=== PATIENT | male | born 1950 | race Caucasian/White ===

== ENCOUNTER → 2018-06-09 09:37 | Outpatient (CLI) | payer MEDICARE, OTHER, SELFPAY ==
[2018-06-08 09:40] VITALS: BMI 28.7
[2018-06-09 12:15] LABS: PSA,Total - Annual Screen 1.77 ng/mL (0.00-4.00)
--- OUTSIDE RECORDS SUMMARY | 2018-07-26 03:29 | XMS RPT_ITS ---
:1950 Author Organization OHIP Support Name Relationship Address Phone MEG, MELIUSSA Unavailable Unavailable + [place] [address] ABDIAZIZ, TERRY Unavailable Unavailable + [place] [address] [address] Un[address] + [place] [address] MEG, MELIUSSA Unavailable Unavailable + [place] [address] ABDIAZIZ, TERRY Unavailable Unavailable + [place] [address] [employer] Un[address] + [place] [address] MEG, MELIUSSA Unavailable Unavailable + [place] [address] ABDIAZIZ, TERRY Unavailable Unavailable + [place] [address] [employer] Un[address] + [place] [address] MEG, MELIUSSA Unavailable Unavailable + [place] [address] ABDIAZIZ, TERRY Unavailable Unavailable + [place] [address] [employer] Unavailable [address] + [place] [address] MEG, MELIUSSA Unavailable . + ., [place] . ABDIAZIZ, TERRY Unavailable . + ., [place] . [employer] Unavailable [address] + [place] [address] LUCIA PADGETT Unavailable [address] + [place] [address] [employer] Unavailable [address] + [place] [address] ABDIAZIZLUCIA PIZARRO Unavailable [address] + [place] [address] [employer] Unavailable [address] + [place] [address] Care Team Providers Name Role Phone COLBY GARCIA Attending Unavailable ROLO SCOTT Attending Unavailable Nohemy Foley Attending Unavailable Moustapha, Trenton Attending Unavailable Manjeet Jarrell Referring Unavailable Therese Maravilla Attending Unavailable Therese Maravilla Referring Unavailable Talampas, Colby Primary Care Unavailable Moustapha, Trenton Attending Unavailable Moustapha, Beattie Referring Unavailable Talampas, Colby Primary Care Unavailable Moustapha, Trenton Attending Unavailable Moustapha, Trenton Referring Unavailable Talampas, Colby Primary Care Unavailable WendiStoney vidal Attending Unavailable WendiStoney vidal Referring Unavailable Talampas, Colby Primary Care Unavailable Nolt, Sierra Attending Unavailable PROBLEMS PROBLEMS DATE TYPE CONDITION / CODE ATTENDING STATUS SOURCE 06/08/2018 Unknown R06.02 - Shortness Moustapha, Trenton Active [facility] of breath / Community R06.02(ICD-10) Hospital Repository 06/08/2018 Unknown 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, 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 7835-4077 Season Patient is identified by name and date of : Yes [] CONTRAINDICATIONS color enhanced section Age less than 6 months? No Allergy to eggs, chicken, chicken feathers, or chicken dander? No Allergy to thimerosal (a preservative) or formaldehyde, gelatin? No History of severe reaction to any vaccine component or a previous dose of influenza vaccination? No History of Guillain-Macon Syndrome within 6 weeks after a previous influenza vaccine? No Patient is not moderately or severely ill? No Current temperature greater or equal to 100.4F? No History of Bone Marrow Transplant prior 6 months or solid organ transplant in the past 3 months ? No History of fainting after a prior injection or medical procedure? No- ? If patient has fainted in the past, the CDC recommends sitting or lying down for 15 minutes after the vaccination. [] VERIFICATION color enhanced section Was the answer Yes for any of the above contraindications? No contraindications present. Acceptable to proceed with vaccine. Patient/guardian agrees the above answers are true to the best of their knowledge? Yes Flu vaccine information sheet given? Yes See immunization activity in [facility] for details of immunizations adminstered today. Patient age: [age] year old For The 4070-0498 Flu Season 6-35 months old: Fluzone 0.25 ml - IM (Preservative Free) 3 years of age: Fluzone 0.5 ml - IM (Preservative Free) 3 years and older: Fluzone 0.5 ml- IM-(with Preservatives) 65+ years old: 2-49 years old Fluzone High-Dose 0.5 ml - IM (Preservative Free) FLUMIST- intranasal REMEMBER: If patient is less than 9 years of age and this is the first vaccine of Influenza to be received in any flu season, they should receive a second dose in one months time. PROGRESS Observed: 06/24/2018 Status: COMPLETED Source: [facility] 2:45 PM [facility] [place] REPOSITORY HNO ID: [id number] Author: Colby Garcia Service: (none) Author Type: Physician Type: Progress Notes Filed: 07/17/2018 9:16 PM Note Text: HISTORY Alexandria Padgett is a 68 year old gentleman here to be formally established with me. PCP was Dr. Scott/FP. Dr. Davis--urology--planning on doing Urolift Nocturia at least 2 to 3 times a night. Stress test 07/[address] Gerard. Has noted lightheadedness after gets up to urinate after reclining. Also some MCCONNELL but transient. Getting over cold symptoms now. Cough--still some rattling in upper back. Has deviated septum--hard to breathe at night. Flonase OTC helps. Checks sugars every 2 to 3 days. Running 120 to 125 in AM. Burning pain in feet if sugars high but still less than 200. PAST MEDICAL HISTORY Diagnosis Date - Allergic rhinitis due to other allergen - Basal cell carcinoma Shoulder - Other and unspecified hyperlipidemia - Type II or unspecified type diabetes mellitus without mention of complication, not stated as uncontrolled Current Outpatient Prescriptions: blood sugar diagnostic (FREESTYLE LITE STRIPS) test strip NEW Butterfly Strips. Test blood sugar(s) 1 times daily. E11.9-type 2 diabetes mellitus, no insulin Lancets (ACCU-CHEK MULTICLIX LANCET) lancets check blood sugar as directed every other day 250.00 Non Insulin dependent lisinopril (PRINIVIL) 5 mg tablet Take 1 tablet by mouth once daily. metFORMIN (GLUCOPHAGE) 1,000 mg tablet Take 1 tab by mouth in am and 1/2 tablet in evening. sildenafil (REVATIO) 20 mg tablet For erectile dysfunction. take 1-2 tablets by mouth 1 hour prior to anticipated intercourse. fluticasone (FLONASE) 50 mcg/actuation nasal spray Use 2 Sprays in each nostril once daily. Rinse mouth after use. LORATADINE (CLARITIN ORAL) Take by mouth. multivitamins(DAILY MULTIPLE TAB) Take one(1) tablet daily. No current facility-administered medications for this visit. ALLERGIES Allergen Reactions - Penicillins Rash PAST SURGICAL HISTORY Procedure Laterality Date - COLONOSCOP W/ OR W/O [facility] SPEC 01/19/2014 Colonoscopy - EGD W/O OR W/BRUSH/WASH 04/19/14 EGD - PAST SURGICAL HISTORY OF ~1989 Sinus tumor (benign) R max. Visual impairment. 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 PHYSICAL EXAMINATION: Blood pressure 110/70, pulse 80, temperature 37.1 ?C (98.8 ?F), temperature source Tympanic, resp. rate 20, weight 93.4 kg (206 lb). Body mass index is 28.73 kg/m?. Last 5 Encounter BP Readings: Date: BP: 06/24/2018 110/70 10/08/2017 105/64 12/18/2016 121/76 09/17/2016 116/74 08/21/2016 144/88 Last 5 Encounter Wt Readings: Date: Wt: 06/24/2018 93.4 kg (206 lb) 10/08/2017 93 kg (205 lb) 12/18/2016 92.1 kg (203 lb) 09/17/2016 92.7 kg (204 lb 6.4 oz) 08/21/2016 90.7 kg (200 lb) General appearance: well appearing, in no acute distress, well-hydrated, well nourished Skin: Skin color, texture, turgor normal. No significant rashes or lesions. Head: Normal Eyes: Anicteric sclera. Pupils are equally round and reactive to light. Extraocular movements are intact. Ears: External ears normal. Canals clear. TM's unremarkable. Nose/Sinuses: negative Oropharynx: Lips, mucosa, and tongue normal. Teeth and gums normal. Oropharynx normal. Neck: Neck supple, no adenopathy; thyroid symmetric, normal size, no bruits. Lungs: Lungs clear to auscultation Heart: negative. RRR without murmur, gallop, or rubs. No ectopy. Abdomen: Abdomen soft, non-tender. Bowel sounds normal. No masses, organomegaly Extremities: Extremities normal. No deformities, edema, or skin discoloration. Good capillary refill. Musculoskeletal: grossly normal Peripheral pulses: Normal Neuro: Gait normal. Reflexes normal and symmetric. Sensation grossly intact. No gross focal neurological deficits. Feet:Shoes and socks removed, No deformities, ulcers, calluses, normal distal pulses and sensitive to 10 gm monofilament (though notes a little decreased at balls of feet) Component Latest Ref Rng AND Units 11/18/2015 12/24/2015 05/22/2016 12/15/2016 Glucose 74 - 99 mg/dL 123 (H) 126 (H) 119 (H) 131 (H) BUN 9 - 24 mg/dL 24 18 22 20 Creatinine 0.73 - 1.22 mg/dL 1.30 1.16 1.20 1.20 Sodium 136 - 144 mmol/L 130 (L) 135 139 136 Potassium 3.7 - 5.1 mmol/L 5.1 (H) 5.0 4.9 4.8 Chloride 97 - 105 mmol/L 95 (L) 100 100 100 CO2 22 - 30 mmol/L 24 24 25 23 Anion Gap 9 - 18 mmol/L 11 11 14 13 Calcium 8.5 - 10.2 mg/dL 9.2 9.4 9.3 9.5 eGFR- >60 >60 >60 >60 eGFR-All Other Races . 56 >60 >60 >60 Triglyceride 30 - 149 mg/dL 70 97 Cholesterol, Total 100 - 199 mg/dL 179 161 HDL Cholesterol >45 mg/dL 56 47 VLDL Cholesterol 6 - 40 mg/dL 14 19 LDL Cholesterol 60 - 129 mg/dL 109 95 Fasting Time hrs FASTING 11 TC:HDL Ratio 1.00 - 5.00 3.20 3.43 LDL:HDL Ratio 0.50 - 3.55 1.95 2.02 Non HDL Cholesterol 90 - 159 mg/dL 123 114 Creatinine, Ur Random (UCRR) 20 - 300 mg/dL 55.6 119.7 Albumin, Urine Random 0.0 - 23.0 mg/L 3.9 <12.0 Albumin/Creat Ratio 0 - 30 mg/g 7 Not calculated Hemoglobin A1C 4.3 - 5.6 % 5.8 (H) 6.3 (H) 5.7 (H) Estimated Average Glucose mg/dL 120 134 117 ASSESSMENT AND PLAN See diagnoses and orders Encounter Diagnosis ICD-10-CM 1. Controlled type 2 diabetes mellitus without complication, without long-term current use of insulin (HCC) E11.9 HGB A1C COMP METABOLIC PANEL ALBUMIN/CREAT RATIO RND UR HGB A1C BASIC METABOLIC PNL 2. Pure hypercholesterolemia E78.00 LIPID PANEL BASIC LIPID PANEL BASIC 3. Essential hypertension I10 COMP METABOLIC PANEL CBC BASIC METABOLIC PNL 4. 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 Need for vaccination Z23 INFLUENZA SEASONAL HIGH DOSE AGE 65+ 68 year old gentleman here to be formally established with me. History and medications reviewed. Epic updated as needed. Discussed procedure to be done by Dr. Davis. Will see cheese processor prior. Appears stable from medical issues for surgery. Noted 2017 labs done at [facility] showed good sugar control. Above issues addressed with patient. Patient involved in shared decision making for management of medical issues. Refills taken care of and meds adjusted as indicated after reviewed history, exam and labs. Health Maintenance reviewed. Updated record and/or ordered tests as recorded. Further evaluation and treatment as indicated. Encouraged on efforts at healthy diet and regular exercise and adequate sleep. Needs to keep working on diet and exercise with lifestyle changes for effective weight loss as well as control of DM, and control of BP and lipids. The majority of the visit was spent counseling and/or coordinating care for the patient. Tely-ei-uibz time was at least 45 minutes. Colby Garcia MD CNOV Observed: 06/24/2018 Status: COMPLETED Source: [place] 2:20 PM [facility] REPOSITORY Office Visit (INTMWS) ABDIAZIZALEXANDRIA Kraus ([id number]) 1950 M Date Time Provider Department 06/24/18 2:20 PM COLBY GARCIA INTMWS During your visit today, we recorded the following information about you: Temperature Pulse Respiration Blood pressure 98.8 degrees 80/minute 20/minute 110/70 Weight 93.4 kg Colby Garcia MD 07/17/2018 9:16 PM Signed HISTORY Alexandria Padgett is a 68 year old gentleman here to be formally established with me. PCP was Dr. Scott/BOBPrasanth Davis--urology--planning on doing Urolift Nocturia at least 2 to 3 times a night. Stress test 07/[address] Gerard. Has noted lightheadedness after gets up to urinate after reclining. Also some MCCONNELL but transient. Getting over cold symptoms now. Cough--still some rattling in upper back. Has deviated septum--hard to breathe at night. Flonase OTC helps. Checks sugars every 2 to 3 days. Running 120 to 125 in AM. Burning pain in feet if sugars high but still less than 200. PAST MEDICAL HISTORY Diagnosis Date - Allergic rhinitis due to other allergen - Basal cell carcinoma Shoulder - Other and unspecified hyperlipidemia - Type II or unspecified type diabetes mellitus without mention of complication, not stated as uncontrolled Current Outpatient Prescriptions: blood sugar diagnostic (FREESTYLE LITE STRIPS) test strip NEW Butterfly Strips. Test blood sugar(s) 1 times daily. E11.9-type 2 diabetes mellitus, no insulin Lancets (ACCU-CHEK MULTICLIX LANCET) lancets check blood sugar as directed every other day 250.00 Non Insulin dependent lisinopril (PRINIVIL) 5 mg tablet Take 1 tablet by mouth once daily. metFORMIN (GLUCOPHAGE) 1,000 mg tablet Take 1 tab by mouth in am and 1/2 tablet in evening. sildenafil (REVATIO) 20 mg tablet For erectile dysfunction. take 1-2 tablets by mouth 1 hour prior to anticipated intercourse. fluticasone (FLONASE) 50 mcg/actuation nasal spray Use 2 Sprays in each nostril once daily. Rinse mouth after use. LORATADINE (CLARITIN ORAL) Take by mouth. multivitamins(DAILY MULTIPLE TAB) Take one(1) tablet daily. No current facility-administered medications for this visit. ALLERGIES Allergen Reactions - Penicillins Rash PAST SURGICAL HISTORY Procedure Laterality Date - COLONOSCOP W/ OR W/O [facility] SPEC 01/19/2014 Colonoscopy - EGD W/O OR W/BRUSH/WASH 04/19/14 EGD - PAST SURGICAL HISTORY OF ~1989 Sinus tumor (benign) R max. Visual impairment. 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 PHYSICAL EXAMINATION: Blood pressure 110/70, pulse 80, temperature 37.1 ?C (98.8 ?F), temperature source Tympanic, resp. rate 20, weight 93.4 kg (206 lb). Body mass index is 28.73 kg/m?. Last 5 Encounter BP Readings: Date: BP: 06/24/2018 110/70 10/08/2017 105/64 12/18/2016 121/76 09/17/2016 116/74 08/21/2016 144/88 Last 5 Encounter Wt Readings: Date: Wt: 06/24/2018 93.4 kg (206 lb) 10/08/2017 93 kg (205 lb) 12/18/2016 92.1 kg (203 lb) 09/17/2016 92.7 kg (204 lb 6.4 oz) 08/21/2016 90.7 kg (200 lb) General appearance: well appearing, in no acute distress, well-hydrated, well nourished Skin: Skin color, texture, turgor normal. No significant rashes or lesions. Head: Normal Eyes: Anicteric sclera. Pupils are equally round and reactive to light. Extraocular movements are intact. Ears: External ears normal. Canals clear. TM's unremarkable. Nose/Sinuses: negative Oropharynx: Lips, mucosa, and tongue normal. Teeth and gums normal. Oropharynx normal. Neck: Neck supple, no adenopathy; thyroid symmetric, normal size, no bruits. Lungs: Lungs clear to auscultation Heart: negative. RRR without murmur, gallop, or rubs. No ectopy. Abdomen: Abdomen soft, non-tender. Bowel sounds normal. No masses, organomegaly Extremities: Extremities normal. No deformities, edema, or skin discoloration. Good capillary refill. Musculoskeletal: grossly normal Peripheral pulses: Normal Neuro: Gait normal. Reflexes normal and symmetric. Sensation grossly intact. No gross focal neurological deficits. Feet:Shoes and socks removed, No deformities, ulcers, calluses, normal distal pulses and sensitive to 10 gm monofilament (though notes a little decreased at balls of feet) Component Latest Ref Rng AND Units 11/18/2015 12/24/2015 05/22/2016 12/15/2016 Glucose 74 - 99 mg/dL 123 (H) 126 (H) 119 (H) 131 (H) BUN 9 - 24 mg/dL 24 18 22 20 Creatinine 0.73 - 1.22 mg/dL 1.30 1.16 1.20 1.20 Sodium 136 - 144 mmol/L 130 (L) 135 139 136 Potassium 3.7 - 5.1 mmol/L 5.1 (H) 5.0 4.9 4.8 Chloride 97 - 105 mmol/L 95 (L) 100 100 100 CO2 22 - 30 mmol/L 24 24 25 23 Anion Gap 9 - 18 mmol/L 11 11 14 13 Calcium 8.5 - 10.2 mg/dL 9.2 9.4 9.3 9.5 eGFR- >60 >60 >60 >60 eGFR-All Other Races . 56 >60 >60 >60 Triglyceride 30 - 149 mg/dL 70 97 Cholesterol, Total 100 - 199 mg/dL 179 161 HDL Cholesterol >45 mg/dL 56 47 VLDL Cholesterol 6 - 40 mg/dL 14 19 LDL Cholesterol 60 - 129 mg/dL 109 95 Fasting Time hrs FASTING 11 TC:HDL Ratio 1.00 - 5.00 3.20 3.43 LDL:HDL Ratio 0.50 - 3.55 1.95 2.02 Non HDL Cholesterol 90 - 159 mg/dL 123 114 Creatinine, Ur Random (UCRR) 20 - 300 mg/dL 55.6 119.7 Albumin, Urine Random 0.0 - 23.0 mg/L 3.9 <12.0 Albumin/Creat Ratio 0 - 30 mg/g 7 Not calculated Hemoglobin A1C 4.3 - 5.6 % 5.8 (H) 6.3 (H) 5.7 (H) Estimated Average Glucose mg/dL 120 134 117 ASSESSMENT AND PLAN See diagnoses and orders Encounter Diagnosis ICD-10-CM 1. Controlled type 2 diabetes mellitus without complication, without long-term current use of insulin (HCC) E11.9 HGB A1C COMP METABOLIC PANEL ALBUMIN/CREAT RATIO RND UR HGB A1C BASIC METABOLIC PNL 2. Pure hypercholesterolemia E78.00 LIPID PANEL BASIC LIPID PANEL BASIC 3. Essential hypertension I10 COMP METABOLIC PANEL CBC BASIC METABOLIC PNL 4. 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 Need for vaccination Z23 INFLUENZA SEASONAL HIGH DOSE AGE 65+ 68 year old gentleman here to be formally established with me. History and medications reviewed. Epic updated as needed. Discussed procedure to be done by Dr. Davis. Will see cheese processor prior. Appears stable from medical issues for surgery. Noted 2017 labs done at [facility] showed good sugar control. Above issues addressed with patient. Patient involved in shared decision making for management of medical issues. Refills taken care of and meds adjusted as indicated after reviewed history, exam and labs. Health Maintenance reviewed. Updated record and/or ordered tests as recorded. Further evaluation and treatment as indicated. Encouraged on efforts at healthy diet and regular exercise and adequate sleep. Needs to keep working on diet and exercise with lifestyle changes for effective weight loss as well as control of DM, and control of BP and lipids. The majority of the visit was spent counseling and/or coordinating care for the patient. Uzyu-so-csyv time was at least 45 minutes. MD Shelli Cortes LPN 07/17/2018 9:16 PM Signed 68 year old male here for INACTIVATED INFLUENZA VACCINE. 6891-3338 Season Patient is identified by name and date of : Yes [] CONTRAINDICATIONS color enhanced section Age less than 6 months? No Allergy to eggs, chicken, chicken feathers, or chicken dander? No Allergy to thimerosal (a preservative) or formaldehyde, gelatin? No History of severe reaction to any vaccine component or a previous dose of influenza vaccination? No History of Guillain-Macon Syndrome within 6 weeks after a previous influenza vaccine? No Patient is not moderately or severely ill? No Current temperature greater or equal to 100.4F? No History of Bone Marrow Transplant prior 6 months or solid organ transplant in the past 3 months ? No History of fainting after a prior injection or medical procedure? No- ? If patient has fainted in the past, the CDC recommends sitting or lying down for 15 minutes after the vaccination. [] VERIFICATION color enhanced section Was the answer Yes for any of the above contraindications? No contraindications present. Acceptable to proceed with vaccine. Patient/guardian agrees the above answers are true to the best of their knowledge? Yes Flu vaccine information sheet given? Yes See immunization activity in [facility] for details of immunizations adminstered today. Patient age: [age] year old For The 8420-0755 Flu Season 6-35 months old: Fluzone 0.25 ml - IM (Preservative Free) 3 years of age: Fluzone 0.5 ml - IM (Preservative Free) 3 years and older: Fluzone 0.5 ml- IM-(with Preservatives) 65+ years old: 2-49 years old Fluzone High-Dose 0.5 ml - IM (Preservative Free) FLUMIST- intranasal REMEMBER: If patient is less than 9 years of age and this is the first vaccine of Influenza to be received in any flu season, they should receive a second dose in one months time. Referring Provider: SELF [200] Allergies As of Date: 06/24/2018 Noted Allergy Reaction PENICILLINS 11/18/2005 2 - Rash Date Reviewed: 06/24/2018 Reviewed by: Shelli Fountain LPN - Fully Assessed Reason for Visit: Imm/Inj [58] Cmt: Flu Vaccine Primary Visit Diagnosis:Controlled type 2 diabetes mellitus without complication, without long-term current use of insulin (HCC) [E11.9] Other Visit Diagnoses:Pure hypercholesterolemia [E78.00] Essential hypertension [I10] BPH with obstruction/lower urinary tract symptoms [N40.1, N13.8] Need for vaccination [Z23] Order(s):HGB A1C [XEFHZ0K] Order #: [id number] FUTURE COMP METABOLIC PANEL [SQCMP] Order #: [id number] FUTURE CBC [SQCBC] Order #: [id number] FUTURE LIPID PANEL BASIC [SQLIPB] Order #: [id number] FUTURE ALBUMIN/CREAT RATIO RND UR [SQUACR] Order #: [id number] FUTURE fluticasone (FLONASE) 50 mcg/actuation nasal sprayUse 2 Sprays in each nostril once daily. Rinse mouth after use.Disp: 3 BottleRfl: 3 sildenafil (REVATIO) 20 mg tabletFor erectile dysfunction. take 1-2 tablets by mouth 1 hour prior to anticipated intercourse.Disp: 60 tabletRfl: 5 HGB A1C [JIHLD0S] Order #: [id number] FUTURE BASIC METABOLIC PNL [SQBMP] Order #: [id number] FUTURE LIPID PANEL BASIC [SQLIPB] Order #: [id number] FUTURE INFLUENZA SEASONAL HIGH DOSE AGE 65+ [[id number]] Order #: [id number] Prescriptions as of 06/24/2018 Sig: SILDENAFIL (ANTIHYPERTENSIVE)* For erectile dysfunction. chan* LISINOPRIL 5 MG TABLET Take 1 tablet by mouth once d* METFORMIN 1,000 MG TABLET Take 1 tab by mouth in am and* BLOOD SUGAR DIAGNOSTIC STRIPS NEW Butterfly Strips. Jeni* LANCETS check blood sugar as directed* FLUTICASONE 50 MCG/ACTUATION * Use 2 Sprays in each nostril * CLARITIN ORAL Take by mouth. DAILY MULTIPLE TABLET Take one(1) tablet daily. Medication notes this encounter DIAZEPAM 5 MG TABLET >> Colby Garcia MD 06/24/2018 3:08 PM done for procedure Problem List As Of Date 06/24/2018 Noted Resolved Controlled type 2 diabetes mellitus without com* More... Pure hypercholesterolemia [E78.00] ALLERGIC RHINITIS NEC [J30.89] Hypertension [I10] INVALID FOR* Erectile dysfunction [N52.9] INVALID FOR* Spondylolisthesis [M43.10] INVALID FOR* Low back pain [M54.5] INVALID FOR* Prescriptions ordered this encounter Disp Refills Start End FLUTICASONE 50 MCG/ACTUATION NASAL S* 3 Leonard* 3 06/24/2018 Route: EACH NOSTRIL Sig: Use 2 Sprays in each nostril once daily. Rinse mouth after use. SILDENAFIL (ANTIHYPERTENSIVE) 20 MG * 60 t* 5 06/24/2018 Sig: For erectile dysfunction. take 1-2 tablets by mouth 1 hour prior to anticipated intercourse. Medications Discontinued During This Encounter sildenafil, antihypertensive, (REVAT* 60 t* 2 01/07/2018 06/24/2018 Sig: For erectile dysfunction. take 1-2 tablets by mouth 1 hour prior to anticipated intercourse. Disc: Reason for discontinue is not on file. diazePAM (VALIUM) 5 mg tablet 2 ta* 0 08/18/2016 06/24/2018 Class: Call Rx Route: ORAL Sig: Take 1-2 tablets by mouth once daily. Disc: Reason for discontinue is not on file. Encounter Status:Closed by COLBY GARCIA MD on 07/17/18 CARDIOLOGY VISIT Observed: 06/16/2018 Status: F Source: [place] RE[place] 7:35 AM [facility] REPOSITORY [facility] [address] [place] [address] OFFICE VISIT Date of Service: MR#: [id number] Acct: [id number] Name: ALEXANDRIA PADGETT Rep #: [id number] : 1950 Provider: Nohemy Foley Age/Sex: 68/M Location: [facility] Status: Signed HPI HPI Details: ALEXANDRIA PADGETT, is a 68 M who presents to the office today for Intake Intake Visit Reasons: Amb Documentation Allergies Penicillins Allergy (Intermediate, Verified 06/08/18 08:13) Rash Medications blood sugar diagnostic strips See Dose Instructions .ROUTE .MEDSUPPLY #10 ea 06/02/18 [History Confirmed 06/08/18] diazepam 5 mg tablet 5 mg PO .COMPLEX tab 06/02/18 [History Confirmed 06/08/18] lancets See Dose Instructions .ROUTE .MEDSUPPLY #50 ea 06/02/18 [History Confirmed 06/08/18] lisinopril 5 mg tablet 5 mg PO DAILY 06/02/18 [History Confirmed 06/08/18] metformin 1,000 mg tablet 1,000 mg PO .COMPLEX 06/02/18 [History Confirmed 06/08/18] multivitamin tablet 1 tab PO DAILY 06/02/18 [History Confirmed 06/08/18] tadalafil 5 mg tablet 5 mg PO DAILY 06/02/18 [History Confirmed 06/08/18] PENDING SALE TO [facility] Medical History Right bundle branch block (Chronic) Essential hypertension (Chronic) Pure hypercholesterolemia (Chronic) Allergic rhinitis due to other allergen (Chronic) Erectile dysfunction (Chronic) Spondylolisthesis (Chronic) Type 2 diabetes mellitus (Chronic) History of basal cell carcinoma (Resolved) Surgical History History of colonoscopy (Resolved 01/19/14) History of esophagogastroduodenoscopy (EGD) (Resolved 04/19/14) History of sinus surgery (Resolved 1989) Family History Mother Cancer breast Father Cancer leukemia Social History Smoking Status: Never smoker alcohol intake: current alcohol intake frequency: other details: occasionally ROS Const Const: Negative for fatigue, weakness, difficulty sleeping, frequent falls, excessive sweating or headache(s) Eyes Eyes: Negative for loss of peripheral vision, transient loss of vision, blurry vision, tunnel vision or double vision ENT ENT: Negative for headache(s), dizziness, Nosebleed/epistaxis or balance problems Cardio Chest Pain: No Palpitations: No Edema: None Muscle aches with walking: None Resp Respiratory: Negative for SOB with activity, SOB at rest, SOB orthopnea\SOB lying down, paroxysmal nocturnal dyspnea or Cough GI GI: Negative nausea, heartburn, black,tarry stools or vomiting : Negative for hematuria Musc Musc: Negative for balance problems, muscle aches/ myalgia, muscle weakness or joint pain Skin Skin: Negative non-healing lesions, unusual bruising or rash Neuro Neuro: Negative for weakness, frequent falls, headache(s), blurry vision, double vision, dizziness, lightheadedness, orthostatic symptoms, near syncope, syncope or lack of coordination Dwight Hematologic/Lymphatic: Negative for easy bruising or easy bleeding Endo Endo: Negative for fatigue, excessive sweating or increased thirst/drinking Psych Psych: Negative for anxiety or depression Allergy Allergy/Immunology: Negative for hives, Negative for rash Coding Level of Care Code No Charge Coding Level of Care Code No Charge 06/16/18 8335 <Electronically signed by Trenton Gerard MD> Date Trenton Gerard MD Cosigner Signature: Date (if applicable) CC: Akosua Scott MD PSA,TOTAL - ANNUAL Collected: 06/09/2018 Status: F Source: [place] SCREEN 9:46 AM [facility] REPOSITORY TYPE CODE TESTS RESULT OUT OF RANGE REFERENCE UNITS LAB L501.9910 0.00-4.00 ng/mL Normal PSA,TOT 1.77 SCREEN Result Comment: This test was performed using the TPSA assay method for the Ufree chemistry system. Values obtained with different assay methods cannot be used interchangably. When changing PSA assays in the course of monitoring a patient, additional sequential testing should be carried out to confirm baseline values. Performed By: #### L501.9910 #### [facility] [address] [place], [address] CARDIOLOGY VISIT Observed: 06/08/2018 Status: F Source: [place] RE[place] 10:05 AM [facility] REPOSITORY [facility] [address] [place] [address] OFFICE VISIT Date of Service: 06/08/18 MR#: [id number] Acct: [id number] Name: ALEXANDRIA PADGETT Rep #: [id number] : 1950 Provider: Trenton Gerard MD Age/Sex: 68/M Location: [facility] [place] [place] Status: Signed HPI HPI Chief Complaint: Initial visit Details: ALEXANDRIA PADGETT, is a 68 M who presents to the office today for an initial evaluation and to evaluate his right bundle branch block. He has a history of hypertension, diabetes mellitus, hyperlipidemia, and a chronic right bundle branch block. He has no cardiac symptoms other than occasional shortness of breath when he gets up and goes up a flight of stairs. At this is not most of the time but it happens occasionally. He has had no dizziness or diaphoresis no near syncope or syncope. He has been compliant with his medications. An electrocardiogram which was done in September of this year demonstrates normal sinus rhythm with a leftward axis and a right bundle branch block. His physical exam here today demonstrates clear lung shields regular rate and rhythm and no pedal edema. His most recent lipid profile demonstrated a total cholesterol 161, HDL 47 and LDL of 95. Intake Vital Signs06/08/18 Height 5 ft 11 in 06/08/18 Weight: 206 lb 06/08/18 Body Mass Index (BMI) 28.7 06/08/18 Blood Pressure 120/78 06/08/18 Respiratory Rate 16 06/08/18 Pulse Rate 68 Intake Visit Reasons: self ref-d for right BBB Allergies Penicillins Allergy (Intermediate, Verified 06/08/18 08:13) Rash Medications blood sugar diagnostic strips See Dose Instructions .ROUTE .MEDSUPPLY #10 ea 06/02/18 [History Confirmed 06/08/18] diazepam 5 mg tablet 5 mg PO .COMPLEX tab 06/02/18 [History Confirmed 06/08/18] lancets See Dose Instructions .ROUTE .MEDSUPPLY #50 ea 06/02/18 [History Confirmed 06/08/18] lisinopril 5 mg tablet 5 mg PO DAILY 06/02/18 [History Confirmed 06/08/18] metformin 1,000 mg tablet 1,000 mg PO .COMPLEX 06/02/18 [History Confirmed 06/08/18] multivitamin tablet 1 tab PO DAILY 06/02/18 [History Confirmed 06/08/18] tadalafil 5 mg tablet 5 mg PO DAILY 06/02/18 [History Confirmed 06/08/18] PENDING SALE TO [facility] Medical History Right bundle branch block (Chronic) Essential hypertension (Chronic) Pure hypercholesterolemia (Chronic) Type 2 diabetes mellitus (Chronic) Allergic rhinitis due to other allergen (Chronic) Erectile dysfunction (Chronic) Spondylolisthesis (Chronic) History of basal cell carcinoma (Resolved) Surgical History History of colonoscopy (Resolved 01/19/14) History of esophagogastroduodenoscopy (EGD) (Resolved 04/19/14) History of sinus surgery (Resolved 1989) Family History Mother Cancer breast Father Cancer leukemia Social History Smoking Status: Never smoker alcohol intake: current alcohol intake frequency: other details: occasionally ROS Const Const: Negative for fatigue, weakness, difficulty sleeping, frequent falls, excessive sweating or headache(s) Eyes Eyes: Negative for loss of peripheral vision, transient loss of vision, blurry vision, tunnel vision or double vision ENT ENT: Negative for headache(s), dizziness, Nosebleed/epistaxis or balance problems Cardio Chest Pain: No Palpitations: No Edema: None Muscle aches with walking: None Resp Respiratory: Positive for SOB with activity (When climbing stairs); negative for SOB at rest, SOB orthopnea\SOB lying down, paroxysmal nocturnal dyspnea or Cough GI GI: Negative nausea, heartburn, black,tarry stools or vomiting : Negative for hematuria Musc Musc: Negative for balance problems, muscle aches/ myalgia, muscle weakness or joint pain Skin Skin: Negative non-healing lesions, unusual bruising or rash Neuro Neuro: Positive for orthostatic symptoms; negative for weakness, frequent falls, headache(s), blurry vision, double vision, dizziness, lightheadedness, near syncope, syncope or lack of coordination Dwight Hematologic/Lymphatic: Negative for easy bruising or easy bleeding Endo Endo: Negative for fatigue, excessive sweating or increased thirst/drinking Psych Psych: Negative for anxiety or depression Allergy Allergy/Immunology: Negative for hives, Negative for rash Cardiology Exam Const Appearance: cooperative, healthy appearing, well developed, well groomed and no acute distress Nutritional Appearance: well nourished and average body habitus Orientation: alert, awake and oriented x3 Head Head: normal to inspection, normocephalic and atraumatic Ears: hearing grossly normal bilaterally and external ears normal Nose: external nose normal, nasal mucous membranes and turbinates normal, nares normal, septum normal, no nasal discharge Face and Sinus: face symmetric Mouth: oral mucosae normal, tongue normal, oropharynx normal and moist mucous membranes Teeth and gingiva: dentition normal Throat: posterior oropharynx normal, tonsils normal and uvula midline Eyes General: appearance normal, both eyes and all related structures Eyelids: eyelids normal Conjunctivae: conjunctivae normal Pupils: PERRL, normal by confrontation and accommodation normal EOM: EOM intact bilaterally Neck Neck: normal visual inspection, trachea midline and no JVD JVD: +5 Carotids: normal carotid upstroke and bounding pulses Chest Chest inspection: normal inspection of the chest, symmetric chest movement and normal respiratory effort Auscultation: Bilateral: Clear to Auscultation Cardio Palpation: normal PMI Rate: regular rate Rhythm: regular rhythm Heart sounds: S1 normal, S2 normal and normal, physiologic split S2; negative rub, gallop or murmur GI GI: normal to inspection, soft, no hepatosplenomegaly and bowel sounds present Neuro General: alert, awake, oriented x3, no focal sensory deficit, gait normal and moves all extremities Skin Skin: no rashes or lesions noted Extremities Pulses: Normal: Right Femoral Pulse, Left Femoral Pulse, Right Dorsalis Pedis Pulse, Left Dorsalis Pedis Pulse, Right Posterior Tibial Pulse, Left Posterior Tibial Pulse, Right Radial Pulse, Left Radial Pulse Lower Extremity Edema: None: Bilateral Musculoskel Musculoskeletal: No joint tenderness Psych Psychological: normal affect Assessment AND Plan 1. Right bundle branch block I45.10 Plan He does have a right bundle branch block which is chronic. At this time my recommendation would be for us to continue to follow it with serial yearly cardiograms. An echocardiogram should also be performed. 2. Essential hypertension I10 Plan He does have a history of hypertension which is well controlled on the lisinopril at this time I would not recommend that we make any other changes. 3. Shortness of breath R06.02 Plan He does have a history of exertional dyspnea. The etiology is not clear. I would like us to obtain an echocardiogram to assess his left ventricular function as well as a an exercise myocardial perfusion stress test in case this may be related to ischemia. This is especially as he is a diabetic. Depending on the results further recommendations will be made. Overall he appears to be in a state of health otherwise. Thank you for allowing me to participate in the care of your patient. 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) Coding Level of Care Code Off vis,new,level 4 Diagnoses Right bundle branch block I45.10 Essential hypertension I10 Shortness of breath R06.02 Coding Level of Care Code Off vis,new,level 4 Diagnoses Right bundle branch block I45.10 Essential hypertension I10 Shortness of breath R06.02 06/08/18 1005 <Electronically signed by Trenton Gerard MD> Date Trenton Gerard MD Cosigner Signature: Date (if applicable) CC: Colby Garcia MD PROGRESS Observed: 02/25/2018 Status: COMPLETED Source: [place] 11:38 AM [facility] REPOSITORY HNO ID: [id number] Author: Selene Collins Service: (none) Author Type: Teacher Theater Arts Type: Progress Notes Filed: 02/25/2018 11:40 AM Note Text: Patient Outreach - Network Navigator PCP Status ? Payer and EPIC PCP validation EPIC - Correct Care Gaps DM - Eye Exam: Last retinal or dilated eye exam result: Appointment scheduled for 03/21/18 Time spent tonal regulator: 5 min GINA Yu (Network Navigator) CNPTOUTREACH Observed: 02/25/2018 Status: COMPLETED Source: [place] 12:00 AM [facility] REPOSITORY Patient Outreach (NETNAV) ALEXANDRIA PADGETT ([id number]) 1950 M Date Time Provider Department 02/25/18 ROLO SCOTT During your visit today, we recorded the following information about you: GINA Yu (Network Navigator) 02/25/2018 11:40 AM Signed Patient Outreach - Network Navigator PCP Status ? Payer and EPIC PCP validation EPIC - Correct Care Gaps DM - Eye Exam: Last retinal or dilated eye exam result: Appointment scheduled for 03/21/18 Time spent tonal regulator: 5 min GINA Yu (Network Navigator) Allergies As of Date: 02/25/2018 Noted Allergy Reaction PENICILLINS 11/18/2005 2 - Rash Date Reviewed: 12/18/2016 Reviewed by: Yeimi ([facility]) CONOR Saleh - Fully Assessed Reason for Visit: Patient Navigation [4084] Prescriptions as of 02/25/2018 Sig: SILDENAFIL (ANTIHYPERTENSIVE)* For erectile dysfunction. chan* LISINOPRIL 5 MG TABLET Take 1 tablet by mouth once d* METFORMIN 1,000 MG TABLET Take 1 tab by mouth in am and* BLOOD SUGAR DIAGNOSTIC STRIPS NEW Butterfly Strips. Jeni* DIAZEPAM 5 MG TABLET Take 1-2 tablets by mouth onc* CLARITIN ORAL Take by mouth. LANCETS check blood sugar as directed* DAILY MULTIPLE TABLET Take one(1) tablet daily. Problem List As Of Date 02/25/2018 Noted Resolved Controlled type 2 diabetes mellitus without com* More... Pure hypercholesterolemia [E78.00] ALLERGIC RHINITIS NEC [J30.89] Hypertension [I10] INVALID FOR* Erectile dysfunction [N52.9] INVALID FOR* Spondylolisthesis [M43.10] INVALID FOR* Low back pain [M54.5] INVALID FOR* Encounter Status:Closed by TAD FUENTES (NETWORK NAVIGATOR)SELENE on 02/25/18 PROGRESS Observed: 10/10/2017 Status: COMPLETED Source: [place] 9:26 AM [facility] REPOSITORY HNO ID: [id number] Author: Rolo Scott Service: (none) Author Type: Physician Type: Progress Notes Filed: 10/13/2017 7:30 AM Note Text: Chief Complaint Patient presents with: BP follow up HPI Alexandria Padgett is a 67 year old male who presents here today for follow-up of well-controlled diabetes, hyperlipidemia. Is getting along very well. Continues to be quite active.. ACTIVE PROBLEM LIST Controlled Type 2 Diabetes Mellitus Without Complication, Without Long-Term Current Use of Insulin (Hcc) Pure Hypercholesterolemia Allergic Rhinitis Due to Other Allergen Hypertension Erectile Dysfunction Spondylolisthesis Low Back Pain Recalls a history of right bundle branch block. He mentioned this to Dr. Gerard suggested an EKG and potentially cardiology consult would be appropriate. 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 Previous Medical History PAST MEDICAL HISTORY Diagnosis Date - Allergic rhinitis due to other allergen - Basal cell carcinoma Shoulder - Other and unspecified hyperlipidemia - Type II or unspecified type diabetes mellitus without mention of complication, not stated as uncontrolled Previous Surgical History PAST SURGICAL HISTORY Procedure Laterality Date - COLONOSCOP W/ OR W/O [facility] SPEC 01/19/2014 Colonoscopy - EGD W/O OR W/BRUSH/WASH 04/19/14 EGD - PAST SURGICAL HISTORY OF ~1989 Sinus tumor (benign) R max. Visual impairment. Family History FAMILY HISTORY Problem Relation Age of Onset - Breast Cancer Mother - leukemia [Other] [OTHER] Father Patient Allergies ALLERGIES Allergen Reactions - Penicillins Rash Current Medications Current Outpatient Prescriptions on File Prior to Visit: metFORMIN (GLUCOPHAGE) 1,000 mg tablet Take 1 tab by mouth in am and 1/2 tablet in evening. blood sugar diagnostic (FREESTYLE LITE STRIPS) test strip NEW Butterfly Strips. Test blood sugar(s) 1 times daily. E11.9-type 2 diabetes mellitus, no insulin Tadalafil (CIALIS) 5 mg tablet Take 5 mg by mouth once daily. diazePAM (VALIUM) 5 mg tablet Take 1-2 tablets by mouth once daily. LORATADINE (CLARITIN ORAL) Take by mouth. Lancets (ACCU-CHEK MULTICLIX LANCET) lancets check blood sugar as directed every other day 250.00 Non Insulin dependent multivitamins(DAILY MULTIPLE TAB) Take one(1) tablet daily. No current facility-administered medications on file prior to visit. 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 HEENT: No sinus congestion, earache, sore throat. Cardiac: No chest pain, palpitations, shortness of breath. There are no palpitations or other cardiac symptoms Resp: No cough, wheeze. GI: No reflux symptoms, food intolerance, bowel changes. : No urinary frequency, dysuria. MS: No pain or joint complaints. PHYSICAL EXAMINATION BP 105/64 Pulse 80 Temp 36.6 ?C (97.9 ?F) Resp 16 Ht 180.3 cm (5' 11) Wt 93 kg (205 lb) SpO2 98% BMI 28.59 kg/m2 General: Alert and oriented, no distress, pleasant and cooperative. Heart: Regular, normal S1 and S2, no murmurs, rubs, or gallops Lungs: Clear to auscultation bilaterally Abdomen: Benign Extremities: Feet/ankles without edema, posterior tibial pulses full and symmetrical Health Maintenance List HBA1C due on 06/16/2017 URINE ALBUMIN CREATININE RATIO due on 12/15/2017 LDL due on 12/15/2017 DIABETIC FOOT EXAM due on 12/27/2017 DILATED RETINAL EXAM due on 03/15/2018 COLORECTAL CANCER SCREENING,SEE MODIFIER due on 01/20/2024 TETANUS due on 12/18/2026 PROSTATE CANCER SCREENING DISCUSSION Completed ADULT PREVNAR-13 Completed INFLUENZA Completed HEPATITIS C SCREENING Completed PNEUMOVAX AGE 65 AND OVER WITH 5YR LOOKBACK Completed Data reviewed Lab Results Component Value Date/Time CHOL 161 12/15/2016 07:30 AM HDL 47 12/15/2016 07:30 AM LDL 95 12/15/2016 07:30 AM HBA1C 5.7 (H) 12/15/2016 07:30 AM PSA 1.33 10/10/2014 08:05 AM Assessment/Plan: (E11.9) Controlled type 2 diabetes mellitus without complication, without long-term current use of insulin (HCC) (primary encounter diagnosis) Comment: He is getting along well. Plan: COMP METABOLIC PANEL, LIPID PANEL BASIC, HGB A1C Lab is ordered, will get it drawn in [place]. (E78.00) Pure hypercholesterolemia Comment: Has been well controlled Plan: LIPID PANEL BASIC November (I10) Essential hypertension Comment: Adequate control, there were a few high blood pressures on the 2.5 mg dose. Plan: Continue regimen, EKG obtained today confirming the right bundle branch block Continue the 5 mg lisinopril. (I45.10) RBBB Comment: As above Plan: CONSULT TO CARDIOLOGY EKG does confirm right bundle Signed Prescriptions Disp Refills lisinopril (PRINIVIL) 5 mg tablet 90 tablet 3 Sig: Take 1 tablet by mouth once daily. RTO: Labs are ordered for November but I do not anticipate him needing an appointment with me right afterwards. 6 months otherwise as needed. Rolo Scott MD CNOV Observed: 10/08/2017 Status: COMPLETED Source: [place] 3:00 PM [facility] REPOSITORY Office Visit (WADS) ALEXANDRIA PADGETT ([id number]) 1950 M Date Time Provider Department 10/08/17 3:00 PM ROLO SCOTT During your visit today, we recorded the following information about you: Temperature Pulse Respiration Blood pressure 97.9 degrees 80/minute 16/minute 105/64 Weight Height 93 kg 1.803 m Rolo Scott MD 10/13/2017 7:30 AM Signed Chief Complaint Patient presents with: BP follow up HPI Alexandria Padgett is a 67 year old male who presents here today for follow-up of well-controlled diabetes, hyperlipidemia. Is getting along very well. Continues to be quite active.. ACTIVE PROBLEM LIST Controlled Type 2 Diabetes Mellitus Without Complication, Without Long-Term Current Use of Insulin (Hcc) Pure Hypercholesterolemia Allergic Rhinitis Due to Other Allergen Hypertension Erectile Dysfunction Spondylolisthesis Low Back Pain Recalls a history of right bundle branch block. He mentioned this to Dr. Gerard suggested an EKG and potentially cardiology consult would be appropriate. 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 Previous Medical History PAST MEDICAL HISTORY Diagnosis Date - Allergic rhinitis due to other allergen - Basal cell carcinoma Shoulder - Other and unspecified hyperlipidemia - Type II or unspecified type diabetes mellitus without mention of complication, not stated as uncontrolled Previous Surgical History PAST SURGICAL HISTORY Procedure Laterality Date - COLONOSCOP W/ OR W/O [facility] SPEC 01/19/2014 Colonoscopy - EGD W/O OR W/BRUSH/WASH 04/19/14 EGD - PAST SURGICAL HISTORY OF ~1989 Sinus tumor (benign) R max. Visual impairment. Family History FAMILY HISTORY Problem Relation Age of Onset - Breast Cancer Mother - leukemia [Other] [OTHER] Father Patient Allergies ALLERGIES Allergen Reactions - Penicillins Rash Current Medications Current Outpatient Prescriptions on File Prior to Visit: metFORMIN (GLUCOPHAGE) 1,000 mg tablet Take 1 tab by mouth in am and 1/2 tablet in evening. blood sugar diagnostic (FREESTYLE LITE STRIPS) test strip ANDquot;NEW ButterflyANDquot; Strips. Test blood sugar(s) 1 times daily. E11.9-type 2 diabetes mellitus, no insulin Tadalafil (CIALIS) 5 mg tablet Take 5 mg by mouth once daily. diazePAM (VALIUM) 5 mg tablet Take 1-2 tablets by mouth once daily. LORATADINE (CLARITIN ORAL) Take by mouth. Lancets (ACCU-CHEK MULTICLIX LANCET) lancets check blood sugar as directed every other day 250.00 Non Insulin dependent multivitamins(DAILY MULTIPLE TAB) Take one(1) tablet daily. No current facility-administered medications on file prior to visit. 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 HEENT: No sinus congestion, earache, sore throat. Cardiac: No chest pain, palpitations, shortness of breath. There are no palpitations or other cardiac symptoms Resp: No cough, wheeze. GI: No reflux symptoms, food intolerance, bowel changes. : No urinary frequency, dysuria. MS: No pain or joint complaints. PHYSICAL EXAMINATION BP 105/64 Pulse 80 Temp 36.6 ?C (97.9 ?F) Resp 16 Ht 180.3 cm (5' 11ANDquot;) Wt 93 kg (205 lb) SpO2 98% BMI 28.59 kg/m2 General: Alert and oriented, no distress, pleasant and cooperative. Heart: Regular, normal S1 and S2, no murmurs, rubs, or gallops Lungs: Clear to auscultation bilaterally Abdomen: Benign Extremities: Feet/ankles without edema, posterior tibial pulses full and symmetrical Health Maintenance List HBA1C due on 06/16/2017 URINE ALBUMIN CREATININE RATIO due on 12/15/2017 LDL due on 12/15/2017 DIABETIC FOOT EXAM due on 12/27/2017 DILATED RETINAL EXAM due on 03/15/2018 COLORECTAL CANCER SCREENING,SEE MODIFIER due on 01/20/2024 TETANUS due on 12/18/2026 PROSTATE CANCER SCREENING DISCUSSION Completed ADULT PREVNAR-13 Completed INFLUENZA Completed HEPATITIS C SCREENING Completed PNEUMOVAX AGE 65 AND OVER WITH 5YR LOOKBACK Completed Data reviewed Lab Results Component Value Date/Time CHOL 161 12/15/2016 07:30 AM HDL 47 12/15/2016 07:30 AM LDL 95 12/15/2016 07:30 AM HBA1C 5.7 (H) 12/15/2016 07:30 AM PSA 1.33 10/10/2014 08:05 AM Assessment/Plan: (E11.9) Controlled type 2 diabetes mellitus without complication, without long-term current use of insulin (HCC) (primary encounter diagnosis) Comment: He is getting along well. Plan: COMP METABOLIC PANEL, LIPID PANEL BASIC, HGB A1C Lab is ordered, will get it drawn in [place]. (E78.00) Pure hypercholesterolemia Comment: Has been well controlled Plan: LIPID PANEL BASIC November (I10) Essential hypertension Comment: Adequate control, there were a few high blood pressures on the 2.5 mg dose. Plan: Continue regimen, EKG obtained today confirming the right bundle branch block Continue the 5 mg lisinopril. (I45.10) RBBB Comment: As above Plan: CONSULT TO CARDIOLOGY EKG does confirm right bundle Signed Prescriptions Disp Refills lisinopril (PRINIVIL) 5 mg tablet 90 tablet 3 Sig: Take 1 tablet by mouth once daily. RTO: Labs are ordered for November but I do not anticipate him needing an appointment with me right afterwards. 6 months otherwise as needed. Rolo Scott MD Referring Provider: SELF [200] Allergies As of Date: 10/08/2017 Noted Allergy Reaction PENICILLINS 11/18/2005 2 - Rash Date Reviewed: 12/18/2016 Reviewed by: Yeimi ([facility]) CONOR Saleh - Fully Assessed Reason for Visit: BP follow up [Other] Primary Visit Diagnosis:Controlled type 2 diabetes mellitus without complication, without long-term current use of insulin (HCC) [E11.9] Other Visit Diagnoses:Pure hypercholesterolemia [E78.00] Essential hypertension [I10] RBBB [I45.10] Order(s):lisinopril (PRINIVIL) 5 mg tabletTake 1 tablet by mouth once daily.Disp: 90 tabletRfl: 3 COMP METABOLIC PANEL [SQCMP] Order #: [id number] FUTURE LIPID PANEL BASIC [SQLIPB] Order #: [id number] FUTURE HGB A1C [QFWGT4V] Order #: [id number] FUTURE CONSULT TO CARDIOLOGY [9004] Order #: [id number]: 1 ECG COMPLETE W INTERPRETATION [ECG01] Order #: [id number] FUTURE Prescriptions as of 10/08/2017 Sig: METFORMIN 1,000 MG TABLET Take 1 tab by mouth in am and* BLOOD SUGAR DIAGNOSTIC STRIPS NEW Butterfly Strips. Jeni* TADALAFIL 5 MG TABLET Take 5 mg by mouth once daily. DIAZEPAM 5 MG TABLET Take 1-2 tablets by mouth onc* CLARITIN ORAL Take by mouth. LANCETS check blood sugar as directed* DAILY MULTIPLE TABLET Take one(1) tablet daily. LISINOPRIL 5 MG TABLET Take 1 tablet by mouth once d* Medication notes this encounter LISINOPRIL 2.5 MG TABLET >> Tammy Bar Ma 10/08/2017 2:51 PM >> TAMMY BAR MA WedOct 08, 2017 2:51 PM Patient is taking 5mg Problem List As Of Date 10/08/2017 Noted Resolved Controlled type 2 diabetes mellitus without com* More... Pure hypercholesterolemia [E78.00] ALLERGIC RHINITIS NEC [J30.89] Hypertension [I10] INVALID FOR* Erectile dysfunction [N52.9] INVALID FOR* Spondylolisthesis [M43.10] INVALID FOR* Low back pain [M54.5] INVALID FOR* Prescriptions ordered this encounter Disp Refills Start End LISINOPRIL 5 MG TABLET 90 t* 3 10/08/2017 Route: ORAL Sig: Take 1 tablet by mouth once daily. Medications Discontinued During This Encounter lisinopril 2.5 mg tablet 90 t* 1 07/27/2017 10/08/2017 Sig: TAKE ONE TABLET BY MOUTH ONCE DAILY Disc: Reason for discontinue is not on file. Encounter Status:Closed by AKOSUA SCOTT MD on 10/13/17 OBSOLETE Observed: 07/27/2017 Status: COMPLETED Source: [facility] 12:00 AM [facility] [place] PADGETT ([id number]) 1950 M Date Time Provider Department 07/27/17 ROLO SCOTT During your visit today, we recorded the following information about you: Miracle Decker Ma 07/27/2017 8:07 AM Signed Patient has been identified by name and date of : Yes RX INSTRUCTIONS: Patient aware RX will be sent to pharmacy. No need to notify patient. Patient phones requesting refills as follows: Please verify quantity and correct dosage instructions before approval. Pending Prescriptions Disp Refills LISINOPRIL 2.5 MG TABLET 90 tablet 1 Sig: TAKE ONE TABLET BY MOUTH ONCE DAILY MIRI: Yes Please review and advise. Miracle Scott MD 07/27/2017 10:29 AM Signed The following approved medication requests have been transmitted electronically. Signed Prescriptions Disp Refills lisinopril 2.5 mg tablet 90 tablet 1 Sig: TAKE ONE TABLET BY MOUTH ONCE DAILY MIRI: No Authorizing Provider: ROLO SCOTT MD Allergies As of Date: 07/27/2017 Noted Allergy Reaction PENICILLINS 11/18/2005 2 - Rash Date Reviewed: 12/18/2016 Reviewed by: Yeimi ([facility]) CONOR Saleh - Fully Assessed Reason for Visit: Refill Request [94] Order(s):lisinopril 2.5 mg tabletTAKE ONE TABLET BY MOUTH ONCE DAILYDisp: 90 tabletRfl: 1 Prescriptions as of 07/27/2017 Sig: LISINOPRIL 2.5 MG TABLET TAKE ONE TABLET BY MOUTH ONCE* BLOOD SUGAR DIAGNOSTIC STRIPS NEW Butterfly Strips. Jeni* TADALAFIL 5 MG TABLET Take 5 mg by mouth once daily. DIAZEPAM 5 MG TABLET Take 1-2 tablets by mouth onc* METFORMIN 1,000 MG TABLET Take 1 tab by mouth in am and* CLARITIN ORAL Take by mouth. LANCETS check blood sugar as directed* DAILY MULTIPLE TABLET Take one(1) tablet daily. Problem List As Of Date 07/27/2017 Noted Resolved Controlled type 2 diabetes mellitus without com* More... Pure hypercholesterolemia [E78.00] ALLERGIC RHINITIS NEC [J30.89] Hypertension [I10] INVALID FOR* Erectile dysfunction [N52.9] INVALID FOR* Spondylolisthesis [M43.10] INVALID FOR* Low back pain [M54.5] INVALID FOR* Prescriptions ordered this encounter Disp Refills Start End LISINOPRIL 2.5 MG TABLET 90 t* 1 07/27/2017 Sig: TAKE ONE TABLET BY MOUTH ONCE DAILY Medications Discontinued During This Encounter lisinopril 2.5 mg tablet 90 t* 1 12/03/2016 07/27/2017 Sig: TAKE ONE TABLET BY MOUTH ONCE DAILY Disc: Reason for discontinue is not on file. Encounter Status:Closed by DAPHNE SOLIS on 07/27/17 ALLERGIES ALLERGIES DATE TYPE / CODE NAME / CODE REACTION SEVERITY SOURCE 06/08/2018 Drug Penicillins/[id number] Rash [place] Allergy/416 0476(RXNORM) Community 054768([facility] ED CT) Repository 11/18/2005 Drug PENICILLINS RASH [facility] Class/47075 [address] [place] [facility] ENCOUNTERS ENCOUNTERS ADMIT/DISCHARGE ACCOUNT ADMITTING ENCOUNTER LOCATION SOURCE NUMBER CLASS 07/19/2018 [id number] [facility] Rep[facility] 07/11/2018 [id number] [facility] Rep[facility] 07/04/2018 [id number] [facility] Repository 06/24/2018/07/19/19 [id number] Ambulatory [address] Repository 06/09/2018 [id number] [facility] ing:[facility] Repository 06/08/2018/06/08/20 [id number] Ambulatory BMSBuilding:Jamel Muller [address] [facility] Repository 06/08/2018 [id number] Ambulatory BMSBuilding:B [place] [facility] Repository 06/02/2018 [id number] Ambulatory BMSBuilding:B [place] Repository 10/08/2017/10/14/19 [id number] Ambulatory [address] Repository PAYERS PAYERS ENCOUNTER GUARANTOR PAYER SUBSCRIBER SOURCE 07/19/2018 [place] Kraus Primary [place] [id number] Insurance:MEDICARE [place]DOB: [facility] [id number] Number: Repository [id number]: [phone] [id number] [phone] () Date:2018-07-19 07/19/2018 Secondary [place] Muller Insurance:MEDICAL CHARL[place]DOB: [facility] [id number] Hospital Number: Repository [id number] Date:[id number] [address]ZS: 07/19/2018 Tertiary NOT GIVENUNK [place] Insurance:SELF PAY [facility] Hospital Number: Effective Repository Date:2018-07-19 07/11/2018 [place] A Primary [place] A [place] [id number] Insurance:MEDICARE [place]DOB: [facility] [id number] Number: Repository [id number]: 330 [id number] [phone] () Date:2018-07-05 07/11/2018 Secondary [place] A [place] Insurance:MEDICAL CHARLTONDOB: [facility] [id number] Hospital Number: Repository [id number] Date:[id number] [address]GA: 07/11/2018 Tertiary NOT GIVENUNK [place] Insurance:SELF PAY [facility] Hospital Number: Effective Repository Date:2018-07-05 07/04/2018 [place] A Primary [place] Nayana Muller [id number] Insurance:MEDICARE CHARLTONDOB: [facility] [id number] Number: Repository [id number]: 330 [id number] [phone] () Date:2018-06-08 07/04/2018 Secondary [place] A [place] Insurance:MEDICAL CHARL[place]DOB: [facility] [id number] Hospital Number: Repository [id number] Date:[id number] [address] [address]IS: 07/04/2018 Tertiary NOT GIVENUNK [place] Insurance:SELF PAY [facility] Hospital Number: Effective Repository Date:2018-06-08 06/09/2018 [place] A Primary [place] A [place] [id number] Insurance:MEDICARE CHARLTONDOB: [facility] HENAO PART A [facility] [id number] Number: Repository [id number]: 330 [id number] (HP) Date:2018-06-09 06/09/2018 Secondary [place] A [place] Insurance:MEDICAL CHARLTONDOB: [facility] [id number] Hospital Number: Repository [id number] Date:[id number] [address]RE: 06/09/2018 Tertiary NOT GIVENUNK [place] Insurance:SELF PAY [facility] Hospital Number: Effective Repository Date:2018-06-09 06/08/2018 [place] A Primary [place] Nayana Muller [id number] Insurance:MEDICARE CHARLTONDOB: [facility] PART A [facility] [id number] Number: Repository [id number]: 330 [id number] (HP) Date:2018-05-26 06/08/2018 Secondary [place] A [place]oh[place] Insurance:MEDICAL CHARLTONDOB: [facility] [id number] Hospital Number: Repository [id number] Date:[id number] [address]WR: 06/08/2018 Tertiary NOT GIVENUNK [place] Insurance:SELF PAY [facility] Hospital Number: Effective Repository Date:2018-06-03 06/08/2018 [place] A Primary [place] Muller [id number] Insurance:MEDICARE CHARLTONDOB: [facility] PART A [facility] [id number] Number: Repository [id number]: 330 [id number] (HP) Date:2018-06-08 06/08/2018 Secondary [place] A [place] Insurance:MEDICAL CHARLTONDOB: [facility] [id number] Hospital Number: Repository [id number] Date:[id number] [address] [address]UV: 06/08/2018 Tertiary NOT GIVENUNK [place] Insurance:SELF PAY [facility] Number: Effective Repository Date:2018-06-08 06/02/2018 [place] A Primary [place] Muller [id number] Insurance:MEDICARE [place]DOB: [facility] [place] PART A [facility] [id number] Number: Repository [id number]: [phone] [id number] () Date:2018-06-02 06/02/2018 Secondary [place] Muller Insurance:MEDICAL CHARLTONDOB: [facility] [id number] Hospital Number: Repository [id number] Date:[id number] [address] [place] [address]AF: 06/02/2018 Tertiary NOT GIVENUNK [place] Insurance:SELF PAY [facility] Hospital Number: Effective Repository Date:2018-06-02
== END ==
PROVIDERS: Family Provider Internal Medicine; PCP Internal Medicine; Referring Provider Nurse Practitioner Adult Health; Visit Provider Nurse Practitioner Adult Health
DX: Z12.5 Encounter for screening for malignant neoplasm of prostate (principal)
CPT/HCPCS: 36415; 84153; G0103

== ENCOUNTER → 2018-07-19 15:54 | Outpatient (CLI) | payer MEDICARE, OTHER, SELFPAY ==
[2018-06-08 09:40] VITALS: BMI 28.7
--- OUTSIDE RECORDS SUMMARY | 2018-09-20 22:07 | XMS RPT_ITS ---
:1950 Author Organization OHIP Support Name Relationship Address Phone MEG, MELIUSSA Unavailable Unavailable + [place] [address] DAYRON, TERRY Unavailable Unavailable + [place] [address] [address] Un[address] + [place] [address] MEG, MELIUSSA Unavailable Unavailable + [place] [address] DAYRON, TERRY Unavailable Unavailable + [place] [address] [address] Un[address] + [place] [address] MEG, MELIUSSA Unavailable Unavailable + [place] [address] DAYRON, TERRY Unavailable Unavailable + [place] [address] [address] Un[address] + [place] [address] MEG, MELIUSSA Unavailable Unavailable + [place] [address] DAYRON, TERRY Unavailable Unavailable + [place] [address] [employer] Unavailable [address] + [place] [address] MEG, MELIUSSA Unavailable . + ., [place] . DAYRON, TERRY Unavailable . + ., [place] . [employer] Unavailable [address] + [place] [address] LUCIA PADGETT Unavailable [address] + [place] [address] [employer] Unavailable [address] + [place] [address] LUCIA PADGETT Unavailable [address] + [place] [address] [employer] Unavailable [address] + [place] [address] Care Team Providers Name Role Phone ROLO SCOTT Attending Unavailable TALAMPAS, COLBY D Attending Unavailable Nohemy Foley Attending Unavailable Moustapha, Trenton Attending Unavailable Manjeet Jarrell Referring Unavailable Therese Maravilla Attending Unavailable Therese Maravilla Referring Unavailable Talampas, Colby Primary Care Unavailable Moustapha, Trenton Attending Unavailable Moustapha, [place] Referring Unavailable Talampas, Colby Primary Care Unavailable Moustapha, Trenton Attending Unavailable Moustapha, Trenton Referring Unavailable Talampas, Colby Primary Care Unavailable Stoney Adame Attending Unavailable Stoney Adame Referring Unavailable Talampas, Colby Primary Care Unavailable Nolt, Sierra Attending Unavailable PROBLEMS PROBLEMS DATE TYPE CONDITION / CODE ATTENDING STATUS SOURCE 06/08/2018 Unknown R06.02 - Shortness Moustapha, Trenton Active [place] of breath / Community R06.02(ICD-10) Hospital Repository 06/08/2018 Unknown 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, Trenton Active [place] Unspecified right [facility] block / Repository I45.10(ICD-10) 06/08/2018 Unknown I10 - Essential Moustapha, Trenton Active [place] (primary) Community hypertension / Hospital I10(ICD-10) Repository PROCEDURES PROCEDURES No Procedure Records FoundRESULTS RESULTS Observed: 07/19/2018 Status: F Source: [place] CULTURE, NOSE 9:40 AM [facility] REPOSITORY Gram Stain Gram Stain Rare Gram positive cocci in chains Nasoph. Cult ORGANISM 1: Staphylococcus aureus Amount Growth 2+ ORGANISM 2: Streptococcus pneumoniae Amount Growth 1+ Staphylococcus aureus: REACTION Cefoxitin *NF NEG Doxycline <=0.5 S Daptomycin $$ 0.5 S Clindamycin $$ 0.25 S Inducable Clindamycin Resistan NEG Erythromycin $ <=0.25 S Gentamicin $ <=0.5 S Levofloxacin $ <=0.12 S Linezolid $$$$ 2 S Moxifloxicin *NF <=0.25 S Oxacillin NF 0.5 S Tigecycline $$$$ <=0.12 S Rifampin $$ <=0.5 S Tetracycline NF <=1 S Trimethoprim/Sulfametho $ <=10 S Vancomycin $ <=0.5 S (NF) indicates non-formulary drug at [facility]. Approval by Infectious Disease Specialist required before non-formulary drugs may be ordered and/or dispensed. * CLSI guidelines does not recommend testing of cephalosporins. This interpretation is deduced from Beta-lactam/penicillin results. Streptococcus pneumoniae: REACTION Cefotaxime (other) $ <=0.12 S Cefotaxime (meningitis) $ <=0.12 S Ceftriaxone (Men)$ <=0.12 S Ceftriaxone (other dx) $ <=0.12 S Clindamycin $$ <=0.25 S Erythromycin $ <=0.12 S Levofloxacin $ 0.5 S Moxifloxicin *NF 0.12 S Tetracycline NF <=0.25 S Trimethoprim/Sulfametho $ <=10 S Vancomycin $ 0.5 S Penicilin (Menin) <=0.06 S Penicillin (pneumoniae) <=0.06 S Penicillin(oral) <=0.06 S (NF) indicates non-formulary drug at [facility]. Approval by Infectious Disease Specialist required before non-formulary drugs may be ordered and/or dispensed. * CLSI guidelines does not recommend testing of cephalosporins. This interpretation is deduced from Beta-lactam/penicillin results. Performed By: #### M100.0900 #### [facility] [place], [address] PROGRESS Observed: 06/24/2018 Status: COMPLETED Source: [place] 3:37 PM [facility] [place] REPOSITORY [facility] ID: [id number] Author: Shelli Fountain LPN Service: (none) Author Type: (none) Type: Progress Notes Filed: 07/17/2018 9:16 PM Note Text: 68 year old male here for INACTIVATED INFLUENZA VACCINE. 3927-3313 Season Patient is identified by name and date of : Yes [] CONTRAINDICATIONS color enhanced section Age less than 6 months? No Allergy to eggs, chicken, chicken feathers, or chicken dander? No Allergy to thimerosal (a preservative) or formaldehyde, gelatin? No History of severe reaction to any vaccine component or a previous dose of influenza vaccination? 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 Yes See immunization activity in [facility] for details of immunizations adminstered today. Patient age: [age] year old For The 1471-3562 Flu Season 6-35 months old: Fluzone 0.25 [...] time. PROGRESS Observed: 06/24/2018 Status: COMPLETED Source: [place] 2:45 PM [facility] REPOSITORY O ID: [id number] Author: Colby Garcia Service: (none) Author Type: [...] Laterality Date - COLONOSCOP W/ OR W/O [facility] SPEC 01/19/2014 Colonoscopy - EGD W/O OR [...] , 2 adult children Realtor Lives in [facility] REVIEW OF SYSTEMS Aside from above, Constitutional, [...] be done by Dr. Davis. Will see general office worker prior. Appears stable from medical issues for surgery. Noted 2017 labs done at [facility] showed good sugar control. Above issues addressed [...] counseling and/or coordinating care for the patient. Imdx-pu-corv time was at least 45 minutes. Colby Garcia MD CNOV Observed: 06/24/2018 Status: COMPLETED Source: [place] 2:20 PM [facility] REPOSITORY Office Visit (INTMWS) ALEXANDRIA PADGETT ([id number]) 1950 M Date Time Provider Department 06/24/18 2:20 PM COLBY GARCIA INTMWS During your visit today, we recorded the following information about you: Temperature Pulse Respiration Blood pressure 98.8 degrees 80/minute 20/minute 110/70 Weight 93.4 kg Colby Garcia MD 07/17/2018 9:16 PM Signed HISTORY Alexandria Keanelton is a 68 year old gentleman here to be formally established with me. PCP was Dr. Scott/BOB. Dr. Davis--urology--planning on doing Urolift Nocturia at [...] Laterality Date - COLONOSCOP W/ OR W/O [facility] SPEC 01/19/2014 Colonoscopy - EGD W/O OR [...] , 2 adult children Realtor Lives in [facility] REVIEW OF SYSTEMS Aside from above, Constitutional, [...] be done by Dr. Davis. Will see general office worker prior. Appears stable from medical issues for surgery. Noted 2016 labs done at [facility] showed good sugar control. Above issues addressed [...] counseling and/or coordinating care for the patient. Soef-dm-ijci time was at least 45 minutes. MD Shelli Cortes LPN 07/17/2018 9:16 PM Signed 68 year old male here for INACTIVATED INFLUENZA VACCINE. 2987-5934 Season Patient is identified by name and date of : Yes [] CONTRAINDICATIONS color enhanced section Age less than 6 months? No Allergy to eggs, chicken, chicken feathers, or chicken dander? No Allergy to thimerosal (a preservative) or formaldehyde, gelatin? No History of severe reaction to any vaccine component or a previous dose of influenza vaccination? 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 Yes See immunization activity in [facility] for details of immunizations adminstered today. Patient age: [age] year old For The 8909-1955 Flu Season 6-35 months old: Fluzone 0.25 [...] N13.8] Need for vaccination [Z23] Order(s):HGB A1C [ZANYK4O] Order #: [id number] FUTURE COMP METABOLIC PANEL [SQCMP] Order #: [id number] FUTURE CBC [SQCBC] Order #: [id number] FUTURE LIPID PANEL BASIC [SQLIPB] Order #: [id number] FUTURE ALBUMIN/CREAT RATIO RND UR [SQUACR] Order #: [id number] FUTURE fluticasone (FLONASE) 50 mcg/actuation nasal sprayUse 2 Sprays in each nostril once daily. Rinse mouth after use.Disp: 3 BottleRfl: 3 sildenafil (REVATIO) 20 mg tabletFor erectile dysfunction. take 1-2 tablets by mouth 1 hour prior to anticipated intercourse.Disp: 60 tabletRfl: 5 HGB A1C [JPTOT5X] Order #: [id number] FUTURE BASIC METABOLIC PNL [SQBMP] Order #: [id number] FUTURE LIPID PANEL BASIC [SQLIPB] Order #: [id number] FUTURE INFLUENZA SEASONAL HIGH DOSE AGE 65+ [70610CQO] Order #: [id number] Prescriptions as of 06/24/2018 Sig: SILDENAFIL (ANTIHYPERTENSIVE)* [...] CARDIOLOGY VISIT Observed: 06/16/2018 Status: F Source: [place] REPORT 7:35 AM [facility] REPOSITORY [facility] [address] [place] [address] OFFICE VISIT Date of Service: MR#: [id number] Acct: [id number] Name: ALEXANDRIA PADGETT Rep #: [id number] : 1950 Provider: Nohemy Foley Age/Sex: 68/M Location: [facility] Status: Signed HPI HPI Details: ALEXANDRIA PADGETT, [...] mg PO DAILY 06/02/18 [History Confirmed 06/08/18] PFSH Medical History Right bundle branch block (Chronic) [...] Level of Care Code No Charge 06/16/18 0735 <Electronically signed by Trenton Gerard MD> Date Trenton Gerard MD Cosigner Signature: Date (if applicable) CC: Akosua Scott MD PSA,TOTAL - ANNUAL Collected: 06/09/2018 Status: F Source: [place] SCREEN 9:46 AM [facility] REPOSITORY TYPE CODE TESTS RESULT OUT OF RANGE REFERENCE UNITS LAB L501.9910 0.00-4.00 ng/mL Normal PSA,TOT 1.77 SCREEN Result Comment: This test was performed using the TPSA assay method for the Intiza chemistry system. Values obtained with different assay methods cannot be used interchangably. When changing PSA assays in the course of monitoring a patient, additional sequential testing should be carried out to confirm baseline values. Performed By: #### L501.9910 #### [facility] [address] [place], [address] CARDIOLOGY VISIT Observed: 06/08/2018 Status: F Source: [place] REPORT 10:05 AM [facility] REPOSITORY [facility] 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) Coding Level of Care Code Off vis,new,level 4 Diagnoses Right bundle branch block I45.10 Essential hypertension I10 Shortness of breath R06.02 Coding Level of Care Code Off vis,new,level 4 Diagnoses Right bundle branch block I45.10 Essential hypertension I10 Shortness of breath R06.02 06/08/18 1005 <Electronically signed by Trenton Gerard MD> Date Trenton Cedenoignfranklin Signature: Date (if applicable) CC: Colby Garcia MD PROGRESS Observed: 02/25/2018 Status: COMPLETED Source: [place] 11:38 AM [facility] REPOSITORY HNO ID: [id number] Author: Selene Collins Service: (none) Author Type: Bindery Helper Type: Progress Notes Filed: 02/25/2018 11:40 AM Note Text: Patient Outreach - Network Navigator PCP Status ? Payer and EPIC PCP validation EPIC - Correct Care Gaps DM - Eye Exam: Last retinal or dilated eye exam result: Appointment scheduled for 03/21/18 Time spent corrections counselor: 5 min GINA Yu (Network Navigator) CNPTOUTREACH Observed: 02/25/2018 Status: COMPLETED Source: [place] 12:00 AM [facility] REPOSITORY Patient Outreach (NETNAV) ALEXANDRIA PADGETT ([id number]) 1950 M Date Time Provider Department 02/25/18 ROLO SCOTT During your visit today, we recorded the following information about you: GINA Yu (Network Navigator) 02/25/2018 11:40 AM Signed Patient Outreach - Network Navigator PCP Status ? Payer and EPIC PCP validation EPIC - Correct Care Gaps DM - Eye Exam: Last retinal or dilated eye exam result: Appointment scheduled for 03/21/18 Time spent corrections counselor: 5 min GINA Yu (Network Navigator) Allergies As of Date: 02/25/2018 Noted Allergy Reaction PENICILLINS 11/18/2005 2 - Rash Date Reviewed: 12/18/2016 Reviewed by: Yeimi ([facility]) CONOR Saleh - Fully Assessed Reason for [...] 02/25/18 PROGRESS Observed: 10/10/2017 Status: COMPLETED Source: [place] 9:26 AM [facility] [place] REPOSITORY HNO ID: [id number] Author: Rolo Scott Service: (none) Author Type: [...] Complication, Without Long-Term Current Use of Insulin ([facility]) Pure Hypercholesterolemia Allergic Rhinitis Due to Other Allergen Hypertension Erectile Dysfunction Spondylolisthesis Low Back Pain Recalls a history of right bundle branch block. He mentioned this to Dr. Gerard suggested an EKG and potentially cardiology consult would be appropriate. Alexandria is interested in seeing the general office worker Past medical history, appointments, medications, allergies reviewed. [...] , 2 adult children Realtor Lives in [facility] ROS: General: Feels well, no weight changes, [...] MD CNOV Observed: 10/08/2017 Status: COMPLETED Source: [place] 3:00 PM [facility] REPOSITORY Office Visit (WADS) ALEXANDRIA PADGETT ([id number]) 1950 M Date Time Provider Department 10/08/17 [...] appropriate. Alexandria is interested in seeing the general office worker Past medical history, appointments, medications, allergies reviewed. [...] , 2 adult children Realtor Lives in [facility] ROS: General: Feels well, no weight changes, [...] is ordered, will get it drawn in [place]. (E78.00) Pure hypercholesterolemia Comment: Has been well [...] Rash Date Reviewed: 12/18/2016 Reviewed by: Yeimi ([facility]) CONOR Saleh - Fully Assessed Reason for Visit: BP follow up [Other] Primary Visit Diagnosis:Controlled type 2 diabetes mellitus without complication, without long-term current use of insulin (HCC) [E11.9] Other Visit Diagnoses:Pure hypercholesterolemia [E78.00] Essential hypertension [I10] RBBB [I45.10] Order(s):lisinopril (PRINIVIL) 5 mg tabletTake 1 tablet by mouth once daily.Disp: 90 tabletRfl: 3 COMP METABOLIC PANEL [SQCMP] Order #: [id number] FUTURE LIPID PANEL BASIC [SQLIPB] Order #: [id number] FUTURE HGB A1C [IUCUW8Z] Order #: [id number] FUTURE CONSULT TO CARDIOLOGY [9004] Order #: [id number]: 1 ECG COMPLETE W INTERPRETATION [ECG01] Order #: [id number] FUTURE Prescriptions as of 10/08/2017 Sig: METFORMIN [...] 07/27/2017 Status: COMPLETED Source: [place] 12:00 AM [facility] RE[facility] ALEXANDRIA PADGETT ([id number]) 1950 M Date Time Provider Department 07/27/17 [...] Rash Date Reviewed: 12/18/2016 Reviewed by: Yeimi ([facility]) CONOR Saleh - Fully Assessed Reason for [...] / CODE REACTION SEVERITY SOURCE 06/08/2018 Drug Penicillins/W23441 Rash [place] Allergy/416 0476(RXNORM) [facility] 725539([facility] ED CT) Repository 11/18/2005 Drug PENICILLINS RASH [facility] Class/[address] [address] [place] 1003(SNOMED Repository CT) ENCOUNTERS ENCOUNTERS ADMIT/DISCHARGE ACCOUNT ADMITTING ENCOUNTER LOCATION SOURCE NUMBER CLASS 07/19/2018 [id number] [facility] ing:[facility]SPEC Repository 07/11/2018 [id number] [facility] ing:[facility] Repository 07/04/2018 [id number] [facility] ing:[facility] Repository 06/24/2018/07/19/19 [id number] Ambulatory [address] Repository 06/09/2018 [id number] [facility] ing:LAB Repository 06/08/2018/06/08/20 [id number] Ambulatory BMSBuilding:B [place] [address] [place] Repository 06/08/2018 [id number] Ambulatory BMSBuilding[place] Repository 06/02/2018 [id number] Ambulatory BMSBuilding:B [place] Repository 10/08/2017/10/14/19 [id number] Ambulatory [address] Repository PAYERS PAYERS ENCOUNTER GUARANTOR PAYER SUBSCRIBER SOURCE 07/19/2018 [place] Kraus Primary A[place]RIA [id number] Insurance:MEDICARE CHARLTONDOB: [facility] [id number] [address]Mbi: [phone] [id number] [phone] () Date:2018-07-19 07/19/2018 Secondary [place] A [place] Insurance:MEDICAL CHARLTONDOB: [facility] [id number] Hospital Number: Repository [id number] Date:[id number] [address]XR: 07/19/2018 Tertiary NOT GIVENUNK [place] Insurance:SELF PAY [facility] Number: Effective Repository Date:2018-07-19 07/11/2018 [place] A Primary A[place]A Muller [id number] Insurance:MEDICARE CHAR[place]TOND[facility] [id number] Number: Repository [id number]: 330 [id number] () Date:2018-07-05 07/11/2018 Secondary [place] A [place] Insurance:MEDICAL CHARLTONDOB: [facility] [id number] Hospital Number: Repository [id number] Date:3225-13-88VE[address] [address]UH: 07/11/2018 Tertiary NOT GIVENUNK [place] Insurance:SELF PAY [facility] Number: Effective Repository Date:2018-07-05 07/04/2018 A[place]RIA A Primary ALEXANDRIA Muller [id number] Insurance:MEDICARE CHARLTONDOB: [facility] [id number]: Repository [address]Wel: 330 [id number] [phone] () Date:2018-06-08 07/04/2018 Secondary [place] A [place] Insurance:MEDICAL CHARLTONDOB: [facility] [id number] Hospital Number: Repository [id number] Date:6503-24-96MF[address] [address]MV: 07/04/2018 Tertiary NOT GIVENUNK [place] Insurance:SELF PAY [facility] Number: Effective Repository Date:2018-06-08 06/09/2018 A[place]RIA A Primary A[place]A Nayana Muller [id number] Insurance:MEDICARE CHARLTONDOB: [facility] [id number] Number: Repository [address]Rlg: 330 [id number] (HP) Date:2018-06-09 06/09/2018 Secondary [place] A [place] Insurance:MEDICAL CHARLTONDOB: [facility] [id number] Hospital Number: Repository [id number] Date:1717-45-89HQ [address] [place] [address]DB: 06/09/2018 Tertiary NOT GIVENUNK [place] Insurance:SELF PAY [facility] Number: Effective Repository Date:2018-06-09 06/08/2018 A[place]RIA A Primary [place] A [place] [id number] Insurance:MEDICARE CHARLTONDOB: [facility] PART A [facility] [id number] Number: Repository [id number]: 330 [id number] () Date:2018-05-26 06/08/2018 Secondary [place] A [place] Insurance:MEDICAL CHARLTONDOB: [facility] [id number] Hospital Number: Repository [id number] Date:[id number] [address]OM: 06/08/2018 Tertiary NOT GIVENUNK [place] Insurance:SELF PAY [facility] Number: Effective Repository Date:2018-06-03 06/08/2018 [place] A Primary [place] A [place] [id number] Insurance:MEDICARE CHARLTONDOB: [facility] PART A [facility] [id number] Number[place] Repository [address]Gup: 330 [id number] () Date:2018-06-08 06/08/2018 Secondary [place] A [place] Insurance:MEDICAL CHARLTONDOB: [facility] [id number] Hospital Number: Repository [id number] Date:4370-27-16SJ [address] [place] [address]HN: 06/08/2018 Tertiary NOT GIVENUNK [place] Insurance:SELF PAY [facility] Number: Effective Repository Date:2018-06-08 06/02/2018 [place]A A Primary [place] A [place] [id number] Insurance:MEDICARE CHARLTONDOB: [facility] [id number] Number[place] Repository [address]Uvr: [phone] [id number] [phone] () Date:2018-06-02 06/02/2018 Secondary [place] A [place] Insurance:MEDICAL CHARLTONDOB: [facility] [id number] Hospital Number: Repository [id number] Date:3953-19-10WD [address] [place] [address]ZI: 06/02/2018 Tertiary NOT GIVENUNK [place] Insurance:SELF PAY [facility] Number: Effective Repository Date:2018-06-02
== END ==
PROVIDERS: Family Provider Internal Medicine; PCP Internal Medicine; Referring Provider Otolaryngology Otolaryngology/Facial Plastic Surgery; Visit Provider Otolaryngology Otolaryngology/Facial Plastic Surgery
DX: J32.9 Chronic sinusitis, unspecified (principal)
CPT/HCPCS: 87070; 87077; 87186; 87205

== ENCOUNTER → 2018-10-04 12:51 | Outpatient (CLI) | payer MEDICARE, OTHER, SELFPAY ==
[2018-06-08 09:40] VITALS: BMI 28.7
--- NOTE | 2018-10-04 12:54 | CT_ITS ---
STUDY: CT MAXILLOFACIAL SINUSES REASON FOR EXAM: Male, 68 years old. Sinusitis. RADIATION DOSAGE (If Supplied By Facility): CTDIvol = ( 33.06 ) mGy, DLP = ( 837.98 ) mGycm TECHNIQUE: The patient was scanned in a multi detector CT scanner. High resolution axial imaging was performed without the administration of intravenous contrast material. Sagittal and coronal images were reconstructed. Individualized dose optimization techniques were used for this CT. COMPARISON: None. FINDINGS: FRONTAL SINUSES: Mild mucosal thickening. No air-fluid levels. ETHMOIDAL SINUSES: Mild/moderate diffuse mucosal thickening. MAXILLARY SINUSES: Moderate bilateral mucosal thickening and probable mucous retention cysts. No air-fluid levels. SPHENOIDAL SINUSES: Mild mucosal thickening of the right ethmoid sinus. There is mucosal thickening of the ostiomeatal complexes bilaterally, but there is patency of the bilateral maxillary infundibuli with normal uncinate processes, ethmoid bullae, and hiatus semilunaris. Normal bilateral middle turbinates. Normal bilateral inferior turbinates. Normal midline nasal septum. There is patency of the bilateral nasal airways. There is a chronic defect of the right medial orbital wall which may be from previous fracture or surgery. There is a persistent defect. The visualized osseous structures are otherwise normal. The visualized bilateral orbital contents are normal. CT/Sinus/Facial Bone IMPRESSION: No evidence of acute sinus disease. Mild to moderate diffuse chronic sinus disease. Electronically Signed: Walker Cobb MD at 16:04 EDT , Service support ,
== END ==
PROVIDERS: Family Provider Internal Medicine; PCP Internal Medicine; Referring Provider Otolaryngology; Visit Provider Otolaryngology
DX: J32.9 Chronic sinusitis, unspecified (principal)
CPT/HCPCS: 70486

== ENCOUNTER → 2019-03-22 07:21 | Outpatient (CLI) | payer MEDICARE, OTHER, SELFPAY ==
[2018-06-08 09:40] VITALS: BMI 28.7
--- NOTE | 2019-03-22 07:33 | ECHOD_ITS ---
Reason For Study: Dyspnea Procedure This was a 2D Doppler, Color Flow transthoracic echocardiogram. Exam performed in department. Left Ventricle Normal LV size. Mild concentric left ventricular hypertrophy. Left ventricular systolic function is normal. The estimated ejection fraction is 60 %. Stage 1 diastolic dysfunction. No regional wall motion abnormalities noted. Right Ventricle Normal RV size. Normal systolic function. Atria Normal left atrium. Normal right atrium. Mitral Valve There is mild mitral annular calcification. Trivial eccentric mitral valve insufficiency. Tricuspid Valve Normal tricuspid valve. Mild tricuspid valve insufficiency. Aortic Valve Trisinus/trileaflet aortic valve. Mild focal aortic valve calcification. Pulmonic Valve The pulmonic valve is not well visualized. Great Vessels Normal aortic root. The pulmonary artery is normal size. Normal inferior vena cava. Pericardium/Pleural No pericardial effusion. MMode/2D Measurements & Calculations LVIDd: 4.5 cm IVSd: 1.4 cm Ao root diam: 3.5 cm LVIDs: 2.6 cm LVPWd: 1.3 cm RVDd: 3.9 cm FS: 42.8 % LAV(MOD-bp): 37.3 ml LVAd ap4: 24.1 cm2 SV(MOD-sp4): 43.7 ml LAV(MOD-bp) Indexed: 17.5 ml/m2 EDV(MOD-sp4): 68.4 ml LAV(MOD-sp2): 42.2 ml EDV(sp4-el): 69.5 ml LAV(MOD-sp4): 31.5 ml LVAs ap4: 13.3 cm2 ESV(MOD-sp4): 24.6 ml ESV(sp4-el): 25.3 ml EF(MOD-sp4): 64.0 % EF(sp4-el): 63.6 % SV(sp4-el): 44.2 ml LA A4 area: 13.3 cm2 LA dimension(2D): 3.3 cm RA A4 area: 14.2 cm2 Doppler Measurements & Calculations MV E max janes: 54.3 cm/sec Lat Peak E' Janes: 6.3 cm/sec Med Peak E' Janes: 5.4 cm/sec MV A max janes: 72.3 cm/sec E/E' lat: 8.7 E/E' med: 10.1 MV E/A: 0.75 Ao V2 max: 156.2 cm/sec AI max janes: 397.2 cm/sec LV V1 max: 94.5 cm/sec Ao max P.8 mmHg AI max P.1 mmHg LV V1 max P.6 mmHg Ao V2 mean: 112.2 cm/sec Ao mean P.5 mmHg AI dec slope: 222.8 cm/sec2 Ao V2 VTI: 30.4 cm AI P1/2t: 522.1 msec PA V2 max: 114.6 cm/sec TR max janes: 230.1 cm/sec TR max P.2 mmHg Interpretation Summary Normal LV size. Mild concentric left ventricular hypertrophy. Left ventricular systolic function is normal. The estimated ejection fraction is 60 %. Stage 1 diastolic dysfunction. Ordering Physician: Trenton Gerard Referring Physician: Carmen Garcia Performed By: Dee Burgos, RDSHANAE, RVT
--- NOTE | 2019-03-22 18:25 | STRESSREP ---
Stress Test Report Exercise myocardial perfusion stress test. 69-year-old man with a history of dyspnea. Medications: Lisinopril Metformin Flomax. Resting EKG demonstrates normal sinus rhythm with a rate of 77 bpm the right bundle branch block is noted. Resting blood pressures 118/78 mmHg. The patient exercised according to regular Eagle protocol for total duration of 8 minutes completing 2 minutes into stage III of the Eagle protocol the maximum heart rate attained was 153 bpm which was 100% maximum predicted heart rate the maximum workload was 10.1 metabolic equivalents. The patient maintained sinus rhythm with a right bundle branch block. There were no ST or T wave changes noted suggest ischemia. The resting blood pressure was 118/78 with a peak blood pressure 172/74. Rate pressure product was 25,000. No clinical angina was noted the test was terminated due to dyspnea. Myocardial perfusion protocol. 14.3 mCi of technetium 99m sestamibi was injected at rest. The patient exercised for 8 minutes at peak exercise 43.9 mCi of technetium 99m sestamibi was injected stress images were obtained stress and rest images were reconstructed and compared in the short axis vertical long horizontal long axis. Gated images were also obtained. Perfusion SPECT analysis: Review of the stress images demonstrate normal uptake of tracer noted in all areas of myocardium the rest images similar demonstrate normal uptake of tracer noted in all rest of the myocardium. No areas of reversibility are noted suggest ischemia no previous infarct is noted. Gated SPECT analysis: The gated ejection fraction is noted to be 78%. Conclusion: Normal exercise myocardial perfusion stress test at a high workload. No clinical angina noted. Right bundle branch block pattern noted. Excellent functional capacity.
== END ==
PROVIDERS: Family Provider Internal Medicine; PCP Internal Medicine; Referring Provider Internal Medicine Cardiovascular Disease; Visit Provider Internal Medicine Cardiovascular Disease
DX: R06.00 Dyspnea, unspecified (principal)
CPT/HCPCS: 78452; 93017; 93306; A9500

== ENCOUNTER 2019-06-06 07:55 | Day surgery (SDC) | payer MEDICARE, OTHER, SELFPAY ==
[2018-06-08 09:40] VITALS: BMI 28.7
--- NOTE | 2019-06-01 09:43 | EKG12_ITS ---
Test Reason : PRE OP Blood Pressure : / mmHG Vent. Rate : 060 BPM Atrial Rate : 060 BPM P-R Int : 202 ms QRS Dur : 130 ms QT Int : 438 ms P-R-T Axes : 049 -36 041 degrees QTc Int : 438 ms Normal sinus rhythm Left axis deviation Right bundle branch block Abnormal ECG Confirmed by ABHIJIT PEÑA, ELLIE ([id number]), video editor CARLY DEL RIO ([id number]) on 06/04/2019 9:56:43 AM Referred By: Abel Marroquin Confirmed By:BAYLEE LACEY MD
[2019-06-01 10:44] LABS: Anion Gap 7 (5-15); BUN 24 mg/dL (7-18); Calcium,Total 9.1 mg/dL (8.5-10.1); Chloride 102 mmol/L (98-107); EST Glomerular Filtration Rate 64 mL/min (>60); Est Glom Filt Rate - Afr Amer 77 mL/min (>60); Glucose 140 mg/dL (74-106); Potassium 4.4 mmol/L (3.5-5.1); Sodium Level 136 mmol/L (136-145)
--- NOTE | 2019-06-06 08:01 | EKG12_ITS ---
Test Reason : PRE OP Blood Pressure : / mmHG Vent. Rate : 068 BPM Atrial Rate : 068 BPM P-R Int : 190 ms QRS Dur : 130 ms QT Int : 426 ms P-R-T Axes : 053 -46 055 degrees QTc Int : 452 ms Normal sinus rhythm Left axis deviation Right bundle branch block Abnormal ECG Confirmed by QAMAR PEÑA, CHRIS ([id number]), makeup editor CARLY DEL RIO ([id number]) on 06/07/2019 12:01:47 PM Referred By: Georges Marroquin Confirmed By:CHRIS FOOTE MD
[2019-06-06 08:27] LABS: Hematocrit 38.3 % (40-54); Hemoglobin 12.3 g/dL (13.0-16.5); Mean Corp Hgb Conc 32.1 g/dL (32-36); Mean Corpuscular Hgb 30.3 pg (27.0-32.0); Mean Corpuscular Volume 94.3 fL (80-94); Mean Platelet Vol. 8.2 fl (6.2-12.0); Platelet Count 318 K/mm3 (150-450); RBC Distribution Width CV 12.4 % (11.6-14.6); RBC Distribution Width SD 42.8 fl (35.1-43.9); Red Blood Count 4.06 M/mm3 (4.6-6.2); White Blood Count 7.4 K/mm3 (4.4-11.0)
[2019-06-06 08:39] LABS: Anion Gap 2 (5-15); BUN 24 mg/dL (7-18); BUN/Creat Ratio 19.4 RATIO (10-20); Calcium,Total 8.7 mg/dL (8.5-10.1); Chloride 106 mmol/L (98-107); Creatinine, Serum 1.24 mg/dL (0.70-1.30); EST Glomerular Filtration Rate 62 mL/min (>60); Est Glom Filt Rate - Afr Amer 75 mL/min (>60); Glucose 127 mg/dL (74-106); Potassium 4.4 mmol/L (3.5-5.1); Sodium Level 136 mmol/L (136-145)
[2019-06-06 08:41] LABS: Bedside Glucose 128 mg/dL (70-110)
[2019-06-06 08:44] VITALS: BP 126/75; PULSE 66; RESP 15; TEMP 36.9; O2SAT 100; BMI 29.0
[2019-06-06 08:46] LABS: Hemoglobin A1c 6.2 % (4.2-6.3)
[2019-06-06] MEDS: Lactated Ringers 1,000 ML 100 ML IV ×2 (08:53→11:31)
[2019-06-06] MEDS: Oxymetazoline 0.05% 1 SPRAY SPRAY.BTL 15 SPRAY (10:10)
[2019-06-06] MEDS: Mupirocin Ointment 22gm Tube 1 APPLIC (10:39)
--- NOTE | 2019-06-06 12:18 | PCM.DC ---
You will use the following diet at home:: No restrictions Discharge Activity: May not drive while taking narcotic pain medications. Call your doctor if your incision/area has: Increased Pain/ Swelling Additional Dressing/Incision Instructions:: sleep with head of bed elevated. keep the inside of your nose clean with saline spray 5 times daily. use the given ointment on your incision and in your nostrils twice daily. keep the bridge of your nose dry; however the morning of your follow up appointment get your nose very wet so the dressing will come off in the office. Allergies/Adverse Reactions: Allergies Penicillins Allergy (Intermediate, Verified 06/06/19 08:43) Rash Medications to take at Discharge diazepam 5 mg tablet 5 mg PO PRN PRN tab 06/02/18 lisinopril 5 mg tablet 2.5 mg PO DAILY 06/02/18 metformin 1,000 mg tablet 1,000 mg PO DAILY 06/02/18 tadalafil 5 mg tablet 5 mg PO DAILY PRN 06/02/18 Metformin HCl [Glucophage] 500 mg PO QHS 05/30/19 Oxycodone HCl/Acetaminophen [Percocet 5/325] 1 tab PO Q6H PRN PRN 5 Days #20 tab 06/06/19 Sulfamethoxazole/Trimethoprim [Bactrim 400-80 mg Tablet] 1 ea PO BID #14 tab 06/06/19 The following prescriptions were given: Sulfamethoxazole/Trimethoprim [Bactrim 400-80 mg Tablet] 1 ea PO BID #14 tab [facility]: [id number] Oxycodone HCl/Acetaminophen [Percocet 5/325] 1 tab PO Q6H PRN PRN 5 Days #20 tab PRN Reason: Pain Or Fever Transmission Status: Pending to [id number] Primary Care Physician: Carmen Garcia MD [Primary Care Provider] - Test Results: Test results from this visit will be discussed in further detail at your follow-up appointment, if applicable. Please Follow Up With: Georges Marroquin MD When: 1 week
[2019-06-06 12:28] VITALS: BP 126/75; BP 145/76; PULSE 65; RESP 14; TEMP 36.9; O2SAT 97
[2019-06-06 12:30] VITALS: BP 126/75; BP 144/81; PULSE 59; RESP 16; O2SAT 99
[2019-06-06 12:47] VITALS: BP 126/75; BP 149/85; PULSE 62; RESP 16; TEMP 36.6; O2SAT 100
--- NOTE | 2019-06-06 13:13 | PCM.OPRPT ---
Problem List (1) Nasal congestion Status: Chronic (2) Nasal septal deviation Status: Chronic (3) Acquired nasal deformity Status: Chronic (4) Closed fracture nasal bone Status: Chronic (5) Nasal turbinate hypertrophy Status: Acute Report of Operation Date of Procedure: 06/06/19 Pre-Operative Diagnosis: 1. nasal congestion. 2. nasal septal deviation. 3. inferior turbinate hypertrophy. 4. closed fracture nasal bones. 5. internal nasal valve collapse Post-Operative Diagnosis: 1. nasal congestion. 2. nasal septal deviation. 3. inferior turbinate hypertrophy. 4. closed fracture nasal bones. 5. internal nasal valve collapse Surgery/Procedure Performed:: 1. open septorhinoplasty. 2. subucous resection, inferior turbinate, right and left. 3. open reduction nasal fracture. 4. correction internal nasal valve collapse, right and left Type of Anesthesia:: General Description of Procedure: on the day of the procedure, after appropriate informed consent was obtained, the patient was brought to the operating room and placed in supine position on the operating table. he was placed under general endotracheal anesthesia by the anesthesiologist. the endotracheal tube was secured, tegaderm was placed on the eyes. the nose was decongested with oxymetazoline-soaked pledgets. the nose was injected with lidocaine/epinephrine. an inverted V columellar incision was made with a alatna blade. using three point retraction, marginal incisions were made on the right and left with an iris scissor. the lower lateral cartilages and scroll regions were skeletonized and the upper lateral cartilages were dissected. a subperiosteal plane was developed over the nasal bones with a christopher elevator. the medial crura were lateralized and the anterior septal angle was located. this was dissected upon with the bovie. submucoperiochondrial planes were developed on the right and left - posterior to the bony/cartilaginous junction and inferiorly to the maxillary crest. given the patient's severe deflection, it was deemed necessary to perform an anterior septal reconstruction. a 1cm strut was preserved off of the keystone area and the remainder of the cartilaginous septum was removed with a D knife and a christopher elevator. this was trimmed accordingly and saved for future use. the right and left upper lateral cartilages were disarticulated from the nasal septum using a 15 blade. deviated portions of the perpendicular plate of the ethmoid and vomer were removed using a charissa brown. the head of the right inferior turbinate was injected with lidocaine/epinephrine. an incision was made in the head of the inferior turbinate with a 15 blade. this was dissected submucosally with a christopher elevator, reduced using suction cautery and outfractured using a boies elevator. the head of the left inferior turbinate was injected with lidocaine/epinephrine. an incision was made in the head of the inferior turbinate with a 15 blade. this was dissected submucosally with a christopher elevator, reduced using suction cautery and outfractured using a boies elevator. a 2mm incision was made at the junction of the right lateral nasal sidewall and nasal dorsum. medial and lateral osteotomies were made with a 2mm osteotome and the bony pyramid was brought back to the midline. the anterior septal reconstruction cartilage was placed as a right internal wound care center consultant graft. this was sutured into place using 4-0 PDS, as well as at multiple points on the maxillary crest. a 1cm x 2mm left wound care center consultant graft was placed as well. a 5mm x 2mm strut graft was sutured between the medial crura with 4-0 PDS. the submucoperichondrial flaps were reapproximated using 4-0 chromic, several incorporating the anterior septal reconstruction. the right external sidewall incision was closed with 5-0 fast gut. the columellar incision was closed with 7-0 vicryl; the marginal incisions with 4-0 chromic. the latera trocar was set up and the implant was loaded. the left ala was everted with a double pronged skin hook. the trocar was placed into the vestibular skin and advanced deep to the skin and soft tissue envelope, lateral to the nasal bones and cartilage. the implant was deployed. given the patient's previous right lateral rhinotomy, the trocar was unable to be advanced on the right, so an implant was not placed on this side. rogers splints were placed as was a dorsal nasal splint.
[2019-06-06] MEDS: HYDROcodone Bitartrate/Apap 5/325 Tablet PO (13:40)
[2019-06-06 14:04] VITALS: BP 126/75; BP 144/82; PULSE 62; RESP 16; TEMP 36.7; O2SAT 96
== END 2019-06-06 14:35 | disposition home or self-care (01) ==
LOC: SDC 07:56 → AC 07:56
PROVIDERS: Anesthesiology; Family Provider Internal Medicine; PCP Internal Medicine; Referring Provider Otolaryngology; Visit Provider Otolaryngology
PROC: (CPT 30140; principal; 2019-06-06 09:15)
DX: J34.2 Deviated nasal septum (principal); J34.3 Hypertrophy of nasal turbinates; R09.81 Nasal congestion; S02.2XXA Fracture of nasal bones, initial encounter for closed fracture; I10 Essential (primary) hypertension; E11.9 Type 2 diabetes mellitus without complications; Z85.828 Personal history of other malignant neoplasm of skin
CPT/HCPCS: 30140; 30465; 30520; 36415; 80048; 82962; 83036; 85027; 93005; J7120; J2405

== ENCOUNTER → 2019-08-31 18:52 | Outpatient (CLI) | payer MEDICARE, OTHER, SELFPAY | PROVIDERS: PCP Internal Medicine; Referring Provider Otolaryngology; Visit Provider Otolaryngology | DX: J32.9 Chronic sinusitis, unspecified (principal) | CPT/HCPCS: 87070; 87077; 87186; 87205 ==

== ENCOUNTER → 2020-08-16 15:27 | Outpatient (CLI) | payer MEDICARE, OTHER, SELFPAY | PROVIDERS: PCP Family Medicine; Referring Provider Otolaryngology; Visit Provider Otolaryngology | DX: J32.8 Other chronic sinusitis (principal) | CPT/HCPCS: 87070; 87077; 87186; 87205 ==

== ENCOUNTER → 2020-09-02 15:20 | Outpatient (CLI) | payer MEDICARE, OTHER, SELFPAY | PROVIDERS: PCP Family Medicine; Visit Provider Otolaryngology | DX: J32.9 Chronic sinusitis, unspecified (principal) | CPT/HCPCS: 87070; 87205 ==

== ENCOUNTER 2021-02-08 05:06 | Observation (INO) | payer MEDICARE, OTHER, SELFPAY ==
[2020-11-26 10:24] VITALS: BMI 28.5
[2021-02-08] VITALS (14 sets, daily range): BP systolic 108–141; BP diastolic 69–82; PULSE 61–91; RESP 14–18; TEMP 36–36.4; O2SAT 95–100; BMI 27.8; BMI 26.1
--- NOTE | 2021-02-08 05:35 | EKG12_ITS ---
Test Reason : VOMITING Blood Pressure : / mmHG Vent. Rate : 081 BPM Atrial Rate : 081 BPM P-R Int : 234 ms QRS Dur : 140 ms QT Int : 406 ms P-R-T Axes : 048 -42 051 degrees QTc Int : 471 ms Sinus rhythm with 1st degree A-V block Left axis deviation Right bundle branch block Abnormal ECG Confirmed by QAMAR PEÑA, CHRIS ([id number]), state editor BELLA ALONSO ([id number]) on 02/11/2021 9:39:15 AM Referred By: SABINA Confirmed By:CHRIS FOOTE MD
--- NOTE | 2021-02-08 05:35 | RAD_ITS ---
HISTORY: Neuro deficit, acute, stroke suspected EXAMINATION/TECHNIQUE: XR Chest 1 View portable AP view COMPARISON: None FINDINGS: LINES/DEVICES: Cardiac monitoring leads. LUNGS: No pulmonary edema. No focal airspace consolidation. No sizable pleural effusion. No pneumothorax detected. Mildly elevated right hemidiaphragm. MEDIASTINUM AND CARDIOVASCULAR STRUCTURES: Heart size within normal limits for imaging technique. Central airways and mediastinal contour are unremarkable. BONES AND SOFT TISSUES: Endplate osteophytes along spine. RAD/Chest 1 View IMPRESSION: No radiographic evidence of acute cardiopulmonary disease. at 0624 Reported and signed by: Kimani Soni MD Electronically Signed: Kimani Soni MD at 6:23 EDT Tel , Service support ,
--- NOTE | 2021-02-08 05:35 | CT_ITS ---
We are attempting to reach an attending provider to discuss findings. An addendum with communication details will be sent when the communication is complete. HISTORY: Neuro deficit, acute, stroke suspected EXAMINATION: CT Head Stroke Protocol W/O Contrast Injection TECHNIQUE: Multiple axial images were obtained of the head without intravenous contrast. A radiation dose optimization technique was used for this scan. IV Contrast dosage and agent: None. COMPARISON: None FINDINGS: BRAIN PARENCHYMA: No intra- or extra-axial hemorrhage. No evidence of acute infarct. No intracranial mass or mass effect. There is preservation of the johnson/white matter interface. Posterior fossa structures are unremarkable. CSF SPACES: Appropriate for age. No hydrocephalus. Basal cisterns are patent. Intracranial atherosclerotic calcifications. CALVARIUM, SKULL BASE, PARANASAL SINUSES AND MASTOID AIR CELLS: Intact calvarium. No acute disease within imaged paranasal sinuses. Mastoid air cellls are well pneumatized. ORBITS: Chronic right medial orbital fracture. ASPECTS Score for Acute Strokes: 10 CT/STROKE Brain/Head without Cont IMPRESSION: No evidence of acute intracranial abnormality. Individualized dose optimization techniques were used for this CT. at 0645 Reported and signed by: Kimani Soni MD Electronically Signed: Kimani oSni MD at 6:44 EDT Tel , Service support ,
--- NOTE | 2021-02-08 05:37 | CT_ITS ---
HISTORY: Neuro deficit, acute, stroke suspected; vertigo TECHNIQUE: Routine carotid CT angiogram protocol was performed with IV contrast. In addition, images were obtained of the [place]. Nascet criteria using the distal ICAs for comparison were used for evaluation of stenoses. 2-D and 3-D reconstructions were reviewed. A radiation dose optimization technique was used for this scan. IV Contrast dosage and agent: 100mL [id number]-[id number] COMPARISON: Concurrent unenhanced head CT FINDINGS: --NECK: AORTIC ARCH AND BRANCHES: Mild calcified plaque with no aneurysm, dissection, occlusion or significant stenosis. RIGHT CCA: No occlusion, significant stenosis or dissection. RIGHT ICA: No occlusion, significant stenosis or dissection. LEFT CCA: No occlusion, significant stenosis or dissection. LEFT ICA: No occlusion, significant stenosis or dissection. RIGHT VERTEBRAL ARTERY: No occlusion, significant stenosis or dissection. LEFT VERTEBRAL ARTERY: No occlusion, significant stenosis or dissection. NECK SOFT TISSUES: No acute findings. Punctate calcification within right lobe of thyroid gland. LUNG APICES: Clear. BONES: Multilevel degenerative disc space narrowing, endplate osteophytes and facet arthropathy along cervical spine. Secondary mild spinal canal stenosis with bilateral neural foraminal stenosis of varying severity. --HEAD: --Anterior circulation: ICAs: Calcified plaque bilaterally but no occlusion or high-grade stenosis. ACAs: No significant stenosis at the visualized segments. ACOM: Present. MCAs: No significant stenosis at the visualized segments. --Posterior circulation: PCOMs: Patent bilaterally. process planner: No significant stenosis at the visualized segments. BASILAR ARTERY: No significant stenosis. VERTEBRAL ARTERIES: No significant stenosis at the intradural/visualized segments. No evidence of intracranial aneurysm or vascular malformation. CT/STROKE CTA Head AND Neck W/Con IMPRESSION: 1. CTA head and neck with no acute arterial occlusive disease or other acute abnormality. 2. Multilevel cervical spondylosis. Individualized dose optimization techniques were used for this CT. at 0708 Reported and signed by: Kimani Soni MD N.B. : The above Results were Read Back by Kimani Soni MD to Carlo Bob MD, and understanding confirmed on 02/08/2021 07:07:28 (ET). Electronically Signed: Kimani Soni MD at 7:06 EDT Tel , Service support ,
--- NOTE | 2021-02-08 05:38 | EDS_ITS ---
HPI History of Present Illness Chief Complaint: Nausea/Vomiting Informant: patient, spouse/S.O. and EMS Onset/Context/Timing Onset: Today (About 5 hours prior to arrival/evaluation) Context: Sudden Onset (Either before getting out of bed or just after, unclear) Timing: Continuous Quality and Location: Positive for Slurred Speech and - (Cannot control my muscles. Vertigo symptoms and nausea/vomiting.) Associated Symptoms Associated Symptoms: Positive for Nausea and Vomiting; Negative for Headache and Chest Pain Narrative Narrative: Got out of bed and appeared to be off balance to , patient states that things were flying all around, he admits to feeling disoriented. states he is slurring his speech and speaking funny, which is abnormal for him. Has been having right ear pain for around 2 months, saw otolaryngology for it was placed on steroids transiently, scheduled to go back for a follow-up at some point soon. [facility] Medical History Allergic rhinitis due to other allergen Erectile dysfunction Essential hypertension History of basal cell carcinoma Pure hypercholesterolemia Right bundle branch block Spondylolisthesis Type 2 diabetes mellitus Home Medications metformin 1,000 mg tablet 1,000 mg PO DAILY 06/02/18 [History Last Taken Unknown] metformin 500 mg PO QHS 05/30/19 [History Last Taken Unknown] diazepam 5 mg tablet 5 mg PO PRN PRN tab 11/26/20 [History Last Taken Unknown] fluticasone propionate 50 mcg/actuation nasal spray,suspension 1 spray INTRANASAL DAILY g 11/26/20 [History Last Taken Unknown] lisinopril 2.5 mg tablet 2.5 mg PO DAILY tab 11/26/20 [History Last Taken Unknown] loratadine 10 mg tablet 10 mg PO DAILY 11/26/20 [History Last Taken Unknown] sildenafil 100 mg tablet 100 mg PO DAILY PRN 11/26/20 [History Last Taken Unknown] simvastatin 20 mg tablet 10 mg PO QHS tab 11/26/20 [History Last Taken Unknown] Allergy/AdvReac Type Severity Reaction Status Date / Time Penicillins Allergy Intermediate Rash Verified 02/08/21 05:11 Family History Mother Cancer breast Father Cancer leukemia Surgical History History of colonoscopy (01/19/14) History of esophagogastroduodenoscopy (EGD) (04/19/14) History of sinus surgery (~1989) History of varicose veins Social History Smoking Status: Never smoker alcohol intake: never substance use type: does not use caffeine: Yes Type: coffee Number of servings: 3 ROS ROS ED Constitutional Constitutional ED: Denies chills or fever(s) Eyes Eyes: Denies change in vision or diplopia ENT ENT ED: Reports ear pain right (More decreased hearing as well as some discomfort; no discharge); Denies rhinorrhea or sore throat Cardiovascular Cardiovascular: Denies chest pain or palpitations Respiratory/Chest Respiratory/Chest: Denies cough or dyspnea Gastrointestinal Gastrointestinal: Reports nausea and vomiting; Denies abdominal pain or diarrhea Genitourinary Genitourinary ED: Denies dysuria or hematuria Musculoskeletal Musculoskeletal: Denies back pain or neck pain Integumentary Denies abscess or rash Neurologic Neurologic: Reports as per HPI, abnormal speech, confusion and vertigo; Denies headache(s), paresthesias or weakness Psychiatric Psychiatric: Denies anxiety or suicidal thoughts EXAM Physical Exam Const Vital Signs: 02/08/21 05:09 02/08/21 05:43 02/08/21 06:22 Temperature 97.0 F L Temperature Source Temporal Pulse Rate 91 85 Respiratory Rate 17 16 Blood Pressure 140/79 H 124/76 H Blood Pressure Mean 99 92 Pulse Ox 95 95 97 Oxygen Delivery Method Room Air Room Air Room Air Positive well nourished and well developed Constitutional Narrative: Somnolent General Appearance ED: well developed and NAD HEENT Reports head/scalp atraumatic, EAC's normal, TM's normal bilaterally and moist mucous membranes normocephalic and atraumatic Eyes PERRL and EOMs intact bilaterally EOM: Negative for nystagmus Neck full ROM, supple and no carotid bruits Resp normal respiratory effort and clear to auscultation bilaterally Cardio regular rate, regular rhythm and no murmurs Rate: Negative for tachycardic GI non-tender and non-distended Auscultation: normoactive bowel sounds Palpation: soft Back/Spine no CVA tenderness General Back: other FROM Extremity normal to inspection General Extremety ED: Negative for edema, pulses abnormal or tenderness General Extremity: Negative for edema or pulses abnormal Neuro oriented x3, CN's II-XII intact bilaterally and no sensory deficits noted Neuro Narrative: Patient has smooth [id number] bilaterally, but abnormal plkb-[id number] bilaterally and symmetrically. Mild slurred speech, no aphasia. Positive Joseluis-Hallpike to the right with horizontal nystagmus elicited. Patient has obvious disequilibrium when trying to stand although he does not fall. Sensorium / Orientation: awake and alert Motor Exam: strength 5/5 throughout Skin no rashes or lesions noted and no wounds STROKE Vital Signs/Narrative: Vital Signs Temp Pulse Resp BP Pulse Ox 02/08/21 06:22 85 16 124/76 H 97 02/08/21 05:43 95 02/08/21 05:09 97.0 F L 91 17 140/79 H 95 NIHSS Initial: 1a Level of Consciousness: 1 1b LOC Questions (Score 2 if aphasic/stupor): 0 1c LOC Commands (Only score 1st attempt): 0 2 Best Gaze (If aphasic, use reflexive mvmts.): 0 3 Visual: 0 4 Facial Palsy: 0 5 Motor Arm Right (UN = amputation/fusion): 0 5 Motor Arm Left: 0 6 Motor Leg Right: 0 6 Motor Leg Left: 0 7 Limb ataxia (Only + if out of proportion): 2 8 Sensory (Aphasia/stupor=0 or 1, coma=2): 0 9 Best Language: 0 10 Dysarthria (mute, coma=2, intubated=UN): 1 11 Extinction and Inattention (only scored if +): 0 Total Score: 4 MDM MDM MDM Narrative Medical decision making narrative: Stat CT and CTA of the head and neck are obtained, both are negative. Labs show mild renal insufficiency, glucose 264, otherwise unremarkable. EKG is unremarkable showing sinus rhythm. With the recent right ear pain and the sudden onset symptoms getting out of bed and exam findings all consistent with peripheral vertigo; the disorientation is commonly seen with older patients that get vertigo from any cause because it is still uncomfortable and disorienting. Slurred speech may or may not be related to the hour that he is here versus some other process. Since the patient is having a lot of trouble and is not steady on his feet from his acute symptoms, plan will be for admission for further testing to rule out central etiology. Lab Data Attestation: I reviewed the patient's lab results. Labs: Laboratory Results - last 24 hr 02/08/21 02/08/21 02/08/21 05:12 05:12 05:44 WBC 8.0 RBC 3.86 L Hgb 12.2 L Hct 37.3 L MCV 96.6 H MCH 31.6 MCHC 32.7 RDW Std Deviation 43.5 RDW Coeff of Laya 12.2 Plt Count 314 MPV 9.1 Immature Gran % (Auto) 0.500 Neut % (Auto) 76.5 H Lymph % (Auto) 17.6 L [place] % (Auto) 4.4 Eos % (Auto) 0.4 Baso % (Auto) 0.6 Absolute Neuts (auto) 6.1 Absolute Lymphs (auto) 1.40 Nucleated RBC % 0 Sodium 136 Potassium 4.7 Chloride 100 Carbon Dioxide 28.0 Anion Gap 8 BUN 31 H Creatinine 1.54 H Estim Creat Clear Calc 48.99 Est GFR (MDRD) Af Amer 58 L Est GFR (MDRD) Non-Af 48 L BUN/Creatinine Ratio 20.1 H Glucose 264 H Calcium 8.9 Troponin I High Sens 6.5 POC Glucose 251 H Radiography Diagnostic Testing: Radiology Impression Brain CT 02/08/21 05:35 IMPRESSION: No evidence of acute intracranial abnormality. Individualized dose optimization techniques were used for this CT. at 0645 Reported and signed by: Kimani Soni MD Electronically Signed: Kimani Soni MD at 6:44 EDT Tel , Service support , ADDENDUM: 02/08/21 0652 IMPRESSION: No evidence of acute intracranial abnormality. Individualized dose optimization techniques were used for this CT. at 0645 Reported and signed by: Kimani Soni MD N.B. : The above Results were Read Back by Kimani Soni MD to Carlo Bob MD, and understanding confirmed on 02/08/2021 06:45:36 (ET). Electronically Signed: Kimani Soni MD at 6:44 EDT Tel , Service support , Chest X-Ray 02/08/21 05:35 IMPRESSION: No radiographic evidence of acute cardiopulmonary disease. at 0624 Reported and signed by: Kimani Soni MD Electronically Signed: Kimani Soni MD at 6:23 EDT Tel , Service support , Head/Neck CTA 02/08/21 05:37 IMPRESSION: 1. CTA head and neck with no acute arterial occlusive disease or other acute abnormality. 2. Multilevel cervical spondylosis. Individualized dose optimization techniques were used for this CT. at 0708 Reported and signed by: Kimani Soni MD N.B. : The above Results were Read Back by Kimani Soni MD to Carlo Bob MD, and understanding confirmed on 02/08/2021 07:07:28 (ET). Electronically Signed: Kimani Soni MD at 7:06 EDT Tel , Service support , EKG Initial EKG: Attestation: I personally reviewed and interpreted this EKG as follows: Interpretation: Sinus Rhythm, No Acute Injury Pattern, RBBB and AV Block (1st deg) Prior EKG tracings: available for review Prior: Unchanged Stroke Documentation Questions Stroke Team Activated: No (Out of TPA window) Was Patient considered for Endovascular Intervention?: No (neg CTA) IV Alteplase (t-PA) Administered: No (Outside of window) Discharge Plan Dx/Rx/DC Orders Clinical Impression: Acute severe vertigo, Dysarthria, Acute alteration in mental status Disposition Disposition: Acute Care Hospital [facility]
[2021-02-08 05:45] LABS: Absolute Neutrophil Count 6.1 X10^3/uL (2.0-7.7); Basophil# 0.05 X10^3/uL; Basophil% 0.6 % (0-1); Eosinophil# 0.03 X10^3/uL; Eosinophils% 0.4 % (0-5); Hematocrit 37.3 % (40-54); Hemoglobin 12.2 g/dL (13.0-16.5); Lymphocyte % 17.6 % (19-41); Mean Corp Hgb Conc 32.7 g/dL (32-36); Mean Corpuscular Hgb 31.6 pg (27.0-32.0); Mean Corpuscular Volume 96.6 fL (80-94); Mean Platelet Vol. 9.1 fl (6.2-12.0); Monocyte# 0.35 X10^3/uL; Monocyte% 4.4 % (0-10); NRBC Flagged by Analyzer 0 % (0-5); Neutrophil # 6.09 X10^3/uL (2.7-7.7); Neutrophil % 76.5 % (47-70); Platelet Count 314 K/mm3 (150-450); RBC Distribution Width CV 12.2 % (11.6-14.6); RBC Distribution Width SD 43.5 fl (35.1-43.9); Red Blood Count 3.86 M/mm3 (4.6-6.2)
[2021-02-08 05:56] LABS: Bedside Glucose 251 mg/dL (70-110)
[2021-02-08 06:02] LABS: Anion Gap 8 (5-15); BUN 31 mg/dL (7-18); BUN/Creat Ratio 20.1 RATIO (10-20); Calcium,Total 8.9 mg/dL (8.5-10.1); Chloride 100 mmol/L (98-107); Creatinine, Serum 1.54 mg/dL (0.70-1.30); EST Glomerular Filtration Rate 48 mL/min (>60); Est Glom Filt Rate - Afr Amer 58 mL/min (>60); Estimated Creatinine Clearance 48.99 ml/min; Glucose 264 mg/dL (74-106); Potassium 4.7 mmol/L (3.5-5.1); Sodium Level 136 mmol/L (136-145); Troponin-I HS 6.5 pg/mL (3.0-78.5)
[2021-02-08] MEDS: Midazolam 2 MG/2 ML Syringe 3 MG IV (06:21)
--- NOTE | 2021-02-08 07:28 | MRI_ITS ---
STUDY: MRI BRAIN WITHOUT CONTRAST REASON FOR EXAM: Male, 71 years old. cva TECHNIQUE: Standardized multiplanar fat and water weighted pulse sequences were obtained. COMPARISON: CT 02/08/2021 FINDINGS: There is mild cerebral atrophy with widening of the extra-axial spaces and ventricular dilatation. There are a limited number of small white matter hyperintensities, distributed throughout the deep white matter tracts of the cerebral hemispheres, consistent with mild chronic white matter ischemic changes. There is no evidence for recent intracranial ischemia or other cause of cytotoxic edema on diffusion weighted imaging (DWI). Normal T2* images of the brain without demonstrated susceptibility artifact. There is no demonstrated hemosiderin stain. Normal bilateral basal ganglia. Normal thalami. There is no extra-axial fluid accumulation. Normal flow voids within the major intracranial circulation suggesting patency by spin echo criteria. Normal sella turcica, pituitary gland, infundibular stalk, optic chiasm and hypothalamus. Normal tectal plate and pineal gland. Normal midbrain, micaela and medulla. Normal cerebellum. Normal basal cisterns. Normal bilateral temporal bones. Normal bilateral internal auditory canals. No demonstrated orbital abnormality, within the constraints of a routine brain study. Normal visualized paranasal sinuses. Normal calvarium and skull base. Normal visualized soft tissue structures. Normal visualized upper cervical spine. MRI/Brain without Contrast IMPRESSION: Involutional changes of the brain, as described above. No acute infarct. Electronically Signed: Kennedy Ivey MD at 13:46 EDT Tel , Service support ,
--- NOTE | 2021-02-08 07:29 | PCM.HP.STD ---
HPI - General General Date of Admission: 02/08/21 Date of Service: 02/08/21 Chief Complaint: Dizziness HPI Narrative ALEXANDRIA FREED, is a 71 M with past medical history segment for essential hypertension, diabetes mellitus type 2 anxiety disorder who presents with dizziness. Per patient his symptoms started after taking a new brand of his CBD oil which is being prescribed for anxiety. He did complain of seeing flashes of light being nauseous and dizzy. Patient also did complain of inability to ambulate. Symptoms started about 10 PM the night prior to his admission. In view of the worsening symptoms he presented to the emergency department. CT of the head obtained on admission was negative admitted for subsequent inpatient evaluation [facility] Medical History (Updated 02/08/21 @ 08:[address] Sheldon Cisneros MD) Allergic rhinitis due to other allergen Erectile dysfunction Essential hypertension History of basal cell carcinoma Pure hypercholesterolemia Right bundle branch block Spondylolisthesis Type 2 diabetes mellitus Home Medications metformin 1,000 mg tablet 1,000 mg PO DAILY 06/02/18 [History Last Taken Unknown] metformin 500 mg PO QHS 05/30/19 [History Last Taken Unknown] diazepam 5 mg tablet 5 mg PO PRN PRN tab 11/26/20 [History Last Taken Unknown] fluticasone propionate 50 mcg/actuation nasal spray,suspension 1 spray INTRANASAL DAILY g 11/26/20 [History Last Taken Unknown] lisinopril 2.5 mg tablet 2.5 mg PO DAILY tab 11/26/20 [History Last Taken Unknown] loratadine 10 mg tablet 10 mg PO DAILY 11/26/20 [History Last Taken Unknown] sildenafil 100 mg tablet 100 mg PO DAILY PRN 11/26/20 [History Last Taken Unknown] simvastatin 20 mg tablet 10 mg PO QHS tab 11/26/20 [History Last Taken Unknown] Allergy/AdvReac Type Severity Reaction Status Date / Time Penicillins Allergy Intermediate Rash Verified 02/08/21 05:11 Family History Mother Cancer breast Father Cancer leukemia Surgical History History of colonoscopy (01/19/14) History of esophagogastroduodenoscopy (EGD) (04/19/14) History of sinus surgery (~1989) History of varicose veins Social History Smoking Status: Never smoker alcohol intake: never substance use type: does not use caffeine: Yes Type: coffee Number of servings: 3 ROS ROS Narrative GENERAL: denies fever, chills, night sweats, HEENT: denies headache, sinus congestion, RESPIRATORY: denies cough, sputum production, CARDIAC: denies chest pain, palpitations, orthopnea, GASTROINTESTINAL: denies abdominal pain, nausea, GENITOURINARY: denies dysuria, urgency, frequency, EXTREMITY: denies swelling MUSCULOSKELETAL: denies current joint pain or tenderness NEUROLOGIC: denies focal numbness, weakness, tingling HEMATOLOGIC: denies easy bruising and/or hemorrhage INTEGUMENT: denies rashes PSYCHIATRIC: denies suicidal or homicidal ideation Vital Signs Vital Signs Vital Signs: 02/08/21 05:09 02/08/21 05:43 02/08/21 06:22 Temperature 97.0 F L Temperature Source Temporal Pulse Rate 91 85 Respiratory Rate 17 16 Blood Pressure 140/79 H 124/76 H Blood Pressure Mean 99 92 Pulse Ox 95 95 97 Oxygen Delivery Method Room Air Room Air Room Air Weight Weight: 93.3 kg Body Mass Index (BMI) 27.8 Physical Exam Narrative GENERAL: Appears ill looking HEENT: Atraumatic; EYES; Anicteric, Normal Conjunctiva NECK; supple, normal thyroid, RESPIRATORY: Diminished to auscultation CARDIOVASCULAR: Regular S1 S2, GI: soft, normoactive bowel sounds, : No Renal angle tenderness; EXTREMITIES: No edema, no clubbing, MUSCULOSKELETAL: no muscle waisting NEURO: Awake; no lateralizing signs. SKIN: No Rash PSYCH; Flat affect Results Lab / Micro Data Result Diagrams: 02/08/21 05:12 02/08/21 05:12 Labs: Laboratory Results - last 24 hr 02/08/21 05:12: WBC 8.0, RBC 3.86 L, Hgb 12.2 L, Hct 37.3 L, MCV 96.6 H, MCH 31.6, MCHC 32.7, RDW Std Deviation 43.5, RDW Coeff of Laya 12.2, Plt Count 314, MPV 9.1, Immature Gran % (Auto) 0.500, Neut % (Auto) 76.5 H, Lymph % (Auto) 17.6 L, [place] % (Auto) 4.4, Eos % (Auto) 0.4, Baso % (Auto) 0.6, Absolute Neuts (auto) 6.1, Absolute Lymphs (auto) 1.40, Nucleated RBC % 0 02/08/21 05:12: Sodium 136, Potassium 4.7, Chloride 100, Carbon Dioxide 28.0, Anion Gap 8, BUN 31 H, Creatinine 1.54 H, Estim Creat Clear Calc 48.99, Est GFR (MDRD) Af Amer 58 L, Est GFR (MDRD) Non-Af 48 L, BUN/Creatinine Ratio 20.1 H, Glucose 264 H, Calcium 8.9, Troponin I High Sens 6.5 02/08/21 05:44: POC Glucose 251 H Radiology Impression Brain CT 02/08/21 05:35 IMPRESSION: No evidence of acute intracranial abnormality. Individualized dose optimization techniques were used for this CT. at 0645 Reported and signed by: Kimani Soni MD Electronically Signed: Kimani Soni MD at 6:44 EDT Tel , Service support , ADDENDUM: 02/08/21 0652 IMPRESSION: No evidence of acute intracranial abnormality. Individualized dose optimization techniques were used for this CT. at 0645 Reported and signed by: Kimani Soni MD N.B. : The above Results were Read Back by Kimani Soni MD to Carlo Bob MD, and understanding confirmed on 02/08/2021 06:45:36 (ET). Electronically Signed: Kimani Soni MD at 6:44 EDT Tel , Service support , Chest X-Ray 02/08/21 05:35 IMPRESSION: No radiographic evidence of acute cardiopulmonary disease. at 0624 Reported and signed by: Kimani Soni MD Electronically Signed: Kimani Soni MD at 6:23 EDT Tel , Service support , Head/Neck CTA 02/08/21 05:37 IMPRESSION: 1. CTA head and neck with no acute arterial occlusive disease or other acute abnormality. 2. Multilevel cervical spondylosis. Individualized dose optimization techniques were used for this CT. at 0708 Reported and signed by: Kimani Soni MD N.B. : The above Results were Read Back by Kimani Soni MD to Carlo Bob MD, and understanding confirmed on 02/08/2021 07:07:28 (ET). Electronically Signed: Kimani Soni MD at 7:06 EDT Tel , Service support , ADDENDUM: 02/08/21 0715 IMPRESSION: 1. CTA head and neck with no acute arterial occlusive disease or other acute abnormality. 2. Multilevel cervical spondylosis. Individualized dose optimization techniques were used for this CT. at 0708 Reported and signed by: Kimani Soni MD N.B. : The above Results were Read Back by Kimani Soni MD to Carlo Bob MD, and understanding confirmed on 02/08/2021 07:07:28 (ET). Electronically Signed: Kimani Soni MD at 7:06 EDT Tel , Service support , Assessment & Plan Assessment/Plan (1) Acute severe vertigo: (2) Essential hypertension: (3) Type 2 diabetes mellitus: PLAN: Patient is a 71-year-old gentleman presented with nausea vomiting and vertigo 1. Acute vertigo ?Differential diagnosis includes peripheral vestibular dysfunction versus posterior circulation CVA versus side effect of her new medication. Patient has been admitted to a monitored bed ordered neuro checks every [address] and CTA of the head and neck obtained in the ED which was unremarkable. Subsequently ordered MRI to rule out posterior circulation CVA. In the meantime patient treated symptomatically with antiemetics and IV fluid 2. Acute renal insufficiency ?Secondary to dehydration started on IV fluid with subsequent monitoring of electrolytes ordered 3. Essential hypertension ?Patient blood is on the low side. Lisinopril currently being held with every 4 vitals ordered 4. Diabetes mellitus type II -patient's oral hypoglycemics held. Placed on Accu-Cheks a.c. and at bedtime and covered with sliding scale insulin 5. Dyslipidemia ?Patient was previously on statin therapy. Patient currently not on any statins 6. Anxiety disorder ?Patient apparently on CBD oil 7. DVT prophylaxis - On enoxaparin Advance planning; did discuss with the patient and family regarding advanced directives as well as CODE STATUS. Did explain the various scenarios involved ( FULL CODE, DNR CCA, DNR CCA with no intubation, and DNR CC and what each meant) patient elected to full code with CPR and intubation if warranted. Order was placed. Time spent on discussion 18 minutes. Charges/Coding Visit Charges OBSV E&M: 80981 Initial observation care L3 Procedures Hospitalists Procedures: 08655 Advncd Care Plan 30 Min
--- NOTE | 2021-02-08 08:14 | ECHOD_ITS ---
Reason For Study: TIA/CVA Procedure This was a 2D Doppler, Color Flow transthoracic echocardiogram. The study was technically difficult. Exam performed portable in patient room. Left Ventricle Normal LV size. Left ventricular systolic function is normal. The estimated ejection fraction is 65 %. Diastolic function is indeterminate. No regional wall motion abnormalities noted. Right Ventricle Normal RV size. Normal systolic function. Atria The left atrium is mildly enlarged. Normal right atrium. No doppler evidence for ASD. Bubble contrast study negative for right to left interatrial shunt. Mitral Valve There is moderate mitral annular calcification. Extension the mitral annular calcification on the base of the posterior mitral valve leaflet. Mild (1+) mitral valve insufficiency. Tricuspid Valve Normal tricuspid valve. Trivial tricuspid valve insufficiency. Unable to estimate RV systolic pressure/pulmonary artery pressure due to technically difficult study. Aortic Valve Trisinus/trileaflet aortic valve. Mild focal aortic valve calcification. Trivial aortic valve insufficiency. Pulmonic Valve The pulmonic valve is not well visualized. Trivial pulmonic valve insufficiency. Great Vessels Borderline enlarged aortic root. Pericardium/Pleural No pericardial effusion. Medication Performed a rapid injection of agitated mix of 9 cc saline and 1cc air to assess for atrial septal defect. MMode/2D Measurements & Calculations LVIDd: 5.3 cm IVSd: 1.2 cm Ao root diam: 3.9 cm LVIDs: 2.7 cm LVPWd: 1.00 cm RVDd: 4.2 cm FS: 48.5 % LAV(MOD-bp): 68.8 ml LA A4 area: 22.8 cm2 LA dimension(2D): 3.6 cm LAV(MOD-bp) Indexed: 32.0 ml/m2 LAV(MOD-sp2): 62.2 ml LAV(MOD-sp4): 64.0 ml RA A4 area: 14.1 cm2 Time Measurements MV dec time: 0.22 sec Doppler Measurements & Calculations MV E max janes: 54.0 cm/sec Lat Peak E' Janes: 7.4 cm/sec Med Peak E' Janes: 6.3 cm/sec MV A max janes: 62.6 cm/sec E/E' lat: 7.3 E/E' med: 8.6 MV E/A: 0.86 Ao V2 max: 145.4 cm/sec LV V1 max: 91.8 cm/sec PA V2 max: 117.3 cm/sec Ao max P.5 mmHg LV V1 max P.4 mmHg ECHO/Echo Complete Interpretation Summary The study was technically difficult. Left ventricular systolic function is normal. The estimated ejection fraction is 65 %. The left atrium is mildly enlarged. There is moderate mitral annular calcification. Extension the mitral annular calcification on the base of the posterior mitral valve leaflet. Mild (1+) mitral valve insufficiency. Trivial tricuspid valve insufficiency. Mild focal aortic valve calcification. Trivial aortic valve insufficiency. Trivial pulmonic valve insufficiency. Borderline enlarged aortic root. Unable to estimate RV systolic pressure/pulmonary artery pressure due to techni marcus difficult study. Diastolic function is indeterminate. Bubble contrast study negative for right to left interatrial shunt. Ordering Physician: Sheldon Cisneros Referring Physician: Segundo Shafer Performed By: Allyssa Plascencia, VALENTIN, RVT
[2021-02-08 11:28] LABS: Thyroid Stim Hormone (TSH) 0.17 uIU/mL (0.358-3.74); Troponin-I HS 8.3 pg/mL (3.0-78.5)
[2021-02-08] MEDS: Enoxaparin 40 MG/0.4 ML Syringe SC (11:28)
[2021-02-08] MEDS: Aspirin 81 MG TAB.CHEW PO (11:29)
[2021-02-08] MEDS: Loratadine 10 MG Tablet PO (11:29)
[2021-02-08] MEDS: KCL 20MEQ in 0.9% NS 20 MEQ/1,000 ML IV.SOLN. 100 MEQ IV (11:29)
[2021-02-08] MEDS: LORazepam 2 MG/ML Syringe 1 MG IV (11:35)
[2021-02-08 12:46] LABS: Bedside Glucose 192 mg/dL (70-110)
[2021-02-08 16:25] LABS: Free T3 2.5 pg/mL (2.18-3.98); T4 Free Direct 0.85 ng/dL (0.76-1.46); T4 Total, Thyroxin 7.8 ug/dL (4.5-12.1)
[2021-02-08 18:06] LABS: Bedside Glucose 151 mg/dL (70-110)
[2021-02-08 20:11] LABS: Amphetamine Urine VISTA NEGATIVE (<1000 ng/mL); Barbiturate Urine VISTA NEGATIVE (< 200 ng/mL); Benzodiazepine Urine VISTA POSITIVE (< 200 ng/mL); Cocaine Urine VISTA NEGATIVE (< 300 ng/mL); Ecstacy Urine VISTA NEGATIVE (< 500 ng/mL); Methadone Urine VISTA NEGATIVE (< 300 ng/mL); PCP Urine VISTA NEGATIVE (< 25 ng/mL); THC Urine VISTA POSITIVE (< 50 ng/mL); Vista UDS pH Range 7
[2021-02-08] MEDS: Atorvastatin Calcium 80 MG Tablet PO (20:34)
[2021-02-08 21:20] LABS: Bedside Glucose 175 mg/dL (70-110)
[2021-02-09] MEDS: KCL 20MEQ in 0.9% NS 20 MEQ/1,000 ML IV.SOLN. 100 MEQ IV (01:27)
[2021-02-09 03:00] VITALS: BP 103/64; PULSE 58; PULSE 61; RESP 14; TEMP 36.4; O2SAT 96
[2021-02-09 06:36] LABS: Bedside Glucose 136 mg/dL (70-110)
[2021-02-09 06:39] LABS: Absolute Lymphocyte Count 1.49 X10^3/uL (0.83-4.51); Absolute Neutrophil Count 3.7 X10^3/uL (2.0-7.7); Basophil# 0.03 X10^3/uL; Basophil% 0.5 % (0-1); Eosinophil# 0.22 X10^3/uL; Eosinophils% 3.6 % (0-5); Hematocrit 34.2 % (40-54); Hemoglobin 11.1 g/dL (13.0-16.5); Lymphocyte # 1.49 X10^3/ul (0.83-4.51); Lymphocyte % 24.7 % (19-41); Mean Corp Hgb Conc 32.5 g/dL (32-36); Mean Corpuscular Hgb 31.3 pg (27.0-32.0); Mean Corpuscular Volume 96.3 fL (80-94); Mean Platelet Vol. 8.9 fl (6.2-12.0); Monocyte# 0.58 X10^3/uL; Monocyte% 9.6 % (0-10); NRBC Flagged by Analyzer 0 % (0-5); Neutrophil % 61.3 % (47-70); Platelet Count 233 K/mm3 (150-450); RBC Distribution Width CV 12.2 % (11.6-14.6); RBC Distribution Width SD 43.5 fl (35.1-43.9); Red Blood Count 3.55 M/mm3 (4.6-6.2)
[2021-02-09 07:02] VITALS: PULSE 58
[2021-02-09 07:22] LABS: Anion Gap 7 (5-15); BUN 20 mg/dL (7-18); BUN/Creat Ratio 18.5 RATIO (10-20); Calcium,Total 8.4 mg/dL (8.5-10.1); Chloride 105 mmol/L (98-107); Cholesterol 172 mg/dL (200); Creatinine, Serum 1.08 mg/dL (0.70-1.30); EST Glomerular Filtration Rate 72 mL/min (>60); Est Glom Filt Rate - Afr Amer 87 mL/min (>60); Estimated Creatinine Clearance 69.86 ml/min; Glucose 149 mg/dL (74-106); High Density Lipoprotein 46 mg/dL; Magnesium 1.6 mg/dL (1.6-2.6); Potassium 4.9 mmol/L (3.5-5.1); Sodium Level 138 mmol/L (136-145); Triglycerides 133 mg/dL; Very Low Density Lipoprotein 27 mg/dL (5-40)
--- NOTE | 2021-02-09 07:46 | DS.PCM_ITS ---
Providers Date of Admission: 02/08/21 Primary Care Physician: Dr. Georges Shafer MD Reason For Visit: VERTOGO Diagnosis Discharge Diagnosis (1) Acute severe vertigo: Status: Acute Code(s): R42 - Dizziness and giddiness (2) Essential hypertension: Status: Chronic Code(s): I10 - Essential (primary) hypertension (3) Type 2 diabetes mellitus: Status: Chronic Code(s): E11.9 - Type 2 diabetes mellitus without complications Medications at Discharge Home Medications metformin 1,000 mg tablet 1,000 mg PO DAILY 06/02/18 metformin 500 mg PO QHS 05/30/19 diazepam 5 mg tablet 5 mg PO PRN PRN tab 11/26/20 fluticasone propionate 50 mcg/actuation nasal spray,suspension 1 spray INTRANASAL DAILY g 11/26/20 lisinopril 2.5 mg tablet 2.5 mg PO DAILY tab 11/26/20 loratadine 10 mg tablet 10 mg PO DAILY 11/26/20 sildenafil 100 mg tablet 100 mg PO DAILY PRN 11/26/20 multivitamin 1 tab PO DAILY 02/08/21 Hospital Course Summary of Care Provided Minutes Spent on Discharge: 35 Hospital Course: 1. Acute vertigo ?Differential diagnosis includes peripheral vestibular dysfunction versus posterior circulation CVA versus side effect of her new medication. Patient has been admitted to a monitored bed ordered neuro checks every [address] and CTA of the head and neck obtained in the ED which was unremarkable. Subsequently ordered MRI to rule out posterior circulation CVA. In the meantime patient treated symptomatically with antiemetics and IV fluid -MRI obtained was negative for acute CVA. Patient symptoms did significantly improve. Was therefore felt her presentation was secondary to reaction to his new CBD oil 2. Acute renal insufficiency ?Secondary to dehydration started on IV fluid with subsequent monitoring of electrolytes ordered ?Kidney function back to baseline at time of discharge 3. Essential hypertension ?Patient blood is on the low side. Lisinopril currently being held with every 4 vitals ordered 4. Diabetes mellitus type II -patient's oral hypoglycemics held. Placed on Accu-Cheks a.c. and at bedtime and covered with sliding scale insulin 5. Dyslipidemia ?Patient was previously on statin therapy. Patient currently not on any statins 6. Anxiety disorder ?Patient apparently on CBD oil 7. DVT prophylaxis - On enoxaparin Physical Exam Narrative GENERAL:cooperative HEENT: Atraumatic; EYES; Anicteric, Normal Conjunctiva NECK; supple, normal thyroid, RESPIRATORY: Diminished to auscultation CARDIOVASCULAR: Regular S1 S2, GI: soft, normoactive bowel sounds, : No Renal angle tenderness; EXTREMITIES: No edema, no clubbing, MUSCULOSKELETAL: no muscle waisting NEURO: Awake; no lateralizing signs. SKIN: No Rash PSYCH; Flat affect Weight / BMI Weight Weight: 87.5 kg Body Mass Index (BMI) 26.1 ABG / Lab / Microbiology Data Result Diagrams: 02/09/21 05:40 02/09/21 05:40 Laboratory: Laboratory Results - last 24 hr 02/08/21 10:43: Troponin I High Sens 8.3, TSH 0.17 L 02/08/21 10:43: Ethyl Alcohol 5.0 02/08/21 10:43: Free T4 0.85, Thyroxine (T4) 7.8, Free T3 pg/dL 2.5 02/08/21 11:39: POC Glucose 192 H 02/08/21 17:05: POC Glucose 151 H 02/08/21 19:47: Urine Opiates Screen NEGATIVE, Urine Methadone Screen NEGATIVE, Ur Barbiturates Screen NEGATIVE, Ur Phencyclidine Scrn NEGATIVE, Ur Amphetamines Screen NEGATIVE, U Methamphetamin-MDMA NEGATIVE, U Benzodiazepines Scrn POSITIVE H, Urine Cocaine Screen NEGATIVE, U Cannabinoids Screen POSITIVE H, Ur Drug Screen Comment 02/08/21 20:35: POC Glucose 175 H 02/09/21 05:40: WBC 6.0, RBC 3.55 L, Hgb 11.1 L, Hct 34.2 L, MCV 96.3 H, MCH 31.3, MCHC 32.5, RDW Std Deviation 43.5, RDW Coeff of Laya 12.2, Plt Count 233, MPV 8.9, Immature Gran % (Auto) 0.300, Neut % (Auto) 61.3, Lymph % (Auto) 24.7, [place] % (Auto) 9.6, Eos % (Auto) 3.6, Baso % (Auto) 0.5, Absolute Neuts (auto) 3.7, Absolute Lymphs (auto) 1.49, Nucleated RBC % 0 02/09/21 05:40: Sodium 138, Potassium 4.9, Chloride 105, Carbon Dioxide 26.0, Anion Gap 7, BUN 20 H, Creatinine 1.08, Estim Creat Clear Calc 69.86, Est GFR (MDRD) Af Amer 87, Est GFR (MDRD) Non-Af 72, BUN/Creatinine Ratio 18.5, Glucose 149 H, Calcium 8.4 L, Magnesium 1.6, Triglycerides 133, Cholesterol 172, LDL Cholesterol 99, VLDL Cholesterol 27, HDL Cholesterol 46 02/09/21 06:28: POC Glucose 136 H Radiography Diagnostic Testing: Radiology Impression Brain MRI 02/08/21 07:28 IMPRESSION: Involutional changes of the brain, as described above. No acute infarct. Electronically Signed: Kennedy Ivey MD at 13:46 EDT Tel , Service support , Echocardiogram 02/08/21 08:14 Interpretation Summary The study was technically difficult. Left ventricular systolic function is normal. The estimated ejection fraction is 65 %. The left atrium is mildly enlarged. There is moderate mitral annular calcification. Extension the mitral annular calcification on the base of the posterior mitral valve leaflet. Mild (1+) mitral valve insufficiency. Trivial tricuspid valve insufficiency. Mild focal aortic valve calcification. Trivial aortic valve insufficiency. Trivial pulmonic valve insufficiency. Borderline enlarged aortic root. Unable to estimate RV systolic pressure/pulmonary artery pressure due to technically difficult study. Diastolic function is indeterminate. Bubble contrast study negative for right to left interatrial shunt. _ Ordering Physician: Sheldon Cisneros Referring Physician: Segundo Shafer Performed By: Allyssa Plascencia, MARLOCS, RVT D/C Instructions Discharge Diet: 1800 Calorie Control Diet Discharge Activity: Return to Normal Activity Call your doctor if you observe: Fever of 101 or Higher, Shortness of breath, Fainting spells and Chest pain Meaningful Use Info Meaningful Use Diagnoses (Choose all that apply): None applicable Discharge Plan Admission Admit Date/Time: 02/08/21 07:28 Primary Reason for Your Visit: Acute vertigo Attending Provider: Sheldon Cisneros Primary Care Provider: Georges Shafer Instructions Additional Instructions / Restrictions: Patient Problems: Altered Health Status related to Hospitalization Patient Goals: *Optimal Level of Health *Keep Appointments *Medication Compliance *Remain Safe Discharge Orders/Prescriptions Prescriptions: Continued metformin 1,000 mg tablet 1,000 mg PO DAILY RF: 0 diazepam 5 mg tablet 5 mg PO PRN PRN (Reason: claustrophobia) RF: 0 loratadine [Claritin] 10 mg tablet 10 mg PO DAILY RF: 0 lisinopril 2.5 mg tablet 2.5 mg PO DAILY RF: 0 sildenafil 100 mg tablet 100 mg PO DAILY PRN (Reason: Sexual Activity) RF: 0 fluticasone propionate 50 mcg/actuation spray,suspension 1 spray intranasal DAILY RF: 0 metformin 500 MG tablet 500 mg PO QHS RF: 0 multivitamin Tablet 1 tab PO DAILY RF: 0 Referrals / Follow Up: Georges Shafer MD [Primary Care Provider] - In 1 Week Disposition Disposition (needs filled in before D/C Order can be placed): Home, Self Care Charges/Coding Visit Charges OBSV E&M: 56481 Observation care discharge
[2021-02-09 07:55] VITALS: O2SAT 98
[2021-02-09 09:00] VITALS: BP 130/81; PULSE 65; RESP 16; TEMP 37; O2SAT 98
[2021-02-09] MEDS: Lisinopril 2.5 MG Tablet PO (09:10)
[2021-02-09] MEDS: Loratadine 10 MG Tablet PO (09:10)
[2021-02-09] MEDS: Aspirin 81 MG TAB.CHEW PO (09:10)
--- NOTE | 2021-02-09 09:34 | PCM.DC ---
Discharge Instructions Diet Discharge Diet: 1800 Calorie Control Diet Dressing / Incision Call your doctor if you observe: Fever of 101 or Higher, Shortness of breath, Fainting spells and Chest pain Follow Up Care Test Results: Test results from this visit will be discussed in further detail at your follow-up appointment, if applicable. Discharge Plan Admission Admit Date/Time: 02/08/21 07:28 Attending Provider: Sheldon Cisneros Primary Care Provider: Georges Shafer Instructions Additional Instructions / Restrictions: Patient Problems: Altered Health Status related to Hospitalization Patient Goals: *Optimal Level of Health *Keep Appointments *Medication Compliance *Remain Safe Discharge Orders/Prescriptions Prescriptions: Continued metformin 1,000 mg tablet 1,000 mg PO DAILY RF: 0 diazepam 5 mg tablet 5 mg PO PRN PRN (Reason: claustrophobia) RF: 0 loratadine [Claritin] 10 mg tablet 10 mg PO DAILY RF: 0 lisinopril 2.5 mg tablet 2.5 mg PO DAILY RF: 0 sildenafil 100 mg tablet 100 mg PO DAILY PRN (Reason: Sexual Activity) RF: 0 fluticasone propionate 50 mcg/actuation spray,suspension 1 spray intranasal DAILY RF: 0 metformin 500 MG tablet 500 mg PO QHS RF: 0 multivitamin Tablet 1 tab PO DAILY RF: 0 Referrals / Follow Up: Georges Shafer MD [Primary Care Provider] - In 1 Week Disposition Disposition (needs filled in before D/C Order can be placed): Home, Self Care
== END 2021-02-09 09:43 | disposition home or self-care (01) ==
LOC: ED 06:56 → PCU 07:46
PROVIDERS: Admitting Provider Internal Medicine; Emergency Provider Emergency Medicine; PCP Family Medicine; Visit Provider Internal Medicine
DX: R42 Dizziness and giddiness (principal); I10 Essential (primary) hypertension; F41.9 Anxiety disorder, unspecified; E86.0 Dehydration; E11.9 Type 2 diabetes mellitus without complications; N28.9 Disorder of kidney and ureter, unspecified; E78.5 Hyperlipidemia, unspecified; R47.81 Slurred speech; R29.704 NIHSS score 4; Z79.899 Other long term (current) drug therapy; Z79.84 Long term (current) use of oral hypoglycemic drugs; R11.2 Nausea with vomiting, unspecified
CPT/HCPCS: 36415; 70450; 70496; 70498; 70551; 71045; 80048; 80061; 80307; 82077; 82962; 83735; 84436; 84439; 84443; 84481; 84484; 85025; 93005; 93306; 94762; 96361; 96372; 96374; 96375; 97802; 99218; 99285; Q9967; A4216; G0378

== ENCOUNTER 2022-01-25 15:55 | Emergency (ER) | payer MEDICARE, OTHER, SELFPAY ==
[2022-01-25 15:56] VITALS: BP 152/77; PULSE 87; RESP 20; TEMP 36.8; O2SAT 99; BMI 28.9
--- NOTE | 2022-01-25 16:25 | EX.ED.DYSGE1 ---
HPI History of Present Illness Chief Complaint: General Illness Informant: patient Onset/Context/Timing Onset: Days Context: Gradual Onset Timing: Continuous Quality: Lightheaded, confused Location: Generalized Worsened by: Standing up from a bending position Relieved by: Nothing Narrative Narrative: Patient presents with dizziness, fatigue, near syncopal episodes, and low temperatures that have been waxing and waning over the past few days. Patient admits to some sweats but denies any fevers or chills. Patient states he checked his temperature at home and it was low. Patient also states that he has had an increase in his heart rate. Patient states he is heart rate is normally in the 60s and 70s but it has been in the upper 80s over the last couple days. Patient states he feels lightheaded. Patient states this is worse whenever he bends over and then stands up quickly. Patient states he gets confused at times. Patient admits to nausea but denies any vomiting. Patient denies any headaches. Patient denies any visual changes. Patient denies any chest pain or palpitations. [facility] Medical History Allergic rhinitis due to other allergen Erectile dysfunction Essential hypertension History of basal cell carcinoma Pure hypercholesterolemia Right bundle branch block Spondylolisthesis Type 2 diabetes mellitus Home Medications metformin 1,000 mg tablet 1,000 mg PO DAILY 06/02/18 [History Last Taken Unknown] metformin 500 mg tablet 500 mg PO QHS 05/30/19 [History Last Taken Unknown] diazepam 5 mg tablet 5 mg PO PRN PRN claustrophobia 11/26/20 [History Last Taken Unknown] fluticasone propionate 50 mcg/actuation nasal spray,suspension 1 spray intranasal QHS 11/26/20 [History Last Taken Unknown] lisinopril 2.5 mg tablet 2.5 mg PO DAILY 11/26/20 [History Last Taken Unknown] loratadine 10 mg tablet (Claritin) 10 mg PO DAILY 11/26/20 [History Last Taken Unknown] multivitamin 1 tab PO DAILY 02/08/21 [History Last Taken Unknown] fluoxetine 40 mg capsule 1 cap PO DAILY 01/25/22 [History Last Taken Unknown] magnesium 500 mg tablet 500 mg PO DAILY supplement 01/25/22 [History Last Taken Unknown] tadalafil 5 mg tablet 1 tab PO DAILY PRN PRN Erectile Dysfunction 01/25/22 [History Last Taken Unknown] Allergy/AdvReac Type Severity Reaction Status Date / Time Penicillins Allergy Intermediate Rash Verified 01/25/22 15:56 Family History Mother Cancer breast Father Cancer leukemia Surgical History History of colonoscopy (01/19/14) History of esophagogastroduodenoscopy (EGD) (04/19/14) History of sinus surgery (~1989) History of varicose veins Social History Smoking Status: Never smoker alcohol intake: never substance use type: does not use caffeine: Yes Type: coffee Number of servings: 3 ROS ROS ED Constitutional Constitutional ED: Reports sweats; Denies chills or fever(s) Eyes Eyes: Denies blurry vision or change in vision ENT ENT ED: Denies rhinorrhea or sore throat Cardiovascular Cardiovascular: Denies chest pain or palpitations Respiratory/Chest Respiratory/Chest: Denies cough or dyspnea Gastrointestinal Gastrointestinal: Reports nausea; Denies vomiting Genitourinary Genitourinary ED: Denies dysuria or hematuria Musculoskeletal Musculoskeletal: Denies back pain or neck pain Integumentary Denies abscess or rash Neurologic Neurologic: Reports weakness; Denies headache(s) Allergic/Immunologic Allergic/Immunologic ED: Denies mouth swelling or urticaria EXAM Physical Exam Const Vital Signs: 01/25/22 15:56 01/25/22 16:42 01/25/22 16:49 Temperature 98.3 F Temperature Source Oral Pulse Rate 87 Pulse Rate [Lying] 79 Pulse Rate [Sitting (for 1 minute prior to obtaining)] 74 Pulse Rate [Standing (for 1 minute prior to obtaining)] 83 Respiratory Rate 20 H Respiratory Effort Normal Non-Labored Respiratory Pattern Normal Blood Pressure 152/77 H Blood Pressure [Lying] 131/71 H Blood Pressure [Sitting (for 1 minute prior to obtaining)] 136/79 H Blood Pressure [Standing (for 1 minute prior to obtaining)] 123/75 H Blood Pressure Mean 102 Blood Pressure Mean [Lying] 91 Blood Pressure Mean [Sitting (for 1 minute prior to obtaining)] 98 Blood Pressure Mean [Standing (for 1 minute prior to obtaining)] 91 Pulse Ox 99 Oxygen Delivery Method Room Air 01/25/22 17:55 01/25/22 19:21 Temperature Temperature Source Pulse Rate 84 64 Pulse Rate [Lying] Pulse Rate [Sitting (for 1 minute prior to obtaining)] Pulse Rate [Standing (for 1 minute prior to obtaining)] Respiratory Rate 15 18 Respiratory Effort Respiratory Pattern Blood Pressure 147/82 H 138/91 H Blood Pressure [Lying] Blood Pressure [Sitting (for 1 minute prior to obtaining)] Blood Pressure [Standing (for 1 minute prior to obtaining)] Blood Pressure Mean 103 106 Blood Pressure Mean [Lying] Blood Pressure Mean [Sitting (for 1 minute prior to obtaining)] Blood Pressure Mean [Standing (for 1 minute prior to obtaining)] Pulse Ox 99 100 Oxygen Delivery Method Room Air Room Air Positive well nourished and well developed General Appearance ED: well developed and NAD HEENT Reports moist mucous membranes Neck supple and no JVD Resp normal respiratory effort and clear to auscultation bilaterally Cardio regular rate, regular rhythm and no murmurs GI normal to inspection, nondistended, normoactive bowel sounds and non-tender Palpation: soft Extremity normal to inspection General Extremety ED: Negative for edema or tenderness General Extremity: Negative for edema Neuro oriented x3, CN's II-XII intact bilaterally and no sensory deficits noted Sensorium / Orientation: alert Motor Exam: strength 5/5 throughout Psych mental status grossly normal Skin no rashes or lesions noted MDM MDM MDM Narrative Medical decision making narrative: Patient was given IV fluids here. EKG was obtained. On my interpretation, it shows a normal sinus rhythm with a rate of 74. There is a first-degree AV block with a ND interval of 214. There is right bundle branch block pattern noted. QRS interval was 134 ms. QTc was normal at 448 ms. There is left axis deviation at -54. CBC shows a mild anemia with a hemoglobin of 12.2 and hematocrit 35.8. PT was INR and PTT were within normal limits. D-dimer was normal. Comprehensive metabolic profile showed a slightly elevated BUN of 32 and creatinine of 1.72. Lactate was normal at 1.9. Portable 1 view chest x-ray was obtained. On my interpretation, lung shields are clear. There is normal cardiac silhouette. Bony thorax is normal. There is no acute process noted. Radiologist also interpreted the x-ray and agrees. Old records were reviewed. Patient had a similar episode approximately 1 year ago where his creatinine was elevated. Patient was given IV fluids and his creatinine improved to normal range after this. Patient had similar symptoms at that time. Because of this, patient was given a second liter of normal saline. I do not feel the patient needs to be admitted to the hospital. Patient was instructed to follow-up with his primary care physician in 3 to 5 days. Patient was instructed return if worse in any way. Patient understood and was agreeable with the plan. All questions were answered. Lab Data Attestation: I reviewed the patient's lab results. Labs: Laboratory Results - last 24 hr 01/25/22 01/25/22 01/25/22 16:00 16:00 16:00 WBC 8.2 RBC 3.79 L Hgb 12.2 L Hct 35.8 L MCV 94.5 H MCH 32.2 H MCHC 34.1 RDW Std Deviation 43.8 RDW Coeff of Laya 12.5 Plt Count 291 MPV 8.8 Immature Gran % (Auto) 0.600 Neut % (Auto) 77.5 H Lymph % (Auto) 13.5 L Wells % (Auto) 5.5 Eos % (Auto) 2.3 Baso % (Auto) 0.6 Absolute Neuts (auto) 6.3 Absolute Lymphs (auto) 1.10 Nucleated RBC % 0 PT 14.3 INR 1.1 APTT 28.8 D-Dimer Quant (PE/DVT) 0.36 Sodium 132 L Potassium 4.3 Chloride 99 Carbon Dioxide 26.0 Anion Gap 7 BUN 32 H Creatinine 1.72 H Estim Creat Clear Calc 41.95 Est GFR (MDRD) Af Amer 51 L Est GFR (MDRD) Non-Af 42 L BUN/Creatinine Ratio 18.6 Glucose 165 H Lactic Acid Calcium 9.1 Total Bilirubin 0.30 AST 15 ALT 20 Alkaline Phosphatase 47 Troponin I High Sens 6 Total Protein 7.4 Albumin 4.0 Globulin 3.4 Albumin/Globulin Ratio 1.2 01/25/22 16:28 WBC RBC Hgb Hct MCV MCH MCHC RDW Std Deviation RDW Coeff of Laya Plt Count MPV Immature Gran % (Auto) Neut % (Auto) Lymph % (Auto) Wells % (Auto) Eos % (Auto) Baso % (Auto) Absolute Neuts (auto) Absolute Lymphs (auto) Nucleated RBC % PT INR APTT D-Dimer Quant (PE/DVT) Sodium Potassium Chloride Carbon Dioxide Anion Gap BUN Creatinine Estim Creat Clear Calc Est GFR (MDRD) Af Amer Est GFR (MDRD) Non-Af BUN/Creatinine Ratio Glucose Lactic Acid 1.9 Calcium Total Bilirubin AST ALT Alkaline Phosphatase Troponin I High Sens Total Protein Albumin Globulin Albumin/Globulin Ratio Radiography Chest X-Ray - ED: 1 View, Read by ED Physician, Read by Radiologist, Normal and No Acute Disease Diagnostic Testing: Clinical Impression(s) from Imaging Studies Chest X-Ray 01/25/22 16:50 IMPRESSION: Normal x-ray examination of the chest. Electronically Signed: Rufus Gardner MD at 17:55 EDT Reading Location ID and State: [address] [place] [address] , Service support , EKG Initial EKG: Attestation: I personally reviewed and interpreted this EKG as follows: Interpretation: Sinus Rhythm (With first-degree AV block with a rate of 74), No Acute Injury Pattern and RBBB Prior EKG tracings: available for review Prior: Unchanged (02/08/2021) Discharge Plan Triage Chief Complaint: General Illness ED Provider: Lenin Koo Dx/Rx/DC Orders Clinical Impression: Dehydration, Right bundle branch block, Type 2 diabetes mellitus Prescriptions: No Action metformin 1,000 mg tablet 1,000 mg PO DAILY Label Comments: 1,000 mg PO Take 1 tab in the AM and 1/2 tab in the PM; Rx Instructions: 1,000 mg PO Take 1 tab in the AM and 1/2 tab in the PM; diazepam 5 mg tablet 5 mg PO PRN PRN (Reason: claustrophobia) Rx Instructions: 5 mg PO 1-2 tabs by mouth daily; loratadine [Claritin] 10 mg tablet 10 mg PO DAILY lisinopril 2.5 mg tablet 2.5 mg PO DAILY fluticasone propionate 50 mcg/actuation spray,suspension 1 spray intranasal QHS metformin 500 MG tablet 500 mg PO QHS multivitamin Tablet 1 tab PO DAILY tadalafil 5 mg tablet 1 tab PO DAILY PRN PRN (Reason: Erectile Dysfunction) Label Comments: TAKE 1 TABLET BY MOUTH ONCE DAILY fluoxetine 40 mg capsule 1 cap PO DAILY Label Comments: TAKE 1 CAPSULE BY MOUTH ONCE DAILY magnesium 500 mg Tablet 500 mg PO DAILY Primary Care Provider: Georges Shafer Referrals: Georges Shafer MD [Primary Care Provider] - 3-5 Days Disposition Disposition: Home, Self Care
--- NOTE | 2022-01-25 16:29 | EKG12_ITS ---
Test Reason : DIZZINESS Blood Pressure : / mmHG Vent. Rate : 074 BPM Atrial Rate : 074 BPM P-R Int : 214 ms QRS Dur : 134 ms QT Int : 404 ms P-R-T Axes : 060 -54 053 degrees QTc Int : 448 ms Sinus rhythm with sinus arrhythmia with 1st degree A-V block Left axis deviation Right bundle branch block Abnormal ECG Confirmed by QAMAR PEÑA, CHRIS ([id number]), technical editor BELLA ALONSO ([id number]) on 01/27/2022 1:08:23 PM Referred By: EMRLIN Confirmed By:CHRIS FOOTE MD
[2022-01-25 16:49] VITALS: BP 123/75; BP 131/71; BP 136/79; PULSE 74; PULSE 79; PULSE 83
--- NOTE | 2022-01-25 16:50 | RAD_ITS ---
STUDY: X-RAY CHEST REASON FOR EXAM: Male, 72 years old. Hypertension TECHNIQUE: Single frontal view of the chest. COMPARISON: 02/08/2021 FINDINGS: The lungs are clear and expanded. There is no demonstrated pleural abnormality. Normal size heart. Normal mediastinum and jose ramon. Normal visualized pulmonary arteries. Normal visualized aortic arch and descending thoracic aorta. Normal visualized thoracic spine. Normal visualized ribs, clavicles, and shoulders. There is no demonstrated abnormality of the visualized soft tissue structures of the upper abdomen. RAD/Chest 1 View (Portable) IMPRESSION: Normal x-ray examination of the chest. Electronically Signed: Rufus Gardner MD at 17:55 EDT ,
[2022-01-25 17:14] LABS: ALB/GLOB Ratio 1.2 RATIO (0.9-2.4); AST(SGOT) 15 U/L (15-37); Alanine Aminotransfer ALT/SGPT 20 U/L (16-61); Alkaline Phosphatase 47 U/L (45-117); Anion Gap 7 (5-15); BUN 32 mg/dL (7-18); BUN/Creat Ratio 18.6 RATIO (10-20); Calcium,Total 9.1 mg/dL (8.5-10.1); Chloride 99 mmol/L (98-107); Creatinine, Serum 1.72 mg/dL (0.70-1.30); EST Glomerular Filtration Rate 42 mL/min (>60); Est Glom Filt Rate - Afr Amer 51 mL/min (>60); Estimated Creatinine Clearance 41.95 ml/min; Globulin 3.4 g/dL (2.2-4.2); Glucose 165 mg/dL (74-106); Potassium 4.3 mmol/L (3.5-5.1); Protein, Total 7.4 g/dL (6.4-8.2); Sodium Level 132 mmol/L (136-145); Troponin-I HS 6 pg/mL (3.0-78.0)
[2022-01-25 17:16] LABS: Absolute Neutrophil Count 6.3 X10^3/uL (2.0-7.7); Basophil# 0.05 X10^3/uL; Basophil% 0.6 % (0-1); Eosinophil# 0.19 X10^3/uL; Eosinophils% 2.3 % (0-5); Hematocrit 35.8 % (40-54); Hemoglobin 12.2 g/dL (13.0-16.5); Lymphocyte % 13.5 % (19-41); Mean Corp Hgb Conc 34.1 g/dL (32-36); Mean Corpuscular Hgb 32.2 pg (27.0-32.0); Mean Corpuscular Volume 94.5 fL (80-94); Mean Platelet Vol. 8.8 fl (6.2-12.0); Monocyte# 0.45 X10^3/uL; Monocyte% 5.5 % (0-10); NRBC Flagged by Analyzer 0 % (0-5); Neutrophil # 6.32 X10^3/uL (2.7-7.7); Neutrophil % 77.5 % (47-70); Platelet Count 291 K/mm3 (150-450); RBC Distribution Width CV 12.5 % (11.6-14.6); RBC Distribution Width SD 43.8 fl (35.1-43.9); Red Blood Count 3.79 M/mm3 (4.6-6.2); White Blood Count 8.2 K/mm3 (4.4-11.0)
[2022-01-25 17:31] LABS: Lactic Acid 1.9 mmol/L (0.4-1.9)
[2022-01-25 17:37] LABS: Prothrombin Time (Protime)PT. 14.3 SECONDS (11.7-14.9)
[2022-01-25 17:38] LABS: International Normalized Ratio 1.1; Partial Thromboplast Time 28.8 Seconds (24.1-36.2)
[2022-01-25 17:52] LABS: D-Dimer Quantitative (DVT/PE) 0.36 FEU/ug/m (0.27-0.49)
[2022-01-25 17:55] VITALS: BP 147/82; PULSE 84; RESP 15; O2SAT 99
[2022-01-25] MEDS: 0.9% Normal Saline 1,000 ML 1000 ML IV ×2 (18:00→18:55)
[2022-01-25 19:21] VITALS: BP 138/91; PULSE 64; RESP 18; O2SAT 100
[2022-01-25 19:57] VITALS: BP 140/77; PULSE 83; RESP 15; O2SAT 99
== END 2022-01-25 19:57 | disposition home or self-care (01) ==
PROVIDERS: Emergency Provider Emergency Medicine; PCP Family Medicine; Visit Provider Emergency Medicine
DX: E86.0 Dehydration (principal); E11.9 Type 2 diabetes mellitus without complications; I45.10 Unspecified right bundle-branch block; I44.0 Atrioventricular block, first degree; I10 Essential (primary) hypertension; R55 Syncope and collapse; Z79.899 Other long term (current) drug therapy; Z79.84 Long term (current) use of oral hypoglycemic drugs
CPT/HCPCS: 71045; 80053; 83605; 84484; 85025; 85379; 85610; 85730; 87428; 93005; 96360; 96361; 99285; J7030; A4216; J2405

== ENCOUNTER → 2022-02-10 | Outpatient (CLI) | payer MEDICARE, OTHER, SELFPAY ==
[2022-02-10 12:37] LABS: Absolute Lymphocyte Count 1.03 X10^3/uL (0.83-4.51); Absolute Neutrophil Count 5.8 X10^3/uL (2.0-7.7); Basophil# 0.05 X10^3/uL; Basophil% 0.7 % (0-1); Eosinophil# 0.12 X10^3/uL; Eosinophils% 1.6 % (0-5); Hematocrit 38.4 % (40-54); Hemoglobin 12.9 g/dL (13.0-16.5); Lymphocyte # 1.03 X10^3/ul (0.83-4.51); Lymphocyte % 13.7 % (19-41); Mean Corp Hgb Conc 33.6 g/dL (32-36); Mean Corpuscular Hgb 31.2 pg (27.0-32.0); Mean Corpuscular Volume 92.8 fL (80-94); Mean Platelet Vol. 8.6 fl (6.2-12.0); Monocyte# 0.54 X10^3/uL; Monocyte% 7.2 % (0-10); NRBC Flagged by Analyzer 0 % (0-5); Neutrophil # 5.77 X10^3/uL (2.7-7.7); Neutrophil % 76.4 % (47-70); Platelet Count 312 K/mm3 (150-450); RBC Distribution Width CV 12.2 % (11.6-14.6); RBC Distribution Width SD 41.8 fl (35.1-43.9); Red Blood Count 4.14 M/mm3 (4.6-6.2); White Blood Count 7.5 K/mm3 (4.4-11.0)
[2022-02-10 13:00] LABS: BNP,B-Type NATRIURETIC PEPTIDE 20.3 pg/mL (0-100)
[2022-02-10 13:01] LABS: Anion Gap 7 (5-15); BUN 24 mg/dL (7-18); BUN/Creat Ratio 18.2 RATIO (10-20); Calcium,Total 9.5 mg/dL (8.5-10.1); Chloride 96 mmol/L (98-107); Creatinine, Serum 1.32 mg/dL (0.70-1.30); EST Glomerular Filtration Rate 57 mL/min (>60); Est Glom Filt Rate - Afr Amer 69 mL/min (>60); Glucose 199 mg/dL (74-106); Potassium 4.7 mmol/L (3.5-5.1); Sodium Level 131 mmol/L (136-145)
== END | disposition home or self-care (01) ==
LOC: LAB 11:56
PROVIDERS: PCP Family Medicine; Referring Provider Nurse Practitioner Gerontology; Visit Provider Nurse Practitioner Gerontology
DX: R06.00 Dyspnea, unspecified (principal); R53.83 Other fatigue
CPT/HCPCS: 36415; 80048; 83880; 85025

== ENCOUNTER → 2022-03-06 | Outpatient (CLI) | payer MEDICARE, OTHER, SELFPAY ==
--- NOTE | 2022-03-06 06:52 | ECHOD_ITS ---
Reason For Study: DYSPNEA/SOB Procedure This was a 2D Doppler, Color Flow transthoracic echocardiogram. Exam performed in department. Left Ventricle Normal LV size. Left ventricular systolic function is normal. The estimated ejection fraction is 60 %. No regional wall motion abnormalities noted. Right Ventricle Normal RV size. Normal systolic function. Atria Normal left atrium. Normal right atrium. Mitral Valve There is mild to moderate mitral annular calcification. Mild (1+) eccentric mitral valve insufficiency. Tricuspid Valve Normal tricuspid valve. Trivial tricuspid valve insufficiency. Aortic Valve Trisinus/trileaflet aortic valve. Mild focal aortic valve calcification. Mild (1+) eccentric aortic valve insufficiency. Pulmonic Valve Normal pulmonic valve. Great Vessels Normal aortic root. The pulmonary artery is normal size. Normal inferior vena cava. Pericardium/Pleural No pericardial effusion. MMode/2D Measurements & Calculations LVIDd: 4.8 cm IVSd: 0.81 cm Ao root diam: 3.5 cm LVIDs: 3.1 cm LVPWd: 0.94 cm RVDd: 3.9 cm FS: 35.4 % LAV(MOD-bp): 58.3 ml LVAd ap4: 32.7 cm2 SV(MOD-sp4): 68.8 ml LAV(MOD-bp) Indexed: 27.9 ml/m2 LVLd ap4: 8.5 cm LAV(MOD-sp2): 56.9 ml EDV(MOD-sp4): 102.4 ml LAV(MOD-sp4): 57.9 ml EDV(sp4-el): 106.6 ml LVAs ap4: 17.0 cm2 LVLs ap4: 7.1 cm ESV(MOD-sp4): 33.6 ml ESV(sp4-el): 34.6 ml EF(MOD-sp4): 67.2 % EF(sp4-el): 67.5 % SV(sp4-el): 71.9 ml LA A4 area: 20.5 cm2 LA dimension(2D): 3.5 cm RA A4 area: 16.4 cm2 Time Measurements MV dec time: 0.24 sec Doppler Measurements & Calculations MV E max janes: 63.6 cm/sec Lat Peak E' Janes: 13.5 cm/sec Med Peak E' Janes: 8.3 cm/sec MV A max janes: 87.2 cm/sec E/E' lat: 4.7 E/E' med: 7.6 MV E/A: 0.73 Ao V2 max: 157.3 cm/sec AI max janes: 495.6 cm/sec LV V1 max: 109.0 cm/sec Ao max P.9 mmHg AI max P.2 mmHg LV V1 max P.8 mmHg AI dec slope: 262.4 cm/sec2 AI P1/2t: 553.1 msec PA V2 max: 136.3 cm/sec TR max janes: 242.2 cm/sec TR max P.5 mmHg ECHO/Echo Complete Interpretation Summary Normal LV size. Left ventricular systolic function is normal. Mild (1+) eccentric mitral valve insufficiency. Mild (1+) eccentric aortic valve insufficiency. The estimated ejection fraction is 60 %. Compared to prior study, there is no significant change. Ordering Physician: Asia Qureshi Referring Physician: VINNY ANGEL Performed By: Sarah Youssef RDCS
--- NOTE | 2022-03-06 18:05 | STRESSREP ---
Stress Test Report Exercise myocardial perfusion stress test. 72-year-old man with a history of dyspnea on exertion. Resting EKG demonstrates normal sinus rhythm with a right bundle branch block and a rate of 61 bpm. Resting blood pressure is 130/78 mmHg. The patient exercised according to the regular Eagle protocol for a total duration of 7 minutes and 30 seconds completing 1 minute and 30 seconds into stage III of the Eagle protocol the maximum heart rate attained was 134 bpm which was 89% of max impacted heart rate the maximum workload was 10.1 metabolic equivalents. At rest there were no ST or T wave changes noted to suggest ischemia and at peak exercise upsloping ST changes were noted with did not meet the criteria for ischemia. The peak blood pressure was 162/78 mmHg. No clinical angina was noted the test was terminated due to dyspnea. Myocardial perfusion protocol. 11.8 mCi of technetium 99m sestamibi was injected at rest. The patient exercised according to regular Eagle protocol for total duration of 7 minutes and 30 seconds and at peak exercise 33.9 mCi of technetium 99m sestamibi was injected stress images were obtained stress and rest images were reconstructed and compared in the short axis vertical long and horizontal long axis. Gated images were also obtained. Perfusion SPECT analysis: Review of the stress images demonstrate normal uptake of tracer noted in the anterior wall septum and lateral wall. The mid to distal inferior wall demonstrates a perfusion defect which on the resting images demonstrate a similar pattern. The above is suggestive of an inferior myocardial infarct with no evidence of ischemia present. Gated SPECT analysis: The gated ejection fraction is 69%. Conclusion: Exercise myocardial perfusion stress test with inferior infarct at a moderate to high workload. Preserved ejection fraction. Compared to the previous stress test from 2019 this represents an interval change.
== END | disposition home or self-care (01) ==
LOC: CVS 06:51
PROVIDERS: PCP Family Medicine; Referring Provider Nurse Practitioner Gerontology; Visit Provider Nurse Practitioner Gerontology
DX: R06.00 Dyspnea, unspecified (principal); R53.83 Other fatigue; I45.10 Unspecified right bundle-branch block
CPT/HCPCS: 78452; 93017; 93306; A9500; A4216

== ENCOUNTER → 2022-03-11 | Outpatient (CLI) | payer MEDICARE, OTHER, SELFPAY ==
[2022-03-11 15:06] LABS: Absolute Lymphocyte Count 1.32 X10^3/uL (0.83-4.51); Absolute Neutrophil Count 5.5 X10^3/uL (2.0-7.7); Basophil# 0.04 X10^3/uL; Basophil% 0.5 % (0-1); Eosinophil# 0.27 X10^3/uL; Eosinophils% 3.4 % (0-5); Hematocrit 35.4 % (40-54); Hemoglobin 11.9 g/dL (13.0-16.5); Lymphocyte # 1.32 X10^3/ul (0.83-4.51); Lymphocyte % 16.8 % (19-41); Mean Corp Hgb Conc 33.6 g/dL (32-36); Mean Corpuscular Hgb 31.7 pg (27.0-32.0); Mean Corpuscular Volume 94.4 fL (80-94); Mean Platelet Vol. 8.6 fl (6.2-12.0); Monocyte# 0.67 X10^3/uL; Monocyte% 8.5 % (0-10); NRBC Flagged by Analyzer 0 % (0-5); Neutrophil # 5.54 X10^3/uL (2.7-7.7); Neutrophil % 70.4 % (47-70); Platelet Count 321 K/mm3 (150-450); RBC Distribution Width SD 41.7 fl (35.1-43.9); Red Blood Count 3.75 M/mm3 (4.6-6.2); White Blood Count 7.9 K/mm3 (4.4-11.0)
[2022-03-11 15:24] LABS: Anion Gap 7 (5-15); BUN 28 mg/dL (7-18); BUN/Creat Ratio 23.1 RATIO (10-20); Calcium,Total 8.9 mg/dL (8.5-10.1); Chloride 93 mmol/L (98-107); Creatinine, Serum 1.21 mg/dL (0.70-1.30); EST Glomerular Filtration Rate 63 mL/min (>60); Est Glom Filt Rate - Afr Amer 76 mL/min (>60); Glucose 125 mg/dL (74-106); Potassium 4.8 mmol/L (3.5-5.1); Sodium Level 130 mmol/L (136-145)
== END | disposition home or self-care (01) ==
LOC: LAB 13:47
PROVIDERS: PCP Family Medicine; Visit Provider Nurse Practitioner Gerontology
DX: R94.39 Abnormal result of other cardiovascular function study (principal); R53.83 Other fatigue; R06.09 Other forms of dyspnea
CPT/HCPCS: 36415; 80048; 85025

== ENCOUNTER 2022-03-16 09:52 | Day surgery (SDC) | payer MEDICARE, OTHER, SELFPAY ==
[2022-03-13 07:59] VITALS: BMI 27.3
--- NOTE | 2022-03-13 13:03 | HP.PCM_ITS ---
History and Physical Date of Admission: 03/16/22 This is a 72-year-old gentleman who presents here today left heart catheterization. He has a history of right bundle branch block, hypertension, hyperlipidemia and diabetes. He was seen in our office in 2018 for evaluation of his right bundle branch block. He underwent a nuclear stress test which was negative for ischemia at a high workload. His echocardiogram from 02/08/2021 demonstrated an ejection fraction of 65%. He is accompanied by his . He states that he has been SOB with exertion-this is newer. He states he has to sit down every 5-10 minutes to rest and catch his breath. He also states that he has noticed he is completely exhausted after using his chainsaw for about 45 minutes, again this is newer. He denies any palpitations, chest pain, pressure, heaviness. He denies Orthopnea, and PND. He does not have bleeding issues; no blood in urine, stool or nosebleeds. He denies myalgias, or claudication. He does not have edema, or sudden weight gain. He has had an occasional dizziness/lightheadedness with exertion. He states he has had near syncope due to dehydration. He denies any syncopal episodes or headaches. He states his blood pressures at home average 120-124/80's, with heart rates averaging 70's. He completed echocardiogram on 03/06/2022 that showed ejection fraction of 60%. He underwent stress test on 03/06/2022 that showed inferior infarct at a moderate to high workload with interval change compared to previous in 2019 and no evidence of ischemia. On account of such change, it is recommended to proceed with heart catheterization. 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 Is patient in pain?: No Allergies Penicillins Allergy (Intermediate, Verified 02/10/22 11:26) Rash Medications See EMR [facility] Medical History Allergic rhinitis due to other allergen Erectile dysfunction Essential hypertension History of basal cell carcinoma Pure hypercholesterolemia Right bundle branch block Spondylolisthesis Type 2 diabetes mellitus Surgical History History of colonoscopy (01/19/14) History of esophagogastroduodenoscopy (EGD) (04/19/14) History of sinus surgery (~1989) History of varicose veins Family History Mother Cancer breast Father Cancer leukemia Social History Smoking Status: Never smoker alcohol intake: never substance use type: does not use caffeine: Yes Type: coffee Number of servings: 3 ROS Const Const: Positive for fatigue (newer); Negative for weakness, fever(s), headache(s), chills, frequent falls, weight gain or weight loss Eyes Eyes: Negative for blind spots, loss of peripheral vision, transient loss of vision, blurry vision, change in vision, double vision, floaters or tunnel vision ENT ENT: Positive for dizziness (occasional with exertion); Negative for headache(s), Nosebleed/epistaxis, balance problems or neck pain Cardio Chest Pain: No Palpitations: No Edema: None Muscle aches with walking: None Resp Respiratory: Positive for SOB with activity (this is newer); Negative for SOB at rest or SOB orthopnea\SOB lying down GI GI: Negative nausea, vomiting, heartburn, bloating, vomiting blood/hematemesis, bright, red blood in stools or black,tarry stools Musc Musc: Negative for muscle aches/ myalgia, muscle weakness, joint pain or balance problems Neuro Neuro: Positive for dizziness (occasional with exertion), lightheadedness, near syncope and other (near syncope due to dehydration); Negative for syncope, orthostatic symptoms, frequent falls, headache(s), weakness, blurry vision or double vision Dwight Hematologic/Lymphatic: Negative for easy bleeding or easy bruising Endo Endo: Positive for fatigue (newer) Cardiology Exam Const Appearance: healthy appearing and anxious Orientation: alert, awake and oriented x3 Head Head: normal to inspection Ears: hearing grossly normal bilaterally Nose: external nose normal Face and Sinus: face symmetric Mouth: oral mucosae normal, lip normal and moist mucous membranes Eyes General: appearance normal, both eyes and all related structures Eyelids: eyelids normal Conjunctivae: conjunctivae normal Pupils: PERRL EOM: EOM intact bilaterally Neck Neck: normal visual inspection and trachea midline; Negative no JVD Carotids: Negative bruit Chest Chest inspection: normal inspection of the chest Auscultation: Bilateral: Clear to Auscultation Cardio Palpation: normal PMI Rate: regular rate Rhythm: regular rhythm Heart sounds: S1 normal, S2 normal and murmur; Negative rub or gallop Murmur: Grade 1/6, soft, mid systolic and LLSB GI GI: soft, no hepatosplenomegaly and bowel sounds present Neuro General: patient alert, patient awake, patient oriented x3 and CN's II-XI intact bilaterally Extremities Pulses: Normal: Right Posterior Tibial Pulse, Left Posterior Tibial Pulse, Right Radial Pulse and Left Radial Pulse Lower Extremity Edema: None: Bilateral Psych Psychological: normal affect Supplemental Info Supplemental Information Echocardiogram from 03/06/2022: Interpretation Summary Normal LV size. Left ventricular systolic function is normal. Mild (1+) eccentric mitral valve insufficiency. Mild (1+) eccentric aortic valve insufficiency. The estimated ejection fraction is 60 %. Compared to prior study, there is no significant change. Echocardiogram 02/08/2021: Interpretation Summary The study was technically difficult. Left ventricular systolic function is normal. The estimated ejection fraction is 65 %. The left atrium is mildly enlarged. There is moderate mitral annular calcification. Extension the mitral annular calcification on the base of the posterior mitral valve leaflet. Mild (1+) mitral valve insufficiency. Trivial tricuspid valve insufficiency. Mild focal aortic valve calcification. Trivial aortic valve insufficiency. Trivial pulmonic valve insufficiency. Borderline enlarged aortic root. Unable to estimate RV systolic pressure/pulmonary artery pressure due to technically difficult study. Diastolic function is indeterminate. Bubble contrast study negative for right to left interatrial shunt. Stress test from 03/06/2022: Conclusion: Exercise myocardial perfusion stress test with inferior infarct at a moderate to high workload. Preserved ejection fraction. Compared to the previous stress test from 2019 this represents an interval change. Stress Test 2019: Conclusion: Normal exercise myocardial perfusion stress test at a high workload. No clinical angina noted. Right bundle branch block pattern noted. Excellent functional capacity. Labs: LDL Cholesterol 99 mg/dL (0-130) HDL Cholesterol 46 mg/dL (40-) Triglycerides 133 mg/dL (-199) VLDL Cholesterol 27 mg/dL (5-40) Diagnostics: Electrocardiogram Echocardiogram Stress Test NM Stress Test Chest X-Ray Pulmonary: No Data to Display Assessment and Plan Assessment and Plan (1) MCCONNELL (dyspnea on exertion): Status: Acute Plan: Patient has complaints of dyspnea with minimal exertion. He states this is progressively getting worse. His most recent chest xray from 01/25/2022 was normal. Given results of heart catheterization, he will proceed with heart catheterization to assess symptoms further. Is on results, further r ecommendation be made. (2) Fatigue: Status: Acute Plan: Patient has complaints of fatigue. This is newer for patient. His laboratory testing after outpatient office visit showed hemoglobin 12.9, sodium level 131, creatinine 1.32, and BNP 20.3. He proceeded with heart catheterization to assess CAD component. (3) Abnormal electrocardiogram: Status: Acute Plan: Patient's EKG from outpatient office visit demonstrated sinus rhythm, right bundle branch block, old inferior infarct, heart rate 70 bpm. We will continue to monitor. (4) Right bundle branch block: Status: Chronic Plan: Patient has a history of right bundle branch block. His EKG from outpatient office visit demonstrated sinus rhythm, right bundle branch block, old inferior infarct, heart rate 70. We will continue to monitor this. (5) Essential hypertension: Status: Chronic Plan: Patient has a history of hypertension. His blood pressure was elevated at office visit. He states his blood pressures at home average 120-124/80s. At this time he will continue lisinopril 2.5 mg daily, along with monitoring his blood pressures at home. He will notify our office of any persistently high or low blood pressure readings. (6) Pure hypercholesterolemia: Status: Chronic Plan: Patient has a history of hypercholesterolemia. His PCP monitors this. He will continue with aggressive risk factor and lifestyle modifications.
--- NOTE | 2022-03-16 13:58 | CL.D_ITS ---
Patient Name: ALEXANDRIA FREED Study Date: 03/16/2022 Performing: Trenton Gerard MD Ht: 71 inches 180.34 cm : 1950 Wt: 195.99 lbs 88.9 kg Age: 72 Gender: male BSA: 2.09 PROCEDURE(S) PERFORMED [id number])LHC/COR/LV CLINICAL PROFILE AND INDICATIONS Indications: Other Heart Failure: None Stress/Imaging Stress Test w/SPECT MPI: Yes Result: NegativeStress Test with SPECT MPI: Negative CAD Presentations: Symptom unlikely to be ischemic. CONCLUSIONS Non obstructive coronary arteries Calcification noted Normal LV size, wall motion,and systolic function RECOMMENDATIONS Medical therapy DESCRIPTION OF PROCEDURE The patient arrived to the procedure lab. The risks and benefits of the procedure as well as a full description of our services here and current unavailability of surgical backup were fully explained to the patient and/or their significant other prior to the catheterization. The Timeout was completed, verifying the correct patient and procedure. The patient's procedural site was prepped and draped in the usual fashion. Local anesthetic was given subcutaneously to right radial region with Lidocaine 2%. Using a modified Seldinger technique, arterial access was obtained via the right radial artery, a 6Fr sheath was inserted. Left Coronary Artery selective angiography was performed in multiple views using a 5 Fr. 4.0 [place] catheter. Right Coronary Artery selective angiography was then performed in multiple views using a 5 Fr. JR 5 catheter. Left Ventriculography was performed in ASHBY projection using a 5 Fr. Pigtail catheter.The arterial sheath was pulled and a TR Band was applied for hemostasis CORONARY ANGIOGRAPHY DOMINANCE: Right Dominant LEFT HEART ASSESSMENT Left Ventricular Ejection Fraction: by LV Gram 60 % Normal LV wall motion Normal Left Ventricular systolic function LEFT MAIN: Mild calcification, No significant disease noted LEFT ANTERIOR DESCENDING ARTERY: MID LAD: Moderate calcification, Moderate luminal irregularities up to 50% CIRCUMFLEX ARTERY: Mild luminal irregularities RAMUS: Mild luminal irregularities RIGHT CORONARY ARTERY: Mild luminal irregularities less than 30% COMPLICATIONS No Complications PROCEDURE MEDICATIONS Versed 1 mg IV Fentanyl 50 mcg IV Versed 1 mg IV Oxygen: 2 L/min via nasal cannula Heparin given IA 03/16/2022 13:36:58 Verapamil 2.5mg, Ntg 100mcgs, 2000 units of Heparin given IA 03/16/2022 13:36:58 SUMMARY OF HEMODYNAMIC DATA Time AIR REST AO 114/77 (96) SA 13:39:15 LV 107/7, 14 13:48:04 LV 91/7, 9 13:48:12 LV 107/9, 16 13:48:57 ECG 13:57:23 Signed By Trenton Gerard MD On 03/16/2022 13:57:31 Trenton Gerard MD
== END 2022-03-16 15:35 | disposition home or self-care (01) ==
LOC: CLSP 09:55
PROVIDERS: PCP Family Medicine; Referring Provider Internal Medicine Cardiovascular Disease; Visit Provider Internal Medicine Cardiovascular Disease
DX: R94.39 Abnormal result of other cardiovascular function study (principal); E11.9 Type 2 diabetes mellitus without complications; I70.90 Unspecified atherosclerosis; E78.00 Pure hypercholesterolemia, unspecified; I10 Essential (primary) hypertension; I45.10 Unspecified right bundle-branch block; R53.83 Other fatigue; R06.09 Other forms of dyspnea
CPT/HCPCS: 93458; 99152; 99153; J7040; Q9967; C1769; C1894

== ENCOUNTER 2022-03-31 08:37 | Emergency (ER) | payer MEDICARE, OTHER, SELFPAY ==
[2022-03-31 08:38] VITALS: BP 116/93; PULSE 77; RESP 16; TEMP 36.4; O2SAT 99; BMI 26.8
--- NOTE | 2022-03-31 09:29 | CT_ITS ---
STUDY: CT BRAIN WITHOUT CONTRAST REASON FOR EXAM: Male, 72 years old. Altered mental status. RADIATION DOSAGE (If Supplied By Facility): CTDIvol = ( 44.99 ) mGy, DLP = ( 863.60 ) mGycm TECHNIQUE: Transaxial CT imaging of the brain was performed without administration of intravenous contrast material. Individualized dose optimization techniques were used for this CT. COMPARISON: Comparison is made with prior study dated 02/08/2021. FINDINGS: Normal soft tissue structures. Normal calvarium. Normal size ventricles and extra-axial spaces for the patient''s age. Normal white matter tracts of the cerebral hemispheres. Normal basal ganglia and thalami. Normal brainstem. Normal cerebellum. There is no intracranial hemorrhage. There are no findings of an acute ischemic infarction. Atherosclerotic calcification of the cavernous portions of the internal carotid arteries bilaterally. Normal visualized paranasal sinuses. CT/Brain/Head without Contrast IMPRESSION: Normal unenhanced CT scan of the brain. Electronically Signed: Ramon Christensen MD at 10:53 EDT ,
--- NOTE | 2022-03-31 09:31 | EDS_ITS ---
HPI History of Present Illness Chief Complaint: General Illness Informant: patient and spouse/S.O. Narrative Narrative: 72-year-old male presented to the emergency department with multiple complaints. He states he has lost 10 pounds unintentionally over the past year. Most recently he was diagnosed with COVID about 9 days ago and has worsened his nausea. He states he has not really ate or drank much in the last couple days. He was was prescribed Zofran which did help. He notes over the past couple days he has been confused. He denies any pain. He notes a cough. He states his doctors have not been able to find anything to explain his nausea. No recent medication changes. No headache. No vision speech arm or leg symptoms. [facility] Medical History (Updated 03/31/22 @ 13:[address] Andrew Dawn, ) Abnormal stress test Acquired nasal deformity Allergic rhinitis due to other allergen Chronic kidney disease (CKD) Closed fracture nasal bone Erectile dysfunction Essential hypertension History of basal cell carcinoma Nasal congestion Nasal septal deviation Nasal turbinate hypertrophy Pure hypercholesterolemia Right bundle branch block Spondylolisthesis Type 2 diabetes mellitus Home Medications metformin 1,000 mg tablet 1,000 mg PO DAILY 06/02/18 [History Last Taken Unknown] metformin 500 mg tablet 500 mg PO QHS 05/30/19 [History Last Taken Unknown] diazepam 5 mg tablet 5 mg PO PRN PRN claustrophobia 11/26/20 [History Last Taken Unknown] fluticasone propionate 50 mcg/actuation nasal spray,suspension 1 spray intranasal QHS 11/26/20 [History Last Taken Unknown] lisinopril 2.5 mg tablet 2.5 mg PO DAILY 11/26/20 [History Last Taken 03/16/22] loratadine 10 mg tablet (Claritin) 10 mg PO DAILY 11/26/20 [History Last Taken Unknown] multivitamin 1 tab PO DAILY 02/08/21 [History Last Taken Unknown] magnesium 500 mg tablet 500 mg PO DAILY supplement 01/25/22 [History Last Taken Unknown] tadalafil 5 mg tablet 1 tab PO DAILY PRN PRN Erectile Dysfunction 01/25/22 [History Last Taken Unknown] fluoxetine 40 mg capsule 80 mg PO DAILY 02/10/22 [History Last Taken Unknown] aspirin 81 mg capsule 81 mg PO DAILY 03/16/22 [History Last Taken 03/16/22] rosuvastatin 5 mg tablet 5 mg PO DAILY #30 tabs 03/17/22 [Rx Last Taken Unknown] promethazine 25 mg tablet 25 mg PO TID PRN nausea and vomiting #30 tabs 03/31/22 [Rx Last Taken Unknown] Allergy/AdvReac Type Severity Reaction Status Date / Time Penicillins Allergy Intermediate Rash Verified 03/31/22 08:37 atorvastatin AdvReac Intermediate messed Verified 03/31/22 08:37 with my head simvastatin AdvReac Intermediate messed Verified 03/31/22 08:37 with my head Family History Mother Cancer breast Father Cancer leukemia Surgical History History of colonoscopy (01/19/14) History of esophagogastroduodenoscopy (EGD) (04/19/14) History of left heart catheterization (03/16/22) History of sinus surgery (1989) History of varicose veins Social History Smoking Status: Never smoker alcohol intake: never substance use type: does not use caffeine: Yes Type: coffee Number of servings: 3 ROS ROS ED Constitutional Constitutional ED: Reports fever(s), subjective and weight loss; Denies chills Eyes Eyes: Denies blurry vision, change in vision or diplopia ENT ENT ED: Denies ear pain, rhinorrhea or sore throat Cardiovascular Cardiovascular: Denies chest pain, orthopnea, palpitations or racing heartbeat Respiratory/Chest Respiratory/Chest: Reports cough; Denies dyspnea or orthopnea Gastrointestinal Gastrointestinal: Reports nausea; Denies abdominal pain, diarrhea or vomiting Genitourinary Genitourinary ED: Denies dysuria, hematuria or urinary frequency Musculoskeletal Musculoskeletal: Denies arthralgias or myalgias Integumentary Denies abscess or rash Neurologic Neurologic: Denies headache(s), paresthesias or weakness Psychiatric Psychiatric: Denies anxiety, depression, suicidal ideation or suicidal thoughts Endocrine Endocrinology: Denies polydipsia, polyphagia or polyuria Allergic/Immunologic Allergic/Immunologic ED: Denies mouth swelling, tongue swelling or urticaria EXAM Physical Exam Const Vital Signs: 03/31/22 08:38 03/31/22 10:33 03/31/22 10:37 Temperature 97.6 F L Temperature Source Temporal Pulse Rate 77 70 Respiratory Rate 16 15 Respiratory Effort Normal Non-Labored Respiratory Pattern Normal Blood Pressure 116/93 H 136/77 H Blood Pressure Mean 100 96 Pulse Ox 99 100 Oxygen Delivery Method Room Air Room Air 03/31/22 12:15 Temperature Temperature Source Pulse Rate 74 Respiratory Rate 12 Respiratory Effort Respiratory Pattern Blood Pressure 119/81 H Blood Pressure Mean 93 Pulse Ox 97 Oxygen Delivery Method Room Air Positive well nourished and well developed General Appearance ED: well developed HEENT Reports normocephalic, head/scalp atraumatic and moist mucous membranes Eyes PERRL and EOMs intact bilaterally Neck no lymphadenopathy, supple and no JVD Resp normal respiratory effort and clear to auscultation bilaterally Cardio regular rate, regular rhythm and no murmurs GI normal to inspection, nondistended, normoactive bowel sounds and non-tender Palpation: soft Back/Spine no CVA tenderness and normal ROM Extremity normal to inspection General Extremety ED: Negative for edema General Extremity: Negative for edema Neuro oriented x3 and CN's II-XII intact bilaterally Sensorium / Orientation: alert Motor Exam: strength 5/5 throughout Psych mental status grossly normal Mood & Affect: Negative for depressed or tearful Skin no rashes or lesions noted and no wounds MDM MDM MDM Narrative Medical decision making narrative: CT of the brain was negative. CBC shows a hemoglobin of 14.1 white count of 10.2 and platelet count of 263. CMP showed a glucose of 443 creatinine 1.36 with a BUN of 21. Urinalysis was negative with a specific gravity of 1.01. Patient received Zofran and did not have any improvement of his nausea. My interpretation of the chest x-ray is no acute process. At this point patient has chronic nausea. I do not see any acute or emergent cause for the patient's pain. We will have him follow-up with primary care or with GI. Return if worsening or concerns Lab Data Labs: Laboratory Results - last 24 hr 03/31/22 03/31/22 03/31/22 10:00 10:00 10:50 WBC 10.2 RBC 4.32 L Hgb 14.1 Hct 40.7 MCV 94.2 H MCH 32.6 H MCHC 34.6 RDW Std Deviation 41.7 RDW Coeff of Laya 11.9 Plt Count 263 MPV 8.2 Immature Gran % (Auto) 0.200 Neut % (Auto) 87.5 H Lymph % (Auto) 6.6 L Kidder % (Auto) 5.4 Eos % (Auto) 0.2 Baso % (Auto) 0.1 Absolute Neuts (auto) 8.9 H Absolute Lymphs (auto) 0.67 L Nucleated RBC % 0 Sodium 129 L Potassium 5.1 Chloride 96 L Carbon Dioxide 24.0 Anion Gap 9 BUN 21 H Creatinine 1.36 H Estim Creat Clear Calc 53.06 Est GFR (MDRD) Af Amer 66 Est GFR (MDRD) Non-Af 55 L BUN/Creatinine Ratio 15.4 Glucose 143 H Calcium 9.4 Total Bilirubin 0.60 AST 15 ALT 20 Alkaline Phosphatase 62 Total Protein 8.2 Albumin 3.9 Globulin 4.3 H Albumin/Globulin Ratio 0.9 TSH 0.30 L Urine Color Yellow Urine Clarity Clear Urine pH 6.5 Ur Specific [place] 1.010 Urine Protein 15 H Urine Glucose (UA) Normal Urine Ketones 50 H Urine Occult Blood Negative Urine Nitrite Negative Urine Bilirubin Negative Urine Urobilinogen Normal Ur Leukocyte Esterase Negative Urine RBC 0 SEEN Urine WBC 0 SEEN Ur Squamous Epith Cells 0 SEEN Urine Bacteria 0 SEEN Urine Mucus 0 SEEN Radiography Diagnostic Testing: Clinical Impression(s) from Imaging Studies Brain CT 03/31/22 09:29 IMPRESSION: Normal unenhanced CT scan of the brain. Electronically Signed: Ramon Christensen MD at 10:53 EDT Reading Location ID and State: [facility] / [place] , Service support , Chest X-Ray 03/31/22 10:30 IMPRESSION: Borderline cardiomegaly. The lungs are clear. Electronically Signed: Ramon Christensen MD at 10:54 EDT , Discharge Plan Triage Chief Complaint: General Illness ED Provider: Andrew Dawn Dx/Rx/DC Orders Clinical Impression: Nausea, Type 2 diabetes mellitus, Pure hypercholesterolemia, Essential hypertension Prescriptions: New promethazine 25 mg tablet 25 mg PO TID PRN (Reason: nausea and vomiting) Qty: 30 0RF No Action metformin 1,000 mg tablet 1,000 mg PO DAILY Label Comments: 1,000 mg PO Take 1 tab in the AM and 1/2 tab in the PM; Rx Instructions: 1,000 mg PO Take 1 tab in the AM and 1/2 tab in the PM; diazepam 5 mg tablet 5 mg PO PRN PRN (Reason: claustrophobia) Rx Instructions: 5 mg PO 1-2 tabs by mouth daily; loratadine [Claritin] 10 mg tablet 10 mg PO DAILY lisinopril 2.5 mg tablet 2.5 mg PO DAILY fluticasone propionate 50 mcg/actuation spray,suspension 1 spray intranasal QHS metformin 500 MG tablet 500 mg PO QHS multivitamin Tablet 1 tab PO DAILY tadalafil 5 mg tablet 1 tab PO DAILY PRN PRN (Reason: Erectile Dysfunction) Label Comments: TAKE 1 TABLET BY MOUTH ONCE DAILY magnesium 500 mg Tablet 500 mg PO DAILY fluoxetine 40 mg capsule 80 mg PO DAILY aspirin 81 mg Capsule 81 mg PO DAILY rosuvastatin 5 mg tablet 5 mg PO DAILY Qty: 30 11RF Primary Care Provider: Georges Shafer Referrals: Georges Shafer MD [Primary Care Provider] - As soon as possible Friend,DO Myles [Med Staff - Active Staff] - As soon as possible (for gastroenterology evaluation)
[2022-03-31 10:11] LABS: Absolute Lymphocyte Count 0.67 X10^3/uL (0.83-4.51); Absolute Neutrophil Count 8.9 X10^3/uL (2.0-7.7); Basophil# 0.01 X10^3/uL; Basophil% 0.1 % (0-1); Eosinophil# 0.02 X10^3/uL; Eosinophils% 0.2 % (0-5); Hematocrit 40.7 % (40-54); Hemoglobin 14.1 g/dL (13.0-16.5); Lymphocyte # 0.67 X10^3/ul (0.83-4.51); Lymphocyte % 6.6 % (19-41); Mean Corp Hgb Conc 34.6 g/dL (32-36); Mean Corpuscular Hgb 32.6 pg (27.0-32.0); Mean Corpuscular Volume 94.2 fL (80-94); Mean Platelet Vol. 8.2 fl (6.2-12.0); Monocyte# 0.55 X10^3/uL; Monocyte% 5.4 % (0-10); NRBC Flagged by Analyzer 0 % (0-5); Neutrophil # 8.91 X10^3/uL (2.7-7.7); Neutrophil % 87.5 % (47-70); Platelet Count 263 K/mm3 (150-450); RBC Distribution Width CV 11.9 % (11.6-14.6); RBC Distribution Width SD 41.7 fl (35.1-43.9); Red Blood Count 4.32 M/mm3 (4.6-6.2); White Blood Count 10.2 K/mm3 (4.4-11.0)
--- NOTE | 2022-03-31 10:30 | RAD_ITS ---
STUDY: X-RAY CHEST REASON FOR EXAM: Male, 72 years old. Cough TECHNIQUE: Single AP portable view of the chest. COMPARISON: Comparison is made with prior study dated 01/25/2022. FINDINGS: The lungs are clear and expanded. There is no demonstrated pleural abnormality. There is borderline cardiomegaly. Normal mediastinum and jose ramon. Normal visualized pulmonary arteries. There is atherosclerotic calcification of the aortic arch with tortuosity. There are diffuse degenerative changes of the visualized thoracic spine. Normal visualized ribs, clavicles, and shoulders. There is no demonstrated abnormality of the visualized soft tissue structures of the upper abdomen. RAD/Chest 1 View (Portable) IMPRESSION: Borderline cardiomegaly. The lungs are clear. Electronically Signed: Ramon Christensen MD at 10:54 EDT ,
[2022-03-31 10:34] LABS: ALB/GLOB Ratio 0.9 RATIO (0.9-2.4); AST(SGOT) 15 U/L (15-37); Alanine Aminotransfer ALT/SGPT 20 U/L (16-61); Albumin, Serum 3.9 g/dL (3.2-5.0); Alkaline Phosphatase 62 U/L (45-117); Anion Gap 9 (5-15); BUN 21 mg/dL (7-18); BUN/Creat Ratio 15.4 RATIO (10-20); Calcium,Total 9.4 mg/dL (8.5-10.1); Chloride 96 mmol/L (98-107); Creatinine, Serum 1.36 mg/dL (0.70-1.30); EST Glomerular Filtration Rate 55 mL/min (>60); Est Glom Filt Rate - Afr Amer 66 mL/min (>60); Estimated Creatinine Clearance 53.06 ml/min; Globulin 4.3 g/dL (2.2-4.2); Glucose 143 mg/dL (74-106); Potassium 5.1 mmol/L (3.5-5.1); Protein, Total 8.2 g/dL (6.4-8.2); Sodium Level 129 mmol/L (136-145)
[2022-03-31 10:37] VITALS: BP 136/77; PULSE 70; RESP 15; O2SAT 100
[2022-03-31] MEDS: Ondansetron 4 MG/2 ML Vial IV (10:57)
[2022-03-31 10:58] LABS: Bacteria 0 SEEN /hpf (None Seen); Mucous, Urine 0 SEEN /hpf (<or=2+); Red Blood Cells-Urine 0 SEEN /hpf (0-5); Squamous Epithelial Cells - UA 0 SEEN /hpf (0-5); White Blood Cells 0 SEEN /hpf (0-5)
[2022-03-31 10:59] LABS: Color, Urine Yellow (Yellow); Glucose, Dipstick Normal (Normal); Ketone-Dipstick 50 mg/dl (Negative); Leukocyte Esterase-Dipstick Negative /ul (Negative); Nitrite-Dipstick Negative (Negative); Occult Blood-Urine Negative /ul (Negative); Protein-Dipstick 15 mg/dl (Negative); Urine Bilirubin Dipstick Negative (Negative); Urine Clarity Clear (Clear); Urine Urobilinogen Normal (Normal); Urine pH 6.5 (5.0 - 8.0)
[2022-03-31 12:15] VITALS: BP 119/81; PULSE 74; RESP 12; O2SAT 97
--- NOTE | 2022-03-31 12:53 | NURSING ---
pt getting upset over wait time and not seeing any drPrasanth yet. aware that chart is with for reeval.
== END 2022-03-31 13:33 | disposition home or self-care (01) ==
LOC: ED 09:57
PROVIDERS: Emergency Provider Emergency Medicine; PCP Family Medicine; Visit Provider Emergency Medicine
DX: R11.0 Nausea (principal); E11.22 Type 2 diabetes mellitus with diabetic chronic kidney disease; R41.0 Disorientation, unspecified; E78.00 Pure hypercholesterolemia, unspecified; N18.9 Chronic kidney disease, unspecified; I12.9 Hypertensive chronic kidney disease with stage 1 through stage 4 chronic kidney disease, or unspecified chronic kidney disease
CPT/HCPCS: 70450; 71045; 80053; 81001; 84443; 85025; 99285; A4216; J2405

== ENCOUNTER → 2023-02-19 | Outpatient (CLI) | payer MEDICARE, OTHER, SELFPAY ==
[2023-02-19 11:56] LABS: Absolute Lymphocyte Count 0.94 X10^3/uL (0.83-4.51); Absolute Neutrophil Count 4.6 X10^3/uL (2.0-7.7); Basophil# 0.05 X10^3/uL; Basophil% 0.8 % (0-1); Eosinophil# 0.21 X10^3/uL; Eosinophils% 3.3 % (0-5); Hematocrit 34.6 % (40-54); Hemoglobin 11.7 g/dL (13.0-16.5); Lymphocyte # 0.94 X10^3/ul (0.83-4.51); Lymphocyte % 14.7 % (19-41); Mean Corp Hgb Conc 33.8 g/dL (32-36); Mean Corpuscular Volume 94.5 fL (80-94); Mean Platelet Vol. 8.4 fl (6.2-12.0); Monocyte# 0.58 X10^3/uL; NRBC Flagged by Analyzer 0 % (0-5); Neutrophil # 4.58 X10^3/uL (2.7-7.7); Neutrophil % 71.4 % (47-70); Platelet Count 291 K/mm3 (150-450); RBC Distribution Width CV 12.1 % (11.6-14.6); RBC Distribution Width SD 42.4 fl (35.1-43.9); Red Blood Count 3.66 M/mm3 (4.6-6.2); White Blood Count 6.4 K/mm3 (4.4-11.0)
[2023-02-19 12:02] LABS: Urine Sodium 69 mmol/L (Not Establ.)
[2023-02-19 12:36] LABS: Osmolality, Serum 292 mOsm/KG (280-301); Osmolality, Urine 374 mOsm/KG
[2023-02-19 12:42] LABS: ALB/GLOB Ratio 1.1 RATIO (0.9-2.4); AST(SGOT) 12 U/L (15-37); Alanine Aminotransfer ALT/SGPT 23 U/L (16-61); Albumin, Serum 3.9 g/dL (3.2-5.0); Alkaline Phosphatase 52 U/L (45-117); Anion Gap 6 (5-15); BUN 28 mg/dL (7-18); Calcium,Total 9.3 mg/dL (8.5-10.1); Chloride 100 mmol/L (98-107); Creatinine, Serum 1.27 mg/dL (0.70-1.30); EST Glomerular Filtration Rate 59 mL/min (>60); Est Glom Filt Rate - Afr Amer 72 mL/min (>60); Globulin 3.7 g/dL (2.2-4.2); Glucose 127 mg/dL (74-106); Potassium 4.9 mmol/L (3.5-5.1); Protein, Total 7.6 g/dL (6.4-8.2); Sodium Level 132 mmol/L (136-145)
[2023-02-22 13:05] LABS: Free T3 2.6 pg/mL (2.18-3.98); T4 Free Direct 0.79 ng/dL (0.76-1.46); Thyroid Stim Hormone (TSH) 0.21 uIU/mL (0.358-3.74)
== END | disposition home or self-care (01) ==
LOC: MFPLAB 11:06
PROVIDERS: PCP Family Medicine; Visit Provider Family Medicine
DX: E11.22 Type 2 diabetes mellitus with diabetic chronic kidney disease (principal); E22.2 Syndrome of inappropriate secretion of antidiuretic hormone; E03.9 Hypothyroidism, unspecified
CPT/HCPCS: 36415; 80053; 83930; 83935; 84300; 84439; 84443; 84481; 85025

== ENCOUNTER → 2023-03-23 | Outpatient (CLI) | payer MEDICARE, OTHER, SELFPAY ==
[2023-03-23 16:53] LABS: Anion Gap 6 (5-15); BUN 24 mg/dL (7-18); BUN/Creat Ratio 18.8 RATIO (10-20); Calcium,Total 9.2 mg/dL (8.5-10.1); Chloride 99 mmol/L (98-107); Creatinine, Serum 1.28 mg/dL (0.70-1.30); EST Glomerular Filtration Rate 59 mL/min (>60); Est Glom Filt Rate - Afr Amer 71 mL/min (>60); Free T3 2.4 pg/mL (2.18-3.98); Glucose 161 mg/dL (74-106); Potassium 4.5 mmol/L (3.5-5.1); Sodium Level 132 mmol/L (136-145); Thyroid Stim Hormone (TSH) 0.18 uIU/mL (0.358-3.74)
[2023-03-25 16:10] LABS: Anti-Thyroglobulin AB < 1.0 IU/mL (0.0-0.9); Thyroglobulin, Serum Qt. 9.8 ng/mL (1.4-29.2); Thyroid Peroxidase AB 15 IU/mL (0-34)
== END | disposition home or self-care (01) ==
LOC: MTLAB 11:28
PROVIDERS: PCP Family Medicine; Referring Provider Family Medicine; Visit Provider Family Medicine
DX: E05.90 Thyrotoxicosis, unspecified without thyrotoxic crisis or storm (principal)
CPT/HCPCS: 36415; 80048; 84432; 84439; 84443; 84481; 86376; 86800

== ENCOUNTER → 2023-07-06 | Outpatient (CLI) | payer MEDICARE, OTHER, SELFPAY ==
[2023-07-06 18:13] LABS: Absolute Lymphocyte Count 0.77 X10^3/uL (0.83-4.51); Absolute Neutrophil Count 5.1 X10^3/uL (2.0-7.7); Basophil# 0.03 X10^3/uL; Basophil% 0.5 % (0-1); Eosinophils% 1.5 % (0-5); Hematocrit 36.8 % (40-54); Lymphocyte # 0.77 X10^3/ul (0.83-4.51); Lymphocyte % 11.8 % (19-41); Mean Corp Hgb Conc 32.6 g/dL (32-36); Mean Corpuscular Hgb 30.8 pg (27.0-32.0); Mean Corpuscular Volume 94.4 fL (80-94); Mean Platelet Vol. 8.6 fl (6.2-12.0); Monocyte# 0.51 X10^3/uL; Monocyte% 7.8 % (0-10); NRBC Flagged by Analyzer 0 % (0-5); Neutrophil # 5.11 X10^3/uL (2.7-7.7); Neutrophil % 77.9 % (47-70); Platelet Count 316 K/mm3 (150-450); RBC Distribution Width CV 12.2 % (11.6-14.6); RBC Distribution Width SD 42.5 fl (35.1-43.9); White Blood Count 6.6 K/mm3 (4.4-11.0)
[2023-07-06 18:23] LABS: AST(SGOT) 12 U/L (15-37); Alanine Aminotransfer ALT/SGPT 22 U/L (16-61); Albumin, Serum 3.9 g/dL (3.2-5.0); Alkaline Phosphatase 54 U/L (45-117); Anion Gap 7 (5-15); BUN 24 mg/dL (7-18); BUN/Creat Ratio 19.2 RATIO (10-20); Calcium,Total 9.7 mg/dL (8.5-10.1); Chloride 96 mmol/L (98-107); Creatinine, Serum 1.25 mg/dL (0.70-1.30); EST Glomerular Filtration Rate 60 mL/min (>60); Est Glom Filt Rate - Afr Amer 73 mL/min (>60); Globulin 3.9 g/dL (2.2-4.2); Glucose 113 mg/dL (74-106); Magnesium 1.9 mg/dL (1.6-2.6); Protein, Total 7.8 g/dL (6.4-8.2); Sodium Level 128 mmol/L (136-145)
[2023-07-06 18:35] LABS: Osmolality, Serum 285 mOsm/KG (280-301); Osmolality, Urine 455 mOsm/KG
[2023-07-06 18:49] LABS: Microalbumin,Random Urine 10.7 mg/L (NO RANGE EST.); Microalbumin:Creatinine Ratio 17.5 mg/g CRE (<30 mg/g CRE)
== END | disposition home or self-care (01) ==
LOC: MFPLAB 14:17
PROVIDERS: PCP Family Medicine; Visit Provider Family Medicine
DX: E22.2 Syndrome of inappropriate secretion of antidiuretic hormone (principal); E11.22 Type 2 diabetes mellitus with diabetic chronic kidney disease; I47.10 Supraventricular tachycardia, unspecified
CPT/HCPCS: 36415; 80053; 82043; 82570; 83735; 83930; 83935; 85025

== ENCOUNTER → 2023-07-22 | Outpatient (CLI) | payer MEDICARE, OTHER, SELFPAY ==
--- OUTSIDE RECORDS SUMMARY | 2023-07-22 14:55 | XMS RPT_ITS | CCD ---
Author Name Unknown Address [address] [place] [address] Organization [facility] Care Team Providers Care Electrical Tryout Person Name Role Phone Evelina Shafer MD Primary Care Provider Hilario YANES, Kiersten Unavailable [phone] Prasanna YANES, Angelina Unavailable Evelina Shafer MD Primary Care Provider Prasanna YANES, Angelina Unavailable Evelina Shafer MD Primary Care Provider Prasanna YANES, Angelina Unavailable [phone] Panfilo YANES, Petty Unavailable Unavailable Evelina Shafer MD Primary Care Provider Panfilo YANES, Petty Unavailable Unavailable Petty Whittaker RN Unavailable Unavailable EVELINA MONROE Admitting UnavailEVELINA Beltre Attending UnavailEVELINA Beltre Primary Care Unavailabl EVELINA Clement Consulting Unavailab le PROVIDER, UNKNOWN Consulting Unavailable Petty Whittaker RN Unavailable Unavailable MICHAEL RAO Attending Unavailable EVELINA SHAFER Primary Care Unavailab NICOLASA Metzger Attending Unavailable EVELINA SHAFER Primary Care Unavailab EVELINA Up Primary Care Unavailab ANGIE Gil Attending Unavailable EVELINA SHAFER Primary Care Unavailab EVELINA Up Referring Unavailab EVELINA Up Attending Unavailab EVELINA Up Primary Care Unavailab EVELINA Up Primary Care Unavailab le Allergies Allergy Classification Reported Allergen(s) Allergy Type Date of Onset Reaction(s) Facility (20 sources) atorvastatin; Translations: [ATORVASTATIN] Drug Allergy 0 Mental Status Change [facility] Work Phone: (20 sources) diphenhydrAMINE ; Translations: [DIPHENHYDRAMIN E] Drug Allergy 1 Other: See Comments [facility] Work Phone: [phone] (9 sources) Penicillins; Translations: [PENICILLINS] Propensity to adverse reactions 6 [facility] Work Phone: [phone] (20 sources) tamsulosin; Translations: [TAMSULOSIN] Drug Allergy 9 Other: See Comments [facility] Work Phone: (9 sources) Thiazides; Translations: [THIAZIDES] Propensity to adverse reactions to drug [facility] (20 sources) traZODone; Translations: [TRAZODONE] Drug Allergy 1 Mental Status Change [facility] Work Phone: (20 sources) Penicillins Propensity to adverse reactions 6 [facility] Work Phone: (20 sources) Thiazides Propensity to adverse reactions to drug [facility]: (20 sources) HMG-CoA reductase inhibitor; Translations: [UOTNOLF-SHF-OF A REDUCTASE INHIBITORS] Drug Intolerance 2 Mental Status Change [facility] (9 sources) ezetimibe; Translations: [EZETIMIBE] Drug Allergy 3 Mental Status Change [facility] Work Phone: Medications Current Medications Medication Drug Class(es) Dates Sig (Normalized) Sig (Original) escitalopram 10 mg oral tablet (1 source) Serotonin Reuptake Inhibitor Start: 01-05-2022 End: 04-05-2022 take 1 tablet by mouth once daily escitalopram oxalate (LEXAPRO) 10 mg tablet Take 1 tablet by mouth once daily. 30 tablet 2 01/05/2022 04/05/2022 Active Completed/Discontinued Medications Medication Drug Class(es) Dates Sig (Normalized) Sig (Original) ezetimibe 10 mg oral tablet (14 sources) Dietary Cholesterol Absorption Inhibitor End: 08-19-2022 take 1 tablet by mouth once daily ezetimibe (ZETIA) 10 mg tablet Take 10 mg by mouth once daily. 0 08/19/2022 Discontinued (Course of therapy completed) Problems Active Problems Problem Classification Problem Date Documented Da te Episodic/Chronic Acquired foot deformities (1 source) Acquired deformity of joint of big toe; Translations: [Other deformities of toe(s) (acquired), unspecified foot] Episodic Acute and unspecified renal failure (1 source) Acute injury of kidney; Translations: [Acute kidney failure, unspecified] Episodic Anxiety disorders (20 sources) Claustrophobia; Translations: [Claustrophobia] Onset: 12-06-2020 12-06-2020 Chronic Chronic kidney disease (20 sources) Chronic kidney disease; Translations: [Chronic kidney disease, unspecified] Onset: 12-06-2020 12-06-2020 Chronic Conduction disorders (20 sources) Right bundle branch block; Translations: [Other right bundle-branch block] Onset: 12-06-2020 12-06-2020 Chronic Diabetes mellitus with complications (20 sources) 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; Translations: [Type 2 diabetes mellitus with diabetic chronic kidney disease] Onset: 01-05-2022 01-05-2022 Chronic Diabetes mellitus without complication (20 sources) Type 2 diabetes mellitus without complication; Translations: [Type 2 diabetes mellitus without complications] 05-19-2016 Chronic Diabetes mellitus without complication (1 source) Diabetes mellitus without complication; Translations: [Type 2 diabetes mellitus with stage 3a chronic kidney disease, without long-term current use of insulin (HCC)] Onset: 08-27-2022 Disorders of lipid metabolism (20 sources) Pure hypercholesterolemi a; Translations: [Pure hypercholesterolemi a, unspecified] Onset: 11-14-2015 11-14-2015 Chronic Essential hypertension (20 sources) Hypertensive disorder; Translations: [Essential (primary) hypertension] Onset: 07-18-2012 07-18-2012 Chronic Fluid and electrolyte disorders (6 sources) Hyponatremia; Translations: [Hypo-osmolality and hyponatremia] Episodic Hyperplasia of prostate (20 sources) Benign prostatic hypertrophy with outflow obstruction; Translations: [Benign prostatic hyperplasia with lower urinary tract symptoms] Onset: 07-17-2018 07-17-2018 Chronic Hypertension with complications and secondary hypertension (9 sources) Hypertensive renal disease; Translations: [Hypertensive chronic kidney disease with stage 1 through stage 4 chronic kidney disease, or unspecified chronic kidney disease] Onset: 08-27-2022 Chronic Immunizations and screening for infectious disease (3 sources) Suspected disease caused by 2019-nCoV; Translations: [Suspected COVID-19 virus infection] Episodic Mood disorders (3 sources) Recurrent major depressive episodes, moderate ; Translations: [Major depressive disorder, recurrent, moderate] Onset: 09-10-2022 Chronic Nausea and vomiting (1 source) Nausea; Translations: [Nausea] Episodic Other connective tissue disease (1 source) Plantar fasciitis; Translations: [Plantar fascial fibromatosis] Episodic Other hereditary and degenerative nervous system conditions (3 sources) Restless legs; Translations: [Restless legs syndrome] Chronic Other infections; including parasitic (1 source) Personal history of other infectious and parasitic diseases; Translations: [History of COVID-19] Episodic Other injuries and conditions due to external causes (2 sources) At high risk for fall; Translations: [History of falling] Episodic Other male genital disorders (20 sources) Male erectile dysfunction, unspecified; Translations: [Impotence of organic origin] Onset: 07-18-2012 07-18-2012 Chronic Other nervous system disorders (1 source) Impaired cognition; Translations: [Other symptoms and signs involving cognitive functions and awareness] Episodic Other nutritional; endocrine; and metabolic disorders (1 source) Hypomagnesemia; Translations: [Hypomagnesemia] Chronic Other nutritional; endocrine; and metabolic disorders (1 source) Hypomagnesemia; Translations: [Hypomagnesemia] Onset: 09-10-2022 Chronic Other screening for suspected conditions (not mental disorders or infectious disease) (1 source) Patient encounter status; Translations: [Encounter for screening for lipoid disorders] Episodic Other upper respiratory disease (20 sources) Allergic rhinitis; Translations: [Other allergic rhinitis] 12-22-2005 Chronic Residual codes; unclassified (1 source) 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; Translations: [Insomnia due to medical condition] Chronic Residual codes; unclassified (1 source) Pain; Translations: [Pain, unspecified] Episodic Past or Other Problems Problem Classification Problem Date Documented Da te Episodic/Chronic Genitourinary symptoms and ill-defined conditions (20 sources) Jose Angel hematuria; Translations: [Gross hematuria] Onset: 05-18-2022 Episodic Influenza (2 sources) Influenza due to Influenza A virus; Translations: [Influenza due to other identified influenza virus with other respiratory manifestations] Onset: 09-10-2022 Episodic Other acquired deformities (20 sources) Spondylolisthesis; Translations: [Spondylolisthesis, site unspecified] Onset: 01-26-2014 01-26-2014 Episodic Other connective tissue disease (20 sources) Bilateral plantar fasciitis; Translations: [Plantar fascial fibromatosis] Onset: 02-26-2020 02-26-2020 Episodic Other connective tissue disease (14 sources) Pelvic floor dysfunction; Translations: [Other specified disorders of muscle] Onset: 07-07-2022 07-07-2022 Episodic Other injuries and conditions due to external causes (1 source) History of falling; Translations: [At high risk for falls] Onset: 09-10-2022 Episodic Residual codes; unclassified (20 sources) Other specified health status; Translations: [Other drug allergy] Onset: 07-07-2021 07-07-2021 Episodic Spondylosis; intervertebral disc disorders; other back problems (20 sources) Low back pain; Translations: [Low back pain] Onset: 01-26-2014 01-26-2014 Episodic Results Test Name Value Interpretation Reference Range Facil ity Vital Signs Date Time Vital Sign Value Performing Clinician Faci lity 09-10-2022 09:50-0400 Body weight 91.99 kg Evelina Shafer MD Work Phone: [facility] 09-10-2022 09:50-0400 Diastolic blood pressure 68 mm[Hg] Evelina Shafer MD Work Phone: [facility] 09-10-2022 09:50-0400 Heart rate 78 /min Evelina Shafer MD Work Phone: [facility] 09-10-2022 09:50-0400 Respiratory rate 16 /min Evelina Shafer MD Work Phone: [facility] 09-10-2022 09:50-0400 SaO2% (BldA) [Mass fraction] 100 % Evelina Shafer MD Work Phone: [facility] 09-10-2022 09:50-0400 Systolic blood pressure 110 mm[Hg] Evelina Shafer MD Work Phone: [facility] 06-01-2022 11:22-0500 Body weight 90.27 kg Evelina Shafer MD Work Phone: [facility] 06-01-2022 11:22-0500 Diastolic blood pressure 72 mm[Hg] Evelina Shafer MD Work Phone: [facility] 06-01-2022 11:22-0500 Heart rate 67 /min Evelina Shafer MD Work Phone: [facility] 06-01-2022 11:22-0500 Respiratory rate 16 /min Evelina Shafer MD Work Phone: [facility] 06-01-2022 11:22-0500 SaO2% (BldA) [Mass fraction] 100 % Evelina Shafer MD Work Phone: [facility] 06-01-2022 11:22-0500 Systolic blood pressure 116 mm[Hg] Evelina Shafer MD Work Phone: [facility] 05-19-2022 11:09-0500 Diastolic blood pressure 74 mm[Hg] Hedy Nevarez ACCOUNTING PROFESSOR.REGULATORY SUBMISSIONS SPECIALIST Work Phone: [facility] 05-19-2022 11:09-0500 Heart rate 67 /min Hedy Nevarez ACCOUNTING PROFESSOR.REGULATORY SUBMISSIONS SPECIALIST Work Phone: [facility] 05-19-2022 11:09-0500 SaO2% (BldA) [Mass fraction] 99 % Hedy Nevarez ACCOUNTING PROFESSOR.REGULATORY SUBMISSIONS SPECIALIST Work Phone: [facility] 05-19-2022 11:09-0500 Systolic blood pressure 115 mm[Hg] Hedy Nevarez ACCOUNTING PROFESSOR.REGULATORY SUBMISSIONS SPECIALIST Work Phone: [facility] 05-18-2022 11:06-0500 Diastolic blood pressure 72 mm[Hg] Barbara De MD Work Phone: [facility] 05-18-2022 11:06-0500 Heart rate 71 /min Barbara Orantes MD Work Phone: [facility] 05-18-2022 11:06-0500 Systolic blood pressure 135 mm[Hg] Barbara Orantes MD Work Phone: [facility] 05-01-2022 09:22-0400 Body weight 89.45 kg Evelina Shafer MD Work Phone: [facility] 05-01-2022 09:22-0400 Diastolic blood pressure 68 mm[Hg] Evelina Shafer MD Work Phone: [facility] 05-01-2022 09:22-0400 Heart rate 73 /min Evelina Shafer MD Work Phone: [facility] 05-01-2022 09:22-0400 Respiratory rate 16 /min Evelina Shafer MD Work Phone: [facility] 05-01-2022 09:22-0400 SaO2% (BldA) [Mass fraction] 99 % Evelina Shafer MD Work Phone: [facility] 05-01-2022 09:22-0400 Systolic blood pressure 110 mm[Hg] Evelina Shafer MD Work Phone: [facility] 04-17-2022 10:20-0400 Diastolic blood pressure 94 mm[Hg] Evelina Shafer MD Work Phone: [facility] 04-17-2022 10:20-0400 Systolic blood pressure 159 mm[Hg] Evelina Shafer MD Work Phone: [facility] 04-17-2022 10:15-0400 Heart rate 66 /min Evelina Shafer MD Work Phone: [facility] 04-17-2022 10:15-0400 Respiratory rate 18 /min Evelina Shafer MD Work Phone: [facility] 04-17-2022 10:15-0400 SaO2% (BldA) [Mass fraction] 98 % Evelina Shafer MD Work Phone: [facility] 04-17-2022 03:49-0400 Body height 180.3 cm [facility] Work Phone: [facility] 04-17-2022 03:49-0400 Body weight 88.5 kg [facility] Work Phone: [facility] 03-24-2022 12:03-0400 Body temperature 98.6 [degF] Minna Praisler-Wood ACCOUNTING PROFESSOR.REGULATORY SUBMISSIONS SPECIALIST Work Phone: [facility] 03-24-2022 12:03-0400 Body weight 88.45 kg Minna Praisler-Wood ACCOUNTING PROFESSOR.REGULATORY SUBMISSIONS SPECIALIST Work Phone: [facility] 03-24-2022 12:03-0400 Diastolic blood pressure 84 mm[Hg] Minna Praisler-Wood ACCOUNTING PROFESSOR.REGULATORY SUBMISSIONS SPECIALIST Work Phone: [facility] 03-24-2022 12:03-0400 Heart rate 84 /min Minna Praisler-Wood ACCOUNTING PROFESSOR.REGULATORY SUBMISSIONS SPECIALIST Work Phone: [facility] 03-24-2022 12:03-0400 Respiratory rate 16 /min Minna Praisler-Wood ACCOUNTING PROFESSOR.REGULATORY SUBMISSIONS SPECIALIST Work Phone: [facility] 03-24-2022 12:03-0400 SaO2% (BldA) [Mass fraction] 98 % Minna Praisler-Wood ACCOUNTING PROFESSOR.REGULATORY SUBMISSIONS SPECIALIST Work Phone: [facility] 03-24-2022 12:03-0400 Systolic blood pressure 122 mm[Hg] Minna Praisler-Wood ACCOUNTING PROFESSOR.REGULATORY SUBMISSIONS SPECIALIST Work Phone: [facility] 01-29-2022 14:25-0400 Body weight 90.9 kg Evelina Shafer MD Work Phone: [facility] 01-29-2022 14:25-0400 Respiratory rate 16 /min Evelina Shafer MD Work Phone: [facility] 01-29-2022 14:25-0400 SaO2% (BldA) [Mass fraction] 98 % Evelina Shafer MD Work Phone: [facility] 12-02-2021 09:26-0400 Body weight 91.08 kg Hedy Nevarez ACCOUNTING PROFESSOR.REGULATORY SUBMISSIONS SPECIALIST Work Phone: [facility] 12-02-2021 09:26-0400 Diastolic blood pressure 77 mm[Hg] Hedy Nevarez ACCOUNTING PROFESSOR.REGULATORY SUBMISSIONS SPECIALIST Work Phone: [facility] 12-02-2021 09:26-0400 Systolic blood pressure 128 mm[Hg] Hedy Roque ACCOUNTING PROFESSOR.REGULATORY SUBMISSIONS SPECIALIST Work Phone: [facility] 11-11-2021 09:58-0400 Diastolic blood pressure 76 mm[Hg] Barbara Orantes MD Work Phone: [facility] 11-11-2021 09:58-0400 Heart rate 66 /min Barbara Orantes MD Work Phone: [facility] 11-11-2021 09:58-0400 Systolic blood pressure 127 mm[Hg] Barbara Orantes MD Work Phone: [facility] 10-01-2021 11:12-0400 Body weight 89.9 kg Angie Podlogar ACCOUNTING PROFESSOR.REGULATORY SUBMISSIONS SPECIALIST Work Phone: [facility] 10-01-2021 11:12-0400 Diastolic blood pressure 82 mm[Hg] Angie Podlogar ACCOUNTING PROFESSOR.REGULATORY SUBMISSIONS SPECIALIST Work Phone: [facility] 10-01-2021 11:12-0400 Heart rate 70 /min Angie Podlogar ACCOUNTING PROFESSOR.REGULATORY SUBMISSIONS SPECIALIST Work Phone: [facility] 10-01-2021 11:12-0400 Respiratory rate 18 /min Angie Podlogar ACCOUNTING PROFESSOR.REGULATORY SUBMISSIONS SPECIALIST Work Phone: [facility] 10-01-2021 11:12-0400 SaO2% (BldA) [Mass fraction] 100 % Angie Podlogar ACCOUNTING PROFESSOR.REGULATORY SUBMISSIONS SPECIALIST Work Phone: [facility] 10-01-2021 11:12-0400 Systolic blood pressure 118 mm[Hg] Angie Podlogar ACCOUNTING PROFESSOR.REGULATORY SUBMISSIONS SPECIALIST Work Phone: [facility] Encounters Encounter Date Encounter Type Care Provider Facility Start: 05-03-2023 ambulatory Petty Whittaker RN [facility] Care Management Procedures Date Procedure Procedure Detail Performing Clinician Start: 05-27-2022 Ct abdomen & pelvis w/o contrst 1/> body re Luigi Suresh MD Work Phone: Start: 05-01-2022 PFIZER-BIONTECH COVI D-19 BIVALENT BOOSTER VACCINE, AGE 12+ YR Evelina Shafer MD Work Phone: Start: 12-30-2021 Radex foot complete minimum 3 views Daniel Bettie Work Phone: Start: 11-11-2021 Urnls dip stick/tabl et rgnt auto w/o microscopy Barbara Orantes MD Work Phone: Start: 08-14-2021 Adult depression screening assessment Evelina Shafer MD Work Phone: Start: 01-19-2014 Colonoscopy Georges Shafer MD Work Phone: Plan of Treatment Date Care Activity Detail Author Start: 12-18-2026 Urine microalbumin profile [facility] Start: 01-20-2024 Colonoscopy COLONOSCOPY [facility] Start: 01-20-2024 COLORECTAL CANCER SCREENING COLORECTAL CANCER SCREENING [facility] Start: 09-11-2023 3 comp foot exam completed DIABETIC FOOT EXAM [facility] Start: 09-11-2023 ANNUAL PCP TEAM CHRONIC DISEASE VISIT ANNUAL PCP TEAM CHRONIC DISEASE VISIT [facility] Start: 09-11-2023 BP CONTROLLED (<130/80) BP CONTROLLED (<130/80) [facility] Start: 09-11-2023 SERUM CREATININE SERUM CREATININE [facility] Start: 08-06-2023 BP CONTROLLED (<130/80) BP CONTROLLED (<130/80) [facility] Start: 07-29-2023 Hepatitis C antibody, confirmatory test DILATED RETINAL EXAM [facility] Start: 06-01-2023 ANNUAL PCP TEAM CHRONIC DISEASE VISIT ANNUAL PCP TEAM CHRONIC DISEASE VISIT [facility] Start: 06-01-2023 BP CONTROLLED (<130/80) BP CONTROLLED (<130/80) [facility] Start: 05-28-2023 SERUM CREATININE SERUM CREATININE [facility] Start: 05-19-2023 BP CONTROLLED (<130/80) BP CONTROLLED (<130/80) [facility] Start: 05-01-2023 ANNUAL PCP TEAM CHRONIC DISEASE VISIT ANNUAL PCP TEAM CHRONIC DISEASE VISIT [facility] Start: 05-01-2023 BP CONTROLLED (<130/80) BP CONTROLLED (<130/80) [facility] Start: 04-17-2023 ANNUAL PCP TEAM CHRONIC DISEASE VISIT ANNUAL PCP TEAM CHRONIC DISEASE VISIT [facility] Start: 03-31-2023 ANNUAL PCP TEAM CHRONIC DISEASE VISIT ANNUAL PCP TEAM CHRONIC DISEASE VISIT [facility] Start: 03-13-2023 Hemoglobin A1c/Hemoglobin.total in Blood HBA1C [facility] Start: 02-26-2023 Covid-19 Vaccine () Covid-19 Vaccine () [facility] Start: 02-26-2023 Influenza vaccination [facility] Start: 01-29-2023 ANNUAL PCP TEAM CHRONIC DISEASE VISIT ANNUAL PCP TEAM CHRONIC DISEASE VISIT [facility] Start: 01-29-2023 SERUM CREATININE SERUM CREATININE [facility] Start: 01-27-2023 Hepatitis B surface antibody level LDL CHOLESTEROL [facility] Start: 01-05-2023 ANNUAL PCP TEAM CHRONIC DISEASE VISIT ANNUAL PCP TEAM CHRONIC DISEASE VISIT [facility] Start: 01-05-2023 BP CONTROLLED (<130/80) BP CONTROLLED (<130/80) [facility] Start: 01-05-2023 Hepatitis B screening URINE ALBUMIN:CREATININE RATIO [facility] Start: 01-05-2023 SERUM CREATININE SERUM CREATININE [facility] Start: 12-02-2022 BP CONTROLLED (<130/80) BP CONTROLLED (<130/80) [facility] Start: 11-22-2022 Hemoglobin A1c/Hemoglobin.total in Blood HBA1C [facility] Start: 11-13-2022 HEMOGLOBIN/HEMATOCRIT HEMOGLOBIN/HEMATOCRIT [facility] Start: 11-13-2022 SERUM CREATININE SERUM CREATININE [facility] Start: 11-11-2022 BP CONTROLLED (<130/80) BP CONTROLLED (<130/80) [facility] Start: 10-15-2022 ANNUAL PCP TEAM CHRONIC DISEASE VISIT ANNUAL PCP TEAM CHRONIC DISEASE VISIT [facility] Start: 10-15-2022 BP CONTROLLED (<130/80) BP CONTROLLED (<130/80) [facility] Start: 10-01-2022 ANNUAL PCP TEAM CHRONIC DISEASE VISIT ANNUAL PCP TEAM CHRONIC DISEASE VISIT [facility] Start: 10-01-2022 BP CONTROLLED (<130/80) BP CONTROLLED (<130/80) [facility] Start: 09-11-2022 End: 11-11-2022 POTASSIUM BLD POTASSIUM BLD Lab Routine Hyperkalemia Expected: 09/11/2022, Expires: 11/11/2022 [facility] Work Phone: Immunizations Immunization Date Immunization Notes Care Provider Fa cili 05-01-2022 COVID-19 booster vaccine, age 12+ yr, bivalent (PFIZER-BIONTECH) Evelina Shafer MD Work Phone: [facility] 04-15-2022 influenza virus vaccine, unspecified formulation Ct (I-Stat) Work Phone: [facility] 09-02-2021 COVID-19 vaccine, ag e 12+ yr (PFIZER-BIONTECH - PURPLE TOP) Angie Podlogar ACCOUNTING PROFESSOR.REGULATORY SUBMISSIONS SPECIALIST Work Phone: [facility] Work Phone: 04-23-2021 COVID-19 vaccine, fu ll dose (MODERNA) Evelina Shafer MD Work Phone: [facility] 04-23-2021 influenza (aIIV4) vaccine, age 65+ yr, quadrivalent, PF (FLUAD QUADRIVALENT) Angie Podlogar ACCOUNTING PROFESSOR.REGULATORY SUBMISSIONS SPECIALIST Work Phone: [facility] Work Phone: 02-25-2021 influenza, high dose seasonal, preservative-free Evelina Shafer MD Work Phone: [facility] 09-10-2020 COVID-19 vaccine, fu ll dose (MODERNA) Evelina Shafer MD Work Phone: [facility] 08-14-2020 COVID-19 vaccine, fu ll dose (MODERNA) Evelina Shafer MD Work Phone: [facility] 03-12-2020 influenza, high-dose , quadrivalent vaccine (FLUZONE HIGH DOSE QUADRIVALENT) Evelina Shafer MD Work Phone: [facility] Work Phone: 03-11-2020 influenza, high-dose , quadrivalent vaccine (FLUZONE HIGH DOSE QUADRIVALENT) Evelina Shafer MD Work Phone: [facility] [facility] Work Phone: 12-13-2019 zoster vaccine recombinant Evelina Shafer MD Work Phone: [facility] 08-02-2019 zoster vaccine recombinant Evelina Shafer MD Work Phone: [facility] 03-20-2019 influenza virus vaccine, unspecified formulation Evelina Shafer MD Work Phone: [facility] Work Phone: 10-18-2018 measles, mumps and rubella virus vaccine Evelina Shafer MD Work Phone: [facility] 06-24-2018 influenza, high dose seasonal, preservative-free Evelina Shafer MD Work Phone: [facility] 07-26-2017 influenza, seasonal, injectable Evelina Shafer MD Work Phone: [facility] 07-26-2017 pneumococcal polysaccharide vaccine, 23 valent Evelina Shafer MD Work Phone: [facility] 12-18-2016 tetanus and diphther ia toxoids, adsorbed, preservative free, for adult use (5 Lf of tetanus toxoid and 2 Lf of diphtheria toxoid) Evelina Shafer MD Work Phone: [facility] 05-26-2016 pneumococcal conjuga te vaccine, 13 valent Evelina Shafer MD Work Phone: [facility] 04-09-2015 influenza, injectabl e, quadrivalent, contains preservative Evelina Shafer MD Work Phone: [facility] 10-11-2014 zoster vaccine, live Huey Shafer MD Work Phone: [facility] 07-18-2012 influenza virus vaccine, unspecified formulation Evelina Shafer MD Work Phone: [facility] 08-02-2009 pneumococcal polysaccharide vaccine, 23 valent Evelina Shafer MD Work Phone: [facility] 08-02-2009 tetanus toxoid, redu tanna diphtheria toxoid, and acellular pertussis vaccine, adsorbed Evelina Shafer MD Work Phone: [facility] 04-24-2009 influenza virus vaccine, unspecified formulation Evelina Shafer MD Work Phone: [facility] 05-31-2008 influenza virus vaccine, unspecified formulation Evelina Shafer MD Work Phone: [facility] Work Phone: Payers Date Payer Category Payer Unknown MMO MMO MEDICARE SUPPLEMENT [id number] 2018-Present [phone] [address] [place] [address] Indemnity [id number] 2018 Unknown MMO MMO MEDICARE SUPPLEMENT [id number] 2018-Present [phone] [address] [place] [address] Indemnity [id number] 2018 Unknown 2042 2015 Medicare MEDICARE MEDICAR E A AND B [id number] 2015-Present [phone] [address] [address] [place] [address] Medicare [id number] 2015 Medicare MEDICARE MEDICAR E A AND B [id number] 2015-Present [phone] [address] [address] [place] [address] Medicare [id number] 2015 Medicare [id number] 1950 Unknown [id number] Social History Date Type Detail Facility Start: 06-08-2016 End: 03-24-2022 Tobacco smoking status NHIS Never smoked tobacco [facility] Start: 08-14-2021 End: 05-19-2022 Alcohol intake Ex-drinker (finding) [facility] Start: 08-12-2021 End: 05-26-2022 History SDOH Alcohol Frequency 1 [facility] Start: 08-12-2021 End: 05-26-2022 History SDOH Social Connections Phone 5 [facility] Start: 08-12-2021 End: 05-26-2022 History SDOH Social Connections Get Together 2 [facility] Start: 08-12-2021 End: 05-26-2022 History SDOH Social Connections Living 3 [facility] Start: 06-25-2019 Education 12 [facility] Start: 1950 Sex Assigned At Male [facility] Start: 08-02-2021 End: 05-28-2022 Exposure to SARS-CoV-2 (event) Not sure [facility] Start: 01-16-2022 End: 01-26-2022 Exposure to SARS-CoV-2 (event) Unable to assess [facility] Work Phone: Start: 06-08-2016 End: 03-24-2022 Tobacco use and exposure Smokeless tobacco non-user [facility] Start: 05-26-2022 History SDOH Alcohol Std Drinks 0 [facility] Start: 05-26-2022 History SDOH Physical Activity DPW 6 [facility] Start: 06-01-2020 End: 05-26-2022 History of Social function [facility] Start: 06-01-2020 End: 05-26-2022 Social connection and isolation panel [facility] Do you belong to any clubs or organizations such as roman catholic groups, unions, fraternal or athletic groups, or school groups? No [facility] Are you now , , , , never or living with a partner? [facility] How often to you hav e a drink containing alcohol? Never [facility] How many standard dr inks containing alcohol do you have on a typical day? Patient does not drink [facility] How hard is it for y ou to pay for the very basics like food, housing, medical care, and heating Somewhat hard [facility] Do you feel stress - tense, restless, nervous, or anxious, or unable to sleep at night because your mind is troubled all the time - these days [OSQ] Only a little [facility] (I/We) worried racheal er (my/our) food would run out before (I/we) got money to buy more. Never true [facility] Start: 01-05-2019 Gender identity Identifies as male gender (finding) [facility] Start: 04-11-2019 Sexual orientation Heterosexual (finding) [facility] Medical Equipment Procedure Code Equipment Code Equipment Origin al Text Equipment Identifier Dates Start: 11-02-2013 End: 10-14-2022 Goals Date Patient Goal Desired Activity /State Personal health goal Clinical Notes 10-01-2020 to 07-15-2023 Petty Whittaker RN - 05/03/2023 3:30 PM ESTAddendum Note - Michael Rao MD - 01/06/2023 2:29 PM EDTTelephone Encounter - Rosetta Rahman LPN - 09/11/2022 12:56 PM EDT Note Date & Type Note Facility 07-15-2023 Note Patient Outreach ([facility]) OSMAN PADGETT ([id number]) 1950 M Date Time Provider Department 07/15/23 PETTY WHITTAKER During your visit today, we recorded the following information about you: Petty Whittaker RN 07/15/2023 10:58 AM Signed CDM Telephonic Outreach Provider Action/FYI Contacted for: Routine Telephonic Outreach Contact made with patient: Yes Patient identified by name and date of . Discussed care with patient Are you experiencing any new or worsening symptoms you need to talk about today? Patient reports he is changing to a non [facility] PCP. Allergies As of Date: 07/15/2023 Noted Allergy Reaction BENADRYL (DIPHENHYDRAMINE) 07/01/2020 14 - Other: See Comments Comments: Paradoxical effect FLOMAX (TAMSULOSIN) 06/26/2019 14 - Other: See Comments Comments: Problem with ejaculation LIPITOR (ATORVASTATIN) 12/28/2019 1 - Mental Status Change Comments: Confusion PENICILLINS 11/18/2005 2 - Rash [id number] REDUCTASE INHIBIT*05/18/2022 1 - Mental Status Change THIAZIDES 03/02/2021 15 - Contraindication-Medical [place]* Comments: hypoNa TRAZODONE 07/01/2020 1 - Mental Status Change Comments: Increased anxiety ZETIA (EZETIMIBE) 09/10/2022 1 - Mental Status Change Date Reviewed: 09/10/2022 Reviewed by: Abril Vallecillo LPN - Fully Assessed Reason for Visit: cdm outreach [Other] Cmt: Telephonic cdm Prescriptions as of 07/15/2023 - gabapentin (NEURONTIN) 400 mg capsule TAKE 1 CAPSULE BY MOUTH 1 HOUR BEFORE BEDTIME IN ADDITION TO 100MG - FLUoxetine 10 mg tablet Take 1 tablet by mouth once daily. - FLUoxetine (PROZAC) 40 mg capsule Take 1 capsule by mouth once daily. - gabapentin (NEURONTIN) 100 mg capsule TAKE 3 CAPSULES BY MOUTH 1 HOUR BEFORE BEDTIME. - blood sugar diagnostic (FREESTYLE LITE STRIPS) test strip Test blood sugar(s) 1 times daily. E11.9-type 2 diabetes mellitus, no insulin - lisinopril (ZESTRIL) 10 mg tablet Take 1 tablet by mouth once daily. - sildenafil (VIAGRA) 100 mg tablet Take 100 mg by mouth as needed. - fluticasone (FLONASE) 50 mcg/actuation nasal spray Use 2 Sprays in each nostril once daily. Rinse mouth after use. - metFORMIN (GLUCOPHAGE) 1,000 mg tablet Take 1 tab by mouth in am and 1/2 tablet in evening. - Magnesium 250 mg tab Take 500 mg by mouth once daily. - LORATADINE (CLARITIN ORAL) Take by mouth. - Lancets (ACCU-CHEK MULTICLIX LANCET) lancets check blood sugar as directed every other day 250.00 Non Insulin dependent Problem List As Of Date 07/15/2023 Noted Resolved Type 2 diabetes mellitus with stage 3a chronic * Pure hypercholesterolemia [E78.00] ALLERGIC RHINITIS NEC [J30.89] Hypertension [I10] 07/18/2012 Erectile dysfunction [N52.9] 07/18/2012 Spondylolisthesis [M43.10] 01/26/2014 Low back pain [M54.50] 01/26/2014 BPH with obstruction/lower urinary tract sympto*07/17/2018 Plantar fasciitis, bilateral [M72.2] 02/26/2020 Acute pain of both knees [M25.561, M25.562] 10/01/2020 10/15/2020 RBBB [I45.10] 12/06/2020 Stage 3a chronic kidney disease (HCC) [N18.31] 12/06/2020 Claustrophobia [F40.240] 12/06/2020 Hyperlipidemia [E78.5] 02/10/2021 Statin intolerance [Z78.9] 07/07/2021 CKD stage 2 due to type 2 diabetes mellitus (HC*01/05/2022 08/27/2022 Gross hematuria [R31.0] 05/18/2022 Pelvic floor dysfunction [M62.89] 07/07/2022 Hypertensive kidney disease with stage 3a chron*08/27/2022 Encounter Status:Closed by PETTY WHITTAKER on 07/15/23 [facility] 07-15-2023 Note HNO ID: [id number] Author: PETTY WHITTAKER, RN Service: ? Author Type: Registered Nurse Type: Progress Notes Filed: 07/15/2023 10:58 Note Text: CDM Telephonic Outreach Provider Action/FYI Contacted for: Routine Telephonic Outreach Contact made with patient: Yes Patient identified by name and date of . Discussed care with patient Are you experiencing any new or worsening symptoms you need to talk about today? Patient reports he is changing to a non [facility] PCP. [facility] 05-17-2023 Note Patient Outreach ([facility]) OSMAN PADGETT ([id number]) 1950 M Date Time Provider Department 05/17/23 PETTY WHITTAKER During your visit today, we recorded the following information about you: Petty Whittaker RN 05/17/2023 8:36 AM Signed CDM Telephonic Outreach Provider Ryder/KATIE Contacted for: Routine Telephonic Outreach Contact made with patient: Yes Patient identified by name and date of . Discussed care with patient Are you experiencing any new or worsening symptoms you need to talk about today? Patient reports he no longer has a [facility] provider. Allergies As of Date: 05/17/2023 Noted Allergy Reaction BENADRYL (DIPHENHYDRAMINE) 07/01/2020 14 - Other: See Comments Comments: Paradoxical effect FLOMAX (TAMSULOSIN) 06/26/2019 14 - Other: See Comments Comments: Problem with ejaculation LIPITOR (ATORVASTATIN) 12/28/2019 1 - Mental Status Change Comments: Confusion PENICILLINS 11/18/2005 2 - Rash [id number] REDUCTASE INHIBIT*05/18/2022 1 - Mental Status Change THIAZIDES 03/02/2021 15 - Contraindication-Medical [place]* Comments: hypoNa TRAZODONE 07/01/2020 1 - Mental Status Change Comments: Increased anxiety ZETIA (EZETIMIBE) 09/10/2022 1 - Mental Status Change Date Reviewed: 09/10/2022 Reviewed by: Abril Vallecillo LPN - Fully Assessed Reason for Visit: cdm outreach [Other] Cmt: Telephonic cdm Prescriptions as of 05/17/2023 - gabapentin (NEURONTIN) 400 mg capsule TAKE 1 CAPSULE BY MOUTH 1 HOUR BEFORE BEDTIME IN ADDITION TO 100MG - FLUoxetine 10 mg tablet Take 1 tablet by mouth once daily. - FLUoxetine (PROZAC) 40 mg capsule Take 1 capsule by mouth once daily. - gabapentin (NEURONTIN) 100 mg capsule TAKE 3 CAPSULES BY MOUTH 1 HOUR BEFORE BEDTIME. - blood sugar diagnostic (FREESTYLE LITE STRIPS) test strip Test blood sugar(s) 1 times daily. E11.9-type 2 diabetes mellitus, no insulin - lisinopril (ZESTRIL) 10 mg tablet Take 1 tablet by mouth once daily. - sildenafil (VIAGRA) 100 mg tablet Take 100 mg by mouth as needed. - fluticasone (FLONASE) 50 mcg/actuation nasal spray Use 2 Sprays in each nostril once daily. Rinse mouth after use. - metFORMIN (GLUCOPHAGE) 1,000 mg tablet Take 1 tab by mouth in am and 1/2 tablet in evening. - Magnesium 250 mg tab Take 500 mg by mouth once daily. - LORATADINE (CLARITIN ORAL) Take by mouth. - Lancets (ACCU-CHEK MULTICLIX LANCET) lancets check blood sugar as directed every other day 250.00 Non Insulin dependent Problem List As Of Date 05/17/2023 Noted Resolved Type 2 diabetes mellitus with stage 3a chronic * Pure hypercholesterolemia [E78.00] ALLERGIC RHINITIS NEC [J30.89] Hypertension [I10] 07/18/2012 Erectile dysfunction [N52.9] 07/18/2012 Spondylolisthesis [M43.10] 01/26/2014 Low back pain [M54.50] 01/26/2014 BPH with obstruction/lower urinary tract sympto*07/17/2018 Plantar fasciitis, bilateral [M72.2] 02/26/2020 Acute pain of both knees [M25.561, M25.562] 10/01/2020 10/15/2020 RBBB [I45.10] 12/06/2020 Stage 3a chronic kidney disease (HCC) [N18.31] 12/06/2020 Claustrophobia [F40.240] 12/06/2020 Hyperlipidemia [E78.5] 02/10/2021 Statin intolerance [Z78.9] 07/07/2021 CKD stage 2 due to type 2 diabetes mellitus (HC*01/05/2022 08/27/2022 Gross hematuria [R31.0] 05/18/2022 Pelvic floor dysfunction [M62.89] 07/07/2022 Hypertensive kidney disease with stage 3a chron*08/27/2022 Encounter Status:Closed by PETTY WHITTAKER on 05/17/23 [facility] 05-17-2023 Note HNO ID: [id number] Author: Petty Whittaker RN Service: ? Author Type: Registered Nurse Type: Progress Notes Filed: 05/17/2023 8:36 AM Note Text: CDM Telephonic Outreach Provider Action/FYI Contacted for: Routine Telephonic Outreach Contact made with patient: Yes Patient identified by name and date of . Discussed care with patient Are you experiencing any new or worsening symptoms you need to talk about today? Patient reports he no longer has a [facility] provider. [facility] 05-03-2023 Note HNO ID: [id number] Author: Petty Whittaker RN Service: ? Author Type: Registered Nurse Type: Progress Notes Filed: 05/03/2023 3:32 PM Note Text: CDM Telephonic Outreach Provider Action/FYI Converted to telephonic Contacted for: Routine Telephonic Outreach Contact made with patient: No, left message. Petty Whittaker RN May 03, 2023 3:30 PM [facility] 05-03-2023 History of Present illness Narrative CDM Telephonic Outreach Provider Action/FYI Converted to telephonic Contacted for: Routine Telephonic Outreach Contact made with patient: No, left message. Petty Whittaker RN May 03, 2023 3:30 PM documented in this encounter [facility] 05-03-2023 Note Patient Outreach ([facility]) OSMAN PADGETT ([id number]) 1950 M Date Time Provider Department 05/03/23 [facility] During your visit today, we recorded the following information about you: Petty Whittaker RN 05/03/2023 3:32 PM Signed CDM Telephonic Outreach Provider Action/FYI Converted to telephonic Contacted for: Routine Telephonic Outreach Contact made with patient: No, left message. Petty Whittaker RN May 03, 2023 3:30 PM Allergies As of Date: 05/03/2023 Noted Allergy Reaction BENADRYL (DIPHENHYDRAMINE) 07/01/2020 14 - Other: See Comments Comments: Paradoxical effect FLOMAX (TAMSULOSIN) 06/26/2019 14 - Other: See Comments Comments: Problem with ejaculation LIPITOR (ATORVASTATIN) 12/28/2019 1 - Mental Status Change Comments: Confusion PENICILLINS 11/18/2005 2 - Rash [id number] REDUCTASE INHIBIT*05/18/2022 1 - Mental Status Change THIAZIDES 03/02/2021 15 - Contraindication-Medical [place]* Comments: hypoNa TRAZODONE 07/01/2020 1 - Mental Status Change Comments: Increased anxiety ZETIA (EZETIMIBE) 09/10/2022 1 - Mental Status Change Date Reviewed: 09/10/2022 Reviewed by: Abril Vallecillo LPN - Fully Assessed Reason for Visit: cdm outreach [Other] Cmt: Telephonic cdm Prescriptions as of 05/03/2023 - gabapentin (NEURONTIN) 400 mg capsule TAKE 1 CAPSULE BY MOUTH 1 HOUR BEFORE BEDTIME IN ADDITION TO 100MG - FLUoxetine 10 mg tablet Take 1 tablet by mouth once daily. - FLUoxetine (PROZAC) 40 mg capsule Take 1 capsule by mouth once daily. - gabapentin (NEURONTIN) 100 mg capsule TAKE 3 CAPSULES BY MOUTH 1 HOUR BEFORE BEDTIME. - blood sugar diagnostic (FREESTYLE LITE STRIPS) test strip Test blood sugar(s) 1 times daily. E11.9-type 2 diabetes mellitus, no insulin - lisinopril (ZESTRIL) 10 mg tablet Take 1 tablet by mouth once daily. - sildenafil (VIAGRA) 100 mg tablet Take 100 mg by mouth as needed. - fluticasone (FLONASE) 50 mcg/actuation nasal spray Use 2 Sprays in each nostril once daily. Rinse mouth after use. - metFORMIN (GLUCOPHAGE) 1,000 mg tablet Take 1 tab by mouth in am and 1/2 tablet in evening. - Magnesium 250 mg tab Take 500 mg by mouth once daily. - LORATADINE (CLARITIN ORAL) Take by mouth. - Lancets (ACCU-CHEK MULTICLIX LANCET) lancets check blood sugar as directed every other day 250.00 Non Insulin dependent Problem List As Of Date 05/03/2023 Noted Resolved Type 2 diabetes mellitus with stage 3a chronic * Pure hypercholesterolemia [E78.00] ALLERGIC RHINITIS NEC [J30.89] Hypertension [I10] 07/18/2012 Erectile dysfunction [N52.9] 07/18/2012 Spondylolisthesis [M43.10] 01/26/2014 Low back pain [M54.50] 01/26/2014 BPH with obstruction/lower urinary tract sympto*07/17/2018 Plantar fasciitis, bilateral [M72.2] 02/26/2020 Acute pain of both knees [M25.561, M25.562] 10/01/2020 10/15/2020 RBBB [I45.10] 12/06/2020 Stage 3a chronic kidney disease (HCC) [N18.31] 12/06/2020 Claustrophobia [F40.240] 12/06/2020 Hyperlipidemia [E78.5] 02/10/2021 Statin intolerance [Z78.9] 07/07/2021 CKD stage 2 due to type 2 diabetes mellitus (HC*01/05/2022 08/27/2022 Gross hematuria [R31.0] 05/18/2022 Pelvic floor dysfunction [M62.89] 07/07/2022 Hypertensive kidney disease with stage 3a chron*08/27/2022 Encounter Status:Closed by PETTY WHITTAKER on 05/03/23 [facility] 01-06-2023 Miscellaneous Notes Addended by: MICHAEL RAO on: 01/06/2023 02:29 PM Modules accepted: Orders documented in this encounter [facility] 09-11-2022 Miscellaneous Notes Patient notified of providers message below. Voices understanding. Rosetta Rahman LPN Diabetes well controlled. Magnesium level normal. Sodium level low which is similar to his previous labs. Potassium level elevated. 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 Will recheck potassium level early next week to rule out lab error. No change to regimen. documented in this encounter [facility] 09-10-2022 Note HNO ID: [id number] Author: Evelina Shafer MD Service: ? Author Type: Physician Type: Progress Notes Filed: 09/10/2022 11:33 AM Note Text: Chief Complaint Patient presents with: Follow Up: 3 month HPI Osman Padgett is a 72 year old male who presents here today for Above Complaints.. Previous HPI: DIABETES MELLITUS: Mr. Padgett was last seen 3 months ago. Since our last visit he denies excessive thirst or increased frequency of urination, numbness, tingling or pain in extremities, new or unusual visual symptoms, and low sugar/hypoglycemic reactions. Follows a diabetic diet most of the time. He is compliant with medication(s) and is tolerating med(s) without any side effects. He reports checking his glucose on a weekly schedule with sugars in the <150 range on random checks. Patient's last HgA1C was Hemoglobin A1C (%) Date Value 01/05/2022 6.2 07/08/2021 6.5 12/31/2020 6.2 ) Last Ophthalmology exam was within the past 12 months Last Podiatry exam was within the past 12 months Noted that his sodium level was low 129 at [facility] on 03/[address] Gerard's office they recommended Liquid IV Hydration multiplier in his water once per day. Contains 500 mg of sodium. Has been taking for the last 2 days. Discussed our levels here have been normal. BP well controlled on current regimen. PHQ-2 / Depression screen He in the past two weeks denies having felt down, depressed, hopeless or with little interest or pleasure in doing things. Has had 3 falls while working in the yard. Once hit his head on the concrete about 2-3 weeks ago without LOC. Other times fell on to right shoulder/arm with swelling over his wrist which has resolved. Denies headache, vision changes, slurred speech, vision changes, joint pain, weakness. Has cane at home, but has not felt unsteady walking. Interim: Patient notes that he was positive for influenza A on 09/03 and is feeling better aside from dry cough and fatigue. Was not treated with tamiflu. Just taking tylenol OTC right now. Denies fever/chills, SOB, wheezing, chest congestion, sore throat, ear pain/fullness, nasal congestion, nausea, vomiting, diarrhea. Patient denies falls since his last OV. Not using cane at home as directed and did not follow up with PT as recommended. DIABETES MELLITUS: Mr. Padgett was last seen 3 months ago. Since our last visit he denies excessive thirst or increased frequency of urination, numbness, tingling or pain in extremities, new or unusual visual symptoms, and low sugar/hypoglycemic reactions. Follows a diabetic diet most of the time. He is compliant with medication(s) and is tolerating med(s) without any side effects. He reports checking his glucose on a every other day schedule with sugars in the fasting <130 range. Patient's last HgA1C was Hemoglobin A1C (%) Date Value 05/25/2022 6.1 01/05/2022 6.2 07/08/2021 6.5 12/31/2020 6.2 ) Last Ophthalmology exam was within the past 3 months-[facility] about 1 month ago. No reported retinopathy Last Podiatry exam was more than 12 months ago [facility] Cardiology started him on zetia at last OV since he is statin intolerant, but this also caused mental status changes, so he stopped taking it. Denies angina, SOB, palpitations on current regimen. Anxiety/depression: controlled on Prozac without SI/HI, panic symptoms. Past medical history, appointments, medications, allergies reviewed. Previous Medical History PAST MEDICAL HISTORY Diagnosis Date Allergic rhinitis due to other allergen Basal cell carcinoma Shoulder BPH (benign prostatic hyperplasia) CKD stage 2 due to type 2 diabetes mellitus (HCC) Dr. Balbuena Erectile dysfunction Genital herpes Moderate episode of recurrent major depressive disorder (HCC) Other and unspecified hyperlipidemia Plantar fasciitis RBBB Dr. Gerard Statin intolerance Type II or unspecified type diabetes mellitus without mention of complication, not stated as uncontrolled Varicose veins of both lower extremities s/p laser removal Previous Surgical History PAST SURGICAL HISTORY Procedure Laterality Date COLONOSCOPY FLX DX W/COLLJ SPEC WHEN PFRMD 01/19/2014 Colonoscopy ESOPHAGOGASTRODUODENOSCOPY TRANSORAL DIAGNOSTIC 04/19/2014 EGD PAST SURGICAL HISTORY OF ~1989 Sinus tumor (benign) R max. Visual impairment. PAST SURGICAL HISTORY OF Bilateral 2015 laser surgery for varicose veins. PAST SURGICAL HISTORY OF 2019 dental implants PAST SURGICAL HISTORY OF 2019 deviated septum repair PAST SURGICAL HISTORY OF 2016 urolift PAST SURGICAL HISTORY OF BCC excision from back TONSILLECTOMY HX childhood Family History FAMILY HISTORY Problem Relation Age of Onset Breast Cancer Mother developed cancer in lymph nodes other (leukemia) Father Patient Allergies ALLERGIES Allergen Reactions Benadryl [Diphenhyd* Other: See Comments Paradoxical effect Flomax [Tamsulosin (more content not included)... [facility] 09-10-2022 History of Present illness Narrative Chief Complaint Patient presents with: Follow Up: 3 month HPI Osman Padgett is a 72 year old male who presents here today for Above Complaints.. Previous HPI: DIABETES MELLITUS: Mr. Padgett was last seen 3 months ago. Since our last visit he denies excessive thirst or increased frequency of urination, numbness, tingling or pain in extremities, new or unusual visual symptoms, and low sugar/hypoglycemic reactions. Follows a diabetic diet most of the time. He is compliant with medication(s) and is tolerating med(s) without any side effects. He reports checking his glucose on a weekly schedule with sugars in the <150 range on random checks. Patient's last HgA1C was Hemoglobin A1C (%) Date Value 01/05/2022 6.2 07/08/2021 6.5 12/31/2020 6.2 ) Last Ophthalmology exam was within the past 12 months Last Podiatry exam was within the past 12 months Noted that his sodium level was low 129 at [facility] on 03/[address] Gerard's office they recommended Liquid IV Hydration multiplier in his water once per day. Contains 500 mg of sodium. Has been taking for the last 2 days. Discussed our levels here have been normal. BP well controlled on current regimen. PHQ-2 / Depression screen He in the past two weeks denies having felt down, depressed, hopeless or with little interest or pleasure in doing things. Has had 3 falls while working in the yard. Once hit his head on the concrete about 2-3 weeks ago without LOC. Other times fell on to right shoulder/arm with swelling over his wrist which has resolved. Denies headache, vision changes, slurred speech, vision changes, joint pain, weakness. Has cane at home, but has not felt unsteady walking. Interim: Patient notes that he was positive for influenza A on 09/03 and is feeling better aside from dry cough and fatigue. Was not treated with tamiflu. Just taking tylenol OTC right now. Denies fever/chills, SOB, wheezing, chest congestion, sore throat, ear pain/fullness, nasal congestion, nausea, vomiting, diarrhea. Patient denies falls since his last OV. Not using cane at home as directed and did not follow up with PT as recommended. DIABETES MELLITUS: Mr. Padgett was last seen 3 months ago. Since our last visit he denies excessive thirst or increased frequency of urination, numbness, tingling or pain in extremities, new or unusual visual symptoms, and low sugar/hypoglycemic reactions. Follows a diabetic diet most of the time. He is compliant with medication(s) and is tolerating med(s) without any side effects. He reports checking his glucose on a every other day schedule with sugars in the fasting <130 range. Patient's last HgA1C was Hemoglobin A1C (%) Date Value 05/25/2022 6.1 01/05/2022 6.2 07/08/2021 6.5 12/31/2020 6.2 ) Last Ophthalmology exam was within the past 3 months-[facility] about 1 month ago. No reported retinopathy Last Podiatry exam was more than 12 months ago [facility] Cardiology started him on zetia at last OV since he is statin intolerant, but this also caused mental status changes, so he stopped taking it. Denies angina, SOB, palpitations on current regimen. Anxiety/depression: controlled on Prozac without SI/HI, panic symptoms. Past medical history, appointments, medications, allergies reviewed. Previous Medical History PAST MEDICAL HISTORY Diagnosis Date Allergic rhinitis due to other allergen Basal cell carcinoma Shoulder BPH (benign prostatic hyperplasia) CKD stage 2 due to type 2 diabetes mellitus (HCC) Dr. Balbuena Erectile dysfunction Genital herpes Moderate episode of recurrent major depressive disorder (HCC) Other and unspecified hyperlipidemia Plantar fasciitis RBBB Dr. Gerard Statin intolerance Type II or unspecified type diabetes mellitus without mention of complication, not stated as uncontrolled Varicose veins of both lower extremities s/p laser removal Previous Surgical History PAST SURGICAL HISTORY Procedure Laterality Date COLONOSCOPY FLX DX W/COLLJ SPEC WHEN PFRMD 01/19/2014 Colonoscopy ESOPHAGOGASTRODUODENOSCOPY TRANSORAL DIAGNOSTIC 04/19/2014 EGD PAST SURGICAL HISTORY OF ~1989 Sinus tumor (benign) R max. Visual impairment. PAST SURGICAL HISTORY OF Bilateral 2015 laser surgery for varicose veins. PAST SURGICAL HISTORY OF 2019 dental implants PAST SURGICAL HISTORY OF 2019 deviated septum repair PAST SURGICAL HISTORY OF 2016 urolift PAST SURGICAL HISTORY OF BCC excision from back TONSILLECTOMY HX childhood Family History FAMILY HISTORY Problem Relation Age of Onset Breast Cancer Mother developed cancer in lymph nodes other (leukemia) Father Patient Allergies ALLERGIES Allergen Reactions Benadryl [Diphenhyd* Other: See Comments Paradoxical effect Flomax [Tamsulosin] Other: See Comments Problem with ejaculation Lipitor [Atorvastat* Mental Status Change Confusion Penicillins Rash Aksiueg-Qkw-Qcf Red* Mental Status Change Thiazides Contraindication-Medical Surgical hypoNa Trazodone Mental Status Change Increased anxiety Current Medications Current Outpatient Medications on File Prior to Visit Medication Sig gabapentin (NEURONTIN) 400 mg capsule TAKE 1 CAPSULE BY MOUTH 1 HOUR BEFORE BEDTIME IN ADDITION TO 100 MG CAPSULE sildenafil (VIAGRA) 100 mg tablet Take 100 mg by mouth as needed. gabapentin (NEURONTIN) 100 mg capsule Take (3) capsules by mouth one hour before bedtime. Start as directed FLUoxetine (PROZAC) 40 mg capsule Take 1 capsule by mouth once daily. fluticasone (FLONASE) 50 mcg/actuation nasal spray Use 2 Sprays in each nostril once daily. Rinse mouth after use. lisinopril (ZESTRIL, PRINIVIL) 10 mg tablet Take 1 tablet by mouth once daily. metFORMIN (GLUCOPHAGE) 1,000 mg tablet Take 1 tab by mouth in am and 1/2 tablet in evening. Magnesium 250 mg tab Take 500 mg by mouth once daily. blood sugar diagnostic (FREESTYLE LITE STRIPS) test strip Test blood sugar(s) 1 times daily. E11.9-type 2 diabetes mellitus, no insulin LORATADINE (CLARITIN ORAL) Take by mouth. Lancets (ACCU-CHEK MULTICLIX LANCET) lancets check blood sugar as directed every other day 250.00 Non Insulin dependent No current facility-administered medications on file prior to visit. Social History Social History Tobacco Use Smoking status: Never Smokeless tobacco: Never Vaping Use Vaping Use: Never used Substance Use Topics Alcohol use: Not Currently Comment: occasionally Drug use: Yes Types: Marijuana Review of Symptoms REVIEW OF SYSTEMS GENERAL: No weight loss, malaise or fevers HEENT: Negative for frequent or significant headaches, No changes in hearing or vision, no nose bleeds or other nasal problems NECK: Negative for lumps, goiter, pain and significant neck swelling RESPIRATORY: Negative for cough, hemoptysis, wheezing, COPD, dyspnea or shortness of breath CARDIOVASCULAR: Negative for chest pain, leg swelling, hypertension, CHF or palpitations GI: No nausea, vomiting, or diarrhea SKIN: Negative for lesions, rash, and itching EXAM: BP 110/68 Pulse 78 Resp 16 Wt 92 kg (202 lb 12.8 oz) SpO2 100% BMI 27.50 kg/m General Appearance: Well appearing, alert, in no acute distress, well-hydrated, well nourished.. Skin: Skin color, texture, turgor normal, no suspicious rashes or lesions. Lungs: Lungs clear to auscultation. No wheezing, rhonchi, rales.. Heart: RRR without murmur, gallop, or rubs. No ectopy. Abdomen: Normal abdominal exam, Abdomen soft, non-tender. Bowel sounds normal. No masses, organomegaly. Extremities: No deformities, edema, skin discoloration, clubbing or cyanosis. Good capillary refill. . Feet: Shoes and socks removed, No deformities, ulcers, calluses, trace DP distal pulses, and not sensitive to monofilament bilaterally Health Maintenance List ADVANCE DIRECTIVE DISCUSSION Never done DEPRESSION ASSESSMENT due on 06/28/2022 DILATED RETINAL EXAM due on 07/02/2022 DIABETIC FOOT EXAM due on 07/07/2022 HEMOGLOBIN/HEMATOCRIT due on 11/13/2022 HBA1C due on 11/22/2022 URINE ALBUMIN:CREATININE RATIO due on 01/05/2023 LDL CHOLESTEROL due on 01/27/2023 SERUM CREATININE due on 05/28/2023 ANNUAL PCP TEAM CHRONIC DISEASE VISIT due on 06/01/2023 BP CONTROLLED (<130/80) due on 09/04/2023 COLORECTAL CANCER SCREENING due on 01/20/2024 DTAP,TDAP,TD(3 - Td or Tdap) due on 12/18/2026 INFLUENZA Completed HEPATITIS C SCREENING Completed SHINGRIX VACCINE Completed COVID-19 VACCINE Completed PNEUMOCOCCAL: 65+ Completed Data reviewed Component Latest Ref Rng & Units 05/25/2022 05/28/2022 Protein, Total 6.3 - 8.0 g/dL 7.2 Albumin 3.9 - 4.9 g/dL 4.4 Calcium 8.5 - 10.2 mg/dL 9.8 9.5 Bilirubin, Total 0.2 - 1.3 mg/dL 0.4 Alkaline Phosphatase 38 - 113 U/L 49 AST 14 - 40 U/L 17 ALT 10 - 54 U/L 12 Glucose 74 - 99 mg/dL 112 (H) 111 (H) BUN 9 - 24 mg/dL 30 (H) 24 Creatinine 0.73 - 1.22 mg/dL 1.26 (H) 1.36 (H) Sodium 136 - 144 mmol/L 133 (L) 131 (L) Potassium 3.7 - 5.1 mmol/L 5.5 (H) 4.8 Chloride 97 - 105 mmol/L 98 95 (L) CO2 22 - 30 mmol/L 25 27 Anion Gap 9 - 18 mmol/L 10 9 eGFR >=60 mL/min/1.73m 61 56 (L) Hemoglobin A1C 4.3 - 5.6 % 6.1 (H) Estimated Average Glucose mg/dL 128 Component Latest Ref Rng & Units 01/27/2022 Cholesterol, Total <200 mg/dL 180 Triglyceride <150 mg/dL 122 HDL Cholesterol >39 mg/dL 47 Non HDL Cholesterol <130 mg/dL 133 (H) Fasting Time hrs 12 VLDL Cholesterol <30 mg/dL 24 TC:HDL Ratio <5.10 3.83 LDL Cholesterol <100 mg/dL 109 (H) LDL:HDL Ratio <2.54 2.32 ASSESSMENT/PLAN: 1. Type 2 diabetes mellitus with stage 3a chronic kidney disease, without long-term current use of insulin (HCC) - ICD9: 250.40, 585.3, ICD10: E11.22, N18.31 (primary diagnosis) - Controlled - Continue current medications - Blood glucose monitoring on a once daily schedule - Discussed need for and benefit of weight loss. BMI 27.50 kg/(m^2) - Discussed diabetic education issues of diabetes complications and monitoring required, hypoglycemic/hyperglycemic symptoms, medication-specific side effects and monitoring, and diabetic sick day rules - Follow up in 6 months, sooner should any other issues arise. - eGFR: Stable - Counseled on avoiding regular use of NSAIDs, adequate hydration, potential risk of IV dye - Recommend maintaining A1c < 7% - Recommend maintaining blood pressure under 130/80 - Counseled on renal diet (low sodium/low potassium/low phosphorus) - COMP METABOLIC PANEL - HGB A1C 2. Influenza A - ICD9: 487.1, ICD10: J10.1 Symptoms improving. Normal exam today. Continue supportive care. Red flags for re-assessment reviewed with patient in detail. 3. Primary hypertension - ICD9: 401.9, ICD10: I10 - good control - Continue current medication(s) - Encouraged dietary sodium restriction/DASH diet - Recommended regular aerobic exercise. - Reviewed risks of HTN and principles of treatment - Goal of BP <140/90 4. Anxiety with depression - ICD9: 300.4, ICD10: F41.8 Controlled on SSRI. 5. Pure hypercholesterolemia - ICD9: 272.0, ICD10: E78.00 Patient intolerant to statins and Zetia. Last cholesterol was improved. Recheck around January. 6. Statin intolerance - ICD9: 995.27, ICD10: Z78.9 7. At high risk for falls - ICD9: V15.88, ICD10: Z91.81 Discussed use of cane for ambulation to prevent falls. Encouraged to f/u with PT. 8. Hypomagnesemia - ICD9: 275.2, ICD10: E83.42 Requesting recheck on his level. Taking supplement daily. - MAGNESIUM BLD 9. RBBB - ICD9: 426.4, ICD10: I45.10 Asymptomatic. Keep f/u with cardiology. Evelina Shafer MD documented in this encounter [facility] documented in this encounter [facility]03-09-2023 NoteHNO ID: [id number] Author: Lalo Ty APRN.REGULATORY SUBMISSIONS SPECIALIST Service: ? Author Type: Nurse Practitioner Type: Progress Notes Filed: 09/03/2022 7:42 PM Note Text: Subjective HPI Nontoxic-appearing male presents urgent care accompanied by his significant other. Chief complaint flulike symptoms. Duration of symptoms 2 days. Associated symptoms fever body aches chills fatigue sore throat headache cough. Patient states symptoms started abruptly. Reason for today's visit is new onset of loss of taste. No known sick contacts. Most bothersome symptom today is fatigue. Denies any productive cough chest pain shortness of breath pleuritic pain hemoptysis nausea vomiting abdominal pain change in bowel or bladder habits. Up-to-date on COVID-19 vaccines. Past medical history prescription medication use and allergies reviewed. .Patient presents with: Cough: Cough, congestion, fever, loss of appetite and fatigue x 2 days PAST MEDICAL HISTORY Diagnosis Date Allergic rhinitis due to other allergen Basal cell carcinoma Shoulder BPH (benign prostatic hyperplasia) CKD stage 2 due to type 2 diabetes mellitus (HCC) Dr. Balbuena Erectile dysfunction Genital herpes Moderate episode of recurrent major depressive disorder (HCC) Other and unspecified hyperlipidemia Plantar fasciitis RBBB Dr. Gerard Statin intolerance Type II or unspecified type diabetes mellitus without mention of complication, not stated as uncontrolled Varicose veins of both lower extremities s/p laser removal PAST SURGICAL HISTORY Procedure Laterality Date COLONOSCOPY FLX DX W/COLLJ SPEC WHEN PFRMD 01/19/2014 Colonoscopy ESOPHAGOGASTRODUODENOSCOPY TRANSORAL DIAGNOSTIC 04/19/2014 EGD PAST SURGICAL HISTORY OF ~1989 Sinus tumor (benign) R max. Visual impairment. PAST SURGICAL HISTORY OF Bilateral 2015 laser surgery for varicose veins. PAST SURGICAL HISTORY OF 2019 dental implants PAST SURGICAL HISTORY OF 2019 deviated septum repair PAST SURGICAL HISTORY OF 2016 urolift PAST SURGICAL HISTORY OF BCC excision from back TONSILLECTOMY HX childhood ALLERGIES Benadryl [Diphenhydramine], Flomax [Tamsulosin], Lipitor [Atorvastatin], Penicillins, Iorgcqe-Vrn-Ffl Reductase Inhibitors, Thiazides, and Trazodone MEDICATIONS gabapentin (NEURONTIN) 400 mg capsule TAKE 1 CAPSULE BY MOUTH 1 HOUR BEFORE BEDTIME IN ADDITION TO 100 MG CAPSULE sildenafil (VIAGRA) 100 mg tablet Take 100 mg by mouth as needed. gabapentin (NEURONTIN) 100 mg capsule Take (3) capsules by mouth one hour before bedtime. Start as directed FLUoxetine (PROZAC) 40 mg capsule Take 1 capsule by mouth once daily. fluticasone (FLONASE) 50 mcg/actuation nasal spray Use 2 Sprays in each nostril once daily. Rinse mouth after use. lisinopril (ZESTRIL, PRINIVIL) 10 mg tablet Take 1 tablet by mouth once daily. metFORMIN (GLUCOPHAGE) 1,000 mg tablet Take 1 tab by mouth in am and 1/2 tablet in evening. Magnesium 250 mg tab Take 500 mg by mouth once daily. blood sugar diagnostic (FREESTYLE LITE STRIPS) test strip Test blood sugar(s) 1 times daily. E11.9-type 2 diabetes mellitus, no insulin LORATADINE (CLARITIN ORAL) Take by mouth. Lancets (ACCU-CHEK MULTICLIX LANCET) lancets check blood sugar as directed every other day 250.00 Non Insulin dependent FAMILY HISTORY Problem Relation Age of Onset Breast Cancer Mother developed cancer in lymph nodes other (leukemia) Father Social History Tobacco Use Smoking status: Never Smokeless tobacco: Never Vaping Use Vaping Use: Never used Substance Use Topics Alcohol use: Not Currently Comment: occasionally Drug use: Yes Types: Marijuana BP 128/78 Pulse 62 Temp 37.2 ?C (98.9 ?F) (Tympanic) Resp 18 Wt 93.2 kg (205 lb 6.4 oz) SpO2 97% BMI 27.86 kg/m? Review of Systems Constitutional: Positive for chills, fever and malaise/fatigue. HENT: Positive for congestion and sore throat. Negative for ear discharge, ear pain and sinus pain. Eyes: Negative for blurred vision, pain, discharge and redness. Respiratory: Positive for cough. Negative for hemoptysis, sputum production, shortness of breath, wheezing and stridor. Cardiovascular: Negative for chest pain. Gastrointestinal: Negative for abdominal pain, diarrhea, nausea and vomiting. Musculoskeletal: Positive for myalgias. Skin: Negative for itching and rash. Neurological: Positive for headaches. Negative for dizziness. Objective Physical Exam Constitutional: General: He is not in acute distress. Appearance: He is not diaphoretic. HENT: Head: Normocephalic. Nose: Congestion present. Mouth/Throat: Mouth: Mucous membranes are moist. Pharynx: Oropharynx is clear. No oropharyngeal exudate or posterior oropharyngeal erythema. Eyes: Conjunctiva/sclera: Conjunctivae normal. Pupils: Pupils are equal, round, and reactive to light. Cardiovascular: Rate and Rhythm: Normal rate and regular rhythm. Heart sound (more content not included)...[facility]02-24-2023 NoteHNO ID: [id number] Author: Michael Rao MD Service: ? Author Type: Physician Type: Progress Notes Filed: 08/21/2022 11:47 AM Note Text: [facility] Disorders Center Follow up/ Established patient visit Visit performed virtually, with the patient's permission. Date of last visit : Visit date not found Interval history : Here for follow up for RLS Awakenings for restroom, but legs are 90% better on 600 mg of gabapentin, which he takes close to bed time. He continues to have mild daytime fatigue. The noted awakenings are occurring at similar intervals through the night, and Mrs. Padgett say there is mild snoring. SLEEP HYGIENE QUESTIONS: Bedtime : 830 Asleep: 900 Wake up Time : 500 am Time it takes to fall sleep : 30 Activities in bed before falling asleep : None Number of times patient wakes up per night : 2 Reason (s) why patient wakes up during the night : restroom Estimated total sleep time ( in a 24 hour period of time) : 8 Naps : No PATIENT-ENTERED QUESTIONNAIRE SLEEP SCORES Sleep Questions 08/14/2022 Reason for visit: Restless Legs Syndrome Average hours slept in 24 hours: - Accidents or near accidents due to drowsy drivin Amelia Sleepiness Scale 06/04/2022 08/14/2022 Score 2 (No daytime sleepiness) 0 (No daytime sleepiness) PROMIS CAT Sleep Disturbance 07/22/2021 06/04/2022 08/14/2022 PROMIS Sleep Disturbance T-Score 58 (mild) 69 (moderate) 64 (moderate) Insomnia Severity Index 06/04/2022 08/14/2022 Score 22 8 Restless Leg Syndrome 06/04/2022 Score 25 PHQ-9 08/14/2021 06/04/2022 08/14/2022 Score 14 11 5 PROMIS Global Health - (T-Scores - the mean of general population = 50. Five points is a clinically meaningful difference.) 03/31/2022 05/15/2022 08/14/2022 Physical T-Score 39.8 42.3 50.8 Mental T-Score 31.3 38.8 53.3 PMH, PSH, SH: No change SLEEP RELATED ROS Review of Systems ALLERGIES Allergen Reactions Benadryl [Diphenhyd* Other: See Comments Paradoxical effect Flomax [Tamsulosin] Other: See Comments Problem with ejaculation Lipitor [Atorvastat* Mental Status Change Confusion Penicillins Rash Hqujlfx-Fqp-Dkt Red* Mental Status Change Thiazides Contraindication-Medical Surgical hypoNa Trazodone Mental Status Change Increased anxiety CURRENT MEDICATIONS: gabapentin (NEURONTIN) 400 mg capsule TAKE 1 CAPSULE BY MOUTH 1 HOUR BEFORE BEDTIME IN ADDITION TO 100 MG CAPSULE sildenafil (VIAGRA) 100 mg tablet Take 100 mg by mouth as needed. gabapentin (NEURONTIN) 100 mg capsule Take (3) capsules by mouth one hour before bedtime. Start as directed FLUoxetine (PROZAC) 40 mg capsule Take 1 capsule by mouth once daily. fluticasone (FLONASE) 50 mcg/actuation nasal spray Use 2 Sprays in each nostril once daily. Rinse mouth after use. lisinopril (ZESTRIL, PRINIVIL) 10 mg tablet Take 1 tablet by mouth once daily. metFORMIN (GLUCOPHAGE) 1,000 mg tablet Take 1 tab by mouth in am and 1/2 tablet in evening. Magnesium 250 mg tab Take 500 mg by mouth once daily. blood sugar diagnostic (FREESTYLE LITE STRIPS) test strip Test blood sugar(s) 1 times daily. E11.9-type 2 diabetes mellitus, no insulin LORATADINE (CLARITIN ORAL) Take by mouth. Lancets (ACCU-CHEK MULTICLIX LANCET) lancets check blood sugar as directed every other day 250.00 Non Insulin dependent Prior Hypersomnia/Narcolepsy Medications (20 years) Some values may be hidden. Unless noted otherwise, only the newest values recorded on each date are displayed. Hypersomnia/Narcolepsy Medications No data to display. Prior RLS Medications (last 20 years) Some values may be hidden. Unless noted otherwise, only the newest values recorded on each date are displayed. RLS Medications belladonna-opium 16.2-60 mg 1 Suppository suppository (B and O 16-A) Dose: 1 Suppository ONCE FOR RECTAL USE. DO NOT exceed 4 doses per day. This medication is to be given intraoperatively. The circulating nurse (in the O.R.) will call pharmacy to obtain this medication directly from them. Starting date: 12/20/2020 Ending date: 12/20/2020 HYDROmorphone (PF) 0.5 mg injection (DILAUDID) Dose: 0.5 mg EVERY 10 MINUTES NEEDED May repeat every 10 minutes (MAX: 2 mg) If pain score remains greater than 4 after maximal dose achieved, contact PACU residential builder/LIP/staff for reassessment. Starting date: 12/20/2020 Ending date: 12/20/2020 (Discontinued) Prior Insomnia Medications (last 20 years) Some values may be hidden. Unless noted otherwise, only the newest values recorded on each date are displayed. Insomnia Medications amitriptyline (ELAVIL) 10 mg tablet Dose: 10 mg AT BEDTIME NEEDED Starting date: 07/01/2020 Ending date: 07/02/2020 (Discontinued) diazePAM (VALIUM) 5 mg tablet Dose: 5-10 mg DAILY Starting date: 08/18/2016 Ending date: 08/18/2016 (Discontinued) escitalopram oxalate (LEXAPRO) 10 mg tablet Dose: 10 mg DAILY Starting date: 01/05/2022 Ending date: 01/05/2022 (Discontinued) (more content not included)...[facility]02-24-2023 Instructions* Patient Instructions* Michael Rao MD - 08/21/2022 11:46 AM EST IMPRESSION: No diagnosis found. Restless Legs Syndrome Clinical Global Impression of Change ( CGI-C) Compared to the patient's condition at baseline, how much has the patient changed? Much improved PLAN: Because of mild daytime fatigue, snoring, and awakenings at similar times for the restroom, please consider discussing with your dentist an oral appliance for snoring/JUAN. This can help the above. You can also try to decrease the GBPN from 600 to 500 mg. Maybe this is leaving you sedated in the morning. Call me with any problems. Follow up with me in 6 months. Michael Rao MD [facility] History of Present illness Narrative* Michael Rao MD - 08/21/2022 11:25 AM EST Images from the original note were not included. [facility] Disorders Center Follow up/ Established patient visit Visit performed virtually, with the patient's permission. Date of last visit : Visit date not found Interval history : Here for follow up for RLS Awakenings for restroom, but legs are 90% better on 600 mg of gabapentin, which he takes close to bed time. He continues to have mild daytime fatigue. The noted awakenings are occurring at similar intervals through the night, and Mrs. Padgett say there is mild snoring. SLEEP HYGIENE QUESTIONS: Bedtime : 830 Asleep: 900 Wake up Time : 500 am Time it takes to fall sleep : 30 Activities in bed before falling asleep : None Number of times patient wakes up per night : 2 Reason (s) why patient wakes up during the night : restroom Estimated total sleep time ( in a 24 hour period of time) : 8 Naps : No PATIENT-ENTERED QUESTIONNAIRE SLEEP SCORES Sleep Questions 08/14/2022 Reason for visit: Restless Legs Syndrome Average hours slept in 24 hours: - Accidents or near accidents due to drowsy drivin Amelia Sleepiness Scale 06/04/2022 08/14/2022 Score 2 (No daytime sleepiness) 0 (No daytime sleepiness) PROMIS CAT Sleep Disturbance 07/22/2021 06/04/2022 08/14/2022 PROMIS Sleep Disturbance T-Score 58 (mild) 69 (moderate) 64 (moderate) Insomnia Severity Index 06/04/2022 08/14/2022 Score 22 8 Restless Leg Syndrome 06/04/2022 Score 25 PHQ-9 08/14/2021 06/04/2022 08/14/2022 Score 14 11 5 PROMIS Global Health - (T-Scores - the mean of general population = 50. Five points is a clinicallymeaningful difference.) 03/31/2022 05/15/2022 08/14/2022 Physical T-Score 39.8 42.3 50.8 Mental T-Score 31.3 38.8 53.3 PMH, PSH, SH: No change SLEEP RELATED ROS Review of Systems ALLERGIES Allergen Reactions Benadryl [Diphenhyd* Other: See Comments Paradoxical effect Flomax [Tamsulosin] Other: See Comments Problem with ejaculation Lipitor [Atorvastat* Mental Status Change Confusion Penicillins Rash Orqckjm-Vrb-Cib Red* Mental Status Change Thiazides Contraindication-Medical Surgical hypoNa Trazodone Mental Status Change Increased anxiety CURRENT MEDICATIONS: gabapentin (NEURONTIN) 400 mg capsule TAKE 1 CAPSULE BY MOUTH 1 HOUR BEFORE BEDTIME IN ADDITION TO 100 MG CAPSULE sildenafil (VIAGRA) 100 mg tablet Take 100 mg by mouth as needed. gabapentin (NEURONTIN) 100 mg capsule Take (3) capsules by mouth one hour before bedtime. Start as directed FLUoxetine (PROZAC) 40 mg capsule Take 1 capsule by mouth once daily. fluticasone (FLONASE) 50 mcg/actuation nasal spray Use 2 Sprays in each nostril once daily. Rinse mouth after use. lisinopril (ZESTRIL, PRINIVIL) 10 mg tablet Take 1 tablet by mouth once daily. metFORMIN (GLUCOPHAGE) 1,000 mg tablet Take 1 tab by mouth in am and 1/2 tablet in evening. Magnesium 250 mg tab Take 500 mg by mouth once daily. blood sugar diagnostic (FREESTYLE LITE STRIPS) test strip Test blood sugar(s) 1 times daily. E11.9-type 2 diabetes mellitus, no insulin LORATADINE (CLARITIN ORAL) Take by mouth. Lancets (ACCU-CHEK MULTICLIX LANCET) lancets check blood sugar as directed every other day 250.00 Non Insulin dependent Prior Hypersomnia/Narcolepsy Medications (20 years) Some values may be hidden. Unless noted otherwise, only the newest values recorded on each date aredisplayed. Hypersomnia/Narcolepsy Medications No data to display. Prior RLS Medications (last 20 years) Some values may be hidden. Unless noted otherwise, only the newest values recorded on each date aredisplayed. RLS Medications belladonna-opium 16.2-60 mg 1 Suppository suppository (B and O 16-A) Dose: 1 Suppository ONCE FOR RECTAL USE. DO NOT exceed 4 doses per day. This medication is to be given intraoperatively. The circulating nurse (in the O.R.) will call pharmacy to obtain this medication directly from them. Startingdate: 12/20/2020 Ending date: 12/20/2020 HYDROmorphone (PF) 0.5 mg injection (DILAUDID) Dose: 0.5 mg EVERY 10 MINUTES NEEDED May repeat every 10 minutes (MAX: 2 mg) If pain score remains greater than 4 after maximal dose achieved, contact PACU residential builder/LIP/staff for reassessment. Starting date: 12/20/2020 Ending date: 12/20/2020 (Discontinued) Prior Insomnia Medications (last 20 years) Some values may be hidden. Unless noted otherwise, only the newest values recorded on each date aredisplayed. Insomnia Medications amitriptyline (ELAVIL) 10 mg tablet Dose: 10 mg AT BEDTIME NEEDED Starting date: 07/01/2020 Endingdate: 07/02/2020 (Discontinued) diazePAM (VALIUM) 5 mg tablet Dose: 5-10 mg DAILY Starting date: 08/18/2016 Ending date: 08/18/2016 (Discontinued) escitalopram oxalate (LEXAPRO) 10 mg tablet Dose: 10 mg DAILY Starting date: 01/05/2022 Ending date:01/05/2022 (Discontinued) escitalopram oxalate (LEXAPRO) 10 mg tablet Dose: 10 mg DAILY Starting date: 01/05/2022 Ending date:01/12/2022 (Discontinued) FLUoxetine (PROZAC) 20 mg capsule Dose: 20 mg DAILY Starting date: 12/08/2021 Ending date: 01/05/2022(Discontinued) FLUoxetine (PROZAC) 20 mg capsule Dose: 20 mg DAILY Starting date: 03/03/2022 Ending date: 04/20/2022(Discontinued) FLUoxetine (PROZAC) 20 mg capsule Dose: Take one tablet daily in addtion to 40 mg tablet to equal 60 mg daily Starting date: 04/20/2022 Ending date: 06/01/2022 (Discontinued) FLUoxetine (PROZAC) 40 mg capsule Dose: 40 mg DAILY Starting date: 01/12/2022 Ending date: 01/29/2022 (Discontinued) FLUoxetine (PROZAC) 40 mg capsule Dose: 80 mg DAILY Starting date: 01/29/2022 Ending date: 03/03/2022 (Discontinued) FLUoxetine (PROZAC) 40 mg capsule Dose: 40 mg DAILY Starting date: 03/03/2022 Ending date: 06/01/2022 (Discontinued) FLUoxetine (PROZAC) 40 mg capsule Dose: 40 mg DAILY Starting date: 06/01/2022 Ending date: 08/30/2022 sertraline (ZOLOFT) 100 mg tablet Dose: 150 mg DAILY Taking 75mg daily. Starting date: 10/15/2021 Ending date: 12/08/2021 (Discontinued) sertraline (ZOLOFT) 50 mg tablet Dose: 50 mg DAILY (Patient taking differently: 50 mg DAILY as of 10/01/2021 11:11 AM) Starting date: 08/14/2021 Ending date: 10/01/2021 (Discontinued) sertraline (ZOLOFT) 50 mg tablet Dose: 75 mg DAILY Taking 75mg daily. Starting date: 10/01/2021 Ending date: 10/15/2021 (Discontinued) traZODone (DESYREL) 50 mg tablet Dose: 50 mg AT BEDTIME (Patient not taking as of 07/01/2020 1:18 PM)Starting date: 05/30/2020 Ending date: 07/01/2020 (Discontinued) Medication marked as long-term PHYSICAL EXAMINATION: Vital Signs: Deferred due to virtual visit via Zoom. General appearance: NAD Mental status: awake and alert Constitutional: Well groomed Skin: Dry and intact Neuro: Speech fluent IMPRESSION: Restless Legs Syndrome Clinical Global Impression of Change ( CGI-C) Compared to the patient's condition at baseline, how much has the patient changed? Much improved PLAN: Because of mild daytime fatigue, snoring, and awakenings at similar times for the restroom, please consider discussing with your dentist an oral appliance for snoring/JUAN. This can help the above. You can also try to decrease the GBPN from 600 to 500 mg. Maybe this is leaving you sedated in the morning. Call me with any problems. Follow up with me in 6 months. Michael Rao MD I spent 25 minutes in the visit, with more than 50% of the total [id number] time of the visit in counseling / coordination of care. documented in this encounterC[facility] NoteHNO ID: [id number] Author: Nicolasa Oden MD Service: ? Author Type: Physician Type: Progress Notes Filed: 08/07/2022 7:39 AM Note Text: HISTORY AND PHYSICAL Osman Padgett 1950 REFERRING PHYSICIAN: Self CHIEF COMPLAINT: Consult (Gall stone) HPI: The patient is a 72 year old male with a complaint of benign prostatic hypertrophy. The patient underwent CT urogram which found incidental findings of cholelithiasis-1 larger gallstone. The patient denies any biliary colic type symptoms. He notes no difficulties eating fatty foods. PAST MEDICAL HISTORY Diagnosis Date Allergic rhinitis due to other allergen Basal cell carcinoma Shoulder BPH (benign prostatic hyperplasia) CKD stage 2 due to type 2 diabetes mellitus (HCC) Dr. Balbuena Erectile dysfunction Genital herpes Moderate episode of recurrent major depressive disorder (HCC) Other and unspecified hyperlipidemia Plantar fasciitis RBBB Dr. Gerard Statin intolerance Type II or unspecified type diabetes mellitus without mention of complication, not stated as uncontrolled Varicose veins of both lower extremities s/p laser removal PAST SURGICAL HISTORY Procedure Laterality Date COLONOSCOPY FLX DX W/COLLJ SPEC WHEN PFRMD 01/19/2014 Colonoscopy ESOPHAGOGASTRODUODENOSCOPY TRANSORAL DIAGNOSTIC 04/19/2014 EGD PAST SURGICAL HISTORY OF ~1989 Sinus tumor (benign) R max. Visual impairment. PAST SURGICAL HISTORY OF Bilateral 2015 laser surgery for varicose veins. PAST SURGICAL HISTORY OF 2019 dental implants PAST SURGICAL HISTORY OF 2019 deviated septum repair PAST SURGICAL HISTORY OF 2016 urolift PAST SURGICAL HISTORY OF BCC excision from back TONSILLECTOMY HX childhood Current Outpatient Medications Medication Sig gabapentin (NEURONTIN) 400 mg capsule Take 1 capsule by mouth one hour before bedtime in addition to gabapentin 100 mg capsule sildenafil (VIAGRA) 100 mg tablet Take 100 mg by mouth as needed. FLUoxetine (PROZAC) 40 mg capsule Take 1 capsule by mouth once daily. fluticasone (FLONASE) 50 mcg/actuation nasal spray Use 2 Sprays in each nostril once daily. Rinse mouth after use. lisinopril (ZESTRIL, PRINIVIL) 10 mg tablet Take 1 tablet by mouth once daily. metFORMIN (GLUCOPHAGE) 1,000 mg tablet Take 1 tab by mouth in am and 1/2 tablet in evening. Magnesium 250 mg tab Take 500 mg by mouth once daily. blood sugar diagnostic (FREESTYLE LITE STRIPS) test strip Test blood sugar(s) 1 times daily. E11.9-type 2 diabetes mellitus, no insulin LORATADINE (CLARITIN ORAL) Take by mouth. Lancets (ACCU-CHEK MULTICLIX LANCET) lancets check blood sugar as directed every other day 250.00 Non Insulin dependent gabapentin (NEURONTIN) 100 mg capsule Take (3) capsules by mouth one hour before bedtime. Start as directed ezetimibe (ZETIA) 10 mg tablet Take 10 mg by mouth once daily. No current facility-administered medications for this visit. ALLERGIES: Benadryl [Diphenhydramine], Flomax [Tamsulosin], Lipitor [Atorvastatin], Penicillins, Yuxfmnc-Qda-Jon Reductase Inhibitors, Thiazides, and Trazodone PERSONAL HISTORY: Social History Tobacco Use Smoking status: Never Smokeless tobacco: Never Vaping Use Vaping Use: Never used Substance Use Topics Alcohol use: Not Currently Comment: occasionally Drug use: Yes Types: Marijuana FAMILY HISTORY: FAMILY HISTORY Problem Relation Age of Onset Breast Cancer Mother developed cancer in lymph nodes other (leukemia) Father REVIEW OF SYMPTOMS: The review of systems data was entered by the nurse and reviewed by tx Nursing Notes: Evelina So RN 08/06/2022 10:03 AM Signed REVIEW OF SYSTEMS: General: The patient NOTES fatigue, denies weight loss, denies weight gain, NOTES feeling hot, and denies feelings of cold. Eyes: The patient denies glaucoma, denies eye injury/surgery, wears glasses or contacts. Ear/Nose/Throat: The patient NOTES allergies, denies hayfever, denies ear infections, and denies bloody noses. Cardiovascular: The patient denies chest pain, denies heart disease, NOTES high blood pressure,denies cardiac stent, denies prior heart attack, denies irregular heart beat, NOTES high cholesterol, denies poor circulation, denies heart failure, other cardiac issues, denies claudication, denies cold feet, denies peripheral arterial stent. Respiratory: The patient denies tuberculosis, denies pneumonia, denies frequent cough, denies pulmonary embolism, denies shortness of breath, and denies coughing up blood. Gastrointestinal: The patient denies difficulty swallowing, denies acid reflux, denies ulcers, denies vomiting, denies jaundice/hepatitis, NOTES gallbladder problems, denies black or tarry stools, denies hemorrhoids, denies bleeding from rectum, denies diverticulitis, NOTES constipation, denies diarrhea, denies loss of stool control, and denies hernias. Kidney/Bladder: The patient denies kidney stones (more content not included)... [facility]01-25-2023 Miscellaneous Notes* Telephone Encounter - Clotilde Colón Pss - 07/22/2022 11:19 AM EST Patient contacted. Attempted to schedule follow up with Dr. Orantes. Patient declined at this time. States he will call if/when he needs any further care. Patient is also not interested in physical therapy right now. documented in this encounterC[facility]01-24-2023 Miscellaneous Notes* Telephone Encounter - Abril Vallecillo LPN - 07/21/2022 8:08 AM EST Phoned patient to advise that a 90 day supply with 1 refill was sent to [facility] on 06/01/22. He stated he would follow up with [facility]. documented in this encounterCinc[facility]01-19-2023 Miscellaneous Notes* Telephone Encounter - Dianna So RN - 07/16/2022 8:57 AM EST MyChart message sent documented in this encounterCinc[facility]12-27-2022 Miscellaneous Notes* Telephone Encounter - Dianna So RN - 06/23/2022 11:09 AM EST MyChart message sent documented in this encounterCincinnati [facility]12-09-2022 History of Present illness Narrative* Michael Rao MD - 06/05/2022 5:00 PM EST Images from the original note were not included. [facility] Follow up/ Established patient visit Visit performed virtually, with the patient's permission. Date of last visit : 03/20/2022 Obstructive Sleep Apnea - Home Sleep Apnea Test (HST) to evaluate for obstructive sleep apnea. Interval history : Here for follow up for Sleep Study. He continues to have trouble getting to sleep due to leg discomfort. He continues to have daytime fatigue. These are essentially unchanged from his initial visit. SLEEP HYGIENE QUESTIONS: Bedtime : 830 Wake up Time : 530 Time it takes to fall sleep : < 30 Activities in bed before falling asleep : None Number of times patient wakes up per night : 2-3 Reason (s) why patient wakes up during the night : restroom Estimated total sleep time ( in a 24 hour period of time) : 6-7 Naps : No PATIENT-ENTERED QUESTIONNAIRE SLEEP SCORES Sleep Questions 06/04/2022 Reason for visit: Difficulty falling or staying asleep or poor sleep quality Average hours slept in 24 hours: 7 Accidents or near accidents due to drowsy drivin Amelia Sleepiness Scale 06/04/2022 Score 2 (No daytime sleepiness) PROMIS CAT Sleep Disturbance 07/22/2021 06/04/2022 PROMIS Sleep Disturbance T-Score 58 (mild) 69 (moderate) Insomnia Severity Index 06/04/2022 Score 22 Restless Leg Syndrome 06/04/2022 Score 25 PHQ-9 07/22/2021 08/14/2021 06/04/2022 Score 12 14 11 PROMIS Global Health - (T-Scores - the mean of general population = 50. Five points is a clinicallymeaningful difference.) 11/10/2021 03/31/2022 05/15/2022 Physical T-Score 47.7 39.8 42.3 Mental T-Score 43.5 31.3 38.8 PMH, PSH, SH: No change SLEEP RELATED ROS Review of Systems ALLERGIES Allergen Reactions Benadryl [Diphenhyd* Other: See Comments Paradoxical effect Flomax [Tamsulosin] Other: See Comments Problem with ejaculation Lipitor [Atorvastat* Mental Status Change Confusion Penicillins Rash Mjpvvvi-Njd-Tcm Red* Mental Status Change Thiazides Contraindication-Medical Surgical hypoNa Trazodone Mental Status Change Increased anxiety CURRENT MEDICATIONS: FLUoxetine (PROZAC) 40 mg capsule^Take 1 capsule by mouth once daily.^Disp: 90 capsule^Rfl: 1 fluticasone (FLONASE) 50 mcg/actuation nasal spray^Use 2 Sprays in each nostril once daily. Rinse mouth after use.^Disp: 3 Each^Rfl: 3 ezetimibe (ZETIA) 10 mg tablet^Take 10 mg by mouth once daily.^Disp: ^Rfl: lisinopril (ZESTRIL, PRINIVIL) 10 mg tablet^Take 1 tablet by mouth once daily.^Disp: 90 tablet^Rfl:1 Tadalafil (CIALIS) 5 mg tablet^Take 1 tablet by mouth as needed.^Disp: ^Rfl: metFORMIN (GLUCOPHAGE) 1,000 mg tablet^Take 1 tab by mouth in am and 1/2 tablet in evening.^Disp: 135 tablet^Rfl: 3 Magnesium 250 mg tab^Take 500 mg by mouth once daily.^Disp: ^Rfl: blood sugar diagnostic (FREESTYLE LITE STRIPS) test strip^Test blood sugar(s) 1 times daily. E11.9-type 2 diabetes mellitus, no insulin^Disp: 100 Strip^Rfl: 3 LORATADINE (CLARITIN ORAL)^Take by mouth.^Disp: ^Rfl: Lancets (ACCU-CHEK MULTICLIX LANCET) lancets^check blood sugar as directed every other day 250.00 Non Insulin dependent^Disp: 90 Each^Rfl: 3 Prior Hypersomnia/Narcolepsy Medications (20 years) Some values may be hidden. Unless noted otherwise, only the newest values recorded on each date aredisplayed. Hypersomnia/Narcolepsy Medications No data to display. Prior RLS Medications (last 20 years) Some values may be hidden. Unless noted otherwise, only the newest values recorded on each date aredisplayed. RLS Medications belladonna-opium 16.2-60 mg 1 Suppository suppository (B and O 16-A) Dose: 1 Suppository ONCE FOR RECTAL USE. DO NOT exceed 4 doses per day. This medication is to be given intraoperatively. The circulating nurse (in the O.R.) will call pharmacy to obtain this medication directly from them. Startingdate: 12/20/2020 Ending date: 12/20/2020 HYDROmorphone (PF) 0.5 mg injection (DILAUDID) Dose: 0.5 mg EVERY 10 MINUTES NEEDED May repeat every 10 minutes (MAX: 2 mg) If pain score remains greater than 4 after maximal dose achieved, contact PACU residential builder/LIP/staff for reassessment. Starting date: 12/20/2020 Ending date: 12/20/2020 (Discontinued) Prior Insomnia Medications (last 20 years) Some values may be hidden. Unless noted otherwise, only the newest values recorded on each date aredisplayed. Insomnia Medications amitriptyline (ELAVIL) 10 mg tablet Dose: 10 mg AT BEDTIME NEEDED Starting date: 07/01/2020 Endingdate: 07/02/2020 (Discontinued) diazePAM (VALIUM) 5 mg tablet Dose: 5-10 mg DAILY Starting date: 08/18/2016 Ending date: 08/18/2016 (Discontinued) escitalopram oxalate (LEXAPRO) 10 mg tablet Dose: 10 mg DAILY Starting date: 01/05/2022 Ending date:01/05/2022 (Discontinued) escitalopram oxalate (LEXAPRO) 10 mg tablet Dose: 10 mg DAILY Starting date: 01/05/2022 Ending date:01/12/2022 (Discontinued) FLUoxetine (PROZAC) 20 mg capsule Dose: 20 mg DAILY Starting date: 12/08/2021 Ending date: 01/05/2022(Discontinued) FLUoxetine (PROZAC) 20 mg capsule Dose: 20 mg DAILY Starting date: 03/03/2022 Ending date: 04/20/2022(Discontinued) FLUoxetine (PROZAC) 20 mg capsule Dose: Take one tablet daily in addtion to 40 mg tablet to equal 60 mg daily Starting date: 04/20/2022 Ending date: 06/01/2022 (Discontinued) FLUoxetine (PROZAC) 40 mg capsule Dose: 40 mg DAILY Starting date: 01/12/2022 Ending date: 01/29/2022 (Discontinued) FLUoxetine (PROZAC) 40 mg capsule Dose: 80 mg DAILY Starting date: 01/29/2022 Ending date: 03/03/2022 (Discontinued) FLUoxetine (PROZAC) 40 mg capsule Dose: 40 mg DAILY Starting date: 03/03/2022 Ending date: 06/01/2022 (Discontinued) FLUoxetine (PROZAC) 40 mg capsule Dose: 40 mg DAILY Starting date: 06/01/2022 Ending date: 08/30/2022 sertraline (ZOLOFT) 100 mg tablet Dose: 150 mg DAILY Taking 75mg daily. Starting date: 10/15/2021 Ending date: 12/08/2021 (Discontinued) sertraline (ZOLOFT) 50 mg tablet Dose: 50 mg DAILY (Patient taking differently: 50 mg DAILY as of 10/01/2021 11:11 AM) Starting date: 08/14/2021 Ending date: 10/01/2021 (Discontinued) sertraline (ZOLOFT) 50 mg tablet Dose: 75 mg DAILY Taking 75mg daily. Starting date: 10/01/2021 Ending date: 10/15/2021 (Discontinued) traZODone (DESYREL) 50 mg tablet Dose: 50 mg AT BEDTIME (Patient not taking as of 07/01/2020 1:18 PM)Starting date: 05/30/2020 Ending date: 07/01/2020 (Discontinued) Medication marked as long-term PHYSICAL EXAMINATION: Virtual IMPRESSION: Restless Legs Syndrome Periodic Limb Movement Disorder No evidence of JUAN , hypoxemia, or hypoventilation Clinical Global Impression of Change ( CGI-C) Compared to the patient's condition at baseline, how much has the patient changed? No change PLAN: Start Gabapentin (3) 100 mg about one hour before bed. Start as directed. Michael Rao MD documented in this encounterCinc[facility]12-05-2022 History of Present illness Narrative* Evelina Shafer MD - 06/01/2022 11:24 AM EST Chief Complaint Patient presents with: Discussion: Medication HPI Osman Padgett is a 72 year old male who presents here today for Above Complaints. Patient complaining of persistent nausea which he thinks is related to Prozac. We lowered his dose from 60 mg to 40 mg on 05/15. Since then, his nausea has improved and depression symptoms are still well controlled. Denies SI/HI, vomiting, weight loss. Patient brought in labs today to review and had questions about his CT Urogram. Discussed gallstones not concerning unless he has inflammation/stranding around gallbladder. Will follow up with ordering physician. Past medical history, appointments, medications, allergies reviewed. Previous Medical History PAST MEDICAL HISTORY Diagnosis Date Allergic rhinitis due to other allergen Basal cell carcinoma Shoulder BPH (benign prostatic hyperplasia) CKD stage 2 due to type 2 diabetes mellitus (HCC) Dr. Balbuena Erectile dysfunction Genital herpes Moderate episode of recurrent major depressive disorder (HCC) Other and unspecified hyperlipidemia Plantar fasciitis RBBB Dr. Gerard Statin intolerance Type II or unspecified type diabetes mellitus without mention of complication, not stated as uncontrolled Varicose veins of both lower extremities s/p laser removal Previous Surgical History PAST SURGICAL HISTORY Procedure Laterality Date COLONOSCOPY FLX DX W/COLLJ SPEC WHEN PFRMD 01/19/2014 Colonoscopy ESOPHAGOGASTRODUODENOSCOPY TRANSORAL DIAGNOSTIC 04/19/2014 EGD PAST SURGICAL HISTORY OF ~1989 Sinus tumor (benign) R max. Visual impairment. PAST SURGICAL HISTORY OF Bilateral 2015 laser surgery for varicose veins. PAST SURGICAL HISTORY OF 2019 dental implants PAST SURGICAL HISTORY OF 2019 deviated septum repair PAST SURGICAL HISTORY OF 2016 urolift PAST SURGICAL HISTORY OF BCC excision from back TONSILLECTOMY HX childhood Family History FAMILY HISTORY Problem Relation Age of Onset Breast Cancer Mother developed cancer in lymph nodes other (leukemia) Father Patient Allergies ALLERGIES Allergen Reactions Benadryl [Diphenhyd* Other: See Comments Paradoxical effect Flomax [Tamsulosin] Other: See Comments Problem with ejaculation Lipitor [Atorvastat* Mental Status Change Confusion Penicillins Rash Lfxxkdb-Zmc-Usr Red* Mental Status Change Thiazides Contraindication-Medical Surgical hypoNa Trazodone Mental Status Change Increased anxiety Current Medications Current Outpatient Medications on File Prior to Visit Medication Sig fluticasone (FLONASE) 50 mcg/actuation nasal spray Use 2 Sprays in each nostril once daily. Rinse mouth after use. ezetimibe (ZETIA) 10 mg tablet Take 10 mg by mouth once daily. FLUoxetine (PROZAC) 20 mg capsule Take one tablet daily in addtion to 40 mg tablet to equal 60 mg daily lisinopril (ZESTRIL, PRINIVIL) 10 mg tablet Take 1 tablet by mouth once daily. Tadalafil (CIALIS) 5 mg tablet Take 1 tablet by mouth as needed. FLUoxetine (PROZAC) 40 mg capsule Take 1 capsule by mouth once daily. metFORMIN (GLUCOPHAGE) 1,000 mg tablet Take 1 tab by mouth in am and 1/2 tablet in evening. Magnesium 250 mg tab Take 500 mg by mouth once daily. blood sugar diagnostic (FREESTYLE LITE STRIPS) test strip Test blood sugar(s) 1 times daily. E11.9-type 2 diabetes mellitus, no insulin LORATADINE (CLARITIN ORAL) Take by mouth. Lancets (ACCU-CHEK MULTICLIX LANCET) lancets check blood sugar as directed every other day 250.00 Non Insulin dependent Current Facility-Administered Medications on File Prior to Visit Medication lidocaine urojet 2 % 11 mL topical gel (XYLOCAINE, GLYDO) Social History Social History Tobacco Use Smoking status: Never Smokeless tobacco: Never Vaping Use Vaping Use: Never used Substance Use Topics Alcohol use: Not Currently Comment: occasionally Drug use: Yes Types: Marijuana Review of Symptoms REVIEW OF SYSTEMS GENERAL: No weight loss, malaise or fevers RESPIRATORY: Negative for cough, hemoptysis, wheezing, COPD, dyspnea or shortness of breath CARDIOVASCULAR: Negative for chest pain, leg swelling, hypertension, CHF or palpitations GI: See HPI SKIN: Negative for lesions, rash, and itching EXAM: BP 116/72 Pulse 67 Resp 16 Wt 90.3 kg (199 lb) SpO2 100% BMI 27.77 kg/m General Appearance: Well appearing, alert, in no acute distress, well-hydrated, well nourished.. Skin: Skin color, texture, turgor normal, no suspicious rashes or lesions. Lungs: Lungs clear to auscultation. No wheezing, rhonchi, rales.. Heart: RRR without murmur, gallop, or rubs. No ectopy. Abdomen: Normal abdominal exam, Abdomen soft, non-tender. Bowel sounds normal. No masses, organomegaly. Extremities: No deformities, edema, skin discoloration, clubbing or cyanosis. Good capillary refill. . Health Maintenance List ADVANCE DIRECTIVE DISCUSSION Never done DILATED RETINAL EXAM due on 07/02/2022 DIABETIC FOOT EXAM due on 07/07/2022 HEMOGLOBIN/HEMATOCRIT due on 11/13/2022 HBA1C due on 11/22/2022 URINE ALBUMIN:CREATININE RATIO due on 01/05/2023 LDL CHOLESTEROL due on 01/27/2023 ANNUAL PCP TEAM CHRONIC DISEASE VISIT due on 05/01/2023 BP CONTROLLED (<130/80) due on 05/19/2023 SERUM CREATININE due on 05/28/2023 COLORECTAL CANCER SCREENING due on 01/20/2024 DTAP,TDAP,TD(3 - Td or Tdap) due on 12/18/2026 INFLUENZA Completed DEPRESSION ASSESSMENT Completed HEPATITIS C SCREENING Completed SHINGRIX VACCINE Completed COVID-19 VACCINE Completed PNEUMOCOCCAL: 65+ Completed Data reviewed Component Latest Ref Rng & Units 05/25/2022 05/28/2022 Protein, Total 6.3 - 8.0 g/dL 7.2 Albumin 3.9 - 4.9 g/dL 4.4 Calcium 8.5 - 10.2 mg/dL 9.8 9.5 Bilirubin, Total 0.2 - 1.3 mg/dL 0.4 Alkaline Phosphatase 38 - 113 U/L 49 AST 14 - 40 U/L 17 ALT 10 - 54 U/L 12 Glucose 74 - 99 mg/dL 112 (H) 111 (H) BUN 9 - 24 mg/dL 30 (H) 24 Creatinine 0.73 - 1.22 mg/dL 1.26 (H) 1.36 (H) Sodium 136 - 144 mmol/L 133 (L) 131 (L) Potassium 3.7 - 5.1 mmol/L 5.5 (H) 4.8 Chloride 97 - 105 mmol/L 98 95 (L) CO2 22 - 30 mmol/L 25 27 Anion Gap 9 - 18 mmol/L 10 9 eGFR >=60 mL/min/1.73m 61 56 (L) Hemoglobin A1C 4.3 - 5.6 % 6.1 (H) Estimated Average Glucose mg/dL 128 ASSESSMENT/PLAN: 1. Anxiety with depression - ICD9: 300.4, ICD10: F41.8 (primary diagnosis) Controlled on lower dose of Prozac. Nausea has improved. Continue current regimen. F/u in 3 months for routine check up. - FLUOXETINE 40 MG CAPSULE 2. Nausea - ICD9: 787.02, ICD10: R11.0 See above. Evelina Shafer MD documented in this encounterCincinnati [facility]12-[facility]22 Miscellaneous Notes* Telephone Encounter - Abril Vallecillo LPN - 05/28/2022 11:26 AM EST Phoned patient and reviewed provider's message with him. Patient voiced understanding and stated hewould get the labs drawn. * Telephone Encounter - Evelina Shafer MD - 05/28/2022 10:43 AM EST His sodium has been normal on his last 2 checks and his potassium has been normal for about a year.We need to follow up on this. If his potassium continues to elevate he could develop arrhythmia or cardiac arrest. I would not be ordering additional tests if they were not necessary. Needs to come in for repeat draw as recommended, or he could from this. * Telephone Encounter - Abril Vallecillo LPN - 05/28/2022 9:58 AM EST Phoned patient and advised him of results and PCP's recommendations. Patient stated I hate to waste medicare's money and everyone's time for something on my labs where I've been consistently high onmy potassium and low on my sodium. I know we've reviewed this before and he's told me it could be dehydration. Please tell him I appreciate his time and patience with me but I would rather not repeatthis if it's not really necessary. Advised patient I would update PCP with his response and would call him back if PCP advises otherwise. Patient voiced understanding. * Telephone Encounter - Evelina Shafer MD - 05/28/2022 9:42 AM EST Diabetes well controlled. Kidney function stable. Potassium level is high and sodium level is low which is possibly a lab error. Recommend recheckingblood work in the next 1-2 days to confirm. Continue current regimen and keep scheduled follow up. documented in this encounterCincinnati [facility]11-30-2022 History of Present illness Narrative* Yeimi Salazar RT(R) - 05/27/2022 8:40 AM EST Radiology Service Progress Note DATE OF SERVICE: May 27, 2022 TIME: 9:41 AM PATIENT IDENTITY VERIFICATION COMPLETED USING TWO (2) STANDARD IDENTIFIERS: Name and Date of confirmed by patient verbally. FALL SCREENING: Has the patient had 2 falls in the last year or 1 fall with injury or currently using an Ambulatory Assistive Device (Walker, Cane, Wheelchair, Crutches, etc.)? No PATIENT GENDER DATA: Male PATIENT RELEVANT IMPLANT DATA REVIEWED: Yes ALLERGIES: Reviewed and unchanged CONTRAST ALLERGY: NO. EXAM: CT -CONTRAST INDUCED NEPHROPATHY RISK FACTORS: Patient age > 60 years CREATININE: Creatinine Date Value Ref Range Status 05/25/2022 1.26 (H) 0.73 - 1.22 mg/dL Final 01/29/2022 1.29 (H) 0.73 - 1.22 mg/dL Final 01/05/2022 1.25 (H) 0.73 - 1.22 mg/dL Final Estimated Glomerular Filtration Rate Date Value Ref Range Status 05/25/2022 61 >=60 mL/min/1.73m Final Comment: Estimated Glomerular Filtration Rate (eGFR) is calculated using the 2020 CKD-EPI creatinine equation. This equation utilizes serum creatinine, sex, and age as parameters. The creatinine assay has traceable calibration to isotope dilution- mass spectrometry. Refer to KDIGO guidelines for clinical interpretation. In patients with unstable renal function, e.g. those with acute kidney injury, the eGFRmay not accurately reflect actual GFR. eGFR- Date Value Ref Range Status 07/08/2021 >60 Final P.O.C.T. RESULTS: POC done: Yes, See Lab Tab May 27, 2022 TREATMENT: N/A PERIPHERAL IV DATA: Ambulatory: A peripheral IV was started in the Left antecubital site with a Angio cath: 22 gauge. RADIOLOGY DEPARTMENT: CT; Exam(s) Completed: urogram w/o and with SIGNATURE: RT Juan(R) PATIENT NAME: Osman Padgett DATE: May 27, 2022 TIME: 9:41 AM documented in this encounterCincinnati [facility]11-25-2022 Miscellaneous Notes* Telephone Encounter - Kobi Gomez LPN - 05/22/2022 2:28 PM EST Pt calling in to schedule appointment for next week to discuss medication. No openings at a time that pt could come to. Appointment scheduled 06/01/22 per pt's request. Kobi Gomez LPN documented in this encounterCincinnati [facility]11-22-2022 Instructions* Patient Instructions* Hedy Nevarez APRN.SAGE - 05/19/2022 11:24 AM EST Update labs as ordered by primary care, please send me My Chart message so that I may review Low potassium diet Continue fluid restriction Avoid all non-steroidal anti-inflammatory (NSAID) pain medications. - ibuprofen (motrin, advil), naproxen (alleve), indomethacin (indocin), meloxicam (mobic), celecoxib (celebrex), and diclofenac (volatren) are common ones. Acetaminophen (tylenol) is safe for kidneys if taken as directed. Ask your pharmacist if you have questions. Follow-up in 6 months documented in this encounterCincinnati [facility]11-22-2022 History of Present illness Narrative* Hedy Nevarez APRN.REGULATORY SUBMISSIONS SPECIALIST - 05/19/2022 11:10 AM EST [facility] SERVICE DATE: 05/19/2022 SERVICE TIME: 11:10 AM HPI: Mr. Padgett is a 72 year old male pt of Dr. Balbuena who presents for CKD follow-up. His PMHx as listed below includes HTN, DM, Myalgias/cramps, dizziness, insomnia, memory impairment (preceded THC use) and possible neuropathy without vertigo, normal B12/CK/LFTs/Electrolytes/TSH, ?TIA in setting of CBD overdose s/p negative MRI brain (2020) and CTA head/neck (2020) and saw ENT/Neuro. GERD s/p negative EGD (2013). OA (neck/knees/back). DM/HLD (on diet; intolerant to statins). HSV.ED, BPH/LUTS s/p urolift and subsequent cysto with holmium laser enucleation of prostate and removal of malpositioned urolift stent (2020). RBBB with normal EF and mild valvular disease without PFO on echo (2020). Allergic rhinitis. BCC (skin CA). Plantar fasciitis. He has CKD Stage II/III, non-proteinuric likely in setting of HTN +/- DM (although without retinopathy/neuropathy) IMANI 12/02/21 BP controlled Had cystoscopy yesterday, planning for CT Urogram He is feeling well with no acute complaints. His home blood pressure has been 115-120/70-74. Denies dizziness, but has balance problems with assoc falls and working with PT. PAST MEDICAL HISTORY: PAST MEDICAL HISTORY Diagnosis Date Allergic rhinitis due to other allergen Basal cell carcinoma Shoulder BPH (benign prostatic hyperplasia) CKD stage 2 due to type 2 diabetes mellitus (HCC) Dr. Balbuena Erectile dysfunction Genital herpes Moderate episode of recurrent major depressive disorder (HCC) Other and unspecified hyperlipidemia Plantar fasciitis RBBB Dr. Gerard Statin intolerance Type II or unspecified type diabetes mellitus without mention of complication, not stated as uncontrolled Varicose veins of both lower extremities s/p laser removal PAST SURGICAL HISTORY: PAST SURGICAL HISTORY Procedure Laterality Date COLONOSCOPY FLX DX W/COLLJ SPEC WHEN PFRMD 01/19/2014 Colonoscopy ESOPHAGOGASTRODUODENOSCOPY TRANSORAL DIAGNOSTIC 04/19/2014 EGD PAST SURGICAL HISTORY OF ~1989 Sinus tumor (benign) R max. Visual impairment. PAST SURGICAL HISTORY OF Bilateral 2015 laser surgery for varicose veins. PAST SURGICAL HISTORY OF 2019 dental implants PAST SURGICAL HISTORY OF 2019 deviated septum repair PAST SURGICAL HISTORY OF 2016 urolift PAST SURGICAL HISTORY OF BCC excision from back TONSILLECTOMY HX childhood FAMILY HISTORY: FAMILY HISTORY Problem Relation Age of Onset Breast Cancer Mother developed cancer in lymph nodes other (leukemia) Father SOCIAL HISTORY: Social History Tobacco Use Smoking status: Never Smokeless tobacco: Never Vaping Use Vaping Use: Never used Substance Use Topics Alcohol use: Not Currently Comment: occasionally Drug use: Yes Types: Marijuana MEDICATIONS: fluticasone (FLONASE) 50 mcg/actuation nasal spray^Use 2 Sprays in each nostril once daily. Rinse mouth after use.^Disp: 3 Each^Rfl: 3 iv contrast (will be provided with radiology test)^CT Urogram WO/W Inject, intravenously, once for 1 dose.No IV access, insert saline lock prior to the beginning of sedation, infusion, injection of imaging exam. Discontinue saline lock post exam. If Pt. has a central line or IVAD, may access for administration according to line specific nursing protocol. Once exam is complete flush line and de-access according to line specific nursing protocol in the CT contrast administration guidelines link.^Disp: 1 Each^Rfl: 0 ezetimibe (ZETIA) 10 mg tablet^Take 10 mg by mouth once daily.^Disp: ^Rfl: FLUoxetine (PROZAC) 20 mg capsule^Take one tablet daily in addtion to 40 mg tablet to equal 60 mg daily^Disp: 90 capsule^Rfl: 1 lisinopril (ZESTRIL, PRINIVIL) 10 mg tablet^Take 1 tablet by mouth once daily.^Disp: 90 tablet^Rfl:1 Tadalafil (CIALIS) 5 mg tablet^Take 1 tablet by mouth as needed.^Disp: ^Rfl: metFORMIN (GLUCOPHAGE) 1,000 mg tablet^Take 1 tab by mouth in am and 1/2 tablet in evening.^Disp: 135 tablet^Rfl: 3 Magnesium 250 mg tab^Take 500 mg by mouth once daily.^Disp: ^Rfl: blood sugar diagnostic (FREESTYLE LITE STRIPS) test strip^Test blood sugar(s) 1 times daily. E11.9-type 2 diabetes mellitus, no insulin^Disp: 100 Strip^Rfl: 3 LORATADINE (CLARITIN ORAL)^Take by mouth.^Disp: ^Rfl: Lancets (ACCU-CHEK MULTICLIX LANCET) lancets^check blood sugar as directed every other day 250.00 Non Insulin dependent^Disp: 90 Each^Rfl: 3 FLUoxetine (PROZAC) 40 mg capsule^Take 1 capsule by mouth once daily.^Disp: 90 capsule^Rfl: 0 ALLERGIES: ALLERGIES Allergen Reactions Benadryl [Diphenhyd* Other: See Comments Paradoxical effect Flomax [Tamsulosin] Other: See Comments Problem with ejaculation Lipitor [Atorvastat* Mental Status Change Confusion Penicillins Rash Vcfnfjb-[id number] Red* Mental Status Change Thiazides Contraindication-Medical Surgical hypoNa Trazodone Mental Status Change Increased anxiety REVIEW OF SYSTEMS: Constitutional: No fever and No chills Cardiovascular: No chest pain or pressure, No dyspnea on exertion, No dizziness, No lightheadedness, and occ edema, resolves overnight Respiratory: No cough Gastrointestinal: No loss of appetite, No emesis, and (+) nausea - since starting Prozac Genitourinary: No frequency, No pink or red urine, No dysuria, and follows with and has cystoscopy yesterday Musculoskeletal: pain in multiple joints, denies NSAIDs Neurological: No headache Psychiatric: No complaints Endocrine: home BS 120-130, a1c 6.2 last check; occ hypoglycemia PHYSICAL EXAM: BP 115/74 (BP Site: Left Arm, BP Position: Sitting, BP Cuff Size: Large Adult) Pulse 67 SpO2 99% 05/19/22 1109 BP: 115/74 BP Site: Left Arm BP Position: Sitting BP Cuff Size: Large Adult Pulse: 67 SpO2: 99% Constitutional: No acute distress, Responsive, Normal habitus, and Well-nourished Eyes: Noscleral icterus Neck:No jugular venous distension Cardiovascular:No peripheral edema Regular rate and ryhthm, normal S1 and S2, no murmurs, rubs, or gallops Respiratory: Normal respiratory effort. Lungs clear bilaterally. Abdomen: soft, NT, ND, bowel sounds Musculoskeletal: ambulates without assistance Psychiatric: Alert and oriented x self, place, time, and setting Normal mood/affect DATA: Diagnostic tests reviewed for today's visit: CKD LAB FLOWSHEET Latest Ref Rng & Units 11/13/2021 12/02/2021 01/05/2022 01/27/2022 01/29/2022 EGFR, All Other >=60 mL/min/1.73m 63 62 59 (L) Creatinine 0.73 - 1.22 mg/dL 1.24 (H) 1.25 (H) 1.29 (H) BUN 9 - 24 mg/dL 23 25 (H) 26 (H) Sodium 136 - 144 mmol/L 132 (L) 136 138 Potassium 3.7 - 5.1 mmol/L 5.1 5.0 4.8 Chloride 97 - 105 mmol/L 98 100 100 CO2 22 - 30 mmol/L 24 25 22 Glucose 74 - 99 mg/dL 115 (H) 108 (H) 164 (H) Calcium 8.5 - 10.2 mg/dL 9.8 9.8 9.9 Albumin 3.9 - 4.9 g/dL ALT 10 - 54 U/L WBC 3.70 - 11.00 k/uL 7.71 HGB 13.0 - 17.0 g/dL 12.3 (L) PLT 150 - 400 k/uL 307 Vitamin D25 Hydroxy 31.0 - 80.0 ng/mL Protein Urine Random 0 - 20 mg/dL 8 Creatinine Urine Random 20.0 - 300.0 mg/dL 79.0 148.5 Protein/Creatinine Ratio <0.2 0.1 Cholesterol, Total <200 mg/dL 180 Triglycerides <150 mg/dL 122 HDL Cholesterol >39 mg/dL 47 LDL Cholesterol <100 mg/dL 109 (H) ASSESSMENT: CKD Stage IIIa, non-proteinuric likely in setting of HTN +/- DM (although without retinopathy/neuropathy); last Scr. 1.24 and previous cystatin C 1.36, eGFR 55 - on external scanned labs -on low dose ACEi -lytes: Na, 129; K 5.1 -volume status: euvolemic on exam -kidney sizes: acceptable on 02/2021 BP: controlled Anemia: Hgb 14.1 Metabolic acidosis: none Metabolic bone: Vitamin D/PTH at goal CV/Lipids: LDL 76, not requiring statin DM: last a1c 6.5 PLAN: Update labs as ordered by PCP to follow-up on hyponatremia Continue fluid restriction Low potassium diet Avoid NSAIDs Discussed importance of blood pressure and glycemic control Annual spot urine ACR, consideration for SGLT2i which was discussed today RTC 6 months , okay for virtual visit SIGNATURE: Hedy Nevarez APRN.CNP, Nephrology Staff PATIENT NAME: Osman Padgett DATE: May 19, 2022 TIME: 11:10 AM OFFICE NUMBER: [phone] CC: REFERRING PROVIDER: Hedy Nevarez APRN.CNP PRIMARY CARE PHYSICIAN: Evelina Shafer MD documented in this encounterCincinnati [facility]11-22-2022 Evaluation note* Diagnosis Hypertensive kidney disease with stage 3a chronic kidney disease (HCC)- Primary Hyponatremia Hyposmolality and/or hyponatremia documented in this encounter [facility]11[facility]21-[facility]22 Procedure note* Barbara Orantes MD - 05/18/2022 12:16 PM EST CYSTOSCOPY PROCEDURE Epic notes reviewed: See clinic notes Interval history: Cysto added on today for new blood in urine Informed consent obtained Operation: Cystoscopy Anatomic Site: Bladder, Laterality: N/A Urethra, Laterality: Not applicable Prostate, Laterality: N/A Approach: endoscopic Device: None Qualifier: None TECHNIQUE: The procedure was fully explained to the patient, risks were reviewed. The patient was placed in the supine position. The genitalia were prepped with betadine, and the urethra was anesthetized with viscous 2% lidocaine. The flexible cystoscope was introduced into the urethra and advanced under direct vision with findings as outlined below. At the conclusion of the procedure, the cystoscope was withdrawn. Antibiotics: bactrim Anesthetics given: 10 cc 2% Lidocaine-Urethral and Administered by nurse - see Pre-Procedure Nurse's Notes. Operative Findings Urethra: Normal - no obvious stricture seen Prostate: s/p holep, well healed fossa with minimal regrowth, no urolift seen, no BNC, no intravesical protrusion Bladder: no stones, no tumors, no lesions, trabeculated, both ureteral orifice seen Radiologic Studies Urogram: N/A Complications: None Recommendations: Discussed findings with patient Comments: See clinic notes Preprocedure diagnosis: BPH/LUTS, hematuria Postprocedure diagnosis: same as above Post Procedure Evaluation Condition Post Procedure: satisfactory documented in this encounterCincinnati [facility]11-21-2022 Nurse Note* Ana María Pelayo LPN - 05/18/2022 11:40 AM EST PRE CYSTO PROCEDURE ID Verified by: Ana María Pelayo LPN Procedure Indication:Cystoscopy Latex Allergy: No Betadine Allergy: No Lidocaine allergy: No Allergies reviewed and updated. Pre-Procedure Vital Signs: Blood pressure 135/72, pulse 71. Heart valve replacement:No Joint replacement: No Pre-Procedure Antibiotics: Bactrim 80mg-400mg po, given now @ 11:43am , by Ana María Pelayo LPN Patient Prep: Betadine Scrub to perineum and placement of Sterile Drape. Anesthetic Given: 10 cc 2% Lidocaine adalid Pelayo LPN * Flora Sheth - 05/18/2022 11:07 AM EST Pvr 0 documented in this encounterCincinnati [facility]11-21-2022 History of Present illness Narrative* Barbara Orantes MD - 05/18/2022 11:00 AM EST [facility] Urology Clinic Follow Up Attending: Barbara Orantes MD Diagnosis: BPH/LUTS, ED, stricture, GH Procedures: Holep From [facility]ector Chief complaint/Identification: Osman Padgett is a 72 year old male patient with CKD, DM, HLD,ED, herpes, RBBB here for management of BPH. He is s/p urolift 2019 but did not have any relief of symptoms. Cystoscopy demonstrated a trilobar prostate, though with minimal median lobe but a high bladder neck. There was an exposed UroLift implant inside the bladder just below the left bladder neck. RYAN was benign. The prostate measured between 50 to 60 g on TRUS. Pt underwent Holep on 12/20/20 Intraop findings Small bilobar prostate with high bladder neck and significant anterior tissue Multinodular BPH 3 urolift implants seen - 1 in the right lateral lobe and 1 in the left lateral lobe, both fairly distal and posterior. One implant under the left bladder neck protruding into the bladder. This was not engaging and prostate tissue and was 1-2 cm inferior to the bladder neck. This malpositioned one was removed entirely. The mucosal end of the other two implants were removed. Thin capsule bilaterally with small amount of fat visible, likely at sites of urolift implants Soft wide caliber bulbar stricture passed with gentle scope dilation Very capacious bladder Pathology: Prostate, transurethral resection - Benign prostatic hyperplasia, glandular and stromal type. Seen 02/10/21 - Good flow, no leak, no GH, path neg. On viagra for ED - not working well Plan - PSA, kegels, BMP Seen 11/11/2021 Plan- PSA, testosterone, cont tadalafil for now, referral to ED team, fu 1 year with uroflow Interval Hx: Within the last 1-2 months, has noticed urinary hesitancy with dysuria, which resolves when urine starts flowing. 3 weeks ago, noted some blood in urine in underwear, lasted 2-3 days. Nocturia 2-3x/night, increased from post-op No spraying, good stream No hx of smoking Notes that he has been limiting fluids per instructions from nephrology Though he has been to the ER a couple of times for dehydration Uroflow Qmax: 19.4 ml/s VV 171 mL PVR 0 mL Lino shaped curve Has cialis and viagra if needed Disease specificity: Diagnosis: hematuria Acuity: acute Severity: mild Anatomic Site: unknown Underlying Condition/Causal Agent: unknown Associated Conditions/Manifestations: N/A Diagnosis: BPH/LUTS Acuity: Chronic Severity: Severe Anatomic Site: Prostate, Laterality: N/A Underlying Condition/Causal Agent: Primary Associated Conditions/Manifestations: N/A Diagnosis: ED Acuity: Chronic Severity:moderate Anatomic Site:penis, Laterality: N/A Underlying Condition/Causal Agent: Primary Associated Conditions/Manifestations: N/A The patient denies any new medical problems, surgeries, medications or changes to his social and family history since his last visit other than that noted above. Review of Systems: Review of Systems: PAIN ASSESSMENT: Negative for pain, history of chronic pain, or current treatment for a chronic pain condition. GENERAL: No recent illnesses, normal energy levels, no unexplained weight change : See HPI Exam: There were no vitals taken for this visit. General Appearance: Pleasant, well appearing, no acute distress : No CVAT RECTAL EXAM:Deferred Neuro: Alert and oriented, normal gait Psych: Normal affect and mentation Skin: Warm, dry, intact Musculoskeletal: Moving all extremities Labs: Glucose (mg/dL) Date Value 01/29/2022 164 07/08/2021 102 Potassium (mmol/L) Date Value 01/29/2022 4.8 07/08/2021 4.9 Sodium (mmol/L) Date Value 01/29/2022 138 07/08/2021 133 Chloride (mmol/L) Date Value 01/29/2022 100 07/08/2021 99 CO2 (mmol/L) Date Value 01/29/2022 22 07/08/2021 25 Creatinine (mg/dL) Date Value 01/29/2022 1.29 07/08/2021 1.19 BUN (mg/dL) Date Value 01/29/2022 26 07/08/2021 23 Anion Gap (mmol/L) Date Value 01/29/2022 16 07/08/2021 9 Calcium (mg/dL) Date Value 07/08/2021 10.1 Calcium, Total (mg/dL) Date Value 01/29/2022 9.9 Lab Results Component Value Date PSA 0.92 11/13/2021 PSA 1.07 02/12/2021 PSA 0.86 07/01/2020 PSA 2.12 06/26/2019 PSA 1.33 10/10/2014 Assessment/Recommendation: (N40.1, N13.8) BPH with obstruction/lower urinary tract symptoms (primary encounter diagnosis) (R31.0) Gross hematuria (N52.9) Erectile dysfunction, unspecified erectile dysfunction type 72 year old male with BPH/LUTS s/p failed urolift. Now s/p holep and removal of urolift implants. Good flow, emptying well, no leak. Now with some new dysuria/hesitancy as well as blood in urine. Recent UCX neg, UA neg. Path neg. Postop PSA is fine. RYAN benign. -cysto today given new symptoms and blood, has known bulbar stricture -CTU Regarding ED, has cialis and Viagra, viagra works ok. Of note, is on zoloft. No interest in furthertreatment at this time. -cont cialis PRN -VV in 3-4 weeks to review above -Uroflow in 1 year Luigi Suresh MD Medical Decision Making: Problems: Moderate: New problem with uncertain prognosis and 2+ stable chronic illnesses Data: Unique test result(s) reviewed: 2 Unique test(s) ordered: 2 Risk: Moderate: Drug management Medical Decision Making Level: 4 - Moderate The impression as well as the plan, as outlined, were extensively discussed with the patient who voiced understanding. All questions were answered to their stated satisfaction. My final recommendations will be communicated back to the requesting physician by way of shared Medical record or letter to requesting physician via [place] mail. By signing my name below, I, Zena Cantor, attest that this documentation has been prepared under thedirection and in the presence of Dr. Orantes Electronically signed, Nicole Perea I agree with the Chief Complaint, ROS, and Past Histories independently gathered by the clinical learning support resource room teacher and the remaining scribed note accurately describes my personal service to the patient. Barbara Orantes documented in this encounterCincinnati [facility]11-21-2022 Miscellaneous Notes* Telephone Encounter - Velvet Plaza APRN.SAGE - 05/18/2022 8:20 AM EST Filled for 90 days at a time. * Telephone Encounter - Rosetta Rahman LPN - 05/18/2022 8:13 AM EST Patient phones requesting refills as follows: Requested Prescriptions Pending Prescriptions Disp Refills fluticasone (FLONASE) 50 mcg/actuation nasal spray 1 Each 11 Sig: Use 2 Sprays in each nostril once daily. Rinse mouth after use. IMANI 05/01/22 NOV 07/08/22 Please review and advise. Rosetta Rahman LPN documented in this encounterCincinnati [facility]11-04-2022 History of Present illness Narrative* Evelina Shafer MD - 05/01/2022 9:40 AM EDT Chief Complaint Patient presents with: Follow Up: 3 month HPI Osman Padgett is a 72 year old male who presents here today for 3 month follow. DIABETES MELLITUS: Mr. Padgett was last seen 3 months ago. Since our last visit he denies excessive thirst or increased frequency of urination, numbness, tingling or pain in extremities, new or unusual visual symptoms, and low sugar/hypoglycemic reactions. Follows a diabetic diet most of the time.He is compliant with medication(s) and is tolerating med(s) without any side effects. He reports checking his glucose on a weekly schedule with sugars in the <150 range on random checks. Patient'slast HgA1C was Hemoglobin A1C (%) Date Value 01/05/2022 6.2 07/08/2021 6.5 12/31/2020 6.2 ) Last Ophthalmology exam was within the past 12 months Last Podiatry exam was within the past 12 months Noted that his sodium level was low 129 at [facility] on 03/[address] Gerard's office they recommended Liquid IV Hydration multiplier in his water once per day. Contains 500 mg of sodium. Has been taking for the last 2 days. Discussed our levels here have been normal. BP well controlled on current regimen. PHQ-2 / Depression screen He in the past two weeks denies having felt down, depressed, hopeless or with little interest or pleasure in doing things. Has had 3 falls while working in the yard. Once hit his head on the concrete about 2-3 weeks ago without LOC. Other times fell on to right shoulder/arm with swelling over his wrist which has resolved. Denies headache, vision changes, slurred speech, vision changes, joint pain, weakness. Has cane athome, but has not felt unsteady walking. Past medical history, appointments, medications, allergies reviewed. Previous Medical History PAST MEDICAL HISTORY Diagnosis Date Allergic rhinitis due to other allergen Basal cell carcinoma Shoulder BPH (benign prostatic hyperplasia) CKD stage 2 due to type 2 diabetes mellitus (HCC) Dr. Balbuena Erectile dysfunction Genital herpes Moderate episode of recurrent major depressive disorder (HCC) Other and unspecified hyperlipidemia Plantar fasciitis RBBB Dr. Gerard Statin intolerance Type II or unspecified type diabetes mellitus without mention of complication, not stated as uncontrolled Varicose veins of both lower extremities s/p laser removal Previous Surgical History PAST SURGICAL HISTORY Procedure Laterality Date COLONOSCOPY FLX DX W/COLLJ SPEC WHEN PFRMD 01/19/2014 Colonoscopy ESOPHAGOGASTRODUODENOSCOPY TRANSORAL DIAGNOSTIC 04/19/2014 EGD PAST SURGICAL HISTORY OF ~1989 Sinus tumor (benign) R max. Visual impairment. PAST SURGICAL HISTORY OF Bilateral 2015 laser surgery for varicose veins. PAST SURGICAL HISTORY OF 2019 dental implants PAST SURGICAL HISTORY OF 2019 deviated septum repair PAST SURGICAL HISTORY OF 2016 urolift PAST SURGICAL HISTORY OF BCC excision from back TONSILLECTOMY HX childhood Family History FAMILY HISTORY Problem Relation Age of Onset Breast Cancer Mother developed cancer in lymph nodes other (leukemia) Father Patient Allergies ALLERGIES Allergen Reactions Benadryl [Diphenhyd* Other: See Comments Paradoxical effect Flomax [Tamsulosin] Other: See Comments Problem with ejaculation Lipitor [Atorvastat* Mental Status Change Confusion Penicillins Rash Thiazides Contraindication-Medical Surgical hypoNa Trazodone Mental Status Change Increased anxiety Current Medications Current Outpatient Medications on File Prior to Visit Medication Sig ezetimibe (ZETIA) 10 mg tablet Take 10 mg by mouth once daily. FLUoxetine (PROZAC) 20 mg capsule Take one tablet daily in addtion to 40 mg tablet to equal 60 mg daily lisinopril (ZESTRIL, PRINIVIL) 10 mg tablet Take 1 tablet by mouth once daily. Tadalafil (CIALIS) 5 mg tablet Take 1 tablet by mouth as needed. FLUoxetine (PROZAC) 40 mg capsule Take 1 capsule by mouth once daily. metFORMIN (GLUCOPHAGE) 1,000 mg tablet Take 1 tab by mouth in am and 1/2 tablet in evening. Magnesium 250 mg tab Take 500 mg by mouth once daily. fluticasone (FLONASE) 50 mcg/actuation nasal spray Use 2 Sprays in each nostril once daily. Rinse mouth after use. blood sugar diagnostic (FREESTYLE LITE STRIPS) test strip Test blood sugar(s) 1 times daily. E11.9-type 2 diabetes mellitus, no insulin LORATADINE (CLARITIN ORAL) Take by mouth. Lancets (ACCU-CHEK MULTICLIX LANCET) lancets check blood sugar as directed every other day 250.00 Non Insulin dependent No current facility-administered medications on file prior to visit. Social History Social History Tobacco Use Smoking status: Never Smokeless tobacco: Never Vaping Use Vaping Use: Never used Substance Use Topics Alcohol use: Not Currently Comment: occasionally Drug use: Yes Types: Marijuana Review of Symptoms REVIEW OF SYSTEMS GENERAL: No weight loss, malaise or fevers RESPIRATORY: Negative for cough, hemoptysis, wheezing, COPD, dyspnea or shortness of breath CARDIOVASCULAR: Negative for chest pain, leg swelling, hypertension, CHF or palpitations GI: No nausea, vomiting, or diarrhea SKIN: Negative for lesions, rash, and itching EXAM: BP 110/68 Pulse 73 Resp 16 Wt 89.4 kg (197 lb 3.2 oz) SpO2 99% BMI 27.52 kg/m General Appearance: Well appearing, alert, in no acute distress, well-hydrated, well nourished.. Skin: Skin color, texture, turgor normal, no suspicious rashes or lesions. Head: Normocephalic, no masses, lesions, tenderness or abnormalities. Lungs: Lungs clear to auscultation. No wheezing, rhonchi, rales.. Heart: RRR without murmur, gallop, or rubs. No ectopy. Abdomen: Normal abdominal exam, Abdomen soft, non-tender. Bowel sounds normal. No masses, organomegaly. Extremities: No deformities, edema, skin discoloration, clubbing or cyanosis. Good capillary refill. . Musculoskeletal: No joint swelling, deformity, or tenderness. Neurologic: Negative findings: speech normal, mental status intact, cranial nerves 2-12 intact. Health Maintenance List ADVANCE DIRECTIVE DISCUSSION Never done DEPRESSION ASSESSMENT Never done COVID-19 VACCINE(5 - Booster for Moderna series) due on 11/20/2021 DILATED RETINAL EXAM due on 07/02/2022 DIABETIC FOOT EXAM due on 07/07/2022 HBA1C due on 07/08/2022 BP CONTROLLED (<130/80) due on 10/01/2022 HEMOGLOBIN/HEMATOCRIT due on 11/13/2022 URINE ALBUMIN:CREATININE RATIO due on 01/05/2023 LDL CHOLESTEROL due on 01/27/2023 SERUM CREATININE due on 01/29/2023 ANNUAL PCP TEAM CHRONIC DISEASE VISIT due on 04/17/2023 COLORECTAL CANCER SCREENING due on 01/20/2024 DTAP,TDAP,TD(3 - Td or Tdap) due on 12/18/2026 INFLUENZA Completed HEPATITIS C SCREENING Completed SHINGRIX VACCINE Completed PNEUMOCOCCAL: 65+ Completed Data reviewed Component Latest Ref Rng & Units 01/05/2022 01/27/2022 04/02/2022 Glucose 74 - 99 mg/dL 108 (H) BUN 9 - 24 mg/dL 25 (H) Creatinine 0.73 - 1.22 mg/dL 1.25 (H) Sodium 136 - 144 mmol/L 136 Potassium 3.7 - 5.1 mmol/L 5.0 Chloride 97 - 105 mmol/L 100 CO2 22 - 30 mmol/L 25 Anion Gap 9 - 18 mmol/L 11 Calcium 8.5 - 10.2 mg/dL 9.8 eGFR >=60 mL/min/1.73m 62 Cholesterol, Total <200 mg/dL 180 Triglyceride <150 mg/dL 122 HDL Cholesterol >39 mg/dL 47 Non HDL Cholesterol <130 mg/dL 133 (H) Fasting Time hrs 12 VLDL Cholesterol <30 mg/dL 24 TC:HDL Ratio <5.10 3.83 LDL Cholesterol <100 mg/dL 109 (H) LDL:HDL Ratio <2.54 2.32 Creatinine, Ur Random (UCRR) 20.0 - 300.0 mg/dL 148.5 Albumin, Urine Random mg/L <12.0 Albumin/Creat Ratio <30 mg/g <8 Hemoglobin A1C 4.3 - 5.6 % 6.2 (H) Estimated Average Glucose mg/dL 131 TSH 0.270 - 4.200 mIU/L 0.214 (L) Free T4 0.9 - 1.7 ng/dL 1.2 T3 79 - 165 ng/dL 103 Microsomal Antibody <5.6 IU/mL <1.0 ASSESSMENT/PLAN: 1. Type 2 diabetes mellitus without complication, without long-term current use of insulin (HCC) - ICD9: 250.00, ICD10: E11.9 (primary diagnosis) Controlled. - Continue current medications - Blood glucose monitoring on a weekly schedule - Encouraged regular aerobic exercise and weight loss - Follow up in 6 months, sooner should any other issues arise. - Discussed diabetic education issues of custodial diabetic complications, hypoglycemic symptoms, hyperglycemic symptoms, diet, medications- side effects and need for compliance, and importance of exercise with patient. - COMP METABOLIC PANEL - HGB A1C 2. CKD stage 2 due to type 2 diabetes mellitus (HCC) - ICD9: 250.40, 585.2, ICD10: E11.22, N18.2 Recheck CMP. Discussed low sodium diet, avoidance of NSAIDs. 3. Hyponatremia - ICD9: 276.1, ICD10: E87.1 Recent low level. Normal on our labs in the last 3-4 months. Will recheck to rule out lab error. Hold sodium supplement. - COMP METABOLIC PANEL 4. Hyperlipidemia, unspecified hyperlipidemia type - ICD9: 272.4, ICD10: E78.5 - good control - Continue current medication. - Encouraged following a low fat, low cholesterol diet. - Discussed the benefits of regular aerobic exercise and weight loss. 5. Statin intolerance - ICD9: 995.27, ICD10: Z78.9 Continue Zetia. 6. Primary hypertension - ICD9: 401.9, ICD10: I10 - good control - Continue current medication(s) - Encouraged dietary sodium restriction/DASH diet - Recommended regular aerobic exercise. - Reviewed risks of HTN and principles of treatment - Goal of BP <140/90 7. At high risk for falls - ICD9: V15.88, ICD10: Z91.81 No evidence of musculoskeletal injury. 2-3 weeks out doubt brain hemorrhage. Discussed he needs to let others do his yardwork and will have him follow up with PT for balance and strength training. - CONSULT TO PHYSICAL THERAPY 8. Need for COVID-19 vaccine - ICD9: V04.89, ICD10: Z23 - [employer] COVID-19 BIVALENT BOOSTER VACCINE, AGE 12+ YR Evelina Shafer MD documented in this encounterC[facility] Miscellaneous Notes* Telephone Encounter - Sandra Montes MA - 04/20/2022 9:34 AM EDT RX INSTRUCTIONS: Patient aware RX will be sent to pharmacy. No need to notify patient. Pt. takes 20 MG in combo with 40 MG=60 MG. Verified with pharmacy: pt. has active script for 40 MG-90 tablets on hold at pharmacy. Last OV: 04/17/22 with PCP Last refill: 03/03/22 With 90 and 0 refills Follow up: 05/01/22-3 month f/u with PCP Sandra Montes MA documented in this encounterCincinnati [facility]10-21-2022 History of Present illness Narrative* Evelina Shafer MD - 04/17/2022 10:21 AM EDT Chief Complaint Patient presents with: Blood Pressure: Reports 144/87 this am and has BP cuff from home with him. HPI Osman Padgett is a 72 year old male who presents here today for Above Complaints. Patient has been taking BP medication as prescribed without hypertensive symptoms. On his home cuff, has been getting readings in the 140-160/80's. Has not been sitting with arm at level of his heartfor 5 minutes when checking it. Plans on getting new cuff. Still complaining of some confusion since his infection with COVID. Discussed this may be related to brain fog and can last for weeks to months. thinks this is gradually improving. Other symptoms have resolved. Nausea improved with miralax and resolution of his constipation. Past medical history, appointments, medications, allergies reviewed. Previous Medical History PAST MEDICAL HISTORY Diagnosis Date Allergic rhinitis due to other allergen Basal cell carcinoma Shoulder BPH (benign prostatic hyperplasia) CKD stage 2 due to type 2 diabetes mellitus (HCC) Dr. Balbuena Erectile dysfunction Genital herpes Moderate episode of recurrent major depressive disorder (HCC) Other and unspecified hyperlipidemia Plantar fasciitis RBBB Dr. Gerard Statin intolerance Type II or unspecified type diabetes mellitus without mention of complication, not stated as uncontrolled Varicose veins of both lower extremities s/p laser removal Previous Surgical History PAST SURGICAL HISTORY Procedure Laterality Date COLONOSCOPY FLX DX W/COLLJ SPEC WHEN PFRMD 01/19/2014 Colonoscopy ESOPHAGOGASTRODUODENOSCOPY TRANSORAL DIAGNOSTIC 04/19/2014 EGD PAST SURGICAL HISTORY OF ~1989 Sinus tumor (benign) R max. Visual impairment. PAST SURGICAL HISTORY OF Bilateral 2015 laser surgery for varicose veins. PAST SURGICAL HISTORY OF 2019 dental implants PAST SURGICAL HISTORY OF 2019 deviated septum repair PAST SURGICAL HISTORY OF 2016 urolift PAST SURGICAL HISTORY OF BCC excision from back TONSILLECTOMY HX childhood Family History FAMILY HISTORY Problem Relation Age of Onset Breast Cancer Mother developed cancer in lymph nodes other (leukemia) Father Patient Allergies ALLERGIES Allergen Reactions Benadryl [Diphenhyd* Other: See Comments Paradoxical effect Flomax [Tamsulosin] Other: See Comments Problem with ejaculation Lipitor [Atorvastat* Mental Status Change Confusion Penicillins Rash Thiazides Contraindication-Medical Surgical hypoNa Trazodone Mental Status Change Increased anxiety Current Medications Current Outpatient Medications on File Prior to Visit Medication Sig lisinopril (ZESTRIL, PRINIVIL) 10 mg tablet Take 1 tablet by mouth once daily. Tadalafil (CIALIS) 5 mg tablet Take 1 tablet by mouth as needed. FLUoxetine (PROZAC) 40 mg capsule Take 1 capsule by mouth once daily. FLUoxetine (PROZAC) 20 mg capsule Take 1 capsule by mouth once daily. metFORMIN (GLUCOPHAGE) 1,000 mg tablet Take 1 tab by mouth in am and 1/2 tablet in evening. Magnesium 250 mg tab Take 500 mg by mouth once daily. fluticasone (FLONASE) 50 mcg/actuation nasal spray Use 2 Sprays in each nostril once daily. Rinse mouth after use. blood sugar diagnostic (FREESTYLE LITE STRIPS) test strip Test blood sugar(s) 1 times daily. E11.9-type 2 diabetes mellitus, no insulin LORATADINE (CLARITIN ORAL) Take by mouth. Lancets (ACCU-CHEK MULTICLIX LANCET) lancets check blood sugar as directed every other day 250.00 Non Insulin dependent omeprazole (PRILOSEC) 40 mg capsule Take 1 capsule by mouth once daily. (Patient not taking: Reported on 04/17/2022) No current facility-administered medications on file prior to visit. Social History Social History Tobacco Use Smoking status: Never Smokeless tobacco: Never Vaping Use Vaping Use: Never used Substance Use Topics Alcohol use: Not Currently Comment: occasionally Drug use: Yes Types: Marijuana Review of Symptoms REVIEW OF SYSTEMS GENERAL: No weight loss, malaise or fevers RESPIRATORY: Negative for cough, hemoptysis, wheezing, COPD, dyspnea or shortness of breath CARDIOVASCULAR: Negative for chest pain, leg swelling, hypertension, CHF or palpitations GI: No nausea, vomiting, or diarrhea EXAM: BP 159/94 Pulse 66 Resp 18 SpO2 98% Patient's Home Cuff 159/94 Manual (our cuff) 138/82 General Appearance: Well appearing, alert, in no acute distress, well-hydrated, well nourished.. Skin: Skin color, texture, turgor normal, no suspicious rashes or lesions. Lungs: Lungs clear to auscultation. No wheezing, rhonchi, rales.. Heart: RRR without murmur, gallop, or rubs. No ectopy. Abdomen: Normal abdominal exam, Abdomen soft, non-tender. Bowel sounds normal. No masses, organomegaly. Extremities: No deformities, edema, skin discoloration, clubbing or cyanosis. Good capillary refill. . Health Maintenance List ADVANCE DIRECTIVE DISCUSSION Never done DEPRESSION ASSESSMENT Never done COVID-19 VACCINE(5 - Booster for Moderna series) due on 11/20/2021 DILATED RETINAL EXAM due on 07/02/2022 DIABETIC FOOT EXAM due on 07/07/2022 HBA1C due on 07/08/2022 BP CONTROLLED (<130/80) due on 10/01/2022 HEMOGLOBIN/HEMATOCRIT due on 11/13/2022 URINE ALBUMIN:CREATININE RATIO due on 01/05/2023 LDL CHOLESTEROL due on 01/27/2023 SERUM CREATININE due on 01/29/2023 ANNUAL PCP TEAM CHRONIC DISEASE VISIT due on 03/31/2023 COLORECTAL CANCER SCREENING due on 01/20/2024 DTAP,TDAP,TD(3 - Td or Tdap) due on 12/18/2026 INFLUENZA Completed HEPATITIS C SCREENING Completed SHINGRIX VACCINE Completed PNEUMOCOCCAL: 65+ Completed Data reviewed Component Latest Ref Rng & Units 04/02/2022 TSH 0.270 - 4.200 mIU/L 0.214 (L) Free T4 0.9 - 1.7 ng/dL 1.2 T3 79 - 165 ng/dL 103 Microsomal Antibody <5.6 IU/mL <1.0 ASSESSMENT/PLAN: 1. Primary hypertension - ICD9: 401.9, ICD10: I10 (primary diagnosis) - good control on our cuff. Will be purchasing new home cuff. - Continue current medication(s) - Encouraged dietary sodium restriction/DASH diet - Recommended regular aerobic exercise. - Recommend home blood pressure monitoring, to bring results in on next visit - Reviewed risks of HTN and principles of treatment - Goal of BP <140/90 2. Brain fog - ICD9: 799.59, ICD10: R41.89 Likely 2/2 COVID infection. Will continue to monitor at home and keep f/u appointment in 2 weeks todiscuss further if symptoms persist. 3. History of COVID-19 - ICD9: V12.09, ICD10: Z86.16 Symptoms improved aside from brain fog. Discussed vaccination with Bivalent booster in the next 3 months. Evelina Shafer MD documented in this encounterC[facility]10-21-2022 History of Present illness Narrative* Dianna Elijah - 04/17/2022 3:50 AM EDT Sleep Study Check-In Documentation Date: April 17, 2022 Name: Osman Padgett Patient was accompanied by Self. Location: [place] Latex allergy: No Tape allergy: No Current medications were reviewed with the patient:Yes Sleep aid taken by patient for the sleep study: [place] of sleep aid: Not Applicable Procedure was explained to the patient and all questions were answered. PAP treatment discussed and shown to patient: Yes Knowledge Program (KP): KP was not completed in [facility] by patient and accepted Study type: Polysomnogram Adverse Event: No (If yes create a new abstract) SERS Event: No Comments: Patient was advised to follow up with their ordering provider regarding test results Patient did not meet the split night protocol. Dianna Nava documented in this encounterCincinnati [facility]10-20-2022 Miscellaneous Notes* Telephone Encounter - Rivka Bowie RN - 04/16/2022 11:16 AM EDT Pt reports he will be out of medication by tomorrow with increase in dose. Patient has been identified by name and date of : Yes Patient phones for refill(s): Requested Prescriptions Pending Prescriptions Disp Refills lisinopril (ZESTRIL, PRINIVIL) 10 mg tablet 90 tablet 1 Sig: Take 1 tablet by mouth once daily. Date of last office visit in primary care: 03/31/22 Future visit: 04/17/22 Last 2 Encounter Wt Readings: Date: Wt: 03/24/2022 88.5 kg (195 lb) 03/20/2022 89.8 kg (198 lb) Previous labs/tests for medication: Blood Pressure: BUN (mg/dL) Date Value 01/29/2022 26 07/08/2021 23 Sodium (mmol/L) Date Value 01/29/2022 138 07/08/2021 133 Last 1 Encounter BP Readings: Date: BP: 03/24/2022 122/84 Please advise. Thank you. Rivka Bowie, RN documented in this encounterCinc[facility]10-18-2022 Miscellaneous Notes* Telephone Encounter - Rosetta Rahman LPN - 04/14/2022 2:23 PM EDT message sent to patient. Rosetta Rahman LPN * Telephone Encounter - Evelina Shafer MD - 04/14/2022 10:40 AM EDT Recommend he come in for OV to recheck BP. Bring home cuff with him. documented in this encounterCinc[facility]10-11-2022 Miscellaneous Notes* Telephone Encounter - Abril Vallecillo LPN - 04/07/2022 6:47 PM EDT Phoned patient and updated him with provider's message. Patient voiced understanding. * Telephone Encounter - Evelina Shafer MD - 04/07/2022 5:12 PM EDT He may have immunity for up to 3 months after COVID unless there is a new strain. I would wait until his symptoms resolve to get the shot and try to get it before 3 months is up. * Telephone Encounter - Rosetta Rahman LPN - 04/07/2022 4:17 PM EDT Patient telephoned and made aware of results and recommendations below. Voices understanding, besides not understanding why he is having a low body temp and being extremely sweaty at the same time. Patient voicing he will await his upcoming appointments and go to them. Patient asking how long he needs to wait to get his covid booster after having Covid. Please advise. Rosetta Rahman LPN * Telephone Encounter - Kayce Landon Ma - 04/06/2022 1:47 PM EDT ----- Message from Evelina Shafer MD sent at 04/03/2022 5:26 PM EDT ----- Patient's TSH is low which could indicate overactive thyroid, however, his other thyroid hormones are completely normal which shows he does not have this condition. He may have some subclinical hyperthyroidism or this low TSH may be lab error. Either way, I would not recommend treatment at this time. I would recommend patient follow up with GI for nausea as discussed and continue zofran or phenergan for nausea, whichever is working better for him. documented in this encounterCinc[facility]09-27-2022 History of Present illness Narrative* Minna Soriano APRN.REGULATORY SUBMISSIONS SPECIALIST - 03/24/2022 12:24 PM EDT Subjective HPI Osman Padgett is a 72 year old male who presents with nausea, fatigue, runny nose, cough, sore throat, body aches for the past 24 hours. His tested positive for COVID 3 days ago. He denies fever or shortness of breath. PMH significant for DM, HTN, CKD, hyperlipidemia. Review of Systems Constitutional: Negative for chills and fever. HENT: Positive for congestion and sore throat. Respiratory: Positive for cough. Cardiovascular: Negative. Gastrointestinal: Positive for nausea. Negative for abdominal pain, diarrhea and vomiting. Musculoskeletal: Positive for myalgias. Neurological: Negative for dizziness and headaches. BP 122/84 Pulse 84 Temp 37 C (98.6 F) Resp 16 Wt 88.5 kg (195 lb) SpO2 98% BMI 27.20 kg/m PAST MEDICAL HISTORY Diagnosis Date Allergic rhinitis due to other allergen Basal cell carcinoma Shoulder BPH (benign prostatic hyperplasia) CKD stage 2 due to type 2 diabetes mellitus (HCC) Dr. Balbuena Erectile dysfunction Genital herpes Moderate episode of recurrent major depressive disorder (HCC) Other and unspecified hyperlipidemia Plantar fasciitis RBBB Dr. Gerard Statin intolerance Type II or unspecified type diabetes mellitus without mention of complication, not stated as uncontrolled Varicose veins of both lower extremities s/p laser removal PAST SURGICAL HISTORY Procedure Laterality Date COLONOSCOPY FLX DX W/COLLJ SPEC WHEN PFRMD 01/19/2014 Colonoscopy ESOPHAGOGASTRODUODENOSCOPY TRANSORAL DIAGNOSTIC 04/19/2014 EGD PAST SURGICAL HISTORY OF ~1989 Sinus tumor (benign) R max. Visual impairment. PAST SURGICAL HISTORY OF Bilateral 2015 laser surgery for varicose veins. PAST SURGICAL HISTORY OF 2019 dental implants PAST SURGICAL HISTORY OF 2019 deviated septum repair PAST SURGICAL HISTORY OF 2016 urolift PAST SURGICAL HISTORY OF BCC excision from back TONSILLECTOMY HX childhood ALLERGIES Benadryl [Diphenhydramine], Flomax [Tamsulosin], Lipitor [Atorvastatin], Penicillins, Thiazides, and Trazodone MEDICATIONS FLUoxetine (PROZAC) 40 mg capsule Take 1 capsule by mouth once daily. FLUoxetine (PROZAC) 20 mg capsule Take 1 capsule by mouth once daily. metFORMIN (GLUCOPHAGE) 1,000 mg tablet Take 1 tab by mouth in am and 1/2 tablet in evening. Tadalafil (CIALIS) 5 mg tablet Take 1 tablet by mouth once daily. Magnesium 250 mg tab Take 500 mg by mouth once daily. fluticasone (FLONASE) 50 mcg/actuation nasal spray Use 2 Sprays in each nostril once daily. Rinse mouth after use. blood sugar diagnostic (FREESTYLE LITE STRIPS) test strip Test blood sugar(s) 1 times daily. E11.9-type 2 diabetes mellitus, no insulin LORATADINE (CLARITIN ORAL) Take by mouth. Lancets (ACCU-CHEK MULTICLIX LANCET) lancets check blood sugar as directed every other day 250.00 Non Insulin dependent FAMILY HISTORY Problem Relation Age of Onset Breast Cancer Mother developed cancer in lymph nodes other (leukemia) Father Social History Tobacco Use Smoking status: Never Smokeless tobacco: Never Vaping Use Vaping Use: Never used Substance Use Topics Alcohol use: Not Currently Comment: occasionally Drug use: Yes Types: Marijuana Objective Physical Exam Vitals and nursing note reviewed. Constitutional: Appearance: Normal appearance. HENT: Mouth/Throat: Mouth: Mucous membranes are moist. Pharynx: Oropharynx is clear. No oropharyngeal exudate or posterior oropharyngeal erythema. Cardiovascular: Rate and Rhythm: Normal rate and regular rhythm. Heart sounds: Normal heart sounds. Pulmonary: Effort: Pulmonary effort is normal. No respiratory distress. Breath sounds: Normal breath sounds. No wheezing or rales. Skin: General: Skin is warm and dry. Findings: No erythema or rash. Neurological: Mental Status: He is alert. ASSESSMENT/PLAN: 1. Suspected COVID-19 virus infection - ICD9: V01.79, ICD10: Z20.822 (primary diagnosis) - COVID WITH FLUA+B, ROUTINE - you may qualify for anti-viral treatment if positive for COVID. Please schedule an Express Care online appointment for more information. 2. Exposure to confirmed case of COVID-19 - ICD9: V01.79, ICD10: Z20.822 - COVID WITH FLUA+B, ROUTINE - Follow-up with your PCP in 3-5 days if symptoms have not improved or sooner if symptoms worsen - Discussed red flags and need for immediate medical evaluation if any occur. - Discussed supportive care treatment with fluids, rest and analgesia. - Discussed expected course of illness Minna Soriano APRN.CNP documented in this encounterCincinnati [facility]09-27-2022 Instructions* Patient Instructions* Minna Soriano APRN.CNP - 03/24/2022 12:24 PM EDT ASSESSMENT/PLAN: 1. Suspected COVID-19 virus infection - ICD9: V01.79, ICD10: Z20.822 (primary diagnosis) - COVID WITH FLUA+B, ROUTINE - you may qualify for anti-viral treatment if positive for COVID. Please schedule an Express Care online appointment for more information. 2. Exposure to confirmed case of COVID-19 - ICD9: V01.79, ICD10: Z20.822 - COVID WITH FLUA+B, ROUTINE - Follow-up with your PCP in 3-5 days if symptoms have not improved or sooner if symptoms worsen - Discussed red flags and need for immediate medical evaluation if any occur. - Discussed supportive care treatment with fluids, rest and analgesia. - Discussed expected course of illness Minna Soriano APRN.REGULATORY SUBMISSIONS SPECIALIST Beginning Home Isolation Isolation is used to separate people infected with SARS-CoV-2, the virus that causes COVID-19, frompeople who are not infected. People who are in isolation should stay home until it s safe for them to be around others. In the home, anyone sick or infected should separate themselves from others by staying in a specific sick room or area and using a separate bathroom (if available). Isolation or Quarantine: What's the difference? Quarantine keeps someone who might have been exposed to the virus away from others. Isolation keeps someone who is infected with the virus away from others, even in their home. Who needs to isolate People who have COVID-19 People who have symptoms of COVID-19 and are able to recover at home People who have no symptoms (are asymptomatic) but have tested positive for infection with SARS-CoV-2 Steps to take Stay home except to get medical care Monitor your symptoms. Stay in a separate room from other household members, if possible Use a separate bathroom, if possible Avoid contact with other members of the household and pets Don t share personal household items, like cups, towels, and utensils Wear a mask when around other people, if you are able to When to seek emergency medical attention Look for emergency warning signs* for COVID-19. If someone is showing any of these signs, seek emergency medical care immediately: Trouble breathing Persistent pain or pressure in the chest New confusion Inability to wake or stay awake Bluish lips or face *This list is not all possible symptoms. Please call your medical provider for any other symptoms that are severe or concerning to you. Call 911 or call ahead to your local emergency facility: Notify the concrete mixer operator helper that you are seeking care for someone who has or may have COVID-19. Ending Home Isolation - When you can be around others after you had or likely had COVID-19 When you can be around others after you had or likely had COVID-19 If You Test Positive for COVID-19 (Isolation) Everyone, regardless of vaccination status: Stay home for 5 days. Note: Day 0 is your first day of symptoms or the date of collection of a positive viral test if no symptoms. Day 1 is the first full day after symptoms developed or test specimen was collected. If you have no symptoms or your symptoms are resolving after 5 days, you can leave your house. Continue to wear a mask around others for 5 additional days. If you have a fever, continue to stay home until your fever resolves, even if it is longer than 5 days. If You Were Exposed to Someone with COVID-19 (Quarantine) If you: 1. Have been boosted OR 2. Completed the primary series of Pfizer or Moderna vaccine within the last 6 months OR 3. Completed the primary series of J&J vaccine within the last 2 months THEN: 1. Wear a mask around others for 10 days. 2. Test on day 5, if possible. If you develop symptoms get a test and stay home. If You Were Exposed to Someone with COVID-19 (Quarantine) If you: 1. Completed the primary series of Pfizer or Moderna vaccine over 6 months ago and are not boosted OR 2. Completed the primary series of J&J over 2 months ago and are not boosted OR 3. Are unvaccinated THEN: 1. Stay home for 5 days. After that continue to wear a mask around others for 5 additional days. 2. If you can't quarantine you must wear a mask for 10 days. 3. Test on day 5 if possible. If you develop symptoms get a test and stay home. I had COVID-19 or I tested positive for COVID-19 and I have a weakened immune system If you have a weakened immune system (immunocompromised) due to a health condition or medication, you might need to stay home and isolate longer than 10 days. Talk to your healthcare provider for more information. Your doctor may work with an infectious disease expert at your local health department to determinewhen you can be around others. How to Manage Common Symptoms Associated with COVID for Adults Fever- Fever is a temperature over 100.4 F and can occur when the body is fighting an infection. Tohelp treat a fever: Drink plenty of fluids and stay well hydrated. Eat small amounts of easy to digest food. Rest. Your body needs rest to recover, but getting up and moving around the house frequently is a good idea. You should try to continue doing your normal daily activities (bathing, toileting, grooming, cooking), though you will probably feel tired, and need to rest often. Avoid any heavy activity or exercise, as this will increase your body temperature. Dress in light clothing and stay covered in a light sheet. Keep the room temperature cool. Take a slightly warm (not cold or cool) bath, or apply damp washcloths to the forehead and wrists. Cough- Cough is a common symptom associated with COVID and can be bothersome. To help treat a cough: Stay well hydrated. Try warm water or tea with lemon and/or honey to help soothe the cough. Use a humidifier to add moisture to the air. Try a product with menthol, like a cough drop or a rub for your chest such as Vicks, which can helpreduce cough. Try cough drops. Avoid smoking and other strong odors or perfumes. Try breathing exercises to keep your lungs open and clear. Take a big deep breath through your noseand hold for 5 seconds before slowly releasing. Repeat frequently, while you are awake. Congestion- Runny nose or nasal congestion can occur with COVID. Treatment can help relieve symptoms: Try OTC nasal saline spray, or nasal saline rinse to relieve mucus congestion. Nasal strips can help keep nasal passages open, to increase airflow. Elevating your head with an extra pillow in bed can help reduce congestion. Using a humidifier can increase moisture in the air, and make breathing easier. Sore Throat- Another common symptom with COVID, can be managed at home by: Stay well hydrated. Gargle with salt water - mix teaspoon salt with 1 cup of warm water and gargle. This helps to loosen mucus in the back of the throat and may reduce discomfort. Try ice chips, popsicles or lozenges to soothe the throat. Nausea/Vomiting/Diarrhea- These are common symptoms, and staying hydrated is most important. If you are nauseous or vomiting, start with small sips of water every 10-15 minutes and increase astolerated. You can try sucking an ice cube too. If tolerating, you can try pedialyte or Gatorade, or flat sprite or amanda-gelacio. Start slowly and increase as you are able to. Instead of meals, try smaller, more frequent snacks. Try eating bland foods like crackers, toast, rice, and applesauce. Avoid spicy, greasy or fried foods and dairy containing foods. Even if you aren't feeling hungry due to lack of smell or taste, it is important to try to take in some food when you are able. After drinking and eating, rest in an upright position for up to two hours as needed to help decrease nauseous feelings. Try closing your eyes, avoid moving and watching TV. Avoid strong odors that can make you feel more nauseated. When to seek emergency medical attention Look for emergency warning signs for COVID-19. If having any of these symptoms, seek emergency medical care immediately: Trouble breathing Persistent pain or pressure in the chest New confusion Inability to wake or stay awake Bluish lips or face *This list is not all possible symptoms. Please call your medical provider for any other symptoms that are severe or concerning to you. documented in this encounterC[facility] Miscellaneous Notes* Telephone Encounter - Rosetta Rahman LPN - 03/04/2022 7:07 PM EDT Vladislav telephoned. radiology ct technologist stated that insurance is stating it is too soon to fill. They said they never even received the rx on the 40mg 2 capsules once a day. Insurance won't pay for the 40mg until Mar 28 because they think he already has enough. Patient can pay out of pocket, the cost for 90 days is $69.78 or 30 days for $25.40. Again, this will still come out of his current refill so he will only have 60 remaining the next time if he gets the 30 capsules rather then 90 capsules remaining. Rosetta Rahman LPN * Telephone Encounter - Angie Li APRN.CNP - 03/04/2022 5:23 PM EDT Can we call Vladisl[facility] and see why they won't fill this. Patient had increased his dose to 80 mg so heran out. He is going back to 60 mg and he needs 40 mg and 20 mg tablets. I sent new prescriptions so this should not be an issue. Angie Li APRN.CNP documented in this encounterCinc[facility]09-06-2022 Miscellaneous Notes* Telephone Encounter - vEi Solorzano Ma - 03/03/2022 1:34 PM EDT See pt message. I've pended Rx's as requested. Evi Solorzano Ma documented in this encounterCinc[facility]08-05-2022 Miscellaneous Notes* Telephone Encounter - Evelina Shafer MD - 01/30/2022 8:01 AM EDT No changes were made to his medication regimen in the ER. Discussed support hose daily with patientand cessation of caffeinated beverages. Thank you for your quick response. * Telephone Encounter - Andrew Balbuena DO - 01/29/2022 8:20 PM EDT Got message from PCP that patient was at local ER with dizziness/hypotension and volume depletion and noted to be in TRUPTI. Unable to see much under care everywhere. I previously told him he could drink 56 fluid oz total per day and more if it is a hot day and he is outside. I see PCP ordered repeat BMP which is pending. His BP today in the office when he saw PCP was okay and he was not orthostatic. Not clear what changes if any were made in the ER to his medication regimen. I will ask INFUSION RN Heider to arrange follow up/counseling pending results of BMP today. Support hose may also be helpful here and/or addition of NaCl tabs for hypoNa and hypotension and/or stopping low dose lisinopril. Labs from careverywhere: Lactate/PTT/INR/LFTs normal, K-4.3, Na-132, WBC-8.2, Hgb-12.2, PLT-291, CO2-26, albumin-4, Ca-9.1, Cr-1.7, BUN-32 Vitals 10/15/2021 11/11/2021 12/02/2021 12/02/202101/0501/05/2022 01/29/2022 SITTING SYSTOLIC 120 127 128 118 SITTING DIASTOLIC 72 76 77 56 PULSE 74 66 74 TEMPERATURE RESPIRATIONS 20 16 16 WEIGHT in POUNDS 200 lb 200 lb 12.8 oz 200 lb 9.6 oz 200 lb 6.4 oz Vitals 01/29/2022 01/29/2022 01/29/2022 Orthostatic BP 126/72 128/80 122/70 Orthostatic Pulse 72 76 85 BP Position Supine Sitting Standing BP Site Left Arm Left Arm Left Arm RENAL KIDNEY STONE FLOWSHEET Latest Ref Rng & Units 09/04/2021 11/13/2021 01/05/2022 Creatinine 0.73 - 1.22 mg/dL 1.32 (H) 1.24 (H) 1.25 (H) BUN 9 - 24 mg/dL 26 (H) 23 25 (H) Sodium 136 - 144 mmol/L 132 (L) 132 (L) 136 Potassium 3.7 - 5.1 mmol/L 4.8 5.1 5.0 Chloride 97 - 105 mmol/L 93 (L) 98 100 CO2 22 - 30 mmol/L 26 24 25 Glucose 74 - 99 mg/dL 84 115 (H) 108 (H) Calcium 8.5 - 10.2 mg/dL 10.0 9.8 9.8 documented in this encounterCincinnati [facility]08-04-2022 History of Present illness Narrative* Evelina Shafer MD - 01/29/2022 2:31 PM EDT Chief Complaint Patient presents with: ER F/U HPI Osman Padgett is a 72 year old male who presents here today for ER Follow Up.. Patient evaluated at [facility] ED on 01/25 for complaint of dizziness, fatigue, and near syncopal episodesfor a few days prior to evaluation. Symptoms worse with bending and then standing up. Admitted to nausea without vomiting or diarrhea. Workup in the ED positive for mild anemia with hemoglobin of 12.2 and TRUPTI with creatinine of 1.72 and BUN 32. EKG showed RBBB which is chronic with first degree AV block. CXR, D dimer, PT/INR and PTT were normal. Given 2 liters of IV fluids and symptoms improved. Discharged home with recommendation to follow up with our office. Since discharge, patient has not had any recurrent dizziness, fatigue or near syncopal episodes. Vitals have been back to normal. Tolerating PO diet without nausea, vomiting, diarrhea. Patient does not have appointment with nephrology until April. They are restricting his fluids to 32 oz per day along with his 3 cups of coffee due to hyponatremia. Was advised to wear compressionstockings which he has not been doing. Patient would like to increase his dose of Prozac today. States that it has helped some with his depression symptoms, but still has some issues with anger and difficulty concentrating. Denies SI/HI, side effects. Past medical history, appointments, medications, allergies reviewed. Previous Medical History PAST MEDICAL HISTORY Diagnosis Date Allergic rhinitis due to other allergen Basal cell carcinoma Shoulder BPH (benign prostatic hyperplasia) CKD stage 2 due to type 2 diabetes mellitus (HCC) Dr. Balbuena Erectile dysfunction Genital herpes Other and unspecified hyperlipidemia Plantar fasciitis RBBB Dr. Gerard Statin intolerance Type II or unspecified type diabetes mellitus without mention of complication, not stated as uncontrolled Varicose veins of both lower extremities s/p laser removal Previous Surgical History PAST SURGICAL HISTORY Procedure Laterality Date COLONOSCOPY FLX DX W/COLLJ SPEC WHEN PFRMD 01/19/2014 Colonoscopy ESOPHAGOGASTRODUODENOSCOPY TRANSORAL DIAGNOSTIC 04/19/2014 EGD PAST SURGICAL HISTORY OF ~1989 Sinus tumor (benign) R max. Visual impairment. PAST SURGICAL HISTORY OF Bilateral 2015 laser surgery for varicose veins. PAST SURGICAL HISTORY OF 2019 dental implants PAST SURGICAL HISTORY OF 2019 deviated septum repair PAST SURGICAL HISTORY OF 2016 urolift PAST SURGICAL HISTORY OF BCC excision from back TONSILLECTOMY HX childhood Family History FAMILY HISTORY Problem Relation Age of Onset Breast Cancer Mother developed cancer in lymph nodes other (leukemia) Father Patient Allergies ALLERGIES Allergen Reactions Benadryl [Diphenhyd* Other: See Comments Paradoxical effect Flomax [Tamsulosin] Other: See Comments Problem with ejaculation Lipitor [Atorvastat* Mental Status Change Confusion Penicillins Rash Thiazides Contraindication-Medical Surgical hypoNa Trazodone Mental Status Change Increased anxiety Current Medications Current Outpatient Medications on File Prior to Visit Medication Sig FLUoxetine (PROZAC) 40 mg capsule Take 1 capsule by mouth once daily. lisinopril 2.5 mg tablet Take 1 tablet by mouth once daily. Magnesium 250 mg tab Take 500 mg by mouth once daily. metFORMIN (GLUCOPHAGE) 1,000 mg tablet Take 1 tab by mouth in am and 1/2 tablet in evening. fluticasone (FLONASE) 50 mcg/actuation nasal spray Use 2 Sprays in each nostril once daily. Rinse mouth after use. LORATADINE (CLARITIN ORAL) Take by mouth. Lancets (ACCU-CHEK MULTICLIX LANCET) lancets check blood sugar as directed every other day 250.00 Non Insulin dependent Tadalafil (CIALIS) 5 mg tablet Take 1 tablet by mouth once daily. blood sugar diagnostic (FREESTYLE LITE STRIPS) test strip Test blood sugar(s) 1 times daily. E11.9-type 2 diabetes mellitus, no insulin No current facility-administered medications on file prior to visit. Social History Social History Tobacco Use Smoking status: Never Smoker Smokeless tobacco: Never Used Substance Use Topics Alcohol use: Not Currently Comment: occasionally Drug use: Yes Types: Marijuana Review of Symptoms REVIEW OF SYSTEMS GENERAL: No weight loss, malaise or fevers RESPIRATORY: Negative for cough, hemoptysis, wheezing, COPD, dyspnea or shortness of breath CARDIOVASCULAR: Negative for chest pain, leg swelling, hypertension, CHF or palpitations GI: No nausea, vomiting, or diarrhea SKIN: Negative for lesions, rash, and itching EXAM: Resp 16 Wt 90.9 kg (200 lb 6.4 oz) SpO2 98% BMI 27.37 kg/m BP w/Orthostatic Vitals Date and Time Orthostatic BP Orthostatic Pulse BP Pulse BP Position BP Site BP Cuff Size 01/29/22 1427 122/70 85 -- -- Standing Left Arm -- 01/29/22 1426 128/80 76 -- -- Sitting Left Arm -- 01/29/22 1425 126/72 72 -- -- Supine Left Arm -- Peak Flow Date and Time PF Resp 01/29/22 1425 -- 16 General Appearance: Well appearing, alert, in no acute distress, well-hydrated, well nourished.. Skin: Skin color, texture, turgor normal, no suspicious rashes or lesions. Lungs: Lungs clear to auscultation. No wheezing, rhonchi, rales.. Heart: RRR without murmur, gallop, or rubs. No ectopy. Abdomen: Normal abdominal exam, Abdomen soft, non-tender. Bowel sounds normal. No masses, organomegaly. Extremities: No deformities, edema, skin discoloration, clubbing or cyanosis. Good capillary refill. Health Maintenance List ADVANCE DIRECTIVE DISCUSSION Never done INFLUENZA(1) due on 02/26/2022 DILATED RETINAL EXAM due on 07/02/2022 DIABETIC FOOT EXAM due on 07/07/2022 HBA1C due on 07/08/2022 DEPRESSION SCREENING due on 08/14/2022 URINE ALBUMIN:CREATININE RATIO due on 01/05/2023 ANNUAL PCP TEAM CHRONIC DISEASE VISIT due on 01/05/2023 SERUM CREATININE due on 01/05/2023 BP CONTROLLED (<130/80) due on 01/05/2023 LDL CHOLESTEROL due on 01/27/2023 COLORECTAL CANCER SCREENING due on 01/20/2024 DTAP,TDAP,TD(3 - Td or Tdap) due on 12/18/2026 HEPATITIS C SCREENING Completed SHINGRIX VACCINE Completed COVID-19 VACCINE Completed PNEUMOCOCCAL: 65+ Completed ASSESSMENT/PLAN: 1. Dehydration - ICD9: 276.51, ICD10: E86.0 (primary diagnosis) Discussed with patient cutting out caffeine to help prevent dehydration and should wear compressionstockings as directed by nephrology. Will send message to their office to see if they want to increase his fluid intake at all with this recent ER visit. Red flags for re-assessment reviewed with patient in detail. 2. TRUPTI (acute kidney injury) (HCC) - ICD9: 584.9, ICD10: N17.9 Recheck BMP today. - BASIC METABOLIC PNL 3. Moderate episode of recurrent major depressive disorder (HCC) - ICD9: 296.32, ICD10: F33.1 Uncontrolled. Increase Prozac to 80 mg daily and f/u in 3 months or PRN. Evelina Shafer MD documented in this encounterC[facility]08-03-2022 Miscellaneous Notes* Telephone Encounter - vEelina Shafer MD - 01/28/2022 2:08 PM EDT Reviewed. Lipid panel was not drawn in ER. Patient had this drawn yesterday as ordered. Will reviewresults at his upcoming OV. * Telephone Encounter - Kayce Landon Ma - 01/26/2022 4:03 PM EDT ER records and labs printed. Kayce Landon Ma documented in this encounterCinc[facility]08-03-2022 Miscellaneous Notes* Telephone Encounter - Lucina Acevedo LPN - 01/28/2022 8:14 AM EDT Spoke with pt and information listed below given. Pt verbalizes understanding. Lucina Acevedo LPN * Telephone Encounter - Rosetta Rahman LPN - 01/28/2022 8:11 AM EDT Message left for patient to call office back and speak with a triage nurse. Rosetta Rahman LPN * Telephone Encounter - Angie Li APRN.CNP - 01/28/2022 7:52 AM EDT Please call patient and let him know his total cholesterol and LDL ( bad cholesterol) have showed improvement. Continue to work on eating low fat diet and aim for at least 150 minutes of exercise perweek. Thanks, Angie Li APRN.SAGE documented in this encounterCinc[facility]07-12-2022 Miscellaneous Notes* Telephone Encounter - Rosetta Rahman LPN - 01/06/2022 9:27 AM EDT Patient notified. Rosetta Rahman LPN * Telephone Encounter - Angie Li APRN.CNP - 01/06/2022 9:16 AM EDT Order for lipid panel placed. He needs to fast 10 hours prior- may have black coffee/tea or water. No creamer, sweetners or sugar. Thanks, Angie Li APRN.CNP * Telephone Encounter - Abril Vallecillo LPN - 01/06/2022 9:01 AM EDT Phoned patient and updated him with results. Patient voiced understanding but inquiring if providercould order a lipid panel? He stated he hasn't had one in a while and has been doing low cholesterol diet with his and wants to be sure the effort is worth while. * Telephone Encounter - Angie Li APRN.SAGE - 01/06/2022 8:52 AM EDT Please call patient and let him know his A1c is 6.2% which has improved from six months ago. Kindeyfunctin remains decreased but stable. Continue to eat low salt diet, stay well hydrated and avoid NSAID products. The rest of his blood work is normal. Thanks Angie Li APRN.CNP documented in this encounterCinc[facility]07-11-2022 History of Past illness Narrative* Problem Noted Date Resolved Date CKD stage 2 due to type 2 diabetes mellitus 12/2608/27/2022 Acute pain of both knees 10/01/2020 021 documented as of this encounter (statuses as of 09/10/2022) [facility] History of Past illness Narrative* Problem Noted Date Resolved Date CKD stage 2 due to type 2 diabetes mellitus 12/2608/27/2022 Acute pain of both knees 10/01/2020 021 documented as of this encounter (statuses as of 09/11/2022) [address]11-2022 History of Past illness Narrative* Problem Noted Date Resolved Date CKD stage 2 due to type 2 diabetes mellitus 12/2608/27/2022 Acute pain of both knees 10/01/2020 021 documented as of this encounter (statuses as of 09/16/2022) [facility] History of Past illness Narrative* Problem Noted Date Resolved Date CKD stage 2 due to type 2 diabetes mellitus 12/2608/27/2022 Acute pain of both knees 10/01/2020 021 documented as of this encounter (statuses as of 12/04/2022) [address]11-2022 History of Past illness Narrative* Problem Noted Date Diagnosed Date Resolved Date CKD stage 2 due to type 2 diabetes mellitus 01/05/2022 08/27/2022 Acute pain of both knees 10/01/2020 documented as of this encounter (statuses as of 01/07/2023) [address]11-2022 History of Past illness Narrative* Problem Noted Date Diagnosed Date Resolved Date CKD stage 2 due to type 2 diabetes mellitus 01/05/2022 08/27/2022 Acute pain of both knees 10/01/2020 documented as of this encounter (statuses as of 01/13/2023) [facility] of Past illness Narrative* Problem Noted Date Diagnosed Date Resolved Date CKD stage 2 due to type 2 diabetes mellitus 01/05/2022 08/27/2022 Acute pain of both knees 10/01/2020 documented as of this encounter (statuses as of 05/02/2023) [address]22 History of Past illness Narrative* Problem Noted Date Diagnosed Date Resolved Date CKD stage 2 due to type 2 di abetes mellitus (HCC) 01/05/2022 08/27/2022 Acute pain of both knees 10/01/2020 documented as of this encounter (statuses as of 05/04/2023) [facility] of Past illness Narrative* Problem Noted Date Diagnosed Date Resolved Date CKD stage 2 due to type 2 diabetes mellitus 01/05/2022 08/27/2022 Acute pain of both knees 10/01/2020 documented as of this encounter (statuses as of 05/19/2023) [facility] History of Present illness Narrative* Daniel Alexandre - 12/30/2021 9:33 AM EDT Chief Complaint: This 71 year old male who presents with chief complaint:b/l great to epain HPI Patient presents to clinic for evaluation of b/l foot. Patient complains of burning in both feet. The burning is located to the tips of the toe. The burning is not present all the time but if he is doing a lot of walking, he has pain. He also has pain in the joint of both hallux. The pain comes andgoes. Patient states the pain in his hallux is brought on by walking Patient did have plantar fasciitis and that is now resolved. PAIN EVALUATION 12/30/2021 0915 Pain Level: 9 Pain Location: Toe Description: Aching Duration Amount of Time: 6 Duration Units: Months Frequency: Intermittent Intervention/Comfort measure: Relaxation;Reposition Hemoglobin A1C (%) Date Value 07/08/2021 6.5 12/31/2020 6.2 07/01/2020 6.8 12/28/2019 6.6 06/26/2019 6.2 PCP: Evelina Shafer MD PAST MEDICAL HISTORY Diagnosis Date Allergic rhinitis due to other allergen Basal cell carcinoma Shoulder BPH (benign prostatic hyperplasia) Erectile dysfunction Genital herpes Other and unspecified hyperlipidemia Plantar fasciitis RBBB Dr. Gerard Statin intolerance Type II or unspecified type diabetes mellitus without mention of complication, not stated as uncontrolled Varicose veins of both lower extremities s/p laser removal Current Outpatient Medications Medication Sig FLUoxetine (PROZAC) 20 mg capsule Take 1 capsule by mouth once daily. lisinopril 2.5 mg tablet Take 1 tablet by mouth once daily. Magnesium 250 mg tab Take 500 mg by mouth once daily. fluticasone (FLONASE) 50 mcg/actuation nasal spray Use 2 Sprays in each nostril once daily. Rinse mouth after use. blood sugar diagnostic (FREESTYLE LITE STRIPS) test strip Test blood sugar(s) 1 times daily. E11.9-type 2 diabetes mellitus, no insulin LORATADINE (CLARITIN ORAL) Take by mouth. Lancets (ACCU-CHEK MULTICLIX LANCET) lancets check blood sugar as directed every other day 250.00 Non Insulin dependent Tadalafil (CIALIS) 5 mg tablet Take 1 tablet by mouth once daily. metFORMIN (GLUCOPHAGE) 1,000 mg tablet Take 1 tab by mouth in am and 1/2 tablet in evening. No current facility-administered medications for this visit. ALLERGIES Allergen Reactions Benadryl [Diphenhyd* Other: See Comments Paradoxical effect Flomax [Tamsulosin] Other: See Comments Problem with ejaculation Lipitor [Atorvastat* Mental Status Change Confusion Penicillins Rash Thiazides Contraindication-Medical Surgical hypoNa Trazodone Mental Status Change Increased anxiety PAST SURGICAL HISTORY Procedure Laterality Date COLONOSCOPY FLX DX W/COLLJ SPEC WHEN PFRMD 01/19/2014 Colonoscopy ESOPHAGOGASTRODUODENOSCOPY TRANSORAL DIAGNOSTIC 04/19/2014 EGD PAST SURGICAL HISTORY OF ~1989 Sinus tumor (benign) R max. Visual impairment. PAST SURGICAL HISTORY OF Bilateral 2015 laser surgery for varicose veins. PAST SURGICAL HISTORY OF 2019 dental implants PAST SURGICAL HISTORY OF 2019 deviated septum repair PAST SURGICAL HISTORY OF 2016 urolift PAST SURGICAL HISTORY OF BCC excision from back TONSILLECTOMY HX childhood FAMILY HISTORY Problem Relation Age of Onset Breast Cancer Mother developed cancer in lymph nodes other (leukemia) Father Social History Tobacco Use Smoking status: Never Smoker Smokeless tobacco: Never Used Substance Use Topics Alcohol use: Not Currently Comment: occasionally Drug use: Yes Types: Marijuana REVIEW OF SYSTEMS GENERAL: Negative for Malaise, significant weight loss, fever RESPIRATORY: Negative for cough, wheezing and shortness of breath CARDIOVASCULAR: Negative for chest pain, leg swelling and palpitations GI: Negative for abdominal discomfort, blood in stools or black stools and change in bowel habits : Negative for dysuria, frequency and incontinence MUSCULOSKELETAL: Negative for joint pain or swelling, back pain, and muscle pain. SKIN: Negative for lesions, rash, and itching. HEMATOLOGY/LYMPHOLOGY Negative for prolonged bleeding, bruising easily, and swollen nodes. ENDOCRINE: Negative for cold or heat intolerance, polyuria, polydipsia and goiter. NEURO: negative Physical Exam: Constitutional: Pt is a well developed 71 year old male who is alert, oriented and cooperative Eyes: Following during examination. No redness or drainage. Respiratory: RR normal and nonlabored. Even breathing. No evidence of distress or shortness of breath. Psychology: Patient is engaged during conversation. Normal affect and mood. Does not appear depressed or anxious during encounter. Vascular: Dorsalis pedis and posterior tibial pulses palpable as b/l Capillary Fill time < 5 seconds to digits 1-5 b/l Skin temperature warm to warm proximal to distal b/l Hair growth present to digits Neurological: decreased light touch/epicritic sensation Vibratory sensation decreased b/l decreased protective sensation + significant neurological deficits Dermatological: Nails 1-5 b/l appear normal. Webspaces clean and dry 1-4 b/l. Skin appears well hydrated and supple. good color, texture, turgor. No open lesions present. No callosities present. Musculoskeletal/Orthopaedic: Patient has pain to palpation of b/l hallux ipj Foot type is neutral structurally AJ ROM is full with knee extended and flexed 1st MPJ is decreased when loaded and no pain or crepitus are noted with ROM. MTJ, STJ are full and free of pain and crepitus. +5/5 muscle strength dorsiflexion, plantarflexion, inversion, eversion b/l Radiographs: 3 views b/l foot ordered December 30, 2021: I have personally reviewed and interpreted these XR myself: Mild arthritis present to b/l 1st mtpj. ASSESSMENT: (E11.9, Z79.4) Type 2 diabetes mellitus without complication, with long-term current use of insulin([facility]) (primary encounter diagnosis) (M72.2) Plantar fasciitis (M20.5X9) Hallux limitus, acquired, unspecified laterality PLAN: 1. History and physical examination performed. 2. Diabetic foot exam performed. 3. Discussed numbness in b/l feet. Suspect component of neuropathy. Will prescribe him topical cream. Offered neurontin but he elected to hold on this 4. Discussed mild arthritis of b/l feet. Recommend inserts with madrid extension b/l. 5. F/u in 6 months to one year for diabetic foot exam 6. Plantar fasciitis resolved. Daniel Alexandre DPM Podiatry [address] [facility] [address] Dept: [phone] Dept * Michela Doherty RN - 12/30/2021 9:14 AM EDT AMB ROOMING INTAKE FLOWSHEET DATA Risk Screening Do you have concerns about personal safety or safety in the home?: No Pain Pain Level: 9 Pain Location: Toe Description: Aching Duration Amount of Time: 6 Duration Units: Months Frequency: Intermittent Intervention/Comfort measure: Relaxation, Reposition Patient presents with: Left Great Toe - Established Patient, Pain Right Great Toe - Established Patient, Pain Patient c/o intermittent swelling and pain to first joint of both great toes. No injury. Going on for 6 months to a year documented in this encounterCincinnati [facility]07-[facility] History of Present illness Narrative* RT Ary(R) - 12/30/2021 9:00 AM EDT Radiology Service Progress Note PATIENT NAME: Osman Padgett DATE OF SERVICE: December 30, 2021 TIME: 9:08 AM PATIENT IDENTITY VERIFICATION COMPLETED USING TWO (2) IDENTIFIERS: Name and Date of confirmedby patient verbally. FALL SCREENING: Has the patient had 2 falls in the last year or 1 fall with injury or currently using an Ambulatory Assistive Device (Walker, Cane, Wheelchair, Crutches, etc.)? No PATIENT GENDER DATA: Male PATIENT RELEVANT IMPLANT DATA REVIEWED: Not Applicable RADIOLOGY DEPARTMENT: General X-ray: Exam(s) Completed: Lower Extremity X- Ray(s): Feet, Bilateral and Wt. Bearing PERIPHERAL IV DATA: Not applicable SIGNED BY: RT Ary(R) December 30, 2021 9:08 AM documented in this encounterCincinnati [facility]06-13-2022 Miscellaneous Notes* Telephone Encounter - Evi Solorzano Ma - 12/08/2021 10:49 AM EDT See update from pt. Evi Solorzano Ma * Telephone Encounter - Kayce Landon Ma - 12/08/2021 8:20 AM EDT See Gravitantt message documented in this encounterCincinnati [facility]06-07-2022 Instructions* Patient Instructions* Hedy Nevarez APRN.CNP - 12/02/2021 9:51 AM EDT Update labs in January Urine sample today Low potassium diet Avoid all non-steroidal anti-inflammatory (NSAID) pain medications. - ibuprofen (motrin, advil), naproxen (alleve), indomethacin (indocin), meloxicam (mobic), celecoxib (celebrex), and diclofenac (volatren) are common ones. Acetaminophen (tylenol) is safe for kidneys if taken as directed. Ask your pharmacist if you have questions. Follow-up in 5-6 months documented in this encounterCincinnati [facility]06-07-2022 History of Present illness Narrative* Hedy Nevarez APRN.CNP - 12/02/2021 9:25 AM EDT [facility] SERVICE DATE: 12/02/2021 SERVICE TIME: 9:25 AM HPI: Mr. Padgett is a 71 year old male pt of Dr. Balbuena who presents for CKD follow-up. His PMHx as listed below includes HTN, DM, Myalgias/cramps, dizziness, insomnia, memory impairment (preceded THC use) and possible neuropathy without vertigo, normal B12/CK/LFTs/Electrolytes/TSH, ?TIA in setting of CBD overdose s/p negative MRI brain (2020) and CTA head/neck (2020) and saw ENT/Neuro. GERD s/p negative EGD (2013). OA (neck/knees/back). DM/HLD (on diet; intolerant to statins). HSV.ED, BPH/LUTS s/p urolift and subsequent cysto with holmium laser enucleation of prostate and removal of malpositioned urolift stent (2020). RBBB with normal EF and mild valvular disease without PFO on echo (2020). Allergic rhinitis. BCC (skin CA). Plantar fasciitis. He has CKD Stage II/III, non-proteinuric likely in setting of HTN +/- DM (although without retinopathy/neuropathy) IMANI 07/07/[address] Balbuena: BP okay/?overcontrolled He is feeling well with no acute complaints. His home blood pressure 120-130/80s. He reports improvement in dizziness, which is now rare. He reports good control on home blood sugar monitoring. His weight today is 200 lbs. PAST MEDICAL HISTORY: PAST MEDICAL HISTORY Diagnosis Date Allergic rhinitis due to other allergen Basal cell carcinoma Shoulder BPH (benign prostatic hyperplasia) Erectile dysfunction Genital herpes Other and unspecified hyperlipidemia Plantar fasciitis RBBB Dr. Gerard Statin intolerance Type II or unspecified type diabetes mellitus without mention of complication, not stated as uncontrolled Varicose veins of both lower extremities s/p laser removal PAST SURGICAL HISTORY: PAST SURGICAL HISTORY Procedure Laterality Date COLONOSCOPY FLX DX W/COLLJ SPEC WHEN PFRMD 01/19/2014 Colonoscopy ESOPHAGOGASTRODUODENOSCOPY TRANSORAL DIAGNOSTIC 04/19/2014 EGD PAST SURGICAL HISTORY OF ~1989 Sinus tumor (benign) R max. Visual impairment. PAST SURGICAL HISTORY OF Bilateral 2015 laser surgery for varicose veins. PAST SURGICAL HISTORY OF 2019 dental implants PAST SURGICAL HISTORY OF 2019 deviated septum repair PAST SURGICAL HISTORY OF 2016 urolift PAST SURGICAL HISTORY OF BCC excision from back TONSILLECTOMY HX childhood FAMILY HISTORY: FAMILY HISTORY Problem Relation Age of Onset Breast Cancer Mother developed cancer in lymph nodes other (leukemia) Father SOCIAL HISTORY: Social History Tobacco Use Smoking status: Never Smoker Smokeless tobacco: Never Used Substance Use Topics Alcohol use: Not Currently Comment: occasionally Drug use: Yes Types: Marijuana MEDICATIONS: Tadalafil (CIALIS) 5 mg tablet Take 1 tablet by mouth once daily. sertraline (ZOLOFT) 100 mg tablet Take 1.5 tablets by mouth once daily. Taking 75mg daily. lisinopril 2.5 mg tablet Take 1 tablet by mouth once daily. Magnesium 250 mg tab Take 500 mg by mouth once daily. metFORMIN (GLUCOPHAGE) 1,000 mg tablet Take 1 tab by mouth in am and 1/2 tablet in evening. fluticasone (FLONASE) 50 mcg/actuation nasal spray Use 2 Sprays in each nostril once daily. Rinse mouth after use. blood sugar diagnostic (FREESTYLE LITE STRIPS) test strip Test blood sugar(s) 1 times daily. E11.9-type 2 diabetes mellitus, no insulin LORATADINE (CLARITIN ORAL) Take by mouth. Lancets (ACCU-CHEK MULTICLIX LANCET) lancets check blood sugar as directed every other day 250.00 Non Insulin dependent ALLERGIES: ALLERGIES Allergen Reactions Benadryl [Diphenhyd* Other: See Comments Paradoxical effect Flomax [Tamsulosin] Other: See Comments Problem with ejaculation Lipitor [Atorvastat* Mental Status Change Confusion Penicillins Rash Thiazides Contraindication-Medical Surgical hypoNa Trazodone Mental Status Change Increased anxiety REVIEW OF SYSTEMS: Constitutional: No fever and No chills Cardiovascular: No chest pain or pressure and (+) MCCONNELL, no edema Respiratory: No cough Gastrointestinal: occ nausea related to zoloft, without emesis; appetite good Genitourinary: occ dysuria, some hesitancy, no hematuria, some frequency, 2x/nocturia Musculoskeletal: low back discomfort and plantar fasciitis; takes Tylenol, did take one dose of NSAID which is rare for him Neurological: No headache Psychiatric: notes improvement since starting Zoloft PHYSICAL EXAM: BP 128/77 (BP Site: Left Arm, BP Position: Sitting, BP Cuff Size: Regular Adult) Wt 91.1 kg (200 lb 12.8 oz) BMI 27.42 kg/m 12/02/21 0926 BP: 128/77 BP Site: Left Arm BP Position: Sitting BP Cuff Size: Regular Adult Weight: 91.1 kg (200 lb 12.8 oz) Constitutional: No acute distress, Responsive, Normal habitus and Well-nourished Eyes: Noscleral icterus Neck:No jugular venous distension Cardiovascular:No peripheral edema Regular rate and ryhthm, normal S1 and S2, no murmurs, rubs, or gallops Respiratory: Normal respiratory effort. Lungs clear bilaterally. Abdomen:soft, NT, ND, bowel sounds present Musculoskeletal: ambulates without assistance Psychiatric: Alert and oriented x self, place, time, and setting Normal mood/affect DATA: Diagnostic tests reviewed for today's visit: CKD LAB FLOWSHEET Latest Ref Rng & Units 07/08/2021 08/14/2021 09/04/2021 11/13/2021 EGFR, >60 EGFR, All Other >=60 mL/min/1.73m >60 58 (L) 63 Creatinine 0.73 - 1.22 mg/dL 1.19 1.32 (H) 1.24 (H) BUN 9 - 24 mg/dL 23 26 (H) 23 Sodium 136 - 144 mmol/L 133 (L) 132 (L) 132 (L) Potassium 3.7 - 5.1 mmol/L 4.9 4.8 5.1 Chloride 97 - 105 mmol/L 99 93 (L) 98 CO2 22 - 30 mmol/L 25 26 24 Glucose 74 - 99 mg/dL 102 (H) 84 115 (H) Calcium 8.5 - 10.2 mg/dL 10.1 10.0 9.8 Phosphorus 2.7 - 4.8 mg/dL Albumin 3.9 - 4.9 g/dL 4.8 ALT 10 - 54 U/L 14 WBC 3.70 - 11.00 k/uL 7.71 HGB 13.0 - 17.0 g/dL 12.3 (L) PLT 150 - 400 k/uL 307 Vitamin D25 Hydroxy 31.0 - 80.0 ng/mL 36.2 PTH, Intact 15 - 65 pg/mL Protein Urine Random 0 - 20 mg/dL 14 Creatinine Urine Random 20 - 300 mg/dL 52.3 Protein/Creatinine Ratio <0.2 0.3 (H) ASSESSMENT: CKD Stage II, non-proteinuric likely in setting of HTN +/- DM (although without retinopathy/neuropathy); last Scr. 1.24 and previous cystatin C 1.17, eGFR ~66; stable -on low dose ACEi -lytes: K 5.1 -volume status: euvolemic on exam -kidney sizes: acceptable on US 02/2021 BP: controlled Anemia: Hgb 12.3, monitor Metabolic acidosis: none Metabolic bone: Vitamin D/PTH at goal CV/Lipids: LDL 76, not requiring statin DM: last a1c 6.5 PLAN: Update labs in January Will check spot urine PCR today Low potassium diet Try to limit fluids pending your activity levels, continue current management Avoid NSAIds RTC 5-6 months SIGNATURE: Hedy Nevarez APRN.REGULATORY SUBMISSIONS SPECIALIST, Nephrology Staff PATIENT NAME: Osman Padgett DATE: December 02, 2021 TIME: 9:25 AM OFFICE NUMBER: [phone] CC: REFERRING PROVIDER: Self PRIMARY CARE PHYSICIAN: Evelina Shafer MD documented in this [facility]06-03-2022 History of Present illness Narrative* Angelina Mims RN - 11/28/2021 2:41 PM EDT PRIMARY CARE COORDINATION QUICK NOTE Provider Action/FYI Shirin spiritual care coordinatorreal estate marketing coordinator for this pt. [facility]. Patient identified by name and date . Angelina Mims RN November 28, 2021 2:44 PM documented in this encounterCincinnati [facility]05-17-2022 Instructions* Patient Instructions* Barbara Orantes MD - 11/11/2021 10:[address] Dutton is part of the [facility]'s health/ED team in [facility] to make an appointment: [phone] documented in this [facility]05-17-2022 Nurse Note* Lillie Grimaldo MA - 11/11/2021 10:01 AM EDT PVR 11 ml documented in this [facility]05-17-2022 History of Present illness Narrative* Barbara Orantes MD - 11/11/2021 10:00 AM EDT [facility] Urology Clinic Follow Up Attending: Barbara Orantes MD Diagnosis: BPH/LUTS, ED, stricture Procedures: Holep From [place] Chief complaint/Identification: Osman Padgett is a 71 year old male patient with CKD, DM, HLD,ED, herpes, RBBB, plantar here for management of BPH. He is s/p urolift 2019 but did not have any relief of symptoms. Cystoscopy demonstrated a trilobar prostate, though with minimal median lobe but a high bladder neck. There was an exposed UroLift implant inside the bladder just below the left bladder neck. RYAN was benign. The prostate measured between 50 to 60 g on TRUS. Pt underwent Holep on 12/20/20 Intraop findings Small bilobar prostate with high bladder neck and significant anterior tissue Multinodular BPH 3 urolift implants seen - 1 in the right lateral lobe and 1 in the left lateral lobe, both fairly distal and posterior. One implant under the left bladder neck protruding into the bladder. This was not engaging and prostate tissue and was 1-2 cm inferior to the bladder neck. This malpositioned one was removed entirely. The mucosal end of the other two implants were removed. Thin capsule bilaterally with small amount of fat visible, likely at sites of urolift implants Soft wide caliber bulbar stricture passed with gentle scope dilation Very capacious bladder Pathology: Prostate, transurethral resection - Benign prostatic hyperplasia, glandular and stromal type. Seen 02/10/21 - Good flow, no leak, no GH, path neg. On viagra for ED - not working well Plan - PSA, kegels, BMP Interval Hx: Started zoloft for depression - feels much better Taking tadalafil now - not working well Has not ejaculated in 3 months Notes going through menopause No GH, no UTI, no pads, no leaks Not doing kegels Uroflow Qmax 24.7 ml/sec VV 255 ml PVR 11 ml Lino curve AUASS 6/[address] SAL [address] Balbuena for CKD Disease specificity: Diagnosis: BPH/LUTS Acuity: Chronic Severity: Severe Anatomic Site: Prostate, Laterality: N/A Underlying Condition/Causal Agent: Primary Associated Conditions/Manifestations: N/A Diagnosis: ED Acuity: Chronic Severity:moderate Anatomic Site:penis, Laterality: N/A Underlying Condition/Causal Agent: Primary Associated Conditions/Manifestations: N/A The patient denies any new medical problems, surgeries, medications or changes to his social and family history since his last visit other than that noted above. Review of Systems: Review of Systems: PAIN ASSESSMENT: Negative for pain, history of chronic pain, or current treatment for a chronic pain condition. GENERAL: No recent illnesses, normal energy levels, no unexplained weight change : See HPI Exam: BP 127/76 Pulse 66 General Appearance: Pleasant, well appearing, no acute distress RECTAL EXAM:Normal rectal tone, prostate 30 gm, smooth, with no nodules Neuro: Alert and oriented, normal gait Psych: Normal affect and mentation Skin: Warm, dry, intact Musculoskeletal: Moving all extremities Labs: Glucose (mg/dL) Date Value 09/04/2021 84 07/08/2021 102 Potassium (mmol/L) Date Value 09/04/2021 4.8 07/08/2021 4.9 Sodium (mmol/L) Date Value 09/04/2021 132 07/08/2021 133 Chloride (mmol/L) Date Value 09/04/2021 93 07/08/2021 99 CO2 (mmol/L) Date Value 09/04/2021 26 07/08/2021 25 Creatinine (mg/dL) Date Value 09/04/2021 1.32 07/08/2021 1.19 BUN (mg/dL) Date Value 09/04/2021 26 07/08/2021 23 Anion Gap (mmol/L) Date Value 09/04/2021 13 07/08/2021 9 Calcium (mg/dL) Date Value 07/08/2021 10.1 Calcium, Total (mg/dL) Date Value 09/04/2021 10.0 Hemoglobin (g/dL) Date Value 12/06/2020 13.6 Hematocrit (%) Date Value 12/06/2020 39.2 WBC (k/uL) Date Value 12/06/2020 6.70 Platelet Count (k/uL) Date Value 12/06/2020 295 Lab Results Component Value Date PSA 1.07 02/12/2021 PSA 0.86 07/01/2020 PSA 2.12 06/26/2019 PSA 1.33 10/10/2014 URINE POC GLUCOSE UA (POCT) 100 11/11/2021 BILIRUBIN UA (POCT) Negative 11/11/2021 KETONE UA (POCT) Negative 11/11/2021 SPECIFIC GRAVITY UA (POCT) 1.015 11/11/2021 HEMOGLOBIN/BLOOD UA (POCT) Negative 11/11/2021 PH UA (POCT) 6.5 11/11/2021 PROTEIN UA (POCT) Negative 11/11/2021 UROBILINOGEN UA (POCT) 0.2 11/11/2021 NITRITE UA (POCT) Negative 11/11/2021 LEUKOCYTES UA (POCT) Negative 11/11/2021 COLOR UA (POCT) Yellow 11/11/2021 CLARITY UA (POCT) Clear 11/11/2021 Assessment/Recommendation: (N40.1, N13.8) BPH with obstruction/lower urinary tract symptoms (primary encounter diagnosis) (N52.9) Erectile dysfunction, unspecified erectile dysfunction type 71 year old male with BPH/LUTS s/p failed urolift. Now s/p holep and removal of urolift implants. Good flow, emptying well, no GH, no leak. Path neg. Postop PSA was fine. RYAN benign, needs repeat PSA. UA neg. Regarding ED, prev on viagra, now on tadalafil, not working well. Of note, is on zoloft. Will checkT and refer to men's health. -PSA -testosterone -cont tadalafil for now -referral to ED team -fu 1 year with uroflow Medical Decision Making: Problems: Moderate: 2+ stable chronic illnesses Data: Unique test result(s) reviewed: 2 Unique test(s) ordered: 2 Medical Decision Making Level: 4 - Moderate The impression as well as the plan, as outlined, were extensively discussed with the patient who voiced understanding. All questions were answered to their stated satisfaction. Scribe Attestation: By signing my name below, I attest that this documentation has been prepared under the direction and in the presence of Barbara Orantes MD. Electronically signed by Lele Lund acting as scribe for Barbara Orantes MD. November 11, 2021 I agree with the Chief Complaint, ROS, and Past Histories independently gathered by the clinical learning support resource room teacher and the remaining scribed note accurately describes my personal service to the patient. Barbara Orantes documented in this encounterCincinnati [facility]04-20-2022 Miscellaneous Notes* Telephone Encounter - Abril Fan LPN - 10/15/2021 5:13 PM EDT Pt was seen in office today. Abril Fan LPN * Telephone Encounter - Evi Solorzano Ma - 10/15/2021 9:21 AM EDT Pt sent mychart message notifying him that PCP requests OV to discuss. Offered to help assist in making an appt. Wait on pt response. Evi Solorzano Ma * Telephone Encounter - Abril Vallecillo LPN - 10/14/2021 3:36 PM EDT Phoned patient and left detailed message for patient on secure voicemail to return call and schedule an office visit to discuss concerns and medication adjustments. * Telephone Encounter - Evelina Shafer MD - 10/14/2021 3:07 PM EDT Based on the amount of information in these 2 messages, I would have him schedule an office visit with me to discuss his concerns and medication adjustments. * Telephone Encounter - Evi Solorzano Ma - 10/14/2021 10:59 AM EDT Message 2/2. Evi Solorzano Ma documented in this encounterCincinnati [facility]04-06-2022 History of Present illness Narrative* Angie Li, ACCOUNTING PROFESSOR.REGULATORY SUBMISSIONS SPECIALIST - 10/01/2021 11:13 AM EDT 10/01/2021 Patient presents with: Medication Follow-up: Increased zoloft 3 weeks ago SUBJECTIVE: This is a 71 year old that is here today for Above Complaints. Since last office appointment he increased his dose of Zoloft to 75 mg. He reports feeling much improved on this dose. Eating and sleeping well. Attending counseling ever two months. Denies SI, HI orinsomnia. Little or no interest or pleasure in doing things 0 Not at all Feeling down, depressed, or hopeless 0 Not at all Trouble falling or staying asleep, or sleeping too much 1 Several days Feeling tired or having little energy 0 Not at all Poor appetite or overeating 0 Not at all Feeling bad about yourself- or that you are a failure or having let yourself or your family down 0 Not at all Trouble concentrating on things, such as reading the newpaper or watching television 0 Not at all Moving or speaking so slowly that other people could have noticed? Or the opposite- being so fidgety or restless that you have been moving around a lot more than usual 0 Not at all Thoughts that you would be better off or of hurting yourself in some way 0 Not at all PHQ9P Score 1 If you checked off any problems, how difficult have these problems made it for you to do your work,take care of things at home, or get along with other people? Not difficult at all PAST MEDICAL HISTORY Diagnosis Date Allergic rhinitis due to other allergen Basal cell carcinoma Shoulder BPH (benign prostatic hyperplasia) Erectile dysfunction Genital herpes Other and unspecified hyperlipidemia Plantar fasciitis BB Dr. Gerard Statin intolerance Type II or unspecified type diabetes mellitus without mention of complication, not stated as uncontrolled Varicose veins of both lower extremities s/p laser removal ALLERGIES Benadryl [Diphenhydramine], Flomax [Tamsulosin], Lipitor [Atorvastatin], Penicillins, Thiazides, and Trazodone MEDICATIONS Current Outpatient Medications Medication Sig Tadalafil (CIALIS) 2.5 mg tab Take 1 tablet by mouth once daily. sertraline (ZOLOFT) 50 mg tablet Take 1 tablet by mouth once daily. (Patient taking differently: Take 50 mg by mouth once daily. Taking 75mg daily. ) lisinopril 2.5 mg tablet Take 1 tablet by mouth once daily. Magnesium 250 mg tab Take 500 mg by mouth once daily. metFORMIN (GLUCOPHAGE) 1,000 mg tablet Take 1 tab by mouth in am and 1/2 tablet in evening. fluticasone (FLONASE) 50 mcg/actuation nasal spray Use 2 Sprays in each nostril once daily. Rinse mouth after use. blood sugar diagnostic (FREESTYLE LITE STRIPS) test strip Test blood sugar(s) 1 times daily. E11.9-type 2 diabetes mellitus, no insulin LORATADINE (CLARITIN ORAL) Take by mouth. Lancets (ACCU-CHEK MULTICLIX LANCET) lancets check blood sugar as directed every other day 250.00 Non Insulin dependent No current facility-administered medications for this visit. Medications and allergies reviewed by this provider. SOCIAL HISTORY Social History Tobacco Use Smoking status: Never Smoker Smokeless tobacco: Never Used Substance Use Topics Alcohol use: Not Currently Comment: occasionally Drug use: Yes Types: Marijuana REVIEW OF SYSTEMS All other reviewed and negative other than HPI. OBJECTIVE: BP 118/82 Pulse 70 Resp 18 Wt 89.9 kg (198 lb 3.2 oz) SpO2 100% BMI 27.07 kg/m . Vital signs reviewed by this provider. APPEARANCE Well appearing, alert, in no acute distress, well-hydrated, well nourished. PSYCH: Posture and motor behavior: normal posture and motor behavior Dress, grooming, personal hygiene: normal dress and grooming Facial expression: good eye contact Speech: normal speech Mood: cheerful Coherency and relevance of thought: normal thought processes Memory: normal memory ADVANCE DIRECTIVE DISCUSSION Never done HEMOGLOBIN/HEMATOCRIT due on 12/06/2021 URINE ALBUMIN:CREATININE RATIO due on 12/31/2021 HBA1C due on 01/05/2022 LDL CHOLESTEROL due on 02/12/2022 DILATED RETINAL EXAM due on 07/02/2022 DIABETIC FOOT EXAM due on 07/07/2022 ANNUAL PCP TEAM CHRONIC DISEASE VISIT due on 08/14/2022 DEPRESSION SCREENING due on 08/14/2022 SERUM CREATININE due on 09/04/2022 BP CONTROLLED (<130/80) due on 10/01/2022 COLORECTAL CANCER SCREENING due on 01/20/2024 DTAP,TDAP,TD(3 - Td or Tdap) due on 12/18/2026 INFLUENZA Completed HEPATITIS C SCREENING Completed PNEUMOVAX AGE 65 AND OVER WITH 5YR LOOKBACK Completed SHINGRIX VACCINE Completed COVID-19 VACCINE Completed MENINGOCOCCAL CONJUGATE Aged Out ASSESSMENT/PLAN: 1. Anxiety with depression - ICD9: 300.4, ICD10: F41.8 - improved - SERTRALINE 50 MG TABLET - follow-up as scheduled, sooner if needed Angie NuñezlogEVARISTO pavon.REGULATORY SUBMISSIONS SPECIALIST Prescription instructions reviewed with patient as applicable. Patient advised if symptoms do not improve or if symptoms worsen sooner, to contact their primary care physician. Potential red flag symptoms discussed with the patient. Reviewed appropriate action plan to take if red flag symptoms occur. Patient agreeable to treatment plan. [facility] History of Present illness Narrative* Kiersten Rich RN - 09/24/2021 1:45 PM EDT PRIMARY CARE COORDINATION QUICK NOTE Provider Action/FYI Insight Intro message sent. Patient identified by name and date . documented in this encounterC[facility] Evaluation note* Diagnosis Stage 3a chronic kidney disease (HCC)- Primary documented in this encounter [facility] Miscellaneous Notes* Telephone Encounter - Evelina Shafer MD - 08/15/2021 4:37 PM EST We are typically more concerned if the vitamin B12 is low instead of high. If he is taking a multivitamin with B12, he may continue on it at this time. His TSH is in the normal range on his most recent labs. I would not do anything further for this atthis time. * Telephone Encounter - Kayden Oates LPN - 08/15/2021 12:34 PM EST TC to pt, notified of results/provider response. Pt would like PCP to know that he noticed his multivitamin contains a high amount of Vitamin B 12, pt asking if he should continue taking multivitaminthat contains B-12. Also, see pt [facility] message from earlier today. He is questioning his TSH. TC to lab client services, they are adding on Vit D. Kayden Oates LPN * Telephone Encounter - Evelina Shafer MD - 08/15/2021 8:15 AM EST Normal vitamin B12 level and TSH. It looks like his vitamin D level was not drawn at the same time as his other labs. Please call lab to see if this can be added on. documented in this encounterC[facility] NoteHNO ID: [id number] Author: Nick Bruce MD Service: ? Author Type: Physician Type: Progress Notes Filed: 07/24/2021 2:31 PM Note Text: Outpatient Consult Osman Allison [address] [facility] [address] [facility] [id number] Today's Date: 07/24/2021 CC: LBP and NECK PAIN HPI: Osman Padgett is a 71 year old male who presents with h/o CKD III, peripheral neuropathy form Diabetes pain in the cervical spine and pain in the lumbar spine with radiation into the left lower limb into the posterior thigh. No tingling Pain TODAY:2/10; WORST: 2/10; on a scale of 0-10. Patient is currently on date of last PT 2019. The patient has previously been on the following pain medications None. Treating Physicians: Dr Lozano PhD for Cognitive, Dr Osman Allison in Neurology 2021 Prior Spinal Surgery: None. 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 All prescriptions have been APPROPRIATELY filled. No suspicious activity was identified. 07/24/2021 by Nick Bruce MD Personally Reviewed Plain films cervical on 06/30/2021 with mild C5-6 and C6-7 spondylosis. No spondylolisthesis Personally Reviewed Plain films lumbosacral on 06/30/2021 compared 01/08/2014 with grade 2 spondylolisthesis The above imaging studies were personally reviewed with the patient. DIAGNOSIS: M47.812 Cervical spondylosis without myelopathy (primary encounter diagnosis) M54.50, G89.29 Chronic bilateral low back pain without sciatica M43.10 Spondylolisthesis, unspecified spinal region M72.2 Plantar fasciitis, bilateral ASSESSMENT: Osman Padgett is a 71 year old male with likely diabetic neuropathy with stable L5-S1 spondylolisthesis and mild chronic mechanical and axial pain Symmetric hyperreflexia PLAN: 1) Imaging Studies: none 2) Therapy/Rehabilitation: Offered PT in [place]. Patient prefers to do home exercise program 3) Pharmacological Management: none 4) Spine/Surgical Interventions: none 5) Follow -up: prn 6) Future treatment considerations: CT vs MRI lumbar spine for interventional planning. EMG LE Teaching Statement I have interviewed and examined the patient and confirm the pertinent findings. I have discussed the case with Medical Spine Fellow, Jaun Das DO, and agree with the findings and plan as documented. Nick Bruce MD Staff Physician [facility] The patient was seen at the request of Dr. Osman Allison Jr. for consultation regarding problem and diagnosis delineated above. Additionally, the findings AND recommendations will be communicated back to the referring physician via [place] Postal Service and/or shared electronic medical record when possible. CC: Osman Allison Jr. Imaging Ordered: None Medical Decision Making: Problems: Moderate: 2+ stable chronic illnesses Data: Unique source(s) for external note(s) reviewed: 3+ Unique test result(s) reviewed: 3+ Independent interpretation of test from other physician/QHCP Discussed management or test w/ external physician/QHCP/source Risk: Low: Low risk from testing/treatment Moderate: Drug management Medical Decision Making Level: 4 - ModerateCleveland Clinic Hillcrest [id number] NoteHNO ID: [id number] Author: Jaun Das DO Service: ? Author Type: Fellow Type: Progress Notes Filed: 07/24/2021 2:31 PM Note Text: Sp[facility] Low Back Pain - Chronic (> 12 weeks) Initial Exam SUBJECTIVE HISTORY OF PRESENT ILLNESS: Osman Padgett is a 71 year old male who presents with a chief complaint of low back pain and is seen in consultation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 protected by the Federal Confidentiality of Alcohol and Drug Abuse Patient Records regulations: The Federal rules restrict any use of the information to criminally investigate or prosecute any alcohol or drug abuse patient.[facility] CenterIn the event this information is protected by the Federal Confidentiality of Alcohol and Drug Abuse Patient Records regulations: The Federal rules restrict any use of the information to criminally investigate or prosecute any alcohol or drug abuse patient.[facility] CenterIn the event this information is protected by the Federal Confidentiality of Alcohol and Drug Abuse Patient Records regulations: The Federal rules restrict any use of the information to criminally investigate or prosecute any alcohol or drug abuse patient.[facility] CenterIn the event this information is protected by the Federal Confidentiality of Alcohol and Drug Abuse Patient Records regulations: The Federal rules restrict any use of the information to criminally investigate or prosecute any alcohol or drug abuse patient.[facility] CenterIn the event this information is protected by the Federal Confidentiality of Alcohol and Drug Abuse Patient Records regulations: The Federal rules restrict any use of the information to criminally investigate or prosecute any alcohol or drug abuse patient.[facility] CenterIn the event this information is protected by the Federal Confidentiality of Alcohol and Drug Abuse Patient Records regulations: The Federal rules restrict any use of the information to criminally investigate or prosecute any alcohol or drug abuse patient.[facility] CenterIn the event this information is protected by the Federal Confidentiality of Alcohol and Drug Abuse Patient Records regulations: The Federal rules restrict any use of the information to criminally investigate or prosecute any alcohol or drug abuse patient.[facility] CenterIn the event this information is protected by the Federal Confidentiality of Alcohol and Drug Abuse Patient Records regulations: The Federal rules restrict any use of the information to criminally investigate or prosecute any alcohol or drug abuse patient.[facility] CenterIn the event this information is protected by the Federal Confidentiality of Alcohol and Drug Abuse Patient Records regulations: The Federal rules restrict any use of the information to criminally investigate or prosecute any alcohol or drug abuse patient.[facility] CenterIn the event this information is protected by the Federal Confidentiality of Alcohol and Drug Abuse Patient Records regulations: The Federal rules restrict any use of the information to criminally investigate or prosecute any alcohol or drug abuse patient.[facility] CenterIn the event this information is protected by the Federal Confidentiality of Alcohol and Drug Abuse Patient Records regulations: The Federal rules restrict any use of the information to criminally investigate or prosecute any alcohol or drug abuse patient.[facility] CenterIn the event this information is protected by the Federal Confidentiality of Alcohol and Drug Abuse Patient Records regulations: The Federal rules restrict any use of the information to criminally investigate or prosecute any alcohol or drug abuse patient.[facility] CenterIn the event this information is protected by the Federal Confidentiality of Alcohol and Drug Abuse Patient Records regulations: The Federal rules restrict any use of the information to criminally investigate or prosecute any alcohol or drug abuse patient.[facility] CenterIn the event this information is protected by the Federal Confidentiality of Alcohol and Drug Abuse Patient Records regulations: The Federal rules restrict any use of the information to criminally investigate or prosecute any alcohol or drug abuse patient.[facility] CenterIn the event this information is protected by the Federal Confidentiality of Alcohol and Drug Abuse Patient Records regulations: The Federal rules restrict any use of the information to criminally investigate or prosecute any alcohol or drug abuse patient.[facility] CenterIn the event this information is protected by the Federal Confidentiality of Alcohol and Drug Abuse Patient Records regulations: The Federal rules restrict any use of the information to criminally investigate or prosecute any alcohol or drug abuse patient.[facility] CenterIn the event this information is protected by the Federal Confidentiality of Alcohol and Drug Abuse Patient Records regulations: The Federal rules restrict any use of the information to criminally investigate or prosecute any alcohol or drug abuse patient.[facility] CenterIn the event this information is protected by the Federal Confidentiality of Alcohol and Drug Abuse Patient Records regulations: The Federal rules restrict any use of the information to criminally investigate or prosecute any alcohol or drug abuse patient.[facility] CenterIn the event this information is protected by the Federal Confidentiality of Alcohol and Drug Abuse Patient Records regulations: The Federal rules restrict any use of the information to criminally investigate or prosecute any alcohol or drug abuse patient.[facility] CenterIn the event this information is protected by the Federal Confidentiality of Alcohol and Drug Abuse Patient Records regulations: The Federal rules restrict any use of the information to criminally investigate or prosecute any alcohol or drug abuse patient.[facility] CenterIn the event this information is protected by the Federal Confidentiality of Alcohol and Drug Abuse Patient Records regulations: The Federal rules restrict any use of the information to criminally investigate or prosecute any alcohol or drug abuse patient.[facility] CenterIn the event this information is protected by the Federal Confidentiality of Alcohol and Drug Abuse Patient Records regulations: The Federal rules restrict any use of the information to criminally investigate or prosecute any alcohol or drug abuse patient.[facility] CenterIn the event this information is protected by the Federal Confidentiality of Alcohol and Drug Abuse Patient Records regulations: The Federal rules restrict any use of the information to criminally investigate or prosecute any alcohol or drug abuse patient.[facility] CenterIn the event this information is protected by the Federal Confidentiality of Alcohol and Drug Abuse Patient Records regulations: The Federal rules restrict any use of the information to criminally investigate or prosecute any alcohol or drug abuse patient.[facility] CenterIn the event this information is protected by the Federal Confidentiality of Alcohol and Drug Abuse Patient Records regulations: The Federal rules restrict any use of the information to criminally investigate or prosecute any alcohol or drug abuse patient.[facility] CenterIn the event this information is protected by the Federal Confidentiality of Alcohol and Drug Abuse Patient Records regulations: The Federal rules restrict any use of the information to criminally investigate or prosecute any alcohol or drug abuse patient.[facility] CenterIn the event this information is protected by the Federal Confidentiality of Alcohol and Drug Abuse Patient Records regulations: The Federal rules restrict any use of the information to criminally investigate or prosecute any alcohol or drug abuse patient.[facility] CenterIn the event this information is protected by the Federal Confidentiality of Alcohol and Drug Abuse Patient Records regulations: The Federal rules restrict any use of the information to criminally investigate or prosecute any alcohol or drug abuse patient.[facility] CenterIn the event this information is protected by the Federal Confidentiality of Alcohol and Drug Abuse Patient Records regulations: The Federal rules restrict any use of the information to criminally investigate or prosecute any alcohol or drug abuse patient.[facility] CenterIn the event this information is protected by the Federal Confidentiality of Alcohol and Drug Abuse Patient Records regulations: The Federal rules restrict any use of the information to criminally investigate or prosecute any alcohol or drug abuse patient.[facility] CenterIn the event this information is protected by the Federal Confidentiality of Alcohol and Drug Abuse Patient Records regulations: The Federal rules restrict any use of the information to criminally investigate or prosecute any alcohol or drug abuse patient.[facility] CenterIn the event this information is protected by the Federal Confidentiality of Alcohol and Drug Abuse Patient Records regulations: The Federal rules restrict any use of the information to criminally investigate or prosecute any alcohol or drug abuse patient.[facility] Care Teams (unrecognized sec tion and content) Electrical Tryout Person Relationship Specialty Start Date End Date Evelina Shafer MD [address] [place] [address] PCP - General Family Practice 06/26/19 Electrical Tryout Person Relationship Specialty Start Date End Date Evelina Shafer MD [address] [place] [address] PCP - General Family Practice 06/26/19 [place] [address] [place] [address] Chairman & Chief Executive Officer 09/25/21 Electrical Tryout Person Relationship Specialty Start Date End Date Evelina Shafer MD [address] [place] [address] PCP - General Family Practice 06/26/19 [place] [address] [place] [address] Chairman & Chief Executive Officer 09/25/21 Electrical Tryout Person Relationship Specialty Start Date End Date Evelina Shfaer MD [address] [facility] [place] [address] PCP - General Family Practice 06/26/19 Kiersten Rich, FARZANA [address] [place] [address] Chairman & Chief Executive Officer 09/25/21 Electrical Tryout Person Relationship Specialty Start Date End Date Evelina Shafer MD [address] [place] [address] PCP - General Family Practice 06/26/19 Angelina Mims RN [address] [place] [address] Chairman & Chief Executive Officer 11/28/21 Electrical Tryout Person Relationship Specialty Start Date End Date Evelina Shafer MD [address] [place] [address] PCP - General Family Practice 06/26/19 Angelina Mims RN [address] [place] [address] Chairman & Chief Executive Officer 11/28/21 Electrical Tryout Person Relationship Specialty Start Date End Date Evelina Shafer MD [address] [place] [address] PCP - General Family Practice 06/26/19 Angelina Mims RN [address] [place] [address] Chairman & Chief Executive Officer 11/28/21 Electrical Tryout Person Relationship Specialty Start Date End Date Evelina Shafer MD [address] [facility] [address] PCP - General Family Practice 06/26/19 Angelina Mims RN [address] [place] [address] Chairman & Chief Executive Officer 11/28/21 Electrical Tryout Person Relationship Specialty Start Date End Date Evelina Shafer MD [address] [place] [address] PCP - General Family Practice 06/26/19 Angelina Mims, RN [address] [place] [address] Chairman & Chief Executive Officer 11/28/21 Electrical Tryout Person Relationship Specialty Start Date End Date Evelina Shafer MD [address] [facility] [place] [address] PCP - General Family Practice 06/26/19 Kiersten Rich, FARZANA [address] [place] [address] Chairman & Chief Executive Officer 09/25/21 Angelina Mims RN [address] [place] [address] Chairman & Chief Executive Officer 11/28/21 Electrical Tryout Person Relationship Specialty Start Date End Date Evelina Shafer MD [address] [facility] [address] PCP - General Family Practice 06/26/19 Angelina Mims RN [address] [place] [address] Chairman & Chief Executive Officer 11/28/21 Electrical Tryout Person Relationship Specialty Start Date End Date Evelina Shafer MD [address] [facility] [address] PCP - General Family Practice 06/26/19 Angelina Mims RN [address] [place] [address] Chairman & Chief Executive Officer 11/28/21 Electrical Tryout Person Relationship Specialty Start Date End Date Evelina Shafer MD [address] [facility] [address] PCP - General Family Practice 06/26/19 Angelina Mims RN [address] [place] [address] Chairman & Chief Executive Officer 11/28/21 Electrical Tryout Person Relationship Specialty Start Date End Date Evelina Shafer MD [address] [facility] [place] [address] PCP - General Family Medicine 06/26/19 Angelina Mims, RN [address] [place] [address] Chairman & Chief Executive Officer 11/28/21 Electrical Tryout Person Relationship Specialty Start Date End Date Evelina Shafer MD [address] [facility] [place] [address] PCP - General Family Medicine 06/26/19 Angelina Mims, RN [address] [place] [address] Chairman & Chief Executive Officer 11/28/21 Electrical Tryout Person Relationship Specialty Start Date End Date Evelina Shafer MD [address] [facility] [place] [address] PCP - General Family Medicine 06/26/19 Angelina Mims, FARZANA [address] [facility] [place] [address] Chairman & Chief Executive Officer 11/28/21 Electrical Tryout Person Relationship Specialty Start Date End Date Evelina Shafer MD [address] [facility] [place] [address] PCP - General Family Medicine 06/26/19 Angelina Mims, RN [address] [facility] [place] [address] Chairman & Chief Executive Officer 11/28/21 Electrical Tryout Person Relationship Specialty Start Date End Date Evelina Shafer MD [address] [facility] [place] [address] PCP - General Family Medicine 06/26/19 Angelina Mims RN [address] [facility] [place] [address] Chairman & Chief Executive Officer 11/28/21 Electrical Tryout Person Relationship Specialty Start Date End Date Evelina Shafer MD [address] [facility] [place] [address] PCP - General Family Medicine 06/26/19 Angelina Mims, FARZANA [address] [place] [address] Chairman & Chief Executive Officer 11/28/21 Electrical Tryout Person Relationship Specialty Start Date End Date Evelina Shafer MD [address] [place] [address] PCP - General Family Medicine 06/26/19 Angelina Mims RN [address] [place] [address] Chairman & Chief Executive Officer 11/28/21 Electrical Tryout Person Relationship Specialty Start Date End Date Evelina Shafer MD [address] [place] [address] PCP - General Family Medicine 06/26/19 Petty Whittaker, FARZANA [facility] [address] [place] [address] Chairman & Chief Executive Officer 11/28/21 Electrical Tryout Person Relationship Specialty Start Date End Date Evelina Shafer MD [address] [place] [address] PCP - General Family Medicine 06/26/19 Petty Whittaker, FARZANA [facility] [address] [place] [address] Chairman & Chief Executive Officer 11/28/21 Electrical Tryout Person Relationship Specialty Start Date End Date Evelina Shafer MD [address] [place] [address] PCP - General Family Medicine 06/26/19 Petty Whittaker, FARZANA [facility] [address] [place] [id number] Chairman & Chief Executive Officer 11/28/21 Electrical Tryout Person Relationship Specialty Start Date End Date Evelina Shafer MD [address] [place] [address] PCP - General Family Medicine 06/26/19 Petty Whittaker, FARZANA [facility] [address] [place] [phone] Chairman & Chief Executive Officer 11/28/21 Electrical Tryout Person Relationship Specialty Start Date End Date Evelina Shafer MD [address] [place] [address] PCP - General Family Medicine 06/26/19 Petty Whittaker, FARZANA [facility] [address] [place] [address] Chairman & Chief Executive Officer 11/28/21 Electrical Tryout Person Relationship Specialty Start Date End Date Evelina Shafer MD [address] [place] [address] PCP - General Family Medicine 06/26/19 Petty Whittaker, FARZANA [facility] [address] [place] [address] Chairman & Chief Executive Officer 11/28/21 Electrical Tryout Person Relationship Specialty Start Date End Date Evelina Shafer MD [address] [place] [address] PCP - General Family Medicine 06/26/19 Petty Whittaker, FARZANA [facility] [address] [place] [address] Chairman & Chief Executive Officer 04/28/22 Electrical Tryout Person Relationship Specialty Start Date End Date Evelina Shafer MD [address] [place] [address] PCP - General Family Medicine 06/26/19 Petty Whittaker, FARZANA [facility] [address] [place] [address] Chairman & Chief Executive Officer 04/28/22 Electrical Tryout Person Relationship Specialty Start Date End Date Evelina Shafer MD [address] [place] [address] PCP - General Family Medicine 06/26/19 Petty Whittaker, FARZANA [facility] [address] [place] [address] Chairman & Chief Executive Officer 04/28/22 Electrical Tryout Person Relationship Specialty Start Date End Date Evelina Shafer MD [address] [place] [address] PCP - General Family Medicine 06/26/19 Petty Whittaker RN [facility] [address] [place] [address] Chairman & Chief Executive Officer 04/28/22 Electrical Tryout Person Relationship Specialty Start Date End Date Evelina Shafer MD [address] [place] [address] PCP - General Family Medicine 06/26/19 Petty Whittaker RN [facility] [address] [place] [address] Chairman & Chief Executive Officer 04/28/22 Electrical Tryout Person Relationship Specialty Start Date End Date Evelina Shafer MD [address] [place] [address] PCP - General Family Medicine 06/26/19 Petty Whittaker RN [facility] [address] [place] [address] Chairman & Chief Executive Officer 04/28/22 Electrical Tryout Person Relationship Specialty Start Date End Date Evelina Shafer MD [address] [place] [address] PCP - General Family Medicine 06/26/19 Petty Whittaker RN [facility] [address] [place] [phone] Chairman & Chief Executive Officer 04/28/22 Electrical Tryout Person Relationship Specialty Start Date End Date Evelina Shafer MD [address] [place] [address] PCP - General Family Medicine 06/26/19 Petty Whittaker RN [facility] [address] [place] [phone] Chairman & Chief Executive Officer 04/28/22 Electrical Tryout Person Relationship Specialty Start Date End Date Evelina Shafer MD [address] [place] [address] PCP - General Family Medicine 06/26/19 Petty Whittaker RN [facility] [address] [place] [phone] Chairman & Chief Executive Officer 04/28/22 Electrical Tryout Person Relationship Specialty Start Date End Date Evelina Shafer MD [address] [place] [address] PCP - General Family Medicine 06/26/19 Petty Whittaker, FARZANA [facility] [address] [place] [address] Chairman & Chief Executive Officer 04/28/22 Electrical Tryout Person Relationship Specialty Start Date End Date Evelina Shafer MD [address] [place] [address] PCP - General Family Medicine 06/26/19 Petty Whittaker, FARZANA [facility] [address] [place] [address] Chairman & Chief Executive Officer 04/28/22 Electrical Tryout Person Relationship Specialty Start Date End Date Evelina Shafer MD [address] [place] [address] PCP - General Family Medicine 06/26/19 Petty Whittaker, FARZANA [facility] [address] [place] [address] Chairman & Chief Executive Officer 04/28/22 Reason for Visit (unrecogniz ed section and content) Reason Comments Medication Follow-up Increased zoloft 3 weeks ago Reason Comments Follow Up Reason Onset Date Comments InSight Home Monitoring 11/28/2021 Update Reason Comments Established Patient Pain Reason Comments Results Reason Comments ER F/U Reason Comments TRUPTI (Acute Kidney Injury) Reason Comments Nausea fatigue x 1 day, + e xposure Reason Onset Date Comments Refill Request 04/16/2022 Reason Comments Psg Check In (Adult) Reason Comments Blood Pressure Reports 144/87 this am and has BP cuff from home with him. Reason Onset Date Comments Refill Request 04/20/2022 Reason Comments Follow Up 3 month Reason Comments Established Patient Reason Comments Discussion Medication Reason Comments Established Patient Trouble falling and/or staying asleep Reason Comments Refill Request Reason Comments Established Patient Medication Follow-up Reason Comments Follow Up 3 month Reason Comments Appointment Reason Comments Radiology CT Specialty Diagnoses / Procedures Referred By Contac t Referred To Contact CT IMAGING Diagnoses Gross hematuria Procedures CT UROGRAM WO/W IVCON CT ABD & PELVIS W/O CONTRST 1+ BODY REGNS Urol [facility] [address] [place] [address] [place] [address] Referral ID Status Reason Start Date Expiration Date V isits Requested Visits Authorized [id number] Closed Auto-Generate d Referral 05/18/2022 06/17/2023 1 1 Reason Onset Date Comments cdm outreach 05/03/2023 Telephonic cdm FOR RECORDS PERTAINING TO PATIENTS WHO ARE OR HAVE BEEN ENROLLED IN A CHEMICAL DEPENDENCY/SUBSTANCEABUSE PROGRAM, SOME INFORMATION MAY BE OMITTED. This clinical summary was aggregated from multiple sources. Caution should be exercised in using it in the provision of clinical care. This summary normalizes information from multiple sources, and as a consequence, information in this document may materially change the coding, format and clinical context of patient data. In addition, data may be omitted in some cases. CLINICAL DECISIONS SHOULD BE BASED ON THE PRIMARY CLINICAL RECORDS. [employer] provides no warranty or guarantee of the accuracy or completeness of information in this document.
[2023-07-22 15:30] LABS: Absolute Lymphocyte Count 1.31 X10^3/uL (0.83-4.51); Absolute Neutrophil Count 4.1 X10^3/uL (2.0-7.7); Basophil# 0.05 X10^3/uL; Basophil% 0.8 % (0-1); Eosinophil# 0.31 X10^3/uL; Eosinophils% 4.8 % (0-5); Hematocrit 36.7 % (40-54); Lymphocyte # 1.31 X10^3/ul (0.83-4.51); Lymphocyte % 20.3 % (19-41); Mean Corp Hgb Conc 32.7 g/dL (32-36); Mean Corpuscular Hgb 30.5 pg (27.0-32.0); Mean Corpuscular Volume 93.4 fL (80-94); Mean Platelet Vol. 8.7 fl (6.2-12.0); Monocyte# 0.62 X10^3/uL; Monocyte% 9.6 % (0-10); NRBC Flagged by Analyzer 0 % (0-5); Neutrophil # 4.14 X10^3/uL (2.7-7.7); Platelet Count 295 K/mm3 (150-450); RBC Distribution Width CV 12.4 % (11.6-14.6); RBC Distribution Width SD 43.1 fl (35.1-43.9); Red Blood Count 3.93 M/mm3 (4.6-6.2); White Blood Count 6.5 K/mm3 (4.4-11.0)
[2023-07-22 16:12] LABS: Urine Sodium 68 mmol/L (Not Establ.)
[2023-07-22 16:23] LABS: Vitamin B12 1500 pg/mL (211-911)
[2023-07-22 16:35] LABS: Osmolality, Serum 297 mOsm/KG (280-301); Osmolality, Urine 613 mOsm/KG
[2023-07-22 16:54] LABS: AST(SGOT) 15 U/L (15-37); Alanine Aminotransfer ALT/SGPT 26 U/L (16-61); Albumin, Serum 3.9 g/dL (3.2-5.0); Alkaline Phosphatase 52 U/L (45-117); Anion Gap 7 (5-15); BUN 29 mg/dL (7-18); BUN/Creat Ratio 21.2 RATIO (10-20); Calcium,Total 9.5 mg/dL (8.5-10.1); Chloride 104 mmol/L (98-107); Creatinine, Serum 1.37 mg/dL (0.70-1.30); EST Glomerular Filtration Rate 54 mL/min (>60); Est Glom Filt Rate - Afr Amer 66 mL/min (>60); Ferritin 87 ng/mL (26-388); Globulin 3.9 g/dL (2.2-4.2); Glucose 94 mg/dL (74-106); Potassium 4.9 mmol/L (3.5-5.1); Protein, Total 7.8 g/dL (6.4-8.2); Sodium Level 136 mmol/L (136-145); Thyroid Stim Hormone (TSH) 0.31 uIU/mL (0.358-3.74)
[2023-07-24 11:09] LABS: Lyme Scn Total Ab w/Rflx Negative (Negative)
== END | disposition home or self-care (01) ==
LOC: MFPLAB 14:18
PROVIDERS: PCP Family Medicine; Visit Provider Family Medicine
DX: E22.2 Syndrome of inappropriate secretion of antidiuretic hormone (principal); E11.40 Type 2 diabetes mellitus with diabetic neuropathy, unspecified; G25.81 Restless legs syndrome
CPT/HCPCS: 36415; 80053; 82607; 82728; 82746; 83930; 83935; 84300; 84443; 85025; 86618

== ENCOUNTER → 2023-09-07 | Outpatient (CLI) | payer MEDICARE, OTHER, SELFPAY ==
[2023-09-07 15:40] LABS: Urine Sodium 70 mmol/L (Not Establ.)
[2023-09-07 20:20] LABS: AST(SGOT) 17 U/L (15-37); Alanine Aminotransfer ALT/SGPT 26 U/L (16-61); Albumin, Serum 3.8 g/dL (3.2-5.0); Alkaline Phosphatase 51 U/L (45-117); Anion Gap 9 (5-15); BUN 28 mg/dL (7-18); BUN/Creat Ratio 19.2 RATIO (10-20); Chloride 99 mmol/L (98-107); Creatinine, Serum 1.46 mg/dL (0.70-1.30); EST Glomerular Filtration Rate 50 mL/min (>60); Est Glom Filt Rate - Afr Amer 61 mL/min (>60); Free T3 2.6 pg/mL (2.18-3.98); Globulin 3.8 g/dL (2.2-4.2); Glucose 129 mg/dL (74-106); Potassium 4.8 mmol/L (3.5-5.1); Protein, Total 7.6 g/dL (6.4-8.2); Sodium Level 133 mmol/L (136-145); T4 Free Direct 0.74 ng/dL (0.76-1.46); Thyroid Stim Hormone (TSH) 0.33 uIU/mL (0.358-3.74)
[2023-09-07 22:49] LABS: Osmolality, Urine 375 mOsm/KG
[2023-09-07 22:50] LABS: Osmolality, Serum 301 mOsm/KG (280-301)
[2023-09-09 16:10] LABS: Thyroglobulin Antibody < 1.0 IU/mL (0.0-0.9); Thyroid Peroxidase AB 26 IU/mL (0-34)
== END | disposition home or self-care (01) ==
LOC: MFPLAB 11:37
PROVIDERS: PCP Family Medicine; Visit Provider Family Medicine
DX: R79.89 Other specified abnormal findings of blood chemistry (principal); E87.1 Hypo-osmolality and hyponatremia
CPT/HCPCS: 36415; 80053; 83930; 83935; 84300; 84439; 84443; 84481; 86376; 86800

== ENCOUNTER → 2023-09-22 | Outpatient (CLI) | payer MEDICARE, OTHER, SELFPAY ==
--- NOTE | 2023-09-22 12:43 | MRI_ITS ---
EXAM: MR HEAD WITHOUT AND WITH INTRAVENOUS CONTRAST CLINICAL INDICATION: hyponatremia and thyroid level abnormality - microadenoma? TECHNIQUE: Multiplanar and multisequence MR images of the brain were obtained without and with intravenous contrast. CONTRAST: 19cc clariscan COMPARISON: No relevant prior studies available. FINDINGS: BRAIN AND EXTRA-AXIAL SPACES: There is no restricted diffusion in the brain parenchyma to indicate recent infarct or other pathology. Diffusely scattered periventricular and subcortical T2 and T2 FLAIR hyperintense foci are nonspecific although most commonly due to chronic microvascular ischemic changes in a patient of this age. 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 No intracranial mass or mass effect and no shift of midline structures. No hydrocephalus. Patent basal cisterns. No intra- or extra-axial hemorrhage. Posterior fossa structures are unremarkable. No pathologic intracranial enhancement. SELLA: Partially empty sella turcica is nonspecific although not atypical for patient of this age. No focal pituitary abnormality is identified. No infundibular deviation. AUDITORY SYSTEM: No significant abnormality. The internal auditory canals are patent. BONES/JOINTS: No significant abnormality. No discrete lytic or blastic abnormalities. SINUSES: Mucosal retention cyst in the paranasal sinuses. MASTOID AIR CELLS: Normal as visualized. Clear. ORBITS: Normal as visualized. Both globes, extraocular muscles, optic nerves and retrobulbar fat appear unremarkable. VASCULATURE: The cavernous sinus appears normal bilaterally. MRI/Brain W/WO Contrast IMPRESSION: 1. Partially empty sella turcica is nonspecific although not atypical for patient of this age. No focal pituitary lesion. 2. Chronic microvascular ischemic changes. No evidence of acute intracranial pathology. Electronically Signed: Unruly Mireles DO at 21:31 EDT ,
== END | disposition home or self-care (01) ==
LOC: MRI 12:39
PROVIDERS: PCP Family Medicine; Referring Provider Family Medicine; Visit Provider Family Medicine
DX: E87.1 Hypo-osmolality and hyponatremia (principal)
CPT/HCPCS: 70553; A9575

== ENCOUNTER → 2023-10-08 | Outpatient (CLI) | payer MEDICARE, OTHER, SELFPAY ==
--- NOTE | 2023-10-08 15:24 | US_ITS ---
STUDY: THYROID ULTRASOUND REASON FOR EXAM: Male, 73 years old. ABNORMAL BLOOD TEST THYROID TECHNIQUE: Ultrasound evaluation of the thyroid was performed with real-time and static johnson-scale imaging. COMPARISON: None. FINDINGS: RIGHT LOBE: The right lobe of the thyroid gland measures 5.6 x 1.9 x 1.9 cm. There is a homogeneous echotexture. There are multiple primarily cystic nodules no larger than 6 mm. There is also a complex 1.6 cm heterogeneous nodule of the lower pole which needs further evaluation. Biopsy should be considered along with annual follow-up. LEFT LOBE: The left lobe of the thyroid gland measures 4.4 x 1.7 x 1.2 cm. There is a homogeneous echotexture. There is a 5 mm colloid cyst. ISTHMUS: The isthmus measures 2.4 mm . The regional lymph nodes are normal. US/Thyroid IMPRESSION: Heterogeneous moderately suspicious 1.6 cm nodule of the right lower pole. Consider biopsy and annual follow-up. Electronically Signed: Walker Cobb MD at 22:56 EDT ,
== END | disposition home or self-care (01) ==
LOC: US 15:20
PROVIDERS: PCP Family Medicine; Referring Provider Family Medicine; Visit Provider Family Medicine
DX: R79.89 Other specified abnormal findings of blood chemistry (principal)
CPT/HCPCS: 76536

== ENCOUNTER → 2023-10-18 | Outpatient (CLI) | payer MEDICARE, OTHER, SELFPAY ==
[2023-10-18 11:22] LABS: Absolute Lymphocyte Count 1.37 X10^3/uL (0.83-4.51); Absolute Neutrophil Count 5.7 X10^3/uL (2.0-7.7); Basophil# 0.05 X10^3/uL; Basophil% 0.6 % (0-1); Eosinophils% 3.7 % (0-5); Hematocrit 37.1 % (40-54); Hemoglobin 12.7 g/dL (13.0-16.5); Lymphocyte # 1.37 X10^3/ul (0.83-4.51); Lymphocyte % 16.9 % (19-41); Mean Corp Hgb Conc 34.2 g/dL (32-36); Mean Corpuscular Volume 93.5 fL (80-94); Mean Platelet Vol. 8.7 fl (6.2-12.0); Monocyte# 0.69 X10^3/uL; Monocyte% 8.5 % (0-10); NRBC Flagged by Analyzer 0 % (0-5); Neutrophil # 5.65 X10^3/uL (2.7-7.7); Neutrophil % 69.9 % (47-70); Platelet Count 297 K/mm3 (150-450); RBC Distribution Width CV 12.1 % (11.6-14.6); RBC Distribution Width SD 41.8 fl (35.1-43.9); Red Blood Count 3.97 M/mm3 (4.6-6.2); White Blood Count 8.1 K/mm3 (4.4-11.0)
[2023-10-18 11:49] LABS: Microalbumin,Random Urine 7.8 mg/L (NO RANGE EST.); Microalbumin:Creatinine Ratio 11.4 mg/g CRE (<30 mg/g CRE)
[2023-10-18 11:51] LABS: PTHIN 57.3 pg/mL (18.4-80.1)
[2023-10-18 12:05] LABS: AST(SGOT) 13 U/L (15-37); Alanine Aminotransfer ALT/SGPT 21 U/L (16-61); Albumin, Serum 3.8 g/dL (3.2-5.0); Alkaline Phosphatase 58 U/L (45-117); Anion Gap 7 (5-15); BUN 30 mg/dL (7-18); BUN/Creat Ratio 20.8 RATIO (10-20); Calcium,Total 8.7 mg/dL (8.5-10.1); Chloride 98 mmol/L (98-107); Creatinine, Serum 1.44 mg/dL (0.70-1.30); EST Glomerular Filtration Rate 51 mL/min (>60); Est Glom Filt Rate - Afr Amer 62 mL/min (>60); Glucose 162 mg/dL (74-106); Potassium 4.9 mmol/L (3.5-5.1); Protein, Total 7.8 g/dL (6.4-8.2); Sodium Level 130 mmol/L (136-145); T4 Free Direct 0.72 ng/dL (0.76-1.46); Thyroid Stim Hormone (TSH) 0.42 uIU/mL (0.358-3.74)
[2023-10-18 13:23] LABS: Hemoglobin A1c 6.8 % (3.8-5.6)
== END | disposition home or self-care (01) ==
PROVIDERS: PCP Family Medicine; Referring Provider Family Medicine; Visit Provider Family Medicine
DX: E11.22 Type 2 diabetes mellitus with diabetic chronic kidney disease (principal); E04.1 Nontoxic single thyroid nodule; E05.90 Thyrotoxicosis, unspecified without thyrotoxic crisis or storm; R42 Dizziness and giddiness; I10 Essential (primary) hypertension
CPT/HCPCS: 36415; 80053; 82043; 82570; 83036; 83970; 84439; 84443; 85025

== ENCOUNTER → 2023-11-01 | Outpatient (CLI) | payer MEDICARE, OTHER, SELFPAY ==
[2023-11-01 17:31] LABS: Absolute Lymphocyte Count 1.24 X10^3/uL (0.83-4.51); Absolute Neutrophil Count 3.8 X10^3/uL (2.0-7.7); Basophil# 0.04 X10^3/uL; Basophil% 0.7 % (0-1); Eosinophil# 0.21 X10^3/uL; Eosinophils% 3.6 % (0-5); Hematocrit 34.5 % (40-54); Hemoglobin 11.8 g/dL (13.0-16.5); Lymphocyte # 1.24 X10^3/ul (0.83-4.51); Lymphocyte % 21.1 % (19-41); Mean Corp Hgb Conc 34.2 g/dL (32-36); Mean Corpuscular Hgb 31.4 pg (27.0-32.0); Mean Corpuscular Volume 91.8 fL (80-94); Mean Platelet Vol. 8.7 fl (6.2-12.0); Monocyte# 0.53 X10^3/uL; NRBC Flagged by Analyzer 0 % (0-5); Neutrophil # 3.76 X10^3/uL (2.7-7.7); Neutrophil % 64.1 % (47-70); Platelet Count 311 K/mm3 (150-450); RBC Distribution Width CV 11.8 % (11.6-14.6); RBC Distribution Width SD 39.8 fl (35.1-43.9); Red Blood Count 3.76 M/mm3 (4.6-6.2); White Blood Count 5.9 K/mm3 (4.4-11.0)
[2023-11-01 18:00] LABS: ALB/GLOB Ratio 1.1 RATIO (0.9-2.4); AST(SGOT) 14 U/L (15-37); Alanine Aminotransfer ALT/SGPT 20 U/L (16-61); Albumin, Serum 3.8 g/dL (3.2-5.0); Alkaline Phosphatase 55 U/L (45-117); Anion Gap 8 (5-15); BUN 30 mg/dL (7-18); BUN/Creat Ratio 23.8 RATIO (10-20); Calcium,Total 9.4 mg/dL (8.5-10.1); Chloride 94 mmol/L (98-107); Cholesterol 161 mg/dL (200); Creatinine, Serum 1.26 mg/dL (0.70-1.30); EST Glomerular Filtration Rate 60 mL/min (>60); Est Glom Filt Rate - Afr Amer 72 mL/min (>60); Globulin 3.6 g/dL (2.2-4.2); Glucose 181 mg/dL (74-106); High Density Lipoprotein 38 mg/dL; Magnesium 1.9 mg/dL (1.6-2.6); Protein, Total 7.4 g/dL (6.4-8.2); Sodium Level 126 mmol/L (136-145); Triglycerides 254 mg/dL; Very Low Density Lipoprotein 51 mg/dL (5-40)
== END | disposition home or self-care (01) ==
LOC: MFPLAB 16:02
PROVIDERS: PCP Family Medicine; Visit Provider Family Medicine
DX: R06.02 Shortness of breath (principal)
CPT/HCPCS: 36415; 80053; 80061; 83735; 85025

== ENCOUNTER → 2023-11-05 | Outpatient (CLI) | payer MEDICARE, OTHER, SELFPAY ==
--- NOTE | 2023-11-05 | ASPSI_PTH ---
PATIENT: ALEXANDRIA FREED LOC: [facility] U#:[id number] AGE/SX: 73/M ROOM: RE11/05/[address]: Dr. Miguel Kirby MD : 1950 BED: DIS: 11/05/2023 SPEC #: [id number] RECD: 11/05/23 10:43 STATUS: AKOSUA JAIME #: [id number] FRANCK: 11/05/23 00:[address]: Miguel Kirby DEPT: CYTOLOGY RECD BY: Carlo Price ENTERED: 11/05/23 11:35 SP TYPE: ASP BRE DICKSON DR: Dr. Lenin Hidalgo MD Tissues: A - Thyroid gland, NOS B - Thyroid gland, NOS Procedures: Surgery Specimen Level IV Cytospin Fluid Cytology Other HEADER OPERATION: Fine needle aspiration of right thyroid nodule PRE-OP DIAGNOSIS: Right thyroid nodule TISSUE SUBMITTED: A- Right lower thyroid nodule fluid, B- Right lower thyroid nodule (smears) DIAGNOSIS CYTOLOGY A. Fine needle aspiration, right lower thyroid nodule fluid (cytospin and cellblock): Consistent with benign follicular nodule ([place] Category II). See comment. B. Fine needle aspiration, right thyroid nodule (smears): Consistent with benign follicular nodule ([place] Category II). See comment. IVETT/ 11/08/23 COMMENT A&B. The [place] System for thyroid diagnostic categorization was used in the evaluation of this case. CYTOLOGY STUDY Slides are reviewed. CYTOLOGY GROSS A. Received is 30 ml of reddish cloudy fluid labeled with the patient's name and and designated per the requisition as Right lower thyroid nodule. Submitted for cytology preparation including cell block. B. Received are 4 smears labeled with the patient's name and designated per the requisition as Right lower thyroid nodule. Submitted for staining. 11/05/2023 TC:5 CPT: 49323s6,51048
[2023-11-05 11:07] LABS: Free T3 3.1 pg/mL (2.18-3.98); T4 Free Direct 0.94 ng/dL (0.76-1.46); Thyroid Stim Hormone (TSH) 0.34 uIU/mL (0.358-3.74)
[2023-11-10 08:13] LABS: Thyroid Stim Immunoglob <0.10 IU/L (0.00-0.55)
== END | disposition home or self-care (01) ==
PROVIDERS: PCP Family Medicine; Referring Provider Surgery; Visit Provider Surgery
DX: E04.1 Nontoxic single thyroid nodule (principal)
CPT/HCPCS: 36415; 84439; 84443; 84445; 84481; 88108; 88161; 88305

== ENCOUNTER 2023-11-06 08:13 | Emergency (ER) | payer MEDICARE, OTHER, SELFPAY ==
[2023-11-06 08:14] VITALS: BP 135/76; PULSE 93; RESP 18; TEMP 36.6; O2SAT 99; BMI 27.6
--- NOTE | 2023-11-06 08:25 | RAD_ITS ---
STUDY: X-RAY CHEST REASON FOR EXAM: Male, 73 years old. Fever and cough TECHNIQUE: PA and lateral views of the chest. COMPARISON: None. FINDINGS: EKG leads overlie the chest The lungs are clear and expanded. There is no demonstrated pleural abnormality. Normal size heart. Normal mediastinum and jose ramon. Normal visualized pulmonary arteries. There is atherosclerotic calcification of the aortic arch with tortuosity. There are diffuse degenerative changes of the visualized thoracic spine. Normal visualized ribs, clavicles, and shoulders. There is no demonstrated abnormality of the visualized soft tissue structures of the upper abdomen. RAD/Chest 1 View (Portable) IMPRESSION: No acute pulmonary process Electronically Signed: Abisai Jennings MD at 9:26 EDT ,
--- NOTE | 2023-11-06 08:26 | EX.ED.DYSGE1 ---
HPI History of Present Illness Chief Complaint: Anxiety Narrative Narrative: 73-year-old male presents with his because of anxiety and insomnia. They relate history that they are trying to adjust his medications and he recently came off Vraylar. Over the last few days, he has been unable to sleep and only gotten 2 to 3 hours of sleep. He was put on Klonopin 0.5 mg twice a day for 4 days and then once a day for another 4 days. This does not seem to be helping with his anxiety. He states he cannot sleep because he has racing thoughts. This is associated with palpitations and nausea and shortness of breath. He was nauseated yesterday, and today he vomited once without any blood in his emesis. He and his states that they were told to have him come to the emergency department and be checked out regarding his anxiety. also notes that his blood sugars were elevated at 250 the other day. [facility] Medical History Abnormal stress test Acquired nasal deformity Allergic rhinitis due to other allergen Chronic kidney disease (CKD) Closed fracture nasal bone Erectile dysfunction Essential hypertension History of basal cell carcinoma Nasal congestion Nasal septal deviation Nasal turbinate hypertrophy Pure hypercholesterolemia Right bundle branch block Spondylolisthesis Type 2 diabetes mellitus Home Medications fluticasone propionate 50 mcg/actuation nasal spray,suspension 1 spray intranasal QHS 11/26/20 [History Last Taken Unknown] loratadine 10 mg tablet (Claritin) 10 mg PO DAILY 11/26/20 [History Last Taken Unknown] multivitamin 1 tab PO DAILY 02/08/21 [History Last Taken Unknown] magnesium 500 mg tablet 500 mg PO DAILY supplement 01/25/22 [History Last Taken Unknown] aspirin 81 mg capsule 81 mg PO DAILY 03/16/22 [History Last Taken 03/16/22] lisinopril 5 mg tablet 5 mg PO DAILY 07/08/23 [History Last Taken Unknown] metformin 500 mg tablet 500 mg PO QHS 07/08/23 [History Last Taken Unknown] cariprazine 1.5 mg capsule (Vraylar) 1.5 mg PO DAILY 11/05/23 [History Last Taken Unknown] cholecalciferol (vitamin D3) 50 mcg (2,000 unit) capsule 50 mcg PO DAILY 11/05/23 [History Last Taken Unknown] clonazepam 0.5 mg tablet (Klonopin) 0.5 mg PO DAILY 11/05/23 [History Last Taken Unknown] ropinirole 0.5 mg tablet 1.5 mg PO QHS 11/05/23 [History Last Taken Unknown] lorazepam 1 mg tablet (Ativan) 1 mg PO BID PRN anxiety #12 tabs 11/06/23 [Rx Last Taken Unknown] Allergy/AdvReac Type Severity Reaction Status Date / Time Thiazides Allergy Severe Other Verified 11/06/23 08:13 diphenhydramine Allergy Intermediate Other Verified 11/06/23 08:13 [From Benadryl] Penicillins Allergy Intermediate Rash Verified 11/06/23 08:13 Haet[place]m-WLY-BoJ Reductase Allergy Intermediate Other Verified 11/06/23 08:13 Inhibitor trazodone Allergy Intermediate Other Verified 11/06/23 08:13 atorvastatin AdvReac Intermediate messed Verified 11/06/23 08:13 with my head simvastatin AdvReac Intermediate messed Verified 11/06/23 08:13 with my head Family History Mother Cancer breast Diabetes Thyroid disorder Father Cancer leukemia Hypertension Surgical History History of colonoscopy (01/19/14) History of esophagogastroduodenoscopy (EGD) (04/19/14) History of left heart catheterization (03/16/22) History of sinus surgery (1989) History of varicose veins Social History Smoking Status: Never smoker alcohol intake: never substance use type: does not use caffeine: Yes Type: coffee Number of servings: 3 ROS ROS ED ROS Narrative Constitutional: No fever, no chills. HEENT: No sore throat. No neck pain. No loss of vision. No rhinorrhea. Cardiovascular: Intermittent chest pain. Occasional palpitations. No pedal edema. Respiratory: No cough, no shortness of breath. Abdominal: Pressure in epigastrium/abdominal pain. Positive nausea with 1 episode of vomiting today. Genitourinary: No dysuria. No hematuria. Musculoskeletal: No myalgias. No arthralgias. Neurologic: No headaches. No dizziness. No lightheadedness. Skin: No rash. No change in color. Psychiatric: No depression. Positive anxiety. Positive insomnia. EXAM Physical Exam Narrative Exam Narrative: Afebrile. Vital signs noted. HEENT: Normocephalic. Atraumatic. PERRL, EOMI. Neck soft and supple. No point tenderness or step off. Cardiovascular: Regular rate and rhythm. No murmurs, rubs, or gallops appreciated. Respiratory: No tachypnea. Lungs clear to auscultation bilaterally. Gastrointestinal: Abdomen soft, nontender, with normoactive bowel sounds. No rebound or guarding. Neurological: Awake. Alert. Nonfocal, nonlateralizing. Skin: No rash. Normal color. No pallor. Musculoskeletal: No pedal edema. Full range of motion extremities. Psychiatric: Mild anxiety. No hallucinations. No internal stimulation. Const Vital Signs: 11/06/23 08:14 Temperature 97.8 F Temperature Source Temporal Pulse Rate 93 Respiratory Rate 18 Blood Pressure 135/76 H Blood Pressure Mean 95 Pulse Ox 99 Oxygen Delivery Method Room Air MDM MDM MDM Narrative Medical decision making narrative: Medical screening labs were obtained. He is only taking 0.5 mg daily of benzodiazepine. He was given Ativan 1 mg here in basic laboratory work will be obtained. Given his reported elevated blood sugar, I will obtain an electrolyte panel to make sure that he is not hyperglycemic or in HON K. He does take metformin for type 2 diabetes. EKG and single troponin will also be obtained along with CBC. As he states he was short of breath, although his pulse ox is 99% on room air, chest x-ray will be obtained to help rule out a pneumothorax or pneumonia. EKG was obtained and interpreted by myself independently as normal sinus rhythm at 91 bpm with right bundle branch block, no significant change from previous in his electronic medical record. I reviewed his laboratory work and he has a normal white count of 9.8, hemoglobin stable at 11.1, hematocrit 32.3, platelet count normal at 297. Glucose is elevated at 248, his sodium is slightly low at 128 but corrected to 130. He will be bolused normal saline. His anion gap is normal at 7. Chloride slightly low at 97 as well so you may be mildly dehydrated. His BUN is 31 and creatinine 1.42, but this appears around his baseline as it has fluctuated in the past. High-sensitivity troponin is 9. As he has been having anxiety for few days, I do not think that he has acute coronary syndrome and that he needs serial troponins. Lipase is normal at 39, helping to rule out pancreatitis. I do feel that a lot of his symptoms are related to anxiety. Regarding his elevated blood sugars, he takes 1000 mg of metformin in the morning and 500 at night. He may need to increase this to 1000 mg twice a day but I do feel that is best left to his primary care provider. After Ativan 1 mg intravenously, family states that he was starting to feel anxious again, but on my repeat examination at around 920 in the morning, he states that he is chill. In discussion with his , he has had Ativan before for MRI which may be more effective for him. I will discuss the patient with Dr. Garcia on for Dr. Lenin Hidalgo to see if I should write for Ativan 1 mg twice a day for few days and have him follow-up for further prescription and titration. I do not feel that patient meets any criteria for psychiatric hold. Dr. Garcia is okay with me writing the patient a prescription for Ativan 1 mg twice a day as needed for anxiety. I wrote him a prescription for 12 tablets to get him through until Wednesday. I feel he can be discharged to follow-up. Patient currently is less anxious, sitting on the cot with his legs crossed and feels well. Disposition is discharged home in stable condition. History & Record Review Discussion w/independent historian: Patient and Family Additional record(s) reviewed:: Prior outpatient record (EKG with right bundle branch block, unchanged) Lab Data Attestation: I reviewed the patient's lab results. Labs: Laboratory Results - last 24 hr 11/06/23 08:35 WBC 9.8 RBC 3.48 L Hgb 11.1 L Hct 32.3 L MCV 92.8 MCH 31.9 MCHC 34.4 RDW Std Deviation 40.7 RDW Coeff of Laya 11.9 Plt Count 297 MPV 8.4 Sodium 128 L Potassium 5.1 Chloride 97 L Carbon Dioxide 24.0 Anion Gap 7 BUN 31 H Creatinine 1.42 H Estim Creat Clear Calc 51.61 Est GFR (MDRD) Af Amer 63 Est GFR (MDRD) Non-Af 52 L BUN/Creatinine Ratio 21.8 H Glucose 248 H Calcium 8.9 Total Bilirubin 0.30 AST 11 L ALT 18 Alkaline Phosphatase 46 Troponin I High Sens 9 Total Protein 7.2 Albumin 3.7 Globulin 3.5 Albumin/Globulin Ratio 1.1 Lipase 39 Radiography Diagnostic Testing: Clinical Impression(s) from Imaging Studies Chest X-Ray 11/06/23 08:25 IMPRESSION: No acute pulmonary process Electronically Signed: Abisai Jennings MD at 9:26 EDT Reading Location ID and State: [address] [place] [address] , Service support , Discharge Plan Triage Chief Complaint: Anxiety ED Provider: Noble Figueroa Dx/Rx/DC Orders Clinical Impression: Insomnia, Anxiety Instructions: ED Anxiety Reaction, ED Insomnia Prescriptions: New lorazepam [Ativan] 1 mg tablet 1 mg PO BID PRN (Reason: anxiety) Qty: 12 0RF No Action loratadine [Claritin] 10 mg tablet 10 mg PO DAILY fluticasone propionate 50 mcg/actuation spray,suspension 1 spray intranasal QHS clonazepam [Klonopin] 0.5 mg tablet 0.5 mg PO DAILY Rx Instructions: x 4 days then 1mg cholecalciferol (vitamin D3) 50 mcg (2,000 unit) capsule 50 mcg PO DAILY ropinirole 0.5 mg tablet 1.5 mg PO QHS Rx Instructions: administer 1-3 hours before bedtime Vraylar 1.5 mg capsule 1.5 mg PO DAILY metformin 500 mg tablet 500 mg PO QHS multivitamin Tablet 1 tab PO DAILY magnesium 500 mg Tablet 500 mg PO DAILY aspirin 81 mg Capsule 81 mg PO DAILY lisinopril 5 mg tablet 5 mg PO DAILY Primary Care Provider: Lenin Hidalgo Referrals: Lenin Hidalgo MD [Primary Care Provider] - 2 Days Activity Restrictions/Additional Instructions: Stop taking the clonazepam and replace with the Ativan 1 mg by mouth twice a day as needed for anxiety. You may need to have your metformin increased to 1000 mg by mouth twice a day, but ask your primary care physician about this when you follow-up with him on Wednesday. Disposition Disposition: Home, Self Care
[2023-11-06] MEDS: LORazepam 2 MG/ML Syringe 1 MG IV (08:35)
[2023-11-06 08:45] LABS: Hematocrit 32.3 % (40-54); Hemoglobin 11.1 g/dL (13.0-16.5); Mean Corp Hgb Conc 34.4 g/dL (32-36); Mean Corpuscular Hgb 31.9 pg (27.0-32.0); Mean Corpuscular Volume 92.8 fL (80-94); Mean Platelet Vol. 8.4 fl (6.2-12.0); Platelet Count 297 K/mm3 (150-450); RBC Distribution Width CV 11.9 % (11.6-14.6); RBC Distribution Width SD 40.7 fl (35.1-43.9); Red Blood Count 3.48 M/mm3 (4.6-6.2); White Blood Count 9.8 K/mm3 (4.4-11.0)
[2023-11-06 09:04] LABS: ALB/GLOB Ratio 1.1 RATIO (0.9-2.4); AST(SGOT) 11 U/L (15-37); Alanine Aminotransfer ALT/SGPT 18 U/L (16-61); Albumin, Serum 3.7 g/dL (3.2-5.0); Alkaline Phosphatase 46 U/L (45-117); Anion Gap 7 (5-15); BUN 31 mg/dL (7-18); BUN/Creat Ratio 21.8 RATIO (10-20); Calcium,Total 8.9 mg/dL (8.5-10.1); Chloride 97 mmol/L (98-107); Creatinine, Serum 1.42 mg/dL (0.70-1.30); EST Glomerular Filtration Rate 52 mL/min (>60); Est Glom Filt Rate - Afr Amer 63 mL/min (>60); Estimated Creatinine Clearance 51.61 ml/min; Globulin 3.5 g/dL (2.2-4.2); Glucose 248 mg/dL (74-106); Lipase 39 U/L (13-75); Potassium 5.1 mmol/L (3.5-5.1); Protein, Total 7.2 g/dL (6.4-8.2); Sodium Level 128 mmol/L (136-145); Troponin-I HS 9 pg/mL (3.0-78.0)
[2023-11-06] MEDS: 0.9% Normal Saline (1000mL) 1,000 ML 999 ML IV (09:20)
[2023-11-06 10:00] VITALS: BP 148/74; PULSE 72; RESP 16; TEMP 36.6; O2SAT 99
== END 2023-11-06 10:31 | disposition home or self-care (01) ==
PROVIDERS: Emergency Provider Emergency Medicine; PCP Family Medicine; Visit Provider Emergency Medicine
DX: F41.9 Anxiety disorder, unspecified (principal); E11.22 Type 2 diabetes mellitus with diabetic chronic kidney disease; Z79.84 Long term (current) use of oral hypoglycemic drugs; G47.00 Insomnia, unspecified; I12.9 Hypertensive chronic kidney disease with stage 1 through stage 4 chronic kidney disease, or unspecified chronic kidney disease; N18.9 Chronic kidney disease, unspecified; E78.00 Pure hypercholesterolemia, unspecified; Z79.82 Long term (current) use of aspirin; Z79.899 Other long term (current) drug therapy
CPT/HCPCS: 71045; 80053; 83690; 84484; 85027; 93005; 96361; 96374; 99284; J7030; A4216

== ENCOUNTER 2023-11-07 09:50 | Emergency (ER) | payer MEDICARE, OTHER, SELFPAY ==
[2023-11-07 09:51] VITALS: BP 130/92; PULSE 86; RESP 18; TEMP 36.6; O2SAT 98; BMI 32.1
--- NOTE | 2023-11-07 10:41 | EX.ED.DYSGE1 ---
HPI History of Present Illness Chief Complaint: Anxiety [facility] Medical History Abnormal stress test Acquired nasal deformity Allergic rhinitis due to other allergen Chronic kidney disease (CKD) Closed fracture nasal bone Erectile dysfunction Essential hypertension History of basal cell carcinoma Nasal congestion Nasal septal deviation Nasal turbinate hypertrophy Pure hypercholesterolemia Right bundle branch block Spondylolisthesis Type 2 diabetes mellitus Home Medications fluticasone propionate 50 mcg/actuation nasal spray,suspension 1 spray intranasal QHS 11/26/20 [History Last Taken Unknown] loratadine 10 mg tablet (Claritin) 10 mg PO DAILY 11/26/20 [History Last Taken Unknown] multivitamin 1 tab PO DAILY 02/08/21 [History Last Taken Unknown] magnesium 500 mg tablet 500 mg PO DAILY supplement 01/25/22 [History Last Taken Unknown] aspirin 81 mg capsule 81 mg PO DAILY 03/16/22 [History Last Taken 03/16/22] lisinopril 5 mg tablet 5 mg PO DAILY 07/08/23 [History Last Taken Unknown] metformin 500 mg tablet 500 mg PO QHS 07/08/23 [History Last Taken Unknown] cariprazine 1.5 mg capsule (Vraylar) 1.5 mg PO DAILY 11/05/23 [History Last Taken Unknown] cholecalciferol (vitamin D3) 50 mcg (2,000 unit) capsule 50 mcg PO DAILY 11/05/23 [History Last Taken Unknown] clonazepam 0.5 mg tablet (Klonopin) 0.5 mg PO DAILY 11/05/23 [History Last Taken Unknown] ropinirole 0.5 mg tablet 1.5 mg PO QHS 11/05/23 [History Last Taken Unknown] lorazepam 1 mg tablet (Ativan) 1 mg PO BID PRN anxiety #12 tabs 11/06/23 [Rx Last Taken Unknown] Allergy/AdvReac Type Severity Reaction Status Date / Time Thiazides Allergy Severe Other Verified 11/06/23 08:13 diphenhydramine Allergy Intermediate Other Verified 11/06/23 08:13 [From Benadryl] Penicillins Allergy Intermediate Rash Verified 11/06/23 08:13 [id number] Reductase Allergy Intermediate Other Verified 11/06/23 08:13 Inhibitor trazodone Allergy Intermediate Other Verified 11/06/23 08:13 atorvastatin AdvReac Intermediate messed Verified 11/06/23 08:13 with my head simvastatin AdvReac Intermediate messed Verified 11/06/23 08:13 with my head Family History Mother Cancer breast Diabetes Thyroid disorder Father Cancer leukemia Hypertension Surgical History History of colonoscopy (01/19/14) History of esophagogastroduodenoscopy (EGD) (04/19/14) History of left heart catheterization (03/16/22) History of sinus surgery (1989) History of varicose veins Social History Smoking Status: Never smoker alcohol intake: never substance use type: does not use caffeine: Yes Type: coffee Number of servings: 3 EXAM Physical Exam Const Vital Signs: 11/07/23 09:51 11/07/23 13:30 11/07/23 14:15 Temperature 97.8 F Temperature Source Temporal Pulse Rate 86 99 101 H Respiratory Rate 18 25 H 21 H Blood Pressure 130/92 H 133/85 H 147/76 H Blood Pressure Mean 104 101 99 Pulse Ox 98 97 97 Oxygen Delivery Method Room Air Room Air Room Air 11/07/23 15:00 11/07/23 16:00 11/07/23 16:23 Temperature Temperature Source Pulse Rate 87 108 H 108 H Respiratory Rate 18 26 H 26 H Blood Pressure 133/71 H 141/86 H 141/86 H Blood Pressure Mean 91 104 104 Pulse Ox 99 99 99 Oxygen Delivery Method Room Air Room Air Room Air MDM MDM MDM Narrative Medical decision making narrative: HISTORY OF PRESENT ILLNESS: 73-year-old male presents with concern for abnormal behavior. Majority history provided by the patient's and daughter. They state recently he is had some medication changes. He changed venlafaxine to Vraylar. He also had a thyroid biopsy all within the last week. They note he has been struggling with inability to sleep, been more confused intermittently and having frequency of urination. They state he fell yesterday. They are unsure if he struck his head. Patient has no complaints. Denies headache, chest pain, shortness of breath, abdominal pain, difficulty or painful urination REVIEW OF SYSTEMS: Pertinent positives: Confusion, gait instability, frequency Pertinent negatives: Headache, chest pain PHYSICAL EXAM: Nursing triage notes reviewed, Vital signs reviewed Constitutional: please see mdm HENT: MMM Eyes: Pupils equal round and reactive to light, Extraocular muscles intact Neck: No stridor, no JVD, full neck ROM Lungs: Clear to auscultation, No wheezing or rales. No increased work of breathing, no conversational dyspnea, no accessory muscle use, no nasal flaring. No respiratory distress noted Heart: Regular rate and rhythm, No murmurs, No rubs and No gallops, 2+ distal pulses (radial, femoral, posterior tibial) in all extremities Abdomen: Soft, there is no tenderness, rigidity, rebound or guarding, no obvious peritoneal signs, no palpable pulsatile abdominal masses, no auscultated abdominal bruit : No CVAT Extremities: No edema Neuro: No focal neurological deficits, patient was alert, oriented to person place and time, did appear confused at times, had psychomotor agitation but was redirectable. Cranial nerves II through XII intact, 5/5 strength in all extremities. Intact sensation to light touch in all extremities, 2+ reflexes bilateral patella tendons. Unsteady, ataxic gait noted. Skin: No rash or lesions noted psych: Normal affect, goal-directed thought process MEDICAL DECISION MAKING: Chief Complaint: Confusion External records reviewed: Prior ED records reviewed: Seen yesterday for insomnia and anxiety prescribed. Labs reviewed from yesterday shows no evidence of leukocytosis, mild anemia, no thrombocytopenia. BMP with out electrolyte abnormality, mild renal insufficiency consistent with prior CKD. LFTs without significant hepatobiliary obstruction. Troponin negative. Lipase Factors affecting care: Anxiety, hypertension, hyperlipidemia, type 2 diabetes, CAD Social determinants of health: none History obtained from others: family Consults: Internal medicine (Dr. Hamilton), Behavioral health Crisis MDM Narrative: Patient was hemodynamically stable, afebrile and nontoxic-appearing. No lateralizing findings on initial neurologic exam of the patient is alert and oriented x 3 still had some nonquantifiable confusion. I suspect based on his history and physical exam that his symptoms are related to polypharmacy including recent psychiatric med changes and addition to above benzodiazepine and advanced age was caused more agitation and then added to his gait imbalance however I did obtain a broad lab and imaging workup to further elucidate the etiology patient complaints. I treat the patient with 500 cc bolus and gave 2 mg of IV haloperidol for agitation management. I considered the following differential diagnosis: ICH, metabolic infectious cephalopathy, endocrine abnormality (thyroid dysfunction), polypharmacy ALL IMAGES (IF OBTAINED) HAVE BEEN PERSONALLY REVIEWED AND INTERPRETED BY MYSELF. EKG with AV block, normal axis, right bundle branch block no STEMI CT head negative I have personally reviewed the patient's chest x-ray. Chest x-ray is unremarkable for pulmonary edema, pneumothorax, pneumonia or focal cardiopulmonary abnormality. CBC with no leukocytosis, noted mild anemia, no thrombocytopenia BMP with hyponatremia, no TRUPTI, no evidence of metabolic acidosis or endorgan hypoperfusion LFTs show no evidence of hepatobiliary pathology. High-sensitivity troponin is negative, no evidence of myocardial ischemia TSH low however T3 and T4 within normal limits suggestive of no thyroid dysfunction causing the patient's presentation Serum alcohol level The patient was medically cleared. He continued to have agitation. This required another dose of 2 mg of IV haloperidol. He continued to be agitated. He was placed in soft restraints temporarily and given 20 g IV Geodon with resolution of agitation. He was evaluated by behavioral health and they agreed the patient should be transferred to geriatric psychiatric facility. This was arranged and patient is awaiting transfer at time of signout. The patient and/or family, caregivers express understanding. The patient and/or family, caregivers agrees with the plan. Shared decision making: I will have a discussion with the patient and or visitors regarding risk/benefits of further testing or admission. They will be made aware of of the risk/benefits inherent in this decision they will be given the opportunity to voice understanding. Total critical care time today provided was at least 0 minutes. This excludes separately billable procedures. Critical care time (if documented) is secondary to the patient having high probability of clinically significant/life threatening deterioration in the patient's condition which required my urgent intervention. Impression: 1. Altered mental status 2. Ataxia 3. Psychomotor Agitation Dispo: Transfer to Psychiatric Facility This note was generated with [employer] dictation software. It may contain incorrect words, spelling, and punctuation that were not noted in review of the chart prior to signing. Lab Data Labs: Laboratory Results - last 24 hr 11/07/23 11/07/23 11:30 12:40 WBC 11.0 RBC 3.39 L Hgb 10.7 L Hct 30.9 L MCV 91.2 MCH 31.6 MCHC 34.6 RDW Std Deviation 38.9 RDW Coeff of Laya 11.6 Plt Count 289 MPV 8.3 Immature Gran % (Auto) 0.500 Neut % (Auto) 78.8 H Lymph % (Auto) 11.4 L Person % (Auto) 7.5 Eos % (Auto) 1.2 Baso % (Auto) 0.6 Absolute Neuts (auto) 8.7 H Absolute Lymphs (auto) 1.25 Nucleated RBC % 0 Sodium 126 L Potassium 4.8 Chloride 94 L Carbon Dioxide 23.0 Anion Gap 9 BUN 23 H Creatinine 1.05 Estim Creat Clear Calc 80.51 Est GFR (MDRD) Af Amer 89 Est GFR (MDRD) Non-Af 74 BUN/Creatinine Ratio 21.9 H Glucose 142 H Calcium 8.9 Total Bilirubin 0.50 AST 16 ALT 20 Alkaline Phosphatase 45 Troponin I High Sens 13 Total Protein 7.0 Albumin 3.8 Globulin 3.2 Albumin/Globulin Ratio 1.2 Lipase 30 TSH 0.26 L Free T4 1.01 Free T3 pg/dL 3.4 Urine Color Straw Urine Clarity Clear Urine pH 7.0 Ur Specific [place] 1.020 Urine Protein Negative Urine Glucose (UA) Normal Urine Ketones Negative Urine Occult Blood Negative Urine Nitrite Negative Urine Bilirubin Negative Urine Urobilinogen Normal Ur Leukocyte Esterase Negative Urine RBC 0 SEEN Urine WBC 0 SEEN Ur Squamous Epith Cells 0 SEEN Urine Bacteria 0 SEEN Urine Mucus 0 SEEN Urine Opiates Screen NEGATIVE Urine Methadone Screen NEGATIVE Ur Barbiturates Screen NEGATIVE Ur Phencyclidine Scrn NEGATIVE Ur Amphetamines Screen NEGATIVE MDMA (Ecstasy) Screen NEGATIVE U Benzodiazepines Scrn NEGATIVE Urine Cocaine Screen NEGATIVE U Cannabinoids Screen POSITIVE H Ur Drug Screen Comment Ethyl Alcohol < 3.0 Radiography Diagnostic Testing: Clinical Impression(s) from Imaging Studies Brain CT 11/07/23 11:23 IMPRESSION: Age consistent changes, no acute findings Electronically Signed: Abisai Jennings MD at 13:03 EDT , Chest X-Ray 11/07/23 11:23 IMPRESSION: No acute pulmonary process Electronically Signed: Abisai Jennings MD at 12:22 EDT , Discharge Plan Triage Chief Complaint: Anxiety ED Provider: Fredrick Dorsey Dx/Rx/DC Orders Prescriptions: No Action loratadine [Claritin] 10 mg tablet 10 mg PO DAILY fluticasone propionate 50 mcg/actuation spray,suspension 1 spray intranasal QHS clonazepam [Klonopin] 0.5 mg tablet 0.5 mg PO DAILY Rx Instructions: x 4 days then 1mg cholecalciferol (vitamin D3) 50 mcg (2,000 unit) capsule 50 mcg PO DAILY ropinirole 0.5 mg tablet 1.5 mg PO QHS Rx Instructions: administer 1-3 hours before bedtime Vraylar 1.5 mg capsule 1.5 mg PO DAILY metformin 500 mg tablet 500 mg PO QHS multivitamin Tablet 1 tab PO DAILY magnesium 500 mg Tablet 500 mg PO DAILY aspirin 81 mg Capsule 81 mg PO DAILY lorazepam [Ativan] 1 mg tablet 1 mg PO BID PRN (Reason: anxiety) Qty: 12 0RF lisinopril 5 mg tablet 5 mg PO DAILY Primary Care Provider: Lenin Hidalgo Referrals: Lenin Hidalgo MD [Primary Care Provider] -
--- NOTE | 2023-11-07 11:23 | CT_ITS ---
STUDY: CT BRAIN WITHOUT CONTRAST REASON FOR EXAM: Male, 73 years old. Altered mental status RADIATION DOSAGE (If Supplied By Facility): CTDIvol = ( 44.99 ) mGy, DLP = ( 880.47 ) mGycm TECHNIQUE: Transaxial CT imaging of the brain was performed without administration of intravenous contrast material. Individualized dose optimization techniques were used for this CT. COMPARISON: MR brain from 09/22/2023 FINDINGS: Normal soft tissue structures. Normal calvarium. Normal size ventricles and extra-axial spaces for the patient''s age. Normal white matter tracts of the cerebral hemispheres. Normal basal ganglia and thalami. Normal brainstem. Normal cerebellum. There is no intracranial hemorrhage. There are no findings of an acute ischemic infarction. Retention cysts/polyps the bases of both maxillary sinuses CT/Brain/Head without Contrast IMPRESSION: Age consistent changes, no acute findings Electronically Signed: Abisai Jennings MD at 13:03 EDT ,
--- NOTE | 2023-11-07 11:23 | RAD_ITS ---
STUDY: X-RAY CHEST REASON FOR EXAM: Male, 73 years old. Chest pain/pressure TECHNIQUE: Single AP portable view of the chest. COMPARISON: 11/06/2023 FINDINGS: EKG leads overlie the chest The lungs are clear and expanded. There is no demonstrated pleural abnormality. Normal size heart. Normal mediastinum and jose ramon. Normal visualized pulmonary arteries. Normal visualized aortic arch and descending thoracic aorta. There are diffuse degenerative changes of the visualized thoracic spine. Normal visualized ribs, clavicles, and shoulders. There is no demonstrated abnormality of the visualized soft tissue structures of the upper abdomen. RAD/Chest 1 View (Portable) IMPRESSION: No acute pulmonary process Electronically Signed: Abisai Jennings MD at 12:22 EDT ,
[2023-11-07] MEDS: Haloperidol Lactate 5 MG/ML Vial 2 MG IV ×2 (11:38→13:14)
[2023-11-07 11:44] LABS: Absolute Lymphocyte Count 1.25 X10^3/uL (0.83-4.51); Absolute Neutrophil Count 8.7 X10^3/uL (2.0-7.7); Basophil# 0.07 X10^3/uL; Basophil% 0.6 % (0-1); Eosinophil# 0.13 X10^3/uL; Eosinophils% 1.2 % (0-5); Hematocrit 30.9 % (40-54); Hemoglobin 10.7 g/dL (13.0-16.5); Lymphocyte # 1.25 X10^3/ul (0.83-4.51); Lymphocyte % 11.4 % (19-41); Mean Corp Hgb Conc 34.6 g/dL (32-36); Mean Corpuscular Hgb 31.6 pg (27.0-32.0); Mean Corpuscular Volume 91.2 fL (80-94); Mean Platelet Vol. 8.3 fl (6.2-12.0); Monocyte# 0.83 X10^3/uL; Monocyte% 7.5 % (0-10); NRBC Flagged by Analyzer 0 % (0-5); Neutrophil # 8.67 X10^3/uL (2.7-7.7); Neutrophil % 78.8 % (47-70); Platelet Count 289 K/mm3 (150-450); RBC Distribution Width CV 11.6 % (11.6-14.6); RBC Distribution Width SD 38.9 fl (35.1-43.9); Red Blood Count 3.39 M/mm3 (4.6-6.2)
[2023-11-07 11:55] LABS: Alcohol, Blood (Medical)-Serum < 3.0 mg/dL
[2023-11-07 12:09] LABS: ALB/GLOB Ratio 1.2 RATIO (0.9-2.4); AST(SGOT) 16 U/L (15-37); Alanine Aminotransfer ALT/SGPT 20 U/L (16-61); Albumin, Serum 3.8 g/dL (3.2-5.0); Alkaline Phosphatase 45 U/L (45-117); Anion Gap 9 (5-15); BUN 23 mg/dL (7-18); BUN/Creat Ratio 21.9 RATIO (10-20); Calcium,Total 8.9 mg/dL (8.5-10.1); Chloride 94 mmol/L (98-107); Creatinine, Serum 1.05 mg/dL (0.70-1.30); EST Glomerular Filtration Rate 74 mL/min (>60); Est Glom Filt Rate - Afr Amer 89 mL/min (>60); Estimated Creatinine Clearance 80.51 ml/min; Free T3 3.4 pg/mL (2.18-3.98); Globulin 3.2 g/dL (2.2-4.2); Glucose 142 mg/dL (74-106); Lipase 30 U/L (13-75); Potassium 4.8 mmol/L (3.5-5.1); Sodium Level 126 mmol/L (136-145); T4 Free Direct 1.01 ng/dL (0.76-1.46); Thyroid Stim Hormone (TSH) 0.26 uIU/mL (0.358-3.74); Troponin-I HS 13 pg/mL (3.0-78.0)
[2023-11-07 12:44] LABS: Bacteria 0 SEEN /hpf (None Seen); Mucous, Urine 0 SEEN /hpf (<or=2+); Red Blood Cells-Urine 0 SEEN /hpf (0-5); Squamous Epithelial Cells - UA 0 SEEN /hpf (0-5); White Blood Cells 0 SEEN /hpf (0-5)
[2023-11-07 12:56] LABS: Color, Urine Straw (Yellow); Glucose, Dipstick Normal (Normal); Ketone-Dipstick Negative (Negative); Leukocyte Esterase-Dipstick Negative /ul (Negative); Nitrite-Dipstick Negative (Negative); Occult Blood-Urine Negative /ul (Negative); Protein-Dipstick Negative (Negative); Urine Bilirubin Dipstick Negative (Negative); Urine Clarity Clear (Clear); Urine Urobilinogen Normal (Normal)
[2023-11-07] MEDS: 0.9% Normal Saline (500mL Bag) 500 ML 1000 ML IV (13:15)
[2023-11-07 13:25] LABS: Amphetamine Urine VISTA NEGATIVE (<1000 ng/mL); Barbiturate Urine VISTA NEGATIVE (< 200 ng/mL); Benzodiazepine Urine VISTA NEGATIVE (< 200 ng/mL); Cocaine Urine VISTA NEGATIVE (< 300 ng/mL); Ecstacy Urine VISTA NEGATIVE (< 500 ng/mL); Methadone Urine VISTA NEGATIVE (< 300 ng/mL); PCP Urine VISTA NEGATIVE (< 25 ng/mL); THC Urine VISTA POSITIVE (< 50 ng/mL); Vista UDS pH Range 6
[2023-11-07 13:30] VITALS: BP 133/85; PULSE 99; RESP 25; O2SAT 97
[2023-11-07] MEDS: Ziprasidone IM 20 MG/ML VIAL IM (13:46)
[2023-11-07 14:15] VITALS: BP 147/76; PULSE 101; RESP 21; O2SAT 97
--- NOTE | 2023-11-07 14:30 | NURSING ---
DR MARNIE PAZ
[2023-11-07 15:00] VITALS: BP 133/71; PULSE 87; RESP 18; O2SAT 99
--- NOTE | 2023-11-07 15:05 | NURSING ---
FAXED CHART TO CRIS[facility]
[2023-11-07 16:00] VITALS: BP 141/86; PULSE 108; RESP 26; O2SAT 99
[2023-11-07 16:23] VITALS: BP 141/86; PULSE 108; RESP 26; O2SAT 99
[2023-11-08 00:23] VITALS: BP 117/72; PULSE 63; RESP 13; O2SAT 97
[2023-11-08 08:00] VITALS: BP 155/99; PULSE 72; RESP 16; O2SAT 93
[2023-11-08 09:20] VITALS: BP 158/90; PULSE 62; RESP 16; TEMP 36.7; O2SAT 96
== END 2023-11-08 09:21 | disposition home or self-care (01) ==
PROVIDERS: Emergency Provider Emergency Medicine; PCP Family Medicine; Visit Provider Emergency Medicine
DX: R41.82 Altered mental status, unspecified (principal); E11.22 Type 2 diabetes mellitus with diabetic chronic kidney disease; I45.10 Unspecified right bundle-branch block; E87.1 Hypo-osmolality and hyponatremia; R27.0 Ataxia, unspecified; R35.0 Frequency of micturition; F41.9 Anxiety disorder, unspecified; I12.9 Hypertensive chronic kidney disease with stage 1 through stage 4 chronic kidney disease, or unspecified chronic kidney disease; I25.10 Atherosclerotic heart disease of native coronary artery without angina pectoris; I44.30 Unspecified atrioventricular block; E78.5 Hyperlipidemia, unspecified; N18.9 Chronic kidney disease, unspecified
CPT/HCPCS: 70450; 71045; 80053; 80307; 80320; 81001; 83690; 84439; 84443; 84481; 84484; 85025; 93005; 96361; 96372; 96374; 96375; 96376; 99284; J7030; A4216; G0480; J3486

== ENCOUNTER → 2023-11-10 | Outpatient (CLI) | payer MEDICARE, OTHER, SELFPAY ==
[2023-11-10 18:57] LABS: Microalbumin,Random Urine 44.8 mg/L (NO RANGE EST.); Microalbumin:Creatinine Ratio 21.3 mg/g CRE (<30 mg/g CRE); Urine Sodium 48 mmol/L (Not Establ.)
== END | disposition home or self-care (01) ==
PROVIDERS: PCP Family Medicine; Visit Provider Internal Medicine Nephrology
DX: E11.22 Type 2 diabetes mellitus with diabetic chronic kidney disease (principal); E87.1 Hypo-osmolality and hyponatremia
CPT/HCPCS: 82043; 82570; 84300

== ENCOUNTER → 2023-11-15 | Outpatient (CLI) | payer MEDICARE, OTHER, SELFPAY ==
--- NOTE | 2023-11-15 06:26 | CDU_ITS ---
Reason For Study: Dizziness Rt. Velocities/BP Lt. Velocities/BP Prox CCA 89/18 cm/sec. Prox CCA 136/19 cm/sec. Mid CCA 72/14 cm/sec. Mid CCA 84/18 cm/sec. Dist CCA 55/13 cm/sec. Dist CCA 58/15 cm/sec. Prox ICA 58/16 cm/sec. Prox ICA 46/15 cm/sec. Mid ICA 69/22 cm/sec. Mid ICA 72/27 cm/sec. Dist ICA 57/22 cm/sec. Dist ICA 74/23 cm/sec. Rt. ICA/CCA = 0.9. Lt. ICA/CCA = 0.9. Prox ECA 64/8 cm/sec. Prox ECA 75/8 cm/sec. Rt. Vert. 50/7 cm/sec. Lt. Vert. 52/13 cm/sec. Right Extracranial There is homogeneous, smooth atherosclerotic plaque noted in the right common carotid artery. There is heterogeneous, irregular atherosclerotic plaque noted in the right internal carotid artery. There is no significant atherosclerotic plaque noted in the right external carotid artery. Antegrade flow is noted in the right vertebral artery. Left Extracranial There is heterogeneous, irregular atherosclerotic plaque noted in the left common carotid artery. There is heterogeneous, irregular atherosclerotic plaque noted in the left internal carotid artery. There is no significant atherosclerotic plaque noted in the left external carotid artery. Antegrade flow is noted in the left vertebral artery. Procedure Carotid Duplex 17010. This is a Carotid Duplex examination using B-mode, color flow and specral Doppler. Exam performed in department. VL/Carotid Duplex Ultrasound Interpretation Summary Minimal plaque at the proximal right internal carotid artery with less than 50% stenosis Less than 50% stenosis right external carotid artery Minimal calcific irregular plaque at the proximal left internal carotid artery with less than 50% stenosis Less than 50% stenosis left external carotid artery Patent and antegrade vertebral arteries bilaterally Ordering Physician: Red Garcia Referring Physician: Lenin Hidalgo Performed By: Dee Burgos, VALENTIN, RVT
--- NOTE | 2023-11-23 10:20 | STRESSREP_ITS ---
Stress Test Report Date: 11/15/2023 Procedure: Exercise tolerance test/imaging study Indications: Dyspnea Consent: Per the patient Procedure: The patient exercised on a Eagle protocol for 6 minutes and 25 seconds achieving a peak heart rate of 155 bpm (104% predicted maximal heart rate) with a peak blood pressure 172/72 mmHg and a peak MET capacity of 8.1 METs. The baseline ECG demonstrated normal sinus rhythm, right bundle branch block. The peak exercise ECG demonstrated sinus tachycardia with no significant ischemic changes. EKG during recovery revealed no significant ischemic changes [There were no cardiac dysrhythmias pretest, during exercise, or recovery]. The functional capacity was considered normal for age. There was [no complaint of chest discomfort during exercise or recovery]. The examination was discontinued secondary to dyspnea. Impression: 1. Technically adequate (percent predicted maximal heart rate greater than 85%) exercise tolerance test 2. Stress test is negative for exercise-induced EKG changes of ischemia 3. The test test is negative for exercise-induced chest pain 4. Functional capacity is normal for age 5. Nuclear images pending Myocardial perfusion imaging study: Technique: The patient was injected with 13.2 mCi of technetium 99m Cardiolite and subsequently rest SPECT Cardiolite nuclear imaging was obtained in the horizontal long, vertical long, and short axis views. The patient exercised on a Eagle protocol. Please see above for details. The patient was injected with 40.4 mCi of technetium 99m Cardiolite and subsequently stress SPECT Cardiolite nuclear imaging was obtained in the horizontal long, vertical long, and short axis views. A gated Cardiolite study at peak stress was obtained. Interpretation: Rest and stress SPECT Cardiolite nuclear imaging status post realignment, normalization, and attenuation correction, demonstrates mildly decreased radioisotope uptake at rest that is mildly worse on stress images. The gated Cardiolite study demonstrates apical hypokinesis. The reported LVEF is 39%. Impression: 1. Mild inferior ischemia cannot be excluded. 2. The gated Cardiolite study reports an LVEF of 39%. This note was generated with [email or web address] software. It may contain incorrect words, spelling, and punctuation that were not noted in checking the note before signing.
== END | disposition home or self-care (01) ==
LOC: CVS 06:24
PROVIDERS: PCP Family Medicine; Visit Provider Family Medicine
DX: R42 Dizziness and giddiness (principal); R06.02 Shortness of breath
CPT/HCPCS: 78452; 93017; 93880; A9500; A4216

== ENCOUNTER → 2023-11-17 | Outpatient (CLI) | payer MEDICARE, OTHER, SELFPAY ==
--- NOTE | 2023-11-17 13:06 | US_ITS ---
STUDY: RENAL ULTRASOUND - COMPLETE REASON FOR EXAM: Male, 73 years old. Elevated BUN/creatinine TECHNIQUE: Ultrasound evaluation of the kidneys was performed with real-time and static barraza-scale imaging. COMPARISON: None. FINDINGS: RIGHT KIDNEY: Normal location of the right kidney, which is normal in size. The right kidney measures 11.2 x 4.9 x 5.3 cm. There is a normal cortex of the right kidney. The renal cortex measures 2.2 cm. There is no right renal mass or cyst. There are no right renal calculi. There is no right hydronephrosis. DISTAL RIGHT URETER: There is non-visualization of the distal right ureter. There is no demonstrated right ureterovesical junction calculus. There is a visualized right ureteral jet. LEFT KIDNEY: Normal location of the left kidney, which is normal in size. The left kidney measures 11.6 x 5.4 x 5.1 cm. There is a normal cortex of the left kidney. The renal cortex measures 1.8 cm. There is no left renal mass or cyst. There are no left renal calculi. There is no left hydronephrosis. DISTAL LEFT URETER: There is non-visualization of the distal left ureter. There is no demonstrated left ureterovesical junction calculus. There is a visualized left ureteral jet. AORTA: There is no elongation or tortuosity of the abdominal aorta. I.V.C.: The IVC is patent. BLADDER: The distended urinary bladder has a volume of 182.1 ml. The empty urinary bladder has a volume of less than 5 ml. There is a normal wall thickness of the distended urinary bladder. There is no demonstrated mass within the urinary bladder. There are no demonstrated bladder calculi. Prostate is enlarged measuring 5.6 x 4.9 x 3.2 cm US/Kidney and Bladder IMPRESSION: Sonographically normal kidneys and bladder Enlarged prostate, no discrete lesion noted, but the evaluation was limited Electronically Signed: Abisai Jennings MD at 15:19 EDT ,
== END | disposition home or self-care (01) ==
LOC: US 13:05
PROVIDERS: PCP Family Medicine; Referring Provider Internal Medicine Nephrology; Visit Provider Internal Medicine Nephrology
DX: N18.31 Chronic kidney disease, stage 3a (principal)
CPT/HCPCS: 76770

== ENCOUNTER → 2023-11-19 | Outpatient (CLI) | payer MEDICARE, OTHER, SELFPAY ==
[2023-11-19 10:33] LABS: Absolute Neutrophil Count 4.5 X10^3/uL (2.0-7.7); Basophil# 0.06 X10^3/uL; Eosinophil# 0.19 X10^3/uL; Eosinophils% 3.1 % (0-5); Hematocrit 37.7 % (40-54); Hemoglobin 12.3 g/dL (13.0-16.5); Lymphocyte % 14.6 % (19-41); Mean Corp Hgb Conc 32.6 g/dL (32-36); Mean Corpuscular Hgb 30.9 pg (27.0-32.0); Mean Corpuscular Volume 94.7 fL (80-94); Mean Platelet Vol. 8.6 fl (6.2-12.0); Monocyte# 0.45 X10^3/uL; Monocyte% 7.3 % (0-10); NRBC Flagged by Analyzer 0 % (0-5); Neutrophil # 4.51 X10^3/uL (2.7-7.7); Neutrophil % 73.2 % (47-70); Platelet Count 335 K/mm3 (150-450); RBC Distribution Width CV 11.9 % (11.6-14.6); RBC Distribution Width SD 41.7 fl (35.1-43.9); Red Blood Count 3.98 M/mm3 (4.6-6.2); White Blood Count 6.2 K/mm3 (4.4-11.0)
[2023-11-19 10:43] LABS: Urine Sodium 60 mmol/L (Not Establ.)
[2023-11-19 10:57] LABS: AST(SGOT) 16 U/L (15-37); Alanine Aminotransfer ALT/SGPT 24 U/L (16-61); Albumin, Serum 3.8 g/dL (3.2-5.0); Alkaline Phosphatase 52 U/L (45-117); Anion Gap 7 (5-15); BUN 26 mg/dL (7-18); BUN/Creat Ratio 19.8 RATIO (10-20); Calcium,Total 10.3 mg/dL (8.5-10.1); Chloride 101 mmol/L (98-107); Creatinine, Serum 1.31 mg/dL (0.70-1.30); EST Glomerular Filtration Rate 57 mL/min (>60); Est Glom Filt Rate - Afr Amer 69 mL/min (>60); Globulin 3.9 g/dL (2.2-4.2); Glucose 174 mg/dL (74-106); Potassium 5.3 mmol/L (3.5-5.1); Protein, Total 7.7 g/dL (6.4-8.2); Sodium Level 134 mmol/L (136-145)
[2023-11-19 11:09] LABS: Osmolality, Serum 305 mOsm/KG (280-301)
[2023-11-19 11:11] LABS: Osmolality, Urine 637 mOsm/KG
[2023-11-19 13:39] LABS: Vitamin D,25 Hydroxy 71.4 ng/mL
== END | disposition home or self-care (01) ==
LOC: MFPLAB 09:24
PROVIDERS: PCP Family Medicine; Visit Provider Family Medicine
DX: E05.90 Thyrotoxicosis, unspecified without thyrotoxic crisis or storm (principal); E22.2 Syndrome of inappropriate secretion of antidiuretic hormone; E04.1 Nontoxic single thyroid nodule
CPT/HCPCS: 36415; 80053; 82306; 83930; 83935; 83970; 84300; 85025

== ENCOUNTER → 2023-12-13 | Outpatient (CLI) | payer MEDICARE, OTHER, SELFPAY ==
[2023-12-13 15:25] LABS: Absolute Lymphocyte Count 1.06 X10^3/uL (0.83-4.51); Absolute Neutrophil Count 6.5 X10^3/uL (2.0-7.7); Basophil# 0.04 X10^3/uL; Basophil% 0.5 % (0-1); Eosinophil# 0.16 X10^3/uL; Eosinophils% 1.9 % (0-5); Hematocrit 35.3 % (40-54); Hemoglobin 11.6 g/dL (13.0-16.5); Lymphocyte # 1.06 X10^3/ul (0.83-4.51); Lymphocyte % 12.5 % (19-41); Mean Corp Hgb Conc 32.9 g/dL (32-36); Mean Corpuscular Hgb 31.4 pg (27.0-32.0); Mean Corpuscular Volume 95.7 fL (80-94); Mean Platelet Vol. 9.1 fl (6.2-12.0); Monocyte# 0.65 X10^3/uL; Monocyte% 7.7 % (0-10); NRBC Flagged by Analyzer 0 % (0-5); Neutrophil # 6.51 X10^3/uL (2.7-7.7); Neutrophil % 76.7 % (47-70); Platelet Count 306 K/mm3 (150-450); RBC Distribution Width CV 12.3 % (11.6-14.6); Red Blood Count 3.69 M/mm3 (4.6-6.2); White Blood Count 8.5 K/mm3 (4.4-11.0)
[2023-12-13 16:19] LABS: Osmolality, Urine 500 mOsm/KG
[2023-12-13 19:11] LABS: ALB/GLOB Ratio 1.1 RATIO (0.9-2.4); AST(SGOT) 12 U/L (15-37); Alanine Aminotransfer ALT/SGPT 24 U/L (16-61); Albumin, Serum 3.9 g/dL (3.2-5.0); Alkaline Phosphatase 49 U/L (45-117); Anion Gap 6 (5-15); BUN 33 mg/dL (7-18); BUN/Creat Ratio 25.6 RATIO (10-20); Calcium,Total 9.5 mg/dL (8.5-10.1); Chloride 99 mmol/L (98-107); Creatinine, Serum 1.29 mg/dL (0.70-1.30); EST Glomerular Filtration Rate 58 mL/min (>60); Est Glom Filt Rate - Afr Amer 70 mL/min (>60); Globulin 3.7 g/dL (2.2-4.2); Glucose 179 mg/dL (74-106); Potassium 4.8 mmol/L (3.5-5.1); Protein, Total 7.6 g/dL (6.4-8.2); Sodium Level 131 mmol/L (136-145)
[2023-12-13 22:21] LABS: Urine Sodium 51 mmol/L (Not Establ.)
== END | disposition home or self-care (01) ==
LOC: MFPLAB 11:14
PROVIDERS: PCP Family Medicine; Visit Provider Family Medicine
DX: N40.0 Benign prostatic hyperplasia without lower urinary tract symptoms (principal)
CPT/HCPCS: 36415; 80053; 83935; 84300; 85025

== ENCOUNTER → 2024-01-07 | Outpatient (CLI) | payer MEDICARE, OTHER, SELFPAY ==
[2024-01-07 15:10] LABS: Absolute Lymphocyte Count 1.13 X10^3/uL (0.83-4.51); Absolute Neutrophil Count 4.1 X10^3/uL (2.0-7.7); Basophil# 0.05 X10^3/uL; Basophil% 0.8 % (0-1); Eosinophil# 0.24 X10^3/uL; Hemoglobin 12.1 g/dL (13.0-16.5); Lymphocyte # 1.13 X10^3/ul (0.83-4.51); Mean Corp Hgb Conc 32.7 g/dL (32-36); Mean Corpuscular Hgb 31.4 pg (27.0-32.0); Mean Corpuscular Volume 96.1 fL (80-94); Mean Platelet Vol. 9.1 fl (6.2-12.0); Monocyte# 0.46 X10^3/uL; Monocyte% 7.7 % (0-10); NRBC Flagged by Analyzer 0 % (0-5); Neutrophil # 4.06 X10^3/uL (2.7-7.7); Neutrophil % 68.2 % (47-70); Platelet Count 308 K/mm3 (150-450); RBC Distribution Width CV 12.3 % (11.6-14.6); RBC Distribution Width SD 42.9 fl (35.1-43.9); Red Blood Count 3.85 M/mm3 (4.6-6.2)
[2024-01-07 15:32] LABS: Urine Sodium 67 mmol/L (Not Establ.)
[2024-01-07 15:38] LABS: Osmolality, Serum 299 mOsm/KG (280-301); Osmolality, Urine 489 mOsm/KG
[2024-01-07 15:45] LABS: ALB/GLOB Ratio 1.2 RATIO (0.9-2.4); AST(SGOT) 16 U/L (15-37); Alanine Aminotransfer ALT/SGPT 33 U/L (16-61); Alkaline Phosphatase 51 U/L (45-117); Anion Gap 9 (5-15); BUN 28 mg/dL (7-18); Calcium,Total 9.5 mg/dL (8.5-10.1); Chloride 104 mmol/L (98-107); Cholesterol 192 mg/dL (200); EST Glomerular Filtration Rate 53 mL/min (>60); Est Glom Filt Rate - Afr Amer 64 mL/min (>60); Globulin 3.4 g/dL (2.2-4.2); Glucose 142 mg/dL (74-106); High Density Lipoprotein 50 mg/dL; Potassium 5.1 mmol/L (3.5-5.1); Protein, Total 7.4 g/dL (6.4-8.2); Sodium Level 133 mmol/L (136-145); Triglycerides 156 mg/dL; Very Low Density Lipoprotein 31 mg/dL (5-40)
[2024-01-07 23:35] LABS: Hemoglobin A1c 6.4 % (3.8-5.6)
== END | disposition home or self-care (01) ==
LOC: MFPLAB 11:42
PROVIDERS: PCP Family Medicine; Visit Provider Family Medicine
DX: E22.2 Syndrome of inappropriate secretion of antidiuretic hormone (principal); E11.22 Type 2 diabetes mellitus with diabetic chronic kidney disease; F41.9 Anxiety disorder, unspecified; E78.5 Hyperlipidemia, unspecified
CPT/HCPCS: 36415; 80053; 80061; 83036; 83930; 83935; 84300; 84443; 85025

== ENCOUNTER → 2024-03-14 | Outpatient (CLI) | payer MEDICARE, OTHER, SELFPAY ==
[2024-03-14 12:34] LABS: AST(SGOT) 9 U/L (15-37); Alanine Aminotransfer ALT/SGPT 17 U/L (16-61); Albumin, Serum 3.7 g/dL (3.2-5.0); Alkaline Phosphatase 48 U/L (45-117); Anion Gap 7 (5-15); BUN 23 mg/dL (7-18); BUN/Creat Ratio 17.8 RATIO (10-20); Calcium,Total 9.2 mg/dL (8.5-10.1); Chloride 100 mmol/L (98-107); Creatinine, Serum 1.29 mg/dL (0.70-1.30); EST Glomerular Filtration Rate 58 mL/min (>60); Est Glom Filt Rate - Afr Amer 70 mL/min (>60); Globulin 3.6 g/dL (2.2-4.2); Glucose 196 mg/dL (74-106); Potassium 4.5 mmol/L (3.5-5.1); Protein, Total 7.3 g/dL (6.4-8.2); Sodium Level 132 mmol/L (136-145)
[2024-03-14 13:09] LABS: Urine Sodium 89 mmol/L (Not Establ.)
[2024-03-14 13:11] LABS: Osmolality, Serum 294 mOsm/KG (280-301); Osmolality, Urine 414 mOsm/KG
[2024-03-14 14:30] LABS: Hemoglobin A1c 6.9 % (3.8-5.6)
== END | disposition home or self-care (01) ==
LOC: MFPLAB 09:43
PROVIDERS: PCP Family Medicine; Visit Provider Family Medicine
DX: E11.59 Type 2 diabetes mellitus with other circulatory complications (principal); E87.1 Hypo-osmolality and hyponatremia
CPT/HCPCS: 36415; 80053; 83036; 83930; 83935; 84300

== ENCOUNTER → 2024-03-28 | Outpatient (CLI) | payer MEDICARE, OTHER, SELFPAY ==
[2024-03-28 15:34] LABS: Urine Sodium 65 mmol/L (Not Establ.)
[2024-03-28 15:36] LABS: Hemoglobin A1c 6.8 % (3.8-5.6)
[2024-03-28 15:51] LABS: ALB/GLOB Ratio 1.1 RATIO (0.9-2.4); AST(SGOT) 12 U/L (15-37); Alanine Aminotransfer ALT/SGPT 18 U/L (16-61); Albumin, Serum 3.7 g/dL (3.2-5.0); Alkaline Phosphatase 46 U/L (45-117); Anion Gap 7 (5-15); BUN 26 mg/dL (7-18); BUN/Creat Ratio 20.3 RATIO (10-20); Calcium,Total 9.6 mg/dL (8.5-10.1); Chloride 100 mmol/L (98-107); Creatinine, Serum 1.28 mg/dL (0.70-1.30); EST Glomerular Filtration Rate 59 mL/min (>60); Est Glom Filt Rate - Afr Amer 71 mL/min (>60); Globulin 3.5 g/dL (2.2-4.2); Glucose 168 mg/dL (74-106); Potassium 4.3 mmol/L (3.5-5.1); Protein, Total 7.2 g/dL (6.4-8.2); Sodium Level 133 mmol/L (136-145)
[2024-03-28 16:01] LABS: Osmolality, Serum 295 mOsm/KG (280-301)
[2024-03-28 16:37] LABS: Osmolality, Urine 416 mOsm/KG
== END | disposition home or self-care (01) ==
LOC: MTLAB 12:42
PROVIDERS: PCP Family Medicine; Referring Provider Family Medicine; Visit Provider Family Medicine
DX: E11.59 Type 2 diabetes mellitus with other circulatory complications (principal); E87.1 Hypo-osmolality and hyponatremia
CPT/HCPCS: 36415; 80053; 83036; 83930; 83935; 84300

== ENCOUNTER → 2024-04-21 | Outpatient (CLI) | payer MEDICARE, OTHER, SELFPAY ==
--- OUTSIDE RECORDS SUMMARY | 2024-04-21 09:11 | XMS RPT_ITS | CCD ---
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 There is moderate osteophyte formation. Others: There are vascular calcifications. IMPRESSION IMPRESSION: L5 on S1 anterolisthesis, with L5 pars defect. Lumbar spine degenerative changes with L5-S1 disc space narrowing. Over Hauler Helper: LAM Transcribe Date/Time: Jun 30 2021 5:02P Dictated by : EBEN MULLEN MD This examination was interpreted and the report reviewed and electronically signed by: EBEN MULLEN MD on Jun 30 2021 5:09PM EST [place] XR Knee - bilateral 4 Viewso n 09-24-2020 IMPRESSION: Osteoarthrosis of the knees. Possible right knee joint effusion. Right knee prepatellar soft tissue swelling.. Over Hauler Helper: [facility] Transcribe Date/Time: Sep 24 2020 4:57P Dictated by : FRAN MARKS MD This examination was interpreted and the report reviewed and electronically signed by: FRAN MARKS MD on Sep 24 2020 4:59PM EST DIVISION OF RADIOLOGY * * *Final Report* * * DATE OF EXAM: Sep 24 2020 3:55PM WOX [id number] - XR KNEE 4V AP/PA/LAT/MERCH ALVARO / PROCEDURE REASON: multiple diagnoses * * * * Physician Interpretation * * * * Knee radiographs HISTORY: 70 years old Clinical information: Acute pain of both knees Acute pain of both knees bilateral knee pian distal apex of patella and posterior distal knee pain. for 2 weeks TECHNIQUE: Images: XR KNEE 4V AP/PA/LAT/MERCH ALVARO Comparison: None. RESULT: Findings: LEFT KNEE: Narrowing of medial compartment joint space. Small marginal ossific setting of the medial tibial plateau. Osteophyte formation involving the posterior aspect of the patella. No fracture or dislocation. No joint effusion. No soft tissue abnormality. RIGHT KNEE: Narrowing of medial compartment joint space. Small marginal osteophyte extending off the medial tibial plateau. No fracture or dislocation. Possible joint effusion. Prepatellar soft tissue swelling. DIVISION OF RADIOLOGY Provider, [facility] - 09/24/2020 * * *Final Report* * * DATE OF EXAM: Sep 24 2020 3:55PM WOX [id number] - XR KNEE 4V AP/PA/LAT/MERCH ALVARO / PROCEDURE REASON: multiple diagnoses * * * * Physician Interpretation * * * * Knee radiographs HISTORY: 70 years old Clinical information: Acute pain of both knees Acute pain of both knees bilateral knee pian distal apex of patella and posterior distal knee pain. for 2 weeks TECHNIQUE: Images: XR KNEE 4V AP/PA/LAT/MERCH ALVARO Comparison: None. RESULT: Findings: LEFT KNEE: Narrowing of medial compartment joint space. Small marginal ossific setting of the medial tibial plateau. Osteophyte formation involving the posterior aspect of the patella. No fracture or dislocation. No joint effusion. No soft tissue abnormality. RIGHT KNEE: Narrowing of medial compartment joint space. Small marginal osteophyte extending off the medial tibial plateau. No fracture or dislocation. Possible joint effusion. Prepatellar soft tissue swelling. IMPRESSION IMPRESSION: Osteoarthrosis of the knees. Possible right knee joint effusion. Right knee prepatellar soft tissue swelling.. Over Hauler Helper: [facility] Transcribe Date/Time: Sep 24 2020 4:57P Dictated by : FRAN MARKS MD This examination was interpreted and the report reviewed and electronically signed by: FRAN MARKS MD on Sep 24 2020 4:59PM EST [facility] Radiology Study observation (narrative) [facility] XR Knee - bilateral 4 ViewsO rdered By: [facility] Provider on 09-24-2020 [facility] Vital Signs Date Time Vital Sign Value Performing Clinician [facility] 09-10-2022 09:50-0400 Body weight 91.99 kg Evelina Shafer MD Work Phone: [facility] 09-10-2022 09:50-0400 Diastolic blood pressure 68 mm[Hg] Evelina Shafer MD Work Phone: [facility] 09-10-2022 09:50-0400 Heart rate 78 /min Evelina Shafer MD Work Phone: [facility] 09-10-2022 09:50-0400 Respiratory rate 16 /min Evelina Shafer MD Work Phone: [facility] 09-10-2022 09:50-0400 SaO2% (BldA) [Mass fraction] 100 % Evelina Shafer MD Work Phone: [facility] 09-10-2022 09:50-0400 Systolic blood pressure 110 mm[Hg] Evelina Shafer MD Work Phone: [facility] 06-01-2022 11:22-0500 Body weight 90.27 kg Evelina Shafer MD Work Phone: [facility] 06-01-2022 11:22-0500 Diastolic blood pressure 72 mm[Hg] Evelina Shafer MD Work Phone: [facility] 06-01-2022 11:22-0500 Heart rate 67 /min Evelina Shafer MD Work Phone: [facility] 06-01-2022 11:22-0500 Respiratory rate 16 /min Evelina Shafer MD Work Phone: [facility] 06-01-2022 11:22-0500 SaO2% (BldA) [Mass fraction] 100 % Evelina Shafer MD Work Phone: [facility] 06-01-2022 11:22-0500 Systolic blood pressure 116 mm[Hg] Evelina Shafer MD Work Phone: [facility] 05-19-2022 11:09-0500 Diastolic blood pressure 74 mm[Hg] Hedy Hetami BELLY DANCER.SHERIFF'S SERGEANT Work Phone: [facility] 05-19-2022 11:09-0500 Heart rate 67 /min Hedy Roque BELLY DANCER.SHERIFF'S SERGEANT Work Phone: [facility] 05-19-2022 11:09-0500 SaO2% (BldA) [Mass fraction] 99 % Hedy Nevarez BELLY DANCER.SHERIFF'S SERGEANT Work Phone: [facility] 05-19-2022 11:09-0500 Systolic blood pressure 115 mm[Hg] Hedy Heider BELLY DANCER.SHERIFF'S SERGEANT Work Phone: [facility] 05-18-2022 11:06-0500 Diastolic blood pressure 72 mm[Hg] Barbara Orantes MD Work Phone: [facility] 05-18-2022 11:06-0500 Heart rate 71 /min Barbara Orantes MD Work Phone: [facility] 05-18-2022 11:06-0500 Systolic blood pressure 135 mm[Hg] Barbara Orantes MD Work Phone: [facility] 05-01-2022 09:22-0400 Body weight 89.45 kg Evelina Shafer MD Work Phone: [facility] 05-01-2022 09:22-0400 Diastolic blood pressure 68 mm[Hg] Evelina Shafer MD Work Phone: [facility] 05-01-2022 09:22-0400 Heart rate 73 /min Evelina Shafer MD Work Phone: [facility] 05-01-2022 09:22-0400 Respiratory rate 16 /min Evelina Shafer MD Work Phone: [facility] 05-01-2022 09:22-0400 SaO2% (BldA) [Mass fraction] 99 % Evelina Shafer MD Work Phone: [facility] 05-01-2022 09:22-0400 Systolic blood pressure 110 mm[Hg] Evelina Shafer MD Work Phone: [facility] 04-17-2022 10:20-0400 Diastolic blood pressure 94 mm[Hg] Evelina Shafer MD Work Phone: [facility] 04-17-2022 10:20-0400 Systolic blood pressure 159 mm[Hg] Evelina Shafer MD Work Phone: [facility] 04-17-2022 10:15-0400 Heart rate 66 /min Evelina Shafer MD Work Phone: [facility] 04-17-2022 10:15-0400 Respiratory rate 18 /min Evelina Shafer MD Work Phone: [facility] 04-17-2022 10:15-0400 SaO2% (BldA) [Mass fraction] 98 % Evelina Shafer MD Work Phone: [facility] 04-17-2022 03:49-0400 Body height 180.3 cm Sleep Main Work Phone: [facility] 04-17-2022 03:49-0400 Body weight 88.5 kg Sleep Main Work Phone: [facility] 03-24-2022 12:03-0400 Body temperature 98.6 [degF] Minna Praisler-Wood BELLY DANCER.SHERIFF'S SERGEANT Work Phone: [facility] 03-24-2022 12:03-0400 Body weight 88.45 kg Minna Praisler-Wood BELLY DANCER.SHERIFF'S SERGEANT Work Phone: [facility] 03-24-2022 12:03-0400 Diastolic blood pressure 84 mm[Hg] Minna Praisler-Wood BELLY DANCER.SHERIFF'S SERGEANT Work Phone: [facility] 03-24-2022 12:03-0400 Heart rate 84 /min Minna Praisler-Wood BELLY DANCER.SHERIFF'S SERGEANT Work Phone: [facility] 03-24-2022 12:03-0400 Respiratory rate 16 /min Minna Praisler-Wood BELLY DANCER.SHERIFF'S SERGEANT Work Phone: [facility] 03-24-2022 12:03-0400 SaO2% (BldA) [Mass fraction] 98 % Minna Praisler-Wood BELLY DANCER.SHERIFF'S SERGEANT Work Phone: [facility] 03-24-2022 12:03-0400 Systolic blood pressure 122 mm[Hg] Minna Praisler-Wood BELLY DANCER.SHERIFF'S SERGEANT Work Phone: [facility] 01-29-2022 14:25-0400 Body weight 90.9 kg Evelina Shafer MD Work Phone: [facility] 01-29-2022 14:25-0400 Respiratory rate 16 /min Evelina Shafer MD Work Phone: [facility] 01-29-2022 14:25-0400 SaO2% (BldA) [Mass fraction] 98 % Evelina Shafer MD Work Phone: [facility] 12-02-2021 09:26-0400 Body weight 91.08 kg Hedy Nevarez BELLY DANCER.SHERIFF'S SERGEANT Work Phone: [facility] 12-02-2021 09:26-0400 Diastolic blood pressure 77 mm[Hg] Hedy Nevarez BELLY DANCER.SHERIFF'S SERGEANT Work Phone: [facility] 12-02-2021 09:26-0400 Systolic blood pressure 128 mm[Hg] Hedy Nevarez BELLY DANCER.SHERIFF'S SERGEANT Work Phone: [facility] 11-11-2021 09:58-0400 Diastolic blood pressure 76 mm[Hg] Barbara Orantes MD Work Phone: [facility] 11-11-2021 09:58-0400 Heart rate 66 /min Barbara Orantes MD Work Phone: [facility] 11-11-2021 09:58-0400 Systolic blood pressure 127 mm[Hg] Barbara Orantes MD Work Phone: [facility] 10-01-2021 11:12-0400 Body weight 89.9 kg Angie Podlogar BELLY DANCER.SHERIFF'S SERGEANT Work Phone: [facility] 10-01-2021 11:12-0400 Diastolic blood pressure 82 mm[Hg] Angie Podlogar BELLY DANCER.SHERIFF'S SERGEANT Work Phone: [facility] 10-01-2021 11:12-0400 Heart rate 70 /min Angie Podlogar BELLY DANCER.SHERIFF'S SERGEANT Work Phone: [facility] 10-01-2021 11:12-0400 Respiratory rate 18 /min Angie Podlogar BELLY DANCER.SHERIFF'S SERGEANT Work Phone: [facility] 10-01-2021 11:12-0400 SaO2% (BldA) [Mass fraction] 100 % Angie Podlogar BELLY DANCER.SHERIFF'S SERGEANT Work Phone: [facility] 10-01-2021 11:12-0400 Systolic blood pressure 118 mm[Hg] Angie Podlogar BELLY DANCER.SHERIFF'S SERGEANT Work Phone: [facility] Encounters Encounter Date Encounter Type Care Provider Facility Start: 11-29-2023 ambulatory Minna Jackman MA [facility] Start: 11-29-2023 Patient encounter procedure Minna Jackman MA [facility] Start: 05-03-2023 ambulatory [facility] Comment on above: cdm outreach (Teleph on cdm) Start: 01-12-2023 ambulatory Evelina Shafer MD Work Phone: [facility] [place] Comment on above: fluoxetine Start: 01-05-2023 ambulatory Michael cook MD Work Phone: Neurology Comment on above: Gabapentin Start: 12-01-2022 ambulatory Michael cook MD Work Phone: Neurology Comment on above: Gabapentin doseage . .... 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, without long-term current use of insulin (HCC) (Primary Dx); Influenza A; Primary hypertension; Anxiety with depression; Pure hypercholesterolemia; Statin intolerance; At high risk for falls; Hypomagnesemia; RBBB; Major depressive disorder, recurrent, moderate (HCC) Start: 08-21-2022 End: 08-21-2022 ambulatory Michael Segal MD Work Phone: Neurology Comment on above: RLS (restless legs s yndrome) (Primary Dx) Start: 08-21-2022 End: 08-21-2022 Telemedicine consultation with patient Michael Segal MD Work Phone: [facility] Start: 08-18-2022 Refill Michael cook MD Work Phone: Neurology Comment on above: Refill Request Start: 07-22-2022 Telephone encounter Barbara Farmer Work Phone: Urology Comment on above: Appointment Start: 07-21-2022 ambulatory Evelina Shafer MD Work Phone: [facility] [place] Comment on above: Prozac Gabapentin .. Start: 07-16-2022 ambulatory Michael cook MD Work Phone: Neurology Comment on above: Gabapentin Vs. Sleep Start: 06-24-2022 End: 06-24-2022 ambulatory EVELINA [facility] Start: 06-22-2022 ambulatory Michael cook MD Work Phone: Neurology Comment on above: Virtual Meeting for June 26. Start: 06-05-2022 End: 06-05-2022 ambulatory Michael Segal MD Work Phone: Neurology Comment on above: RLS (restless legs s yndrome) (Primary Dx) Start: 06-05-2022 End: 06-05-2022 Telemedicine consultation with patient Michael Segal MD Work Phone: [facility] Start: 06-01-2022 End: 06-01-2022 Patient encounter procedure Evelina Shafer MD Work Phone: [facility] [place] Comment on above: Anxiety with depress ion (Primary Dx); Nausea Start: 05-28-2022 Telephone encounter Georges Shafer MD Work Phone: Family [facility] [place] Comment on above: Results Start: 05-27-2022 End: 05-27-2022 Subsequent hospital visit by physician [facility] (I-Stat) Work Phone: Cat Scan Comment on above: Gross hematuria [R31 .0] Start: 05-22-2022 Telephone encounter Georges Shafer MD Work Phone: [facility] [place] Comment on above: Appointment Start: 05-19-2022 End: 05-19-2022 Patient encounter procedure Hedy Nevarez APRN.CNP Work Phone: Kidney Medicine Comment on above: Hypertensive kidney disease with stage 3a chronic kidney disease (HCC) (Primary Dx); Hyponatremia Start: 05-18-2022 End: 05-18-2022 Patient encounter procedure Barbara Oarntes MD Work Phone: Urology Comment on above: BPH with obstruction /lower urinary tract symptoms (Primary Dx); Gross hematuria; Erectile dysfunction, unspecified erectile dysfunction type Start: 05-16-2022 ambulatory Evelina Shafer MD Work Phone: [facility] Comment on above: Flonase/Fluticasone ... Start: 05-04-2022 Orders Only Barbara Orantes MD Work Phone: Urology Comment on above: BPH with obstruction /lower urinary tract symptoms (Primary Dx) Start: 05-01-2022 End: 05-01-2022 Patient encounter procedure Evelina Shafer MD Work Phone: [facility] [place] Comment on above: Type 2 diabetes esperanza itus without complication, without long- term current use of insulin (HCC) (Primary Dx); CKD stage 2 due to type 2 diabetes mellitus (HCC); Hyponatremia; Hyperlipidemia, unspecified hyperlipidemia type; Statin intolerance; Primary hypertension; At high risk for falls; Need for COVID-19 vaccine Start: 04-20-2022 ambulatory Evelina Shafer MD Work Phone: [facility] Comment on above: Prozac prescription .... Refill Request Start: 04-17-2022 Chart abstracting [facility] Work Phone: Neurology Comment on above: Psg Check In (Adult) Start: 04-17-2022 End: 04-17-2022 Patient encounter procedure Evelina Shafer MD Work Phone: [facility] Comment on above: Primary hypertension (Primary Dx); Brain fog; History of COVID-19 Start: 04-16-2022 Refill [facility] Comment on above: Refill Request Start: 04-14-2022 ambulatory Evelina Shafer MD Work Phone: [facility] Comment on above: Elevated Blood Press ure ... Start: 04-06-2022 Telephone encounter Georges [facility]fer MD [facility] Comment on above: Results Start: 03-24-2022 End: 03-24-2022 Patient encounter procedure Minna Soriano APRN.CNP Work Phone: [facility] Comment on above: Suspected COVID-19 v irus infection (Primary Dx); Exposure to confirmed case of COVID-19 Start: 03-04-2022 ambulatory Evelina Shafer MD Work Phone: [facility] [place] Comment on above: proza Start: 03-03-2022 ambulatory Evelina Shafer MD Work Phone: [facility] [place] Comment on above: prozac Start: 01-29-2022 End: 01-29-2022 Patient encounter procedure Evelina Shafer MD Work Phone: [facility] Comment on above: Dehydration (Primary Dx); TRUPTI (acute kidney injury) (HCC); Moderate episode of recurrent major depressive disorder (HCC) Start: 01-29-2022 Telephone encounter Andrew tineo DO Work Phone: Kidney Medicine Comment on above: TRUPTI (Acute Kidney In jury) Start: 01-28-2022 Telephone encounter Angie jacques APRN.SHERIFF'S SERGEANT Work Phone: [facility] Comment on above: Results Start: 01-26-2022 ambulatory Evelina Shafer MD Work Phone: [facility] Comment on above: UPCOMING ARASELI'T. Start: 01-06-2022 Telephone encounter Angie jacques APRN.SHERIFF'S SERGEANT Work Phone: [facility] Comment on above: Results Start: 12-30-2021 End: 12-30-2021 Patient encounter procedure Daniel De Souzanguyễn Work Phone: Podiatry Comment on above: Type 2 diabetes esperanza itus without complication, with long-term current use of insulin (HCC) (Primary Dx); Plantar fasciitis; Hallux limitus, acquired, unspecified laterality Start: 12-30-2021 End: 12-30-2021 Subsequent hospital visit by physician Jose Luis [facility] [place] Work Phone: Radiology Comment on above: Pain [R52] Start: 12-08-2021 ambulatory Evelina Shafer MD Work Phone: [facility] [place] Comment on above: prozac Start: 12-02-2021 End: 12-02-2021 Patient encounter procedure Hedy Nevaerz BELLY DANCER.SHERIFF'S SERGEANT Work Phone: Kidney Medicine Comment on above: CKD (chronic kidney disease) stage 2, GFR 60-89 ml/min (Primary Dx); Hyponatremia Start: 11-28-2021 ambulatory Angelina hernandez RN Work Phone: [facility] Comment on above: [employer] Home Monitor ing (Update) Start: 11-11-2021 End: 11-11-2021 Patient encounter procedure Barbara Orantes MD Work Phone: Urology Comment on above: BPH with obstruction /lower urinary tract symptoms (Primary Dx); Erectile dysfunction, unspecified erectile dysfunction type Start: 10-14-2021 ambulatory Evelina Shafer MD Work Phone: [facility] Comment on above: Second part of my em ail Start: 10-01-2021 End: 10-01-2021 Patient encounter procedure Angie Li BELLY DANCER.SHERIFF'S SERGEANT Work Phone: Family [facility] [place] Comment on above: Anxiety with depress ion Start: 09-24-2021 ambulatory Kiersten fox RN Work Phone: [facility] Comment on above: community monitoring outreach (enrollment) Start: 09-23-2021 ambulatory Evelina Shafer MD [facility] Comment on above: Zoloft Start: 08-15-2021 Telephone encounter Georges Shafer MD Work Phone: [facility] [place] Comment on above: Results Start: 06-30-2021 End: 06-30-2021 Subsequent hospital visit by physician Jose Luis [facility] [place] Work Phone: Radiology Comment on above: Hyperreflexia [R29.2 ] Start: 09-24-2020 End: 09-24-2020 Subsequent hospital visit by physician Jose Luis [facility] [place] Work Phone: Radiology Comment on above: Acute pain of both k nees [M25.561, M25.562] Procedures Date Procedure Procedure Detail Performing Clinician Start: 05-27-2022 Ct abdomen & pelvis w/o contrst 1/> body re Luigi Suresh MD Work Phone: Start: 05-01-2022 PFIZER-BIONTECH COVI D-19 BIVALENT BOOSTER VACCINE, AGE 12+ YR Evelina Shafer MD Work Phone: Start: 12-30-2021 Radex foot complete minimum 3 views Daniel Alexandre Work Phone: Start: 11-11-2021 Urnls dip stick/tabl et rgnt auto w/o microscopy Barbara Orantes MD Work Phone: Start: 08-14-2021 Adult depression screening assessment Evelina Shafer MD Work Phone: Start: 06-30-2021 Radex spine cervical 2 or 3 views Osman Allison MD Work Phone: Start: 09-24-2020 Radiologic exam knee complete 4/more views Angie Podlogar BELLY DANCER.SHERIFF'S SERGEANT Work Phone: Start: 01-19-2014 Colonoscopy Georges Shafer MD Work Phone: Plan of Treatment Date Care Activity Detail Author Start: 12-18-2026 Urine microalbumin profile [facility] Start: 2026 RSV Vaccine (1 - 1-d ose 75+ series) RSV Vaccine (1 - 1-dose 75+ series) [facility] Start: 02-27-2024 Covid-19 Vaccine ( season) Covid-19 Vaccine ( season) [facility] Start: 02-27-2024 Influenza vaccination C [facility] Start: 01-20-2024 Colonoscopy COLONOSCOPY [facility] Start: 01-20-2024 COLORECTAL CANCER SCREENING COLORECTAL CANCER SCREENING [facility] Start: 01-20-2024 Screening for malign ant neoplasm of colon [facility] Start: 09-11-2023 3 comp foot exam completed DIABETIC FOOT EXAM [facility] Start: 09-11-2023 ANNUAL PCP TEAM [employer] SERVICES ANALYST MELINA DISEASE VISIT ANNUAL PCP TEAM CHRONIC DISEASE VISIT [facility] Start: 09-11-2023 BP CONTROLLED (<130/80) BP CONTROLLE D (<130/80) [facility] Start: 09-11-2023 Creatinine measurement Serum Creatin ine [facility] Start: 09-11-2023 Diabetic foot examination Diabetic Foot Exam [facility] Start: 09-11-2023 SERUM CREATININE SERUM CREATININE [facility] Start: 08-06-2023 BP CONTROLLED (<130/80) BP CONTROLLE D (<130/80) [facility] Start: 07-29-2023 Glaucoma screening Dilated Retinal E xam [facility] Start: 07-29-2023 Hepatitis C antibody , confirmatory test DILATED RETINAL EXAM [facility] Start: 06-28-2023 Advance Directive Discussion Advance Directive Discussion [facility] Start: 06-28-2023 Behavioral Health Screening Behavioral Health Screening [facility] Start: 06-01-2023 ANNUAL PCP TEAM PAYROLL SERVICES ANALYST MELINA DISEASE VISIT ANNUAL PCP TEAM CHRONIC DISEASE VISIT [facility] Start: 06-01-2023 BP CONTROLLED (<130/80) BP CONTROLLE D (<130/80) [facility] Start: 05-28-2023 SERUM CREATININE SERUM CREATININE [facility] Start: 05-19-2023 BP CONTROLLED (<130/80) BP CONTROLLE D (<130/80) [facility] Start: 05-01-2023 ANNUAL PCP TEAM PAYROLL SERVICES ANALYST MELINA DISEASE VISIT ANNUAL PCP TEAM CHRONIC DISEASE VISIT [facility] Start: 05-01-2023 BP CONTROLLED (<130/80) BP CONTROLLE D (<130/80) [facility] Start: 04-17-2023 ANNUAL PCP TEAM PAYROLL SERVICES ANALYST MELINA DISEASE VISIT ANNUAL PCP TEAM CHRONIC DISEASE VISIT [facility] Start: 03-31-2023 ANNUAL PCP TEAM PAYROLL SERVICES ANALYST MELINA DISEASE VISIT ANNUAL PCP TEAM CHRONIC DISEASE VISIT [facility] Start: 03-13-2023 Hemoglobin A1c measurement HbA1C [facility] Start: 03-13-2023 Hemoglobin A1c/Hemoglobin.total in Blood HBA1C [facility] Start: 02-26-2023 Covid-19 Vaccine () Covid-19 Vaccine () [facility] Start: 02-26-2023 Influenza vaccination C [facility] Start: 01-29-2023 ANNUAL PCP TEAM [employer] ANALYST MELINA DISEASE VISIT ANNUAL PCP TEAM CHRONIC DISEASE VISIT [facility] Start: 01-29-2023 SERUM CREATININE SERUM CREATININE [facility] Start: 01-27-2023 Hepatitis B surface antibody level LDL CHOLESTEROL [facility] Start: 01-05-2023 ANNUAL PCP TEAM [employer] SERVICES ANALYST MELINA DISEASE VISIT ANNUAL PCP TEAM CHRONIC DISEASE VISIT [facility] Start: 01-05-2023 BP CONTROLLED (<130/80) BP CONTROLLE D (<130/80) [facility] Start: 01-05-2023 Hepatitis B screening URINE AL BUMIN:CREATININE RATIO [facility] Start: 01-05-2023 SERUM CREATININE SERUM CREATININE [facility] Start: 12-02-2022 BP CONTROLLED (<130/80) BP CONTROLLE D (<130/80) [facility] Start: 11-22-2022 Hemoglobin A1c/Hemoglobin.total in Blood HBA1C [facility] Start: 11-13-2022 HEMOGLOBIN/HEMATOCRIT HEMOGLOBIN/HEM ATOCRIT [facility] Start: 11-13-2022 SERUM CREATININE SERUM CREATININE [facility] Start: 11-11-2022 BP CONTROLLED (<130/80) BP CONTROLLE D (<130/80) [facility] Start: 10-15-2022 ANNUAL PCP TEAM [employer] ANALYST MELINA DISEASE VISIT ANNUAL PCP TEAM CHRONIC DISEASE VISIT [facility] Start: 10-15-2022 BP CONTROLLED (<130/80) BP CONTROLLE D (<130/80) [facility] Start: 10-01-2022 ANNUAL PCP TEAM [employer] ANALYST MELINA DISEASE VISIT ANNUAL PCP TEAM CHRONIC DISEASE VISIT [facility] Start: 10-01-2022 BP CONTROLLED (<130/80) BP CONTROLLE D (<130/80) [facility] Start: 09-11-2022 End: 11-11-2022 POTASSIUM BLD POTASSIUM BLD Lab Routine Hyperkalemia Expected: 09/11/2022, Expires: 11/11/2022 [facility] Work Phone: Comment on above: Expected: 09/11/2022 , Expires: 11/11/2022 Start: 09-10-2022 End: 11-10-2022 Comprehensive metabolic 2000 panel - Serum or Plasma [facility] Work Phone: Comment on above: Expected: 09/10/2022 , Expires: 11/10/2022 Start: 09-10-2022 End: 11-10-2022 Hemoglobin A1c in Blood [facility] Work Phone: Comment on above: Expected: 09/10/2022 , Expires: 11/10/2022 Start: 09-10-2022 End: 11-10-2022 Magnesium [Mass/volume] in Serum or Plasma [facility] Work Phone: Comment on above: Expected: 09/10/2022 , Expires: 11/10/2022 Start: 09-04-2022 SERUM CREATININE SERUM CREATININE [facility] Start: 08-29-2022 COVID-19 VACCINE (7 - Moderna series) COVID-19 VACCINE (7 - Moderna series) [facility] Start: 08-14-2022 Adult depression screening assessment DEPRESSION SCREENING [facility] Start: 08-14-2022 ANNUAL PCP TEAM [employer] ANALYST MELINA DISEASE VISIT ANNUAL PCP TEAM CHRONIC DISEASE VISIT [facility] Start: 07-08-2022 Hemoglobin A1c/Hemoglobin.total in Blood HBA1C [facility] Start: 07-07-2022 3 comp foot exam completed DIABETIC FOOT EXAM [facility] Start: 07-02-2022 Hepatitis C antibody , confirmatory test DILATED RETINAL EXAM [facility] Start: 06-28-2022 ADVANCE DIRECTIVE DISCUSSION ADVANCE DIRECTIVE DISCUSSION [facility] Start: 06-28-2022 DEPRESSION ASSESSMENT DEPRESSION ASS ESSMENT [facility] Start: 05-18-2022 End: 07-18-2022 CREATININE BLD CREATININE BLD Lab Routine Gross hematuria Expected: 05/18/2022 (Approximate), Expires: 07/18/2022 [facility] Work Phone: Comment on above: Expected: 05/18/2022 (Approximate), Expires: 07/18/2022 Start: 05-04-2022 End: 07-04-2022 Bacteria identified in Urine by Culture URINE CULTURE Microbiology Routine BPH with obstruction/lower urinary tract symptoms Expected: 05/04/2022, Expires: 07/04/2022 [facility] Work Phone: Comment on above: Expected: 05/04/2022 , Expires: 07/04/2022 Start: 05-04-2022 End: 07-04-2022 Urinalysis complete panel - Urine URINALYSIS, WITH MICROSCOPIC Lab Routine BPH with obstruction/lower urinary tract symptoms Expected: 05/04/2022, Expires: 07/04/2022 [facility] Work Phone: Comment on above: Expected: 05/04/2022 , Expires: 07/04/2022 Start: 05-01-2022 End: 07-01-2022 Comprehensive metabolic 2000 panel - Serum or Plasma COMP METABOLIC PANEL Lab Routine Type 2 diabetes mellitus without complication, without long-term current use of insulin (HCC) Hyponatremia Expected: 05/01/2022, Expires: 07/01/2022 [facility] Work Phone: Comment on above: Expected: 05/01/2022 , Expires: 07/01/2022 Start: 05-01-2022 End: 07-01-2022 Hemoglobin A1c in Blood HGB A1C Lab Routine Type 2 diabetes mellitus without complication, without long-term current use of insulin (HCC) Expected: 05/01/2022, Expires: 07/01/2022 [facility] Work Phone: Comment on above: Expected: 05/01/2022 , Expires: 07/01/2022 Start: 03-24-2022 End: 04-07-2022 Influenza virus A and B RNA and SARS-CoV-2 (COVID-19) N gene panel - Respiratory specimen by ZAMZAM with probe detection COVID WITH FLUA+B, ROUTINE Microbiology Routine Suspected COVID-19 virus infection Exposure to confirmed case of COVID-19 Expected: 03/24/2022, Expires: 04/07/2022 [facility] Work Phone: Comment on above: Expected: 03/24/2022 , Expires: 04/07/2022 Start: 02-26-2022 Influenza vaccination INFLUENZA (#1) [facility] Start: 02-12-2022 Hepatitis B surface antibody level LDL CHOLESTEROL [facility] Start: 02-01-2022 End: 04-03-2022 Basic metabolic 2000 panel - Serum or Plasma BASIC METABOLIC PNL Lab Routine CKD (chronic kidney disease) stage 2, GFR 60-89 ml/min Hyponatremia Expected: 02/01/2022, Expires: 04/03/2022 [facility] Work Phone: Comment on above: Expected: 02/01/2022 , Expires: 04/03/2022 Start: 01-29-2022 End: 03-31-2022 Basic metabolic 2000 panel - Serum or Plasma [facility] Work Phone: Comment on above: Expected: 01/29/2022 , Expires: 03/31/2022 Start: 01-06-2022 End: 03-08-2022 Lipid 1996 panel - Serum or Plasma LIPID PANEL BASIC Lab Routine Screening for hyperlipidemia Expected: 01/06/2022, Expires: 03/08/2022 [facility] Work Phone: Comment on above: Expected: 01/06/2022 , Expires: 03/08/2022 Start: 01-05-2022 Hemoglobin A1c/Hemoglobin.total in Blood HBA1C [facility] Start: 12-31-2021 Hepatitis B screening URINE AL BUMIN:CREATININE RATIO [facility] Start: 12-06-2021 HEMOGLOBIN/HEMATOCRIT HEMOGLOBIN/HEM ATOCRIT [facility] Start: 11-20-2021 COVID-19 VACCINE (5 - Booster for Moderna series) COVID-19 VACCINE (5 - Booster for Moderna series) [facility] Start: 11-11-2021 End: 2022 Prostate Specific Ag Free [Mass/volume] in Serum or Plasma PSA FREE Lab Routine BPH with obstruction/lower urinary tract symptoms Expected: 11/11/2021, Expires: 2022 [facility] Work Phone: Comment on above: Expected: 11/11/2021 , Expires: 2022 Start: 11-11-2021 End: 2022 Testosterone [Mass/volume] in Serum or Plasma TESTOSTERONE TOTAL Lab Routine Erectile dysfunction, unspecified erectile dysfunction type Expected: 11/11/2021, Expires: 2022 [facility] Work Phone: Comment on above: Expected: 11/11/2021 , Expires: 2022 Start: 08-24-2021 COVID-19 VACCINE (4 - Booster for Moderna series) COVID-19 VACCINE (4 - Booster for Moderna series) [facility] Start: 06-28-2021 ADVANCE DIRECTIVE DISCUSSION ADVANCE DIRECTIVE DISCUSSION [facility] Start: 06-28-2021 DEPRESSION ASSESSMENT DEPRESSION ASS ESSMENT [facility] Start: 07-18-2013 FECAL OCCULT BLOOD FECAL OCCULT BLOO D [facility] Start: 07-18-2013 Screening for malign ant neoplasm of colon Fecal Occult Blood [facility] Start: 2011 Hepatitis B Vaccine (1 of 3 - Risk 3-dose series) Hepatitis B Vaccine (1 of 3 - Risk 3-dose series) [facility] Start: 2011 RSV Vaccine (1 - 1-d ose 60+ series) RSV Vaccine (1 - 1-dose 60+ series) [facility] Start: 01-12-1996 COLOGUARD (FIT-DNA) COLOGUARD (FIT-D NA) [facility] Start: 01-12-[address] COLONOGRAPHY [facility] Start: 01-12-1996 Screening for malign ant neoplasm of colon [facility] Start: 01-12-1996 SIGMOIDOSCOPY SIGMOIDOSCOPY [facility] Start: 1969 Anxiety Screening Anxiety Screening [facility] Start: 1969 BP CONTROLLED (<130/80) BP CONTROLLE D (<130/80) [facility] Start: 1969 Depression Screening Depression Scre ening [facility] End: 06-17-2023 Ct abdomen & pelvis w/o contrst 1/> body re CT UROGRAM WO/W IVCON Radiology Routine Gross hematuria 1 Occurrences starting 05/18/2022 until 06/17/2023 [facility] Work Phone: Comment on above: 1 Occurrences starti ng 05/18/2022 until 06/17/2023 CYTOLOGY NON-BRAID CUTTER CYTOLOGY NON-GY N Lab Routine Gross hematuria 05/18/2022 12:23 PM EST [facility] Work Phone: Protein/Creatinine [Mass Ratio] in Urine PROTEIN CREATININE RATIO Lab Routine CKD (chronic kidney disease) stage 2, GFR 60-89 ml/min Ordered: 12/02/2021 [facility] Work Phone: Comment on above: Ordered: 12/02/2021 [facility] Immunizations Immunization Date Immunization Notes Care Provider Fa cili 05-01-2022 COVID-19 booster vaccine, age 12+ yr, bivalent (PFIZER-BIONTECH) Evelina Shafer MD Work Phone: [facility] 04-15-2022 influenza virus vaccine, unspecified formulation Ct (I-Stat) Work Phone: [facility] 09-02-2021 COVID-19 vaccine, ag e 12+ yr (PFIZER-BIONTECH - PURPLE TOP) Angie Nuñezloglibrado [facility] Work Phone: [facility] Work Phone: 04-23-2021 COVID-19 vaccine, fu ll dose (MODERNA) Evelina Shafer MD Work Phone: [facility] 04-23-2021 influenza (aIIV4) vaccine, age 65+ yr, quadrivalent, PF (FLUAD QUADRIVALENT) Angie Nuñezloglibrado [facility] Work Phone: [facility] Work Phone: 02-25-2021 influenza, high dose seasonal, preservative-free Evelina Shafer MD Work Phone: [facility] 09-10-2020 COVID-19 vaccine, fu ll dose (MODERNA) Evelina Shafer MD Work Phone: [facility] 08-14-2020 COVID-19 vaccine, fu ll dose (MODERNA) Evelina Shafer MD Work Phone: [facility] 03-12-2020 influenza, high-dose , quadrivalent vaccine (FLUZONE HIGH DOSE QUADRIVALENT) Evelina Shafer MD Work Phone: [facility] Work Phone: 03-11-2020 influenza, high-dose , quadrivalent vaccine (FLUZONE HIGH DOSE QUADRIVALENT) Evelina Shafer MD Work Phone: [facility] Work Phone: 12-13-2019 zoster vaccine recombinant Evelina Shafer MD Work Phone: [facility] 08-02-2019 zoster vaccine recombinant Evelina Shafer MD Work Phone: [facility] 03-20-2019 influenza virus vaccine, unspecified formulation Evelina Shafer MD Work Phone: [facility] Work Phone: 10-18-2018 measles, mumps and rubella virus vaccine Evelina Shafer MD Work Phone: [facility] 06-24-2018 influenza, high dose seasonal, preservative-free Evelina Shafer MD Work Phone: [facility] 07-26-2017 influenza, seasonal, injectable Evelina Shafer MD Work Phone: [facility] 07-26-2017 pneumococcal polysaccharide vaccine, 23 valent Evelina Shafer MD Work Phone: [facility] 12-18-2016 tetanus and diphther ia toxoids, adsorbed, preservative free, for adult use (5 Lf of tetanus toxoid and 2 Lf of diphtheria toxoid) Evelina Shafer MD Work Phone: [facility] 05-26-2016 pneumococcal conjuga te vaccine, 13 valent Evelina Shafer MD Work Phone: [facility] 04-09-2015 influenza, injectabl e, quadrivalent, contains preservative Evelina Shafer MD Work Phone: [facility] 10-11-2014 zoster vaccine, live Huey wendy Shafer MD Work Phone: [facility] 07-18-2012 influenza virus vaccine, unspecified formulation Evelina Shafer MD Work Phone: [facility] 08-02-2009 pneumococcal polysaccharide vaccine, 23 valent Evelina Shafer MD Work Phone: [facility] 08-02-2009 tetanus toxoid, redu tanna diphtheria toxoid, and acellular pertussis vaccine, adsorbed Evelina Shafer MD Work Phone: [facility] 04-24-2009 influenza virus vaccine, unspecified formulation Evelina Shafer MD Work Phone: [facility] 05-31-2008 influenza virus vaccine, unspecified formulation Evelina Shafer MD Work Phone: [facility] Work Phone: Payers Date Payer Category Payer Unknown MMO MMO MEDICARE SUPPLEMENT [id number] 2018-Present [phone] [address] [place] [address] Indemnity [id number] 2018 Unknown MMO MMO MEDICARE SUPPLEMENT [id number] 2018-Present [phone] [address] [place] [address] Indemnity [id number] 2015 Medicare MEDICARE MEDICAR E A AND B [id number] 2015-Present [phone] [place] [address] Medicare [id number] 2015 Medicare MEDICARE MEDICAR E A AND B [id number] 2015-Present [phone] [place] [address] Medicare [id number] 1950 Unknown [id number] Medicare [id number] Unknown [id number] Social History Date Type Detail Facility Start: 06-08-2016 End: 03-24-2022 Tobacco smoking status NHIS Never smoked tobacco [facility] Start: 07-03-2020 End: 08-14-2021 Alcohol intake Ex-drinker (finding) [facility] Start: 08-12-2021 End: 05-26-2022 History SDOH Alcohol Frequency 1 [facility] Start: 08-12-2021 End: 05-26-2022 History SDOH Social Connections Phone 5 [facility] Start: 08-12-2021 End: 05-26-2022 History SDOH Social Connections Get Together 2 [facility] Start: 08-12-2021 End: 05-26-2022 History SDOH Social Connections Living 3 [facility] Start: 06-25-2019 Education 12 [facility] Start: 1950 Sex Assigned At Male [facility] Start: 08-25-2020 End: 05-28-2022 Exposure to SARS-CoV-2 (event) Not sure [facility] Start: 01-16-2022 End: 01-26-2022 Exposure to SARS-CoV-2 (event) Unable to assess [facility] Work Phone: Start: 06-08-2016 End: 03-24-2022 Tobacco use and exposure Smokeless tobacco non-user [facility] Start: 05-26-2022 History SDOH Alcohol Std Drinks 0 [facility] Start: 05-26-2022 History SDOH Physical Activity DPW 6 [facility] Start: 06-01-2020 End: 05-26-2022 History of Social function [facility] Start: 06-01-2020 End: 05-26-2022 Social connection and isolation panel [facility] Do you belong to any clubs or organizations such as scientologist groups, unions, fraternal or athletic groups, or school groups? No [facility] Are you now , , , , never or living with a partner? [facility] How often to you hav e a drink containing alcohol? Never [facility] How many standard dr inks containing alcohol do you have on a typical day? Patient does not drink [facility] How hard is it for y ou to pay for the very basics like food, housing, medical care, and heating Somewhat hard [facility] Do you feel stress - tense, restless, nervous, or anxious, or unable to sleep at night because your mind is troubled all the time - these days [OSQ] Only a little [facility] (I/We) worried wheth er (my/our) food would run out before (I/we) got money to buy more. Never true [facility] Start: 01-05-2019 Gender identity Identifies as male gender (finding) [facility] Start: 04-11-2019 Sexual orientation Heterosexual (finding) [facility] Do you feel stress - tense, restless, nervous, or anxious, or unable to sleep at night because your mind is troubled all the time - these days [OSQ] Very much [facility] Medical Equipment Procedure Code Equipment Code Equipment Origin al Text Equipment Identifier Dates [id number], [id number], [id number] Start: 11-02-2013 End: 10-14-2022 Comment on above: Test blood sugar(s) 1 times daily. E11.9-type 2 diabetes mellitus, no insulin check blood sugar as directed every other day 250.00 Non Insulin dependent Goals Date Patient Goal Desired Activity /State Personal health goal Comment on above: Formatting of this n ote might be different from the original. For zoloft to continue with helping his mood and to be on the 75mg daily. Personal health goal Comment on above: Formatting of this n ote might be different from the original. For zoloft to continue with helping his mood and to be on the 75mg daily. Clinical Notes 09-24-2020 to 11-29-2023 Minna Jackman MA - 11/29/2023 10:29 AM Petty Dueñas RN - 05/03/2023 3:30 PM ESTAddendum Note - Michael Segal MD - 01/06/2023 2:29 PM EDT Note Date & Type Note Facility 11-29-2023 Note HNO ID: [id number] Author: MINNA JACKMAN MA Service: ? Author Type: Senior Sql Developer Type: Progress Notes Filed: 11/29/2023 10:32 Note Text: POPULATION HEALTH NAVIGATION OUTREACH Action/FYI PCP is Dr. Hidalgo per chart PCP FIELD UPDATES Reason for Outreach Care Gap/HCC or Scheduling Wellness Visits Care Gaps due: Establish Care Appointment Patient Contacted: Unable or unnecessary to reach patient: PCP field updated Navigation Signature: Minna Jackman MA November 29, 2023 10:29 AM [facility] 11-29-2023 History of Present illness Narrative POPULATION HEALTH NAVIGATION OUTREACH Action/FYI PCP is Dr. Hidalgo per chart PCP FIELD UPDATES Reason for Outreach Care Gap/HCC or Scheduling Wellness Visits Care Gaps due: Establish Care Appointment Patient Contacted: Unable or unnecessary to reach patient: PCP field updated Navigation Signature: Minna Jackman MA November 29, 2023 10:29 AM documented in this encounter [facility] 11-29-2023 Note Patient Outreach (NE TNAV) OSMAN PADGETT ([id number]) 1950 M Date Time Provider Department 11/29/23 MINAN JACKMAN During your visit today, we recorded the following information about you: Minna Jackman MA 11/29/2023 10:32 AM Signed POPULATION [facility] NAVIGATION OUTREACH Action/I PCP is Dr. Hidalgo per chart PCP FIELD UPDATES Reason for Outreach Care Gap/HCC or Scheduling Wellness Visits Care Gaps due: Establish Care Appointment Patient Contacted: Unable or unnecessary to reach patient: PCP field updated Navigation Signature: Minna Jackman MA November 29, 2023 10:29 AM Allergies As of Date: 11/29/2023 Noted Allergy Reaction BENADRYL (DIPHENHYDRAMINE) 07/01/2020 14 - Other: See Comments Comments: Paradoxical effect FLOMAX (TAMSULOSIN) 06/26/2019 14 - Other: See Comments Comments: Problem with ejaculation LIPITOR (ATORVASTATIN) 12/28/2019 1 - Mental Status Change Comments: Confusion PENICILLINS 11/18/2005 2 - Rash [id number] REDUCTASE INHIBIT*05/18/2022 1 - Mental Status Change THIAZIDES 03/02/2021 15 - Contraindication-Medical [place]* Comments: hypoNa TRAZODONE 07/01/2020 1 - Mental Status Change Comments: Increased anxiety ZETIA (EZETIMIBE) 09/10/2022 1 - Mental Status Change Date Reviewed: 09/10/2022 Reviewed by: Abril Vallecillo LPN - Fully Assessed Prescriptions as of 11/29/2023 - gabapentin (NEURONTIN) 400 mg capsule TAKE [...] Insulin dependent Problem List As Of Date 11/29/2023 Noted Resolved Type 2 diabetes mellitus with [...] with stage 3a chron*08/27/2022 Encounter Status:Closed by MINNA JACKMAN on 11/29/23 [facility] 07-15-2023 Note HNO ID: [id number] Author: PETTY JOE RN Service: ? Author Type: Registered Nurse Type: Progress Notes Filed: 07/15/2023 10:58 Note Text: CD Telephonic Outreach Provider Action/FYI Contacted for: Routine Telephonic Outreach Contact made with patient: Yes Patient identified by name and date of . Discussed care with patient Are you experiencing any new or worsening symptoms you need to talk about today? Patient reports he is changing to a non [facility] PCP. [facility] 07-15-2023 Note Patient Outreach (AM [facility]) OSMAN PADGETT ([id number]) 1950 M Date Time Provider Department 07/15/23 PETTY JOE During your visit today, we recorded the following information about you: Petty Joe, FARZANA 07/15/2023 10:58 AM Signed [facility] Telephonic Outreach Provider Action/FYI Contacted for: Routine [...] Comments: Confusion PENICILLINS 11/18/2005 2 - Rash [id number] REDUCTASE INHIBIT*05/18/2022 1 - Mental Status Change [...] stage 3a chron*08/27/2022 Encounter Status:Closed by PETTY JOE on 07/15/23 [facility] 05-17-2023 Note HNO ID: [id number] Author: Petty Joe, RN Service: ? Author Type: Registered Nurse [...] he no longer has a [facility] provider. [facility] 05-17-2023 Note Patient Outreach [place] [facility] OSMAN PADGETT ([id number]) 1950 M Date Time Provider Department 05/17/23 PETTY JOE During your visit today, we recorded the following information about you: Petty Joe RN 05/17/2023 8:36 AM Signed CDM Telephonic [...] Comments: Confusion PENICILLINS 11/18/2005 2 - Rash [id number] REDUCTASE INHIBIT*05/18/2022 1 - Mental Status Change [...] stage 3a chron*08/27/2022 Encounter Status:Closed by PETTY JOE on 05/17/23 [facility] 05-03-2023 Note HNO ID: [id number] Author: Petty Joe RN Service: ? Author Type: Registered Nurse Type: Progress Notes Filed: 05/03/2023 3:32 PM Note Text: CDM Telephonic Outreach Provider Action/FYI Converted to telephonic Contacted for: Routine Telephonic Outreach Contact made with patient: No, left message. Petty Joe RN May 03, 2023 3:30 PM [facility] 05-03-2023 History of Present illness Narrative CDM Telephonic Outreach Provider Action/FYI Converted to telephonic Contacted for: Routine Telephonic Outreach Contact made with patient: No, left message. Petty Joe RN May 03, 2023 3:30 PM documented in this encounter [facility] 05-03-2023 Note Patient Outreach (AM [facility]) OSMAN PADGETT ([id number]) 1950 M Date Time Provider Department 05/03/23 PETTY JOE [facility] During your visit today, we recorded the following information about you: Petty Joe RN 05/03/2023 3:32 PM Signed CDM Telephonic Outreach Provider Action/FYI Converted to telephonic Contacted for: Routine Telephonic Outreach Contact made with patient: No, left message. ePtty Joe RN May 03, 2023 3:30 PM Allergies As of Date: 05/03/2023 Noted Allergy Reaction BENADRYL (DIPHENHYDRAMINE) 07/01/2020 14 - Other: See Comments Comments: Paradoxical effect FLOMAX (TAMSULOSIN) 06/26/2019 14 - Other: See Comments Comments: Problem with ejaculation LIPITOR (ATORVASTATIN) 12/28/2019 1 - Mental Status Change Comments: Confusion PENICILLINS 11/18/2005 2 - Rash DEYKNBS-ROJ-OAN REDUCTASE INHIBIT*05/18/2022 1 - Mental Status Change [...] stage 3a chron*08/27/2022 Encounter Status:Closed by PETTY JOE on 05/03/23 [facility] 01-06-2023 Miscellaneous Notes Addended by: MICHAEL SEGAL on: 01/06/2023 02:29 PM Modules accepted: Orders documented in this encounter [facility] 09-11-2022 Miscellaneous Notes Patient notified of providers message below. Voices understanding. Rosetta Rahman LPN Diabetes well controlled. Magnesium level normal. Sodium level low which is similar to his previous labs. Potassium level elevated. Patient needs to follow up with his hospice nurse regarding low sodium levels. Will recheck potassium level early next week to rule out lab error. No change to regimen. documented in this encounter [facility] 09-10-2022 History of Present illness Narrative Chief [...] his sodium level was low 129 at [facility] on 03/[address] Gerard's [...] Ophthalmology exam was within the past 3 months-[place] [facility] [place] about 1 month ago. No reported retinopathy Last Podiatry exam was more than 12 months ago [facility] Cardiology started him on zetia at [...] [Atorvastat* Mental Status Change Confusion Penicillins Rash Zzjupmd-Kyo-Gin Red* Mental Status Change Thiazides Contraindication-Medical Surgical [...] Evelina Shafer MD documented in this encounter [facility] 09-10-2022 Evaluation note Diagnosis Type 2 diabetes mellitus with stage 3a chronic kidney disease, without long-term current use of insulin (HCC)- Primary Influenza A Influenza with other respiratory manifestations Primary hypertension Unspecified essential hypertension Anxiety with depression Pure hypercholesterolemia Statin intolerance Other drug allergy At high risk for falls Personal history of fall Hypomagnesemia Disorders of magnesium metabolism RBBB Right bundle branch block Major depressive disorder, recurrent, moderate (HCC) Major depressive disorder, recurrent episode, moderate documented in this encounter [facility]02-24-2023 Instructions* Patient Instructions* Michael Segal MD - 08/21/2022 11:46 AM EST IMPRESSION: [...] up with me in 6 months. Michael Segal MD documented in this encounterCleveland Clinic [facility]02-[facility]23 History of Present illness Narrative* Michael Segal MD - 08/21/2022 11:25 AM EST Images from the original note were not included. [facility] Follow up/ Established patient [...] or near accidents due to drowsy drivin [place] Sleepiness Scale 06/04/2022 08/14/2022 Score 2 (No [...] [Atorvastat* Mental Status Change Confusion Penicillins Rash Ublslip-Qnc-Ykw Red* Mental Status Change Thiazides Contraindication-Medical Surgical [...] 4 after maximal dose achieved, contact PACU medical resident/LIP/staff for reassessment. Starting date: 12/20/2020 Ending date: [...] up with me in 6 months. Michael Segal MD I spent 25 minutes in the visit, with more than 50% of the total azhn-eq-tdox time of the visit in counseling / coordination of care. documented in this encounterC[facility]01-25-2023 Miscellaneous Notes* Telephone Encounter - Clotilde Colón Pss - 07/22/2022 11:19 AM EST Patient contacted. Attempted to schedule follow up with Dr. Orantes. Patient declined at this time. States he will call if/when he needs any further care. Patient is also not interested in physical therapy right now. documented in this encounterCleveland Clinic [facility]01-24-2023 Miscellaneous Notes* Telephone Encounter - Abril Vallecillo LPN - 07/21/2022 8:08 AM EST Phoned patient to advise that a 90 day supply with 1 refill was sent to [facility] on 06/01/22. He stated he would follow up with Vladislav. documented in this encounterCleveland Clinic [facility]01-19-2023 Miscellaneous Notes* Telephone Encounter - Dianna So RN - 07/16/2022 8:57 AM EST MyChart message sent documented in this [facility]12-27-2022 Miscellaneous Notes* Telephone Encounter - Dianna So RN - 06/23/2022 11:09 AM EST MyChart message sent documented in this encounterC[facility]12-09-2022 History of Present illness Narrative* Michael Segal MD - 06/05/2022 5:00 PM EST Images from the original note were not included. [facility] Follow up/ Established patient [...] or near accidents due to drowsy drivin [place] Sleepiness Scale 06/04/2022 Score 2 (No daytime [...] [Atorvastat* Mental Status Change Confusion Penicillins Rash Omrrsta-Jrl-Ltq Red* Mental Status Change Thiazides Contraindication-Medical Surgical [...] 4 after maximal dose achieved, contact PACU medical resident/LIP/staff for reassessment. Starting date: 12/20/2020 Ending date: [...] hour before bed. Start as directed. Michael Segal MD documented in this encounterCleveland Clinic [facility]12-05-2022 History of Present illness Narrative* Evelina Shafer [...] [Atorvastat* Mental Status Change Confusion Penicillins Rash Htbtedy-Jgi-Und Red* Mental Status Change Thiazides Contraindication-Medical Surgical [...] above. Evelina Shafer MD documented in this encounterC[facility]12-01-2022 Miscellaneous Notes* Telephone Encounter - Abril Vallecillo [...] keep scheduled follow up. documented in this encounterC[facility] Clinic [facility]11-30-2022 History of Present illness Narrative* Yeimi Salazar [...] 2022 TIME: 9:41 AM documented in this encounterCleveland Clinic [facility]11-25-2022 Miscellaneous Notes* Telephone Encounter - Kobi Gomez LPN - 05/22/2022 2:28 PM EST Pt calling in to schedule appointment for next week to discuss medication. No openings at a time that pt could come to. Appointment scheduled 06/01/22 per pt's request. Kobi Gomez LPN documented in this encounterCleveland Clinic [facility]11-22-2022 Instructions* Patient Instructions* Hedy Nevarez APRN.SAGE - [...] Follow-up in 6 months documented in this encounterCleveland Clinic [facility]11-22-2022 History of Present illness Narrative* Hedy Nevarez APRN.SAGE - 05/19/2022 11:10 AM EST [facility] SERVICE DATE: 05/19/2022 [...] [Atorvastat* Mental Status Change Confusion Penicillins Rash Oywerqe-Hku-Zfv Red* Mental Status Change Thiazides Contraindication-Medical Surgical [...] on US 02/2021 BP: controlled Anemia: Hgb 14.1 Metabolic [...] 19, 2022 TIME: 11:10 AM OFFICE NUMBER: [phone] CC: REFERRING PROVIDER: Hedy Nevarez APRN.CNP PRIMARY CARE PHYSICIAN: Evelina Shafer MD documented in this encounterCleveland Clinic [facility]11-22-2022 Evaluation note* Diagnosis Hypertensive kidney disease with stage 3a chronic kidney disease (HCC)- Primary Hyponatremia Hyposmolality and/or hyponatremia documented in this encounter [facility]11-21-2022 Procedure note* Barbara Orantes MD - 05/18/2022 [...] Condition Post Procedure: satisfactory documented in this encounterCleveland Clinic [facility]11-21-2022 Nurse Note* Ana María Pelayo LPN - [...] Drape. Anesthetic Given: 10 cc 2% Lidocaine kellylladvid Pelayo LPN * Flora Sheth - 05/18/2022 11:07 AM EST Pvr 0 documented in this encounterCleveland Clinic [facility]11-21-2022 History of Present illness Narrative* Barbara Orantes MD - 05/18/2022 11:00 AM EST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 unspecified hyperlipidemia type Statin intolerance Other drug allergy Primary hypertension Unspecified essential hypertension At high risk for falls Personal history of fall Need for COVID-19 vaccine [facility] Diagnosis BPH with obstruction/lower urinary tract symptoms- Primary Hypertrophy of prostate with urinary obstruction and other lower urinary tract symptoms (LUTS) [facility] Diagnosis Non-seasonal allergic rhinitis, unspecified trigger- Primary [facility]* Diagnosis BPH with obstruction/lower urinary tract symptoms- Primary Hypertrophy of prostate with urinary obstruction and other lower urinary tract symptoms (LUTS) Gross hematuria Erectile dysfunction, unspecified erectile dysfunction type [facility]* Diagnosis Anxiety with depression- Primary Nausea Nausea alone [facility]* Diagnosis RLS (restless legs syndrome)- Primary Restless legs syndrome (RLS) [facility]* Diagnosis Hyperkalemia- Primary Hyperpotassemia [facility]* Diagnosis RLS (restless legs syndrome)- Primary Restless legs syndrome (RLS) [facility]* Diagnosis Hyperkalemia- Primary Hyperpotassemia [facility]* Diagnosis 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 classified elsewhere RLS (restless legs syndrome) Restless legs syndrome (RLS) [facility]* Diagnosis Gross hematuria [facility]* Diagnosis Pre-operative examination- Primary Preoperative examination, unspecified BPH with obstruction/lower urinary tract symptoms Hypertrophy of prostate with urinary obstruction and other lower urinary tract symptoms (LUTS) Stage 3a chronic kidney disease (HCC) Claustrophobia Other isolated or specific phobias Controlled type 2 diabetes mellitus without complication, without long-term current use of insulin (HCC) Essential hypertension Unspecified essential hypertension Pure hypercholesterolemia Other right bundle-branch block Hyperreflexia Abnormal reflex Ataxia Lack of coordination Dizziness and giddiness Myalgias Muscle tightness Unspecified disorder of muscle, ligament, and fascia Lumbar spondylosis Lumbosacral spondylosis without myelopathy [facility]* Diagnosis Acute pain of both knees Pre-operative examination- Primary Preoperative examination, unspecified BPH with obstruction/lower urinary tract symptoms Hypertrophy of prostate with urinary obstruction and other lower urinary tract symptoms (LUTS) Stage 3a chronic kidney disease (HCC) Claustrophobia Other isolated or specific phobias Controlled type 2 diabetes mellitus without complication, without long-term current use of insulin (HCC) Essential hypertension Unspecified essential hypertension Pure hypercholesterolemia Other right bundle-branch block documented in this encounter [facility] for referral (narrative)* Diagnostic Procedure Only (Routine) - Closed Specialty Diagnoses / Procedures Referred By Contac t Referred To Contact XR IMAGING Diagnoses Pain Procedures XR FOOT GENERAL 3V AP/LAT/OBL BILATERAL RADEX FOOT COMPLETE MINIMUM 3 VIEWS Daniel Alexandre [address] [place] [address] Xr Imaging Referral ID Status Reason Start Date Expiration Date V isits Requested Visits Authorized [id number] Closed Auto-Generate d Referral 12/26/2021 01/25/2023 1 1 [facility] for referral (narrative)* Diagnostic Procedure Only (Routine) - Closed Specialty Diagnoses / Procedures Referred By Contac t Referred To Contact XR IMAGING Diagnoses Hyperreflexia Ataxia Dizziness and giddiness Myalgias Muscle tightness Lumbar spondylosis Procedures XR LUMBAR GENERAL 3V AP/LAT/L5-S1 X-RAY L-S SPINE AP/LATERAL Osman Allison Jr., MD [address] [facility] [address] [place] [address] [place] [id number] Referral ID Status Reason Start Date Expiration Date V isits Requested Visits Authorized [id number] Closed Auto-Generate d Referral 06/30/2021 07/30/2022 1 1 * Diagnostic Procedure Only (Routine) - Closed Specialty Diagnoses / Procedures Referred By Contac t Referred To Contact XR IMAGING Diagnoses Hyperreflexia Ataxia Dizziness and giddiness Myalgias Muscle tightness Procedures XR CERV GENERAL 2V AP/LAT CERVICAL AP/LAT + ODONTOID/A21 Osman Allison Jr., MD [address] [facility] [address] [place] [address] [place] [address] Referral ID Status Reason Start Date Expiration Date V isits Requested Visits Authorized [id number] Closed Auto-Generate d Referral 06/30/2021 07/30/2022 1 1 [facility] for visit Narrative* Diagnostic Procedure Only (Routine) - Closed Specialty Diagnoses / Procedures Referred By Contac t Referred To Contact XR IMAGING Diagnoses Pain Procedures XR FOOT GENERAL 3V AP/LAT/OBL BILATERAL RADEX FOOT COMPLETE MINIMUM 3 VIEWS Daniel Alexandre[address] [place] [address] Xr Imaging Referral ID Status Reason Start Date Expiration Date V isits Requested Visits Authorized [id number] Closed Auto-Generate d Referral 12/26/2021 01/25/2023 1 1 [facility] for visit Narrative* Diagnostic Procedure Only (Routine) - Closed Specialty Diagnoses / Procedures Referred By Contac t Referred To Contact XR IMAGING Diagnoses Hyperreflexia Ataxia Dizziness and giddiness Myalgias Muscle tightness Lumbar spondylosis Procedures XR LUMBAR GENERAL 3V AP/LAT/L5-S1 X-RAY L-S SPINE AP/LATERAL Osman Allison Jr., MD [address] [place] [id number] [place] [address] Referral ID Status Reason Start Date Expiration Date V isits Requested Visits Authorized [id number] Closed Auto-Generate d Referral 06/30/2021 07/30/2022 1 1 [facility] Summary Purpose Family History No Family History Records FoundNo Family History Records FoundNo Family History Records Found Advance Directives Documents on File Type Date Recorded 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 Advance Directive(s) 12/02/2020 9:50 AM Documents on File Type Date Recorded 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 Advance Directive(s) 12/02/2020 9:50 AM Health Concerns Infection Onset Date Last Indicated Resolved Time COVID-19 Rule-Out 03/24/2022 03/24/2022 Infection Onset Date Last Indicated Resolved Time COVID-19 Confirmed 03/24/2022 03/24/2022 10/17/202 2 8:51 PM EDT Infection Onset Date Last [...] Referral Specialty Diagnoses / [facility] Diagnoses At high risk for falls Procedures CONSULT TO PHYSICAL THERAPY PHYSICAL THERAPY EVALUATION HIGH COMPLEX 45 MINS Evelina Shafer MD [address] [place] [address] [facility] [place] [address] [place] [address] Referral ID Status Reason Start Date Expiration Date Visits Requested Visits Authorized [id number] Authorized PCP Requested Referral Auto-Generate d Referral 05/01/2022 05/01/2023 99 99 Specialty Diagnoses / Procedures [facility] IM[facility]ING Diagnoses Gross hematuria Procedures CT UROGRAM WO/W IVCON CT ABD & PELVIS W/O CONTRST 1+ BODY REGNS Urol [facility] [address] [place] [id number] Imaging Referral ID Status Reason Start Date Expiration Date Visits Requested Visits Authorized [id number] Authorized Auto-Generat ed Referral 06/17/2023 1 1 Specialty Diagnoses / Procedures Referred By [facility] Referred To Contact CT IMAGING Diagnoses Gross hematuria Procedures CT UROGRAM WO/W IVCON CT ABD & PELVIS W/O CONTRST 1+ BODY REGNS Urol [facility] [address] [place] [address] [place] [id number] Referral ID Status Reason Start Date Expiration Date V isits Requested Visits Authorized [id number] Closed Auto-Generate d Referral 05/18/2022 06/17/2023 1 [...] ized section and content) DATE CREATED AUTHOR 07/25/2021 [facility] DATE CREATED AUTHOR AUTHOR'S ORGANIZ ATION 06/29/2022 [facility] DATE CREATED AUTHOR AUTHOR'S ORGANIZ ATION 11/29/2023 [facility] Source Comments (unrecognize d section and content) In the event this informatio n is protected by the Federal Confidentiality of Alcohol and Drug Abuse Patient Records regulations: The Federal rules restrict any use of the information to criminally investigate or prosecute any alcohol or drug abuse patient.[facility] the event this information is protected by the Federal Confidentiality of Alcohol and Drug Abuse Patient Records regulations: The Federal rules restrict any use of the information to criminally investigate or prosecute any alcohol or drug abuse patient.[facility] the event this information is protected by the Federal Confidentiality of Alcohol and Drug Abuse Patient Records regulations: The Federal rules restrict any use of the information to criminally investigate or prosecute any alcohol or drug abuse patient.[facility] the event this information is protected by the Federal Confidentiality of Alcohol and Drug Abuse Patient Records regulations: The Federal rules restrict any use of the information to criminally investigate or prosecute any alcohol or drug abuse patient.[facility] the event this information is protected by the Federal Confidentiality of Alcohol and Drug Abuse Patient Records regulations: The Federal rules restrict any use of the information to criminally investigate or prosecute any alcohol or drug abuse patient.[facility] the event this information is protected by the Federal Confidentiality of Alcohol and Drug Abuse Patient Records regulations: The Federal rules restrict any use of the information to criminally investigate or prosecute any alcohol or drug abuse patient.[facility] the event this information is protected by the Federal Confidentiality of Alcohol and Drug Abuse Patient Records regulations: The Federal rules restrict any use of the information to criminally investigate or prosecute any alcohol or drug abuse patient.[facility] the event this information is protected by the Federal Confidentiality of Alcohol and Drug Abuse Patient Records regulations: The Federal rules restrict any use of the information to criminally investigate or prosecute any alcohol or drug abuse patient.[facility] the event this information is protected by the Federal Confidentiality of Alcohol and Drug Abuse Patient Records regulations: The Federal rules restrict any use of the information to criminally investigate or prosecute any alcohol or drug abuse patient.[facility] the event this information is protected by the Federal Confidentiality of Alcohol and Drug Abuse Patient Records regulations: The Federal rules restrict any use of the information to criminally investigate or prosecute any alcohol or drug abuse patient.[facility] the event this information is protected by the Federal Confidentiality of Alcohol and Drug Abuse Patient Records regulations: The Federal rules restrict any use of the information to criminally investigate or prosecute any alcohol or drug abuse patient.[facility] the event this information is protected by the Federal Confidentiality of Alcohol and Drug Abuse Patient Records regulations: The Federal rules restrict any use of the information to criminally investigate or prosecute any alcohol or drug abuse patient.[facility] the event this information is protected by the Federal Confidentiality of Alcohol and Drug Abuse Patient Records regulations: The Federal rules restrict any use of the information to criminally investigate or prosecute any alcohol or drug abuse patient.[facility] the event this information is protected by the Federal Confidentiality of Alcohol and Drug Abuse Patient Records regulations: The Federal rules restrict any use of the information to criminally investigate or prosecute any alcohol or drug abuse patient.[facility] the event this information is protected by the Federal Confidentiality of Alcohol and Drug Abuse Patient Records regulations: The Federal rules restrict any use of the information to criminally investigate or prosecute any alcohol or drug abuse patient.[facility] the event this information is protected by the Federal Confidentiality of Alcohol and Drug Abuse Patient Records regulations: The Federal rules restrict any use of the information to criminally investigate or prosecute any alcohol or drug abuse patient.[facility] the event this information is protected by the Federal Confidentiality of Alcohol and Drug Abuse Patient Records regulations: The Federal rules restrict any use of the information to criminally investigate or prosecute any alcohol or drug abuse patient.[facility] the event this information is protected by the Federal Confidentiality of Alcohol and Drug Abuse Patient Records regulations: The Federal rules restrict any use of the information to criminally investigate or prosecute any alcohol or drug abuse patient.[facility] the event this information is protected by the Federal Confidentiality of Alcohol and Drug Abuse Patient Records regulations: The Federal rules restrict any use of the information to criminally investigate or prosecute any alcohol or drug abuse patient.[facility] the event this information is protected by the Federal Confidentiality of Alcohol and Drug Abuse Patient Records regulations: The Federal rules restrict any use of the information to criminally investigate or prosecute any alcohol or drug abuse patient.[facility] the event this information is protected by the Federal Confidentiality of Alcohol and Drug Abuse Patient Records regulations: The Federal rules restrict any use of the information to criminally investigate or prosecute any alcohol or drug abuse patient.[facility] HospitalIn the event this information is protected by the Federal Confidentiality of Alcohol and Drug Abuse Patient Records regulations: The Federal rules restrict any use of the information to criminally investigate or prosecute any alcohol or drug abuse patient.[facility] ClinicIn the event this information is protected by the Federal Confidentiality of Alcohol and Drug Abuse Patient Records regulations: The Federal rules restrict any use of the information to criminally investigate or prosecute any alcohol or drug abuse patient.[facility] HospitalIn the event this information is protected by the Federal Confidentiality of Alcohol and Drug Abuse Patient Records regulations: The Federal rules restrict any use of the information to criminally investigate or prosecute any alcohol or drug abuse patient.[facility] HospitalIn the event this information is protected by the Federal Confidentiality of Alcohol and Drug Abuse Patient Records regulations: The Federal rules restrict any use of the information to criminally investigate or prosecute any alcohol or drug abuse patient.[facility] HospitalIn the event this information is protected by the Federal Confidentiality of Alcohol and Drug Abuse Patient Records regulations: The Federal rules restrict any use of the information to criminally investigate or prosecute any alcohol or drug abuse patient.[facility] HospitalIn the event this information is protected by the Federal Confidentiality of Alcohol and Drug Abuse Patient Records regulations: The Federal rules restrict any use of the information to criminally investigate or prosecute any alcohol or drug abuse patient.[facility] HospitalIn the event this information is protected by the Federal Confidentiality of Alcohol and Drug Abuse Patient Records regulations: The Federal rules restrict any use of the information to criminally investigate or prosecute any alcohol or drug abuse patient.[facility] HospitalIn the event this information is protected by the Federal Confidentiality of Alcohol and Drug Abuse Patient Records regulations: The Federal rules restrict any use of the information to criminally investigate or prosecute any alcohol or drug abuse patient.[facility] HospitalIn the event this information is protected by the Federal Confidentiality of Alcohol and Drug Abuse Patient Records regulations: The Federal rules restrict any use of the information to criminally investigate or prosecute any alcohol or drug abuse patient.[facility] HospitalIn the event this information is protected by the Federal Confidentiality of Alcohol and Drug Abuse Patient Records regulations: The Federal rules restrict any use of the information to criminally investigate or prosecute any alcohol or drug abuse patient.[facility] HospitalIn the event this information is protected by the Federal Confidentiality of Alcohol and Drug Abuse Patient Records regulations: The Federal rules restrict any use of the information to criminally investigate or prosecute any alcohol or drug abuse patient.[facility] HospitalIn the event this information is protected by the Federal Confidentiality of Alcohol and Drug Abuse Patient Records regulations: The Federal rules restrict any use of the information to criminally investigate or prosecute any alcohol or drug abuse patient.[facility] HospitalIn the event this information is protected by the Federal Confidentiality of Alcohol and Drug Abuse Patient Records regulations: The Federal rules restrict any use of the information to criminally investigate or prosecute any alcohol or drug abuse patient.[facility] HospitalIn the event this information is protected by the Federal Confidentiality of Alcohol and Drug Abuse Patient Records regulations: The Federal rules restrict any use of the information to criminally investigate or prosecute any alcohol or drug abuse patient.[facility] HospitalIn the event this information is protected by the Federal Confidentiality of Alcohol and Drug Abuse Patient Records regulations: The Federal rules restrict any use of the information to criminally investigate or prosecute any alcohol or drug abuse patient.[facility] HospitalIn the event this information is protected by the Federal Confidentiality of Alcohol and Drug Abuse Patient Records regulations: The Federal rules restrict any use of the information to criminally investigate or prosecute any alcohol or drug abuse patient.[facility] HospitalIn the event this information is protected by the Federal Confidentiality of Alcohol and Drug Abuse Patient Records regulations: The Federal rules restrict any use of the information to criminally investigate or prosecute any alcohol or drug abuse patient.[facility] HospitalIn the event this information is protected by the Federal Confidentiality of Alcohol and Drug Abuse Patient Records regulations: The Federal rules restrict any use of the information to criminally investigate or prosecute any alcohol or drug abuse patient.[facility] HospitalIn the event this information is protected by the Federal Confidentiality of Alcohol and Drug Abuse Patient Records regulations: The Federal rules restrict any use of the information to criminally investigate or prosecute any alcohol or drug abuse patient.[facility] HospitalIn the event this information is protected by the Federal Confidentiality of Alcohol and Drug Abuse Patient Records regulations: The Federal rules restrict any use of the information to criminally investigate or prosecute any alcohol or drug abuse patient.[facility] HospitalIn the event this information is protected by the Federal Confidentiality of Alcohol and Drug Abuse Patient Records regulations: The Federal rules restrict any use of the information to criminally investigate or prosecute any alcohol or drug abuse patient.[facility] HospitalIn the event this information is protected by the Federal Confidentiality of Alcohol and Drug Abuse Patient Records regulations: The Federal rules restrict any use of the information to criminally investigate or prosecute any alcohol or drug abuse patient.[facility] HospitalIn the event this information is protected by the Federal Confidentiality of Alcohol and Drug Abuse Patient Records regulations: The Federal rules restrict any use of the information to criminally investigate or prosecute any alcohol or drug abuse patient.[facility] HospitalIn the event this information is protected by the Federal Confidentiality of Alcohol and Drug Abuse Patient Records regulations: The Federal rules restrict any use of the information to criminally investigate or prosecute any alcohol or drug abuse patient.[facility] HospitalIn the event this information is protected by the Federal Confidentiality of Alcohol and Drug Abuse Patient Records regulations: The Federal rules restrict any use of the information to criminally investigate or prosecute any alcohol or drug abuse patient.[facility] HospitalIn the event this information is protected by the Federal Confidentiality of Alcohol and Drug Abuse Patient Records regulations: The Federal rules restrict any use of the information to criminally investigate or prosecute any alcohol or drug abuse patient.[facility] HospitalIn the event this information is protected by the Federal Confidentiality of Alcohol and Drug Abuse Patient Records regulations: The Federal rules restrict any use of the information to criminally investigate or prosecute any alcohol or drug abuse patient.[facility] HospitalIn the event this information is protected by the Federal Confidentiality of Alcohol and Drug Abuse Patient Records regulations: The Federal rules restrict any use of the information to criminally investigate or prosecute any alcohol or drug abuse patient.[facility] HospitalIn the event this information is protected by the Federal Confidentiality of Alcohol and Drug Abuse Patient Records regulations: The Federal rules restrict any use of the information to criminally investigate or prosecute any alcohol or drug abuse patient.[facility] HospitalIn the event this information is protected by the Federal Confidentiality of Alcohol and Drug Abuse Patient Records regulations: The Federal rules restrict any use of the information to criminally investigate or prosecute any alcohol or drug abuse patient.[facility] HospitalIn the event this information is protected by the Federal Confidentiality of Alcohol and Drug Abuse Patient Records regulations: The Federal rules restrict any use of the information to criminally investigate or prosecute any alcohol or drug abuse patient.[facility] Care Teams (unrecognized sec tion and content) Cloth Examiner Machine Relationship Specialty Start Date End Date Evelina Shafer MD [address] [place], [place] [id number] PCP - General Family Practice 06/26/19 Cloth Examiner Machine Relationship Specialty Start Date End Date Evelina Shafer MD [address] [place] [address] PCP - General Family Practice 06/26/19 Cloth Examiner Machine Relationship Specialty Start Date End Date Evelina Shafer MD [address] [place] [address] PCP - General Family Practice 06/26/19 Kiersten Rich, FARZANA [address] [place] [address] Supervisor Filtration 09/25/21 Cloth Examiner Machine Relationship Specialty Start Date End Date Evelina Shafer MD [address] [place] [address] PCP - General Family Practice 06/26/19 Kiersten Rich, FARZANA [address] [place] [address] Supervisor Filtration 09/25/21 Cloth Examiner Machine Relationship Specialty Start Date End Date Evelina Shafer MD [address] [place] [address] PCP - General Family Practice 06/26/19 Kiersten Rich, FARZANA [address] [place] [address] Supervisor Filtration 09/25/21 Cloth Examiner Machine Relationship Specialty Start Date End Date Evelina Shafer MD [address] [place] [address] PCP - General Family Practice 06/26/19 Angelina Mims RN [address] [place] [address] Supervisor Filtration 11/28/21 Cloth Examiner Machine Relationship Specialty Start Date End Date Evelina Shafer MD [address] [place] [address] PCP - General Family Practice 06/26/19 Angelina Mims, FARZANA [address] [place] [address] Supervisor Filtration 11/28/21 Cloth Examiner Machine Relationship Specialty Start Date End Date Evelina Shafer MD [address] [facility] [place] [address] PCP - General Family Practice 06/26/19 Angelina Mims RN [address] [facility] [place] [address] Supervisor Filtration 11/28/21 Cloth Examiner Machine Relationship Specialty Start Date End Date Evelina Shafer MD [address] [facility] [place] [address] PCP - General Family Practice 06/26/19 Angelina Mims RN [address] [facility] [place] [address] Supervisor Filtration 11/28/21 Cloth Examiner Machine Relationship Specialty Start Date End Date Evelina Shafer MD [address] [facility] [place] [address] PCP - General Family Practice 06/26/19 Angelina Mims RN [address] [place] [address] Supervisor Filtration 11/28/21 Cloth Examiner Machine Relationship Specialty Start Date End Date Evelina Shafer MD [address] [facility] [place] [address] PCP - General Family Practice 06/26/19 Kiersten Rich, FARZANA [address] [place] [address] Supervisor Filtration 09/25/21 Angelina Mims RN [address] [facility] [place] [address] Supervisor Filtration 11/28/21 Cloth Examiner Machine Relationship Specialty Start Date End Date Evelina Shafer MD [address] [facility] [place] [address] PCP - General Family Practice 06/26/19 Angelina Mims RN [address] [place] [address] Supervisor Filtration 11/28/21 Cloth Examiner Machine Relationship Specialty Start Date End Date Evelina Shafer MD [address] [facility] [place] [address] PCP - General Family Practice 06/26/19 Angelina Mims RN [address] [place] [address] Supervisor Filtration 11/28/21 Cloth Examiner Machine Relationship Specialty Start Date End Date Evelina Shafer MD [address] [facility] [place] [address] PCP - General Family Practice 06/26/19 Angelina Mims RN [address] [place] [address] Supervisor Filtration 11/28/21 Cloth Examiner Machine Relationship Specialty Start Date End Date Evelina Shafer MD [address] [facility] [place] [address] PCP - General Family Medicine 06/26/19 Angelina Mims RN [address] [place] [address] Supervisor Filtration 11/28/21 Cloth Examiner Machine Relationship Specialty Start Date End Date Evelina Shafer MD [address] [facility] [place] [address] PCP - General Family Medicine 06/26/19 Angelina Mims RN [address] [place] [address] Supervisor Filtration 11/28/21 Cloth Examiner Machine Relationship Specialty Start Date End Date Evelina Shafer MD [address] [facility] [place] [address] PCP - General Family Medicine 06/26/19 Angelina Mims RN [address] [place] [address] Supervisor Filtration 11/28/21 Cloth Examiner Machine Relationship Specialty Start Date End Date Evelina Shafer MD [address] [facility] [place] [address] PCP - General Family Medicine 06/26/19 Angelina Mims RN [address] [place] [address] Supervisor Filtration 11/28/21 Cloth Examiner Machine Relationship Specialty Start Date End Date Evelina Shafer MD [address] [facility] [place] [address] PCP - General Family Medicine 06/26/19 Angelina Mims RN [address] [place] [address] Supervisor Filtration 11/28/21 Cloth Examiner Machine Relationship Specialty Start Date End Date Evelina Shafer MD [address] [facility] [place] [address] PCP - General Family Medicine 06/26/19 Angelina Mims RN [address] [place] [address] Supervisor Filtration 11/28/21 Cloth Examiner Machine Relationship Specialty Start Date End Date Evelina Shafer MD [address] [facility] [place] [address] PCP - General Family Medicine 06/26/19 Angelina Mims RN [address] [place] [address] Supervisor Filtration 11/28/21 Cloth Examiner Machine Relationship Specialty Start Date End Date Evelina Shafer MD [address] [facility] [place] [address] PCP - General Family Medicine 06/26/19 Petty Joe, FARZANA [facility] [address] [facility] [place] [address] Supervisor Filtration 11/28/21 Cloth Examiner Machine Relationship Specialty Start Date End Date Evelina Shafer MD [address] [place] [address] PCP - General Family Medicine 06/26/19 Petty Joe, FARZANA [facility] [address] [place] [address] Supervisor Filtration 11/28/21 Cloth Examiner Machine Relationship Specialty Start Date End Date Evelina Shafer MD [address] [place] [address] PCP - General Family Medicine 06/26/19 Petty Joe RN [facility] [address] [place] [address] Supervisor Filtration 11/28/21 Cloth Examiner Machine Relationship Specialty Start Date End Date Evelina Shafer MD [address] [place] [address] PCP - General Family Medicine 06/26/19 Petty Joe, FARZANA [facility] [address] [place] [address] Supervisor Filtration 11/28/21 Cloth Examiner Machine Relationship Specialty Start Date End Date Evelina Shafer MD [address] [place] [address] PCP - General Family Medicine 06/26/19 Petty Joe RN [facility] [address] [place] [address] Supervisor Filtration 11/28/21 Cloth Examiner Machine Relationship Specialty Start Date End Date Evelina Shafer MD [address] [place] [address] PCP - General Family Medicine 06/26/19 Petty Joe RN [facility] [address] [place] [address] Supervisor Filtration 11/28/21 Cloth Examiner Machine Relationship Specialty Start Date End Date Evelina Shafer MD [address] [place] [address] PCP - General Family Medicine 06/26/19 Petty Joe RN [facility] [address] [place] [id number] Supervisor Filtration 04/28/22 Cloth Examiner Machine Relationship Specialty Start Date End Date Evelina Shafer MD [address] [place] [address] PCP - General Family Medicine 06/26/19 Petty Joe RN [facility] [address] [place] [address] Supervisor Filtration 04/28/22 Cloth Examiner Machine Relationship Specialty Start Date End Date Evelina Shafer MD [address] [place] [address] PCP - General Family Medicine 06/26/19 Petty Joe RN [facility] [address] [place] [address] Supervisor Filtration 04/28/22 Cloth Examiner Machine Relationship Specialty Start Date End Date Evelina Shafer MD [address] [place] [address] PCP - General Family Medicine 06/26/19 Petty Joe RN [facility] [address] [place] [address] Supervisor Filtration 04/28/22 Cloth Examiner Machine Relationship Specialty Start Date End Date Evelina Shafer MD [address] [place] [address] PCP - General Family Medicine 06/26/19 Petty Joe RN [facility] [address] [place] [id number] Supervisor Filtration 04/28/22 Cloth Examiner Machine Relationship Specialty Start Date End Date Evelina Shafer MD [address] [place] [address] PCP - General Family Medicine 06/26/19 Petty Joe RN [facility] [address] [place] [id number] Supervisor Filtration 04/28/22 Cloth Examiner Machine Relationship Specialty Start Date End Date Evelina Shafer MD [address] [place] [address] PCP - General Family Medicine 06/26/19 Petty Joe, FARZANA [facility] [address] [place] [address] Supervisor Filtration 04/28/22 Cloth Examiner Machine Relationship Specialty Start Date End Date Evelina Shafer MD [address] [place] [address] PCP - General Family Medicine 06/26/19 Petty Joe, FARZANA [facility] [address] [place] [address] Supervisor Filtration 04/28/22 Cloth Examiner Machine Relationship Specialty Start Date End Date Evelina Shafer MD [address] [place] [address] PCP - General Family Medicine 06/26/19 Petty Joe, FARZANA [facility] [address] [place] [address] Supervisor Filtration 04/28/22 Cloth Examiner Machine Relationship Specialty Start Date End Date Evelina Shafer MD [address] [place] [address] PCP - General Family Medicine 06/26/19 Petty Joe, FARZANA [facility] [address] [place] [address] Supervisor Filtration 04/28/22 Cloth Examiner Machine Relationship Specialty Start Date End Date Evelina Shafer MD [address] [place] [address] PCP - General Family Medicine 06/26/19 Petty Joe RN [facility] [address] [place] [address] Supervisor Filtration 04/28/22 Cloth Examiner Machine Relationship Specialty Start Date End Date Evelina Shafer MD [address] [place] [address] PCP - General Family Medicine 06/26/19 Petty Joe, RN [facility] [address] [place] [address] Supervisor Filtration 04/28/22 Cloth Examiner Machine Relationship Specialty Start Date End Date Lenin Hidalgo MD [address] [place], [place] [address] PCP - General Family Medicine 11/29/23 Cloth Examiner Machine Relationship Specialty Start Date End Date Evelina Shafer MD [address] [place], [place] [id number] PCP - General Family Medicine 06/26/19 11/02/23 Cloth Examiner Machine Relationship Specialty Start Date End Date Evelina Shafer MD [address] [place], [place] [id number] PCP - General Family Medicine 06/26/19 11/02/23 Reason for Visit (unrecogniz ed section and content) Reason Onset Date Comments community monitoring outreach 09/24/2021 en rollment Reason Comments Medication Follow-up Increased zoloft 3 [...] PELVIS W/O CONTRST 1+ BODY REGNS Urol [facility] [address] [place] [address] [place] [id number] Referral ID Status Reason Start Date Expiration Date V isits Requested Visits Authorized [id number] Closed Auto-Generate d Referral 05/18/2022 06/17/2023 1 1 Reason Onset Date Comments cdm outreach 05/03/2023 Telephonic cdm Reason Comments Radiology XR FOR RECORDS PERTAINING TO PATIENTS WHO ARE [...] BE BASED ON THE PRIMARY CLINICAL RECORDS. [id number]. provides no warranty or guarantee of the accuracy or completeness of information in this document.
[2024-04-21 10:55] LABS: Anion Gap 6 (5-15); BUN 22 mg/dL (7-18); BUN/Creat Ratio 17.5 RATIO (10-20); Calcium,Total 9.4 mg/dL (8.5-10.1); Chloride 102 mmol/L (98-107); Creatinine, Serum 1.26 mg/dL (0.70-1.30); EST Glomerular Filtration Rate 60 mL/min (>60); Est Glom Filt Rate - Afr Amer 72 mL/min (>60); Glucose 149 mg/dL (74-106); Potassium 4.8 mmol/L (3.5-5.1); Sodium Level 135 mmol/L (136-145)
== END | disposition home or self-care (01) ==
LOC: MFPLAB 08:47
PROVIDERS: PCP Family Medicine; Visit Provider Family Medicine
DX: R41.89 Other symptoms and signs involving cognitive functions and awareness (principal)
CPT/HCPCS: 36415; 80048

== ENCOUNTER → 2024-05-09 | Outpatient (CLI) | payer MEDICARE, OTHER, SELFPAY ==
[2024-05-09 17:43] LABS: Absolute Lymphocyte Count 1.23 X10^3/uL (0.83-4.51); Absolute Neutrophil Count 4.7 X10^3/uL (2.0-7.7); Basophil# 0.04 X10^3/uL; Basophil% 0.6 % (0-1); Eosinophils% 2.9 % (0-5); Hematocrit 35.4 % (40-54); Hemoglobin 11.8 g/dL (13.0-16.5); Lymphocyte # 1.23 X10^3/ul (0.83-4.51); Lymphocyte % 18.1 % (19-41); Mean Corp Hgb Conc 33.3 g/dL (32-36); Mean Corpuscular Hgb 31.6 pg (27.0-32.0); Mean Corpuscular Volume 94.9 fL (80-94); Mean Platelet Vol. 8.8 fl (6.2-12.0); Monocyte# 0.56 X10^3/uL; Monocyte% 8.3 % (0-10); NRBC Flagged by Analyzer 0 % (0-5); Neutrophil # 4.73 X10^3/uL (2.7-7.7); Neutrophil % 69.8 % (47-70); Platelet Count 311 K/mm3 (150-450); RBC Distribution Width CV 12.5 % (11.6-14.6); RBC Distribution Width SD 43.3 fl (35.1-43.9); Red Blood Count 3.73 M/mm3 (4.6-6.2); White Blood Count 6.8 K/mm3 (4.4-11.0)
[2024-05-09 18:11] LABS: ALB/GLOB Ratio 1.1 RATIO (0.9-2.4); AST(SGOT) 13 U/L (15-37); Alanine Aminotransfer ALT/SGPT 25 U/L (16-61); Albumin, Serum 3.9 g/dL (3.2-5.0); Alkaline Phosphatase 53 U/L (45-117); Anion Gap 7 (5-15); BUN 31 mg/dL (7-18); BUN/Creat Ratio 22.8 RATIO (10-20); Calcium,Total 9.5 mg/dL (8.5-10.1); Chloride 96 mmol/L (98-107); Creatinine, Serum 1.36 mg/dL (0.70-1.30); EST Glomerular Filtration Rate 55 mL/min (>60); Est Glom Filt Rate - Afr Amer 66 mL/min (>60); Globulin 3.7 g/dL (2.2-4.2); Glucose 126 mg/dL (74-106); Magnesium 1.7 mg/dL (1.6-2.6); Potassium 5.1 mmol/L (3.5-5.1); Protein, Total 7.6 g/dL (6.4-8.2); Sodium Level 129 mmol/L (136-145); Thyroid Stim Hormone (TSH) 0.453 uIU/mL (0.358-3.740)
[2024-05-09 20:15] LABS: Osmolality, Serum 292 mOsm/KG (280-301)
== END | disposition home or self-care (01) ==
LOC: MFPLAB 15:03
PROVIDERS: PCP Family Medicine; Visit Provider Family Medicine
DX: I95.9 Hypotension, unspecified (principal); I47.19 Other supraventricular tachycardia
CPT/HCPCS: 36415; 80053; 83735; 83930; 84443; 85025

== ENCOUNTER → 2024-05-16 | Outpatient (CLI) | payer MEDICARE, OTHER, SELFPAY ==
[2024-05-16 12:24] LABS: Anion Gap 4 (5-15); BUN 30 mg/dL (7-18); Calcium,Total 9.5 mg/dL (8.5-10.1); Chloride 97 mmol/L (98-107); EST Glomerular Filtration Rate 49 mL/min (>60); Est Glom Filt Rate - Afr Amer 59 mL/min (>60); Glucose 208 mg/dL (74-106); Potassium 4.9 mmol/L (3.5-5.1); Sodium Level 128 mmol/L (136-145)
== END | disposition home or self-care (01) ==
LOC: MFPLAB 09:27
PROVIDERS: PCP Family Medicine; Visit Provider Family Medicine
DX: E11.59 Type 2 diabetes mellitus with other circulatory complications (principal)
CPT/HCPCS: 36415; 80048

== ENCOUNTER → 2024-05-22 | Outpatient (CLI) | payer MEDICARE, OTHER, SELFPAY ==
[2024-05-22 12:59] LABS: Anion Gap 6 (5-15); BUN 32 mg/dL (7-18); BUN/Creat Ratio 21.8 RATIO (10-20); Calcium,Total 9.2 mg/dL (8.5-10.1); Chloride 101 mmol/L (98-107); Creatinine, Serum 1.47 mg/dL (0.70-1.30); EST Glomerular Filtration Rate 50 mL/min (>60); Est Glom Filt Rate - Afr Amer 60 mL/min (>60); Glucose 218 mg/dL (74-106); Sodium Level 133 mmol/L (136-145)
== END | disposition home or self-care (01) ==
LOC: MFPLAB 09:24
PROVIDERS: PCP Family Medicine; Visit Provider Family Medicine
DX: R41.89 Other symptoms and signs involving cognitive functions and awareness (principal)
CPT/HCPCS: 36415; 80048

== ENCOUNTER → 2024-05-24 | Outpatient (CLI) | payer MEDICARE, OTHER, SELFPAY ==
--- NOTE | 2024-05-24 10:51 | ECHOD_ITS ---
Reason For Study: AV DISORDER Procedure This was a 2D Doppler, Color Flow transthoracic echocardiogram. Exam performed in department. Left Ventricle Normal size and thickness. The left ventricular ejection fraction is 65 %. Normal diastology for age. Right Ventricle Normal right ventricle. Atria The left and right atria are normal. Mitral Valve Moderate to severe mitral valve annular calcification. Mild mitral valve regurgitation. Tricuspid Valve Mild tricuspid valve insufficiency. Normal pulmonary artery pressure. Aortic Valve Trisinus/trileaflet aortic valve. Mild calcification of aortic valve leaflets. Aortic valve sclerosis without stenosis. Mild (1+) aortic valve insufficiency. Pulmonic Valve The pulmonic valve is not well visualized. Trivial pulmonic valve insufficiency. Great Vessels Mildly dilated aortic root. Pericardium/Pleural No pericardial effusion. MMode/2D Measurements & Calculations LVIDd: 5.1 cm IVSd: 1.0 cm Ao root diam: 3.9 cm LVIDs: 2.8 cm LVPWd: 1.0 cm RVDd: 3.5 cm FS: 45.2 % LAV(MOD-bp): 66.3 ml LVAd ap4: 36.1 cm2 SV(MOD-sp4): 76.0 ml LAV(MOD-bp) Indexed: 31.8 ml/m2 LVLd ap4: 8.5 cm SI(MOD-sp4): 36.4 ml/m2 LAV(MOD-sp2): 66.1 ml EDV(MOD-sp4): 124.0 ml LAV(MOD-sp4): 66.0 ml EDV(sp4-el): 130.0 ml LVAs ap4: 19.6 cm2 LVLs ap4: 6.8 cm ESV(MOD-sp4): 48.0 ml ESV(sp4-el): 48.2 ml EF(MOD-sp4): 61.3 % EF(sp4-el): 62.9 % SV(sp4-el): 81.7 ml LA A4 area: 21.8 cm2 LA dimension(2D): 4.1 cm RA A4 area: 13.6 cm2 Time Measurements MV dec time: 0.21 sec Doppler Measurements & Calculations MV E max janes: 56.7 cm/sec Lat Peak E' Janes: 9.1 cm/sec Med Peak E' Janes: 6.9 cm/sec MV A max janes: 70.5 cm/sec E/E' lat: 6.2 E/E' med: 8.3 MV E/A: 0.80 MV V2 max: 100.7 cm/sec MV P1/2t max janes: 62.5 cm/sec Ao V2 max: 175.6 cm/sec MV max P.1 mmHg MV P1/2t: 73.4 msec Ao max P.3 mmHg MV V2 mean: 46.0 cm/sec Ao V2 mean: 123.0 cm/sec MV mean P.0 mmHg MV dec slope: 249.5 cm/sec2 Ao mean P.9 mmHg MV V2 VTI: 19.6 cm MVA(P1/2t): 3.0 cm2 Ao V2 VTI: 35.6 cm AV (velocity ratio): 0.56 AI max janes: 450.8 cm/sec LV V1 max: 101.3 cm/sec PA V2 max: 114.0 cm/sec AI max P.1 mmHg LV V1 max P.1 mmHg LV V1 mean P.5 mmHg AI dec slope: 229.0 cm/sec2 LV V1 mean: 75.5 cm/sec AI P1/2t: 576.7 msec LV V1 VTI: 19.8 cm TR max janes: 172.3 cm/sec TR max P.9 mmHg ECHO/Echo Complete Interpretation Summary The left ventricular ejection fraction is 65 %. Moderate to severe mitral valve annular calcification. Mild mitral valve regurg itation. Mild calcification of aortic valve leaflets. Aortic valve sclerosis without abel nosis. Mild aortic valve regurgitation. Mildly dilated aortic root. Ordering Physician: Lenin Hidalgo Referring Physician: Lenin Hidalgo Performed By: Allyssa Plascencia RDCS, RVT
== END | disposition home or self-care (01) ==
LOC: CVS 10:49
PROVIDERS: PCP Family Medicine; Referring Provider Family Medicine; Visit Provider Family Medicine
DX: I35.1 Nonrheumatic aortic (valve) insufficiency (principal)
CPT/HCPCS: 93306

== ENCOUNTER → 2024-06-05 | Outpatient (CLI) | payer MEDICARE, OTHER, SELFPAY ==
[2024-06-05 15:43] LABS: Anion Gap 4 (5-15); BUN 27 mg/dL (7-18); BUN/Creat Ratio 18.8 RATIO (10-20); Calcium,Total 9.8 mg/dL (8.5-10.1); Chloride 101 mmol/L (98-107); Cholesterol 213 mg/dL (200); Creatinine, Serum 1.44 mg/dL (0.70-1.30); EST Glomerular Filtration Rate 51 mL/min (>60); Est Glom Filt Rate - Afr Amer 62 mL/min (>60); Glucose 169 mg/dL (74-106); High Density Lipoprotein 59 mg/dL; Potassium 4.8 mmol/L (3.5-5.1); Sodium Level 133 mmol/L (136-145); Triglycerides 187 mg/dL; Very Low Density Lipoprotein 37 mg/dL (5-40)
== END | disposition home or self-care (01) ==
LOC: MFPLAB 12:29
PROVIDERS: PCP Family Medicine; Referring Provider Family Medicine; Visit Provider Family Medicine
DX: Z00.00 Encounter for general adult medical examination without abnormal findings (principal); Z13.6 Encounter for screening for cardiovascular disorders; E22.2 Syndrome of inappropriate secretion of antidiuretic hormone
CPT/HCPCS: 36415; 80048; 80061

== ENCOUNTER → 2024-06-12 | Outpatient (CLI) | payer MEDICARE, OTHER, SELFPAY ==
--- NOTE | 2024-06-12 10:00 | MRI_ITS ---
STUDY: MRI LEFT MIDFOOT WITH/WITHOUT CONTRAST REASON FOR EXAM: Male, 74 years old. LT FOOT,NEOPLASM IN BONE,SOFT TISSUE OR SKIN, AREA IS IN BETWEEN MARKERS TECHNIQUE: Standarized fat and water weighted pulse sequences were obtained in all 3 orthogonal plane pre and post administration of IV 18ml clariscan. COMPARISON: None. FINDINGS: Extruded peripherally enhancing 2.62 x 1.65 cm lobular and degenerated ganglion cyst is present over the dorsum of the navicular first cuneiform articulation. The navicular first cuneiform articulation is moderately narrowed and degenerated with subchondral cystic changes and reactive edema on both sides of the joint space. Internal synovitis is seen within the ganglion cyst. No demonstrated mass or evidence of a synovial sarcoma. No demonstrated cortical erosion. Mild to moderate narrowing of the second and third TMT articulation is also demonstrated with reactive edema and mild cystic changes and cortical spurring on both sides of the articulations. No demonstrated fracture. No evidence of osteomyelitis is present. A small joint effusion is seen in the first MTP. The visualized phalanges are unremarkable. Normal talonavicular articulation. Normal calcaneocuboid articulation. Normal intercuneiform articulations. Normal first tarsometatarsal articulation. Normal Lisfranc ligament. Normal cuboid fourth and cuboid fifth tarsometatarsal articulation. Normal remaining metatarsi. Normal tibialis anterior tendon. Normal extensor hallucis longus tendon. Normal extensor digitorum longus tendons. Normal peroneus longus tendon and distal insertion. Normal peroneus brevis tendon and distal insertion. Normal intrinsic muscles of the mid and forefoot region. Normal extensor digitorum brevis muscle. MRI/Lower Ext No Joint W/WO Cont IMPRESSION: 1. Extruded peripherally enhancing 2.62 x 1.65 cm lobular and degenerated ganglion cyst is present over the dorsum of the navicular first cuneiform articulation. The navicular first cuneiform articulation is moderately narrowed and degenerated with subchondral cystic changes and reactive edema on both sides of the joint space. Internal synovitis is seen within the ganglion cyst. No demonstrated mass or evidence of a synovial sarcoma. No demonstrated cortical erosion. 2. Mild to moderate narrowing of the second and third TMT articulation is also demonstrated with reactive edema and mild cystic changes and cortical spurring on both sides of the articulations. 3. No demonstrated fracture. 4. No evidence of osteomyelitis is present. A small joint effusion is seen in the first MTP. Electronically Signed: Bolivar Vogt MD at 13:13 EST ,
== END | disposition home or self-care (01) ==
LOC: MRI 09:54
PROVIDERS: PCP Family Medicine; Referring Provider Podiatrist; Visit Provider Podiatrist
DX: D49.2 Neoplasm of unspecified behavior of bone, soft tissue, and skin (principal)
CPT/HCPCS: 73720; A9575

== ENCOUNTER → 2024-06-16 | Outpatient (CLI) | payer MEDICARE, OTHER, SELFPAY ==
[2024-06-16 12:33] LABS: PSA,Total - Annual Screen 1.19 ng/mL (0.00-4.00)
[2024-06-19 16:08] LABS: PROEL- A/G Ratio 1.1 (0.7-1.7); PROEL- Albumin 3.7 g/dL (2.9-4.4); PROEL- Alpha-1 Globulin 0.2 g/dL (0.0-0.4); PROEL- Alpha-2 Globulin 0.9 g/dL (0.4-1.0); PROEL- Beta Globulin 1.2 g/dL (0.7-1.3); PROEL- Gamma Globulin 1.1 g/dL (0.4-1.8); PROEL- Globulin, Total 3.4 g/dL (2.2-3.9); PROEL- TOTAL PROTEIN 7.1 g/dL (6.0-8.5); PROEL-M-Spike Not Observed g/dL (Not Observed)
== END | disposition home or self-care (01) ==
LOC: MFPLAB 11:05
PROVIDERS: PCP Family Medicine; Referring Provider Family Medicine; Visit Provider Family Medicine
DX: Z12.5 Encounter for screening for malignant neoplasm of prostate (principal); N18.2 Chronic kidney disease, stage 2 (mild)
CPT/HCPCS: 36415; 84153; 84165; G0103

== ENCOUNTER → 2024-07-17 | Outpatient (CLI) | payer MEDICARE, OTHER, SELFPAY ==
[2024-07-17 15:18] LABS: Absolute Lymphocyte Count 1.22 X10^3/uL (0.83-4.51); Absolute Neutrophil Count 4.5 X10^3/uL (2.0-7.7); Basophil# 0.06 X10^3/uL; Basophil% 0.9 % (0-1); Eosinophil# 0.24 X10^3/uL; Eosinophils% 3.6 % (0-5); Hemoglobin 11.9 g/dL (13.0-16.5); Lymphocyte # 1.22 X10^3/ul (0.83-4.51); Lymphocyte % 18.4 % (19-41); Mean Corp Hgb Conc 33.1 g/dL (32-36); Mean Corpuscular Hgb 31.2 pg (27.0-32.0); Mean Corpuscular Volume 94.5 fL (80-94); Mean Platelet Vol. 8.5 fl (6.2-12.0); Monocyte# 0.54 X10^3/uL; Monocyte% 8.2 % (0-10); NRBC Flagged by Analyzer 0 % (0-5); Neutrophil # 4.53 X10^3/uL (2.7-7.7); Neutrophil % 68.4 % (47-70); Platelet Count 304 K/mm3 (150-450); RBC Distribution Width CV 12.2 % (11.6-14.6); RBC Distribution Width SD 42.3 fl (35.1-43.9); Red Blood Count 3.81 M/mm3 (4.6-6.2); White Blood Count 6.6 K/mm3 (4.4-11.0)
[2024-07-17 15:40] LABS: AST(SGOT) 12 U/L (15-37); Alanine Aminotransfer ALT/SGPT 21 U/L (16-61); Alkaline Phosphatase 53 U/L (45-117); Anion Gap 9 (5-15); BUN 25 mg/dL (7-18); BUN/Creat Ratio 16.7 RATIO (10-20); Calcium,Total 9.8 mg/dL (8.5-10.1); Chloride 98 mmol/L (98-107); EST Glomerular Filtration Rate 49 mL/min (>60); Est Glom Filt Rate - Afr Amer 59 mL/min (>60); Globulin 3.9 g/dL (2.2-4.2); Glucose 130 mg/dL (74-106); Potassium 4.6 mmol/L (3.5-5.1); Protein, Total 7.9 g/dL (6.4-8.2); Sodium Level 132 mmol/L (136-145)
== END | disposition home or self-care (01) ==
LOC: MTLAB 12:33
PROVIDERS: PCP Family Medicine; Referring Provider Family Medicine; Visit Provider Family Medicine
DX: E22.2 Syndrome of inappropriate secretion of antidiuretic hormone (principal)
CPT/HCPCS: 36415; 80053; 85025

== ENCOUNTER → 2024-07-28 | Outpatient (CLI) | payer MEDICARE, OTHER, SELFPAY ==
--- NOTE | 2024-07-28 07:22 | CT_ITS ---
PROCEDURE: CTA CHEST W/WO CONTRAST REASON FOR EXAM: Pain TECHNIQUE: CTA imaging of the chest with intravenous contrast. 3D reconstructions. CONTRAST: COMPARISON: None. FINDINGS: Hardware: None. Lymph nodes: No mediastinal hilar or axillary lymphadenopathy. Heart: Normal heart size. No pericardial effusion. Scattered coronary artery calcifications Thoracic Aorta: No thoracic aortic aneurysm or dissection. Pulmonary Vessels: No evidence of acute pulmonary emboli through the major subsegmental branches. Most Proximal Level of Embolus (if embolus present): N/A Lungs and Airways: The lungs are normally expanded and clear. Pleura: No pleural effusion. No pneumothorax. Bones: Bone windows are unremarkable. 3.3 cm gallstone partially visualized. CT/CTA Chest W/WO Contrast IMPRESSION: No acute thromboembolic disease. Cholelithiasis. One or more dose reduction techniques were used (e.g., Automated exposure contr ol, adjustment of the mA and/or kV according to patient size, use of iterative reconstruction technique). Reading Location: [id number]
== END | disposition home or self-care (01) ==
LOC: CT 07:20
PROVIDERS: PCP Family Medicine; Referring Provider Internal Medicine Cardiovascular Disease; Visit Provider Internal Medicine Cardiovascular Disease
DX: R06.02 Shortness of breath (principal)
CPT/HCPCS: 71275; Q9967

== ENCOUNTER → 2024-09-19 | Outpatient (CLI) | payer MEDICARE, OTHER, SELFPAY ==
[2024-09-19 16:08] LABS: Absolute Lymphocyte Count 1.13 X10^3/uL (0.83-4.51); Absolute Neutrophil Count 5.4 X10^3/uL (2.0-7.7); Basophil# 0.04 X10^3/uL; Basophil% 0.5 % (0-1); Eosinophil# 0.13 X10^3/uL; Eosinophils% 1.8 % (0-5); Hematocrit 40.8 % (40-54); Hemoglobin 13.7 g/dL (13.0-16.5); Lymphocyte # 1.13 X10^3/ul (0.83-4.51); Lymphocyte % 15.4 % (19-41); Mean Corp Hgb Conc 33.6 g/dL (32-36); Mean Corpuscular Hgb 32.3 pg (27.0-32.0); Mean Corpuscular Volume 96.2 fL (80-94); Mean Platelet Vol. 8.5 fl (6.2-12.0); Monocyte# 0.58 X10^3/uL; Monocyte% 7.9 % (0-10); NRBC Flagged by Analyzer 0 % (0-5); Neutrophil # 5.43 X10^3/uL (2.7-7.7); Platelet Count 343 K/mm3 (150-450); RBC Distribution Width CV 12.4 % (11.6-14.6); RBC Distribution Width SD 43.8 fl (35.1-43.9); Red Blood Count 4.24 M/mm3 (4.6-6.2); White Blood Count 7.3 K/mm3 (4.4-11.0)
[2024-09-19 17:23] LABS: ALB/GLOB Ratio 1.4 RATIO (0.9-2.4); AST(SGOT) 20 U/L (<=37); Alanine Aminotransfer ALT/SGPT 19 U/L (<=46); Albumin, Serum 4.4 g/dL (3.4-4.8); Alkaline Phosphatase 56 U/L (40-129); Anion Gap 11 (5-15); BUN 19 mg/dL (4-19); BUN/Creat Ratio 15.7 RATIO (10-20); Carbon Dioxide 24.3 mmol/L (21.0-32.0); Chloride 95 mmol/L (98-108); Creatinine, Serum 1.22 mg/dL (0.70-1.20); EST Glomerular Filtration Rate 63 (>60); Globulin 3.2 g/dL (2.2-4.2); Glucose 127 mg/dL (70-99); Potassium 4.7 mmol/L (3.3-5.1); Protein, Total 7.6 g/dL (5.9-8.4); Sodium Level 131 mmol/L (133-145); Total Bilirubin 0.46 mg/dL (0.00-1.30)
== END | disposition home or self-care (01) ==
LOC: MFPLAB 10:27
PROVIDERS: PCP Family Medicine; Visit Provider Family Medicine
DX: R19.7 Diarrhea, unspecified (principal)
CPT/HCPCS: 36415; 80053; 85025; 87493

== ENCOUNTER → 2024-09-25 | Outpatient (CLI) | payer MEDICARE, OTHER, SELFPAY ==
[2024-09-25 12:36] LABS: ALB/GLOB Ratio 1.4 RATIO (0.9-2.4); AST(SGOT) 18 U/L (<=37); Alanine Aminotransfer ALT/SGPT 17 U/L (<=46); Albumin, Serum 4.5 g/dL (3.4-4.8); Alkaline Phosphatase 57 U/L (40-129); Anion Gap 13 (5-15); BUN 21 mg/dL (4-19); BUN/Creat Ratio 14.2 RATIO (10-20); Chloride 93 mmol/L (98-108); Creatinine, Serum 1.49 mg/dL (0.70-1.20); EST Glomerular Filtration Rate 49 (>60); Globulin 3.3 g/dL (2.2-4.2); Glucose 110 mg/dL (70-99); Lipase 23 U/L (13-75); Potassium 5.1 mmol/L (3.3-5.1); Protein, Total 7.7 g/dL (5.9-8.4); Sodium Level 130 mmol/L (133-145); Total Bilirubin 0.39 mg/dL (0.00-1.30)
[2024-09-27 15:08] LABS: Pancreatic Elastase, Fecal 49 (>200)
== END | disposition home or self-care (01) ==
LOC: LAB 09:57 → MTLAB 09:59 → LABSPEC 12:01
PROVIDERS: PCP Family Medicine; Referring Provider Family Medicine; Visit Provider Family Medicine
DX: R19.7 Diarrhea, unspecified (principal)
CPT/HCPCS: 36415; 80053; 82653; 83690; 83735

== ENCOUNTER → 2024-10-02 | Outpatient (CLI) | payer MEDICARE, OTHER, SELFPAY ==
[2024-10-02 19:39] LABS: ALB/GLOB Ratio 1.4 RATIO (0.9-2.4); AST(SGOT) 18 U/L (<=37); Alanine Aminotransfer ALT/SGPT 17 U/L (<=46); Albumin, Serum 4.1 g/dL (3.4-4.8); Alkaline Phosphatase 46 U/L (40-129); Anion Gap 14 (5-15); BUN 22 mg/dL (4-19); BUN/Creat Ratio 15.9 RATIO (10-20); Calcium,Total 9.4 mg/dL (7.6-11.0); Carbon Dioxide 22.8 mmol/L (21.0-32.0); Chloride 98 mmol/L (98-108); Creatinine, Serum 1.38 mg/dL (0.70-1.20); EST Glomerular Filtration Rate 54 (>60); Globulin 2.9 g/dL (2.2-4.2); Glucose 185 mg/dL (70-99); Lipase 18 U/L (13-75); Magnesium 1.6 mg/dL (1.5-2.2); Sodium Level 134 mmol/L (133-145); Total Bilirubin 0.24 mg/dL (0.00-1.30)
[2024-10-03 22:35] LABS: Vitamin D,25 Hydroxy 54.1 ng/mL (30-100)
[2024-10-04 06:08] LABS: Rubeola IgG Ab > 300.0 AU/mL (Immune >16.4)
== END | disposition home or self-care (01) ==
LOC: MFPLAB 14:57
PROVIDERS: PCP Family Medicine; Referring Provider Internal Medicine Nephrology; Visit Provider Internal Medicine Nephrology
DX: E87.1 Hypo-osmolality and hyponatremia (principal); E55.9 Vitamin D deficiency, unspecified
CPT/HCPCS: 36415; 80053; 82306; 83690; 83735; 86765

== ENCOUNTER → 2024-10-05 | Outpatient (CLI) | payer MEDICARE, OTHER, SELFPAY ==
--- NOTE | 2024-10-05 07:41 | US_ITS ---
PROCEDURE: Abdominal ultrasound. 10/05/2024 REASON FOR EXAM: EXOCRINE PANCREATIC INSUFFICIENCY TECHNIQUE: Sonographic evaluation of the upper abdomen was performed. COMPARISON: None available FINDINGS: Included portions of the pancreas show no specific abnormality. No abdominal ascites. Segmentally visualized portions of the liver demonstrate coarse echotexture, without discrete parenchymal lesion. A solitary 2 cm echogenic gallstone is present. No significant gallbladder wall thickening or pericholecystic fluid. Negative sonographic Elliott's sign. The common duct is measured at 5 mm. The right kidney is 10.7 cm in length, unremarkable. US/Abdomen Limited IMPRESSION: Cholelithiasis without evidence of acute cholecystitis. Negative sonographic M urphy's sign reported. Coarse liver echotexture may be due to fatty metamorphosis. The remainder of the examination is unremarkable. Reading [facility]
--- NOTE | 2024-10-05 08:21 | US_ITS ---
PROCEDURE: THYROID 10/05/2024 REASON FOR EXAM: THYROID ULTRASOUND TECHNIQUE: Thyroid ultrasound COMPARISON: CTA chest 07/28/2024. FINDINGS: Right thyroid lobe measures 5.7 x 1.6 x 2.1 cm. Left thyroid lobe measures 4.3 x 1.7 x 1.4 cm. Isthmus thickness is0.3 cm. Thyroid Size: Normal Background Echotexture: Homogeneous Thyroid Nodules: No suspicious thyroid nodules visualized. US/Thyroid IMPRESSION: Normal thyroid ultrasound. No suspicious thyroid nodules meeting ACR TI-RADS c riteria for follow-up. Reading Location: [id number]
[2024-10-05 12:22] LABS: Microalbumin,Random Urine < 12.0 mg/L (NO RANGE EST.); Microalbumin:Creatinine Ratio UNABLE TO CALCULATE mg/g CRE
== END | disposition home or self-care (01) ==
PROVIDERS: PCP Family Medicine; Referring Provider Family Medicine; Visit Provider Family Medicine
DX: K86.81 Exocrine pancreatic insufficiency (principal); N18.31 Chronic kidney disease, stage 3a
CPT/HCPCS: 76536; 76705; 82043; 82570

== ENCOUNTER → 2025-01-24 | Outpatient (CLI) | payer MEDICARE, OTHER, SELFPAY ==
--- OUTSIDE RECORDS SUMMARY | 2025-01-24 06:33 | XMS RPT_ITS | CCD ---
Author Organization [facility] Care Team Providers Care Material Mixer Name Role Phone Evelina Shafer MD Primary Care Provider Hilario YANES, Kiersten Unavailable Prasanna RN, Angelina Unavailable Evelina Shafer MD Primary Care Provider Prasanna YANES, Angelina Unavailable Dr. Georges Shafer Primary Care Provider [phone] Dr. Georges Shafer Referring Provider Titus QUALITY CONTROLLER, QUALITY CONTROLLER-C Asia Attending Provider Dr. Trenton Gerard Attending Provider Citlali Toribio Attending Provider Unavailable Dr. Trenton Gerard Referring Provider Dr. Trenton Gerard Other Provider Loretta QUALITY CONTROLLER, QUALITY CONTROLLER-C Arnie Nunez Attending Provider Evelina Shafer MD Primary Care Provider Prasanna YANES, Angelina Unavailable Panfilo YANES, Petty Unavailable Unavailable Evelina Shafer MD Primary Care Provider Panfilo RN, Petty Unavailable Unavailable Panfilo YANES, Petty Unavailable Unavailable EVELINA MONROE Admitting UnavailEVELINA Beltre Attending UnavailEVELINA Beltre Primary Care UnavailEVELINA Austin Consulting Unavailab le PROVIDER, UNKNOWN Consulting Unavailable Panfilo YANES, Petty Unavailable Unavailable Dr. Lenin Hidalgo Primary Care Provider Dr. Lenin Hidalgo Referring Provider Titus RIVER, QUALITY CONTROLLER-C Asia Attending Provider Dr. Lenin Hidalgo Primary Care Provider Dr. Lenin Hidalgo Referring Provider Titus QUALITY CONTROLLER, QUALITY CONTROLLER-C Asia Attending Provider Dr. Miguel Kirby Attending Provider Dr. Lenin Hidalgo Primary Care Provider 1([facility])[phone] Dr. Lenin Hidalgo Referring Provider 1([facility])[phone] Lenin Hidalgo MD Primary Care Provider Soni PEÑA, Evelina Mccullough Primary Care Provider Rocky PEÑA, Dr. Phelps Primary Care Provider 1([facility])[phone] Rocky PEÑA, Dr. Phelps Attending Provider Dr. Lenin Hidalgo MD Referring Provider 1([facility])[phone] Halle DPM, Dr. Akers Attending Provider 1([facility])[phone] Halle DPM, Dr. Akers Referring Provider 1([facility])[phone] Moustapha PEÑA, Dr. Chowdhury Attending Provider Moustapha PEÑA, Dr. Chowdhury Referring Provider 1([facility])[phone] Radha PEÑA, Dr. Moon Attending Provider Rocky PEÑA, Dr. Phelps Primary Care Provider 1([facility])[phone] Dr. Lenin Hidalgo MD Attending Provider 1([facility])[phone] Lenin Hidalgo MD Referring Provider 1([facility])[phone] Allyn Gallegos DO Attending Provider [phone] Allyn Gallegos DO Referring Provider [phone] Allyn Gallegos DO Other Provider [phone] Rocky PEÑA, Dr. Phelps Primary Care Provider Dr. Lenin Hidalgo MD Attending Provider [phone] Lenin Hidalgo MD Referring Provider [phone] Miguel Kirby MD Attending Provider 1([facility])[phone] Shruthi GIRARD, Chris Attending Provider 1([facility])[phone] Titus QUALITY CONTROLLER-CAsia Attending Provider Hidalgo, Lenin Attending Unavailable Hidalgo, Lenin Primary Care Unavailable Hidalgo, Lenin Referring Unavailable Hidalgo, Lenin Primary Care Unavailable Moustapha, Fillmore Attending Unavailable Moustapha, Fillmore Referring Unavailable Hidalgo, Lenin Primary Care Unavailable Hidalgo, Lenin Attending Unavailable Hidalgo, Lenin Attending Unavailable Hidalgo, Lenin Primary Care Unavailable Hidalgo, Lenin Primary Care Unavailable Horn, Delphine Referring Unavailable Horn, Delphine Attending Unavailable Hidalgo, Lenin Primary Care Unavailable Hidalgo, Lenin Attending Unavailable Hidalgo, Lenin Referring Unavailable El, Allyn Referring Unavailable El, Allyn Attending Unavailable Hidalgo, Lenin Primary Care Unavailable Hidalgo, Lenin Primary Care Unavailable Red Garcia Attending Unavailable Miguel Kirby Referring Unavailable Miguel Kirby Attending Unavailable Hidalgo, Lenin Primary Care Unavailable El, Allyn Attending Unavailable Hidalgo, Lenin Primary Care Unavailable Asia Qureshi NP Referring Unavailable Titus QUALITY CONTROLLER, Asia Attending Unavailable Hidalgo, Lenin Primary Care Unavailable Hidalgo, Lenin Primary Care Unavailable Hidalgo, Lenin Attending Unavailable Hidalgo, Lenin Referring Unavailable Hidalgo, Lenin Attending Unavailable Hidalgo, Lenin Primary Care Unavailable Hidalgo, Lenin Attending Unavailable Hidalgo, Lenin Referring Unavailable Hidalgo, Lenin Primary Care Unavailable Hidalgo, Lenin Attending Unavailable Hidalgo, Lenin Primary Care Unavailable El, Allyn Consulting Unavailable Hidalgo, Lenin Referring Unavailable Hidalgo, Lenin Attending Unavailable Hidalgo, Lenin Primary Care Unavailable Eugenia Pastrana Attending Unavailable Hidalgo, Lenin Primary Care Unavailable Hidalgo, Lenin Primary Care Unavailable Moustapha, Trenton Attending Unavailable Hidalgo, Lenin Primary Care Unavailable Hidalgo, Lenin Attending Unavailable Hidalgo, Lenin Referring Unavailable Hidalgo, Lenin Primary Care Unavailable Hidalgo, Lenin Attending Unavailable Hidalgo, Lenin Referring Unavailable Miguel Kirby Attending Unavailable Hidalgo, Lenin Referring Unavailable Hidalgo, Lenin Primary Care Unavailable Hidalgo, Lenin Primary Care Unavailable Moustapha, Fillmore Attending Unavailable Hidalgo, Lenin Referring Unavailable Chris Hawkins Attending Unavailable Hidalgo, Lenin Referring Unavailable Hidalgo, Lenin Primary Care Unavailable Hidalgo, Lenin Referring Unavailable Titus RIVER, Asia Attending Unavailable Hidalgo, Lenin Primary Care Unavailable Hidalgo, Lenin Primary Care Unavailable Hidalgo, Lenin Attending Unavailable Allergies Allergy Classification Reported Allergen(s) Allergy Type Date of Onset Reaction(s) Facility (20 sources) atorvastatin Drug Allergy 12-28-19 20 Mental Status Change [facility] Work Phone: (20 sources) diphenhydrAMINE Drug Allergy 07-01-19 21 Other: See Comments [facility] Work Phone: Comment on above: paradoxical effect (9 sources) Penicillins Propensity to adverse reactions 11-19-19 06 Rash [facility] Work Phone: (20 sources) tamsulosin Drug Allergy 06-26-20 19 Other: See Comments [facility] Work Phone: (8 sources) Thiazides Propensity to adverse reactions to drug 03-02-20 21 Contraindicati on-Medical Surgical [facility] Work Phone: (20 sources) traZODone Drug Allergy 07-01-19 21 Mental Status Change [facility] Work Phone: Comment on above: increased anxiety (20 sources) Penicillins Propensity to adverse reactions 11-19-19 06 [facility] Work Phone: (20 sources) Thiazides Propensity to adverse reactions to drug 03-02-20 Contraindicati on-Medical Surgical [facility] Work Phone: (19 sources) Penicillins Allergy to substance 02-11-20 22 Rash [facility] (17 sources) Simvastatin Drug Allergy 03-31-20 22 messed with my head [facility] (20 sources) HMG-CoA reductase inhibitor Drug Intolerance 05-18-20 22 Mental Status Change [facility] (9 sources) ezetimibe Drug Allergy 09-11-19 23 Mental Status Change [facility] Work Phone: (8 sources) Thiazides Allergy to substance 11-05-19 24 Other [facility] Comment on above: hypoNA (8 sources) Sebyzbg-Opr-Eoy Reductase Inhibitor Allergy to substance 11-05-19 24 Other [facility] Comment on above: mental status change s (1 source) atorvastatin Drug Allergy 01-19-20 25 [facility] Rep[facility] (1 source) diphenhydrAMINE Drug Allergy 01-19-20 25 [facility] (1 source) Penicillins Drug allergy (disorder) 01-19-20 25 [facility] Rep[facility] (1 source) Simvastatin Drug Allergy 01-19-20 25 [facility] (1 source) Thiazides Drug allergy (disorder) 01-19-20 [facility] (1 source) traZODone Drug Allergy 01-19-20 [facility] Rep[facility] (1 source) Wgxdmur-Aqt-Lcx Reductase Inhibitor Drug allergy (disorder) 01-19-20 [facility] Rep[facility] Medications Current Medications Medication Drug Class(es) Dates Sig (Normalized) Sig (Original) amylase 985215 unt / lipase 37653 unt / protease [id number] unt delayed release oral capsule (2 sources) Start: 10-27-2024 End: 01-18-2025 Vgmaaq-Wycssako-Swc lase (Creon) 36,000-114,000- 180,000 unit capsule,delayed release(DR/EC) Active NMA PO THREE TIMES A DAY January 18, 2025 9:18am 4 caps every meal. 2 caps with each snack. aspirin 81 mg oral tablet (18 sources) Platelet Aggregation Inhibitor, Nonsteroidal Anti-inflammatory Drug Start: 03-16-2022 take 1 capsule by mouth once daily Aspirin 81 mg Capsule Active 81 mg PO DAILY March 16, 2022 12:00am azelastine hydrochloride 0.137 mg/actuat metered dose nasal spray (5 sources) Histamine-1 Receptor Antagonist Start: 07-07-2024 Azelastine 137 mcg (0.1 %) spray,non-aerosol Active INTRANASAL as needed for Allergies July 07, 2024 1:00am cholecalciferol 0.05 mg oral capsule (8 sources) Vitamin D Start: 11-05-2023 take 1 capsule by mouth once daily Cholecalciferol (Vitamin D3) 50 mcg (2,000 unit) capsule Active 50 ug PO DAILY November 05, 2023 12:00am DULoxetine 40 mg delayed release oral capsule (6 sources) Serotonin and Norepinephrine Reuptake Inhibitor Start: 01-18-2025 take 1 capsule by mouth once daily Duloxetine 40 mg capsule,delayed release(DR/EC) Active 40 mg PO daily January 18, 2025 12:00am Start: 07-07-2024 take 1 capsule by [facility] once daily Duloxetine 60 mg capsule,delayed release(DR/EC) Active 60 mg PO DAILY July 07, 2024 1:00am depression escitalopram 10 mg oral tablet (1 source) Serotonin Reuptake Inhibitor Start: 01-05-2022 End: 04-05-2022 take 1 tablet by mouth once daily escitalopram oxalate (LEXAPRO) 10 mg tablet Take 1 tablet by mouth once daily. 30 tablet 2 01/05/2022 04/05/2022 Active Comment on above: Take 1 tablet by anthony th once daily. eszopiclone 1 mg oral tablet (1 source) Start: 12-03-2022 End: 01-01-2023 take 1 tablet by mouth 2 hour(s) before bedtime eszopiclone (LUNESTA) 1 mg tab Indications: Insomnia due to medical condition , RLS (restless legs syndrome) Take (1) tablet by mouth two hours before bedtime FOR INSOMNIA 30 tablet 2 12/03/2022 01/01/2023 Active Comment on above: Take (1) tablet by m outh two hours before bedtime FOR INSOMNIA fexofenadine hydrochloride 180 mg oral tablet (1 source) Histamine-1 Receptor Antagonist Start: 01-18-2025 take 1 tablet by mouth once daily Fexofenadine (Yaima Allergy) 180 mg tablet Active 180 mg PO daily January 18, 2025 12:00am iv contrast (will be provided with radiology test) (2 sources) Start: 05-18-2022 End: 05-19-2022 iv contrast (will be provided with radiology [...] in the CT contrast administration guidelines link. l-methyl folate 5 mg (1 source) Start: 07-24-2025 take 5 mg by mouth once daily l-methyl folate 5 mg Active 1 {tbl} PO daily January 18, 2025 12:00am lisdexamfetamine dimesylate 60 mg oral capsule (5 sources) Central Nervous System Stimulant Start: 07-07-2024 take 1 capsule by mouth once daily Lisdexamfetamine (Vyvanse) 60 mg capsule Active 60 mg PO daily 0 July 07, 2024 1:00am Helps me focus lisinopril 2.5 mg oral tablet (20 sources) Angiotensin Converting Enzyme Inhibitor Start: 01-18-2025 take 1 tablet by mouth at bedtime Lisinopril 2.5 mg tablet Active 2.5 mg PO AT BEDTIME January 18, 2025 12:00am Start: 07-08-2023 End: 07-07-2024 take 1 tablet by mouth once daily Lisinopril 5 mg tablet Discontinued 5 mg PO DAILY July 08, 2023 2:38pm July 07, 2024 12:57pm Start: 04-16-2022 End: 10-14-2022 take 1 tablet by mouth once daily lisinopril (ZESTRIL) 10 mg tablet Take 1 tablet by mouth once daily. 90 tablet 1 10/14/2022 Active Start: 04-14-2022 End: 07-08-2023 take 2 tablets by mouth once daily Lisinopril 5 mg tablet Discontinued 10 mg PO DAILY April 14, 2022 2:10pm July 08, 2023 2:38pm Start: 04-14-2022 End: 07-08-2023 take 10 mg by mouth once daily Lisinopril Discontinued 10 MG PO DAILY April 14, 2022 2:10pm July 08, 2023 2:38pm Start: 04-14-2022 End: 04-14-2022 take 1 tablet by mouth once daily Lisinopril 5 mg tablet Discontinued 5 mg PO DAILY April 14, 2022 12:00am April 14, 2022 2:10pm Start: 12-04-2020 End: 07-07-2021 take 1 tablet by mouth once daily lisinopril (ZESTRIL, PRINIVIL) 5 mg tablet Take 1 tablet by mouth once daily. 30 tablet 5 12/04/2020 07/07/2021 Discontinued Start: 07-01-2020 End: 04-14-2022 take 1 tablet by mouth once daily Lisinopril 2.5 mg tablet Discontinued 2.5 mg PO DAILY November 26, 2020 12:00am April 14, 2022 1:54pm Start: 06-02-2018 End: 11-26-2020 take 2.5 mg by mouth once daily Lisinopril 5 mg tablet Discontinued 2.5 mg PO DAILY June 02, 2018 1:00am November 26, 2020 10:29am Start: 06-02-2018 End: 11-26-2020 take 2.5 mg by mouth once daily Lisinopril Discontinue d 2.5 MG PO DAILY June 02, 2018 1:00am November 26, 2020 10:29am Comment on above: Take 1 tablet by anthony th once daily. Magnesium (20 sources) Start: 07-07-2024 Magnesium 500 mg tablet Active 250 mg PO TWICE A DAY July 07, 2024 12:30pm supplement Start: 07-07-2024 Magnesium 500 mg tablet Active 250 mg PO TWICE A DAY July 07, 2024 12:30pm Start: 01-25-2022 End: 07-07-2024 take 1 tablet by mouth once daily Magnesium 500 mg Tablet Discontinued 500 mg PO DAILY January 25, 2022 12:00am July 07, 2024 12:33pm supplement Start: 01-25-2022 End: 07-07-2024 take 1 tablet by mouth once daily Magnesium 500 mg Tablet Discontinued 500 mg PO DAILY January 25, 2022 12:00am July 07, 2024 12:33pm Start: 01-25-2022 take 500 mg by mouth once diomedes y Magnesium Active 500 MG PO DAILY January 24, 2022 11:00pm Start: 01-25-2022 take 500 mg by mouth once diomedes y Magnesium Active 500 MG PO DAILY January 25, 2022 12:00am take 2 tablets by mo ut once daily Magnesium 250 mg tab Indications: Elevated serum creatinine Take 500 mg by mouth once daily. 0 Active Comment on above: Take 500 mg by mouth once daily. Multivitamin preparation (15 sources) Start: 02-08-2021 take 1 tablet by mouth once daily Multivitamin Active 1 TABLET PO DAILY February 07, 2021 11:00pm Start: 02-08-2021 take 1 tablet by anthony th once daily Multivitamin Active 1 TABLET PO DAILY February 08, 2021 12:00am Multivitamin Tablet (5 sources) Start: 02-08-2021 Multivitamin Tablet Active 1 {tbl} PO DAILY February 08, 2021 12:00am pioglitazone 30 mg oral tablet (5 sources) Peroxisome Proliferator Receptor alpha Agonist, Peroxisome Proliferator Receptor gamma Agonist, Thiazolidinedione Start: 07-07-2024 take 1 tablet by mouth once daily Pioglitazone 30 mg tablet Active 30 mg PO DAILY July 07, 2024 1:00am Diabetic rOPINIRole 2 mg oral tablet (14 sources) Nonergot Dopamine Agonist Start: 01-18-2025 take 2 tablets by mouth at bedtime Ropinirole 2 mg tablet Active 4 mg PO AT BEDTIME January 18, 2025 12:00am Start: 01-18-2024 End: 01-18-2025 take 2 tablets by mouth at bedtime Ropinirole 0.5 mg tablet Discontinued 1 mg PO AT BEDTIME January 18, 2024 1:12pm January 18, 2025 9:17am administer 1-3 hours before bedtime Start: 11-05-2023 End: 01-18-2024 take 3 tablets by mouth at bedtime Ropinirole 0.5 mg tablet Discontinued 1.5 mg PO AT BEDTIME November 05, 2023 12:00am January 18, 2024 1:13pm administer 1-3 hours before bedtime Start: 11-05-2023 take 1.5 mg by mouth at bedtim e Ropinirole Active 1.5 MG PO AT BEDTIME November 05, 2023 12:00am administer 1-3 hours before bedtime Semaglutide (1 source) Start: 01-18-2025 Semaglutide (Ozempic) 0.25 mg or 0.5 mg (2 mg/3 mL) pen injector Active 0.5 mg SC EVERY WEEK January 18, 2025 12:00am 1000 ml sodium chloride 9 mg/ml injection (1 source) Start: 05-18-2022 End: 05-18-2022 inject 1 dose intravenously once 0.9 % sodium chloride (NACL 0.9%) infusion Indications: Gross hematuria Inject 75 mL/hr intravenously one time only for 1 dose. Administer at rate defined per CT contrast administration specifications. To be provided with radiology test. 1 Each 0 05/18/2022 05/18/2022 Active Comment on above: Inject 75 mL/hr intravenously one time o nly for 1 dose. Administer at rate defined per CT contrast administration specifications. To be provided with radiology test. Completed/Discontinued Medications Medication Drug Class(es) Dates Sig (Normalized) Sig (Original) acetaminophen 325 mg / oxyCODONE hydrochloride 5 mg oral tablet (20 sources) Opioid Agonist Start: 06-06-2019 End: 06-14-2019 Oxycodone-Acetamino phen 1 TABLET tablet Discontinued 1 {tbl} PO EVERY 6 HOURS NEEDED as needed for Pain Or Fever 5 0 June 06, 2019 June 10, 2019 1:00am June 14, 2019 1:12am Nasal congestion Start: 06-06-2019 End: 06-14-2019 take 1 tablet by mouth every six hours as needed Oxycodone-Acetaminophen Discontinued 1 TABLET PO EVERY 6 HOURS NEEDED 5 June 06, 2019 June 14, 2019 1:12am atorvastatin 40 mg oral tablet (18 sources) HMG-CoA Reductase Inhibitor Start: 03-16-2022 End: 03-17-2022 take 1 tablet by mouth at bedtime Atorvastatin 40 mg tablet Discontinued 40 mg PO AT BEDTIME 90 3 March 16, 2022 12:00am March 17, 2022 3:26pm cariprazine 1.5 mg oral capsule (8 sources) Atypical Antipsychotic Start: 11-05-2023 End: 01-18-2024 take 1 capsule by mouth once daily Cariprazine (Vraylar) 1.5 mg capsule Discontinued 1.5 mg PO DAILY November 05, 2023 12:00am January 18, 2024 1:12pm clonazePAM 0.5 mg oral tablet (8 sources) Benzodiazepine Start: 11-05-2023 End: 01-18-2024 Clonazepam (Klonopin) 0.5 mg tablet Discontinued 0.5 mg PO DAILY November 05, 2023 12:00am January 18, 2024 1:12pm x 4 days then 1mg dapagliflozin 10 mg oral tablet (5 sources) Sodium-Glucose Cotransporter 2 Inhibitor Start: 07-07-2024 End: 01-18-2025 take 1 tablet by mouth once daily Dapagliflozin Propanediol (Farxiga) 10 mg tablet Discontinued 10 mg PO DAILY July 07, 2024 1:00am January 18, 2025 9:19am Diabetic, CKD, Heart problems diazePAM 5 mg oral tablet (20 sources) Benzodiazepine Start: 06-02-2018 End: 07-08-2023 take 1-2 tablets by mouth once daily as needed Diazepam 5 mg tablet Discontinued 5 mg PO NEEDED as needed for claustrophobia November 26, 2020 10:31am July 08, 2023 2:48pm 5 mg PO 1-2 tabs by mouth daily; ezetimibe 10 mg oral tablet (20 sources) Dietary Cholesterol Absorption Inhibitor Start: 04-30-2022 End: 07-08-2023 take 1 tablet by mouth once daily Ezetimibe (Zetia) 10 mg tablet Discontinued 10 mg PO DAILY 25 12April 30, 2022 12:00am July 08, 2023 2:48pm Comment on above: Take 10 mg by mouth once daily. finasteride 5 mg oral tablet (1 source) 5-alpha Reductase Inhibitor Start: 08-19-2020 End: 10-29-2020 take 1 tablet by mouth once daily finasteride (PROSCAR) 5 mg tablet Indications: Benign prostatic hyperplasia with nocturia Take 1 tablet by mouth once daily. 30 tablet 5 08/19/2020 10/29/2020 Discontinued FLUoxetine 40 mg oral capsule (20 sources) Serotonin Reuptake Inhibitor Start: 07-08-2023 End: 11-05-2023 Fluoxetine 40 mg capsule Discontinued 45 mg PO DAILY July 08, 2023 2:48pm November 05, 2023 9:18am Start: 07-08-2023 End: 11-05-2023 take 45 mg by mouth once daily Fluoxetine Discontinued 45 MG PO DAILY July 08, 2023 2:48pm November 05, 2023 9:18am Start: 01-18-2023 take 1 tablet by anthony th once daily FLUoxetine 10 mg tablet Take [...] 90 capsule 1 04/20/2022 06/01/2022 Discontinued Start: 01-25-2022 End: 02-10-2022 Fluoxetine 40 mg capsule Discontinued 1 NMA PO DAILY January 25, 2022 12:00am February 10, 2022 11:25am Start: 01-25-2022 End: 07-08-2023 take 2 capsules by mouth once daily Fluoxetine 40 mg capsule Discontinued 80 mg PO DAILY February 10, 2022 11:25am July 08, 2023 2:50pm Start: 01-25-2022 End: 02-10-2022 take 1 capsule by mouth once daily Fluoxetine Discontinued 1 CAP PO DAILY January 25, 2022 12:00am February 10, 2022 11:25am Start: 01-25-2022 End: 07-08-2023 take 80 mg by mouth once daily Fluoxetine Discontinued 80 MG PO DAILY February 10, 2022 11:25am July 08, 2023 2:50pm Start: 01-12-2022 End: 08-30-2022 take 1 capsule by mouth once daily FLUoxetine (PROZAC) 40 mg capsule Indications: Anxiety with depression Take 1 capsule by mouth once daily. 90 capsule 0 03/03/2022 06/01/2022 Discontinued Start: 12-08-2021 take 1 capsule by [facility] once daily FLUoxetine (PROZAC) 20 mg capsule Take 1 capsule by mouth once daily. 90 capsule 0 12/08/2021 Active Comment on above: Take 1 capsule by [facility] daily. Take 2 capsules by [facility] once daily. Take one tablet diomedes y in addtion to 40 mg tablet to equal 60 mg daily Take 1 tablet by anthony once daily. fluticasone propionate 0.05 mg/actuat metered dose nasal spray (20 sources) Corticosteroid Start: 11-26-2020 End: 07-07-2024 Fluticasone Propionate 50 mcg/actuation spray,suspension Discontinued 1 NMA INTRANASAL AT BEDTIME November 26, 2020 12:00am July 07, 2024 12:32pm Start: 11-26-2020 Fluticasone Pr opionate Active 1 SPRAY INTRANASAL AT BEDTIME November 26, 2020 12:00am Start: 03-05-2020 End: 05-18-2022 take 2 spray(s) by mouth once daily fluticasone (FLONASE) 50 mcg/actuation nasal spray Use 2 Sprays in each nostril once daily. Rinse mouth after use. 1 Bottle 11 12/04/2020 05/18/2022 Discontinued Comment on above: Use 2 Sprays in each nostril once daily. Rinse mouth after use. gabapentin 300 mg oral capsule (20 sources) Anti-epileptic Agent Start: 07-08-2023 End: 11-05-2023 take 1 capsule by mouth twice daily Gabapentin 300 mg capsule Discontinued 300 mg PO TWICE A DAY July 08, 2023 2:49pm November 05, 2023 9:18am Start: 07-08-2023 End: 07-08-2023 take 1 capsule by mouth three times daily Gabapentin 300 mg capsule Discontinued 300 mg PO THREE TIMES A DAY July 08, 2023 1:00am July 08, 2023 2:50pm Start: 04-06-2023 End: 07-07-2023 take 1 capsule [...] as directed Take 1 capsule by mo ut one hour before bedtime in addition to gabapentin 100 mg capsule TAKE 1 CAPSULE BY MO UTH 1 HOUR BEFORE BEDTIME IN ADDITION TO 100 MG CAPSULE TAKE 1-2 CAPSULES BY MOUTH 1 HOUR BEFORE BEDTIME. TAKE 3 CAPSULES BY M OUT 1 HOUR BEFORE BEDTIME. TAKE 1 CAPSULE BY MO UT 1 HOUR BEFORE BEDTIME IN ADDITION TO 100MG lidocaine hydrochloride 0.02 mg/mg topical gel (5 sources) Antiarrhythmic, Amide Local Anesthetic Start: 2 End: 2 lidocaine urojet 2 % 11 mL topical gel (XYLOCAINE, GLYDO) loratadine 10 mg oral tablet (20 sources) Start: 1 End: 5 take 1 tablet by mouth once daily Loratadine (Claritin) 10 mg tablet Discontinued 10 mg PO DAILY November 26, 2020 12:00am January 18, 2025 9:16am Start: 06-02-2018 End: 06-08-2018 take 1 tablet by mouth once daily Loratadine 10 mg tablet Discontinued 10 mg PO DAILY June 02, 2018 1:00am June 08, 2018 10:39am LORATADINE (CLAR ITIN ORAL) Take by mouth. Active LORATADINE (CLAR ITIN ORAL) Take by mouth. 0 Active Comment on above: Take by mouth. LORazepam 1 mg oral tablet (7 sources) Benzodiazepine Start: 11-06-2023 End: 07-07-2024 take 1 tablet by mouth twice daily as needed for anxiety Lorazepam (Ativan) 1 mg tablet Discontinued 1 mg PO TWICE A DAY as needed for anxiety November 06, 2023 12:00am July 07, 2024 12:32pm metFORMIN hydrochloride 500 mg oral tablet (20 sources) Biguanide Start: 07-07-2024 End: 01-18-2025 take 1 tablet by mouth twice daily Metformin 500 mg tablet Discontinued 500 mg PO TWICE A DAY July 07, 2024 12:32pm January 18, 2025 9:19am Start: 01-18-2024 End: 07-07-2024 take 2 tablets by mouth twice daily Metformin 500 mg tablet Discontinued 1000 mg PO TWICE A DAY January 18, 2024 1:12pm July 07, 2024 12:33pm Start: 12-06-2019 End: 02-09-2022 take 1 tablet by mouth in the morning, then take 0.5 tablet by mouth in the evening metFORMIN (GLUCOPHAGE) 1,000 mg tablet Indications: Type 2 diabetes mellitus without complication (HCC) Take 1 tab by mouth in am and 1/2 tablet in evening. 135 tablet 3 02/09/2022 Active Start: 05-30-2019 End: 01-18-2024 take 1 tablet by mouth at bedtime Metformin 500 mg tablet Discontinued 500 mg PO AT BEDTIME July 08, 2023 2:37pm January 18, 2024 1:13pm Start: 06-02-2018 End: 11-05-2023 take 0.5 tablet by mouth once daily in the evening Metformin 1,000 mg tablet Discontinued 1000 mg PO DAILY July 08, 2023 2:49pm November 05, 2023 9:19am 1,000 mg PO Take 1 tab in the AM and 1/2 tab in the PM; Comment on above: Take 1 tab by mouth in am and 1/2 tablet in evening. OLANZapine 10 mg oral tablet (5 sources) Atypical Antipsychotic Start: 01-18-20 End: 07-07-19 Olanzapine 10 mg tablet Discontinued 10 mg PO January 18, 2024 12:00am July 07, 2024 12:33pm omeprazole 40 mg delayed release oral capsule (5 sources) Proton Pump Inhibitor Start: 03-31-20 End: 06-29-19 23 take 1 capsule by mouth once daily omeprazole (PRILOSEC) 40 mg capsule Indications: Nausea , Weight loss Take 1 capsule by mouth once daily. 30 capsule 2 03/31/2022 04/17/2022 Discontinued Comment on above: Take 1 capsule by [facility] once daily. promethazine hydrochloride 25 mg oral tablet (17 sources) Phenothiazine Start: 03-31-20 End: 07-08-19 24 take 1 tablet by mouth three times daily as needed for nausea and vomiting Promethazine 25 mg tablet Discontinued 25 mg PO THREE TIMES A DAY as needed for nausea and vomiting March 31, 2022 12:00am July 08, 2023 2:50pm rosuvastatin calcium 5 mg oral tablet (17 sources) HMG-CoA Reductase Inhibitor Start: 03-17-20 End: 04-30-20 take 1 tablet by mouth once daily Rosuvastatin 5 mg tablet Discontinued 5 mg PO DAILY 27 05March 17, 2022 12:00am April 30, 2022 8:47am sertraline 100 mg oral tablet (8 sources) Serotonin Reuptake Inhibitor Start: 10-16-19 End: 01-14-20 take 1.5 tablets by mouth once daily [...] tablet by anthony th once daily. Take 1.5 tablets by mouth [...] mg / trimethoprim 160 mg oral tablet (20 sources) Dihydrofolate Reductase Inhibitor Antibacterial, Sulfonamide Antimicrobial Start: End: sulfamethoxazole-t rimethoprim 800-160 mg 1 tablet (BACTRIM DS,SEPTRA DS) Start: 06-06-2019 End: 11-26-2020 Sulfamethoxazole-Trimethopri m 1 EACH tablet Discontinued 1 NMA PO TWICE A DAY 14 June 06, 2019 1:00am November 26, 2020 10:30am Start: 06-06-2019 End: 11-26-2020 Sulfamethoxazole-Trimethopri m Discontinued 1 EACH PO TWICE A DAY June 06, 2019 1:00am November 26, 2020 10:30am tadalafil 5 mg oral tablet (20 sources) Phosphodiesterase 5 Inhibitor Start: 10-15-2021 End: 11-05-2023 take 1 tablet by mouth once daily as needed Tadalafil 5 mg tablet Discontinued 1 {tbl} PO DAILY NEEDED as needed for Erectile Dysfunction January 25, 2022 12:00am November 05, 2023 9:19am Start: 09-08-2021 End: 12-07-2021 take 1 tablet by mouth once daily Tadalafil (CIALIS) 2.5 mg tab Take 1 tablet by mouth once daily. 30 tablet 2 09/08/2021 11/11/2021 Discontinued Start: 06-02-2018 End: 11-26-2020 take 1 tablet by mouth once daily as needed Tadalafil 5 mg tablet Discontinued 5 mg PO DAILY as needed for ed June 02, 2018 1:00am November 26, 2020 10:30am Comment on above: Take 1 tablet by anthony th once daily. Take 1 tablet by anthony th as needed. Problems Active Problems Problem Classification Problem Date Documented Date Episodic/Chronic Acquired foot deformities (1 source) Acquired deformity of joint of big toe; Translations: [Other deformities of toe(s) (acquired), unspecified foot] Episodic Acute and unspecified renal failure (1 source) Acute injury of kidney; Translations: [Acute kidney failure, unspecified] Episodic Anxiety disorders (20 sources) Claustrophobia; Translations: [Claustrophobia] Onset: 12-06-2020 1 Chronic Chronic kidney disease (20 sources) Chronic kidney disease; Translations: [Chronic kidney disease, unspecified] Onset: 12-06-2020 12-06-2020 Chronic Chronic kidney disease (1 source) Chronic kidney disease; Translations: [Chronic kidney disease, stage 3a] Onset: 10-05-2024 Complications of surgical procedures or medical care (6 sources) Drug therapy finding; Translations: [Unspecified adverse effect of drug or medicament, initial encounter] 11-08-2023 Episodic Conduction disorders (20 sources) Right bundle branch block; Translations: [Other right bundle-branch block] Onset: 12-06-2020 12-06-2020 Chronic Coronary atherosclerosis and other heart disease (20 sources) Coronary atherosclerosis; Translations: [Atherosclerotic heart disease of seminole coronary artery without angina pectoris] Onset: 08-18-2024 04-30-2022 Chronic Diabetes mellitus with complications (20 sources) 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; Translations: [Type 2 diabetes mellitus with diabetic chronic kidney disease] Onset: 01-05-2022 Resolved: 08-27-2022 01-05-2022 Chronic Diabetes mellitus without complication (20 sources) Type 2 diabetes mellitus without complication; Translations: [Type 2 diabetes mellitus without complications] 05-19-2016 Chronic Disorders of lipid metabolism (20 sources) Pure hypercholesterolemia; Translations: [Pure hypercholesterolemia, unspecified] Onset: 02-10-2021 11-14-2015 Chronic Essential hypertension (20 sources) Hypertensive disorder; Translations: [Essential (primary) hypertension] Onset: 07-18-2012 07-18-2012 Chronic Heart valve disorders (1 source) Nonrheumatic aortic (valve) insufficiency; Translations: [Nonrheumatic aortic (valve) insufficiency] Onset: 06-22-2024 Chronic Hyperplasia of prostate (20 sources) Benign prostatic [...] influenza virus with other respiratory manifestations] Episodic Malaise and fatigue (20 sources) Fatigue; Translations: [Other fatigue] Onset: 01-18-2025 Episodic Mood disorders (2 sources) Recurrent major depressive episodes, moderate ; Translations: [Major depressive disorder, recurrent, moderate] Chronic Nausea and vomiting (18 sources) Nausea; Translations: [Nausea] Episodic Other acquired deformities (20 sources) Acquired deformity of nose; Translations: [Acquired deformity of nose] 03-16-2022 Episodic Other connective tissue disease (1 source) Plantar fasciitis; Translations: [Plantar fascial fibromatosis] Episodic Other connective tissue disease (1 source) Muscle pain; Translations: [Myalgia, unspecified site] 06-30-2021 Episodic Other connective tissue disease (1 source) Increased muscle tone; Translations: [Other specified disorders of muscle] 06-30-2021 Episodic Other endocrine disorders (1 source) Syndrome of inappropriate secretion of antidiuretic hormone; Translations: [Syndrome of inappropriate secretion of antidiuretic hormone] Onset: 08-04-2024 Chronic Other hereditary and degenerative nervous system conditions (3 sources) Restless legs; Translations: [Restless legs syndrome] Chronic Other infections; including parasitic (1 source) Personal history of other infectious and parasitic diseases; Translations: [History of COVID-19] Episodic Other injuries and conditions due to external causes (2 sources) At high risk for fall; Translations: [History of falling] Episodic Other lower respiratory disease (20 sources) Dyspnea on exertion; Translations: [Other forms of dyspnea] 02-10-2022 Episodic Other lower respiratory disease (5 sources) Other forms of dyspnea; Translations: [Other respiratory abnormalities] Onset: 01-18-2025 Episodic Other lower respiratory disease (9 sources) Dyspnea; Translations: [Shortness of breath] 07-07-2024 Episodic Other male genital disorders (20 sources) Male erectile dysfunction, unspecified; Translations: [Impotence of organic origin] Onset: 07-18-2012 07-18-2012 Chronic Other nervous system disorders (20 sources) Dysarthria; Translations: [Dysarthria and anarthria] 02-17-2021 Episodic Other nervous system disorders (1 source) Impaired [...] (1 source) Hypomagnesemia; Translations: [Hypomagnesemia] Chronic Other upper respiratory disease (20 sources) Allergic rhinitis; Translations: [Other allergic rhinitis] 12-22-2005 Chronic Other upper respiratory disease (20 sources) Hypertrophy of nasal turbinates; Translations: [Hypertrophy of nasal turbinates] 03-16-2022 Episodic Other upper respiratory disease (20 sources) Nasal congestion; Translations: [Nasal congestion] 03-16-2022 Episodic Other upper respiratory disease (20 sources) Deviated nasal septum; Translations: [Deviated nasal septum] 03-16-2022 Episodic Residual codes; unclassified (1 source) 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; Translations: [Insomnia due to medical condition] Chronic Residual codes; unclassified (1 source) Pain; Translations: [Pain, unspecified] Episodic Residual codes; unclassified (20 sources) Altered mental status; Translations: [Altered mental status, unspecified] 02-17-2021 Episodic Residual codes; unclassified (7 sources) Insomnia; Translations: [Insomnia, unspecified] 11-06-2023 Episodic Skull and face fractures (20 sources) Closed fracture of nasal bones; Translations: [Fracture of nasal bones, initial encounter for closed fracture] 03-16-2022 Episodic Spondylosis; intervertebral disc disorders; other back problems (1 source) Lumbar spondylosis; Translations: [Spondylosis without myelopathy or radiculopathy, lumbar region] 06-30-2021 Chronic Syncope (3 sources) Syncope; Translations: [Syncope and collapse] 10-30-2024 Episodic Thyroid disorders (13 sources) Thyroid nodule; Translations: [Nontoxic single thyroid nodule] Onset: 10-03-2024 11-05-2023 Chronic Comment on above: Patient is a 73-year -old male with mild hyperthyroidism, who presents for a newly described right thyroid nodule. This nodule was found incidentally during a workup for other symptoms of severe anxiety, exercise intolerance, and signs of hyponatremia It is difficult to ascertain whether his thyroid dysfunction is playing into his symptoms at all, but upon eliciting his history I do have a strong suspicion for underlying cardiac pathophysiology. Patient's ultrasound results were reviewed with he and his . I provided a schematic of his thyroid and used this as the backdrop to describe the triage process for thyroid nodules. Included in this discussion was a overview of the TI-RADS grading system. Although a TI-RADS rating was not given for patient's thyroid nodule by radiology, my independent review found this TI-RADS rating to be a 4 based on points for mixed composition, hypoechoic echogenicity, and irregular border. Given that the overall diameter is greater than 1.5 cm I did extend the recommendation to pursue FNA biopsy by ACR criteria. Patient was receptive of this recommendation and after some counseling was able to undergo the procedure during today's consultation visit in an uncomplicated fashion. Full details of this procedure given the procedures section of this note. Additionally, I have requested repeat thyroid labs to assess patient's T3 and T4 alongside of his TSH as I find it unusual to have a low T4 alongside of a low TSH. I also requested thyroid-stimulating immunoglobulins to assess for his risk for Graves' disease especially upon hearing his family history. Patient is a 73-year -old male with mild hyperthyroidism, who presents for a newly described right thyroid nodule. This nodule was found incidentally during a workup for other symptoms of severe anxiety, exercise intolerance, and signs of hyponatremia It is difficult to ascertain whether his thyroid dysfunction is playing into his symptoms at all, but upon eliciting his history I do have a strong suspicion for underlying cardiac pathophysiology. Patient's ultrasound results were reviewed with he and his . I provided a schematic of his thyroid and used this as the backdrop to describe the triage process for thyroid nodules. Included in this discussion was a overview of the TI-RADS grading system. Although a TI-RADS rating was not given for patient's thyroid nodule by radiology, my independent review found this TI-RADS rating to be a 4 based on points for mixed composition, hypoechoic echogenicity, and irregular border. Given that the overall diameter is greater than 1.5 cm I did extend the recommendation to pursue FNA biopsy by ACR criteria. Patient was receptive of this recommendation and after some counseling was able to undergo the procedure during today's consultation visit in an uncomplicated fashion. Full details of this procedure given the procedures section of this note. Additionally, I have requested repeat thyroid labs to assess patient's T3 and T4 alongside of his TSH as I find it unusual to have a low T4 alongside of a low TSH. I also requested thyroid-stimulating immunoglobulins to assess for his risk for Graves' disease especially upon hearing his family history.Update 10/16/2024: Patient is now a 74-year-old male who makes follow-up related to a history of a right thyroid nodule. He denies any concerns related to his prior issues with difficulty swallowing and cough. His last TSH checked April 2024 showed that it is now within normal limits. Repeat ultrasound performed earlier this month was reported by radiology as normal ultrasound and found no suspicious thyroid nodules meeting ACR TI-RADS criteria for follow-up. I differ slightly from this impression after reviewing patient's primary imaging. This imaging certainly depicts the persistence of a lesion in the right inferior pole which was measured by the technologist at 1.76 x 1.47 x 1.17 cm. The sonographic characteristics remained stable. When I compare these dimensions to patient's prior dimensions using a volumetric analysis there has been just a 7% increase in volume. It is likely that the majority if not all of this increase is due to change in the cystic composition of the nodule. Therefore, with this analysis and his history of a biopsy benign nodule, it is my recommendation to Mr. Padgett discontinue surveillance of the nodule unless some new compressive symptoms arises in the future. Additionally, Mr. Padgett asked whether he should be on thyroid hormone of some sort and I clarified that with his physiology this would not be appropriate as his TSH is generally low. He expressed understanding appreciation for this explanation. Past or Other Problems Problem Classification Problem Date Documented Da te Episodic/Chronic Conditions associated with dizziness or vertigo (20 sources) Severe vertigo, acute onset; Translations: [Dizziness and giddiness] Onset: 08-18-2024 02-17-2021 Episodic Fluid and electrolyte disorders (20 sources) Hyponatremia; Translations: [Hypo-osmolality and hyponatremia] Onset: 10-06-2024 Episodic Genitourinary symptoms and ill-defined conditions (20 sources) Jose Angel hematuria; Translations: [Gross hematuria] Onset: 05-18-2022 Episodic Neoplasms of unspecified nature or uncertain behavior (1 source) Neoplasm of unspecified behavior of bone, soft tissue, and skin; Translations: [Neoplasm of unspecified behavior of bone, soft tissue, and skin] Onset: 07-14-2024 Episodic Other acquired deformities (20 sources) Spondylolisthesis; Translations: [Spondylolisthesis , site unspecified] Onset: 01-26-2014 01-26-2014 Episodic Other circulatory disease (1 source) Hypotension, unspecified; Translations: [Hypotension, unspecified] Onset: 06-06-2024 Episodic Other connective tissue disease (20 sources) Bilateral plantar fasciitis; Translations: [Plantar fascial fibromatosis] Onset: 02-26-2020 02-26-2020 Episodic Other connective tissue disease (15 sources) Pelvic floor dysfunction; Translations: [Other specified disorders of muscle] Onset: 07-07-2022 07-07-2022 Episodic Other gastrointestinal disorders (1 source) Diarrhea, unspecified; Translations: [Diarrhea, unspecified] Onset: 09-28-2024 Episodic Other lower respiratory disease (1 source) Shortness of breath; Translations: [Shortness of breath] Onset: 08-18-2024 Episodic Other nervous system disorders (1 source) Other symptoms and signs involving cognitive functions and awareness; Translations: [Other symptoms and signs involving cognitive functions and awareness] Onset: 06-20-2024 Episodic Other screening for suspected conditions (not mental disorders or infectious disease) (20 sources) Patient encounter status; Translations: [Encounter for screening for lipoid disorders] Onset: 07-19-2024 Episodic Pancreatic disorders (not diabetes) (2 sources) Exocrine pancreatic insufficiency; Translations: [Exocrine pancreatic insufficiency] Onset: 10-10-2024 01-18-2025 Episodic Residual codes; unclassified (20 sources) Other specified health status; Translations: [Other drug allergy] Onset: 07-07-2021 07-07-2021 Episodic Spondylosis; intervertebral disc disorders; other back problems (20 sources) Low back pain; Translations: [Low back pain] Onset: 01-26-2014 01-26-2014 Episodic Results Test Name Value Interpretation Reference Range Facility Cardiology Visit Reporton Cardiology Visit Report [facility] [address] [place] [address] OFFICE VISIT Date of Service: 01/18/25 MR#: [id number] Acct: [id number] Name: OSMAN PADGETT Rep #: [id number] : 1950 Provider: LYNN telles Age/Sex: 75/M Location[place] [facility] [place] [facility] [place] Status: Signed HPI HPI History of Present Illness Details: Osman Padgett (Bill) is a 75-year-old male who presents here today for a cardiovascular follow-up visit. Patient underwent a 5 day event monitor after experiencing a syncopal episode in August 2024. Patient reports he was walking in his hallway when he stumbled, was lightheaded, continued to walk and then passed out hitting the floor. Around that time, he was also started on Ozempic for his diabetes. He was being worked up for diarrhea as well. His lab work (09/19/24) demonstrated hgb WNL, Scr improved from prior, hyponatremia which appears to be his baseline. Holter monitor 09/20-09/25/24 demonstrated predominant rhythm NSR with first degree block, no pauses > 2.5 seconds, average HR 76 bpm, lowest 53bpm, and highest 133 bpm, 0.9% PAC burden and 0.5% PVC burden, ectopic atrial runs, and p-waves suggestive of left atrial disease. Patient has a history of lightheadedness with standing up quickly along with SOB with activity. He has a history of right bundle branch block, hypertension, hyperlipidemia and diabetes. He was seen in our office in 2017 for evaluation of his right bundle branch block. His most recent stress test from October of 2023 demonstrated possible inferior ischemia. Medical therapy was recommended because you remember that he underwent a stress test in February 2022 which demonstrated inferior infarct at moderate to high workload-he underwent a cardiac catheterization which demonstrated nonobstructive coronary disease. From a cardiac standpoint, the patient is doing well. He does acknowledge occasional palpitations. He denies chest pain, pressure or heaviness. He does acknowledge SOB with exertion/any physical activity. He denies Orthopnea, and PND. He does not have bleeding issues; no blood in urine, stool, or nosebleeds. He does acknowledge fatigue. He denies myalgias, or claudication. He does not have edema, or sudden weight gain. He does have lightheadedness with positional changes. He states he has a near syncopal episode about once a month. He denies dizziness, syncopal or near syncopal episodes, and headaches. Intake Vital Signs 01/18/24 13:09 10/27/24 11:12 01/18/25 09:21 Height 6 ft 6 ft 6 ft Weight: 199 lb BMI 26.9 BP 129/75 H Blood Pressure Location Lt brachial Position Sitting Respiration 16 Pulse 79 Pulse Source Monitor Pulse Oximetry (%) 97 Oxygen Delivery Method room air Intake Visit Reasons: 1 Y FU Foster Winder Required: No Accompanied by: Is patient in pain?: No Allergies Thiazides Allergy (Severe, Verified 01/18/25 09:31) Other diphenhydramine (From Benadryl) Allergy (Intermediate, Verified 01/18/25 09:31) Other Penicillins Allergy (Intermediate, Verified 01/18/25 09:31) Rash [id number] Reductase Inhibitor Allergy (Intermediate, Verified 01/18/25 09:31) Other trazodone Allergy (Intermediate, Verified 01/18/25 09:31) Other atorvastatin Adverse Reaction (Intermediate, Verified 01/18/25 09:31) messed with my head simvastatin Adverse Reaction (Intermediate, Verified 01/18/25 09:31) messed with my head Medications ???Medication ???Instructions ???Recorded ???Confirmed ???Type multivitamin 1 tab PO DAILY 02/08/21 01/18/25 H istory aspirin 81 mg capsule 81 mg PO DAILY 03/16/22 01/18/25 H istory cholecalciferol (vitamin D3) 50 50 mcg PO DAILY 11/05/23 01/18/25 History mcg (2,000 unit) capsule azelastine 137 mcg (0.1 %) nasal intranasal PRN Allergies 07/07/24 01/18/25 History spray duloxetine 60 mg capsule,delayed 60 mg PO DAILY depression 07/07/24 01/18/25 History release lisdexamfetamine 60 mg capsule 60 mg PO QDAY Helps me focus 07/0701/18/25 History (Vyvanse) magnesium 500 mg tablet 250 mg PO BID supplement 07/07/24 01/18/25 History pioglitazone 30 mg tablet 30 mg PO DAILY Diabetic 07/07/24 0 01/18/25 History duloxetine 40 mg capsule,delayed 40 mg PO QDAY 01/18/25 01/18/25 Hi story release fexofenadine 180 mg tablet 180 mg PO QDAY 01/18/25 01/18/25 H istory (Yaima Allergy) l-methyl folate 1 tab PO QDAY 01/18/25 01/18/25 Hi story [id number] cap PO TID 01/18/25 01/18/25 Histo ry 36,000-114,000-180,000 unit capsule,delay rel (Creon) lisinopril 2.5 mg tablet 2.5 mg PO QHS 01/18/25 01/18/25 Hi story ropinirole 2 mg tablet 4 mg PO QHS 01/18/25 01/18/25 Hist ory semaglutide 0.25 mg or 0.5 mg (2 0.5 mg subcut QWEEK 01/18/2501/18 History mg/3 mL) alcantara (more content not included)... Normal [facility] Cardiology Visit Reporton Cardiology Visit Report [facility] [address] [place] [address]. [address] [place] [address] OFFICE VISIT Date of Service: 10/27/24 MR#: [id number] Acct: [id number] Name: OSMAN PADGETT Rep #: [id number] : 1950 Provider: ERA Andino Age/Sex: 74/M Location[place] [facility] [place] [place] Status: Signed HPI HPI History of Present Illness Details: Osman Padgett (Bill) is a 74-year-old male who presents here today for review of recent holter monitor ordered by PCP. Patient underwent a 5 day monitor after experiencing a syncopal episode in August 2024. Patient reports he was walking in his hallway when he stumbled, was lightheaded, continued to walk and then passed out hitting the floor. Around that time, he was also started on Ozempic for his diabetes. He was being worked up for diarrhea as well. His lab work (09/19/24) demonstrated hgb WNL, Scr improved from prior, hyponatremia which appears to be his baseline. Holter monitor 09/20-09/25/24 demonstrated predominant rhythm NSR with first degree block, no pauses > 2.5 seconds, average HR 76 bpm, lowest 53bpm, and highest 133 bpm, 0.9% PAC burden and 0.5% PVC burden, ectopic atrial runs, and p-waves suggestive of left atrial disease. Patient has a history of lightheadedness with standing up quickly along with SOB with activity. He has a history of right bundle branch block, hypertension, hyperlipidemia and diabetes. He was seen in our office in 2017 for evaluation of his right bundle branch block. His most recent stress test from October of 2023 demonstrated possible inferior ischemia. Medical therapy was recommended because you remember that he underwent a stress test in February 2022 which demonstrated inferior infarct at moderate to high workload he underwent a cardiac catheterization which demonstrated nonobstructive coronary disease. Patient reports ongoing lightheadedness with standing that he has been experiencing for several months now. He notes fatigue and weakness, most noticable with activity, SOB with activity x2-3 years. He experiences palpitations described as a fluttering feeling. Further ROS below. Intake Vital Signs 07/07/24 11:28 10/27/24 11:12 Height 6 ft 6 ft Weight: 265 lb BMI 35.9 BP 114/79 Blood Pressure Location Lt brachial Position Sitting Respiration 16 Pulse 74 Pulse Source NIBP Intake Visit Reasons: ABN HOLTER Foster Winder Required: Yes Accompanied by: Is patient in pain?: No Allergies Thiazides Allergy (Severe, Verified 10/27/24 11:16) Other diphenhydramine (From Benadryl) Allergy (Intermediate, Verified 10/27/24 11:16) Other Penicillins Allergy (Intermediate, Verified 10/27/24 11:16) Rash Ewlynog-QUZ-LpD Reductase Inhibitor Allergy (Intermediate, Verified 10/27/24 11:16) Other trazodone Allergy (Intermediate, Verified 10/27/24 11:16) Other atorvastatin Adverse Reaction (Intermediate, Verified 10/27/24 11:16) messed with my head simvastatin Adverse Reaction (Intermediate, Verified 10/27/24 11:16) messed with my head Medications ???Medication ???Instructions ???Recorded ???Confirmed ???Type loratadine 10 mg tablet (Claritin) 10 mg PO DAILY 11/26/20 10/27/24 History multivitamin 1 tab PO DAILY 02/08/21 10/27/24 H istory aspirin 81 mg capsule 81 mg PO DAILY 03/16/22 10/27/24 H istory cholecalciferol (vitamin D3) 50 50 mcg PO DAILY 11/05/23 10/27/24 History mcg (2,000 unit) capsule ropinirole 0.5 mg tablet 1 mg PO QHS 01/18/24 10/27/24 Hist ory azelastine 137 mcg (0.1 %) nasal intranasal PRN Allergies 07/07/24 10/27/24 History spray dapagliflozin propanediol 10 mg 10 mg PO DAILY Diabetic, CKD, 06/2810/27/24 History tablet (Farxiga) Heart problems duloxetine 60 mg capsule,delayed 60 mg PO DAILY depression 07/07/24 10/27/24 History release lisdexamfetamine 60 mg capsule 60 mg PO QDAY Helps me focus 07/0710/27/24 History (Vyvanse) magnesium 500 mg tablet 250 mg PO BID supplement 07/07/24 10/27/24 History metformin 500 mg tablet 500 mg PO BID 07/07/24 10/27/24 Hi story pioglitazone 30 mg tablet 30 mg PO DAILY Diabetic 07/07/24 0 10/27/24 History cepllw-vjqzofao-saxmyxk cap PO TID 10/27/24 10/27/24 Histo ry 36,000-114,000-180,000 unit capsule,delay rel (Creon) Ejection fraction %: 65 Have you fallen in the past year?: Yes [facility] Medical History Chronic kidney disease (CKD) Abnormal stress test Nasal turbinate hypertrophy Closed fracture nasal bone Acquired nasal deformity Nasal septal deviation Nasal congestion Type 2 diabetes mellitus Right bundle branch block History of basal cell carcinoma Allergic rhinitis due to other allergen Spondylolisthesis Erectile dysfunction Essential hypertension Pure hypercholes (more content not included)... Normal [facility] Surgery Visit Reporton 10-16 Surgery Visit Report [facility] [address] [place] [address] OFFICE VISIT Date of Service: 10/16/24 MR#: [id number] Acct: [id number] Name: OSMAN PADGETT Rep #: [id number] : 1950 Provider: Dr. Miguel ramirez MD Age/Sex: 74/M Location: [facility] Status: Signed Intake Vital Signs 07/07/24 11:28 Height 6 ft Intake Visit Reasons: RECALL THYROID Chief Complaint: recall thyroid Is patient in pain?: No Allergies Thiazides Allergy (Severe, Verified 10/16/24 13:09) Other diphenhydramine (From Benadryl) Allergy (Intermediate, Verified 10/16/24 13:09) Other Penicillins Allergy (Intermediate, Verified 10/16/24 13:09) Rash Wxigfov-MPG-QkR Reductase Inhibitor Allergy (Intermediate, Verified 10/16/24 13:09) Other trazodone Allergy (Intermediate, Verified 10/16/24 13:09) Other atorvastatin Adverse Reaction (Intermediate, Verified 10/16/24 13:09) messed with my head simvastatin Adverse Reaction (Intermediate, Verified 10/16/24 13:09) messed with my head Medications ???Medication ???Instructions ???Recorded ???Confirmed ???Type loratadine 10 mg tablet (Claritin) 10 mg PO DAILY 11/26/20 10/16/24 History multivitamin 1 tab PO DAILY 02/08/21 10/16/24 H istory aspirin 81 mg capsule 81 mg PO DAILY 03/16/22 10/16/24 H istory cholecalciferol (vitamin D3) 50 50 mcg PO DAILY 11/05/23 10/16/24 History mcg (2,000 unit) capsule ropinirole 0.5 mg tablet 1 mg PO QHS 01/18/24 10/16/24 Hist ory azelastine 137 mcg (0.1 %) nasal intranasal PRN Allergies 07/07/24 10/16/24 History spray dapagliflozin propanediol 10 mg 10 mg PO DAILY Diabetic, CKD, 06/2810/16/24 History tablet (Farxiga) Heart problems duloxetine 60 mg capsule,delayed 60 mg PO DAILY depression 07/07/24 10/16/24 History release lisdexamfetamine 60 mg capsule 60 mg PO QDAY Helps me focus 07/0710/16/24 History (Vyvanse) magnesium 500 mg tablet 250 mg PO BID supplement 07/07/24 10/16/24 History metformin 500 mg tablet 500 mg PO BID 07/07/24 10/16/24 Hi story pioglitazone 30 mg tablet 30 mg PO DAILY Diabetic 07/07/24 0 10/16/24 History Have you fallen in the past year?: No [facility] Medical History Chronic kidney disease (CKD) Abnormal stress test Nasal turbinate hypertrophy Closed fracture nasal bone Acquired nasal deformity Nasal septal deviation Nasal congestion Type 2 diabetes mellitus Right bundle branch block History of basal cell carcinoma Allergic rhinitis due to other allergen Spondylolisthesis Erectile dysfunction Essential hypertension Pure hypercholesterolemia Surgical History History of left heart catheterization (03/16/22) History of varicose veins History of sinus surgery (1989) History of esophagogastroduodenoscopy (EGD) (04/19/14) History of colonoscopy (01/19/14) Family History Mother Cancer breast Diabetes Thyroid disorder Father Cancer leukemia Hypertension Social History Smoking Status: Never smoker alcohol intake: never substance use type: does not use caffeine: Yes Type: coffee Number of servings: 3 HPI HPI HPI: Patient is 74-year-old male who presents for surveillance of right thyroid nodule. He established surgical consultation 11/05/2023. He reports today stating that he has little memory of our prior encounter as he had a lot of mental issues going on at that time that were primarily centered on high-level anxiety but negatively impacted his memory. 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 When asked about his complaints of cough and swallow from his prior visit he notes that both are better but states little more. Patient completed thyroid ultrasound in preparation for today's visit. This was completed 10/05/2024 and found right thyroid lobe measuring 5.7 x 1.6 x 2.1 cm. The left thyroid lobe then measured 4.3 x 1.7 x 1.4 cm. Isthmus was measured the thickness was 0.3 cm. Radiology's impression was that of a normal thyroid ultrasound. They stated that there were no suspicious thyroid nodules meeting ACR TI-RADS criteria for follow-up. Below is recapitulated from patient consultation visit for ease of review: Patient is a 73-year-old male who presents for evaluation of a thyroid nodule. They are referred for surgical consultation from Dr. Hidalgo. He presents to today's consultation visit with his . This (more content not included)... Normal [facility] Abdomen Limitedon 10-05-2024 Abdomen Limited [facility] [address] [place], [place] [address] Abdomen Limited MR#: [id number] Acct: [id number] Name: OSMAN PADGETT Rep #: [id number] : 1950 M 74 From: Rodrigue Chanel i, DO PCP: Dr. Lenin Hidalgo MD Status: REG CLI Study: Abdomen Limited Date of Exam: 10/05/24 Exam# [id number] Ordering Dr: Lenin Hidalgo MD PROCEDURE: Abdominal ultrasound. 10/05/2024 REASON FOR EXAM: EXOCRINE PANCREATIC INSUFFICIENCY TECHNIQUE: Sonographic evaluation of the upper abdomen was performed. COMPARISON: None available FINDINGS: Included portions of the pancreas show no specific abnormality. No abdominal ascites. Segmentally visualized portions of the liver demonstrate coarse echotexture, without discrete parenchymal lesion. A solitary 2 cm echogenic gallstone is present. No significant gallbladder wall thickening or pericholecystic fluid. Negative sonographic Elliott's sign. The common duct is measured at 5 mm. The right kidney is 10.7 cm in length, unremarkable. US/Abdomen Limited IMPRESSION: Cholelithiasis without evidence of acute cholecystitis. Negative sonographic Elliott's sign reported. Coarse liver echotexture may be due to fatty metamorphosis. The remainder of the examination is unremarkable. Reading Location: [facility] CC: Dr. Lenin Hidalgo MD Continuous Improvement Director: Signed Normal [facility] Albumin DL <= 20 mg/L (U) [M ass/Vol]Ordered By: Lenin Hidalgo on 10-05-2024 Urine Random Microalbumin < 12.0 mg/L NO RANGE EST. [facility] Creatinine Unsp time (U) [Ma ss/Vol]Ordered By: Lenin Hidalgo on 10-05-2024 Creatinine (U) [Mass/Vol] 72.60 mg/dL 39.00-259. 00 [facility] Microalb:Creat Ratio,Random URon 10-05-2024 Creatinine [Mass/Vol] 72.60 mg/dL Normal 39.00- 259. 00 [facility] Comment on above: Performed By: #### L 502.0250 #### [facility] Laboratory [address] [place], [place], [id number] MALB:CREAT UNABLE TO CALCULATE Normal [facility] Comment on above: Performed By: #### L 502.0250 #### [facility] [address] [place], [place], [id number] MICROALBUMIN,UR < 12.0 Normal NO RANGE EST. [facility] Comment on above: Performed By: #### L 502.0250 #### [facility] [address] [place], [place], [id number] Microalbumin/creat ratio urO rdered By: Lenin Hidalgo on 10-05-2024 Urine Microalbumin/Creatinine Ratio UNABLE TO CALCULATE mg/g CRE [facility] Urine microalbumin/creatinine ratio measurement UNABLE TO CALCULATE mg/g CRE [facility] Random urine creatinine kay urement (mass/volume)Ordered By: Lenin Hidalgo on 10-05-2024 Creatinine Unsp time (U) [Mass/Vol] 72.60 mg/dL 39.00-259. 00 [facility] Thyroidon 10-05-2024 Thyroid [facility] [address] [place], [place] [id number] Thyroid MR#: [id number] Acct: [id number] Name: OSMAN PADGETT Rep #: [id number] : 1950 M 74 From: Sumi Hagan nd, MD PCP: Dr. Lenin Hidalgo MD Status: REG CLI Study: Thyroid Date of Exam: 10/05/24 Exam# [id number] Ordering Dr: Miguel Kirby MD PROCEDURE: THYROID 10/05/2024 REASON FOR EXAM: THYROID ULTRASOUND TECHNIQUE: Thyroid ultrasound COMPARISON: CTA chest 07/28/2024. FINDINGS: Right thyroid lobe measures 5.7 x 1.6 x 2.1 cm. Left thyroid lobe measures 4.3 x 1.7 x 1.4 cm. Isthmus thickness is0.3 cm. Thyroid Size: Normal Background Echotexture: Homogeneous Thyroid Nodules: No suspicious thyroid nodules visualized. US/Thyroid IMPRESSION: Normal thyroid ultrasound. No suspicious thyroid nodules meeting ACR TI-RADS criteria for follow- up. Reading Location: [facility] CC: Dr. Lenin Hidalgo MD; Dr. Miguel Kirby MD Continuous Improvement Director: Signed Normal [facility] Urine albumin measurement [facility] detection limit of 20 mg/L or less (mass/volume)Ordered By: Lenin Hidalgo on 10-05-2024 Albumin DL <= 20 mg/L (U) [Mass/Vol] < 12.0 mg/L NO RANGE EST. [facility] Rubeola IgG Abon 10-04-2024 RUBEOLA Ab, IgG > 300.0 Normal Immune >16.4 [facility] Comment on above: Order Comment: Order Date: 10/02/24Order Info: [id number] - RUBEOG Result Comment: Nega tive <13.5 Equivocal 13.5 - 16.4 Positive >16.4 Presence of antibodies to Rubeola is presumptive evidence of immunity except when acute infection is suspected. Performed at: [address] [id number] [employer] Repairer: Bonifacio De Jesus PhD, Phone: [phone] Performed By: #### L 500.2880, L501.1770, L501.8980, L506.1001 #### [facility] [address] [place], [place], [id number] Vitamin D,25 Hydroxyon 10-03 Vitamin D 25-OH 54.1 ng/mL Normal 30-100 [facility] Comment on above: Order Comment: DR. Raymond BKAER ORDERED VITD *ADD ON PLEASE ADD ON VITD TO LABS DONE ON 10-02-24 Result Comment: Magdalene min D Status Deficiency: <20 ng/mL (50nmol/L) Insufficiency: 20-30 ng/mL (50-75 nmol/L) Sufficiency: 30-100 ng/mL (75-250 nmol/L) Toxicity: >100 ng/mL (>250 nmol/L) Performed By: #### L 500.4050, L501.2450, L501.5200, L506.1001 #### [facility] [address] [place], [place], [id number] Anion gap in Serum or Plasma Ordered By: Lenin Hidalgo on 10-02-2024 Anion gap [Moles/Vol] 14 mmol/L 5-15 [facility] BUN/creatinine ratioOrdered By: Lenin Hidalgo on 10-02-2024 Urea nitrogen/Creatinine [Mass ratio] 15.9 mg/mg 10-20 [facility] Bilirubin, totalOrdered By: Lenin Hidalgo on 10-02-2024 Bilirubin [Mass/Vol] 0.24 mg/dL 0.00-1.30 [facility] Carbon dioxide, total [Moles /volume] in Central venous bloodOrdered By: Lenin Hidalgo on 10-02-2024 CO2 [Moles/Vol] 22.8 mmol/L 21.0-32.0 [facility] Chloride assayOrdered By: Curtis Hidalgo on 10-02-2024 Chloride [Moles/Vol] 98 mmol/L 98-108 [facility] Comprehensive Metabolic Prof ilon 10-02-2024 Albumin [Mass/Vol] 4.1 g/dL Normal 3.4-4.8 [facility] Comment on above: Performed By: #### L 500.4050, L501.2450, L501.5200, L506.1001 #### [facility] [address] [place], [address] Albumin/Globulin [Mass ratio] 1.4 {ratio} Normal 0.9-2.4 [facility] Comment on above: Performed By: #### L 500.4050, L501.2450, L501.5200, L506.1001 #### [facility] [address] [place], [address] ALK PHOS 46 U/L Normal 40-129 [facility] Comment on above: Performed By: #### L 500.4050, L501.2450, L501.5200, L506.1001 #### [facility] [address] [place], [address] ALT [Catalytic activity/Vol] 17 U/L Normal <=46 [facility] Comment on above: Performed By: #### L 500.4050, L501.2450, L501.5200, L506.1001 #### [facility] [address] [place], [address] AST [Catalytic activity/Vol] 18 U/L Normal <=37 [facility] Comment on above: Performed By: #### L 500.4050, L501.2450, L501.5200, L506.1001 #### [facility] [address] [place], [address] Bilirubin [Mass/Vol] 0.24 mg/dL Normal 0.00-1.30 [facility] Comment on above: Performed By: #### L 500.4050, L501.2450, L501.5200, L506.1001 #### [facility] [address] [place], [address] BUN/CRE 15.9 RATIO Normal 10-20 [facility] Comment on above: Performed By: #### L 500.4050, L501.2450, L501.5200, L506.1001 #### [facility] [address] [place], [address] Calcium [Mass/Vol] 9.4 mg/dL Normal 7.6-11.0 [facility] Comment on above: Performed By: #### L 500.4050, L501.2450, L501.5200, L506.1001 #### [facility] [address] [place], [address] Chloride [Moles/Vol] 98 mmol/L Normal 98-108 [facility] Comment on above: Performed By: #### L 500.4050, L501.2450, L501.5200, L506.1001 #### [facility] [address] [place], [address] CO2 [Moles/Vol] 22.8 mmol/L Normal 21.0-32.0 [facility] Comment on above: Performed By: #### L 500.4050, L501.2450, L501.5200, L506.1001 #### [facility] [address] [place], [address] Creatinine [Mass/Vol] 1.38 mg/dL High 0.70-1.20 [facility] Comment on above: Performed By: #### L 500.4050, L501.2450, L501.5200, L506.1001 #### [facility] [address] [place], [address] GAP 14 Normal 5-15 [facility] Comment on above: Performed By: #### L 500.4050, L501.2450, L501.5200, L506.1001 #### [facility] [address] [place], [address] GFR/1.73 sq M.predicted among non-blacks MDRD (S/P/Bld) [Vol rate/Area] 54 mL/min/{1.73_m2} Low >60 [facility] Comment on above: Result Comment: mL/m in/1.73m2 CKD-EPI Creatinine Equation (2020) Performed By: #### L 500.4050, L501.2450, L501.5200, L506.1001 #### [facility] [address] [place], [address] Globulin (S) [Mass/Vol] 2.9 g/dL Normal 2.2-4.2 [facility] Comment on above: Performed By: #### L 500.4050, L501.2450, L501.5200, L506.1001 #### [facility] [address] [place], [address] Glucose [Mass/Vol] 185 mg/dL High 70-99 [facility] Comment on above: Performed By: #### L 500.4050, L501.2450, L501.5200, L506.1001 #### [facility] [address] [place], [address] Potassium [Moles/Vol] 4.0 mmol/L Normal 3.3-5.1 [facility] Comment on above: Performed By: #### L 500.4050, L501.2450, L501.5200, L506.1001 #### [facility] [address] [place], [address] Sodium [Moles/Vol] 134 mmol/L Normal 133-145 [facility] Comment on above: Performed By: #### L 500.4050, L501.2450, L501.5200, L506.1001 #### [facility] [address] [place], [address] T PROT 7.0 g/dL Normal 5.9-8.4 [facility] Comment on above: Performed By: #### L 500.4050, L501.2450, L501.5200, L506.1001 #### [facility] [address] [place], [address] Urea nitrogen [Mass/Vol] 22 mg/dL High 4-19 [facility] Comment on above: Performed By: #### L 500.4050, L501.2450, L501.5200, L506.1001 #### [facility] [address] [place], [address] GFR/1.73 sq M.predicted paul g non-blacks MDRD (S/P/Bld) [Vol rate/Area]Ordered By: Lenin Hidalgo on 10-02-2024 Estimated GFR (MDRD) Non-Af Amer 54 Low >60 [facility] Comment on above: mL/min/1.73m2 CKD-EP I Creatinine Equation (2020) Glomerular filtration rate ( GFR) estimation/1.73 sq m using serum, plasma, or whole bOrdered By: Lenin Hidalgo on 10-02-2024 GFR/1.73 sq M.predicted among non-blacks MDRD (S/P/Bld) [Vol rate/Area] 54 mL/min/{1.73_m2} Low >60 [facility] Comment on above: mL/min/1.73m2 CKD-EP I Creatinine Equation (2020) Laboratory - Chemistry and C hemistry - challengeOrdered By: Lenin Hidalgo on 10-02-2024 AST [Catalytic activity/Vol] 18 U/L <38 [facility] Lipaseon 10-02-2024 Lipase [Catalytic activity/Vol] 18 U/L Normal 13-75 [facility] Comment on above: Result Comment: To tesfaye note: LIPASE revised reference range effective 22. New Lipase methodology. Expected to produce lower values than the previous assay method. NEW Reference Range: 13 - 75 U/L Performed By: #### L 500.4050, L501.2450, L501.5200, L506.1001 #### [facility] [address] [place], [address] Lipase measurementOrdered By : Lenin Hidalgo on 10-02-2024 Lipase [Catalytic activity/Vol] 18 U/L 13-75 [facility] Comment on above: Please note:LIPASE r evised reference range effective 22. New Lipase methodology. Expected to produce lower values than the previous assay method. NEW Reference Range: 13 - 75 U/L Magnesiumon 10-02-2024 Magnesium [Mass/Vol] 1.6 mg/dL Normal 1.5-2.2 [facility] Comment on above: Performed By: #### L 500.4050, L501.2450, L501.5200, L506.1001 #### [facility] [address] [place], [address] Magnesium (Unsp spec) [Mass/ Vol]Ordered By: Lenin Hidalgo on 10-02-2024 Magnesium [Mass/Vol] 1.6 mg/dL 1.5-2.2 [facility] Magnesium measurement (mass/ volume)Ordered By: Lenin Hidalgo on 10-02-2024 Magnesium (Unsp spec) [Mass/Vol] 1.6 mg/dL 1.5-2.2 [facility] MeV IgG IA Qn (S)Ordered By: Lenin Hidalgo on 10-02-2024 Rubeola (Measles) IgG Antibody > 300.0 AU/mL Immune >16.4 [facility] Comment on above: Negative <13.5 Equiv ocal 13.5 - 16.4 Positive >16.4Presence of antibodies to Rubeola is presumptive evidenceof immunity except when acute infection is suspected.Performed at: [facility] [id number] Director: Bonifacio De Jesus PhD, Phone: [phone] Potassium (Unsp spec) [Mass/ Vol]Ordered By: Lenin Hidalgo on 10-02-2024 Potassium [Moles/Vol] 4.0 mmol/L 3.3-5.1 [facility] Potassium measurement (mass/ volume)Ordered By: Lenin Hidalgo on 10-02-2024 Potassium (Unsp spec) [Mass/Vol] 4.0 mmol/L 3.3-5.1 [facility] Serum creatinine measurement (mass/volume)Ordered By: Lenin Hidalgo on 10-02-2024 Creatinine [Mass/Vol] 1.38 mg/dL High 0.70-1.20 [facility] Serum globulin measurementOr dered By: Lenin Hidalgo on 10-02-2024 Globulin (S) [Mass/Vol] 2.9 g/dL 2.2-4.2 [facility] Serum glucose measurement (m ass/volume)Ordered By: Lenin Hidalgo on 10-02-2024 Glucose [Mass/Vol] 185 mg/dL High 70-99 [facility] Serum measles virus IgG anti body assay by immunoassay (units/volume)Ordered By: Lenin Hidalgo on 10-02-2024 MeV IgG IA Qn (S) > 300.0 AU/mL Immune >16.4 [facility] Comment on above: Negative <13.5 Equiv ocal 13.5 - 16.4 Positive >16.4Presence of antibodies to Rubeola is presumptive evidenceof immunity except when acute infection is suspected.Performed at: [employer] [id number] Director: Bonifacio De Jesus PhD, Phone: [phone] Serum or plasma alanine pringle otransferase (ALT) measurementOrdered By: Lenin Hidalgo on 10-02-2024 ALT [Catalytic activity/Vol] 17 U/L <47 [facility] Serum or plasma albumin kay urement (mass/volume)Ordered By: Lenin Hidalgo on 10-02-2024 Albumin [Mass/Vol] 4.1 g/dL 3.4-4.8 [facility] Serum or plasma albumin/glob ulin mass ratioOrdered By: Lenin Hidalgo on 10-02-2024 Albumin/Globulin [Mass ratio] 1.4 {ratio} 0.9-2.4 [facility] Serum or plasma alkaline ranjana sphatase measurementOrdered By: Lenin Hidalgo on 10-02-2024 ALP [Catalytic activity/Vol] 46 U/L 40-129 [facility] Serum or plasma calcium kay urement (mass/volume)Ordered By: Lenin Hidalgo on 10-02-2024 Calcium [Mass/Vol] 9.4 mg/dL 7.6-11.0 [facility] Serum or plasma urea nitroge n measurement (mass/volume)Ordered By: Lenin Hidalgo on 10-02-2024 Urea nitrogen [Mass/Vol] 22 mg/dL High 4-19 [facility] Sodium levelOrdered By: Lenin Hidalgo on 10-02-2024 Sodium [Moles/Vol] 134 mmol/L 133-145 [facility] Total proteinOrdered By: Selma Hidalgo on 10-02-2024 Protein [Mass/Vol] 7.0 g/dL 5.9-8.4 [facility] [place] Vitamin D, 25-hydroxyOrdered By: Lenin Hidalgo on 10-02-2024 Vitamin D 25-Hydroxy 54.1 ng/mL 30-100 [facility] Comment on above: Vitamin D StatusDefi ciency: <20 ng/mL (50nmol/L)Insufficiency: 20-30 ng/mL (50-75 nmol/L)Sufficiency: 30-100 ng/mL (75-250 nmol/L)Toxicity: >100 ng/mL (>250 nmol/L) L7000.0750on 09-27-2024 P ELASTASE,FECA 49 Low >200 [facility] Comment on above: Result Comment: Resu lt Units: ug Elast./g Severe Pancreatic Insufficiency: <100 Moderate Pancreatic Insufficiency: 100 - 200 Normal: >200 Performed at: [facility] [address] [id number] Wheel [employer] C[employer] Repairer: Eduard Linares MD, Phone: [phone] Performed By: #### L 500.4050, L501.2450, L501.5200, L506.1001 #### [facility] [address] [place], [place], [address] Anion gap in Serum or Plasma Ordered By: Lenin Hidalgo on 09-25-2024 Anion gap [Moles/Vol] 13 mmol/L 5-15 [facility] BUN/creatinine ratioOrdered By: Lenin Hidalgo on 09-25-2024 Urea nitrogen/Creatinine [Mass ratio] 14.2 mg/mg 10-20 [facility] Bilirubin, totalOrdered By: Lenin Hidalgo on 09-25-2024 Bilirubin [Mass/Vol] 0.39 mg/dL 0.00-1.30 [facility] Carbon dioxide, total [Moles /volume] in Central venous bloodOrdered By: Lenin Hidalgo on 09-25-2024 CO2 [Moles/Vol] 24.0 mmol/L 21.0-32.0 [facility] Chloride assayOrdered By: Curtis Hidalgo on 09-25-2024 Chloride [Moles/Vol] 93 mmol/L Low 98-108 [facility] Comprehensive Metabolic Prof ilon 09-25-2024 Albumin [Mass/Vol] 4.5 g/dL Normal 3.4-4.8 [facility] Comment on above: Order Comment: Order Date: 09/25/24 Order Info: [id number] - CMP Order Info: 3040-3 - LIPASE Order Info: [id number] - MG Performed By: #### L 501.2450, L500.4050, L501.5200 #### [facility] [address] [place], [place], [id number] Albumin/Globulin [Mass ratio] 1.4 {ratio} Normal 0.9-2.4 [facility] Comment on above: Order Comment: Order Date: 09/25/24 Order Info: [id number] - CMP Order Info: 3040-3 - LIPASE Order Info: [id number] - MG Performed By: #### L 501.2450, L500.4050, L501.5200 #### [facility] [address] [place], [address] ALK PHOS 57 U/L Normal 40-129 [facility] Comment on above: Order Comment: Order Date: 09/25/24 Order Info: [id number] - CMP Order Info: 3040-3 - LIPASE Order Info: [id number] - MG Performed By: #### L 501.2450, L500.4050, L501.5200 #### [facility] [address] [place], [address] ALT [Catalytic activity/Vol] 17 U/L Normal <=46 [facility] Comment on above: Order Comment: Order Date: 09/25/24 Order Info: [id number] - CMP Order Info: 3040-3 - LIPASE Order Info: [id number] - MG Performed By: #### L 501.2450, L500.4050, L501.5200 #### [facility] [address] [place], [place], [id number] AST [Catalytic activity/Vol] 18 U/L Normal <=37 [facility] Comment on above: Order Comment: Order Date: 09/25/24 Order Info: [id number] - CMP Order Info: 3040-3 - LIPASE Order Info: [id number] - MG Performed By: #### L 501.2450, L500.4050, L501.5200 #### [facility] [address] [place], [place], [address] Bilirubin [Mass/Vol] 0.39 mg/dL Normal 0.00-1.30 [facility] Comment on above: Order Comment: Order Date: 09/25/24 Order Info: [id number] - CMP Order Info: 3040-3 - LIPASE Order Info: [id number] - MG Performed By: #### L 501.2450, L500.4050, L501.5200 #### [facility] [address] [place], [place], [id number] BUN/CRE 14.2 RATIO Normal 10-20 [facility] Comment on above: Order Comment: Order Date: 09/25/24 Order Info: [id number] - CMP Order Info: 3040-3 - LIPASE Order Info: [id number] - MG Performed By: #### L 501.2450, L500.4050, L501.5200 #### [facility] [address] [place], [place], [id number] Calcium [Mass/Vol] 10.0 mg/dL Normal 7.6-11.0 [facility] Comment on above: Order Comment: Order Date: 09/25/24 Order Info: [id number] - CMP Order Info: 3040-3 - LIPASE Order Info: [id number] - MG Performed By: #### L 501.2450, L500.4050, L501.5200 #### [facility] [address] [place], [address] Chloride [Moles/Vol] 93 mmol/L Low 98-108 [facility] Comment on above: Order Comment: Order Date: 09/25/24 Order Info: [id number] - CMP Order Info: 3040-3 - LIPASE Order Info: [id number] - MG Performed By: #### L 501.2450, L500.4050, L501.5200 #### [facility] [address] [place], [address] CO2 [Moles/Vol] 24.0 mmol/L Normal 21.0-32.0 [facility] Comment on above: Order Comment: Order Date: 09/25/24 Order Info: [id number] - CMP Order Info: 3040-3 - LIPASE Order Info: [id number] - MG Performed By: #### L 501.2450, L500.4050, L501.5200 #### [facility] [address] [place], [address] Creatinine [Mass/Vol] 1.49 mg/dL High 0.70-1.20 [facility] Comment on above: Order Comment: Order Date: 09/25/24 Order Info: [id number] - CMP Order Info: 3040-3 - LIPASE Order Info: [id number] - MG Performed By: #### L 501.2450, L500.4050, L501.5200 #### [facility] [address] [place], [address] GAP 13 Normal 5-15 [facility] Comment on above: Order Comment: Order Date: 09/25/24 Order Info: [id number] - CMP Order Info: 3040-3 - LIPASE Order Info: [id number] - MG Performed By: #### L 501.2450, L500.4050, L501.5200 #### [facility] [address] [place], [address] GFR/1.73 sq M.predicted among non-blacks MDRD (S/P/Bld) [Vol rate/Area] 49 mL/min/{1.73_m2} Low >60 [facility] Comment on above: Order Comment: Order Date: 09/25/24 Order Info: [id number] - CMP Order Info: 3040-3 - LIPASE Order Info: [id number] - MG Result Comment: mL/m in/1.73m2 CKD-EPI Creatinine Equation (2020) Performed By: #### L 501.2450, L500.4050, L501.5200 #### [facility] [address] [place], [address] Globulin (S) [Mass/Vol] 3.3 g/dL Normal 2.2-4.2 [facility] Comment on above: Order Comment: Order Date: 09/25/24 Order Info: [id number] - CMP Order Info: 3040-3 - LIPASE Order Info: [id number] - MG Performed By: #### L 501.2450, L500.4050, L501.5200 #### [facility] [address] [place], [address] Glucose [Mass/Vol] 110 mg/dL High 70-99 [facility] Comment on above: Order Comment: Order Date: 09/25/24 Order Info: [id number] - CMP Order Info: 3040-3 - LIPASE Order Info: [id number] - MG Performed By: #### L 501.2450, L500.4050, L501.5200 #### [facility] [address] [place], [address] Potassium [Moles/Vol] 5.1 mmol/L Normal 3.3-5.1 [facility] Comment on above: Order Comment: Order Date: 09/25/24 Order Info: [id number] - CMP Order Info: 3040-3 - LIPASE Order Info: [id number] - MG Performed By: #### L 501.2450, L500.4050, L501.5200 #### [facility] [address] [place], [address] Sodium [Moles/Vol] 130 mmol/L Low 133-145 [facility] Comment on above: Order Comment: Order Date: 09/25/24 Order Info: [id number] - CMP Order Info: 3040-3 - LIPASE Order Info: [id number] - MG Performed By: #### L 501.2450, L500.4050, L501.5200 #### [facility] [address] [place], [address] T PROT 7.7 g/dL Normal 5.9-8.4 [facility] Comment on above: Order Comment: Order Date: 09/25/24 Order Info: [id number] - CMP Order Info: 3040-3 - LIPASE Order Info: [id number] - MG Performed By: #### L 501.2450, L500.4050, L501.5200 #### [facility] [address] [place], [address] Urea nitrogen [Mass/Vol] 21 mg/dL High 4-19 [facility] Comment on above: Order Comment: Order Date: 09/25/24 Order Info: [id number] - CMP Order Info: 3040-3 - LIPASE Order Info: [id number] - MG Performed By: #### L 501.2450, L500.4050, L501.5200 #### [facility] [address] [place], [address] Elastase.pancreatic (Stl) [M ass/Mass]Ordered By: Lenin Hidalgo on 09-25-2024 Stool Pancreatic Elastase 49 Low >200 [facility] Comment on above: Result Units: ug Angy st./g Severe Pancreatic Insufficiency: <100 Moderate Pancreatic Insufficiency: 100 - 200 Normal: >200Performed at: - [facility] [address] [id number] Director: Eduard Linares MD, Phone: [phone] GFR/1.73 sq M.predicted paul g non-blacks MDRD (S/P/Bld) [Vol rate/Area]Ordered By: Lenin Hidalgo on 09-25-2024 Estimated GFR (MDRD) Non-Af Amer 49 Low >60 [facility] Comment on above: mL/min/1.73m2 CKD-EP I Creatinine Equation (2020) Glomerular filtration rate ( GFR) estimation/1.73 sq m using serum, plasma, or whole bOrdered By: Lenin Hidalgo on 09-25-2024 GFR/1.73 sq M.predicted among non-blacks MDRD (S/P/Bld) [Vol rate/Area] 49 mL/min/{1.73_m2} Low >60 [facility] Comment on above: mL/min/1.73m2 CKD-EP I Creatinine Equation (2020) Laboratory - Chemistry and C hemistry - challengeOrdered By: Lenin Hidalgo on 09-25-2024 AST [Catalytic activity/Vol] 18 U/L <38 [facility] Lipaseon 09-25-2024 Lipase [Catalytic activity/Vol] 23 U/L Normal 13-75 [facility] Comment on above: Order Comment: Order Date: 09/25/24 Order Info: [id number] - CMP Order Info: 3040-3 - LIPASE Order Info: [id number] - MG Result Comment: To tesfaye note: LIPASE revised reference range effective 22. New Lipase methodology. Expected to produce lower values than the previous assay method. NEW Reference Range: 13 - 75 U/L Performed By: #### L 501.2450, L500.4050, L501.5200 #### [facility] [place], [place], [id number] Lipase measurementOrdered By : Lenin Hidalgo on 09-25-2024 Lipase [Catalytic activity/Vol] 23 U/L 13-75 [facility] Comment on above: Please note:LIPASE r evised reference range effective 22. New Lipase methodology. Expected to produce lower values than the previous assay method. NEW Reference Range: 13 - 75 U/L Magnesiumon 09-25-2024 Magnesium [Mass/Vol] 2.0 mg/dL Normal 1.5-2.2 [facility] Comment on above: Order Comment: Order Date: 09/25/24 Order Info: [id number] - CMP Order Info: 3040-3 - LIPASE Order Info: [id number] - MG Performed By: #### L 501.2450, L500.4050, L501.5200 #### [facility] [address] [place], [place], [id number] Magnesium (Unsp spec) [Mass/ Vol]Ordered By: Lenin Hidalgo on 09-25-2024 Magnesium [Mass/Vol] 2.0 mg/dL 1.5-2.2 [facility] Magnesium measurement (mass/ volume)Ordered By: Lenin Hidalgo on 09-25-2024 Magnesium (Unsp spec) [Mass/Vol] 2.0 mg/dL 1.5-2.2 [facility] Potassium (Unsp spec) [Mass/ Vol]Ordered By: Lenin Hidalgo on 09-25-2024 Potassium [Moles/Vol] 5.1 mmol/L 3.3-5.1 [facility] Potassium measurement (mass/ volume)Ordered By: Lenin Hidalgo on 09-25-2024 Potassium (Unsp spec) [Mass/Vol] 5.1 mmol/L 3.3-5.1 [facility] Serum creatinine measurement (mass/volume)Ordered By: Lenin Hidalgo on 09-25-2024 Creatinine [Mass/Vol] 1.49 mg/dL High 0.70-1.20 [facility] Serum globulin measurementOr dered By: Lenin Hidalgo on 09-25-2024 Globulin (S) [Mass/Vol] 3.3 g/dL 2.2-4.2 [facility] Serum glucose measurement (m ass/volume)Ordered By: Lenin Hidalgo on 09-25-2024 Glucose [Mass/Vol] 110 mg/dL High 70-99 [facility] Serum or plasma alanine pringle otransferase (ALT) measurementOrdered By: Lenin Hidalgo on 09-25-2024 ALT [Catalytic activity/Vol] 17 U/L <47 [facility] Serum or plasma albumin kay urement (mass/volume)Ordered By: Lenin Hidalgo on 09-25-2024 Albumin [Mass/Vol] 4.5 g/dL 3.4-4.8 [facility] Serum or plasma albumin/glob ulin mass ratioOrdered By: Lenin Hidalgo on 09-25-2024 Albumin/Globulin [Mass ratio] 1.4 {ratio} 0.9-2.4 [facility] Serum or plasma alkaline ranjana sphatase measurementOrdered By: Lenin Hidalgo on 09-25-2024 ALP [Catalytic activity/Vol] 57 U/L 40-129 [facility] Serum or plasma calcium kay urement (mass/volume)Ordered By: Lenin Hidalgo on 09-25-2024 Calcium [Mass/Vol] 10.0 mg/dL 7.6-11.0 [facility] Serum or plasma urea nitroge n measurement (mass/volume)Ordered By: Lenin Hidalgo on 09-25-2024 Urea nitrogen [Mass/Vol] 21 mg/dL High 4-19 [facility] Sodium levelOrdered By: Lenin Hidalgo on 09-25-2024 Sodium [Moles/Vol] 130 mmol/L Low 133-145 [facility] Stool pancreatic elastase me asurement (mass/mass)Ordered By: Lenin Hidalgo on 09-25-2024 Elastase.pancreatic (Stl) [Mass/Mass] 49 Low >200 [facility] Comment on above: Result Units: ug Angy st./g Severe Pancreatic Insufficiency: <100 Moderate Pancreatic Insufficiency: 100 - 200 Normal: >200Performed at: - [facility] [address] [id number] Director: Eduard Linares MD, Phone: [phone] Total proteinOrdered By: Selma Hidalgo on 09-25-2024 Protein [Mass/Vol] 7.7 g/dL 5.9-8.4 [facility] L3410.9998on 09-24-2024 [facility] Misc. COMMENT Normal . [facility] Comment on above: Order Comment: Inter face Comments: standing order Order Date: 03/28/24 Order Info: [id number] - BMP Annual exam Order Date: 04/11/24 Order Info: [id number] - LIPID Comments: annual annual Result Comment: Test Ordered: [id number] Stool Culture Salmonella/Shigella Screen Note: CB Final report Reference Range: . Result 1 Comment CB Reference Range: . No Salmonella or Shigella recovered. Campylobacter Culture Note: CB Final report Reference Range: . Result 1 Comment CB Reference Range: . No Campylobacter species isolated. E coli Shiga Toxin EIA Negative Reference Range: Negative Performed at: - [facility] [id number] [employer] Repairer: Bonifacio De Jesus PhD, Phone: [phone] Performed By: #### L 500.2500 #### [facility] [address] [facility] [place], [place], [id number] Absolute neutrophil countOrd ered By: Red Garcia on 09-19-2024 Neutrophils (Bld) [#/Vol] 5.4 10*3/uL 2.0-7.7 [facility] Anion gap in Serum or Plasma Ordered By: Red Garcia on 09-19-2024 Anion gap [Moles/Vol] 11 mmol/L 5- [facility] BUN/creatinine ratioOrdered By: Red Garcia on 09-19-2024 Urea nitrogen/Creatinine [Mass ratio] 15.7 mg/mg 10-20 [facility] Basophil percentageOrdered B y: Red Garcia on 09-19-2024 Basophils/100 WBC (Bld) 0.5 % 0-1 [facility] Bilirubin, totalOrdered By: Red Garcia on 09-19-2024 Bilirubin [Mass/Vol] 0.46 mg/dL 0.00-1.30 [facility] C. difficile DNA ZAMZAM+probe Q l (Unsp spec)Ordered By: Red Garcia on 09-19-2024 Clostridioides difficile (PCR) [facility] CBC W/Diff, Automatedon 08-27 Absolute Lymph 1.13 X10 3/uL Normal 0.83-4.51 [facility] Comment on above: Performed By: #### L 500.2500 #### [facility] [address] [place], [address] Absolute Neut 5.4 X10 3/uL Normal 2.0-7.7 [facility] Comment on above: Performed By: #### L 500.2500 #### [facility] [address] [place], [address] Basophils/100 WBC (Bld) 0.5 % Normal 0-1 [facility] Comment on above: Performed By: #### L 500.2500 #### [facility] [address] [place], [address] Eosinophils/100 WBC (Bld) 1.8 % Normal 0-5 [facility] Comment on above: Performed By: #### L 500.2500 #### [facility] [address] [place], [address] Erythrocyte distribution width (RBC) [Ratio] 12.4 % Normal 11.6-14.6 [facility] Comment on above: Performed By: #### L 500.2500 #### [facility] [address] [place], [address] Hematocrit (Bld) [Volume fraction] 40.8 % Normal 40-54 [facility] Comment on above: Performed By: #### L 500.2500 #### [facility] [address] [place], [address] Hemoglobin (Bld) [Mass/Vol] 13.7 g/dL Normal 13.0-16.5 [facility] Comment on above: Performed By: #### L 500.2500 #### [facility] [address] [place], [address] IG% 0.400 Normal 0.0-0.9 [facility] Comment on above: Result Comment: IG% - Immature Granulocytes (promyelocytes, myelocytes and metamyelocytes) > 1% indicates that a LEFT SHIFT is Present. Performed By: #### L 500.2500 #### [facility] [address] [place], [address] Lymphocytes/100 WBC (Bld) 15.4 % Low 19-41 [facility] Comment on above: Performed By: #### L 500.2500 #### [facility] [address] [place], [address] MCH (RBC) [Entitic mass] 32.3 pg High 27.0-32.0 [facility] Comment on above: Performed By: #### L 500.2500 #### [facility] [address] [place], [address] MCHC (RBC) [Mass/Vol] 33.6 g/dL Normal 32-36 [facility] Comment on above: Performed By: #### L 500.2500 #### [facility] [address] [place], [address] MCV (RBC) [Entitic vol] 96.2 fL High 80-94 [facility] Comment on above: Performed By: #### L 500.2500 #### [facility] [address] [place], [address] Monocytes/100 WBC (Bld) 7.9 % Normal 0-10 [facility] Comment on above: Performed By: #### L 500.2500 #### [facility] [place], [address] Neutrophils/100 WBC (Bld) 74.0 % High 47-70 [facility] Comment on above: Performed By: #### L 500.2500 #### [facility] [address] [place], [address] Nucleated RBC (Bld) [#/Vol] 0 10*3/uL Normal 0-5 [facility] Comment on above: Performed By: #### L 500.2500 #### [facility] [address] [place], [address] Platelet mean volume (Bld) [Entitic vol] 8.5 fL Normal 6.2-12.0 [facility] Comment on above: Performed By: #### L 500.2500 #### [facility] [address] [place], [address] Platelets (Bld) [#/Vol] 343 10*3/uL Normal 150-450 [facility] Comment on above: Performed By: #### L 500.2500 #### [facility] [address] [place], [address] RBC (Bld) [#/Vol] 4.24 10*6/uL Low 4.6-6.2 [facility] Comment on above: Performed By: #### L 500.2500 #### [facility] [address] [place], [address] RDW SD 43.8 fl Normal 35.1-43.9 [facility] Comment on above: Performed By: #### L 500.2500 #### [facility] [address] [place], [address] WBC (Bld) [#/Vol] 7.3 10*3/uL Normal 4.4-11.0 [facility] Comment on above: Performed By: #### L 500.2500 #### [facility] [address] [place], [address] CDIFF (PCR)on 09-19-2024 CDIFF Pending [phone] NAP1-B1 Presumptive Negative *for epidemiolologic???use C. Diff PCR Negative- No toxigenic C. Diff Detected Normal [facility] Comment on above: Performed By: #### L 500.2500 #### [facility] [address] [place], [address] Carbon dioxide, total [Moles /volume] in Central venous bloodOrdered By: Red Garcia on 09-19-2024 CO2 [Moles/Vol] 24.3 mmol/L 21.0-32.0 [facility] Chloride assayOrdered By: Era Garcia on 09-19-2024 Chloride [Moles/Vol] 95 mmol/L Low 98-108 [facility] Comprehensive Metabolic Prof ilon 09-19-2024 Albumin [Mass/Vol] 4.4 g/dL Normal 3.4-4.8 [facility] Comment on above: Performed By: #### L 500.2500 #### [facility] [address] [place], [address] Albumin/Globulin [Mass ratio] 1.4 {ratio} Normal 0.9-2.4 [facility] Comment on above: Performed By: #### L 500.2500 #### [facility] [address] [place], [address] ALK PHOS 56 U/L Normal 40-129 [facility] Comment on above: Performed By: #### L 500.2500 #### [facility] [address] [place], [address] ALT [Catalytic activity/Vol] 19 U/L Normal <=46 [facility] Comment on above: Performed By: #### L 500.2500 #### [facility] [address] [place], [address] AST [Catalytic activity/Vol] 20 U/L Normal <=37 [facility] Comment on above: Performed By: #### L 500.2500 #### [facility] [address] [place], [address] Bilirubin [Mass/Vol] 0.46 mg/dL Normal 0.00-1.30 [facility] [facility] Comment on above: Performed By: #### L 500.2500 #### [facility] [address] [place], [address] BUN/CRE 15.7 RATIO Normal 10-20 [facility] Comment on above: Performed By: #### L 500.2500 #### [facility] [address] [place], [address] Calcium [Mass/Vol] 10.0 mg/dL Normal 7.6-11.0 [facility] Comment on above: Performed By: #### L 500.2500 #### [facility] [address] [place], [address] Chloride [Moles/Vol] 95 mmol/L Low 98-108 [facility] Comment on above: Performed By: #### L 500.2500 #### [facility] [address] [place], [address] CO2 [Moles/Vol] 24.3 mmol/L Normal 21.0-32.0 [facility] Comment on above: Performed By: #### L 500.2500 #### [facility] [address] [place], [address] Creatinine [Mass/Vol] 1.22 mg/dL High 0.70-1.20 [facility] Comment on above: Performed By: #### L 500.2500 #### [facility] [address] [place], [address] GAP 11 Normal 5-15 [facility] Comment on above: Performed By: #### L 500.2500 #### [facility] [address] [place], [address] GFR/1.73 sq M.predicted among non-blacks MDRD (S/P/Bld) [Vol rate/Area] 63 mL/min/{1.73_m2} Normal >60 [facility] Comment on above: Result Comment: mL/m in/1.73m2 CKD-EPI Creatinine Equation (2020) Performed By: #### L 500.2500 #### [facility] [address] [place], [address] Globulin (S) [Mass/Vol] 3.2 g/dL Normal 2.2-4.2 [facility] Comment on above: Performed By: #### L [id number] #### [facility] [address] [place], [address] Glucose [Mass/Vol] 127 mg/dL High 70-99 [facility] Comment on above: Performed By: #### L 500.2500 #### [facility] [address] [place], [address] Potassium [Moles/Vol] 4.7 mmol/L Normal 3.3-5.1 [facility] Comment on above: Performed By: #### L 500.2500 #### [facility] [address] [place], [address] Sodium [Moles/Vol] 131 mmol/L Low 133-145 [facility] Comment on above: Performed By: #### L 500.2500 #### [facility] [address] [place], [address] T PROT 7.6 g/dL Normal 5.9-8.4 [facility] Comment on above: Performed By: #### L 500.2500 #### [facility] [address] [place], [address] Urea nitrogen [Mass/Vol] 19 mg/dL Normal 4-19 [facility] Comment on above: Performed By: #### L 500.2500 #### [facility] [address] [place], [address] Eosinophil percentageOrdered By: Red Garcia on 09-19-2024 Eosinophils/100 WBC (Bld) 1.8 % 0-5 [facility] Erythrocyte distribution wid th ratioOrdered By: Red Garcia on 09-19-2024 Erythrocyte distribution width (RBC) [Ratio] 12.4 % 11.6-14.6 [facility] Erythrocyte distribution wid th standard deviationOrdered By: Red Garcia on 09-19-2024 Erythrocyte distribution width (RBC) [Entitic vol] 43.8 fL 35.1-43.9 [facility] GFR/1.73 sq M.predicted paul g non-blacks MDRD (S/P/Bld) [Vol rate/Area]Ordered By: Red Garcia on 09-19-2024 Estimated GFR (MDRD) Non-Af Amer 63 >60 [facility] Comment on above: mL/min/1.73m2 CKD-EP I Creatinine Equation (2020) Hematocrit Auto (Bld) [Volum e fraction]Ordered By: Red Garcia on 09-19-2024 Hematocrit (Bld) [Volume fraction] 40.8 % 40-54 [facility] Hemoglobin measurementOrdere d By: Red Garcia on 09-19-2024 Hemoglobin (Bld) [Mass/Vol] 13.7 g/dL 13.0-16.5 [facility] Immature granulocytes/100 WB C Auto (Bld)Ordered By: Red Garcia on 09-19-2024 Immature granulocytes/100 WBC (Bld) 0.400 % 0.0-0.9 [facility] Comment on above: IG% - Immature Granu locytes (promyelocytes, myelocytes and metamyelocytes) > 1% indicates that a LEFT SHIFT is Present. Laboratory - Chemistry and C hemistry - challengeOrdered By: Red Garcia on 09-19-2024 AST [Catalytic activity/Vol] 20 U/L <38 [facility] Lymphocytes Auto (Unsp spec) [#/Vol]Ordered By: Red Garcia on 09-19-2024 Lymphocytes (Bld) [#/Vol] 1.13 10*3/uL 0.83-4.51 [facility] Lymphocytes/100 WBC Auto (Un sp spec)Ordered By: Red Garcia on 09-19-2024 Lymphocytes/100 WBC (Bld) 15.4 % Low 19-41 [facility] MCV (mean corpuscular volume ) determinationOrdered By: Red Garcia on 09-19-2024 MCV (RBC) [Entitic vol] 96.2 fL High 80-94 [facility] Mean corpuscular hemoglobin (MCH) determinationOrdered By: Red Garcia on 09-19-2024 MCH (RBC) [Entitic mass] 32.3 pg High 27.0-32.0 [facility] Mean corpuscular hemoglobin concentration (MCHC) determinationOrdered By: Red Garcia on 09-19-2024 MCHC (RBC) [Mass/Vol] 33.6 g/dL 32-36 [facility] Mean platelet volume determi nationOrdered By: Red Garcia on 09-19-2024 Platelet mean volume (Bld) [Entitic vol] 8.5 fL 6.2-12.0 [facility] Monocyte percentageOrdered B y: Red Garcia on 09-19-2024 Monocytes/100 WBC (Bld) 7.9 % 0-10 [facility] Neutrophil percentageOrdered By: Red Garcia on 09-19-2024 Neutrophils/100 WBC (Bld) 74.0 % High 47-70 [facility] Nucleated red blood cell per centageOrdered By: Red Garcia on 09-19-2024 Nucleated RBC/100 WBC (Bld) [Ratio] 0 % 0-5 [facility] Platelet countOrdered By: Era Garcia on 09-19-2024 Platelets (Bld) [#/Vol] 343 10*3/uL 150-450 [facility] Potassium (Unsp spec) [Mass/ Vol]Ordered By: Red Garcia on 09-19-2024 Potassium [Moles/Vol] 4.7 mmol/L 3.3-5.1 [facility] RBC Auto (Bld) [#/Vol]Ordere d By: Red Garcia on 09-19-2024 RBC (Bld) [#/Vol] 4.24 10*6/uL Low 4.6-6.2 [facility] Serum creatinine measurement (mass/volume)Ordered By: Red Garcia on 09-19-2024 Creatinine [Mass/Vol] 1.22 mg/dL High 0.70-1.20 [facility] Serum globulin measurementOr dered By: Red Garcia on 09-19-2024 Globulin (S) [Mass/Vol] 3.2 g/dL 2.2-4.2 [facility] Serum glucose measurement (m ass/volume)Ordered By: Red Garcia on 09-19-2024 Glucose [Mass/Vol] 127 mg/dL High 70-99 [facility] Serum or plasma alanine pringle otransferase (ALT) measurementOrdered By: Red Garcia on 09-19-2024 ALT [Catalytic activity/Vol] 19 U/L <47 [facility] Serum or plasma albumin kay urement (mass/volume)Ordered By: Red Garcia on 09-19-2024 Albumin [Mass/Vol] 4.4 g/dL 3.4-4.8 [facility] Serum or plasma albumin/glob ulin mass ratioOrdered By: Red Garcia on 09-19-2024 Albumin/Globulin [Mass ratio] 1.4 {ratio} 0.9-2.4 [facility] Serum or plasma alkaline ranjana sphatase measurementOrdered By: Red Garcia on 09-19-2024 ALP [Catalytic activity/Vol] 56 U/L 40-129 [facility] Serum or plasma calcium kay urement (mass/volume)Ordered By: Red Garcia on 09-19-2024 Calcium [Mass/Vol] 10.0 mg/dL 7.6-11.0 [facility] Serum or plasma urea nitroge n measurement (mass/volume)Ordered By: Red Garcia on 09-19-2024 Urea nitrogen [Mass/Vol] 19 mg/dL 4-19 [facility] Sodium levelOrdered By: Red Garcia on 09-19-2024 Sodium [Moles/Vol] 131 mmol/L Low 133-145 [facility] Total proteinOrdered By: Marilu Garcia on 09-19-2024 Protein [Mass/Vol] 7.6 g/dL 5.9-8.4 [facility] White blood cell (WBC) count Ordered By: Red Garcia on 09-19-2024 WBC (Bld) [#/Vol] 7.3 10*3/uL 4.4-11.0 [facility] CTA Chest W/WO Contraston CTA Chest W/WO Contrast [facility] Imaging Services [address] [place] [id number] CTA Chest W/WO Contrast MR#: [id number] Acct: [id number] Name: OSMAN PADGETT Rep #: [id number] : 1950 M 74 From: Fredrick Medina MD PCP: Dr. Lenin Hidalgo MD Status: REG CLI Study: CTA Chest W/WO Contrast Date of Exam: 07/28/24 Exam# [id number] Ordering Dr: Trenton Gerard MD PROCEDURE: CTA CHEST W/WO CONTRAST REASON FOR EXAM: Pain TECHNIQUE: CTA imaging of the chest with intravenous contrast. 3D reconstructions. CONTRAST: COMPARISON: None. FINDINGS: Hardware: None. Lymph nodes: No mediastinal hilar or axillary lymphadenopathy. Heart: Normal heart size. No pericardial effusion. Scattered coronary artery calcifications Thoracic Aorta: No thoracic aortic aneurysm or dissection. Pulmonary Vessels: No evidence of acute pulmonary emboli through the major subsegmental branches. Most Proximal Level of Embolus (if embolus present): N/A Lungs and Airways: The lungs are normally expanded and clear. Pleura: No pleural effusion. No pneumothorax. Bones: Bone windows are unremarkable. 3.3 cm gallstone partially visualized. CT/CTA Chest W/WO Contrast IMPRESSION: No acute thromboembolic disease. Cholelithiasis. One or more dose reduction techniques were used (e.g., Automated exposure control, adjustment of the mA and/or kV according to patient size, use of iterative reconstruction technique). [facility] CC: Dr. Trenton Gerard MD; Dr. Lenin Hidalgo MD Continuous Improvement Director: Signed Normal [facility] Absolute neutrophil countOrd ered By: Lenin Hidalgo on 07-17-2024 Neutrophils (Bld) [#/Vol] 4.5 10*3/uL 2.0-7.7 [facility] Albumin to globulin ratioOrd ered By: Lenin Hidalgo on 07-17-2024 Albumin/Globulin [Mass ratio] 1.0 {ratio} 0.9-2.4 [facility] Basophil percentageOrdered B y: Lenin Hidalgo on 07-17-2024 Basophils/100 WBC (Bld) 0.9 % 0-1 [facility] Bilirubin, totalOrdered By: Lenin Hidalgo on 07-17-2024 Bilirubin [Mass/Vol] 0.40 mg/dL 0.20-1.00 [facility] Comment on above: For patients on eltr ombopag therapy, use of Dimension [place] TBIL is not recommended. Blood urea nitrogen (BUN)/cr eatinine ratioOrdered By: Lenin Hidalgo on 07-17-2024 Urea nitrogen/Creatinine [Mass ratio] 16.7 mg/mg 10- [facility] CBC W/Diff, Automatedon 01-2 0-2024 Absolute Lymph 1.22 X10 3/uL Normal 0.83-4.51 [facility] Comment on above: Order Comment: Order Date: 04/14/24 Order Info: 666-06 - BMP Performed By: #### L 500.2500 #### [facility] [address] [place], [address] Absolute Neut 4.5 X10 3/uL Normal 2.0-7.7 [facility] Comment on above: Order Comment: Order Date: 04/14/24 Order Info: 666-06 - BMP Performed By: #### L 500.2500 #### [facility] [address] [place], [address] Basophils/100 WBC (Bld) 0.9 % Normal 0-1 [facility] Comment on above: Order Comment: Order Date: 04/14/24 Order Info: 666-06 - BMP Performed By: #### L 500.2500 #### [facility] [address] [place], [address] Eosinophils/100 WBC (Bld) 3.6 % Normal 0-5 [facility] Comment on above: Order Comment: Order Date: 04/14/24 Order Info: 666-06 - BMP Performed By: #### L 500.2500 #### [facility] [address] [place], [address] Erythrocyte distribution width (RBC) [Ratio] 12.2 % Normal 11.6-14.6 [facility] Comment on above: Order Comment: Order Date: 04/14/24 Order Info: 666-06 - BMP Performed By: #### L 500.2500 #### [facility] [address] [place], [address] Hematocrit (Bld) [Volume fraction] 36.0 % Low 40-54 [facility] Comment on above: Order Comment: Order Date: 04/14/24 Order Info: 666-06 - BMP Performed By: #### L 500.2500 #### [facility] [address] [place], [address] Hemoglobin (Bld) [Mass/Vol] 11.9 g/dL Low 13.0-16.5 [facility] Comment on above: Order Comment: Order Date: 04/14/24 Order Info: 666-06 - BMP Performed By: #### L 500.2500 #### [facility] [address] [place], [address] IG% 0.500 Normal 0.0-0.9 [facility] Comment on above: Order Comment: Order Date: 04/14/24 Order Info: 666-06 - BMP Result Comment: IG% - Immature Granulocytes (promyelocytes, myelocytes and metamyelocytes) > 1% indicates that a LEFT SHIFT is Present. Performed By: #### L 500.2500 #### [facility] [place], [address] Lymphocytes/100 WBC (Bld) 18.4 % Low 19-41 [facility] Comment on above: Order Comment: Order Date: 04/14/24 Order Info: 666-06 - BMP Performed By: #### L 500.2500 #### [facility] [address] [place], [address] MCH (RBC) [Entitic mass] 31.2 pg Normal 27.0-32.0 [facility] Comment on above: Order Comment: Order Date: 04/14/24 Order Info: 666-06 - BMP Performed By: #### L 500.2500 #### [facility] [address] [place], [address] MCHC (RBC) [Mass/Vol] 33.1 g/dL Normal 32-36 [facility] Comment on above: Order Comment: Order Date: 04/14/24 Order Info: 666-06 - BMP Performed By: #### L 500.2500 #### [facility] [address] [place], [address] MCV (RBC) [Entitic vol] 94.5 fL High 80-94 [facility] Comment on above: Order Comment: Order Date: 04/14/24 Order Info: 666-06 - BMP Performed By: #### L 500.2500 #### [facility] [address] [place], [address] Monocytes/100 WBC (Bld) 8.2 % Normal 0-10 [facility] Comment on above: Order Comment: Order Date: 04/14/24 Order Info: 666-06 - BMP Performed By: #### L 500.2500 #### [facility] [address] [place], [address] Neutrophils/100 WBC (Bld) 68.4 % Normal 47-70 [facility] Comment on above: Order Comment: Order Date: 04/14/24 Order Info: 666-06 - BMP Performed By: #### L 500.2500 #### [facility] [address] [place], [address] Nucleated RBC (Bld) [#/Vol] 0 10*3/uL Normal 0-5 [facility] Comment on above: Order Comment: Order Date: 04/14/24 Order Info: 666-06 - BMP Performed By: #### L 500.2500 #### [facility] [address] [place], [address] Platelet mean volume (Bld) [Entitic vol] 8.5 fL Normal 6.2-12.0 [facility] Comment on above: Order Comment: Order Date: 04/14/24 Order Info: 666-06 - BMP Performed By: #### L 500.2500 #### [facility] [address] [place], [address] Platelets (Bld) [#/Vol] 304 10*3/uL Normal 150-450 [facility] Comment on above: Order Comment: Order Date: 04/14/24 Order Info: 666-06 - BMP Performed By: #### L 500.2500 #### [facility] [address] [place], [place], [address] RBC (Bld) [#/Vol] 3.81 10*6/uL Low 4.6-6.2 [facility] Comment on above: Order Comment: Order Date: 04/14/24 Order Info: 666-06 - BMP Performed By: #### L 500.2500 #### [facility] [address] [place], [place], [address] RDW SD 42.3 fl Normal 35.1-43.9 [facility] Comment on above: Order Comment: Order Date: 04/14/24 Order Info: 666-06 - BMP Performed By: #### L 500.2500 #### [facility] [address] [place], [place], [address] WBC (Bld) [#/Vol] 6.6 10*3/uL Normal 4.4-11.0 [facility] Comment on above: Order Comment: Order Date: 04/14/24 Order Info: 666-06 - BMP Performed By: #### L 500.2500 #### [facility] [address] [place], [place], [address] Carbon dioxide measurementOr dered By: Lenin Hidalgo on 07-17-2024 CO2 [Moles/Vol] 25.0 mmol/L 21.0-32.0 [facility] Chloride measurementOrdered By: Lenin Hidalgo on 07-17-2024 Chloride [Moles/Vol] 98 mmol/L 98-107 [facility] Comprehensive Metabolic Prof ilon 07-17-2024 Albumin [Mass/Vol] 4.0 g/dL Normal 3.2-5.0 [facility] Comment on above: Order Comment: Order Date: 04/14/24 Order Info: 666-06 - BMP Performed By: #### L 500.2500 #### [facility] [address] [place], [address] Albumin/Globulin [Mass ratio] 1.0 {ratio} Normal 0.9-2.4 [facility] Comment on above: Order Comment: Order Date: 04/14/24 Order Info: 666-06 - BMP Performed By: #### L 500.2500 #### [facility] [address] [place], [address] ALK P 53 U/L Normal 45-117 [facility] Comment on above: Order Comment: Order Date: 04/14/24 Order Info: 666-06 - BMP Performed By: #### L 500.2500 #### [facility] [address] [place], [address] ALT [Catalytic activity/Vol] 21 U/L Normal 16-61 [facility] Comment on above: Order Comment: Order Date: 04/14/24 Order Info: 666-06 - BMP Performed By: #### L 500.2500 #### [facility] [address] [place], [address] AST [Catalytic activity/Vol] 12 U/L Low 15-37 [facility] Comment on above: Order Comment: Order Date: 04/14/24 Order Info: 666-06 - BMP Performed By: #### L 500.2500 #### [facility] [address] [place], [address] Bilirubin [Mass/Vol] 0.40 mg/dL Normal 0.20-1.00 [facility] Comment on above: Order Comment: Order Date: 04/14/24 Order Info: 06- - BMP Result Comment: For patients on eltrombopag therapy, use of Dimension [place] TBIL is not recommended. Performed By: #### L 500.2500 #### [facility] [address] [place], [address] BUN/CRE 16.7 RATIO Normal 10-20 [facility] Comment on above: Order Comment: Order Date: 04/14/24 Order Info: 06 - BMP Performed By: #### L 500.2500 #### [facility] [address] [place], [address] CA,Total 9.8 mg/dL Normal 8.5-10.1 [facility] Comment on above: Order Comment: Order Date: 04/14/24 Order Info: 666-06 - BMP Performed By: #### L 500.2500 #### [facility] [address] [place], [address] Chloride [Moles/Vol] 98 mmol/L Normal 98-107 [facility] Comment on above: Order Comment: Order Date: 04/14/24 Order Info: 666-06 - BMP Performed By: #### L 500.2500 #### [facility] [address] [place], [address] CO2 [Moles/Vol] 25.0 mmol/L Normal 21.0-32.0 [facility] Comment on above: Order Comment: Order Date: 04/14/24 Order Info: 666-06 - BMP Performed By: #### L 500.2500 #### [facility] [address] [place], [address] Creatinine [Mass/Vol] 1.50 mg/dL High 0.70-1.30 [facility] Comment on above: Order Comment: Order Date: 04/14/24 Order Info: 666-06 - BMP Result Comment: The validity of the calculated GFR GFRAA in patients over 70 years has not been determined. Clinical correlation is essential. Performed By: #### L 500.2500 #### [facility] [address] [place], [address] EST GFR - AA 59 mL/min Low >60 [facility] Comment on above: Order Comment: Order Date: 04/14/24 Order Info: 06 - BMP Result Comment: Afri can Somali GFR Calc Performed By: #### L 500.2500 #### [facility] [address] [place], [place], [address] GAP 9 Normal 5-15 [facility] Comment on above: Order Comment: Order Date: 04/14/24 Order Info: 0667 - BMP Performed By: #### L 500.2500 #### [facility] [address] [place], [address] GFR/1.73 sq M.predicted among non-blacks MDRD (S/P/Bld) [Vol rate/Area] 49 mL/min/{1.73_m2} Low >60 [facility] Comment on above: Order Comment: Order Date: 04/14/24 Order Info: 666-06 - BMP Result Comment: Non- GFR Calc Performed By: #### L 500.2500 #### [facility] [address] [place], [address] Globulin (S) [Mass/Vol] 3.9 g/dL Normal 2.2-4.2 [facility] Comment on above: Order Comment: Order Date: 04/14/24 Order Info: 666-06 - BMP Performed By: #### L 500.2500 #### [facility] [address] [place], [place], [address] Glucose [Mass/Vol] 130 mg/dL High 74-106 [facility] Comment on above: Order Comment: Order Date: 04/14/24 Order Info: 0667 - BMP Result Comment: Fast ing Glucose result greater than or equal to 126 mg/dL suggests DIABETES MELLITUS per A.D.A. criteria. Performed By: #### L 500.2500 #### [facility] [address] [place], [address] Potassium [Moles/Vol] 4.6 mmol/L Normal 3.5-5.1 [facility] Comment on above: Order Comment: Order Date: 04/14/24 Order Info: 0667- - BMP Performed By: #### L 500.2500 #### [facility] [address] [place], [place], [address] Sodium [Moles/Vol] 132 mmol/L Low 136-145 [facility] [facility] [place] Comment on above: Order Comment: Order Date: 04/14/24 Order Info: 0667-1 - BMP Performed By: #### L 500.2500 #### [facility] [address] [place], [place], [address] T PROT 7.9 g/dL Normal 6.4-8.2 [facility] Comment on above: Order Comment: Order Date: 04/14/24 Order Info: 0667- - BMP Performed By: #### L 500.2500 #### [facility] [address] [place], [place], [address] Urea nitrogen [Mass/Vol] 25 mg/dL High 7-18 [facility] Comment on above: Order Comment: Order Date: 04/14/24 Order Info: 0667 - BMP Performed By: #### L 500.2500 #### [facility] [address] [place], [place], [address] Eosinophil percentageOrdered By: Lenin Hidalgo on 07-17-2024 Eosinophils/100 WBC (Bld) 3.6 % 0-5 [facility] Erythrocyte distribution wid th ratioOrdered By: Lenin Hidalgo on 07-17-2024 Erythrocyte distribution width (RBC) [Ratio] 12.2 % 11.6-14.6 [facility] Erythrocyte distribution wid th standard deviationOrdered By: Lenin Hidalgo on 07-17-2024 Erythrocyte distribution width (RBC) [Entitic vol] 42.3 fL 35.1-43.9 [facility] Estimated glomerular filtrat ion rate (GFR) AmericanOrdered By: Lenin Hidalgo on 07-17-2024 Estimated GFR (MDRD) Amer 59 mL/min Low >60 [facility] Comment on above: GFR Calc Glomerular filtration rate ( GFR) estimationOrdered By: Lenin Hidalgo on 07-17-2024 Estimated GFR (MDRD) Non-Af Amer 49 mL/min Low >60 [facility] Comment on above: Non- GFR Calc Glucose measurementOrdered B y: Lenin Hidalgo on 07-17-2024 Glucose [Mass/Vol] 130 mg/dL High 74-106 [facility] [place] Comment on above: Fasting Glucose resu lt greater than or equal to 126 mg/dL suggests DIABETES MELLITUS per A.D.A. criteria. Hematocrit Auto (Bld) [Volum e fraction]Ordered By: Lenin Hidalgo on 07-17-2024 Hematocrit (Bld) [Volume fraction] 36.0 % Low 40-54 [facility] Hemoglobin measurementOrdere d By: Lenin Hidalgo on 07-17-2024 Hemoglobin (Bld) [Mass/Vol] 11.9 g/dL Low 13.0-16.5 [facility] Immature granulocytes/100 WB C Auto (Bld)Ordered By: Lenin Hidalgo on 07-17-2024 Immature granulocytes/100 WBC (Bld) 0.500 % 0.0-0.9 [facility] Comment on above: IG% - Immature Granu locytes (promyelocytes, myelocytes and metamyelocytes) > 1% indicates that a LEFT SHIFT is Present. Laboratory - Chemistry and C hemistry - challengeOrdered By: Lenin Hidalgo on 07-17-2024 AST [Catalytic activity/Vol] 12 U/L Low 15-37 [facility] Lymphocytes Auto (Unsp spec) [#/Vol]Ordered By: Lenin Hidalgo on 07-17-2024 Lymphocytes (Bld) [#/Vol] 1.22 10*3/uL 0.83-4.51 [facility] Lymphocytes/100 WBC Auto (Un sp spec)Ordered By: Lenin Hidalgo on 07-17-2024 Lymphocytes/100 WBC (Bld) 18.4 % Low 19-41 [facility] MCV (mean corpuscular volume ) determinationOrdered By: Lenin Hidalgo on 07-17-2024 MCV (RBC) [Entitic vol] 94.5 fL High 80-94 [facility] Mean corpuscular hemoglobin (MCH) determinationOrdered By: Lenin Hidalgo on 07-17-2024 MCH (RBC) [Entitic mass] 31.2 pg 27.0-32.0 [facility] Mean corpuscular hemoglobin concentration (MCHC) determinationOrdered By: Lenin Hidalgo on 07-17-2024 MCHC (RBC) [Mass/Vol] 33.1 g/dL 32-36 [facility] Mean platelet volume determi nationOrdered By: Lenin Hidalgo on 07-17-2024 Platelet mean volume (Bld) [Entitic vol] 8.5 fL 6.2-12.0 [facility] Monocyte percentageOrdered B y: Lenin Hidalgo on 07-17-2024 Monocytes/100 WBC (Bld) 8.2 % 0-10 [facility] Neutrophil percentageOrdered By: Lenin Hidalgo on 07-17-2024 Neutrophils/100 WBC (Bld) 68.4 % 47-70 [facility] Nucleated red blood cell per centageOrdered By: Lenin Hidalgo on 07-17-2024 Nucleated RBC/100 WBC (Bld) [Ratio] 0 % 0-5 [facility] Platelet countOrdered By: Curtis Hidalgo on 07-17-2024 Platelets (Bld) [#/Vol] 304 10*3/uL 150-450 [facility] Potassium measurementOrdered By: Lenin Hidalgo on 07-17-2024 Potassium [Moles/Vol] 4.6 mmol/L 3.5-5.1 [facility] RBC Auto (Bld) [#/Vol]Ordere d By: Lenin Hidalgo on 07-17-2024 RBC (Bld) [#/Vol] 3.81 10*6/uL Low 4.6-6.2 [facility] Serum anion gap measurementO rdered By: Lenin Hidalgo on 07-17-2024 Anion gap [Moles/Vol] 9 mmol/L 5-15 [facility] Serum globulin measurementOr dered By: Lenin Hidalgo on 07-17-2024 Globulin (S) [Mass/Vol] 3.9 g/dL 2.2-4.2 [facility] Serum or plasma alanine pringle otransferase (ALT) measurementOrdered By: Lenin Hidalgo on 07-17-2024 ALT [Catalytic activity/Vol] 21 U/L 16-61 [facility] Serum or plasma albumin kay urement (mass/volume)Ordered By: Lenin Hidalgo on 07-17-2024 Albumin [Mass/Vol] 4.0 g/dL 3.2-5.0 [facility] [place] Serum or plasma alkaline ranjana sphatase measurementOrdered By: Lenin Hidalgo on 07-17-2024 ALP [Catalytic activity/Vol] 53 U/L 45-117 [facility] Serum or plasma calcium kay urement (mass/volume)Ordered By: Lenin Hidalgo on 07-17-2024 Calcium [Mass/Vol] 9.8 mg/dL 8.5-10.1 [facility] [place] Serum or plasma creatinine m easurement (mass/volume)Ordered By: Lenin Hidalgo on 07-17-2024 Creatinine [Mass/Vol] 1.50 mg/dL High 0.70-1.30 [facility] Comment on above: The validity of the calculated GFR & GFRAA in patients over 70 years has not been determined. Clinical correlation is essential. Serum or plasma urea nitroge n measurement (mass/volume)Ordered By: Lenin Hidalgo on 07-17-2024 Urea nitrogen [Mass/Vol] 25 mg/dL High 7-18 [facility] Sodium levelOrdered By: Lenin Hidalgo on 07-17-2024 Sodium [Moles/Vol] 132 mmol/L Low 136-145 [facility] [place] Total proteinOrdered By: Selma Hidalgo on 07-17-2024 Protein [Mass/Vol] 7.9 g/dL 6.4-8.2 [facility] [place] White blood cell (WBC) count Ordered By: Lenin Hidalgo on 07-17-2024 WBC (Bld) [#/Vol] 6.6 10*3/uL 4.4-11.0 [facility] [place] Cardiology Visit Reporton Cardiology Visit Report [facility] [address] [place] [address] OFFICE VISIT Date of Service: 07/07/24 MR#: [id number] Acct: [id number] Name: OSMAN PADGETT Rep #: [id number] : 1950 Provider: Dr. Trenton Gerard MD Age/Sex: 74/M Location: [facility] Status: Signed HPI HPI History of Present Illness Details: This is a 74-year-old gentleman who presents here today for a cardiovascular follow-up visit. His major concern is that he gets occasional palpitations, he gets dizzy when he gets up quickly from the seated position or bends down to pet his dog and then also he gets short of breath with activity. As you know he has a history of right bundle branch block, hypertension, hyperlipidemia and diabetes. He was seen in our office in 2017 for evaluation of his right bundle branch block. His most recent stress test from October of 2023 demonstrated possible inferior ischemia. Medical therapy was recommended because you remember that he underwent a stress test in February 2022 which demonstrated inferior infarct at moderate to high workload he underwent a cardiac catheterization which demonstrated nonobstructive coronary disease. He was in the emergency room recently for a noncardiac issue. He is much better now. From a cardiac standpoint, the patient is doing well. He does acknowledge anxiety, and confusion. He denies any palpitations, chest pain, pressure or heaviness. He denies Orthopnea, and PND. He does not have bleeding issues; no blood in urine, stool or nosebleeds. He does acknowledge fatigue, and myalgias-leg muscles. He denies claudication. He does not have edema, or sudden weight gain. He does have occasional lightheadedness with bending over. Intake Vital Signs 01/18/24 13:09 07/07/24 11:28 Height 6 ft 6 ft Weight: 211 lb BMI 28.6 BP 117/76 Blood Pressure Location Lt brachial Position Sitting Respiration 16 Pulse 73 Pulse Source Monitor Intake Visit Reasons: ABN ECHO Foster Winder Required: No Accompanied by: Significant Other Is patient in pain?: No Allergies Thiazides Allergy (Severe, Verified 07/07/24 11:30) Other diphenhydramine (From Benadryl) Allergy (Intermediate, Verified 07/07/24 11:30) Other Penicillins Allergy (Intermediate, Verified 07/07/24 11:30) Rash Kxtdjwm-HKK-TkP Reductase Inhibitor Allergy (Intermediate, Verified 07/07/24 11:30) Other trazodone Allergy (Intermediate, Verified 07/07/24 11:30) Other atorvastatin Adverse Reaction (Intermediate, Verified 07/07/24 11:30) messed with my head simvastatin Adverse Reaction (Intermediate, Verified 07/07/24 11:30) messed with my head Medications ???Medication ???Instructions ???Recorded ???Confirmed ???Type loratadine 10 mg tablet (Claritin) 10 mg PO DAILY 11/26/20 07/07/24 History multivitamin 1 tab PO DAILY 02/08/21 07/07/24 History aspirin 81 mg capsule 81 mg PO DAILY 03/16/22 07/07/24 History cholecalciferol (vitamin D3) 50 50 mcg PO DAILY 11/05/23 07/07/24 History mcg (2,000 unit) capsule ropinirole 0.5 mg tablet 1 mg PO QHS 01/18/24 07/07/24 History azelastine 137 mcg (0.1 %) nasal intranasal PRN Allergies 07/07/24 07/07/24 History spray dapagliflozin propanediol 10 mg 10 mg PO DAILY Diabetic, CKD, 07/07/24 07/07/24 History tablet (Farxiga) Heart problems duloxetine 60 mg capsule,delayed 60 mg PO DAILY depression 07/07/24 07/07/24 History release lisdexamfetamine 60 mg capsule 60 mg PO QDAY Helps me focus 07/07/24 07/07/24 History (Vyvanse) magnesium 500 mg tablet 250 mg PO BID supplement 07/07/24 07/07/24 History metformin 500 mg tablet 500 mg PO BID 07/07/24 07/07/24 History pioglitazone 30 mg tablet 30 mg PO DAILY Diabetic 07/07/24 07/07/24 History Have you fallen in the past year?: Yes [facility] Medical History Chronic kidney disease (CKD) Abnormal stress test Nasal turbinate hypertrophy Closed fracture nasal bone Acquired nasal deformity Nasal septal deviation Nasal congestion Type 2 diabetes mellitus Right bundle branch block History of basal cell carcinoma Allergic rhinitis due to other allergen Spondylolisthesis Erectile dysfunction Essential hypertension Pure hypercholesterolemia Surgical History History of left heart catheterization (03/16/22) History of varicose veins History of sinus surgery (1989) History of esophagogastroduodenoscopy (EGD) (04/19/14) History of colonoscopy (01/19/14) Family History Mother Cancer breast Diabetes Thyroid disorder Father Cancer leukemia Hypertension Social History Smoking Status: Never smoker (more content not included)... Normal [facility] Protein Electroph, Son 06-19 Albumin [Mass/Vol] 3.7 g/dL Normal 2.9-4.4 [facility] [place] Comment on above: Order Comment: Order Date: 04/14/24 Order Info: 0667- - BMP Performed By: #### L 500.2500 #### [facility] [address] [place], [address] Albumin/Globulin [Mass ratio] 1.1 {ratio} Normal 0.7-1.7 [facility] Comment on above: Order Comment: Order Date: 04/14/24 Order Info: 06- - BMP Performed By: #### L 500.2500 #### [facility] [address] [place], [address] ALPHA-1 GLOBUL 0.2 g/dL Normal 0.0-0.4 [facility] Comment on above: Order Comment: Order Date: 04/14/24 Order Info: 06 - BMP Performed By: #### L 500.2500 #### [facility] [address] [place], [address] ALPHA-2 GLOBUL 0.9 g/dL Normal 0.4-1.0 [facility] Comment on above: Order Comment: Order Date: 04/14/24 Order Info: 0667- - BMP Performed By: #### L 500.2500 #### [facility] [address] [place], [address] BETA GLOBULIN 1.2 g/dL Normal 0.7-1.3 [facility] Comment on above: Order Comment: Order Date: 04/14/24 Order Info: 0667 - BMP Performed By: #### L 500.2500 #### [facility] [address] [place], [address] GAMMA GLOBULIN 1.1 g/dL Normal 0.4-1.8 [facility] Comment on above: Order Comment: Order Date: 04/14/24 Order Info: 666-06 - BMP Performed By: #### L 500.2500 #### [facility] [address] [place], [place], [address] Globulin (S) [Mass/Vol] 3.4 g/dL Normal 2.2-3.9 [facility] Comment on above: Order Comment: Order Date: 04/14/24 Order Info: 666-06 - BMP Performed By: #### L 500.2500 #### [facility] [address] [place], [place], [address] INTERPRETATION Comment Normal . [facility] Comment on above: Order Comment: Order Date: 04/14/24 Order Info: 666-06 - BMP Result Comment: Prot ein electrophoresis scan will follow via computer, mail, or office helper delivery. Performed By: #### L 500.2500 #### [facility] [address] [place], [place], [address] M-SPIKE Not Observed Normal Not Observed [facility] Comment on above: Order Comment: Order Date: 04/14/24 Order Info: 666-06 - BMP Performed By: #### L 500.2500 #### [facility] [address] [place], [place], [address] NOTE: Comment Normal . [facility] Comment on above: Order Comment: Order Date: 04/14/24 Order Info: 666-06 - BMP Result Comment: The SPE pattern appears unremarkable. Evidence of monoclonal protein is not apparent. Performed at: [facility] [id number] [employer] Repairer: Bonifacio De Jesus PhD, Phone: [phone] Performed By: #### L 500.2500 #### [facility] [address] [place], [place], [address] Protein [Mass/Vol] 7.1 g/dL Normal 6.0-8.5 [facility] [place] Comment on above: Order Comment: Order Date: 04/14/24 Order Info: 0667-1 - BMP Performed By: #### L 500.2500 #### [facility] [address] [place], [address] Addendum DocumentOrdered By: Lenin Hidalgo on 06-16-2024 Protein Electrophoresis Note Comment . [facility] Comment on above: The SPE pattern appe ars unremarkable. Evidence ofmonoclonal protein is not apparent.Performed at: [facility] [address] [id number] Director: Bonifacio De Jesus PhD, Phone: [phone] Albumin Elph [Mass/Vol]Order ed By: Lenin Hidalgo on 06-16-2024 Albumin [Mass/Vol] 3.7 g/dL 2.9-4.4 [facility] [place] Albumin/Globulin Elph [Mass ratio]Ordered By: Lenin Hidalgo on 06-16-2024 Albumin/Globulin (PEP) 1.1 0.7-1.7 [facility] Tyxwl-7-sajjtonv measurement by protein electrophoresisOrdered By: Lenin Hidalgo on 06-16-2024 Kojrq-3-Mmzqohyik 0.2 g/dL 0.0-0.4 [facility] Yfcnc-2-bpnzzpew measurement by protein electrophoresisOrdered By: Lenin Hidalgo on 06-16-2024 Pueup-1-Ptrhcyfpo 0.9 g/dL 0.4-1.0 [facility] Beta globulin Elph [Mass/Vol ]Ordered By: Lenin Hidalgo on 06-16-2024 Beta Globulins 1.2 g/dL 0.7-1.3 [facility] Gamma globulin measurement b y protein electrophoresisOrdered By: Lenin Hidalgo on 06-16-2024 Gamma Globulins 1.1 g/dL 0.4-1.8 [facility] Globulin (S) [Mass/Vol]Order ed By: Lenin Hidalgo on 06-16-2024 Globulin (PEP) 3.4 g/dL 2.2-3.9 [facility] PSA,Total - Annual Screenon 06-16-2024 PSA,TOT SCREEN 1.19 ng/mL Normal 0.00-4.00 [facility] Comment on above: Order Comment: Order Date: 04/14/24 Order Info: 0667-1 - BMP Result Comment: This test was performed using the TPSA assay method for the [employer] chemistry system. Values obtained with different assay methods cannot be used interchangably. When changing PSA assays in the course of monitoring a patient, additional sequential testing should be carried out to confirm baseline values. Performed By: #### L 500.2500 #### [facility] [address] [place], [address] Protein Fractions Elph [Inte rp]Ordered By: Lenin Hidalgo on 06-16-2024 Protein Electrophoresis Interpret Comment . [facility] Comment on above: Protein electrophore sis scan will follow via computer,mail, or office helper delivery. Protein.monoclonal Elph [Mas s/Vol]Ordered By: Lenin Hidalgo on 06-16-2024 Protein Electrophoresis M-Betito Not Observed g/dL Not Observed [facility] Screening prostate specific antigen (PSA) measurementOrdered By: Lenin Hidalgo on 06-16-2024 Prostate Specific Antigen Screen 1.19 ng/mL 0.00-4.00 [facility] Comment on above: This test was perfor med using the TPSA assay method for the[employer] chemistry system. Values obtained with differentassay methods cannot be used interchangably.When changing PSA assays in the course of monitoring apatient, additional sequential testing should be carriedout to confirm baseline values. Serum or plasma protein kay urement (mass/volume)Ordered By: Lenin Hidalgo on 06-16-2024 Protein [Mass/Vol] 7.1 g/dL 6.0-8.5 [facility] [place] Lower Ext No Joint W/WO Cont on 06-12-2024 Lower Ext No Joint W/WO Cont [facility] Services [address] [place], [place] [address] Lower Ext No Joint W/WO Cont MR#: [id number] Acct: [id number] Name: OSMAN PADGETT Rep #: [id number] : 1950 M 74 From: Boilvar holder MD PCP: Dr. Lenin Hidalgo MD Status: REG CLI Study: Lower Ext No Joint W/WO Cont Date of Exam: Exam# [id number] Ordering Dr: Delphine Neri Leslie [id number] STUDY: MRI LEFT MIDFOOT WITH/WITHOUT CONTRAST REASON FOR EXAM: Male, 74 years old. LT FOOT,NEOPLASM IN BONE,SOFT TISSUE OR SKIN, AREA IS IN BETWEEN MARKERS TECHNIQUE: Standarized fat and water weighted pulse sequences were obtained in all 3 orthogonal plane pre and post administration of IV 18ml clariscan. COMPARISON: None. FINDINGS: Extruded peripherally enhancing 2.62 x 1.65 cm lobular and degenerated ganglion cyst is present over the dorsum of the navicular first cuneiform articulation. The navicular first cuneiform articulation is moderately narrowed and degenerated with subchondral cystic changes and reactive edema on both sides of the joint space. Internal synovitis is seen within the ganglion cyst. No demonstrated mass or evidence of a synovial sarcoma. No demonstrated cortical erosion. Mild to moderate narrowing of the second and third TMT articulation is also demonstrated with reactive edema and mild cystic changes and cortical spurring on both sides of the articulations. No demonstrated fracture. No evidence of osteomyelitis is present. A small joint effusion is seen in the first MTP. The visualized phalanges are unremarkable. Normal talonavicular articulation. Normal calcaneocuboid articulation. Normal intercuneiform articulations. Normal first tarsometatarsal articulation. Normal Lisfranc ligament. Normal cuboid fourth and cuboid fifth tarsometatarsal articulation. Normal remaining metatarsi. Normal tibialis anterior tendon. Normal extensor hallucis longus tendon. Normal extensor digitorum longus tendons. Normal peroneus longus tendon and distal insertion. Normal peroneus brevis tendon and distal insertion. Normal intrinsic muscles of the mid and forefoot region. Normal extensor digitorum brevis muscle. MRI/Lower Ext No Joint W/WO Cont IMPRESSION: 1. Extruded peripherally enhancing 2.62 x 1.65 cm lobular and degenerated ganglion cyst is present over the dorsum of the navicular first cuneiform articulation. The navicular first cuneiform articulation is moderately narrowed and degenerated with subchondral cystic changes and reactive edema on both sides of the joint space. Internal synovitis is seen within the ganglion cyst. No demonstrated mass or evidence of a synovial sarcoma. No demonstrated cortical erosion. 2. Mild to moderate narrowing of the second and third TMT articulation is also demonstrated with reactive edema and mild cystic changes and cortical spurring on both sides of the articulations. 3. No demonstrated fracture. 4. No evidence of osteomyelitis is present. A small joint effusion is seen in the first MTP. Electronically Signed: Bolivar Vogt MD at 13:13 EST Reading Location ID and State: [facility] / ID , Service support , CC: DPLeslie Neri; Dr. Lenin Hidalgo MD Continuous Improvement Director: Signed Normal [facility] Basic Metabolic Profile (BMP )on 06-05-2024 BUN/CRE 18.8 RATIO Normal 10-20 [facility] Comment on above: Order Comment: Inter face Comments: standing order Order Date: 03/28/24 Order Info: 0667-1 - BMP Annual exam Order Date: 04/11/24 Order Info: [id number] - LIPID Comments: annual annual Performed By: #### L 500.2500 #### [facility] [address] [place], [place], [id number] CA,Total 9.8 mg/dL Normal 8.5-10.1 [facility] Comment on above: Order Comment: Inter face Comments: standing order Order Date: 03/28/24 Order Info: 0667-1 - BMP Annual exam Order Date: 04/11/24 Order Info: [id number] - LIPID Comments: annual annual Performed By: #### L 500.2500 #### [facility] [address] [place], [place], [address] Chloride [Moles/Vol] 101 mmol/L Normal 98-107 [facility] Comment on above: Order Comment: Inter face Comments: standing order Order Date: 03/28/24 Order Info: 0667-1 - BMP Annual exam Order Date: 04/11/24 Order Info: [id number] - LIPID Comments: annual annual Performed By: #### L 500.2500 #### [facility] [address] [place], [address] CO2 [Moles/Vol] 28.0 mmol/L Normal 21.0-32.0 [facility] Comment on above: Order Comment: Inter face Comments: standing order Order Date: 03/28/24 Order Info: 0667- - BMP Annual exam Order Date: 04/11/24 Order Info: [id number] - LIPID Comments: annual annual Performed By: #### L 500.2500 #### [facility] [address] [place], [address] Creatinine [Mass/Vol] 1.44 mg/dL High 0.70-1.30 [facility] Comment on above: Order Comment: Inter face Comments: standing order Order Date: 03/28/24 Order Info: 0667- - BMP Annual exam Order Date: 04/11/24 Order Info: [id number] - LIPID Comments: annual annual Result Comment: The validity of the calculated GFR GFRAA in patients over 70 years has not been determined. Clinical correlation is essential. Performed By: #### L 500.2500 #### [facility] [address] [place], [place], [address] EST GFR - AA 62 mL/min Normal >60 [facility] Comment on above: Order Comment: Inter face Comments: standing order Order Date: 03/28/24 Order Info: 0667- - BMP Annual exam Order Date: 04/11/24 Order Info: [id number] - LIPID Comments: annual annual Result Comment: Silvia keane Somali GFR Calc Performed By: #### L 500.2500 #### [facility] [address] [place], [address] GAP 4 Low 5-15 [facility] Comment on above: Order Comment: Inter face Comments: standing order Order Date: 03/28/24 Order Info: 666-06 - BMP Annual exam Order Date: 04/11/24 Order Info: [id number] - LIPID Comments: annual annual Performed By: #### L 500.2500 #### [facility] [address] [place], [place], [address] GFR/1.73 sq M.predicted among non-blacks MDRD (S/P/Bld) [Vol rate/Area] 51 mL/min/{1.73_m2} Low >60 [facility] Comment on above: Order Comment: Inter face Comments: standing order Order Date: 03/28/24 Order Info: 666-06 - BMP Annual exam Order Date: 04/11/24 Order Info: [id number] - LIPID Comments: annual annual Result Comment: Non- GFR Calc Performed By: #### L 500.2500 #### [facility] [address] [place], [place], [address] Glucose [Mass/Vol] 169 mg/dL High 74-106 [facility] Comment on above: Order Comment: Inter face Comments: standing order Order Date: 03/28/24 Order Info: 666-06 - BMP Annual exam Order Date: 04/11/24 Order Info: [id number] - LIPID Comments: annual annual Result Comment: Fast ing Glucose result greater than or equal to 126 mg/dL suggests DIABETES MELLITUS per A.D.A. criteria. Performed By: #### L 500.2500 #### [facility] [address] [place], [place], [address] [phone] Potassium [Moles/Vol] 4.8 mmol/L Normal 3.5-5.1 [facility] Comment on above: Order Comment: Inter face Comments: standing order Order Date: 03/28/24 Order Info: 06- - BMP Annual exam Order Date: 04/11/24 Order Info: [id number] - LIPID Comments: annual annual Performed By: #### L 500.2500 #### [facility] [address] [place], [place], [address] [phone] Sodium [Moles/Vol] 133 mmol/L Low 136-145 [facility] Comment on above: Order Comment: Inter face Comments: standing order Order Date: 03/28/24 Order Info: 0667-1 - BMP Annual exam Order Date: 04/11/24 Order Info: [id number] - LIPID Comments: annual annual Performed By: #### L 500.2500 #### [facility] [address] [place], [place], [address] Urea nitrogen [Mass/Vol] 27 mg/dL High 7-18 [facility] Comment on above: Order Comment: Inter face Comments: standing order Order Date: 03/28/24 Order Info: 0667-1 - BMP Annual exam Order Date: 04/11/24 Order Info: [id number] - LIPID Comments: annual annual Performed By: #### L 500.2500 #### [facility] [address] [place], [place], [address] Blood urea nitrogen (BUN)/cr eatinine ratioOrdered By: Lenin Hidalgo on 06-05-2024 Urea nitrogen/Creatinine [Mass ratio] 18.8 mg/mg 10-20 [facility] Carbon dioxide measurementOr dered By: Lenin Hidalgo on 06-05-2024 CO2 [Moles/Vol] 28.0 mmol/L 21.0-32.0 [facility] Chloride measurementOrdered By: Lenin Hidalgo on 06-05-2024 Chloride [Moles/Vol] 101 mmol/L 98-107 [facility] Estimated glomerular filtrat ion rate (GFR) AmericanOrdered By: Lenin Hidalgo on 06-05-2024 Estimated GFR (MDRD) Amer 62 mL/min >60 [facility] Comment on above: GFR Calc Glomerular filtration rate ( GFR) estimationOrdered By: Lenin Hidalgo on 06-05-2024 Estimated GFR (MDRD) Non-Af Amer 51 mL/min Low >60 [facility] Comment on above: Non- GFR Calc Glucose measurementOrdered B y: Lenin Hidalgo on 06-05-2024 Glucose [Mass/Vol] 169 mg/dL High 74-106 [facility] Comment on above: Fasting Glucose resu lt greater than or equal to 126 mg/dL suggests DIABETES MELLITUS per A.D.A. criteria. High density lipoprotein (HD L) measurementOrdered By: Lenin Hidalgo on 06-05-2024 Cholesterol in HDL [Mass/Vol] 59 mg/dL >40 [facility] Comment on above: The drugs N-Acetylcy steine and Metamizole may falsely depress this assay. Reference Range HDL <40 mg/dL Low HDL Cholesterol HDL >or= 60 mg/dL High HDL Cholesterol Lipid Profileon 06-05-2024 Cholesterol [Mass/Vol] 213 mg/dL High 200 [facility] Comment on above: Order Comment: Inter face Comments:standing orderOrder Date: 03/28/24Order Info: 0667- - BMPAnnual examOrder Date: 04/11/24Order Info: [id number] - LIPIDComments: annualannual Result Comment: <200 mg/dL Desirable 200-240 mg/dL Borderline >240 mg/dL High Risk Performed By: #### L 500.4050, L501.2450, L501.5200, L506.1001 #### [facility] [address] [place], [address] Cholesterol in HDL [Mass/Vol] 59 mg/dL Normal [facility] Comment on above: Order Comment: Inter face Comments:standing orderOrder Date: 03/28/24Order Info: 0667- - BMPAnnual examOrder Date: 04/11/24Order Info: [id number] - LIPIDComments: annualannual Result Comment: The drugs N-Acetylcysteine and Metamizole may falsely depress this assay. Reference Range HDL <40 mg/dL Low HDL Cholesterol HDL >or= 60 mg/dL High HDL Cholesterol Performed By: #### L 500.4050, L501.2450, L501.5200, L506.1001 #### [facility] [address] [place], [address] Cholesterol in LDL [Mass/Vol] 117 mg/dL Normal 0-130 [facility] Comment on above: Order Comment: Inter face Comments:standing orderOrder Date: 03/28/24Order Info: 0667- - BMPAnnual examOrder Date: 04/11/24Order Info: [id number] - LIPIDComments: annualannual Performed By: #### L 500.4050, L501.2450, L501.5200, L506.1001 #### [facility] [address] [place], [address] Cholesterol in VLDL [Mass/Vol] 37 mg/dL Normal 5-40 [facility] Comment on above: Order Comment: Inter face Comments:standing orderOrder Date: 03/28/24Order Info: 0667-1 - BMPAnnual examOrder Date: 04/11/24Order Info: [id number] - LIPIDComments: annualannual Performed By: #### L 500.4050, L501.2450, L501.5200, L506.1001 #### [facility] [address] [place], [address] Triglyceride [Mass/Vol] 187 mg/dL Normal [facility] Comment on above: Order Comment: Inter face Comments:standing orderOrder Date: 03/28/24Order Info: 0667-1 - BMPAnnual examOrder Date: 04/11/24Order Info: [id number] - LIPIDComments: annualannual Result Comment: The drugs N-Acetylcysteine and Metamizole may falsely depress this assay. Serum Triglycerides Reference Interval Normal <150 mg/dL Borderline high 150 - 199 mg/dL High 200 - 499 mg/dL Very High > or = 500 mg/dL Performed By: #### L 500.4050, L501.2450, L501.5200, L506.1001 #### [facility] [address] [place], [address] Low density lipoprotein (LDL ) cholesterol measurementOrdered By: Lenin Hidalgo on 06-05-2024 Cholesterol in LDL [Mass/Vol] 117 mg/dL 0-130 [facility] Potassium measurementOrdered By: Lenin Hidalgo on 06-05-2024 Potassium [Moles/Vol] 4.8 mmol/L 3.5-5.1 [facility] Serum anion gap measurementO rdered By: Lenin Hidalgo on 06-05-2024 Anion gap [Moles/Vol] 4 mmol/L Low 5-15 [facility] Serum or plasma calcium kay urement (mass/volume)Ordered By: Lenin Hidalgo on 06-05-2024 Calcium [Mass/Vol] 9.8 mg/dL 8.5-10.1 [facility] Serum or plasma cholesterol measurement (mass/volume)Ordered By: Lenin Hidalgo on 06-05-2024 Cholesterol [Mass/Vol] 213 mg/dL High <200 [facility] Comment on above: <200 mg/dL Desirable 200-240 mg/dL Borderline >240 mg/dL High Risk Serum or plasma creatinine m easurement (mass/volume)Ordered By: Lenin Hidalgo on 06-05-2024 Creatinine [Mass/Vol] 1.44 mg/dL High 0.70-1.30 [facility] Comment on above: The validity of the calculated GFR & GFRAA in patients over 70 years has not been determined. Clinical correlation is essential. Serum or plasma urea nitroge n measurement (mass/volume)Ordered By: Lenin Hidalgo on 06-05-2024 Urea nitrogen [Mass/Vol] 27 mg/dL High 7-18 [facility] Sodium levelOrdered By: Lenin Hidalgo on 06-05-2024 Sodium [Moles/Vol] 133 mmol/L Low 136-145 [facility] Triglycerides measurementOrd ered By: Lenin Hidalgo on 06-05-2024 Triglyceride [Mass/Vol] 187 mg/dL <199 [facility] Comment on above: The drugs N-Acetylcy steine and Metamizole may falsely depress this assay.Serum Triglycerides Reference Interval Normal <150 mg/dL Borderline high 150 - 199 mg/dL High 200 - 499 mg/dL Very High > or = 500 mg/dL Very low density lipoprotein (VLDL) cholesterol measurementOrdered By: Lenin Hidalgo on 06-05-2024 VLDL Cholesterol 37 mg/dL 5-40 [facility] Echo Completeon 05-24-2024 Echo Complete [facility] [address] [place] [address] Echo Complete 05/24/24 1056 MR#: [id number] Acct: [id number] Name: OSMAN PADGETT Rep #: [id number] : 1950 74 From: Eugenia Pastrana MD Attending Dr: Dr. Lenin Hidalgo MD Status: REG CL I Ordering Dr: Lenin Hidalgo MD Date: 05/24/24 Location: [facility] Sex: M C Admitted: Reason For Study: AV DISORDER Procedure This was a 2D Doppler, Color Flow transthoracic echocardiogram. Exam performed in department. Left Ventricle Normal size and thickness. The left ventricular ejection fraction is 65 %. Normal diastology for age. Right Ventricle Normal right ventricle. Atria The left and right atria are normal. Mitral Valve Moderate to severe mitral valve annular calcification. Mild mitral valve regurgitation. Tricuspid Valve Mild tricuspid valve insufficiency. Normal pulmonary artery pressure. Aortic Valve Trisinus/trileaflet aortic valve. Mild calcification of aortic valve leaflets. Aortic valve sclerosis without stenosis. Mild (1+) aortic valve insufficiency. Pulmonic Valve The pulmonic valve is not well visualized. Trivial pulmonic valve insufficiency. Great Vessels Mildly dilated aortic root. Pericardium/Pleural No pericardial effusion. MMode/2D Measurements Calculations LVIDd: 5.1 cm IVSd: 1.0 cm Ao root diam: 3.9 cm LVIDs: 2.8 cm LVPWd: 1.0 cm RVDd: 3.5 cm FS: 45.2 % LAV(MOD-bp): 66.3 ml LVAd ap4: 36.1 cm2 SV(MOD-sp4): 76.0 ml LAV(MOD-bp) Indexed: 31.8 ml/m2 LVLd ap4: 8.5 cm SI(MOD-sp4): 36.4 ml/m2 LAV(MOD-sp2): 66.1 ml EDV(MOD-sp4): 124.0 ml LAV(MOD-sp4): 66.0 ml EDV(sp4-el): 130.0 ml LVAs ap4: 19.6 cm2 LVLs ap4: 6.8 cm ESV(MOD-sp4): 48.0 ml ESV(sp4-el): 48.2 ml EF(MOD-sp4): 61.3 % EF(sp4-el): 62.9 % SV(sp4-el): 81.7 ml LA A4 area: 21.8 cm2 LA dimension(2D): 4.1 cm RA A4 area: 13.6 cm2 Time Measurements MV dec time: 0.21 sec Doppler Measurements Calculations MV E max gideon: 56.7 cm/sec Lat Peak E' Gideon: 9.1 cm/sec Med Peak E' Gideon: 6.9 cm/sec MV A max gideon: 70.5 cm/sec E/E' lat: 6.2 E/E' med: 8.3 MV E/A: 0.80 MV V2 max: 100.7 cm/sec MV P1/2t max gideon: 62.5 cm/sec Ao V2 max: 175.6 cm/sec MV max P.1 mmHg MV P1/2t: 73.4 msec Ao max P.3 mmHg MV V2 mean: 46.0 cm/sec Ao V2 mean: 123.0 cm/sec MV mean P.0 mmHg MV dec slope: 249.5 cm/sec2 Ao mean P.9 mmHg MV V2 VTI: 19.6 cm MVA(P1/2t): 3.0 cm2 Ao V2 VTI: 35.6 cm AV (velocity ratio): 0.56 AI max gideon: 450.8 cm/sec LV V1 max: 101.3 cm/sec PA V2 max: 114.0 cm/sec AI max P.1 mmHg LV V1 max P.1 mmHg LV V1 mean P.5 mmHg AI dec slope: 229.0 cm/sec2 LV V1 mean: 75.5 cm/sec AI P1/2t: 576.7 msec LV V1 VTI: 19.8 cm TR max gideon: 172.3 cm/sec TR max P.9 mmHg ECHO/Echo Complete Interpretation Summary The left ventricular ejection fraction is 65 %. Moderate to severe mitral valve annular calcification. Mild mitral valve regurgitation. Mild calcification of aortic valve leaflets. Aortic valve sclerosis without stenosis. Mild aortic valve regurgitation. Mildly dilated aortic root. Ordering Physician: Lenin Hidalgo Referring Physician: Lenin Hidalgo Performed By: Allyssa Plascencia RDCS, RVT 05/24/24 1310 Date Eugenia Pastrana MD CC: Dr. Lenin Hidalgo MD Date Dictated: 05/24/24 1056 Date Transcribed: 05/24/241309 Continuous Improvement Director: Signed Normal [facility] Basic Metabolic Profile (BMP )on 05-22-2024 BUN/CRE 21.8 RATIO High 10-20 [facility] Comment on above: Order Comment: Order Date: 04/14/24 Order Info: 0667-1 - BMP Performed By: #### L 500.2500 #### [facility] [address] [place], [address] CA,Total 9.2 mg/dL Normal 8.5-10.1 [facility] Comment on above: Order Comment: Order Date: 04/14/24 Order Info: 0667-1 - BMP Performed By: #### L 500.2500 #### [facility] [address] [place], [address] Chloride [Moles/Vol] 101 mmol/L Normal 98-107 [facility] Comment on above: Order Comment: Order Date: 04/14/24 Order Info: 0667-1 - BMP Performed By: #### L 500.2500 #### [facility] [address] [place], [address] CO2 [Moles/Vol] 26.0 mmol/L Normal 21.0-32.0 [facility] Comment on above: Order Comment: Order Date: 04/14/24 Order Info: 0667-1 - BMP Performed By: #### L 500.2500 #### [facility] [address] [place], [address] Creatinine [Mass/Vol] 1.47 mg/dL High 0.70-1.30 [facility] Comment on above: Order Comment: Order Date: 04/14/24 Order Info: 0667- - L'Idealist Result Comment: The validity of the calculated GFR GFRAA in patients over 70 years has not been determined. Clinical correlation is essential. Performed By: #### L 500.2500 #### [facility] [address] [place], [address] EST GFR - AA 60 mL/min Normal >60 [facility] Comment on above: Order Comment: Order Date: 04/14/24 Order Info: 666- - [facility] Result Comment: Afri can Somali GFR Calc Performed By: #### L 500.2500 #### [facility] [address] [place], [address] GAP 6 Normal 5-15 [facility] Comment on above: Order Comment: Order Date: 04/14/24 Order Info: 06 - [facility] Performed By: #### L 500.2500 #### [facility] [address] [place], [address] GFR/1.73 sq M.predicted among non-blacks MDRD (S/P/Bld) [Vol rate/Area] 50 mL/min/{1.73_m2} Low >60 [facility] Comment on above: Order Comment: Order Date: 04/14/24 Order Info: 0667- - BMP Result Comment: Non- GFR Calc Performed By: #### L 500.2500 #### [facility] [address] [place], [address] Glucose [Mass/Vol] 218 mg/dL High 74-106 [facility] Comment on above: Order Comment: Order Date: 04/14/24 Order Info: 0667- - BMP Result Comment: Gluc ose result greater than or equal to 200 mg/dL suggests DIABETES MELLITUS per A.D.A. criteria. Performed By: #### L 500.2500 #### [facility] [address] [place], [address] Potassium [Moles/Vol] 5.0 mmol/L Normal 3.5-5.1 [facility] Comment on above: Order Comment: Order Date: 04/14/24 Order Info: 666-06 - BMP Performed By: #### L 500.2500 #### [facility] [address] [place], [address] Sodium [Moles/Vol] 133 mmol/L Low 136-145 [facility] Comment on above: Order Comment: Order Date: 04/14/24 Order Info: 666-06 - BMP Performed By: #### L 500.2500 #### [facility] [address] [place], [address] Urea nitrogen [Mass/Vol] 32 mg/dL High -18 [facility] Comment on above: Order Comment: Order Date: 04/14/24 Order Info: 666-06 - BMP Performed By: #### L 500.2500 #### [facility] [address] [place], [address] Basic Metabolic Profile (BMP )on 05-16-2024 BUN/CRE 20.0 RATIO Normal - [facility] Comment on above: Order Comment: Order Date: 04/14/24 Order Info: 666-06 - BMP Performed By: #### L 500.2500 #### [facility] [address] [place], [address] CA,Total 9.5 mg/dL Normal 8.5-10.1 [facility] Comment on above: Order Comment: Order Date: 04/14/24 Order Info: 666-06 - BMP Performed By: #### L 500.2500 #### [facility] [address] [place], [address] Chloride [Moles/Vol] 97 mmol/L Low 98-107 [facility] Comment on above: Order Comment: Order Date: 04/14/24 Order Info: 666-06 - BMP Performed By: #### L 500.2500 #### [facility] [address] [place], [address] CO2 [Moles/Vol] 27.0 mmol/L Normal 21.0-32.0 [facility] Comment on above: Order Comment: Order Date: 04/14/24 Order Info: 666-06 - BMP Performed By: #### L 500.2500 #### [facility] [address] [place], [address] Creatinine [Mass/Vol] 1.50 mg/dL High 0.70-1.30 [facility] Comment on above: Order Comment: Order Date: 04/14/24 Order Info: 666-06 - [facility] Result Comment: The validity of the calculated GFR GFRAA in patients over 70 years has not been determined. Clinical correlation is essential. Performed By: #### L 500.2500 #### [facility] [address] [place], [address] EST GFR - AA 59 mL/min Low >60 [facility] Comment on above: Order Comment: Order Date: 04/14/24 Order Info: 666-06 - [facility] Result Comment: Afri can Somali GFR Calc Performed By: #### L 500.2500 #### [facility] [address] [facility] [place], [address] GAP 4 Low 5-15 [facility] Comment on above: Order Comment: Order Date: 04/14/24 Order Info: 666-06 - BMP Performed By: #### L 500.2500 #### [facility] [address] [place], [address] GFR/1.73 sq M.predicted among non-blacks MDRD (S/P/Bld) [Vol rate/Area] 49 mL/min/{1.73_m2} Low >60 [facility] Comment on above: Order Comment: Order Date: 04/14/24 Order Info: 06 - BMP Result Comment: Non- GFR Calc Performed By: #### L 500.2500 #### [facility] [address] [facility] [place], [address] Glucose [Mass/Vol] 208 mg/dL High 74-106 [facility] Comment on above: Order Comment: Order Date: 04/14/24 Order Info: 666-06 - BMP Result Comment: Gluc ose result greater than or equal to 200 mg/dL suggests DIABETES MELLITUS per A.D.A. criteria. Performed By: #### L 500.2500 #### [facility] [address] [place], [address] Potassium [Moles/Vol] 4.9 mmol/L Normal 3.5-5.1 [facility] Comment on above: Order Comment: Order Date: 04/14/24 Order Info: 666-06 - BMP Performed By: #### L 500.2500 #### [facility] [address] [place], [address] Sodium [Moles/Vol] 128 mmol/L Low 136-145 [facility] Comment on above: Order Comment: Order Date: 04/14/24 Order Info: 666-06 - BMP Performed By: #### L 500.2500 #### [facility] [address] [place], [address] Urea nitrogen [Mass/Vol] 30 mg/dL High 7-18 [facility] Comment on above: Order Comment: Order Date: 04/14/24 Order Info: 666-06 - BMP Performed By: #### L 500.2500 #### [facility] [address] [place], [address] CBC W/Diff, Automatedon 11- Absolute Lymph 1.23 X10 3/uL Normal 0.83-4.51 [facility] Comment on above: Order Comment: Order Date: 04/14/24 Order Info: 666-06 - BMP Performed By: #### L 500.2500 #### [facility] [address] [place], [address] Absolute Neut 4.7 X10 3/uL Normal 2.0-7.7 [facility] Comment on above: Order Comment: Order Date: 04/14/24 Order Info: 666-06 - BMP Performed By: #### L 500.2500 #### [facility] [address] [place], [address] Basophils/100 WBC (Bld) 0.6 % Normal 0-1 [facility] Comment on above: Order Comment: Order Date: 04/14/24 Order Info: 666-06 - BMP Performed By: #### L 500.2500 #### [facility] [address] [place], [address] Eosinophils/100 WBC (Bld) 2.9 % Normal 0-5 [facility] Comment on above: Order Comment: Order Date: 04/14/24 Order Info: 666-06 - BMP Performed By: #### L 500.2500 #### [facility] [address] [place], [address] Erythrocyte distribution width (RBC) [Ratio] 12.5 % Normal 11.6-14.6 [facility] Comment on above: Order Comment: Order Date: 04/14/24 Order Info: 666-06 - BMP Performed By: #### L 500.2500 #### [facility] [address] [place], [address] Hematocrit (Bld) [Volume fraction] 35.4 % Low 40-54 [facility] Comment on above: Order Comment: Order Date: 04/14/24 Order Info: 666-06 - BMP Performed By: #### L 500.2500 #### [facility] [address] [place], [address] Hemoglobin (Bld) [Mass/Vol] 11.8 g/dL Low 13.0-16.5 [facility] Comment on above: Order Comment: Order Date: 04/14/24 Order Info: 666-06 - BMP Performed By: #### L 500.2500 #### [facility] Laboratory [address] [place], [address] IG% 0.300 Normal 0.0-0.9 [facility] Comment on above: Order Comment: Order Date: 04/14/24 Order Info: 666-06 - BMP Result Comment: IG% - Immature Granulocytes (promyelocytes, myelocytes and metamyelocytes) > 1% indicates that a LEFT SHIFT is Present. Performed By: #### L 500.2500 #### [facility] Laboratory [address] [place], [address] Lymphocytes/100 WBC (Bld) 18.1 % Low 19-41 [facility] Comment on above: Order Comment: Order Date: 04/14/24 Order Info: 666-06 - BMP Performed By: #### L 500.2500 #### [facility] Laboratory [address] [place], [address] MCH (RBC) [Entitic mass] 31.6 pg Normal 27.0-32.0 [facility] Comment on above: Order Comment: Order Date: 04/14/24 Order Info: 666-06 - BMP Performed By: #### L 500.2500 #### [facility] Laboratory [address] [place], [address] MCHC (RBC) [Mass/Vol] 33.3 g/dL Normal 32-36 [facility] Comment on above: Order Comment: Order Date: 04/14/24 Order Info: 666-06 - BMP Performed By: #### L 500.2500 #### [facility] Laboratory [address] [place], [address] MCV (RBC) [Entitic vol] 94.9 fL High 80-94 [facility] Comment on above: Order Comment: Order Date: 04/14/24 Order Info: 666-06 - BMP Performed By: #### L 500.2500 #### [facility] Laboratory [address] [place], [address] Monocytes/100 WBC (Bld) 8.3 % Normal 0-10 [facility] Comment on above: Order Comment: Order Date: 04/14/24 Order Info: 666-06 - BMP Performed By: #### L 500.2500 #### [facility] Laboratory [address] [place], [address] Neutrophils/100 WBC (Bld) 69.8 % Normal 47-70 [facility] Comment on above: Order Comment: Order Date: 04/14/24 Order Info: 666-06 - BMP Performed By: #### L 500.2500 #### [facility] Laboratory [address] [place], [address] Nucleated RBC (Bld) [#/Vol] 0 10*3/uL Normal 0-5 [facility] Comment on above: Order Comment: Order Date: 04/14/24 Order Info: 666-06 - BMP Performed By: #### L 500.2500 #### [facility] Laboratory [address] [place], [address] Platelet mean volume (Bld) [Entitic vol] 8.8 fL Normal 6.2-12.0 [facility] Comment on above: Order Comment: Order Date: 04/14/24 Order Info: 666-06 - BMP Performed By: #### L 500.2500 #### [facility] Laboratory [address] [place], [address] Platelets (Bld) [#/Vol] 311 10*3/uL Normal 150-450 [facility] Comment on above: Order Comment: Order Date: 04/14/24 Order Info: 666-06 - BMP Performed By: #### L 500.2500 #### [facility] Laboratory [address] [place], [address] RBC (Bld) [#/Vol] 3.73 10*6/uL Low 4.6-6.2 [facility] Comment on above: Order Comment: Order Date: 04/14/24 Order Info: 666-06 - BMP Performed By: #### L 500.2500 #### [facility] Laboratory [address] [place], [address] RDW SD 43.3 fl Normal 35.1-43.9 [facility] Comment on above: Order Comment: Order Date: 04/14/24 Order Info: 666-06 - BMP Performed By: #### L 500.2500 #### [facility] Laboratory [address] [place], [address] WBC (Bld) [#/Vol] 6.8 10*3/uL Normal 4.4-11.0 [facility] Comment on above: Order Comment: Order Date: 04/14/24 Order Info: 666-06 - BMP Performed By: #### L 500.2500 #### [facility] Laboratory [address] [place], [address] Comprehensive Metabolic Prof [facility] 05-09-2024 Albumin [Mass/Vol] 3.9 g/dL Normal 3.2-5.0 [facility] Comment on above: Order Comment: Order Date: 04/14/24 Order Info: 666-06 - BMP Performed By: #### L 500.2500 #### [facility] Laboratory [address] [place], [address] Albumin/Globulin [Mass ratio] 1.1 {ratio} Normal 0.9-2.4 [facility] Comment on above: Order Comment: Order Date: 04/14/24 Order Info: 666-06 - BMP Performed By: #### L 500.2500 #### [facility] [address] [place], [address] ALK P 53 U/L Normal 45-117 [facility] Comment on above: Order Comment: Order Date: 04/14/24 Order Info: 666-06 - BMP Performed By: #### L 500.2500 #### [facility] Laboratory [address] [place], [address] ALT [Catalytic activity/Vol] 25 U/L Normal 16-61 [facility] Comment on above: Order Comment: Order Date: 04/14/24 Order Info: 666-06 - BMP Performed By: #### L 500.2500 #### [facility] [address] [place], [address] AST [Catalytic activity/Vol] 13 U/L Low 15-37 [facility] Comment on above: Order Comment: Order Date: 04/14/24 Order Info: 666-06 - BMP Performed By: #### L 500.2500 #### [facility] Laboratory [address] [place], [address] Bilirubin [Mass/Vol] 0.40 mg/dL Normal 0.20-1.00 [facility] Comment on above: Order Comment: Order Date: 04/14/24 Order Info: 666-06 - BMP Result Comment: For patients on eltrombopag therapy, use of Dimension [place] TBIL is not recommended. Performed By: #### L 500.2500 #### [facility] Laboratory [address] [place], [address] BUN/CRE 22.8 RATIO High 10-20 [facility] Comment on above: Order Comment: Order Date: 04/14/24 Order Info: 666-06 - BMP Performed By: #### L 500.2500 #### [facility] [address] [place], [address] CA,Total 9.5 mg/dL Normal 8.5-10.1 [facility] Comment on above: Order Comment: Order Date: 04/14/24 Order Info: 666-06 - BMP Performed By: #### L 500.2500 #### [facility] Laboratory [address] [place], [address] Chloride [Moles/Vol] 96 mmol/L Low 98-107 [facility] Comment on above: Order Comment: Order Date: 04/14/24 Order Info: 666-06 - BMP Performed By: #### L 500.2500 #### [facility] [address] [place], [address] CO2 [Moles/Vol] 26.0 mmol/L Normal 21.0-32.0 [facility] Comment on above: Order Comment: Order Date: 04/14/24 Order Info: 666-06 - BMP Performed By: #### L 500.2500 #### [facility] Laboratory [address] [place], [address] Creatinine [Mass/Vol] 1.36 mg/dL High 0.70-1.30 [facility] Comment on above: Order Comment: Order Date: 04/14/24 Order Info: 666-06 - BMP Result Comment: The validity of the calculated GFR GFRAA in patients over 70 years has not been determined. Clinical correlation is essential. Performed By: #### L 500.2500 #### [facility] [address] [place], [address] EST GFR - AA 66 mL/min Normal >60 [facility] Comment on above: Order Comment: Order Date: 04/14/24 Order Info: 666-06 - [facility] Result Comment: Afri can Somali GFR Calc Performed By: #### L 500.2500 #### [facility] Laboratory [address] [place], [address] GAP 7 Normal 5-15 [facility] Comment on above: Order Comment: Order Date: 04/14/24 Order Info: 666-06 - BMP Performed By: #### L 500.2500 #### [facility] Laboratory [address] [place], [address] GFR/1.73 sq M.predicted among non-blacks MDRD (S/P/Bld) [Vol rate/Area] 55 mL/min/{1.73_m2} Low >60 [facility] Comment on above: Order Comment: Order Date: 04/14/24 Order Info: 666-06 - BMP Result Comment: Non- GFR Calc Performed By: #### L 500.2500 #### [facility] [address] [place], [address] Globulin (S) [Mass/Vol] 3.7 g/dL Normal 2.2-4.2 [facility] Comment on above: Order Comment: Order Date: 04/14/24 Order Info: 06 - BMP Performed By: #### L 500.2500 #### [facility] [address] [place], [address] Glucose [Mass/Vol] 126 mg/dL High 74-106 [facility] Comment on above: Order Comment: Order Date: 04/14/24 Order Info: 666-06 - BMP Result Comment: Fast ing Glucose result greater than or equal to 126 mg/dL suggests DIABETES MELLITUS per A.D.A. criteria. Performed By: #### L 500.2500 #### [facility] [address] [place], [address] Potassium [Moles/Vol] 5.1 mmol/L Normal 3.5-5.1 [facility] Comment on above: Order Comment: Order Date: 04/14/24 Order Info: 06 - BMP Performed By: #### L 500.2500 #### [facility] [address] [place], [address] Sodium [Moles/Vol] 129 mmol/L Low 136-145 [facility] Comment on above: Order Comment: Order Date: 04/14/24 Order Info: 0667 - BMP Performed By: #### L 500.2500 #### [facility] [address] [place], [address] T PROT 7.6 g/dL Normal 6.4-8.2 [facility] Comment on above: Order Comment: Order Date: 04/14/24 Order Info: 0667 - BMP Performed By: #### L 500.2500 #### [facility] [address] [place], [address] Urea nitrogen [Mass/Vol] 31 mg/dL High 01-12 [facility] Comment on above: Order Comment: Order Date: 04/14/24 Order Info: 0667-1 - BMP Performed By: #### L 500.2500 #### [facility] [address] [place], [address] Magnesiumon 05-09-2024 Magnesium [Mass/Vol] 1.7 mg/dL Normal 1.6-2.6 [facility] Comment on above: Order Comment: Order Date: 04/14/24 Order Info: 0667- - BMP Performed By: #### L 500.2500 #### [facility] [address] [place], [address] Osmolality, Serumon 05-09-20 OSMOLALITY,SER 292 mOsm/KG Normal 280-301 [facility] Comment on above: Order Comment: Inter face Comments: standing order Order Date: 03/28/24 Order Info: 0667-1 - BMP Annual exam Order Date: 04/11/24 Order Info: 66732-3 - LIPID Comments: annual annual Performed By: #### L 500.2500 #### [facility] [address] [place], [address] Thyroid Stim Hormone (TSH)on 05-09-2024 TSH 0.453 uIU/mL Normal 0.358-3.74 0 [facility] Comment on above: Order Comment: Inter face Comments: standing order Order Date: 03/28/24 Order Info: 0667-1 - BMP Annual exam Order Date: 04/11/24 Order Info: 03669-1 - LIPID Comments: annual annual Performed By: #### L 500.2500 #### [facility] Laboratory [address] [place], [address] Basic Metabolic Profile (BMP )on 04-21-2024 BUN/CRE 17.5 RATIO Normal 04-16 [facility] Comment on above: Performed By: #### L 500.2500 #### [facility] Laboratory [address] [place], [address] CA,Total 9.4 mg/dL Normal 8.5-10.1 [facility] Comment on above: Performed By: #### L 500.2500 #### [facility] Laboratory [address] [place], [address] Chloride [Moles/Vol] 102 mmol/L Normal 98-107 [facility] Comment on above: Performed By: #### L 500.2500 #### [facility] [address] [place], [address] CO2 [Moles/Vol] 28.0 mmol/L Normal 21.0-32.0 [facility] Comment on above: Performed By: #### L 500.2500 #### [facility] [address] [place], [address] Creatinine [Mass/Vol] 1.26 mg/dL Normal 0.70-1.30 [facility] Comment on above: Result Comment: The validity of the calculated GFR GFRAA in patients over 70 years has not been determined. Clinical correlation is essential. Performed By: #### L 500.2500 #### [facility] [address] [place], [address] EST GFR - AA 72 mL/min Normal >60 [facility] Comment on above: Result Comment: Afri can Somali GFR Calc Performed By: #### L 500.2500 #### [facility] [address] [place], [address] GAP 6 Normal 5-15 [facility] Comment on above: Performed By: #### L 500.2500 #### [facility] Laboratory [address] [place], [address] GFR/1.73 sq M.predicted among non-blacks MDRD (S/P/Bld) [Vol rate/Area] 60 mL/min/{1.73_m2} Normal >60 [facility] Comment on above: Result Comment: Non- GFR Calc Performed By: #### L 500.2500 #### [facility] Laboratory [address] [place], [address] Glucose [Mass/Vol] 149 mg/dL High 74-106 [facility] Comment on above: Result Comment: Fast ing Glucose result greater than or equal to 126 mg/dL suggests DIABETES MELLITUS per A.D.A. criteria. Performed By: #### L 500.2500 #### [facility] [address] [place], [address] Potassium [Moles/Vol] 4.8 mmol/L Normal 3.5-5.1 [facility] Comment on above: Performed By: #### L 500.2500 #### [facility] Laboratory [address] [place], [address] Sodium [Moles/Vol] 135 mmol/L Low 136-145 [facility] Comment on above: Performed By: #### L 500.2500 #### [facility] [address] [place], [address] Urea nitrogen [Mass/Vol] 22 mg/dL High 7-18 [facility] Comment on above: Performed By: #### L 500.2500 #### [facility] [address] [place], [address] Foot min 3 Viewson 4 Foot min [address] [facility] [address] [place] [address] Foot min 3 Views MR#: [id number] Acct: [id number] Name: OSMAN PADGETT Rep #: [id number] : 1950 M 74 From: Nikko Desouza PCP: Dr. 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 No radiopaque foreign body. BONES/JOINTS: No acute fracture or subluxation.. Plantar calcaneal spur. Flattening of the plantar arch. Preservation of the joint space.. No sclerotic or destructive changes observed. RAD/Foot min 3 Views IMPRESSION: Plantar calcaneal spur. No demonstrated acute osseous changes. Electronically Signed: Nikko Harrison MD at 11:36 EDT , CC: DPLeslie Neri; Dr. Lenin Hidalgo MD Continuous Improvement Director: Signed Normal [facility] Comprehensive Metabolic Prof ilon 03-28-2024 Albumin [Mass/Vol] 3.7 g/dL Normal 3.2-5.0 [facility] Comment on above: Order Comment: Order Date: 03/14/24Order Info: 0667-1 - BMP Performed By: #### L 500.4050, L501.2450, L501.5200, L506.1001 #### [facility] Laboratory [address] [place], [address] Albumin/Globulin [Mass ratio] 1.1 {ratio} Normal 0.9-2.4 [facility] Comment on above: Order Comment: Order Date: 03/14/24Order Info: 0667-1 - BMP Performed By: #### L 500.4050, L501.2450, L501.5200, L506.1001 #### [facility] [address] [place], [address] ALK P 46 U/L Normal 45-117 [facility] Comment on above: Order Comment: Order Date: 03/14/24Order Info: 0667-1 - BMP Performed By: #### L 500.4050, L501.2450, L501.5200, L506.1001 #### [facility] [address] [place], [address] ALT [Catalytic activity/Vol] 18 U/L Normal 16-61 [facility] Comment on above: Order Comment: Order Date: 03/14/24Order Info: 06 - BMP Performed By: #### L 500.4050, L501.2450, L501.5200, L506.1001 #### [facility] Laboratory [address] [place], [address] AST [Catalytic activity/Vol] 12 U/L Low 15-37 [facility] Comment on above: Order Comment: Order Date: 03/14/24Order Info: 06 - BMP Performed By: #### L 500.4050, L501.2450, L501.5200, L506.1001 #### [facility] [address] [place], [address] Bilirubin [Mass/Vol] 0.30 mg/dL Normal 0.20-1.00 [facility] Comment on above: Order Comment: Order Date: 03/14/24Order Info: 0667- - BMP Result Comment: For patients on eltrombopag therapy, use of Dimension [place] TBIL is not recommended. Performed By: #### L 500.4050, L501.2450, L501.5200, L506.1001 #### [facility] [address] [place], [address] BUN/CRE 20.3 RATIO High 10-20 [facility] Comment on above: Order Comment: Order Date: 03/14/24Order Info: 0667- - BMP Performed By: #### L 500.4050, L501.2450, L501.5200, L506.1001 #### [facility] [address] [place], [address] CA,Total 9.6 mg/dL Normal 8.5-10.1 [facility] Comment on above: Order Comment: Order Date: 03/14/24Order Info: 0667-1 - BMP Performed By: #### L 500.4050, L501.2450, L501.5200, L506.1001 #### [facility] [address] [place], [address] Chloride [Moles/Vol] 100 mmol/L Normal 98-107 [facility] Comment on above: Order Comment: Order Date: 03/14/24Order Info: 0667 - BMP Performed By: #### L 500.4050, L501.2450, L501.5200, L506.1001 #### [facility] [address] [place], [address] CO2 [Moles/Vol] 26.0 mmol/L Normal 21.0-32.0 [facility] Comment on above: Order Comment: Order Date: 03/14/24Order Info: 0667 - BMP Performed By: #### L 500.4050, L501.2450, L501.5200, L506.1001 #### [facility] [address] [place], [address] Creatinine [Mass/Vol] 1.28 mg/dL Normal 0.70-1.30 [facility] Comment on above: Order Comment: Order Date: 03/14/24Order Info: 0667-1 - BMP Result Comment: The validity of the calculated GFR GFRAA in patients over 70 years has not been determined. Clinical correlation is essential. Performed By: #### L 500.4050, L501.2450, L501.5200, L506.1001 #### [facility] [address] [place], [address] EST GFR - AA 71 mL/min Normal >60 [facility] Comment on above: Order Comment: Order Date: 03/14/24Order Info: 0667-1 - BMP Result Comment: Afri can Somali GFR Calc Performed By: #### L 500.4050, L501.2450, L501.5200, L506.1001 #### [facility] [address] [place], [address] GAP 7 Normal 5-15 [facility] Comment on above: Order Comment: Order Date: 03/14/24Order Info: 0667- - BMP Performed By: #### L 500.4050, L501.2450, L501.5200, L506.1001 #### [facility] [address] [place], [address] GFR/1.73 sq M.predicted among non-blacks MDRD (S/P/Bld) [Vol rate/Area] 59 mL/min/{1.73_m2} Low >60 [facility] Comment on above: Order Comment: Order Date: 03/14/24Order Info: 0667- - BMP Result Comment: Non- GFR Calc Performed By: #### L 500.4050, L501.2450, L501.5200, L506.1001 #### [facility] [address] [place], [address] Globulin (S) [Mass/Vol] 3.5 g/dL Normal 2.2-4.2 [facility] Comment on above: Order Comment: Order Date: 03/14/24Order Info: 0667-1 - BMP Performed By: #### L 500.4050, L501.2450, L501.5200, L506.1001 #### [facility] [address] [place], [address] Glucose [Mass/Vol] 168 mg/dL High 74-106 [facility] Comment on above: Order Comment: Order Date: 03/14/24Order Info: 0667-1 - BMP Result Comment: Fast ing Glucose result greater than or equal to 126 mg/dL suggests DIABETES MELLITUS per A.D.A. criteria. Performed By: #### L 500.4050, L501.2450, L501.5200, L506.1001 #### [facility] [address] [place], [address] Potassium [Moles/Vol] 4.3 mmol/L Normal 3.5-5.1 [facility] Comment on above: Order Comment: Order Date: 03/14/24Order Info: 0667- - BMP Performed By: #### L 500.4050, L501.2450, L501.5200, L506.1001 #### [facility] [address] [place], [address] Sodium [Moles/Vol] 133 mmol/L Low 136-145 [facility] Comment on above: Order Comment: Order Date: 03/14/24Order Info: 0667- - BMP Performed By: #### L 500.4050, L501.2450, L501.5200, L506.1001 #### [facility] [address] [place], [address] T PROT 7.2 g/dL Normal 6.4-8.2 [facility] Comment on above: Order Comment: Order Date: 03/14/24Order Info: 0667- - BMP Performed By: #### L 500.4050, L501.2450, L501.5200, L506.1001 #### [facility] [address] [place], [address] Urea nitrogen [Mass/Vol] 26 mg/dL High 7-18 [facility] Comment on above: Order Comment: Order Date: 03/14/24Order Info: 0667- - BMP Performed By: #### L 500.4050, L501.2450, L501.5200, L506.1001 #### [facility] [address] [place], [address] Hemoglobin A1con 03-28-2024 HbA1c (Bld) [Mass fraction] 6.8 % High 3.8-5.6 [facility] Comment on above: Result Comment: Norm al < 5.7 % Prediabetic 5.7 - 6.4 % Diabetic >or= 6.5 % Please note range changes. Performed By: #### L 500.4050, L501.2450, L501.5200, [id number] #### [facility] [address] [place], [address] Osmolality, Serumon 03-28-20 24 OSMOLALITY,SER 295 mOsm/KG Normal 280-301 [facility] Comment on above: Performed By: #### L 500.4050, L501.2450, L501.5200, [id number] #### [facility] [address] [place], [address] Osmolality, Urineon 03-28-20 24 OSMOLALITY,UR 416 mOsm/KG Normal [facility] Comment on above: Result Comment: Normal Urine Reference Ranges Random: 50 - 1200 mOsm/kg H20 depending on fluid intake Random: >850 mOsm/kg after 12 hour fluid restriction 24 hour: 300 - 900 mOsm/kg H2O Performed By: #### L 500.4050, L501.2450, L501.5200, [id number] #### [facility] [address] [place], [address] Urine Sodiumon 03-28-2024 Sodium (U) [Moles/Vol] 65 mmol/L Normal Not Establ. [facility] Comment on above: Performed By: #### L 500.4050, L501.2450, L501.5200, [id number] #### [facility] [address] [place], [address] Basic Metabolic Profile (BMP )on 03-14-2024 BUN Normal 7-18 [facility] Comment on above: Order Comment: Order Date: 03/14/24Order Info: [id number] - BMP Result Comment: CMP ALREADY ORDERED-DUPLICATE TESTS Performed By: #### L 500.4050, L501.2450, L501.5200, [id number] #### [facility] [address] [place], [address] BUN/CRE Normal 10-20 [facility] Comment on above: Order Comment: Order Date: 03/14/24Order Info: 06- - BMP Result Comment: CMP ALREADY ORDERED-DUPLICATE TESTS Performed By: #### L 500.4050, L501.2450, L501.5200, [id number] #### [facility] [address] [place], [address] CA,Total Normal 8.5-10.1 [facility] Comment on above: Order Comment: Order Date: 03/14/24Order Info: 06- - BMP Result Comment: CMP ALREADY ORDERED-DUPLICATE TESTS Performed By: #### L 500.4050, L501.2450, L501.5200, [id number] #### [facility] [address] [place], [address] CL Normal 98-107 [facility] Comment on above: Order Comment: Order Date: 03/14/24Order Info: 06- - BMP Result Comment: CMP ALREADY ORDERED-DUPLICATE TESTS Performed By: #### L 500.4050, L501.2450, L501.5200, [id number] #### [facility] [address] [place], [address] CO2 Normal 21.0-32.0 [facility] Comment on above: Order Comment: Order Date: 03/14/24Order Info: 0667- - BMP Result Comment: CMP ALREADY ORDERED-DUPLICATE TESTS Performed By: #### L 500.4050, L501.2450, L501.5200, [id number] #### [facility] [address] [place], [address] CREAT,SERUM Normal 0.70-1.30 [facility] Comment on above: Order Comment: Order Date: 03/14/24Order Info: [id number] - BMP Result Comment: CMP ALREADY ORDERED-DUPLICATE TESTS Performed By: #### L 500.4050, L501.2450, L501.5200, [id number] #### [facility] [address] [place], [address] EST GFR Normal >60 [facility] Comment on above: Order Comment: Order Date: 03/14/24Order Info: 666- - BMP Result Comment: CMP ALREADY ORDERED-DUPLICATE TESTS Performed By: #### L 500.4050, L501.2450, L501.5200, [id number] #### [facility] [address] [place], [address] EST GFR - AA Normal >60 [facility] Comment on above: Order Comment: Order Date: 03/14/24Order Info: [id number] - BMP Result Comment: CMP ALREADY ORDERED-DUPLICATE TESTS Performed By: #### L 500.4050, L501.2450, L501.5200, [id number] #### [facility] [address] [place], [address] GAP Normal 5-15 [facility] Comment on above: Order Comment: Order Date: 03/14/24Order Info: [id number] - BMP Result Comment: CMP ALREADY ORDERED-DUPLICATE TESTS Performed By: #### L 500.4050, L501.2450, L501.5200, [id number] #### [facility] [address] [place], [address] GLU Normal 74-106 [facility] Comment on above: Order Comment: Order Date: 03/14/24Order Info: 666- - BMP Result Comment: CMP ALREADY ORDERED-DUPLICATE TESTS Performed By: #### L 500.4050, L501.2450, L501.5200, [id number] #### [facility] [address] [place], [address] Potassium Normal 3.5-5.1 [facility] Comment on above: Order Comment: Order Date: 03/14/24Order Info: [id number] - BMP Result Comment: CMP ALREADY ORDERED-DUPLICATE TESTS Performed By: #### L 500.4050, L501.2450, L501.5200, [id number] #### [facility] [address] [place], [address] Basic Metabolic Profile (BMP) Normal 136-145 [facility] Comment on above: Order Comment: Order Date: 03/14/24Order Info: [id number] - BMP Result Comment: CMP ALREADY ORDERED-DUPLICATE TESTS Performed By: #### L 500.4050, L501.2450, L501.5200, [id number] #### [facility] [address] [place], [address] Comprehensive Metabolic Prof ilon 03-14-2024 Albumin [Mass/Vol] 3.7 g/dL Normal 3.2-5.0 [facility] Comment on above: Order Comment: Order Date: 02/14/24Order Info: [id number] - CMP Performed By: #### L 500.4050, L501.2450, L501.5200, [id number] #### [facility] [address] [place], [address] Albumin/Globulin [Mass ratio] 1.0 {ratio} Normal 0.9-2.4 [facility] Comment on above: Order Comment: Order Date: 02/14/24Order Info: 0786-1 - CMP Performed By: #### L 500.4050, L501.2450, L501.5200, [id number] #### [facility] [address] [place], [address] ALK P 48 U/L Normal 45-117 [facility] Comment on above: Order Comment: Order Date: 02/14/24Order Info: 0786-1 - CMP Performed By: #### L 500.4050, L501.2450, L501.5200, [id number] #### [facility] [address] [place], [address] ALT [Catalytic activity/Vol] 17 U/L Normal 16-61 [facility] Comment on above: Order Comment: Order Date: 02/14/24Order Info: 0786-1 - CMP Performed By: #### L 500.4050, L501.2450, L501.5200, [id number] #### [facility] [address] [place], [address] AST [Catalytic activity/Vol] 9 U/L Low 15-37 [facility] Comment on above: Order Comment: Order Date: 02/14/24Order Info: 0786-1 - CMP Performed By: #### L 500.4050, L501.2450, L501.5200, [id number] #### [facility] [address] [place], [address] Bilirubin [Mass/Vol] 0.40 mg/dL Normal 0.20-1.00 [facility] Comment on above: Order Comment: Order Date: 02/14/24Order Info: [id number] - CMP Result Comment: For patients on eltrombopag therapy, use of Dimension [place] TBIL is not recommended. Performed By: #### L 500.4050, L501.2450, L501.5200, L506.1001 #### [facility] [address] [place], [address] BUN/CRE 17.8 RATIO Normal 10-20 [facility] Comment on above: Order Comment: Order Date: 02/14/24Order Info: 0786-1 - CMP Performed By: #### L 500.4050, L501.2450, L501.5200, [id number] #### [facility] [address] [place], [address] CA,Total 9.2 mg/dL Normal 8.5-10.1 [facility] Comment on above: Order Comment: Order Date: 02/14/24Order Info: 0786-1 - CMP Performed By: #### L 500.4050, L501.2450, L501.5200, [id number] #### [facility] [address] [place], [address] Chloride [Moles/Vol] 100 mmol/L Normal 98-107 [facility] Comment on above: Order Comment: Order Date: 02/14/24Order Info: 0786-1 - CMP Performed By: #### L 500.4050, L501.2450, L501.5200, [id number] #### [facility] [address] [place], [address] CO2 [Moles/Vol] 25.0 mmol/L Normal 21.0-32.0 [facility] Comment on above: Order Comment: Order Date: 02/14/24Order Info: 0786-1 - CMP Performed By: #### L 500.4050, L501.2450, L501.5200, [id number] #### [facility] [address] [place], [address] Creatinine [Mass/Vol] 1.29 mg/dL Normal 0.70-1.30 [facility] Comment on above: Order Comment: Order Date: 02/14/24Order Info: [id number] - CMP Result Comment: The validity of the calculated GFR GFRAA in patients over 70 years has not been determined. Clinical correlation is essential. Performed By: #### L 500.4050, L501.2450, L501.5200, L506.1001 #### [facility] [address] [place], [address] EST GFR - AA 70 mL/min Normal >60 [facility] Comment on above: Order Comment: Order Date: 02/14/24Order Info: [id number] - CMP Result Comment: Afri can Somali GFR Calc Performed By: #### L 500.4050, L501.2450, L501.5200, L506.1001 #### [facility] [address] [place], [address] GAP 7 Normal 5-15 [facility] Comment on above: Order Comment: Order Date: 02/14/24Order Info: 0786-1 - CMP Performed By: #### L 500.4050, L501.2450, L501.5200, [id number] #### [facility] [address] [place], [address] GFR/1.73 sq M.predicted among non-blacks MDRD (S/P/Bld) [Vol rate/Area] 58 mL/min/{1.73_m2} Low >60 [facility] Comment on above: Order Comment: Order Date: 02/14/24Order Info: 0786-1 - CMP Result Comment: Non- GFR Calc Performed By: #### L 500.4050, L501.2450, L501.5200, L506.1001 #### [facility] [address] [place], [address] Globulin (S) [Mass/Vol] 3.6 g/dL Normal 2.2-4.2 [facility] Comment on above: Order Comment: Order Date: 02/14/24Order Info: 0786-1 - CMP Performed By: #### L 500.4050, L501.2450, L501.5200, L506.1001 #### [facility] [address] [place], [address] Glucose [Mass/Vol] 196 mg/dL High 74-106 [facility] Comment on above: Order Comment: Order Date: 02/14/24Order Info: 0786-1 - CMP Result Comment: Fast ing Glucose result greater than or equal to 126 mg/dL suggests DIABETES MELLITUS per A.D.A. criteria. Performed By: #### L 500.4050, L501.2450, L501.5200, L506.1001 #### [facility] [address] [place], [address] Potassium [Moles/Vol] 4.5 mmol/L Normal 3.5-5.1 [facility] Comment on above: Order Comment: Order Date: 02/14/24Order Info: 0786-1 - CMP Performed By: #### L 500.4050, L501.2450, L501.5200, L506.1001 #### [facility] [address] [place], [address] Sodium [Moles/Vol] 132 mmol/L Low 136-145 [facility] Comment on above: Order Comment: Order Date: 02/14/24Order Info: 0786-1 - CMP Performed By: #### L 500.4050, L501.2450, L501.5200, L506.1001 #### [facility] [address] [place], [address] T PROT 7.3 g/dL Normal 6.4-8.2 [facility] Comment on above: Order Comment: Order Date: 02/14/24Order Info: 0786-1 - CMP Performed By: #### L 500.4050, L501.2450, L501.5200, L506.1001 #### [facility] [address] [place], [address] Urea nitrogen [Mass/Vol] 23 mg/dL High 7-18 [facility] Comment on above: Order Comment: Order Date: 02/14/24Order Info: 0786-1 - CMP Performed By: #### L 500.4050, L501.2450, L501.5200, L506.1001 #### [facility] [address] [place], [address] Hemoglobin A1con 03-14-2024 HbA1c (Bld) [Mass fraction] 6.9 % High 3.8-5.6 [facility] Comment on above: Order Comment: Order Date: 02/14/24Order Info: [id number] - A1C Result Comment: Norm al < 5.7 % Prediabetic 5.7 - 6.4 % Diabetic >or= 6.5 % Please note range changes. Performed By: #### L 500.4050, L501.2450, L501.5200, L506.1001 #### [facility] [address] [place], [address] Osmolality, Serumon 03-14-20 24 OSMOLALITY,SER 294 mOsm/KG Normal 280-301 [facility] Comment on above: Order Comment: Order Date: 02/14/24Order Info: [id number] - OS Performed By: #### L 500.4050, L501.2450, L501.5200, L506.1001 #### [facility] [address] [place], [address] Osmolality, Urineon 03-14-20 24 OSMOLALITY,UR 414 mOsm/KG Normal [facility] Comment on above: Order Comment: Order Date: 02/14/24Order Info: [id number] - NAUOrder Info: 2695-5 - [facility] Result Comment: Normal Urine Reference Ranges Random: 50 - 1200 mOsm/kg H20 depending on fluid intake Random: >850 mOsm/kg after 12 hour fluid restriction 24 hour: 300 - 900 mOsm/kg H2O Performed By: #### L 500.4050, L501.2450, L501.5200, L506.1001 #### [facility] [address] [place], [address] Urine Sodiumon 03-14-2024 Sodium (U) [Moles/Vol] 89 mmol/L Normal Not Establ. [facility] Comment on above: Order Comment: Order Date: 02/14/24Order Info: [id number] - NAUOrder Info: [id number] - [facility] Performed By: #### L 500.4050, L501.2450, L501.5200, L506.1001 #### [facility] [address] [place], [address] Absolute lymphocyte countOrd ered By: Fredrick Dorsey on 11-07-2023 Lymphocytes Auto (Unsp spec) [#/Vol] 1.25 10*3/uL 0.83-4.51 [facility] Automated lymphocyte count a s percentage of total leukocytesOrdered By: Fredrick Vincentrus on 11-07-2023 Lymphocytes/100 WBC Auto (Unsp spec) 11.4 % 19-41 [facility] Basophil percentageOrdered B y: Fredrick Dorsey on 11-07-2023 Basophil percentage 0 SEEN /hpf 0-5 [facility] Basophils/100 WBC (Bld) 0.6 % 0-1 [facility] Bilirubin [Mass/Vol] 0.50 mg/dL 0.20-1.00 [facility] Comment on above: For patients on eltr ombopag therapy, use of Dimension [place] TBIL is not recommended. Chloride [Moles/Vol] 94 mmol/L 98-107 [facility] Eosinophils/100 WBC (Bld) 1.2 % 0-5 [facility] Glucose [Mass/Vol] 142 mg/dL 74-106 [facility] Comment on above: Fasting Glucose resu lt greater than or equal to 126 mg/dL suggests DIABETES MELLITUS per A.D.A. criteria. Hemoglobin (Bld) [Mass/Vol] 10.7 g/dL 13.0-16.5 [facility] Monocytes/100 WBC (Bld) 7.5 % 0-10 [facility] Neutrophils (Bld) [#/Vol] 8.7 10*3/uL 2.0-7.7 [facility] Neutrophils/100 WBC (Bld) 78.8 % 47-70 [facility] Potassium [Moles/Vol] 4.8 mmol/L 3.5-5.1 [facility] Protein [Mass/Vol] 7.0 g/dL 6.4-8.2 [facility] Sodium [Moles/Vol] 126 mmol/L 136-145 [facility] WBC (Bld) [#/Vol] 11.0 10*3/uL 4.4-11.0 [facility] Bilirubin Test strip Ql (U)O rdered By: Fredrick Dorsey on 11-07-2023 Bilirubin Ql (U) Negative Negative [facility] Determination of erythrocyte mean corpuscular volume (MCV)Ordered By: Fredrick Dorsey on 11-07-2023 MCV (RBC) [Entitic vol] 91.2 fL 80-94 [facility] Erythrocyte distribution wid th ratioOrdered By: Fredrick Dorsey on 11-07-2023 Erythrocyte distribution width (RBC) [Ratio] 11.6 % 11.6-14.6 [facility] Erythrocyte distribution wid th standard deviationOrdered By: Fredrick Dorsey on 11-07-2023 Erythrocyte distribution width (RBC) [Entitic vol] 38.9 fL 35.1-43.9 [facility] Hematocrit Auto (Bld) [Volum e fraction]Ordered By: Fredrick Dorsey on 11-07-2023 Hematocrit (Bld) [Volume fraction] 30.9 % 40-54 [facility] Immature granulocytes/100 WB C Auto (Bld)Ordered By: Fredrick Dorsey on 11-07-2023 Immature granulocytes/100 WBC (Bld) 0.500 % 0.0-0.9 [facility] Comment on above: IG% - Immature Granu locytes (promyelocytes, myelocytes and metamyelocytes) > 1% indicates that a LEFT SHIFT is Present. Ketones Test strip Ql (U)Ord ered By: Fredrick Dorsey on 11-07-2023 Ketones Ql (U) Negative Negative [facility] - Chemistry and C hemistry - challengeOrdered By: Fredrick Dorsey on 11-07-2023 Albumin/Globulin [Mass ratio] 1.2 {ratio} 0.9-2.4 [facility] ALP [Catalytic activity/Vol] 45 U/L 45-117 [facility] ALT [Catalytic activity/Vol] 20 U/L 16-61 [facility] CO2 [Moles/Vol] 23.0 mmol/L 21.0-32.0 [facility] Globulin (S) [Mass/Vol] 3.2 g/dL 2.2-4.2 [facility] Lipase [Catalytic activity/Vol] 30 U/L 13-75 [facility] Comment on above: Please note:LIPASE r evised reference range effective 22. New Lipase methodology. Expected to produce lower values than the previous assay method. NEW Reference Range: 13 - 75 U/L Urea nitrogen/Creatinine [Mass ratio] 21.9 mg/mg 10-20 [facility] - Drug toxicology Ordered By: Fredrick Dorsey on 11-07-2023 Amphetamines Ql (U) Negative <1000 ng/mL [facility] Benzodiazepines Ql (U) Negative < 200 ng/mL [facility] Cannabinoids Screen Ql (U) Positive < 50 ng/mL [facility] Cocaine Ql (U) Negative < 300 ng/mL [facility] Opiates Ql (U) Negative < 300 ng/mL [facility] - Hematology and Cell countsOrdered By: Fredrick Dorsey on 11-07-2023 MCH (RBC) [Entitic mass] 31.6 pg 27.0-32.0 [facility] MCHC (RBC) [Mass/Vol] 34.6 g/dL 32-36 [facility] Nucleated RBC/100 WBC (Bld) [Ratio] 0 % 0-5 [facility] Platelet mean volume (Bld) [Entitic vol] 8.3 fL 6.2-12.0 [facility] Platelets (Bld) [#/Vol] 289 10*3/uL 150-450 [facility] Mucus LM Ql (Urine sed)Order ed By: Fredrick Dorsey on 11-07-2023 Mucus Ql (Urine sed) 0 SEEN /hpf [facility] Nitrite Test strip Ql (U)Ord ered By: Fredrick Dorsey on 11-07-2023 Nitrite Ql (U) Negative Negative [facility] No Panel InformationOrdered By: Fredrick Dorsey on 11-07-2023 MDMA (Ecstasy) Screen Negative < 500 ng/mL [facility] Urine Barbiturates Screen Negative < 200 ng/mL [facility] Urine Drug Screen Comment [facility] Comment on above: CONFIRMATORY TESTING FOR ALL POSITIVE URINE DRUG SCREENRESULTS WILL ONLY BE SENT OUT UPON PHYSICIAN ORDER. VISTA Urine Drug Screen methods provide only preliminaryanalytical test results. A more specific alternate chemicalmethod must be used in order to obtain a confirmedanalytical result. Gas chromatography/mass spectrometery(GC/MS) is the preferred confirmatory method. Clinicalconsideration and professional judgement should be appliedto any drug of abuse test result, particularly whenpreliminary positive results are used. URINE TCA TESTING MUST BE ORDERED SEPARATELY. USE TESTMNEMONIC: [facility] Urine Methadone Screen Negative < 300 ng/mL [facility] Urine RBC 0 SEEN /hpf 0-5 [facility] Estimated Creatinine Clearance Calc 80.51 ml/min [facility] Estimated GFR (MDRD) Amer 89 mL/min >60 [facility] Comment on above: GFR Calc Estimated GFR (MDRD) Non-Af Amer 74 mL/min >60 [facility] Comment on above: Non- GFR Calc Ethyl Alcohol Level < 3.0 mg/dL [facility] Comment on above: The serum:whole bloo d ethanol ratio is approximately 1.14and varies slightly with hematocrit. Medical Alcohol reference interval and critical value innon-tolerant individuals; 50 - 100 Impairment 100 Intoxication 100 - 250 Severe Poisoning 250 - 400 Deep/possible fatal coma Free Triiodothyronine (T3) pg/dL 3.4 pg/mL 2.18-3.98 [facility] Troponin I High Sensitivity 13 pg/mL 3.0-78.0 [facility] Comment on above: Please Note: New Jeni t Units and Gender Specific Reference Ranges. For more information see Policy Stat Procedure [place] High Sensitivity Troponin (TNIH) and attachments. Protein Test strip Ql (U)Ord ered By: Fredrick Dorsey on 11-07-2023 Protein Ql (U) Negative Negative [facility] RBC Auto (Bld) [#/Vol]Ordere d By: Fredrick Dorsey on 11-07-2023 RBC (Bld) [#/Vol] 3.39 10*6/uL 4.6-6.2 [facility] Serum or plasma calcium kay urement (mass/volume)Ordered By: Fredrick Dorsey on 11-07-2023 Calcium [Mass/Vol] 8.9 mg/dL 8.5-10.1 [facility] Serum or plasma creatinine m easurement (mass/volume)Ordered By: Fredrick Dorsey on 11-07-2023 Creatinine [Mass/Vol] 1.05 mg/dL 0.70-1.30 [facility] Comment on above: The validity of the calculated GFR & GFRAA in patients over 70 years has not been determined. Clinical correlation is essential. Serum or plasma thyroid stim ulating hormone (TSH) measurement (units/volume)Ordered By: Fredrick Dorsey on 11-07-2023 TSH Qn 0.26 uIU/mL 0.358-3.74 [facility] Serum or plasma urea nitroge n measurement (mass/volume)Ordered By: Fredrick Dorsey on 11-07-2023 Urea nitrogen [Mass/Vol] 23 mg/dL 7-18 [facility] Squamous epithelial cells de tection in urine sediment by light microscopyOrdered By: Fredrick Dorsey on 11-07-2023 Epithelial cells.squamous LM Ql (Urine sed) 0 SEEN /hpf 0-5 [facility] Thin prep Papanicolaou smear with manual screeningOrdered By: Fredrick Dorsey on 11-07-2023 Thin prep Papanicolaou smear with manual screening 3.8 g/dL 3.2-5.0 [facility] Thin prep Papanicolaou smear with manual screening 16 U/L 15-37 [facility] Thin prep Papanicolaou smear with manual screening 9 5-15 [facility] Thin prep Papanicolaou smear with manual screening 1.01 ng/dL 0.76-1.46 [facility] Urine blood detectionOrdered By: Fredrick Dorsey on 11-07-2023 RBC Ql (U) Negative Negative [facility] Urine clarityOrdered By: Cory Dorsey on 11-07-2023 Clarity (U) Clear Clear [facility] Urine color determinationOrd ered By: Fredrick Dorsey on 11-07-2023 Color (U) Straw Yellow [facility] Urine glucose detectionOrder ed By: Fredrick Dorsey on 11-07-2023 Glucose Ql (U) Normal mg/dl Normal [facility] Urine leukocyte esterase det ection by dipstickOrdered By: Fredrick Dorsey on 11-07-2023 Leukocyte esterase Test strip Ql (U) Negative Negative [facility] Urine pHOrdered By: Fredrick storey on 11-07-2023 pH (U) 7.0 [pH] 5.0 - 8.0 [facility] Urine phencyclidine (PCP) de tectionOrdered By: Fredrick Dorsey on 11-07-2023 Phencyclidine Ql (U) Negative < 25 ng/mL [facility] Urine sediment bacteria coun t by microscopy (number/high power field)Ordered By: Fredrick Dorsey on 11-07-2023 Bacteria LM.HPF (Urine sed) [#/Area] 0 /[HPF] None Seen [facility] Urine specific gravity measu rementOrdered By: Fredrick Dorsey on 11-07-2023 Specific gravity (U) [Rel density] 1.020 1.002-1.03 0 [facility] Urine urobilinogen measureme ntOrdered By: Fredrick Dorsey on 11-07-2023 Urobilinogen Ql (U) Normal mg/dl Normal [facility] Basophil percentageOrdered B y: Noble Figueroa on 11-06-2023 Bilirubin [Mass/Vol] 0.30 mg/dL 0.20-1.00 [facility] Comment on above: For patients on eltr ombopag therapy, use of Dimension [place] TBIL is not recommended. Chloride [Moles/Vol] 97 mmol/L 98-107 [facility] Glucose [Mass/Vol] 248 mg/dL 74-106 [facility] Comment on above: Glucose result great er than or equal to 200 mg/dLsuggests DIABETES MELLITUS per A.D.A. criteria. Hemoglobin (Bld) [Mass/Vol] 11.1 g/dL 13.0-16.5 [facility] Potassium [Moles/Vol] 5.1 mmol/L 3.5-5.1 [facility] Protein [Mass/Vol] 7.2 g/dL 6.4-8.2 [facility] Sodium [Moles/Vol] 128 mmol/L 136-145 [facility] WBC (Bld) [#/Vol] 9.8 10*3/uL 4.4-11.0 [facility] Determination of erythrocyte mean corpuscular volume (MCV)Ordered By: Noble Figueroa on 11-06-2023 MCV (RBC) [Entitic vol] 92.8 fL 80-94 [facility] Erythrocyte distribution wid th ratioOrdered By: Noble Figueroa on 11-06-2023 Erythrocyte distribution width (RBC) [Ratio] 11.9 % 11.6-14.6 [facility] Erythrocyte distribution wid th standard deviationOrdered By: Noble Figueroa on 11-06-2023 Erythrocyte distribution width (RBC) [Entitic vol] 40.7 fL 35.1-43.9 [facility] Hematocrit Auto (Bld) [Volum e fraction]Ordered By: Noble Figueroa on 11-06-2023 Hematocrit (Bld) [Volume fraction] 32.3 % 40-54 [facility] Laboratory - Chemistry and C hemistry - challengeOrdered By: Noble Figueroa on 11-06-2023 Albumin/Globulin [Mass ratio] 1.1 {ratio} 0.9-2.4 [facility] ALP [Catalytic activity/Vol] 46 U/L 45-117 [facility] ALT [Catalytic activity/Vol] 18 U/L 16-61 [facility] CO2 [Moles/Vol] 24.0 mmol/L 21.0-32.0 [facility] Globulin (S) [Mass/Vol] 3.5 g/dL 2.2-4.2 [facility] Lipase [Catalytic activity/Vol] 39 U/L 13-75 [facility] Comment on above: Please note:LIPASE r evised reference range effective 22. New Lipase methodology. Expected to produce lower values than the previous assay method. NEW Reference Range: 13 - 75 U/L Urea nitrogen/Creatinine [Mass ratio] 21.8 mg/mg 10-20 [facility] Laboratory - Hematology and Cell countsOrdered By: Noble Figueroa on 11-06-2023 MCH (RBC) [Entitic mass] 31.9 pg 27.0-32.0 [facility] MCHC (RBC) [Mass/Vol] 34.4 g/dL 32-36 [facility] Platelet mean volume (Bld) [Entitic vol] 8.4 fL 6.2-12.0 [facility] Platelets (Bld) [#/Vol] 297 10*3/uL 150-450 [facility] No Panel InformationOrdered By: Noble Figueroa on 11-06-2023 Estimated Creatinine Clearance Calc 51.61 ml/min [facility] Estimated GFR (MDRD) Amer 63 mL/min >60 [facility] Comment on above: GFR Calc Estimated GFR (MDRD) Non-Af Amer 52 mL/min >60 [facility] Comment on above: Non- GFR Calc Troponin I High Sensitivity 9 pg/mL 3.0-78.0 [facility] Comment on above: Please Note: New Jeni t Units and Gender Specific Reference Ranges. For more information see Policy Stat Procedure [place] High Sensitivity Troponin (TNIH) and attachments. RBC Auto (Bld) [#/Vol]Ordere d By: Noble Figueroa on 11-06-2023 RBC (Bld) [#/Vol] 3.48 10*6/uL 4.6-6.2 [facility] Serum or plasma calcium kay urement (mass/volume)Ordered By: Noble Figueroa on 11-06-2023 Calcium [Mass/Vol] 8.9 mg/dL 8.5-10.1 [facility] Serum or plasma creatinine m easurement (mass/volume)Ordered By: Nolbe Figueroa on 11-06-2023 Creatinine [Mass/Vol] 1.42 mg/dL 0.70-1.30 [facility] Comment on above: The validity of the calculated GFR & GFRAA in patients over 70 years has not been determined. Clinical correlation is essential. Serum or plasma urea nitroge n measurement (mass/volume)Ordered By: Noble Figueroa on 11-06-2023 Urea nitrogen [Mass/Vol] 31 mg/dL 7-18 [facility] Thin prep Papanicolaou smear with manual screeningOrdered By: Noble Figueroa on 11-06-2023 Thin prep Papanicolaou smear with manual screening 3.7 g/dL 3.2-5.0 [facility] Thin prep Papanicolaou smear with manual screening 11 U/L 15-37 [facility] Thin prep Papanicolaou smear with manual screening 7 5-15 [facility] No Panel InformationOrdered By: Miguel Kirby on 11-05-2023 Free Triiodothyronine (T3) pg/dL 3.1 pg/mL 2.18-3.98 [facility] Serum or plasma thyroid stim ulating hormone (TSH) measurement (units/volume)Ordered By: Miguel Kirby on 11-05-2023 TSH Qn 0.34 uIU/mL 0.358-3.74 [facility] Thin prep Papanicolaou smear with manual screeningOrdered By: Miguel Kirby on 11-05-2023 Thin prep Papanicolaou smear with manual screening 0.94 ng/dL 0.76-1.46 [facility] Absolute lymphocyte countOrd ered By: Lenin Hidalgo on 11-01-2023 Lymphocytes Auto (Unsp spec) [#/Vol] 1.24 10*3/uL 0.83-4.51 [facility] Automated lymphocyte count a s percentage of total leukocytesOrdered By: Lenin Hidalgo on 11-01-2023 Lymphocytes/100 WBC Auto (Unsp spec) 21.1 % 19-41 [facility] Basophil percentageOrdered B y: Lenin Hidalgo on 11-01-2023 Basophils/100 WBC (Bld) 0.7 % 0-1 [facility] Bilirubin [Mass/Vol] 0.30 mg/dL 0.20-1.00 [facility] Comment on above: For patients on eltr ombopag therapy, use of Dimension [place] TBIL is not recommended. Chloride [Moles/Vol] 94 mmol/L 98-107 [facility] Cholesterol [Mass/Vol] 161 mg/dL <200 [facility] Comment on above: <200 mg/dL Desirable 200-240 mg/dL Borderline >240 mg/dL High Risk Eosinophils/100 WBC (Bld) 3.6 % 0-5 [facility] Glucose [Mass/Vol] 181 mg/dL 74-106 [facility] Comment on above: Fasting Glucose resu lt greater than or equal to 126 mg/dL suggests DIABETES MELLITUS per A.D.A. criteria. Hemoglobin (Bld) [Mass/Vol] 11.8 g/dL 13.0-16.5 [facility] Monocytes/100 WBC (Bld) 9.0 % 0-10 [facility] Neutrophils (Bld) [#/Vol] 3.8 10*3/uL 2.0-7.7 [facility] Neutrophils/100 WBC (Bld) 64.1 % 47-70 [facility] Potassium [Moles/Vol] 5.0 mmol/L 3.5-5.1 [facility] Protein [Mass/Vol] 7.4 g/dL 6.4-8.2 [facility] Sodium [Moles/Vol] 126 mmol/L 136-145 [facility] Triglyceride [Mass/Vol] 254 mg/dL <199 [facility] Comment on above: The drugs N-Acetylcy steine and Metamizole may falsely depress this assay.Serum Triglycerides Reference Interval Normal <150 mg/dL Borderline high 150 - 199 mg/dL High 200 - 499 mg/dL Very High > or = 500 mg/dL WBC (Bld) [#/Vol] 5.9 10*3/uL 4.4-11.0 [facility] Determination of erythrocyte mean corpuscular volume (MCV)Ordered By: Lenin Hidalgo on 11-01-2023 MCV (RBC) [Entitic vol] 91.8 fL 80-94 [facility] Erythrocyte distribution wid th ratioOrdered By: Lenin Hidalgo on 11-01-2023 Erythrocyte distribution width (RBC) [Ratio] 11.8 % 11.6-14.6 [facility] Erythrocyte distribution wid th standard deviationOrdered By: Lenin Hidalgo on 11-01-2023 Erythrocyte distribution width (RBC) [Entitic vol] 39.8 fL 35.1-43.9 [facility] Hematocrit Auto (Bld) [Volum e fraction]Ordered By: Lenin Hidalgo on 11-01-2023 Hematocrit (Bld) [Volume fraction] 34.5 % 40-54 [facility] Immature granulocytes/100 WB C Auto (Bld)Ordered By: Lenin Hidalgo on 11-01-2023 Immature granulocytes/100 WBC (Bld) 1.500 % 0.0-0.9 [facility] Comment on above: IG% - Immature Granu locytes (promyelocytes, myelocytes and metamyelocytes) > 1% indicates that a LEFT SHIFT is Present. Laboratory - Chemistry and C hemistry - challengeOrdered By: Lenin Hidalgo on 11-01-2023 Albumin/Globulin [Mass ratio] 1.1 {ratio} 0.9-2.4 [facility] ALP [Catalytic activity/Vol] 55 U/L 45-117 [facility] ALT [Catalytic activity/Vol] 20 U/L 16-61 [facility] Cholesterol in HDL [Mass/Vol] 38 mg/dL >40 [facility] Comment on above: The drugs N-Acetylcy steine and Metamizole may falsely depress this assay. Reference Range HDL <40 mg/dL Low HDL Cholesterol HDL >or= 60 mg/dL High HDL Cholesterol Cholesterol in LDL [Mass/Vol] 72 mg/dL 0-130 [facility] CO2 [Moles/Vol] 24.0 mmol/L 21.0-32.0 [facility] Globulin (S) [Mass/Vol] 3.6 g/dL 2.2-4.2 [facility] Magnesium [Mass/Vol] 1.9 mg/dL 1.6-2.6 [facility] Urea nitrogen/Creatinine [Mass ratio] 23.8 mg/mg 10-20 [facility] Laboratory - Hematology and Cell countsOrdered By: Lenin Hidalgo on 11-01-2023 MCH (RBC) [Entitic mass] 31.4 pg 27.0-32.0 [facility] MCHC (RBC) [Mass/Vol] 34.2 g/dL 32-36 [facility] Nucleated RBC/100 WBC (Bld) [Ratio] 0 % 0-5 [facility] Platelet mean volume (Bld) [Entitic vol] 8.7 fL 6.2-12.0 [facility] Platelets (Bld) [#/Vol] 311 10*3/uL 150-450 [facility] No Panel InformationOrdered By: Lenin Hidalgo on 11-01-2023 Estimated GFR (MDRD) Amer 72 mL/min >60 [facility] Comment on above: GFR Calc Estimated GFR (MDRD) Non-Af Amer 60 mL/min >60 [facility] Comment on above: Non- GFR Calc VLDL Cholesterol 51 mg/dL 5-40 [facility] RBC Auto (Bld) [#/Vol]Ordere d By: Lenin Hidalgo on 11-01-2023 RBC (Bld) [#/Vol] 3.76 10*6/uL 4.6-6.2 [facility] Serum or plasma calcium kay urement (mass/volume)Ordered By: Lenin Hidalgo on 11-01-2023 Calcium [Mass/Vol] 9.4 mg/dL 8.5-10.1 [facility] Serum or plasma creatinine m easurement (mass/volume)Ordered By: Lenin Hidalgo on 11-01-2023 Creatinine [Mass/Vol] 1.26 mg/dL 0.70-1.30 [facility] Comment on above: The validity of the calculated GFR & GFRAA in patients over 70 years has not been determined. Clinical correlation is essential. Serum or plasma urea nitroge n measurement (mass/volume)Ordered By: Lenin Hidalgo on 11-01-2023 Urea nitrogen [Mass/Vol] 30 mg/dL 7-18 [facility] Thin prep Papanicolaou smear with manual screeningOrdered By: Lenin Hidalgo on 11-01-2023 Thin prep Papanicolaou smear with manual screening 3.8 g/dL 3.2-5.0 [facility] Thin prep Papanicolaou smear with manual screening 14 U/L 15-37 [facility] Thin prep Papanicolaou smear with manual screening 8 5-15 [facility] Absolute lymphocyte countOrd ered By: Lenin Hidalgo on 10-18-2023 Lymphocytes Auto (Unsp spec) [#/Vol] 1.37 10*3/uL 0.83-4.51 [facility] Automated lymphocyte count a s percentage of total leukocytesOrdered By: Lenin Hidalgo on 10-18-2023 Lymphocytes/100 WBC Auto (Unsp spec) 16.9 % 19-41 [facility] Basophil percentageOrdered B y: Lenin Hidalgo on 10-18-2023 Basophils/100 WBC (Bld) 0.6 % 0-1 [facility] Bilirubin [Mass/Vol] 0.30 mg/dL 0.20-1.00 [facility] Comment on above: For patients on eltr ombopag therapy, use of Dimension [place] TBIL is not recommended. Chloride [Moles/Vol] 98 mmol/L 98-107 [facility] Eosinophils/100 WBC (Bld) 3.7 % 0-5 [facility] Glucose [Mass/Vol] 162 mg/dL 74-106 [facility] Comment on above: Fasting Glucose resu lt greater than or equal to 126 mg/dL suggests DIABETES MELLITUS per A.D.A. criteria. Hemoglobin (Bld) [Mass/Vol] 12.7 g/dL 13.0-16.5 [facility] Monocytes/100 WBC (Bld) 8.5 % 0-10 [facility] Neutrophils (Bld) [#/Vol] 5.7 10*3/uL 2.0-7.7 [facility] Neutrophils/100 WBC (Bld) 69.9 % 47-70 [facility] Potassium [Moles/Vol] 4.9 mmol/L 3.5-5.1 [facility] Protein [Mass/Vol] 7.8 g/dL 6.4-8.2 [facility] Sodium [Moles/Vol] 130 mmol/L 136-145 [facility] WBC (Bld) [#/Vol] 8.1 10*3/uL 4.4-11.0 [facility] Determination of erythrocyte mean corpuscular volume (MCV)Ordered By: Lenin Hidalgo on 10-18-2023 MCV (RBC) [Entitic vol] 93.5 fL 80-94 [facility] Erythrocyte distribution wid th ratioOrdered By: Lenin Hidalgo on 10-18-2023 Erythrocyte distribution width (RBC) [Ratio] 12.1 % 11.6-14.6 [facility] Erythrocyte distribution wid th standard deviationOrdered By: Lenin Hidalgo on 10-18-2023 Erythrocyte distribution width (RBC) [Entitic vol] 41.8 fL 35.1-43.9 [facility] Hematocrit Auto (Bld) [Volum e fraction]Ordered By: Lenin Hidalgo on 10-18-2023 Hematocrit (Bld) [Volume fraction] 37.1 % 40-54 [facility] Immature granulocytes/100 WB C Auto (Bld)Ordered By: Lenin Hidalgo on 10-18-2023 Immature granulocytes/100 WBC (Bld) 0.400 % 0.0-0.9 [facility] Comment on above: IG% - Immature Granu locytes (promyelocytes, myelocytes and metamyelocytes) > 1% indicates that a LEFT SHIFT is Present. Laboratory - Chemistry and C hemistry - challengeOrdered By: Lenin Hidalgo on 10-18-2023 Albumin/Globulin [Mass ratio] 1.0 {ratio} 0.9-2.4 [facility] ALP [Catalytic activity/Vol] 58 U/L 45-117 [facility] ALT [Catalytic activity/Vol] 21 U/L 16-61 [facility] CO2 [Moles/Vol] 25.0 mmol/L 21.0-32.0 [facility] Globulin (S) [Mass/Vol] 4.0 g/dL 2.2-4.2 [facility] Urea nitrogen/Creatinine [Mass ratio] 20.8 mg/mg 10-20 [facility] Laboratory - Hematology and Cell countsOrdered By: Lenin Hidalgo on 10-18-2023 MCH (RBC) [Entitic mass] 32.0 pg 27.0-32.0 [facility] MCHC (RBC) [Mass/Vol] 34.2 g/dL 32-36 [facility] Nucleated RBC/100 WBC (Bld) [Ratio] 0 % 0-5 [facility] Platelet mean volume (Bld) [Entitic vol] 8.7 fL 6.2-12.0 [facility] Platelets (Bld) [#/Vol] 297 10*3/uL 150-450 [facility] No Panel InformationOrdered By: Lenin Hidalgo on 10-18-2023 Estimated GFR (MDRD) Amer 62 mL/min >60 [facility] Comment on above: GFR Calc Estimated GFR (MDRD) Non-Af Amer 51 mL/min >60 [facility] Comment on above: Non- GFR Calc Parathyroid Hormone (Intact) 57.3 pg/mL 18.4-80.1 [facility] Urine Microalbumin/Creatinine Ratio 11.4 mg/g CRE <30 [facility] RBC Auto (Bld) [#/Vol]Ordere d By: Lenin Hidalgo on 10-18-2023 RBC (Bld) [#/Vol] 3.97 10*6/uL 4.6-6.2 [facility] Serum or plasma calcium kay urement (mass/volume)Ordered By: Lenin Hidalgo on 10-18-2023 Calcium [Mass/Vol] 8.7 mg/dL 8.5-10.1 [facility] Serum or plasma creatinine m easurement (mass/volume)Ordered By: Lenin Hidalgo on 10-18-2023 Creatinine [Mass/Vol] 1.44 mg/dL 0.70-1.30 [facility] Comment on above: The validity of the calculated GFR & GFRAA in patients over 70 years has not been determined. Clinical correlation is essential. Serum or plasma thyroid stim ulating hormone (TSH) measurement (units/volume)Ordered By: Lenin Hidalgo on 10-18-2023 TSH Qn 0.42 uIU/mL 0.358-3.74 [facility] Serum or plasma urea nitroge n measurement (mass/volume)Ordered By: Lenin Hidaglo on 10-18-2023 Urea nitrogen [Mass/Vol] 30 mg/dL 7-18 [facility] Thin prep Papanicolaou smear with manual screeningOrdered By: Lenin Hidalgo on 10-18-2023 Thin prep Papanicolaou smear with manual screening 3.8 g/dL 3.2-5.0 [facility] Thin prep Papanicolaou smear with manual screening 13 U/L 15-37 [facility] Thin prep Papanicolaou smear with manual screening 7 5-15 [facility] Thin prep Papanicolaou smear with manual screening 7.8 mg/L NO RANGE EST. [facility] Thin prep Papanicolaou smear with manual screening 0.72 ng/dL 0.76-1.46 [facility] Urine creatinine measurement (mass/volume)Ordered By: Lenin Hidalgo on 10-18-2023 Creatinine (U) [Mass/Vol] 68.00 mg/dL NO RANGE EST. [facility] Whole blood hemoglobin A1c/t otal hemoglobin ratio (mass fraction)Ordered By: Lenin Hidalgo on 10-18-2023 HbA1c (Bld) [Mass fraction] 6.8 % 3.8-5.6 [facility] Comment on above: Normal < 5.7 % Predi abetic 5.7 - 6.4 % Diabetic >or= 6.5 % Please note range changes. Basophil percentageOrdered B y: Lenin Hidalgo on 09-07-2023 Bilirubin [Mass/Vol] 0.60 mg/dL 0.20-1.00 [facility] Comment on above: For patients on eltr ombopag therapy, use of Dimension [place] TBIL is not recommended. Chloride [Moles/Vol] 99 mmol/L 98-[address] [facility] Glucose [Mass/Vol] 129 mg/dL 74-106 [facility] Comment on above: Fasting Glucose resu lt greater than or equal to 126 mg/dL suggests DIABETES MELLITUS per A.D.A. criteria. Potassium [Moles/Vol] 4.8 mmol/L 3.5-5.1 [facility] Protein [Mass/Vol] 7.6 g/dL 6.4-8.2 [facility] Sodium [Moles/Vol] 133 mmol/L 136-145 [facility] Laboratory - Chemistry and C hemistry - challengeOrdered By: Lenin Hidalgo on 09-07-2023 Albumin/Globulin [Mass ratio] 1.0 {ratio} 0.9-2.4 [facility] ALP [Catalytic activity/Vol] 51 U/L 45-117 [facility] ALT [Catalytic activity/Vol] 26 U/L 16-61 [facility] CO2 [Moles/Vol] 25.0 mmol/L 21.0-32.0 [facility] Globulin (S) [Mass/Vol] 3.8 g/dL 2.2-4.2 [facility] Sodium (U) [Moles/Vol] 70 mmol/L Not Establ. [facility] Urea nitrogen/Creatinine [Mass ratio] 19.2 mg/mg 10-20 [facility] No Panel InformationOrdered By: Lenin Hidalgo on 09-07-2023 Thyroglobulin Antibody < 1.0 IU/mL 0.0-0.9 [facility] Comment on above: Thyroglobulin Antibo dy measured by Paul CoulterMethodologyIt should be noted that the presence of thyroglobulinantibodies may not be pathogenic nor diagnostic, especiallyat very low levels. The assay loom cleaner has found thatfour percent of individuals without evidence of thyroiddisease or autoimmunity will have positive TgAb levels upto 4 IU/mL.Performed at: [facility] [employer] [id number] Director: Bonifacio De Jesus PhD, Phone: [phone] Estimated GFR (MDRD) Amer 61 mL/min >60 [facility] Comment on above: GFR Calc Estimated GFR (MDRD) Non-Af Amer 50 mL/min >60 [facility] Comment on above: Non- GFR Calc Free Triiodothyronine (T3) pg/dL 2.6 pg/mL 2.18-3.98 [facility] [facility] Serum or plasma calcium kay urement (mass/volume)Ordered By: Lenin Hidalgo on 09-07-2023 Calcium [Mass/Vol] 9.0 mg/dL 8.5-10.1 [facility] [place] Serum or plasma creatinine m easurement (mass/volume)Ordered By: Lenin Hidalgo on 09-07-2023 Creatinine [Mass/Vol] 1.46 mg/dL 0.70-1.30 [facility] Comment on above: The validity of the calculated GFR & GFRAA in patients over 70 years has not been determined. Clinical correlation is essential. Serum or plasma thyroid stim ulating hormone (TSH) measurement (units/volume)Ordered By: Lenin Hidalgo on 09-07-2023 TSH Qn 0.33 uIU/mL 0.358-3.74 [facility] Serum or plasma thyroperoxid ase antibody assay (units/volume)Ordered By: Lenin Hidalgo on 09-07-2023 TPO Ab Qn 26 [IU]/mL 0-34 [facility] Serum or plasma urea nitroge n measurement (mass/volume)Ordered By: Lenin Hidalgo on 09-07-2023 Urea nitrogen [Mass/Vol] 28 mg/dL 7-18 [facility] Thin prep Papanicolaou smear with manual screeningOrdered By: Lenin Hidalgo on 09-07-2023 Thin prep Papanicolaou smear with manual screening 3.8 g/dL 3.2-5.0 [facility] Thin prep Papanicolaou smear with manual screening 17 U/L 15-37 [facility] Thin prep Papanicolaou smear with manual screening 9 5-15 [facility] Thin prep Papanicolaou smear with manual screening 301 mOsm/KG 280-301 [facility] Thin prep Papanicolaou smear with manual screening 0.74 ng/dL 0.76-1.46 [facility] Urine osmolality measurement Ordered By: Lenin Hidalgo on 09-07-2023 Osmolality (U) [Osmolality] 375 mOsm/KG >50 [facility] Comment on above: Normal Urine Referen ce Ranges Random: 50 - 1200 mOsm/kg H20 depending on fluid intake Random: >850 mOsm/kg after 12 hour fluid restriction 24 hour: ~300 - 900 mOsm/kg H2O Absolute lymphocyte countOrd ered By: Lenin Hidalgo on 07-22-2023 Lymphocytes Auto (Unsp spec) [#/Vol] 1.31 10*3/uL 0.83-4.51 [facility] Automated lymphocyte count a s percentage of total leukocytesOrdered By: Lenin Hidalgo on 07-22-2023 Lymphocytes/100 WBC Auto (Unsp spec) 20.3 % 19-41 [facility] Basophil percentageOrdered B y: Lenin Hidalgo on 07-22-2023 Basophils/100 WBC (Bld) 0.8 % 0-1 [facility] Bilirubin [Mass/Vol] 0.50 mg/dL 0.20-1.00 [facility] Comment on above: For patients on eltr ombopag therapy, use of Dimension [place] TBIL is not recommended. Chloride [Moles/Vol] 104 mmol/L 98-107 [facility] Eosinophils/100 WBC (Bld) 4.8 % 0-5 [facility] Glucose [Mass/Vol] 94 mg/dL 74-106 [facility] [place] Hemoglobin (Bld) [Mass/Vol] 12.0 g/dL 13.0-16.5 [facility] Monocytes/100 WBC (Bld) 9.6 % 0-10 [facility] Neutrophils (Bld) [#/Vol] 4.1 10*3/uL 2.0-7.7 [facility] Neutrophils/100 WBC (Bld) 64.0 % 47-70 [facility] Potassium [Moles/Vol] 4.9 mmol/L 3.5-5.1 [facility] Protein [Mass/Vol] 7.8 g/dL 6.4-8.2 [facility] Sodium [Moles/Vol] 136 mmol/L 136-145 [facility] WBC (Bld) [#/Vol] 6.5 10*3/uL 4.4-11.0 [facility] Determination of erythrocyte mean corpuscular volume (MCV)Ordered By: Lenin Hidalgo on 07-22-2023 MCV (RBC) [Entitic vol] 93.4 fL 80-94 [facility] Erythrocyte distribution wid th ratioOrdered By: Lenin Hidalgo on 07-22-2023 Erythrocyte distribution width (RBC) [Ratio] 12.4 % 11.6-14.6 [facility] Erythrocyte distribution wid th standard deviationOrdered By: Lenin Hidalgo on 07-22-2023 Erythrocyte distribution width (RBC) [Entitic vol] 43.1 fL 35.1-43.9 [facility] Hematocrit Auto (Bld) [Volum e fraction]Ordered By: Lenin Hidalgo on 07-22-2023 Hematocrit (Bld) [Volume fraction] 36.7 % 40-54 [facility] Immature granulocytes/100 WB C Auto (Bld)Ordered By: Lenin Hidalgo on 07-22-2023 Immature granulocytes/100 WBC (Bld) 0.500 % 0.0-0.9 [facility] Comment on above: IG% - Immature Granu locytes (promyelocytes, myelocytes and metamyelocytes) > 1% indicates that a LEFT SHIFT is Present. Laboratory - Chemistry and C hemistry - challengeOrdered By: Lenin Hidalgo on 07-22-2023 Albumin/Globulin [Mass ratio] 1.0 {ratio} 0.9-2.4 [facility] ALP [Catalytic activity/Vol] 52 U/L 45-117 [facility] ALT [Catalytic activity/Vol] 26 U/L 16-61 [facility] CO2 [Moles/Vol] 25.0 mmol/L 21.0-32.0 [facility] Cobalamin (Vitamin B12) [Mass/Vol] 1500 pg/mL 211-911 [facility] Ferritin [Mass/Vol] 87 ng/mL 26-388 [facility] Globulin (S) [Mass/Vol] 3.9 g/dL 2.2-4.2 [facility] Sodium (U) [Moles/Vol] 68 mmol/L Not Establ. [facility] Urea nitrogen/Creatinine [Mass ratio] 21.2 mg/mg 10-20 [facility] Laboratory - Hematology and Cell countsOrdered By: Lenin Hidalgo on 07-22-2023 MCH (RBC) [Entitic mass] 30.5 pg 27.0-32.0 [facility] MCHC (RBC) [Mass/Vol] 32.7 g/dL 32-36 [facility] Nucleated RBC/100 WBC (Bld) [Ratio] 0 % 0-5 [facility] Platelets (Bld) [#/Vol] 295 10*3/uL 150-450 [facility] No Panel InformationOrdered By: Lenin Hidalgo on 07-22-2023 Estimated GFR (MDRD) Amer 66 mL/min >60 [facility] Comment on above: GFR Calc Estimated GFR (MDRD) Non-Af Amer 54 mL/min >60 [facility] Comment on above: Non- GFR Calc Folate 55.80 ng/mL 3.1-55.4 [facility] Platelet mean volume [place]-Ec ker (Bld) [Entitic vol]Ordered By: Lenin Hidalgo on 07-22-2023 Platelet mean volume (Bld) [Entitic vol] 8.7 fL 6.2-12.0 [facility] RBC Auto (Bld) [#/Vol]Ordere d By: Lenin Hidalgo on 07-22-2023 RBC (Bld) [#/Vol] 3.93 10*6/uL 4.6-6.2 [facility] Serum or plasma calcium kay urement (mass/volume)Ordered By: Lenin Hidalgo on 07-22-2023 Calcium [Mass/Vol] 9.5 mg/dL 8.5-10.1 [facility] [place] Serum or plasma creatinine m easurement (mass/volume)Ordered By: Lenin Hidalgo on 07-22-2023 Creatinine [Mass/Vol] 1.37 mg/dL 0.70-1.30 [facility] Comment on above: The validity of the calculated GFR & GFRAA in patients over 70 years has not been determined. Clinical correlation is essential. Serum or plasma thyroid stim ulating hormone (TSH) measurement (units/volume)Ordered By: Lenin Hidalgo on 07-22-2023 TSH Qn 0.31 uIU/mL 0.358-3.74 [facility] Serum or plasma urea nitroge n measurement (mass/volume)Ordered By: Lenin Hidalgo on 07-22-2023 Urea nitrogen [Mass/Vol] 29 mg/dL 7-18 [facility] Thin prep Papanicolaou smear with manual screeningOrdered By: Lenin Hidalgo on 07-22-2023 Thin prep Papanicolaou smear with manual screening 3.9 g/dL 3.2-5.0 [facility] Thin prep Papanicolaou smear with manual screening 15 U/L 15-37 [facility] Thin prep Papanicolaou smear with manual screening 7 5-15 [facility] Thin prep Papanicolaou smear with manual screening 297 mOsm/KG 280-301 [facility] Thin prep Papanicolaou smear with manual screening Negative Negative [facility] Comment on above: Lyme antibodies not detected. Reflex testing is notindicated.No laboratory evidence of infection with B. burgdorferi(Lyme disease). Negative results may occur in patientsrecently infected (less than or equal to 14 days) with B.burgdorferi. If recent infection is suspected, repeattesting on a new sample collected in 7 to 14 days isrecommended.Performed at: [employer] [id number] Director: Bonifacio De Jesus PhD, Phone: [phone] Urine osmolality measurement Ordered By: Lenin Hidalgo on 07-22-2023 Osmolality (U) [Osmolality] 613 mOsm/KG >50 [facility] Comment on above: Normal Urine Referen ce Ranges Random: 50 - 1200 mOsm/kg H20 depending on fluid intake Random: >850 mOsm/kg after 12 hour fluid restriction 24 hour: ~300 - 900 mOsm/kg H2O Absolute lymphocyte countOrd ered By: Lenin Hidalgo on 07-06-2023 Lymphocytes Auto (Unsp spec) [#/Vol] 0.77 10*3/uL 0.83-4.51 [facility] Basophil percentageOrdered B y: Lenin Hidalgo on 07-06-2023 Basophils/100 WBC (Bld) 0.5 % 0-1 [facility] Bilirubin [Mass/Vol] 0.40 mg/dL 0.20-1.00 [facility] Comment on above: For patients on eltr ombopag therapy, use of Dimension [place] TBIL is not recommended. Chloride [Moles/Vol] 96 mmol/L 98-107 [facility] Eosinophils/100 WBC (Bld) 1.5 % 0-5 [facility] Glucose [Mass/Vol] 113 mg/dL 74-106 [facility] [place] Comment on above: Fasting Glucose resu lt from 100 to 125 mg/dL suggests IMPAIRED HOMEOSTASIS per A.D.A. criteria. Neutrophils (Bld) [#/Vol] 5.1 10*3/uL 2.0-7.7 [facility] Neutrophils/100 WBC (Bld) 77.9 % 47-70 [facility] Potassium [Moles/Vol] 5.0 mmol/L 3.5-5.1 [facility] Protein [Mass/Vol] 7.8 g/dL 6.4-8.2 [facility] [place] Sodium [Moles/Vol] 128 mmol/L 136-145 [facility] [place] WBC (Bld) [#/Vol] 6.6 10*3/uL 4.4-11.0 [facility] [place] Blood erythrocytes count (nu mber/volume)Ordered By: Lenin Hidalgo on 07-06-2023 RBC (Bld) [#/Vol] 3.90 10*6/uL 4.6-6.2 [facility] Blood hemoglobin measurement (mass/volume)Ordered By: Lenin Hidalgo on 07-06-2023 Hemoglobin (Bld) [Mass/Vol] 12.0 g/dL 13.0-16.5 [facility] Blood lymphocytes/100 leukoc ytesOrdered By: Lenin Hidalgo on 07-06-2023 Lymphocytes/100 WBC (Bld) 11.8 % 19-41 [facility] Blood monocytes/100 leukocyt esOrdered By: Lenin Hidalgo on 07-06-2023 Monocytes/100 WBC (Bld) 7.8 % 0-10 [facility] Blood platelet mean volumeOr dered By: Lenin Hidalgo on 07-06-2023 Platelet mean volume (Bld) [Entitic vol] 8.6 fL 6.2-12.0 [facility] Determination of erythrocyte mean corpuscular volume (MCV)Ordered By: Lenin Hidalgo on 07-06-2023 MCV (RBC) [Entitic vol] 94.4 fL 80-94 [facility] Hematocrit Auto (Bld) [Volum e fraction]Ordered By: Lenin Hidalgo on 07-06-2023 Hematocrit (Bld) [Volume fraction] 36.8 % 40-54 [facility] Laboratory - Chemistry and C hemistry - challengeOrdered By: Lenin Hidalgo on 07-06-2023 ALP [Catalytic activity/Vol] 54 U/L 45-117 [facility] ALT [Catalytic activity/Vol] 22 U/L 16-61 [facility] CO2 [Moles/Vol] 25.0 mmol/L 21.0-32.0 [facility] Globulin (S) [Mass/Vol] 3.9 g/dL 2.2-4.2 [facility] Magnesium [Mass/Vol] 1.9 mg/dL 1.6-2.6 [facility] Urea nitrogen/Creatinine [Mass ratio] 19.2 mg/mg 10-20 [facility] Laboratory - Hematology and Cell countsOrdered By: Lenin Hidalgo on 07-06-2023 Erythrocyte distribution width (RBC) [Entitic vol] 42.5 fL 35.1-43.9 [facility] Erythrocyte distribution width (RBC) [Ratio] 12.2 % 11.6-14.6 [facility] Immature granulocytes/100 WBC (Bld) 0.500 % 0.0-0.9 [facility] Comment on above: IG% - Immature Granu locytes (promyelocytes, myelocytes and metamyelocytes) > 1% indicates that a LEFT SHIFT is Present. MCH (RBC) [Entitic mass] 30.8 pg 27.0-32.0 [facility] Nucleated RBC/100 WBC (Bld) [Ratio] 0 % 0-5 [facility] MCHC Auto (RBC) [Mass/Vol]Or dered By: Lenin Hidalgo on 07-06-2023 MCHC (RBC) [Mass/Vol] 32.6 g/dL 32-36 [facility] No Panel InformationOrdered By: Lenin Hidalgo on 07-06-2023 Estimated GFR (MDRD) Amer 73 mL/min >60 [facility] Comment on above: GFR Calc Estimated GFR (MDRD) Non-Af Amer 60 mL/min >60 [facility] Comment on above: Non- GFR Calc Urine Microalbumin/Creatinine Ratio 17.5 mg/g CRE <30 [facility] Platelets bldOrdered By: Selma Hidalgo on 07-06-2023 Platelets (Bld) [#/Vol] 316 10*3/uL 150-450 [facility] Serum or plasma albumin kay urement (mass/volume)Ordered By: Lenin Hidalgo on 07-06-2023 Albumin [Mass/Vol] 3.9 g/dL 3.2-5.0 [facility] Serum or plasma albumin/glob ulin mass ratioOrdered By: Lenin Hidalgo on 07-06-2023 Albumin/Globulin [Mass ratio] 1.0 {ratio} 0.9-2.4 [facility] Serum or plasma calcium kay urement (mass/volume)Ordered By: Lenin Hidalgo on 07-06-2023 Calcium [Mass/Vol] 9.7 mg/dL 8.5-10.1 [facility] [place] Serum or plasma creatinine m easurement (mass/volume)Ordered By: Lenin Hidalgo on 07-06-2023 Creatinine [Mass/Vol] 1.25 mg/dL 0.70-1.30 [facility] Comment on above: The validity of the calculated GFR & GFRAA in patients over 70 years has not been determined. Clinical correlation is essential. Serum or plasma urea nitroge n measurement (mass/volume)Ordered By: Lenin Hidalgo on 07-06-2023 Urea nitrogen [Mass/Vol] 24 mg/dL 7-18 [facility] Thin prep Papanicolaou smear with manual screeningOrdered By: Lenin Hidalgo on 07-06-2023 Thin prep Papanicolaou smear with manual screening 12 U/L 15-37 [facility] Thin prep Papanicolaou smear with manual screening 7 5-15 [facility] Thin prep Papanicolaou smear with manual screening 285 mOsm/KG 280-301 [facility] Thin prep Papanicolaou smear with manual screening 10.7 mg/L NO RANGE EST. [facility] Urine creatinine measurement (mass/volume)Ordered By: Lenin Hidalgo on 07-06-2023 Creatinine (U) [Mass/Vol] 61.20 mg/dL NO RANGE EST. [facility] Urine osmolality measurement Ordered By: Lenin Hidalgo on 07-06-2023 Osmolality (U) [Osmolality] 455 mOsm/KG >50 [facility] Comment on above: Normal Urine Referen ce Ranges Random: 50 - 1200 mOsm/kg H20 depending on fluid intake Random: >850 mOsm/kg after 12 hour fluid restriction 24 hour: ~300 - 900 mOsm/kg H2O Basophil percentageOrdered B y: Lenin Hidalgo on 03-23-2023 Chloride [Moles/Vol] 99 mmol/L 98-107 [facility] Glucose [Mass/Vol] 161 mg/dL 74-106 [facility] [place] Comment on above: Fasting Glucose resu lt greater than or equal to 126 mg/dL suggests DIABETES MELLITUS per A.D.A. criteria. Potassium [Moles/Vol] 4.5 mmol/L 3.5-5.1 [facility] Sodium [Moles/Vol] 132 mmol/L 136-145 [facility] [place] Laboratory - Chemistry and C hemistry - challengeOrdered By: Lenin Hidalgo on 03-23-2023 CO2 [Moles/Vol] 27.0 mmol/L 21.0-32.0 [facility] Free T4 [Mass/Vol] 0.80 ng/dL 0.76-1.46 [facility] [place] Urea nitrogen/Creatinine [Mass ratio] 18.8 mg/mg 10-20 [facility] No Panel InformationOrdered By: Lenin Hidalgo on 03-23-2023 Estimated GFR (MDRD) Amer 71 mL/min >60 [facility] Comment on above: GFR Calc Estimated GFR (MDRD) Non-Af Amer 59 mL/min >60 [facility] Comment on above: Non- GFR Calc Free Triiodothyronine (T3) pg/dL 2.4 pg/mL 2.18-3.98 [facility] Thyroglobulin Antibody < 1.0 IU/mL 0.0-0.9 [facility] Comment on above: Thyroglobulin Antibo dy measured by [employer] Thyroglobulin Level 9.8 ng/mL 1.4-29.2 [facility] Comment on above: According to the [facility] [employer] Clinical [employer]ochemistry,the reference interval for Thyroglobulin (TG) should berelated to euthyroid patients and not for patients whounderwent thyroidectomy. TG reference intervals for thesepatients depend on the residual mass of the thyroid tissueleft after surgery. Establishing a post-operative baselineis recommended. The assay limit of quantitation is 0.1ng/mLThyroglobulin measured by Paul Curt [employer] Thyroid Stimulating Hormone (TSH) 0.18 uIU/mL 0.358-3.74 [facility] Serum or plasma calcium kay urement (mass/volume)Ordered By: Lenin Hidalgo on 03-23-2023 Calcium [Mass/Vol] 9.2 mg/dL 8.5-10.1 [facility] [place] Serum or plasma creatinine m easurement (mass/volume)Ordered By: Lenin Hidalgo on 03-23-2023 Creatinine [Mass/Vol] 1.28 mg/dL 0.70-1.30 [facility] Comment on above: The validity of the calculated GFR & GFRAA in patients over 70 years has not been determined. Clinical correlation is essential. Serum or plasma thyroperoxid ase antibody assay (units/volume)Ordered By: Lenin Hidalgo on 03-23-2023 TPO Ab Qn 15 [IU]/mL 0-34 [facility] Comment on above: Performed at: [address] [id number] Director: Bonifacio De Jesus PhD, Phone: [phone] Serum or plasma urea nitroge n measurement (mass/volume)Ordered By: Lenin Hidalgo on 03-23-2023 Urea nitrogen [Mass/Vol] 24 mg/dL 7-18 [facility] Thin prep Papanicolaou smear with manual screeningOrdered By: Lenin Hidalgo on 03-23-2023 Thin prep Papanicolaou smear with manual screening 6 11-09 [facility] Absolute lymphocyte countOrd ered By: Lenin Hidalgo on 02-19-2023 Lymphocytes Auto (Unsp spec) [#/Vol] 0.94 10*3/uL 0.83-4.51 [facility] Basophil percentageOrdered B y: Lenin Hidalgo on 02-19-2023 Basophils/100 WBC (Bld) 0.8 % 0-1 [facility] Bilirubin [Mass/Vol] 0.40 mg/dL 0.20-1.00 [facility] Comment on above: For patients on eltr ombopag therapy, use of Dimension [place] TBIL is not recommended. Chloride [Moles/Vol] 100 mmol/L 98-107 [facility] Eosinophils/100 WBC (Bld) 3.3 % 0-5 [facility] Glucose [Mass/Vol] 127 mg/dL 74-106 [facility] Comment on above: Fasting Glucose resu lt greater than or equal to 126 mg/dL suggests DIABETES MELLITUS per A.D.A. criteria. Neutrophils (Bld) [#/Vol] 4.6 10*3/uL 2.0-7.7 [facility] Neutrophils/100 WBC (Bld) 71.4 % 47-70 [facility] Potassium [Moles/Vol] 4.9 mmol/L 3.5-5.1 [facility] Protein [Mass/Vol] 7.6 g/dL 6.4-8.2 [facility] Sodium [Moles/Vol] 132 mmol/L 136-145 [facility] WBC (Bld) [#/Vol] 6.4 10*3/uL 4.4-11.0 [facility] Blood erythrocytes count (nu mber/volume)Ordered By: Lenin Hidalgo on 02-19-2023 RBC (Bld) [#/Vol] 3.66 10*6/uL 4.6-6.2 [facility] Blood hemoglobin measurement (mass/volume)Ordered By: Lenin Hidalgo on 02-19-2023 Hemoglobin (Bld) [Mass/Vol] 11.7 g/dL 13.0-16.5 [facility] Blood lymphocytes/100 leukoc ytesOrdered By: Lenin Hidalgo on 02-19-2023 Lymphocytes/100 WBC (Bld) 14.7 % 19-41 [facility] Blood monocytes/100 leukocyt esOrdered By: Lenin Hidalgo on 02-19-2023 Monocytes/100 WBC (Bld) 9.0 % 0-10 [facility] Blood platelet mean volumeOr dered By: Lenin Hidalgo on 02-19-2023 Platelet mean volume (Bld) [Entitic vol] 8.4 fL 6.2-12.0 [facility] Determination of erythrocyte mean corpuscular volume (MCV)Ordered By: Lenin Hidalgo on 02-19-2023 MCV (RBC) [Entitic vol] 94.5 fL 80-94 [facility] Hematocrit Auto (Bld) [Volum e fraction]Ordered By: Lenin Hidalgo on 02-19-2023 Hematocrit (Bld) [Volume fraction] 34.6 % 40-54 [facility] Laboratory - Chemistry and C hemistry - challengeOrdered By: Lenin Hidalgo on 02-19-2023 ALP [Catalytic activity/Vol] 52 U/L 45-117 [facility] ALT [Catalytic activity/Vol] 23 U/L 16-61 [facility] CO2 [Moles/Vol] 26.0 mmol/L 21.0-32.0 [facility] Free T4 [Mass/Vol] 0.79 ng/dL 0.76-1.46 [facility] Globulin (S) [Mass/Vol] 3.7 g/dL 2.2-4.2 [facility] Sodium (U) [Moles/Vol] 69 mmol/L Not Establ. [facility] Urea nitrogen/Creatinine [Mass ratio] 22.0 mg/mg 10-20 [facility] Laboratory - Hematology and Cell countsOrdered By: Lenin Hidalgo on 02-19-2023 Erythrocyte distribution width (RBC) [Entitic vol] 42.4 fL 35.1-43.9 [facility] Erythrocyte distribution width (RBC) [Ratio] 12.1 % 11.6-14.6 [facility] Immature granulocytes/100 WBC (Bld) 0.800 % 0.0-0.9 [facility] Comment on above: IG% - Immature Granu locytes (promyelocytes, myelocytes and metamyelocytes) > 1% indicates that a LEFT SHIFT is Present. MCH (RBC) [Entitic mass] 32.0 pg 27.0-32.0 [facility] Nucleated RBC/100 WBC (Bld) [Ratio] 0 % 0-5 [facility] MCHC Auto (RBC) [Mass/Vol]Or dered By: Lenin Hidalgo on 02-19-2023 MCHC (RBC) [Mass/Vol] 33.8 g/dL 32-36 [facility] No Panel InformationOrdered By: Lenin Hidalgo on 02-19-2023 Estimated GFR (MDRD) Amer 72 mL/min >60 [facility] Comment on above: GFR Calc Estimated GFR (MDRD) Non-Af Amer 59 mL/min >60 [facility] Comment on above: Non- GFR Calc Free Triiodothyronine (T3) pg/dL 2.6 pg/mL 2.18-3.98 [facility] Thyroid Stimulating Hormone (TSH) 0.21 uIU/mL 0.358-3.74 [facility] Platelets bldOrdered By: Selma Hidalgo on 02-19-2023 Platelets (Bld) [#/Vol] 291 10*3/uL 150-450 [facility] Serum or plasma albumin kay urement (mass/volume)Ordered By: Lenin Hidalgo on 02-19-2023 Albumin [Mass/Vol] 3.9 g/dL 3.2-5.0 [facility] Serum or plasma albumin/glob ulin mass ratioOrdered By: Lenin Hidalgo on 02-19-2023 Albumin/Globulin [Mass ratio] 1.1 {ratio} 0.9-2.4 [facility] Serum or plasma calcium kay urement (mass/volume)Ordered By: Lenin Hidalgo on 02-19-2023 Calcium [Mass/Vol] 9.3 mg/dL 8.5-10.1 [facility] Serum or plasma creatinine m easurement (mass/volume)Ordered By: Lenin Hidalgo on 02-19-2023 Creatinine [Mass/Vol] 1.27 mg/dL 0.70-1.30 [facility] Comment on above: The validity of the calculated GFR & GFRAA in patients over 70 years has not been determined. Clinical correlation is essential. Serum or plasma urea nitroge n measurement (mass/volume)Ordered By: Lenin Hidalgo on 02-19-2023 Urea nitrogen [Mass/Vol] 28 mg/dL 7-18 [facility] Thin prep Papanicolaou smear with manual screeningOrdered By: Lenin Hidalgo on 02-19-2023 Thin prep Papanicolaou smear with manual screening 12 U/L 15-37 [facility] Thin prep Papanicolaou smear with manual screening 6 5-15 [facility] Thin prep Papanicolaou smear with manual screening 292 mOsm/KG 280-301 [facility] Urine osmolality measurement Ordered By: Lenin Hidalgo on 02-19-2023 Osmolality (U) [Osmolality] 374 mOsm/KG >50 [facility] Comment on above: Normal Urine Referen ce Ranges Random: 50 - 1200 mOsm/kg H20 depending on fluid intake Random: >850 mOsm/kg after 12 hour fluid restriction 24 hour: ~300 - 900 mOsm/kg H2O CULTURE OTHER [BRIANNE]on CULTURE OTHER [BRIANNE] CULTURE OTHER [A ULTMAN] _CULTURE OTHER_ GO TO [facility] REPORTS AND ATTACHMENTS FOR SCANNED REPORT [id number] Normal [facility] Comment on above: Performed By: #### [id number] #### [facility],[address] [place] [address] Basic metabolic 2000 panelon 05-28-2022 Anion gap [Moles/Vol] 9 mmol/L 9 - 18 mmol/L [facility] Calcium [Mass/Vol] 9.5 mg/dL 8.5 - 10. 2 mg/dL [facility] Chloride [Moles/Vol] 95 mmol/L Low 97 - 10 5 mmol/L [facility] CO2 [Moles/Vol] 27 mmol/L 22 - 30 mmol/L [facility] Creatinine [Mass/Vol] 1.36 mg/dL High 0.73 - 1.22 mg/dL [facility] Estimated Glomerular Filtration Rate 56 mL/min/1.73m Low >=60 mL/min/1.7 3m [facility] Glucose [Mass/Vol] 111 mg/dL High 74 - 99 mg/dL [facility] Potassium [Moles/Vol] 4.8 mmol/L 3.7 - 5.1 mmol/L [facility] Sodium [Moles/Vol] 131 mmol/L Low 136 - 144 mmol/L [facility] Urea nitrogen [Mass/Vol] 24 mg/dL 9 - 24 mg/dL [facility] CT UROGRAM WO/W IVCONon 11-3 [facility] Absolute lymphocyte counton 03-31-2022 Lymphocytes Auto (Unsp spec) [#/Vol] 0.67 10*3/uL 0.83-4.51 [facility] Work Phone: Basophil percentageon 2021 Basophil percentage 0 SEEN /hpf 0-5 [facility] Work Phone: Basophils/100 WBC (Bld) 0.1 % 0-1 [facility] Work Phone: Bilirubin [Mass/Vol] 0.60 mg/dL 0.20-1.00 [facility] Work Phone: Comment on above: For patients on eltr ombopag therapy, use of Dimension [place] TBIL is not recommended. Chloride [Moles/Vol] 96 mmol/L 98-107 [facility] Work Phone: Eosinophils/100 WBC (Bld) 0.2 % 0-5 [facility] Work Phone: Glucose [Mass/Vol] 143 mg/dL 74-106 [facility] Work Phone: [phone] Comment on above: Fasting Glucose resu lt greater than or equal to 126 mg/dL suggests DIABETES MELLITUS per A.D.A. criteria. Neutrophils (Bld) [#/Vol] 8.9 10*3/uL 2.0-7.7 [facility] Work Phone: [phone] Neutrophils/100 WBC (Bld) 87.5 % 47-70 [facility] Work Phone: Potassium [Moles/Vol] 5.1 mmol/L 3.5-5.1 [facility] Work Phone: Protein [Mass/Vol] 8.2 g/dL 6.4-8.2 [facility] Work Phone: Sodium [Moles/Vol] 129 mmol/L 136-145 [facility] Work Phone: WBC (Bld) [#/Vol] 10.2 10*3/uL 4.4-11.0 [facility] Work Phone: [phone] Bilirubin Test strip Ql (U)o n 03-31-2022 Bilirubin Ql (U) Negative Negative [facility] Work Phone: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 11:28-0500 Diastolic blood pressure 76 mm[Hg] Dr. Lenin Hidalgo MD Work Phone: [facility] 07-07-2024 11:28-0500 Heart rate 73 /min Dr. Lenin Hidalgo MD Work Phone: [facility] 07-07-2024 11:28-0500 Respiratory rate 16 /min Dr. Lenin Hidalgo MD Work Phone: [facility] 07-07-2024 11:28-0500 Systolic blood pressure 117 mm[Hg] Dr. Lenin Hidalgo MD Work Phone: [facility] 11-08-2023 09:20-0400 Body temperature 98 [degF] Dr. Lenin Hidalgo Work Phone: [facility] 11-08-2023 09:20-0400 Diastolic blood pressure 90 mm[Hg] Dr. Lenin Hidalgo Work Phone: 9(054)389-989858 [address] 11-08-2023 09:20-0400 Heart rate 62 /min Dr. Lenin Hidalgo Work Phone: [facility] 11-08-2023 09:20-0400 Respiratory rate 16 /min Dr. Lenin Hidalgo Work Phone: [facility] 11-08-2023 09:20-0400 SaO2% (BldA) [Mass fraction] 96 % Dr. Lenin Hidalgo Work Phone: [facility] 11-08-2023 09:20-0400 Systolic blood pressure 158 mm[Hg] Dr. Lenin Hidalgo Work Phone: [facility] 11-07-2023 09:51-0400 Body height 182.[address] Lenin Hidalgo Work Phone: [facility] 11-07-2023 09:51-0400 Body mass index (BMI) [Ratio] 32.1 kg/m2 Dr. Lenin Hidalgo Work Phone: [facility] 11-07-2023 09:51-0400 Body weight 107.[address] Lenin Hidalgo Work Phone: [facility] 11-06-2023 10:00-0400 Body temperature 98 [degF] Dr. Lenin Hidalgo Work Phone: [facility] 11-06-2023 10:00-0400 Diastolic blood pressure 74 mm[Hg] Dr. Lenin Hidalgo Work Phone: [facility] 11-06-2023 10:00-0400 Heart rate 72 /min Dr. Lenin Hidalgo Work Phone: [facility] 11-06-2023 10:00-0400 Respiratory rate 16 /min Dr. Lenin Hidalgo Work Phone: [facility] 11-06-2023 10:00-0400 SaO2% (BldA) [Mass fraction] 99 % Dr. Lenin Hidalgo Work Phone: [facility] 11-06-2023 10:00-0400 Systolic blood pressure 148 mm[Hg] Dr. Lenin Hidalgo Work Phone: [facility] 11-06-2023 08:14-0400 Body height 182.[address] Lenin Hidalgo Work Phone: [facility] 11-06-2023 08:14-0400 Body mass index (BMI) [Ratio] 27.6 kg/m2 Dr. Lenin Hiadlgo Work Phone: [facility] 11-06-2023 08:14-0400 Body weight 92.[address] Lenin Hidalgo Work Phone: [facility] 11-05-2023 09:11-0400 Body height 180.[address] Lenin Hidalgo Work Phone: [facility] 11-05-2023 09:11-0400 Body mass index (BMI) [Ratio] 29.1 kg/m2 Dr. Lenin Hidalgo Work Phone: [facility] 11-05-2023 09:11-0400 Body temperature 97.4 [degF] Dr. Lenin Hidalgo Work Phone: [facility] 11-05-2023 09:11-0400 Body weight 94.[address] Lenin Hidalgo Work Phone: [facility] 11-05-2023 09:11-0400 Diastolic blood pressure 71 mm[Hg] Dr. Lenin Hidalgo Work Phone: [facility] 11-05-2023 09:11-0400 Heart rate 79 /min Dr. Lenin Hidalgo Work Phone: [facility] 11-05-2023 09:11-0400 Respiratory rate 17 /min Dr. Lenin Hdialgo Work Phone: [facility] 11-05-2023 09:11-0400 SaO2% (BldA) [Mass fraction] 98 % Dr. Lenin Hidalgo Work Phone: [facility] 11-05-2023 09:11-0400 Systolic blood pressure 110 mm[Hg] Dr. Lenin Hidalgo Work Phone: 9(713)984-684868 [place] [address] 07-08-2023 13:37-0500 Body height 180.[address] Lenin Hidalgo Work Phone: 8(473)465-355968 [place] [address] 07-08-2023 13:34-0500 Body mass index (BMI) [Ratio] 28.8 kg/m2 Dr. Lenin Hidalgo Work Phone: 9(670)161-901768 [place] [address] 07-08-2023 13:34-0500 Body weight 93.[address] Lenin Hidalgo Work Phone: 0(953)890-950168 [place] [address] 07-08-2023 13:34-0500 Diastolic blood pressure 84 mm[Hg] Dr. Lenin Hidalgo Work Phone: [facility] 07-08-2023 13:34-0500 Heart rate 61 /min Dr. Lenin Hidalgo Work Phone: [facility] 07-08-2023 13:34-0500 Respiratory rate 18 /min Dr. Lenin Hidalgo Work Phone: 5(318)143-533668 [place] [address] 07-08-2023 13:34-0500 SaO2% (BldA) [Mass fraction] 99 % Dr. Lenin Hidalgo Work Phone: [facility] 07-08-2023 13:34-0500 Systolic blood pressure 143 mm[Hg] Dr. Lenin Hidalgo Work Phone: [facility] 09-10-2022 09:50-0400 Body weight 91.99 kg Evelina Shafer MD Work Phone: [facility] 09-10-2022 09:50-0400 Diastolic blood pressure 68 mm[Hg] Evelina Shafer MD Work Phone: [facility] 09-10-2022 09:50-0400 Heart rate 78 /min Evelina Shafer MD Work Phone: [facility] 09-10-2022 09:50-0400 Respiratory rate 16 /min Evelina Shafer MD Work Phone: [facility] 09-10-2022 09:50-0400 SaO2% (BldA) [Mass fraction] 100 % Evelina Shafer MD Work Phone: [facility] 09-10-2022 09:50-0400 Systolic blood pressure 110 mm[Hg] Evelina Shafer MD Work Phone: [facility] 06-01-2022 11:22-0500 Body weight 90.27 kg Evelina Shafer MD Work Phone: [facility] 06-01-2022 11:22-0500 Diastolic blood pressure 72 mm[Hg] Evelina Shafer MD Work Phone: [facility] 06-01-2022 11:22-0500 Heart rate 67 /min Evelina Shafer MD Work Phone: [facility] 06-01-2022 11:22-0500 Respiratory rate 16 /min Evelina Shafer MD Work Phone: [facility] 06-01-2022 11:22-0500 SaO2% (BldA) [Mass fraction] 100 % Evelina Shafer MD Work Phone: [facility] 06-01-2022 11:22-0500 Systolic blood pressure 116 mm[Hg] Evelina Shafer MD Work Phone: [facility] 05-19-2022 11:09-0500 Diastolic blood pressure 74 mm[Hg] Hedyfoster Nevarez TREE SPECIALIST.PHYSICIAN GYNECOLOGIST Work Phone: [facility] 05-19-2022 11:09-0500 Heart rate 67 /min Hedy Nevarez TREE SPECIALIST.PHYSICIAN GYNECOLOGIST Work Phone: [facility] 05-19-2022 11:09-0500 SaO2% (BldA) [Mass fraction] 99 % Hedy Ramirestami TREE SPECIALIST.PHYSICIAN GYNECOLOGIST Work Phone: [facility] 05-19-2022 11:09-0500 Systolic blood pressure 115 mm[Hg] Hedy Nevarez TREE SPECIALIST.PHYSICIAN GYNECOLOGIST Work Phone: [facility] 05-18-2022 11:06-0500 Diastolic blood pressure 72 mm[Hg] Barbara Orantes MD Work Phone: [facility] 05-18-2022 11:06-0500 Heart rate 71 /min Barbara Orantes MD Work Phone: [facility] 05-18-2022 11:06-0500 Systolic blood pressure 135 mm[Hg] Barbara Orantes MD Work Phone: [facility] 05-01-2022 09:22-0400 Body weight 89.45 kg Evelina Shafer MD Work Phone: [facility] 05-01-2022 09:22-0400 Diastolic blood pressure 68 mm[Hg] Evelina Shafer MD Work Phone: [facility] 05-01-2022 09:22-0400 Heart rate 73 /min Evelina Shafer MD Work Phone: [facility] 05-01-2022 09:22-0400 Respiratory rate 16 /min Evelina Shafer MD Work Phone: [facility] 05-01-2022 09:22-0400 SaO2% (BldA) [Mass fraction] 99 % Evelina Shafer MD Work Phone: [facility] 05-01-2022 09:22-0400 Systolic blood pressure 110 mm[Hg] Evelina Shafer MD Work Phone: [facility] 04-17-2022 10:20-0400 Diastolic blood pressure 94 mm[Hg] Evelina Shafer MD Work Phone: [facility] 04-17-2022 10:20-0400 Systolic blood pressure 159 mm[Hg] Evelina Shafer MD Work Phone: [facility] 04-17-2022 10:15-0400 Heart rate 66 /min Evelina Shafer MD Work Phone: [facility] 04-17-2022 10:15-0400 Respiratory rate 18 /min Evelina Shafer MD Work Phone: [facility] 04-17-2022 10:15-0400 SaO2% (BldA) [Mass fraction] 98 % Evelina Shafer MD Work Phone: [facility] 04-17-2022 03:49-0400 Body height 180.3 cm [facility] Work Phone: [facility] 04-17-2022 03:49-0400 Body weight 88.5 kg [facility] Work Phone: [facility] 03-31-2022 12:15-0400 Diastolic blood pressure 81 mm[Hg] Dr. Georges Shafer Work Phone: [facility] Work Phone: 03-31-2022 12:15-0400 Heart rate 74 /min Dr. Georges Shafer Work Phone: [facility] Work Phone: 03-31-2022 12:15-0400 Respiratory rate 12 /min Dr. Georges Shafer Work Phone: [facility] Work Phone: 03-31-2022 12:15-0400 SaO2% (BldA) [Mass fraction] 97 % Dr. Georges Shafer Work Phone: [facility] Work Phone: 03-31-2022 12:15-0400 Systolic blood pressure 119 mm[Hg] Dr. Georges Shafer Work Phone: [facility] Work Phone: 03-31-2022 08:38-0400 Body height 180.[address] Georges Shafer Work Phone: [facility] Work Phone: 03-31-2022 08:38-0400 Body mass index (BMI) [Ratio] 26.8 kg/m2 Dr. Georges Shafer Work Phone: [facility] Work Phone: 03-31-2022 08:38-0400 Body temperature 97.6 [degF] Dr. Georges Shafer Work Phone: [facility] Work Phone: 03-31-2022 08:38-0400 Body weight 87.[address] Georges Shafer Work Phone: [facility] Work Phone: 03-24-2022 12:03-0400 Body temperature 98.6 [degF] Minna Praisler-Wood TREE SPECIALIST.PHYSICIAN GYNECOLOGIST Work Phone: [facility] 03-24-2022 12:03-0400 Body weight 88.45 kg Minna Praisler-Wood TREE SPECIALIST.PHYSICIAN GYNECOLOGIST Work Phone: [facility] 03-24-2022 12:03-0400 Diastolic blood pressure 84 mm[Hg] Minna Praisler-Wood TREE SPECIALIST.PHYSICIAN GYNECOLOGIST Work Phone: [facility] 03-24-2022 12:03-0400 Heart rate 84 /min Minna Praisler-Wood TREE SPECIALIST.PHYSICIAN GYNECOLOGIST Work Phone: [facility] 03-24-2022 12:03-0400 Respiratory rate 16 /min Minna Praisler-Wood TREE SPECIALIST.PHYSICIAN GYNECOLOGIST Work Phone: [facility] 03-24-2022 12:03-0400 SaO2% (BldA) [Mass fraction] 98 % Minna Soriano APRN.PHYSICIAN GYNECOLOGIST Work Phone: [facility] 03-24-2022 12:03-0400 Systolic blood pressure 122 mm[Hg] Minna Soriano APRN.PHYSICIAN GYNECOLOGIST Work Phone: [facility] 03-16-2022 10:25-0400 Body height 180.[address] Georges Shafer Work Phone: [facility] Work Phone: 03-16-2022 10:25-0400 Body weight 88.[address] Georges Shafer Work Phone: [facility] Work Phone: 03-13-2022 07:59-0400 Body mass index (BMI) [Ratio] 27.3 kg/m2 Dr. Georges Shafer Work Phone: [facility] Work Phone: 03-10-2022 08:31-0400 Body height 180.[address] Georges Shafer Work Phone: [facility] Work Phone: 02-10-2022 10:47-0400 Body mass index (BMI) [Ratio] 26.9 kg/m2 Dr. Georges Shafer Work Phone: [facility] Work Phone: 02-10-2022 10:47-0400 Body weight 88.[address] Georges Shafer Work Phone: [facility] Work Phone: 02-10-2022 10:47-0400 Diastolic blood pressure 84 mm[Hg] Dr. Georges Shafer Work Phone: [facility] Work Phone: 02-10-2022 10:47-0400 Heart rate 67 /min Dr. Georges Shafre Work Phone: [facility] Work Phone: 02-10-2022 10:47-0400 Respiratory rate 18 /min Dr. Georges Shafer Work Phone: [facility] Work Phone: 02-10-2022 10:47-0400 SaO2% (BldA) [Mass fraction] 99 % Dr. Georges Shafer Work Phone: [facility] Work Phone: 02-10-2022 10:47-0400 Systolic blood pressure 154 mm[Hg] Dr. Georges Shafer Work Phone: [facility] Work Phone: 01-29-2022 14:25-0400 Body weight 90.9 kg Evelina Shafer MD Work Phone: [facility] 01-29-2022 14:25-0400 Respiratory rate 16 /min Evelina Shafer MD Work Phone: [facility] 01-29-2022 14:25-0400 SaO2% (BldA) [Mass fraction] 98 % Evelina Shafer MD Work Phone: [facility] 01-25-2022 19:57-0400 Diastolic blood pressure 77 mm[Hg] [facility] Work Phone: 01-25-2022 19:57-0400 Heart rate 83 /min [facility] Work Phone: 01-25-2022 19:57-0400 Respiratory rate 15 /min [facility] Work Phone: 01-25-2022 19:57-0400 SaO2% (BldA) [Mass fraction] 99 % [facility] Work Phone: 01-25-2022 19:57-0400 Systolic blood pressure 140 mm[Hg] [facility] Work Phone: 01-25-2022 15:56-0400 Body height 181.61 cm [facility] Work Phone: 01-25-2022 15:56-0400 Body mass index (BMI) [Ratio] 28.9 kg/m2 [facility] Work Phone: 01-25-2022 15:56-0400 Body temperature 98.3 [degF] [facility] Work Phone: 01-25-2022 15:56-0400 Body weight 95.5 kg [facility] Work Phone: 12-02-2021 09:26-0400 Body weight 91.08 kg Hedy Nevarez TREE SPECIALIST.PHYSICIAN GYNECOLOGIST Work Phone: [facility] 12-02-2021 09:26-0400 Diastolic blood pressure 77 mm[Hg] Hedy Nevarez TREE SPECIALIST.PHYSICIAN GYNECOLOGIST Work Phone: [facility] 12-02-2021 09:26-0400 Systolic blood pressure 128 mm[Hg] Hedy Nevarez TREE SPECIALIST.PHYSICIAN GYNECOLOGIST Work Phone: [facility] 11-11-2021 09:58-0400 Diastolic blood pressure 76 mm[Hg] Barbraa Orantes MD Work Phone: [facility] 11-11-2021 09:58-0400 Heart rate 66 /min Barbara Orantes MD Work Phone: [facility] 11-11-2021 09:58-0400 Systolic blood pressure 127 mm[Hg] Barbara Orantes MD Work Phone: [facility] 10-01-2021 11:12-0400 Body weight 89.9 kg Angie Podlogar TREE SPECIALIST.PHYSICIAN GYNECOLOGIST Work Phone: [facility] 10-01-2021 11:12-0400 Diastolic blood pressure 82 mm[Hg] Angie Podlogar TREE SPECIALIST.PHYSICIAN GYNECOLOGIST Work Phone: [facility] 10-01-2021 11:12-0400 Heart rate 70 /min Angie Podlogar TREE SPECIALIST.PHYSICIAN GYNECOLOGIST Work Phone: [facility] 10-01-2021 11:12-0400 Respiratory rate 18 /min Angie Podlogar TREE SPECIALIST.PHYSICIAN GYNECOLOGIST Work Phone: [facility] 10-01-2021 11:12-0400 SaO2% (BldA) [Mass fraction] 100 % Angie Podlogar TREE SPECIALIST.PHYSICIAN GYNECOLOGIST Work Phone: [facility] 10-01-2021 11:12-0400 Systolic blood pressure 118 mm[Hg] Angie Podlogar TREE SPECIALIST.PHYSICIAN GYNECOLOGIST Work Phone: [facility] Encounters Encounter Date Encounter Type Care Provider Facility Start: 01-24-2025 ambulatory Asia Qureshi NP Facili ty:[facility] Start: 01-18-2025 End: 01-18-2025 Patient encounter procedure Asia Qureshi QUALITY CONTROLLER-C -[facility] Work Phone: Start: 01-18-2025 End: 01-18-[address] Lenin Hidalgo MD Work Phone: -[facility] Start: 10-27-2024 End: 10-27-2024 ambulatory Chris Hawkins Facility:[facility] [place] Start: 10-27-2024 End: 10-27-2024 Patient encounter procedure Chris Hawkins [place] -[facility] Work Phone: Start: 10-16-2024 End: 10-16-[address] Miguel Kirby MD -[facility] Work Phone: Start: 10-16-2024 End: 10-16-2024 ambulatory Miguel Kirby Facility:[facility] [place] Start: 10-09-2024 ambulatory Miguel Kirby Facility: [facility] Start: 10-05-2024 End: 10-05-[address] Lenin Hidalgo MD Work Phone: [facility] Work Phone: Start: 10-05-2024 End: 10-05-[address] Lenin Hidalgo MD -Ultrasound, [facility] Work Phone: Start: 10-05-2024 End: 10-05-2024 ambulatory Allyn Gallegos Facility:[facility] Start: 10-02-2024 End: 10-02-[address] Lenin Hidalgo MD Work Phone: [facility] Work Phone: Start: 10-02-2024 End: 10-02-[address] Allyn Gallegos DO -Laboratory, [facility] Start: 10-02-2024 End: 10-02-2024 ambulatory Allyn Gallegos Facility:[facility] Start: 09-25-2024 End: 09-25-[address] Lenin Hidalgo MD Work Phone: [facility] Work Phone: Start: 09-25-2024 End: 09-25-[address] Lenin Hidalgo MD -Laboratory, [facility] Work Phone: Start: 09-25-2024 End: 09-25-2024 ambulatory Lenin Hidalgo Facility:[facility] Start: 09-19-2024 End: 09-19-[address] Lenin Hidalgo MD Work Phone: [facility] Work Phone: Start: 09-19-2024 End: 09-19-[address] Red Garcia MD -Laboratory, [facility] Start: 09-19-2024 End: 09-19-2024 ambulatory Lenin Hidalgo Facility:[facility] Start: 07-28-2024 End: 07-28-[address] Trenton Gerard MD -Cat Scan, [facility] Work Phone: Start: 07-28-2024 End: 07-28-2024 ambulatory Lenin Hidalgo Facility:[facility] Start: 07-17-2024 End: 07-17-[address] Lenin Hidalgo MD -Laboratory, [place] Work Phone: Start: 07-17-2024 End: 07-17-2024 ambulatory Lenin Hidalgo Facility:[facility] Start: 07-07-2024 Encounter for genera l adult medical examination without abnormal findings Lenin Hidalgo [facility] Start: 07-07-2024 End: 07-07-[address] Trenton Gerard MD -[place] [facility] Work Phone: Start: 07-07-2024 End: 07-07-2024 ambulatory Lenin Hidalgo Facility:[facility] Start: 06-16-2024 End: 06-16-[address] Lenin Hidalgo MD -Laboratory, [facility] Start: 06-16-2024 End: 06-16-2024 ambulatory Lenin Hidalgo Facility:[facility] Start: 06-12-2024 End: 06-12-[address] Delphine Neri M -MRI - [facility] Work Phone: Start: 06-12-2024 End: 06-12-2024 ambulatory Lenin Hidalgo Facility:[facility] Start: 06-05-2024 End: 06-05-[address] Lenin Hidalgo MD -Laboratory, [facility] Start: 06-05-2024 End: 06-05-2024 ambulatory Lenin Hidalgo Facility:[facility] Start: 05-24-2024 ambulatory [facility] Facility:[facility] Start: 05-24-2024 End: 05-24-2024 ambulatory Lenin Hidalgo Facility:[facility] Start: 05-22-2024 End: 05-22-2024 ambulatory Lenin Hidalgo Facility:[facility] Start: 05-16-2024 End: 05-16-2024 ambulatory Lenin Hidalgo Facility:[facility] Start: 05-09-2024 End: 05-09-2024 ambulatory Lenin Hidalgo Facility:[facility] Start: 04-21-2024 End: 04-21-2024 ambulatory Lenin Hidalgo Facility:[facility] Start: 04-19-2024 End: 04-19-2024 ambulatory Lenin Hidalgo Facility:[facility] Start: 03-28-2024 End: 03-28-2024 ambulatory Lenin Hidalgo Facility:[facility] Start: 03-14-2024 End: 03-14-2024 ambulatory Leninjeremiah Hidalgo Facility:[facility] Start: 11-29-2023 ambulatory Minna Jackman MA [facility] Start: 11-29-2023 Patient encounter procedure Minna Jackman MA [facility] Start: 11-07-2023 End: 11-08-2023 Emergency department patient visit Dr. Lenin Hidalgo Work Phone: [facility]-Emergency Department Work Phone: Start: 11-06-2023 End: 11-06-2023 Emergency department patient visit Dr. Lenin Hidalgo Work Phone: [facility]Emergency [facility] Work Phone: Start: 11-05-[address] Lenin Hidalgo Work Phone: [facility]-Laboratory Work Phone: Start: 11-05-2023 End: 11-05-[address] Lenin Hidalgo Work Phone: [facility] Work Phone: Start: 11-01-2023 End: 11-01-[address] Lenin Hidalgo Work Phone: [facility] Work Phone: Start: 11-01-2023 End: 11-01-[address] Lenin Hidalgo Work Phone: [facility] Start: 10-18-2023 End: 10-18-[address] Lenin Hidalgo Work Phone: [facility] Work Phone: Start: 10-18-2023 End: 10-18-[address] [facility] Start: 10-08-2023 End: 10-08-[address] Lenin Hidalgo Work Phone: [facility] Work Phone: Start: 10-08-2023 End: 10-08-[address] Lenin Hidalgo Work Phone: [facility], [facility] Work Phone: Start: 09-22-2023 End: 09-22-[address] Lenin Hidalgo Work Phone: [facility] Work Phone: Start: 09-22-2023 End: 09-22-[address] Lenin Hidalgo Work Phone: [facility] Work Phone: Start: 09-07-2023 End: 09-07-[address] Lenin Hidalgo Work Phone: [facility] Work Phone: Start: 09-07-2023 End: 09-07-[address] Lenin Hidalgo Work Phone: [facility] Start: 07-22-2023 End: 07-22-[address] Lenin Hidalgo Work Phone: [facility] Work Phone: Start: 07-22-2023 End: 07-22-[address] Lenin Hidalgo Work Phone: [facility] Start: 07-08-2023 End: 07-08-[address] Lenin Hidalgo Work Phone: [facility] Work Phone: Start: 07-06-2023 End: 07-06-[address] Lenin Hidalgo Work Phone: [facility] Work Phone: Start: 07-06-2023 End: 07-06-[address] Lenin Hidalgo Work Phone: [facility] Start: 05-03-2023 ambulatory Petty Joe RN [facility] Comment on above: cdm outreach (Teleph on cd) Start: 03-23-2023 End: 03-23-2023 ambulatory [facility] Work Phone: Start: 03-23-2023 End: 03-23-2023 Patient encounter procedure [facility] Work Phone: Start: 02-19-2023 End: 02-19-2023 ambulatory [facility] Work Phone: Start: 02-19-2023 End: 02-19-2023 Patient encounter procedure [facility] Start: 01-12-2023 ambulatory Evelina Shafer MD Work Phone: [facility] Comment on above: fluoxetine Start: 01-05-2023 ambulatory Michael cook MD Work Phone: Neurology Comment on above: Gabapentin Start: 12-01-2022 ambulatory Michael cook MD Work Phone: Neurology Comment on above: Gabapentin doseage . .... Start: 09-11-2022 Telephone encounter Georges Shafer MD Work Phone: [facility] Comment on above: Results Start: 09-10-2022 End: 09-10-2022 Patient encounter procedure Evelina Shafer MD Work Phone: [facility] Comment on above: Type 2 diabetes esperanza [...] with patient Michael Segal MD Work Phone: [facility] Start: 08-18-2022 Refill Michael cook MD Work Phone: Neurology Comment on above: Refill Request Start: 07-22-2022 Telephone encounter Barbara Farmer Work Phone: Urology Comment on above: Appointment Start: 07-21-2022 ambulatory Evelina Shafer MD Work Phone: [facility] [place] Comment on above: Prozac Gabapentin .. Start: 07-16-2022 ambulatory Michael cook MD Work Phone: Neurology Comment on above: Gabapentin Vs. Sleep Start: 06-24-2022 End: 06-24-2022 ambulatory EVELINA [facility] Start: 06-22-2022 ambulatory Michael cook MD Work Phone: Neurology Comment on above: Virtual Meeting for June 26. Start: 06-05-2022 End: 06-05-2022 ambulatory Michael Segal MD Work Phone: Neurology Comment on above: RLS (restless legs s yndrome) (Primary Dx) Start: 06-05-2022 End: 06-05-2022 Telemedicine consultation with patient Michael Segal MD Work Phone: [facility] Start: 06-01-2022 End: 06-01-2022 Patient encounter procedure Evelina Shafer MD Work Phone: [facility] [place] Comment on above: Anxiety with depress ion (Primary Dx); Nausea Start: 05-28-2022 Telephone encounter Georges Shafer MD Work Phone: [facility] [place] Comment on above: Results Start: 05-27-2022 End: 05-27-2022 Subsequent hospital visit by physician [facility] (I-Stat) Work Phone: Cat Scan Comment on above: Gross hematuria [R31 .0] Start: 05-22-2022 Telephone encounter Georges Shafer MD Work Phone: [facility] [place] Comment on above: Appointment Start: 05-19-2022 End: 05-19-2022 Patient encounter procedure Hedy Nevarez PHYSICIAN GYNECOLOGIST Work Phone: Kidney Medicine Comment on above: Hypertensive kidney disease with stage 3a chronic kidney disease (HCC) (Primary Dx); Hyponatremia Start: 05-18-2022 End: 05-18-2022 Patient encounter procedure Barbara Orantes MD Work Phone: Urology Comment on above: BPH with obstruction /lower urinary tract symptoms (Primary Dx); Gross hematuria; Erectile dysfunction, unspecified erectile dysfunction type Start: 05-16-2022 ambulatory Evelina Shafer MD Work Phone: [facility] [place] Comment on above: Flonase/Fluticasone ... 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 Refill Request Start: 04-17-2022 [facility] Work Phone: Neurology Comment on above: Psg Check In (Adult) Start: 04-17-2022 End: 04-17-2022 Patient encounter procedure Evelina Shafer MD Work Phone: [facility] [place] Comment on above: Primary hypertension (Primary Dx); Brain fog; History of COVID-19 Start: 04-16-2022 Refill Evelina Shafer MD Work Phone: [facility] [place] Comment on above: Refill Request Start: 04-14-2022 ambulatory Evelina Shafer MD Work Phone: [facility] Comment on above: Elevated Blood Press ure ... Start: 04-06-2022 Telephone encounter Georges Shafer MD Work Phone: [facility] Comment on above: Results Start: 03-31-2022 End: 03-31-2022 Emergency department patient visit Dr. Georges Shafer Work Phone: [facility]-Emergency Department Start: 03-24-2022 End: 03-24-2022 Patient encounter procedure Minna Soriano APRN.CNP Work Phone: [facility] Comment on above: Suspected COVID-19 v irus infection (Primary Dx); Exposure to confirmed case of COVID-19 Start: 03-16-2022 End: 03-16-2022 Admission to same day surgery center Dr. Georges Shafer Work Phone: [facility]-Foundry Superintendant/Special Procedures Start: 03-13-2022 Non-patient / Non-visit Dr. Lavon Shafer Work Phone: [facility] Start: 03-11-2022 End: 03-11-[address] Georges Shafer Work Phone: [facility] Work Phone: Start: 03-11-2022 End: 03-11-[address] Georges Shafer Work Phone: [facility]-Laboratory Start: 03-10-2022 Non-patient / Non-visit Dr. Lavon Shafer Work Phone: [facility] Start: 03-06-2022 Non-patient / Non-visit Dr. Lavon Shafer Work Phone: [facility] Start: 03-06-2022 End: 03-06-[address] Georges Shafer Work Phone: [facility] Work Phone: Start: 03-06-2022 End: 03-06-[address] Georges Shafer Work Phone: [facility]-Cardiovascul ar Services Start: 03-04-2022 ambulatory Evelina Shafer MD Work Phone: [facility] Comment on above: prozac Start: 03-03-2022 ambulatory Evelina Shafer MD Work Phone: [facility] Comment on above: prozac Start: 02-10-2022 End: 02-10-[address] Georges Shafer Work Phone: [facility]-Laboratory Start: 02-10-2022 End: 02-10-[address] Georges Shafer Work Phone: [facility] [facility] Start: 01-29-2022 End: 01-29-2022 Patient encounter procedure Evelina Shafer MD Work Phone: [facility] Comment on above: Dehydration (Primary Dx); TRUPTI (acute kidney injury) (HCC); Moderate episode of recurrent major depressive disorder (HCC) Start: 01-29-2022 Telephone encounter Andrew tineo DO Work Phone: Kidney Medicine Comment on above: TRUPTI (Acute Kidney In jury) Start: 01-28-2022 Telephone encounter Angie jacques APRN.PHYSICIAN GYNECOLOGIST Work Phone: [facility] Comment on above: Results Start: 01-26-2022 ambulatory Evelina Shafer MD Work Phone: [facility] Comment on above: UPCOMING ARASELI'T. Start: 01-25-2022 End: 01-25-2022 Emergency department patient visit [facility]-Emergency Department Start: 01-06-2022 Telephone encounter Angie jacques APRN.PHYSICIAN GYNECOLOGIST Work Phone: [facility] Comment on above: Results Start: 12-30-2021 End: 12-30-2021 Patient encounter procedure Daniel Alexandre Work Phone: Podiatry Comment on above: Type 2 diabetes esperanza itus without complication, with long-term current use of insulin (HCC) (Primary Dx); Plantar fasciitis; Hallux limitus, acquired, unspecified laterality Start: 12-30-2021 End: 12-30-2021 Subsequent hospital visit by physician [facility] [place] [facility] Work Phone: Radiology Comment on above: Pain [R52] Start: 12-08-2021 ambulatory Evelina Shafer MD Work Phone: [facility] [place] Comment on above: prozac Start: 12-02-2021 End: 12-02-2021 Patient encounter procedure Hedy Nevarez TREE SPECIALIST.PHYSICIAN GYNECOLOGIST Work Phone: Kidney Medicine Comment on above: CKD (chronic kidney disease) stage 2, GFR 60-89 ml/min (Primary Dx); Hyponatremia Start: 11-28-2021 ambulatory Angelina hernandez RN Work Phone: [employer] [facility] Comment on above: [employer] Monitor ing (Update) Start: 11-11-2021 End: 11-11-2021 Patient encounter procedure Barbara Orantes MD Work Phone: Urology Comment on above: BPH with obstruction /lower urinary tract symptoms (Primary Dx); Erectile dysfunction, unspecified erectile dysfunction type Start: 10-14-2021 ambulatory Evelina Shafer MD Work Phone: [facility] [place] Comment on above: Second part of my em ail Start: 10-01-2021 End: 10-01-2021 Patient encounter procedure Angie Li TREE SPECIALIST.PHYSICIAN GYNECOLOGIST Work Phone: [facility] [place] Comment on above: Anxiety with depress ion Start: 09-24-2021 ambulatory Kiersten fox RN Work Phone: [employer] [facility] Comment on above: community monitoring outreach (enrollment) Start: 09-23-2021 ambulatory Evelina Shafer MD Work Phone: [facility] [place] Comment on above: Zoloft Start: 08-15-2021 Telephone encounter Georges Shafer MD Work Phone: [facility] [place] Comment on above: Results Start: 06-30-2021 End: 06-30-2021 Subsequent hospital visit by physician [facility] [place] Work Phone: Radiology Comment on above: Hyperreflexia [R29.2 ] Start: 11-26-2020 Patient encounter status [facility] Start: 09-24-2020 End: 09-24-2020 Subsequent hospital visit by physician [facility] [place] Work Phone: Radiology Comment on above: Acute pain of both k nees [M25.561, M25.562] Procedures Date Procedure Procedure Detail Performing Clinician Start: 10-05-2024 US scan of thyroid Dr. Lenin Hidalgo MD Work Phone: Start: 10-05-[address] Lenin Hidalgo MD Work Phone: Start: 10-02-2024 Vitamin D, 25-hydrox y measurement Dr. Lenin Hidalgo MD Work Phone: Comment on above: Vitamin D StatusDefi ciency: <20 ng/mL (50nmol/L)Insufficiency: 20-30 ng/mL (50-75 nmol/L)Sufficiency: 30-100 ng/mL (75-250 nmol/L)Toxicity: >100 ng/mL (>250 nmol/L) Start: 09-19-[address] e detection Dr. Lenin Hidalgo MD Work Phone: Start: 07-28-2024 CT angiography of ch est with contrast Dr. Lenin Hidalgo MD Work Phone: Start: 06-12-2024 MRI of lower limb wi th contrast Dr. Lenin Hiadlgo MD Work Phone: Start: 11-07-2023 CT of head without contrast Dr. Lenin Hidalgo Work Phone: Start: 11-07-2023 Plain chest X-ray Dr. Eron Hidalgo Work Phone: Start: 11-06-2023 Plain chest X-ray Dr. Eron Hidalgo Work Phone: Start: 10-08-2023 US scan of thyroid Dr. Lenin Hidalgo Work Phone: Start: 09-22-2023 MRI of brain with contrast Dr. Lenin Hidalgo Work Phone: Start: 05-27-2022 Ct abdomen & pelvis w/o contrst 1/> body re Luigi Suresh MD Work Phone: Start: 05-01-2022 PFIZER-BIONTCognia COVI D-19 BIVALENT BOOSTER VACCINE, AGE 12+ YR Evelina Shafer MD Work Phone: Start: 03-31-2022 Plain chest X-ray Dr. Wen Shafer Work Phone: Start: 03-31-2022 CT of head without contrast Dr. Georges Shafer Work Phone: Start: 03-06-2022 Radionuclide imaging of perfusion of myocardium under exercise stress Dr. Georges Shafer Work Phone: Start: 01-25-2022 Plain chest X-ray Start: 12-30-2021 Radex foot complete minimum 3 views Daniel Marybren Work Phone: Start: 11-11-2021 Urnls dip stick/tabl et rgnt auto w/o microscopy Barbara Orantes MD Work Phone: Start: 08-14-2021 Adult depression scr eening assessment Evelina Shafer MD Work Phone: Start: 06-30-2021 Radex spine cervical 2 or 3 views Osman Allison MD Work Phone: Start: 09-24-2020 Radiologic exam knee complete 4/more views Angie Li TREE SPECIALIST.PHYSICIAN GYNECOLOGIST Work Phone: Start: 01-19-2014 Colonoscopy Georges Shafer MD Work Phone: SARS-CoV-2 & FLU Ant igen (Rapid) Plan of Treatment Date Care Activity Detail Author Start: 12-18-2026 Urine microalbumin profile [facility] Start: 2026 RSV Vaccine (1 - 1-d ose 75+ series) RSV Vaccine (1 - 1-dose 75+ series) [facility] Start: 02-27-2024 Covid-19 Vaccine ( season) Covid-19 Vaccine ( season) [facility] Start: 02-27-2024 [facility] Start: 01-20-2024 Colonoscopy COLONOSCOPY [facility] Start: 01-20-2024 COLORECTAL CANCER SCREENING COLORECTAL CANCER SCREENING [facility] Start: 01-20-2024 Screening for malign ant neoplasm of colon [facility] Start: 11-08-2023 [facility] Start: 11-07-2023 [facility] Start: 11-06-2023 [facility] Start: 11-05-2023 Thyroid stimulating immunoglobulins actual/normal in Serum [facility] Start: 09-11-2023 3 comp foot exam completed DIABETIC FOOT EXAM [facility] Start: 09-11-2023 ANNUAL PCP TEAM LACE STRIPPER MELINA DISEASE VISIT ANNUAL PCP TEAM CHRONIC DISEASE VISIT [facility] Start: 09-11-2023 BP CONTROLLED (<130/80) BP CONTROLLE D (<130/80) [facility] Start: 09-11-2023 Creatinine measurement Serum Creatin ine [facility] Start: 09-11-2023 Diabetic foot examination Diabetic F oot Exam [facility] Start: 09-11-2023 SERUM CREATININE SERUM CREATININE [facility] Start: 08-06-2023 BP CONTROLLED (<130/80) BP CONTROLLE D (<130/80) [facility] Start: 07-29-2023 Glaucoma screening Dilated Retinal E xam [facility] Start: 07-29-2023 Hepatitis C antibody , confirmatory test DILATED RETINAL EXAM [facility] Start: 06-28-2023 Advance Directive Discussion Advance Directive Discussion [facility] Start: 06-28-2023 Behavioral Health Screening Behavioral Health Screening [facility] Start: 06-01-2023 ANNUAL PCP TEAM LACE STRIPPER MELINA DISEASE VISIT ANNUAL PCP TEAM CHRONIC DISEASE VISIT [facility] Start: 06-01-2023 BP CONTROLLED (<130/80) BP CONTROLLE D (<130/80) [facility] Start: 05-28-2023 SERUM CREATININE SERUM CREATININE [facility] Start: 05-19-2023 BP CONTROLLED (<130/80) BP CONTROLLE D (<130/80) [facility] Start: 05-01-2023 ANNUAL PCP TEAM LACE STRIPPER MELINA DISEASE VISIT ANNUAL PCP TEAM CHRONIC DISEASE VISIT [facility] Start: 05-01-2023 BP CONTROLLED (<130/80) BP CONTROLLE D (<130/80) [facility] Start: 04-17-2023 ANNUAL PCP TEAM LACE STRIPPER MELINA DISEASE VISIT ANNUAL PCP TEAM CHRONIC DISEASE VISIT [facility] Start: 03-31-2023 ANNUAL PCP TEAM LACE STRIPPER MELINA DISEASE VISIT ANNUAL PCP TEAM CHRONIC DISEASE VISIT [facility] Start: 03-13-2023 Hemoglobin A1c measurement HbA1C [facility] Start: 03-13-2023 Hemoglobin A1c/Hemoglobin.total in Blood HBA1C [facility] Start: 02-26-2023 Covid-19 Vaccine () Covid-19 Vaccine () [facility] Start: 02-26-2023 Influenza vaccination C [facility] Start: 01-29-2023 ANNUAL PCP TEAM LACE STRIPPER MELINA DISEASE VISIT ANNUAL PCP TEAM CHRONIC DISEASE VISIT [facility] Start: 01-29-2023 SERUM CREATININE SERUM CREATININE [facility] Start: 01-27-2023 Hepatitis B surface antibody level LDL CHOLESTEROL [facility] Start: 01-05-2023 ANNUAL PCP TEAM LACE STRIPPER MELINA DISEASE VISIT ANNUAL PCP TEAM CHRONIC DISEASE VISIT [facility] Start: 01-05-2023 BP CONTROLLED (<130/80) BP CONTROLLE D (<130/80) [facility] Start: 01-05-2023 Hepatitis B screening URINE AL BUMIN:CREATININE RATIO [facility] Start: 01-05-2023 SERUM CREATININE SERUM CREATININE [facility] Start: 12-02-2022 BP CONTROLLED (<130/80) BP CONTROLLE D (<130/80) [facility] Start: 11-22-2022 Hemoglobin A1c/Hemoglobin.total in Blood HBA1C [facility] Start: 11-13-2022 HEMOGLOBIN/HEMATOCRIT HEMOGLOBIN/HEM ATOCRIT [facility] Start: 11-13-2022 SERUM CREATININE SERUM CREATININE Cl [facility] Start: 11-11-2022 BP CONTROLLED (<130/80) BP CONTROLLE D (<130/80) [facility] Start: 10-15-2022 ANNUAL PCP TEAM LACE STRIPPER MELINA DISEASE VISIT ANNUAL PCP TEAM CHRONIC DISEASE VISIT [facility] Start: 10-15-2022 BP CONTROLLED (<130/80) BP CONTROLLE D (<130/80) [facility] Start: 10-01-2022 ANNUAL PCP TEAM LACE STRIPPER MELINA DISEASE VISIT ANNUAL PCP TEAM CHRONIC DISEASE VISIT [facility] Start: 10-01-2022 BP CONTROLLED (<130/80) BP CONTROLLE D (<130/80) [facility] Start: 09-11-2022 End: 11-11-2022 POTASSIUM BLD POTASSIUM BLD Lab Routine Hyperkalemia Expected: 09/11/2022, Expires: 11/11/2022 [facility] Work Phone: Comment on above: Expected: 09/11/2022 , Expires: 11/11/2022 Start: 09-10-2022 End: 11-10-2022 Comprehensive metabolic 2000 panel - Serum or Plasma [facility] Work Phone: Comment on above: Expected: 09/10/2022 , Expires: 11/10/2022 Start: 09-10-2022 End: 11-10-2022 Hemoglobin A1c in Blood [facility] Work Phone: Comment on above: Expected: 09/10/2022 , Expires: 11/10/2022 Start: 09-10-2022 End: 11-10-2022 Magnesium [Mass/volume] in Serum or Plasma [facility] Work Phone: Comment on above: Expected: 09/10/2022 , Expires: 11/10/2022 Start: 09-04-2022 SERUM CREATININE SERUM CREATININE [facility] Start: 08-29-2022 COVID-19 VACCINE (7 - Moderna series) COVID-19 VACCINE (7 - Moderna series) [facility] Start: 08-14-2022 Adult depression screening assessment DEPRESSION SCREENING [facility] Start: 08-14-2022 ANNUAL PCP TEAM LACE STRIPPER MELINA DISEASE VISIT ANNUAL PCP TEAM CHRONIC DISEASE VISIT [facility] Start: 07-08-2022 Hemoglobin A1c/Hemoglobin.total in Blood HBA1C [facility] Start: 07-07-2022 3 comp foot exam completed DIABETIC FOOT EXAM [facility] Start: 01-05-2023 Hepatitis C antibody , confirmatory test DILATED RETINAL EXAM [facility] Start: 06-28-2022 ADVANCE DIRECTIVE DISCUSSION ADVANCE DIRECTIVE DISCUSSION [facility] Start: 06-28-2022 DEPRESSION ASSESSMENT DEPRESSION ASS ESSMENT [facility] Start: 05-18-2022 End: 07-18-2022 CREATININE BLD CREATININE BLD Lab Routine Gross hematuria Expected: 05/18/2022 (Approximate), Expires: 07/18/2022 [facility] Work Phone: Comment on above: Expected: 05/18/2022 (Approximate), Expires: 07/18/2022 Start: 05-04-2022 End: 07-04-2022 Bacteria identified in Urine by Culture URINE CULTURE Microbiology Routine BPH with obstruction/lower urinary tract symptoms Expected: 05/04/2022, Expires: 07/04/2022 [facility] Work Phone: Comment on above: Expected: 05/04/2022 , Expires: 07/04/2022 Start: 05-04-2022 End: 07-04-2022 Urinalysis complete panel - Urine URINALYSIS, WITH MICROSCOPIC Lab Routine BPH with obstruction/lower urinary tract symptoms Expected: 05/04/2022, Expires: 07/04/2022 [facility] Work Phone: Comment on above: Expected: 05/04/2022 , Expires: 07/04/2022 Start: 05-01-2022 End: 07-01-2022 Comprehensive metabolic 2000 panel - Serum or Plasma COMP METABOLIC PANEL Lab Routine Type 2 diabetes mellitus without complication, without long-term current use of insulin (HCC) Hyponatremia Expected: 05/01/2022, Expires: 07/01/2022 [facility] Work Phone: Comment on above: Expected: 05/01/2022 , Expires: 07/01/2022 Start: 05-01-2022 End: 07-01-2022 Hemoglobin A1c in Blood HGB A1C Lab Routine Type 2 diabetes mellitus without complication, without long-term current use of insulin (HCC) Expected: 05/01/2022, Expires: 07/01/2022 [facility] Work Phone: Comment on above: Expected: 05/01/2022 , Expires: 07/01/2022 Start: 03-31-2022 [facility] Work Phone: Start: 03-24-2022 End: 04-07-2022 Influenza virus A and B RNA and SARS-CoV-2 (COVID-19) N gene panel - Respiratory specimen by ZAMZAM with probe detection COVID WITH FLUA+B, ROUTINE Microbiology Routine Suspected COVID-19 virus infection Exposure to confirmed case of COVID-19 Expected: 03/24/2022, Expires: 04/07/2022 [facility] Work Phone: Comment on above: Expected: 03/24/2022 , Expires: 04/07/2022 Start: 02-26-2022 Influenza vaccination INFLUENZA (#1) [facility] Start: 02-12-2022 Hepatitis B surface antibody level LDL CHOLESTEROL [facility] Start: 02-01-2022 End: 04-03-2022 Basic metabolic 2000 panel - Serum or Plasma BASIC METABOLIC PNL Lab Routine CKD (chronic kidney disease) stage 2, GFR 60-89 ml/min Hyponatremia Expected: 02/01/2022, Expires: 04/03/2022 [facility] Work Phone: Comment on above: Expected: 02/01/2022 , Expires: 04/03/2022 Start: 01-29-2022 End: 03-31-2022 Basic metabolic 2000 panel - Serum or Plasma [facility] Work Phone: Comment on above: Expected: 01/29/2022 , Expires: 03/31/2022 Start: 01-06-2022 End: 03-08-2022 Lipid 1996 panel - Serum or Plasma LIPID PANEL BASIC Lab Routine Screening for hyperlipidemia Expected: 01/06/2022, Expires: 03/08/2022 [facility] Work Phone: Comment on above: Expected: 01/06/2022 , Expires: 03/08/2022 Start: 01-05-2022 Hemoglobin A1c/Hemoglobin.total in Blood HBA1C [facility] Start: 12-31-2021 Hepatitis B screening URINE AL BUMIN:CREATININE RATIO [facility] Start: 12-06-2021 HEMOGLOBIN/HEMATOCRIT HEMOGLOBIN/HEM ATOCRIT [facility] Start: 11-20-2021 COVID-19 VACCINE (5 - Booster for Moderna series) COVID-19 VACCINE (5 - Booster for Moderna series) [facility] Start: 11-11-2021 End: 2022 Prostate Specific Ag Free [Mass/volume] in Serum or Plasma PSA FREE Lab Routine BPH with obstruction/lower urinary tract symptoms Expected: 11/11/2021, Expires: 2022 [facility] Work Phone: Comment on above: Expected: 11/11/2021 , Expires: 2022 Start: 11-11-2021 End: 2022 Testosterone [Mass/volume] in Serum or Plasma TESTOSTERONE TOTAL Lab Routine Erectile dysfunction, unspecified erectile dysfunction type Expected: 11/11/2021, Expires: 2022 [facility] Work Phone: Comment on above: Expected: 11/11/2021 , Expires: 2022 Start: 08-24-2021 COVID-19 VACCINE (4 - Booster for Moderna series) COVID-19 VACCINE (4 - Booster for Moderna series) [facility] Start: 06-28-2021 ADVANCE DIRECTIVE DISCUSSION ADVANCE DIRECTIVE DISCUSSION [facility] Start: 06-28-2021 DEPRESSION ASSESSMENT DEPRESSION ASS ESSMENT [facility] Start: 07-18-2013 FECAL OCCULT BLOOD FECAL OCCULT BLOO D [facility] Start: 07-18-2013 Screening for malign ant neoplasm of colon Fecal Occult Blood [facility] Start: 2011 Hepatitis B Vaccine (1 of 3 - Risk 3-dose series) Hepatitis B Vaccine (1 of 3 - Risk 3-dose series) [facility] Start: 2011 RSV Vaccine (1 - 1-d ose 60+ series) RSV Vaccine (1 - 1-dose 60+ series) [facility] Start: 01-12-1996 COLOGUARD (FIT-DNA) COLOGUARD (FIT-D NA) [facility] Start: 01-12-[address] COLONOGRAPHY [facility] Start: 01-12-1996 Screening for malign ant neoplasm of colon [facility] Start: 01-12-1996 SIGMOIDOSCOPY SIGMOIDOSCOPY Emeka desouza [facility] Start: 1969 Anxiety Screening Anxiety Screening [facility] Start: 1969 BP CONTROLLED (<130/80) BP CONTROLLE D (<130/80) [facility] Start: 1969 Depression Screening Depression Scre ening [facility] Basic metabolic 2008 panel with ionized calcium - Serum or Plasma [facility] End: 06-17-2023 Ct abdomen & pelvis w/o contrst 1/> body re CT UROGRAM WO/W IVCON Radiology Routine Gross hematuria 1 Occurrences starting 05/18/2022 until 06/17/2023 [facility] Work Phone: Comment on above: 1 Occurrences starti ng 05/18/2022 until 06/17/2023 CYTOLOGY NON-DIRECTORY ASSISTANCE OPERATOR CYTOLOGY NON-GY N Lab Routine Gross hematuria 05/18/2022 12:23 PM EST [facility] Work Phone: Elastase.pancreatic [Presence] in Stool [facility] Lipid 1995 panel - S barbie or Plasma [facility] Patient Education [facility] Work Phone: Patient referral [facility] Work Phone: Protein/Creatinine [ Mass Ratio] in Urine PROTEIN CREATININE RATIO Lab Routine CKD (chronic kidney disease) stage 2, GFR 60-89 ml/min Ordered: 12/02/2021 [facility] Work Phone: Comment on above: Ordered: 12/02/2021 Radionuclide imaging of perfusion of myocardium under exercise stress [facility] Immunizations Immunization Date Immunization Notes Care Provider Matt jones 05-01-2022 COVID-19 booster vaccine, age 12+ yr, bivalent (PFIZER-BIONTCognia) Evelina Shafer MD Work Phone: [facility] 04-15-2022 influenza virus vaccine, unspecified formulation Ct (I-Stat) Work Phone: [facility] 09-02-2021 COVID-19 vaccine, ag e 12+ yr (PFIZER-[employer] TechnologiesNTCognia - PURPLE TOP) Angie Li TREE SPECIALIST.PHYSICIAN GYNECOLOGIST Work Phone: [facility] Work Phone: 04-23-2021 COVID-19 vaccine, fu ll dose (MODERNA) Evelina Shafer MD Work Phone: [facility] 04-23-2021 influenza (aIIV4) vaccine, age 65+ yr, quadrivalent, PF (FLUAD QUADRIVALENT) Angie Nuñezloglibrado TREE SPECIALIST.PHYSICIAN GYNECOLOGIST Work Phone: [facility] Work Phone: 02-25-2021 influenza, high dose seasonal, preservative-free Evelina Shafer MD Work Phone: [facility] 09-10-2020 COVID-19 vaccine, fu ll dose (MODERNA) Evelina Shafer MD Work Phone: [facility] 08-14-2020 COVID-19 vaccine, fu ll dose (MODERNA) Evelina Shafer MD Work Phone: [facility] 03-12-2020 influenza, high-dose , quadrivalent vaccine (FLUZONE HIGH DOSE QUADRIVALENT) Evelina Shafer MD Work Phone: [facility] Work Phone: 03-11-2020 influenza, high-dose , quadrivalent vaccine (FLUZONE HIGH DOSE QUADRIVALENT) Evelina Shafer MD Work Phone: [facility] Work Phone: 12-13-2019 zoster vaccine recombinant Evelina Shafer MD Work Phone: [facility] 08-02-2019 zoster vaccine recombinant Evelina Shafer MD Work Phone: [facility] 03-20-2019 influenza virus vaccine, unspecified formulation Evelina Shafer MD Work Phone: [facility] Work Phone: 10-18-2018 measles, mumps and rubella virus vaccine Evelina Shafer MD Work Phone: [facility] 06-24-2018 influenza, high dose seasonal, preservative-free Evelina Shafer MD Work Phone: [facility] 07-26-2017 influenza, seasonal, injectable Evelina Shafer MD Work Phone: [facility] 07-26-2017 pneumococcal polysaccharide vaccine, 23 valent Evelina Shafer MD Work Phone: [facility] 12-18-2016 tetanus and diphther ia toxoids, adsorbed, preservative free, for adult use (5 Lf of tetanus toxoid and 2 Lf of diphtheria toxoid) Evelina Shafer MD Work Phone: [facility] 05-26-2016 pneumococcal conjuga te vaccine, 13 valent Evelina Shafer MD Work Phone: [facility] 04-09-2015 influenza, injectabl e, quadrivalent, contains preservative Evelina Shafer MD Work Phone: [facility] 10-11-2014 zoster vaccine, live Huey wendy Shafer MD Work Phone: [facility] 07-18-2012 influenza virus vaccine, unspecified formulation Evelina Shafer MD Work Phone: [facility] 08-02-2009 pneumococcal polysaccharide vaccine, 23 valent Evelina Shafer MD Work Phone: [facility] 08-02-2009 tetanus toxoid, redu tanna diphtheria toxoid, and acellular pertussis vaccine, adsorbed Evelina Shafer MD Work Phone: [facility] 04-24-2009 influenza virus vaccine, unspecified formulation Evelina Shafer MD Work Phone: [facility] 05-31-2008 influenza virus vaccine, unspecified formulation Evelina Shafer MD Work Phone: [facility] Work Phone: Payers Date Payer Category Payer Self-pay [id number] 2023 Medicare [id number] 2023 Unknown [id number] 2018 Unknown MMO MMO MEDICARE SUPPLEMENT [id number] 2018-Present [phone] [address] [place] [address] Indemnity [id number] 2018 Unknown MMO MMO MEDICARE SUPPLEMENT [id number] 2018-Present [phone] [address] [place] [address] Indemnity [id number] 2015 Medicare MEDICARE MEDICAR E A AND B [id number] 2015-Present [phone] [place] [id number] Medicare [id number] 2015 Medicare MEDICARE MEDICAR E A AND B [id number] 2015-Present [phone] [place] [address] Medicare [id number] 1950 Unknown [id number] Unknown [id number] Unknown [id number] Unknown [id number] Unknown [id number] [id number] Unknown [id number] [id number] Unknown [id number] [id number] Unknown [id number] [id number] Unknown [id number] [id number] Unknown [id number] [id number] Unknown [id number] [id number] Unknown [id number] [id number] Unknown [id number] [id number] Unknown [id number] 2.840.1.297941.3.579.2.462 Unknown [id number] [id number] Unknown [id number] [id number] Unknown [id number] [id number] Unknown [id number] [id number] Unknown [id number] [id number] Unknown [id number] [id number] Unknown [id number] [id number] Unknown [id number] [id number] Unknown [id number] [id number] Unknown [id number] [id number] Unknown [id number] [id number] Unknown [id number] Unknown [id number] Social History Date Type Detail Facility Start: 06-08-2016 End: 01-18-2025 Tobacco smoking status NHIS Never smoked tobacco [facility] Start: 07-03-2020 End: 08-14-2021 Alcohol intake Ex-drinker (finding) [facility] Start: 08-12-2021 End: 05-26-2022 History SDOH Alcohol Frequency 1 [facility] Start: 08-12-2021 End: 05-26-2022 History SDOH Social Connections Phone 5 [facility] Start: 08-12-2021 End: 05-26-2022 History SDOH Social Connections Get Together 2 [facility] Start: 08-12-2021 End: 05-26-2022 History SDOH Social Connections Living 3 [facility] Start: 06-25-2019 Education 12 [facility] Start: 1950 Sex Assigned At Male [facility] Start: 08-25-2020 End: 05-28-2022 Exposure to SARS-CoV-2 (event) Not sure [facility] Start: 01-25-2022 End: 11-07-2023 Tobacco smoking status NHIS Unknown if ever smoked [facility] Start: 05-30-2019 Non-smoker [facility] Start: 01-16-2022 End: 01-26-2022 Exposure to SARS-CoV-2 (event) Unable to assess [facility] Work Phone: Start: 06-08-2016 End: 03-24-2022 Tobacco use and exposure Smokeless tobacco non-user [facility] Start: 11-29-2022 History SDOH Alcohol Std Drinks 0 [facility] Start: 05-26-2022 History SDOH Physical Activity DPW 6 [facility] Start: 06-01-2020 End: 05-26-2022 History of Social function [facility] Start: 06-01-2020 End: 05-26-2022 Social connection and isolation panel [facility] Do you belong to any clubs or organizations such as gnosticist groups, unions, fraternal or athletic groups, or school groups? No [facility] Are you now , , , , never or living with a partner? [facility] How often to you hav e a drink containing alcohol? Never [facility] How many standard dr inks containing alcohol do you have on a typical day? Patient does not drink [facility] How hard is it for y ou to pay for the very basics like food, housing, medical care, and heating Somewhat hard [facility] Do you feel stress - tense, restless, nervous, or anxious, or unable to sleep at night because your mind is troubled all the time - these days [OSQ] Only a little [facility] (I/We) worried racheal er (my/our) food would run out before (I/we) got money to buy more. Never true [facility] Start: 01-05-2019 Gender identity Identifies as male gender (finding) [facility] Start: 04-11-2019 Sexual orientation Heterosexual (finding) [facility] Do you feel stress - tense, restless, nervous, or anxious, or unable to sleep at night because your mind is troubled all the time - these days [OSQ] Very much [facility] Start: 09-25-2024 End: 10-10-2024 Sex Male (finding) [facility] Medical Equipment Procedure Code Equipment Code Equipment Origin al Text Equipment Identifier Dates Rhinoplasty LATERA NASAL IMPLANT SET FDA Start: 06-06-2019 Rhinoplasty LATERA NASAL IMPLANT SET FDA Start: 06-06-2019 Rhinoplasty LATERA NASAL IMPLANT SET FDA Start: 06-06-2019 Rhinoplasty LATERA NASAL IMPLANT SET FDA Start: 06-06-2019 Rhinoplasty LATERA NASAL IMPLANT SET FDA Start: 06-06-2019 Rhinoplasty LATERA NASAL IMPLANT SET FDA Start: 06-06-2019 Rhinoplasty LATERA NASAL IMPLANT SET FDA Start: 06-06-2019 Rhinoplasty LATERA NASAL IMPLANT SET FDA Start: 06-06-2019 Rhinoplasty LATERA NASAL IMPLANT SET FDA Start: 06-06-2019 Rhinoplasty LATERA NASAL IMPLANT SET FDA Start: 06-06-2019 Rhinoplasty LATERA NASAL IMPLANT SET FDA Start: 06-06-2019 Rhinoplasty LATERA NASAL IMPLANT SET FDA Start: 06-06-2019 Rhinoplasty LATERA NASAL IMPLANT SET FDA Start: 06-06-2019 Rhinoplasty LATERA NASAL IMPLANT SET FDA Start: 06-06-2019 Rhinoplasty LATERA NASAL IMPLANT SET FDA Start: 06-06-2019 Rhinoplasty LATERA NASAL IMPLANT SET FDA Start: 06-06-2019 Rhinoplasty LATERA NASAL IMPLANT SET FDA Start: 06-06-2019 Rhinoplasty LATERA NASAL IMPLANT SET FDA Start: 06-06-2019 Rhinoplasty LATERA NASAL IMPLANT SET FDA Start: 06-06-2019 Rhinoplasty LATERA NASAL IMPLANT SET FDA Start: 06-06-2019 [id number], [id number], [id number] Start: 11-02-2013 End: 10-14-2022 Comment on above: [...] and to be on the 75mg daily. Mental Status Date Assessment Result Facility 01-25-2022 Cognitive function Level Of Cons ciousness Awake;Alert;Appropriate;Follow s Commands [facility] Work Phone: Clinical Notes 09-24-2020 to 10-16-2024 Note Date & Type Note Facility 10-16-2024 Evaluation note Diagnosis Onset Date Resolution Thyroid nodule acute September 1:00pm Atherosclerotic heart disease of seminole coronary artery without angina pectoris acute October 27, 2024 11:00am Dizziness acute October 27, 2024 11:00am MCCONNELL (dyspnea on exertion) acute October 27, 2024 11:00am Syncope acute October 27, 2024 11:00am Essential hypertension chronic Ma y 2025 11:00am Pure hypercholesterolemia chronic October 27, 2024 11:00am Right bundle branch block chronic October 27, 2024 11:00am Atherosclerotic heart disease of seminole coronary artery without angina pectoris acute January 18, 2025 9:06am Dizziness acute January 18 9:06am MCCONNELL (dyspnea on exertion) acute January 18, 2025 9:06am Syncope acute January 18 9:06am Essential hypertension chronic Ju 2024 9:06am Pure hypercholesterolemia chronic January 18, 2025 9:06am Right bundle branch block chronic January 18, 2025 9:06am [facility] Work Phone: 1(808) 604-262204-10-2025 Radiology Diagnostic study note [facility] Imaging Services [address] [place] [address] Thyroid MR#: [id number] Acct: [id number] Name: OSMAN PADGETT Rep #: [id number] : 1950 M 74 From: Vera Esparza MD PCP: Dr. Lenin Hidalgo MD Status: REG CLI Study:Thyroid Date of Exam: 10/05/24 Exam# [id number] Ordering Dr: Melinda Kirby MD PROCEDURE: THYROID 10/05/2024 REASON FOR EXAM: THYROID ULTRASOUND TECHNIQUE: Thyroid ultrasound COMPARISON: CTA chest 07/28/2024. FINDINGS: Right thyroid lobe measures 5.7 x 1.6 x 2.1 cm. Left thyroid lobe measures 4.3 x 1.7 x 1.4 cm. Isthmus thickness is0.3 cm. Thyroid Size: Normal Background Echotexture: Homogeneous Thyroid Nodules: No suspicious thyroid nodules visualized. US/Thyroid IMPRESSION: Normal thyroid ultrasound. No suspicious thyroid nodules meeting ACR TI-RADS criteria for follow-up. Reading Location: [facility] CC: Dr. Lenin Hidalgo MD; Dr. Miguel Kirby MD ~ Continuous Improvement Director: Signed [facility]04-10-2025 Radiology Diagnostic study note [facility] Imaging Services [address] [place] [address] Abdomen Limited MR#: [id number] Acct: [id number] Name: OSMAN PADGETT Rep #: [id number] : 1950 M 74 From: And neeraj Carl DO PCP: Dr. Lenin Hidalgo MD Status: REG CLI Study:Abdomen Limited Date of Exam: 09/26 Exam# [id number] Ordering Dr: Curtis Hidalgo MD PROCEDURE: Abdominal ultrasound. 10/05/2024 REASON FOR EXAM: EXOCRINE PANCREATIC INSUFFICIENCY TECHNIQUE: Sonographic evaluation of the upper abdomen was performed. COMPARISON: None available FINDINGS: Included portions of the pancreas show no specific abnormality. No abdominal ascites. Segmentally visualized portions of the liver demonstrate coarse echotexture, without discrete parenchymal lesion. A solitary 2 cm echogenic gallstone is present. No significant gallbladder wall thickening or pericholecystic fluid. Negative sonographic Elliott's sign. The common duct is measured at 5 mm. The right kidney is 10.7 cm in length, unremarkable. US/Abdomen Limited IMPRESSION: Cholelithiasis without evidence of acute cholecystitis. Negative sonographic Elliott's sign reported. Coarse liver echotexture may be due to fatty metamorphosis. The remainder of the examination is unremarkable. Reading Location: [facility] CC: Dr. Lenin Hidalgo MD ~ Continuous Improvement Director: Signed [facility]01-10-2025 Evaluation note* Diagnosis Onset Date Resolution Status Admit Date 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 July 07 11:20am Dizziness acute July 07, 2024 11:20am MCCONNELL (dyspnea on exertion) acute July 07, 2024 11:20am SOB (shortness of breath) acute July 07, 2024 11:20am Essential hypertension chronic [facility]2024 11:20am Pure hypercholesterolemia chronic July 07, 2024 11:20am Right bundle branch block chronic July 07, 2024 11:20am [facility] Work Phone: 1(564) 237-354206-03-2024 NoteHNO ID: [id number] Author: MINNA JACKMAN MA Service: ? Author Type: Generation Manager Type: Progress Notes Filed: 11/29/2023 10:32 Note Text: POPULATION HEALTH NAVIGATION OUTREACH Action/FYI PCP is Dr. Hidalgo per chart PCP FIELD UPDATES Reason for Outreach Care Gap/HCC or Scheduling Wellness Visits Care Gaps due: Establish Care Appointment Patient Contacted: Unable or unnecessary to reach patient: PCP field updated Navigation Signature: Minna Jackman MA November 29, 2023 10:29 [facility]06-03-2024 History of Present illness Narrative* Minna Jackman MA - 11/29/2023 10:29 AM EDT POPULATION HEALTH NAVIGATION OUTREACH Action/FYI PCP is Dr. Hidalgo per chart PCP FIELD UPDATES Reason for Outreach Care Gap/HCC or Scheduling Wellness Visits Care Gaps due: Establish Care Appointment Patient Contacted: Unable or unnecessary to reach patient: PCP field updated Navigation Signature: Minna Jackman MA November 29, 2023 10:29 AM documented in this encounterSum[facility]06-03-2024 NotePatient Outreach (NETNAV) OSMAN PADGETT ([id number]) 1950 M Date Time Provider Department 11/29/23 MINNA JACKMAN NETNAV During your visit today, we recorded the following information about you: Minna Jackman MA 11/29/2023 10:32 AM Signed POPULATION HEALTH NAVIGATION OUTREACH Action/FYI PCP is [...] Comments: Confusion PENICILLINS 11/18/2005 2 - Rash ETYOCER-JVZ-IVK REDUCTASE INHIBIT*05/18/2022 1 - Mental Status Change [...] chron*08/27/2022 Encounter Status:Closed by MINNA JACKMAN on 11/29/23[facility]05-13-2024 Discharge summary Author Lenin Koo [facility] November 08, 2023 7:02am Note Date/Time November 07, 2023 10:43 am [facility] Medical Records Department [address] [place] [id number] Emergency Department Summary 11/07/23 MR#: [id number] Acct: [id number] Name: OSMAN PADGETT Rep #:[id number] : 1950 73 From: Fredrick Singh PCP: Dr. Lenin Hidalgo MD Status:REG ER Location: ED ADDENDUM by Dr. Lenin Koo DO on 11/08/23 at 0702 Care of the patient was turned over to ak pending bed assignment at the geropsychiatric facility. Patient remained calm and cooperative here in the emergency department. Patient did not require any medications or interventions. Care of the patient was turned over to the oncoming physician pending bed assignment and transfer to geropsychiatric facility. 11/08/23 0702<Electronically signed by Lnein Koo DO> Cosigner Signature (if applicable): cc: Dr. Lenin Hidalgo MD ~* Signed HPI History of Present Illness Chief Complaint: Anxiety [facility] Medical History Abnormal stress test Acquired nasal deformity Allergic rhinitis due to other allergen Chronic kidney disease (CKD) Closed fracture nasal bone Erectile dysfunction Essential hypertension History of basal cell carcinoma Nasal congestion Nasal septal deviation Nasal turbinate hypertrophy Pure hypercholesterolemia Right bundle branch block Spondylolisthesis Type 2 diabetes mellitus Home Medications fluticasone propionate 50 mcg/actuation nasal spray,suspension 1 spray intranasal QHS 11/26/20 [History Last Taken Unknown] loratadine 10 mg tablet (Claritin) 10 mg PO DAILY 11/26/20 [History Last Taken Unknown] multivitamin 1 tab PO DAILY 02/08/21 [History Last Taken Unknown] magnesium 500 mg tablet 500 mg PO DAILY supplement 01/25/22 [History Last Taken Unknown] aspirin 81 mg capsule 81 mg PO DAILY 03/16/22 [History Last Taken 03/16/22] lisinopril 5 mg tablet 5 mg PO DAILY 07/08/23 [History Last Taken Unknown] metformin 500 mg tablet 500 mg PO QHS 07/08/23 [History Last Taken Unknown] cariprazine 1.5 mg capsule (Vraylar) 1.5 mg PO DAILY 11/05/23 [History Last Taken Unknown] cholecalciferol (vitamin D3) 50 mcg (2,000 unit) capsule 50 mcg PO DAILY 11/05/23 [History Last Taken Unknown] clonazepam 0.5 mg tablet (Klonopin) 0.5 mg PO DAILY 11/05/23 [History Last Taken Unknown] ropinirole 0.5 mg tablet 1.5 mg PO QHS 11/05/23 [History Last Taken Unknown] lorazepam 1 mg tablet (Ativan) 1 mg PO BID PRN anxiety #12 tabs 11/06/23 [Rx Last Taken Unknown] Allergy/AdvReac Type Severity Reaction Status Date / Time Thiazides Allergy Severe Other Verified 11/06/23 08:13 diphenhydramine Allergy Intermediate Other Verified 11/06/23 08:13 [From Benadryl] Penicillins Allergy Intermediate Rash Verified 11/06/23 08:13 Dptxwul-FVJ-NjM Reductase Allergy Intermediate Other Verified 11/06/23 08:13 Inhibitor trazodone Allergy Intermediate Other Verified 11/06/23 08:13 atorvastatin AdvReac Intermediate messed Verified 11/06/23 08:13 with my head simvastatin AdvReac Intermediate messed Verified 11/06/23 08:13 with my head Family History Mother Cancer breast Diabetes Thyroid disorder Father Cancer leukemia Hypertension Surgical History History of colonoscopy (01/19/14) History of esophagogastroduodenoscopy (EGD) (04/19/14) History of left heart catheterization (03/16/22) History of sinus surgery (1989) History of varicose veins Social History Smoking Status: Never smoker alcohol intake: never substance use type: does not use caffeine: Yes Type: coffee Number of servings: 3 EXAM Physical Exam Const Vital Signs: 11/07/23 09:51 11/07/23 13:30 11/07/23 14:15 Temperature 97.8 F Temperature Source Temporal Pulse Rate 86 99 101 H Respiratory Rate 18 25 H 21 H Blood Pressure 130/92 H 133/85 H 147/76 H Blood Pressure Mean 104 101 99 Pulse Ox 98 97 97 Oxygen Delivery Method Room Air Room Air Room Air 11/07/23 15:00 11/07/23 16:00 11/07/23 16:23 Temperature Temperature Source Pulse Rate 87 108 H 108 H Respiratory Rate 18 26 H 26 H Blood Pressure 133/71 H 141/86 H 141/86 H Blood Pressure Mean 91 104 104 Pulse Ox 99 99 99 Oxygen Delivery Method Room Air Room Air Room Air MDM MDM MDM Narrative Medical decision making narrative: HISTORY OF PRESENT ILLNESS: 73-year-old male presents with concern for abnormal behavior. Majority history provided by the patient's and daughter. They state recently he is had somemedication changes. He changed venlafaxine to Vraylar. He also had a thyroid biopsy all within the last week. They note he has been struggling with inability to sleep, been more confused intermittently and having frequency of urination. They state he fell yesterday. They are unsure if he struck his head. Patient has no complaints. Denies headache, chest pain, shortness of breath, abdominal pain, difficulty or painful urination REVIEW OF SYSTEMS: Pertinent positives: Confusion, gait instability, frequency Pertinent negatives: Headache, chest pain PHYSICAL EXAM: Nursing triage notes reviewed, Vital signs reviewed Constitutional: please see mdm HENT: MMM Eyes: Pupils equal round and reactive to light, Extraocular muscles intact Neck: No stridor, no JVD, full neck ROM Lungs: Clear to auscultation, No wheezing or rales. No increased work of breathing, no conversational dyspnea, no accessory muscle use, no nasal flaring. No respiratory distress noted Heart: Regular rate and rhythm, No murmurs, No rubs and No gallops, 2+ distal pulses (radial, femoral, posterior tibial) in all extremities Abdomen: Soft, there is no tenderness, rigidity, rebound or guarding, no obviousperitoneal signs, no palpable pulsatile abdominal masses, no auscultated abdominal bruit : No CVAT Extremities: No edema Neuro: No focal neurological deficits, patient was alert, oriented to person place and time, did appear confused at times, had psychomotor agitation but was redirectable. Cranial nerves II through XII intact, 5/5 strength in all extremities. Intact sensation to light touch in all extremities, 2+ reflexes bilateral patella tendons. Unsteady, ataxic gait noted. Skin: No rash or lesions noted psych: Normal affect, goal-directed thought process MEDICAL DECISION MAKING: Chief Complaint: Confusion External records reviewed: Prior ED records reviewed: Seen yesterday for insomnia and anxiety prescribed. Labs reviewed from yesterday shows no evidenceof leukocytosis, mild anemia, no thrombocytopenia. BMP with out electrolyte abnormality, mild renal insufficiency consistent with prior CKD. LFTs without significant hepatobiliary obstruction. Troponin negative. Lipase Factors affecting care: Anxiety, hypertension, hyperlipidemia, type 2 diabetes, CAD Social determinants of health: none History obtained from others: family Consults: Internal medicine (Dr. Hamilton), Behavioral health Crisis MDM Narrative: Patient was hemodynamically stable, afebrile and nontoxic-appearing. No lateralizing findings on initial neurologic exam of the patient is alert and oriented x 3 still had some nonquantifiable confusion. I suspect based on his history and physical exam that his symptoms are related to polypharmacy including recent psychiatric med changes and addition to above benzodiazepine and advanced age was caused more agitation and then added to his gait imbalance however I did obtain a broad lab and imaging workup to further elucidate the etiology patient complaints. I treat the patient with 500 cc bolus and gave 2 mg of IV haloperidol for agitation management. I considered the following differential diagnosis: ICH, metabolic infectious cephalopathy, endocrine abnormality (thyroid dysfunction), polypharmacy ALL IMAGES (IF OBTAINED) HAVE BEEN PERSONALLY REVIEWED AND INTERPRETED BY MYSELF. EKG with AV block, normal axis, right bundle branch block no STEMI CT head negative I have personally reviewed the patient's chest x-ray. Chest x-ray is unremarkable for pulmonary edema, pneumothorax, pneumonia or focal cardiopulmonary abnormality. CBC with no leukocytosis, noted mild anemia, no thrombocytopenia BMP with hyponatremia, no TRUPTI, no evidence of metabolic acidosis or endorgan hypoperfusion LFTs show no evidence of hepatobiliary pathology. High-sensitivity troponin is negative, no evidence of myocardial ischemia TSH low however T3 and T4 within normal limits suggestive of no thyroid dysfunction causing the patient's presentation Serum alcohol level The patient was medically cleared. He continued to have agitation. This required another dose of 2 mg of IV haloperidol. He continued to be agitated. He was placed in soft restraints temporarily and given 20 g IV Geodon with resolution of agitation. He was evaluated by behavioral health and they agreed the patient should be transferred to geriatric psychiatric facility. This was arranged and patient is awaiting transfer at time of signout. The patient and/or family, caregivers express understanding. The patient and/orfamily, caregivers agrees with the plan. Shared decision making: I will have a discussion with the patient and or visitors regarding risk/benefits of further testing or admission. They will be made aware of of the risk/benefits inherent in this decision they will be given the opportunity to voice understanding. Total critical care time today provided was at least 0 minutes. This excludes separately billable procedures. Critical care time (if documented) is secondary to the patient having high probability of clinically significant/life threatening deterioration in the patient's condition which required my urgent intervention. Impression: 1. Altered mental status 2. Ataxia 3. Psychomotor Agitation Dispo: Transfer to Psychiatric Facility This note was generated with [employer] dictation software. It may contain incorrectwords, spelling, and punctuation that were not noted in review of the chart prior to signing. Lab Data Labs: Laboratory Results - last 24 hr 11/07/23 11/07/23 11:30 12:40 WBC 11.0 RBC 3.39 L Hgb 10.7 L Hct 30.9 L MCV 91.2 MCH 31.6 MCHC 34.6 RDW Std Deviation 38.9 RDW Coeff of Laya 11.6 Plt Count 289 MPV 8.3 Immature Gran % (Auto) 0.500 Neut % (Auto) 78.8 H Lymph % (Auto) 11.4 L Dougherty % (Auto) 7.5 Eos % (Auto) 1.2 Baso % (Auto) 0.6 Absolute Neuts (auto) 8.7 H Absolute Lymphs (auto) 1.25 Nucleated RBC % 0 Sodium 126 L Potassium 4.8 Chloride 94 L Carbon Dioxide 23.0 Anion Gap 9 BUN 23 H Creatinine 1.05 Estim Creat Clear Calc 80.51 Est GFR (MDRD) Af Amer 89 Est GFR (MDRD) Non-Af 74 BUN/Creatinine Ratio 21.9 H Glucose 142 H Calcium 8.9 Total Bilirubin 0.50 AST 16 ALT 20 Alkaline Phosphatase 45 Troponin I High Sens 13 Total Protein 7.0 Albumin 3.8 Globulin 3.2 Albumin/Globulin Ratio 1.2 Lipase 30 TSH 0.26 L Free T4 1.01 Free T3 pg/dL 3.4 Urine Color Straw Urine Clarity Clear Urine pH 7.0 Ur Specific Torrey 1.020 Urine Protein Negative Urine Glucose (UA) Normal Urine Ketones Negative Urine Occult Blood Negative Urine Nitrite Negative Urine Bilirubin Negative Urine Urobilinogen Normal Ur Leukocyte Esterase Negative Urine RBC 0 SEEN Urine WBC 0 SEEN Ur Squamous Epith Cells 0 SEEN Urine Bacteria 0 SEEN Urine Mucus 0 SEEN Urine Opiates Screen NEGATIVE Urine Methadone Screen NEGATIVE Ur Barbiturates Screen NEGATIVE Ur Phencyclidine Scrn NEGATIVE Ur Amphetamines Screen NEGATIVE MDMA (Ecstasy) Screen NEGATIVE U Benzodiazepines Scrn NEGATIVE Urine Cocaine Screen NEGATIVE U Cannabinoids Screen POSITIVE H Ur Drug Screen Comment Ethyl Alcohol < 3.0 Radiography Diagnostic Testing: Clinical Impression(s) from Imaging Studies Brain CT 11/07/23 11:23 IMPRESSION: Age consistent changes, no acute findings Electronically Signed: Abisai Jennings MD at 13:03 EDT Reading Location ID and State: [facility] / [place] , Service support , Chest X-Ray 11/07/23 11:23 IMPRESSION: No acute pulmonary process Electronically Signed: Abisai Jennings MD at 12:22 EDT , Discharge Plan Triage Chief Complaint: Anxiety ED Provider: Fredrick Dorsey Dx/Rx/DC Orders Prescriptions: No Action loratadine [Claritin] 10 mg tablet 10 mg PO DAILY fluticasone propionate 50 mcg/actuation spray,suspension 1 spray intranasal QHS clonazepam [Klonopin] 0.5 mg tablet 0.5 mg PO DAILY Rx Instructions: x 4 days then 1mg cholecalciferol (vitamin D3) 50 mcg (2,000 unit) capsule 50 mcg PO DAILY ropinirole 0.5 mg tablet 1.5 mg PO QHS Rx Instructions: administer 1-3 hours before bedtime Vraylar 1.5 mg capsule 1.5 mg PO DAILY metformin 500 mg tablet 500 mg PO QHS multivitamin Tablet 1 tab PO DAILY magnesium 500 mg Tablet 500 mg PO DAILY aspirin 81 mg Capsule 81 mg PO DAILY lorazepam [Ativan] 1 mg tablet 1 mg PO BID PRN (Reason: anxiety) Qty: 12 0RF lisinopril 5 mg tablet 5 mg PO DAILY Primary Care Provider: Lenin Hidalgo Referrals: Lenin Hidalgo MD [Primary Care Provider] - What to do if you have Problems For any increased pain, shortness of breath, bleeding, nausea or vomiting, chestpain, or any unexpected problems, contact your Primary Care Provider. Call [facility] ([phone]) or report to the closest Emergency Room. Call 911 if necessary. 11/07/232126 <Electronically signed by Fredrick Dorsey DO> Cosigner Signature (if applicable): CC: Dr. Lenin Hidalgo MD ~ Signed [facility] Work Phone: 1(791) 838-624301-18-2024 NoteHNO ID: [id number] Author: PETTY JOE RN Service: ? Author [...] he is changing to a non [facility] PCP.[facility] 07-15-2023 NotePatient Outreach (AMBCMG) OSMAN PADGETT ([id number]) 1950 M Date Time Provider Department 07/15/23 PETTY JOE [facility] During your visit today, we recorded the following information about you: Petty Joe, RN 07/15/2023 10:58 AM Signed [facility] Telephonic Outreach Provider Ryder/KATIE [...] Comments: Confusion PENICILLINS 11/18/2005 2 - Rash [id number] REDUCTASE INHIBIT*05/18/2022 1 - Mental Status Change [...] chron*08/27/2022 Encounter Status:Closed by PETTY JOE on 07/15/23[facility] 05-17-2023 NoteHNO ID: [id number] Author: Petty Joe RN Service: ? Author Type: Registered Nurse Type: Progress Notes Filed: 05/17/2023 8:36 AM Note Text: [facility] Telephonic Outreach Provider Action/FYI Contacted for: Routine Telephonic Outreach Contact made with patient: Yes Patient identified by name and date of . Discussed care with patient Are you experiencing any new or worsening symptoms you need to talk about today? Patient reports he no longer has a [facility] provider.[facility]11-20-2023 NotePatient Outreach (AMBCMG) OSMAN PADGETT ([id number]) 1950 M Date Time Provider Department 05/17/23 PETTY JOE [facility] During your visit today, we recorded the following information about you: Petty Joe RN 05/17/2023 8:36 AM Signed [facility] Telephonic Outreach Provider Action/FYI Contacted for: Routine [...] Comments: Confusion PENICILLINS 11/18/2005 2 - Rash EHIEKGT-EOG-FIG REDUCTASE INHIBIT*05/18/2022 1 - Mental Status Change [...] chron*08/27/2022 Encounter Status:Closed by PETTY JOE on 05/17/23[facility] 05-03-2023 NoteHNO ID: [id number] Author: Petty Joe RN Service: ? Author Type: Registered Nurse Type: Progress Notes Filed: 05/03/2023 3:32 PM Note Text: [facility] Telephonic Outreach Provider Action/FYI Converted to telephonic Contacted for: Routine Telephonic Outreach Contact made with patient: No, left message. Petty Joe RN May 03, 2023 3:30 [facility] History of Present illness Narrative* Petty Joe RN - 05/03/2023 3:30 PM EST CD[facility] Telephonic Outreach Provider Action/FYI Converted to telephonic Contacted for: Routine Telephonic Outreach Contact made with patient: No, left message. Petty Joe RN May 03, 2023 3:30 PM documented in this encounterSum[facility]11-06-2023 NotePatient Outreach (AMBCMG) OSMAN PADGETT ([id number]) 1950 M Date Time Provider Department 05/03/23 PETTY JOE During your visit today, we [...] Comments: Confusion PENICILLINS 11/18/2005 2 - Rash ZRWCHEQ-[id number] REDUCTASE INHIBIT*05/18/2022 1 - Mental Status Change [...] chron*08/27/2022 Encounter Status:Closed by PETTY JOE on 05/03/23[facility] 01-06-2023 Miscellaneous Notes* Addendum Note - Michael Segal MD - 01/06/2023 2:29 PM EDTAddended by: MICHAEL SEGAL on: 01/06/2023 02:29 PM Modules accepted: Orders documented in this encounterSumma Health [facility]03-17-2023 Miscellaneous Notes* Telephone Encounter - Rosetta Rahman LPN - 09/11/2022 12:56 PM EDT Patient notified of providers message below. Voices understanding. Rosetta Rahman LPN * Telephone Encounter - Evelina Shafer MD - 09/11/2022 11:50 AM EDT Diabetes well controlled. Magnesium level normal. Sodium level low which is similar to his previous labs. Potassium level elevated. Patient needs to follow up with his ear machine operator regarding low sodium levels. Will recheck potassium level early next week to rule out lab error. No change to regimen. documented in this encounterSumma Health [facility]03-16-2023 History of Present illness Narrative* Evelina Shafer MD - 09/10/2022 9:48 AM EDT Chief Complaint Patient presents with: [...] his sodium level was low 129 at [facility] on 03/[address] Gerard's office [...] athome, but has not felt unsteady walking. Interim: Patient notes that he was positive for influenza A on 09/03 and is feeling better aside from dry cough and fatigue. Was not treated with tamiflu. Just taking tylenol OTC right now. Denies fever/chills,SOB, wheezing, chest congestion, sore throat, ear pain/fullness, [...] with sugars in the fasting <130 range. Patient'slast HgA1C was Hemoglobin A1C (%) Date Value 05/25/2022 6.1 01/05/2022 6.2 07/08/2021 6.5 12/31/2020 6.2 ) Last Ophthalmology exam was within the past 3 months-[facility] about 1 month ago. No reported retinopathy Last Podiatry exam was more than 12 months ago [facility] Cardiology started him on zetia at last [...] [Atorvastat* Mental Status Change Confusion Penicillins Rash Forgqtc-Twc-Uuh Red* Mental Status Change Thiazides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 Resolved Date Acute pain of both knees 10/01/2020 021 documented as of this encounter (statuses as of 04/17/2022) [address]-2021 History of Past illness Narrative* Problem Noted Date Resolved Date Acute pain of both knees 10/01/2020 021 documented as of this encounter (statuses as of 04/17/2022) [address]06-2021 History of Past illness Narrative* Problem Noted Date Resolved Date Acute pain of both knees 10/01/2020 021 documented as of this encounter (statuses as of 04/20/2022) [address]-2021 History of Past illness Narrative* Problem Noted Date Resolved Date Acute pain of both knees 10/01/2020 021 documented as of this encounter (statuses as of 04/20/2022) [address]06-2021 History of Past illness Narrative* Problem Noted Date Resolved Date Acute pain of both knees 10/01/2020 021 documented as of this encounter (statuses as of 05/01/2022) [address]-2021 History of Past illness Narrative* Problem Noted Date Resolved Date Acute pain of both knees 10/01/2020 021 documented as of this encounter (statuses as of 05/04/2022) [address]06-2021 History of Past illness Narrative* Problem Noted Date Resolved Date Acute pain of both knees 10/01/2020 021 documented as of this encounter (statuses as of 05/18/2022) [address]06-2021 History of Past illness Narrative* Problem Noted Date Resolved Date Acute pain of both knees 10/01/2020 021 documented as of this encounter (statuses as of 05/18/2022) [address]06-[address]21 History of Past illness Narrative* Problem Noted Date Resolved Date Acute pain of both knees 10/01/2020 021 documented as of this encounter (statuses as of 05/19/2022) [address]06-[address]21 History of Past illness Narrative* Problem Noted Date Resolved Date Acute pain of both knees 10/01/2020 021 documented as of this encounter (statuses as of 06/01/2022) [address]21 History of Past illness Narrative* Problem Noted Date Resolved Date Acute pain of both knees 10/01/2020 021 documented as of this encounter (statuses as of 06/05/2022) [address]06-2021 History of Past illness Narrative* Problem Noted Date Resolved Date Acute pain of both knees 10/01/2020 021 documented as of this encounter (statuses as of 06/28/2022) [address]21 History of Past illness Narrative* Problem Noted Date Resolved Date Acute pain of both knees 10/01/2020 021 documented as of this encounter (statuses as of 07/16/2022) [address]06-2021 History of Past illness Narrative* Problem Noted Date Resolved Date Acute pain of both knees 10/01/2020 021 documented as of this encounter (statuses as of 07/21/2022) [address]06-[address]21 History of Past illness Narrative* Problem Noted Date Resolved Date Acute pain of both knees 10/01/2020 021 documented as of this encounter (statuses as of 07/22/2022) [facility]-06-2021 History of Past illness Narrative* Problem Noted Date Resolved Date Acute pain of both knees 10/01/2020 021 documented as of this encounter (statuses as of 08/13/2022) [facility]06[facility]2021 History of Past illness Narrative* Problem Noted Date Resolved Date Acute pain of both knees 10/01/2020 021 documented as of this encounter (statuses as of 08/19/2022) [facility]2021 History of Past illness Narrative* Problem Noted Date Resolved Date Acute pain of both knees 10/01/2020 021 documented as of this encounter (statuses as of 08/21/2022) [facility]30[facility]21 History of Present illness Narrative* Catrina Del Real Tech (Tech) - 09/24/2020 3:40 PM EDT Radiology Service [...] 24, 2020 3:38 PM documented in [facility] summary Author Noble Figueroa [facility] November 06, 2023 10:08am Note Date/Time November 06, 2023 8:32a m [facility] Medical Records Department [address] [place] [address] Emergency Department Summary 11/06/23 MR#: [id number] Acct: [id number] Name: OSMAN PADGETT Rep #:[id number] 73 From: Noble Figueroa MD PCP: Dr. Lenin Hidalgo MD Status:REG ER Location: ED ADDENDUM by Dr. Noble Figueroa MD on 11/06/23 at 1008 As the patient had complained of shortness of breath, chest x-ray in 1 view was interpreted by myself independently and showed no evidence of pneumothorax or pneumonia. I do not feel antibiotics are indicated. I reviewed the radiology report which confirms my independent interpretation. 11/06/23 1008<Electronically signed by Noble Figueroa MD> Cosigner Signature (if applicable): cc: Dr. Lenin Hidalgo MD ~* Signed HPI History of Present Illness Chief Complaint: Anxiety Narrative Narrative: 73-year-old male presents with his because of anxiety and insomnia. They relate history that they are trying to adjust his medications and he recently came off [employer]. Over the last few days, he has been unable to sleep and only gotten 2 to 3 hours of sleep. He was put on Klonopin 0.5 mg twice a day for 4 days and then once a day for another 4 days. This does not seem to be helping with his anxiety. He states he cannot sleep because he has racing thoughts. This is associated with palpitations and nausea and shortness of breath. He was nauseated yesterday, and today he vomited once without any blood in his emesis. He and his states that they were told to have him come to the emergency department and be checked out regarding his anxiety. also notes that hisblood sugars were elevated at [address] [facility] Medical History Abnormal stress test Acquired nasal deformity Allergic rhinitis due to other allergen Chronic kidney disease (CKD) Closed fracture nasal bone Erectile dysfunction Essential hypertension History of basal cell carcinoma Nasal congestion Nasal septal deviation Nasal turbinate hypertrophy Pure hypercholesterolemia Right bundle branch block Spondylolisthesis Type 2 diabetes mellitus Home Medications fluticasone propionate 50 mcg/actuation nasal spray,suspension 1 spray intranasal QHS 11/26/20 [History Last Taken Unknown] loratadine 10 mg tablet (Claritin) 10 mg PO DAILY 11/26/20 [History Last Taken Unknown] multivitamin 1 tab PO DAILY 02/08/21 [History Last Taken Unknown] magnesium 500 mg tablet 500 mg PO DAILY supplement 01/25/22 [History Last Taken Unknown] aspirin 81 mg capsule 81 mg PO DAILY 03/16/22 [History Last Taken 03/16/22] lisinopril 5 mg tablet 5 mg PO DAILY 07/08/23 [History Last Taken Unknown] metformin 500 mg tablet 500 mg PO QHS 07/08/23 [History Last Taken Unknown] cariprazine 1.5 mg capsule (Vraylar) 1.5 mg PO DAILY 11/05/23 [History Last Taken Unknown] cholecalciferol (vitamin D3) 50 mcg (2,000 unit) capsule 50 mcg PO DAILY 11/05/23 [History Last Taken Unknown] clonazepam 0.5 mg tablet (Klonopin) 0.5 mg PO DAILY 11/05/23 [History Last Taken Unknown] ropinirole 0.5 mg tablet 1.5 mg PO QHS 11/05/23 [History Last Taken Unknown] lorazepam 1 mg tablet (Ativan) 1 mg PO BID PRN anxiety #12 tabs 11/06/23 [Rx Last Taken Unknown] Allergy/AdvReac Type Severity Reaction Status Date / Time Thiazides Allergy Severe Other Verified 11/06/23 08:13 diphenhydramine Allergy Intermediate Other Verified 11/06/23 08:13 [From Benadryl] Penicillins Allergy Intermediate Rash Verified 11/06/23 08:13 Fyjnirg-QWD-YgD Reductase Allergy Intermediate Other Verified 11/06/23 08:13 Inhibitor trazodone Allergy Intermediate Other Verified 11/06/23 08:13 atorvastatin AdvReac Intermediate messed Verified 11/06/23 08:13 with my head simvastatin AdvReac Intermediate messed Verified 11/06/23 08:13 with my head Family History Mother Cancer breast Diabetes Thyroid disorder Father Cancer leukemia Hypertension Surgical History History of colonoscopy (01/19/14) History of esophagogastroduodenoscopy (EGD) (04/19/14) History of left heart catheterization (03/16/22) History of sinus surgery (1989) History of varicose veins Social History Smoking Status: Never smoker alcohol intake: never substance use type: does not use caffeine: Yes Type: coffee Number of servings: 3 ROS ROS ED ROS Narrative Constitutional: No fever, no chills. HEENT: No sore throat. No neck pain. No loss of vision. No rhinorrhea. Cardiovascular: Intermittent chest pain. Occasional palpitations. No pedal edema. Respiratory: No cough, no shortness of breath. Abdominal: Pressure in epigastrium/abdominal pain. Positive nausea with 1 episode of vomiting today. Genitourinary: No dysuria. No hematuria. Musculoskeletal: No myalgias. No arthralgias. Neurologic: No headaches. No dizziness. No lightheadedness. Skin: No rash. No change in color. Psychiatric: No depression. Positive anxiety. Positive insomnia. EXAM Physical Exam Narrative Exam Narrative: Afebrile. Vital signs noted. HEENT: Normocephalic. Atraumatic. PERRL, EOMI. Neck soft and supple. No pointtenderness or step off. Cardiovascular: Regular rate and rhythm. No murmurs, rubs, or gallops appreciated. Respiratory: No tachypnea. Lungs clear to auscultation bilaterally. Gastrointestinal: Abdomen soft, nontender, with normoactive bowel sounds. No rebound or guarding. Neurological: Awake. Alert. Nonfocal, nonlateralizing. Skin: No rash. Normal color. No pallor. Musculoskeletal: No pedal edema. Full range of motion extremities. Psychiatric: Mild anxiety. No hallucinations. No internal stimulation. Const Vital Signs: 11/06/23 08:14 Temperature 97.8 F Temperature Source Temporal Pulse Rate 93 Respiratory Rate 18 Blood Pressure 135/76 H Blood Pressure Mean 95 Pulse Ox 99 Oxygen Delivery Method Room Air MDM MDM MDM Narrative Medical decision making narrative: Medical screening labs were obtained. He is only taking 0.5 mg daily of benzodiazepine. He was given Ativan 1 mg here in basic laboratory work will be obtained. Given his reported elevated blood sugar, I will obtain an electrolytepanel to make sure that he is not hyperglycemic or in HON K. He does take metformin for type 2 diabetes. EKG and single troponin will also be obtained along with CBC. As he states he was short of breath, although his pulse ox is 99% on room air, chest x-ray will be obtained to help rule out a pneumothorax orpneumonia. EKG was obtained and interpreted by myself independently as normal sinus rhythm at 91 bpm with right bundle branch block, no significant change from previous in his electronic medical record. I reviewed his laboratory work and he has a normal white count of 9.8, hemoglobin stable at 11.1, hematocrit 32.3, platelet count normal at 297. Glucose is elevated at 248, his sodium is slightly low at 128 but corrected to 130. He will be bolused normal saline. His anion gap is normal at 7. Chlorideslightly low at 97 as well so you may be mildly dehydrated. His BUN is 31 and creatinine 1.42, but this appears around his baseline as it has fluctuated in the past. High-sensitivity troponin is 9. As he has been having anxiety for few days, I do not think that he has acute coronary syndrome and that he needs serial troponins. Lipase is normal at 39, helping to rule out pancreatitis. I do feel that a lot of his symptoms are related to anxiety. Regarding his elevated blood sugars, he takes 1000 mg of metformin in the morning and 500 at night. He may need to increase this to 1000 mg twice a day but I do feel that is best left to his primary care provider. After Ativan 1 mg intravenously, family states that he was starting to feel anxious again, but on my repeat examination at around 920 in the morning, he states that he is chill. In discussion with his , he has had Ativan before for MRI which may be more effective for him. I will discuss the patient with Dr. Garcia on for Dr. Lenin Hidalgo to see if I should write for Ativan 1 mg twice a day for few days and have him follow-up for further prescription and titration. I do not feel that patient meets any criteria for psychiatric hold. Dr. Garcia is okay with me writing the patient a prescription for Ativan 1 mg twice a day as needed for anxiety. I wrote him a prescription for 12 tablets toget him through until Wednesday. I feel he can be discharged to follow-up. Patient currently is less anxious, sitting on the cot with his legs crossed and feels well. Disposition is discharged home in stable condition. History & Record Review Discussion w/independent historian: Patient and Family Additional record(s) reviewed:: Prior outpatient record (EKG with right bundle branch block, unchanged) Lab Data Attestation: I reviewed the patient's lab results. Labs: Laboratory Results - last 24 hr 11/06/23 08:35 WBC 9.8 RBC 3.48 L Hgb 11.1 L Hct 32.3 L MCV 92.8 MCH 31.9 MCHC 34.4 RDW Std Deviation 40.7 RDW Coeff of Laya 11.9 Plt Count 297 MPV 8.4 Sodium 128 L Potassium 5.1 Chloride 97 L Carbon Dioxide 24.0 Anion Gap 7 BUN 31 H Creatinine 1.42 H Estim Creat Clear Calc 51.61 Est GFR (MDRD) Af Amer 63 Est GFR (MDRD) Non-Af 52 L BUN/Creatinine Ratio 21.8 H Glucose 248 H Calcium 8.9 Total Bilirubin 0.30 AST 11 L ALT 18 Alkaline Phosphatase 46 Troponin I High Sens 9 Total Protein 7.2 Albumin 3.7 Globulin 3.5 Albumin/Globulin Ratio 1.1 Lipase 39 Radiography Diagnostic Testing: Clinical Impression(s) from Imaging Studies Chest X-Ray 11/06/23 08:25 IMPRESSION: No acute pulmonary process Electronically Signed: Abisai Jennings MD at 9:26 EDT , Discharge Plan Triage Chief Complaint: Anxiety ED Provider: Noble Figueroa Dx/Rx/DC Orders Clinical Impression: Insomnia, Anxiety Instructions: ED Anxiety Reaction, ED Insomnia Prescriptions: New lorazepam [Ativan] 1 mg tablet 1 mg PO BID PRN (Reason: anxiety) Qty: 12 0RF No Action loratadine [Claritin] 10 mg tablet 10 mg PO DAILY fluticasone propionate 50 mcg/actuation spray,suspension 1 spray intranasal QHS clonazepam [Klonopin] 0.5 mg tablet 0.5 mg PO DAILY Rx Instructions: x 4 days then 1mg cholecalciferol (vitamin D3) 50 mcg (2,000 unit) capsule 50 mcg PO DAILY ropinirole 0.5 mg tablet 1.5 mg PO QHS Rx Instructions: administer 1-3 hours before bedtime Vraylar 1.5 mg capsule 1.5 mg PO DAILY metformin 500 mg tablet 500 mg PO QHS multivitamin Tablet 1 tab PO DAILY magnesium 500 mg Tablet 500 mg PO DAILY aspirin 81 mg Capsule 81 mg PO DAILY lisinopril 5 mg tablet 5 mg PO DAILY Primary Care Provider: Lenin Hidalgo Referrals: Lenin Hidalgo MD [Primary Care Provider] - 2 Days Activity Restrictions/Additional Instructions: Stop taking the clonazepam and replace with the Ativan 1 mg by mouth twice a dayas needed for anxiety. You may need to have your metformin increased to 1000 mgby mouth twice a day, but ask your primary care physician about this when you follow-up with him on Wednesday. Disposition Disposition: Home, Self Care What to do if you have Problems For any increased pain, shortness of breath, bleeding, nausea or vomiting, chestpain, or any unexpected problems, contact your Primary Care Provider. Call [facility] ([phone]) or report to the closest Emergency Room. Call 911 if necessary. 11/06/23 0936 <Electronically signed by Noble Figueroa MD> Cosigner Signature (if applicable): CC: Dr. Lenin Hidalgo MD ~ Signed [facility] Work Phone: Evaluation note* Diagnosis Anxiety with depression [facility] Diagnosis BPH with obstruction/lower urinary tract symptoms- Primary Hypertrophy of prostate with urinary obstruction and other lower urinary tract symptoms (LUTS) Erectile dysfunction, unspecified erectile dysfunction type [facility]* Diagnosis CKD (chronic kidney disease) stage 2, GFR 60-89 ml/min- Primary Chronic kidney disease, Stage II (mild) Hyponatremia Hyposmolality and/or hyponatremia [facility]* Diagnosis Type 2 diabetes mellitus without complication, with long-term current use of insulin (HCC)- Primary Plantar fasciitis Plantar fascial fibromatosis Hallux limitus, acquired, unspecified laterality [facility]* Diagnosis Pain Generalized pain [facility]* Diagnosis Pure hypercholesterolemia- Primary Screening for hyperlipidemia Screening for lipoid disorders [facility]No assessment information [facility]WCh[facility] Work Phone: Evaluation note* Diagnosis Dehydration- Primary TRUPTI (acute kidney injury) (HCC) Acute kidney failure, unspecified Moderate episode of recurrent major depressive disorder (HCC) [facility]* Diagnosis Anxiety with depression- Primary [facility]* Diagnosis Onset Date Resolution Status Abnormal electrocardiogram a cute MCCONNELL (dyspnea on exertion) ac [place] Fatigue acute Essential hypertension chron ic Pure hypercholesterolemia ch ronic Right bundle branch block [facility] Work Phone: Evaluation note* Diagnosis Onset Date Resolution Status MCCONNELL (dyspnea on exertion) ac [place] Fatigue acute Essential hypertension chron ic Pure hypercholesterolemia ch ronic Right bundle branch block [facility] Work Phone: Evaluation note* Diagnosis Suspected COVID-19 virus infection- Primary Exposure to confirmed case of COVID-19 [facility]* Diagnosis Primary hypertension- Primary Unspecified essential hypertension Brain fog History of COVID-19 [facility]* Diagnosis Anxiety with depression [facility]* Diagnosis Type 2 diabetes mellitus without complication, without long-term current use of insulin (HCC)- Primary CKD stage 2 due to type 2 diabetes mellitus (HCC) Hyponatremia Hyposmolality and/or hyponatremia Hyperlipidemia, unspecified hyperlipidemia type Statin intolerance Other drug allergy Primary hypertension Unspecified essential hypertension At high risk for falls Personal history of fall Need for COVID-19 vaccine [facility]* Diagnosis BPH with obstruction/lower urinary tract symptoms- Primary Hypertrophy of prostate with urinary obstruction and other lower urinary tract symptoms (LUTS) [facility]* Diagnosis Non-seasonal allergic rhinitis, unspecified trigger- Primary [facility]* Diagnosis BPH with obstruction/lower urinary tract symptoms- Primary Hypertrophy of prostate with urinary obstruction and other lower urinary tract symptoms (LUTS) Gross hematuria Erectile dysfunction, unspecified erectile dysfunction type documented [facility] this encounter [facility]* Diagnosis Anxiety with depression- Primary Nausea Nausea alone [facility]* Diagnosis RLS (restless legs syndrome)- Primary Restless legs syndrome (RLS) [facility] Diagnosis Hyperkalemia- Primary Hyperpotassemia documented in this encounter [facility]* Diagnosis RLS (restless legs syndrome)- Primary Restless legs syndrome (RLS) documented in this encounter [facility]* Diagnosis Hyperkalemia- Primary Hyperpotassemia documented in this encounter [facility]* Diagnosis 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 classified elsewhere RLS (restless legs syndrome) Restless legs syndrome (RLS) documented in this encounter [facility]* Diagnosis Gross hematuria [facility]* Diagnosis Onset Date Resolution Status 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 Hyponatremia acute Essential hypertension chron ic Pure hypercholesterolemia ch ronic Right bundle branch block [facility] Work Phone: Evaluation note* Diagnosis Onset Date Resolution Status 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 Hyponatremia acute Essential hypertension chron ic Pure hypercholesterolemia ch ronic Right bundle branch block ch ronic Thyroid nodule acute [facility] Work Phone: Evaluation note* Diagnosis Onset Date Resolution Status Thyroid nodule acute [facility] Work Phone: Evaluation note* Diagnosis Pre-operative examination- Primary Preoperative examination, unspecified BPH with obstruction/lower urinary tract symptoms Hypertrophy of prostate with urinary obstruction and other lower urinary tract symptoms (LUTS) Stage 3a chronic kidney disease (HCC) Claustrophobia Other isolated or specific phobias Controlled type 2 diabetes mellitus without complication, without long-term current use of insulin ([facility]) Essential hypertension Unspecified essential hypertension Pure hypercholesterolemia Other right bundle-branch block Hyperreflexia Abnormal reflex Ataxia Lack of coordination Dizziness and giddiness Myalgias Muscle tightness Unspecified disorder of muscle, ligament, and fascia Lumbar spondylosis Lumbosacral spondylosis without myelopathy documented in this encounter [facility]* Diagnosis Acute pain of both knees Pre-operative examination- Primary Preoperative examination, unspecified BPH with obstruction/lower urinary tract symptoms Hypertrophy of prostate with urinary obstruction and other lower urinary tract symptoms (LUTS) Stage 3a chronic kidney disease (HCC) Claustrophobia Other isolated or specific phobias Controlled type 2 diabetes mellitus without complication, without long-term current use of insulin ([facility]) Essential hypertension Unspecified essential hypertension Pure hypercholesterolemia Other right bundle-branch block documented in this encounter [facility] Discharge instructions Additional Instructions Stop taking the clonazepam and replace with the Ativan 1 mg by mouth twice a day as needed for anxiety. You may need to have your metformin increased to 1000 mg by mouth twice a day, but ask your primary care physician about this when you follow-up with him on Wednesday. [facility] Work Phone: [facility] for referral (narrative)* Diagnostic Procedure Only (Routine) - Closed Specialty Diagnoses / Procedures Referred By Contac t Referred To Contact XR IMAGING Diagnoses Pain Procedures XR FOOT GENERAL 3V AP/LAT/OBL BILATERAL RADEX FOOT COMPLETE MINIMUM 3 VIEWS Daniel Alexandre [address] [place] [address] Xr Imaging Referral ID Status Reason Start Date Expiration Date V isits Requested Visits Authorized [id number] Closed Auto-Generate d Referral 12/26/2021 01/25/2023 1 1 [facility] for referral (narrative)* Diagnostic Procedure Only (Routine) - Closed Specialty Diagnoses / Procedures Referred By Contac t Referred To Contact XR IMAGING Diagnoses Hyperreflexia Ataxia Dizziness and giddiness Myalgias Muscle tightness Lumbar spondylosis Procedures XR LUMBAR GENERAL 3V AP/LAT/L5-S1 X-RAY L-S SPINE AP/LATERAL Osman Allison Jr., MD [address] [place] [id number] [place] [address] Referral ID Status Reason Start Date Expiration Date V isits Requested Visits Authorized [id number] Closed Auto-Generate d Referral 06/30/2021 07/30/2022 1 1 * Diagnostic Procedure Only (Routine) - Closed Specialty Diagnoses / Procedures Referred By Contac t Referred To Contact XR IMAGING Diagnoses Hyperreflexia Ataxia Dizziness and giddiness Myalgias Muscle tightness Procedures XR CERV GENERAL 2V AP/LAT CERVICAL AP/LAT + ODONTOID/A21 Osman Allison Jr., MD [address] [facility] [address] [place] [address] [place] [address] Referral ID Status Reason Start Date Expiration Date V isits Requested Visits Authorized [id number] Closed Auto-Generate d Referral 06/30/2021 07/30/2022 1 1 [facility] for referral (narrative)No reason for referral information [facility] Narrative* Diagnostic Procedure Only (Routine) - Closed Specialty Diagnoses / Procedures Referred By Contac t Referred To Contact XR IMAGING Diagnoses Pain Procedures XR FOOT GENERAL 3V AP/LAT/OBL BILATERAL RADEX FOOT COMPLETE MINIMUM 3 VIEWS Daniel [address] [place] [address] Xr Imaging Referral ID Status Reason Start Date Expiration Date V isits Requested Visits Authorized [id number] Closed Auto-Generate d Referral 12/26/2021 01/25/2023 1 1 [facility] for visit Narrative* Diagnostic Procedure Only (Routine) - Closed Specialty Diagnoses / Procedures Referred By Contac t Referred To Contact XR IMAGING Diagnoses Hyperreflexia Ataxia Dizziness and giddiness Myalgias Muscle tightness Lumbar spondylosis Procedures XR LUMBAR GENERAL 3V AP/LAT/L5-S1 X-RAY L-S SPINE AP/LATERAL Osman Allison Jr., MD [address] [facility] [address] [place] [address] [place] [address] Referral ID Status Reason Start Date Expiration Date V isits Requested Visits Authorized [id number] Closed Auto-Generate d Referral 06/30/2021 07/30/2022 1 1 [facility] Summary Purpose Family History No Family History Records Found Relationship Condition Age at Onset Recorded Date/T beatrice mother Malignant neoplasm Unknown father Malignant neoplasm Unknown Relationship Condition Age at Onset Recorded Date/T beatrice mother Malignant neoplasm Unknown Diabetes mellitus Unknown Disorder of thyroid Unknown father Malignant neoplasm Unknown Hypertension Unknown Advance Directives No Advanced Directives Records FoundDocuments on File Type Date Recorded Patient Ensemble Member Expl anation Advance Directive(s) 12/02/2020 9:50 AM Documents on File Type Date Recorded Patient Ensemble Member Expl anation Advance Directive(s) 12/02/2020 9:50 AM Advance Directive Response Recorded Date/ Time Living Will No January 25, 2022 4:24pm Power of Horticulture Teacher No January 25 4:24pm Advance Directive Response Recorded Date/ Time Advance Directives on File No [facility] 2021 10:25am Advance Directives Yes February 10:25am Living Will Yes March 16, 2022 10:25am Power of Horticulture Teacher Yes February 10:25am Advance Directive Response Recorded Date/ Time Advance Directives on File No [facility] 2021 10:25am Name of Medical Power of Horticulture Teacher alexis herring March 31, 2022 10:28am Advance Directives Yes February 10:25am Living Will Yes March 31 10:28am Power of Horticulture Teacher Yes March 31 10:28am Advance Directive Response Recorded Date/ Time Advance Directives Yes February 10:25am Living Will Yes March 31 10:28am Power of Horticulture Teacher Yes March 31 10:28am Advance Directive Response Recorded Date/ Time Advance Directives Yes February 9:25am Living Will Yes March 31 9:28am Power of Horticulture Teacher Yes March 31 9:28am Advance Directive Response Recorded Date/ Time Name of Medical Power of Horticulture Teacher alexis houser November 06, 2023 8:17am Advance Directives Yes February 10:25am Living Will No November 06, 2023 8 :17am Power of Horticulture Teacher Yes November 06, 2023 8:17am Advance Directive Response Recorded Date/ Time Name of Medical Power of Horticulture Teacher alexis houser November 06, 2023 8:17am Advance Directives Yes February 10:25am Living Will No November 07, 2023 1 1:13am Power of Horticulture Teacher No November 07, 2023 11:13am Advance Directive Response Recorded Date/ Time Advance Directives Yes February 10:25am Advance Directive Response Recorded Date/ Time Living Will No November 07, 2023 1 1:13am Do you have a Healthcare Power of Horticulture Teacher? No November 07, 2023 11:13am Advance Directives Yes February 10:25am Chief Complaint and Reason for Visit Chief Complaint lots of things mohsen g on Chief Complaint lots of things mohsen g on MCCONNELL, fatigue, wants stress test. [facility] FATUGUE, DYSPNEA Amb Documentation E ORDER Reason for Visit Abnormal electrocard iogram MCCONNELL (dyspnea on exertion) Fatigue Essential hypertension Pure hypercholesterolemia Right bundle branch block Chief Complaint lots of things mohsen g on MCCONNELL, fatigue, wants stress test. [facility] FATUGUE, DYSPNEA Amb Documentation E ORDER ABN STRESS TEST, MCCONNELL, FATIGUE ABN STRESS TEST, MCCONNELL, FATIGUE Reason for Visit MCCONNELL (dyspnea on exer tion) Fatigue Essential hypertension Pure hypercholesterolemia Right bundle branch block Chief Complaint lots of things mohsen g on MCCONNELL, fatigue, wants stress test. 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 Hyponatremia Essential hypertension Pure hypercholesterolemia Right bundle branch block Chief Complaint 1 Y FU Other specified abnormal findings of blood biological chemist Reason for Visit 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 Hyponatremia Essential hypertension Pure hypercholesterolemia Right bundle branch block Chief Complaint 1 Y FU Other specified abnormal findings of blood biological chemist ABN THYROID BLOOD TEST Reason for Visit 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 Hyponatremia Essential hypertension Pure hypercholesterolemia Right bundle branch block Chief Complaint 1 Y FU Other specified abnormal findings of blood biological chemist ABN THYROID BLOOD TEST E ORDER Reason for Visit 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 Hyponatremia Essential hypertension Pure hypercholesterolemia Right bundle branch block Chief Complaint 1 Y FU Other specified abnormal findings of blood biological chemist ABN THYROID BLOOD TEST E ORDER THYROID NODULE E ORDERS Reason for Visit 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 Hyponatremia Essential hypertension Pure hypercholesterolemia Right bundle branch block Thyroid nodule Chief Complaint Other specified abno rmal findings of blood biological chemist ABN THYROID BLOOD TEST E ORDER THYROID NODULE E ORDERS anxiety Reason for Visit Thyroid nodule Chief Complaint Other specified abno rmal findings of blood biological chemist ABN THYROID BLOOD TEST E ORDER THYROID NODULE E ORDERS anxiety anxiety Reason for Visit Thyroid nodule Chief Complaint Admit Date Neoplasm of unspecified behavior of bone , soft tis June 12, 2024 9:52am ABN ECHO July 07, 2024 1 1:20am SOB July 28, 2024 7 :20am Reason for Visit Admit Date 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 July 07, 2024 11:20am Dizziness July 07, 2024 1 1:20am MCCONNELL (dyspnea on exertion) July 07, 2024 11:20am SOB (shortness of breath) July 07, 2024 11:20am Essential hypertension July 07 11:20am Pure hypercholesterolemia July 07, 2024 11:20am Right bundle branch block July 07, 2024 11:20am Chief Complaint Admit Date Neoplasm of unspecified behavior of bone , soft tis June 12, 2024 9:52am ABN ECHO July 07, 2024 1 1:20am SOB July 28, 2024 7 :20am 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, 2024 7:39am Chief Complaint Admit Date 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, 2024 7:39am RECALL THYROID October 16, 2024 1:0 0pm ABN HOLTER October 27, 2024 11:00a m 1 Y FU January 18, 2025 9:06 am Reason for Visit Admit Date Thyroid nodule October 16, 2024 1:0 0pm 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 October 27, 2024 11:00am Dizziness October 27, 2024 11:00a m MCCONNELL (dyspnea on exertion) October 27, 2024 11:00am Syncope October 27, 2024 11:00a m Essential hypertension October 27, 2024 11: 00am Pure hypercholesterolemia October 27, 2024 11:00am Right bundle branch block October 27, 2024 11:00am 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 January 18, 2025 9:06am Dizziness January 18, 2025 9:06 am MCCONNELL (dyspnea on exertion) January 18 9:06am Syncope January 18, 2025 9:06 am Essential hypertension January 18, 2025 9 :06am Pure hypercholesterolemia January 18 9:06am Right bundle branch block January 18 9:06am Health Concerns Infection Onset Date Last Indicated [...] COMPLEX 45 MINS Evelina Shafer MD [address] [place] [address] [facility] [place] [address] [place] [id number] Referral ID Status Reason Start Date Expiration Date Visits Requested Visits Authorized [id number] Authorized PCP Requested Referral Auto-Generate d Referral 05/01/2022 05/01/2023 99 99 Specialty Diagnoses / Procedures Referred By Sam collins Referred To Contact CT IMAGING Diagnoses Gross hematuria Procedures CT UROGRAM WO/W IVCON CT ABD & PELVIS W/O CONTRST 1+ BODY REGNS [facility] [address] [place] [address] Ct Imaging Referral ID Status Reason Start Date Expiration Date Visits Requested Visits Authorized [id number] Authorized Auto-Generat ed Referral 06/17/2023 1 1 Specialty Diagnoses / Procedures Referred By Sam collins Referred To Contact CT IMAGING Diagnoses Gross hematuria Procedures CT UROGRAM WO/W IVCON CT ABD & PELVIS W/O CONTRST 1+ BODY REGNS [facility] [address] [place] [address] [place] [address] Referral ID Status Reason Start Date Expiration Date V isits Requested Visits Authorized [id number] Closed Auto-Generate d Referral 05/18/2022 06/17/2023 1 [...] Records FoundNo Status Records FoundNo Status Records FoundNo Status Records Found INFORMATION SOURCE (unrecogn ized section and content) DATE CREATED AUTHOR 07/25/2021 [facility] DATE CREATED AUTHOR AUTHOR'S ORGANIZ ATION 06/29/2022 [facility] DATE CREATED AUTHOR AUTHOR'S ORGANIZ ATION 11/29/2023 [facility] DATE CREATED AUTHOR AUTHOR'S ORGANIZ ATION 01/23/2025 [facility] Source Comments (unrecognize d section and content) In the event this informatio n is protected by the Federal Confidentiality of Alcohol and Drug Abuse Patient Records regulations: The Federal rules restrict any use of the information to criminally investigate or prosecute any alcohol or drug abuse patient.[facility] the event this information is protected by the Federal Confidentiality of Alcohol and Drug Abuse Patient Records regulations: The Federal rules restrict any use of the information to criminally investigate or prosecute any alcohol or drug abuse patient.[facility]In the event this information is protected by the Federal Confidentiality of Alcohol and Drug Abuse Patient Records regulations: The Federal rules restrict any use of the information to criminally investigate or prosecute any alcohol or drug abuse patient.[facility]In the event this information is protected by the Federal Confidentiality of Alcohol and Drug Abuse Patient Records regulations: The Federal rules restrict any use of the information to criminally investigate or prosecute any alcohol or drug abuse patient.[facility]In the event this information is protected by the Federal Confidentiality of Alcohol and Drug Abuse Patient Records regulations: The Federal rules restrict any use of the information to criminally investigate or prosecute any alcohol or drug abuse patient.[facility]In the event this information is protected by the Federal Confidentiality of Alcohol and Drug Abuse Patient Records regulations: The Federal rules restrict any use of the information to criminally investigate or prosecute any alcohol or drug abuse patient.[facility]In the event this information is protected by the Federal Confidentiality of Alcohol and Drug Abuse Patient Records regulations: The Federal rules restrict any use of the information to criminally investigate or prosecute any alcohol or drug abuse patient.[facility]In the event this information is protected by the Federal Confidentiality of Alcohol and Drug Abuse Patient Records regulations: The Federal rules restrict any use of the information to criminally investigate or prosecute any alcohol or drug abuse patient.[facility]In the event this information is protected by the Federal Confidentiality of Alcohol and Drug Abuse Patient Records regulations: The Federal rules restrict any use of the information to criminally investigate or prosecute any alcohol or drug abuse patient.[facility]In the event this information is protected by the Federal Confidentiality of Alcohol and Drug Abuse Patient Records regulations: The Federal rules restrict any use of the information to criminally investigate or prosecute any alcohol or drug abuse patient.[facility] the event this information is protected by the Federal Confidentiality of Alcohol and Drug Abuse Patient Records regulations: The Federal rules restrict any use of the information to criminally investigate or prosecute any alcohol or drug abuse patient.[facility] CampusIn the event this information is protected by the Federal Confidentiality of Alcohol and Drug Abuse Patient Records regulations: The Federal rules restrict any use of the information to criminally investigate or prosecute any alcohol or drug abuse patient.[facility] CampusIn the event this information is protected by [...] or prosecute any alcohol or drug abuse patient.[facility]In the event this information is protected by the Federal Confidentiality of Alcohol and Drug Abuse Patient Records regulations: The Federal rules restrict any use of the information to criminally investigate or prosecute any alcohol or drug abuse patient.[facility] CampusIn the event this information is protected by the Federal Confidentiality of Alcohol and Drug Abuse Patient Records regulations: The Federal rules restrict any use of the information to criminally investigate or prosecute any alcohol or drug abuse patient.[facility] CampusIn the event this information is protected by the Federal Confidentiality of Alcohol and Drug Abuse Patient Records regulations: The Federal rules restrict any use of the information to criminally investigate or prosecute any alcohol or drug abuse patient.[facility] CampusIn the event this information is protected by the Federal Confidentiality of Alcohol and Drug Abuse Patient Records regulations: The Federal rules restrict any use of the information to criminally investigate or prosecute any alcohol or drug abuse patient.[facility] CampusIn the event this information is protected by the Federal Confidentiality of Alcohol and Drug Abuse Patient Records regulations: The Federal rules restrict any use of the information to criminally investigate or prosecute any alcohol or drug abuse patient.[facility] CampusIn the event this information is protected by the Federal Confidentiality of Alcohol and Drug Abuse Patient Records regulations: The Federal rules restrict any use of the information to criminally investigate or prosecute any alcohol or drug abuse patient.[facility] CampusIn the event this information is protected by the Federal Confidentiality of Alcohol and Drug Abuse Patient Records regulations: The Federal rules restrict any use of the information to criminally investigate or prosecute any alcohol or drug abuse patient.[facility] CampusIn the event this information is protected by the Federal Confidentiality of Alcohol and Drug Abuse Patient Records regulations: The Federal rules restrict any use of the information to criminally investigate or prosecute any alcohol or drug abuse patient.[facility] CampusIn the event this information is protected by the Federal Confidentiality of Alcohol and Drug Abuse Patient Records regulations: The Federal rules restrict any use of the information to criminally investigate or prosecute any alcohol or drug abuse patient.[facility] CampusIn the event this information is protected by the Federal Confidentiality of Alcohol and Drug Abuse Patient Records regulations: The Federal rules restrict any use of the information to criminally investigate or prosecute any alcohol or drug abuse patient.[facility] CampusIn the event this information is protected by the Federal Confidentiality of Alcohol and Drug Abuse Patient Records regulations: The Federal rules restrict any use of the information to criminally investigate or prosecute any alcohol or drug abuse patient.[facility] CampusIn the event this information is protected by the Federal Confidentiality of Alcohol and Drug Abuse Patient Records regulations: The Federal rules restrict any use of the information to criminally investigate or prosecute any alcohol or drug abuse patient.[facility] CampusIn the event this information is protected by the Federal Confidentiality of Alcohol and Drug Abuse Patient Records regulations: The Federal rules restrict any use of the information to criminally investigate or prosecute any alcohol or drug abuse patient.[facility] CampusIn the event this information is protected by the Federal Confidentiality of Alcohol and Drug Abuse Patient Records regulations: The Federal rules restrict any use of the information to criminally investigate or prosecute any alcohol or drug abuse patient.[facility] CampusIn the event this information is protected by the Federal Confidentiality of Alcohol and Drug Abuse Patient Records regulations: The Federal rules restrict any use of the information to criminally investigate or prosecute any alcohol or drug abuse patient.[facility] CampusIn the event this information is protected by the Federal Confidentiality of Alcohol and Drug Abuse Patient Records regulations: The Federal rules restrict any use of the information to criminally investigate or prosecute any alcohol or drug abuse patient.[facility] CampusIn the event this information is protected by the Federal Confidentiality of Alcohol and Drug Abuse Patient Records regulations: The Federal rules restrict any use of the information to criminally investigate or prosecute any alcohol or drug abuse patient.[facility] CampusIn the event this information is protected by the Federal Confidentiality of Alcohol and Drug Abuse Patient Records regulations: The Federal rules restrict any use of the information to criminally investigate or prosecute any alcohol or drug abuse patient.[facility] CampusIn the event this information is protected by the Federal Confidentiality of Alcohol and Drug Abuse Patient Records regulations: The Federal rules restrict any use of the information to criminally investigate or prosecute any alcohol or drug abuse patient.[facility] CampusIn the event this information is protected by the Federal Confidentiality of Alcohol and Drug Abuse Patient Records regulations: The Federal rules restrict any use of the information to criminally investigate or prosecute any alcohol or drug abuse patient.[facility] CampusIn the event this information is protected by the Federal Confidentiality of Alcohol and Drug Abuse Patient Records regulations: The Federal rules restrict any use of the information to criminally investigate or prosecute any alcohol or drug abuse patient.[facility] CampusIn the event this information is protected by the Federal Confidentiality of Alcohol and Drug Abuse Patient Records regulations: The Federal rules restrict any use of the information to criminally investigate or prosecute any alcohol or drug abuse patient.[facility] CampusIn the event this information is protected by the Federal Confidentiality of Alcohol and Drug Abuse Patient Records regulations: The Federal rules restrict any use of the information to criminally investigate or prosecute any alcohol or drug abuse patient.[facility] CampusIn the event this information is protected by the Federal Confidentiality of Alcohol and Drug Abuse Patient Records regulations: The Federal rules restrict any use of the information to criminally investigate or prosecute any alcohol or drug abuse patient.[facility] CampusIn the event this information is protected by the Federal Confidentiality of Alcohol and Drug Abuse Patient Records regulations: The Federal rules restrict any use of the information to criminally investigate or prosecute any alcohol or drug abuse patient.[facility] CampusIn the event this information is protected by the Federal Confidentiality of Alcohol and Drug Abuse Patient Records regulations: The Federal rules restrict any use of the information to criminally investigate or prosecute any alcohol or drug abuse patient.[facility] CampusIn the event this information is protected by the Federal Confidentiality of Alcohol and Drug Abuse Patient Records regulations: The Federal rules restrict any use of the information to criminally investigate or prosecute any alcohol or drug abuse patient.[facility] CampusIn the event this information is protected by the Federal Confidentiality of Alcohol and Drug Abuse Patient Records regulations: The Federal rules restrict any use of the information to criminally investigate or prosecute any alcohol or drug abuse patient.[facility] CampusIn the event this information is protected by the Federal Confidentiality of Alcohol and Drug Abuse Patient Records regulations: The Federal rules restrict any use of the information to criminally investigate or prosecute any alcohol or drug abuse patient.[facility] CampusIn the event this information is protected by the Federal Confidentiality of Alcohol and Drug Abuse Patient Records regulations: The Federal rules restrict any use of the information to criminally investigate or prosecute any alcohol or drug abuse patient.[facility] CampusIn the event this information is protected by the Federal Confidentiality of Alcohol and Drug Abuse Patient Records regulations: The Federal rules restrict any use of the information to criminally investigate or prosecute any alcohol or drug abuse patient.[facility] CampusIn the event this information is protected by the Federal Confidentiality of Alcohol and Drug Abuse Patient Records regulations: The Federal rules restrict any use of the information to criminally investigate or prosecute any alcohol or drug abuse patient.[facility]In the event this information is protected by the Federal Confidentiality of Alcohol and Drug Abuse Patient Records regulations: The Federal rules restrict any use of the information to criminally investigate or prosecute any alcohol or drug abuse patient.[facility]In the event this information is protected by the Federal Confidentiality of Alcohol and Drug Abuse Patient Records regulations: The Federal rules restrict any use of the information to criminally investigate or prosecute any alcohol or drug abuse patient.[facility]In the event this information is protected by the Federal Confidentiality of Alcohol and Drug Abuse Patient Records regulations: The Federal rules restrict any use of the information to criminally investigate or prosecute any alcohol or drug abuse patient.[facility]In the event this information is protected by the Federal Confidentiality of Alcohol and Drug Abuse Patient Records regulations: The Federal rules restrict any use of the information to criminally investigate or prosecute any alcohol or drug abuse patient.[facility] CampusIn the event this information is protected by the Federal Confidentiality of Alcohol and Drug Abuse Patient Records regulations: The Federal rules restrict any use of the information to criminally investigate or prosecute any alcohol or drug abuse patient.[facility] CampusIn the event this information is protected by the Federal Confidentiality of Alcohol and Drug Abuse Patient Records regulations: The Federal rules restrict any use of the information to criminally investigate or prosecute any alcohol or drug abuse patient.[facility] Care Teams (unrecognized sec tion and content) Material Mixer Relationship Specialty Start Date End Date Evelina Shafer MD [address] [place] [address] PCP - General Family Practice 06/26/19 Material Mixer Relationship Specialty Start Date End Date Evelina Shafer MD [address] [place] [address] PCP - General Family Practice 06/26/19 Material Mixer Relationship Specialty Start Date End Date Evelina Shafer MD [address] [place] [address] PCP - General Family Practice 06/26/19 [place] [address] [place] [address] Csm Consultant 09/25/21 Material Mixer Relationship Specialty Start Date End Date Evelina Shafer MD [address] [place] [address] PCP - General Family Practice 06/26/19 [place] [address] [place] [address] Csm Consultant 09/25/21 Material Mixer Relationship Specialty Start Date End Date Evelina Shafer MD [address] [place] [address] PCP - General Family Practice 06/26/19 [place] [address] [place] [address] Csm Consultant 09/25/21 Material Mixer Relationship Specialty Start Date End Date Evelina Shafer MD [address] [facility] [place] [address] PCP - General Family Practice 06/26/19 Angelina Mims, RN [address] [place] [address] Csm Consultant 11/28/21 Material Mixer Relationship Specialty Start Date End Date Evelina Shafer MD [address] [facility] [place] [address] PCP - General Family Practice 06/26/19 Angelina Mims RN [address] [place] [address] Csm Consultant 11/28/21 Material Mixer Relationship Specialty Start Date End Date Evelina Shafer MD [address] [facility] [place] [address] PCP - General Family Practice 06/26/19 Angelina Mims RN [address] [place] [address] Csm Consultant 11/28/21 Material Mixer Relationship Specialty Start Date End Date Evelina Shafer MD [address] [facility] [place] [address] PCP - General Family Practice 06/26/19 Angelina Mims RN [address] [place] [address] Csm Consultant 11/28/21 Material Mixer Relationship Specialty Start Date End Date Evelina Shafer MD [address] [facility] [place] [address] PCP - General Family Practice 06/26/19 Angelina Mims RN [address] [place] [address] Csm Consultant 11/28/21 Material Mixer Relationship Specialty Start Date End Date Evelina Shafer MD [address] [facility] [place] [address] PCP - General Family Practice 06/26/19 Kiersten Rich, FARZANA [address] [place] [address] Csm Consultant 09/25/21 Angelina Mims RN [address] [place] [address] Csm Consultant 11/28/21 Material Mixer Relationship Specialty Start Date End Date Evelina Shafer MD [address] [place] [address] PCP - General Family Practice 06/26/19 Angelina Mims RN [address] [place] [address] Csm Consultant 11/28/21 Material Mixer Relationship Specialty Start Date End Date Evelina Shafer MD [address] [place] [address] PCP - General Family Practice 06/26/19 Angelina Mims RN [address] [place] [address] Csm Consultant 11/28/21 Material Mixer Relationship Specialty Start Date End Date Evelina Shafer MD [address] [place] [address] PCP - General Family Practice 06/26/19 Angelina Mims RN [address] [place] [address] Csm Consultant 11/28/21 Material Mixer Relationship Specialty Start Date End Date Evelina Shafer MD [address] [facility] [place] [address] PCP - General Family Medicine 06/26/19 Angelina Mims RN [address] [place] [address] Csm Consultant 11/28/21 Material Mixer Relationship Specialty Start Date End Date Evelina Shafer MD [address] [facility] [place] [address] PCP - General Family Medicine 06/26/19 Angelina Mims, FARZANA [address] [place] [address] Csm Consultant 11/28/21 Material Mixer Relationship Specialty Start Date End Date Evelina Shafer MD [address] [facility] [place] [address] PCP - General Family Medicine 06/26/19 Angelina Mims RN [address] [place] [address] Csm Consultant 11/28/21 Material Mixer Relationship Specialty Start Date End Date Evelina Shafer MD [address] [facility] [place] [address] PCP - General Family Medicine 06/26/19 Angelina Mims RN [address] [place] [address] Csm Consultant 11/28/21 Material Mixer Relationship Specialty Start Date End Date Evelina Shafer MD [address] [facility] [place] [address] PCP - General Family Medicine 06/26/19 Angelina Mims RN [address] [place] [address] Csm Consultant 11/28/21 Material Mixer Relationship Specialty Start Date End Date Evelina Shafer MD [address] [facility] [place] [address] PCP - General Family Medicine 06/26/19 Angelina Mims, FARZANA [address] [place] [address] Csm Consultant 11/28/21 Material Mixer Relationship Specialty Start Date End Date Evelina Shafer MD [address] [facility] [place] [address] PCP - General Family Medicine 06/26/19 Angelina Mims RN [address] [place] [address] Csm Consultant 11/28/21 Material Mixer Relationship Specialty Start Date End Date Evelina Shafer MD [address] [place] [address] PCP - General Family Medicine 06/26/19 Petty Joe, FARZANA [facility] [address] [place] [address] Csm Consultant 11/28/21 Material Mixer Relationship Specialty Start Date End Date Evelina Shafer MD [address] [place] [address] PCP - General Family Medicine 06/26/19 Petty Joe, FARZANA [facility] [address] [place] [address] Csm Consultant 11/28/21 Material Mixer Relationship Specialty Start Date End Date Evelina Shafer MD [address] [place] [address] PCP - General Family Medicine 06/26/19 Petty Joe RN [facility] [address] [place] [address] Csm Consultant 11/28/21 Material Mixer Relationship Specialty Start Date End Date Evelina Shafer MD [address] [place] [address] PCP - General Family Medicine 06/26/19 Petty Joe RN [facility] [address] [place] [address] Csm Consultant 11/28/21 Material Mixer Relationship Specialty Start Date End Date Evelina Shafer MD [address] [place] [address] PCP - General Family Medicine 06/26/19 Petty Joe, FARZANA [facility] [address] [place] [address] Csm Consultant 11/28/21 Material Mixer Relationship Specialty Start Date End Date Evelina Shafer MD [address] [place] [address] PCP - General Family Medicine 06/26/19 Petty Joe, RN [facility] [address] [place] [address] Csm Consultant 11/28/21 Material Mixer Relationship Specialty Start Date End Date Evelina Shafer MD [address] [place] [address] PCP - General Family Medicine 06/26/19 Petty Joe, FARZANA [facility] [address] [place] [address] Csm Consultant 04/28/22 Material Mixer Relationship Specialty Start Date End Date Evelina Shafer MD [address] [place] [address] PCP - General Family Medicine 06/26/19 Petty Joe, FARZANA [facility] [address] [place] [address] Csm Consultant 04/28/22 Material Mixer Relationship Specialty Start Date End Date Evelina Shafer MD [address] [place] [address] PCP - General Family Medicine 06/26/19 Petty Joe, FARZANA [facility] [address] [place] [address] Csm Consultant 04/28/22 Material Mixer Relationship Specialty Start Date End Date Evelina Shafer MD [address] [place] [address] PCP - General Family Medicine 06/26/19 Petty Joe, FARZANA [facility] [address] [place] [address] Csm Consultant 04/28/22 Material Mixer Relationship Specialty Start Date End Date Evelina Shafer MD [address] [place] [address] PCP - General Family Medicine 06/26/19 Petty Joe, FARZANA [facility] [address] [place] [phone] Csm Consultant 04/28/22 Material Mixer Relationship Specialty Start Date End Date Evelina Shafer MD [address] [place] [address] PCP - General Family Medicine 06/26/19 Petty Joe, FARZANA [facility] [address] [place] [phone] Csm Consultant 04/28/22 Material Mixer Relationship Specialty Start Date End Date Evelina Shafer MD [address] [place] [address] PCP - General Family Medicine 06/26/19 Petty Joe RN [facility] [address] [place] [phone] Csm Consultant 04/28/22 Material Mixer Relationship Specialty Start Date End Date Evelina Shafer MD [address] [place] [address] PCP - General Family Medicine 06/26/19 Petty Joe RN [facility] [address] [place] [phone] Csm Consultant 04/28/22 Material Mixer Relationship Specialty Start Date End Date Evelina Shafer MD [address] [place] [address] PCP - General Family Medicine 06/26/19 Petty Joe, FARZANA [facility] [address] [place] [phone] Csm Consultant 04/28/22 Team Status: Active Member Role Status Dates Dr. Carmen Garcia MD Family Provider Active Dr. Lenin Hidalgo MD Primary Care Provider Active Team Status: Inactive Member Role Status Dates Dr. Lenin Hidalgo MD Primary Care Provider, Efrain knight Active Team Status: Inactive Member Role Status Dates Dr. Lenin Hidalgo MD Primary Care Provide r, Attending Provider, Referring Provider Active Material Mixer Relationship Specialty Start Date End Date Evelina Shafer MD [address] [place] [address] PCP - General Family Medicine 06/26/19 Petty Joe, FARZANA [facility] [address] [place] [address] Csm Consultant 04/28/22 Material Mixer Relationship Specialty Start Date End Date Evelina Shafer MD [address] [place] [address] PCP - General Family Medicine 06/26/19 Petty Joe, FARZANA [facility] [address] [place] [address] Csm Consultant 04/28/22 Material Mixer Relationship Specialty Start Date End Date Evelina Shafer MD [address] [place] [address] PCP - General Family Medicine 06/26/19 Petty Joe RN [facility] [address] [place] [address] Csm Consultant 04/28/22 Team Status: Inactive Member Role Status Dates Dr. Lenin Hidalgo MD Primary Care Provider, Referring P rovider Active Asia Qureshi QUALITY CONTROLLER, QUALITY CONTROLLER-C Attending Provider Active Team Status: Inactive Member Role Status Dates Dr. Lenin Hidalgo MD Primary Care Provider Active Dr. Evelina Moran MD Attending Provider, Referr ing Provider Active Team Status: Inactive Member Role Status Dates Dr. Lenin Hidalgo MD Primary Care Provider, Referring P rovider Active Dr. Miguel Kirby MD Attending Provider Active Team Status: Active Member Role Status Dates Dr. Lenin Hidalgo MD Primary Care Provider Active Dr. Miguel Kirby MD Attending Provider, Referring P rovider Active Team Status: Inactive Member Role Status Dates Dr. Lenin Hidalgo MD Primary Care Provider Active Noble Figueroa MD Emergency Provider Active Team Status: Inactive Member Role Status Dates Dr. Lenin Hidalgo MD Primary Care Provider Active Dr. Fredrick Dorsey DO Emergency Provider Active Material Mixer Relationship Specialty Start Date End Date Lenin Hidalgo MD [address] [place], [place] [address] PCP - General Family Medicine 11/29/23 Material Mixer Relationship Specialty Start Date End Date Evelina Shafer MD [address] [facility], [place] [address] PCP - General Family Medicine 06/26/19 11/02/23 Material Mixer Relationship Specialty Start Date End Date Evelina Shafer MD [address] [place], [place] [address] PCP - General Family Medicine 06/26/19 11/02/23 Team Status: Active Member Role Status Dates Dr. Lenin Hidalgo MD Primary Care Provider Active Team Status: Inactive Member Role Status Dates Dr. Lenin Hidalgo MD Primary Care Provider Active Start: June 05, 2024 End: June 05, 2024 Dr. Lenin Hidalgo MD Attending Provider Active St art: June 05, 2024 End: June 05, 2024 Dr. Lenin Hidalgo MD Referring Provider Active St art: June 05, 2024 End: June 05, 2024 Team Status: Inactive Member Role Status Dates Dr. Lenin Hidalgo MD Primary Care Provider Active Start: June 12, 2024 End: June 12, 2024 Dr. Delphine Neri DPM Attending Provider Active Start: June 12, 2024 End: June 12, 2024 Dr. Delphine Neri DPM Referring Provider Active Start: June 12, 2024 End: June 12, 2024 Team Status: Inactive Member Role Status Dates Dr. Lenin Hidalgo MD Primary Care Provider Active Start: June 16, 2024 End: June 16, 2024 Dr. Lenin Hidalgo MD Attending Provider Active St art: June 16, 2024 End: June 16, 2024 Dr. Lenin Hidalgo MD Referring Provider Active St art: June 16, 2024 End: June 16, 2024 Team Status: Inactive Member Role Status Dates Dr. Lenin Hidalgo MD Primary Care Provider Active Start: July 07, 2024 End: July 07, 2024 Dr. Lenin Hidalgo MD Referring Provider Active St art: July 07, 2024 End: July 07, 2024 Dr. Trenton Gerard MD Attending Provider Active S tart: July 07, 2024 End: July 07, 2024 Team Status: Inactive Member Role Status Dates Dr. Lenin Hidalgo MD Primary Care Provider Active Start: July 17, 2024 End: July 17, 2024 Dr. Lenin Hidalgo MD Attending Provider Active St art: July 17, 2024 End: July 17, 2024 Dr. Lenin Hidalgo MD Referring Provider Active St art: July 17, 2024 End: July 17, 2024 Team Status: Inactive Member Role Status Dates Dr. Lenin Hidalgo MD Primary Care Provider Active Start: July 28, 2024 End: July 28, 2024 Dr. Trenton Gerard MD Attending Provider Active S tart: July 28, 2024 End: July 28, 2024 Dr. Trenton Gerard MD Referring Provider Active S tart: July 28, 2024 End: July 28, 2024 Team Status: Inactive Member Role Status Dates Dr. Lenin Hidalgo MD Primary Care Provider Active Start: September 19, 2024 End: September 19, 2024 Dr. Red Garcia MD Attending Provider Active Start: September 19, 2024 End: September 19, 2024 Team Status: Active Member Role Status Dates Dr. Lenin Hidalgo MD Primary Care Provider Active Start: September 25, 2024 Dr. Lenin Hidalgo MD Attending Provider Active St art: September 25, 2024 Dr. Lenin Hidalgo MD Referring Provider Active St art: September 25, 2024 Team Status: Inactive Member Role Status Dates Dr. Lenin Hidalgo MD Primary Care Provider Active Start: September 25, 2024 End: September 25, 2024 Dr. Lenin Hidalgo MD Attending Provider Active St art: September 25, 2024 End: September 25, 2024 Dr. Lenin Hidalgo MD Referring Provider Active St art: September 25, 2024 End: September 25, 2024 Team Status: Inactive Member Role Status Dates Dr. Lenin Hidalgo MD Primary Care Provider Active Start: October 02, 2024 End: October 02, 2024 Dr. Allyn Gallegos DO Attending Provider Active Start: October 02, 2024 End: October 02, 2024 Dr. Allyn Gallegos DO Referring Provider Active Start: October 02, 2024 End: October 02, 2024 Team Status: Active Member Role Status Dates Dr. Lenin Hidalgo MD Primary Care Provider Active Start: October 05, 2024 Dr. Lenin Hidalgo MD Attending Provider Active St art: October 05, 2024 Dr. Lenin Hidalgo MD Referring Provider Active St art: October 05, 2024 Dr. Allyn Gallegos DO Other Provider Active Sta rt: October 05, 2024 Team Status: Inactive Member Role Status Dates Dr. Lenin Hidalgo MD Primary Care Provider Active Start: October 05, 2024 End: October 05, 2024 Dr. Lenin Hidalgo MD Attending Provider Active St art: October 05, 2024 End: October 05, 2024 Dr. Lenin Hidalgo MD Referring Provider Active St art: October 05, 2024 End: October 05, 2024 Dr. Allyn Gallegos DO Other Provider Active Sta rt: October 05, 2024 End: October 05, 2024 Team Status: Active Member Role/Relationship Status Dates Dr. Lenin Hidalgo MD Primary Care Provider Active Team Status: Inactive Member Role/Relationship Status Dates Dr. Lenin Hidalgo MD Primary Care Provider Active Start: September 25, 2024 End: September 25, 2024 Dr. Lenin Hidalgo MD Attending Provider Active St art: September 25, 2024 End: September 25, 2024 Dr. Lenin Hidalgo MD Referring Provider Active St art: September 25, 2024 End: September 25, 2024 Team Status: Inactive Member Role/Relationship Status Dates Dr. Lenin Hidalgo MD Primary Care Provider Active Start: October 02, 2024 End: October 02, 2024 Dr. Allyn Gallegos DO Attending Provider Active Start: October 02, 2024 End: October 02, 2024 Dr. Allyn Gallegos DO Referring Provider Active Start: October 02, 2024 End: October 02, 2024 Team Status: Inactive Member Role/Relationship Status Dates Dr. Lenin Hidalgo MD Primary Care Provider Active Start: October 05, 2024 End: October 05, 2024 Dr. Lenin Hidalgo MD Attending Provider Active St art: October 05, 2024 End: October 05, 2024 Dr. Lenin Hidalgo MD Referring Provider Active St art: October 05, 2024 End: October 05, 2024 Dr. Allyn Gallegos DO Other Provider Active Sta rt: October 05, 2024 End: October 05, 2024 Team Status: Inactive Member Role/Relationship Status Dates Dr. Lenin Hidalgo MD Primary Care Provider Active Start: October 16, 2024 End: October 16, 2024 Dr. Lenin Hidalgo MD Referring Provider Active St art: October 16, 2024 End: October 16, 2024 Dr. Miguel Kirby MD Attending Provider Active Start: October 16, 2024 End: October 16, 2024 Team Status: Inactive Member Role/Relationship Status Dates Dr. eLnin Hidalgo MD Primary Care Provider Active Start: October 27, 2024 End: October 27, 2024 Dr. Lenin Hidalgo MD Referring Provider Active St art: October 27, 2024 End: October 27, 2024 ERA Andino Attending Provider Active St art: October 27, 2024 End: October 27, 2024 Team Status: Inactive Member Role/Relationship Status Dates Dr. Lenin Hidalgo MD Primary Care Provider Active Start: January 18, 2025 End: January 18, 2025 Dr. Lenin Hidalgo MD Referring Provider Active St art: January 18, 2025 End: January 18, 2025 Asia Qureshi QUALITY CONTROLLER, QUALITY CONTROLLER-C Attending Provider Active Start: January 18, 2025 End: January 18, 2025 Reason for Visit (unrecogniz ed section and [...] PELVIS W/O CONTRST 1+ BODY REGNS [facility] [address] [place] [address] [place] [address] Referral ID Status Reason Start Date Expiration Date V isits Requested Visits Authorized [id number] Closed Auto-Generate d Referral 05/18/2022 06/17/2023 1 1 Reason Onset Date Comments cdm outreach 05/03/2023 Telephonic cdm Reason Comments Radiology XR Goals (unrecognized section and content) Goals may be documented in a n alternate sectionGoals may be documented in an alternate sectionGoals may be documented in an alternate sectionGoals may be documented in an alternate sectionGoals may be documented in an alternate sectionGoals may be documented in an alternate sectionGoals may be documented in an alternate sectionGoals may be documented in an alternate sectionGoals may be documented in an alternate sectionGoals may be documented in an alternate sectionGoals may be documented in an alternate sectionGoals may be documented in an alternate sectionGoals may be documented in an alternate sectionGoals may be documented in an alternate sectionGoals may be documented in an alternate sectionGoals may be documented in an alternate sectionGoals may be documented in an alternate sectionGoals may be documented in an alternate sectionGoals may be documented in an alternate sectionGoals may be documented in an alternate section FOR RECORDS PERTAINING TO PATIENTS WHO ARE [...] BE BASED ON THE PRIMARY CLINICAL RECORDS. [employer] provides no warranty or guarantee of the accuracy or completeness of information in this document.
--- NOTE | 2025-01-24 15:32 | STRESSREP ---
Stress Test Report Exercise myocardial perfusion stress test. 75-year-old male with a history of dyspnea Stress protocol: Resting EKG demonstrates normal sinus rhythm with a right bundle branch block and a rate of 72 bpm resting blood pressure is 118/70 mmHg. The patient exercised according to the regular [facility] protocol for a total duration of 6-1/2 minutes attaining a maximum heart rate of 134 bpm which was 91% of maximum predicted heart rate; the maximum workload was 8.5 metabolic equivalents. At rest there were no ST or T wave changes noted to suggest ischemia and at peak exercise upsloping ST changes only were noted which did not meet the criteria for ischemia. No clinical angina was noted the test was terminated due to the target heart rate being achieved/fatigue. The peak blood pressure was 148/70 mmHg. Rate-pressure product was 18,000. Myocardial perfusion protocol. 14.5 mCi of technetium 99m sestamibi was injected at rest. The patient exercised according to regular [facility] protocol for total duration of 6-1/2 minutes and at peak exercise 44.1 mCi of technetium 99m sestamibi was injected stress images were obtained stress and rest images were reconstructed in comparing the short axis vertical long and horizontal long axis. Perfusion SPECT analysis: Review of the stress images demonstrate normal uptake of tracer noted in all areas of the myocardium. The resting images similarly demonstrate normal uptake of tracer noted in all areas of the myocardium. No areas of reversibility are noted to suggest ischemia no previous infarct was noted. Conclusion: Normal exercise myocardial perfusion stress test at a moderate workload Preserved ejection fraction.
== END | disposition home or self-care (01) ==
LOC: CVS 06:29
PROVIDERS: PCP Family Medicine; Referring Provider Nurse Practitioner Gerontology; Visit Provider Nurse Practitioner Gerontology
DX: R06.09 Other forms of dyspnea (principal); R53.83 Other fatigue
CPT/HCPCS: 78452; 93017; A9500; A4216

== ENCOUNTER → 2025-02-14 | Outpatient (CLI) | payer MEDICARE, OTHER, SELFPAY ==
[2025-02-14 14:19] LABS: Hematocrit 35.1 % (40-54); Hemoglobin 11.9 g/dL (13.0-16.5); Immature Granulocytes Count 0.020 X10^3/uL (0.0-0.0); Mean Corp Hgb Conc 33.9 g/dL (32-36); Mean Corpuscular Volume 94.9 fL (80-94); Mean Platelet Vol. 8.3 fl (6.2-12.0); NRBC Flagged by Analyzer 0 % (0-5); Platelet Count 323 K/mm3 (150-450); RBC Distribution Width CV 11.9 % (11.6-14.6); RBC Distribution Width SD 41.5 fl (35.1-43.9); Red Blood Count 3.70 M/mm3 (4.6-6.2); White Blood Count 7.0 K/mm3 (4.4-11.0)
[2025-02-14 15:00] LABS: Microalbumin,Random Urine 31.2 mg/L (<20 mg/L)
[2025-02-14 16:02] LABS: AST(SGOT) 20 U/L (<=37); Alanine Aminotransfer ALT/SGPT 15 U/L (<=46); Albumin, Serum 4.3 g/dL (3.4-4.8); Alkaline Phosphatase 62 U/L (40-129); Anion Gap 12 (5-15); BUN 21 mg/dL (4-19); BUN/Creat Ratio 17.1 RATIO (10-20); Calcium,Total 9.6 mg/dL (7.6-11.0); Carbon Dioxide 24.7 mmol/L (21.0-32.0); Chloride 93 mmol/L (98-108); Cholesterol 169 mg/dL (<=200); Globulin 3.1 g/dL (2.2-4.2); Glucose 122 mg/dL (70-99); Low Density Lipoprotein Calc. 86 mg/dL; Potassium 4.8 mmol/L (3.3-5.1); Triglycerides 79 mg/dL; Very Low Density Lipoprotein 16 mg/dL (5-40); cholesterol:hdl ratio screen 2.50
== END | disposition home or self-care (01) ==
LOC: LAB 13:29
PROVIDERS: PCP Family Medicine; Visit Provider Family Medicine
DX: E11.22 Type 2 diabetes mellitus with diabetic chronic kidney disease (principal); G25.81 Restless legs syndrome; N18.9 Chronic kidney disease, unspecified
CPT/HCPCS: 36415; 80053; 80061; 82043; 83036; 84443; 85025

== ENCOUNTER → 2025-05-03 | Outpatient (CLI) | payer MEDICARE, OTHER, SELFPAY ==
[2025-05-03 13:09] LABS: Hematocrit 34.1 % (40-54); Hemoglobin 11.8 g/dL (13.0-16.5); Immature Granulocytes Count 0.010 X10^3/uL (0.0-0.0); Mean Corp Hgb Conc 34.6 g/dL (32-36); Mean Corpuscular Volume 93.7 fL (80-94); Mean Platelet Vol. 8.3 fl (6.2-12.0); NRBC Flagged by Analyzer 0 % (0-5); Platelet Count 323 K/mm3 (150-450); RBC Distribution Width CV 12.2 % (11.6-14.6); RBC Distribution Width SD 41.8 fl (35.1-43.9); Red Blood Count 3.64 M/mm3 (4.6-6.2); White Blood Count 4.7 K/mm3 (4.4-11.0)
[2025-05-03 13:33] LABS: CRP < 3.00 mg/L (0.0-3.0)
== END | disposition home or self-care (01) ==
PROVIDERS: PCP Family Medicine; Visit Provider Ophthalmology
DX: H46.9 Unspecified optic neuritis (principal)
CPT/HCPCS: 36415; 85025; 85652; 86140

== ENCOUNTER → 2025-05-04 | Outpatient (CLI) | payer MEDICARE, OTHER, SELFPAY ==
--- NOTE | 2025-05-04 07:20 | MRI_ITS ---
PROCEDURE: BRAIN W/WO CONTRAST 05/04/2025 REASON FOR EXAM: NEW OPTIC NERVE SWELLING; LEFT EYE TECHNIQUE: Procedure Code: [id number] Modality: MR Procedure: BRAIN W/WO CONTRAST Multiplanar and multisequence images were obtained. CONTRAST: VOLUME: mL COMPARISON: 09/22/2023. FINDINGS: Numerous scattered FLAIR hyperintense foci are noted throughout the bilateral cerebral white matter, mildly increased since the previous study. No corresponding enhancement. 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 Mild generalized atrophy with commensurate ventriculomegaly, unchanged. The remainder of the brain parenchyma appears unremarkable. The johnson-white matter differentiation is appropriate. No midline shift. The midline structures are intact, specifically the corpus callosum, septum pellucidum, pituitary gland, and cerebellar vermis. The cervicomedullary junction appears unremarkable. Small mucous retention cysts within the bilateral maxillary sinuses, unchanged. Evidence of right cataract surgery. The bilateral optic nerves appear symmetric and unremarkable, without abnormal signal nor abnormal enhancement. Diffusion-weighted images demonstrate no restricted diffusion. No abnormal enhancement pattern. MRI/Brain W/WO Contrast IMPRESSION: Nonspecific, nonenhancing FLAIR hyperintense foci throughout the bilateral cere bral white matter, mildly increased since the previous study. This likely represents chronic microvascular ischemic changes. Stable mild generalized atrophy. Small mucous retention cysts within the bilateral maxillary sinuses, unchanged. Reading Location: [id number]
--- OUTSIDE RECORDS SUMMARY | 2025-05-04 07:32 | XMS RPT_ITS | CCD ---
Author Organization [facility] Care Team Providers Care Machine Pecan Gatherer Name Role Phone Evelina Shafer MD Primary Care Provider Hilario YANES, Kiersten Unavailable Prasanna RN, Angelina Unavailable Evelina Shafer MD Primary Care Provider Prasanna YANES, Angelina Unavailable Dr. Georges Shafer Primary Care Provider Dr. Georges Shafer Referring Provider Titus OPERATIONS DIRECTOR, OPERATIONS DIRECTOR-C Asia Attending Provider Dr. Trenton Gerard Attending Provider Citlali Toribio Attending Provider Unavailable Dr. Trenton Gerard Referring Provider Dr. Trenton Gerard Other Provider Loretta OPERATIONS DIRECTOR, OPERATIONS DIRECTOR-C Arnie Nunez Attending Provider Evelina Shafer MD [...] Dr. Lenin Hidalgo Referring Provider Titus RIVER, OPERATIONS DIRECTOR-C Asia Attending Provider Dr. Lenin Hidalgo Primary Care Provider Dr. Lenin Hidalgo Referring Provider Titus OPERATIONS DIRECTOR, OPERATIONS DIRECTOR-C Asia Attending Provider Dr. Miguel Kirby Attending Provider Dr. Lenin Hidalgo Primary Care Provider 1([facility])[phone] Dr. Lenin Hidalgo Referring Provider 1([facility])[phone] Lenin Hidalgo MD Primary Care Provider Soni PEÑA, Evelina Mccullough Primary Care Provider Rocky PEÑA, Dr. Phelps Primary Care Provider 1([facility])[phone] Rocky PEÑA, Dr. Phelps Attending Provider Dr. Lenin Hidalgo MD Referring Provider 1([facility])[phone] Halle DPM, Dr. Akers Attending Provider 1([facility])[phone] Halle DPM, Dr. Akers Referring Provider 1([facility])[phone] Moustapha PEÑA, Dr. Chowdhury Attending Provider Moustapha PEÑA, Dr. Chowdhury Referring Provider 1([facility])[phone] Radha PEÑA, Dr. Moon Attending Provider Rocky PEÑA, Dr. Phelps Primary Care Provider 1([facility])[phone] Dr. Lenin Hidalgo MD Attending Provider 1([facility])[phone] Lenin Hidalgo MD Referring Provider 1([facility])[phone] Allyn Gallegos DO Attending Provider [phone] Allyn Gallegos DO Referring Provider [phone] Allyn Gallegos DO Other Provider [phone] Rocky PEÑA, Dr. Phelps Primary Care Provider Dr. Lenin Hidalgo MD Attending Provider [phone] Lenin Hidalgo MD Referring Provider [phone] Miguel Kirby MD Attending Provider 1([facility])[phone] Shruthi GIRARD, Chris Attending Provider 1([facility])[phone] Titus OPERATIONS DIRECTOR-CAsia Attending Provider Rocky PEÑA, Dr. Phelps Primary Care Provider Rocky PEÑA, Dr. Phelps Attending Provider Rocky PEÑA, Dr. Phelps Referring Provider Titus OPERATIONS DIRECTOR-C, Asia Referring Provider 1([facility])[phone] Titus OPERATIONS DIRECTOR-C, Asia Other Provider 1([facility])[phone] Moustapha PEÑA, Dr. Chowdhury Attending Provider Rocky PEÑA, Dr. Phelps Primary Care Provider Rocky PEÑA, Dr. Phelps Referring Provider Rocky PEÑA, Dr. Phelps Attending Provider El ROJO, Dr. Gruber Other Provider 1([facility])[phone] Hidalgo, Lenin Primary Care Unavailable Hidalgo, Lenin Attending Unavailable Hidalgo, Lenin Primary Care Unavailable Hidalgo, Lenin Attending Unavailable Hidalgo, Lenin Referring Unavailable Hidalgo, Lenin Primary Care Unavailable Hidalgo, Lenin Attending Unavailable Hidalgo, Lenin Primary Care Unavailable Red Garcia Attending Unavailable El, Allyn Referring Unavailable El, Allyn Attending Unavailable Hidalgo, Lenin Primary Care Unavailable Hidalgo, Lenin Primary Care Unavailable Hidalgo, Lenin Attending Unavailable Prasanth Gallegosine Consulting Unavailable Hidalgo, Lenin Primary Care Unavailable Hidalgo, Lenin Attending Unavailable Qureshi OPERATIONS DIRECTOR, Asia Referring Unavailable Qureshi OPERATIONS DIRECTOR, Asia Attending Unavailable Hidalgo, Lenin Primary Care Unavailable Hidalgo, Lenin Primary Care Unavailable Horn, Delphine Referring Unavailable Horn, Delphine Attending Unavailable Hidalgo, Lenin Primary Care Unavailable Hidalgo, Lenin Attending Unavailable Hidalgo, Lenin Referring Unavailable Hidalgo, Lenin Primary Care Unavailable Hidalgo, Lenin Attending Unavailable Eugenia Pastrana Attending Unavailable Hidalgo, Lenin Primary Care Unavailable Hidalgo, Lenin Primary Care Unavailable Qureshi OPERATIONS DIRECTOR, Asia Attending Unavailable Hidalgo, Lenin Primary Care Unavailable Qureshi OPERATIONS DIRECTOR, Asia Referring Unavailable Qureshi OPERATIONS DIRECTOR, Asia Consulting Unavailable Moustapha, Newcomb Attending Unavailable Hidalgo, Lenin Referring Unavailable Hidalgo, Lenin Primary Care Unavailable Moustapha, Newcomb Attending Unavailable iMguel Kirby Attending Unavailable Hidalgo, Lenin Referring Unavailable Hidalgo, Lenin Primary Care Unavailable Hidalgo, Lenin Primary Care Unavailable Moustapha, Newcomb Attending Unavailable Moustapha, Newcomb Referring Unavailable Hidalgo, Lenin Referring Unavailable Hidalgo, Lenin Primary Care Unavailable Hidalgo, Lenin Attending Unavailable Hidalgo, Lenin Referring Unavailable Hidalgo, Lenin Primary Care Unavailable Hidalgo, Lenin Attending Unavailable Bortz, Miguel Referring Unavailable Mirta, Miguel Attending Unavailable Hidalgo, Lenin Primary Care Unavailable Allyn Gallegos Attending Unavailable Hidalgo, Lenin Primary Care Unavailable Hidalgo, Lenin Primary Care Unavailable Trenton Gerard Attending Unavailable Hidalgo, Lenin Referring Unavailable Titus OPERATIONS DIRECTOR, Asia Attending Unavailable Hidalgo, Lenin Primary Care Unavailable Chris Hawkins Attending Unavailable Hidalgo, Lenin Referring Unavailable Hidalgo, Lenin Primary Care Unavailable Hidalgo, Lenin Primary Care Unavailable Hidalgo, Lenin Attending Unavailable Hidalgo, Lenin Primary Care Unavailable Hidalgo, Lenin Referring Unavailable Hidalgo, Lenin Attending Unavailable Hidalgo, Lenin Primary Care Unavailable Allyn Gallegos Consulting Unavailable Hidalgo, Lenin Referring Unavailable Hidalgo, Lenin Attending Unavailable Hidalgo, Lenin Referring Unavailable Hidalgo, Lenin Primary Care Unavailable Hidalgo, Lenin Attending Unavailable Allergies Allergy Classification Reported Allergen(s) Allergy Type Date of Onset Reaction(s) Facility (20 sources) atorvastatin Drug Allergy 12-28-19 Mental Status Change [facility] Work Phone: (20 sources) diphenhydrAMINE Drug Allergy 07-01-19 Other: See Comments [facility] Work Phone: Comment on above: paradoxical effect (9 sources) Penicillins Propensity to adverse reactions 11-19-19 [facility] Work Phone: (20 sources) tamsulosin Drug Allergy 06-26-20 19 Other: See Comments [facility] Work Phone: (8 sources) Thiazides Propensity to adverse reactions to drug 03-02-20 21 Contraindicati on-Medical Surgical [facility] Work Phone: (20 sources) traZODone Drug Allergy 07-01-19 Mental Status Change [facility] Work Phone: Comment on above: increased anxiety (20 sources) Penicillins Propensity to adverse reactions 11-19-19 06 [facility] Work Phone: (20 sources) Thiazides Propensity to adverse reactions to drug 03-02-20 21 Contraindicati on-Medical Surgical [facility] Work Phone: (20 sources) Penicillins Allergy to substance 02-11-20 22 Rash [facility] (19 sources) Simvastatin Drug Allergy 03-31-20 "messed with my head" [facility] (20 sources) HMG-CoA reductase inhibitor Drug Intolerance 05-18-20 Mental Status Change [facility] (9 sources) ezetimibe Drug Allergy 09-11-19 23 Mental Status Change [facility] Work Phone: (10 sources) Thiazides Allergy to substance 11-05-19 Other [facility] Comment on above: hypoNA (10 sources) Uehdcbs-Bef-Lfj Reductase Inhibitor Allergy to substance 11-05-19 Other [facility] Comment on above: mental status change s (1 source) atorvastatin Drug Allergy 01-19-20 [facility] Repository (1 source) diphenhydrAMINE Drug Allergy 01-19-20 [facility] (1 source) Penicillins Drug allergy (disorder) 01-19-20 [facility] (1 source) Simvastatin Drug Allergy 01-19-20 [facility] (1 source) Thiazides Drug allergy (disorder) 01-19-20 [facility] (1 source) traZODone Drug Allergy 01-19-20 [facility] (1 source) Ljaretk-Hla-Ndw Reductase Inhibitor Drug allergy (disorder) 01-19-20 [facility] Medications Current Medications Medication Drug Class(es) Dates Sig (Normalized) Sig (Original) amylase 632500 unt / lipase 29550 unt / protease 450314 unt delayed release oral capsule (6 sources) Start: 10-27-2024 End: 01-18-2025 Hqpfad-Geekeftc-Eox lase (Creon) 36,000-114,000- 180,000 unit capsule,delayed release(DR/EC) Active NMA PO THREE TIMES A DAY January 18, 2025 9:18am 4 caps every meal. 2 caps with each snack. aspirin 81 mg oral tablet (20 sources) Platelet Aggregation Inhibitor, Nonsteroidal Anti-inflammatory Drug Start: 03-16-2022 take 1 capsule by mouth once daily Aspirin 81 mg Capsule Active 81 mg PO DAILY March 16, 2022 12:00am azelastine hydrochloride 0.137 mg/actuat metered dose nasal spray (7 sources) Histamine-1 Receptor Antagonist Start: 07-07-2024 Azelastine 137 mcg (0.1 %) spray,non-aerosol Active INTRANASAL as needed for Allergies July 07, 2024 1:00am cholecalciferol 0.05 mg oral capsule (10 sources) Vitamin D Start: 11-05-2023 take 1 capsule by mouth once daily Cholecalciferol (Vitamin D3) 50 mcg (2,000 unit) capsule Active 50 ug PO DAILY November 05, 2023 12:00am DULoxetine 40 mg delayed release oral capsule (10 sources) Serotonin and Norepinephrine Reuptake Inhibitor Start: 01-18-2025 take 1 capsule by mouth once daily Duloxetine 40 mg capsule,delayed release(DR/EC) Active 40 mg PO daily January 18, 2025 12:00am Start: 07-07-2024 take 1 capsule by mo [facility] once daily Duloxetine 60 mg capsule,delayed release(DR/EC) [...] Comment on above: [facility] eszopiclone 1 mg oral tablet (1 source) Start: 12-03-2022 End: 01-01-2023 take 1 tablet by mouth 2 hour(s) before bedtime eszopiclone (LUNESTA) 1 mg tab Indications: Insomnia due to medical condition , RLS (restless legs syndrome) Take (1) tablet by mouth two hours before bedtime FOR INSOMNIA 30 tablet 2 12/03/2022 01/01/2023 Active Comment on above: Take (1) tablet by [facility] two hours before bedtime FOR INSOMNIA fexofenadine hydrochloride 180 mg oral tablet (3 sources) Histamine-1 Receptor Antagonist Start: 01-18-2025 take 1 [...] administration guidelines link. l-methyl folate 5 mg (3 sources) Start: 01-18-2025 take 5 mg by mouth once daily l-methyl folate 5 mg Active 1 {tbl} PO daily January 18, 2025 12:00am lisdexamfetamine dimesylate 60 mg oral capsule (7 sources) Central Nervous System Stimulant Start: 07-07-2024 [...] 2022 12:00am take 2 tablets by mo [facility] once daily Magnesium 250 mg tab Indications: Elevated serum creatinine Take 500 mg by mouth once daily. 0 Active Comment on above: Take 500 mg by mouth once daily. Multivitamin preparation (15 sources) Start: 02-08-2021 take 1 tablet by mouth once daily Multivitamin Active 1 TABLET PO DAILY February 07, 2021 11:00pm Start: 02-08-2021 take 1 tablet by anthony once daily Multivitamin Active 1 TABLET PO DAILY February 08, 2021 12:00am Multivitamin Tablet (7 sources) Start: 02-08-2021 Multivitamin Tablet Active 1 {tbl} PO DAILY February 08, 2021 12:00am pioglitazone 30 mg oral tablet (7 sources) Peroxisome Proliferator Receptor alpha Agonist, Peroxisome Proliferator Receptor gamma Agonist, Thiazolidinedione Start: 07-07-2024 take 1 tablet by mouth once daily Pioglitazone 30 mg tablet Active 30 mg PO DAILY July 07, 2024 1:00am Diabetic rOPINIRole 2 mg oral tablet (20 sources) Nonergot Dopamine Agonist Start: 01-18-2025 take [...] 12:00am administer 1-3 hours before bedtime Semaglutide (3 sources) Start: 01-18-2025 Semaglutide (Ozempic) 0.25 mg or [...] NEEDED as needed for Pain Or Fever 20 5 0 June 06, 2019 June 10, 2019 1:00am June 14, 2019 1:12am Nasal congestion Start: 06-06-2019 End: 06-14-2019 take 1 tablet by mouth every six hours as needed Oxycodone-Acetaminophen Discontinued 1 TABLET PO EVERY 6 HOURS NEEDED 20 5 June 06, 2019 June 14, 2019 1:12am atorvastatin 40 mg oral tablet (20 sources) HMG-CoA Reductase Inhibitor Start: 03-16-2022 End: 03-17-2022 take 1 tablet by mouth at bedtime Atorvastatin 40 mg tablet Discontinued 40 mg PO AT BEDTIME 3 March 16, 2022 12:00am March 17, 2022 3:26pm cariprazine 1.5 mg oral capsule (10 sources) Atypical Antipsychotic Start: 11-05-2023 End: 01-18-2024 take 1 capsule by mouth once daily Cariprazine (Vraylar) 1.5 mg capsule Discontinued 1.5 mg PO DAILY November 05, 2023 12:00am January 18, 2024 1:12pm clonazePAM 0.5 mg oral tablet (10 sources) Benzodiazepine Start: 11-05-2023 End: 01-18-2024 Clonazepam (Klonopin) 0.5 mg tablet Discontinued 0.5 mg PO DAILY November 05, 2023 12:00am January 18, 2024 1:12pm x 4 days then 1mg dapagliflozin 10 mg oral tablet (7 sources) Sodium-Glucose Cotransporter 2 Inhibitor Start: 07-07-2024 [...] by mouth. LORazepam 1 mg oral tablet (9 sources) Benzodiazepine Start: 11-06-2023 End: 07-07-2024 take [...] in evening. OLANZapine 10 mg oral tablet (7 sources) Atypical Antipsychotic Start: 01-18-20 End: 07-07-19 Olanzapine 10 mg tablet Discontinued 10 mg PO January 18, 2024 12:00am July 07, 2024 12:33pm omeprazole 40 mg delayed release oral capsule (5 sources) Proton Pump Inhibitor Start: 03-31-20 End: 06-29-19 take 1 capsule by mouth once daily omeprazole (PRILOSEC) 40 mg capsule Indications: Nausea , Weight loss Take 1 capsule by mouth once daily. 30 capsule 2 03/31/2022 04/17/2022 Discontinued Comment on above: Take 1 capsule by mo [facility] once daily. promethazine hydrochloride 25 mg oral tablet (19 sources) Phenothiazine Start: 03-31-20 End: 07-08-19 take 1 tablet by mouth three times daily as needed for nausea and vomiting Promethazine 25 mg tablet Discontinued 25 mg PO THREE TIMES A DAY as needed for nausea and vomiting March 31, 2022 12:00am July 08, 2023 2:50pm rosuvastatin calcium 5 mg oral tablet (19 sources) HMG-CoA Reductase Inhibitor Start: 03-17-20 End: [...] Complications of surgical procedures or medical care (8 sources) Drug therapy finding; Translations: [Unspecified adverse effect of drug or medicament, initial encounter] 11-08-2023 Episodic Conditions associated with dizziness or vertigo (20 sources) Severe vertigo, acute onset; Translations: [Dizziness and giddiness] Onset: 08-18-2024 02-17-2021 Episodic Conduction disorders (20 sources) Right bundle branch block; Translations: [Other right bundle-branch block] Onset: 12-06-2020 12-06-2020 Chronic Coronary atherosclerosis and other heart disease (20 sources) Coronary atherosclerosis; Translations: [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] Onset: 08-18-2024 [...] 07-18-2012 07-18-2012 Chronic Fluid and electrolyte disorders (20 sources) Hyponatremia; Translations: [Hypo-osmolality and hyponatremia] Onset: 10-06-2024 Episodic Heart valve disorders (1 source) 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, recurrent, moderate] Chronic Nausea and vomiting (20 sources) Nausea; Translations: [Nausea] Episodic Other acquired [...] of dyspnea; Translations: [Other respiratory abnormalities] Onset: 02-19-2025 Episodic Other lower respiratory disease (11 sources) Dyspnea; Translations: [Shortness of breath] 07-07-2024 [...] screening for lipoid disorders] Onset: 07-19-2024 Episodic Other upper respiratory disease (20 sources) Allergic rhinitis; Translations: [Other allergic rhinitis] 12-22-2005 Chronic Other upper respiratory disease (20 sources) Hypertrophy of nasal turbinates; Translations: [Hypertrophy of nasal turbinates] 03-16-2022 Episodic Other upper respiratory disease (20 sources) Nasal congestion; Translations: [Nasal congestion] 03-16-2022 Episodic Other upper respiratory disease (20 sources) Deviated nasal septum; Translations: [Deviated nasal septum] 03-16-2022 Episodic Pancreatic disorders (not diabetes) (4 sources) Exocrine pancreatic insufficiency; Translations: [Exocrine pancreatic insufficiency] Onset: 10-10-2024 01-18-2025 Episodic Residual codes; unclassified (1 source) 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; Translations: [Insomnia due to medical condition] Chronic Residual codes; unclassified (1 source) Pain; Translations: [Pain, unspecified] Episodic Residual codes; unclassified (20 sources) Altered mental status; Translations: [Altered mental status, unspecified] 02-17-2021 Episodic Residual codes; unclassified (9 sources) Insomnia; Translations: [Insomnia, unspecified] 11-06-2023 Episodic Skull and face fractures (20 sources) Closed fracture of nasal bones; Translations: [Fracture of nasal bones, initial encounter for closed fracture] 03-16-2022 Episodic Spondylosis; intervertebral disc disorders; other back problems (1 source) Lumbar spondylosis; Translations: [Spondylosis without myelopathy or radiculopathy, lumbar region] 06-30-2021 Chronic Syncope (9 sources) Syncope; Translations: [Syncope and collapse] 10-30-2024 Episodic Thyroid disorders (16 sources) Thyroid nodule; Translations: [Nontoxic single thyroid [...] Full details of this procedure given the "procedures" section of this note. Additionally, I have [...] Full details of this procedure given the "procedures" section of this note. Additionally, I have [...] this month was reported by radiology as "normal ultrasound" and found "no suspicious thyroid nodules meeting ACR TI-RADS criteria for follow-up". I differ slightly from this impression after [...] cognitive functions and awareness] Onset: 06-20-2024 Episodic Residual codes; unclassified (20 sources) Other specified health status; Translations: [Other drug allergy] Onset: 07-07-2021 07-07-2021 Episodic Spondylosis; intervertebral disc disorders; other back problems (20 sources) Low back pain; Translations: [Low back pain] Onset: 01-26-2014 01-26-2014 Episodic Results Test Name Value Interpretation Reference Range Facility Absolute lymphocyte countOrd ered By: Lenin Hidalgo on 02-14-2025 Lymphocytes Auto (Unsp spec) [#/Vol] 1.17 10*3/uL 0.83-4.51 [facility] Absolute neutrophil countOrd ered By: Lenin Hidalgo on 02-14-2025 Neutrophils (Bld) [#/Vol] 5.1 10*3/uL 2.0-7.7 [facility] Anion gap in Serum or Plasma Ordered By: Lenin Hidalgo on 02-14-2025 Anion gap [Moles/Vol] 12 mmol/L 11-09 [facility] Automated lymphocyte count a s percentage of total leukocytesOrdered By: Lenin Hidalgo on 02-14-2025 Lymphocytes/100 WBC Auto (Unsp spec) 16.7 % Low 19- [facility] BUN/creatinine ratioOrdered By: Lenin Hidalgo on 02-14-2025 Urea nitrogen/Creatinine [Mass ratio] 17.1 mg/mg 04-16 [facility] Basophil percentageOrdered B y: Lenin Hidalgo on 02-14-2025 Basophils/100 WBC (Bld) 0.4 % 0-1 [facility] Bilirubin, totalOrdered By: Lenin Hidalgo on 02-14-2025 Bilirubin [Mass/Vol] 0.24 mg/dL 0.00-1.30 [facility] CBC W/Diff, Automatedon 01-27 Absolute Lymph 1.17 X10 3/uL Normal 0.83-4.51 [facility] Comment on above: Order Comment: Order Date: 01/18/25 Order Info: 0184-1 - CBCD Performed By: #### L 502.0500, L100.0100, L500.4050 #### [facility] [address] [place], [address] Absolute Neut 5.1 X10 3/uL Normal 2.0-7.7 [facility] Comment on above: Order Comment: Order Date: 01/18/25 Order Info: 0184-1 - CBCD Performed By: #### L 502.0500, L100.0100, [id number] #### [facility] [address] [place], [address] Basophils/100 WBC (Bld) 0.4 % Normal 0-1 [facility] Comment on above: Order Comment: Order Date: 01/18/25 Order Info: 0184-1 - CBCD Performed By: #### L 502.0500, L100.0100, [id number] #### [facility] [address] [place], [address] Eosinophils/100 WBC (Bld) 1.6 % Normal 0-5 [facility] Comment on above: Order Comment: Order Date: 01/18/25 Order Info: 0184-1 - CBCD Performed By: #### L 502.0500, L100.0100, [id number] #### [facility] [address] [place], [address] Erythrocyte distribution width (RBC) [Ratio] 11.9 % Normal 11.6-14.6 [facility] Comment on above: Order Comment: Order Date: 01/18/25 Order Info: 0184-1 - CBCD Performed By: #### L 502.0500, L100.0100, [id number] #### [facility] [address] [place], [address] Hematocrit (Bld) [Volume fraction] 35.1 % Low 40-54 [facility] Comment on above: Order Comment: Order Date: 01/18/25 Order Info: 0184- - CBCD Performed By: #### L 502.0500, L100.0100, [id number] #### [facility] [address] [place], [address] Hemoglobin (Bld) [Mass/Vol] 11.9 g/dL Low 13.0-16.5 [facility] Comment on above: Order Comment: Order Date: 01/18/25 Order Info: [id number] - CBCD Performed By: #### L 502.0500, L100.0100, [id number] #### [facility] [address] [place], [address] IG% 0.300 Normal 0.0-0.9 [facility] Comment on above: Order Comment: Order Date: 01/18/25 Order Info: 0184- - CBCD Result Comment: IG% - Immature Granulocytes (promyelocytes, myelocytes and metamyelocytes) > 1% indicates that a LEFT SHIFT is Present. Performed By: #### L 502.0500, L100.0100, L500.4050 #### [facility] [address] [place], [address] Lymphocytes/100 WBC (Bld) 16.7 % Low 19-41 [facility] Comment on above: Order Comment: Order Date: 01/18/25 Order Info: 0184- - CBCD Performed By: #### L 502.0500, L100.0100, [id number] #### [facility] [address] [place], [address] MCH (RBC) [Entitic mass] 32.2 pg High 27.0-32.0 [facility] Comment on above: Order Comment: Order Date: 01/18/25 Order Info: 0184-1 - CBCD Performed By: #### L 502.0500, L100.0100, [id number] #### [facility] [address] [place], [address] MCHC (RBC) [Mass/Vol] 33.9 g/dL Normal 32-36 [facility] Comment on above: Order Comment: Order Date: 01/18/25 Order Info: 0184-1 - CBCD Performed By: #### L 502.0500, L100.0100, [id number] #### [facility] [address] [place], [address] MCV (RBC) [Entitic vol] 94.9 fL High 80-94 [facility] Comment on above: Order Comment: Order Date: 01/18/25 Order Info: 018- - CBCD Performed By: #### L 502.0500, L100.0100, [id number] #### [facility] [address] [place], [address] Monocytes/100 WBC (Bld) 8.7 % Normal 0-10 [facility] Comment on above: Order Comment: Order Date: 01/18/25 Order Info: 0184-1 - CBCD Performed By: #### L 502.0500, L100.0100, [id number] #### [facility] [address] [place], [address] Neutrophils/100 WBC (Bld) 72.3 % High 47-70 [facility] Comment on above: Order Comment: Order Date: 01/18/25 Order Info: 0184-1 - CBCD Performed By: #### L 502.0500, L100.0100, [id number] #### [facility] [facility] [address] [place], [address] Nucleated RBC (Bld) [#/Vol] 0 10*3/uL Normal 0-5 [facility] Comment on above: Order Comment: Order Date: 01/18/25 Order Info: [id number] - CBCD Performed By: #### L 502.0500, L100.0100, L500.4050 #### [facility] [address] [place], [address] Platelet mean volume (Bld) [Entitic vol] 8.3 fL Normal 6.2-12.0 [facility] Comment on above: Order Comment: Order Date: 01/18/25 Order Info: 0184-1 - CBCD Performed By: #### L 502.0500, L100.0100, L500.4050 #### [facility] [address] [place], [address] Platelets (Bld) [#/Vol] 323 10*3/uL Normal 150-450 [facility] Comment on above: Order Comment: Order Date: 01/18/25 Order Info: 0184-1 - CBCD Performed By: #### L 502.0500, L100.0100, L500.4050 #### [facility] [address] [place], [address] RBC (Bld) [#/Vol] 3.70 10*6/uL Low 4.6-6.2 [facility] Comment on above: Order Comment: Order Date: 01/18/25 Order Info: 0184-1 - CBCD Performed By: #### L 502.0500, L100.0100, L500.4050 #### [facility] [address] [place], [address] RDW SD 41.5 fl Normal 35.1-43.9 [facility] Comment on above: Order Comment: Order Date: 01/18/25 Order Info: 0184-1 - CBCD Performed By: #### L 502.0500, L100.0100, L500.4050 #### [facility] [address] [place], [address] WBC (Bld) [#/Vol] 7.0 10*3/uL Normal 4.4-11.0 [facility] Comment on above: Order Comment: Order Date: 01/18/25 Order Info: 0184-1 - CBCD Performed By: #### L 502.0500, L100.0100, L500.4050 #### [facility] [address] [place], [address] Calculated very low density lipoprotein (VLDL) cholesterol measurementOrdered By: Lenin Hidalgo on 02-14-2025 Calculated very low density lipoprotein (VLDL) cholesterol measurement 16 mg/dL 5-40 [facility] Carbon dioxide, total [Moles /volume] in Central venous bloodOrdered By: Lenin Hidalgo on 02-14-2025 CO2 [Moles/Vol] 24.7 mmol/L 21.0-32.0 [facility] Chloride assayOrdered By: Curtis Hidalgo on 02-14-2025 Chloride [Moles/Vol] 93 mmol/L Low 98-108 [facility] Comprehensive Metabolic Prof ilon 02-14-2025 Albumin [Mass/Vol] 4.3 g/dL Normal 3.4-4.8 [facility] Comment on above: Order Comment: Inter face Comments: standing order Order Date: 06/09/24 Order Info: [id number] - BMP Order Date: 01/18/25 Order Info: [id number] - CMP Order Info: [id number] - LIPID Order Info: [id number] - TSH standing orderstanding order Performed By: #### L 502.0500, L100.0100, L500.4050 #### [facility] [address] [place], [address] Albumin/Globulin [Mass ratio] 1.4 {ratio} Normal 0.9-2.4 [facility] Comment on above: Order Comment: Inter face Comments: standing order Order Date: 06/09/24 Order Info: [id number] - BMP Order Date: 01/18/25 Order Info: [id number] - CMP Order Info: - LIPID Order Info: 3 - TSH standing orderstanding order Performed By: #### L 502.0500, L100.0100, L500.4050 #### [facility] [address] [place], [address] ALK PHOS 62 U/L Normal 40-129 [facility] Comment on above: Order Comment: Inter face Comments: standing order Order Date: 06/09/24 Order Info: 666- - BMP Order Date: 01/18/25 Order Info: [id number] - CMP Order Info: - LIPID Order Info: 3 - TSH standing orderstanding order Performed By: #### L 502.0500, L100.0100, L500.4050 #### [facility] [address] [place], [address] ALT [Catalytic activity/Vol] 15 U/L Normal <=46 [facility] Comment on above: Order Comment: Inter face Comments: standing order Order Date: 06/09/24 Order Info: 666-06 - BMP Order Date: 01/18/25 Order Info: 785-06 - CMP Order Info: - LIPID Order Info: 3 - TSH standing orderstanding order Performed By: #### L 502.0500, L100.0100, L500.4050 #### [facility] [address] [place], [address] AST [Catalytic activity/Vol] 20 U/L Normal <=37 [facility] Comment on above: Order Comment: Inter face Comments: standing order Order Date: 06/09/24 Order Info: 666- - BMP Order Date: 01/18/25 Order Info: 785-06 - CMP Order Info: [id number] - LIPID Order Info: [id number] - TSH standing orderstanding order Result Comment: Hemo lysis present, Results??could be affected. ?? Performed By: #### L 502.0500, L100.0100, L500.4050 #### [facility] [address] [place], [address] Bilirubin [Mass/Vol] 0.24 mg/dL Normal 0.00-1.30 [facility] Comment on above: Order Comment: Inter face Comments: standing order Order Date: 06/09/24 Order Info: 06-1 - BMP Order Date: 01/18/25 Order Info: 86-1 - CMP Order Info: [id number] - LIPID Order Info: [id number] - TSH standing orderstanding order Performed By: #### L 502.0500, L100.0100, L500.4050 #### [facility] [address] [place], [address] BUN/CRE 17.1 RATIO Normal 10-20 [facility] Comment on above: Order Comment: Inter face Comments: standing order Order Date: 06/09/24 Order Info: 666-06 - BMP Order Date: 01/18/25 Order Info: 785- - CMP Order Info: [id number] - LIPID Order Info: [id number] - TSH standing orderstanding order Performed By: #### L 502.0500, L100.0100, L500.4050 #### [facility] [address] [place], [address] Calcium [Mass/Vol] 9.6 mg/dL Normal 7.6-11.0 [facility] Comment on above: Order Comment: Inter face Comments: standing order Order Date: 06/09/24 Order Info: 666- - BMP Order Date: 01/18/25 Order Info: 0786-1 - CMP Order Info: [id number] - LIPID Order Info: [id number] - TSH standing orderstanding order Performed By: #### L 502.0500, L100.0100, L500.4050 #### [facility] [address] [place], [address] Chloride [Moles/Vol] 93 mmol/L Low 98-108 [facility] Comment on above: Order Comment: Inter face Comments: standing order Order Date: 06/09/24 Order Info: 666- - BMP Order Date: 01/18/25 Order Info: 785-1 - CMP Order Info: [id number] - LIPID Order Info: [id number] - TSH standing orderstanding order Performed By: #### L 502.0500, L100.0100, L500.4050 #### [facility] [address] [place], [address] CO2 [Moles/Vol] 24.7 mmol/L Normal 21.0-32.0 [facility] Comment on above: Order Comment: Inter face Comments: standing order Order Date: 06/09/24 Order Info: 666-06 - BMP Order Date: 01/18/25 Order Info: 785- - CMP Order Info: - LIPID Order Info: 3 - TSH standing orderstanding order Performed By: #### L 502.0500, L100.0100, L500.4050 #### [facility] [address] [place], [address] Creatinine [Mass/Vol] 1.23 mg/dL High 0.70-1.20 [facility] Comment on above: Order Comment: Inter face Comments: standing order Order Date: 06/09/24 Order Info: 666-06 - BMP Order Date: 01/18/25 Order Info: 785-06 - CMP Order Info: [id number] - LIPID Order Info: [id number] - TSH standing orderstanding order Performed By: #### L 502.0500, L100.0100, L500.4050 #### [facility] [address] [place], [address] GAP 12 Normal 5-15 [facility] Comment on above: Order Comment: Inter face Comments: standing order Order Date: 06/09/24 Order Info: 666- - BMP Order Date: 01/18/25 Order Info: 785-1 - CMP Order Info: [id number] - LIPID Order Info: [id number] - TSH standing orderstanding order Performed By: #### L 502.0500, L100.0100, L500.4050 #### [facility] [address] [place], [place], [address] GFR/1.73 sq M.predicted among non-blacks MDRD (S/P/Bld) [Vol rate/Area] 62 mL/min/{1.73_m2} Normal >60 [facility] Comment on above: Order Comment: Inter face Comments: standing order Order Date: 06/09/24 Order Info: 666-06 - BMP Order Date: 01/18/25 Order Info: 785- - CMP Order Info: [id number] - LIPID Order Info: [id number] - TSH standing orderstanding order Result Comment: mL/m in/1.73m2 CKD-EPI Creatinine Equation (2020) Performed By: #### L 502.0500, L100.0100, L500.4050 #### [facility] [address] [place], [place], [id number] Globulin (S) [Mass/Vol] 3.1 g/dL Normal 2.2-4.2 [facility] Comment on above: Order Comment: Inter face Comments: standing order Order Date: 06/09/24 Order Info: 666-06 - BMP Order Date: 01/18/25 Order Info: 785-06 - CMP Order Info: [id number] - LIPID Order Info: [id number] - TSH standing orderstanding order Performed By: #### L 502.0500, L100.0100, L500.4050 #### [facility] [address] [place], [address] Glucose [Mass/Vol] 122 mg/dL High 70-99 [facility] Comment on above: Order Comment: Inter face Comments: standing order Order Date: 06/09/24 Order Info: 666-06 - BMP Order Date: 01/18/25 Order Info: 785-06 - CMP Order Info: [id number] - LIPID Order Info: [id number] - TSH standing orderstanding order Performed By: #### L 502.0500, L100.0100, L500.4050 #### [facility] [address] [place], [address] Potassium [Moles/Vol] 4.8 mmol/L Normal 3.3-5.1 [facility] Comment on above: Order Comment: Inter face Comments: standing order Order Date: 06/09/24 Order Info: 666- - BMP Order Date: 01/18/25 Order Info: 785-1 - CMP Order Info: [id number] - LIPID Order Info: [id number] - TSH standing orderstanding order Result Comment: Hemo lysis present, Results??could be affected. ?? Performed By: #### L 502.0500, L100.0100, L500.4050 #### [facility] [address] [place], [address] Sodium [Moles/Vol] 130 mmol/L Low 133-145 [facility] Comment on above: Order Comment: Inter face Comments: standing order Order Date: 06/09/24 Order Info: 666-06 - BMP Order Date: 01/18/25 Order Info: 785- - CMP Order Info: [id number] - LIPID Order Info: 6-3 - TSH standing orderstanding order Performed By: #### L 502.0500, L100.0100, L500.4050 #### [facility] [address] [place], [address] T PROT 7.4 g/dL Normal 5.9-8.4 [facility] Comment on above: Order Comment: Inter face Comments: standing order Order Date: 06/09/24 Order Info: 666-06 - BMP Order Date: 01/18/25 Order Info: 785-1 - CMP Order Info: [id number] - LIPID Order Info: 6-3 - TSH standing orderstanding order Performed By: #### L 502.0500, L100.0100, L500.4050 #### [facility] [address] [place], [address] Urea nitrogen [Mass/Vol] 21 mg/dL High 4-19 [facility] Comment on above: Order Comment: Inter face Comments: standing order Order Date: 06/09/24 Order Info: 0667-1 - BMP Order Date: 01/18/25 Order Info: 0786-1 - CMP Order Info: [id number] - LIPID Order Info: [id number] - TSH standing orderstanding order Performed By: #### L 502.0500, L100.0100, L500.4050 #### [facility] [address] [place], [place], [address] Eosinophil percentageOrdered By: Lenin Hidalgo on 02-14-2025 Eosinophils/100 WBC (Bld) 1.6 % 0-5 [facility] Erythrocyte distribution wid th ratioOrdered By: Lenin Hidalgo on 02-14-2025 Erythrocyte distribution width (RBC) [Ratio] 11.9 % 11.6-14.6 [facility] Erythrocyte distribution wid th standard deviationOrdered By: Lenin Hidalgo on 02-14-2025 Erythrocyte distribution width (RBC) [Ratio] 41.5 fl 35.1-43.9 [facility] Glomerular filtration rate ( GFR) estimation/1.73 sq m using serum, plasma, or whole bOrdered By: Lenin Hidalgo on 02-14-2025 GFR/1.73 sq M.predicted among non-blacks MDRD (S/P/Bld) [Vol rate/Area] 62 mL/min/{1.73_m2} >60 [facility] Comment on above: mL/min/1.73m2 CKD-EP I Creatinine Equation (2020) Hematocrit Auto (Bld) [Volum e fraction]Ordered By: Lenin Hidalgo on 02-14-2025 Hematocrit (Bld) [Volume fraction] 35.1 % Low 40-54 [facility] Hemoglobin A1con 02-14-2025 HbA1c (Bld) [Mass fraction] 6.0 % High <=5.6 [facility] Comment on above: Order Comment: Order Date: 11/16/24 Order Info: [id number] - A1C Result Comment: Norm al < 5.7 % Prediabetic 5.7 - 6.4 % Diabetic >or= 6.5 % Please note range changes. Performed By: #### L 501.9985, L500.4100, L501.9520 #### [facility] [address] [place], [place], [address] Hemoglobin A1c percentageOrd ered By: Lenin Hidalgo on 02-14-2025 HbA1c (Bld) [Mass fraction] 6.0 % High <5.7 [facility] Comment on above: Normal < 5.7 % Predi abetic 5.7 - 6.4 % Diabetic >or= 6.5 % Please note range changes. Hemoglobin measurementOrdere d By: Lenin Hidalgo on 02-14-2025 Hemoglobin (Bld) [Mass/Vol] 11.9 g/dL Low 13.0-16.5 [facility] Immature granulocytes/100 WB C Auto (Bld)Ordered By: Lenin Hidalgo on 02-14-2025 Immature granulocytes/100 WBC (Bld) 0.300 % 0.0-0.9 [facility] Comment on above: IG% - Immature Granu locytes (promyelocytes, myelocytes and metamyelocytes) > 1% indicates that a LEFT SHIFT is Present. LDL calc ser/plasOrdered By: Lenin Hidalgo on 02-14-2025 Cholesterol in LDL [Mass/Vol] 86 mg/dL [facility] Comment on above: Tidlakyulq=419-950 m g/dL & Higher Qyqa=140 mg/dL or greaterFriedwald Equation for LDL-C Laboratory - Chemistry and C hemistry - challengeOrdered By: Lenin Hidalgo on 02-14-2025 AST [Catalytic activity/Vol] 20 U/L <38 [facility] Comment on above: Hemolysis present, R esults could be affected. Lipid Profileon 02-14-2025 CHOL:HDL 2.50 Normal [facility] Comment on above: Order Comment: Inter face Comments: standing order Order Date: 06/09/24 Order Info: 0667-1 - BMP Order Date: 01/18/25 Order Info: 0786-1 - CMP Order Info: [id number] - LIPID Order Info: [id number] - TSH Performed By: #### L 501.9985, L500.4100, L501.9520 #### [facility] [address] [place], [place], [address] Cholesterol [Mass/Vol] 169 mg/dL Normal <=200 [facility] Comment on above: Order Comment: Inter face Comments: standing order Order Date: 06/09/24 Order Info: 666-06 - BMP Order Date: 01/18/25 Order Info: 785-06 - CMP Order Info: [id number] - LIPID Order Info: 301-3 - TSH Result Comment: Chol esterol level, Desirable <200 mg/dL Borderline high cholesterol 200-239 mg/dL High cholesterol >=240 mg/dL Recommendations of the NCEP Adult Treatment Panel for the following risk-cutoff thresholds for the [place] population. Performed By: #### L 501.9985, L500.4100, L501.9520 #### [facility] [address] [place], [place], [id number] Cholesterol in HDL [Mass/Vol] 68 mg/dL Normal [facility] Comment on above: Order Comment: Inter face Comments: standing order Order Date: 06/09/24 Order Info: 666-06 - BMP Order Date: 01/18/25 Order Info: 785-06 - CMP Order Info: - LIPID Order Info: 3 - TSH Result Comment: [place] onal Cholesterol Education Program (NCEP) guidelines: <40 mg/dL: Low HDL-cholesterol (major risk factor for CHD) >= 60 mg/dL: High HDL-cholesterol (negative risk factor for CHD) HDL-cholesterol is affected by a number of factors, e.g. smoking, exercise, hormones, sex and age. Performed By: #### L 501.9985, L500.4100, L501.9520 #### [facility] [address] [place], [address] Cholesterol in LDL [Mass/Vol] 86 mg/dL Normal [facility] Comment on above: Order Comment: Inter face Comments: standing order Order Date: 06/09/24 Order Info: 666-06 - BMP Order Date: 01/18/25 Order Info: 785- - CMP Order Info: [id number] - LIPID Order Info: [id number] - TSH Result Comment: Bord iyzfly=345-972 mg/dL Higher Foga=321 mg/dL or greater Friedwald Equation for LDL-C Performed By: #### L 501.9985, L500.4100, L501.9520 #### [facility] [address] [place], [place], [address] Cholesterol in VLDL [Mass/Vol] 16 mg/dL Normal 5-40 [facility] Comment on above: Order Comment: Inter face Comments: standing order Order Date: 06/09/24 Order Info: 0667-1 - BMP Order Date: 01/18/25 Order Info: 0786-1 - CMP Order Info: [id number] - LIPID Order Info: [id number] - TSH Performed By: #### L 501.9985, L500.4100, L501.9520 #### [facility] [address] [place], [place], [id number] Triglyceride [Mass/Vol] 79 mg/dL Normal [facility] Comment on above: Order Comment: Inter face Comments: standing order Order Date: 06/09/24 Order Info: 0667-1 - BMP Order Date: 01/18/25 Order Info: 0786-1 - CMP Order Info: [id number] - LIPID Order Info: [id number] - TSH Result Comment: The drugs N-Acetylcysteine and Metamizole may falsely depress this assay. Normal range: <150 mg/dL Borderline High: 150-199 mg/dL High: 200-499 mg/dL Very High: >500 mg/dL Performed By: #### L 501.9985, L500.4100, L501.9520 #### [facility] [address] [place], [place], [id number] MCV (mean corpuscular volume ) determinationOrdered By: Lenin Hidalgo on 02-14-2025 MCV (RBC) [Entitic vol] 94.9 fL High 80-94 [facility] Mean corpuscular hemoglobin (MCH) determinationOrdered By: Lenin Hidalgo on 02-14-2025 MCH (RBC) [Entitic mass] 32.2 pg High 27.0-32.0 [facility] Mean corpuscular hemoglobin concentration (MCHC) determinationOrdered By: Lenin Hidalgo on 02-14-2025 MCHC (RBC) [Mass/Vol] 33.9 g/dL 32-36 [facility] Mean platelet volume determi nationOrdered By: Lenin Hidalgo on 02-14-2025 Platelet mean volume (Bld) [Entitic vol] 8.3 fL 6.2-12.0 [facility] Microalbumin,Random Urineon 02-14-2025 MICROALBUMIN,UR 31.2 mg/L Normal <20 mg/L [facility] Comment on above: Order Comment: Order Date: 04/14/24 Order Info: 0667-1 - BMP Performed By: #### L 500.2500 #### [facility] [address] [place], [address] Monocyte percentageOrdered B y: Lenin Hidalgo on 02-14-2025 Monocytes/100 WBC (Bld) 8.7 % 0-10 [facility] Neutrophil percentageOrdered By: Lenin Hidalgo on 02-14-2025 Neutrophils/100 WBC (Bld) 72.3 % High 47-70 [facility] Nucleated red blood cell per centageOrdered By: Lenin Hidalgo on 02-14-2025 Nucleated RBC/100 WBC (Bld) [Ratio] 0 % 0-5 [facility] Platelet countOrdered By: Curtis Hidalgo on 02-14-2025 Platelets (Bld) [#/Vol] 323 10*3/uL 150-450 [facility] Potassium measurement (mass/ volume)Ordered By: Lenin Hidalgo on 02-14-2025 Potassium (Unsp spec) [Mass/Vol] 4.8 mmol/L 3.3-5.1 [facility] Comment on above: Hemolysis present, R esults could be affected. RBC Auto (Bld) [#/Vol]Ordere d By: Lenin Hidalgo on 02-14-2025 RBC (Bld) [#/Vol] 3.70 10*6/uL Low 4.6-6.2 [facility] Screening total cholesterol/ high density lipoprotein (HDL) cholesterol ratioOrdered By: Lenin Hidalgo on 02-14-2025 Cholesterol.total/Anastasiia sterol in HDL [Mass ratio] 2.50 {ratio} [facility] Serum creatinine measurement (mass/volume)Ordered By: Lenin Hidalgo on 02-14-2025 Creatinine [Mass/Vol] 1.23 mg/dL High 0.70-1.20 [facility] Serum globulin measurementOr dered By: Lenin Hidalgo on 02-14-2025 Globulin (S) [Mass/Vol] 3.1 g/dL 2.2-4.2 [facility] Serum glucose measurement (m ass/volume)Ordered By: Lenin Hidalgo on 02-14-2025 Glucose [Mass/Vol] 122 mg/dL High 70-99 [facility] Serum or plasma alanine pringle otransferase (ALT) measurementOrdered By: Lenin Hidalgo on 02-14-2025 ALT [Catalytic activity/Vol] 15 U/L <47 [facility] Serum or plasma albumin kay urement (mass/volume)Ordered By: Lenin Hidalgo on 02-14-2025 Albumin [Mass/Vol] 4.3 g/dL 3.4-4.8 [facility] Serum or plasma albumin/glob ulin mass ratioOrdered By: Lenin Hidalgo on 02-14-2025 Albumin/Globulin [Mass ratio] 1.4 {ratio} 0.9-2.4 [facility] Serum or plasma alkaline ranjana sphatase measurementOrdered By: Lenin Hidalgo on 02-14-2025 ALP [Catalytic activity/Vol] 62 U/L 40-129 [facility] Serum or plasma calcium kay urement (mass/volume)Ordered By: Lenin Hidalgo on 02-14-2025 Calcium [Mass/Vol] 9.6 mg/dL 7.6-11.0 [facility] Serum or plasma cholesterol in HDL measurement (mass/volume)Ordered By: Lenin Hidalgo on 02-14-2025 Cholesterol in HDL [Mass/Vol] 68 mg/dL >40 [facility] Comment on above: National Cholesterol Education Program (NCEP) guidelines:<40 mg/dL: Low HDL-cholesterol (major risk factor for CHD)>= 60 mg/dL: High HDL-cholesterol (negative risk factor for CHD)HDL-cholesterol is affected by a number of factors, e.g. smoking, exercise, hormones, sex and age. Serum or plasma cholesterol measurement (mass/volume)Ordered By: Lenin Hidalgo on 02-14-2025 Cholesterol [Mass/Vol] 169 mg/dL <201 [facility] Comment on above: Cholesterol level, D esirable <200 mg/dLBorderline high cholesterol 200-239 mg/dLHigh cholesterol >=240 mg/dLRecommendations of the NCEP Adult Treatment Panel for the following risk-cutoff thresholds for the [place] population. Serum or plasma urea nitroge n measurement (mass/volume)Ordered By: Lenin Hidalgo on 02-14-2025 Urea nitrogen [Mass/Vol] 21 mg/dL High 4-19 [facility] Sodium levelOrdered By: Lenin Hidalgo on 02-14-2025 Sodium [Moles/Vol] 130 mmol/L Low 133-145 [facility] TSH DL <= 0.005 mIU/L QnOrde red By: Lenin Hidalgo on 02-14-2025 TSH Qn 0.223 uIU/mL Low 0.300-4.20 0 [facility] Thyroid Stim Hormone (TSH)on 02-14-2025 TSH 0.223 uIU/mL Low 0.300-4.20 0 [facility] Comment on above: Order Comment: Inter face Comments: standing order Order Date: 06/09/24 Order Info: [id number] - BMP Order Date: 01/18/25 Order Info: [id number] - CMP Order Info: [id number] - LIPID Order Info: [id number] - TSH Performed By: #### L 501.9985, L500.4100, L501.9520 #### [facility] [address] [place] [address]. [place], [address] Total proteinOrdered By: Selma Hidalgo on 02-14-2025 Protein [Mass/Vol] 7.4 g/dL 5.9-8.4 [facility] Triglycerides measurementOrd ered By: Lenin Hidalgo on 02-14-2025 Triglyceride [Mass/Vol] 79 mg/dL <199 [facility] Comment on above: The drugs N-Acetylcy steine and Metamizole may falsely depress this assay. Normal range: <150 mg/dLBorderline High: 150-199 mg/dLHigh: 200-499 mg/dLVery High: >500 mg/dL Urine albumin measurement [facility] detection limit of 20 mg/L or less (mass/volume)Ordered By: Lenin Hiadlgo on 02-14-2025 Albumin DL <= 20 mg/L (U) [Mass/Vol] 31.2 mg/L <20 mg/L [facility] White blood cell (WBC) count Ordered By: Lenin Hidalgo on 02-14-2025 WBC (Bld) [#/Vol] 7.0 10*3/uL 4.4-11.0 [facility] [facility] stress test r eportOrdered By: Trenton Gerard on 01-24-2025 Study report [facility] Cardiovascular Services [address] [place] [address] MR#: [id number] Acct: [id number] Name: OSMAN PADGETT Rep #: [id number] : 1950 75 From: Trenton Gerard MD Primary Care: Dr. Lenin Hidalgo MD Status: REG CLI Referring Dr: Asia Qureshi OPERATIONS DIRECTOR OPERATIONS DIRECTOR-C Sex: M C Stress Test Report Exercise myocardial perfusion stress test. 75-year-old male with a history of dyspnea Stress protocol: Resting EKG demonstrates normal sinus rhythm with a right bundle branch block and a rate of 72 bpm resting blood pressure is 118/70 mmHg. The patient exercised according to the regular [facility] protocol for a total duration of 6-1/2 minutes attaining a maximum heart rate of 134 bpm which was 91% of maximum predicted heart rate; the maximum workload was 8.5 metabolic equivalents. At rest there were no ST or T wave changes noted to suggest ischemia and at peak exercise upsloping ST changes only were noted which did not meet the criteria for ischemia. No clinical angina was noted the test was terminated due to the target heart rate being achieved/fatigue. The peak blood pressure was 148/70 mmHg. Rate-pressure product was 18,000. Myocardial perfusion protocol. 14.5 mCi of technetium 99m sestamibi was injected at rest. The patient exercised according to regular [facility] protocol for total duration of 6-1/2 minutes and at peak exercise 44.1 mCi of technetium 99m sestamibi was injected stress images were obtained stress and rest images were reconstructed in comparing the short axis vertical long and horizontal long axis. Perfusion SPECT analysis: Review of the stress images demonstrate normal uptake of tracer noted in all areas of the myocardium. The resting images similarly demonstrate normal uptakeof tracer noted in all areas of the myocardium. No areas of reversibility are noted to suggest ischemia no previous infarct was noted. Conclusion: Normal exercise myocardial perfusion stress test at a moderate workload Preserved ejection fraction. 01/24/25 153 Date _ Trenton Gerard MD CC: OPERATIONS DIRECTOR-C Asia Qureshi; Dr. Lenin Hidalgo MD ~ Date Dictated: 01/24/251531 Date Transcribed: 01/24/251531 Seo Intern: CO Signed [facility] Work Phone: Stress Reporton 01-24-2025 Stress Report [facility] Cardiovascular Services [address] [place] [address] MR#: [id number] Acct: [id number] Name: OSMAN PADGETT Rep #: [id number] : 1950 75 From: Trenton Gerard MD Primary Care: Dr. Lenin Hidalgo MD Status: R EG CLI Referring Dr: Asia Qureshi NP OPERATIONS DIRECTOR-C Sex: M C Stress Test Report Exercise myocardial perfusion stress test. 75-year-old male with a history of dyspnea Stress protocol: Resting EKG demonstrates normal sinus rhythm with a right bundle branch block and a rate of 72 bpm resting blood pressure is 118/70 mmHg. The patient exercised according to the regular [facility] protocol for a total duration of 6-1/2 minutes attaining a maximum heart rate of 134 bpm which was 91% of maximum predicted heart rate; the maximum workload was 8.5 metabolic equivalents. At rest there were no ST or T wave changes noted to suggest ischemia and at peak exercise upsloping ST changes only were noted which did not meet the criteria for ischemia. No clinical angina was noted the test was terminated due to the target heart rate being achieved/fatigue. The peak blood pressure was 148/70 mmHg. Rate-pressure product was 18,000. Myocardial perfusion protocol. 14.5 mCi of technetium 99m sestamibi was injected at rest. The patient exercised according to regular [facility] protocol for total duration of 6-1/2 minutes and at peak exercise 44.1 mCi of technetium 99m sestamibi was injected stress images were obtained stress and rest images were reconstructed in comparing the short axis vertical long and horizontal long axis. Perfusion SPECT analysis: Review of the stress images demonstrate normal uptake of tracer noted in all areas of the myocardium. The resting images similarly demonstrate normal uptake of tracer noted in all areas of the myocardium. No areas of reversibility are noted to suggest ischemia no previous infarct was noted. Conclusion: Normal exercise myocardial perfusion stress test at a moderate workload Preserved ejection fraction. 01/24/25 1535 Date Trenton Gerard MD CC: LYNN Qureshi; Dr. Lenin Hidalgo MD Date Dictated: 01/24/251531 Date Transcribed: 01/24/251531 Seo Intern: CO Signed Normal [facility] Cardiology Visit Reporton Cardiology Visit Report [facility] 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: No Accompanied by: Is patient in pain?: No Allergies Thiazides Allergy (Severe, Verified 01/18/25 09:31) Other diphenhydramine (From Benadryl) Allergy (Intermediate, Verified 01/18/25 09:31) Other Penicillins Allergy (Intermediate, Verified 01/18/25 09:31) Rash Ogxxrlv-SYZ-EoA Reductase Inhibitor Allergy (Intermediate, Verified 01/18/25 09:31) [...] tab PO QDAY 01/18/25 01/18/25 Hi story vptvxq-bzcpfiwt-stnmfjo cap PO TID 01/18/25 01/18/25 Histo ry 36,000-114,000-180,000 unit capsule,delay rel (Creon) lisinopril 2.5 mg tablet 2.5 mg PO QHS 01/18/25 01/18/25 Hi story ropinirole 2 mg tablet 4 mg PO QHS 01/18/25 01/18/25 Hist ory semaglutide 0.25 mg or 0.5 mg (2 0.5 mg subcut QWEEK 01/18/2501/18 History mg/3 mL) alcantara (more content not included)... Normal [facility] Cardiology Visit Reporton Cardiology Visit Report [facility] 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 Accompanied by: Is patient in pain?: No Allergies Thiazides Allergy (Severe, Verified 10/27/24 11:16) Other diphenhydramine (From Benadryl) Allergy (Intermediate, Verified 10/27/24 11:16) Other Penicillins Allergy (Intermediate, Verified 10/27/24 11:16) Rash Larlqvv-SSJ-KjX Reductase Inhibitor Allergy (Intermediate, Verified 10/27/24 11:16) [...] PO DAILY Diabetic 07/07/24 0 10/27/24 History xlvyik-hijrepdz-mmsqpau cap PO TID 10/27/24 10/27/24 Histo ry 36,000-114,000-180,000 unit capsule,delay rel (Creon) Ejection fraction %: 65 Have you fallen in the past year?: Yes [facility] Medical History Chronic kidney disease (CKD) Abnormal stress test Nasal turbinate hypertrophy Closed fracture nasal bone Acquired nasal deformity Nasal septal deviation Nasal congestion Type 2 diabetes mellitus Right bundle branch block History of basal cell carcinoma Allergic rhinitis due to other allergen Spondylolisthesis Erectile dysfunction Essential hypertension Pure hypercholes (more content not included)... Normal [facility] Surgery Visit Reporton 10-16 Surgery Visit Report [facility] [address] [place] [address] OFFICE VISIT Date of Service: 10/16/24 MR#: [id number] Acct: [id number] Name: OSMAN PADGETT Rep #: [id number] : 1950 Provider: Dr. Miguel ramirez MD Age/Sex: 74/M Location: [facility] Status: Signed Intake Vital Signs 07/07/24 11:28 Height 6 ft Intake Visit Reasons: RECALL THYROID Chief Complaint: recall thyroid Is patient in pain?: No Allergies Thiazides Allergy (Severe, Verified 10/16/24 13:09) Other diphenhydramine (From Benadryl) Allergy (Intermediate, Verified 10/16/24 13:09) Other Penicillins Allergy (Intermediate, Verified 10/16/24 13:09) Rash Twlwhjx-PDL-TyS Reductase Inhibitor Allergy (Intermediate, Verified 10/16/24 13:09) [...] encounter as he had a lot of "mental issues" going on at that time that were [...] cm. Radiology's impression was that of a "normal thyroid ultrasound". They stated that there were "no suspicious thyroid nodules meeting ACR TI-RADS criteria for follow-up". Below is recapitulated from patient consultation visit for ease of review: Patient is a 73-year-old male who presents for evaluation of a thyroid nodule. They are referred for surgical consultation from Dr. Hidalgo. He presents to today's consultation visit with his . This (more content not included)... Normal [facility] Abdomen Limitedon 10-05-2024 Abdomen Limited [facility] Imaging Services [address] [place] [address] Abdomen Limited MR#: [id number] Acct: [id number] Name: DAYRONOSMAN RONDON Rep #: [id number] : 1950 M 74 From: Rodrigue Chanel i DO PCP: Dr. Lenin Hidalgo MD Status: REG CLI Study: Abdomen Limited Date of Exam: 10/05/24 Exam# [id number] Ordering Dr: Lenin Hidalgo MD PROCEDURE: Abdominal [...] of the examination is unremarkable. Reading Location: [facility] CC: Dr. Lenin Hidalgo MD Seo Intern: Signed Normal [facility] Albumin DL <= 20 mg/L (U) [M ass/Vol]Ordered By: Lenin Hidalgo on 10-05-2024 Urine Random Microalbumin < 12.0 mg/L NO RANGE EST. [facility] Creatinine Unsp time (U) [Ma ss/Vol]Ordered By: Lenin Hidalgo on 10-05-2024 Creatinine (U) [Mass/Vol] 72.60 mg/dL 39.00-259. 00 [facility] Microalb:Creat Ratio,Random URon 10-05-2024 Creatinine [Mass/Vol] 72.60 mg/dL Normal 39.00- 259. 00 [facility] Comment on above: Performed By: #### L 502.0250 #### [facility] Laboratory [address] [place], [address] MALB:CREAT UNABLE TO CALCULATE Normal [facility] Comment on above: Performed By: #### L 502.0250 #### [facility] [address] [place], [address] MICROALBUMIN,UR < 12.0 Normal NO RANGE EST. [facility] Comment on above: Performed By: #### L 502.0250 #### [facility] [address] [place], [address] Microalbumin/creat ratio urO rdered By: Lenin Hidalgo on 10-05-2024 Urine Microalbumin/Creatinine Ratio UNABLE TO CALCULATE mg/g CRE [facility] Urine microalbumin/creatinine ratio measurement UNABLE TO CALCULATE mg/g CRE [facility] Random urine creatinine kay urement (mass/volume)Ordered By: Lenin Hidalgo on 10-05-2024 Creatinine Unsp time (U) [Mass/Vol] 72.60 mg/dL 39.00-259. 00 [facility] Thyroidon 10-05-2024 Thyroid [facility] Imaging Services [address] [place], [place] [address] Thyroid MR#: [id number] Acct: [id number] Name: OSMAN PADGETT Rep #: [id number] : 1950 M 74 From: uSmi Hagan nd, MD PCP: Dr. Lenin Hidalgo MD Status: REG CLI Study: Thyroid Date of Exam: 10/05/24 Exam# [id number] Ordering Dr: Miguel Kirby MD PROCEDURE: THYROID [...] TI-RADS criteria for follow- up. Reading Location: [facility] CC: Dr. Lenin Hidalgo MD; Dr. Miguel Kirby MD Seo Intern: Signed Normal [facility] Urine albumin measurement [facility] detection limit of 20 mg/L or less (mass/volume)Ordered By: Lenin Hidalgo on 10-05-2024 Albumin DL <= 20 mg/L (U) [Mass/Vol] < 12.0 mg/L NO RANGE EST. [facility] Rubeola IgG Abon 10-04-2024 RUBEOLA Ab, IgG > 300.0 Normal Immune >16.4 [facility] Comment on above: Order Comment: Order Date: 10/02/24Order Info: [id number] - RUBEOG Result Comment: Nega tive <13.5 Equivocal 13.5 - 16.4 Positive >16.4 Presence of antibodies to Rubeola is presumptive evidence of immunity except when acute infection is suspected. Performed at: [facility] [address] [id number] Job Foreman: Bonifacio De Jesus PhD, Phone: [phone] Performed By: #### L 500.4050, L100.0100 #### [facility] [address] [place], [address] Vitamin D,25 Hydroxyon 10-03 Vitamin D 25-OH 54.1 ng/mL Normal 30-100 [facility] Comment on above: Order Comment: Order Date: 04/14/24 Order Info: [id number] - BMP Result Comment: Magdalene min D Status Deficiency: <20 ng/mL (50nmol/L) Insufficiency: 20-30 ng/mL (50-75 nmol/L) Sufficiency: 30-100 ng/mL (75-250 nmol/L) Toxicity: >100 ng/mL (>250 nmol/L) Performed By: #### L 500.2500 #### [facility] [address] [place], [place], [address] Anion gap in Serum or Plasma Ordered By: Lenin Hidalgo on 10-02-2024 Anion gap [Moles/Vol] 14 mmol/L 5-15 [facility] BUN/creatinine ratioOrdered By: Lenin Hidalgo on 04-07-2025 Urea nitrogen/Creatinine [Mass ratio] 15.9 mg/mg 10-20 [facility] Bilirubin, totalOrdered By: Lenin Hidalgo on 10-02-2024 Bilirubin [Mass/Vol] 0.24 mg/dL 0.00-1.30 [facility] Carbon dioxide, total [Moles /volume] in Central venous bloodOrdered By: Lenin Hidalgo on 10-02-2024 CO2 [Moles/Vol] 22.8 mmol/L 21.0-32.0 [facility] Chloride assayOrdered By: Curtis Hidalgo on 10-02-2024 Chloride [Moles/Vol] 98 mmol/L 98-108 [facility] Comprehensive Metabolic Prof ilon 10-02-2024 Albumin [Mass/Vol] 4.1 g/dL Normal 3.4-4.8 [facility] Comment on above: Performed By: #### L 500.2500 #### [facility] [address] [place], [address] Albumin/Globulin [Mass ratio] 1.4 {ratio} Normal 0.9-2.4 [facility] Comment on above: Performed By: #### L 500.2500 #### [facility] [address] [place], [address] ALK PHOS 46 U/L Normal 40-129 [facility] Comment on above: Performed By: #### L 500.2500 #### [facility] [address] [place], [address] ALT [Catalytic activity/Vol] 17 U/L Normal <=46 [facility] Comment on above: Performed By: #### L 500.2500 #### [facility] [address] [place], [address] AST [Catalytic activity/Vol] 18 U/L Normal <=37 [facility] Comment on above: Performed By: #### L 500.2500 #### [facility] [address] [place], [address] Bilirubin [Mass/Vol] 0.24 mg/dL Normal 0.00-1.30 [facility] Comment on above: Performed By: #### L 500.2500 #### [facility] [address] [place], [address] BUN/CRE 15.9 RATIO Normal 10-20 [facility] Comment on above: Performed By: #### L 500.2500 #### [facility] [address] [place], [address] Calcium [Mass/Vol] 9.4 mg/dL Normal 7.6-11.0 [facility] Comment on above: Performed By: #### L 500.2500 #### [facility] [address] [place], [address] Chloride [Moles/Vol] 98 mmol/L Normal 98-108 [facility] Comment on above: Performed By: #### L 500.2500 #### [facility] [address] [place], [address] CO2 [Moles/Vol] 22.8 mmol/L Normal 21.0-32.0 [facility] Comment on above: Performed By: #### L 500.2500 #### [facility] [address] [place], [address] Creatinine [Mass/Vol] 1.38 mg/dL High 0.70-1.20 [facility] Comment on above: Performed By: #### L 500.2500 #### [facility] [address] [place], [address] GAP 14 Normal 5-15 [facility] Comment on above: Performed By: #### L 500.2500 #### [facility] [address] [place], [address] GFR/1.73 sq M.predicted among non-blacks MDRD (S/P/Bld) [Vol rate/Area] 54 mL/min/{1.73_m2} Low >60 [facility] Comment on above: Result Comment: mL/m in/1.73m2 CKD-EPI Creatinine Equation (2020) Performed By: #### L 500.2500 #### [facility] [address] [place], [address] Globulin (S) [Mass/Vol] 2.9 g/dL Normal 2.2-4.2 [facility] Comment on above: Performed By: #### L 500.2500 #### [facility] [address] [place], [address] Glucose [Mass/Vol] 185 mg/dL High 70-99 [facility] Comment on above: Performed By: #### L 500.2500 #### [facility] [address] [place], [address] Potassium [Moles/Vol] 4.0 mmol/L Normal 3.3-5.1 [facility] Comment on above: Performed By: #### L 500.2500 #### [facility] [address] [place], [address] Sodium [Moles/Vol] 134 mmol/L Normal 133-145 [facility] Comment on above: Performed By: #### L 500.2500 #### [facility] [address] [place], [address] T PROT 7.0 g/dL Normal 5.9-8.4 [facility] Comment on above: Performed By: #### L 500.2500 #### [facility] [address] [place], [address] Urea nitrogen [Mass/Vol] 22 mg/dL High 4-19 [facility] Comment on above: Performed By: #### L 500.2500 #### [facility] [address] [place], [address] GFR/1.73 sq M.predicted paul g non-blacks MDRD (S/P/Bld) [Vol rate/Area]Ordered By: Lenin Hidalgo on 10-02-2024 Estimated GFR (MDRD) Non-Af Amer 54 Low >60 [facility] Comment on above: mL/min/1.73m2 CKD-EP I Creatinine Equation (2020) Glomerular filtration rate ( GFR) estimation/1.73 sq m using serum, plasma, or whole bOrdered By: Lenin Hidalgo on 10-02-2024 GFR/1.73 sq M.predicted among non-blacks MDRD (S/P/Bld) [Vol rate/Area] 54 mL/min/{1.73_m2} Low >60 [facility] Comment on above: mL/min/1.73m2 CKD-EP I Creatinine Equation (2020) Laboratory - Chemistry and C hemistry - challengeOrdered By: Lenin Hidalgo on 10-02-2024 AST [Catalytic activity/Vol] 18 U/L <38 [facility] Lipaseon 10-02-2024 Lipase [Catalytic activity/Vol] 18 U/L Normal 13-75 [facility] Comment on above: Result Comment: To tesfaye note: LIPASE revised reference range effective 22. New Lipase methodology. Expected to produce lower values than the previous assay method. NEW Reference Range: 13 - 75 U/L Performed By: #### L 500.2500 #### [facility] [address] [place], [place], [address] Lipase measurementOrdered By : Lenin Hidalgo on 10-02-2024 Lipase [Catalytic activity/Vol] 18 U/L 13-75 [facility] Comment on above: Please note:LIPASE r evised reference range effective 22. New Lipase methodology. Expected to produce lower values than the previous assay method. NEW Reference Range: 13 - 75 U/L Magnesiumon 10-02-2024 Magnesium [Mass/Vol] 1.6 mg/dL Normal 1.5-2.2 [facility] Comment on above: Performed By: #### L 500.2500 #### [facility] [address] [place], [address] Magnesium (Unsp spec) [Mass/ Vol]Ordered By: Lenin Hidalgo on 10-02-2024 Magnesium [Mass/Vol] 1.6 mg/dL 1.5-2.2 [facility] Magnesium measurement (mass/ volume)Ordered By: Lenin Hidalgo on 10-02-2024 Magnesium (Unsp spec) [Mass/Vol] 1.6 mg/dL 1.5-2.2 [facility] MeV IgG IA Qn (S)Ordered By: Lenin Hidalgo on 10-02-2024 Rubeola (Measles) IgG Antibody > 300.0 AU/mL Immune >16.4 [facility] Comment on above: Negative <13.5 Equiv ocal 13.5 - 16.4 Positive >16.4Presence of antibodies to Rubeola is presumptive evidenceof immunity except when acute infection is suspected.Performed at: [facility] [employer] [id number] Director: Bonifacio De Jesus PhD, Phone: [phone] Potassium (Unsp spec) [Mass/ Vol]Ordered By: Lenin Hidalgo on 10-02-2024 Potassium [Moles/Vol] 4.0 mmol/L 3.3-5.1 [facility] Potassium measurement (mass/ volume)Ordered By: Lenin Hidalgo on 10-02-2024 Potassium (Unsp spec) [Mass/Vol] 4.0 mmol/L 3.3-5.1 [facility] Serum creatinine measurement (mass/volume)Ordered By: Lenin Hidalgo on 10-02-2024 Creatinine [Mass/Vol] 1.38 mg/dL High 0.70-1.20 [facility] Serum globulin measurementOr dered By: Lenin Hidalgo on 10-02-2024 Globulin (S) [Mass/Vol] 2.9 g/dL 2.2-4.2 [facility] Serum glucose measurement (m ass/volume)Ordered By: Lenin Hidalgo on 10-02-2024 Glucose [Mass/Vol] 185 mg/dL High 70-99 [facility] Serum measles virus IgG anti body assay by immunoassay (units/volume)Ordered By: Lenin Hidalgo on 10-02-2024 MeV IgG IA Qn (S) > 300.0 AU/mL Immune >16.4 [facility] Comment on above: Negative <13.5 Equiv ocal 13.5 - 16.4 Positive >16.4Presence of antibodies to Rubeola is presumptive evidenceof immunity except when acute infection is suspected.Performed at: [facility] [address] [id number] Director: Bonifacio De Jesus PhD, Phone: [phone] Serum or plasma alanine pringle otransferase (ALT) measurementOrdered By: Lenin Hidalgo on 10-02-2024 ALT [Catalytic activity/Vol] 17 U/L <47 [facility] Serum or plasma albumin kay urement (mass/volume)Ordered By: Lenin Hidalgo on 10-02-2024 Albumin [Mass/Vol] 4.1 g/dL 3.4-4.8 [facility] Serum or plasma albumin/glob ulin mass ratioOrdered By: Lenin Hidalgo on 10-02-2024 Albumin/Globulin [Mass ratio] 1.4 {ratio} 0.9-2.4 [facility] Serum or plasma alkaline ranjana sphatase measurementOrdered By: Lenin Hidalgo on 10-02-2024 ALP [Catalytic activity/Vol] 46 U/L 40-129 [facility] Serum or plasma calcium kay urement (mass/volume)Ordered By: Lenin Hidalgo on 10-02-2024 Calcium [Mass/Vol] 9.4 mg/dL 7.6-11.0 [facility] Serum or plasma urea nitroge n measurement (mass/volume)Ordered By: Lenin Hidalgo on 10-02-2024 Urea nitrogen [Mass/Vol] 22 mg/dL High 4-19 [facility] Sodium levelOrdered By: Lenin Hidalgo on 10-02-2024 Sodium [Moles/Vol] 134 mmol/L 133-145 [facility] Total proteinOrdered By: Selma Hidalgo on 10-02-2024 Protein [Mass/Vol] 7.0 g/dL 5.9-8.4 [facility] Vitamin D, 25-hydroxyOrdered By: Lenin Hidalgo on 10-02-2024 Vitamin D 25-Hydroxy 54.1 ng/mL 30-100 [facility] Comment on above: Vitamin D StatusDefi ciency: <20 ng/mL (50nmol/L)Insufficiency: 20-30 ng/mL (50-75 nmol/L)Sufficiency: 30-100 ng/mL (75-250 nmol/L)Toxicity: >100 ng/mL (>250 nmol/L) L7000.0750on 09-27-2024 P ELASTASE,FECA 49 Low >200 [facility] Comment on above: Result Comment: Resu lt Units: ug Elast./g Severe Pancreatic Insufficiency: <100 Moderate Pancreatic Insufficiency: 100 - 200 Normal: >200 Performed at: [facility] [address] [id number] Job Foreman: Eduard Linares MD, Phone: [phone] Performed By: #### L 500.4050, L100.0100 #### [facility] [address] [place], [address] Anion gap in Serum or Plasma Ordered By: Lenin Hidalgo on 09-25-2024 Anion gap [Moles/Vol] 13 mmol/L 5-15 [facility] BUN/creatinine ratioOrdered By: Lenin Hidalgo on 09-25-2024 Urea nitrogen/Creatinine [Mass ratio] 14.2 mg/mg 10-20 [facility] Bilirubin, totalOrdered By: Lenin Hidalgo on 09-25-2024 Bilirubin [Mass/Vol] 0.39 mg/dL 0.00-1.30 [facility] Carbon dioxide, total [Moles /volume] in Central venous bloodOrdered By: Lenin Hidalgo on 09-25-2024 CO2 [Moles/Vol] 24.0 mmol/L 21.0-32.0 [facility] Chloride assayOrdered By: Curtis Hidalgo on 09-25-2024 Chloride [Moles/Vol] 93 mmol/L Low 98-108 [facility] Comprehensive Metabolic Prof ilon 09-25-2024 Albumin [Mass/Vol] 4.5 g/dL Normal 3.4-4.8 [facility] Comment on above: Order Comment: Order Date: 04/14/24 Order Info: 0667-1 - BMP Performed By: #### L 500.2500 #### [facility] [address] [place], [address] Albumin/Globulin [Mass ratio] 1.4 {ratio} Normal 0.9-2.4 [facility] Comment on above: Order Comment: Order Date: 04/14/24 Order Info: 666- - BMP Performed By: #### L 500.2500 #### [facility] [address] [place], [address] ALK PHOS 57 U/L Normal 40-129 [facility] Comment on above: Order Comment: Order Date: 04/14/24 Order Info: 666- - BMP Performed By: #### L 500.2500 #### [facility] [address] [place], [address] ALT [Catalytic activity/Vol] 17 U/L Normal <=46 [facility] Comment on above: Order Comment: Order Date: 04/14/24 Order Info: 666-06 - BMP Performed By: #### L 500.2500 #### [facility] [address] [place], [address] AST [Catalytic activity/Vol] 18 U/L Normal <=37 [facility] Comment on above: Order Comment: Order Date: 04/14/24 Order Info: 666-06 - BMP Performed By: #### L 500.2500 #### [facility] [address] [place], [address] Bilirubin [Mass/Vol] 0.39 mg/dL Normal 0.00-1.30 [facility] Comment on above: Order Comment: Order Date: 04/14/24 Order Info: 06 - BMP Performed By: #### L 500.2500 #### [facility] [address] [place], [address] BUN/CRE 14.2 RATIO Normal 10-20 [facility] Comment on above: Order Comment: Order Date: 04/14/24 Order Info: 666- - BMP Performed By: #### L 500.2500 #### [facility] [address] [place], [address] Calcium [Mass/Vol] 10.0 mg/dL Normal 7.6-11.0 [facility] Comment on above: Order Comment: Order Date: 04/14/24 Order Info: 0667- - BMP Performed By: #### L 500.2500 #### [facility] [address] [place], [address] Chloride [Moles/Vol] 93 mmol/L Low 98-108 [facility] Comment on above: Order Comment: Order Date: 04/14/24 Order Info: 06- - BMP Performed By: #### L 500.2500 #### [facility] [address] [place], [address] CO2 [Moles/Vol] 24.0 mmol/L Normal 21.0-32.0 [facility] Comment on above: Order Comment: Order Date: 04/14/24 Order Info: 06- - BMP Performed By: #### L 500.2500 #### [facility] [address] [place], [address] Creatinine [Mass/Vol] 1.49 mg/dL High 0.70-1.20 [facility] Comment on above: Order Comment: Order Date: 04/14/24 Order Info: 06 - BMP Performed By: #### L 500.2500 #### [facility] [address] [place], [address] GAP 13 Normal 5-15 [facility] Comment on above: Order Comment: Order Date: 04/14/24 Order Info: 06- - BMP Performed By: #### L 500.2500 #### [facility] [address] [place], [address] GFR/1.73 sq M.predicted among non-blacks MDRD (S/P/Bld) [Vol rate/Area] 49 mL/min/{1.73_m2} Low >60 [facility] Comment on above: Order Comment: Order Date: 04/14/24 Order Info: 666-06 - BMP Result Comment: mL/m in/1.73m2 CKD-EPI Creatinine Equation (2020) Performed By: #### L 500.2500 #### [facility] [address] [place], [address] Globulin (S) [Mass/Vol] 3.3 g/dL Normal 2.2-4.2 [facility] Comment on above: Order Comment: Order Date: 04/14/24 Order Info: 666-06 - BMP Performed By: #### L 500.2500 #### [facility] [address] [place], [address] Glucose [Mass/Vol] 110 mg/dL High 70-99 [facility] Comment on above: Order Comment: Order Date: 04/14/24 Order Info: 666-06 - BMP Performed By: #### L 500.2500 #### [facility] [address] [place], [address] Potassium [Moles/Vol] 5.1 mmol/L Normal 3.3-5.1 [facility] Comment on above: Order Comment: Order Date: 04/14/24 Order Info: 666-06 - BMP Performed By: #### L 500.2500 #### [facility] [address] [place], [address] Sodium [Moles/Vol] 130 mmol/L Low 133-145 [facility] Comment on above: Order Comment: Order Date: 04/14/24 Order Info: 666-06 - BMP Performed By: #### L 500.2500 #### [facility] [address] [place], [address] T PROT 7.7 g/dL Normal 5.9-8.4 [facility] Comment on above: Order Comment: Order Date: 04/14/24 Order Info: 06 - BMP Performed By: #### L 500.2500 #### [facility] [address] [place], [place], [address] Urea nitrogen [Mass/Vol] 21 mg/dL High 4-19 [facility] Comment on above: Order Comment: Order Date: 04/14/24 Order Info: 0667-1 - BMP Performed By: #### L 500.2500 #### [facility] [address] [place], [place], [address] Elastase.pancreatic (Stl) [M ass/Mass]Ordered By: Lenin Hidalgo on 09-25-2024 Stool Pancreatic Elastase 49 Low >200 [facility] Comment on above: Result Units: ug Angy st./g Severe Pancreatic Insufficiency: <100 Moderate Pancreatic Insufficiency: 100 - 200 Normal: >200Performed at: [facility] [id number] Director: Eduard Linares MD, Phone: [phone] GFR/1.73 sq M.predicted paul g non-blacks MDRD (S/P/Bld) [Vol rate/Area]Ordered By: Lenin Hidalgo on 09-25-2024 Estimated GFR (MDRD) Non-Af Amer 49 Low >60 [facility] Comment on above: mL/min/1.73m2 CKD-EP I Creatinine Equation (2020) Glomerular filtration rate ( GFR) estimation/1.73 sq m using serum, plasma, or whole bOrdered By: Lenin Hidalgo on 09-25-2024 GFR/1.73 sq M.predicted among non-blacks MDRD (S/P/Bld) [Vol rate/Area] 49 mL/min/{1.73_m2} Low >60 [facility] Comment on above: mL/min/1.73m2 CKD-EP I Creatinine Equation (2020) Laboratory - Chemistry and C hemistry - challengeOrdered By: Lenin Hidalgo on 09-25-2024 AST [Catalytic activity/Vol] 18 U/L <38 [facility] Lipaseon 09-25-2024 Lipase [Catalytic activity/Vol] 23 U/L Normal 13-75 [facility] Comment on above: Order Comment: Order Date: 04/14/24 Order Info: 0667-1 - BMP Result Comment: Plea se note: LIPASE revised reference range effective 22. New Lipase methodology. Expected to produce lower values than the previous assay method. NEW Reference Range: 13 - 75 U/L Performed By: #### L 500.2500 #### [facility] [address] [place], [place], [address] Lipase measurementOrdered By : Lenin Hidalgo on 09-25-2024 Lipase [Catalytic activity/Vol] 23 U/L 13-75 [facility] Comment on above: Please note:LIPASE r evised reference range effective 22. New Lipase methodology. Expected to produce lower values than the previous assay method. NEW Reference Range: 13 - 75 U/L Magnesiumon 09-25-2024 Magnesium [Mass/Vol] 2.0 mg/dL Normal 1.5-2.2 [facility] Comment on above: Order Comment: Order Date: 04/14/24 Order Info: 0667-1 - BMP Performed By: #### L 500.2500 #### [facility] [address] [place], [place], [address] Magnesium (Unsp spec) [Mass/ Vol]Ordered By: Lenin Hidalgo on 09-25-2024 Magnesium [Mass/Vol] 2.0 mg/dL 1.5-2.2 [facility] Magnesium measurement (mass/ volume)Ordered By: Lenin Hidalgo on 09-25-2024 Magnesium (Unsp spec) [Mass/Vol] 2.0 mg/dL 1.5-2.2 [facility] Potassium (Unsp spec) [Mass/ Vol]Ordered By: Lenin Hidalgo on 09-25-2024 Potassium [Moles/Vol] 5.1 mmol/L 3.3-5.1 [facility] Potassium measurement (mass/ volume)Ordered By: Lenin Hidalgo on 09-25-2024 Potassium (Unsp spec) [Mass/Vol] 5.1 mmol/L 3.3-5.1 [facility] Serum creatinine measurement (mass/volume)Ordered By: Lenin Hidalgo on 09-25-2024 Creatinine [Mass/Vol] 1.49 mg/dL High 0.70-1.20 [facility] Serum globulin measurementOr dered By: Lenin Hidalgo on 09-25-2024 Globulin (S) [Mass/Vol] 3.3 g/dL 2.2-4.2 [facility] Serum glucose measurement (m ass/volume)Ordered By: Lenin Hidalgo on 09-25-2024 Glucose [Mass/Vol] 110 mg/dL High 70-99 [facility] Serum or plasma alanine pringle otransferase (ALT) measurementOrdered By: Lenin Hidalgo on 09-25-2024 ALT [Catalytic activity/Vol] 17 U/L <47 [facility] Serum or plasma albumin kay urement (mass/volume)Ordered By: Lenin Hidalgo on 09-25-2024 Albumin [Mass/Vol] 4.5 g/dL 3.4-4.8 [facility] Serum or plasma albumin/glob ulin mass ratioOrdered By: Lenin Hidalgo on 09-25-2024 Albumin/Globulin [Mass ratio] 1.4 {ratio} 0.9-2.4 [facility] Serum or plasma alkaline ranjana sphatase measurementOrdered By: Lenin Hidalgo on 09-25-2024 ALP [Catalytic activity/Vol] 57 U/L 40-129 [facility] Serum or plasma calcium kay urement (mass/volume)Ordered By: Lenin Hidalgo on 09-25-2024 Calcium [Mass/Vol] 10.0 mg/dL 7.6-11.0 [facility] Serum or plasma urea nitroge n measurement (mass/volume)Ordered By: Lenin Hidalgo on 09-25-2024 Urea nitrogen [Mass/Vol] 21 mg/dL High 4-19 [facility] Sodium levelOrdered By: Lenin Hidalgo on 09-25-2024 Sodium [Moles/Vol] 130 mmol/L Low 133-145 [facility] Stool pancreatic elastase me asurement (mass/mass)Ordered By: Lenin Hidalgo on 09-25-2024 Elastase.pancreatic (Stl) [Mass/Mass] 49 Low >200 [facility] Comment on above: Result Units: ug Angy st./g Severe Pancreatic Insufficiency: <100 Moderate Pancreatic Insufficiency: 100 - 200 Normal: >200Performed at: - [facility] [address] [id number] Director: Eduard Linares MD, Phone: [phone] Total proteinOrdered By: Selma Hidalgo on 09-25-2024 Protein [Mass/Vol] 7.7 g/dL 5.9-8.4 [facility] L3410.9998on 09-24-2024 [facility] Mis. COMMENT Normal . [facility] Comment on above: Order Comment: Inter face Comments: standing order Order Date: 03/28/24 Order Info: 0667-1 - BMP Annual exam Order Date: 04/11/24 Order Info: [id number] - LIPID Comments: annual annual Result Comment: Test Ordered: [id number] Stool Culture Salmonella/Shigella Screen Note: CB Final report Reference Range: . Result 1 Comment CB Reference Range: . No Salmonella or Shigella recovered. Campylobacter Culture Note: CB Final report Reference Range: . Result 1 Comment CB Reference Range: . No Campylobacter species isolated. E coli Shiga Toxin EIA Negative CB Reference Range: Negative Performed at: - [facility] [address] [id number] Job Foreman: Bonifacio De Jesus PhD, Phone: [phone] Performed By: #### L 500.2500 #### [facility] [address] [place] [address]. [place], [address] Absolute neutrophil countOrd ered By: Red Garcia on 09-19-2024 Neutrophils (Bld) [#/Vol] 5.4 10*3/uL 2.0-7.7 [facility] Anion gap in Serum or Plasma Ordered By: Red Garcia on 09-19-2024 Anion gap [Moles/Vol] 11 mmol/L 5-15 [facility] BUN/creatinine ratioOrdered By: Red Garcia on 09-19-2024 Urea nitrogen/Creatinine [Mass ratio] 15.7 mg/mg 10-20 [facility] Basophil percentageOrdered B y: Red Garcia on 09-19-2024 Basophils/100 WBC (Bld) 0.5 % 0-1 [facility] Bilirubin, totalOrdered By: Red Garcia on 09-19-2024 Bilirubin [Mass/Vol] 0.46 mg/dL 0.00-1.30 [facility] C. difficile DNA ZAMZAM+probe Q l (Unsp spec)Ordered By: Red Garcia on 09-19-2024 Clostridioides difficile (PCR) [facility] CBC W/Diff, Automatedon 08-27 Absolute Lymph 1.13 X10 3/uL Normal 0.83-4.51 [facility] Comment on above: Performed By: #### L 500.4050, L100.0100 #### [facility] [address] [place], [address] Absolute Neut 5.4 X10 3/uL Normal 2.0-7.7 [facility] Comment on above: Performed By: #### L 500.4050, L100.0100 #### [facility] [address] [place], [address] Basophils/100 WBC (Bld) 0.5 % Normal 0-1 [facility] Comment on above: Performed By: #### L 500.4050, L100.0100 #### [facility] [address] [place], [address] Eosinophils/100 WBC (Bld) 1.8 % Normal 0-5 [facility] Comment on above: Performed By: #### L 500.4050, L100.0100 #### [facility] [address] [place], [address] Erythrocyte distribution width (RBC) [Ratio] 12.4 % Normal 11.6-14.6 [facility] Comment on above: Performed By: #### L 500.4050, L100.0100 #### [facility] [address] [place], [address] Hematocrit (Bld) [Volume fraction] 40.8 % Normal 40-54 [facility] Comment on above: Performed By: #### L 500.4050, L100.0100 #### [facility] [address] [place], [address] Hemoglobin (Bld) [Mass/Vol] 13.7 g/dL Normal 13.0-16.5 [facility] Comment on above: Performed By: #### L 500.4050, L100.0100 #### [facility] [address] [place], [address] IG% 0.400 Normal 0.0-0.9 [facility] Comment on above: Result Comment: IG% - Immature Granulocytes (promyelocytes, myelocytes and metamyelocytes) > 1% indicates that a LEFT SHIFT is Present. Performed By: #### L 500.4050, L100.0100 #### [facility] [address] [place], [address] Lymphocytes/100 WBC (Bld) 15.4 % Low 19-41 [facility] Comment on above: Performed By: #### L 500.4050, L100.0100 #### [facility] [address] [place], [address] MCH (RBC) [Entitic mass] 32.3 pg High 27.0-32.0 [facility] Comment on above: Performed By: #### L 500.4050, L100.0100 #### [facility] [address] [place], [address] MCHC (RBC) [Mass/Vol] 33.6 g/dL Normal 32-36 [facility] Comment on above: Performed By: #### L 500.4050, L100.0100 #### [facility] [address] [place], [address] MCV (RBC) [Entitic vol] 96.2 fL High 80-94 [facility] Comment on above: Performed By: #### L 500.4050, L100.0100 #### [facility] [address] [place], [address] Monocytes/100 WBC (Bld) 7.9 % Normal 0-10 [facility] Comment on above: Performed By: #### L 500.4050, L100.0100 #### [facility] [address] [place], [address] Neutrophils/100 WBC (Bld) 74.0 % High 47-70 [facility] Comment on above: Performed By: #### L 500.4050, L100.0100 #### [facility] [address] [place], [address] Nucleated RBC (Bld) [#/Vol] 0 10*3/uL Normal 0-5 [facility] Comment on above: Performed By: #### L 500.4050, L100.0100 #### [facility] [address] [place], [address] Platelet mean volume (Bld) [Entitic vol] 8.5 fL Normal 6.2-12.0 [facility] Comment on above: Performed By: #### L 500.4050, L100.0100 #### [facility] [address] [place], [address] Platelets (Bld) [#/Vol] 343 10*3/uL Normal 150-450 [facility] Comment on above: Performed By: #### L 500.4050, L100.0100 #### [facility] [address] [place], [address] RBC (Bld) [#/Vol] 4.24 10*6/uL Low 4.6-6.2 [facility] Comment on above: Performed By: #### L 500.4050, L100.0100 #### [facility] [address] [place], [address] RDW SD 43.8 fl Normal 35.1-43.9 [facility] Comment on above: Performed By: #### L 500.4050, L100.0100 #### [facility] [address] [place], [address] WBC (Bld) [#/Vol] 7.3 10*3/uL Normal 4.4-11.0 [facility] Comment on above: Performed By: #### L 500.4050, L100.0100 #### [facility] [address] [place], [address] CDIFF (PCR)on 09-19-2024 CDIFF Pending [phone] [id number] Presumptive Negative *for epidemiolologic???use C. Diff PCR Negative- No toxigenic C. Diff Detected Normal [facility] Comment on above: Performed By: #### L 500.2500 #### [facility] [address] [place], [address] Carbon dioxide, total [Moles /volume] in Central venous bloodOrdered By: Red Garcia on 09-19-2024 CO2 [Moles/Vol] 24.3 mmol/L 21.0-32.0 [facility] Chloride assayOrdered By: Era Garcia on 09-19-2024 Chloride [Moles/Vol] 95 mmol/L Low 98-108 [facility] Comprehensive Metabolic Prof ilon 09-19-2024 Albumin [Mass/Vol] 4.4 g/dL Normal 3.4-4.8 [facility] Comment on above: Performed By: #### L 500.4050, L100.0100 #### [facility] [address] [place], [address] Albumin/Globulin [Mass ratio] 1.4 {ratio} Normal 0.9-2.4 [facility] Comment on above: Performed By: #### L 500.4050, L100.0100 #### [facility] [address] [place], [address] ALK PHOS 56 U/L Normal 40-129 [facility] Comment on above: Performed By: #### L 500.4050, L100.0100 #### [facility] [address] [place], [address] ALT [Catalytic activity/Vol] 19 U/L Normal <=46 [facility] Comment on above: Performed By: #### L 500.4050, L100.0100 #### [facility] [address] [place], [address] AST [Catalytic activity/Vol] 20 U/L Normal <=37 [facility] Comment on above: Performed By: #### L 500.4050, L100.0100 #### [facility] [address] [place], [address] Bilirubin [Mass/Vol] 0.46 mg/dL Normal 0.00-1.30 [facility] Comment on above: Performed By: #### L 500.4050, L100.0100 #### [facility] [address] [place], [address] BUN/CRE 15.7 RATIO Normal 10-20 [facility] Comment on above: Performed By: #### L 500.4050, L100.0100 #### [facility] [address] [place], [address] Calcium [Mass/Vol] 10.0 mg/dL Normal 7.6-11.0 [facility] Comment on above: Performed By: #### L 500.4050, L100.0100 #### [facility] [address] [place], [address] Chloride [Moles/Vol] 95 mmol/L Low 98-108 [facility] Comment on above: Performed By: #### L 500.4050, L100.0100 #### [facility] [address] [place], [address] CO2 [Moles/Vol] 24.3 mmol/L Normal 21.0-32.0 [facility] Comment on above: Performed By: #### L 500.4050, L100.0100 #### [facility] [address] [place], [address] Creatinine [Mass/Vol] 1.22 mg/dL High 0.70-1.20 [facility] Comment on above: Performed By: #### L 500.4050, L100.0100 #### [facility] [address] [place], [address] GAP 11 Normal 5-15 [facility] Comment on above: Performed By: #### L 500.4050, L100.0100 #### [facility] [address] [place], [address] GFR/1.73 sq M.predicted among non-blacks MDRD (S/P/Bld) [Vol rate/Area] 63 mL/min/{1.73_m2} Normal >60 [facility] Comment on above: Result Comment: mL/m in/1.73m2 CKD-EPI Creatinine Equation (2020) Performed By: #### L 500.4050, L100.0100 #### [facility] [address] [place], [address] Globulin (S) [Mass/Vol] 3.2 g/dL Normal 2.2-4.2 [facility] Comment on above: Performed By: #### L 500.4050, L100.0100 #### [facility] [address] [place], [address] Glucose [Mass/Vol] 127 mg/dL High 70-99 [facility] Comment on above: Performed By: #### L 500.4050, L100.0100 #### [facility] [address] [place], [address] Potassium [Moles/Vol] 4.7 mmol/L Normal 3.3-5.1 [facility] Comment on above: Performed By: #### L 500.4050, L100.0100 #### [facility] [address] [place], [address] Sodium [Moles/Vol] 131 mmol/L Low 133-145 [facility] Comment on above: Performed By: #### L 500.4050, L100.0100 #### [facility] [address] [place], [address] T PROT 7.6 g/dL Normal 5.9-8.4 [facility] Comment on above: Performed By: #### L 500.4050, L100.0100 #### [facility] [address] [place], [address] Urea nitrogen [Mass/Vol] 19 mg/dL Normal 4-19 [facility] Comment on above: Performed By: #### L 500.4050, L100.0100 #### [facility] [address] [place], [address] Eosinophil percentageOrdered By: Red Garcia on 09-19-2024 Eosinophils/100 WBC (Bld) 1.8 % 0-5 [facility] Erythrocyte distribution wid th ratioOrdered By: Red Garcia on 09-19-2024 Erythrocyte distribution width (RBC) [Ratio] 12.4 % 11.6-14.6 [facility] Erythrocyte distribution wid th standard deviationOrdered By: Red Garcia on 09-19-2024 Erythrocyte distribution width (RBC) [Entitic vol] 43.8 fL 35.1-43.9 [facility] [facility] GFR/1.73 sq M.predicted paul g non-blacks MDRD (S/P/Bld) [Vol rate/Area]Ordered By: Red Garcia on 09-19-2024 Estimated GFR (MDRD) Non-Af Amer 63 >60 [facility] Comment on above: mL/min/1.73m2 CKD-EP I Creatinine Equation (2020) Hematocrit Auto (Bld) [Volum e fraction]Ordered By: Red Garcia on 09-19-2024 Hematocrit (Bld) [Volume fraction] 40.8 % 40-54 [facility] Hemoglobin measurementOrdere d By: Red Garcia on 09-19-2024 Hemoglobin (Bld) [Mass/Vol] 13.7 g/dL 13.0-16.5 [facility] Immature granulocytes/100 WB C Auto (Bld)Ordered By: Red Garcia on 09-19-2024 Immature granulocytes/100 WBC (Bld) 0.400 % 0.0-0.9 [facility] Comment on above: IG% - Immature Granu locytes (promyelocytes, myelocytes and metamyelocytes) > 1% indicates that a LEFT SHIFT is Present. Laboratory - Chemistry and C hemistry - challengeOrdered By: Red Garcia on 09-19-2024 AST [Catalytic activity/Vol] 20 U/L <38 [facility] Lymphocytes Auto (Unsp spec) [#/Vol]Ordered By: Red Garcia on 09-19-2024 Lymphocytes (Bld) [#/Vol] 1.13 10*3/uL 0.83-4.51 [facility] Lymphocytes/100 WBC Auto (Un sp spec)Ordered By: Red Garcia on 09-19-2024 Lymphocytes/100 WBC (Bld) 15.4 % Low 19-41 [facility] MCV (mean corpuscular volume ) determinationOrdered By: Red Garcia on 09-19-2024 MCV (RBC) [Entitic vol] 96.2 fL High 80-94 [facility] Mean corpuscular hemoglobin (MCH) determinationOrdered By: Red Garcia on 09-19-2024 MCH (RBC) [Entitic mass] 32.3 pg High 27.0-32.0 [facility] Mean corpuscular hemoglobin concentration (MCHC) determinationOrdered By: Red Garcia on 09-19-2024 MCHC (RBC) [Mass/Vol] 33.6 g/dL 32-36 [facility] Mean platelet volume determi nationOrdered By: Red Garcia on 09-19-2024 Platelet mean volume (Bld) [Entitic vol] 8.5 fL 6.2-12.0 [facility] Monocyte percentageOrdered B y: Red Garcia on 09-19-2024 Monocytes/100 WBC (Bld) 7.9 % 0-10 [facility] Neutrophil percentageOrdered By: Red Garcia on 09-19-2024 Neutrophils/100 WBC (Bld) 74.0 % High 47-70 [facility] Nucleated red blood cell per centageOrdered By: Red Garcia on 09-19-2024 Nucleated RBC/100 WBC (Bld) [Ratio] 0 % 0-5 [facility] Platelet countOrdered By: Era Garcia on 09-19-2024 Platelets (Bld) [#/Vol] 343 10*3/uL 150-450 [facility] Potassium (Unsp spec) [Mass/ Vol]Ordered By: Red Garcia on 09-19-2024 Potassium [Moles/Vol] 4.7 mmol/L 3.3-5.1 [facility] RBC Auto (Bld) [#/Vol]Ordere d By: Red Garcia on 09-19-2024 RBC (Bld) [#/Vol] 4.24 10*6/uL Low 4.6-6.2 [facility] Serum creatinine measurement (mass/volume)Ordered By: Red Garcia on 09-19-2024 Creatinine [Mass/Vol] 1.22 mg/dL High 0.70-1.20 [facility] Serum globulin measurementOr dered By: Red Garcia on 09-19-2024 Globulin (S) [Mass/Vol] 3.2 g/dL 2.2-4.2 [facility] Serum glucose measurement (m ass/volume)Ordered By: Red Garcia on 09-19-2024 Glucose [Mass/Vol] 127 mg/dL High 70-99 [facility] Serum or plasma alanine pringle otransferase (ALT) measurementOrdered By: Red Garcia on 09-19-2024 ALT [Catalytic activity/Vol] 19 U/L <47 [facility] Serum or plasma albumin kay urement (mass/volume)Ordered By: Red Garcia on 09-19-2024 Albumin [Mass/Vol] 4.4 g/dL 3.4-4.8 [facility] Serum or plasma albumin/glob ulin mass ratioOrdered By: Red Garcia on 09-19-2024 Albumin/Globulin [Mass ratio] 1.4 {ratio} 0.9-2.4 [facility] Serum or plasma alkaline ranjana sphatase measurementOrdered By: Red Garcia on 09-19-2024 ALP [Catalytic activity/Vol] 56 U/L 40-129 [facility] Serum or plasma calcium kay urement (mass/volume)Ordered By: Red Garcia on 09-19-2024 Calcium [Mass/Vol] 10.0 mg/dL 7.6-11.0 [facility] Serum or plasma urea nitroge n measurement (mass/volume)Ordered By: Red Garcia on 09-19-2024 Urea nitrogen [Mass/Vol] 19 mg/dL 4-19 [facility] Sodium levelOrdered By: Red Garcia on 09-19-2024 Sodium [Moles/Vol] 131 mmol/L Low 133-145 [facility] Total proteinOrdered By: Marilu Garcia on 09-19-2024 Protein [Mass/Vol] 7.6 g/dL 5.9-8.4 [facility] White blood cell (WBC) count Ordered By: Red Garcia on 09-19-2024 WBC (Bld) [#/Vol] 7.3 10*3/uL 4.4-11.0 [facility] CTA Chest W/WO Contraston CTA Chest W/WO Contrast [facility] Imaging Services [address] [place] [id number] CTA Chest W/WO Contrast MR#: [id number] Acct: [id number] Name: OSMAN PADGETT Rep #: [id number] : 1950 M 74 From: Fredrick Medina MD PCP: Dr. Lenin Hidalgo MD Status: [facility] CL Study: CTA Chest W/WO Contrast Date of Exam: 07/28/24 Exam# [id number] Ordering Dr: Trenton Gerard MD PROCEDURE: CTA [...] use of iterative reconstruction technique). Reading Location: [employer] CC: Dr. Trenton Gerard MD; Dr. Lenin Hidalgo MD Seo Intern: Signed Normal [facility] Absolute neutrophil countOrd ered By: Lenin Hidalgo on 07-17-2024 Neutrophils (Bld) [#/Vol] 4.5 10*3/uL 2.0-7.7 [facility] Albumin to globulin ratioOrd ered By: Lenin Hidalgo on 07-17-2024 Albumin/Globulin [Mass ratio] 1.0 {ratio} 0.9-2.4 [facility] Basophil percentageOrdered B y: Lenin Hidalgo on 07-17-2024 Basophils/100 WBC (Bld) 0.9 % 0-1 [facility] Bilirubin, totalOrdered By: Lenin Hidalgo on 07-17-2024 Bilirubin [Mass/Vol] 0.40 mg/dL 0.20-1.00 [facility] Comment on above: For patients on eltr ombopag therapy, use of Dimension [place] TBIL is not recommended. Blood urea nitrogen (BUN)/cr eatinine ratioOrdered By: Lenin Hidalgo on 07-17-2024 Urea nitrogen/Creatinine [Mass ratio] 16.7 mg/mg 04-16 [facility] CBC W/Diff, Automatedon 06-29 Absolute Lymph 1.22 X10 3/uL Normal 0.83-4.51 [facility] Comment on above: Order Comment: Order Date: 04/14/24 Order Info: 0667-1 - BMP Performed By: #### L 500.2500 #### [facility] [address] [place], [address] Absolute Neut 4.5 X10 3/uL Normal 2.0-7.7 [facility] Comment on above: Order Comment: Order Date: 04/14/24 Order Info: 666-06 - BMP Performed By: #### L 500.2500 #### [facility] [address] [place], [address] Basophils/100 WBC (Bld) 0.9 % Normal 0-1 [facility] Comment on above: Order Comment: Order Date: 04/14/24 Order Info: 666-06 - BMP Performed By: #### L 500.2500 #### [facility] [address] [place], [address] Eosinophils/100 WBC (Bld) 3.6 % Normal 0-5 [facility] Comment on above: Order Comment: Order Date: 04/14/24 Order Info: 666-06 - BMP Performed By: #### L 500.2500 #### [facility] [address] [place], [address] Erythrocyte distribution width (RBC) [Ratio] 12.2 % Normal 11.6-14.6 [facility] Comment on above: Order Comment: Order Date: 04/14/24 Order Info: 666-06 - BMP Performed By: #### L 500.2500 #### [facility] [address] [place], [address] Hematocrit (Bld) [Volume fraction] 36.0 % Low 40-54 [facility] Comment on above: Order Comment: Order Date: 04/14/24 Order Info: 666-06 - BMP Performed By: #### L 500.2500 #### [facility] [address] [place], [address] Hemoglobin (Bld) [Mass/Vol] 11.9 g/dL Low 13.0-16.5 [facility] Comment on above: Order Comment: Order Date: 04/14/24 Order Info: 666-06 - BMP Performed By: #### L 500.2500 #### [facility] [address] [place], [address] IG% 0.500 Normal 0.0-0.9 [facility] Comment on above: Order Comment: Order Date: 04/14/24 Order Info: 666-06 - BMP Result Comment: IG% - Immature Granulocytes (promyelocytes, myelocytes and metamyelocytes) > 1% indicates that a LEFT SHIFT is Present. Performed By: #### L 500.2500 #### [facility] [address] [place], [address] Lymphocytes/100 WBC (Bld) 18.4 % Low 19-41 [facility] Comment on above: Order Comment: Order Date: 04/14/24 Order Info: 666-06 - BMP Performed By: #### L 500.2500 #### [facility] [address] [place], [address] MCH (RBC) [Entitic mass] 31.2 pg Normal 27.0-32.0 [facility] Comment on above: Order Comment: Order Date: 04/14/24 Order Info: 666-06 - BMP Performed By: #### L 500.2500 #### [facility] [address] [place], [address] MCHC (RBC) [Mass/Vol] 33.1 g/dL Normal 32-36 [facility] Comment on above: Order Comment: Order Date: 04/14/24 Order Info: 666-06 - BMP Performed By: #### L 500.2500 #### [facility] [address] [place], [address] MCV (RBC) [Entitic vol] 94.5 fL High 80-94 [facility] Comment on above: Order Comment: Order Date: 04/14/24 Order Info: 666-06 - BMP Performed By: #### L 500.2500 #### [facility] [address] [place], [address] Monocytes/100 WBC (Bld) 8.2 % Normal 0-10 [facility] Comment on above: Order Comment: Order Date: 04/14/24 Order Info: 666-06 - BMP Performed By: #### L 500.2500 #### [facility] [address] [place], [address] Neutrophils/100 WBC (Bld) 68.4 % Normal 47-70 [facility] Comment on above: Order Comment: Order Date: 04/14/24 Order Info: 666-06 - BMP Performed By: #### L 500.2500 #### [facility] [address] [place], [address] Nucleated RBC (Bld) [#/Vol] 0 10*3/uL Normal 0-5 [facility] Comment on above: Order Comment: Order Date: 04/14/24 Order Info: 666-06 - BMP Performed By: #### L 500.2500 #### [facility] [address] [place], [address] Platelet mean volume (Bld) [Entitic vol] 8.5 fL Normal 6.2-12.0 [facility] Comment on above: Order Comment: Order Date: 04/14/24 Order Info: 666-06 - BMP Performed By: #### L 500.2500 #### [facility] [address] [place], [address] Platelets (Bld) [#/Vol] 304 10*3/uL Normal 150-450 [facility] Comment on above: Order Comment: Order Date: 04/14/24 Order Info: 666-06 - BMP Performed By: #### L 500.2500 #### [facility] [address] [place], [address] RBC (Bld) [#/Vol] 3.81 10*6/uL Low 4.6-6.2 [facility] Comment on above: Order Comment: Order Date: 04/14/24 Order Info: 666-06 - BMP Performed By: #### L 500.2500 #### [facility] [address] [place], [address] RDW SD 42.3 fl Normal 35.1-43.9 [facility] Comment on above: Order Comment: Order Date: 04/14/24 Order Info: 666-06 - BMP Performed By: #### L 500.2500 #### [facility] [address] [place], [address] WBC (Bld) [#/Vol] 6.6 10*3/uL Normal 4.4-11.0 [facility] Comment on above: Order Comment: Order Date: 04/14/24 Order Info: 666-06 - BMP Performed By: #### L 500.2500 #### [facility] [address] [place], [address] Carbon dioxide measurementOr dered By: Lenin Hidalgo on 07-17-2024 CO2 [Moles/Vol] 25.0 mmol/L 21.0-32.0 [facility] Chloride measurementOrdered By: Lenin Hidalgo on 07-17-2024 Chloride [Moles/Vol] 98 mmol/L 98-107 [facility] Comprehensive Metabolic Prof ilon 07-17-2024 Albumin [Mass/Vol] 4.0 g/dL Normal 3.2-5.0 [facility] Comment on above: Order Comment: Order Date: 04/14/24 Order Info: 666-06 - BMP Performed By: #### L 500.2500 #### [facility] [address] [place], [place], [address] Albumin/Globulin [Mass ratio] 1.0 {ratio} Normal 0.9-2.4 [facility] Comment on above: Order Comment: Order Date: 04/14/24 Order Info: 666-06 - BMP Performed By: #### L 500.2500 #### [facility] [address] [place], [address] ALK P 53 U/L Normal 45-117 [facility] Comment on above: Order Comment: Order Date: 04/14/24 Order Info: 0667- - BMP Performed By: #### L 500.2500 #### [facility] [address] [place], [address] ALT [Catalytic activity/Vol] 21 U/L Normal 16-61 [facility] Comment on above: Order Comment: Order Date: 04/14/24 Order Info: 0667 - BMP Performed By: #### L 500.2500 #### [facility] [address] [place], [address] AST [Catalytic activity/Vol] 12 U/L Low 15-37 [facility] Comment on above: Order Comment: Order Date: 04/14/24 Order Info: 0667 - BMP Performed By: #### L 500.2500 #### [facility] [address] [place], [address] Bilirubin [Mass/Vol] 0.40 mg/dL Normal 0.20-1.00 [facility] Comment on above: Order Comment: Order Date: 04/14/24 Order Info: 0667- - BMP Result Comment: For patients on eltrombopag therapy, use of Dimension [place] TBIL is not recommended. Performed By: #### L 500.2500 #### [facility] [address] [place], [address] BUN/CRE 16.7 RATIO Normal 10-20 [facility] Comment on above: Order Comment: Order Date: 04/14/24 Order Info: 0667- - BMP Performed By: #### L 500.2500 #### [facility] [address] [place], [address] CA,Total 9.8 mg/dL Normal 8.5-10.1 [facility] Comment on above: Order Comment: Order Date: 04/14/24 Order Info: 666-06 - BMP Performed By: #### L 500.2500 #### [facility] [address] [place], [address] Chloride [Moles/Vol] 98 mmol/L Normal 98-107 [facility] Comment on above: Order Comment: Order Date: 04/14/24 Order Info: 666-06 - BMP Performed By: #### L 500.2500 #### [facility] [address] [place], [address] CO2 [Moles/Vol] 25.0 mmol/L Normal 21.0-32.0 [facility] Comment on above: Order Comment: Order Date: 04/14/24 Order Info: 666-06 - BMP Performed By: #### L 500.2500 #### [facility] [address] [place], [address] Creatinine [Mass/Vol] 1.50 mg/dL High 0.70-1.30 [facility] Comment on above: Order Comment: Order Date: 04/14/24 Order Info: 666-06 - BMP Result Comment: The validity of the calculated GFR GFRAA in patients over 70 years has not been determined. Clinical correlation is essential. Performed By: #### L 500.2500 #### [facility] [address] [place], [address] EST GFR - AA 59 mL/min Low >60 [facility] Comment on above: Order Comment: Order Date: 04/14/24 Order Info: 666-06 - BMP Result Comment: Afri can [place] GFR Calc Performed By: #### L 500.2500 #### [facility] [address] [place], [address] GAP 9 Normal 5-15 [facility] Comment on above: Order Comment: Order Date: 04/14/24 Order Info: 666-06 - BMP Performed By: #### L 500.2500 #### [facility] [address] [place], [place], [address] GFR/1.73 sq M.predicted among non-blacks MDRD (S/P/Bld) [Vol rate/Area] 49 mL/min/{1.73_m2} Low >60 [facility] Comment on above: Order Comment: Order Date: 04/14/24 Order Info: 06- - BMP Result Comment: Non- GFR Calc Performed By: #### L 500.2500 #### [facility] [address] [place], [place], [id number] Globulin (S) [Mass/Vol] 3.9 g/dL Normal 2.2-4.2 [facility] Comment on above: Order Comment: Order Date: 04/14/24 Order Info: 666-06 - BMP Performed By: #### L 500.2500 #### [facility] [address] [place], [place], [address] Glucose [Mass/Vol] 130 mg/dL High 74-106 [facility] Comment on above: Order Comment: Order Date: 04/14/24 Order Info: 666-06 - BMP Result Comment: Fast ing Glucose result greater than or equal to 126 mg/dL suggests DIABETES MELLITUS per A.D.A. criteria. Performed By: #### L 500.2500 #### [facility] [address] [place], [place], [address] Potassium [Moles/Vol] 4.6 mmol/L Normal 3.5-5.1 [facility] Comment on above: Order Comment: Order Date: 04/14/24 Order Info: 06 - BMP Performed By: #### L 500.2500 #### [facility] [address] [place], [place], [address] Sodium [Moles/Vol] 132 mmol/L Low 136-145 [facility] Comment on above: Order Comment: Order Date: 04/14/24 Order Info: 06 - BMP Performed By: #### L 500.2500 #### [facility] [address] [place], [place], [address] T PROT 7.9 g/dL Normal 6.4-8.2 [facility] Comment on above: Order Comment: Order Date: 04/14/24 Order Info: 0667-1 - BMP Performed By: #### L 500.2500 #### [facility] [address] [place], [place], [address] Urea nitrogen [Mass/Vol] 25 mg/dL High 7-18 [facility] Comment on above: Order Comment: Order Date: 04/14/24 Order Info: 0667-1 - BMP Performed By: #### L 500.2500 #### [facility] [address] [place], [place], [address] Eosinophil percentageOrdered By: Lenin Hidalgo on 07-17-2024 Eosinophils/100 WBC (Bld) 3.6 % 0-5 [facility] Erythrocyte distribution wid th ratioOrdered By: Lenin Hidalgo on 07-17-2024 Erythrocyte distribution width (RBC) [Ratio] 12.2 % 11.6-14.6 [facility] Erythrocyte distribution wid th standard deviationOrdered By: Lenin Hidalgo on 07-17-2024 Erythrocyte distribution width (RBC) [Entitic vol] 42.3 fL 35.1-43.9 [facility] Estimated glomerular filtrat ion rate (GFR) AmericanOrdered By: Lenin Hidalgo on 07-17-2024 Estimated GFR (MDRD) Amer 59 mL/min Low >60 [facility] Comment on above: GFR Calc Glomerular filtration rate ( GFR) estimationOrdered By: Lenin Hidalgo on 07-17-2024 Estimated GFR (MDRD) Non-Af Amer 49 mL/min Low >60 [facility] Comment on above: Non- GFR Calc Glucose measurementOrdered B y: Lenin Hidalgo on 07-17-2024 Glucose [Mass/Vol] 130 mg/dL High 74-106 [facility] Comment on above: Fasting Glucose resu lt greater than or equal to 126 mg/dL suggests DIABETES MELLITUS per A.D.A. criteria. Hematocrit Auto (Bld) [Volum e fraction]Ordered By: Lenin Hidalgo on 07-17-2024 Hematocrit (Bld) [Volume fraction] 36.0 % Low 40-54 [facility] Hemoglobin measurementOrdere d By: Lenin Hidalgo on 07-17-2024 Hemoglobin (Bld) [Mass/Vol] 11.9 g/dL Low 13.0-16.5 [facility] Immature granulocytes/100 WB C Auto (Bld)Ordered By: Lenin Hidalgo on 07-17-2024 Immature granulocytes/100 WBC (Bld) 0.500 % 0.0-0.9 [facility] Comment on above: IG% - Immature Granu locytes (promyelocytes, myelocytes and metamyelocytes) > 1% indicates that a LEFT SHIFT is Present. Laboratory - Chemistry and C hemistry - challengeOrdered By: Lenin Hidalgo on 07-17-2024 AST [Catalytic activity/Vol] 12 U/L Low 15-37 [facility] Lymphocytes Auto (Unsp spec) [#/Vol]Ordered By: Lenin Hidalgo on 07-17-2024 Lymphocytes (Bld) [#/Vol] 1.22 10*3/uL 0.83-4.51 [facility] Lymphocytes/100 WBC Auto (Un sp spec)Ordered By: Lenin Hidalgo on 07-17-2024 Lymphocytes/100 WBC (Bld) 18.4 % Low 19-41 [facility] MCV (mean corpuscular volume ) determinationOrdered By: Lenin Hidalgo on 07-17-2024 MCV (RBC) [Entitic vol] 94.5 fL High 80-94 [facility] Mean corpuscular hemoglobin (MCH) determinationOrdered By: Lenin Hidalgo on 07-17-2024 MCH (RBC) [Entitic mass] 31.2 pg 27.0-32.0 [facility] Mean corpuscular hemoglobin concentration (MCHC) determinationOrdered By: Lenin Hidalgo on 07-17-2024 MCHC (RBC) [Mass/Vol] 33.1 g/dL 32-36 [facility] Mean platelet volume determi nationOrdered By: Lenin Hidalgo on 07-17-2024 Platelet mean volume (Bld) [Entitic vol] 8.5 fL 6.2-12.0 [facility] Monocyte percentageOrdered B y: Lenin Hidalgo on 07-17-2024 Monocytes/100 WBC (Bld) 8.2 % 0-10 [facility] Neutrophil percentageOrdered By: Lenin Hidalgo on 07-17-2024 Neutrophils/100 WBC (Bld) 68.4 % 47-70 [facility] Nucleated red blood cell per centageOrdered By: Lenin Hidalgo on 07-17-2024 Nucleated RBC/100 WBC (Bld) [Ratio] 0 % 0-5 [facility] Platelet countOrdered By: Curtis Hidalgo on 07-17-2024 Platelets (Bld) [#/Vol] 304 10*3/uL 150-450 [facility] Potassium measurementOrdered By: Lenin Hidalgo on 07-17-2024 Potassium [Moles/Vol] 4.6 mmol/L 3.5-5.1 [facility] RBC Auto (Bld) [#/Vol]Ordere d By: Lenin Hidalgo on 07-17-2024 RBC (Bld) [#/Vol] 3.81 10*6/uL Low 4.6-6.2 [facility] Serum anion gap measurementO rdered By: Lenin Hidalgo on 07-17-2024 Anion gap [Moles/Vol] 9 mmol/L 5-15 [facility] Serum globulin measurementOr dered By: Lenin Hidalgo on 07-17-2024 Globulin (S) [Mass/Vol] 3.9 g/dL 2.2-4.2 [facility] Serum or plasma alanine pringle otransferase (ALT) measurementOrdered By: Lenin Hidalgo on 07-17-2024 ALT [Catalytic activity/Vol] 21 U/L 16-61 [facility] Serum or plasma albumin kay urement (mass/volume)Ordered By: Lenin Hidalgo on 07-17-2024 Albumin [Mass/Vol] 4.0 g/dL 3.2-5.0 [facility] Serum or plasma alkaline ranjana sphatase measurementOrdered By: Lenin Hidalgo on 07-17-2024 ALP [Catalytic activity/Vol] 53 U/L 45-117 [facility] Serum or plasma calcium kay urement (mass/volume)Ordered By: Lenin Hidalgo on 07-17-2024 Calcium [Mass/Vol] 9.8 mg/dL 8.5-10.1 [facility] Serum or plasma creatinine m easurement (mass/volume)Ordered By: Lenin Hidalgo on 07-17-2024 Creatinine [Mass/Vol] 1.50 mg/dL High 0.70-1.30 [facility] Comment on above: The validity of the calculated GFR & GFRAA in patients over 70 years has not been determined. Clinical correlation is essential. Serum or plasma urea nitroge n measurement (mass/volume)Ordered By: Lenin Hidalgo on 07-17-2024 Urea nitrogen [Mass/Vol] 25 mg/dL High 7-18 [facility] Sodium levelOrdered By: Lenin Hidalgo on 07-17-2024 Sodium [Moles/Vol] 132 mmol/L Low 136-145 [facility] Total proteinOrdered By: Selma Hidalgo on 07-17-2024 Protein [Mass/Vol] 7.9 g/dL 6.4-8.2 [facility] White blood cell (WBC) count Ordered By: Lenin Hidalgo on 07-17-2024 WBC (Bld) [#/Vol] 6.6 10*3/uL 4.4-11.0 [facility] Cardiology Visit Reporton Cardiology Visit Report [facility] [address] [place] [address]. [address] [place] [address] OFFICE VISIT Date of Service: 07/07/24 MR#: [id number] Acct: [id number] Name: OSMAN PADGETT Rep #: [id number] : 1950 Provider: Dr. 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 Normal [facility] Protein Electroph, Son 06-19 Albumin [Mass/Vol] 3.7 g/dL Normal 2.9-4.4 [facility] Comment on above: Order Comment: Inter face Comments: standing order Order Date: 03/28/24 Order Info: 0667-1 - BMP Annual exam Order Date: 04/11/24 Order Info: [id number] - LIPID Comments: annual annual Performed By: #### L 500.2500 #### [facility] [address] [place], [place], [address] (104) Albumin/Globulin [Mass ratio] 1.1 {ratio} Normal 0.7-1.7 [facility] Comment on above: Order Comment: Inter face Comments: standing order Order Date: 03/28/24 Order Info: 0667- - BMP Annual exam Order Date: 04/11/24 Order Info: [id number] - LIPID Comments: annual annual Performed By: #### L 500.2500 #### [facility] [address] [place], [place], [id number] (704) ALPHA-1 GLOBUL 0.2 g/dL Normal 0.0-0.4 [facility] Comment on above: Order Comment: Inter face Comments: standing order Order Date: 03/28/24 Order Info: 0667- - BMP Annual exam Order Date: 04/11/24 Order Info: [id number] - LIPID Comments: annual annual Performed By: #### L 500.2500 #### [facility] [address] [place], [address] ALPHA-2 GLOBUL 0.9 g/dL Normal 0.4-1.0 [facility] Comment on above: Order Comment: Inter face Comments: standing order Order Date: 03/28/24 Order Info: 0667- - BMP Annual exam Order Date: 04/11/24 Order Info: [id number] - LIPID Comments: annual annual Performed By: #### L 500.2500 #### [facility] [address] [place], [address] BETA GLOBULIN 1.2 g/dL Normal 0.7-1.3 [facility] Comment on above: Order Comment: Inter face Comments: standing order Order Date: 03/28/24 Order Info: 0667- - BMP Annual exam Order Date: 04/11/24 Order Info: [id number] - LIPID Comments: annual annual Performed By: #### L 500.2500 #### [facility] [address] [place], [place], [address] GAMMA GLOBULIN 1.1 g/dL Normal 0.4-1.8 [facility] Comment on above: Order Comment: Inter face Comments: standing order Order Date: 03/28/24 Order Info: 06- - BMP Annual exam Order Date: 04/11/24 Order Info: [id number] - LIPID Comments: annual annual Performed By: #### L 500.2500 #### [facility] [address] [place], [place], [address] Globulin (S) [Mass/Vol] 3.4 g/dL Normal 2.2-3.9 [facility] Comment on above: Order Comment: Inter face Comments: standing order Order Date: 03/28/24 Order Info: 666- - BMP Annual exam Order Date: 04/11/24 Order Info: [id number] - LIPID Comments: annual annual Performed By: #### L 500.2500 #### [facility] [address] [place], [address] INTERPRETATION Comment Normal . [facility] Comment on above: Order Comment: Inter face Comments: standing order Order Date: 03/28/24 Order Info: 0667- - BMP Annual exam Order Date: 04/11/24 Order Info: [id number] - LIPID Comments: annual annual Result Comment: Prot ein electrophoresis scan will follow via computer, mail, or technical services rep delivery. Performed By: #### L 500.2500 #### [facility] [address] [place], [place], [address] M-SPIKE Not Observed Normal Not Observed [facility] Comment on above: Order Comment: Inter face Comments: standing order Order Date: 03/28/24 Order Info: 0667- - BMP Annual exam Order Date: 04/11/24 Order Info: [id number] - LIPID Comments: annual annual Performed By: #### L 500.2500 #### [facility] [address] [place], [place], [address] NOTE: Comment Normal . [facility] Comment on above: Order Comment: Inter face Comments: standing order Order Date: 03/28/24 Order Info: 0667-1 - BMP Annual exam Order Date: 04/11/24 Order Info: [id number] - LIPID Comments: annual annual Result Comment: The SPE pattern appears unremarkable. Evidence of monoclonal protein is not apparent. Performed at: [facility] [address] [place], [place] [id number] Job Foreman: Bonifacio De Jesus PhD, Phone: [phone] Performed By: #### L 500.2500 #### [facility] [address] [place], [place], [address] Protein [Mass/Vol] 7.1 g/dL Normal 6.0-8.5 [facility] Comment on above: Order Comment: Inter face Comments: standing order Order Date: 03/28/24 Order Info: 0667-1 - BMP Annual exam Order Date: 04/11/24 Order Info: [id number] - LIPID Comments: annual annual Performed By: #### L 500.2500 #### [facility] [address] [place], [place], [address] Addendum DocumentOrdered By: Lenin Hidalgo on 06-16-2024 Protein Electrophoresis Note Comment . [facility] Comment on above: The SPE pattern appe ars unremarkable. Evidence ofmonoclonal protein is not apparent.Performed at: [facility] [id number] [place], [place] [id number] Director: Bonifacio De Jesus PhD, Phone: [phone] Albumin Elph [Mass/Vol]Order ed By: Lenin Hidalgo on 06-16-2024 Albumin [Mass/Vol] 3.7 g/dL 2.9-4.4 [facility] Albumin/Globulin Elph [Mass ratio]Ordered By: Lenin Hidalgo on 06-16-2024 Albumin/Globulin (PEP) 1.1 0.7-1.7 [facility] Jlrsn-6-znwasfcm measurement by protein electrophoresisOrdered By: Lenin Hidalgo on 06-16-2024 Sgoys-4-Agxktptad 0.2 g/dL 0.0-0.4 [facility] Ffdud-8-uhywllcn measurement by protein electrophoresisOrdered By: Lenin Hidalgo on 06-16-2024 Tcavs-3-Afwzllfti 0.9 g/dL 0.4-1.0 [facility] Beta globulin Elph [Mass/Vol ]Ordered By: Lenin Hidalgo on 06-16-2024 Beta Globulins 1.2 g/dL 0.7-1.3 [facility] Gamma globulin measurement b y protein electrophoresisOrdered By: Lenin Hidalgo on 06-16-2024 Gamma Globulins 1.1 g/dL 0.4-1.8 [facility] Globulin (S) [Mass/Vol]Order ed By: Lenin Hidalgo on 06-16-2024 Globulin (PEP) 3.4 g/dL 2.2-3.9 [facility] PSA,Total - Annual Screenon 06-16-2024 PSA,TOT SCREEN 1.19 ng/mL Normal 0.00-4.00 [facility] Comment on above: Order Comment: Inter face Comments: standing order Order Date: 03/28/24 Order Info: 0667-1 - BMP Annual exam Order Date: 04/11/24 Order Info: [id number] - LIPID Comments: annual annual Result Comment: This test was performed using the TPSA assay method for the [employer] chemistry system. Values obtained with different assay methods cannot be used interchangably. When changing PSA assays in the course of monitoring a patient, additional sequential testing should be carried out to confirm baseline values. Performed By: #### L 500.2500 #### [facility] [address] [place], [address] Protein Fractions Elph [Inte rp]Ordered By: Lenin Hidalgo on 06-16-2024 Protein Electrophoresis Interpret Comment . [facility] Comment on above: Protein electrophore sis scan will follow via computer,mail, or technical services rep delivery. Protein.monoclonal Elph [Mas s/Vol]Ordered By: Lnein Hidalgo on 06-16-2024 Protein Electrophoresis M-Betito Not Observed g/dL Not Observed [facility] Screening prostate specific antigen (PSA) measurementOrdered By: Lenin Hidalgo on 06-16-2024 Prostate Specific Antigen Screen 1.19 ng/mL 0.00-4.00 [facility] Comment on above: This test was perfor med using the TPSA assay method for the[employer] chemistry system. Values obtained with differentassay methods cannot be used interchangably.When changing PSA assays in the course of monitoring apatient, additional sequential testing should be carriedout to confirm baseline values. Serum or plasma protein kay urement (mass/volume)Ordered By: Lenin Hidalgo on 06-16-2024 Protein [Mass/Vol] 7.1 g/dL 6.0-8.5 [facility] Lower Ext No Joint W/WO Cont on 06-12-2024 Lower Ext No Joint W/WO Cont [facility] [address] [facility] [address] [place], [place] [address] Lower Ext No Joint W/WO Cont MR#: [id number] Acct: [id number] Name: OSMAN PADGETT Rep #: [id number] : 1950 M 74 From: Bolivar holder MD PCP: Dr. Lenin Hidalgo MD Status: REG CLI Study: Lower Ext No Joint W/WO Cont Date of Exam: Exam# [id number] Ordering Dr: Delphine Neri DPLeslie [id number] STUDY: MRI LEFT MIDFOOT WITH/WITHOUT CONTRAST REASON [...] Signed: Bolivar Vogt MD at 13:13 EST , CC: DPLeslie Neri; Dr. Lenin Hidalgo MD Seo Intern: Signed Normal [facility] Basic Metabolic Profile (BMP )on 06-05-2024 BUN/CRE 18.8 RATIO Normal 10-20 [facility] Comment on above: Order Comment: Inter face Comments: standing order Order Date: 03/28/24 Order Info: 0667- - BMP Annual exam Order Date: 04/11/24 Order Info: [id number] - LIPID Comments: annual annual Performed By: #### L 500.2500 #### [facility] [address] [place], [address] (885) CA,Total 9.8 mg/dL Normal 8.5-10.1 [facility] Comment on above: Order Comment: Inter face Comments: standing order Order Date: 03/28/24 Order Info: 0667- - BMP Annual exam Order Date: 04/11/24 Order Info: [id number] - LIPID Comments: annual annual Performed By: #### L 500.2500 #### [facility] [address] [place], [address] Chloride [Moles/Vol] 101 mmol/L Normal 98-107 [facility] Comment on above: Order Comment: Inter face Comments: standing order Order Date: 03/28/24 Order Info: 0667- - BMP Annual exam Order Date: 04/11/24 Order Info: [id number] - LIPID Comments: annual annual Performed By: #### L 500.2500 #### [facility] [address] [place], [address] CO2 [Moles/Vol] 28.0 mmol/L Normal 21.0-32.0 [facility] Comment on above: Order Comment: Inter face Comments: standing order Order Date: 03/28/24 Order Info: 0667- - BMP Annual exam Order Date: 04/11/24 Order Info: [id number] - LIPID Comments: annual annual Performed By: #### L 500.2500 #### [facility] [address] [place], [address] Creatinine [Mass/Vol] 1.44 mg/dL High 0.70-1.30 [facility] Comment on above: Order Comment: Inter face Comments: standing order Order Date: 03/28/24 Order Info: 0667-1 - BMP Annual exam Order Date: 04/11/24 Order Info: [id number] - LIPID Comments: annual annual Result Comment: The validity of the calculated GFR GFRAA in patients over 70 years has not been determined. Clinical correlation is essential. Performed By: #### L 500.2500 #### [facility] [address] [place], [address] EST GFR - AA 62 mL/min Normal >60 [facility] Comment on above: Order Comment: Inter face Comments: standing order Order Date: 03/28/24 Order Info: 0667- - BMP Annual exam Order Date: 04/11/24 Order Info: [id number] - LIPID Comments: annual annual Result Comment: Afri can [place] GFR Calc Performed By: #### L 500.2500 #### [facility] [address] [place], [address] GAP 4 Low 5-15 [facility] Comment on above: Order Comment: Inter face Comments: standing order Order Date: 03/28/24 Order Info: 0667- - BMP Annual exam Order Date: 04/11/24 Order Info: [id number] - LIPID Comments: annual annual Performed By: #### L 500.2500 #### [facility] [address] [place], [address] GFR/1.73 sq M.predicted among non-blacks MDRD (S/P/Bld) [Vol rate/Area] 51 mL/min/{1.73_m2} Low >60 [facility] Comment on above: Order Comment: Inter face Comments: standing order Order Date: 03/28/24 Order Info: 0667- - BMP Annual exam Order Date: 04/11/24 Order Info: [id number] - LIPID Comments: annual annual Result Comment: Non- GFR Calc Performed By: #### L 500.2500 #### [facility] [address] [place], [address] Glucose [Mass/Vol] 169 mg/dL High 74-106 [facility] Comment on above: Order Comment: Inter face Comments: standing order Order Date: 03/28/24 Order Info: 0667- - BMP Annual exam Order Date: 04/11/24 Order Info: [id number] - LIPID Comments: annual annual Result Comment: Fast ing Glucose result greater than or equal to 126 mg/dL suggests DIABETES MELLITUS per A.D.A. criteria. Performed By: #### L 500.2500 #### [facility] [address] [place], [place], [address] Potassium [Moles/Vol] 4.8 mmol/L Normal 3.5-5.1 [facility] Comment on above: Order Comment: Inter face Comments: standing order Order Date: 03/28/24 Order Info: 06- - BMP Annual exam Order Date: 04/11/24 Order Info: [id number] - LIPID Comments: annual annual Performed By: #### L 500.2500 #### [facility] [address] [place], [place], [address] Sodium [Moles/Vol] 133 mmol/L Low 136-145 [facility] Comment on above: Order Comment: Inter face Comments: standing order Order Date: 03/28/24 Order Info: 0667- - BMP Annual exam Order Date: 04/11/24 Order Info: [id number] - LIPID Comments: annual annual Performed By: #### L 500.2500 #### [facility] [address] [place], [place], [address] [phone] Urea nitrogen [Mass/Vol] 27 mg/dL High 7-18 [facility] Comment on above: Order Comment: Inter face Comments: standing order Order Date: 03/28/24 Order Info: 0667- - BMP Annual exam Order Date: 04/11/24 Order Info: [id number] - LIPID Comments: annual annual Performed By: #### L 500.2500 #### [facility] [address] [place], [place], [address] Blood urea nitrogen (BUN)/cr eatinine ratioOrdered By: Lenin Hidalgo on 06-05-2024 Urea nitrogen/Creatinine [Mass ratio] 18.8 mg/mg 10-20 [facility] Carbon dioxide measurementOr dered By: Lenin Hidalgo on 06-05-2024 CO2 [Moles/Vol] 28.0 mmol/L 21.0-32.0 [facility] Chloride measurementOrdered By: Lenin Hidalgo on 06-05-2024 Chloride [Moles/Vol] 101 mmol/L 98-107 [facility] Estimated glomerular filtrat ion rate (GFR) AmericanOrdered By: Lenin Hidalgo on 06-05-2024 Estimated GFR (MDRD) Amer 62 mL/min >60 [facility] Comment on above: GFR Calc Glomerular filtration rate ( GFR) estimationOrdered By: Lenin Hidalgo on 06-05-2024 Estimated GFR (MDRD) Non-Af Amer 51 mL/min Low >60 [facility] Comment on above: Non- GFR Calc Glucose measurementOrdered B y: Lenin Hidalgo on 06-05-2024 Glucose [Mass/Vol] 169 mg/dL High 74-106 [facility] Comment on above: Fasting Glucose resu lt greater than or equal to 126 mg/dL suggests DIABETES MELLITUS per A.D.A. criteria. High density lipoprotein (HD L) measurementOrdered By: Lenin Hidalgo on 06-05-2024 Cholesterol in HDL [Mass/Vol] 59 mg/dL >40 [facility] Comment on above: The drugs N-Acetylcy steine and Metamizole may falsely depress this assay. Reference Range HDL <40 mg/dL Low HDL Cholesterol HDL >or= 60 mg/dL High HDL Cholesterol Lipid Profileon 06-05-2024 Cholesterol [Mass/Vol] 213 mg/dL High 200 [facility] Comment on above: Order Comment: Order Date: 11/16/24 Order Info: 4548-4 - A1C Result Comment: <200 mg/dL Desirable 200-240 mg/dL Borderline >240 mg/dL High Risk Performed By: #### L 501.9985, L500.4100, L501.9520 #### [facility] [address] [place], [address] Cholesterol in HDL [Mass/Vol] 59 mg/dL Normal [facility] Comment on above: Order Comment: Order Date: 11/16/24 Order Info: 4548-4 - A1C Result Comment: The drugs N-Acetylcysteine and Metamizole may falsely depress this assay. Reference Range HDL <40 mg/dL Low HDL Cholesterol HDL >or= 60 mg/dL High HDL Cholesterol Performed By: #### L 501.9985, L500.4100, L501.9520 #### [facility] [address] [place], [address] Cholesterol in LDL [Mass/Vol] 117 mg/dL Normal 0-130 [facility] Comment on above: Order Comment: Order Date: 11/16/24 Order Info: 4548-4 - A1C Performed By: #### L 501.9985, L500.4100, L501.9520 #### [facility] [address] [place], [address] Cholesterol in VLDL [Mass/Vol] 37 mg/dL Normal 5-40 [facility] Comment on above: Order Comment: Order Date: 11/16/24 Order Info: 4548-4 - A1C Performed By: #### L 501.9985, L500.4100, L501.9520 #### [facility] [address] [place], [address] Triglyceride [Mass/Vol] 187 mg/dL Normal [facility] Comment on above: Order Comment: Order Date: 11/16/24 Order Info: 4548-4 - A1C Result Comment: The drugs N-Acetylcysteine and Metamizole may falsely depress this assay. Serum Triglycerides Reference Interval Normal <150 mg/dL Borderline high 150 - 199 mg/dL High 200 - 499 mg/dL Very High > or = 500 mg/dL Performed By: #### L 501.9985, L500.4100, L501.9520 #### [facility] [address] [place], [address] Low density lipoprotein (LDL ) cholesterol measurementOrdered By: Lenin Hidalgo on 06-05-2024 Cholesterol in LDL [Mass/Vol] 117 mg/dL 0-130 [facility] Potassium measurementOrdered By: Lenin Hidalgo on 06-05-2024 Potassium [Moles/Vol] 4.8 mmol/L 3.5-5.1 [facility] Serum anion gap measurementO rdered By: Lenin Hidalgo on 06-05-2024 Anion gap [Moles/Vol] 4 mmol/L Low 5-15 [facility] Serum or plasma calcium kay urement (mass/volume)Ordered By: Lenin Hidalgo on 06-05-2024 Calcium [Mass/Vol] 9.8 mg/dL 8.5-10.1 [facility] Serum or plasma cholesterol measurement (mass/volume)Ordered By: Lenin Hidalgo on 06-05-2024 Cholesterol [Mass/Vol] 213 mg/dL High <200 [facility] Comment on above: <200 mg/dL Desirable 200-240 mg/dL Borderline >240 mg/dL High Risk Serum or plasma creatinine m easurement (mass/volume)Ordered By: Lenin Hidalgo on 06-05-2024 Creatinine [Mass/Vol] 1.44 mg/dL High 0.70-1.30 [facility] Comment on above: The validity of the calculated GFR & GFRAA in patients over 70 years has not been determined. Clinical correlation is essential. Serum or plasma urea nitroge n measurement (mass/volume)Ordered By: Lenin Hidalgo on 06-05-2024 Urea nitrogen [Mass/Vol] 27 mg/dL High 7-18 [facility] Sodium levelOrdered By: Lenin Hidalgo on 06-05-2024 Sodium [Moles/Vol] 133 mmol/L Low 136-145 [facility] Triglycerides measurementOrd ered By: Lenin Hidalgo on 06-05-2024 Triglyceride [Mass/Vol] 187 mg/dL <199 [facility] Comment on above: The drugs N-Acetylcy steine and Metamizole may falsely depress this assay.Serum Triglycerides Reference Interval Normal <150 mg/dL Borderline high 150 - 199 mg/dL High 200 - 499 mg/dL Very High > or = 500 mg/dL Very low density lipoprotein (VLDL) cholesterol measurementOrdered By: Lenin Hidalgo on 06-05-2024 VLDL Cholesterol 37 mg/dL 5-40 [facility] Echo Completeon 05-24-2024 Echo Complete [facility] [address] [place] [address] Echo Complete 05/24/24 1056 MR#: [id number] Acct: [id number] Name: OSMAN PADGETT Rep #: [id number] : 1950 74 From: Eugenia Pastrana MD Attending Dr: Dr. Lenin Hidalgo MD Status: REG CL I Ordering Dr: Lenin Hidalgo MD Date: 05/24/24 Location: [facility] Sex: M C Admitted: Reason For Study: [...] Referring Physician: Lenin Hidalgo Performed By: Allyssa Plascencia, VALENTIN, RVT 05/24/24 1310 Date Eugenia Pastrana MD CC: Dr. Lenin Hidalgo MD Date Dictated: 05/24/24 1056 Date Transcribed: 05/24/241309 Seo Intern: Signed Normal [facility] Basic Metabolic Profile (BMP )on 05-22-2024 BUN/CRE 21.8 RATIO High 10-20 [facility] Comment on above: Order Comment: Order Date: 04/14/24 Order Info: 0667-1 - BMP Performed By: #### L 500.2500 #### [facility] [address] [place], [address] CA,Total 9.2 mg/dL Normal 8.5-10.1 [facility] Comment on above: Order Comment: Order Date: 04/14/24 Order Info: 0667-1 - BMP Performed By: #### L 500.2500 #### [facility] [address] [place], [address] Chloride [Moles/Vol] 101 mmol/L Normal 98-107 [facility] Comment on above: Order Comment: Order Date: 04/14/24 Order Info: 0667-1 - BMP Performed By: #### L 500.2500 #### [facility] [address] [place], [address] CO2 [Moles/Vol] 26.0 mmol/L Normal 21.0-32.0 [facility] Comment on above: Order Comment: Order Date: 04/14/24 Order Info: 0667 - BMP Performed By: #### L 500.2500 #### [facility] [address] [place], [address] Creatinine [Mass/Vol] 1.47 mg/dL High 0.70-1.30 [facility] Comment on above: Order Comment: Order Date: 04/14/24 Order Info: 666-06 - BMP Result Comment: The validity of the calculated GFR GFRAA in patients over 70 years has not been determined. Clinical correlation is essential. Performed By: #### L 500.2500 #### [facility] [address] [place], [address] EST GFR - AA 60 mL/min Normal >60 [facility] Comment on above: Order Comment: Order Date: 04/14/24 Order Info: 666-06 - [facility] Result Comment: Afri can [place] GFR Calc Performed By: #### L 500.2500 #### [facility] [address] [place], [address] GAP 6 Normal 5-15 [facility] Comment on above: Order Comment: Order Date: 04/14/24 Order Info: 666-06 - BMP Performed By: #### L 500.2500 #### [facility] [address] [place], [address] GFR/1.73 sq M.predicted among non-blacks MDRD (S/P/Bld) [Vol rate/Area] 50 mL/min/{1.73_m2} Low >60 [facility] Comment on above: Order Comment: Order Date: 04/14/24 Order Info: 0667- - BMP Result Comment: Non- GFR Calc Performed By: #### L 500.2500 #### [facility] [address] [place], [address] Glucose [Mass/Vol] 218 mg/dL High 74-106 [facility] Comment on above: Order Comment: Order Date: 04/14/24 Order Info: 0667- - BMP Result Comment: Gluc ose result greater than or equal to 200 mg/dL suggests DIABETES MELLITUS per A.D.A. criteria. Performed By: #### L 500.2500 #### [facility] [address] [place], [address] Potassium [Moles/Vol] 5.0 mmol/L Normal 3.5-5.1 [facility] Comment on above: Order Comment: Order Date: 04/14/24 Order Info: 06 - BMP Performed By: #### L 500.2500 #### [facility] [address] [place], [address] Sodium [Moles/Vol] 133 mmol/L Low 136-145 [facility] Comment on above: Order Comment: Order Date: 04/14/24 Order Info: 06 - BMP Performed By: #### L 500.2500 #### [facility] [address] [place], [address] Urea nitrogen [Mass/Vol] 32 mg/dL High 7-18 [facility] Comment on above: Order Comment: Order Date: 04/14/24 Order Info: 06 - BMP Performed By: #### L 500.2500 #### [facility] [address] [place], [address] Basic Metabolic Profile (BMP )on 05-16-2024 BUN/CRE 20.0 RATIO Normal - [facility] Comment on above: Order Comment: Inter face Comments: standing order Order Date: 03/28/24 Order Info: 0667-1 - BMP Annual exam Order Date: 04/11/24 Order Info: [id number] - LIPID Comments: annual annual Performed By: #### L 500.2500 #### [facility] [address] [place], [address] CA,Total 9.5 mg/dL Normal 8.5-10.1 [facility] Comment on above: Order Comment: Inter face Comments: standing order Order Date: 03/28/24 Order Info: 0667- - BMP Annual exam Order Date: 04/11/24 Order Info: [id number] - LIPID Comments: annual annual Performed By: #### L 500.2500 #### [facility] [address] [place], [address] Chloride [Moles/Vol] 97 mmol/L Low 98-107 [facility] Comment on above: Order Comment: Inter face Comments: standing order Order Date: 03/28/24 Order Info: 0667- - BMP Annual exam Order Date: 04/11/24 Order Info: [id number] - LIPID Comments: annual annual Performed By: #### L 500.2500 #### [facility] [address] [place], [address] CO2 [Moles/Vol] 27.0 mmol/L Normal 21.0-32.0 [facility] Comment on above: Order Comment: Inter face Comments: standing order Order Date: 03/28/24 Order Info: 0667- - BMP Annual exam Order Date: 04/11/24 Order Info: [id number] - LIPID Comments: annual annual Performed By: #### L 500.2500 #### [facility] [address] [place], [address] Creatinine [Mass/Vol] 1.50 mg/dL High 0.70-1.30 [facility] Comment on above: Order Comment: Inter face Comments: standing order Order Date: 03/28/24 Order Info: 0667- - BMP Annual exam Order Date: 04/11/24 Order Info: [id number] - LIPID Comments: annual annual Result Comment: The validity of the calculated GFR GFRAA in patients over 70 years has not been determined. Clinical correlation is essential. Performed By: #### L 500.2500 #### [facility] [address] [place], [place], [address] EST GFR - AA 59 mL/min Low >60 [facility] Comment on above: Order Comment: Inter face Comments: standing order Order Date: 03/28/24 Order Info: 0667-1 - BMP Annual exam Order Date: 04/11/24 Order Info: [id number] - LIPID Comments: annual annual Result Comment: Afri can [place] GFR Calc Performed By: #### L 500.2500 #### [facility] [address] [place], [place], [address] GAP 4 Low 5-15 [facility] Comment on above: Order Comment: Inter face Comments: standing order Order Date: 03/28/24 Order Info: 0667-1 - BMP Annual exam Order Date: 04/11/24 Order Info: [id number] - LIPID Comments: annual annual Performed By: #### L 500.2500 #### [facility] [address] [place], [place], [address] GFR/1.73 sq M.predicted among non-blacks MDRD (S/P/Bld) [Vol rate/Area] 49 mL/min/{1.73_m2} Low >60 [facility] Comment on above: Order Comment: Inter face Comments: standing order Order Date: 03/28/24 Order Info: 0667-1 - BMP Annual exam Order Date: 04/11/24 Order Info: [id number] - LIPID Comments: annual annual Result Comment: Non- GFR Calc Performed By: #### L 500.2500 #### [facility] [address] [place], [place], [address] Glucose [Mass/Vol] 208 mg/dL High 74-106 [facility] Comment on above: Order Comment: Inter face Comments: standing order Order Date: 03/28/24 Order Info: 0667-1 - BMP Annual exam Order Date: 04/11/24 Order Info: [id number] - LIPID Comments: annual annual Result Comment: Gluc ose result greater than or equal to 200 mg/dL suggests DIABETES MELLITUS per A.D.A. criteria. Performed By: #### L 500.2500 #### [facility] [address] [place], [place], [address] Potassium [Moles/Vol] 4.9 mmol/L Normal 3.5-5.1 [facility] Comment on above: Order Comment: Inter face Comments: standing order Order Date: 03/28/24 Order Info: 0667-1 - BMP Annual exam Order Date: 04/11/24 Order Info: [id number] - LIPID Comments: annual annual Performed By: #### L 500.2500 #### [facility] [address] [place], [address] Sodium [Moles/Vol] 128 mmol/L Low 136-145 [facility] Comment on above: Order Comment: Inter face Comments: standing order Order Date: 03/28/24 Order Info: 0667-1 - BMP Annual exam Order Date: 04/11/24 Order Info: [id number] - LIPID Comments: annual annual Performed By: #### L 500.2500 #### [facility] [address] [place], [address] Urea nitrogen [Mass/Vol] 30 mg/dL High 7-18 [facility] Comment on above: Order Comment: Inter face Comments: standing order Order Date: 03/28/24 Order Info: 0667-1 - BMP Annual exam Order Date: 04/11/24 Order Info: [id number] - LIPID Comments: annual annual Performed By: #### L 500.2500 #### [facility] [address] [place], [address] CBC W/Diff, Automatedon 04-28 Absolute Lymph 1.23 X10 3/uL Normal 0.83-4.51 [facility] Comment on above: Order Comment: Order Date: 05/09/24Order Info: 018- - CBCD Performed By: #### L 500.4050, L100.0100 #### [facility] [address] [place], [address] Absolute Neut 4.7 X10 3/uL Normal 2.0-7.7 [facility] Comment on above: Order Comment: Order Date: 05/09/24Order Info: 018- - CBCD Performed By: #### L 500.4050, L100.0100 #### [facility] [address] [place], [address] Basophils/100 WBC (Bld) 0.6 % Normal 0-1 [facility] Comment on above: Order Comment: Order Date: 05/09/24Order Info: 4-1 - CBCD Performed By: #### L 500.4050, L100.0100 #### [facility] [address] [place], [address] Eosinophils/100 WBC (Bld) 2.9 % Normal 0-5 [facility] Comment on above: Order Comment: Order Date: 05/09/24Order Info: 183- - CBCD Performed By: #### L 500.4050, L100.0100 #### [facility] [address] [place], [address] Erythrocyte distribution width (RBC) [Ratio] 12.5 % Normal 11.6-14.6 [facility] Comment on above: Order Comment: Order Date: 05/09/24Order Info: 183- - CBCD Performed By: #### L 500.4050, L100.0100 #### [facility] [address] [place], [address] Hematocrit (Bld) [Volume fraction] 35.4 % Low 40-54 [facility] Comment on above: Order Comment: Order Date: 05/09/24Order Info: 0184- - CBCD Performed By: #### L 500.4050, L100.0100 #### [facility] [address] [place], [address] Hemoglobin (Bld) [Mass/Vol] 11.8 g/dL Low 13.0-16.5 [facility] Comment on above: Order Comment: Order Date: 05/09/24Order Info: 0184-1 - CBCD Performed By: #### L 500.4050, L100.0100 #### [facility] [address] [place], [address] IG% 0.300 Normal 0.0-0.9 [facility] Comment on above: Order Comment: Order Date: 05/09/24Order Info: 018- - CBCD Result Comment: IG% - Immature Granulocytes (promyelocytes, myelocytes and metamyelocytes) > 1% indicates that a LEFT SHIFT is Present. Performed By: #### L 500.4050, L100.0100 #### [facility] [address] [place], [address] Lymphocytes/100 WBC (Bld) 18.1 % Low 19-41 [facility] Comment on above: Order Comment: Order Date: 05/09/24Order Info: 018- - CBCD Performed By: #### L 500.4050, L100.0100 #### [facility] [address] [place], [address] MCH (RBC) [Entitic mass] 31.6 pg Normal 27.0-32.0 [facility] Comment on above: Order Comment: Order Date: 05/09/24Order Info: 018- - CBCD Performed By: #### L 500.4050, L100.0100 #### [facility] [address] [place], [address] MCHC (RBC) [Mass/Vol] 33.3 g/dL Normal 32-36 [facility] Comment on above: Order Comment: Order Date: 05/09/24Order Info: 018- - CBCD Performed By: #### L 500.4050, L100.0100 #### [facility] [address] [place], [address] MCV (RBC) [Entitic vol] 94.9 fL High 80-94 [facility] Comment on above: Order Comment: Order Date: 05/09/24Order Info: 018- - CBCD Performed By: #### L 500.4050, L100.0100 #### [facility] [address] [place], [address] Monocytes/100 WBC (Bld) 8.3 % Normal 0-10 [facility] Comment on above: Order Comment: Order Date: 05/09/24Order Info: 0184-1 - CBCD Performed By: #### L 500.4050, L100.0100 #### [facility] [address] [place], [address] Neutrophils/100 WBC (Bld) 69.8 % Normal 47-70 [facility] Comment on above: Order Comment: Order Date: 05/09/24Order Info: 4-1 - CBCD Performed By: #### L 500.4050, L100.0100 #### [facility] [address] [place], [address] Nucleated RBC (Bld) [#/Vol] 0 10*3/uL Normal 0-5 [facility] Comment on above: Order Comment: Order Date: 05/09/24Order Info: 183- - CBCD Performed By: #### L 500.4050, L100.0100 #### [facility] [address] [place], [address] Platelet mean volume (Bld) [Entitic vol] 8.8 fL Normal 6.2-12.0 [facility] Comment on above: Order Comment: Order Date: 05/09/24Order Info: 0184-1 - CBCD Performed By: #### L 500.4050, L100.0100 #### [facility] [address] [place], [address] Platelets (Bld) [#/Vol] 311 10*3/uL Normal 150-450 [facility] Comment on above: Order Comment: Order Date: 05/09/24Order Info: 0184-1 - CBCD Performed By: #### L 500.4050, L100.0100 #### [facility] [address] [place], [address] RBC (Bld) [#/Vol] 3.73 10*6/uL Low 4.6-6.2 [facility] Comment on above: Order Comment: Order Date: 05/09/24Order Info: 018-1 - CBCD Performed By: #### L 500.4050, L100.0100 #### [facility] [address] [place], [address] RDW SD 43.3 fl Normal 35.1-43.9 [facility] Comment on above: Order Comment: Order Date: 05/09/24Order Info: 018- - CBCD Performed By: #### L 500.4050, L100.0100 #### [facility] [address] [place], [address] WBC (Bld) [#/Vol] 6.8 10*3/uL Normal 4.4-11.0 [facility] Comment on above: Order Comment: Order Date: 05/09/24Order Info: 018- - CBCD Performed By: #### L 500.4050, L100.0100 #### [facility] [address] [place], [address] Comprehensive Metabolic Prof ilon 05-09-2024 Albumin [Mass/Vol] 3.9 g/dL Normal 3.2-5.0 [facility] Comment on above: Order Comment: Order Date: 05/09/24Order Info: 0786-1 - CMPOrder Info: [id number] - MGOrder Info: 3016-3 - TSH Performed By: #### L 500.4050, L100.0100 #### [facility] [address] [place], [address] Albumin/Globulin [Mass ratio] 1.1 {ratio} Normal 0.9-2.4 [facility] Comment on above: Order Comment: Order Date: 05/09/24Order Info: 0786-1 - CMPOrder Info: [id number] - MGOrder Info: 3016-3 - TSH Performed By: #### L 500.4050, L100.0100 #### [facility] [address] [place], [address] ALK P 53 U/L Normal 45-117 [facility] Comment on above: Order Comment: Order Date: 05/09/24Order Info: 86-1 - CMPOrder Info: [id number] - MGOrder Info: 3016-3 - TSH Performed By: #### L 500.4050, L100.0100 #### [facility] [address] [place], [address] ALT [Catalytic activity/Vol] 25 U/L Normal 16-61 [facility] Comment on above: Order Comment: Order Date: 05/09/24Order Info: 86-1 - CMPOrder Info: 74429-0 - MGOrder Info: 3016-3 - TSH Performed By: #### L 500.4050, L100.0100 #### [facility] [address] [place], [address] AST [Catalytic activity/Vol] 13 U/L Low 15-37 [facility] Comment on above: Order Comment: Order Date: 05/09/24Order Info: 86-1 - CMPOrder Info: [id number] - MGOrder Info: 3016-3 - TSH Performed By: #### L 500.4050, L100.0100 #### [facility] [address] [place], [address] Bilirubin [Mass/Vol] 0.40 mg/dL Normal 0.20-1.00 [facility] Comment on above: Order Comment: Order Date: 05/09/24Order Info: 0786-1 - CMPOrder Info: [id number] - MGOrder Info: 3016-3 - TSH Result Comment: For patients on eltrombopag therapy, use of Dimension [place] TBIL is not recommended. Performed By: #### L 500.4050, L100.0100 #### [facility] [address] [place], [address] BUN/CRE 22.8 RATIO High 10-20 [facility] Comment on above: Order Comment: Order Date: 05/09/24Order Info: 0786-1 - CMPOrder Info: 67621-0 - MGOrder Info: 3016-3 - TSH Performed By: #### L 500.4050, L100.0100 #### [facility] [address] [place], [address] CA,Total 9.5 mg/dL Normal 8.5-10.1 [facility] Comment on above: Order Comment: Order Date: 05/09/24Order Info: 86-1 - CMPOrder Info: [id number] - MGOrder Info: 3016-3 - TSH Performed By: #### L 500.4050, L100.0100 #### [facility] [address] [place], [address] Chloride [Moles/Vol] 96 mmol/L Low 98-107 [facility] Comment on above: Order Comment: Order Date: 05/09/24Order Info: 785-1 - CMPOrder Info: [id number] - MGOrder Info: 3016-3 - TSH Performed By: #### L 500.4050, L100.0100 #### [facility] [address] [place], [address] CO2 [Moles/Vol] 26.0 mmol/L Normal 21.0-32.0 [facility] Comment on above: Order Comment: Order Date: 05/09/24Order Info: 86-1 - CMPOrder Info: 27672-0 - MGOrder Info: 3016-3 - TSH Performed By: #### L 500.4050, L100.0100 #### [facility] [address] [place], [address] Creatinine [Mass/Vol] 1.36 mg/dL High 0.70-1.30 [facility] Comment on above: Order Comment: Order Date: 05/09/24Order Info: 0786-1 - CMPOrder Info: [id number] - MGOrder Info: 3016-3 - TSH Result Comment: The validity of the calculated GFR GFRAA in patients over 70 years has not been determined. Clinical correlation is essential. Performed By: #### L 500.4050, L100.0100 #### [facility] [address] [place], [address] EST GFR - AA 66 mL/min Normal >60 [facility] Comment on above: Order Comment: Order Date: 05/09/24Order Info: 0786-1 - CMPOrder Info: [id number] - MGOrder Info: 3016-3 - TSH Result Comment: Afri can [place] GFR Calc Performed By: #### L 500.4050, L100.0100 #### [facility] [address] [place], [address] GAP 7 Normal 5-15 [facility] Comment on above: Order Comment: Order Date: 05/09/24Order Info: 07-1 - CMPOrder Info: [id number] - MGOrder Info: 3016-3 - TSH Performed By: #### L 500.4050, L100.0100 #### [facility] [address] [place], [address] GFR/1.73 sq M.predicted among non-blacks MDRD (S/P/Bld) [Vol rate/Area] 55 mL/min/{1.73_m2} Low >60 [facility] Comment on above: Order Comment: Order Date: 05/09/24Order Info: 0786-1 - CMPOrder Info: [id number] - MGOrder Info: 3016-3 - TSH Result Comment: Non- GFR Calc Performed By: #### L 500.4050, L100.0100 #### [facility] [address] [place], [address] Globulin (S) [Mass/Vol] 3.7 g/dL Normal 2.2-4.2 [facility] Comment on above: Order Comment: Order Date: 05/09/24Order Info: 785- - CMPOrder Info: - MGOrder Info: 3015-3 - TSH Performed By: #### L 500.4050, L100.0100 #### [facility] [address] [place], [address] Glucose [Mass/Vol] 126 mg/dL High 74-106 [facility] Comment on above: Order Comment: Order Date: 05/09/24Order Info: 785- - CMPOrder Info: [id number] - MGOrder Info: 3015-3 - TSH Result Comment: Fast ing Glucose result greater than or equal to 126 mg/dL suggests DIABETES MELLITUS per A.D.A. criteria. Performed By: #### L 500.4050, L100.0100 #### [facility] [address] [place], [address] Potassium [Moles/Vol] 5.1 mmol/L Normal 3.5-5.1 [facility] Comment on above: Order Comment: Order Date: 05/09/24Order Info: 785-06 - CMPOrder Info: - MGOrder Info: 3015-3 - TSH Performed By: #### L 500.4050, L100.0100 #### [facility] [address] [place], [address] Sodium [Moles/Vol] 129 mmol/L Low 136-145 [facility] Comment on above: Order Comment: Order Date: 05/09/24Order Info: 785- - CMPOrder Info: - MGOrder Info: 3015-3 - TSH Performed By: #### L 500.4050, L100.0100 #### [facility] [address] [place], [address] T PROT 7.6 g/dL Normal 6.4-8.2 [facility] Comment on above: Order Comment: Order Date: 05/09/24Order Info: 785-1 - CMPOrder Info: - MGOrder Info: 3016-3 - TSH Performed By: #### L 500.4050, L100.0100 #### [facility] [address] [place], [address] Urea nitrogen [Mass/Vol] 31 mg/dL High 7-18 [facility] Comment on above: Order Comment: Order Date: 05/09/24Order Info: 785-1 - CMPOrder Info: - MGOrder Info: 3016-3 - TSH Performed By: #### L 500.4050, L100.0100 #### [facility] [address] [place], [address] Magnesiumon 05-09-2024 Magnesium [Mass/Vol] 1.7 mg/dL Normal 1.6-2.6 [facility] Comment on above: Order Comment: Order Date: 05/09/24Order Info: 785- - CMPOrder Info: - MGOrder Info: 3016-3 - TSH Performed By: #### L 500.4050, L100.0100 #### [facility] [address] [place], [address] Osmolality, Serumon 05-09-20 24 OSMOLALITY,SER 292 mOsm/KG Normal 280-301 [facility] Comment on above: Order Comment: Order Date: 05/09/24Order Info: 2692-2 - OS Performed By: #### L 500.4050, L100.0100 #### [facility] [address] [place], [address] Thyroid Stim Hormone (TSH)on 05-09-2024 TSH 0.453 uIU/mL Normal 0.358-3.74 0 [facility] Comment on above: Order Comment: Order Date: 05/09/24Order Info: 0786-1 - CMPOrder Info: - MGOrder Info: 3016-3 - TSH Performed By: #### L 500.4050, L100.0100 #### [facility] [address] [place], [address] Basic Metabolic Profile (BMP )on 04-21-2024 BUN/CRE 17.5 RATIO Normal 10-20 [facility] Comment on above: Performed By: #### L 500.4050, L100.0100 #### [facility] [address] [place], [address] CA,Total 9.4 mg/dL Normal 8.5-10.1 [facility] Comment on above: Performed By: #### L 500.4050, L100.0100 #### [facility] [address] [place], [address] Chloride [Moles/Vol] 102 mmol/L Normal 98-107 [facility] Comment on above: Performed By: #### L 500.4050, L100.0100 #### [facility] [address] [place], [address] CO2 [Moles/Vol] 28.0 mmol/L Normal 21.0-32.0 [facility] Comment on above: Performed By: #### L 500.4050, L100.0100 #### [facility] [address] [place], [address] Creatinine [Mass/Vol] 1.26 mg/dL Normal 0.70-1.30 [facility] Comment on above: Result Comment: The validity of the calculated GFR GFRAA in patients over 70 years has not been determined. Clinical correlation is essential. Performed By: #### L 500.4050, L100.0100 #### [facility] [address] [place], [address] EST GFR - AA 72 mL/min Normal >60 [facility] Comment on above: Result Comment: Afri can [place] GFR Calc Performed By: #### L 500.4050, L100.0100 #### [facility] [address] [place], [address] GAP 6 Normal 5-15 [facility] Comment on above: Performed By: #### L 500.4050, L100.0100 #### [facility] [address] [place], [address] GFR/1.73 sq M.predicted among non-blacks MDRD (S/P/Bld) [Vol rate/Area] 60 mL/min/{1.73_m2} Normal >60 [facility] Comment on above: Result Comment: Non- GFR Calc Performed By: #### L 500.4050, L100.0100 #### [facility] [address] [place], [address] Glucose [Mass/Vol] 149 mg/dL High 74-106 [facility] Comment on above: Result Comment: Fast ing Glucose result greater than or equal to 126 mg/dL suggests DIABETES MELLITUS per A.D.A. criteria. Performed By: #### L 500.4050, L100.0100 #### [facility] [address] [place], [address] Potassium [Moles/Vol] 4.8 mmol/L Normal 3.5-5.1 [facility] Comment on above: Performed By: #### L 500.4050, L100.0100 #### [facility] [address] [place], [address] Sodium [Moles/Vol] 135 mmol/L Low 136-145 [facility] Comment on above: Performed By: #### L 500.4050, L100.0100 #### [facility] [address] [place], [address] Urea nitrogen [Mass/Vol] 22 mg/dL High 7-18 [facility] Comment on above: Performed By: #### L 500.4050, L100.0100 #### [facility] [address] [place], [address] Foot min 3 Viewson 4 Foot min 3 Views [facility]iology [address] [place] [address] Foot min 3 Views MR#: [id number] Acct: [id number] Name: OSMAN PADGETT Rep #: [id number] : [id number] M 74 From: Nikko Desouza PCP: Dr. 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 Lenin Hidalgo MD Seo Intern: Signed Normal [facility] Comprehensive Metabolic Prof ilon 03-28-2024 Albumin [Mass/Vol] 3.7 g/dL Normal 3.2-5.0 [facility] Comment on above: Order Comment: Order Date: 03/14/24Order Info: 0667-1 - [facility] [place] Performed By: #### L 500.4050, L100.0100 #### [facility] [address] [place], [address] Albumin/Globulin [Mass ratio] 1.1 {ratio} Normal 0.9-2.4 [facility] Comment on above: Order Comment: Order Date: 03/14/24Order Info: 0667-1 - BMP Performed By: #### L 500.4050, L100.0100 #### [facility] [address] [place], [address] ALK P 46 U/L Normal 45-117 [facility] Comment on above: Order Comment: Order Date: 03/14/24Order Info: 06- - BMP Performed By: #### L 500.4050, L100.0100 #### [facility] [address] [place], [address] ALT [Catalytic activity/Vol] 18 U/L Normal 16-61 [facility] Comment on above: Order Comment: Order Date: 03/14/24Order Info: 0667- - BMP Performed By: #### L 500.4050, L100.0100 #### [facility] [address] [place], [address] AST [Catalytic activity/Vol] 12 U/L Low 15-37 [facility] Comment on above: Order Comment: Order Date: 03/14/24Order Info: 0667- - BMP Performed By: #### L 500.4050, L100.0100 #### [facility] [address] [place], [address] Bilirubin [Mass/Vol] 0.30 mg/dL Normal 0.20-1.00 [facility] Comment on above: Order Comment: Order Date: 03/14/24Order Info: 0667-1 - BMP Result Comment: For patients on eltrombopag therapy, use of Dimension [place] TBIL is not recommended. Performed By: #### L 500.4050, L100.0100 #### [facility] [address] [place], [address] BUN/CRE 20.3 RATIO High 10-20 [facility] Comment on above: Order Comment: Order Date: 03/14/24Order Info: 666-06 - BMP Performed By: #### L 500.4050, L100.0100 #### [facility] [address] [place], [address] CA,Total 9.6 mg/dL Normal 8.5-10.1 [facility] Comment on above: Order Comment: Order Date: 03/14/24Order Info: 666-06 - BMP Performed By: #### L 500.4050, L100.0100 #### [facility] [address] [place], [address] Chloride [Moles/Vol] 100 mmol/L Normal 98-107 [facility] Comment on above: Order Comment: Order Date: 03/14/24Order Info: 666-06 - BMP Performed By: #### L 500.4050, L100.0100 #### [facility] [address] [place], [address] CO2 [Moles/Vol] 26.0 mmol/L Normal 21.0-32.0 [facility] Comment on above: Order Comment: Order Date: 03/14/24Order Info: 666-06 - BMP Performed By: #### L 500.4050, L100.0100 #### [facility] [address] [place], [address] Creatinine [Mass/Vol] 1.28 mg/dL Normal 0.70-1.30 [facility] Comment on above: Order Comment: Order Date: 03/14/24Order Info: 06 - BMP Result Comment: The validity of the calculated GFR GFRAA in patients over 70 years has not been determined. Clinical correlation is essential. Performed By: #### L 500.4050, L100.0100 #### [facility] [address] [place], [address] EST GFR - AA 71 mL/min Normal >60 [facility] Comment on above: Order Comment: Order Date: 03/14/24Order Info: 0667-1 - BMP Result Comment: Afri can [place] GFR Calc Performed By: #### L 500.4050, L100.0100 #### [facility] [address] [place], [address] GAP 7 Normal 5-15 [facility] Comment on above: Order Comment: Order Date: 03/14/24Order Info: 0667- - BMP Performed By: #### L 500.4050, L100.0100 #### [facility] [address] [place], [address] GFR/1.73 sq M.predicted among non-blacks MDRD (S/P/Bld) [Vol rate/Area] 59 mL/min/{1.73_m2} Low >60 [facility] Comment on above: Order Comment: Order Date: 03/14/24Order Info: 0667- - BMP Result Comment: Non- GFR Calc Performed By: #### L 500.4050, L100.0100 #### [facility] [address] [place], [address] Globulin (S) [Mass/Vol] 3.5 g/dL Normal 2.2-4.2 [facility] Comment on above: Order Comment: Order Date: 03/14/24Order Info: 0667-1 - BMP Performed By: #### L 500.4050, L100.0100 #### [facility] [address] [place], [address] Glucose [Mass/Vol] 168 mg/dL High 74-106 [facility] Comment on above: Order Comment: Order Date: 03/14/24Order Info: 0667- - BMP Result Comment: Fast ing Glucose result greater than or equal to 126 mg/dL suggests DIABETES MELLITUS per A.D.A. criteria. Performed By: #### L 500.4050, L100.0100 #### [facility] [address] [place], [address] Potassium [Moles/Vol] 4.3 mmol/L Normal 3.5-5.1 [facility] Comment on above: Order Comment: Order Date: 03/14/24Order Info: 06- - BMP Performed By: #### L 500.4050, L100.0100 #### [facility] [address] [place], [address] Sodium [Moles/Vol] 133 mmol/L Low 136-145 [facility] Comment on above: Order Comment: Order Date: 03/14/24Order Info: 666-06 - BMP Performed By: #### L 500.4050, L100.0100 #### [facility] [address] [place], [address] T PROT 7.2 g/dL Normal 6.4-8.2 [facility] Comment on above: Order Comment: Order Date: 03/14/24Order Info: 666-06 - BMP Performed By: #### L 500.4050, L100.0100 #### [facility] [address] [place], [address] Urea nitrogen [Mass/Vol] 26 mg/dL High 7-18 [facility] Comment on above: Order Comment: Order Date: 03/14/24Order Info: 0667 - BMP Performed By: #### L 500.4050, L100.0100 #### [facility] [address] [place], [address] Hemoglobin A1con 03-28-2024 HbA1c (Bld) [Mass fraction] 6.8 % High 3.8-5.6 [facility] Comment on above: Result Comment: Norm al < 5.7 % Prediabetic 5.7 - 6.4 % Diabetic >or= 6.5 % Please note range changes. Performed By: #### L 500.4050, L100.0100 #### [facility] [address] [place], [address] Osmolality, Serumon 03-28-20 24 OSMOLALITY,SER 295 mOsm/KG Normal 280-301 [facility] Comment on above: Performed By: #### L 500.4050, L100.0100 #### [facility] [address] [place], [address] Osmolality, Urineon 03-28-20 24 OSMOLALITY,UR 416 mOsm/KG Normal [facility] Comment on above: Result Comment: Normal Urine Reference Ranges Random: 50 - 1200 mOsm/kg H20 depending on fluid intake Random: >850 mOsm/kg after 12 hour fluid restriction 24 hour: 300 - 900 mOsm/kg H2O Performed By: #### L 500.4050, L100.0100 #### [facility] [address] [place], [address] Urine Sodiumon 03-28-2024 Sodium (U) [Moles/Vol] 65 mmol/L Normal Not Establ. [facility] Comment on above: Performed By: #### L 500.4050, L100.0100 #### [facility] [address] [place], [address] Basic Metabolic Profile (BMP )on 03-14-2024 BUN Normal 7-18 [facility] Comment on above: Order Comment: Order Date: 03/14/24Order Info: 0667-1 - BMP Result Comment: CMP ALREADY ORDERED-DUPLICATE TESTS Performed By: #### L 500.4050, L100.0100 #### [facility] [address] [place], [address] BUN/CRE Normal 10- [facility] Comment on above: Order Comment: Order Date: 03/14/24Order Info: 0667-1 - BMP Result Comment: CMP ALREADY ORDERED-DUPLICATE TESTS Performed By: #### L 500.4050, L100.0100 #### [facility] [address] [place], [address] CA,Total Normal 8.5-10.1 [facility] Comment on above: Order Comment: Order Date: 03/14/24Order Info: 666- - BMP Result Comment: CMP ALREADY ORDERED-DUPLICATE TESTS Performed By: #### L 500.4050, L100.0100 #### [facility] [address] [place], [address] CL Normal 98-107 [facility] Comment on above: Order Comment: Order Date: 03/14/24Order Info: 666-06 - BMP Result Comment: CMP ALREADY ORDERED-DUPLICATE TESTS Performed By: #### L 500.4050, L100.0100 #### [facility] [address] [place], [address] CO2 Normal 21.0-32.0 [facility] Comment on above: Order Comment: Order Date: 03/14/24Order Info: 666-06 - BMP Result Comment: CMP ALREADY ORDERED-DUPLICATE TESTS Performed By: #### L 500.4050, L100.0100 #### [facility] [address] [place], [address] CREAT,SERUM Normal 0.70-1.30 [facility] Comment on above: Order Comment: Order Date: 03/14/24Order Info: 666-06 - BMP Result Comment: CMP ALREADY ORDERED-DUPLICATE TESTS Performed By: #### L 500.4050, L100.0100 #### [facility] [address] [place], [address] EST GFR Normal >60 [facility] Comment on above: Order Comment: Order Date: 03/14/24Order Info: 666- - BMP Result Comment: CMP ALREADY ORDERED-DUPLICATE TESTS Performed By: #### L 500.4050, L100.0100 #### [facility] [address] [place], [address] EST GFR - AA Normal >60 [facility] Comment on above: Order Comment: Order Date: 03/14/24Order Info: 666- - BMP Result Comment: CMP ALREADY ORDERED-DUPLICATE TESTS Performed By: #### L 500.4050, L100.0100 #### [facility] [address] [place], [address] GAP Normal 5-15 [facility] Comment on above: Order Comment: Order Date: 03/14/24Order Info: 666- - BMP Result Comment: CMP ALREADY ORDERED-DUPLICATE TESTS Performed By: #### L 500.4050, L100.0100 #### [facility] [address] [place], [address] GLU Normal 74-106 [facility] Comment on above: Order Comment: Order Date: 03/14/24Order Info: 666- - BMP Result Comment: CMP ALREADY ORDERED-DUPLICATE TESTS Performed By: #### L 500.4050, L100.0100 #### [facility] [address] [place], [address] Potassium Normal 3.5-5.1 [facility] Comment on above: Order Comment: Order Date: 03/14/24Order Info: 666- - BMP Result Comment: CMP ALREADY ORDERED-DUPLICATE TESTS Performed By: #### L 500.4050, L100.0100 #### [facility] [address] [place], [address] Basic Metabolic Profile (BMP) Normal 136-145 [facility] Comment on above: Order Comment: Order Date: 03/14/24Order Info: 666- - BMP Result Comment: CMP ALREADY ORDERED-DUPLICATE TESTS Performed By: #### L 500.4050, L100.0100 #### [facility] [address] [place], [address] Comprehensive Metabolic Prof ilon 03-14-2024 Albumin [Mass/Vol] 3.7 g/dL Normal 3.2-5.0 [facility] Comment on above: Order Comment: Order Date: 11/16/24 Order Info: 4548-4 - A1C Performed By: #### L 501.9985, L500.4100, L501.9520 #### [facility] [address] [place], [address] Albumin/Globulin [Mass ratio] 1.0 {ratio} Normal 0.9-2.4 [facility] Comment on above: Order Comment: Order Date: 11/16/24 Order Info: 4548-4 - A1C Performed By: #### L 501.9985, L500.4100, L501.9520 #### [facility] [address] [place], [address] ALK P 48 U/L Normal 45-117 [facility] Comment on above: Order Comment: Order Date: 11/16/24 Order Info: 4548-4 - A1C Performed By: #### L 501.9985, L500.4100, L501.9520 #### [facility] [address] [place], [address] ALT [Catalytic activity/Vol] 17 U/L Normal 16-61 [facility] Comment on above: Order Comment: Order Date: 11/16/24 Order Info: 4548-4 - A1C Performed By: #### L 501.9985, L500.4100, L501.9520 #### [facility] [address] [place], [address] AST [Catalytic activity/Vol] 9 U/L Low 15-37 [facility] Comment on above: Order Comment: Order Date: 11/16/24 Order Info: 4548-4 - A1C Performed By: #### L 501.9985, L500.4100, L501.9520 #### [facility] [address] [place], [address] Bilirubin [Mass/Vol] 0.40 mg/dL Normal 0.20-1.00 [facility] Comment on above: Order Comment: Order Date: 11/16/24 Order Info: 4548-4 - A1C Result Comment: For patients on eltrombopag therapy, use of Dimension [place] TBIL is not recommended. Performed By: #### L 501.9985, L500.4100, L501.9520 #### [facility] [address] [place], [address] BUN/CRE 17.8 RATIO Normal 10-20 [facility] Comment on above: Order Comment: Order Date: 11/16/24 Order Info: 4548-4 - A1C Performed By: #### L 501.9985, L500.4100, L501.9520 #### [facility] [address] [place], [address] CA,Total 9.2 mg/dL Normal 8.5-10.1 [facility] Comment on above: Order Comment: Order Date: 11/16/24 Order Info: 4548-4 - A1C Performed By: #### L 501.9985, L500.4100, L501.9520 #### [facility] [address] [place], [address] Chloride [Moles/Vol] 100 mmol/L Normal 98-107 [facility] Comment on above: Order Comment: Order Date: 11/16/24 Order Info: 4548-4 - A1C Performed By: #### L 501.9985, L500.4100, L501.9520 #### [facility] [address] [place], [address] CO2 [Moles/Vol] 25.0 mmol/L Normal 21.0-32.0 [facility] Comment on above: Order Comment: Order Date: 11/16/24 Order Info: 4548-4 - A1C Performed By: #### L 501.9985, L500.4100, L501.9520 #### [facility] [address] [place], [address] Creatinine [Mass/Vol] 1.29 mg/dL Normal 0.70-1.30 [facility] Comment on above: Order Comment: Order Date: 11/16/24 Order Info: 4548-4 - A1C Result Comment: The validity of the calculated GFR GFRAA in patients over 70 years has not been determined. Clinical correlation is essential. Performed By: #### L 501.9985, L500.4100, L501.9520 #### [facility] [address] [place], [address] EST GFR - AA 70 mL/min Normal >60 [facility] Comment on above: Order Comment: Order Date: 11/16/24 Order Info: 4548-4 - A1C Result Comment: Afri can [place] GFR Calc Performed By: #### L 501.9985, L500.4100, L501.9520 #### [facility] [address] [place], [address] GAP 7 Normal 5-15 [facility] Comment on above: Order Comment: Order Date: 11/16/24 Order Info: 4548-4 - A1C Performed By: #### L 501.9985, L500.4100, L501.9520 #### [facility] [address] [place], [address] GFR/1.73 sq M.predicted among non-blacks MDRD (S/P/Bld) [Vol rate/Area] 58 mL/min/{1.73_m2} Low >60 [facility] Comment on above: Order Comment: Order Date: 11/16/24 Order Info: 4548-4 - A1C Result Comment: Non- GFR Calc Performed By: #### L 501.9985, L500.4100, L501.9520 #### [facility] [address] [place], [address] Globulin (S) [Mass/Vol] 3.6 g/dL Normal 2.2-4.2 [facility] Comment on above: Order Comment: Order Date: 11/16/24 Order Info: 4548-4 - A1C Performed By: #### L 501.9985, L500.4100, L501.9520 #### [facility] [address] [place], [address] Glucose [Mass/Vol] 196 mg/dL High 74-106 [facility] Comment on above: Order Comment: Order Date: 11/16/24 Order Info: 4548-4 - A1C Result Comment: Fast ing Glucose result greater than or equal to 126 mg/dL suggests DIABETES MELLITUS per A.D.A. criteria. Performed By: #### L 501.9985, L500.4100, L501.9520 #### [facility] [address] [place], [address] Potassium [Moles/Vol] 4.5 mmol/L Normal 3.5-5.1 [facility] Comment on above: Order Comment: Order Date: 11/16/24 Order Info: 4548-4 - A1C Performed By: #### L 501.9985, L500.4100, L501.9520 #### [facility] [address] [place], [address] Sodium [Moles/Vol] 132 mmol/L Low 136-145 [facility] Comment on above: Order Comment: Order Date: 11/16/24 Order Info: 4548-4 - A1C Performed By: #### L 501.9985, L500.4100, L501.9520 #### [facility] [address] [place], [address] T PROT 7.3 g/dL Normal 6.4-8.2 [facility] Comment on above: Order Comment: Order Date: 11/16/24 Order Info: 4548-4 - A1C Performed By: #### L 501.9985, L500.4100, L501.9520 #### [facility] [address] [place], [address] Urea nitrogen [Mass/Vol] 23 mg/dL High 7-18 [facility] Comment on above: Order Comment: Order Date: 11/16/24 Order Info: 4548-4 - A1C Performed By: #### L 501.9985, L500.4100, L501.9520 #### [facility] [address] [place], [address] Hemoglobin A1con 03-14-2024 HbA1c (Bld) [Mass fraction] 6.9 % High 3.8-5.6 [facility] Comment on above: Order Comment: Order Date: 11/16/24 Order Info: 4548-4 - A1C Result Comment: Norm al < 5.7 % Prediabetic 5.7 - 6.4 % Diabetic >or= 6.5 % Please note range changes. Performed By: #### L 501.9985, L500.4100, L501.9520 #### [facility] [address] [place], [address] Osmolality, Serumon 03-14-20 24 OSMOLALITY,SER 294 mOsm/KG Normal 280-301 [facility] Comment on above: Order Comment: Order Date: 11/16/24 Order Info: 4548-4 - A1C Performed By: #### L 501.9985, L500.4100, L501.9520 #### [facility] [address] [place], [address] Osmolality, Urineon 03-14-20 24 OSMOLALITY,UR 414 mOsm/KG Normal [facility] Comment on above: Order Comment: Order Date: 11/16/24 Order Info: 4548-4 - A1C Result Comment: Normal Urine Reference Ranges Random: 50 - 1200 mOsm/kg H20 depending on fluid intake Random: >850 mOsm/kg after 12 hour fluid restriction 24 hour: 300 - 900 mOsm/kg H2O Performed By: #### L 501.9985, L500.4100, L501.9520 #### [facility] [address] [place], [place], [address] Urine Sodiumon 09-17-2024 Sodium (U) [Moles/Vol] 89 mmol/L Normal Not Establ. [facility] Comment on above: Order Comment: Order Date: 11/16/24 Order Info: 4548-4 - A1C Performed By: #### L 501.9985, L500.4100, L501.9520 #### [facility] [address] [place], [address] Absolute lymphocyte countOrd ered By: Fredrick Dorsey on 11-07-2023 Lymphocytes Auto (Unsp spec) [#/Vol] 1.25 10*3/uL 0.83-4.51 [facility] Automated lymphocyte count a s percentage of total leukocytesOrdered By: Fredrick Dorsey on 11-07-2023 Lymphocytes/100 WBC Auto (Unsp spec) 11.4 % 19-41 [facility] Basophil percentageOrdered B y: Fredrick Dorsey on 11-07-2023 Basophil percentage 0 SEEN /hpf 0-5 [facility] Basophils/100 WBC (Bld) 0.6 % 0-1 [facility] Bilirubin [Mass/Vol] 0.50 mg/dL 0.20-1.00 [facility] Comment on above: For patients on eltr ombopag therapy, use of Dimension [place] TBIL is not recommended. Chloride [Moles/Vol] 94 mmol/L 98-107 [facility] Eosinophils/100 WBC (Bld) 1.2 % 0-5 [facility] Glucose [Mass/Vol] 142 mg/dL 74-106 [facility] Comment on above: Fasting Glucose resu lt greater than or equal to 126 mg/dL suggests DIABETES MELLITUS per A.D.A. criteria. Hemoglobin (Bld) [Mass/Vol] 10.7 g/dL 13.0-16.5 [facility] Monocytes/100 WBC (Bld) 7.5 % 0-10 [facility] Neutrophils (Bld) [#/Vol] 8.7 10*3/uL 2.0-7.7 [facility] Neutrophils/100 WBC (Bld) 78.8 % 47-70 [facility] Potassium [Moles/Vol] 4.8 mmol/L 3.5-5.1 [facility] Protein [Mass/Vol] 7.0 g/dL 6.4-8.2 [facility] Sodium [Moles/Vol] 126 mmol/L 136-145 [facility] WBC (Bld) [#/Vol] 11.0 10*3/uL 4.4-11.0 [facility] Bilirubin Test strip Ql (U)O rdered By: Fredrick Dorsey on 11-07-2023 Bilirubin Ql (U) Negative Negative [facility] Determination of erythrocyte mean corpuscular volume (MCV)Ordered By: Fredrick Dorsey on 11-07-2023 MCV (RBC) [Entitic vol] 91.2 fL 80-94 [facility] Erythrocyte distribution wid th ratioOrdered By: Fredrick Dorsey on 11-07-2023 Erythrocyte distribution width (RBC) [Ratio] 11.6 % 11.6-14.6 [facility] Erythrocyte distribution wid th standard deviationOrdered By: Fredrick Dorsey on 11-07-2023 Erythrocyte distribution width (RBC) [Entitic vol] 38.9 fL 35.1-43.9 [facility] Hematocrit Auto (Bld) [Volum e fraction]Ordered By: Fredrick Dorsey on 11-07-2023 Hematocrit (Bld) [Volume fraction] 30.9 % 40-54 [facility] [facility] Imm[facility]ocytes/100 WB C Auto (Bld)Ordered By: Fredrick Dorsey on 11-07-2023 Immature granulocytes/100 WBC (Bld) 0.500 % 0.0-0.9 [facility] Comment on above: IG% - Immature Granu locytes (promyelocytes, myelocytes and metamyelocytes) > 1% indicates that a LEFT SHIFT is Present. Ketones Test strip Ql (U)Ord ered By: Fredrick Dorsey on 11-07-2023 Ketones Ql (U) Negative Negative [facility] Laboratory - Chemistry and C hemistry - challengeOrdered By: Fredrick Dorsey on 11-07-2023 Albumin/Globulin [Mass ratio] 1.2 {ratio} 0.9-2.4 [facility] ALP [Catalytic activity/Vol] 45 U/L 45-117 [facility] ALT [Catalytic activity/Vol] 20 U/L 16-61 [facility] CO2 [Moles/Vol] 23.0 mmol/L 21.0-32.0 [facility] Globulin (S) [Mass/Vol] 3.2 g/dL 2.2-4.2 [facility] Lipase [Catalytic activity/Vol] 30 U/L 13-75 [facility] Comment on above: Please note:LIPASE r evised reference range effective 22. New Lipase methodology. Expected to produce lower values than the previous assay method. NEW Reference Range: 13 - 75 U/L Urea nitrogen/Creatinine [Mass ratio] 21.9 mg/mg 10-20 [facility] Laboratory - Drug toxicology Ordered By: Fredrick Dorsey on 11-07-2023 Amphetamines Ql (U) Negative <1000 ng/mL [facility] Benzodiazepines Ql (U) Negative < 200 ng/mL [facility] Cannabinoids Screen Ql (U) Positive < 50 ng/mL [facility] Cocaine Ql (U) Negative < 300 ng/mL [facility] Opiates Ql (U) Negative < 300 ng/mL [facility] Laboratory - Hematology and Cell countsOrdered By: Fredrick Dorsey on 11-07-2023 MCH (RBC) [Entitic mass] 31.6 pg 27.0-32.0 [facility] MCHC (RBC) [Mass/Vol] 34.6 g/dL 32-36 [facility] Nucleated RBC/100 WBC (Bld) [Ratio] 0 % 0-5 [facility] Platelet mean volume (Bld) [Entitic vol] 8.3 fL 6.2-12.0 [facility] Platelets (Bld) [#/Vol] 289 10*3/uL 150-450 [facility] Mucus LM Ql (Urine sed)Order ed By: Fredrick Dorsey on 11-07-2023 Mucus Ql (Urine sed) 0 SEEN /hpf [facility] Nitrite Test strip Ql (U)Ord ered By: Fredrick Dorsey on 11-07-2023 Nitrite Ql (U) Negative Negative [facility] No Panel InformationOrdered By: Fredrick Dorsey on 11-07-2023 MDMA (Ecstasy) Screen Negative < 500 ng/mL [facility] Urine Barbiturates Screen Negative < 200 ng/mL [facility] Urine Drug Screen Comment [facility] Comment on above: CONFIRMATORY TESTING FOR ALL [...] Urine Methadone Screen Negative < 300 ng/mL [facility] Urine RBC 0 SEEN /hpf 0-5 [facility] Estimated Creatinine Clearance Calc 80.51 ml/min [facility] Estimated GFR (MDRD) Amer 89 mL/min >60 [facility] Comment on above: GFR Calc Estimated GFR (MDRD) Non-Af Amer 74 mL/min >60 [facility] Comment on above: Non- GFR Calc Ethyl Alcohol Level < 3.0 mg/dL [facility] Comment on above: The serum:whole bloo d ethanol ratio is approximately 1.14and varies slightly with hematocrit. Medical Alcohol reference interval and critical value innon-tolerant individuals; 50 - 100 Impairment 100 Intoxication 100 - 250 Severe Poisoning 250 - 400 Deep/possible fatal coma Free Triiodothyronine (T3) pg/dL 3.4 pg/mL 2.18-3.98 [facility] Troponin I High Sensitivity 13 pg/mL 3.0-78.0 [facility] Comment on above: Please Note: New Jeni t Units and Gender Specific Reference Ranges. For more information see Policy Stat Procedure [place] High Sensitivity Troponin (TNIH) and attachments. Protein Test strip Ql (U)Ord ered By: Fredrick Dorsey on 11-07-2023 Protein Ql (U) Negative Negative [facility] RBC Auto (Bld) [#/Vol]Ordere d By: Fredrick Dorsey on 11-07-2023 RBC (Bld) [#/Vol] 3.39 10*6/uL 4.6-6.2 [facility] Serum or plasma calcium kay urement (mass/volume)Ordered By: Fredrick Dorsey on 11-07-2023 Calcium [Mass/Vol] 8.9 mg/dL 8.5-10.1 [facility] Serum or plasma creatinine m easurement (mass/volume)Ordered By: Fredrick Dorsey on 11-07-2023 Creatinine [Mass/Vol] 1.05 mg/dL 0.70-1.30 [facility] Comment on above: The validity of the calculated GFR & GFRAA in patients over 70 years has not been determined. Clinical correlation is essential. Serum or plasma thyroid stim ulating hormone (TSH) measurement (units/volume)Ordered By: Fredrick Dorsey on 11-07-2023 TSH Qn 0.26 uIU/mL 0.358-3.74 [facility] Serum or plasma urea nitroge n measurement (mass/volume)Ordered By: Fredrick Dorsey on 11-07-2023 Urea nitrogen [Mass/Vol] 23 mg/dL 7-18 [facility] Squamous epithelial cells de tection in urine sediment by light microscopyOrdered By: Fredrick Dorsey on 11-07-2023 Epithelial cells.squamous LM Ql (Urine sed) 0 SEEN /hpf 0-5 [facility] Thin prep Papanicolaou smear with manual screeningOrdered By: Fredrick Dorsey on 11-07-2023 Thin prep Papanicolaou smear with manual screening 3.8 g/dL 3.2-5.0 [facility] Thin prep Papanicolaou smear with manual screening 16 U/L 15-37 [facility] Thin prep Papanicolaou smear with manual screening 9 5-15 [facility] Thin prep Papanicolaou smear with manual screening 1.01 ng/dL 0.76-1.46 [facility] Urine blood detectionOrdered By: Fredrick Dorsey on 11-07-2023 RBC Ql (U) Negative Negative [facility] Urine clarityOrdered By: Cory Dorsey on 11-07-2023 Clarity (U) Clear Clear [facility] Urine color determinationOrd ered By: Fredrick Dorsey on 11-07-2023 Color (U) Straw Yellow [facility] Urine glucose detectionOrder ed By: Fredrick Dorsey on 11-07-2023 Glucose Ql (U) Normal mg/dl Normal [facility] Urine leukocyte esterase det ection by dipstickOrdered By: Fredrick Dorsey on 11-07-2023 Leukocyte esterase Test strip Ql (U) Negative Negative [facility] Urine pHOrdered By: Fredrick storey on 11-07-2023 pH (U) 7.0 [pH] 5.0 - 8.0 [facility] Urine phencyclidine (PCP) de tectionOrdered By: Fredrick Dorsey on 11-07-2023 Phencyclidine Ql (U) Negative < 25 ng/mL [facility] Urine sediment bacteria coun t by microscopy (number/high power field)Ordered By: Fredrick Dorsey on 11-07-2023 Bacteria LM.HPF (Urine sed) [#/Area] 0 /[HPF] None Seen [facility] Urine specific gravity measu rementOrdered By: Fredrick Dorsey on 11-07-2023 Specific gravity (U) [Rel density] 1.020 1.002-1.03 0 [facility] Urine urobilinogen measureme ntOrdered By: Fredrick Dorsey on 11-07-2023 Urobilinogen Ql (U) Normal mg/dl Normal [facility] Basophil percentageOrdered B y: Noble Figueroa on 11-06-2023 Bilirubin [Mass/Vol] 0.30 mg/dL 0.20-1.00 [facility] Comment on above: For patients on eltr ombopag therapy, use of Dimension [place] TBIL is not recommended. Chloride [Moles/Vol] 97 mmol/L 98-107 [facility] Glucose [Mass/Vol] 248 mg/dL 74-106 [facility] Comment on above: Glucose result great er than or equal to 200 mg/dLsuggests DIABETES MELLITUS per A.D.A. criteria. Hemoglobin (Bld) [Mass/Vol] 11.1 g/dL 13.0-16.5 [facility] Potassium [Moles/Vol] 5.1 mmol/L 3.5-5.1 [facility] Protein [Mass/Vol] 7.2 g/dL 6.4-8.2 [facility] Sodium [Moles/Vol] 128 mmol/L 136-145 [facility] WBC (Bld) [#/Vol] 9.8 10*3/uL 4.4-11.0 [facility] Determination of erythrocyte mean corpuscular volume (MCV)Ordered By: Noble Figueroa on 11-06-2023 MCV (RBC) [Entitic vol] 92.8 fL 80-94 [facility] Erythrocyte distribution wid th ratioOrdered By: Noble Figueroa on 11-06-2023 Erythrocyte distribution width (RBC) [Ratio] 11.9 % 11.6-14.6 [facility] Erythrocyte distribution wid th standard deviationOrdered By: Noble Figueroa on 11-06-2023 Erythrocyte distribution width (RBC) [Entitic vol] 40.7 fL 35.1-43.9 [facility] Hematocrit Auto (Bld) [Volum e fraction]Ordered By: Noble Figueroa on 11-06-2023 Hematocrit (Bld) [Volume fraction] 32.3 % 40-54 [facility] Laboratory - Chemistry and C hemistry - challengeOrdered By: Noble Figueroa on 11-06-2023 Albumin/Globulin [Mass ratio] 1.1 {ratio} 0.9-2.4 [facility] ALP [Catalytic activity/Vol] 46 U/L 45-117 [facility] ALT [Catalytic activity/Vol] 18 U/L 16-61 [facility] CO2 [Moles/Vol] 24.0 mmol/L 21.0-32.0 [facility] Globulin (S) [Mass/Vol] 3.5 g/dL 2.2-4.2 [facility] Lipase [Catalytic activity/Vol] 39 U/L 13-75 [facility] Comment on above: Please note:LIPASE r evised reference range effective 22. New Lipase methodology. Expected to produce lower values than the previous assay method. NEW Reference Range: 13 - 75 U/L Urea nitrogen/Creatinine [Mass ratio] 21.8 mg/mg 10-20 [facility] Laboratory - Hematology and Cell countsOrdered By: Noble Figueroa on 11-06-2023 MCH (RBC) [Entitic mass] 31.9 pg 27.0-32.0 [facility] MCHC (RBC) [Mass/Vol] 34.4 g/dL 32-36 [facility] Platelet mean volume (Bld) [Entitic vol] 8.4 fL 6.2-12.0 [facility] Platelets (Bld) [#/Vol] 297 10*3/uL 150-450 [facility] No Panel InformationOrdered By: Noble Figueroa on 11-06-2023 Estimated Creatinine Clearance Calc 51.61 ml/min [facility] Estimated GFR (MDRD) Amer 63 mL/min >60 [facility] Comment on above: GFR Calc Estimated GFR (MDRD) Non-Af Amer 52 mL/min >60 [facility] Comment on above: Non- GFR Calc Troponin I High Sensitivity 9 pg/mL 3.0-78.0 [facility] Comment on above: Please Note: New Jeni t Units and Gender Specific Reference Ranges. For more information see Policy Stat Procedure [place] High Sensitivity Troponin (TNIH) and attachments. RBC Auto (Bld) [#/Vol]Ordere d By: Noble Figueroa on 11-06-2023 RBC (Bld) [#/Vol] 3.48 10*6/uL 4.6-6.2 [facility] Serum or plasma calcium kay urement (mass/volume)Ordered By: Noble Figueroa on 11-06-2023 Calcium [Mass/Vol] 8.9 mg/dL 8.5-10.1 [facility] Serum or plasma creatinine m easurement (mass/volume)Ordered By: Noble Figueroa on 11-06-2023 Creatinine [Mass/Vol] 1.42 mg/dL 0.70-1.30 [facility] Comment on above: The validity of the calculated GFR & GFRAA in patients over 70 years has not been determined. Clinical correlation is essential. Serum or plasma urea nitroge n measurement (mass/volume)Ordered By: Noble Figueroa on 11-06-2023 Urea nitrogen [Mass/Vol] 31 mg/dL 7-18 [facility] Thin prep Papanicolaou smear with manual screeningOrdered By: Noble Figueroa on 11-06-2023 Thin prep Papanicolaou smear with manual screening 3.7 g/dL 3.2-5.0 [facility] Thin prep Papanicolaou smear with manual screening 11 U/L 15-37 [facility] Thin prep Papanicolaou smear with manual screening 7 5-15 [facility] No Panel InformationOrdered By: Miguel Kirby on 11-05-2023 Free Triiodothyronine (T3) pg/dL 3.1 pg/mL 2.18-3.98 [facility] Serum or plasma thyroid stim ulating hormone (TSH) measurement (units/volume)Ordered By: Miguel Kirby on 11-05-2023 TSH Qn 0.34 uIU/mL 0.358-3.74 [facility] Thin prep Papanicolaou smear with manual screeningOrdered By: Miguel Kirby on 11-05-2023 Thin prep Papanicolaou smear with manual screening 0.94 ng/dL 0.76-1.46 [facility] Absolute lymphocyte countOrd ered By: Lenin Hidalgo on 11-01-2023 Lymphocytes Auto (Unsp spec) [#/Vol] 1.24 10*3/uL 0.83-4.51 [facility] Automated lymphocyte count a s percentage of total leukocytesOrdered By: Lenin Hidalgo on 11-01-2023 Lymphocytes/100 WBC Auto (Unsp spec) 21.1 % 19-41 [facility] Basophil percentageOrdered B y: Lenin Hidalgo on 11-01-2023 Basophils/100 WBC (Bld) 0.7 % 0-1 [facility] Bilirubin [Mass/Vol] 0.30 mg/dL 0.20-1.00 [facility] Comment on above: For patients on eltr ombopag therapy, use of Dimension [place] TBIL is not recommended. Chloride [Moles/Vol] 94 mmol/L 98-107 [facility] Cholesterol [Mass/Vol] 161 mg/dL <200 [facility] Comment on above: <200 mg/dL Desirable 200-240 mg/dL Borderline >240 mg/dL High Risk Eosinophils/100 WBC (Bld) 3.6 % 0-5 [facility] Glucose [Mass/Vol] 181 mg/dL 74-106 [facility] Comment on above: Fasting Glucose resu lt greater than or equal to 126 mg/dL suggests DIABETES MELLITUS per A.D.A. criteria. Hemoglobin (Bld) [Mass/Vol] 11.8 g/dL 13.0-16.5 [facility] Monocytes/100 WBC (Bld) 9.0 % 0-10 [facility] Neutrophils (Bld) [#/Vol] 3.8 10*3/uL 2.0-7.7 [facility] Neutrophils/100 WBC (Bld) 64.1 % 47-70 [facility] Potassium [Moles/Vol] 5.0 mmol/L 3.5-5.1 [facility] Protein [Mass/Vol] 7.4 g/dL 6.4-8.2 [facility] Sodium [Moles/Vol] 126 mmol/L 136-145 [facility] Triglyceride [Mass/Vol] 254 mg/dL <199 [facility] Comment on above: The drugs N-Acetylcy steine and Metamizole may falsely depress this assay.Serum Triglycerides Reference Interval Normal <150 mg/dL Borderline high 150 - 199 mg/dL High 200 - 499 mg/dL Very High > or = 500 mg/dL WBC (Bld) [#/Vol] 5.9 10*3/uL 4.4-11.0 [facility] Determination of erythrocyte mean corpuscular volume (MCV)Ordered By: Lenin Hidalgo on 11-01-2023 MCV (RBC) [Entitic vol] 91.8 fL 80-94 [facility] Erythrocyte distribution wid th ratioOrdered By: Lenin Hidalgo on 11-01-2023 Erythrocyte distribution width (RBC) [Ratio] 11.8 % 11.6-14.6 [facility] Erythrocyte distribution wid th standard deviationOrdered By: Lenin Hidalgo on 11-01-2023 Erythrocyte distribution width (RBC) [Entitic vol] 39.8 fL 35.1-43.9 [facility] Hematocrit Auto (Bld) [Volum e fraction]Ordered By: Lenin Hidalgo on 11-01-2023 Hematocrit (Bld) [Volume fraction] 34.5 % 40-54 [facility] Immature granulocytes/100 WB C Auto (Bld)Ordered By: Lenin Hidalgo on 11-01-2023 Immature granulocytes/100 WBC (Bld) 1.500 % 0.0-0.9 [facility] Comment on above: IG% - Immature Granu locytes (promyelocytes, myelocytes and metamyelocytes) > 1% indicates that a LEFT SHIFT is Present. Laboratory - Chemistry and C hemistry - challengeOrdered By: Lenin Hidalgo on 11-01-2023 Albumin/Globulin [Mass ratio] 1.1 {ratio} 0.9-2.4 [facility] ALP [Catalytic activity/Vol] 55 U/L 45-117 [facility] ALT [Catalytic activity/Vol] 20 U/L 16-61 [facility] Cholesterol in HDL [Mass/Vol] 38 mg/dL >40 [facility] Comment on above: The drugs N-Acetylcy steine and Metamizole may falsely depress this assay. Reference Range HDL <40 mg/dL Low HDL Cholesterol HDL >or= 60 mg/dL High HDL Cholesterol Cholesterol in LDL [Mass/Vol] 72 mg/dL 0-130 [facility] CO2 [Moles/Vol] 24.0 mmol/L 21.0-32.0 [facility] Globulin (S) [Mass/Vol] 3.6 g/dL 2.2-4.2 [facility] Magnesium [Mass/Vol] 1.9 mg/dL 1.6-2.6 [facility] Urea nitrogen/Creatinine [Mass ratio] 23.8 mg/mg 10-20 [facility] Laboratory - Hematology and Cell countsOrdered By: Lenin Hidalgo on 11-01-2023 MCH (RBC) [Entitic mass] 31.4 pg 27.0-32.0 [facility] MCHC (RBC) [Mass/Vol] 34.2 g/dL 32-36 [facility] Nucleated RBC/100 WBC (Bld) [Ratio] 0 % 0-5 [facility] Platelet mean volume (Bld) [Entitic vol] 8.7 fL 6.2-12.0 [facility] Platelets (Bld) [#/Vol] 311 10*3/uL 150-450 [facility] No Panel InformationOrdered By: Lenin Hidalgo on 11-01-2023 Estimated GFR (MDRD) Amer 72 mL/min >60 [facility] Comment on above: GFR Calc Estimated GFR (MDRD) Non-Af Amer 60 mL/min >60 [facility] Comment on above: Non- GFR Calc VLDL Cholesterol 51 mg/dL 5-40 [facility] RBC Auto (Bld) [#/Vol]Ordere d By: Lenin Hidalgo on 11-01-2023 RBC (Bld) [#/Vol] 3.76 10*6/uL 4.6-6.2 [facility] Serum or plasma calcium kay urement (mass/volume)Ordered By: Lenin Hidalgo on 11-01-2023 Calcium [Mass/Vol] 9.4 mg/dL 8.5-10.1 [facility] Serum or plasma creatinine m easurement (mass/volume)Ordered By: Lenin Hidalgo on 11-01-2023 Creatinine [Mass/Vol] 1.26 mg/dL 0.70-1.30 [facility] Comment on above: The validity of the calculated GFR & GFRAA in patients over 70 years has not been determined. Clinical correlation is essential. Serum or plasma urea nitroge n measurement (mass/volume)Ordered By: Lenin Hidalgo on 11-01-2023 Urea nitrogen [Mass/Vol] 30 mg/dL 7-18 [facility] Thin prep Papanicolaou smear with manual screeningOrdered By: Lenin Hidalgo on 11-01-2023 Thin prep Papanicolaou smear with manual screening 3.8 g/dL 3.2-5.0 [facility] Thin prep Papanicolaou smear with manual screening 14 U/L 15-37 [facility] Thin prep Papanicolaou smear with manual screening 8 5-15 [facility] Absolute lymphocyte countOrd ered By: Lenin Hidalgo on 10-18-2023 Lymphocytes Auto (Unsp spec) [#/Vol] 1.37 10*3/uL 0.83-4.51 [facility] Automated lymphocyte count a s percentage of total leukocytesOrdered By: Lenin Hidalgo on 10-18-2023 Lymphocytes/100 WBC Auto (Unsp spec) 16.9 % 19-41 [facility] Basophil percentageOrdered B y: Lenin Hidalgo on 10-18-2023 Basophils/100 WBC (Bld) 0.6 % 0-1 [facility] Bilirubin [Mass/Vol] 0.30 mg/dL 0.20-1.00 [facility] Comment on above: For patients on eltr ombopag therapy, use of Dimension [place] TBIL is not recommended. Chloride [Moles/Vol] 98 mmol/L 98-107 [facility] Eosinophils/100 WBC (Bld) 3.7 % 0-5 [facility] Glucose [Mass/Vol] 162 mg/dL 74-106 [facility] Comment on above: Fasting Glucose resu lt greater than or equal to 126 mg/dL suggests DIABETES MELLITUS per A.D.A. criteria. Hemoglobin (Bld) [Mass/Vol] 12.7 g/dL 13.0-16.5 [facility] Monocytes/100 WBC (Bld) 8.5 % 0-10 [facility] Neutrophils (Bld) [#/Vol] 5.7 10*3/uL 2.0-7.7 [facility] Neutrophils/100 WBC (Bld) 69.9 % 47-70 [facility] Potassium [Moles/Vol] 4.9 mmol/L 3.5-5.1 [facility] Protein [Mass/Vol] 7.8 g/dL 6.4-8.2 [facility] Sodium [Moles/Vol] 130 mmol/L 136-145 [facility] WBC (Bld) [#/Vol] 8.1 10*3/uL 4.4-11.0 [facility] Determination of erythrocyte mean corpuscular volume (MCV)Ordered By: Lenin Hidalgo on 10-18-2023 MCV (RBC) [Entitic vol] 93.5 fL 80-94 [facility] Erythrocyte distribution wid th ratioOrdered By: Lenin Hidalgo on 10-18-2023 Erythrocyte distribution width (RBC) [Ratio] 12.1 % 11.6-14.6 [facility] Erythrocyte distribution wid th standard deviationOrdered By: Lenin Hidalgo on 10-18-2023 Erythrocyte distribution width (RBC) [Entitic vol] 41.8 fL 35.1-43.9 [facility] Hematocrit Auto (Bld) [Volum e fraction]Ordered By: Lenin Hidalgo on 10-18-2023 Hematocrit (Bld) [Volume fraction] 37.1 % 40-54 [facility] Immature granulocytes/100 WB C Auto (Bld)Ordered By: Lenin Hidalgo on 10-18-2023 Immature granulocytes/100 WBC (Bld) 0.400 % 0.0-0.9 [facility] Comment on above: IG% - Immature Granu locytes (promyelocytes, myelocytes and metamyelocytes) > 1% indicates that a LEFT SHIFT is Present. Laboratory - Chemistry and C hemistry - challengeOrdered By: Lenin Hidalgo on 10-18-2023 Albumin/Globulin [Mass ratio] 1.0 {ratio} 0.9-2.4 [facility] ALP [Catalytic activity/Vol] 58 U/L 45-117 [facility] ALT [Catalytic activity/Vol] 21 U/L 16-61 [facility] CO2 [Moles/Vol] 25.0 mmol/L 21.0-32.0 [facility] Globulin (S) [Mass/Vol] 4.0 g/dL 2.2-4.2 [facility] Urea nitrogen/Creatinine [Mass ratio] 20.8 mg/mg 10-20 [facility] Laboratory - Hematology and Cell countsOrdered By: Lenin Hidalgo on 10-18-2023 MCH (RBC) [Entitic mass] 32.0 pg 27.0-32.0 [facility] MCHC (RBC) [Mass/Vol] 34.2 g/dL 32-36 [facility] Nucleated RBC/100 WBC (Bld) [Ratio] 0 % 0-5 [facility] Platelet mean volume (Bld) [Entitic vol] 8.7 fL 6.2-12.0 [facility] Platelets (Bld) [#/Vol] 297 10*3/uL 150-450 [facility] No Panel InformationOrdered By: Lenin Hidalgo on 10-18-2023 Estimated GFR (MDRD) Amer 62 mL/min >60 [facility] Comment on above: GFR Calc Estimated GFR (MDRD) Non-Af Amer 51 mL/min >60 [facility] Comment on above: Non- GFR Calc Parathyroid Hormone (Intact) 57.3 pg/mL 18.4-80.1 [facility] Urine Microalbumin/Creatinine Ratio 11.4 mg/g CRE <30 [facility] RBC Auto (Bld) [#/Vol]Ordere d By: Lenin Hidalgo on 10-18-2023 RBC (Bld) [#/Vol] 3.97 10*6/uL 4.6-6.2 [facility] Serum or plasma calcium kay urement (mass/volume)Ordered By: Lenin Hidalgo on 10-18-2023 Calcium [Mass/Vol] 8.7 mg/dL 8.5-10.1 [facility] Serum or plasma creatinine m easurement (mass/volume)Ordered By: Lenin Hidalgo on 10-18-2023 Creatinine [Mass/Vol] 1.44 mg/dL 0.70-1.30 [facility] Comment on above: The validity of the calculated GFR & GFRAA in patients over 70 years has not been determined. Clinical correlation is essential. Serum or plasma thyroid stim ulating hormone (TSH) measurement (units/volume)Ordered By: Lenin Hidalgo on 10-18-2023 TSH Qn 0.42 uIU/mL 0.358-3.74 [facility] Serum or plasma urea nitroge n measurement (mass/volume)Ordered By: Lenin Hidalgo on 10-18-2023 Urea nitrogen [Mass/Vol] 30 mg/dL 7-18 [facility] Thin prep Papanicolaou smear with manual screeningOrdered By: Lenin Hidalgo on 10-18-2023 Thin prep Papanicolaou smear with manual screening 3.8 g/dL 3.2-5.0 [facility] Thin prep Papanicolaou smear with manual screening 13 U/L 15-37 [facility] Thin prep Papanicolaou smear with manual screening 7 5-15 [facility] Thin prep Papanicolaou smear with manual screening 7.8 mg/L NO RANGE EST. [facility] Thin prep Papanicolaou smear with manual screening 0.72 ng/dL 0.76-1.46 [facility] Urine creatinine measurement (mass/volume)Ordered By: Lenin Hidalgo on 10-18-2023 Creatinine (U) [Mass/Vol] 68.00 mg/dL NO RANGE EST. [facility] Whole blood hemoglobin A1c/t otal hemoglobin ratio (mass fraction)Ordered By: Lenin Hidalgo on 10-18-2023 HbA1c (Bld) [Mass fraction] 6.8 % 3.8-5.6 [facility] Comment on above: Normal < 5.7 % Predi abetic 5.7 - 6.4 % Diabetic >or= 6.5 % Please note range changes. Basophil percentageOrdered B y: Lenin Hidalgo on 09-07-2023 Bilirubin [Mass/Vol] 0.60 mg/dL 0.20-1.00 [facility] Comment on above: For patients on eltr ombopag therapy, use of Dimension [place] TBIL is not recommended. Chloride [Moles/Vol] 99 mmol/L 98-107 [facility] Glucose [Mass/Vol] 129 mg/dL 74-106 [facility] Comment on above: Fasting Glucose resu lt greater than or equal to 126 mg/dL suggests DIABETES MELLITUS per A.D.A. criteria. Potassium [Moles/Vol] 4.8 mmol/L 3.5-5.1 [facility] Protein [Mass/Vol] 7.6 g/dL 6.4-8.2 [facility] Sodium [Moles/Vol] 133 mmol/L 136-145 [facility] Laboratory - Chemistry and C hemistry - challengeOrdered By: Lenin Hidalgo on 09-07-2023 Albumin/Globulin [Mass ratio] 1.0 {ratio} 0.9-2.4 [facility] ALP [Catalytic activity/Vol] 51 U/L 45-117 [facility] ALT [Catalytic activity/Vol] 26 U/L 16-61 [facility] CO2 [Moles/Vol] 25.0 mmol/L 21.0-32.0 [facility] Globulin (S) [Mass/Vol] 3.8 g/dL 2.2-4.2 [facility] Sodium (U) [Moles/Vol] 70 mmol/L Not Establ. [facility] Urea nitrogen/Creatinine [Mass ratio] 19.2 mg/mg 10-20 [facility] No Panel InformationOrdered By: Lenin Hidalgo on 09-07-2023 Thyroglobulin Antibody < 1.0 IU/mL 0.0-0.9 [facility] Comment on above: Thyroglobulin Antibo dy measured by Paul CoulterMethodologyIt should be noted that the presence of thyroglobulinantibodies may not be pathogenic nor diagnostic, especiallyat very low levels. The assay dental equipment technician has found thatfour percent of individuals without evidence of thyroiddisease or autoimmunity will have positive TgAb levels upto 4 IU/mL.Performed at: [address] [id number] Director: Bonifacio De Jesus PhD, Phone: [phone] Estimated GFR (MDRD) Amer 61 mL/min >60 [facility] Comment on above: GFR Calc Estimated GFR (MDRD) Non-Af Amer 50 mL/min >60 [facility] Comment on above: Non- GFR Calc Free Triiodothyronine (T3) pg/dL 2.6 pg/mL 2.18-3.98 [facility] Serum or plasma calcium kay urement (mass/volume)Ordered By: Lenin Hidalgo on 09-07-2023 Calcium [Mass/Vol] 9.0 mg/dL 8.5-10.1 [facility] Serum or plasma creatinine m easurement (mass/volume)Ordered By: Lenin Hidalgo on 09-07-2023 Creatinine [Mass/Vol] 1.46 mg/dL 0.70-1.30 [facility] Comment on above: The validity of the calculated GFR & GFRAA in patients over 70 years has not been determined. Clinical correlation is essential. Serum or plasma thyroid stim ulating hormone (TSH) measurement (units/volume)Ordered By: Lenin Hidalgo on 09-07-2023 TSH Qn 0.33 uIU/mL 0.358-3.74 [facility] Serum or plasma thyroperoxid ase antibody assay (units/volume)Ordered By: Lenin Hidalgo on 09-07-2023 TPO Ab Qn 26 [IU]/mL 0-34 [facility] Serum or plasma urea nitroge n measurement (mass/volume)Ordered By: Lenin Hidalgo on 09-07-2023 Urea nitrogen [Mass/Vol] 28 mg/dL 7-18 [facility] Thin prep Papanicolaou smear with manual screeningOrdered By: Lenin Hidalgo on 09-07-2023 Thin prep Papanicolaou smear with manual screening 3.8 g/dL 3.2-5.0 [facility] Thin prep Papanicolaou smear with manual screening 17 U/L 15-37 [facility] Thin prep Papanicolaou smear with manual screening 9 5-15 [facility] Thin prep Papanicolaou smear with manual screening 301 mOsm/KG 280-301 [facility] Thin prep Papanicolaou smear with manual screening 0.74 ng/dL 0.76-1.46 [facility] Urine osmolality measurement Ordered By: Lenin Hidalgo on 09-07-2023 Osmolality (U) [Osmolality] 375 mOsm/KG >50 [facility] Comment on above: Normal Urine Referen ce Ranges Random: 50 - 1200 mOsm/kg H20 depending on fluid intake Random: >850 mOsm/kg after 12 hour fluid restriction 24 hour: ~300 - 900 mOsm/kg H2O Absolute lymphocyte countOrd ered By: Lenin Hidalgo on 07-22-2023 Lymphocytes Auto (Unsp spec) [#/Vol] 1.31 10*3/uL 0.83-4.51 [facility] Automated lymphocyte count a s percentage of total leukocytesOrdered By: Lenni Hidalgo on 07-22-2023 Lymphocytes/100 WBC Auto (Unsp spec) 20.3 % 19-41 [facility] Basophil percentageOrdered B y: Lenin Hidalgo on 07-22-2023 Basophils/100 WBC (Bld) 0.8 % 0-1 [facility] Bilirubin [Mass/Vol] 0.50 mg/dL 0.20-1.00 [facility] Comment on above: For patients on eltr ombopag therapy, use of Dimension [place] TBIL is not recommended. Chloride [Moles/Vol] 104 mmol/L 98-107 [facility] Eosinophils/100 WBC (Bld) 4.8 % 0-5 [facility] Glucose [Mass/Vol] 94 mg/dL 74-106 [facility] Hemoglobin (Bld) [Mass/Vol] 12.0 g/dL 13.0-16.5 [facility] Monocytes/100 WBC (Bld) 9.6 % 0-10 [facility] Neutrophils (Bld) [#/Vol] 4.1 10*3/uL 2.0-7.7 [facility] Neutrophils/100 WBC (Bld) 64.0 % 47-70 [facility] Potassium [Moles/Vol] 4.9 mmol/L 3.5-5.1 [facility] Protein [Mass/Vol] 7.8 g/dL 6.4-8.2 [facility] Sodium [Moles/Vol] 136 mmol/L 136-145 [facility] WBC (Bld) [#/Vol] 6.5 10*3/uL 4.4-11.0 [facility] Determination of erythrocyte mean corpuscular volume (MCV)Ordered By: Lenin Hidalgo on 07-22-2023 MCV (RBC) [Entitic vol] 93.4 fL 80-94 [facility] Erythrocyte distribution wid th ratioOrdered By: Lenin Hidalgo on 07-22-2023 Erythrocyte distribution width (RBC) [Ratio] 12.4 % 11.6-14.6 [facility] Erythrocyte distribution wid th standard deviationOrdered By: Lenin Hidalgo on 07-22-2023 Erythrocyte distribution width (RBC) [Entitic vol] 43.1 fL 35.1-43.9 [facility] Hematocrit Auto (Bld) [Volum e fraction]Ordered By: Lenin Hidalgo on 07-22-2023 Hematocrit (Bld) [Volume fraction] 36.7 % 40-54 [facility] Immature granulocytes/100 WB C Auto (Bld)Ordered By: Lenin Hidalgo on 07-22-2023 Immature granulocytes/100 WBC (Bld) 0.500 % 0.0-0.9 [facility] Comment on above: IG% - Immature Granu locytes (promyelocytes, myelocytes and metamyelocytes) > 1% indicates that a LEFT SHIFT is Present. Laboratory - Chemistry and C hemistry - challengeOrdered By: Lenin Hidalgo on 07-22-2023 Albumin/Globulin [Mass ratio] 1.0 {ratio} 0.9-2.4 [facility] ALP [Catalytic activity/Vol] 52 U/L 45-117 [facility] ALT [Catalytic activity/Vol] 26 U/L 16-61 [facility] CO2 [Moles/Vol] 25.0 mmol/L 21.0-32.0 [facility] Cobalamin (Vitamin B12) [Mass/Vol] 1500 pg/mL 211-911 [facility] Ferritin [Mass/Vol] 87 ng/mL 26-388 [facility] Globulin (S) [Mass/Vol] 3.9 g/dL 2.2-4.2 [facility] Sodium (U) [Moles/Vol] 68 mmol/L Not Establ. [facility] Urea nitrogen/Creatinine [Mass ratio] 21.2 mg/mg 10-20 [facility] Laboratory - Hematology and Cell countsOrdered By: Lenin Hidalgo on 07-22-2023 MCH (RBC) [Entitic mass] 30.5 pg 27.0-32.0 [facility] MCHC (RBC) [Mass/Vol] 32.7 g/dL 32-36 [facility] Nucleated RBC/100 WBC (Bld) [Ratio] 0 % 0-5 [facility] Platelets (Bld) [#/Vol] 295 10*3/uL 150-450 [facility] No Panel InformationOrdered By: Lenin Hidalgo on 07-22-2023 Estimated GFR (MDRD) Amer 66 mL/min >60 [facility] Comment on above: GFR Calc Estimated GFR (MDRD) Non-Af Amer 54 mL/min >60 [facility] Comment on above: Non- GFR Calc Folate 55.80 ng/mL 3.1-55.4 [facility] Platelet mean volume [place]ito-Ec ker (Bld) [Entitic vol]Ordered By: Lenin Hidalgo on 07-22-2023 Platelet mean volume (Bld) [Entitic vol] 8.7 fL 6.2-12.0 [facility] RBC Auto (Bld) [#/Vol]Ordere d By: Lenin Hidalgo on 07-22-2023 RBC (Bld) [#/Vol] 3.93 10*6/uL 4.6-6.2 [facility] Serum or plasma calcium kay urement (mass/volume)Ordered By: Lenin Hidalgo on 07-22-2023 Calcium [Mass/Vol] 9.5 mg/dL 8.5-10.1 [facility] Serum or plasma creatinine m easurement (mass/volume)Ordered By: Lenin Hidalgo on 07-22-2023 Creatinine [Mass/Vol] 1.37 mg/dL 0.70-1.30 [facility] Comment on above: The validity of the calculated GFR & GFRAA in patients over 70 years has not been determined. Clinical correlation is essential. Serum or plasma thyroid stim ulating hormone (TSH) measurement (units/volume)Ordered By: Lenin Hidalgo on 07-22-2023 TSH Qn 0.31 uIU/mL 0.358-3.74 [facility] Serum or plasma urea nitroge n measurement (mass/volume)Ordered By: Lenin Hidalgo on 07-22-2023 Urea nitrogen [Mass/Vol] 29 mg/dL 7-18 [facility] Thin prep Papanicolaou smear with manual screeningOrdered By: Lenin Hidalgo on 07-22-2023 Thin prep Papanicolaou smear with manual screening 3.9 g/dL 3.2-5.0 [facility] Thin prep Papanicolaou smear with manual screening 15 U/L 15-37 [facility] Thin prep Papanicolaou smear with manual screening 7 5-15 [facility] Thin prep Papanicolaou smear with manual screening 297 mOsm/KG 280-301 [facility] Thin prep Papanicolaou smear with manual screening Negative Negative [facility] Comment on above: Lyme antibodies not detected. Reflex testing is notindicated.No laboratory evidence of infection with B. burgdorferi(Lyme disease). Negative results may occur in patientsrecently infected (less than or equal to 14 days) with B.burgdorferi. If recent infection is suspected, repeattesting on a new sample collected in 7 to 14 days isrecommended.Performed at: [employer] [id number] Director: Bonifacio De Jesus PhD, Phone: [phone] Urine osmolality measurement Ordered By: Lenin Hidalgo on 07-22-2023 Osmolality (U) [Osmolality] 613 mOsm/KG >50 [facility] Comment on above: Normal Urine Referen ce Ranges Random: 50 - 1200 mOsm/kg H20 depending on fluid intake Random: >850 mOsm/kg after 12 hour fluid restriction 24 hour: ~300 - 900 mOsm/kg H2O Absolute lymphocyte countOrd ered By: Lenin Hidalgo on 07-06-2023 Lymphocytes Auto (Unsp spec) [#/Vol] 0.77 10*3/uL 0.83-4.51 [facility] Basophil percentageOrdered B y: Lenin Hidalgo on 07-06-2023 Basophils/100 WBC (Bld) 0.5 % 0-1 [facility] Bilirubin [Mass/Vol] 0.40 mg/dL 0.20-1.00 [facility] Comment on above: For patients on eltr ombopag therapy, use of Dimension [place] TBIL is not recommended. Chloride [Moles/Vol] 96 mmol/L 98-107 [facility] Eosinophils/100 WBC (Bld) 1.5 % 0-5 [facility] Glucose [Mass/Vol] 113 mg/dL 74-106 [facility] Comment on above: Fasting Glucose resu lt from 100 to 125 mg/dL suggests IMPAIRED HOMEOSTASIS per A.D.A. criteria. Neutrophils (Bld) [#/Vol] 5.1 10*3/uL 2.0-7.7 [facility] Neutrophils/100 WBC (Bld) 77.9 % 47-70 [facility] Potassium [Moles/Vol] 5.0 mmol/L 3.5-5.1 [facility] Protein [Mass/Vol] 7.8 g/dL 6.4-8.2 [facility] Sodium [Moles/Vol] 128 mmol/L 136-145 [facility] WBC (Bld) [#/Vol] 6.6 10*3/uL 4.4-11.0 [facility] Blood erythrocytes count (nu mber/volume)Ordered By: Lenin Hidalgo on 07-06-2023 RBC (Bld) [#/Vol] 3.90 10*6/uL 4.6-6.2 [facility] Blood hemoglobin measurement (mass/volume)Ordered By: Lenin Hidalgo on 07-06-2023 Hemoglobin (Bld) [Mass/Vol] 12.0 g/dL 13.0-16.5 [facility] Blood lymphocytes/100 leukoc ytesOrdered By: Lenin Hidalgo on 07-06-2023 Lymphocytes/100 WBC (Bld) 11.8 % 19-41 [facility] Blood monocytes/100 leukocyt esOrdered By: Lenin Hidalgo on 07-06-2023 Monocytes/100 WBC (Bld) 7.8 % 0-10 [facility] Blood platelet mean volumeOr dered By: Lenin Hidalgo on 07-06-2023 Platelet mean volume (Bld) [Entitic vol] 8.6 fL 6.2-12.0 [facility] Determination of erythrocyte mean corpuscular volume (MCV)Ordered By: Lenin Hidalgo on 07-06-2023 MCV (RBC) [Entitic vol] 94.4 fL 80-94 [facility] Hematocrit Auto (Bld) [Volum e fraction]Ordered By: Lenin Hidalgo on 07-06-2023 Hematocrit (Bld) [Volume fraction] 36.8 % 40-54 [facility] Laboratory - Chemistry and C hemistry - challengeOrdered By: Lenin Hidalgo on 07-06-2023 ALP [Catalytic activity/Vol] 54 U/L 45-117 [facility] ALT [Catalytic activity/Vol] 22 U/L 16-61 [facility] CO2 [Moles/Vol] 25.0 mmol/L 21.0-32.0 [facility] Globulin (S) [Mass/Vol] 3.9 g/dL 2.2-4.2 [facility] Magnesium [Mass/Vol] 1.9 mg/dL 1.6-2.6 [facility] Urea nitrogen/Creatinine [Mass ratio] 19.2 mg/mg 10-20 [facility] Laboratory - Hematology and Cell countsOrdered By: Lenin Hidalgo on 07-06-2023 Erythrocyte distribution width (RBC) [Entitic vol] 42.5 fL 35.1-43.9 [facility] Erythrocyte distribution width (RBC) [Ratio] 12.2 % 11.6-14.6 [facility] Immature granulocytes/100 WBC (Bld) 0.500 % 0.0-0.9 [facility] Comment on above: IG% - Immature Granu locytes (promyelocytes, myelocytes and metamyelocytes) > 1% indicates that a LEFT SHIFT is Present. MCH (RBC) [Entitic mass] 30.8 pg 27.0-32.0 [facility] Nucleated RBC/100 WBC (Bld) [Ratio] 0 % 0-5 [facility] MCHC Auto (RBC) [Mass/Vol]Or dered By: Lenin Hidalgo on 07-06-2023 MCHC (RBC) [Mass/Vol] 32.6 g/dL 32-36 [facility] No Panel InformationOrdered By: Lenin Hidalgo on 07-06-2023 Estimated GFR (MDRD) Amer 73 mL/min >60 [facility] Comment on above: GFR Calc Estimated GFR (MDRD) Non-Af Amer 60 mL/min >60 [facility] Comment on above: Non- GFR Calc Urine Microalbumin/Creatinine Ratio 17.5 mg/g CRE <30 [facility] Platelets bldOrdered By: Selma Hidalgo on 07-06-2023 Platelets (Bld) [#/Vol] 316 10*3/uL 150-450 [facility] Serum or plasma albumin kay urement (mass/volume)Ordered By: Lenin Hidalgo on 07-06-2023 Albumin [Mass/Vol] 3.9 g/dL 3.2-5.0 [facility] Serum or plasma albumin/glob ulin mass ratioOrdered By: Lenin Hidalgo on 07-06-2023 Albumin/Globulin [Mass ratio] 1.0 {ratio} 0.9-2.4 [facility] Serum or plasma calcium kay urement (mass/volume)Ordered By: Lenin Hidalgo on 07-06-2023 Calcium [Mass/Vol] 9.7 mg/dL 8.5-10.1 [facility] Serum or plasma creatinine m easurement (mass/volume)Ordered By: Lenin Hidalgo on 07-06-2023 Creatinine [Mass/Vol] 1.25 mg/dL 0.70-1.30 [facility] Comment on above: The validity of the calculated GFR & GFRAA in patients over 70 years has not been determined. Clinical correlation is essential. Serum or plasma urea nitroge n measurement (mass/volume)Ordered By: Lenin Hidalgo on 07-06-2023 Urea nitrogen [Mass/Vol] 24 mg/dL 7-18 [facility] Thin prep Papanicolaou smear with manual screeningOrdered By: Lenin Hidalgo on 07-06-2023 Thin prep Papanicolaou smear with manual screening 12 U/L 15-37 [facility] Thin prep Papanicolaou smear with manual screening 7 5-15 [facility] Thin prep Papanicolaou smear with manual screening 285 mOsm/KG 280-301 [facility] Thin prep Papanicolaou smear with manual screening 10.7 mg/L NO RANGE EST. [facility] Urine creatinine measurement (mass/volume)Ordered By: Lenin Hidalgo on 07-06-2023 Creatinine (U) [Mass/Vol] 61.20 mg/dL NO RANGE EST. [facility] Urine osmolality measurement Ordered By: Lenin Hidalgo on 07-06-2023 Osmolality (U) [Osmolality] 455 mOsm/KG >50 [facility] Comment on above: Normal Urine Referen ce Ranges Random: 50 - 1200 mOsm/kg H20 depending on fluid intake Random: >850 mOsm/kg after 12 hour fluid restriction 24 hour: ~300 - 900 mOsm/kg H2O Basophil percentageOrdered B y: Lenin Hidalgo on 03-23-2023 Chloride [Moles/Vol] 99 mmol/L 98-107 [facility] Glucose [Mass/Vol] 161 mg/dL 74-106 [facility] Comment on above: Fasting Glucose resu lt greater than or equal to 126 mg/dL suggests DIABETES MELLITUS per A.D.A. criteria. Potassium [Moles/Vol] 4.5 mmol/L 3.5-5.1 [facility] Sodium [Moles/Vol] 132 mmol/L 136-145 [facility] Laboratory - Chemistry and C hemistry - challengeOrdered By: Lenin Hidalgo on 03-23-2023 CO2 [Moles/Vol] 27.0 mmol/L 21.0-32.0 [facility] Free T4 [Mass/Vol] 0.80 ng/dL 0.76-1.46 [facility] Urea nitrogen/Creatinine [Mass ratio] 18.8 mg/mg 10-20 [facility] No Panel InformationOrdered By: Lenin Hidalgo on 03-23-2023 Estimated GFR (MDRD) Amer 71 mL/min >60 [facility] Comment on above: GFR Calc Estimated GFR (MDRD) Non-Af Amer 59 mL/min >60 [facility] Comment on above: Non- GFR Calc Free Triiodothyronine (T3) pg/dL 2.4 pg/mL 2.18-3.98 [facility] Thyroglobulin Antibody < 1.0 IU/mL 0.0-0.9 [facility] Comment on above: Thyroglobulin Antibo dy measured by Paul CoulterMethodology Thyroglobulin Level 9.8 ng/mL 1.4-29.2 [facility] Comment on above: According to the [facility] [employer],the reference interval for Thyroglobulin (TG) should berelated to euthyroid patients and not for patients whounderwent thyroidectomy. TG reference intervals for thesepatients depend on the residual mass of the thyroid tissueleft after surgery. Establishing a post-operative baselineis recommended. The assay limit of quantitation is 0.1ng/mLThyroglobulin measured by Paul Curt ImmunometricAss[employer] Thyroid Stimulating Hormone (TSH) 0.18 uIU/mL 0.358-3.74 [facility] Serum or plasma calcium kay urement (mass/volume)Ordered By: Lenin Hidalgo on 03-23-2023 Calcium [Mass/Vol] 9.2 mg/dL 8.5-10.1 [facility] Serum or plasma creatinine m easurement (mass/volume)Ordered By: Lenin Hidalgo on 03-23-2023 Creatinine [Mass/Vol] 1.28 mg/dL 0.70-1.30 [facility] Comment on above: The validity of the calculated GFR & GFRAA in patients over 70 years has not been determined. Clinical correlation is essential. Serum or plasma thyroperoxid ase antibody assay (units/volume)Ordered By: Lenin Hidalgo on 03-23-2023 TPO Ab Qn 15 [IU]/mL 0-34 [facility] Comment on above: Performed at: [facility] [employer] [id number] Director: Bonifacio De Jesus PhD, Phone: [phone] Serum or plasma urea nitroge n measurement (mass/volume)Ordered By: Lenin Hidalgo on 03-23-2023 Urea nitrogen [Mass/Vol] 24 mg/dL 7-18 [facility] Thin prep Papanicolaou smear with manual screeningOrdered By: Lenin Hidalgo on 03-23-2023 Thin prep Papanicolaou smear with manual screening 6 5-15 [facility] Absolute lymphocyte countOrd ered By: Lenin Hidalgo on 02-19-2023 Lymphocytes Auto (Unsp spec) [#/Vol] 0.94 10*3/uL 0.83-4.51 [facility] Basophil percentageOrdered B y: Lenin Hidalgo on 02-19-2023 Basophils/100 WBC (Bld) 0.8 % 0-1 [facility] Bilirubin [Mass/Vol] 0.40 mg/dL 0.20-1.00 [facility] Comment on above: For patients on eltr ombopag therapy, use of Dimension [place] TBIL is not recommended. Chloride [Moles/Vol] 100 mmol/L 98-107 [facility] Eosinophils/100 WBC (Bld) 3.3 % 0-5 [facility] Glucose [Mass/Vol] 127 mg/dL 74-106 [facility] Comment on above: Fasting Glucose resu lt greater than or equal to 126 mg/dL suggests DIABETES MELLITUS per A.D.A. criteria. Neutrophils (Bld) [#/Vol] 4.6 10*3/uL 2.0-7.7 [facility] Neutrophils/100 WBC (Bld) 71.4 % 47-70 [facility] Potassium [Moles/Vol] 4.9 mmol/L 3.5-5.1 [facility] Protein [Mass/Vol] 7.6 g/dL 6.4-8.2 [facility] Sodium [Moles/Vol] 132 mmol/L 136-145 [facility] WBC (Bld) [#/Vol] 6.4 10*3/uL 4.4-11.0 [facility] Blood erythrocytes count (nu mber/volume)Ordered By: Lenin Hidalgo on 02-19-2023 RBC (Bld) [#/Vol] 3.66 10*6/uL 4.6-6.2 [facility] Blood hemoglobin measurement (mass/volume)Ordered By: Lenin Hidalgo on 02-19-2023 Hemoglobin (Bld) [Mass/Vol] 11.7 g/dL 13.0-16.5 [facility] Blood lymphocytes/100 leukoc ytesOrdered By: Lenin Hidalgo on 02-19-2023 Lymphocytes/100 WBC (Bld) 14.7 % 19-41 [facility] Blood monocytes/100 leukocyt esOrdered By: Lenin Hidalgo on 02-19-2023 Monocytes/100 WBC (Bld) 9.0 % 0-10 [facility] Blood platelet mean volumeOr dered By: Lenin Hidalgo on 02-19-2023 Platelet mean volume (Bld) [Entitic vol] 8.4 fL 6.2-12.0 [facility] Determination of erythrocyte mean corpuscular volume (MCV)Ordered By: Lenin Hidalgo on 02-19-2023 MCV (RBC) [Entitic vol] 94.5 fL 80-94 [facility] Hematocrit Auto (Bld) [Volum e fraction]Ordered By: Lenni Hidalgo on 02-19-2023 Hematocrit (Bld) [Volume fraction] 34.6 % 40-54 [facility] Laboratory - Chemistry and C hemistry - challengeOrdered By: Lenin Hidalgo on 02-19-2023 ALP [Catalytic activity/Vol] 52 U/L 45-117 [facility] ALT [Catalytic activity/Vol] 23 U/L 16-61 [facility] CO2 [Moles/Vol] 26.0 mmol/L 21.0-32.0 [facility] Free T4 [Mass/Vol] 0.79 ng/dL 0.76-1.46 [facility] Globulin (S) [Mass/Vol] 3.7 g/dL 2.2-4.2 [facility] Sodium (U) [Moles/Vol] 69 mmol/L Not Establ. [facility] Urea nitrogen/Creatinine [Mass ratio] 22.0 mg/mg 10-20 [facility] Laboratory - Hematology and Cell countsOrdered By: Lenin Hidalgo on 02-19-2023 Erythrocyte distribution width (RBC) [Entitic vol] 42.4 fL 35.1-43.9 [facility] Erythrocyte distribution width (RBC) [Ratio] 12.1 % 11.6-14.6 [facility] Immature granulocytes/100 WBC (Bld) 0.800 % 0.0-0.9 [facility] Comment on above: IG% - Immature Granu locytes (promyelocytes, myelocytes and metamyelocytes) > 1% indicates that a LEFT SHIFT is Present. MCH (RBC) [Entitic mass] 32.0 pg 27.0-32.0 [facility] Nucleated RBC/100 WBC (Bld) [Ratio] 0 % 0-5 [facility] MCHC Auto (RBC) [Mass/Vol]Or dered By: Lenin Hidalgo on 02-19-2023 MCHC (RBC) [Mass/Vol] 33.8 g/dL 32-36 [facility] No Panel InformationOrdered By: Lenin Hidalgo on 02-19-2023 Estimated GFR (MDRD) Amer 72 mL/min >60 [facility] Comment on above: GFR Calc Estimated GFR (MDRD) Non-Af Amer 59 mL/min >60 [facility] Comment on above: Non- GFR Calc Free Triiodothyronine (T3) pg/dL 2.6 pg/mL 2.18-3.98 [facility] Thyroid Stimulating Hormone (TSH) 0.21 uIU/mL 0.358-3.74 [facility] Platelets bldOrdered By: Selma Hidalgo on 02-19-2023 Platelets (Bld) [#/Vol] 291 10*3/uL 150-450 [facility] Serum or plasma albumin kay urement (mass/volume)Ordered By: Lenin Hidalgo on 02-19-2023 Albumin [Mass/Vol] 3.9 g/dL 3.2-5.0 [facility] Serum or plasma albumin/glob ulin mass ratioOrdered By: Lenin Hidalgo on 02-19-2023 Albumin/Globulin [Mass ratio] 1.1 {ratio} 0.9-2.4 [facility] Serum or plasma calcium kay urement (mass/volume)Ordered By: Lenin Hidalgo on 02-19-2023 Calcium [Mass/Vol] 9.3 mg/dL 8.5-10.1 [facility] Serum or plasma creatinine m easurement (mass/volume)Ordered By: Lenin Hidalgo on 02-19-2023 Creatinine [Mass/Vol] 1.27 mg/dL 0.70-1.30 [facility] Comment on above: The validity of the calculated GFR & GFRAA in patients over 70 years has not been determined. Clinical correlation is essential. Serum or plasma urea nitroge n measurement (mass/volume)Ordered By: Lenin Hidalgo on 02-19-2023 Urea nitrogen [Mass/Vol] 28 mg/dL 7-18 [facility] Thin prep Papanicolaou smear with manual screeningOrdered By: Lenin Hidalgo on 02-19-2023 Thin prep Papanicolaou smear with manual screening 12 U/L 15-37 [facility] Thin prep Papanicolaou smear with manual screening 6 5-15 [facility] Thin prep Papanicolaou smear with manual screening 292 mOsm/KG 280-301 [facility] Urine osmolality measurement Ordered By: Lenin Hidalgo on 02-19-2023 Osmolality (U) [Osmolality] 374 mOsm/KG >50 [facility] Comment on above: Normal Urine Referen ce Ranges Random: 50 - 1200 mOsm/kg H20 depending on fluid intake Random: >850 mOsm/kg after 12 hour fluid restriction 24 hour: ~300 - 900 mOsm/kg H2O CULTURE OTHER [BRIANNE]on CULTURE OTHER [BRIANNE] CULTURE OTHER [A ULTMAN] _CULTURE OTHER_ GO TO [employer] REPORTS AND ATTACHMENTS FOR SCANNED REPORT [id number] Normal [facility] Comment on above: Performed By: #### [id number] #### [facility],[address] [address] Basic metabolic 2000 panelon 05-28-2022 Anion gap [Moles/Vol] 9 mmol/L 9 - 18 mmol/L [facility] Calcium [Mass/Vol] 9.5 mg/dL 8.5 - 10. 2 mg/dL [facility] Chloride [Moles/Vol] 95 mmol/L Low 97 - 10 5 mmol/L [facility] CO2 [Moles/Vol] 27 mmol/L 22 - 30 mmol/L [facility] Creatinine [Mass/Vol] 1.36 mg/dL High 0.73 - 1.22 mg/dL [facility] Estimated Glomerular Filtration Rate 56 mL/min/1.73m Low >=60 mL/min/1.[address] [facility] Glucose [Mass/Vol] 111 mg/dL High 74 - 99 mg/dL [facility] Potassium [Moles/Vol] 4.8 mmol/L 3.7 - 5.1 mmol/L [facility] Sodium [Moles/Vol] 131 mmol/L Low 136 - 144 mmol/L [facility] Urea nitrogen [Mass/Vol] 24 mg/dL 9 - 24 mg/dL [facility] CT UROGRAM WO/W IVCONon 11-[address] [facility] Absolute lymphocyte counton 03-31-2022 Lymphocytes Auto (Unsp spec) [#/Vol] 0.67 10*3/uL 0.83-4.51 [facility] Work Phone: Basophil percentageon 2021 Basophil percentage 0 SEEN /hpf 0-5 [facility] Work Phone: Basophils/100 WBC (Bld) 0.1 % 0-1 [facility] Work Phone: Bilirubin [Mass/Vol] 0.60 mg/dL 0.20-1.00 [facility] Work Phone: Comment on above: For patients on eltr ombopag therapy, use of Dimension [place] TBIL is not recommended. Chloride [Moles/Vol] 96 mmol/L 98-107 [facility] Work Phone: Eosinophils/100 WBC (Bld) 0.2 % 0-5 [facility] Work Phone: Glucose [Mass/Vol] 143 mg/dL 74-106 [facility] Work Phone: [phone] Comment on above: Fasting Glucose resu lt greater than or equal to 126 mg/dL suggests DIABETES MELLITUS per A.D.A. criteria. Neutrophils (Bld) [#/Vol] 8.9 10*3/uL 2.0-7.7 [facility] Work Phone: Neutrophils/100 WBC (Bld) 87.5 % 47-70 [facility] Work Phone: Potassium [Moles/Vol] 5.1 mmol/L 3.5-5.1 [facility] Work Phone: Protein [Mass/Vol] 8.2 g/dL 6.4-8.2 [facility] Work Phone: Sodium [Moles/Vol] 129 mmol/L 136-145 [facility] Work Phone: WBC (Bld) [#/Vol] 10.2 10*3/uL 4.4-11.0 [facility] Work Phone: Bilirubin Test strip Ql (U)o n 03-31-2022 Bilirubin Ql (U) Negative Negative [facility] Work Phone: Blood erythrocytes count (nu mber/volume)on 03-31-2022 RBC (Bld) [#/Vol] 4.32 10*6/uL 4.6-6.2 [facility] Work Phone: [phone] Blood hemoglobin measurement (mass/volume)on 03-31-2022 Hemoglobin (Bld) [Mass/Vol] 14.1 g/dL 13.0-16.5 [facility] Work Phone: Blood lymphocytes/100 leukoc yteson 03-31-2022 Lymphocytes/100 WBC (Bld) 6.6 % 19-41 [facility] Work Phone: Blood monocytes/100 leukocyt eson 03-31-2022 Monocytes/100 WBC (Bld) 5.4 % 0-10 [facility] Work Phone: Blood platelet mean volumeon 03-31-2022 Platelet mean volume (Bld) [Entitic vol] 8.2 fL 6.2-12.0 [facility] Work Phone: [phone] Determination of erythrocyte mean corpuscular volume (MCV)on 03-31-2022 MCV (RBC) [Entitic vol] 94.2 fL 80-94 [facility] Work Phone: Hematocrit Auto (Bld) [Volum e fraction]on 03-31-2022 Hematocrit (Bld) [Volume fraction] 40.7 % 40-54 [facility] Work Phone: [phone] Ketones Test strip Ql (U)on 03-31-2022 Ketones Ql (U) 50 mg/dl Negative [facility] Work Phone: [phone] Laboratory - Chemistry and C hemistry - challengeon 03-31-2022 ALP [Catalytic activity/Vol] 62 U/L 45-117 [facility] Work Phone: ALT [Catalytic activity/Vol] 20 U/L 16-61 [facility] Work Phone: CO2 [Moles/Vol] 24.0 mmol/L 21.0-32.0 [facility] Work Phone: [phone] Globulin (S) [Mass/Vol] 4.3 g/dL 2.2-4.2 [facility] Work Phone: Urea nitrogen/Creatinine [Mass ratio] 15.4 mg/mg 10-20 [facility] Work Phone: Laboratory - Hematology and Cell countson 03-31-2022 Erythrocyte distribution width (RBC) [Entitic vol] 41.7 fL 35.1-43.9 [facility] Work Phone: Erythrocyte distribution width (RBC) [Ratio] 11.9 % 11.6-14.6 [facility] Work Phone: Immature granulocytes/100 WBC (Bld) 0.200 % 0.0-0.9 [facility] Work Phone: Comment on above: IG% - Immature Granu locytes (promyelocytes, myelocytes and metamyelocytes) > 1% indicates that a LEFT SHIFT is Present. MCH (RBC) [Entitic mass] 32.6 pg 27.0-32.0 [facility] Work Phone: Nucleated RBC/100 WBC (Bld) [Ratio] 0 % 0-5 [facility] Work Phone: MCHC Auto (RBC) [Mass/Vol]on 03-31-2022 MCHC (RBC) [Mass/Vol] 34.6 g/dL 32-36 [facility] Work Phone: Mucus LM Ql (Urine sed)on Mucus Ql (Urine sed) 0 SEEN /hpf [facility] Work Phone: Nitrite Test strip Ql (U)on 03-31-2022 Nitrite Ql (U) Negative Negative [facility] Work Phone: No Panel Informationon 03-31 Estimated Creatinine Clearance Calc 53.06 ml/min [facility] Work Phone: Estimated GFR (MDRD) Amer 66 mL/min >60 [facility] Work Phone: Comment on above: GFR Calc Estimated GFR (MDRD) Non-Af Amer 55 mL/min >60 [facility] Work Phone: Comment on above: Non- GFR Calc Thyroid Stimulating Hormone (TSH) 0.30 uIU/mL 0.358-3.74 [facility] Work Phone: Platelets bldon 03-31-2022 Platelets (Bld) [#/Vol] 263 10*3/uL 150-450 [facility] Work Phone: Protein Test strip Ql (U)on 03-31-2022 Protein Ql (U) 15 mg/dl Negative [facility] Work Phone: Serum or plasma albumin kay urement (mass/volume)on 03-31-2022 Albumin [Mass/Vol] 3.9 g/dL 3.2-5.0 [facility] Work Phone: Serum or plasma albumin/glob ulin mass ratioon 03-31-2022 Albumin/Globulin [Mass ratio] 0.9 {ratio} 0.9-2.4 [facility] Work Phone: Serum or plasma calcium kay urement (mass/volume)on 03-31-2022 Calcium [Mass/Vol] 9.4 mg/dL 8.5-10.1 [facility] Work Phone: Serum or plasma creatinine m easurement (mass/volume)on 03-31-2022 Creatinine [Mass/Vol] 1.36 mg/dL 0.70-1.30 [facility] Work Phone: Comment on above: The validity of the calculated GFR & GFRAA in patients over 70 years has not been determined. Clinical correlation is essential. Serum or plasma urea nitroge n measurement (mass/volume)on 03-31-2022 Urea nitrogen [Mass/Vol] 21 mg/dL 7-18 [facility] Work Phone: Squamous epithelial cells de tection in urine sediment by light microscopyon 03-31-2022 Epithelial cells.squamous LM Ql (Urine sed) 0 SEEN /hpf 0-5 [facility] Work Phone: Thin prep Papanicolaou smear with manual screeningon 03-31-2022 Thin prep Papanicolaou smear with manual screening 15 U/L 15-37 [facility] Work Phone: [phone] Thin prep Papanicolaou smear with manual screening 9 5-15 [facility] Work Phone: Urine blood detectionon RBC Ql (U) Negative Negative [facility] Work Phone: RBC Ql (U) 0 SEEN /hpf 0-5 [facility] Work Phone: Urine clarityon 03-31-2022 Clarity (U) Clear Clear [facility] Work Phone: [phone] Urine color determinationon 03-31-2022 Color (U) Yellow Yellow [facility] Work Phone: Urine glucose detectionon Glucose Ql (U) Normal mg/dl Normal [facility] Work Phone: Urine leukocyte esterase det ection by dipstickon 03-31-2022 Leukocyte esterase Test strip Ql (U) Negative Negative [facility] Work Phone: [phone] Urine pHon 03-31-2022 pH (U) 6.5 [pH] 5.0 - 8.0 [facility] Work Phone: [phone] Urine sediment bacteria coun t by microscopy (number/high power field)on 03-31-2022 Bacteria LM.HPF (Urine sed) [#/Area] 0 /[HPF] None Seen [facility] Work Phone: [phone] Urine specific gravity measu rementon 03-31-2022 Specific gravity (U) [Rel density] 1.010 1.002-1.03 0 [facility] Work Phone: Urobilinogen Auto test strip Ql (U)on 03-31-2022 Urobilinogen Ql (U) Normal mg/dl Normal [facility] Work Phone: [phone] Absolute lymphocyte counton 03-11-2022 Lymphocytes Auto (Unsp spec) [#/Vol] 1.32 10*3/uL 0.83-4.51 [facility] Work Phone: [phone] Basophil percentageon 2021 Basophils/100 WBC (Bld) 0.5 % 0-1 [facility] Work Phone: Chloride [Moles/Vol] 93 mmol/L 98-107 [facility] Work Phone: Eosinophils/100 WBC (Bld) 3.4 % 0-5 [facility] Work Phone: Glucose [Mass/Vol] 125 mg/dL 74-106 [facility] Work Phone: Comment on above: Fasting Glucose resu lt from 100 to 125 mg/dL suggests IMPAIRED HOMEOSTASIS per A.D.A. criteria. Neutrophils (Bld) [#/Vol] 5.5 10*3/uL 2.0-7.7 [facility] Work Phone: Neutrophils/100 WBC (Bld) 70.4 % 47-70 [facility] Work Phone: Potassium [Moles/Vol] 4.8 mmol/L 3.5-5.1 [facility] Work Phone: Sodium [Moles/Vol] 130 mmol/L 136-145 [facility] Work Phone: WBC (Bld) [#/Vol] 7.9 10*3/uL 4.4-11.0 [facility] Work Phone: Blood erythrocytes count (nu mber/volume)on 03-11-2022 RBC (Bld) [#/Vol] 3.75 10*6/uL 4.6-6.2 [facility] Work Phone: Blood hemoglobin measurement (mass/volume)on 03-11-2022 Hemoglobin (Bld) [Mass/Vol] 11.9 g/dL 13.0-16.5 [facility] Work Phone: Blood lymphocytes/100 leukoc yteson 03-11-2022 Lymphocytes/100 WBC (Bld) 16.8 % 19-41 [facility] Work Phone: Blood monocytes/100 leukocyt eson 03-11-2022 Monocytes/100 WBC (Bld) 8.5 % 0-10 [facility] Work Phone: Blood platelet mean volumeon 03-11-2022 Platelet mean volume (Bld) [Entitic vol] 8.6 fL 6.2-12.0 [facility] Work Phone: Determination of erythrocyte mean corpuscular volume (MCV)on 03-11-2022 MCV (RBC) [Entitic vol] 94.4 fL 80-94 [facility] Work Phone: [phone] Hematocrit Auto (Bld) [Volum e fraction]on 03-11-2022 Hematocrit (Bld) [Volume fraction] 35.4 % 40-54 [facility] Work Phone: Laboratory - Chemistry and C hemistry - challengeon 03-11-2022 CO2 [Moles/Vol] 30.0 mmol/L 21.0-32.0 [facility] Work Phone: [phone] Urea nitrogen/Creatinine [Mass ratio] 23.1 mg/mg 10-20 [facility] Work Phone: [phone] Laboratory - Hematology and Cell countson 03-11-2022 Erythrocyte distribution width (RBC) [Entitic vol] 41.7 fL 35.1-43.9 [facility] Work Phone: [phone] Erythrocyte distribution width (RBC) [Ratio] 12.0 % 11.6-14.6 [facility] Work Phone: [phone] Immature granulocytes/100 WBC (Bld) 0.400 % 0.0-0.9 [facility] Work Phone: [phone] Comment on above: IG% - Immature Granu locytes (promyelocytes, myelocytes and metamyelocytes) > 1% indicates that a LEFT SHIFT is Present. MCH (RBC) [Entitic mass] 31.7 pg 27.0-32.0 [facility] Work Phone: [phone] Nucleated RBC/100 WBC (Bld) [Ratio] 0 % 0-5 [facility] Work Phone: [phone] MCHC Auto (RBC) [Mass/Vol]on 03-11-2022 MCHC (RBC) [Mass/Vol] 33.6 g/dL 32-36 [facility] Work Phone: No Panel Informationon 03-11 Estimated GFR (MDRD) Amer 76 mL/min >60 [facility] Work Phone: Comment on above: GFR Calc Estimated GFR (MDRD) Non-Af Amer 63 mL/min >60 [facility] Work Phone: Comment on above: Non- GFR Calc Platelets bldon 03-11-2022 Platelets (Bld) [#/Vol] 321 10*3/uL 150-450 [facility] Work Phone: Serum or plasma calcium kay urement (mass/volume)on 03-11-2022 Calcium [Mass/Vol] 8.9 mg/dL 8.5-10.1 [facility] Work Phone: Serum or plasma creatinine m easurement (mass/volume)on 03-11-2022 Creatinine [Mass/Vol] 1.21 mg/dL 0.70-1.30 [facility] Work Phone: Comment on above: The validity of the calculated GFR & GFRAA in patients over 70 years has not been determined. Clinical correlation is essential. Serum or plasma urea nitroge n measurement (mass/volume)on 03-11-2022 Urea nitrogen [Mass/Vol] 28 mg/dL 7-18 [facility] Work Phone: Thin prep Papanicolaou smear with manual screeningon 03-11-2022 Thin prep Papanicolaou smear with manual screening 7 5-15 [facility] Work Phone: Absolute lymphocyte counton 02-10-2022 Lymphocytes Auto (Unsp spec) [#/Vol] 1.03 10*3/uL 0.83-4.51 [facility] Work Phone: Basophil percentageon 2021 Basophils/100 WBC (Bld) 0.7 % 0-1 [facility] Work Phone: Chloride [Moles/Vol] 96 mmol/L 98-107 [facility] Work Phone: Eosinophils/100 WBC (Bld) 1.6 % 0-5 [facility] Work Phone: Glucose [Mass/Vol] 199 mg/dL 74-106 [facility] Work Phone: Comment on above: Fasting Glucose resu lt greater than or equal to 126 mg/dL suggests DIABETES MELLITUS per A.D.A. criteria. Neutrophils (Bld) [#/Vol] 5.8 10*3/uL 2.0-7.7 [facility] Work Phone: Neutrophils/100 WBC (Bld) 76.4 % 47-70 [facility] Work Phone: Potassium [Moles/Vol] 4.7 mmol/L 3.5-5.1 [facility] Work Phone: Sodium [Moles/Vol] 131 mmol/L 136-145 [facility] Work Phone: WBC (Bld) [#/Vol] 7.5 10*3/uL 4.4-11.0 [facility] Work Phone: Blood erythrocytes count (nu mber/volume)on 02-10-2022 RBC (Bld) [#/Vol] 4.14 10*6/uL 4.6-6.2 [facility] Work Phone: Blood hemoglobin measurement (mass/volume)on 02-10-2022 Hemoglobin (Bld) [Mass/Vol] 12.9 g/dL 13.0-16.5 [facility] Work Phone: Blood lymphocytes/100 leukoc yteson 02-10-2022 Lymphocytes/100 WBC (Bld) 13.7 % 19-41 [facility] Work Phone: Blood monocytes/100 leukocyt eson 02-10-2022 Monocytes/100 WBC (Bld) 7.2 % 0-10 [facility] Work Phone: Blood platelet mean volumeon 02-10-2022 Platelet mean volume (Bld) [Entitic vol] 8.6 fL 6.2-12.0 [facility] Work Phone: Determination of erythrocyte mean corpuscular volume (MCV)on 02-10-2022 MCV (RBC) [Entitic vol] 92.8 fL 80-94 [facility] Work Phone: [phone] Hematocrit Auto (Bld) [Volum e fraction]on 02-10-2022 Hematocrit (Bld) [Volume fraction] 38.4 % 40-54 [facility] Work Phone: [phone] Laboratory - Chemistry and C hemistry - challengeon 02-10-2022 CO2 [Moles/Vol] 28.0 mmol/L 21.0-32.0 [facility] Work Phone: [phone] Natriuretic peptide B (Bld) [Mass/Vol] 20.3 pg/mL 0-100 [facility] Work Phone: [phone] Urea nitrogen/Creatinine [Mass ratio] 18.2 mg/mg 10-20 [facility] Work Phone: [phone] Laboratory - Hematology and Cell countson 02-10-2022 Erythrocyte distribution width (RBC) [Entitic vol] 41.8 fL 35.1-43.9 [facility] Work Phone: [phone] Erythrocyte distribution width (RBC) [Ratio] 12.2 % 11.6-14.6 [facility] Work Phone: [phone] Immature granulocytes/100 WBC (Bld) 0.400 % 0.0-0.9 [facility] Work Phone: [phone] Comment on above: IG% - Immature Granu locytes (promyelocytes, myelocytes and metamyelocytes) > 1% indicates that a LEFT SHIFT is Present. MCH (RBC) [Entitic mass] 31.2 pg 27.0-32.0 [facility] Work Phone: [phone] Nucleated RBC/100 WBC (Bld) [Ratio] 0 % 0-5 [facility] Work Phone: [phone] MCHC Auto (RBC) [Mass/Vol]on 02-10-2022 MCHC (RBC) [Mass/Vol] 33.6 g/dL 32-36 [facility] Work Phone: No Panel Informationon 02-10 Estimated GFR (MDRD) Amer 69 mL/min >60 [facility] Work Phone: Comment on above: GFR Calc Estimated GFR (MDRD) Non-Af Amer 57 mL/min >60 [facility] Work Phone: Comment on above: Non- GFR Calc Platelets bldon 02-10-2022 Platelets (Bld) [#/Vol] 312 10*3/uL 150-450 [facility] Work Phone: Serum or plasma calcium kay urement (mass/volume)on 02-10-2022 Calcium [Mass/Vol] 9.5 mg/dL 8.5-10.1 [facility] Work Phone: Serum or plasma creatinine m easurement (mass/volume)on 02-10-2022 Creatinine [Mass/Vol] 1.32 mg/dL 0.70-1.30 [facility] Work Phone: Comment on above: The validity of the calculated GFR & GFRAA in patients over 70 years has not been determined. Clinical correlation is essential. Serum or plasma urea nitroge n measurement (mass/volume)on 02-10-2022 Urea nitrogen [Mass/Vol] 24 mg/dL 7-18 [facility] Work Phone: Thin prep Papanicolaou smear with manual screeningon 02-10-2022 Thin prep Papanicolaou smear with manual screening 7 5-15 [facility] Work Phone: Absolute lymphocyte counton 01-25-2022 Lymphocytes Auto (Unsp spec) [#/Vol] 1.10 10*3/uL 0.83-4.51 [facility] Work Phone: Activated partial thrombopla stin time (aPTT) in platelet poor plasma by coagulation aon 01-25-2022 aPTT Coag (PPP) [Time] 28.8 s 24.1-36.2 [facility] Work Phone: Basophil percentageon 2021 Lactate [Moles/Vol] 1.9 mmol/L 0.4-2.0 [facility] Work Phone: Basophils/100 WBC (Bld) 0.6 % 0-1 [facility] Work Phone: Bilirubin [Mass/Vol] 0.30 mg/dL 0.20-1.00 [facility] Work Phone: [phone] Comment on above: For patients on eltr ombopag therapy, use of Dimension [place] TBIL is not recommended. Chloride [Moles/Vol] 99 mmol/L 98-107 [facility] Work Phone: Eosinophils/100 WBC (Bld) 2.3 % 0-5 [facility] Work Phone: Glucose [Mass/Vol] 165 mg/dL 74-106 [facility] Work Phone: [phone] Comment on above: Fasting Glucose resu lt greater than or equal to 126 mg/dL suggests DIABETES MELLITUS per A.D.A. criteria. Neutrophils (Bld) [#/Vol] 6.3 10*3/uL 2.0-7.7 [facility] Work Phone: Neutrophils/100 WBC (Bld) 77.5 % 47-70 [facility] Work Phone: Potassium [Moles/Vol] 4.3 mmol/L 3.5-5.1 [facility] Work Phone: Protein [Mass/Vol] 7.4 g/dL 6.4-8.2 [facility] Work Phone: Sodium [Moles/Vol] 132 mmol/L 136-145 [facility] Work Phone: WBC (Bld) [#/Vol] 8.2 10*3/uL 4.4-11.0 [facility] Work Phone: Blood erythrocytes count (nu mber/volume)on 01-25-2022 RBC (Bld) [#/Vol] 3.79 10*6/uL 4.6-6.2 [facility] Work Phone: [phone] Blood hemoglobin measurement (mass/volume)on 01-25-2022 Hemoglobin (Bld) [Mass/Vol] 12.2 g/dL 13.0-16.5 [facility] Work Phone: Blood lymphocytes/100 leukoc yteson 01-25-2022 Lymphocytes/100 WBC (Bld) 13.5 % 19-41 [facility] Work Phone: Blood monocytes/100 leukocyt eson 01-25-2022 Monocytes/100 WBC (Bld) 5.5 % 0-10 [facility] Work Phone: Blood platelet mean volumeon 01-25-2022 Platelet mean volume (Bld) [Entitic vol] 8.8 fL 6.2-12.0 [facility] Work Phone: [phone] Determination of erythrocyte mean corpuscular volume (MCV)on 01-25-2022 MCV (RBC) [Entitic vol] 94.5 fL 80-94 [facility] Work Phone: Hematocrit Auto (Bld) [Volum e fraction]on 01-25-2022 Hematocrit (Bld) [Volume fraction] 35.8 % 40-54 [facility] Work Phone: INR in Blood by Coagulation assayon 01-25-2022 INR Coag (Bld) [Relative time] 1.1 {INR} [facility] Work Phone: Laboratory - Chemistry and C hemistry - challengeon 01-25-2022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 06-16-2024 End: 06-16-[address] Lenin Hidalgo MD -Laboratory, [facility] Start: 06-16-2024 End: 06-16-2024 ambulatory Lenin Hidalgo Facility:[facility] Start: 06-12-2024 End: 06-12-[address] Delphine Neri DPM -MRI - [facility] Work Phone: Start: 06-12-2024 End: 06-12-2024 ambulatory Lenin Hidalgo Facility:[facility] Start: 06-05-2024 End: 06-05-[address] Lenin Hidalgo MD -Laboratory, [facility] Start: 06-05-2024 End: 06-05-2024 ambulatory Lenin Hidalgo Facility:[facility] Start: 05-24-2024 ambulatory Eugenia Pastrana Facility:[facility] Start: 05-24-2024 End: 05-24-2024 ambulatory Lenin Hidalgo Facility:[facility] Start: 05-22-2024 End: 05-22-2024 ambulatory Lenin Hidalgo Facility:[facility] Start: 05-16-2024 End: 05-16-2024 ambulatory Lenin Hidalgo Facility:[facility] Start: 05-09-2024 End: 05-09-2024 ambulatory Lenin Hidalgo Facility:[facility] Start: 04-21-2024 End: 04-21-2024 ambulatory Lenin Hidalgo Facility:[facility] Start: 04-19-2024 End: 04-19-2024 ambulatory Lenin Hidalgo Facility:[facility] Start: 03-28-2024 End: 03-28-2024 ambulatory Lenin Hidalgo Facility:[facility] Start: 03-14-2024 End: 03-14-2024 ambulatory Lenin Hidalgo Facility:[facility] Start: 11-29-2023 ambulatory Minna [facility] Start: 11-29-2023 Patient encounter procedure Minna Jackman MA [facility] Start: 11-07-2023 End: 11-08-2023 Emergency department patient visit Dr. Lenin Hidalgo Work Phone: [facility]-Emergency Department Work Phone: Start: 11-06-2023 End: 11-06-2023 Emergency department patient visit Dr. Lenin Hidalgo Work Phone: [facility]-Emergency Department Work Phone: Start: 11-05-[address] Lenin Hidalgo Work Phone: [facility]-Laboratory Work Phone: Start: 11-05-2023 End: 11-05-[address] Lenin Hidalgo Work Phone: [facility] Work Phone: Start: 11-01-2023 End: 11-01-[address] Lenin Hidalgo Work Phone: [facility] Work Phone: Start: 11-01-2023 End: 11-01-[address] Lenin Hidalgo Work Phone: [facility] Start: 10-18-2023 End: 10-18-[address] Lenin Hidalgo Work Phone: [facility] Work Phone: Start: 10-18-2023 End: 10-18-[address] Lenin Hidalgo Work Phone: [facility]-Laboratory Work Phone: Start: 10-08-2023 End: 10-08-[address] Lenin Hidalgo Work Phone: [facility] Work Phone: Start: 10-08-2023 End: 10-08-[address] Lenin Hidalgo Work Phone: [facility] Work Phone: Start: 09-22-2023 End: 09-22-[address] Lenin Hidalgo Work Phone: [facility] Work Phone: Start: 09-22-2023 End: 09-22-[address] Lenin Hidalgo Work Phone: [facility] Work Phone: Start: 09-07-2023 End: 09-07-[address] Lenin Hidalgo Work Phone: [facility] Work Phone: Start: 09-07-2023 End: 09-07-[address] Lenin Hidalgo Work Phone: [facility] Start: 07-22-2023 End: 07-22-[address] Lenin Hidalgo Work Phone: [facility] Work Phone: Start: 07-22-2023 End: 07-22-[address] Lenin Hidalgo Work Phone: [facility] Start: 07-08-2023 End: 07-08-[address] Lenin Hidalgo Work Phone: [facility] Work Phone: Start: 07-06-2023 End: 07-06-[address] Lenin Hidalgo Work Phone: [facility] Work Phone: Start: 07-06-2023 End: 07-06-[address] Lenin Hidalgo Work Phone: [facility] Start: 05-03-2023 ambulatory Petty Joe RN [facility] Management Comment on above: cdm outreach (Tele on cd) Start: 03-23-2023 End: 03-23-2023 ambulatory [facility] Work Phone: Start: 03-23-2023 End: 03-23-2023 Patient encounter procedure [facility] Work Phone: Start: 02-19-2023 End: 02-19-2023 ambulatory [facility] Work Phone: Start: 02-19-2023 End: 02-19-2023 Patient encounter procedure [facility] Start: 01-12-2023 ambulatory Evelina Shafer MD Work Phone: [facility] Comment on above: fluoxetine Start: 01-05-2023 ambulatory Michael cook MD Work Phone: Neurology Comment on above: Gabapentin Start: 12-01-2022 ambulatory Michael cook MD Work Phone: Neurology Comment on above: Gabapentin doseage . .... Start: 09-11-2022 Telephone encounter Georges Shafer MD Work Phone: [facility] [place] Comment on above: Results Start: 09-10-2022 End: 09-10-2022 Patient encounter procedure Evelina Shafer MD Work Phone: [facility] Comment on above: Type 2 diabetes esperanza [...] with patient Michael Segal MD Work Phone: [facility] Start: 08-18-2022 Refill Michael cook MD Work Phone: Neurology Comment on above: Refill Request Start: 07-22-2022 Telephone encounter Barbara Farmer Work Phone: Urology Comment on above: Appointment Start: 07-21-2022 ambulatory Evelina Shafer MD Work Phone: [facility] Comment on above: Prozac Gabapentin .. Start: 07-16-2022 ambulatory Michael cook MD Work Phone: Neurology Comment on above: Gabapentin Vs. Sleep Start: 06-24-2022 End: 06-24-2022 ambulatory EVELINA BUCHANANISSAC [facility] Start: 06-22-2022 ambulatory Michael cook MD Work Phone: Neurology Comment on above: Virtual Meeting for June 26. Start: 06-05-2022 End: 06-05-2022 ambulatory Michael Segal MD Work Phone: Neurology Comment on above: RLS (restless legs s yndrome) (Primary Dx) Start: 06-05-2022 End: 06-05-2022 Telemedicine consultation with patient Michael Segal MD Work Phone: [facility] Start: 06-01-2022 End: 06-01-2022 Patient encounter procedure Evelina Shafer MD Work Phone: [facility] [place] Comment on above: Anxiety with depress ion (Primary Dx); Nausea Start: 05-28-2022 Telephone encounter Georges Shafer MD Work Phone: [facility] [place] Comment on above: Results Start: 05-27-2022 End: 05-27-2022 Subsequent hospital visit by physician [facility] (I-Stat) Work Phone: Cat Scan Comment on above: Gross hematuria [R31 .0] Start: 05-22-2022 Telephone encounter Georges Shafer MD Work Phone: [facility] [place] Comment on above: Appointment Start: 05-19-2022 End: 05-19-2022 Patient encounter procedure Hedy Nevarez APRN.SORT MANAGER Work Phone: Kidney Medicine Comment on above: Hypertensive kidney disease with stage 3a chronic kidney disease (HCC) (Primary Dx); Hyponatremia Start: 05-18-2022 End: 05-18-2022 Patient encounter procedure Barbara Orantes MD Work Phone: Urology Comment on above: BPH with obstruction /lower urinary tract symptoms (Primary Dx); Gross hematuria; Erectile dysfunction, unspecified erectile dysfunction type Start: 05-16-2022 ambulatory Evelina Shafer MD Work Phone: [facility] Comment on above: Flonase/Fluticasone ... Start: 05-04-2022 Orders Only Barbara Orantes MD Work Phone: Urology Comment on above: BPH with obstruction /lower urinary tract symptoms (Primary Dx) Start: 05-01-2022 End: 05-01-2022 Patient encounter procedure Evelina Shafer MD Work Phone: [facility] Comment on above: Type 2 diabetes esperanza itus without complication, without long- term current use of insulin (HCC) (Primary Dx); CKD stage 2 due to type 2 diabetes mellitus (HCC); Hyponatremia; Hyperlipidemia, unspecified hyperlipidemia type; Statin intolerance; Primary hypertension; At high risk for falls; Need for COVID-19 vaccine Start: 04-20-2022 ambulatory Evelina Shafer MD Work Phone: [facility] Comment on above: Prozac prescription .... Refill Request Start: 04-17-2022 [facility] Work Phone: Neurology Comment on above: Psg Check In (Adult) Start: 04-17-2022 End: 04-17-2022 Patient encounter procedure Evelina Shafer MD Work Phone: [facility] Comment on above: Primary hypertension (Primary Dx); Brain fog; History of COVID-19 Start: 04-16-2022 Refill Evelina Shafer MD Work Phone: [facility] Comment on above: Refill Request Start: 04-14-2022 ambulatory Evelina Shafer MD Work Phone: [facility] Comment on above: Elevated Blood Press ure ... Start: 04-06-2022 Telephone encounter Georges Shafer MD Work Phone: [facility] Comment on above: Results Start: 03-31-2022 End: 03-31-2022 Emergency department patient visit Dr. Georges Shafer Work Phone: [facility]-Emergency Department Start: 03-24-2022 End: 03-24-2022 Patient encounter procedure Minna Soriano APRN.CNP Work Phone: [facility] Comment on above: Suspected COVID-19 v irus infection (Primary Dx); Exposure to confirmed case of COVID-19 Start: 03-16-2022 End: 03-16-2022 Admission to same day surgery center Dr. Georges Shafer Work Phone: [facility]-Claims Account Specialist/Special Procedures Start: 03-13-2022 Non-patient / Non-visit Dr. Lavon Shafer Work Phone: [facility] Start: 03-11-2022 End: 03-11-[address] Georges Shafer Work Phone: [facility] Work Phone: Start: 03-11-2022 End: 03-11-[address] Georges Shafer Work Phone: [facility]-Laboratory Start: 03-10-2022 Non-patient / Non-visit Dr. Lavon Shafer Work Phone: [facility] Start: 03-06-2022 Non-patient / Non-visit Dr. Lavon Shafer Work Phone: [facility] Start: 03-06-2022 End: 03-06-[address] Georges Shafer Work Phone: [facility] Work Phone: Start: 03-06-2022 End: 03-06-[address] Georges Shafer Work Phone: [facility]-Cardiovascul ar Services Start: 03-04-2022 ambulatory Evelina Shafer MD Work Phone: [facility] Comment on above: prozac Start: 03-03-2022 ambulatory Evelina Shafer MD Work Phone: [facility] Comment on above: prozac Start: 02-10-2022 End: 02-10-[address] Georges Shafer Work Phone: [facility]-Laboratory Start: 02-10-2022 End: 02-10-[address] Georges Shafer Work Phone: [facility] Start: 01-29-2022 End: 01-29-2022 Patient encounter procedure Evelina Shafer MD Work Phone: [facility] Comment on above: Dehydration (Primary Dx); TRUPTI (acute kidney injury) (HCC); Moderate episode of recurrent major depressive disorder (HCC) Start: 01-29-2022 Telephone encounter Andrew tineo DO Work Phone: Kidney Medicine Comment on above: TRUPTI (Acute Kidney In jury) Start: 01-28-2022 Telephone encounter Angie jacques APRN.SORT MANAGER Work Phone: [facility] Comment on above: Results Start: 01-26-2022 ambulatory Evelina Shafer MD Work Phone: [facility] Comment on above: UPCOMING ARASELI'T. Start: 01-25-2022 End: 01-25-2022 Emergency department patient visit [facility]-Emergency Department Start: 01-06-2022 Telephone encounter Angie jacques APRN.SORT MANAGER Work Phone: [facility] Comment on above: Results Start: 12-30-2021 End: 12-30-2021 Patient encounter procedure Daniel Bettie Work Phone: Podiatry Comment on above: Type 2 diabetes esperanza itus without complication, with long-term current use of insulin (HCC) (Primary Dx); Plantar fasciitis; Hallux limitus, acquired, unspecified laterality Start: 12-30-2021 End: 12-30-2021 Subsequent hospital visit by physician Jose Luis [facility] Work Phone: Radiology Comment on above: Pain [R52] Start: 12-08-2021 ambulatory Evelina Shafer MD Work Phone: [facility] Comment on above: prozac Start: 12-02-2021 End: 12-02-2021 Patient encounter procedure Hedy Nevarez CENTER DIRECTOR.SORT MANAGER Work Phone: Kidney Medicine Comment on above: CKD (chronic kidney disease) stage 2, GFR 60-89 ml/min (Primary Dx); Hyponatremia Start: 11-28-2021 ambulatory Angelina hernandez RN Work Phone: Field Representative Management Comment on above: [employer] Home Monitor ing (Update) Start: 11-11-2021 End: 11-11-2021 Patient encounter procedure Barbara Orantes MD Work Phone: Urology Comment on above: BPH with obstruction /lower urinary tract symptoms (Primary Dx); Erectile dysfunction, unspecified erectile dysfunction type Start: 10-14-2021 ambulatory Evelina Shafer MD Work Phone: [facility] Comment on above: Second part of my em ail Start: 10-01-2021 End: 10-01-2021 Patient encounter procedure Angie Li CENTER DIRECTOR.SORT MANAGER Work Phone: [facility] Comment on above: Anxiety with depress ion Start: 09-24-2021 ambulatory Kiersten fox RN Work Phone: Field Representative Management Comment on above: community monitoring outreach (enrollment) Start: 09-23-2021 ambulatory Evelina Shafer MD Work Phone: [facility] Comment on above: Zoloft Start: 08-15-2021 Telephone encounter Georges Shafer MD Work Phone: [facility] Comment on above: Results Start: 06-30-2021 End: 06-30-2021 Subsequent hospital visit by physician Jose Luis [facility] [place] Work Phone: Radiology Comment on above: Hyperreflexia [R29.2 ] Start: 11-26-2020 [facility] Start: 09-24-2020 End: 09-24-2020 Subsequent hospital visit by physician Jose Luis [facility] [place] Work Phone: Radiology Comment on above: Acute pain of both k nees [M25.561, M25562] Procedures Date Procedure Procedure Detail Performing Clinician Start: 01-24-2025 Radionuclide imaging of perfusion of myocardium under exercise stress Dr. Lenin Hidalgo MD Work Phone: Start: 10-05-2024 US scan of thyroid Dr. [...] lower limb wi th contrast Dr. Lenin Hidalgo MD Work Phone: Start: 11-07-2023 CT of [...] Luigi Suresh MD Work Phone: Start: 05-01-2022 [employer] COVI D-19 BIVALENT BOOSTER VACCINE, AGE 12+ [...] exam knee complete 4/more views Angie Li CENTER DIRECTOR.SORT MANAGER Work Phone: Start: 01-19-2014 Colonoscopy Georges Shafer MD Work Phone: SARS-CoV-2 & FLU Ant igen (Rapid) Plan of Treatment Date Care Activity Detail Author Start: 12-18-2026 Urine microalbumin profile [facility] Start: 2026 RSV Vaccine (1 - 1-d ose 75+ series) RSV Vaccine (1 - 1-dose 75+ series) [facility] Start: 02-27-2024 Covid-19 Vaccine ( season) Covid-19 Vaccine ( season) [facility] Start: 02-27-2024 Influenza vaccination C [facility] Start: 01-20-2024 Colonoscopy COLONOSCOPY [facility] Start: 01-20-2024 COLORECTAL CANCER SCREENING COLORECTAL CANCER SCREENING [facility] Start: 01-20-2024 Screening for malign ant neoplasm of colon [facility] Start: 11-08-2023 [facility] Start: 11-07-2023 [facility] Start: 11-06-2023 [facility] Start: 11-05-2023 Thyroid stimulating immunoglobulins actual/normal in Serum [facility] Start: 09-11-2023 3 comp foot exam completed DIABETIC FOOT EXAM [facility] Start: 09-11-2023 ANNUAL PCP TEAM POLICY SERVICE COORDINATOR MELINA DISEASE VISIT ANNUAL PCP TEAM CHRONIC DISEASE VISIT [facility] Start: 09-11-2023 BP CONTROLLED (<130/80) BP CONTROLLE D (<130/80) [facility] Start: 09-11-2023 Creatinine measurement Serum Creatin ine [facility] Start: 09-11-2023 Diabetic foot examination Diabetic F oot Exam [facility] Start: 09-11-2023 SERUM CREATININE SERUM CREATININE [facility] Start: 08-06-2023 BP CONTROLLED (<130/80) BP CONTROLLE D (<130/80) [facility] Start: 07-29-2023 Glaucoma screening Dilated Retinal E xam [facility] Start: 07-29-2023 Hepatitis C antibody , confirmatory test DILATED RETINAL EXAM [facility] Start: 06-28-2023 Advance Directive Discussion Advance Directive Discussion [facility] Start: 06-28-2023 Behavioral Health Screening Behavioral Health Screening [facility] Start: 06-01-2023 ANNUAL PCP TEAM POLICY SERVICE COORDINATOR MELINA DISEASE VISIT ANNUAL PCP TEAM CHRONIC DISEASE VISIT [facility] Start: 06-01-2023 BP CONTROLLED (<130/80) BP CONTROLLE D (<130/80) [facility] Start: 05-28-2023 SERUM CREATININE SERUM CREATININE Cl [facility] Start: 05-19-2023 BP CONTROLLED (<130/80) BP CONTROLLE D (<130/80) [facility] Start: 05-01-2023 ANNUAL PCP TEAM POLICY SERVICE COORDINATOR MELINA DISEASE VISIT ANNUAL PCP TEAM CHRONIC DISEASE VISIT [facility] Start: 05-01-2023 BP CONTROLLED (<130/80) BP CONTROLLE D (<130/80) [facility] Start: 04-17-2023 ANNUAL PCP TEAM POLICY SERVICE COORDINATOR MELINA DISEASE VISIT ANNUAL PCP TEAM CHRONIC DISEASE VISIT [facility] Start: 03-31-2023 ANNUAL PCP TEAM POLICY SERVICE COORDINATOR MELINA DISEASE VISIT ANNUAL PCP TEAM CHRONIC DISEASE VISIT [facility] Start: 03-13-2023 Hemoglobin A1c measurement HbA1C [facility] Start: 03-13-2023 Hemoglobin A1c/Hemoglobin.total in Blood HBA1C [facility] Start: 02-26-2023 Covid-19 Vaccine ( season) Covid-19 Vaccine () [facility] Start: 02-26-2023 Influenza vaccination [facility] Start: 01-29-2023 ANNUAL PCP TEAM POLICY SERVICE COORDINATOR MELINA DISEASE VISIT ANNUAL PCP TEAM CHRONIC DISEASE VISIT [facility] Start: 01-29-2023 SERUM CREATININE SERUM CREATININE [facility] Start: 01-27-2023 Hepatitis B surface antibody level LDL CHOLESTEROL [facility] Start: 01-05-2023 ANNUAL PCP TEAM POLICY SERVICE COORDINATOR MELINA DISEASE VISIT ANNUAL PCP TEAM CHRONIC DISEASE VISIT [facility] Start: 01-05-2023 BP CONTROLLED (<130/80) BP CONTROLLE D (<130/80) [facility] Start: 01-05-2023 Hepatitis B screening URINE AL BUMIN:CREATININE RATIO [facility] Start: 01-05-2023 SERUM CREATININE SERUM CREATININE [facility] Start: 12-02-2022 BP CONTROLLED (<130/80) BP CONTROLLE D (<130/80) [facility] Start: 11-22-2022 Hemoglobin A1c/Hemoglobin.total in Blood HBA1C [facility] Start: 11-13-2022 HEMOGLOBIN/HEMATOCRIT HEMOGLOBIN/HEM ATOCRIT [facility] Start: 11-13-2022 SERUM CREATININE SERUM CREATININE Cl [facility] Start: 11-11-2022 BP CONTROLLED (<130/80) BP CONTROLLE D (<130/80) [facility] Start: 10-15-2022 ANNUAL PCP TEAM POLICY SERVICE COORDINATOR MELINA DISEASE VISIT ANNUAL PCP TEAM CHRONIC DISEASE VISIT [facility] Start: 10-15-2022 BP CONTROLLED (<130/80) BP CONTROLLE D (<130/80) [facility] Start: 10-01-2022 ANNUAL PCP TEAM POLICY SERVICE COORDINATOR MELINA DISEASE VISIT ANNUAL PCP TEAM CHRONIC DISEASE VISIT [facility] Start: 10-01-2022 BP CONTROLLED (<130/80) BP CONTROLLE D (<130/80) [facility] Start: 09-11-2022 End: 11-11-2022 POTASSIUM BLD POTASSIUM BLD Lab Routine Hyperkalemia Expected: 09/11/2022, Expires: 11/11/2022 [facility] Work Phone: Comment on above: Expected: 09/11/2022 , Expires: 11/11/2022 Start: 09-10-2022 End: 11-10-2022 Comprehensive metabolic 2000 panel - Serum or Plasma [facility] Work Phone: Comment on above: Expected: 09/10/2022 , Expires: 11/10/2022 Start: 09-10-2022 End: 11-10-2022 Hemoglobin A1c in Blood [facility] Work Phone: Comment on above: Expected: 09/10/2022 , Expires: 11/10/2022 Start: 09-10-2022 End: 11-10-2022 Magnesium [Mass/volume] in Serum or Plasma [facility] Work Phone: Comment on above: Expected: 09/10/2022 , Expires: 11/10/2022 Start: 09-04-2022 SERUM CREATININE SERUM CREATININE Cl [facility] Start: 08-29-2022 COVID-19 VACCINE (7 - Moderna series) COVID-19 VACCINE (7 - Moderna series) [facility] Start: 08-14-2022 Adult depression screening assessment DEPRESSION SCREENING [facility] Start: 08-14-2022 ANNUAL PCP TEAM POLICY SERVICE COORDINATOR MELINA DISEASE VISIT ANNUAL PCP TEAM CHRONIC DISEASE VISIT [facility] Start: 07-08-2022 Hemoglobin A1c/Hemoglobin.total in Blood HBA1C [facility] Start: 07-07-2022 3 comp foot exam completed DIABETIC FOOT EXAM [facility] Start: 07-02-2022 Hepatitis C antibody , confirmatory test DILATED RETINAL EXAM [facility] Start: 06-28-2022 ADVANCE DIRECTIVE DISCUSSION ADVANCE DIRECTIVE DISCUSSION [facility] Start: 06-28-2022 DEPRESSION ASSESSMENT DEPRESSION ASS ESSMENT [facility] Start: 05-18-2022 End: 07-18-2022 CREATININE BLD CREATININE BLD Lab Routine Gross hematuria Expected: 05/18/2022 (Approximate), Expires: 07/18/2022 [facility] Work Phone: Comment on above: Expected: 05/18/2022 (Approximate), Expires: 07/18/2022 Start: 05-04-2022 End: 07-04-2022 Bacteria identified in Urine by Culture URINE CULTURE Microbiology Routine BPH with obstruction/lower urinary tract symptoms Expected: 05/04/2022, Expires: 07/04/2022 [facility] Work Phone: Comment on above: Expected: 05/04/2022 , Expires: 07/04/2022 Start: 05-04-2022 End: 07-04-2022 Urinalysis complete panel - Urine URINALYSIS, WITH MICROSCOPIC Lab Routine BPH with obstruction/lower urinary tract symptoms Expected: 05/04/2022, Expires: 07/04/2022 [facility] Work Phone: Comment on above: Expected: 05/04/2022 , Expires: 07/04/2022 Start: 05-01-2022 End: 07-01-2022 Comprehensive metabolic 2000 panel - Serum or Plasma COMP METABOLIC PANEL Lab Routine Type 2 diabetes mellitus without complication, without long-term current use of insulin ([facility]) Hyponatremia Expected: 05/01/2022, Expires: 07/01/2022 [facility] Work Phone: Comment on above: Expected: 05/01/2022 , Expires: 07/01/2022 Start: 05-01-2022 End: 07-01-2022 Hemoglobin A1c in Blood HGB A1C Lab Routine Type 2 diabetes mellitus without complication, without long-term current use of insulin (HCC) Expected: 05/01/2022, Expires: 07/01/2022 [facility] Work Phone: Comment on above: Expected: 05/01/2022 , Expires: 07/01/2022 Start: 03-31-2022 [facility] Work Phone: Start: 03-24-2022 End: 04-07-2022 Influenza virus A and B RNA and SARS-CoV-2 (COVID-19) N gene panel - Respiratory specimen by ZAMZAM with probe detection COVID WITH FLUA+B, ROUTINE Microbiology Routine Suspected COVID-19 virus infection Exposure to confirmed case of COVID-19 Expected: 03/24/2022, Expires: 04/07/2022 [facility] Work Phone: Comment on above: Expected: 03/24/2022 , Expires: 04/07/2022 Start: 02-26-2022 Influenza vaccination INFLUENZA (#1) [facility] Start: 02-12-2022 Hepatitis B surface antibody level LDL CHOLESTEROL [facility] Start: 02-01-2022 End: 04-03-2022 Basic metabolic 2000 panel - Serum or Plasma BASIC METABOLIC PNL Lab Routine CKD (chronic kidney disease) stage 2, GFR 60-89 ml/min Hyponatremia Expected: 02/01/2022, Expires: 04/03/2022 [facility] Work Phone: Comment on above: Expected: 02/01/2022 , Expires: 04/03/2022 Start: 01-29-2022 End: 03-31-2022 Basic metabolic 2000 panel - Serum or Plasma [facility] Work Phone: Comment on above: Expected: 01/29/2022 , Expires: 03/31/2022 Start: 01-06-2022 End: 03-08-2022 Lipid 1996 panel - Serum or Plasma LIPID PANEL BASIC Lab Routine Screening for hyperlipidemia Expected: 01/06/2022, Expires: 03/08/2022 [facility] Work Phone: Comment on above: Expected: 01/06/2022 , Expires: 03/08/2022 Start: 01-05-2022 Hemoglobin A1c/Hemoglobin.total in Blood HBA1C [facility] Start: 12-31-2021 Hepatitis B screening URINE AL BUMIN:CREATININE RATIO [facility] Start: 12-06-2021 HEMOGLOBIN/HEMATOCRIT HEMOGLOBIN/HEM ATOCRIT [facility] Start: 11-20-2021 COVID-19 VACCINE (5 - Booster for Moderna series) COVID-19 VACCINE (5 - Booster for Moderna series) [facility] Start: 11-11-2021 End: 2022 Prostate Specific Ag Free [Mass/volume] in Serum or Plasma PSA FREE Lab Routine BPH with obstruction/lower urinary tract symptoms Expected: 11/11/2021, Expires: 2022 [facility] Work Phone: Comment on above: Expected: 11/11/2021 , Expires: 2022 Start: 11-11-2021 End: 2022 Testosterone [Mass/volume] in Serum or Plasma TESTOSTERONE TOTAL Lab Routine Erectile dysfunction, unspecified erectile dysfunction type Expected: 11/11/2021, Expires: 2022 [facility] Work Phone: Comment on above: Expected: 11/11/2021 , Expires: 2022 Start: 08-24-2021 COVID-19 VACCINE (4 - Booster for Moderna series) COVID-19 VACCINE (4 - Booster for Moderna series) [facility] Start: 06-28-2021 ADVANCE DIRECTIVE DISCUSSION ADVANCE DIRECTIVE DISCUSSION [facility] Start: 06-28-2021 DEPRESSION ASSESSMENT DEPRESSION ASS ESSMENT [facility] Start: 07-18-2013 FECAL OCCULT BLOOD FECAL OCCULT BLOO D [facility] Start: 07-18-2013 Screening for malign ant neoplasm of colon Fecal Occult Blood [facility] Start: 2011 Hepatitis B Vaccine (1 of 3 - Risk 3-dose series) Hepatitis B Vaccine (1 of 3 - Risk 3-dose series) [facility] Start: 2011 RSV Vaccine (1 - 1-d ose 60+ series) RSV Vaccine (1 - 1-dose 60+ series) [facility] Start: 01-12-1996 COLOGUARD (FIT-DNA) COLOGUARD (FIT-D NA) [facility] Start: 01-12-[address] COLONOGRAPHY [facility] Start: 01-12-1996 Screening for malign ant neoplasm of colon [facility] Start: 01-12-1996 SIGMOIDOSCOPY SIGMOIDOSCOPY [facility] Start: 1969 Anxiety Screening Anxiety Screening [facility] Start: 1969 BP CONTROLLED (<130/80) BP CONTROLLE D (<130/80) [facility] Start: 1969 Depression Screening Depression Scre ening [facility] Basic metabolic 2008 panel with ionized calcium - Serum or Plasma [facility] End: 06-17-2023 Ct abdomen & pelvis w/o contrst 1/> body re CT UROGRAM WO/W IVCON Radiology Routine Gross hematuria 1 Occurrences starting 05/18/2022 until 06/17/2023 [facility] Work Phone: Comment on above: 1 Occurrences starti ng 05/18/2022 until 06/17/2023 CYTOLOGY NON-ENGRAVER RUBBER CYTOLOGY NON-GY N Lab Routine Gross hematuria 05/18/2022 12:23 PM EST [facility] Work Phone: Elastase.pancreatic [Presence] in Stool [facility] Lipid 1996 panel - S barbie or Plasma [facility] Patient Education [facility] Work Phone: Patient referral [facility] Work Phone: Protein/Creatinine [ Mass Ratio] in Urine PROTEIN CREATININE RATIO Lab Routine CKD (chronic kidney disease) stage 2, GFR 60-89 ml/min Ordered: 12/02/2021 [facility] Work Phone: Comment on above: Ordered: 12/02/2021 Radionuclide imaging of perfusion of myocardium under exercise stress [facility] Immunizations Immunization Date Immunization Notes Care Provider Fa cili 05-01-2022 COVID-19 booster vaccine, age 12+ yr, bivalent (PFIZER-BIONTECH) Evelina Shafer MD Work Phone: [facility] 04-15-2022 influenza virus vaccine, unspecified formulation Ct (I-Stat) Work Phone: [facility] 09-02-2021 COVID-19 vaccine, ag e 12+ yr (PFIZER-BIONTECH - PURPLE TOP) Angie Li CENTER DIRECTOR.SORT MANAGER Work Phone: [facility] Work Phone: 04-23-2021 COVID-19 vaccine, fu ll dose (MODERNA) Evelina Shafer MD Work Phone: [facility] 04-23-2021 influenza (aIIV4) vaccine, age 65+ yr, quadrivalent, PF (FLUAD QUADRIVALENT) Angie Li APRN.CNP Work Phone: [facility] Work Phone: 02-25-2021 influenza, high dose seasonal, preservative-free Evelina Shafer MD Work Phone: [facility] 09-10-2020 COVID-19 vaccine, fu ll dose (MODERNA) Evelina Shafer MD Work Phone: [facility] 08-14-2020 COVID-19 vaccine, fu ll dose (MODERNA) Evelina Shafer MD Work Phone: [facility] 03-12-2020 influenza, high-dose , quadrivalent vaccine (FLUZONE HIGH DOSE QUADRIVALENT) Evelina Shafer MD Work Phone: [facility] Work Phone: 03-11-2020 influenza, high-dose , quadrivalent vaccine (FLUZONE HIGH DOSE QUADRIVALENT) Evelina Shafer MD Work Phone: [facility] Work Phone: 12-13-2019 zoster vaccine recombinant Evelina Shafer MD Work Phone: [facility] 08-02-2019 zoster vaccine recombinant Evelina Shafer MD Work Phone: [facility] 03-20-2019 influenza virus vaccine, unspecified formulation Evelina Shafer MD Work Phone: [facility] Work Phone: 10-18-2018 measles, mumps and rubella virus vaccine Evelina Shafer MD Work Phone: [facility] 06-24-2018 influenza, high dose seasonal, preservative-free Evelina Shafer MD Work Phone: [facility] 07-26-2017 influenza, seasonal, injectable Evelina Shafer MD Work Phone: [facility] 07-26-2017 pneumococcal polysaccharide vaccine, 23 valent Evelina Shafer MD Work Phone: [facility] 12-18-2016 tetanus and diphther ia toxoids, adsorbed, preservative free, for adult use (5 Lf of tetanus toxoid and 2 Lf of diphtheria toxoid) Evelina Shafer MD Work Phone: [facility] 05-26-2016 pneumococcal conjuga te vaccine, 13 valent Evelina Shafer MD Work Phone: [facility] 04-09-2015 influenza, injectabl e, quadrivalent, contains preservative Evelina Shafer MD Work Phone: [facility] 10-11-2014 zoster vaccine, live Huey wendy Shafer MD Work Phone: [facility] 07-18-2012 influenza virus vaccine, unspecified formulation Evelina Shafer MD Work Phone: [facility] 08-02-2009 pneumococcal polysaccharide vaccine, 23 valent Evelina Shafer MD Work Phone: [facility] 08-02-2009 tetanus toxoid, redu tanna diphtheria toxoid, and acellular pertussis vaccine, adsorbed Evelina Shafer MD Work Phone: [facility] 04-24-2009 influenza virus vaccine, unspecified formulation Evelina Shafer MD Work Phone: [facility] 05-31-2008 influenza virus vaccine, unspecified formulation Evelina Shafer MD Work Phone: [facility] Work Phone: Payers Date Payer Category Payer Self-pay [id number] 2023 Medicare [id number] 2023 Unknown [id number] 2018 Unknown MMO MMO MEDICARE SUPPLEMENT [id number] 2018-Present [phone] [address] [place] [address] Indemnity [id number] 2018 Unknown MMO MMO MEDICARE SUPPLEMENT [id number] 2018-Present [phone] [address] [place] [address] Indemnity [id number] 2015 Medicare MEDICARE MEDICAR E A AND B [id number] 2015-Present [phone] [address] [address] [place] [address] Medicare [id number] 2015 Medicare MEDICARE MEDICAR E A AND B [id number] 2015-Present [phone] [place] [address] Medicare [id number] 1950 Unknown [id number] Unknown [id number] Unknown [id number] Unknown [id number] [id number] Unknown [id number] [id number]2 Unknown [id number] [id number]2 Unknown [id number] [id number] Unknown [id number] 2.16.840.1.067377.3.579.2.462 Unknown [id number] 2.16.840.1.306952.3.579.2.462 Unknown [id number] 2.16.840.1.401214.3.579.2.462 Unknown [id number] 2.16.840.1.368631.3.579.2.462 Unknown [id number] 2.16.840.1.954865.3.579.2.462 Unknown [id number] 2.840.1.468778.3.579.2.462 Unknown [id number] 2.16840.1.244180.3.579.2.462 Unknown [id number] 2.840.1.780811.3.579.2.462 Unknown [id number] 2.840.1.812890.3.579.2.462 Unknown [id number] 2.840.1.878928.3.579.2.462 Unknown [id number] 2.840.1.668618.3.579.2.462 Unknown [id number] 2.840.1.399891.3.579.2.462 Unknown [id number] 2.840.1.678650.3.579.2.462 Unknown [id number] 2.840.1.499234.3.579.2.462 Unknown [id number] 2.16840.1.047921.3.579.2.462 Unknown [id number] 2.16840.1.085703.3.579.2.462 Unknown [id number] 2.16840.1.960284.3.579.2.462 Unknown [id number] 2.16840.1.043469.3.579.2.462 Unknown [id number] 2.840.1.072622.3.579.2.462 Unknown [id number] 2.16.840.1.258862.3.579.2.462 Unknown [id number] 2.16.840.1.933382.3.579.2.462 Unknown [id number] [id number]2 Unknown [id number] [id number] Social History Date Type Detail Facility Start: 06-08-2016 End: 01-18-2025 Tobacco smoking status NHIS Never smoked tobacco [facility] Start: 07-03-2020 End: 08-14-2021 Alcohol intake Ex-drinker (finding) [facility] Start: 08-12-2021 End: 05-26-2022 History SDOH Alcohol Frequency [address] [facility] Start: 08-12-2021 End: 05-26-2022 History SDOH Social Connections Phone [address] [facility] Start: 08-12-2021 End: 05-26-2022 History SDOH Social Connections Get Together [address] [facility] Start: 08-12-2021 End: 05-26-2022 History SDOH Social Connections Living [address] [facility] Start: 06-25-2019 Education [address] [facility] Start: 1950 Sex Assigned At Male [facility] Start: 08-25-2020 End: 05-28-2022 Exposure to SARS-CoV-2 (event) Not sure [facility] Start: 01-25-2022 End: 11-07-2023 Tobacco smoking status NHIS Unknown if ever smoked [facility] Start: 05-30-2019 Non-smoker [facility] Start: 01-16-2022 End: 01-26-2022 Exposure to SARS-CoV-2 (event) Unable to assess [facility] Work Phone: Start: 06-08-2016 End: 03-24-2022 Tobacco use and exposure Smokeless tobacco non-user [facility] Start: 05-26-2022 History SDOH Alcohol Std Drinks [address] [facility] Start: 05-26-2022 History SDOH Physical Activity DPW [address] [facility] Start: 06-01-2020 End: 05-26-2022 History of Social function [facility] Start: 06-01-2020 End: 05-26-2022 Social connection and isolation panel [facility] Do you belong to any clubs or organizations such as zoroastrianism groups, unions, fraternal or athletic groups, or school groups? No [facility] Are you now , , , , never or living with a partner? [facility] How often to you hav e a drink containing alcohol? Never [facility] How many standard dr inks containing alcohol do you have on a typical day? Patient does not drink [facility] How hard is it for y ou to pay for the very basics like food, housing, medical care, and heating Somewhat hard [facility] Do you feel stress - tense, restless, nervous, or anxious, or unable to sleep at night because your mind is troubled all the time - these days [OSQ] Only a little [facility] (I/We) worried wheth er (my/our) food would run out before (I/we) got money to buy more. Never true [facility] Start: 01-05-2019 Gender identity Identifies as male gender (finding) [facility] Start: 04-11-2019 Sexual orientation Heterosexual (finding) [facility] Do you feel stress - tense, restless, nervous, or anxious, or unable to sleep at night because your mind is troubled all the time - these days [OSQ] Very much 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 acute October 27, 2024 11:00am Dizziness acute October 27, 2024 11:00am MCCONNELL (dyspnea on exertion) acute October 27, 2024 11:00am Syncope acute October 27, 2024 11:00am Essential hypertension chronic Ma y 2024 11:00am Pure hypercholesterolemia chronic October 27, 2024 11:00am Right bundle branch block chronic October 27, 2024 11:00am 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 acute January 18, 2025 9:06am MCCONNELL (dyspnea on exertion) acute January 18, 2025 9:06am Syncope acute January 18 9:06am Essential hypertension chronic ly 2024 9:06am Pure hypercholesterolemia chronic January 18, 2025 9:06am Right bundle branch block chronic January 18, 2025 9:06am [facility] Work Phone: [phone] Evaluation note* Diagnosis Onset Date Resolution Status Admit Date Thyroid nodule acute September 1:00pm 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 October 27, 2024 11:00am Dizziness acute October 27, 2024 11:00am MCCONNELL (dyspnea on exertion) acute October 27, 2024 11:00am Syncope acute October 27, 2024 11:00am Essential hypertension chronic Ma y 2024 11:00am Pure hypercholesterolemia chronic October 27, 2024 11:00am Right bundle branch block chronic October 27, 2024 11:00am 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 January 18, 2025 9:06am Dizziness acute January 18 9:06am MCCONNELL (dyspnea on exertion) acute January 18, 2025 9:06am Syncope acute January 18 9:06am Essential hypertension chronic ly 2024 9:06am Pure hypercholesterolemia chronic January 18, 2025 9:06am Right bundle branch block chronic January 18, 2025 9:06am [facility] Work Phone: [phone] Evaluation note* Diagnosis Onset Date Resolution Status Admit Date Thyroid nodule acute September 1:00pm 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 October 27, 2024 11:00am Dizziness acute October 27, 2024 11:00am MCCONNELL (dyspnea on exertion) acute October 27, 2024 11:00am Syncope acute October 27, 2024 11:00am Essential hypertension chronic Ma y 2024 11:00am Pure hypercholesterolemia chronic May 2nd, 2025 11:00am Right bundle branch block chronic October 27, 2024 11:00am 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 January 18, 2025 9:06am MCCONNELL (dyspnea on exertion) acute January 18, 2025 9:06am Syncope acute January 18 9:06am Essential hypertension chronic Ju 2024 9:06am Pure hypercholesterolemia chronic January 18, 2025 9:06am Right bundle branch block chronic January 18, 2025 9:06am [facility] Work Phone: [phone]) 725-506804-10-2025 Radiology Diagnostic study note [facility] Imaging Services [address] [place] [address] Thyroid MR#: [id number] Acct: [id number] Name: OSMAN PADGETT Rep #: [id number] : 1950 M 74 From: Vera Esparza MD PCP: Dr. Lenin Hidalgo MD Status: REG CLI Study:Thyroid Date of Exam: 10/05/24 Exam# [id number] Ordering Dr: Melinda Kirby MD PROCEDURE: THYROID [...] ACR TI-RADS criteria for follow-up. Reading Location: [id number] CC: Dr. Lenin Hidalgo MD; Dr. Miguel Kirby MD ~ Seo Intern: Signed [facility]04-10-2025 Radiology Diagnostic study note [facility] Imaging Services [address] [place] [address] Abdomen Limited MR#: [id number] Acct: [id number] Name: OSMAN PADGETT Rep #: [id number] : 1950 M 74 From: And neeraj Carl DO PCP: Dr. Lenin Hidalgo MD Status: REG CLI Study:Abdomen Limited Date of Exam: 09/26 Exam# [id number] Ordering Dr: Curtis Hidalgo MD PROCEDURE: Abdominal [...] of the examination is unremarkable. Reading Location: ZEYNEP CC: Dr. Lenin Hidalgo MD ~ Seo Intern: Signed [facility]01-10-2025 Evaluation note* Diagnosis Onset Date Resolution Status Admit Date 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 July 07 11:20am Dizziness acute July 07, 2024 11:20am MCCONNELL (dyspnea on exertion) acute July 07, 2024 11:20am SOB (shortness of breath) acute July 07, 2024 11:20am Essential hypertension chronic [facility]2024 11:20am Pure hypercholesterolemia chronic July 07, 2024 11:20am Right bundle branch block chronic July 07, 2024 11:20am [facility] Work Phone: 1(250) 520-384506-03-2024 NoteHNO ID: [id number] Author: MINNA JACKMAN MA Service: ? Author Type: Hardwood Floor Sander Type: Progress Notes Filed: 11/29/2023 10:32 Note Text: POPULATION HEALTH NAVIGATION OUTREACH Action/FYI PCP is Dr. Hidalgo per chart PCP FIELD UPDATES Reason for Outreach Care Gap/HCC or Scheduling Wellness Visits Care Gaps due: Establish Care Appointment Patient Contacted: Unable or unnecessary to reach patient: PCP field updated Navigation Signature: Minna Jackman MA November 29, 2023 10:29 [facility]06-03-2024 History of Present illness Narrative* Minna Jackman MA - 11/29/2023 10:29 AM EDT POPULATION HEALTH NAVIGATION OUTREACH Action/I PCP is Dr. Hidalgo per chart PCP FIELD UPDATES Reason for Outreach Care Gap/HCC or Scheduling Wellness Visits Care Gaps due: Establish Care Appointment Patient Contacted: Unable or unnecessary to reach patient: PCP field updated Navigation Signature: Minna Jackman MA November 29, 2023 10:29 AM documented in this encounterMer[facility] NotePatient Outreach (NETNAV) OSMAN PADGETT ([id number]) 1950 M Date Time Provider Department 11/29/23 MINNA JACKMAN NETMIHAELAV During your visit today, we recorded the following information about you: Minna Jackman MA 11/29/2023 10:32 AM Signed POPULATION HEALTH NAVIGATION OUTREACH Action/I PCP is Dr. Hidalgo [...] Comments: Confusion PENICILLINS 11/18/2005 2 - Rash RCRJHXP-TZA-ENA REDUCTASE INHIBIT*05/18/2022 1 - Mental Status Change [...] chron*08/27/2022 Encounter Status:Closed by MINNA JACKMAN on 11/29/23[facility]05-13-2024 Discharge summary Author Lenin Koo [facility] November 08, 2023 7:02am Note Date/Time November 07, 2023 10:43 am [facility] Medical Records Department [address] [place] [address] Emergency Department Summary 11/07/23 MR#: [id number] Acct: [id number] Name: OSMAN PADGETT Rep #:[id number] : 1950 73 From: Fredrick Singh PCP: Dr. Lenin Hidalgo MD Status:REG ER Location: ED ADDENDUM by Dr. Lenin Koo DO on 11/08/23 at 0702 Care of the patient was turned over to id pending bed assignment at the geropsychiatric facility. Patient remained calm and cooperative here in the emergency department. Patient did not require any medications or interventions. Care of the patient was turned over to the oncoming physician pending bed assignment and transfer to geropsychiatric facility. 11/08/23 0702<Electronically signed by Lenin Koo DO> Cosigner Signature (if applicable): cc: Dr. Lenin Hidalgo MD ~* Signed HPI History of Present Illness Chief Complaint: Anxiety [facility] Medical History Abnormal stress test Acquired [...] Penicillins Allergy Intermediate Rash Verified 11/06/23 08:13 Mwngvvn-FSI-KvM Reductase Allergy Intermediate Other Verified 11/06/23 08:13 Inhibitor trazodone Allergy Intermediate Other Verified 11/06/23 08:13 atorvastatin AdvReac Intermediate "messed Verified 11/06/23 08:13 with my head" simvastatin AdvReac Intermediate "messed Verified 11/06/23 08:13 with my head" Family History Mother Cancer breast Diabetes Thyroid [...] Psychiatric Facility This note was generated with [employer] dictation software. It may contain incorrectwords, spelling, [...] 78.8 H Lymph % (Auto) 11.4 L [place] % (Auto) 7.5 Eos % (Auto) 1.2 [...] Clarity Clear Urine pH 7.0 Ur Specific [place] 1.020 Urine Protein Negative Urine Glucose (UA) [...] Signed: Abisai Jennings MD at 13:03 EDT , Chest X-Ray 11/07/23 11:23 IMPRESSION: No [...] your Primary Care Provider. Call [facility] ([phone]) or report to the closest Emergency Room. Call 911 if necessary. 11/07/232126 <Electronically signed by Fredrick Dorsey DO> Cosigner Signature (if applicable): CC: Dr. Lenin Hidalgo MD ~ Signed [facility] Work Phone: [phone]) 565-972201-18-2024 NoteHNO ID: [id number] Author: PETTY JOE RN Service: ? Author [...] he is changing to a non [facility] PCP.[facility] 07-15-2023 NotePatient Outreach (AMBG) OSMAN PADGETT ([id number]) 1950 M Date Time Provider Department 07/15/23 PETTY JOETorrie During your visit today, we recorded the following information about you: Petty Joe RN 07/15/2023 10:58 AM Signed CDM Telephonic [...] Comments: Confusion PENICILLINS 11/18/2005 2 - Rash NHXFWJL-IYY-VQK REDUCTASE INHIBIT*05/18/2022 1 - Mental Status Change [...] chron*08/27/2022 Encounter Status:Closed by PETTY JOE on 07/15/23[facility] 05-17-2023 NoteHNO ID: [id number] Author: Petty Joe RN Service: ? Author Type: Registered Nurse Type: Progress Notes Filed: 05/17/2023 8:36 AM Note Text: [facility] Telephonic Outreach Provider Action/FYI Contacted for: Routine Telephonic Outreach Contact made with patient: Yes Patient identified by name and date of . Discussed care with patient Are you experiencing any new or worsening symptoms you need to talk about today? Patient reports he no longer has a [facility] provider.[facility]11-20-2023 NotePatient Outreach (AMBCMG) OSMAN PADGETT ([id number]) 1950 Date Time Provider Department 05/17/23 PETTY JOE [facility] During your visit today, we recorded the following information about you: Petty Joe RN 05/17/2023 8:36 AM Signed [facility] Telephonic Outreach Provider Action/FYI Contacted for: Routine [...] Comments: Confusion PENICILLINS 11/18/2005 2 - Rash QICRNGE-XMC-WIJ REDUCTASE INHIBIT*05/18/2022 1 - Mental Status Change [...] chron*08/27/2022 Encounter Status:Closed by PETTY JOE on 05/17/23[facility] 05-03-2023 NoteHNO ID: [id number] Author: Petty Joe RN Service: ? Author Type: Registered Nurse Type: Progress Notes Filed: 05/03/2023 3:32 PM Note Text: CDM Telephonic Outreach Provider Action/FYI Converted to telephonic Contacted for: Routine Telephonic Outreach Contact made with patient: No, left message. Petty Joe RN May 03, 2023 3:30 [facility]CM[facility]11[facility] History of Present illness Narrative* Petty Joe RN - 05/03/2023 3:30 PM EST [facility] Telephonic Outreach Provider Action/FYI Converted to telephonic Contacted for: Routine Telephonic Outreach Contact made with patient: No, left message. Petty Joe RN May 03, 2023 3:30 PM documented in this encounterMer[facility]11-[facility]-2023 NotePatient Outreach (AMBCMG) DAYRONOSMAN PIZARRO ([id number]) 1950 M Date Time Provider Department 05/03/23 [...] Comments: Confusion PENICILLINS 11/18/2005 2 - Rash FRCVJYA-MAA-WTX REDUCTASE INHIBIT*05/18/2022 1 - Mental Status Change [...] chron*08/27/2022 Encounter Status:Closed by PETTY JOE on 05/03/23[facility] 01-06-2023 Miscellaneous Notes* Addendum Note - Michael Segal MD - 01/06/2023 2:29 PM EDTAddended by: MICHAEL SEGAL on: 01/06/2023 02:29 PM Modules accepted: Orders documented in this encounterMercy [facility] St. [facility]03-17-2023 Miscellaneous Notes* Telephone Encounter - Rosetta Rahman LPN - 09/11/2022 12:56 PM EDT Patient notified of providers message below. Voices understanding. Rosetta Rahman LPN * Telephone Encounter - Evelina Shafer MD - 09/11/2022 11:50 AM EDT Diabetes well controlled. Magnesium level normal. Sodium level low which is similar to his previous labs. Potassium level elevated. Patient needs to follow up with his order schedule clerk regarding low sodium levels. Will recheck potassium level early next week to rule out lab error. No change to regimen. documented in this encounterMercy Health St. [facility]03-16-2023 History of Present illness Narrative* Evelina Shafer [...] his sodium level was low 129 at [facility] on 03/[address] Gerard's office [...] Ophthalmology exam was within the past 3 months-[facility] about 1 month ago. No reported retinopathy Last Podiatry exam was more than 12 months ago [facility] Cardiology started him on zetia at last [...] [Atorvastat* Mental Status Change Confusion Penicillins Rash Jljyakg-Clv-Qcp Red* Mental Status Change Thiazides Contraindication-Medical Surgical [...] cardiology. Evelina Shafer MD documented in this encounterMer[facility] St. [facility]03-16-2023 Evaluation note* Diagnosis Type 2 diabetes mellitus [...] recurrent episode, moderate documented in this encounter [facility]02-24-2023 Instructions* Patient Instructions* Michael Segal MD [...] 500 mg. Maybe this is leaving you "sedated" in the morning. Call me with any problems. Follow up with me in 6 months. Michael Segal MD documented in this encounterMercy Health St. [facility]02-24-2023 History of Present illness Narrative* Michael Segal MD - 08/21/2022 11:25 AM EST Images from the original note were not included. [facility] Follow up/ Established [...] or near accidents due to drowsy drivin [place] Sleepiness Scale 06/04/2022 08/14/2022 Score 2 (No [...] [Atorvastat* Mental Status Change Confusion Penicillins Rash Qietjkm-Acu-Njz Red* Mental Status Change Thiazides Contraindication-Medical Surgical [...] after maximal dose achieved, contact PACU residential glazier/LIP/staff for reassessment. Starting date: 12/20/2020 Ending date: [...] 500 mg. Maybe this is leaving you "sedated" in the morning. Call me with any problems. Follow up with me in 6 months. Michael Segal MD I spent 25 minutes in the visit, with more than 50% of the total guwd-ni-dhap time of the visit in counseling / coordination of care. documented in this encounterMercy Health St. [facility]01-25-2023 Miscellaneous Notes* Telephone Encounter - Clotilde Colón Pss - 07/22/2022 11:19 AM EST Patient contacted. Attempted to schedule follow up with Dr. Orantes. Patient declined at this time. States he will call if/when he needs any further care. Patient is also not interested in physical therapy right now. documented in this encounterMer[facility]. [facility]01-24-2023 Miscellaneous Notes* Telephone Encounter - Abril Vallecillo LPN - 07/21/2022 8:08 AM EST Phoned patient to advise that a 90 day supply with 1 refill was sent to [facility] on 06/01/22. He stated he would follow up with Vladislav. documented in this encounterMercy [facility] St. [facility]01-19-2023 Miscellaneous Notes* Telephone Encounter - Dianna So RN - 07/16/2022 8:57 AM EST MyChart message sent documented in this encounterMercy [facility] St. [facility]12-27-2022 Miscellaneous Notes* Telephone Encounter - Dianna So RN - 06/23/2022 11:09 AM EST MyChart message sent documented in this encounterMer[facility] St. [facility]12-09-2022 History of Present illness Narrative* Michael Segal MD - 06/05/2022 5:00 PM EST Images from the original note were not included. [facility] Follow up/ Established [...] or near accidents due to drowsy drivin [place] Sleepiness Scale 06/04/2022 Score 2 (No daytime [...] [Atorvastat* Mental Status Change Confusion Penicillins Rash Dozbduw-Xzg-Esa Red* Mental Status Change Thiazides Contraindication-Medical Surgical [...] after maximal dose achieved, contact PACU residential glazier/LIP/staff for reassessment. Starting date: 12/20/2020 Ending date: [...] directed. Michael Segal MD documented in this encounterMercy Health St. [facility]12-05-2022 History of Present illness Narrative* Evelina [...] [Atorvastat* Mental Status Change Confusion Penicillins Rash Byfovhn-Ntd-Vin Red* Mental Status Change Thiazides Contraindication-Medical Surgical [...] above. Evelina Shafer MD documented in this encounterMercy [facility] St. [facility]12-01-2022 Miscellaneous Notes* Telephone Encounter - Abril [...] of results and PCP's recommendations. Patient stated "I hate to waste medicare's money and everyone's time for something on my labs where I've been consistently high onmy potassium and low on my sodium. I know we've reviewed this before and he's told me it could be dehydration. Please tell him I appreciate his time and patience with me but I would rather not repeatthis if it's not really necessary." Advised patient I would update PCP with [...] keep scheduled follow up. documented in this encounterMercy Health St. [facility]11-30-2022 History of Present illness Narrative* Yeimi Salazar, [...] 2022 TIME: 9:41 AM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 assessment information availableWSelect Medical Special[facility] Work Phone: Evaluation note* Diagnosis Dehydration- Primary TRUPTI (acute kidney injury) (HCC) Acute kidney failure, unspecified Moderate episode of recurrent major depressive disorder (HCC) documented in this encounter [facility]* Diagnosis Anxiety with depression- Primary documented in this encounter [facility] note* Diagnosis Onset Date Resolution Status Abnormal electrocardiogram a cute MCCONNELL (dyspnea on exertion) ac tazlina Fatigue acute Essential hypertension chron ic Pure hypercholesterolemia ch ronic Right bundle branch block [facility] Work Phone: Evaluation note* Diagnosis Onset Date Resolution Status MCCONNELL (dyspnea on exertion) ac tazlina Fatigue acute Essential hypertension chron ic Pure hypercholesterolemia ch ronic Right bundle branch block [facility] Work Phone: Evaluation note* Diagnosis Suspected COVID-19 virus infection- Primary Exposure to confirmed case of COVID-19 documented in this encounter [facility]* Diagnosis Primary hypertension- Primary Unspecified essential hypertension Brain fog History of COVID-19 documented in this encounter [facility]* Diagnosis Anxiety with depression documented in this 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* Diagnosis BPH with obstruction/lower urinary tract symptoms- Primary Hypertrophy of prostate with urinary obstruction and other lower urinary tract symptoms (LUTS) documented in this encounter [facility]* Diagnosis Non-seasonal allergic rhinitis, unspecified trigger- Primary documented in this encounter [facility]* Diagnosis BPH with obstruction/lower urinary tract symptoms- Primary Hypertrophy of prostate with urinary obstruction and other lower urinary tract symptoms (LUTS) Gross hematuria Erectile dysfunction, unspecified erectile dysfunction type documented in this encounter [facility]* Diagnosis Anxiety with depression- Primary Nausea Nausea alone documented in this encounter [facility]* Diagnosis RLS (restless legs syndrome)- Primary Restless legs syndrome (RLS) documented in this encounter [facility]* Diagnosis Hyperkalemia- Primary Hyperpotassemia documented in this encounter [facility]* Diagnosis RLS (restless legs syndrome)- Primary Restless legs syndrome (RLS) documented in this encounter [facility]* Diagnosis Hyperkalemia- Primary Hyperpotassemia documented in this encounter [facility]* Diagnosis 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 classified elsewhere RLS (restless legs syndrome) Restless legs syndrome (RLS) documented in this encounter [facility]* Diagnosis Gross hematuria documented in this encounter [facility]* Diagnosis Onset Date Resolution Status 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 Hyponatremia acute Essential hypertension chron ic Pure hypercholesterolemia ch ronic Right bundle branch block ch [facility] Work Phone: Evaluation note* Diagnosis Onset Date Resolution Status 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 Hyponatremia acute Essential hypertension chron ic Pure hypercholesterolemia ch ronic Right bundle branch block ch ronic Thyroid nodule acute [facility] Work Phone: Evaluation note* Diagnosis Onset Date Resolution Status Thyroid nodule acute [facility] Work Phone: Evaluation note* Diagnosis Pre-operative examination- Primary Preoperative examination, unspecified BPH with obstruction/lower urinary tract symptoms Hypertrophy of prostate with urinary obstruction and other lower urinary tract symptoms (LUTS) Stage 3a chronic kidney disease (HCC) Claustrophobia Other isolated or specific phobias Controlled type 2 diabetes mellitus without complication, without long-term current use of insulin ([facility]) Essential hypertension Unspecified essential hypertension Pure hypercholesterolemia Other right bundle-branch block Hyperreflexia Abnormal reflex Ataxia Lack of coordination Dizziness and giddiness Myalgias Muscle tightness Unspecified disorder of muscle, ligament, and fascia Lumbar spondylosis Lumbosacral spondylosis without myelopathy documented in this encounter [facility] Diagnosis Acute pain of both knees [...] right bundle-branch block documented in this encounter [facility] Discharge instructions Additional Instructions Stop taking the clonazepam and replace with the Ativan 1 mg by mouth twice a day as needed for anxiety. You may need to have your metformin increased to 1000 mg by mouth twice a day, but ask your primary care physician about this when you follow-up with him on Wednesday. [facility] Work Phone: [facility] for referral (narrative)* Diagnostic Procedure Only (Routine) - Closed Specialty Diagnoses / Procedures Referred By Contac t Referred To Contact XR IMAGING Diagnoses Pain Procedures XR FOOT GENERAL 3V AP/LAT/OBL BILATERAL RADEX FOOT COMPLETE MINIMUM 3 VIEWS Daniel Alexandre [address] [place] [address] Xr Imaging Referral ID Status Reason Start Date Expiration Date V isits Requested Visits Authorized [id number] Closed Auto-Generate d Referral 12/26/2021 01/25/2023 1 1 [facility] for referral (narrative)* Diagnostic Procedure Only (Routine) - Closed Specialty Diagnoses / Procedures Referred By Contac t Referred To Contact XR IMAGING Diagnoses Hyperreflexia Ataxia Dizziness and giddiness Myalgias Muscle tightness Lumbar spondylosis Procedures XR LUMBAR GENERAL 3V AP/LAT/L5-S1 X-RAY L-S SPINE AP/LATERAL Osman Allison Jr., MD [address] [address] [place] [address] Referral ID Status Reason Start Date Expiration Date V isits Requested Visits Authorized [id number] Closed Auto-Generate d Referral 06/30/2021 07/30/2022 1 1 * Diagnostic Procedure Only (Routine) - Closed Specialty Diagnoses / Procedures Referred By Contac t Referred To Contact XR IMAGING Diagnoses Hyperreflexia Ataxia Dizziness and giddiness Myalgias Muscle tightness Procedures XR CERV GENERAL 2V AP/LAT CERVICAL AP/LAT + ODONTOID/A21 Osman Allison Jr., MD [address] [facility] [address] [place] [address] [place] [address] Referral ID Status Reason Start Date Expiration Date V isits Requested Visits Authorized [id number] Closed Auto-Generate d Referral 06/30/2021 07/30/2022 1 1 [facility] for referral (narrative)No reason for referral information [facility]: Reason for visit Narrative* Diagnostic Procedure Only (Routine) - Closed Specialty Diagnoses / Procedures Referred By Contac t Referred To Contact XR IMAGING Diagnoses Pain Procedures XR FOOT GENERAL 3V AP/LAT/OBL BILATERAL RADEX FOOT COMPLETE MINIMUM 3 VIEWS Daniel Alexandre [address] [place] [address] Xr Imaging Referral ID Status Reason Start Date Expiration Date V isits Requested Visits Authorized [id number] Closed Auto-Generate d Referral 12/26/2021 01/25/2023 1 1 [facility] for visit Narrative* Diagnostic Procedure Only (Routine) - Closed Specialty Diagnoses / Procedures Referred By Contac t Referred To Contact XR IMAGING Diagnoses Hyperreflexia Ataxia Dizziness and giddiness Myalgias Muscle tightness Lumbar spondylosis Procedures XR LUMBAR GENERAL 3V AP/LAT/L5-S1 X-RAY L-S SPINE AP/LATERAL Osman Allison Jr., MD [address] [facility] [address] [place] [address] [place] [address] Referral ID Status Reason Start Date Expiration Date V isits Requested Visits Authorized [id number] Closed Auto-Generate d Referral 06/30/2021 07/30/2022 [address] 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 Advance Directive(s) 12/02/2020 9:50 AM Advance Directive Response Recorded Date/ Time Living Will No January 25, 2022 4:24pm Power of Ice Handler No January 25 4:24pm Advance Directive Response Recorded Date/ Time Advance Directives on File No [facility] 2021 10:25am Advance Directives Yes February 10:25am Living Will Yes March 16, 2022 10:25am Power of Ice Handler Yes February 10:25am Advance Directive Response Recorded Date/ Time Advance Directives on File No [facility] 2021 10:25am Name of Medical Power of Ice Handler alexis herring March 31, 2022 10:28am Advance Directives Yes February 10:25am Living Will Yes March 31 10:28am Power of Ice Handler Yes March 31 10:28am Advance Directive Response Recorded Date/ Time Advance Directives Yes February 10:25am Living Will Yes March 31 10:28am Power of Ice Handler Yes March 31 10:28am Advance Directive Response Recorded Date/ Time Advance Directives Yes February 9:25am Living Will Yes March 31 9:28am Power of Ice Handler Yes March 31 9:28am Advance Directive Response Recorded Date/ Time Name of Medical Power of Ice Handler alexis houser November 06, 2023 8:17am Advance Directives Yes February 10:25am Living Will No November 06, 2023 8 :17am Power of Ice Handler Yes November 06, 2023 8:17am Advance Directive Response Recorded Date/ Time Name of Medical Power of Ice Handler alexis houser November 06, 2023 8:17am Advance Directives Yes February 10:25am Living Will No November 07, 2023 1 1:13am Power of Ice Handler No November 07, 2023 11:13am Advance Directive Response Recorded Date/ Time Advance Directives Yes February 10:25am Advance Directive Response Recorded Date/ Time Living Will No November 07, 2023 1 1:13am Do you have a Healthcare Power of Ice Handler? No November 07, 2023 11:13am Advance Directives Yes February 10:25am Chief Complaint and Reason for Visit Chief Complaint "lots of things mohsen g on" Chief Complaint "lots of things mohsen g on" MCCONNELL, fatigue, wants stress test. [facility] FATUGUE, DYSPNEA Amb Documentation E ORDER Reason for Visit Abnormal electrocard iogram MCCONNELL (dyspnea on exertion) Fatigue Essential hypertension Pure hypercholesterolemia Right bundle branch block Chief Complaint "lots of things mohsen g on" MCCONNELL, fatigue, wants stress test. [facility] FATUGUE, DYSPNEA Amb Documentation E ORDER ABN STRESS TEST, MCCONNELL, FATIGUE ABN STRESS TEST, MCCONNELL, FATIGUE Reason for Visit MCCONNELL (dyspnea on exer tion) Fatigue Essential hypertension Pure hypercholesterolemia Right bundle branch block Chief Complaint "lots of things mohsen g on" MCCONNELL, fatigue, wants stress test. [facility] FATUGUE, DYSPNEA Amb Documentation E ORDER ABN STRESS TEST, MCCONNELL, FATIGUE ABN STRESS TEST, MCCONNELL, FATIGUE GENERAL ILLNESS Reason for Visit MCCONNELL (dyspnea on exer tion) Fatigue Essential hypertension Pure hypercholesterolemia Right bundle branch block Chief Complaint EORDER Chief Complaint EORDER 1 Y FU Reason for Visit Atherosclerotic hear t disease of council coronary artery without angina pectoris Hyponatremia Essential hypertension Pure hypercholesterolemia Right bundle branch block Chief Complaint 1 Y FU Reason for Visit Atherosclerotic hear t disease of council coronary artery without angina pectoris Hyponatremia Essential hypertension Pure hypercholesterolemia Right bundle branch block Chief Complaint 1 Y FU 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 Reason for Visit Atherosclerotic hear t disease of council coronary artery without angina pectoris Hyponatremia Essential hypertension Pure hypercholesterolemia Right bundle branch block Chief Complaint 1 Y FU 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 ABN THYROID BLOOD TEST Reason for Visit Atherosclerotic hear t disease of council coronary artery without angina pectoris Hyponatremia Essential hypertension Pure hypercholesterolemia Right bundle branch block Chief Complaint 1 Y FU 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 ABN THYROID BLOOD TEST E ORDER Reason for Visit Atherosclerotic hear t disease of council coronary artery without angina pectoris Hyponatremia Essential hypertension Pure hypercholesterolemia Right bundle branch block Chief Complaint 1 Y FU 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 ABN THYROID BLOOD TEST E ORDER THYROID NODULE E ORDERS Reason for Visit Atherosclerotic hear t disease of council coronary artery without angina pectoris Hyponatremia Essential hypertension Pure hypercholesterolemia Right bundle branch block Thyroid nodule Chief Complaint Other specified abno rmal findings of blood nuclear chemistry technician ABN THYROID BLOOD TEST E ORDER THYROID NODULE E ORDERS anxiety Reason for Visit Thyroid nodule Chief Complaint Other specified abno rmal findings of blood nuclear chemistry technician ABN THYROID BLOOD TEST E ORDER THYROID NODULE E ORDERS anxiety anxiety Reason for Visit Thyroid nodule Chief Complaint Admit Date Neoplasm of unspecified behavior of bone , soft tis June 12, 2024 9:52am ABN ECHO July 07, 2024 1 1:20am SOB July 28, 2024 7 :20am Reason for Visit Admit Date 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 July 07, [...] 1:0 0pm 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 October 27, 2024 11:00am Dizziness October 27, 2024 11:00a m MCCONNELL (dyspnea on exertion) October 27, 2024 11:00am Syncope October 27, 2024 11:00a m Essential hypertension October 27, 2024 11: 00am Pure hypercholesterolemia October 27, 2024 11:00am Right bundle branch block October 27, 2024 11:00am 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 January 18, 2025 9:06am Dizziness January 18, 2025 9:06 am MCCONNELL (dyspnea on exertion) January 18 9:06am Syncope January 18, 2025 9:06 am Essential hypertension January 18, 2025 9 :06am Pure hypercholesterolemia January 18 9:06am Right bundle branch block January 18 9:06am Chief Complaint Admit Date 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, 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: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 RECALL THYROID October 16, 2024 1:0 0pm ABN HOLTER October 27, 2024 11:00a m 1 Y FU January 18, 2025 9:06 am MCCONNELL, FATIGUE January 24, 2025 6:28 am MCCONNELL, FATIGUE January 24, 2025 3:32 pm Amb Documentation January 25, 2025 7:54 am Reason for Visit Admit Date Thyroid nodule October 16, 2024 1:0 0pm 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 October 27, 2024 11:00am Dizziness October 27, 2024 11:00a m MCCONNELL (dyspnea on exertion) October 27, 2024 11:00am Syncope October 27, 2024 11:00a m Essential hypertension October 27, 2024 11: 00am Pure hypercholesterolemia October 27, 2024 11:00am Right bundle branch block October 27, 2024 11:00am 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 January 18, 2025 9:06am MCCONNELL (dyspnea on exertion) January 18 9:06am Syncope January 18, 2025 9:06 am Essential hypertension January 18, 2025 9 :06am Pure hypercholesterolemia January 18 9:06am Right bundle branch block January 18 9:06am Chief Complaint Admit Date ABN HOLTER October 27, 2024 11:00a m 1 Y FU January 18, 2025 9:06 am MCCONNELL, FATIGUE January 24, 2025 6:28 am MCCONNELL, FATIGUE January 24, 2025 3:32 pm Amb Documentation January 25, 2025 7:54 am Reason for Visit Admit Date 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 October 27, 2024 11:00am Dizziness October 27, 2024 11:00a m MCCONNELL (dyspnea on exertion) October 27, 2024 11:00am Syncope October 27, 2024 11:00a m Essential hypertension October 27, 2024 11: 00am Pure hypercholesterolemia October 27, 2024 11:00am Right bundle branch block October 27, 2024 11:00am 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 January 18, 2025 9:06am MCCONNELL (dyspnea on exertion) January 18 9:06am [...] COMPLEX 45 MINS Evelina Shafer MD [address] [place] [address] [facility] [address] [address] Referral ID Status Reason Start Date Expiration Date Visits Requested Visits Authorized [id number] Authorized PCP Requested Referral Auto-Generate d Referral 05/01/2022 05/01/2023 99 99 Specialty Diagnoses / Procedures Referred By Sam collins Referred To Contact CT IMAGING Diagnoses Gross hematuria Procedures CT UROGRAM WO/W IVCON CT ABD & PELVIS W/O CONTRST 1+ BODY REGNS [facility] [address] [place] [address] Ct Imaging Referral ID Status Reason Start Date Expiration Date Visits Requested Visits Authorized [id number] Authorized Auto-Generat ed Referral 06/17/2023 1 1 Specialty Diagnoses / Procedures Referred By Sam collins Referred To Contact CT IMAGING Diagnoses Gross hematuria Procedures CT UROGRAM WO/W IVCON CT ABD & PELVIS W/O CONTRST 1+ BODY REGNS [facility] [address] [place] [address] [place] [id number] Referral ID Status Reason Start Date Expiration Date V isits Requested Visits Authorized [id number] Closed Auto-Generate d Referral 05/18/2022 06/17/2023 1 [...] section and content) DATE CREATED AUTHOR 07/25/[address] [facility] DATE CREATED AUTHOR AUTHOR'S ORGANIZ ATION 06/29/2022 [facility] DATE CREATED AUTHOR AUTHOR'S ORGANIZ ATION 11/29/2023 [facility] DATE CREATED AUTHOR AUTHOR'S ORGANIZ ATION 02/20/2025 [facility] Source Comments (unrecognize d section and content) In the event this informatio n is protected by the Federal Confidentiality of Alcohol and Drug Abuse Patient Records regulations: The Federal rules restrict any use of the information to criminally investigate or prosecute any alcohol or drug abuse patient.[facility] the event this information is protected by the Federal Confidentiality of Alcohol and Drug Abuse Patient Records regulations: The Federal rules restrict any use of the information to criminally investigate or prosecute any alcohol or drug abuse patient.[facility] the event this information is protected by the Federal Confidentiality of Alcohol and Drug Abuse Patient Records regulations: The Federal rules restrict any use of the information to criminally investigate or prosecute any alcohol or drug abuse patient.[facility] the event this information is protected by the Federal Confidentiality of Alcohol and Drug Abuse Patient Records regulations: The Federal rules restrict any use of the information to criminally investigate or prosecute any alcohol or drug abuse patient.[facility] the event this information is protected by the Federal Confidentiality of Alcohol and Drug Abuse Patient Records regulations: The Federal rules restrict any use of the information to criminally investigate or prosecute any alcohol or drug abuse patient.[facility] the event this information is protected by the Federal Confidentiality of Alcohol and Drug Abuse Patient Records regulations: The Federal rules restrict any use of the information to criminally investigate or prosecute any alcohol or drug abuse patient.[facility] Hospital[facility] the event this information is protected by the Federal Confidentiality of Alcohol and Drug Abuse Patient Records regulations: The Federal rules restrict any use of the information to criminally investigate or prosecute any alcohol or drug abuse patient.[facility] the event this information is protected by the Federal Confidentiality of Alcohol and Drug Abuse Patient Records regulations: The Federal rules restrict any use of the information to criminally investigate or prosecute any alcohol or drug abuse patient.[facility] Hospital[facility] the event this information is protected by the Federal Confidentiality of Alcohol and Drug Abuse Patient Records regulations: The Federal rules restrict any use of the information to criminally investigate or prosecute any alcohol or drug abuse patient.[facility] Hospital[facility] the event this information is protected by the Federal Confidentiality of Alcohol and Drug Abuse Patient Records regulations: The Federal rules restrict any use of the information to criminally investigate or prosecute any alcohol or drug abuse patient.[facility] Hospital[facility] the event this information is protected by the Federal Confidentiality of Alcohol and Drug Abuse Patient Records regulations: The Federal rules restrict any use of the information to criminally investigate or prosecute any alcohol or drug abuse patient.[facility] Hospital[facility] the event this information is protected by the Federal Confidentiality of Alcohol and Drug Abuse Patient Records regulations: The Federal rules restrict any use of the information to criminally investigate or prosecute any alcohol or drug abuse patient.[facility] Hospital[facility] the event this information is protected by the Federal Confidentiality of Alcohol and Drug Abuse Patient Records regulations: The Federal rules restrict any use of the information to criminally investigate or prosecute any alcohol or drug abuse patient.[facility] HospitalIn the event this information is protected by the Federal Confidentiality of Alcohol and Drug Abuse Patient Records regulations: The Federal rules restrict any use of the information to criminally investigate or prosecute any alcohol or drug abuse patient.[facility] HospitalIn the event this information is protected by the Federal Confidentiality of Alcohol and Drug Abuse Patient Records regulations: The Federal rules restrict any use of the information to criminally investigate or prosecute any alcohol or drug abuse patient.[facility] HospitalIn the event this information is protected by the Federal Confidentiality of Alcohol and Drug Abuse Patient Records regulations: The Federal rules restrict any use of the information to criminally investigate or prosecute any alcohol or drug abuse patient.[facility] HospitalIn the event this information is protected by the Federal Confidentiality of Alcohol and Drug Abuse Patient Records regulations: The Federal rules restrict any use of the information to criminally investigate or prosecute any alcohol or drug abuse patient.[facility] HospitalIn the event this information is protected by the Federal Confidentiality of Alcohol and Drug Abuse Patient Records regulations: The Federal rules restrict any use of the information to criminally investigate or prosecute any alcohol or drug abuse patient.[facility] HospitalIn the event this information is protected by the Federal Confidentiality of Alcohol and Drug Abuse Patient Records regulations: The Federal rules restrict any use of the information to criminally investigate or prosecute any alcohol or drug abuse patient.[facility] HospitalIn the event this information is protected by the Federal Confidentiality of Alcohol and Drug Abuse Patient Records regulations: The Federal rules restrict any use of the information to criminally investigate or prosecute any alcohol or drug abuse patient.[facility] HospitalIn the event this information is protected by the Federal Confidentiality of Alcohol and Drug Abuse Patient Records regulations: The Federal rules restrict any use of the information to criminally investigate or prosecute any alcohol or drug abuse patient.[facility] HospitalIn the event this information is protected by the Federal Confidentiality of Alcohol and Drug Abuse Patient Records regulations: The Federal rules restrict any use of the information to criminally investigate or prosecute any alcohol or drug abuse patient.[facility] HospitalIn the event this information is protected by the Federal Confidentiality of Alcohol and Drug Abuse Patient Records regulations: The Federal rules restrict any use of the information to criminally investigate or prosecute any alcohol or drug abuse patient.[facility] HospitalIn the event this information is protected by the Federal Confidentiality of Alcohol and Drug Abuse Patient Records regulations: The Federal rules restrict any use of the information to criminally investigate or prosecute any alcohol or drug abuse patient.[facility] HospitalIn the event this information is protected by the Federal Confidentiality of Alcohol and Drug Abuse Patient Records regulations: The Federal rules restrict any use of the information to criminally investigate or prosecute any alcohol or drug abuse patient.[facility] HospitalIn the event this information is protected by the Federal Confidentiality of Alcohol and Drug Abuse Patient Records regulations: The Federal rules restrict any use of the information to criminally investigate or prosecute any alcohol or drug abuse patient.[facility] HospitalIn the event this information is protected by the Federal Confidentiality of Alcohol and Drug Abuse Patient Records regulations: The Federal rules restrict any use of the information to criminally investigate or prosecute any alcohol or drug abuse patient.[facility] HospitalIn the event this information is protected by the Federal Confidentiality of Alcohol and Drug Abuse Patient Records regulations: The Federal rules restrict any use of the information to criminally investigate or prosecute any alcohol or drug abuse patient.[facility] HospitalIn the event this information is protected by the Federal Confidentiality of Alcohol and Drug Abuse Patient Records regulations: The Federal rules restrict any use of the information to criminally investigate or prosecute any alcohol or drug abuse patient.[facility] HospitalIn the event this information is protected by the Federal Confidentiality of Alcohol and Drug Abuse Patient Records regulations: The Federal rules restrict any use of the information to criminally investigate or prosecute any alcohol or drug abuse patient.[facility] HospitalIn the event this information is protected by the Federal Confidentiality of Alcohol and Drug Abuse Patient Records regulations: The Federal rules restrict any use of the information to criminally investigate or prosecute any alcohol or drug abuse patient.[facility] HospitalIn the event this information is protected by the Federal Confidentiality of Alcohol and Drug Abuse Patient Records regulations: The Federal rules restrict any use of the information to criminally investigate or prosecute any alcohol or drug abuse patient.[facility] HospitalIn the event this information is protected by the Federal Confidentiality of Alcohol and Drug Abuse Patient Records regulations: The Federal rules restrict any use of the information to criminally investigate or prosecute any alcohol or drug abuse patient.[facility] HospitalIn the event this information is protected by the Federal Confidentiality of Alcohol and Drug Abuse Patient Records regulations: The Federal rules restrict any use of the information to criminally investigate or prosecute any alcohol or drug abuse patient.[facility] HospitalIn the event this information is protected by the Federal Confidentiality of Alcohol and Drug Abuse Patient Records regulations: The Federal rules restrict any use of the information to criminally investigate or prosecute any alcohol or drug abuse patient.[facility] HospitalIn the event this information is protected by the Federal Confidentiality of Alcohol and Drug Abuse Patient Records regulations: The Federal rules restrict any use of the information to criminally investigate or prosecute any alcohol or drug abuse patient.[facility] HospitalIn the event this information is protected by the Federal Confidentiality of Alcohol and Drug Abuse Patient Records regulations: The Federal rules restrict any use of the information to criminally investigate or prosecute any alcohol or drug abuse patient.[facility] HospitalIn the event this information is protected by the Federal Confidentiality of Alcohol and Drug Abuse Patient Records regulations: The Federal rules restrict any use of the information to criminally investigate or prosecute any alcohol or drug abuse patient.[facility] HospitalIn the event this information is protected by the Federal Confidentiality of Alcohol and Drug Abuse Patient Records regulations: The Federal rules restrict any use of the information to criminally investigate or prosecute any alcohol or drug abuse patient.[facility] HospitalIn the event this information is protected by the Federal Confidentiality of Alcohol and Drug Abuse Patient Records regulations: The Federal rules restrict any use of the information to criminally investigate or prosecute any alcohol or drug abuse patient.[facility] HospitalIn the event this information is protected by the Federal Confidentiality of Alcohol and Drug Abuse Patient Records regulations: The Federal rules restrict any use of the information to criminally investigate or prosecute any alcohol or drug abuse patient.[facility] HospitalIn the event this information is protected by the Federal Confidentiality of Alcohol and Drug Abuse Patient Records regulations: The Federal rules restrict any use of the information to criminally investigate or prosecute any alcohol or drug abuse patient.[facility] HospitalIn the event this information is protected by the Federal Confidentiality of Alcohol and Drug Abuse Patient Records regulations: The Federal rules restrict any use of the information to criminally investigate or prosecute any alcohol or drug abuse patient.[facility] HospitalIn the event this information is protected by the Federal Confidentiality of Alcohol and Drug Abuse Patient Records regulations: The Federal rules restrict any use of the information to criminally investigate or prosecute any alcohol or drug abuse patient.[facility] HospitalIn the event this information is protected by the Federal Confidentiality of Alcohol and Drug Abuse Patient Records regulations: The Federal rules restrict any use of the information to criminally investigate or prosecute any alcohol or drug abuse patient.[facility] HospitalIn the event this information is protected by the Federal Confidentiality of Alcohol and Drug Abuse Patient Records regulations: The Federal rules restrict any use of the information to criminally investigate or prosecute any alcohol or drug abuse patient.[facility] HospitalIn the event this information is protected by the Federal Confidentiality of Alcohol and Drug Abuse Patient Records regulations: The Federal rules restrict any use of the information to criminally investigate or prosecute any alcohol or drug abuse patient.[facility] HospitalIn the event this information is protected by the Federal Confidentiality of Alcohol and Drug Abuse Patient Records regulations: The Federal rules restrict any use of the information to criminally investigate or prosecute any alcohol or drug abuse patient.[facility] HospitalIn the event this information is protected by the Federal Confidentiality of Alcohol and Drug Abuse Patient Records regulations: The Federal rules restrict any use of the information to criminally investigate or prosecute any alcohol or drug abuse patient.[facility] HospitalIn the event this information is protected by the Federal Confidentiality of Alcohol and Drug Abuse Patient Records regulations: The Federal rules restrict any use of the information to criminally investigate or prosecute any alcohol or drug abuse patient.[facility] HospitalIn the event this information is protected [...] or prosecute any alcohol or drug abuse patient.[facility] Care Teams (unrecognized sec tion and content) Machine Pecan Gatherer Relationship Specialty Start Date End Date Evelina Shafer MD [address] [place] [address] PCP - General Family Practice 06/26/19 Machine Pecan Gatherer Relationship Specialty Start Date End Date Evelina Shafer MD [address] [place] [address] PCP - General Family Practice 06/26/19 Machine Pecan Gatherer Relationship Specialty Start Date End Date Evelina Shafer MD [address] [place] [address] PCP - General Family Practice 06/26/19 [place] [address] [place] [address] Thread Pulling Machine Attendant 09/25/21 Machine Pecan Gatherer Relationship Specialty Start Date End Date Evelina Shafer MD [address] [place] [address] PCP - General Family Practice 06/26/19 [place] [address] [place] [address] Thread Pulling Machine Attendant 09/25/21 Machine Pecan Gatherer Relationship Specialty Start Date End Date Evelina Shafer MD [address] [place] [address] PCP - General Family Practice 06/26/19 Kiersten Rich, FARZANA [address] [place], [place] [id number] Thread Pulling Machine Attendant 09/25/21 Machine Pecan Gatherer Relationship Specialty Start Date End Date Evelina Shafer MD [address] [place] [address] PCP - General Family Practice 06/26/19 nAgelina Mims RN [address] [place] [address] Thread Pulling Machine Attendant 11/28/21 Machine Pecan Gatherer Relationship Specialty Start Date End Date Evelina Shafer MD [address] [place] [address] PCP - General Family Practice 06/26/19 Angelina Mims RN [address] [place] [address] Thread Pulling Machine Attendant 11/28/21 Machine Pecan Gatherer Relationship Specialty Start Date End Date Evelina Shafer MD [address] [place] [address] PCP - General Family Practice 06/26/19 Angelina Mims RN [address] [place] [address] Thread Pulling Machine Attendant 11/28/21 Machine Pecan Gatherer Relationship Specialty Start Date End Date Evelina Shafer MD [address] [place] [address] PCP - General Family Practice 06/26/19 Angelina Mims RN [address] [place] [address] Thread Pulling Machine Attendant 11/28/21 Machine Pecan Gatherer Relationship Specialty Start Date End Date Evelina Shafer MD [address] [place] [address] PCP - General Family Practice 06/26/19 Angelina Mims RN [address] [facility] [place] [place] [address] Thread Pulling Machine Attendant 11/28/21 Machine Pecan Gatherer Relationship Specialty Start Date End Date Evelina Shafer MD [address] [place] [address] PCP - General Family Practice 06/26/19 [place] [address] [place] [address] Thread Pulling Machine Attendant 09/25/21 Angelina Mims RN [address] [place] [address] Thread Pulling Machine Attendant 11/28/21 Machine Pecan Gatherer Relationship Specialty Start Date End Date Evelina Shafer MD [address] [place] [address] PCP - General Family Practice 06/26/19 Angelina Mims RN [address] [place] [address] Thread Pulling Machine Attendant 11/28/21 Machine Pecan Gatherer Relationship Specialty Start Date End Date Evelina Shafer MD [address] [place] [address] PCP - General Family Practice 06/26/19 Angelina Mims RN [address] [place] [address] Thread Pulling Machine Attendant 11/28/21 Machine Pecan Gatherer Relationship Specialty Start Date End Date Evelina Shafer MD [address] [place] [address] PCP - General Family Practice 06/26/19 Angelina Mims RN [address] [facility] [place] [place] [address] Thread Pulling Machine Attendant 11/28/21 Machine Pecan Gatherer Relationship Specialty Start Date End Date Evelina Shafer MD [address] [place] [address] PCP - General Family Medicine 06/26/19 Angelina Mims, FARZANA [address] [place] [address] Thread Pulling Machine Attendant 11/28/21 Machine Pecan Gatherer Relationship Specialty Start Date End Date Evelina Shafer MD [address] [place] [address] PCP - General Family Medicine 06/26/19 Angelina Mims, RN [address] [address] Thread Pulling Machine Attendant 11/28/21 Machine Pecan Gatherer Relationship Specialty Start Date End Date Evelina Shafer MD [address] [place] [address] PCP - General Family Medicine 06/26/19 Angelina Mims RN [address] [address] Thread Pulling Machine Attendant 11/28/21 Machine Pecan Gatherer Relationship Specialty Start Date End Date Evelina Shafer MD [address] [place] [address] PCP - General Family Medicine 06/26/19 Angelina Mims RN [address] [address] Thread Pulling Machine Attendant 11/28/21 Machine Pecan Gatherer Relationship Specialty Start Date End Date Evelina Shafer MD [address] [place] [address] PCP - General Family Medicine 06/26/19 Angelina Mims RN [address] [address] Thread Pulling Machine Attendant 11/28/21 Machine Pecan Gatherer Relationship Specialty Start Date End Date Evelina Shafer MD [address] [place] [address] PCP - General Family Medicine 06/26/19 Angelina Mims RN [address] [address] Thread Pulling Machine Attendant 11/28/21 Machine Pecan Gatherer Relationship Specialty Start Date End Date Evelina Shafer MD [address] [place] [address] PCP - General Family Medicine 06/26/19 Angelina Mims, FARZANA [address] [place] [address] Thread Pulling Machine Attendant 11/28/21 Machine Pecan Gatherer Relationship Specialty Start Date End Date Evelina Shafer MD [address] [place] [address] PCP - General Family Medicine 06/26/19 Petty Joe, FARZANA [facility] [address] [place] [address] Thread Pulling Machine Attendant 11/28/21 Machine Pecan Gatherer Relationship Specialty Start Date End Date Evelina Shafer MD [address] [place] [address] PCP - General Family Medicine 06/26/19 Petty Joe, FARZANA [facility] [address] [place] [address] Thread Pulling Machine Attendant 11/28/21 Machine Pecan Gatherer Relationship Specialty Start Date End Date Evelina Shafer MD [address] [place] [address] PCP - General Family Medicine 06/26/19 Petty Joe, FARZANA [facility] [address] [place] [phone] Thread Pulling Machine Attendant 11/28/21 Machine Pecan Gatherer Relationship Specialty Start Date End Date Evelina Shafer MD [address] [place] [address] PCP - General Family Medicine 06/26/19 Petty Joe, FARZANA [facility] [address] [place] [phone] Thread Pulling Machine Attendant 11/28/21 Machine Pecan Gatherer Relationship Specialty Start Date End Date Evelina Shafer MD [address] [place] [address] PCP - General Family Medicine 06/26/19 Petty Joe, FARZANA [facility] [address] [place] [address] Thread Pulling Machine Attendant 11/28/21 Machine Pecan Gatherer Relationship Specialty Start Date End Date Evelina Shafer MD [address] [place] [address] PCP - General Family Medicine 06/26/19 Petty Joe, FARZANA [facility] [address] [place] [phone] Thread Pulling Machine Attendant 11/28/21 Machine Pecan Gatherer Relationship Specialty Start Date End Date Evelina Shafer MD [address] [place] [address] PCP - General Family Medicine 06/26/19 Petty Joe RN [facility] [address] [place] [address] Thread Pulling Machine Attendant 04/28/22 Machine Pecan Gatherer Relationship Specialty Start Date End Date Evelina Shafer MD [address] [place] [address] PCP - General Family Medicine 06/26/19 Petty Joe RN [facility] [address] [place] [phone] Thread Pulling Machine Attendant 04/28/22 Machine Pecan Gatherer Relationship Specialty Start Date End Date Evelina Shafer MD [address] [place] [address] PCP - General Family Medicine 06/26/19 Petty Joe RN [facility] [address] [place] [phone] Thread Pulling Machine Attendant 04/28/22 Machine Pecan Gatherer Relationship Specialty Start Date End Date Evelina Shafer MD [address] [place] [address] PCP - General Family Medicine 06/26/19 Petty Joe RN [facility] [address] [place] [address] Thread Pulling Machine Attendant 04/28/22 Machine Pecan Gatherer Relationship Specialty Start Date End Date Evelina Shafer MD [address] [place] [address] PCP - General Family Medicine 06/26/19 Petty Joe, FARZANA [facility] [address] [place] [address] Thread Pulling Machine Attendant 04/28/22 Machine Pecan Gatherer Relationship Specialty Start Date End Date Evelina Shafer MD [address] [place] [address] PCP - General Family Medicine 06/26/19 Petty Joe, FARZANA [facility] [address] [place] [address] Thread Pulling Machine Attendant 04/28/22 Machine Pecan Gatherer Relationship Specialty Start Date End Date Evelina Shafer MD [address] [place] [address] PCP - General Family Medicine 06/26/19 Petty Joe, FARZANA [facility] [address] [place] [address] Thread Pulling Machine Attendant 04/28/22 Machine Pecan Gatherer Relationship Specialty Start Date End Date Evelina Shafer MD [address] [place] [address] PCP - General Family Medicine 06/26/19 Petty Joe, FARZANA [facility] [address] [place] [address] Thread Pulling Machine Attendant 04/28/22 Machine Pecan Gatherer Relationship Specialty Start Date End Date Evelina Shafer MD [address] [place] [address] PCP - General Family Medicine 06/26/19 Petty Joe, FARZANA [facility] [address] [place] [address] Thread Pulling Machine Attendant 04/28/22 Team Status: Active Member Role Status Dates Dr. Carmen Garcia MD Family Provider Active Dr. Lenin Hidalgo MD Primary Care Provider Active Team Status: Inactive Member Role Status Dates Dr. Lenin Hidalgo MD Primary Care Provider, Attending P rovider Active Team Status: Inactive Member Role Status Dates Dr. Lenin Hidalgo MD Primary Care Provide r, Attending Provider, Referring Provider Active Machine Pecan Gatherer Relationship Specialty Start Date End Date Evelina Shafer MD [address] [place] [address] PCP - General Family Medicine 06/26/19 Petty Joe RN [facility] [address] [place] [phone] Thread Pulling Machine Attendant 04/28/22 Machine Pecan Gatherer Relationship Specialty Start Date End Date Evelina Shafer MD [address] [place] [address] PCP - General Family Medicine 06/26/19 Petty Joe RN [facility] [address] [place] [phone] Thread Pulling Machine Attendant 04/28/22 Machine Pecan Gatherer Relationship Specialty Start Date End Date Evelina Shafer MD [address] [place] [address] PCP - General Family Medicine 06/26/19 Petty Joe, FARZANA [facility] [address] [place] [address] Thread Pulling Machine Attendant 04/28/22 Team Status: Inactive Member Role Status Dates Dr. Lenin Hidalgo MD Primary Care Provider, Referring P rovider Active Asia Qureshi OPERATIONS DIRECTOR, OPERATIONS DIRECTOR-C Attending Provider Active Team Status: Inactive Member [...] Dr. Fredrick Dorsey DO Emergency Provider Active Machine Pecan Gatherer Relationship Specialty Start Date End Date Lenin Hidalgo MD [address] [place], [place] [address] PCP - General Family Medicine 11/29/23 Machine Pecan Gatherer Relationship Specialty Start Date End Date Evelina Shafer MD [address] [facility], [place] [address] PCP - General Family Medicine 06/26/19 11/02/23 Machine Pecan Gatherer Relationship Specialty Start Date End Date Evelina Shafer MD [address] [facility], [place] [id number] PCP - General Family Medicine 06/26/19 11/02/23 [...] End: October 05, 2024 Dr. Allyn Gallegos , Other Provider Active Sta rt: October 05, [...] 2025 End: January 18, 2025 Asia Qureshi OPERATIONS DIRECTOR, OPERATIONS DIRECTOR-C Attending Provider Active Start: January 18, 2025 End: January 18, 2025 Team Status: Inactive Member Role/Relationship Status Dates Dr. Lenin Hidalgo MD Primary Care Provider Active Start: October 05, 2024 End: October 05, 2024 Dr. eLnin Hidalgo MD Attending Provider Active St art: October 05, 2024 End: October 05, 2024 Dr. Lenin Hidalgo MD Referring Provider Active St art: October 05, 2024 End: October 05, 2024 Dr. Allyn Gallegos , Other Provider Active Sta rt: October 05, [...] 2025 End: January 18, 2025 Asia Qureshi OPERATIONS DIRECTOR, OPERATIONS DIRECTOR-C Attending Provider Active Start: January 18, 2025 End: January 18, 2025 Team Status: Inactive Member Role/Relationship Status Dates Dr. Lenin Hidalgo MD Primary Care Provider Active Start: January 24, 2025 End: January 24, 2025 Asia Qureshi OPERATIONS DIRECTOR, OPERATIONS DIRECTOR-C Attending Provider Active Start: January 24, 2025 End: January 24, 2025 Asia Qureshi OPERATIONS DIRECTOR, OPERATIONS DIRECTOR-C Referring Provider Active Start: January 24, 2025 End: January 24, 2025 Team Status: Active Member Role/Relationship Status Dates Dr. Lenin Hidalgo MD Primary Care Provider Active Start: January 24, 2025 Asia Qureshi OPERATIONS DIRECTOR, OPERATIONS DIRECTOR-C Referring Provider Active Start: January 24, 2025 Asia Qureshi OPERATIONS DIRECTOR, OPERATIONS DIRECTOR-C Other Provider Active Sta rt: January 24, 2025 Dr. Trenton Gerard MD Attending Provider Active S tart: January 24, 2025 Team Status: Active Member Role/Relationship Status Dates Dr. Lenin Hidalgo MD Primary Care Provider Active Start: January 25, 2025 Asia Qureshi OPERATIONS DIRECTOR, OPERATIONS DIRECTOR-C Attending Provider Active Start: January 25, 2025 Team Status: Inactive Member Role/Relationship Status Dates [...] 2025 End: January 18, 2025 Asia Qureshi OPERATIONS DIRECTOR, OPERATIONS DIRECTOR-C Attending Provider Active Start: January 18, 2025 End: January 18, 2025 Team Status: Inactive Member Role/Relationship Status Dates Dr. Lenin Hidalgo MD Primary Care Provider Active Start: January 24, 2025 End: January 24, 2025 Asia Qureshi OPERATIONS DIRECTOR, OPERATIONS DIRECTOR-C Attending Provider Active Start: January 24, 2025 End: January 24, 2025 Asia Qureshi OPERATIONS DIRECTOR, OPERATIONS DIRECTOR-C Referring Provider Active Start: January 24, 2025 End: January 24, 2025 Team Status: Active Member Role/Relationship Status Dates Dr. Lenin Hidalgo MD Primary Care Provider Active Start: January 24, 2025 Asia Qureshi OPERATIONS DIRECTOR, OPERATIONS DIRECTOR-C Referring Provider Active Start: January 24, 2025 Asia Qureshi OPERATIONS DIRECTOR, OPERATIONS DIRECTOR-C Other Provider Active Sta rt: January 24, 2025 Dr. Trenton Gerard MD Attending Provider Active S tart: January 24, 2025 Team Status: Active Member Role/Relationship Status Dates Dr. Lenin Hidalgo MD Primary Care Provider Active Start: January 25, 2025 Asia Qureshi OPERATIONS DIRECTOR, OPERATIONS DIRECTOR-C Attending Provider Active Start: January 25, 2025 Team Status: Inactive Member Role/Relationship Status Dates Dr. Lenin Hidalgo MD Primary Care Provider Active Start: February 14, 2025 End: February 14, 2025 Dr. Lenin Hidalgo MD Attending Provider Active St art: February 14, 2025 End: February 14, 2025 Dr. Allyn Gallegos DO Other Provider Active Sta rt: February 14, 2025 End: February 14, 2025 Reason for Visit (unrecogniz ed section [...] PELVIS W/O CONTRST 1+ BODY REGNS [facility] [id number] [place] [address] [place] [id number] Referral ID Status Reason Start Date Expiration Date V isits Requested Visits Authorized [id number] Closed Auto-Generate d Referral 05/18/2022 06/17/2023 1 [...] BE BASED ON THE PRIMARY CLINICAL RECORDS. [facility] [employer] [facility] provides no warranty or guarantee of the accuracy or completeness of information in this document.
[2025-05-04 08:42] LABS: CREATININE FINGERSTICK 1.1 mg/dL (0.70-1.30); EGFR FINGERSTICK > 60.0000 mL/min (>60)
== END | disposition home or self-care (01) ==
LOC: OPMRI 07:16
PROVIDERS: PCP Family Medicine; Referring Provider Ophthalmology; Visit Provider Ophthalmology
DX: H46.9 Unspecified optic neuritis (principal)
CPT/HCPCS: 70553; A9575

== ENCOUNTER → 2025-05-11 | Outpatient (CLI) | payer MEDICARE, OTHER, SELFPAY ==
[2025-05-11 15:45] LABS: AST(SGOT) 20 U/L (<=37); Alanine Aminotransfer ALT/SGPT 16 U/L (<=46); Albumin, Serum 4.3 g/dL (3.4-4.8); Alkaline Phosphatase 65 U/L (40-129); Anion Gap 10 (5-15); BUN 25 mg/dL (4-19); BUN/Creat Ratio 20.2 RATIO (10-20); Calcium,Total 9.4 mg/dL (7.6-11.0); Carbon Dioxide 23.2 mmol/L (21.0-32.0); Chloride 92 mmol/L (98-108); Cholesterol 166 mg/dL (<=200); Globulin 3.2 g/dL (2.2-4.2); Glucose 114 mg/dL (70-99); Low Density Lipoprotein Calc. 88 mg/dL; Potassium 5.2 mmol/L (3.3-5.1); Triglycerides 75 mg/dL; Very Low Density Lipoprotein 15 mg/dL (5-40); cholesterol:hdl ratio screen 2.59
[2025-05-11 16:20] LABS: Osmolality, Serum 282 mOsm/KG (280-301)
[2025-05-11 16:36] LABS: Osmolality, Urine 565 mOsm/KG
== END | disposition home or self-care (01) ==
LOC: MFPLAB 12:03
PROVIDERS: PCP Family Medicine; Visit Provider Family Medicine
DX: E22.2 Syndrome of inappropriate secretion of antidiuretic hormone (principal); E11.22 Type 2 diabetes mellitus with diabetic chronic kidney disease; N18.9 Chronic kidney disease, unspecified
CPT/HCPCS: 36415; 80053; 80061; 83036; 83930; 83935; 84300

== ENCOUNTER → 2025-06-12 | Outpatient (CLI) | payer MEDICARE, OTHER, SELFPAY ==
[2025-06-12 15:47] LABS: Creatinine, Urine (random) 67.70 mg/dL (39.00-259.00); Microalbumin,Random Urine 13.6 mg/L (<20 mg/L)
== END | disposition home or self-care (01) ==
LOC: MTLAB 13:20
PROVIDERS: PCP Family Medicine; Referring Provider Internal Medicine Nephrology; Visit Provider Internal Medicine Nephrology
DX: N18.31 Chronic kidney disease, stage 3a (principal)
CPT/HCPCS: 82043; 82570

== ENCOUNTER → 2025-06-14 | Outpatient (CLI) | payer MEDICARE, OTHER, SELFPAY ==
[2025-06-14 10:34] LABS: Albumin, Serum 4.4 g/dL (3.4-4.8); Anion Gap 10 (5-15); BUN 20 mg/dL (4-19); BUN/Creat Ratio 15.9 RATIO (10-20); Calcium,Total 9.6 mg/dL (7.6-11.0); Carbon Dioxide 25.8 mmol/L (21.0-32.0); Chloride 92 mmol/L (98-108); Glucose 137 mg/dL (70-99); Potassium 4.9 mmol/L (3.3-5.1)
== END | disposition home or self-care (01) ==
LOC: POLAB3 09:46
PROVIDERS: PCP Family Medicine; Visit Provider Internal Medicine Nephrology
DX: N18.31 Chronic kidney disease, stage 3a (principal)
CPT/HCPCS: 36415; 80069

== ENCOUNTER → 2025-06-22 | Outpatient (CLI) | payer MEDICARE, OTHER, SELFPAY ==
--- OUTSIDE RECORDS SUMMARY | 2025-06-22 16:16 | XMS RPT_ITS | CCD ---
Author Organization [facility] Care Team Providers Care Training And Development Rep Name Role Phone Evelina Shafer MD Primary Care Provider Hilario YANES, Kiersten Unavailable Prasanna YANES, Angelina Unavailable Evelina Shafer MD Primary Care Provider Prasanna YANES, Angelina Unavailable Dr. Georges Shafer Primary Care Provider Dr. Georges Shafer Referring Provider Titus WESTERN PHILOSOPHY PROFESSOR, WESTERN PHILOSOPHY PROFESSOR-C Asia Attending Provider Dr. Trenton Gerard Attending Provider Citlali Toribio Attending Provider Unavailable Dr. Trenton Gerard Referring Provider Dr. Trenton Gerard Other Provider Loretta WESTERN PHILOSOPHY PROFESSOR, WESTERN PHILOSOPHY PROFESSOR-C Arnie Nunez Attending Provider Evelina Shafer MD [...] Provider Dr. Lenin Hidalgo Referring Provider Titus WESTERN PHILOSOPHY PROFESSOR, WESTERN PHILOSOPHY PROFESSOR-C Asia Attending Provider Dr. Lenin Hidalgo Primary Care Provider Dr. Lenin Hidalgo Referring Provider Titus WESTERN PHILOSOPHY PROFESSOR, WESTERN PHILOSOPHY PROFESSOR-C Asia Attending Provider Dr. Miguel Kirby Attending Provider Dr. Lenin Hidalgo Primary Care Provider Dr. Lenin Hidalgo Referring Provider 1([facility])[phone] Lenin Hidalgo MD Primary Care Provider Soni PEÑA, Evelina Mccullough Primary Care Provider Rocky PEÑA, Dr. Phelps Primary Care Provider Rocky PEÑA, Dr. Phelps Attending Provider 1([facility])[phone] Rocky PEÑA, Dr. Phelps Referring Provider 1([facility])[phone] Halle DPM, Dr. Akers Attending Provider 1([facility])[phone] Halle DPM, Dr. Akers Referring Provider Moustapha PEÑA, Dr. Chowdhury Attending Provider Moustapha PEÑA, Dr. Chowdhury Referring Provider 1([facility])[phone] Radha PEÑA, Dr. Moon Attending Provider 1([facility])[phone] Rocky PEÑA, Dr. Phelps Primary Care Provider 1([facility])[phone] Dr. Lenin Hidalgo MD Attending Provider 1([facility])[phone] Lenin Hidalgo MD Referring Provider [phone] Allyn Gallegos DO Attending Provider [phone] Allyn Gallegos DO Referring Provider [phone] Allyn Gallegos DO Other Provider 1([facility])[phone] Rocky PEÑA, Dr. Phelps Primary Care Provider Rocky PEÑA, Dr. Phelps Attending Provider [phone] Lenin Hidalgo MD Referring Provider [phone] Miguel Kirby MD Attending Provider 1([facility])[phone] Chris De Paz Attending Provider Titus WESTERN PHILOSOPHY PROFESSOR-C, Asia Attending Provider Rocky PEÑA, Dr. Phelps Primary Care Provider Rocky PEÑA, Dr. Phelps Attending Provider Rocky PEÑA, Dr. Phelps Referring Provider 1([facility])[phone] Titus WESTERN PHILOSOPHY PROFESSOR-C, Asia Referring Provider Titus WESTERN PHILOSOPHY PROFESSOR-C, Asia Other Provider 1([facility])[phone] Moustapha PEÑA, Dr. Chowdhury Attending Provider Rocky PEÑA, Dr. Phelps Primary Care Provider Rocky PEÑA, Dr. Phelps Referring Provider Rocky PEÑA, Dr. Phelps Attending Provider El ROJO, Dr. Gruber Other Provider 1([facility])[phone] Hidalgo, Lenin Referring Unavailable Allyn Glalegos Consulting Unavailable Hidalgo, Lenin Primary Care Unavailable Hidalgo, Lenin Attending Unavailable Hidalgo, Lenin Attending Unavailable Hidalgo, Lenin Primary Care Unavailable Miguel Kirby Referring Unavailable Miguel Kirby Attending Unavailable Hidalgo, Lenin Primary Care Unavailable Hidalgo, Lenin Primary Care Unavailable Hidalgo, Lenin Attending Unavailable Hidalgo, Lenin Referring Unavailable Hidalgo, Lenin Referring Unavailable Hidalgo, Lenin Primary Care Unavailable Hidalgo, Lenin Attending Unavailable Allyn Gallegos Attending Unavailable Hidalgo, Lenin Primary Care Unavailable Hidalgo, Lenin Primary Care Unavailable Red Garcia Attending Unavailable Hidalgo, Lenin Referring Unavailable Hidalgo, Lenin Primary Care Unavailable Hidalgo, Lenin Attending Unavailable Hidalgo, Lenin Primary Care Unavailable Lalo Dosbon Attending Unavailable Hidalgo, Lenin Primary Care Unavailable Lalo Dobson Referring Unavailable DobsonLalo magana Attending Unavailable Hidalgo, Lenin Primary Care Unavailable Horn, Delphine Referring Unavailable Horn, Delphine Attending Unavailable Hidalgo, Lenin Primary Care Unavailable Hidalgo, Lenin Attending Unavailable Hidalgo, Lenin Referring Unavailable Hidalgo, Lenin Primary Care Unavailable Hidalgo, Lenin Attending Unavailable Hidalgo, Lenin Primary Care Unavailable Titus WESTERN PHILOSOPHY PROFESSOR, Asia Referring Unavailable Titus WESTERN PHILOSOPHY PROFESSOR, Asia Attending Unavailable Hidalgo, Lenin Primary Care Unavailable Moustapha, Trenton Referring Unavailable Moustapha, Anthony Attending Unavailable Hidalgo, Lenin Referring Unavailable Hidalgo, Lenin Primary Care Unavailable Hidalgo, Lenin Attending Unavailable Hidalgo, Lenin Primary Care Unavailable Moustapha, Anthony Attending Unavailable Titus WESTERN PHILOSOPHY PROFESSOR, Asia Referring Unavailable Titus WESTERN PHILOSOPHY PROFESSOR, Asia Consulting Unavailable Chris Hawkins Attending Unavailable Hidalgo, Lenin Referring Unavailable Hidalgo, Lenin Primary Care Unavailable Allyn Gallegos Consulting Unavailable Hidalgo, Lenin Attending Unavailable Hidalgo, Lenin Primary Care Unavailable Hidalgo, Lenin Primary Care Unavailable Hidalgo, Lenin Attending Unavailable Hidalgo, Lenin Referring Unavailable Hidalgo, Lenin Primary Care Unavailable Titus WESTERN PHILOSOPHY PROFESSOR, Asia Attending Unavailable Hidalgo, Lenin Referring Unavailable Hidalgo, Lenin Primary Care Unavailable Trenton Gerard Attending Unavailable Miguel Kirby Attending Unavailable Hidalgo, Lenin Primary Care Unavailable Hidalgo, Lenin Referring Unavailable Titus WESTERN PHILOSOPHY PROFESSOR, Asia Attending Unavailable Hidalgo, Lenin Primary Care Unavailable Eugenia Pastrana Attending Unavailable Hidalgo, Lenin Primary Care Unavailable El, Allyn Referring Unavailable Allyn Gallegos Attending Unavailable Hidalgo, Lenin Primary Care Unavailable Allergies Allergy Classification Reported Allergen(s) Allergy Type Date of Onset Reaction(s) Facility (20 sources) atorvastatin Drug Allergy 12-28-19 20 Mental Status Change [facility] Work Phone: (20 sources) diphenhydrAMINE Drug Allergy 07-01-19 Other: See Comments [facility] Work Phone: Comment on above: paradoxical effect (9 sources) Penicillins Propensity to adverse reactions 11-19-19 [facility] Work Phone: (20 sources) tamsulosin Drug Allergy 06-26-20 19 Other: See Comments [facility] Work Phone: (8 sources) Thiazides Propensity to adverse reactions to drug 03-02-20 Contraindicati on-Medical Surgical [facility] Work Phone: (20 sources) traZODone Drug Allergy 07-01-19 Mental Status Change [facility] Work Phone: Comment on above: increased anxiety (20 sources) Penicillins Propensity to adverse reactions 11-19-19 06 [facility] Work Phone: (20 sources) Thiazides Propensity to adverse reactions to drug 03-02-20 Contraindicati on-Medical Surgical [facility] Work Phone: (20 sources) Penicillins Allergy to substance 02-11-20 22 [facility] (19 sources) Simvastatin Drug Allergy 03-31-20 22 messed with my head [facility] (20 sources) HMG-CoA reductase inhibitor Drug Intolerance 05-18-20 22 Mental Status Change [facility] (9 sources) ezetimibe Drug Allergy 09-11-19 23 Mental Status Change [facility] Work Phone: (10 sources) Thiazides Allergy to substance 11-05-19 Other [facility] Comment on above: hypoNA (10 sources) Veqvwdp-Ubg-Jtz Reductase Inhibitor Allergy to substance 11-05-19 Other [facility] Comment on above: mental status change s (1 source) atorvastatin Drug Allergy 01-19-20 [facility] (1 source) diphenhydrAMINE Drug Allergy 01-19-20 [facility] (1 source) Penicillins Drug allergy (disorder) 01-19-20 [facility] (1 source) Simvastatin Drug Allergy 01-19-20 [facility] (1 source) Thiazides Drug allergy (disorder) 01-19-20 [facility] (1 source) traZODone Drug Allergy 01-19-20 [facility] (1 source) Gdrpjli-Zxl-Bqp Reductase Inhibitor Drug allergy (disorder) 01-19-20 [facility] Medications Current Medications Medication Drug Class(es) Dates Sig (Normalized) Sig (Original) amylase 362894 unt / lipase 35264 unt / protease 289426 unt delayed release oral capsule (6 sources) Start: 10-27-2024 End: 01-18-2025 Clhckb-Axjipaev-Wsq lase (Diogo) 36,000-114,000- 180,000 unit capsule,delayed release(DR/EC) Active NMA [...] 07-07-2024 take 1 capsule by mo [facility] once daily Duloxetine 60 mg capsule,delayed release(DR/EC) [...] on above: Take (1) tablet by m out two hours before bedtime FOR INSOMNIA fexofenadine [...] 2022 12:00am take 2 tablets by mo uth once daily Magnesium 250 mg tab Indications: [...] Start: 01-18-2023 take 1 tablet by anthony once daily FLUoxetine 10 mg tablet Take 1 tablet by mouth once daily. 90 tablet 1 01/18/2023 Active Start: 01-15-2023 take 1 capsule by mo [facility] once daily FLUoxetine (PROZAC) 40 mg capsule [...] mg daily Take 1 tablet by anthony th once daily. fluticasone propionate 0.05 mg/actuat metered [...] TWICE A DAY as needed for anxiety 12 November 06, 2023 12:00am July 07, 2024 [...] above: Take 1 capsule by mo [facility] once daily. promethazine hydrochloride 25 mg oral [...] Coronary atherosclerosis; Translations: [Atherosclerotic heart disease of [place] coronary artery without angina pectoris] Onset: 08-18-2024 [...] 2019-nCoV; Translations: [Suspected COVID-19 virus infection] Episodic Inflammation; infection of eye (except that caused by tuberculosis or sexually transmitteddisease) (1 source) Unspecified optic neuritis; Translations: [Unspecified optic neuritis] Onset: 05-07-2025 Chronic Influenza (1 source) Influenza due to Influenza [...] Onset: 07-19-2024 Episodic Pancreatic disorders (not diabetes) (4 sources) Exocrine pancreatic insufficiency; 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 Normal . [facility] Comment on above: Order Comment: [id number] BARTONELLA HENSELAE SERUM RMT Result Comment: Test Ordered: [id number] Bartonella henselae IgG/M B. henselae IgG Negative titer BN Reference Range: Neg:<1:320 B. henselae IgM Negative titer BN Reference Range: Neg:<1:100 Results for this test are for research purposes only by the assay's sales producer. The performance characteristics of this product have not been established. Results should not be used as a diagnostic procedure without confirmation of the diagnosis by another medically established diagnostic product or procedure. Performed at: [address] [id number] Maid Supervisor: Eduard Linares MD, Phone: [phone] Performed at: [address] [id number] Maid Supervisor: Bonifacio De Jesus PhD, Phone: [phone] Performed By: #### L 421.3665, L100.0100, L3410.9992, L101.9900 #### [facility] [address] [place], [address] Brain W/WO Contraston 2024 Brain W/WO Contrast [facility] [address] [place] [address] Brain W/WO Contrast MR#: [id number] Acct: [id number] Name: OSMAN PADGETT Rep #: [id number] : 1950 M 75 From: Felix Renee MD PCP: Dr. Lenin Hidalgo MD Status: REG CLI Study: Brain W/WO Contrast Date of Exam: 05/04/25 Exam# [id number] Ordering Dr: Lalo Dobson MD ADDENDUM by Dr. Felix Renee MD on 05/08/25 at 1234 Contrast: 19 cc Clariscan IV Reading Location: [id number] 05/08/25 1234 Date cc: Dr. Leinn Hidalgo MD; Dr. aLlo Dobson MD * Signed PROCEDURE: BRAIN W/WO CONTRAST 05/04/2025 REASON FOR EXAM: NEW OPTIC NERVE SWELLING; LEFT EYE TECHNIQUE: Procedure Code: MRIBRWW Modality: MR Procedure: BRAIN W/WO CONTRAST Multiplanar and multisequence images were obtained. CONTRAST: VOLUME: mL COMPARISON: 09/22/2023. FINDINGS: Numerous scattered FLAIR hyperintense foci are noted throughout the bilateral cerebral white matter, mildly increased since the previous study. No corresponding enhancement. 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 Mild generalized atrophy with commensurate ventriculomegaly, unchanged. The remainder of the brain parenchyma appears unremarkable. The johnson-white matter differentiation is appropriate. No midline shift. The midline structures are intact, specifically the corpus callosum, septum pellucidum, pituitary gland, and cerebellar vermis. The cervicomedullary junction appears unremarkable. Small mucous retention cysts within the bilateral maxillary sinuses, unchanged. Evidence of right cataract surgery. The bilateral optic nerves appear symmetric and unremarkable, without abnormal signal nor abnormal enhancement. Diffusion-weighted images demonstrate no restricted diffusion. No abnormal enhancement pattern. MRI/Brain W/WO Contrast IMPRESSION: Nonspecific, nonenhancing FLAIR hyperintense foci throughout the bilateral cerebral white matter, mildly increased since the previous study. This likely represents chronic microvascular ischemic changes. Stable mild generalized atrophy. Small mucous retention cysts within the bilateral maxillary sinuses, unchanged. Reading Location: [facility] CC: Dr. Lenin Hidalgo MD; Dr. Lalo Dobson MD Donkey Doctor: Signed Normal [facility] CREATININE FINGERSTICKon Creatinine [Mass/Vol] 1.1 mg/dL Normal 0.70-1.30 [facility] Comment on above: Performed By: #### L 501.6710, L100.0100, L3410.9992, L101.9900 #### [facility] [address] [place], [address] EGFR WB > 60.0000 Normal >60 [facility] Comment on above: Performed By: #### L 501.6710, L100.0100, L3410.9992, L101.9900 #### [facility] [address] [place], [address] CBC W/Diff, Automatedon 11-0 Absolute Lymph 0.87 X10 3/uL Normal 0.83-4.51 [facility] Comment on above: Performed By: #### L 501.6710, L100.0100, L3410.9992, L101.9900 #### [facility] [address] [place], [address] Absolute Neut 3.2 X10 3/uL Normal 2.0-7.7 [facility] Comment on above: Performed By: #### L 501.6710, L100.0100, L3410.9992, L101.9900 #### [facility] [address] [place], [address] Basophils/100 WBC (Bld) 1.3 % High 0-1 [facility] Comment on above: Performed By: #### L 501.6710, L100.0100, L3410.9992, L101.9900 #### [facility] [address] [place], [address] Eosinophils/100 WBC (Bld) 2.7 % Normal 0-5 [facility] Comment on above: Performed By: #### L 501.6710, L100.0100, L3410.9992, L101.9900 #### [facility] [address] [place], [address] Erythrocyte distribution width (RBC) [Ratio] 12.2 % Normal 11.6-14.6 [facility] Comment on above: Performed By: #### L 501.6710, L100.0100, L3410.9992, L101.9900 #### [facility] [address] [place], [address] Hematocrit (Bld) [Volume fraction] 34.1 % Low 40-54 [facility] Comment on above: Performed By: #### L 501.6710, L100.0100, L3410.9992, L101.9900 #### [facility] [address] [place], [address] Hemoglobin (Bld) [Mass/Vol] 11.8 g/dL Low 13.0-16.5 [facility] Comment on above: Performed By: #### L 501.6710, L100.0100, L3410.9992, L101.9900 #### [facility] [address] [place], [address] IG% 0.200 Normal 0.0-0.9 [facility] Comment on above: Result Comment: IG% - Immature Granulocytes (promyelocytes, myelocytes and metamyelocytes) > 1% indicates that a LEFT SHIFT is Present. Performed By: #### L 501.6710, L100.0100, L3410.9992, L101.9900 #### [facility] [address] [place], [address] Lymphocytes/100 WBC (Bld) 18.4 % Low 19-41 [facility] Comment on above: Performed By: #### L 501.6710, L100.0100, L3410.9992, L101.9900 #### [facility] [address] [place], [address] MCH (RBC) [Entitic mass] 32.4 pg High 27.0-32.0 [facility] Comment on above: Performed By: #### L 501.6710, L100.0100, L3410.9992, L101.9900 #### [facility] [address] [place], [address] MCHC (RBC) [Mass/Vol] 34.6 g/dL Normal 32-36 [facility] Comment on above: Performed By: #### L 501.6710, L100.0100, L3410.9992, L101.9900 #### [facility] [address] [place], [address] MCV (RBC) [Entitic vol] 93.7 fL Normal 80-94 [facility] Comment on above: Performed By: #### L 501.6710, L100.0100, L3410.9992, L101.9900 #### [facility] [address] [place], [address] Monocytes/100 WBC (Bld) 9.7 % Normal 0-10 [facility] Comment on above: Performed By: #### L 501.6710, L100.0100, L3410.9992, L101.9900 #### [facility] [address] [place], [address] Neutrophils/100 WBC (Bld) 67.7 % Normal 47-70 [facility] Comment on above: Performed By: #### L 501.6710, L100.0100, L3410.9992, L101.9900 #### [facility] [address] [place], [address] Nucleated RBC (Bld) [#/Vol] 0 10*3/uL Normal 0-5 [facility] Comment on above: Performed By: #### L 501.6710, L100.0100, L3410.9992, L101.9900 #### [facility] [address] [place], [address] Platelet mean volume (Bld) [Entitic vol] 8.3 fL Normal 6.2-12.0 [facility] Comment on above: Performed By: #### L 501.6710, L100.0100, L3410.9992, L101.9900 #### [facility] [address] [place], [address] Platelets (Bld) [#/Vol] 323 10*3/uL Normal 150-450 [facility] Comment on above: Performed By: #### L 501.6710, L100.0100, L3410.9992, L101.9900 #### [facility] [address] [place], [address] RBC (Bld) [#/Vol] 3.64 10*6/uL Low 4.6-6.2 [facility] Comment on above: Performed By: #### L 501.6710, L100.0100, L3410.9992, L101.9900 #### [facility] [address] [place], [address] RDW SD 41.8 fl Normal 35.1-43.9 [facility] Comment on above: Performed By: #### L 501.6710, L100.0100, L3410.9992, L101.9900 #### [facility] [address] [place], [address] WBC (Bld) [#/Vol] 4.7 10*3/uL Normal 4.4-11.0 [facility] Comment on above: Performed By: #### L 501.6710, L100.0100, L3410.9992, L101.9900 #### [facility] [address] [place], [address] CRPon 05-03-2025 C-REACTIVE PROT < 3.00 Normal 0.0-3.0 [facility] Comment on above: Performed By: #### L 501.6710, L100.0100, L3410.9992, L101.9900 #### [facility] [address] [place], [address] Erythrocyte Sed Rateon 05-03 SED RATE 10 mm/hr Normal 0-20 [facility] Comment on above: Performed By: #### L 501.6710, L100.0100, L3410.9992, L101.9900 #### [facility] [address] [place], [address] Absolute lymphocyte countOrd ered By: Lenin Hidalgo on 02-14-2025 Lymphocytes Auto (Unsp spec) [#/Vol] 1.17 10*3/uL 0.83-4.51 [facility] Absolute neutrophil countOrd ered By: Lenin Hidalgo on 02-14-2025 Neutrophils (Bld) [#/Vol] 5.1 10*3/uL 2.0-7.7 [facility] Anion gap in Serum or Plasma Ordered By: Lenin Hidalgo on 02-14-2025 Anion gap [Moles/Vol] 12 mmol/L 5-15 [facility] Automated lymphocyte count a s percentage of total leukocytesOrdered By: Lenin Hidalgo on 02-14-2025 Lymphocytes/100 WBC Auto (Unsp spec) 16.7 % Low 19- [facility] BUN/creatinine ratioOrdered By: Lenin Hidalgo on 02-14-2025 Urea nitrogen/Creatinine [Mass ratio] 17.1 mg/mg - [facility] Basophil percentageOrdered B y: Lenin Hidalgo on 02-14-2025 Basophils/100 WBC (Bld) 0.4 % 0-1 [facility] Bilirubin, totalOrdered By: Lenin Hidalgo on 02-14-2025 Bilirubin [Mass/Vol] 0.24 mg/dL 0.00-1.30 [facility] CBC W/Diff, Automatedon 01-27-2024 Absolute Lymph 1.17 X10 3/uL Normal 0.83-4.51 [facility] Comment on above: Order Comment: Order Date: 01/18/25Order Info: 0184-1 - CBCD Performed By: #### L 501.6710, L100.0100, L3410.9992, L101.9900 #### [facility] [address] [place], [address] Absolute Neut 5.1 X10 3/uL Normal 2.0-7.7 [facility] Comment on above: Order Comment: Order Date: 01/18/25Order Info: 0184-1 - CBCD Performed By: #### L 501.6710, L100.0100, L3410.9992, L101.9900 #### [facility] [address] [place], [address] Basophils/100 WBC (Bld) 0.4 % Normal 0-1 [facility] Comment on above: Order Comment: Order Date: 01/18/25Order Info: 0184-1 - CBCD Performed By: #### L 501.6710, L100.0100, L3410.9992, L101.9900 #### [facility] [address] [place], [address] Eosinophils/100 WBC (Bld) 1.6 % Normal 0-5 [facility] Comment on above: Order Comment: Order Date: 01/18/25Order Info: 0184- - CBCD Performed By: #### L 501.6710, L100.0100, L3410.9992, L101.9900 #### [facility] [address] [place], [address] Erythrocyte distribution width (RBC) [Ratio] 11.9 % Normal 11.6-14.6 [facility] Comment on above: Order Comment: Order Date: 01/18/25Order Info: 018- - CBCD Performed By: #### L 501.6710, L100.0100, L3410.9992, L101.9900 #### [facility] [address] [place], [address] Hematocrit (Bld) [Volume fraction] 35.1 % Low 40-54 [facility] Comment on above: Order Comment: Order Date: 01/18/25Order Info: 018- - CBCD Performed By: #### L 501.6710, L100.0100, L3410.9992, L101.9900 #### [facility] [address] [place], [address] Hemoglobin (Bld) [Mass/Vol] 11.9 g/dL Low 13.0-16.5 [facility] Comment on above: Order Comment: Order Date: 01/18/25Order Info: 018- - CBCD Performed By: #### L 501.6710, L100.0100, L3410.9992, L101.9900 #### [facility] [address] [place], [address] IG% 0.300 Normal 0.0-0.9 [facility] Comment on above: Order Comment: Order Date: 01/18/25Order Info: 0184- - CBCD Result Comment: IG% - Immature Granulocytes (promyelocytes, myelocytes and metamyelocytes) > 1% indicates that a LEFT SHIFT is Present. Performed By: #### L 501.6710, L100.0100, L3410.9992, L101.9900 #### [facility] [address] [place], [address] Lymphocytes/100 WBC (Bld) 16.7 % Low 19-41 [facility] Comment on above: Order Comment: Order Date: 01/18/25Order Info: 183- - CBCD Performed By: #### L 501.6710, L100.0100, L3410.9992, L101.9900 #### [facility] [address] [place], [address] MCH (RBC) [Entitic mass] 32.2 pg High 27.0-32.0 [facility] Comment on above: Order Comment: Order Date: 01/18/25Order Info: 183-06 - CBCD Performed By: #### L 501.6710, L100.0100, L3410.9992, L101.9900 #### [facility] [address] [place], [address] MCHC (RBC) [Mass/Vol] 33.9 g/dL Normal 32-36 [facility] Comment on above: Order Comment: Order Date: 01/18/25Order Info: 183-06 - CBCD Performed By: #### L 501.6710, L100.0100, L3410.9992, L101.9900 #### [facility] [address] [place], [address] MCV (RBC) [Entitic vol] 94.9 fL High 80-94 [facility] Comment on above: Order Comment: Order Date: 01/18/25Order Info: 183- - CBCD Performed By: #### L 501.6710, L100.0100, L3410.9992, L101.9900 #### [facility] [address] [place], [address] Monocytes/100 WBC (Bld) 8.7 % Normal 0-10 [facility] Comment on above: Order Comment: Order Date: 01/18/25Order Info: 018- - CBCD Performed By: #### L 501.6710, L100.0100, L3410.9992, L101.9900 #### [facility] [address] [place], [address] Neutrophils/100 WBC (Bld) 72.3 % High 47-70 [facility] Comment on above: Order Comment: Order Date: 01/18/25Order Info: 018- - CBCD Performed By: #### L 501.6710, L100.0100, L3410.9992, L101.9900 #### [facility] [address] [place], [address] Nucleated RBC (Bld) [#/Vol] 0 10*3/uL Normal 0-5 [facility] Comment on above: Order Comment: Order Date: 01/18/25Order Info: 018- - CBCD Performed By: #### L 501.6710, L100.0100, L3410.9992, L101.9900 #### [facility] [address] [place], [address] Platelet mean volume (Bld) [Entitic vol] 8.3 fL Normal 6.2-12.0 [facility] Comment on above: Order Comment: Order Date: 01/18/25Order Info: 018- - CBCD Performed By: #### L 501.6710, L100.0100, L3410.9992, L101.9900 #### [facility] [address] [place], [address] Platelets (Bld) [#/Vol] 323 10*3/uL Normal 150-450 [facility] Comment on above: Order Comment: Order Date: 01/18/25Order Info: 018- - CBCD Performed By: #### L 501.6710, L100.0100, L3410.9992, L101.9900 #### [facility] [address] [place], [place], [id number] RBC (Bld) [#/Vol] 3.70 10*6/uL Low 4.6-6.2 [facility] Comment on above: Order Comment: Order Date: 01/18/25Order Info: 018-1 - CBCD Performed By: #### L 501.6710, L100.0100, L3410.9992, L101.9900 #### [facility] [address] [place], [place], [id number] RDW SD 41.5 fl Normal 35.1-43.9 [facility] Comment on above: Order Comment: Order Date: 01/18/25Order Info: 018- - CBCD Performed By: #### L 501.6710, L100.0100, L3410.9992, L101.9900 #### [facility] [address] [place], [address] WBC (Bld) [#/Vol] 7.0 10*3/uL Normal 4.4-11.0 [facility] Comment on above: Order Comment: Order Date: 01/18/25Order Info: [id number] - CBCD Performed By: #### L 501.6710, L100.0100, L3410.9992, L101.9900 #### [facility] [address] [place], [address] Calculated very low density lipoprotein (VLDL) cholesterol measurementOrdered By: Lenin Hidalgo on 02-14-2025 Calculated very low density lipoprotein (VLDL) cholesterol measurement 16 mg/dL 5-40 [facility] Carbon dioxide, total [Moles /volume] in Central venous bloodOrdered By: Lenin Hidalgo on 02-14-2025 CO2 [Moles/Vol] 24.7 mmol/L 21.0-32.0 [facility] Chloride assayOrdered By: Curtis Hidalgo on 02-14-2025 Chloride [Moles/Vol] 93 mmol/L Low 98-108 [facility] Comprehensive Metabolic Prof ilon 02-14-2025 Albumin [Mass/Vol] 4.3 g/dL Normal 3.4-4.8 [facility] Comment on above: Order Comment: Inter face Comments:standing orderOrder Date: 06/09/24Order Info: 666- - BMPOrder Date: 01/18/25Order Info: 86-1 - CMPOrder Info: [id number] - LIPIDOrder Info: [id number] - TSHstanding orderstanding order Performed By: #### L 501.6710, L100.0100, L3410.9992, L101.9900 #### [facility] [address] [place], [address] Albumin/Globulin [Mass ratio] 1.4 {ratio} Normal 0.9-2.4 [facility] Comment on above: Order Comment: Inter face Comments:standing orderOrder Date: 06/09/24Order Info: [id number] - BMPOrder Date: 01/18/25Order Info: 785-1 - CMPOrder Info: [id number] - LIPIDOrder Info: [id number] - TSHstanding orderstanding order Performed By: #### L 501.6710, L100.0100, L3410.9992, L101.9900 #### [facility] [address] [place], [address] ALK PHOS 62 U/L Normal 40-129 [facility] Comment on above: Order Comment: Inter face Comments:standing orderOrder Date: 06/09/24Order Info: 666- - BMPOrder Date: 01/18/25Order Info: [id number] - CMPOrder Info: [id number] - LIPIDOrder Info: [id number] - TSHstanding orderstanding order Performed By: #### L 501.6710, L100.0100, L3410.9992, L101.9900 #### [facility] [address] [place], [address] ALT [Catalytic activity/Vol] 15 U/L Normal <=46 [facility] Comment on above: Order Comment: Inter face Comments:standing orderOrder Date: 06/09/24Order Info: 666-06 - BMPOrder Date: 01/18/25Order Info: 785- - CMPOrder Info: [id number] - LIPIDOrder Info: [id number] - TSHstanding orderstanding order Performed By: #### L 501.6710, L100.0100, L3410.9992, L101.9900 #### [facility] [address] [place], [address] AST [Catalytic activity/Vol] 20 U/L Normal <=37 [facility] Comment on above: Order Comment: Inter face Comments:standing orderOrder Date: 06/09/24Order Info: 666-06 - BMPOrder Date: 01/18/25Order Info: 785- - CMPOrder Info: [id number] - LIPIDOrder Info: [id number] - TSHstanding orderstanding order Result Comment: Hemo lysis present, Results??could be affected. ?? Performed By: #### L 501.6710, L100.0100, L3410.9992, L101.9900 #### [facility] [address] [place], [address] Bilirubin [Mass/Vol] 0.24 mg/dL Normal 0.00-1.30 [facility] Comment on above: Order Comment: Inter face Comments:standing orderOrder Date: 06/09/24Order Info: 666-06 - BMPOrder Date: 01/18/25Order Info: 785- - CMPOrder Info: [id number] - LIPIDOrder Info: [id number] - TSHstanding orderstanding order Performed By: #### L 501.6710, L100.0100, L3410.9992, L101.9900 #### [facility] [address] [place], [address] BUN/CRE 17.1 RATIO Normal 10-20 [facility] Comment on above: Order Comment: Inter face Comments:standing orderOrder Date: 06/09/24Order Info: [id number] - BMPOrder Date: 01/18/25Order Info: 785- - CMPOrder Info: [id number] - LIPIDOrder Info: [id number] - TSHstanding orderstanding order Performed By: #### L 501.6710, L100.0100, L3410.9992, L101.9900 #### [facility] [address] [place], [address] Calcium [Mass/Vol] 9.6 mg/dL Normal 7.6-11.0 [facility] Comment on above: Order Comment: Inter face Comments:standing orderOrder Date: 06/09/24Order Info: [id number] - BMPOrder Date: 01/18/25Order Info: [id number] - CMPOrder Info: [id number] - LIPIDOrder Info: [id number] - TSHstanding orderstanding order Performed By: #### L 501.6710, L100.0100, L3410.9992, L101.9900 #### [facility] [address] [place], [address] Chloride [Moles/Vol] 93 mmol/L Low 98-108 [facility] Comment on above: Order Comment: Inter face Comments:standing orderOrder Date: 06/09/24Order Info: 666-06 - BMPOrder Date: 01/18/25Order Info: 785- - CMPOrder Info: - LIPIDOrder Info: [id number] - TSHstanding orderstanding order Performed By: #### L 501.6710, L100.0100, L3410.9992, L101.9900 #### [facility] [address] [place], [address] CO2 [Moles/Vol] 24.7 mmol/L Normal 21.0-32.0 [facility] Comment on above: Order Comment: Inter face Comments:standing orderOrder Date: 06/09/24Order Info: 666-06 - BMPOrder Date: 01/18/25Order Info: 785-06 - CMPOrder Info: [id number] - LIPIDOrder Info: [id number] - TSHstanding orderstanding order Performed By: #### L 501.6710, L100.0100, L3410.9992, L101.9900 #### [facility] [address] [place], [place], [address] Creatinine [Mass/Vol] 1.23 mg/dL High 0.70-1.20 [facility] Comment on above: Order Comment: Inter face Comments:standing orderOrder Date: 06/09/24Order Info: 666- - BMPOrder Date: 01/18/25Order Info: 785-1 - CMPOrder Info: [id number] - LIPIDOrder Info: [id number] - TSHstanding orderstanding order Performed By: #### L 501.6710, L100.0100, L3410.9992, L101.9900 #### [facility] [address] [place], [place], [address] GAP 12 Normal 5-15 [facility] Comment on above: Order Comment: Inter face Comments:standing orderOrder Date: 06/09/24Order Info: [id number] - BMPOrder Date: 01/18/25Order Info: 785- - CMPOrder Info: [id number] - LIPIDOrder Info: [id number] - [facility] order Performed By: #### L 501.6710, L100.0100, L3410.9992, L101.9900 #### [facility] [address] [place], [place], [address] GFR/1.73 sq M.predicted among non-blacks MDRD (S/P/Bld) [Vol rate/Area] 62 mL/min/{1.73_m2} Normal >60 [facility] Comment on above: Order Comment: Inter face Comments:standing orderOrder Date: 06/09/24Order Info: [id number] - BMPOrder Date: 01/18/25Order Info: 785-1 - CMPOrder Info: [id number] - LIPIDOrder Info: [id number] - TSHstanding orderstanding order Result Comment: mL/m in/1.73m2 CKD-EPI Creatinine Equation (2020) Performed By: #### L 501.6710, L100.0100, L3410.9992, L101.9900 #### [facility] [address] [place], [address] Globulin (S) [Mass/Vol] 3.1 g/dL Normal 2.2-4.2 [facility] Comment on above: Order Comment: Inter face Comments:standing orderOrder Date: 06/09/24Order Info: 666-1 - BMPOrder Date: 01/18/25Order Info: 86-1 - CMPOrder Info: [id number] - LIPIDOrder Info: [id number] - TSHstanding orderstanding order Performed By: #### L 501.6710, L100.0100, L3410.9992, L101.9900 #### [facility] [address] [place], [address] Glucose [Mass/Vol] 122 mg/dL High 70-99 [facility] Comment on above: Order Comment: Inter face Comments:standing orderOrder Date: 06/09/24Order Info: 666- - BMPOrder Date: 01/18/25Order Info: 785-1 - CMPOrder Info: [id number] - LIPIDOrder Info: [id number] - TSHstanding orderstanding order Performed By: #### L 501.6710, L100.0100, L3410.9992, L101.9900 #### [facility] [address] [place], [address] Potassium [Moles/Vol] 4.8 mmol/L Normal 3.3-5.1 [facility] Comment on above: Order Comment: Inter face Comments:standing orderOrder Date: 06/09/24Order Info: 666- - BMPOrder Date: 01/18/25Order Info: [id number] - CMPOrder Info: [id number] - LIPIDOrder Info: [id number] - TSHstanding orderstanding order Result Comment: Hemo lysis present, Results??could be affected. ?? Performed By: #### L 501.6710, L100.0100, L3410.9992, L101.9900 #### [facility] [address] [place], [address] Sodium [Moles/Vol] 130 mmol/L Low 133-145 [facility] Comment on above: Order Comment: Inter face Comments:standing orderOrder Date: 06/09/24Order Info: [id number] - BMPOrder Date: 01/18/25Order Info: 86-1 - CMPOrder Info: [id number] - LIPIDOrder Info: [id number] - TSHstanding orderstanding order Performed By: #### L 501.6710, L100.0100, L3410.9992, L101.9900 #### [facility] [address] [place], [address] T PROT 7.4 g/dL Normal 5.9-8.4 [facility] Comment on above: Order Comment: Inter face Comments:standing orderOrder Date: 06/09/24Order Info: [id number] - BMPOrder Date: 01/18/25Order Info: 785-1 - CMPOrder Info: [id number] - LIPIDOrder Info: [id number] - TSHstanding orderstanding order Performed By: #### L 501.6710, L100.0100, L3410.9992, L101.9900 #### [facility] [address] [place], [address] Urea nitrogen [Mass/Vol] 21 mg/dL High 4-19 [facility] Comment on above: Order Comment: Inter face Comments:standing orderOrder Date: 06/09/24Order Info: 666-06 - BMPOrder Date: 01/18/25Order Info: 86-1 - CMPOrder Info: [id number] - LIPIDOrder Info: [id number] - TSHstanding orderstanding order Performed By: #### L 501.6710, L100.0100, L3410.9992, L101.9900 #### [facility] [address] [place], [address] Eosinophil percentageOrdered By: Lenin Hidalgo on 02-14-2025 Eosinophils/100 WBC (Bld) 1.6 % 0-5 [facility] Erythrocyte distribution wid th ratioOrdered By: Lenin Hidalgo on 02-14-2025 Erythrocyte distribution width (RBC) [Ratio] 11.9 % 11.6-14.6 [facility] Erythrocyte distribution wid th standard deviationOrdered By: Lenin Hidalgo on 02-14-2025 Erythrocyte distribution width (RBC) [Ratio] 41.5 fl 35.1-43.9 [facility] Glomerular filtration rate ( GFR) estimation/1.73 sq m using serum, plasma, or whole bOrdered By: Lenin Hidalgo on 02-14-2025 GFR/1.73 sq M.predicted among non-blacks MDRD (S/P/Bld) [Vol rate/Area] 62 mL/min/{1.73_m2} >60 [facility] Comment on above: mL/min/1.73m2 CKD-EP I Creatinine Equation (2020) Hematocrit Auto (Bld) [Volum e fraction]Ordered By: Lenin Hidalgo on 02-14-2025 Hematocrit (Bld) [Volume fraction] 35.1 % Low 40-54 [facility] Hemoglobin A1con 02-14-2025 HbA1c (Bld) [Mass fraction] 6.0 % High <=5.6 [facility] Comment on above: Order Comment: Order Date: 11/16/24 Order Info: [id number] - A1C Result Comment: Norm al < 5.7 % Prediabetic 5.7 - 6.4 % Diabetic >or= 6.5 % Please note range changes. Performed By: #### L 500.4100, L501.9985, L501.9520 #### [facility] [address] [place], [address] Hemoglobin A1c percentageOrd ered By: Lenin Hidalgo on 02-14-2025 HbA1c (Bld) [Mass fraction] 6.0 % High <5.7 [facility] Comment on above: Normal < 5.7 % Predi abetic 5.7 - 6.4 % Diabetic >or= 6.5 % Please note range changes. Hemoglobin measurementOrdere d By: Lenin Hidalgo on 02-14-2025 Hemoglobin (Bld) [Mass/Vol] 11.9 g/dL Low 13.0-16.5 [facility] Immature granulocytes/100 WB C Auto (Bld)Ordered By: Lenin Hidalgo on 02-14-2025 Immature granulocytes/100 WBC (Bld) 0.300 % 0.0-0.9 [facility] Comment on above: IG% - Immature Granu locytes (promyelocytes, myelocytes and metamyelocytes) > 1% indicates that a LEFT SHIFT is Present. LDL calc ser/plasOrdered By: Lenin Hidalgo on 02-14-2025 Cholesterol in LDL [Mass/Vol] 86 mg/dL [facility] Comment on above: Dpqjnrmafr=493-672 m g/dL & Higher Tbhl=130 mg/dL or greaterFriedwald Equation for LDL-C Laboratory - Chemistry and C hemistry - challengeOrdered By: Lenin Hidalgo on 02-14-2025 AST [Catalytic activity/Vol] 20 U/L <38 [facility] Comment on above: Hemolysis present, R esults could be affected. Lipid Profileon 02-14-2025 CHOL:HDL 2.50 Normal [facility] Comment on above: Order Comment: Inter face Comments: standing order Order Date: 06/09/24 Order Info: [id number] - BMP Order Date: 01/18/25 Order Info: [id number] - CMP Order Info: [id number] - LIPID Order Info: [id number] - TSH Performed By: #### L 500.4100, L501.9985, L501.9520 #### [facility] [address] [place], [place], [id number] Cholesterol [Mass/Vol] 169 mg/dL Normal <=200 [facility] Comment on above: Order Comment: Inter face Comments: standing order Order Date: 06/09/24 Order Info: [id number] - BMP Order Date: 01/18/25 Order Info: 0786-1 - CMP Order Info: [id number] - LIPID Order Info: [id number] - TSH Result Comment: Chol esterol level, Desirable <200 mg/dL Borderline high cholesterol 200-239 mg/dL High cholesterol >=240 mg/dL Recommendations of the NCEP Adult Treatment Panel for the following risk-cutoff thresholds for the [place] population. Performed By: #### L 500.4100, L501.9985, L501.9520 #### [facility] [address] [place], [address] Cholesterol in HDL [Mass/Vol] 68 mg/dL Normal [facility] Comment on above: Order Comment: Inter face Comments: standing order Order Date: 06/09/24 Order Info: 06- - BMP Order Date: 01/18/25 Order Info: 07 - CMP Order Info: [id number] - LIPID Order Info: 3 - TSH Result Comment: Kaylah onal Cholesterol Education Program (NCEP) guidelines: <40 mg/dL: Low HDL-cholesterol (major risk factor for CHD) >= 60 mg/dL: High HDL-cholesterol (negative risk factor for CHD) HDL-cholesterol is affected by a number of factors, e.g. smoking, exercise, hormones, sex and age. Performed By: #### L 500.4100, L501.9985, L501.9520 #### [facility] [address] [place], [address] Cholesterol in LDL [Mass/Vol] 86 mg/dL Normal [facility] Comment on above: Order Comment: Inter face Comments: standing order Order Date: 06/09/24 Order Info: 666-06 - BMP Order Date: 01/18/25 Order Info: 785-06 - CMP Order Info: [id number] - LIPID Order Info: 3 - TSH Result Comment: Bord jeaxbz=021-079 mg/dL Higher Rvek=751 mg/dL or greater Friedwald Equation for LDL-C Performed By: #### L 500.4100, L501.9985, L501.9520 #### [facility] [address] [place], [address] Cholesterol in VLDL [Mass/Vol] 16 mg/dL Normal 5-40 [facility] Comment on above: Order Comment: Inter face Comments: standing order Order Date: 06/09/24 Order Info: [id number]- - BMP Order Date: 01/18/25 Order Info: [id number] - CMP Order Info: [id number] - LIPID Order Info: [id number] - TSH Performed By: #### L 500.4100, L501.9985, L501.9520 #### [facility] [address] [place], [place], [address] Triglyceride [Mass/Vol] 79 mg/dL Normal [facility] Comment on above: Order Comment: Inter face Comments: standing order Order Date: 06/09/24 Order Info: [id number] - BMP Order Date: 01/18/25 Order Info: [id number] - CMP Order Info: [id number] - LIPID Order Info: [id number] - TSH Result Comment: The drugs N-Acetylcysteine and Metamizole may falsely depress this assay. Normal range: <150 mg/dL Borderline High: 150-199 mg/dL High: 200-499 mg/dL Very High: >500 mg/dL Performed By: #### L 500.4100, L501.9985, L501.9520 #### [facility] [address] [place], [place], [address] MCV (mean corpuscular volume ) determinationOrdered By: Lenin Hidalgo on 02-14-2025 MCV (RBC) [Entitic vol] 94.9 fL High 80-94 [facility] Mean corpuscular hemoglobin (MCH) determinationOrdered By: Lenin Hidalgo on 02-14-2025 MCH (RBC) [Entitic mass] 32.2 pg High 27.0-32.0 [facility] Mean corpuscular hemoglobin concentration (MCHC) determinationOrdered By: Lenin Hidalgo on 02-14-2025 MCHC (RBC) [Mass/Vol] 33.9 g/dL 32-36 [facility] Mean platelet volume determi nationOrdered By: Lenin Hidalgo on 02-14-2025 Platelet mean volume (Bld) [Entitic vol] 8.3 fL 6.2-12.0 [facility] Microalbumin,Random Urineon 02-14-2025 MICROALBUMIN,UR 31.2 mg/L Normal <20 mg/L [facility] Comment on above: Order Comment: Order Date: 01/18/25Order Info: [id number] - MIALB Performed By: #### L 501.6710, L100.0100, L3410.9992, L101.9900 #### [facility] [address] [place], [address] Monocyte percentageOrdered B y: Lenin Hidalgo on 02-14-2025 Monocytes/100 WBC (Bld) 8.7 % 0-10 [facility] Neutrophil percentageOrdered By: Lenin Hidalgo on 02-14-2025 Neutrophils/100 WBC (Bld) 72.3 % High 47-70 [facility] Nucleated red blood cell per centageOrdered By: Lenin Hidalgo on 02-14-2025 Nucleated RBC/100 WBC (Bld) [Ratio] 0 % 0-5 [facility] Platelet countOrdered By: Curtis Hidalgo on 02-14-2025 Platelets (Bld) [#/Vol] 323 10*3/uL 150-450 [facility] Potassium measurement (mass/ volume)Ordered By: Lenin Hidalgo on 02-14-2025 Potassium (Unsp spec) [Mass/Vol] 4.8 mmol/L 3.3-5.1 [facility] Comment on above: Hemolysis present, R esults could be affected. RBC Auto (Bld) [#/Vol]Ordere d By: Lenin Hidalgo on 02-14-2025 RBC (Bld) [#/Vol] 3.70 10*6/uL Low 4.6-6.2 [facility] Screening total cholesterol/ high density lipoprotein (HDL) cholesterol ratioOrdered By: Lenin Hidalgo on 02-14-2025 Cholesterol.total/Anastasiia sterol in HDL [Mass ratio] 2.50 {ratio} [facility] Serum creatinine measurement (mass/volume)Ordered By: Lenin Hidalgo on 02-14-2025 Creatinine [Mass/Vol] 1.23 mg/dL High 0.70-1.20 [facility] Serum globulin measurementOr dered By: Lenin Hidalgo on 02-14-2025 Globulin (S) [Mass/Vol] 3.1 g/dL 2.2-4.2 [facility] Serum glucose measurement (m ass/volume)Ordered By: Lenin Hidalgo on 02-14-2025 Glucose [Mass/Vol] 122 mg/dL High 70-99 [facility] Serum or plasma alanine pringle otransferase (ALT) measurementOrdered By: Lenin Hidalgo on 02-14-2025 ALT [Catalytic activity/Vol] 15 U/L <47 [facility] Serum or plasma albumin kay urement (mass/volume)Ordered By: Lenin Hidalgo on 02-14-2025 Albumin [Mass/Vol] 4.3 g/dL 3.4-4.8 [facility] Serum or plasma albumin/glob ulin mass ratioOrdered By: Lenin Hidalgo on 02-14-2025 Albumin/Globulin [Mass ratio] 1.4 {ratio} 0.9-2.4 [facility] Serum or plasma alkaline ranjana sphatase measurementOrdered By: Lenin Hidalgo on 02-14-2025 ALP [Catalytic activity/Vol] 62 U/L 40-129 [facility] Serum or plasma calcium kay urement (mass/volume)Ordered By: Lenin Hidalgo on 02-14-2025 Calcium [Mass/Vol] 9.6 mg/dL 7.6-11.0 [facility] Serum or plasma cholesterol in HDL measurement (mass/volume)Ordered By: Lenin Hidalgo on 02-14-2025 Cholesterol in HDL [Mass/Vol] 68 mg/dL >40 [facility] Comment on above: National Cholesterol Education Program (NCEP) guidelines:<40 mg/dL: Low HDL-cholesterol (major risk factor for CHD)>= 60 mg/dL: High HDL-cholesterol (negative risk factor for CHD)HDL-cholesterol is affected by a number of factors, e.g. smoking, exercise, hormones, sex and age. Serum or plasma cholesterol measurement (mass/volume)Ordered By: Lenin Hidalgo on 02-14-2025 Cholesterol [Mass/Vol] 169 mg/dL <201 [facility] Comment on above: Cholesterol level, D esirable <200 mg/dLBorderline high cholesterol 200-239 mg/dLHigh cholesterol >=240 mg/dLRecommendations of the NCEP Adult Treatment Panel for the following risk-cutoff thresholds for the [place] population. Serum or plasma urea nitroge n measurement (mass/volume)Ordered By: Lenin Hidalgo on 02-14-2025 Urea nitrogen [Mass/Vol] 21 mg/dL High 4-19 [facility] Sodium levelOrdered By: Lenin Hidalgo on 02-14-2025 Sodium [Moles/Vol] 130 mmol/L Low 133-145 [facility] TSH DL <= 0.005 mIU/L QnOrde red By: Lenin Hidalgo on 02-14-2025 TSH Qn 0.223 uIU/mL Low 0.300-4.20 0 [facility] Thyroid Stim Hormone (TSH)on 02-14-2025 TSH 0.223 uIU/mL Low 0.300-4.20 0 [facility] Comment on above: Order Comment: Inter face Comments: standing order Order Date: 06/09/24 Order Info: [id number] - BMP Order Date: 01/18/25 Order Info: [id number] - CMP Order Info: [id number] - LIPID Order Info: [id number] - TSH Performed By: #### L 500.4100, L501.9985, L501.9520 #### [facility] [address] [place], [address] Total proteinOrdered By: Selma Hidalgo on 02-14-2025 Protein [Mass/Vol] 7.4 g/dL 5.9-8.4 [facility] Triglycerides measurementOrd ered By: Lenin Hidalgo on 02-14-2025 Triglyceride [Mass/Vol] 79 mg/dL <199 [facility] Comment on above: The drugs N-Acetylcy steine and Metamizole may falsely depress this assay. Normal range: <150 mg/dLBorderline High: 150-199 mg/dLHigh: 200-499 mg/dLVery High: >500 mg/dL Urine albumin measurement wi detection limit of 20 mg/L or less (mass/volume)Ordered By: Lenin Hidalgo on 02-14-2025 Albumin DL <= 20 mg/L (U) [Mass/Vol] 31.2 mg/L <20 mg/L [facility] White blood cell (WBC) count Ordered By: Lenin Hidalgo on 02-14-2025 WBC (Bld) [#/Vol] 7.0 10*3/uL 4.4-11.0 [facility] Cardiovascular stress test r eportOrdered By: Trenton Gerard on 01-24-2025 Study report [facility] Cardiovascular Services [address] [place] [address] MR#: [id number] Acct: [id number] Name: OSMAN PADGETT Rep #: [id number] : 1950 75 From: Trenton Gerard MD Primary Care: Dr. Lenin Hidalgo MD Status: REG CLI Referring Dr: Asia Qureshi NP [employer] PROFESSOR-C Sex: M C Stress Test Report Exercise [...] workload Preserved ejection fraction. 01/24/25 1535 Date _ Trenton Gerard MD CC: WE[employer] PROFESSOR-C Asia Qureshi; Dr. Lenin Hidalgo MD ~ Date Dictated: 01/24/251531 Date Transcribed: 01/24/251531 Donkey Doctor: CO Signed [facility] Work Phone: Stress Reporton 01-24-2025 Stress Report [facility] Cardiovascular Services [address] [place] [address] MR#: [id number] Acct: [id number] Name: OSMAN PADGETT Rep #: [id number] : 1950 75 From: Trenton Gerard MD Primary Care: Dr. Lenin Hidalgo MD Status: R EG CLI Referring Dr: Asia Qureshi NP [employer] PROFESSOR-C Sex: M C Stress Test Report Exercise [...] at a moderate workload Preserved ejection fraction. 01/24/251534 Date Trenton Gerard MD CC: LYNN Qureshi; Dr. Lenin Hidalgo MD Date Dictated: 01/24/251531 Date Transcribed: 01/24/251531 Donkey Doctor: CO Signed Normal [facility] Cardiology Visit Reporton Cardiology Visit Report [facility] [address] [facility] [place], [place] [address] OFFICE VISIT Date of Service: 01/18/25 MR#: [id number] Acct: [id number] Name: OSMAN PADGETT Rep #: [id number] : 1950 Provider: LYNN Duncan rts Age/Sex: 75/M Location: [facility] Status: Signed HPI HPI History of Present [...] air Intake Visit Reasons: 1 Y FU Hydraulic Jack Adjuster Required: No Accompanied by: Is patient in pain?: No Allergies Thiazides Allergy (Severe, Verified 01/18/25 09:31) Other diphenhydramine (From Benadryl) Allergy (Intermediate, Verified 01/18/25 09:31) Other Penicillins Allergy (Intermediate, Verified 01/18/25 09:31) Rash Spaqgic-HBE-ZrW Reductase Inhibitor Allergy (Intermediate, Verified 01/18/25 09:31) [...] tab PO QDAY 01/18/25 01/18/25 Hi story qrhrwz-oduxkybd-ldcovnp cap PO TID 01/18/25 01/18/25 Histo ry 36,000-114,000-180,000 unit capsule,delay rel (Creon) lisinopril 2.5 mg tablet 2.5 mg PO QHS 01/18/25 01/18/25 Hi story ropinirole 2 mg tablet 4 mg PO QHS 01/18/25 01/18/25 Hist ory semaglutide 0.25 mg or 0.5 mg (2 0.5 mg subcut QWEEK 01/18/2501/18 History mg/3 mL) alcantara (more content not included)... Normal [facility] Cardiology Visit Reporton Cardiology Visit Report [facility] 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 History Chronic kidney disease (CKD) Abnormal stress test Nasal turbinate hypertrophy Closed fracture nasal bone Acquired nasal deformity Nasal septal deviation Nasal congestion Type 2 diabetes mellitus Right bundle branch block History of basal cell carcinoma Allergic rhinitis due to other allergen Spondylolisthesis Erectile dysfunction Essential hypertension Pure hypercholes (more content not included)... Normal [facility] Surgery Visit Reporton 10-16 Surgery Visit Report [facility] [address] [place] [address] OFFICE VISIT Date of Service: 10/16/24 MR#: [id number] Acct: [id number] Name: OSMAN PADGETT Rep #: [id number] : 1950 Provider: Dr. Miguel ramirez MD Age/Sex: 74/M Location: [facility] Status: Signed Intake Vital Signs 07/07/24 11:28 Height 6 ft Intake Visit Reasons: RECALL THYROID Chief Complaint: recall thyroid Is patient in pain?: No Allergies Thiazides Allergy (Severe, Verified 10/16/24 13:09) Other diphenhydramine (From Benadryl) Allergy (Intermediate, Verified 10/16/24 13:09) Other Penicillins Allergy (Intermediate, Verified 10/16/24 13:09) Rash Bhfttee-XOI-ZsR Reductase Inhibitor Allergy (Intermediate, Verified 10/16/24 13:09) [...] . This (more content not included)... Normal [facility] Abdomen Limitedon 10-05-2024 Abdomen Limited [facility] Imaging Services [address] [place] [address] Abdomen Limited MR#: [id number] Acct: [id number] Name: OSMAN PADGETT Rep #: [id number] : 1950 M 74 From: Rodrigue Chanel i DO PCP: Dr. Lenin Hidalgo MD Status: REG CLI Study: Abdomen Limited Date of Exam: 10/05/24 Exam# [id number] Ordering Dr: Lenin Hidalgo MD PROCEDURE: Abdominal [...] of the examination is unremarkable. [facility] CC: Dr. Lenin Hidalgo MD Donkey Doctor: Signed Normal [facility] Albumin DL <= 20 mg/L (U) [M ass/Vol]Ordered By: Lenin Hidalgo on 10-05-2024 Urine Random Microalbumin < 12.0 mg/L NO RANGE EST. [facility] Creatinine Unsp time (U) [Ma ss/Vol]Ordered By: Lenin Hidalgo on 10-05-2024 Creatinine (U) [Mass/Vol] 72.60 mg/dL 39.00-259. 00 [facility] Microalb:Creat Ratio,Random URon 10-05-2024 Creatinine [Mass/Vol] 72.60 mg/dL Normal 39.00- 259. 00 [facility] Comment on above: Performed By: #### L 502.0250 #### [facility] Laboratory [address] [place], [place], [id number] MALB:CREAT UNABLE TO CALCULATE Normal [facility] Comment on above: Performed By: #### L 502.0250 #### [facility] Laboratory [address] [place], [place], [id number] MICROALBUMIN,UR < 12.0 Normal NO RANGE EST. [facility] Comment on above: Performed By: #### L 502.0250 #### [facility] Laboratory [address] [place], [place], [id number] Microalbumin/creat ratio urO rdered By: Lenin Hidalgo on 10-05-2024 Urine Microalbumin/Creatinine Ratio UNABLE TO CALCULATE mg/g CRE [facility] Urine microalbumin/creatinine ratio measurement UNABLE TO CALCULATE mg/g CRE [facility] Random urine creatinine kay urement (mass/volume)Ordered By: Lenin Hidalgo on 10-05-2024 Creatinine Unsp time (U) [Mass/Vol] 72.60 mg/dL 39.00-259. 00 [facility] Thyroidon 10-05-2024 Thyroid [facility] Imaging Services [address] [place], [place] [address] Thyroid MR#: [id number] Acct: [id number] Name: OSMAN PADGETT Rep #: [id number] : 1950 M 74 From: Sumi Hagan nd, MD PCP: Dr. Lenin Hidalgo MD Status: REG CLI Study: Thyroid Date of Exam: 10/05/24 Exam# [id number] Ordering Dr: Miguel Kirby MD PROCEDURE: THYROID [...] TI-RADS criteria for follow- up. Reading Location: [facility] CC: Dr. Lenin Hidalgo MD; Dr. Miguel Kirby MD Donkey Doctor: Signed Normal [facility] Urine albumin measurement [facility] detection limit of 20 mg/L or less (mass/volume)Ordered By: Lenin Hidalgo on 10-05-2024 Albumin DL <= 20 mg/L (U) [Mass/Vol] < 12.0 mg/L NO RANGE EST. [facility] Rubeola IgG Abon 10-04-2024 RUBEOLA Ab, IgG > 300.0 Normal Immune >16.4 [facility] Comment on above: Order Comment: [id number] BARTONELLA HENSELAE SERUM RMT Result Comment: Nega tive <13.5 Equivocal 13.5 - 16.4 Positive >16.4 Presence of antibodies to Rubeola is presumptive evidence of immunity except when acute infection is suspected. Performed at: - [facility] [id number] Ma[place] Supervisor: Bonifacio De Jesus PhD, Phone: [phone] Performed By: #### L 501.6710, L100.0100, L3410.9992, L101.9900 #### [facility] Laboratory [address] [place], [address] Vitamin D,25 Hydroxyon 10-03 Vitamin D 25-OH 54.1 ng/mL Normal 30-100 [facility] Comment on above: Order Comment: DR. Raymond BAKER ORDERED VITD*ADD ONPLEASE ADD ON VITD TO LABS DONE ON 10-02-24 Result Comment: Magdalene min D Status Deficiency: <20 ng/mL (50nmol/L) Insufficiency: 20-30 ng/mL (50-75 nmol/L) Sufficiency: 30-100 ng/mL (75-250 nmol/L) Toxicity: >100 ng/mL (>250 nmol/L) Performed By: #### L 501.6710, L100.0100, L3410.9992, L101.9900 #### [facility] [address] [place], [place], [id number] Anion gap in Serum or Plasma Ordered By: Lenin Hidalgo on 10-02-2024 Anion gap [Moles/Vol] 14 mmol/L 5- [facility] BUN/creatinine ratioOrdered By: Lenin Hidalgo on 10-02-2024 Urea nitrogen/Creatinine [Mass ratio] 15.9 mg/mg 10- [facility] Bilirubin, totalOrdered By: Lenin Hidalgo on 10-02-2024 Bilirubin [Mass/Vol] 0.24 mg/dL 0.00-1.30 [facility] Carbon dioxide, total [Moles /volume] in Central venous bloodOrdered By: Lenin Hidalgo on 10-02-2024 CO2 [Moles/Vol] 22.8 mmol/L 21.0-32.0 [facility] Chloride assayOrdered By: Curtis Hidalgo on 10-02-2024 Chloride [Moles/Vol] 98 mmol/L 98-108 [facility] Comprehensive Metabolic Prof ilon 10-02-2024 Albumin [Mass/Vol] 4.1 g/dL Normal 3.4-4.8 [facility] Comment on above: Performed By: #### L 501.6710, L100.0100, L3410.9992, L101.9900 #### [facility] Laboratory [address] [place], [address] Albumin/Globulin [Mass ratio] 1.4 {ratio} Normal 0.9-2.4 [facility] Comment on above: Performed By: #### L 501.6710, L100.0100, L3410.9992, L101.9900 #### [facility] [address] [place], [address] ALK PHOS 46 U/L Normal 40-129 [facility] Comment on above: Performed By: #### L 501.6710, L100.0100, L3410.9992, L101.9900 #### [facility] [address] [place], [address] ALT [Catalytic activity/Vol] 17 U/L Normal <=46 [facility] Comment on above: Performed By: #### L 501.6710, L100.0100, L3410.9992, L101.9900 #### [facility] [address] [place], [address] AST [Catalytic activity/Vol] 18 U/L Normal <=37 [facility] Comment on above: Performed By: #### L 501.6710, L100.0100, L3410.9992, L101.9900 #### [facility] [address] [place], [address] Bilirubin [Mass/Vol] 0.24 mg/dL Normal 0.00-1.30 [facility] Comment on above: Performed By: #### L 501.6710, L100.0100, L3410.9992, L101.9900 #### [facility] [address] [place], [address] BUN/CRE 15.9 RATIO Normal 10-20 [facility] Comment on above: Performed By: #### L 501.6710, L100.0100, L3410.9992, L101.9900 #### [facility] [address] [place], [address] Calcium [Mass/Vol] 9.4 mg/dL Normal 7.6-11.0 [facility] Comment on above: Performed By: #### L 501.6710, L100.0100, L3410.9992, L101.9900 #### [facility] [address] [place], [address] Chloride [Moles/Vol] 98 mmol/L Normal 98-108 [facility] Comment on above: Performed By: #### L 501.6710, L100.0100, L3410.9992, L101.9900 #### [facility] [address] [place], [address] CO2 [Moles/Vol] 22.8 mmol/L Normal 21.0-32.0 [facility] Comment on above: Performed By: #### L 501.6710, L100.0100, L3410.9992, L101.9900 #### [facility] [address] [place], [address] Creatinine [Mass/Vol] 1.38 mg/dL High 0.70-1.20 [facility] Comment on above: Performed By: #### L 501.6710, L100.0100, L3410.9992, L101.9900 #### [facility] [address] [place], [address] GAP 14 Normal 5-15 [facility] Comment on above: Performed By: #### L 501.6710, L100.0100, L3410.9992, L101.9900 #### [facility] [address] [place], [address] GFR/1.73 sq M.predicted among non-blacks MDRD (S/P/Bld) [Vol rate/Area] 54 mL/min/{1.73_m2} Low >60 [facility] Comment on above: Result Comment: mL/m in/1.73m2 CKD-EPI Creatinine Equation (2020) Performed By: #### L 501.6710, L100.0100, L3410.9992, L101.9900 #### [facility] [address] [place], [address] Globulin (S) [Mass/Vol] 2.9 g/dL Normal 2.2-4.2 [facility] Comment on above: Performed By: #### L 501.6710, L100.0100, L3410.9992, L101.9900 #### [facility] [address] [place], [address] Glucose [Mass/Vol] 185 mg/dL High 70-99 [facility] Comment on above: Performed By: #### L 501.6710, L100.0100, L3410.9992, L101.9900 #### [facility] [address] [place], [address] Potassium [Moles/Vol] 4.0 mmol/L Normal 3.3-5.1 [facility] Comment on above: Performed By: #### L 501.6710, L100.0100, L3410.9992, L101.9900 #### [facility] [address] [place], [address] Sodium [Moles/Vol] 134 mmol/L Normal 133-145 [facility] Comment on above: Performed By: #### L 501.6710, L100.0100, L3410.9992, L101.9900 #### [facility] [address] [place], [address] T PROT 7.0 g/dL Normal 5.9-8.4 [facility] Comment on above: Performed By: #### L 501.6710, L100.0100, L3410.9992, L101.9900 #### [facility] [address] [place], [address] Urea nitrogen [Mass/Vol] 22 mg/dL High 4-19 [facility] Comment on above: Performed By: #### L 501.6710, L100.0100, L3410.9992, L101.9900 #### [facility] [address] [place], [address] GFR/1.73 sq M.predicted paul g non-blacks MDRD (S/P/Bld) [Vol rate/Area]Ordered By: Lenin Hidalgo on 10-02-2024 Estimated GFR (MDRD) Non-Af Amer 54 Low >60 [facility] Comment on above: mL/min/1.73m2 CKD-EP I Creatinine Equation (2020) Glomerular filtration rate ( GFR) estimation/1.73 sq m using serum, plasma, or whole bOrdered By: Lenin Hidalgo on 10-02-2024 GFR/1.73 sq M.predicted among non-blacks MDRD (S/P/Bld) [Vol rate/Area] 54 mL/min/{1.73_m2} Low >60 [facility] Comment on above: mL/min/1.73m2 CKD-EP I Creatinine Equation (2020) Laboratory - Chemistry and C hemistry - challengeOrdered By: Lenin Hidalgo on 04-07-2025 AST [Catalytic activity/Vol] 18 U/L <38 [facility] Lipaseon 10-02-2024 Lipase [Catalytic activity/Vol] 18 U/L Normal 13-75 [facility] Comment on above: Result Comment: To tesfaye note: LIPASE revised reference range effective 22. New Lipase methodology. Expected to produce lower values than the previous assay method. NEW Reference Range: 13 - 75 U/L Performed By: #### L 501.6710, L100.0100, L3410.9992, L101.9900 #### [facility] [address] [place], [place], [id number] (714) Lipase measurementOrdered By : Lenin Hidalgo on 10-02-2024 Lipase [Catalytic activity/Vol] 18 U/L 13-75 [facility] Comment on above: Please note:LIPASE r evised reference range effective 22. New Lipase methodology. Expected to produce lower values than the previous assay method. NEW Reference Range: 13 - 75 U/L Magnesiumon 10-02-2024 Magnesium [Mass/Vol] 1.6 mg/dL Normal 1.5-2.2 [facility] Comment on above: Performed By: #### L 501.6710, L100.0100, L3410.9992, L101.9900 #### [facility] [address] [place], [place], [address] Magnesium (Unsp spec) [Mass/ Vol]Ordered By: Lenin Hidalgo on 10-02-2024 Magnesium [Mass/Vol] 1.6 mg/dL 1.5-2.2 [facility] Magnesium measurement (mass/ volume)Ordered By: Lenin Hidalgo on 10-02-2024 Magnesium (Unsp spec) [Mass/Vol] 1.6 mg/dL 1.5-2.2 [facility] MeV IgG IA Qn (S)Ordered By: Lenin Hidalgo on 10-02-2024 Rubeola (Measles) IgG Antibody > 300.0 AU/mL Immune >16.4 [facility] Comment on above: Negative <13.5 Equiv ocal 13.5 - 16.4 Positive >16.4Presence of antibodies to Rubeola is presumptive evidenceof immunity except when acute infection is suspected.Performed at: [facility] [id number] Director: Bonifacio De Jesus PhD, Phone: [phone] Potassium (Unsp spec) [Mass/ Vol]Ordered By: Lenin Hidalgo on 10-02-2024 Potassium [Moles/Vol] 4.0 mmol/L 3.3-5.1 [facility] Potassium measurement (mass/ volume)Ordered By: Lenin Hidalgo on 10-02-2024 Potassium (Unsp spec) [Mass/Vol] 4.0 mmol/L 3.3-5.1 [facility] Serum creatinine measurement (mass/volume)Ordered By: Lenin Hidalgo on 10-02-2024 Creatinine [Mass/Vol] 1.38 mg/dL High 0.70-1.20 [facility] Serum globulin measurementOr dered By: Lenin Hidalgo on 10-02-2024 Globulin (S) [Mass/Vol] 2.9 g/dL 2.2-4.2 [facility] Serum glucose measurement (m ass/volume)Ordered By: Lenin Hidalgo on 10-02-2024 Glucose [Mass/Vol] 185 mg/dL High 70-99 [facility] Serum measles virus IgG anti body assay by immunoassay (units/volume)Ordered By: Lenin Hidalgo on 10-02-2024 MeV IgG IA Qn (S) > 300.0 AU/mL Immune >16.4 [facility] Comment on above: Negative <13.5 Equiv ocal 13.5 - 16.4 Positive >16.4Presence of antibodies to Rubeola is presumptive evidenceof immunity except when acute infection is suspected.Performed at: [facility] [id number] Director: Bonifacio De Jesus PhD, Phone: [phone] Serum or plasma alanine pringle otransferase (ALT) measurementOrdered By: Lenin Hidalgo on 10-02-2024 ALT [Catalytic activity/Vol] 17 U/L <47 [facility] Serum or plasma albumin kay urement (mass/volume)Ordered By: Lenin Hidalgo on 10-02-2024 Albumin [Mass/Vol] 4.1 g/dL 3.4-4.8 [facility] Serum or plasma albumin/glob ulin mass ratioOrdered By: Lenin Hidalgo on 10-02-2024 Albumin/Globulin [Mass ratio] 1.4 {ratio} 0.9-2.4 [facility] Serum or plasma alkaline ranjana sphatase measurementOrdered By: Lenin Hidalgo on 10-02-2024 ALP [Catalytic activity/Vol] 46 U/L 40-129 [facility] Serum or plasma calcium kay urement (mass/volume)Ordered By: Lenin Hidalgo on 10-02-2024 Calcium [Mass/Vol] 9.4 mg/dL 7.6-11.0 [facility] Serum or plasma urea nitroge n measurement (mass/volume)Ordered By: Lenin Hidalgo on 10-02-2024 Urea nitrogen [Mass/Vol] 22 mg/dL High 4-19 [facility] Sodium levelOrdered By: Lenin Hidalgo on 10-02-2024 Sodium [Moles/Vol] 134 mmol/L 133-145 [facility] Total proteinOrdered By: Selma Hidalgo on 10-02-2024 Protein [Mass/Vol] 7.0 g/dL 5.9-8.4 [facility] Vitamin D, 25-hydroxyOrdered By: Lenin Hidalgo on 10-02-2024 Vitamin D 25-Hydroxy 54.1 ng/mL 30-100 [facility] Comment on above: Vitamin D StatusDefi ciency: <20 ng/mL (50nmol/L)Insufficiency: 20-30 ng/mL (50-75 nmol/L)Sufficiency: 30-100 ng/mL (75-250 nmol/L)Toxicity: >100 ng/mL (>250 nmol/L) L7000.0750on 09-27-2024 P ELASTASE,FECA 49 Low >200 [facility] Comment on above: Result Comment: Resu lt Units: ug Elast./g Severe Pancreatic Insufficiency: <100 Moderate Pancreatic Insufficiency: 100 - 200 Normal: >200 Performed at: - [facility] [address] [id number] Maid Supervisor: Eduard Linares MD, Phone: [phone] Performed By: #### L 302.4170, L100.0100, L3410.9992, L101.9900 #### [facility] [address] [place], [place], [id number] Anion gap in Serum or Plasma Ordered By: Lenin Hidalgo on 09-25-2024 Anion gap [Moles/Vol] 13 mmol/L 5-15 [facility] BUN/creatinine ratioOrdered By: Lenin Hidalgo on 09-25-2024 Urea nitrogen/Creatinine [Mass ratio] 14.2 mg/mg 10-20 [facility] Bilirubin, totalOrdered By: Lenin Hidalgo on 09-25-2024 Bilirubin [Mass/Vol] 0.39 mg/dL 0.00-1.30 [facility] Carbon dioxide, total [Moles /volume] in Central venous bloodOrdered By: Lenin Hidalgo on 09-25-2024 CO2 [Moles/Vol] 24.0 mmol/L 21.0-32.0 [facility] Chloride assayOrdered By: Curtis Hidalgo on 09-25-2024 Chloride [Moles/Vol] 93 mmol/L Low 98-108 [facility] Comprehensive Metabolic Prof ilon 09-25-2024 Albumin [Mass/Vol] 4.5 g/dL Normal 3.4-4.8 [facility] Comment on above: Order Comment: Order Date: 09/25/24Order Info: [id number] - CMPOrder Info: [id number] - LIPASEOrder Info: - MG Performed By: #### L 501.6710, L100.0100, L3410.9992, L101.9900 #### [facility] [address] [place], [place], [id number] Albumin/Globulin [Mass ratio] 1.4 {ratio} Normal 0.9-2.4 [facility] Comment on above: Order Comment: Order Date: 09/25/24Order Info: [id number] - CMPOrder Info: [id number] - LIPASEOrder Info: [id number] - MG Performed By: #### L 501.6710, L100.0100, L3410.9992, L101.9900 #### [facility] [address] [place], [place], [address] ALK PHOS 57 U/L Normal 40-129 [facility] Comment on above: Order Comment: Order Date: 09/25/24Order Info: [id number] - CMPOrder Info: [id number] - LIPASEOrder Info: [id number] - MG Performed By: #### L 501.6710, L100.0100, L3410.9992, L101.9900 #### [facility] [address] [place], [address] ALT [Catalytic activity/Vol] 17 U/L Normal <=46 [facility] Comment on above: Order Comment: Order Date: 09/25/24Order Info: [id number] - CMPOrder Info: [id number] - LIPASEOrder Info: - MG Performed By: #### L 501.6710, L100.0100, L3410.9992, L101.9900 #### [facility] [address] [place], [place], [id number] AST [Catalytic activity/Vol] 18 U/L Normal <=37 [facility] Comment on above: Order Comment: Order Date: 09/25/24Order Info: [id number] - CMPOrder Info: [id number] - LIPASEOrder Info: - MG Performed By: #### L 501.6710, L100.0100, L3410.9992, L101.9900 #### [facility] [address] [place], [address] Bilirubin [Mass/Vol] 0.39 mg/dL Normal 0.00-1.30 [facility] Comment on above: Order Comment: Order Date: 09/25/24Order Info: [id number] - CMPOrder Info: [id number] - LIPASEOrder Info: - MG Performed By: #### L 501.6710, L100.0100, L3410.9992, L101.9900 #### [facility] [address] [place], [address] BUN/CRE 14.2 RATIO Normal 10-20 [facility] Comment on above: Order Comment: Order Date: 09/25/24Order Info: [id number] - CMPOrder Info: [id number] - LIPASEOrder Info: [id number] - MG Performed By: #### L 501.6710, L100.0100, L3410.9992, L101.9900 #### [facility] [address] [place], [address] Calcium [Mass/Vol] 10.0 mg/dL Normal 7.6-11.0 [facility] Comment on above: Order Comment: Order Date: 09/25/24Order Info: [id number] - CMPOrder Info: [id number] - LIPASEOrder Info: [id number] - MG Performed By: #### L 501.6710, L100.0100, L3410.9992, L101.9900 #### [facility] [address] [place], [address] Chloride [Moles/Vol] 93 mmol/L Low 98-108 [facility] Comment on above: Order Comment: Order Date: 09/25/24Order Info: [id number] - CMPOrder Info: [id number] - LIPASEOrder Info: [id number] - MG Performed By: #### L 501.6710, L100.0100, L3410.9992, L101.9900 #### [facility] [address] [place], [address] CO2 [Moles/Vol] 24.0 mmol/L Normal 21.0-32.0 [facility] Comment on above: Order Comment: Order Date: 09/25/24Order Info: [id number] - CMPOrder Info: [id number] - LIPASEOrder Info: [id number] - MG Performed By: #### L 501.6710, L100.0100, L3410.9992, L101.9900 #### [facility] [address] [place], [address] Creatinine [Mass/Vol] 1.49 mg/dL High 0.70-1.20 [facility] Comment on above: Order Comment: Order Date: 09/25/24Order Info: [id number] - CMPOrder Info: [id number] - LIPASEOrder Info: [id number] - MG Performed By: #### L 501.6710, L100.0100, L3410.9992, L101.9900 #### [facility] [address] [place], [address] GAP 13 Normal 5-15 [facility] Comment on above: Order Comment: Order Date: 09/25/24Order Info: [id number] - CMPOrder Info: [id number] - LIPASEOrder Info: [id number] - MG Performed By: #### L 501.6710, L100.0100, L3410.9992, L101.9900 #### [facility] [address] [place], [address] GFR/1.73 sq M.predicted among non-blacks MDRD (S/P/Bld) [Vol rate/Area] 49 mL/min/{1.73_m2} Low >60 [facility] Comment on above: Order Comment: Order Date: 09/25/24Order Info: [id number] - CMPOrder Info: [id number] - LIPASEOrder Info: [id number] - MG Result Comment: mL/m in/1.73m2 CKD-EPI Creatinine Equation (2020) Performed By: #### L 501.6710, L100.0100, L3410.9992, L101.9900 #### [facility] [address] [place], [address] Globulin (S) [Mass/Vol] 3.3 g/dL Normal 2.2-4.2 [facility] Comment on above: Order Comment: Order Date: 09/25/24Order Info: [id number] - CMPOrder Info: [id number] - LIPASEOrder Info: [id number] - MG Performed By: #### L 501.6710, L100.0100, L3410.9992, L101.9900 #### [facility] [address] [place], [address] Glucose [Mass/Vol] 110 mg/dL High 70-99 [facility] Comment on above: Order Comment: Order Date: 09/25/24Order Info: [id number] - CMPOrder Info: [id number] - LIPASEOrder Info: [id number] - MG Performed By: #### L 501.6710, L100.0100, L3410.9992, L101.9900 #### [facility] [address] [place], [address] Potassium [Moles/Vol] 5.1 mmol/L Normal 3.3-5.1 [facility] Comment on above: Order Comment: Order Date: 09/25/24Order Info: [id number] - CMPOrder Info: [id number] - LIPASEOrder Info: [id number] - MG Performed By: #### L 501.6710, L100.0100, L3410.9992, L101.9900 #### [facility] [address] [place], [address] Sodium [Moles/Vol] 130 mmol/L Low 133-145 [facility] Comment on above: Order Comment: Order Date: 09/25/24Order Info: [id number] - CMPOrder Info: [id number] - LIPASEOrder Info: [id number] - MG Performed By: #### L 501.6710, L100.0100, L3410.9992, L101.9900 #### [facility] [address] [place], [address] T PROT 7.7 g/dL Normal 5.9-8.4 [facility] Comment on above: Order Comment: Order Date: 09/25/24Order Info: [id number] - CMPOrder Info: [id number] - LIPASEOrder Info: [id number] - MG Performed By: #### L 501.6710, L100.0100, L3410.9992, L101.9900 #### [facility] [address] [place], [place], [address] Urea nitrogen [Mass/Vol] 21 mg/dL High 4-19 [facility] Comment on above: Order Comment: Order Date: 09/25/24Order Info: [id number] - CMPOrder Info: [id number] - LIPASEOrder Info: [id number] - MG Performed By: #### L 501.6710, L100.0100, L3410.9992, L101.9900 #### [facility] [address] [place], [place], [id number] Elastase.pancreatic (Stl) [M ass/Mass]Ordered By: Lenin Hidalgo on 09-25-2024 Stool Pancreatic Elastase 49 Low >200 [facility] Comment on above: Result Units: ug Angy st./g Severe Pancreatic Insufficiency: <100 Moderate Pancreatic Insufficiency: 100 - 200 Normal: >200Performed at: - [facility] [id number] Director: Eduard Linares MD, Phone: [phone] GFR/1.73 sq M.predicted paul g non-blacks MDRD (S/P/Bld) [Vol rate/Area]Ordered By: Lenin Hidalgo on 09-25-2024 Estimated GFR (MDRD) Non-Af Amer 49 Low >60 [facility] Comment on above: mL/min/1.73m2 CKD-EP I Creatinine Equation (2020) Glomerular filtration rate ( GFR) estimation/1.73 sq m using serum, plasma, or whole bOrdered By: Lenin Hidalgo on 09-25-2024 GFR/1.73 sq M.predicted among non-blacks MDRD (S/P/Bld) [Vol rate/Area] 49 mL/min/{1.73_m2} Low >60 [facility] Comment on above: mL/min/1.73m2 CKD-EP I Creatinine Equation (2020) Laboratory - Chemistry and C hemistry - challengeOrdered By: Lenin Hidalgo on 09-25-2024 AST [Catalytic activity/Vol] 18 U/L <38 [facility] Lipaseon 09-25-2024 Lipase [Catalytic activity/Vol] 23 U/L Normal 13-75 [facility] Comment on above: Order Comment: Order Date: 09/25/24Order Info: [id number] - CMPOrder Info: [id number] - LIPASEOrder Info: [id number] - MG Result Comment: To tesfaye note: LIPASE revised reference range effective 22. New Lipase methodology. Expected to produce lower values than the previous assay method. NEW Reference Range: 13 - 75 U/L Performed By: #### L 501.6710, L100.0100, L3410.9992, L101.9900 #### [facility] [address] [place], [place], [id number] Lipase measurementOrdered By : Lenin Hidalgo on 09-25-2024 Lipase [Catalytic activity/Vol] 23 U/L 13-75 [facility] Comment on above: Please note:LIPASE r evised reference range effective 22. New Lipase methodology. Expected to produce lower values than the previous assay method. NEW Reference Range: 13 - 75 U/L Magnesiumon 09-25-2024 Magnesium [Mass/Vol] 2.0 mg/dL Normal 1.5-2.2 [facility] Comment on above: Order Comment: Order Date: 09/25/24Order Info: [id number] - CMPOrder Info: 0-3 - LIPASEOrder Info: [id number] - MG Performed By: #### L 501.6710, L100.0100, L3410.9992, L101.9900 #### [facility] [address] [place], [address] Magnesium (Unsp spec) [Mass/ Vol]Ordered By: Lenin Hidalgo on 09-25-2024 Magnesium [Mass/Vol] 2.0 mg/dL 1.5-2.2 [facility] Magnesium measurement (mass/ volume)Ordered By: Lenin Hidalgo on 09-25-2024 Magnesium (Unsp spec) [Mass/Vol] 2.0 mg/dL 1.5-2.2 [facility] Potassium (Unsp spec) [Mass/ Vol]Ordered By: Lenin Hidalgo on 09-25-2024 Potassium [Moles/Vol] 5.1 mmol/L 3.3-5.1 [facility] Potassium measurement (mass/ volume)Ordered By: Lenin Hidalgo on 09-25-2024 Potassium (Unsp spec) [Mass/Vol] 5.1 mmol/L 3.3-5.1 [facility] Serum creatinine measurement (mass/volume)Ordered By: Lenin Hidalgo on 09-25-2024 Creatinine [Mass/Vol] 1.49 mg/dL High 0.70-1.20 [facility] Serum globulin measurementOr dered By: Lenin Hidalgo on 09-25-2024 Globulin (S) [Mass/Vol] 3.3 g/dL 2.2-4.2 [facility] Serum glucose measurement (m ass/volume)Ordered By: Lenin Hidalgo on 09-25-2024 Glucose [Mass/Vol] 110 mg/dL High 70-99 [facility] Serum or plasma alanine pringle otransferase (ALT) measurementOrdered By: Lenin Hidalgo on 09-25-2024 ALT [Catalytic activity/Vol] 17 U/L <47 [facility] Serum or plasma albumin kay urement (mass/volume)Ordered By: Lenin Hidalgo on 09-25-2024 Albumin [Mass/Vol] 4.5 g/dL 3.4-4.8 [facility] Serum or plasma albumin/glob ulin mass ratioOrdered By: Lenin Hidalgo on 09-25-2024 Albumin/Globulin [Mass ratio] 1.4 {ratio} 0.9-2.4 [facility] Serum or plasma alkaline ranjana sphatase measurementOrdered By: Lenin Hidalgo on 09-25-2024 ALP [Catalytic activity/Vol] 57 U/L 40-129 [facility] Serum or plasma calcium kay urement (mass/volume)Ordered By: Lenin Hidalgo on 09-25-2024 Calcium [Mass/Vol] 10.0 mg/dL 7.6-11.0 [facility] Serum or plasma urea nitroge n measurement (mass/volume)Ordered By: Lenin Hidalgo on 03-31-2025 Urea nitrogen [Mass/Vol] 21 mg/dL High 4-19 [facility] Sodium levelOrdered By: Lenin Hidalgo on 09-25-2024 Sodium [Moles/Vol] 130 mmol/L Low 133-145 [facility] Stool pancreatic elastase me asurement (mass/mass)Ordered By: Lenin Hidalgo on 09-25-2024 Elastase.pancreatic (Stl) [Mass/Mass] 49 Low >200 [facility] Comment on above: Result Units: ug Angy st./g Severe Pancreatic Insufficiency: <100 Moderate Pancreatic Insufficiency: 100 - 200 Normal: >200Performed at: [facility] [address] [id number] Director: Eduard Linares MD, Phone: [phone] Total proteinOrdered By: Selma Hidalgo on 09-25-2024 Protein [Mass/Vol] 7.7 g/dL 5.9-8.4 [facility] L3410.9998on 09-24-2024 [facility] Misc. COMMENT Normal . [facility] Comment on above: Order Comment: [id number] 4STOOL CULTURE RF Result Comment: Test Ordered: [id number] Stool Culture Salmonella/Shigella Screen Note: Final report Reference Range: . Result 1 Comment CB Reference Range: . No Salmonella or Shigella recovered. Campylobacter Culture Note: CB Final report Reference Range: . Result 1 Comment CB Reference Range: . No Campylobacter species isolated. E coli Shiga Toxin EIA Negative CB Reference Range: Negative Performed at: - [facility] [id number] Ma[place] Supervisor: Bonifacio De Jesus PhD, Phone: [phone] Performed By: #### L 501.4074, L100.0100, L3570.6947, L101.6200 #### [facility] [address] [place], [address] Absolute neutrophil countOrd ered By: Red Garcia on 09-19-2024 Neutrophils (Bld) [#/Vol] 5.4 10*3/uL 2.0-7.7 [facility] Anion gap in Serum or Plasma Ordered By: Rde Garcia on 09-19-2024 Anion gap [Moles/Vol] 11 mmol/L 5-15 [facility] BUN/creatinine ratioOrdered By: Red Garcia on 09-19-2024 Urea nitrogen/Creatinine [Mass ratio] 15.7 mg/mg 10- [facility] Basophil percentageOrdered B y: Red Garcia on 09-19-2024 Basophils/100 WBC (Bld) 0.5 % 0-1 [facility] Bilirubin, totalOrdered By: Red Garcia on 09-19-2024 Bilirubin [Mass/Vol] 0.46 mg/dL 0.00-1.30 [facility] C. difficile DNA ZAMZAM+probe Q l (Unsp spec)Ordered By: Red Garcia on 09-19-2024 Clostridioides difficile (PCR) [facility] CBC W/Diff, Automatedon 08-27 Absolute Lymph 1.13 X10 3/uL Normal 0.83-4.51 [facility] Comment on above: Performed By: #### L 501.6710, L100.0100, L3410.9992, L101.9900 #### [facility] [address] [place], [address] Absolute Neut 5.4 X10 3/uL Normal 2.0-7.7 [facility] Comment on above: Performed By: #### L 501.6710, L100.0100, L3410.9992, L101.9900 #### [facility] [address] [place], [address] Basophils/100 WBC (Bld) 0.5 % Normal 0-1 [facility] Comment on above: Performed By: #### L 501.6710, L100.0100, L3410.9992, L101.9900 #### [facility] [address] [place], [address] Eosinophils/100 WBC (Bld) 1.8 % Normal 0-5 [facility] Comment on above: Performed By: #### L 501.6710, L100.0100, L3410.9992, L101.9900 #### [facility] [address] [place], [address] Erythrocyte distribution width (RBC) [Ratio] 12.4 % Normal 11.6-14.6 [facility] Comment on above: Performed By: #### L 501.6710, L100.0100, L3410.9992, L101.9900 #### [facility] [address] [place], [address] Hematocrit (Bld) [Volume fraction] 40.8 % Normal 40-54 [facility] Comment on above: Performed By: #### L 501.6710, L100.0100, L3410.9992, L101.9900 #### [facility] [address] [place], [address] Hemoglobin (Bld) [Mass/Vol] 13.7 g/dL Normal 13.0-16.5 [facility] Comment on above: Performed By: #### L 501.6710, L100.0100, L3410.9992, L101.9900 #### [facility] [address] [place], [address] IG% 0.400 Normal 0.0-0.9 [facility] Comment on above: Result Comment: IG% - Immature Granulocytes (promyelocytes, myelocytes and metamyelocytes) > 1% indicates that a LEFT SHIFT is Present. Performed By: #### L 501.6710, L100.0100, L3410.9992, L101.9900 #### [facility] [address] [place], [address] Lymphocytes/100 WBC (Bld) 15.4 % Low 19-41 [facility] Comment on above: Performed By: #### L 501.6710, L100.0100, L3410.9992, L101.9900 #### [facility] [address] [place], [address] MCH (RBC) [Entitic mass] 32.3 pg High 27.0-32.0 [facility] Comment on above: Performed By: #### L 501.6710, L100.0100, L3410.9992, L101.9900 #### [facility] [address] [place], [address] MCHC (RBC) [Mass/Vol] 33.6 g/dL Normal 32-36 [facility] Comment on above: Performed By: #### L 501.6710, L100.0100, L3410.9992, L101.9900 #### [facility] [address] [place], [address] MCV (RBC) [Entitic vol] 96.2 fL High 80-94 [facility] Comment on above: Performed By: #### L 501.6710, L100.0100, L3410.9992, L101.9900 #### [facility] [address] [place], [address] Monocytes/100 WBC (Bld) 7.9 % Normal 0-10 [facility] Comment on above: Performed By: #### L 501.6710, L100.0100, L3410.9992, L101.9900 #### [facility] [address] [place], [address] Neutrophils/100 WBC (Bld) 74.0 % High 47-70 [facility] Comment on above: Performed By: #### L 501.6710, L100.0100, L3410.9992, L101.9900 #### [facility] [address] [place], [address] Nucleated RBC (Bld) [#/Vol] 0 10*3/uL Normal 0-5 [facility] Comment on above: Performed By: #### L 501.6710, L100.0100, L3410.9992, L101.9900 #### [facility] [address] [place], [address] Platelet mean volume (Bld) [Entitic vol] 8.5 fL Normal 6.2-12.0 [facility] Comment on above: Performed By: #### L 501.6710, L100.0100, L3410.9992, L101.9900 #### [facility] [address] [place], [address] Platelets (Bld) [#/Vol] 343 10*3/uL Normal 150-450 [facility] Comment on above: Performed By: #### L 501.6710, L100.0100, L3410.9992, L101.9900 #### [facility] [address] [place], [address] RBC (Bld) [#/Vol] 4.24 10*6/uL Low 4.6-6.2 [facility] Comment on above: Performed By: #### L 501.6710, L100.0100, L3410.9992, L101.9900 #### [facility] [address] [place], [address] RDW SD 43.8 fl Normal 35.1-43.9 [facility] Comment on above: Performed By: #### L 501.6710, L100.0100, L3410.9992, L101.9900 #### [facility] [address] [place], [address] WBC (Bld) [#/Vol] 7.3 10*3/uL Normal 4.4-11.0 [facility] Comment on above: Performed By: #### L 501.6710, L100.0100, L3410.9992, L101.9900 #### [facility] [address] [place], [address] CDIFF (PCR)on 09-19-2024 CDIFF Pending [phone] NAP1-B1 Presumptive Negative *for epidemiolologic???use C. Diff PCR Negative- No toxigenic C. Diff Detected Normal [facility] Comment on above: Performed By: #### L 501.6710, L100.0100, L3410.9992, L101.9900 #### [facility] [address] [place], [address] Carbon dioxide, total [Moles /volume] in Central venous bloodOrdered By: Red Garcia on 09-19-2024 CO2 [Moles/Vol] 24.3 mmol/L 21.0-32.0 [facility] Chloride assayOrdered By: Era Garcia on 09-19-2024 Chloride [Moles/Vol] 95 mmol/L Low 98-108 [facility] Comprehensive Metabolic Prof ilon 09-19-2024 Albumin [Mass/Vol] 4.4 g/dL Normal 3.4-4.8 [facility] Comment on above: Performed By: #### L 501.6710, L100.0100, L3410.9992, L101.9900 #### [facility] [address] [place], [address] Albumin/Globulin [Mass ratio] 1.4 {ratio} Normal 0.9-2.4 [facility] Comment on above: Performed By: #### L 501.6710, L100.0100, L3410.9992, L101.9900 #### [facility] [address] [place], [address] ALK PHOS 56 U/L Normal 40-129 [facility] Comment on above: Performed By: #### L 501.6710, L100.0100, L3410.9992, L101.9900 #### [facility] [address] [place], [address] ALT [Catalytic activity/Vol] 19 U/L Normal <=46 [facility] Comment on above: Performed By: #### L 501.6710, L100.0100, L3410.9992, L101.9900 #### [facility] [address] [place], [address] AST [Catalytic activity/Vol] 20 U/L Normal <=37 [facility] Comment on above: Performed By: #### L 501.6710, L100.0100, L3410.9992, L101.9900 #### [facility] [address] [place], [address] Bilirubin [Mass/Vol] 0.46 mg/dL Normal 0.00-1.30 [facility] Comment on above: Performed By: #### L 501.6710, L100.0100, L3410.9992, L101.9900 #### [facility] [address] [place], [address] BUN/CRE 15.7 RATIO Normal 10-20 [facility] Comment on above: Performed By: #### L 501.6710, L100.0100, L3410.9992, L101.9900 #### [facility] [address] [place], [address] Calcium [Mass/Vol] 10.0 mg/dL Normal 7.6-11.0 [facility] Comment on above: Performed By: #### L 501.6710, L100.0100, L3410.9992, L101.9900 #### [facility] [address] [place], [address] Chloride [Moles/Vol] 95 mmol/L Low 98-108 [facility] Comment on above: Performed By: #### L 501.6710, L100.0100, L3410.9992, L101.9900 #### [facility] [address] [place], [address] CO2 [Moles/Vol] 24.3 mmol/L Normal 21.0-32.0 [facility] Comment on above: Performed By: #### L 501.6710, L100.0100, L3410.9992, L101.9900 #### [facility] [address] [place], [address] Creatinine [Mass/Vol] 1.22 mg/dL High 0.70-1.20 [facility] Comment on above: Performed By: #### L 501.6710, L100.0100, L3410.9992, L101.9900 #### [facility] [address] [place], [address] GAP 11 Normal 5-15 [facility] Comment on above: Performed By: #### L 501.6710, L100.0100, L3410.9992, L101.9900 #### [facility] [address] [place], [address] GFR/1.73 sq M.predicted among non-blacks MDRD (S/P/Bld) [Vol rate/Area] 63 mL/min/{1.73_m2} Normal >60 [facility] Comment on above: Result Comment: mL/m in/1.73m2 CKD-EPI Creatinine Equation (2020) Performed By: #### L 501.6710, L100.0100, L3410.9992, L101.9900 #### [facility] [address] [place], [address] Globulin (S) [Mass/Vol] 3.2 g/dL Normal 2.2-4.2 [facility] Comment on above: Performed By: #### L 501.6710, L100.0100, L3410.9992, L101.9900 #### [facility] [address] [place], [address] Glucose [Mass/Vol] 127 mg/dL High 70-99 [facility] Comment on above: Performed By: #### L 501.6710, L100.0100, L3410.9992, L101.9900 #### [facility] [address] [place], [address] Potassium [Moles/Vol] 4.7 mmol/L Normal 3.3-5.1 [facility] Comment on above: Performed By: #### L 501.6710, L100.0100, L3410.9992, L101.9900 #### [facility] [address] [place], [address] Sodium [Moles/Vol] 131 mmol/L Low 133-145 [facility] Comment on above: Performed By: #### L 501.6710, L100.0100, L3410.9992, L101.9900 #### [facility] [address] [place], [address] T PROT 7.6 g/dL Normal 5.9-8.4 [facility] Comment on above: Performed By: #### L 501.6710, L100.0100, L3410.9992, L101.9900 #### [facility] [address] [place], [address] Urea nitrogen [Mass/Vol] 19 mg/dL Normal 4-19 [facility] Comment on above: Performed By: #### L 501.6710, L100.0100, L3410.9992, L101.9900 #### [facility] [address] [place], [address] Eosinophil percentageOrdered By: Red Garcia on 09-19-2024 Eosinophils/100 WBC (Bld) 1.8 % 0-5 [facility] Erythrocyte distribution wid th ratioOrdered By: Red Garcia on 09-19-2024 Erythrocyte distribution width (RBC) [Ratio] 12.4 % 11.6-14.6 [facility] Erythrocyte distribution wid th standard deviationOrdered By: Red Garcia on 09-19-2024 Erythrocyte distribution width (RBC) [Entitic vol] 43.8 fL 35.1-43.9 [facility] GFR/1.73 sq M.predicted paul g non-blacks MDRD (S/P/Bld) [Vol rate/Area]Ordered By: Red Garcia on 09-19-2024 Estimated GFR (MDRD) Non-Af Amer 63 >60 [facility] Comment on above: mL/min/1.73m2 CKD-EP I Creatinine Equation (2020) Hematocrit Auto (Bld) [Volum e fraction]Ordered By: Red Garcia on 09-19-2024 Hematocrit (Bld) [Volume fraction] 40.8 % 40-54 [facility] Hemoglobin measurementOrdere d By: Red Garcia on 09-19-2024 Hemoglobin (Bld) [Mass/Vol] 13.7 g/dL 13.0-16.5 [facility] Immature granulocytes/100 WB C Auto (Bld)Ordered By: Red Garcia on 09-19-2024 Immature granulocytes/100 WBC (Bld) 0.400 % 0.0-0.9 [facility] Comment on above: IG% - Immature Granu locytes (promyelocytes, myelocytes and metamyelocytes) > 1% indicates that a LEFT SHIFT is Present. Laboratory - Chemistry and C hemistry - challengeOrdered By: Red Garcia on 09-19-2024 AST [Catalytic activity/Vol] 20 U/L <38 [facility] Lymphocytes Auto (Unsp spec) [#/Vol]Ordered By: Red Garcia on 09-19-2024 Lymphocytes (Bld) [#/Vol] 1.13 10*3/uL 0.83-4.51 [facility] Lymphocytes/100 WBC Auto (Un sp spec)Ordered By: Red Garcia on 09-19-2024 Lymphocytes/100 WBC (Bld) 15.4 % Low 19-41 [facility] MCV (mean corpuscular volume ) determinationOrdered By: Red Garcia on 09-19-2024 MCV (RBC) [Entitic vol] 96.2 fL High 80-94 [facility] Mean corpuscular hemoglobin (MCH) determinationOrdered By: Red Garcia on 09-19-2024 MCH (RBC) [Entitic mass] 32.3 pg High 27.0-32.0 [facility] Mean corpuscular hemoglobin concentration (MCHC) determinationOrdered By: Red Garcia on 09-19-2024 MCHC (RBC) [Mass/Vol] 33.6 g/dL 32-36 [facility] Mean platelet volume determi nationOrdered By: Red Garcia on 09-19-2024 Platelet mean volume (Bld) [Entitic vol] 8.5 fL 6.2-12.0 [facility] Monocyte percentageOrdered B y: Red Garcia on 09-19-2024 Monocytes/100 WBC (Bld) 7.9 % 0-10 [facility] Neutrophil percentageOrdered By: Red Garcia on 09-19-2024 Neutrophils/100 WBC (Bld) 74.0 % High 47-70 [facility] Nucleated red blood cell per centageOrdered By: Red Garcia on 09-19-2024 Nucleated RBC/100 WBC (Bld) [Ratio] 0 % 0-5 [facility] Platelet countOrdered By: Era Garcia on 09-19-2024 Platelets (Bld) [#/Vol] 343 10*3/uL 150-450 [facility] Potassium (Unsp spec) [Mass/ Vol]Ordered By: Red Garcia on 09-19-2024 Potassium [Moles/Vol] 4.7 mmol/L 3.3-5.1 [facility] RBC Auto (Bld) [#/Vol]Ordere d By: Red Garcia on 09-19-2024 RBC (Bld) [#/Vol] 4.24 10*6/uL Low 4.6-6.2 [facility] Serum creatinine measurement (mass/volume)Ordered By: Red Garcia on 09-19-2024 Creatinine [Mass/Vol] 1.22 mg/dL High 0.70-1.20 [facility] Serum globulin measurementOr dered By: Red Garcia on 09-19-2024 Globulin (S) [Mass/Vol] 3.2 g/dL 2.2-4.2 [facility] Serum glucose measurement (m ass/volume)Ordered By: Red Garcia on 09-19-2024 Glucose [Mass/Vol] 127 mg/dL High 70-99 [facility] Serum or plasma alanine pringle otransferase (ALT) measurementOrdered By: Red Garcia on 09-19-2024 ALT [Catalytic activity/Vol] 19 U/L <47 [facility] Serum or plasma albumin kay urement (mass/volume)Ordered By: Red Garcia on 09-19-2024 Albumin [Mass/Vol] 4.4 g/dL 3.4-4.8 [facility] Serum or plasma albumin/glob ulin mass ratioOrdered By: Red Garcia on 09-19-2024 Albumin/Globulin [Mass ratio] 1.4 {ratio} 0.9-2.4 [facility] Serum or plasma alkaline ranjana sphatase measurementOrdered By: Red Garcia on 09-19-2024 ALP [Catalytic activity/Vol] 56 U/L 40-129 [facility] Serum or plasma calcium kay urement (mass/volume)Ordered By: Red Garcia on 09-19-2024 Calcium [Mass/Vol] 10.0 mg/dL 7.6-11.0 [facility] Serum or plasma urea nitroge n measurement (mass/volume)Ordered By: Red Garcia on 09-19-2024 Urea nitrogen [Mass/Vol] 19 mg/dL 4-19 [facility] Sodium levelOrdered By: Red Garcia on 09-19-2024 Sodium [Moles/Vol] 131 mmol/L Low 133-145 [facility] Total proteinOrdered By: Marilu Garcia on 09-19-2024 Protein [Mass/Vol] 7.6 g/dL 5.9-8.4 [facility] White blood cell (WBC) count Ordered By: Red Garcia on 09-19-2024 WBC (Bld) [#/Vol] 7.3 10*3/uL 4.4-11.0 [facility] CTA Chest W/WO Contraston CTA Chest W/WO Contrast [facility] [address] [place], [place] [id number] CTA Chest W/WO Contrast MR#: [id number] Acct: [id number] Name: OSMAN PADGETT Rep #: [id number] : 1950 M 74 From: Fredrick Meidna MD PCP: Dr. Lenin Hidalgo MD Status: REG CLI Study: CTA Chest W/WO Contrast Date of Exam: 07/28/24 Exam# [id number] Ordering Dr: Trenton Gerard MD PROCEDURE: CTA [...] use of iterative reconstruction technique). Reading Location: [facility] CC: Dr. Trenton Gerard MD; Dr. Lenin Hidalgo MD Donkey Doctor: Signed Normal [facility] Absolute neutrophil countOrd ered By: Lenin Hidalgo on 07-17-2024 Neutrophils (Bld) [#/Vol] 4.5 10*3/uL 2.0-7.7 [facility] Albumin to globulin ratioOrd ered By: Lenin Hidalgo on 07-17-2024 Albumin/Globulin [Mass ratio] 1.0 {ratio} 0.9-2.4 [facility] Basophil percentageOrdered B y: Lenin Hidalgo on 07-17-2024 Basophils/100 WBC (Bld) 0.9 % 0-1 [facility] Bilirubin, totalOrdered By: Lenin Hidalgo on 07-17-2024 Bilirubin [Mass/Vol] 0.40 mg/dL 0.20-1.00 [facility] Comment on above: For patients on eltr ombopag therapy, use of Dimension [place] TBIL is not recommended. Blood urea nitrogen (BUN)/cr eatinine ratioOrdered By: Lenin Hidalgo on 07-17-2024 Urea nitrogen/Creatinine [Mass ratio] 16.7 mg/mg 04-16 [facility] CBC W/Diff, Automatedon 06-29 Absolute Lymph 1.22 X10 3/uL Normal 0.83-4.51 [facility] Comment on above: Order Comment: Order Date: 07/17/24Order Info: 0184-1 - CBCD Performed By: #### L 501.6710, L100.0100, L3410.9992, L101.9900 #### [facility] [address] [place], [address] Absolute Neut 4.5 X10 3/uL Normal 2.0-7.7 [facility] Comment on above: Order Comment: Order Date: 07/17/24Order Info: 0184-1 - CBCD Performed By: #### L 501.6710, L100.0100, L3410.9992, L101.9900 #### [facility] [address] [place], [address] Basophils/100 WBC (Bld) 0.9 % Normal 0-1 [facility] Comment on above: Order Comment: Order Date: 07/17/24Order Info: 0184-1 - CBCD Performed By: #### L 501.6710, L100.0100, L3410.9992, L101.9900 #### [facility] [address] [place], [address] Eosinophils/100 WBC (Bld) 3.6 % Normal 0-5 [facility] Comment on above: Order Comment: Order Date: 07/17/24Order Info: 0184-1 - CBCD Performed By: #### L 501.6710, L100.0100, L3410.9992, L101.9900 #### [facility] [address] [place], [address] Erythrocyte distribution width (RBC) [Ratio] 12.2 % Normal 11.6-14.6 [facility] Comment on above: Order Comment: Order Date: 07/17/24Order Info: 0184-1 - CBCD Performed By: #### L 501.6710, L100.0100, L3410.9992, L101.9900 #### [facility] [address] [place], [address] Hematocrit (Bld) [Volume fraction] 36.0 % Low 40-54 [facility] Comment on above: Order Comment: Order Date: 07/17/24Order Info: 0184-1 - CBCD Performed By: #### L 501.6710, L100.0100, L3410.9992, L101.9900 #### [facility] [address] [place], [address] Hemoglobin (Bld) [Mass/Vol] 11.9 g/dL Low 13.0-16.5 [facility] Comment on above: Order Comment: Order Date: 07/17/24Order Info: 0184-1 - CBCD Performed By: #### L 501.6710, L100.0100, L3410.9992, L101.9900 #### [facility] [address] [place], [address] IG% 0.500 Normal 0.0-0.9 [facility] Comment on above: Order Comment: Order Date: 07/17/24Order Info: 0184-1 - CBCD Result Comment: IG% - Immature Granulocytes (promyelocytes, myelocytes and metamyelocytes) > 1% indicates that a LEFT SHIFT is Present. Performed By: #### L 501.6710, L100.0100, L3410.9992, L101.9900 #### [facility] [address] [place], [address] Lymphocytes/100 WBC (Bld) 18.4 % Low 19-41 [facility] Comment on above: Order Comment: Order Date: 07/17/24Order Info: 0184-1 - CBCD Performed By: #### L 501.6710, L100.0100, L3410.9992, L101.9900 #### [facility] [address] [place], [address] MCH (RBC) [Entitic mass] 31.2 pg Normal 27.0-32.0 [facility] Comment on above: Order Comment: Order Date: 07/17/24Order Info: 0184-1 - CBCD Performed By: #### L 501.6710, L100.0100, L3410.9992, L101.9900 #### [facility] [address] [place], [address] MCHC (RBC) [Mass/Vol] 33.1 g/dL Normal 32-36 [facility] Comment on above: Order Comment: Order Date: 07/17/24Order Info: 0184-1 - CBCD Performed By: #### L 501.6710, L100.0100, L3410.9992, L101.9900 #### [facility] [address] [place], [address] MCV (RBC) [Entitic vol] 94.5 fL High 80-94 [facility] Comment on above: Order Comment: Order Date: 07/17/24Order Info: 0184-1 - CBCD Performed By: #### L 501.6710, L100.0100, L3410.9992, L101.9900 #### [facility] [address] [place], [address] Monocytes/100 WBC (Bld) 8.2 % Normal 0-10 [facility] Comment on above: Order Comment: Order Date: 07/17/24Order Info: 0184-1 - CBCD Performed By: #### L 501.6710, L100.0100, L3410.9992, L101.9900 #### [facility] [address] [place], [address] Neutrophils/100 WBC (Bld) 68.4 % Normal 47-70 [facility] Comment on above: Order Comment: Order Date: 07/17/24Order Info: 0184-1 - CBCD Performed By: #### L 501.6710, L100.0100, L3410.9992, L101.9900 #### [facility] [address] [place], [address] Nucleated RBC (Bld) [#/Vol] 0 10*3/uL Normal 0-5 [facility] Comment on above: Order Comment: Order Date: 07/17/24Order Info: 0184- - CBCD Performed By: #### L 501.6710, L100.0100, L3410.9992, L101.9900 #### [facility] [address] [place], [address] Platelet mean volume (Bld) [Entitic vol] 8.5 fL Normal 6.2-12.0 [facility] Comment on above: Order Comment: Order Date: 07/17/24Order Info: 0184- - CBCD Performed By: #### L 501.6710, L100.0100, L3410.9992, L101.9900 #### [facility] [address] [place], [address] Platelets (Bld) [#/Vol] 304 10*3/uL Normal 150-450 [facility] Comment on above: Order Comment: Order Date: 07/17/24Order Info: 0184-1 - CBCD Performed By: #### L 501.6710, L100.0100, L3410.9992, L101.9900 #### [facility] [address] [place], [address] RBC (Bld) [#/Vol] 3.81 10*6/uL Low 4.6-6.2 [facility] Comment on above: Order Comment: Order Date: 07/17/24Order Info: 0184-1 - CBCD Performed By: #### L 501.6710, L100.0100, L3410.9992, L101.9900 #### [facility] [address] [place], [address] RDW SD 42.3 fl Normal 35.1-43.9 [facility] Comment on above: Order Comment: Order Date: 07/17/24Order Info: 0184-1 - CBCD Performed By: #### L 501.6710, L100.0100, L3410.9992, L101.9900 #### [facility] [address] [place], [address] WBC (Bld) [#/Vol] 6.6 10*3/uL Normal 4.4-11.0 [facility] Comment on above: Order Comment: Order Date: 07/17/24Order Info: 0184-1 - CBCD Performed By: #### L 501.6710, L100.0100, L3410.9992, L101.9900 #### [facility] [address] [place], [address] Carbon dioxide measurementOr dered By: Lenin Hidalgo on 07-17-2024 CO2 [Moles/Vol] 25.0 mmol/L 21.0-32.0 [facility] Chloride measurementOrdered By: Lenin Hidalgo on 07-17-2024 Chloride [Moles/Vol] 98 mmol/L 98-107 [facility] Comprehensive Metabolic Prof ilon 07-17-2024 Albumin [Mass/Vol] 4.0 g/dL Normal 3.2-5.0 [facility] Comment on above: Order Comment: Order Date: 07/17/24Order Info: 0786-1 - CMP Performed By: #### L 501.6710, L100.0100, L3410.9992, L101.9900 #### [facility] [address] [place], [address] Albumin/Globulin [Mass ratio] 1.0 {ratio} Normal 0.9-2.4 [facility] Comment on above: Order Comment: Order Date: 07/17/24Order Info: 0786-1 - CMP Performed By: #### L 501.6710, L100.0100, L3410.9992, L101.9900 #### [facility] [address] [place], [address] ALK P 53 U/L Normal 45-117 [facility] Comment on above: Order Comment: Order Date: 07/17/24Order Info: 0786-1 - CMP Performed By: #### L 501.6710, L100.0100, L3410.9992, L101.9900 #### [facility] [address] [place], [address] ALT [Catalytic activity/Vol] 21 U/L Normal 16-61 [facility] Comment on above: Order Comment: Order Date: 07/17/24Order Info: 0786-1 - CMP Performed By: #### L 501.6710, L100.0100, L3410.9992, L101.9900 #### [facility] [address] [place], [address] AST [Catalytic activity/Vol] 12 U/L Low 15-37 [facility] Comment on above: Order Comment: Order Date: 07/17/24Order Info: 0786-1 - CMP Performed By: #### L 501.6710, L100.0100, L3410.9992, L101.9900 #### [facility] [address] [place], [address] Bilirubin [Mass/Vol] 0.40 mg/dL Normal 0.20-1.00 [facility] Comment on above: Order Comment: Order Date: 07/17/24Order Info: 0786-1 - CMP Result Comment: For patients on eltrombopag therapy, use of Dimension [place] TBIL is not recommended. Performed By: #### L 501.6710, L100.0100, L3410.9992, L101.9900 #### [facility] [address] [place], [address] BUN/CRE 16.7 RATIO Normal 10-20 [facility] Comment on above: Order Comment: Order Date: 07/17/24Order Info: 0786-1 - CMP Performed By: #### L 501.6710, L100.0100, L3410.9992, L101.9900 #### [facility] [address] [place], [address] CA,Total 9.8 mg/dL Normal 8.5-10.1 [facility] Comment on above: Order Comment: Order Date: 07/17/24Order Info: 0786-1 - CMP Performed By: #### L 501.6710, L100.0100, L3410.9992, L101.9900 #### [facility] [address] [place], [address] Chloride [Moles/Vol] 98 mmol/L Normal 98-107 [facility] Comment on above: Order Comment: Order Date: 07/17/24Order Info: 0786-1 - CMP Performed By: #### L 501.6710, L100.0100, L3410.9992, L101.9900 #### [facility] [address] [place], [address] CO2 [Moles/Vol] 25.0 mmol/L Normal 21.0-32.0 [facility] Comment on above: Order Comment: Order Date: 07/17/24Order Info: 0786-1 - CMP Performed By: #### L 501.6710, L100.0100, L3410.9992, L101.9900 #### [facility] [address] [place], [address] Creatinine [Mass/Vol] 1.50 mg/dL High 0.70-1.30 [facility] Comment on above: Order Comment: Order Date: 07/17/24Order Info: 0786-1 - CMP Result Comment: The validity of the calculated GFR GFRAA in patients over 70 years has not been determined. Clinical correlation is essential. Performed By: #### L 501.6710, L100.0100, L3410.9992, L101.9900 #### [facility] [address] [place], [address] EST GFR - AA 59 mL/min Low >60 [facility] Comment on above: Order Comment: Order Date: 07/17/24Order Info: 0786-1 - CMP Result Comment: Afri can Faroese GFR Calc Performed By: #### L 501.6710, L100.0100, L3410.9992, L101.9900 #### [facility] [address] [place], [address] GAP 9 Normal 5-15 [facility] Comment on above: Order Comment: Order Date: 07/17/24Order Info: 0786-1 - CMP Performed By: #### L 501.6710, L100.0100, L3410.9992, L101.9900 #### [facility] [address] [place], [address] GFR/1.73 sq M.predicted among non-blacks MDRD (S/P/Bld) [Vol rate/Area] 49 mL/min/{1.73_m2} Low >60 [facility] Comment on above: Order Comment: Order Date: 07/17/24Order Info: 0786-1 - CMP Result Comment: Non- GFR Calc Performed By: #### L 501.6710, L100.0100, L3410.9992, L101.9900 #### [facility] [address] [place], [address] Globulin (S) [Mass/Vol] 3.9 g/dL Normal 2.2-4.2 [facility] Comment on above: Order Comment: Order Date: 07/17/24Order Info: 0786-1 - CMP Performed By: #### L 501.6710, L100.0100, L3410.9992, L101.9900 #### [facility] [address] [place], [address] Glucose [Mass/Vol] 130 mg/dL High 74-106 [facility] Comment on above: Order Comment: Order Date: 07/17/24Order Info: 0786-1 - CMP Result Comment: Fast ing Glucose result greater than or equal to 126 mg/dL suggests DIABETES MELLITUS per A.D.A. criteria. Performed By: #### L 501.6710, L100.0100, L3410.9992, L101.9900 #### [facility] [address] [place], [address] Potassium [Moles/Vol] 4.6 mmol/L Normal 3.5-5.1 [facility] Comment on above: Order Comment: Order Date: 07/17/24Order Info: 0786-1 - CMP Performed By: #### L 501.6710, L100.0100, L3410.9992, L101.9900 #### [facility] [address] [place], [address] Sodium [Moles/Vol] 132 mmol/L Low 136-145 [facility] Comment on above: Order Comment: Order Date: 07/17/24Order Info: 0786-1 - CMP Performed By: #### L 501.6710, L100.0100, L3410.9992, L101.9900 #### [facility] [address] [place], [address] T PROT 7.9 g/dL Normal 6.4-8.2 [facility] Comment on above: Order Comment: Order Date: 07/17/24Order Info: 0786-1 - CMP Performed By: #### L 501.6710, L100.0100, L3410.9992, L101.9900 #### [facility] [address] [place], [place], [address] Urea nitrogen [Mass/Vol] 25 mg/dL High 7-18 [facility] Comment on above: Order Comment: Order Date: 07/17/24Order Info: 0786-1 - CMP Performed By: #### L 501.6710, L100.0100, L3410.9992, L101.9900 #### [facility] [address] [place], [place], [address] Eosinophil percentageOrdered By: Lenin Hidalgo on 07-17-2024 Eosinophils/100 WBC (Bld) 3.6 % 0-5 [facility] Erythrocyte distribution wid th ratioOrdered By: Lenin Hidalgo on 07-17-2024 Erythrocyte distribution width (RBC) [Ratio] 12.2 % 11.6-14.6 [facility] Erythrocyte distribution wid th standard deviationOrdered By: Lenin Hidalgo on 07-17-2024 Erythrocyte distribution width (RBC) [Entitic vol] 42.3 fL 35.1-43.9 [facility] Estimated glomerular filtrat ion rate (GFR) AmericanOrdered By: Lenin Hidalgo on 07-17-2024 Estimated GFR (MDRD) Amer 59 mL/min Low >60 [facility] Comment on above: GFR Calc Glomerular filtration rate ( GFR) estimationOrdered By: Lenin Hidalgo on 07-17-2024 Estimated GFR (MDRD) Non-Af Amer 49 mL/min Low >60 [facility] Comment on above: Non- GFR Calc Glucose measurementOrdered B y: Lenin Hidalgo on 07-17-2024 Glucose [Mass/Vol] 130 mg/dL High 74-106 [facility] Comment on above: Fasting Glucose resu lt greater than or equal to 126 mg/dL suggests DIABETES MELLITUS per A.D.A. criteria. Hematocrit Auto (Bld) [Volum e fraction]Ordered By: Lenin Hidalgo on 01-20-2025 Hematocrit (Bld) [Volume fraction] 36.0 % Low 40-54 [facility] Hemoglobin measurementOrdere d By: Lenin Hidalgo on 07-17-2024 Hemoglobin (Bld) [Mass/Vol] 11.9 g/dL Low 13.0-16.5 [facility] Immature granulocytes/100 WB C Auto (Bld)Ordered By: Lenin Hidalgo on 07-17-2024 Immature granulocytes/100 WBC (Bld) 0.500 % 0.0-0.9 [facility] Comment on above: IG% - Immature Granu locytes (promyelocytes, myelocytes and metamyelocytes) > 1% indicates that a LEFT SHIFT is Present. Laboratory - Chemistry and C hemistry - challengeOrdered By: Lenin Hidalgo on 07-17-2024 AST [Catalytic activity/Vol] 12 U/L Low 15-37 [facility] Lymphocytes Auto (Unsp spec) [#/Vol]Ordered By: Lenin Hidalgo on 07-17-2024 Lymphocytes (Bld) [#/Vol] 1.22 10*3/uL 0.83-4.51 [facility] Lymphocytes/100 WBC Auto (Un sp spec)Ordered By: Lenin Hidalgo on 07-17-2024 Lymphocytes/100 WBC (Bld) 18.4 % Low 19-41 [facility] MCV (mean corpuscular volume ) determinationOrdered By: Lenin Hidalgo on 07-17-2024 MCV (RBC) [Entitic vol] 94.5 fL High 80-94 [facility] Mean corpuscular hemoglobin (MCH) determinationOrdered By: Lenin Hidalgo on 07-17-2024 MCH (RBC) [Entitic mass] 31.2 pg 27.0-32.0 [facility] Mean corpuscular hemoglobin concentration (MCHC) determinationOrdered By: Lenin Hidalgo on 07-17-2024 MCHC (RBC) [Mass/Vol] 33.1 g/dL 32-36 [facility] Mean platelet volume determi nationOrdered By: Lenin Hidalgo on 07-17-2024 Platelet mean volume (Bld) [Entitic vol] 8.5 fL 6.2-12.0 [facility] Monocyte percentageOrdered B y: Lenin Hidalgo on 07-17-2024 Monocytes/100 WBC (Bld) 8.2 % 0-10 [facility] Neutrophil percentageOrdered By: Lenin Hidalgo on 07-17-2024 Neutrophils/100 WBC (Bld) 68.4 % 47-70 [facility] Nucleated red blood cell per centageOrdered By: Lenin Hidalgo on 07-17-2024 Nucleated RBC/100 WBC (Bld) [Ratio] 0 % 0-5 [facility] Platelet countOrdered By: Curtis Hidalgo on 07-17-2024 Platelets (Bld) [#/Vol] 304 10*3/uL 150-450 [facility] Potassium measurementOrdered By: Lenin Hidalgo on 07-17-2024 Potassium [Moles/Vol] 4.6 mmol/L 3.5-5.1 [facility] RBC Auto (Bld) [#/Vol]Ordere d By: Lenin Hidalgo on 07-17-2024 RBC (Bld) [#/Vol] 3.81 10*6/uL Low 4.6-6.2 [facility] Serum anion gap measurementO rdered By: Lenin Hidalgo on 07-17-2024 Anion gap [Moles/Vol] 9 mmol/L 5-15 [facility] Serum globulin measurementOr dered By: Lenin Hidalgo on 07-17-2024 Globulin (S) [Mass/Vol] 3.9 g/dL 2.2-4.2 [facility] Serum or plasma alanine pringle otransferase (ALT) measurementOrdered By: Lenin Hidalgo on 07-17-2024 ALT [Catalytic activity/Vol] 21 U/L 16-61 [facility] Serum or plasma albumin kay urement (mass/volume)Ordered By: Lenin Hidalgo on 07-17-2024 Albumin [Mass/Vol] 4.0 g/dL 3.2-5.0 [facility] Serum or plasma alkaline ranjana sphatase measurementOrdered By: Lenin Hidalgo on 07-17-2024 ALP [Catalytic activity/Vol] 53 U/L 45-117 [facility] Serum or plasma calcium kay urement (mass/volume)Ordered By: Lenin Hidalgo on 07-17-2024 Calcium [Mass/Vol] 9.8 mg/dL 8.5-10.1 [facility] Serum or plasma creatinine m easurement (mass/volume)Ordered By: Lenin Hidalgo on 07-17-2024 Creatinine [Mass/Vol] 1.50 mg/dL High 0.70-1.30 [facility] Comment on above: The validity of the calculated GFR & GFRAA in patients over 70 years has not been determined. Clinical correlation is essential. Serum or plasma urea nitroge n measurement (mass/volume)Ordered By: Lenin Hidalgo on 07-17-2024 Urea nitrogen [Mass/Vol] 25 mg/dL High 7-18 [facility] Sodium levelOrdered By: Lenin Hidalgo on 07-17-2024 Sodium [Moles/Vol] 132 mmol/L Low 136-145 [facility] Total proteinOrdered By: Selma Hidalgo on 07-17-2024 Protein [Mass/Vol] 7.9 g/dL 6.4-8.2 [facility] White blood cell (WBC) count Ordered By: Lenin Hidalgo on 07-17-2024 WBC (Bld) [#/Vol] 6.6 10*3/uL 4.4-11.0 [facility] Cardiology Visit Reporton Cardiology Visit Report [facility] [address] [place] [address] OFFICE VISIT Date of Service: 07/07/24 MR#: [id number] Acct: [id number] Name: OSMAN PADGETT Rep #: [id number] : 1950 Provider: Dr. 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 Normal [facility] Protein Electroph, Son 06-19 Albumin [Mass/Vol] 3.7 g/dL Normal 2.9-4.4 [facility] Comment on above: Order Comment: Order Date: 06/16/24Order Info: 0060-1 - PROEL Performed By: #### L 501.6710, L100.0100, L3410.9992, L101.9900 #### [facility] [address] [place], [address] Albumin/Globulin [Mass ratio] 1.1 {ratio} Normal 0.7-1.7 [facility] Comment on above: Order Comment: Order Date: 06/16/24Order Info: 0060-1 - PROEL Performed By: #### L 501.6710, L100.0100, L3410.9992, L101.9900 #### [facility] [address] [place], [address] ALPHA-1 GLOBUL 0.2 g/dL Normal 0.0-0.4 [facility] Comment on above: Order Comment: Order Date: 06/16/24Order Info: 0060-1 - PROEL Performed By: #### L 501.6710, L100.0100, L3410.9992, L101.9900 #### [facility] [address] [place], [address] ALPHA-2 GLOBUL 0.9 g/dL Normal 0.4-1.0 [facility] Comment on above: Order Comment: Order Date: 06/16/24Order Info: 0060-1 - PROEL Performed By: #### L 501.6710, L100.0100, L3410.9992, L101.9900 #### [facility] [address] [place], [address] BETA GLOBULIN 1.2 g/dL Normal 0.7-1.3 [facility] Comment on above: Order Comment: Order Date: 06/16/24Order Info: 0060-1 - PROEL Performed By: #### L 501.6710, L100.0100, L3410.9992, L101.9900 #### [facility] [address] [place], [address] GAMMA GLOBULIN 1.1 g/dL Normal 0.4-1.8 [facility] Comment on above: Order Comment: Order Date: 06/16/24Order Info: 0060-1 - PROEL Performed By: #### L 501.6710, L100.0100, L3410.9992, L101.9900 #### [facility] [address] [place], [place], [address] Globulin (S) [Mass/Vol] 3.4 g/dL Normal 2.2-3.9 [facility] Comment on above: Order Comment: Order Date: 06/16/24Order Info: 0060-1 - PROEL Performed By: #### L 501.6710, L100.0100, L3410.9992, L101.9900 #### [facility] [address] [place], [place], [id number] INTERPRETATION Comment Normal . [facility] Comment on above: Order Comment: Order Date: 06/16/24Order Info: 0060-1 - PROEL Result Comment: Prot ein electrophoresis scan will follow via computer, mail, or superintendent track delivery. Performed By: #### L 501.6710, L100.0100, L3410.9992, L101.9900 #### [facility] [address] [place], [place], [id number] M-SPIKE Not Observed Normal Not Observed [facility] Comment on above: Order Comment: Order Date: 06/16/24Order Info: 0060-1 - PROEL Performed By: #### L 501.6710, L100.0100, L3410.9992, L101.9900 #### [facility] [address] [place], [address] NOTE: Comment Normal . [facility] Comment on above: Order Comment: Order Date: 06/16/24Order Info: 0060-1 - PROEL Result Comment: The SPE pattern appears unremarkable. Evidence of monoclonal protein is not apparent. Performed at: [address] [place], [place] [id number] Maid Supervisor: Bonifacio De Jesus PhD, Phone: [phone] Performed By: #### L 501.6710, L100.0100, L3410.9992, L101.9900 #### [facility] [address] [place], [address] Protein [Mass/Vol] 7.1 g/dL Normal 6.0-8.5 [facility] Comment on above: Order Comment: Order Date: 06/16/24Order Info: 0060-1 - PROEL Performed By: #### L 501.6710, L100.0100, L3620.9992, L101.9900 #### [facility] [address] [place], [address] Addendum DocumentOrdered By: Lenin Hidalgo on 06-16-2024 Protein Electrophoresis Note Comment . [facility] Comment on above: The SPE pattern appe ars unremarkable. Evidence ofmonoclonal protein is not apparent.Performed at: - [facility] [id number] Director: Bonifacio De Jesus PhD, Phone: [phone] Albumin Elph [Mass/Vol]Order ed By: Lenin Hidalgo on 06-16-2024 Albumin [Mass/Vol] 3.7 g/dL 2.9-4.4 [facility] Albumin/Globulin Elph [Mass ratio]Ordered By: Lenin Hidalgo on 06-16-2024 Albumin/Globulin (PEP) 1.1 0.7-1.7 [facility] Sdfpz-7-gjgdzxin measurement by protein electrophoresisOrdered By: Lenin Hidalgo on 06-16-2024 Liqoi-9-Wgpkhgqjf 0.2 g/dL 0.0-0.4 [facility] Lhwdz-2-rpxfxrmf measurement by protein electrophoresisOrdered By: Lenin Hidalgo on 06-16-2024 Biufr-8-Tbamigqpb 0.9 g/dL 0.4-1.0 [facility] Beta globulin Elph [Mass/Vol ]Ordered By: Lenin Hidalgo on 06-16-2024 Beta Globulins 1.2 g/dL 0.7-1.3 [facility] Gamma globulin measurement b y protein electrophoresisOrdered By: Lenin Hidalgo on 06-16-2024 Gamma Globulins 1.1 g/dL 0.4-1.8 [facility] Globulin (S) [Mass/Vol]Order ed By: Lenin Hidalgo on 06-16-2024 Globulin (PEP) 3.4 g/dL 2.2-3.9 [facility] PSA,Total - Annual Screenon 06-16-2024 PSA,TOT SCREEN 1.19 ng/mL Normal 0.00-4.00 [facility] Comment on above: Order Comment: Order Date: 06/16/24Order Info: 2857-1 - PSA Result Comment: This test was performed using the TPSA assay method for the [employer] chemistry system. Values obtained with different assay methods cannot be used interchangably. When changing PSA assays in the course of monitoring a patient, additional sequential testing should be carried out to confirm baseline values. Performed By: #### L 501.6710, L100.0100, L3410.9992, L101.9900 #### [facility] [place], [address] Protein Fractions Elph [Inte rp]Ordered By: Lenin Hidalgo on 06-16-2024 Protein Electrophoresis Interpret Comment . [facility] Comment on above: Protein electrophore sis scan will follow via computer,mail, or superintendent track delivery. Protein.monoclonal Elph [Mas s/Vol]Ordered By: Lenin Hidalgo on 06-16-2024 Protein Electrophoresis M-Betito Not Observed g/dL Not Observed [facility] Screening prostate specific antigen (PSA) measurementOrdered By: Lenin Hidalgo on 06-16-2024 Prostate Specific Antigen Screen 1.19 ng/mL 0.00-4.00 [facility] Comment on above: This test was perfor med using the TPSA assay method for [employer] chemistry system. Values obtained with differentassay methods cannot be used interchangably.When changing PSA assays in the course of monitoring apatient, additional sequential testing should be carriedout to confirm baseline values. Serum or plasma protein kay urement (mass/volume)Ordered By: Lenin Hidalgo on 06-16-2024 Protein [Mass/Vol] 7.1 g/dL 6.0-8.5 [facility] Lower Ext No Joint W/WO Cont on 06-12-2024 Lower Ext No Joint W/WO Cont [facility] [address] [place] [address] Lower Ext No Joint W/WO Cont MR#: [id number] Acct: [id number] Name: OSMAN PADGETT Rep #: [id number] : 1950 M 74 From: Bolivar holder MD PCP: Dr. Lenin Hidalgo MD Status: REG CLI Study: Lower Ext No Joint W/WO Cont Date of Exam: Exam# [id number] Ordering Dr: Delphine Neri Leslie [id number] STUDY: MRI LEFT MIDFOOT WITH/WITHOUT CONTRAST REASON [...] 13:13 EST Reading Location ID and State: [address] [place] [address] , Service support , CC: DPLeslie Neri; Dr. Lenin Hidalgo MD Donkey Doctor: Signed Normal [facility] Basic Metabolic Profile (BMP )on 06-05-2024 BUN/CRE 18.8 RATIO Normal - [facility] Comment on above: Order Comment: Inter face Comments: standing order Order Date: 03/28/24 Order Info: 0667-1 - BMP Annual exam Order Date: 04/11/24 Order Info: 03005-6 - LIPID Comments: annual annual Performed By: #### L 500.2500 #### [facility] [address] [place], [place], [id number] CA,Total 9.8 mg/dL Normal 8.5-10.1 [facility] Comment on above: Order Comment: Inter face Comments: standing order Order Date: 03/28/24 Order Info: 06- - BMP Annual exam Order Date: 04/11/24 Order Info: 96331-6 - LIPID Comments: annual annual Performed By: #### L 500.2500 #### [facility] [address] [place], [place], [address] Chloride [Moles/Vol] 101 mmol/L Normal 98-107 [facility] Comment on above: Order Comment: Inter face Comments: standing order Order Date: 03/28/24 Order Info: 06- - BMP Annual exam Order Date: 04/11/24 Order Info: 23558-9 - LIPID Comments: annual annual Performed By: #### L 500.2500 #### [facility] [address] [place], [place], [address] CO2 [Moles/Vol] 28.0 mmol/L Normal 21.0-32.0 [facility] Comment on above: Order Comment: Inter face Comments: standing order Order Date: 03/28/24 Order Info: 06- - BMP Annual exam Order Date: 04/11/24 Order Info: 14274-2 - LIPID Comments: annual annual Performed By: #### L 500.2500 #### [facility] [address] [place], [place], [address] Creatinine [Mass/Vol] 1.44 mg/dL High 0.70-1.30 [facility] Comment on above: Order Comment: Inter face Comments: standing order Order Date: 03/28/24 Order Info: 0667- - BMP Annual exam Order Date: 04/11/24 Order Info: 51286-9 - LIPID Comments: annual annual Result Comment: The validity of the calculated GFR GFRAA in patients over 70 years has not been determined. Clinical correlation is essential. Performed By: #### L 500.2500 #### [facility] [address] [place], [place], [address] EST GFR - AA 62 mL/min Normal >60 [facility] Comment on above: Order Comment: Inter face Comments: standing order Order Date: 03/28/24 Order Info: 06- - BMP Annual exam Order Date: 04/11/24 Order Info: 04616-5 - LIPID Comments: annual annual Result Comment: Afri can Faroese GFR Calc Performed By: #### L 500.2500 #### [facility] [address] [place], [place], [address] GAP 4 Low 5-15 [facility] Comment on above: Order Comment: Inter face Comments: standing order Order Date: 03/28/24 Order Info: 666-06 - BMP Annual exam Order Date: 04/11/24 Order Info: [id number] - LIPID Comments: annual annual Performed By: #### L 500.2500 #### [facility] [address] [place], [address] GFR/1.73 sq M.predicted among non-blacks MDRD (S/P/Bld) [Vol rate/Area] 51 mL/min/{1.73_m2} Low >60 [facility] Comment on above: Order Comment: Inter face Comments: standing order Order Date: 03/28/24 Order Info: 06- - BMP Annual exam Order Date: 04/11/24 Order Info: 04295-2 - LIPID Comments: annual annual Result Comment: Non- GFR Calc Performed By: #### L 500.2500 #### [facility] [address] [place], [address] Glucose [Mass/Vol] 169 mg/dL High 74-106 [facility] Comment on above: Order Comment: Inter face Comments: standing order Order Date: 03/28/24 Order Info: 0667- - BMP Annual exam Order Date: 04/11/24 Order Info: 13430-7 - LIPID Comments: annual annual Result Comment: Fast ing Glucose result greater than or equal to 126 mg/dL suggests DIABETES MELLITUS per A.D.A. criteria. Performed By: #### L 500.2500 #### [facility] [address] [place], [place], [address] Potassium [Moles/Vol] 4.8 mmol/L Normal 3.5-5.1 [facility] Comment on above: Order Comment: Inter face Comments: standing order Order Date: 03/28/24 Order Info: 0667-1 - BMP Annual exam Order Date: 04/11/24 Order Info: 14469-2 - LIPID Comments: annual annual Performed By: #### L 500.2500 #### [facility] [address] [place], [place], [address] Sodium [Moles/Vol] 133 mmol/L Low 136-145 [facility] Comment on above: Order Comment: Inter face Comments: standing order Order Date: 03/28/24 Order Info: 0667-1 - BMP Annual exam Order Date: 04/11/24 Order Info: 09248-4 - LIPID Comments: annual annual Performed By: #### L 500.2500 #### [facility] [address] [place], [address] Urea nitrogen [Mass/Vol] 27 mg/dL High 7-18 [facility] Comment on above: Order Comment: Inter face Comments: standing order Order Date: 03/28/24 Order Info: 0667-1 - BMP Annual exam Order Date: 04/11/24 Order Info: 09135-4 - LIPID Comments: annual annual Performed By: #### L 500.2500 #### [facility] [address] [facility] [place], [address] Blood urea nitrogen (BUN)/cr eatinine ratioOrdered By: Lenin Hidalgo on 06-05-2024 Urea nitrogen/Creatinine [Mass ratio] 18.8 mg/mg 10-20 [facility] Carbon dioxide measurementOr dered By: Lenin Hidalgo on 06-05-2024 CO2 [Moles/Vol] 28.0 mmol/L 21.0-32.0 [facility] Chloride measurementOrdered By: Lenin Hidalgo on 06-05-2024 Chloride [Moles/Vol] 101 mmol/L 98-107 [facility] Estimated glomerular filtrat ion rate (GFR) AmericanOrdered By: Lenin Hidalgo on 06-05-2024 Estimated GFR (MDRD) Amer 62 mL/min >60 [facility] Comment on above: GFR Calc Glomerular filtration rate ( GFR) estimationOrdered By: Lenin Hidalgo on 06-05-2024 Estimated GFR (MDRD) Non-Af Amer 51 mL/min Low >60 [facility] Comment on above: Non- GFR Calc Glucose measurementOrdered B y: Lenin Hidalgo on 06-05-2024 Glucose [Mass/Vol] 169 mg/dL High 74-106 [facility] Comment on above: Fasting Glucose resu lt greater than or equal to 126 mg/dL suggests DIABETES MELLITUS per A.D.A. criteria. High density lipoprotein (HD L) measurementOrdered By: Lenin Hidalgo on 06-05-2024 Cholesterol in HDL [Mass/Vol] 59 mg/dL >40 [facility] Comment on above: The drugs N-Acetylcy steine and Metamizole may falsely depress this assay. Reference Range HDL <40 mg/dL Low HDL Cholesterol HDL >or= 60 mg/dL High HDL Cholesterol Lipid Profileon 06-05-2024 Cholesterol [Mass/Vol] 213 mg/dL High 200 [facility] Comment on above: Order Comment: [id number] 5 BARTONELLA HENSELAE SERUM RMT Result Comment: <200 mg/dL Desirable 200-240 mg/dL Borderline >240 mg/dL High Risk Performed By: #### L 501.6710, L100.0100, L3410.9992, L101.9900 #### [facility] [address] [place], [address] Cholesterol in HDL [Mass/Vol] 59 mg/dL Normal [facility] Comment on above: Order Comment: [id number] 5 BARTONELLA HENSELAE SERUM RMT Result Comment: The drugs N-Acetylcysteine and Metamizole may falsely depress this assay. Reference Range HDL <40 mg/dL Low HDL Cholesterol HDL >or= 60 mg/dL High HDL Cholesterol Performed By: #### L 501.6710, L100.0100, L3410.9992, L101.9900 #### [facility] [address] [place], [address] Cholesterol in LDL [Mass/Vol] 117 mg/dL Normal 0-130 [facility] Comment on above: Order Comment: [id number] 5 BARTONELLA HENSELAE SERUM RMT Performed By: #### L 501.6710, L100.0100, L3410.9992, L101.9900 #### [facility] [address] [place], [address] Cholesterol in VLDL [Mass/Vol] 37 mg/dL Normal 5-40 [facility] Comment on above: Order Comment: [id number] 5 BARTONELLA HENSELAE SERUM RMT Performed By: #### L 501.6710, L100.0100, L3410.9992, L101.9900 #### [facility] [address] [place], [address] Triglyceride [Mass/Vol] 187 mg/dL Normal [facility] Comment on above: Order Comment: [id number] 5 BARTONELLA HENSELAE SERUM RMT Result Comment: The drugs N-Acetylcysteine and Metamizole may falsely depress this assay. Serum Triglycerides Reference Interval Normal <150 mg/dL Borderline high 150 - 199 mg/dL High 200 - 499 mg/dL Very High > or = 500 mg/dL Performed By: #### L 501.6710, L100.0100, L3410.9992, L101.9900 #### [facility] [address] [place], [address] Low density lipoprotein (LDL ) cholesterol measurementOrdered By: Lenin Hidalgo on 06-05-2024 Cholesterol in LDL [Mass/Vol] 117 mg/dL 0-130 [facility] Potassium measurementOrdered By: Lenin Hidalgo on 06-05-2024 Potassium [Moles/Vol] 4.8 mmol/L 3.5-5.1 [facility] Serum anion gap measurementO rdered By: Lenin Hidalgo on 06-05-2024 Anion gap [Moles/Vol] 4 mmol/L Low 5-15 [facility] Serum or plasma calcium kay urement (mass/volume)Ordered By: Lenin Hidalgo on 06-05-2024 Calcium [Mass/Vol] 9.8 mg/dL 8.5-10.1 [facility] Serum or plasma cholesterol measurement (mass/volume)Ordered By: Lenin Hidalgo on 06-05-2024 Cholesterol [Mass/Vol] 213 mg/dL High <200 [facility] Comment on above: <200 mg/dL Desirable 200-240 mg/dL Borderline >240 mg/dL High Risk Serum or plasma creatinine m easurement (mass/volume)Ordered By: Lenin Hidalgo on 06-05-2024 Creatinine [Mass/Vol] 1.44 mg/dL High 0.70-1.30 [facility] Comment on above: The validity of the calculated GFR & GFRAA in patients over 70 years has not been determined. Clinical correlation is essential. Serum or plasma urea nitroge n measurement (mass/volume)Ordered By: Lenin Hidalgo on 06-05-2024 Urea nitrogen [Mass/Vol] 27 mg/dL High 7-18 [facility] Sodium levelOrdered By: Lenin Hidalgo on 06-05-2024 Sodium [Moles/Vol] 133 mmol/L Low 136-145 [facility] Triglycerides measurementOrd ered By: Lenin Hidalgo on 06-05-2024 Triglyceride [Mass/Vol] 187 mg/dL <199 [facility] Comment on above: The drugs N-Acetylcy steine and Metamizole may falsely depress this assay.Serum Triglycerides Reference Interval Normal <150 mg/dL Borderline high 150 - 199 mg/dL High 200 - 499 mg/dL Very High > or = 500 mg/dL Very low density lipoprotein (VLDL) cholesterol measurementOrdered By: Lenin Hidalgo on 06-05-2024 VLDL Cholesterol 37 mg/dL 5-40 [facility] Echo Completeon 05-24-2024 Echo Complete [facility] [address] [place] [address] Echo Complete 05/24/24 1056 MR#: [id number] Acct: [id number] Name: OSMAN PADGETT Rep #: [id number] : 1950 74 From: Eugenia Pastrana MD Attending Dr: Dr. Lenin Hidalgo MD Status: REG CL I Ordering Dr: Lenin Hidalgo MD Date: 05/24/24 Location: [facility] Sex: M C Admitted: Reason For Study: [...] MD Date Dictated: 05/24/24 1056 Date Transcribed: 05/24/24 1310 Donkey Doctor: Signed Normal [facility] Basic Metabolic Profile (BMP )on 05-22-2024 BUN/CRE 21.8 RATIO High 10-20 [facility] Comment on above: Order Comment: Order Date: 04/14/24 Order Info: 0667-1 - BMP Performed By: #### L 500.2500 #### [facility] [address] [place], [address] CA,Total 9.2 mg/dL Normal 8.5-10.1 [facility] Comment on above: Order Comment: Order Date: 04/14/24 Order Info: 0667-1 - BMP Performed By: #### L 500.2500 #### [facility] [address] [place], [address] Chloride [Moles/Vol] 101 mmol/L Normal 98-107 [facility] Comment on above: Order Comment: Order Date: 04/14/24 Order Info: 0667-1 - BMP Performed By: #### L 500.2500 #### [facility] [address] [place], [address] CO2 [Moles/Vol] 26.0 mmol/L Normal 21.0-32.0 [facility] Comment on above: Order Comment: Order Date: 04/14/24 Order Info: 0667-1 - BMP Performed By: #### L 500.2500 #### [facility] [address] [place], [address] Creatinine [Mass/Vol] 1.47 mg/dL High 0.70-1.30 [facility] Comment on above: Order Comment: Order Date: 04/14/24 Order Info: 0667- - BMP Result Comment: The validity of the calculated GFR GFRAA in patients over 70 years has not been determined. Clinical correlation is essential. Performed By: #### L 500.2500 #### [facility] [address] [place], [address] EST GFR - AA 60 mL/min Normal >60 [facility] Comment on above: Order Comment: Order Date: 04/14/24 Order Info: 06 - BMP Result Comment: Afri can Faroese GFR Calc Performed By: #### L 500.2500 #### [facility] [address] [place], [address] GAP 6 Normal 5-15 [facility] Comment on above: Order Comment: Order Date: 04/14/24 Order Info: 06 - BMP Performed By: #### L 500.2500 #### [facility] [address] [place], [address] GFR/1.73 sq M.predicted among non-blacks MDRD (S/P/Bld) [Vol rate/Area] 50 mL/min/{1.73_m2} Low >60 [facility] Comment on above: Order Comment: Order Date: 04/14/24 Order Info: 06 - BMP Result Comment: Non- GFR Calc Performed By: #### L 500.2500 #### [facility] [address] [place], [address] Glucose [Mass/Vol] 218 mg/dL High 74-106 [facility] Comment on above: Order Comment: Order Date: 04/14/24 Order Info: 06 - BMP Result Comment: Gluc ose result greater than or equal to 200 mg/dL suggests DIABETES MELLITUS per A.D.A. criteria. Performed By: #### L 500.2500 #### [facility] [address] [place], [address] Potassium [Moles/Vol] 5.0 mmol/L Normal 3.5-5.1 [facility] Comment on above: Order Comment: Order Date: 04/14/24 Order Info: 666- - BMP Performed By: #### L 500.2500 #### [facility] [address] [place], [address] Sodium [Moles/Vol] 133 mmol/L Low 136-145 [facility] Comment on above: Order Comment: Order Date: 04/14/24 Order Info: 666- - BMP Performed By: #### L 500.2500 #### [facility] [address] [place], [address] Urea nitrogen [Mass/Vol] 32 mg/dL High 7-18 [facility] Comment on above: Order Comment: Order Date: 04/14/24 Order Info: 666-06 - BMP Performed By: #### L 500.2500 #### [facility] [address] [place], [address] Basic Metabolic Profile (BMP )on 05-16-2024 BUN/CRE 20.0 RATIO Normal 10-20 [facility] Comment on above: Order Comment: Order Date: 05/10/24Order Info: 666-06 - BMP Performed By: #### L 501.6710, L100.0100, L3410.9992, L101.9900 #### [facility] [address] [place], [address] CA,Total 9.5 mg/dL Normal 8.5-10.1 [facility] Comment on above: Order Comment: Order Date: 05/10/24Order Info: 666-06 - BMP Performed By: #### L 501.6710, L100.0100, L3410.9992, L101.9900 #### [facility] [address] [place], [address] Chloride [Moles/Vol] 97 mmol/L Low 98-107 [facility] Comment on above: Order Comment: Order Date: 05/10/24Order Info: 666- - BMP Performed By: #### L 501.6710, L100.0100, L3410.9992, L101.9900 #### [facility] [address] [place], [address] CO2 [Moles/Vol] 27.0 mmol/L Normal 21.0-32.0 [facility] Comment on above: Order Comment: Order Date: 05/10/24Order Info: 666-06 - BMP Performed By: #### L 501.6710, L100.0100, L3410.9992, L101.9900 #### [facility] [address] [place], [address] Creatinine [Mass/Vol] 1.50 mg/dL High 0.70-1.30 [facility] Comment on above: Order Comment: Order Date: 05/10/24Order Info: 666-06 - BMP Result Comment: The validity of the calculated GFR GFRAA in patients over 70 years has not been determined. Clinical correlation is essential. Performed By: #### L 501.6710, L100.0100, L3410.9992, L101.9900 #### [facility] [address] [place], [address] EST GFR - AA 59 mL/min Low >60 [facility] Comment on above: Order Comment: Order Date: 05/10/24Order Info: 666-06 - BMP Result Comment: Afri can Faroese GFR Calc Performed By: #### L 501.6710, L100.0100, L3410.9992, L101.9900 #### [facility] [address] [place], [address] GAP 4 Low 5-15 [facility] Comment on above: Order Comment: Order Date: 05/10/24Order Info: 666-06 - BMP Performed By: #### L 501.6710, L100.0100, L3410.9992, L101.9900 #### [facility] [address] [place], [address] GFR/1.73 sq M.predicted among non-blacks MDRD (S/P/Bld) [Vol rate/Area] 49 mL/min/{1.73_m2} Low >60 [facility] Comment on above: Order Comment: Order Date: 05/10/24Order Info: 06 - BMP Result Comment: Non- GFR Calc Performed By: #### L 501.6710, L100.0100, L3410.9992, L101.9900 #### [facility] [address] [place], [address] Glucose [Mass/Vol] 208 mg/dL High 74-106 [facility] Comment on above: Order Comment: Order Date: 05/10/24Order Info: 06 - BMP Result Comment: Gluc ose result greater than or equal to 200 mg/dL suggests DIABETES MELLITUS per A.D.A. criteria. Performed By: #### L 501.6710, L100.0100, L3410.9992, L101.9900 #### [facility] [address] [place], [address] Potassium [Moles/Vol] 4.9 mmol/L Normal 3.5-5.1 [facility] Comment on above: Order Comment: Order Date: 05/10/24Order Info: 0667 - BMP Performed By: #### L 501.6710, L100.0100, L3410.9992, L101.9900 #### [facility] [address] [place], [address] Sodium [Moles/Vol] 128 mmol/L Low 136-145 [facility] Comment on above: Order Comment: Order Date: 05/10/24Order Info: 06 - BMP Performed By: #### L 501.6710, L100.0100, L3410.9992, L101.9900 #### [facility] [address] [place], [address] Urea nitrogen [Mass/Vol] 30 mg/dL High 7-18 [facility] Comment on above: Order Comment: Order Date: 05/10/24Order Info: 0667-1 - BMP Performed By: #### L 501.6710, L100.0100, L3410.9992, L101.9900 #### [facility] [address] [place], [address] CBC W/Diff, Automatedon 11- 2-2023 Absolute Lymph 1.23 X10 3/uL Normal 0.83-4.51 [facility] Comment on above: Order Comment: 5 BARTONELLA HENSELAE SERUM RMT Performed By: #### L 501.6710, L100.0100, L3410.9992, L101.9900 #### [facility] [address] [place], [address] Absolute Neut 4.7 X10 3/uL Normal 2.0-7.7 [facility] Comment on above: Order Comment: 5 BARTONELLA HENSELAE SERUM RMT Performed By: #### L 501.6710, L100.0100, L3410.9992, L101.9900 #### [facility] [address] [place], [address] Basophils/100 WBC (Bld) 0.6 % Normal 0-1 [facility] Comment on above: Order Comment: 5 BARTONELLA HENSELAE SERUM RMT Performed By: #### L 501.6710, L100.0100, L3410.9992, L101.9900 #### [facility] [address] [place], [address] Eosinophils/100 WBC (Bld) 2.9 % Normal 0-5 [facility] Comment on above: Order Comment: 5 BARTONELLA HENSELAE SERUM RMT Performed By: #### L 501.6710, L100.0100, L3410.9992, L101.9900 #### [facility] [address] [place], [address] Erythrocyte distribution width (RBC) [Ratio] 12.5 % Normal 11.6-14.6 [facility] Comment on above: Order Comment: [id number] BARTONELLA HENSELAE SERUM RMT Performed By: #### L 501.6710, L100.0100, L3410.9992, L101.9900 #### [facility] [address] [place], [address] Hematocrit (Bld) [Volume fraction] 35.4 % Low 40-54 [facility] Comment on above: Order Comment: [id number] BARTONELLA HENSELAE SERUM RMT Performed By: #### L 501.6710, L100.0100, L3410.9992, L101.9900 #### [facility] [address] [place], [address] Hemoglobin (Bld) [Mass/Vol] 11.8 g/dL Low 13.0-16.5 [facility] Comment on above: Order Comment: [id number] BARTONELLA HENSELAE SERUM RMT Performed By: #### L 501.6710, L100.0100, L3410.9992, L101.9900 #### [facility] [address] [place], [address] IG% 0.300 Normal 0.0-0.9 [facility] Comment on above: Order Comment: [id number] BARTONELLA HENSELAE SERUM RMT Result Comment: IG% - Immature Granulocytes (promyelocytes, myelocytes and metamyelocytes) > 1% indicates that a LEFT SHIFT is Present. Performed By: #### L 501.6710, L100.0100, L3410.9992, L101.9900 #### [facility] [address] [place], [address] Lymphocytes/100 WBC (Bld) 18.1 % Low 19-41 [facility] Comment on above: Order Comment: [id number] BARTONELLA HENSELAE SERUM RMT Performed By: #### L 501.6710, L100.0100, L3410.9992, L101.9900 #### [facility] [address] [place], [address] MCH (RBC) [Entitic mass] 31.6 pg Normal 27.0-32.0 [facility] Comment on above: Order Comment: [id number] BARTONELLA HENSELAE SERUM RMT Performed By: #### L 501.6710, L100.0100, L3410.9992, L101.9900 #### [facility] [address] [place], [address] MCHC (RBC) [Mass/Vol] 33.3 g/dL Normal 32-36 [facility] Comment on above: Order Comment: [id number] BARTONELLA HENSELAE SERUM RMT Performed By: #### L 501.6710, L100.0100, L3410.9992, L101.9900 #### [facility] [address] [place], [address] MCV (RBC) [Entitic vol] 94.9 fL High 80-94 [facility] Comment on above: Order Comment: [id number] BARTONELLA HENSELAE SERUM RMT Performed By: #### L 501.6710, L100.0100, L3410.9992, L101.9900 #### [facility] [address] [place], [address] Monocytes/100 WBC (Bld) 8.3 % Normal 0-10 [facility] Comment on above: Order Comment: [id number] BARTONELLA HENSELAE SERUM RMT Performed By: #### L 501.6710, L100.0100, L3410.9992, L101.9900 #### [facility] [address] [place], [address] Neutrophils/100 WBC (Bld) 69.8 % Normal 47-70 [facility] Comment on above: Order Comment: [id number] BARTONELLA HENSELAE SERUM RMT Performed By: #### L 501.6710, L100.0100, L3410.9992, L101.9900 #### [facility] [address] [place], [address] Nucleated RBC (Bld) [#/Vol] 0 10*3/uL Normal 0-5 [facility] Comment on above: Order Comment: [id number] BARTONELLA HENSELAE SERUM RMT Performed By: #### L 501.6710, L100.0100, L3410.9992, L101.9900 #### [facility] [address] [place], [address] Platelet mean volume (Bld) [Entitic vol] 8.8 fL Normal 6.2-12.0 [facility] Comment on above: Order Comment: [id number] BARTONELLA HENSELAE SERUM RMT Performed By: #### L 501.6710, L100.0100, L3410.9992, L101.9900 #### [facility] [address] [place], [address] Platelets (Bld) [#/Vol] 311 10*3/uL Normal 150-450 [facility] Comment on above: Order Comment: [id number] BARTONELLA HENSELAE SERUM RMT Performed By: #### L 501.6710, L100.0100, L3410.9992, L101.9900 #### [facility] [address] [place], [address] RBC (Bld) [#/Vol] 3.73 10*6/uL Low 4.6-6.2 [facility] Comment on above: Order Comment: [id number] BARTONELLA HENSELAE SERUM RMT Performed By: #### L 501.6710, L100.0100, L3410.9992, L101.9900 #### [facility] [address] [place], [address] RDW SD 43.3 fl Normal 35.1-43.9 [facility] Comment on above: Order Comment: [id number] BARTONELLA HENSELAE SERUM RMT Performed By: #### L 501.6710, L100.0100, L3410.9992, L101.9900 #### [facility] [address] [place], [address] WBC (Bld) [#/Vol] 6.8 10*3/uL Normal 4.4-11.0 [facility] Comment on above: Order Comment: [id number] BARTONELLA HENSELAE SERUM RMT Performed By: #### L 501.6710, L100.0100, L3410.9992, L101.9900 #### [facility] [address] [place], [address] Comprehensive Metabolic Prof [facility] 05-09-2024 Albumin [Mass/Vol] 3.9 g/dL Normal 3.2-5.0 [facility] Comment on above: Order Comment: [id number] BARTONELLA HENSELAE SERUM RMT Performed By: #### L 501.6710, L100.0100, L3410.9992, L101.9900 #### [facility] [address] [place], [address] Albumin/Globulin [Mass ratio] 1.1 {ratio} Normal 0.9-2.4 [facility] Comment on above: Order Comment: [id number] BARTONELLA HENSELAE SERUM RMT Performed By: #### L 501.6710, L100.0100, L3410.9992, L101.9900 #### [facility] [address] [place], [address] ALK P 53 U/L Normal 45-117 [facility] Comment on above: Order Comment: 5 BARTONELLA HENSELAE SERUM RMT Performed By: #### L 501.6710, L100.0100, L3410.9992, L101.9900 #### [facility] [address] [place], [address] ALT [Catalytic activity/Vol] 25 U/L Normal 16-61 [facility] Comment on above: Order Comment: [id number] BARTONELLA HENSELAE SERUM RMT Performed By: #### L 501.6710, L100.0100, L3410.9992, L101.9900 #### [facility] [address] [place], [address] AST [Catalytic activity/Vol] 13 U/L Low 15-37 [facility] Comment on above: Order Comment: [id number] BARTONELLA HENSELAE SERUM RMT Performed By: #### L 501.6710, L100.0100, L3410.9992, L101.9900 #### [facility] [address] [place], [address] Bilirubin [Mass/Vol] 0.40 mg/dL Normal 0.20-1.00 [facility] Comment on above: Order Comment: [id number] BARTONELLA HENSELAE SERUM RMT Result Comment: For patients on eltrombopag therapy, use of Dimension [place] TBIL is not recommended. Performed By: #### L 501.6710, L100.0100, L3410.9992, L101.9900 #### [facility] [address] [place], [address] BUN/CRE 22.8 RATIO High 10-20 [facility] Comment on above: Order Comment: [id number] BARTONELLA HENSELAE SERUM RMT Performed By: #### L 501.6710, L100.0100, L3410.9992, L101.9900 #### [facility] [address] [place], [address] CA,Total 9.5 mg/dL Normal 8.5-10.1 [facility] Comment on above: Order Comment: [id number] BARTONELLA HENSELAE SERUM RMT Performed By: #### L 501.6710, L100.0100, L3410.9992, L101.9900 #### [facility] [address] [place], [address] Chloride [Moles/Vol] 96 mmol/L Low 98-107 [facility] Comment on above: Order Comment: [id number] BARTONELLA HENSELAE SERUM RMT Performed By: #### L 501.6710, L100.0100, L3410.9992, L101.9900 #### [facility] [address] [place], [address] CO2 [Moles/Vol] 26.0 mmol/L Normal 21.0-32.0 [facility] Comment on above: Order Comment: [id number] BARTONELLA HENSELAE SERUM RMT Performed By: #### L 501.6710, L100.0100, L3410.9992, L101.9900 #### [facility] [address] [place], [address] Creatinine [Mass/Vol] 1.36 mg/dL High 0.70-1.30 [facility] Comment on above: Order Comment: [id number] BARTONELLA HENSELAE SERUM RMT Result Comment: The validity of the calculated GFR GFRAA in patients over 70 years has not been determined. Clinical correlation is essential. Performed By: #### L 501.6710, L100.0100, L3410.9992, L101.9900 #### [facility] [address] [place], [address] EST GFR - AA 66 mL/min Normal >60 [facility] Comment on above: Order Comment: [id number] BARTONELLA HENSELAE SERUM RMT Result Comment: Afri can Faroese GFR Calc Performed By: #### L 501.6710, L100.0100, L3410.9992, L101.9900 #### [facility] [address] [place], [address] GAP 7 Normal 5-15 [facility] Comment on above: Order Comment: [id number] BARTONELLA HENSELAE SERUM RMT Performed By: #### L 501.6710, L100.0100, L3410.9992, L101.9900 #### [facility] [address] [place], [address] GFR/1.73 sq M.predicted among non-blacks MDRD (S/P/Bld) [Vol rate/Area] 55 mL/min/{1.73_m2} Low >60 [facility] Comment on above: Order Comment: [id number] BARTONELLA HENSELAE SERUM RMT Result Comment: Non- GFR Calc Performed By: #### L 501.6710, L100.0100, L3410.9992, L101.9900 #### [facility] [address] [place], [address] Globulin (S) [Mass/Vol] 3.7 g/dL Normal 2.2-4.2 [facility] Comment on above: Order Comment: [id number] BARTONELLA HENSELAE SERUM RMT Performed By: #### L 501.6710, L100.0100, L3410.9992, L101.9900 #### [facility] [address] [place], [address] Glucose [Mass/Vol] 126 mg/dL High 74-106 [facility] Comment on above: Order Comment: [id number] BARTONELLA HENSELAE SERUM RMT Result Comment: Fast ing Glucose result greater than or equal to 126 mg/dL suggests DIABETES MELLITUS per A.D.A. criteria. Performed By: #### L 501.6710, L100.0100, L3410.9992, L101.9900 #### [facility] [address] [place], [address] Potassium [Moles/Vol] 5.1 mmol/L Normal 3.5-5.1 [facility] Comment on above: Order Comment: [id number] BARTONELLA HENSELAE SERUM RMT Performed By: #### L 501.6710, L100.0100, L3410.9992, L101.9900 #### [facility] [address] [place], [address] Sodium [Moles/Vol] 129 mmol/L Low 136-145 [facility] Comment on above: Order Comment: [id number] BARTONELLA HENSELAE SERUM RMT Performed By: #### L 501.6710, L100.0100, L3410.9992, L101.9900 #### [facility] [address] [place], [address] T PROT 7.6 g/dL Normal 6.4-8.2 [facility] Comment on above: Order Comment: [id number] BARTONELLA HENSELAE SERUM RMT Performed By: #### L 501.6710, L100.0100, L3410.9992, L101.9900 #### [facility] [address] [place], [address] Urea nitrogen [Mass/Vol] 31 mg/dL High 7-18 [facility] Comment on above: Order Comment: [id number] BARTONELLA HENSELAE SERUM RMT Performed By: #### L 501.6710, L100.0100, L3410.9992, L101.9900 #### [facility] [address] [place], [address] Magnesiumon 05-09-2024 Magnesium [Mass/Vol] 1.7 mg/dL Normal 1.6-2.6 [facility] Comment on above: Order Comment: [id number] BARTONELLA HENSELAE SERUM RMT Performed By: #### L 501.6710, L100.0100, L3410.9992, L101.9900 #### [facility] [address] [place], [place], [address] Osmolality, Serumon 05-09-20 24 OSMOLALITY,SER 292 mOsm/KG Normal 280-301 [facility] Comment on above: Order Comment: [id number] BARTONELLA HENSELAE SERUM RMT Performed By: #### L 501.6710, L100.0100, L3410.9992, L101.9900 #### [facility] [address] [place], [place], [address] Thyroid Stim Hormone (TSH)on 05-09-2024 TSH 0.453 uIU/mL Normal 0.358-3.74 0 [facility] Comment on above: Order Comment: [id number] BARTONELLA HENSELAE SERUM RMT Performed By: #### L 501.6710, L100.0100, L3410.9992, L101.9900 #### [facility] [address] [place], [place], [address] Absolute lymphocyte countOrd ered By: Fredrick Dorsey on 11-07-2023 Lymphocytes Auto (Unsp spec) [#/Vol] 1.25 10*3/uL 0.83-4.51 [facility] Automated lymphocyte count a s percentage of total leukocytesOrdered By: Fredrick Dorsey on 11-07-2023 Lymphocytes/100 WBC Auto (Unsp spec) 11.4 % 19-41 [facility] Basophil percentageOrdered B y: Fredrick Dorsey on 11-07-2023 Basophil percentage 0 SEEN /hpf 0-5 [facility] Basophils/100 WBC (Bld) 0.6 % 0-1 [facility] Bilirubin [Mass/Vol] 0.50 mg/dL 0.20-1.00 [facility] Comment on above: For patients on eltr ombopag therapy, use of Dimension [place] TBIL is not recommended. Chloride [Moles/Vol] 94 mmol/L 98-107 [facility] Eosinophils/100 WBC (Bld) 1.2 % 0-5 [facility] Glucose [Mass/Vol] 142 mg/dL 74-106 [facility] Comment on above: Fasting Glucose resu lt greater than or equal to 126 mg/dL suggests DIABETES MELLITUS per A.D.A. criteria. Hemoglobin (Bld) [Mass/Vol] 10.7 g/dL 13.0-16.5 [facility] Monocytes/100 WBC (Bld) 7.5 % 0-10 [facility] Neutrophils (Bld) [#/Vol] 8.7 10*3/uL 2.0-7.7 [facility] Neutrophils/100 WBC (Bld) 78.8 % 47-70 [facility] Potassium [Moles/Vol] 4.8 mmol/L 3.5-5.1 [facility] Protein [Mass/Vol] 7.0 g/dL 6.4-8.2 [facility] Sodium [Moles/Vol] 126 mmol/L 136-145 [facility] WBC (Bld) [#/Vol] 11.0 10*3/uL 4.4-11.0 [facility] Bilirubin Test strip Ql (U)O rdered By: Fredrick Dorsey on 11-07-2023 Bilirubin Ql (U) Negative Negative [facility] Determination of erythrocyte mean corpuscular volume (MCV)Ordered By: Fredrick Dorsey on 11-07-2023 MCV (RBC) [Entitic vol] 91.2 fL 80-94 [facility] Erythrocyte distribution wid th ratioOrdered By: Fredrick Dorsey on 11-07-2023 Erythrocyte distribution width (RBC) [Ratio] 11.6 % 11.6-14.6 [facility] Erythrocyte distribution wid th standard deviationOrdered By: Fredrick Dorsey on 11-07-2023 Erythrocyte distribution width (RBC) [Entitic vol] 38.9 fL 35.1-43.9 [facility] Hematocrit Auto (Bld) [Volum e fraction]Ordered By: Fredrick Dorsey on 11-07-2023 Hematocrit (Bld) [Volume fraction] 30.9 % 40-54 [facility] Immature granulocytes/100 WB C Auto (Bld)Ordered By: Fredrick Dorsey on 11-07-2023 Immature granulocytes/100 WBC (Bld) 0.500 % 0.0-0.9 [facility] Comment on above: IG% - Immature Granu locytes (promyelocytes, myelocytes and metamyelocytes) > 1% indicates that a LEFT SHIFT is Present. Ketones Test strip Ql (U)Ord ered By: Fredrick Dorsey on 11-07-2023 Ketones Ql (U) Negative Negative [facility] - Chemistry and C hemistry - challengeOrdered By: Fredrick Dorsey on 11-07-2023 Albumin/Globulin [Mass ratio] 1.2 {ratio} 0.9-2.4 [facility] ALP [Catalytic activity/Vol] 45 U/L 45-117 [facility] ALT [Catalytic activity/Vol] 20 U/L 16-61 [facility] CO2 [Moles/Vol] 23.0 mmol/L 21.0-32.0 [facility] Globulin (S) [Mass/Vol] 3.2 g/dL 2.2-4.2 [facility] Lipase [Catalytic activity/Vol] 30 U/L 13-75 [facility] Comment on above: Please note:LIPASE r evised reference range effective 22. New Lipase methodology. Expected to produce lower values than the previous assay method. NEW Reference Range: 13 - 75 U/L Urea nitrogen/Creatinine [Mass ratio] 21.9 mg/mg 10-20 [facility] - Drug toxicology Ordered By: Fredrick Dorsey on 11-07-2023 Amphetamines Ql (U) Negative <1000 ng/mL [facility] Benzodiazepines Ql (U) Negative < 200 ng/mL [facility] Cannabinoids Screen Ql (U) Positive < 50 ng/mL [facility] Cocaine Ql (U) Negative < 300 ng/mL [facility] Opiates Ql (U) Negative < 300 ng/mL [facility] - Hematology and Cell countsOrdered By: Fredrick Dorsey on 11-07-2023 MCH (RBC) [Entitic mass] 31.6 pg 27.0-32.0 [facility] MCHC (RBC) [Mass/Vol] 34.6 g/dL 32-36 [facility] Nucleated RBC/100 WBC (Bld) [Ratio] 0 % 0-5 [facility] Platelet mean volume (Bld) [Entitic vol] 8.3 fL 6.2-12.0 [facility] Platelets (Bld) [#/Vol] 289 10*3/uL 150-450 [facility] Mucus LM Ql (Urine sed)Order ed By: Fredrick Dorsey on 11-07-2023 Mucus Ql (Urine sed) 0 SEEN /hpf [facility] Nitrite Test strip Ql (U)Ord ered By: Fredrick Dorsey on 11-07-2023 Nitrite Ql (U) Negative Negative [facility] No Panel InformationOrdered By: Fredrick Dorsey on 11-07-2023 MDMA (Ecstasy) Screen Negative < 500 ng/mL [facility] Urine Barbiturates Screen Negative < 200 ng/mL [facility] Urine Drug Screen Comment [facility] Comment on above: CONFIRMATORY TESTING [...] Urine Methadone Screen Negative < 300 ng/mL [facility] Urine RBC 0 SEEN /hpf 0-5 [facility] Estimated Creatinine Clearance Calc 80.51 ml/min [facility] Estimated GFR (MDRD) Amer 89 mL/min >60 [facility] Comment on above: GFR Calc Estimated GFR (MDRD) Non-Af Amer 74 mL/min >60 [facility] Comment on above: Non- GFR Calc Ethyl Alcohol Level < 3.0 mg/dL [facility] Comment on above: The serum:whole bloo d ethanol ratio is approximately 1.14and varies slightly with hematocrit. Medical Alcohol reference interval and critical value innon-tolerant individuals; 50 - 100 Impairment 100 Intoxication 100 - 250 Severe Poisoning 250 - 400 Deep/possible fatal coma Free Triiodothyronine (T3) pg/dL 3.4 pg/mL 2.18-3.98 [facility] Troponin I High Sensitivity 13 pg/mL 3.0-78.0 [facility] Comment on above: Please Note: New Jeni t Units and Gender Specific Reference Ranges. For more information see Policy Stat Procedure [place] High Sensitivity Troponin (TNIH) and attachments. Protein Test strip Ql (U)Ord ered By: Fredrick Dorsey on 11-07-2023 Protein Ql (U) Negative Negative [facility] RBC Auto (Bld) [#/Vol]Ordere d By: Fredrick Dorsey on 11-07-2023 RBC (Bld) [#/Vol] 3.39 10*6/uL 4.6-6.2 [facility] Serum or plasma calcium kay urement (mass/volume)Ordered By: Fredrick Dorsey on 11-07-2023 Calcium [Mass/Vol] 8.9 mg/dL 8.5-10.1 [facility] Serum or plasma creatinine m easurement (mass/volume)Ordered By: Fredrick Dorsey on 11-07-2023 Creatinine [Mass/Vol] 1.05 mg/dL 0.70-1.30 [facility] Comment on above: The validity of the calculated GFR & GFRAA in patients over 70 years has not been determined. Clinical correlation is essential. Serum or plasma thyroid stim ulating hormone (TSH) measurement (units/volume)Ordered By: Fredrick Dorsey on 11-07-2023 TSH Qn 0.26 uIU/mL 0.358-3.74 [facility] Serum or plasma urea nitroge n measurement (mass/volume)Ordered By: Fredrick Dorsey on 11-07-2023 Urea nitrogen [Mass/Vol] 23 mg/dL 7-18 [facility] Squamous epithelial cells de tection in urine sediment by light microscopyOrdered By: Fredrick Dorsey on 11-07-2023 Epithelial cells.squamous LM Ql (Urine sed) 0 SEEN /hpf 0-5 [facility] Thin prep Papanicolaou smear with manual screeningOrdered By: Fredrick Dorsey on 11-07-2023 Thin prep Papanicolaou smear with manual screening 3.8 g/dL 3.2-5.0 [facility] Thin prep Papanicolaou smear with manual screening 16 U/L 15-37 [facility] Thin prep Papanicolaou smear with manual screening 9 5-15 [facility] Thin prep Papanicolaou smear with manual screening 1.01 ng/dL 0.76-1.46 [facility] Urine blood detectionOrdered By: Fredrick Dorsey on 11-07-2023 RBC Ql (U) Negative Negative [facility] Urine clarityOrdered By: Cory Dorsey on 11-07-2023 Clarity (U) Clear Clear [facility] Urine color determinationOrd ered By: Fredrick Dorsey on 11-07-2023 Color (U) Straw Yellow [facility] Urine glucose detectionOrder ed By: Fredrick Dorsey on 11-07-2023 Glucose Ql (U) Normal mg/dl Normal [facility] Urine leukocyte esterase det ection by dipstickOrdered By: Fredrick Dorsey on 11-07-2023 Leukocyte esterase Test strip Ql (U) Negative Negative [facility] Urine pHOrdered By: Fredrick storey on 11-07-2023 pH (U) 7.0 [pH] 5.0 - 8.0 [facility] Urine phencyclidine (PCP) de tectionOrdered By: Fredrick Dorsey on 11-07-2023 Phencyclidine Ql (U) Negative < 25 ng/mL [facility] Urine sediment bacteria coun t by microscopy (number/high power field)Ordered By: Fredrick Dorsey on 11-07-2023 Bacteria LM.HPF (Urine sed) [#/Area] 0 /[HPF] None Seen [facility] Urine specific gravity measu rementOrdered By: Fredrick Dorsey on 11-07-2023 Specific gravity (U) [Rel density] 1.020 1.002-1.03 0 [facility] Urine urobilinogen measureme ntOrdered By: Fredrick Dorsey on 11-07-2023 Urobilinogen Ql (U) Normal mg/dl Normal [facility] Basophil percentageOrdered B y: Noble Figueroa on 11-06-2023 Bilirubin [Mass/Vol] 0.30 mg/dL 0.20-1.00 [facility] Comment on above: For patients on eltr ombopag therapy, use of Dimension [place] TBIL is not recommended. Chloride [Moles/Vol] 97 mmol/L 98-107 [facility] Glucose [Mass/Vol] 248 mg/dL 74-106 [facility] Comment on above: Glucose result great er than or equal to 200 mg/dLsuggests DIABETES MELLITUS per A.D.A. criteria. Hemoglobin (Bld) [Mass/Vol] 11.1 g/dL 13.0-16.5 [facility] Potassium [Moles/Vol] 5.1 mmol/L 3.5-5.1 [facility] Protein [Mass/Vol] 7.2 g/dL 6.4-8.2 [facility] Sodium [Moles/Vol] 128 mmol/L 136-145 [facility] WBC (Bld) [#/Vol] 9.8 10*3/uL 4.4-11.0 [facility] Determination of erythrocyte mean corpuscular volume (MCV)Ordered By: Noble Figueroa on 11-06-2023 MCV (RBC) [Entitic vol] 92.8 fL 80-94 [facility] Erythrocyte distribution wid th ratioOrdered By: Noble Figueroa on 11-06-2023 Erythrocyte distribution width (RBC) [Ratio] 11.9 % 11.6-14.6 [facility] Erythrocyte distribution wid th standard deviationOrdered By: Noble Figueroa on 11-06-2023 Erythrocyte distribution width (RBC) [Entitic vol] 40.7 fL 35.1-43.9 [facility] Hematocrit Auto (Bld) [Volum e fraction]Ordered By: Noble Figueroa on 11-06-2023 Hematocrit (Bld) [Volume fraction] 32.3 % 40-54 [facility] - Chemistry and C hemistry - challengeOrdered By: Noble Figueroa on 11-06-2023 Albumin/Globulin [Mass ratio] 1.1 {ratio} 0.9-2.4 [facility] ALP [Catalytic activity/Vol] 46 U/L 45-117 [facility] ALT [Catalytic activity/Vol] 18 U/L 16-61 [facility] CO2 [Moles/Vol] 24.0 mmol/L 21.0-32.0 [facility] Globulin (S) [Mass/Vol] 3.5 g/dL 2.2-4.2 [facility] Lipase [Catalytic activity/Vol] 39 U/L 13-75 [facility] Comment on above: Please note:LIPASE r evised reference range effective 22. New Lipase methodology. Expected to produce lower values than the previous assay method. NEW Reference Range: 13 - 75 U/L Urea nitrogen/Creatinine [Mass ratio] 21.8 mg/mg 10-20 [facility] - Hematology and Cell countsOrdered By: Noble Figueroa on 11-06-2023 MCH (RBC) [Entitic mass] 31.9 pg 27.0-32.0 [facility] MCHC (RBC) [Mass/Vol] 34.4 g/dL 32-36 [facility] Platelet mean volume (Bld) [Entitic vol] 8.4 fL 6.2-12.0 [facility] Platelets (Bld) [#/Vol] 297 10*3/uL 150-450 [facility] No Panel InformationOrdered By: Noble Figueroa on 11-06-2023 Estimated Creatinine Clearance Calc 51.61 ml/min [facility] Estimated GFR (MDRD) Amer 63 mL/min >60 [facility] Comment on above: GFR Calc Estimated GFR (MDRD) Non-Af Amer 52 mL/min >60 [facility] Comment on above: Non- GFR Calc Troponin I High Sensitivity 9 pg/mL 3.0-78.0 [facility] Comment on above: Please Note: New Jeni t Units and Gender Specific Reference Ranges. For more information see Policy Stat Procedure [place] High Sensitivity Troponin (TNIH) and attachments. RBC Auto (Bld) [#/Vol]Ordere d By: Noble Figueroa on 11-06-2023 RBC (Bld) [#/Vol] 3.48 10*6/uL 4.6-6.2 [facility] Serum or plasma calcium kay urement (mass/volume)Ordered By: Noble Figueroa on 11-06-2023 Calcium [Mass/Vol] 8.9 mg/dL 8.5-10.1 [facility] Serum or plasma creatinine m easurement (mass/volume)Ordered By: Noble Figueroa on 11-06-2023 Creatinine [Mass/Vol] 1.42 mg/dL 0.70-1.30 [facility] Comment on above: The validity of the calculated GFR & GFRAA in patients over 70 years has not been determined. Clinical correlation is essential. Serum or plasma urea nitroge n measurement (mass/volume)Ordered By: Noble Figueroa on 11-06-2023 Urea nitrogen [Mass/Vol] 31 mg/dL 7-18 [facility] Thin prep Papanicolaou smear with manual screeningOrdered By: Noble Figueroa on 11-06-2023 Thin prep Papanicolaou smear with manual screening 3.7 g/dL 3.2-5.0 [facility] Thin prep Papanicolaou smear with manual screening 11 U/L 15-37 [facility] Thin prep Papanicolaou smear with manual screening 7 5-15 [facility] No Panel InformationOrdered By: Miguel Kirby on 11-05-2023 Free Triiodothyronine (T3) pg/dL 3.1 pg/mL 2.18-3.98 [facility] Serum or plasma thyroid stim ulating hormone (TSH) measurement (units/volume)Ordered By: Miguel Kirby on 11-05-2023 TSH Qn 0.34 uIU/mL 0.358-3.74 [facility] Thin prep Papanicolaou smear with manual screeningOrdered By: Miguel Kirby on 11-05-2023 Thin prep Papanicolaou smear with manual screening 0.94 ng/dL 0.76-1.46 [facility] Absolute lymphocyte countOrd ered By: Lenin Hidalgo on 11-01-2023 Lymphocytes Auto (Unsp spec) [#/Vol] 1.24 10*3/uL 0.83-4.51 [facility] Automated lymphocyte count a s percentage of total leukocytesOrdered By: Lenin Hidalgo on 11-01-2023 Lymphocytes/100 WBC Auto (Unsp spec) 21.1 % 19-41 [facility] Basophil percentageOrdered B y: Lenin Hidalgo on 11-01-2023 Basophils/100 WBC (Bld) 0.7 % 0-1 [facility] Bilirubin [Mass/Vol] 0.30 mg/dL 0.20-1.00 [facility] Comment on above: For patients on eltr ombopag therapy, use of Dimension [place] TBIL is not recommended. Chloride [Moles/Vol] 94 mmol/L 98-107 [facility] Cholesterol [Mass/Vol] 161 mg/dL <200 [facility] Comment on above: <200 mg/dL Desirable 200-240 mg/dL Borderline >240 mg/dL High Risk Eosinophils/100 WBC (Bld) 3.6 % 0-5 [facility] Glucose [Mass/Vol] 181 mg/dL 74-106 [facility] Comment on above: Fasting Glucose resu lt greater than or equal to 126 mg/dL suggests DIABETES MELLITUS per A.D.A. criteria. Hemoglobin (Bld) [Mass/Vol] 11.8 g/dL 13.0-16.5 [facility] Monocytes/100 WBC (Bld) 9.0 % 0-10 [facility] Neutrophils (Bld) [#/Vol] 3.8 10*3/uL 2.0-7.7 [facility] Neutrophils/100 WBC (Bld) 64.1 % 47-70 [facility] Potassium [Moles/Vol] 5.0 mmol/L 3.5-5.1 [facility] Protein [Mass/Vol] 7.4 g/dL 6.4-8.2 [facility] Sodium [Moles/Vol] 126 mmol/L 136-145 [facility] Triglyceride [Mass/Vol] 254 mg/dL <199 [facility] Comment on above: The drugs N-Acetylcy steine and Metamizole may falsely depress this assay.Serum Triglycerides Reference Interval Normal <150 mg/dL Borderline high 150 - 199 mg/dL High 200 - 499 mg/dL Very High > or = 500 mg/dL WBC (Bld) [#/Vol] 5.9 10*3/uL 4.4-11.0 [facility] Determination of erythrocyte mean corpuscular volume (MCV)Ordered By: Lenin Hidalgo on 11-01-2023 MCV (RBC) [Entitic vol] 91.8 fL 80-94 [facility] Erythrocyte distribution wid th ratioOrdered By: Lenin Hidalgo on 11-01-2023 Erythrocyte distribution width (RBC) [Ratio] 11.8 % 11.6-14.6 [facility] Erythrocyte distribution wid th standard deviationOrdered By: Lenin Hidalgo on 11-01-2023 Erythrocyte distribution width (RBC) [Entitic vol] 39.8 fL 35.1-43.9 [facility] Hematocrit Auto (Bld) [Volum e fraction]Ordered By: Lenin Hidalgo on 11-01-2023 Hematocrit (Bld) [Volume fraction] 34.5 % 40-54 [facility] Immature granulocytes/100 WB C Auto (Bld)Ordered By: Lenin Hidalgo on 11-01-2023 Immature granulocytes/100 WBC (Bld) 1.500 % 0.0-0.9 [facility] Comment on above: IG% - Immature Granu locytes (promyelocytes, myelocytes and metamyelocytes) > 1% indicates that a LEFT SHIFT is Present. Laboratory - Chemistry and C hemistry - challengeOrdered By: Lenin Hidalgo on 11-01-2023 Albumin/Globulin [Mass ratio] 1.1 {ratio} 0.9-2.4 [facility] ALP [Catalytic activity/Vol] 55 U/L 45-117 [facility] ALT [Catalytic activity/Vol] 20 U/L 16-61 [facility] Cholesterol in HDL [Mass/Vol] 38 mg/dL >40 [facility] Comment on above: The drugs N-Acetylcy steine and Metamizole may falsely depress this assay. Reference Range HDL <40 mg/dL Low HDL Cholesterol HDL >or= 60 mg/dL High HDL Cholesterol Cholesterol in LDL [Mass/Vol] 72 mg/dL 0-130 [facility] CO2 [Moles/Vol] 24.0 mmol/L 21.0-32.0 [facility] Globulin (S) [Mass/Vol] 3.6 g/dL 2.2-4.2 [facility] Magnesium [Mass/Vol] 1.9 mg/dL 1.6-2.6 [facility] Urea nitrogen/Creatinine [Mass ratio] 23.8 mg/mg 10-20 [facility] Laboratory - Hematology and Cell countsOrdered By: Lenin Hidalgo on 11-01-2023 MCH (RBC) [Entitic mass] 31.4 pg 27.0-32.0 [facility] MCHC (RBC) [Mass/Vol] 34.2 g/dL 32-36 [facility] Nucleated RBC/100 WBC (Bld) [Ratio] 0 % 0-5 [facility] Platelet mean volume (Bld) [Entitic vol] 8.7 fL 6.2-12.0 [facility] Platelets (Bld) [#/Vol] 311 10*3/uL 150-450 [facility] No Panel InformationOrdered By: Lenin Hidalgo on 11-01-2023 Estimated GFR (MDRD) Amer 72 mL/min >60 [facility] Comment on above: GFR Calc Estimated GFR (MDRD) Non-Af Amer 60 mL/min >60 [facility] Comment on above: Non- GFR Calc VLDL Cholesterol 51 mg/dL 5-40 [facility] RBC Auto (Bld) [#/Vol]Ordere d By: Lenin Hidalgo on 11-01-2023 RBC (Bld) [#/Vol] 3.76 10*6/uL 4.6-6.2 [facility] Serum or plasma calcium kay urement (mass/volume)Ordered By: Lenin Hidalgo on 11-01-2023 Calcium [Mass/Vol] 9.4 mg/dL 8.5-10.1 [facility] Serum or plasma creatinine m easurement (mass/volume)Ordered By: Lenin Hidalgo on 11-01-2023 Creatinine [Mass/Vol] 1.26 mg/dL 0.70-1.30 [facility] Comment on above: The validity of the calculated GFR & GFRAA in patients over 70 years has not been determined. Clinical correlation is essential. Serum or plasma urea nitroge n measurement (mass/volume)Ordered By: Lenin Hidalgo on 11-01-2023 Urea nitrogen [Mass/Vol] 30 mg/dL 7-18 [facility] Thin prep Papanicolaou smear with manual screeningOrdered By: Lenin Hidalgo on 11-01-2023 Thin prep Papanicolaou smear with manual screening 3.8 g/dL 3.2-5.0 [facility] Thin prep Papanicolaou smear with manual screening 14 U/L 15-37 [facility] Thin prep Papanicolaou smear with manual screening 8 5-15 [facility] Absolute lymphocyte countOrd ered By: Lenin Hidalgo on 10-18-2023 Lymphocytes Auto (Unsp spec) [#/Vol] 1.37 10*3/uL 0.83-4.51 [facility] Automated lymphocyte count a s percentage of total leukocytesOrdered By: Lenin Hidalgo on 10-18-2023 Lymphocytes/100 WBC Auto (Unsp spec) 16.9 % 19-41 [facility] Basophil percentageOrdered B y: Lenin Hidalgo on 10-18-2023 Basophils/100 WBC (Bld) 0.6 % 0-1 [facility] Bilirubin [Mass/Vol] 0.30 mg/dL 0.20-1.00 [facility] Comment on above: For patients on eltr ombopag therapy, use of Dimension [place] TBIL is not recommended. Chloride [Moles/Vol] 98 mmol/L 98-107 [facility] Eosinophils/100 WBC (Bld) 3.7 % 0-5 [facility] Glucose [Mass/Vol] 162 mg/dL 74-106 [facility] Comment on above: Fasting Glucose resu lt greater than or equal to 126 mg/dL suggests DIABETES MELLITUS per A.D.A. criteria. Hemoglobin (Bld) [Mass/Vol] 12.7 g/dL 13.0-16.5 [facility] Monocytes/100 WBC (Bld) 8.5 % 0-10 [facility] Neutrophils (Bld) [#/Vol] 5.7 10*3/uL 2.0-7.7 [facility] Neutrophils/100 WBC (Bld) 69.9 % 47-70 [facility] Potassium [Moles/Vol] 4.9 mmol/L 3.5-5.1 [facility] Protein [Mass/Vol] 7.8 g/dL 6.4-8.2 [facility] Sodium [Moles/Vol] 130 mmol/L 136-145 [facility] WBC (Bld) [#/Vol] 8.1 10*3/uL 4.4-11.0 [facility] Determination of erythrocyte mean corpuscular volume (MCV)Ordered By: Lenin Hidalgo on 10-18-2023 MCV (RBC) [Entitic vol] 93.5 fL 80-94 [facility] Erythrocyte distribution wid th ratioOrdered By: Lenin Hidalgo on 10-18-2023 Erythrocyte distribution width (RBC) [Ratio] 12.1 % 11.6-14.6 [facility] Erythrocyte distribution wid th standard deviationOrdered By: Lenin Hidalgo on 10-18-2023 Erythrocyte distribution width (RBC) [Entitic vol] 41.8 fL 35.1-43.9 [facility] Hematocrit Auto (Bld) [Volum e fraction]Ordered By: Lenin Hidalgo on 10-18-2023 Hematocrit (Bld) [Volume fraction] 37.1 % 40-54 [facility] Immature granulocytes/100 WB C Auto (Bld)Ordered By: Lenin Hidalgo on 10-18-2023 Immature granulocytes/100 WBC (Bld) 0.400 % 0.0-0.9 [facility] Comment on above: IG% - Immature Granu locytes (promyelocytes, myelocytes and metamyelocytes) > 1% indicates that a LEFT SHIFT is Present. Laboratory - Chemistry and C hemistry - challengeOrdered By: Lenin Hidalgo on 10-18-2023 Albumin/Globulin [Mass ratio] 1.0 {ratio} 0.9-2.4 [facility] ALP [Catalytic activity/Vol] 58 U/L 45-117 [facility] ALT [Catalytic activity/Vol] 21 U/L 16-61 [facility] CO2 [Moles/Vol] 25.0 mmol/L 21.0-32.0 [facility] Globulin (S) [Mass/Vol] 4.0 g/dL 2.2-4.2 [facility] Urea nitrogen/Creatinine [Mass ratio] 20.8 mg/mg 10-20 [facility] Laboratory - Hematology and Cell countsOrdered By: Lenin Hidalgo on 10-18-2023 MCH (RBC) [Entitic mass] 32.0 pg 27.0-32.0 [facility] MCHC (RBC) [Mass/Vol] 34.2 g/dL 32-36 [facility] Nucleated RBC/100 WBC (Bld) [Ratio] 0 % 0-5 [facility] Platelet mean volume (Bld) [Entitic vol] 8.7 fL 6.2-12.0 [facility] Platelets (Bld) [#/Vol] 297 10*3/uL 150-450 [facility] No Panel InformationOrdered By: Lenin Hidalgo on 10-18-2023 Estimated GFR (MDRD) Amer 62 mL/min >60 [facility] Comment on above: GFR Calc Estimated GFR (MDRD) Non-Af Amer 51 mL/min >60 [facility] Comment on above: Non- GFR Calc Parathyroid Hormone (Intact) 57.3 pg/mL 18.4-80.1 [facility] Urine Microalbumin/Creatinine Ratio 11.4 mg/g CRE <30 [facility] RBC Auto (Bld) [#/Vol]Ordere d By: Lenin Hidalgo on 10-18-2023 RBC (Bld) [#/Vol] 3.97 10*6/uL 4.6-6.2 [facility] Serum or plasma calcium kay urement (mass/volume)Ordered By: Lenin Hidalgo on 10-18-2023 Calcium [Mass/Vol] 8.7 mg/dL 8.5-10.1 [facility] Serum or plasma creatinine m easurement (mass/volume)Ordered By: Lenin Hidalgo on 10-18-2023 Creatinine [Mass/Vol] 1.44 mg/dL 0.70-1.30 [facility] Comment on above: The validity of the calculated GFR & GFRAA in patients over 70 years has not been determined. Clinical correlation is essential. Serum or plasma thyroid stim ulating hormone (TSH) measurement (units/volume)Ordered By: Lenin Hidalgo on 10-18-2023 TSH Qn 0.42 uIU/mL 0.358-3.74 [facility] Serum or plasma urea nitroge n measurement (mass/volume)Ordered By: Lenin Hidalgo on 10-18-2023 Urea nitrogen [Mass/Vol] 30 mg/dL 7-18 [facility] Thin prep Papanicolaou smear with manual screeningOrdered By: Lenin Hidalgo on 10-18-2023 Thin prep Papanicolaou smear with manual screening 3.8 g/dL 3.2-5.0 [facility] Thin prep Papanicolaou smear with manual screening 13 U/L 15-37 [facility] Thin prep Papanicolaou smear with manual screening 7 5-15 [facility] Thin prep Papanicolaou smear with manual screening 7.8 mg/L NO RANGE EST. [facility] Thin prep Papanicolaou smear with manual screening 0.72 ng/dL 0.76-1.46 [facility] Urine creatinine measurement (mass/volume)Ordered By: Lenin Hidalgo on 10-18-2023 Creatinine (U) [Mass/Vol] 68.00 mg/dL NO RANGE EST. [facility] Whole blood hemoglobin A1c/t otal hemoglobin ratio (mass fraction)Ordered By: Lenin Hidalgo on 10-18-2023 HbA1c (Bld) [Mass fraction] 6.8 % 3.8-5.6 [facility] Comment on above: Normal < 5.7 % Predi abetic 5.7 - 6.4 % Diabetic >or= 6.5 % Please note range changes. Basophil percentageOrdered B y: Lenin Hidalgo on 09-07-2023 Bilirubin [Mass/Vol] 0.60 mg/dL 0.20-1.00 [facility] Comment on above: For patients on eltr ombopag therapy, use of Dimension [place] TBIL is not recommended. Chloride [Moles/Vol] 99 mmol/L 98-107 [facility] Glucose [Mass/Vol] 129 mg/dL 74-106 [facility] Comment on above: Fasting Glucose resu lt greater than or equal to 126 mg/dL suggests DIABETES MELLITUS per A.D.A. criteria. Potassium [Moles/Vol] 4.8 mmol/L 3.5-5.1 [facility] Protein [Mass/Vol] 7.6 g/dL 6.4-8.2 [facility] Sodium [Moles/Vol] 133 mmol/L 136-145 [facility] Laboratory - Chemistry and C hemistry - challengeOrdered By: Lenin Hidalgo on 09-07-2023 Albumin/Globulin [Mass ratio] 1.0 {ratio} 0.9-2.4 [facility] ALP [Catalytic activity/Vol] 51 U/L 45-117 [facility] ALT [Catalytic activity/Vol] 26 U/L 16-61 [facility] CO2 [Moles/Vol] 25.0 mmol/L 21.0-32.0 [facility] Globulin (S) [Mass/Vol] 3.8 g/dL 2.2-4.2 [facility] Sodium (U) [Moles/Vol] 70 mmol/L Not Establ. [facility] Urea nitrogen/Creatinine [Mass ratio] 19.2 mg/mg 10-20 [facility] No Panel InformationOrdered By: Lenin Hidalgo on 09-07-2023 Thyroglobulin Antibody < 1.0 IU/mL 0.0-0.9 [facility] Comment on above: Thyroglobulin Antibo dy measured by Paul CoulterMethodologyIt should be noted that the presence of thyroglobulinantibodies may not be pathogenic nor diagnostic, especiallyat very low levels. The assay sales producer has found thatfour percent of individuals without evidence of thyroiddisease or autoimmunity will have positive TgAb levels upto 4 IU/mL.Performed at: [facility] [id number] Director: Bonifacio De Jesus PhD, Phone: [phone] Estimated GFR (MDRD) Amer 61 mL/min >60 [facility] Comment on above: GFR Calc Estimated GFR (MDRD) Non-Af Amer 50 mL/min >60 [facility] Comment on above: Non- GFR Calc Free Triiodothyronine (T3) pg/dL 2.6 pg/mL 2.18-3.98 [facility] Serum or plasma calcium kay urement (mass/volume)Ordered By: Lenin Hidalgo on 09-07-2023 Calcium [Mass/Vol] 9.0 mg/dL 8.5-10.1 [facility] Serum or plasma creatinine m easurement (mass/volume)Ordered By: Lenin Hidalgo on 09-07-2023 Creatinine [Mass/Vol] 1.46 mg/dL 0.70-1.30 [facility] Comment on above: The validity of the calculated GFR & GFRAA in patients over 70 years has not been determined. Clinical correlation is essential. Serum or plasma thyroid stim ulating hormone (TSH) measurement (units/volume)Ordered By: Lenin Hidalgo on 09-07-2023 TSH Qn 0.33 uIU/mL 0.358-3.74 [facility] Serum or plasma thyroperoxid ase antibody assay (units/volume)Ordered By: Lenin Hidalgo on 09-07-2023 TPO Ab Qn 26 [IU]/mL 0-34 [facility] Serum or plasma urea nitroge n measurement (mass/volume)Ordered By: Lenin Hidalgo on 09-07-2023 Urea nitrogen [Mass/Vol] 28 mg/dL 7-18 [facility] Thin prep Papanicolaou smear with manual screeningOrdered By: Lenin Hidalgo on 09-07-2023 Thin prep Papanicolaou smear with manual screening 3.8 g/dL 3.2-5.0 [facility] Thin prep Papanicolaou smear with manual screening 17 U/L 15-37 [facility] Thin prep Papanicolaou smear with manual screening 9 5-15 [facility] Thin prep Papanicolaou smear with manual screening 301 mOsm/KG 280-301 [facility] Thin prep Papanicolaou smear with manual screening 0.74 ng/dL 0.76-1.46 [facility] Urine osmolality measurement Ordered By: Lenin Hidalgo on 09-07-2023 Osmolality (U) [Osmolality] 375 mOsm/KG >50 [facility] Comment on above: Normal Urine Referen ce Ranges Random: 50 - 1200 mOsm/kg H20 depending on fluid intake Random: >850 mOsm/kg after 12 hour fluid restriction 24 hour: ~300 - 900 mOsm/kg H2O Absolute lymphocyte countOrd ered By: Lenin Hidalgo on 07-22-2023 Lymphocytes Auto (Unsp spec) [#/Vol] 1.31 10*3/uL 0.83-4.51 [facility] Automated lymphocyte count a s percentage of total leukocytesOrdered By: Lenin Hidalgo on 07-22-2023 Lymphocytes/100 WBC Auto (Unsp spec) 20.3 % 19-41 [facility] Basophil percentageOrdered B y: Lenin Hidalgo on 07-22-2023 Basophils/100 WBC (Bld) 0.8 % 0-1 [facility] Bilirubin [Mass/Vol] 0.50 mg/dL 0.20-1.00 [facility] Comment on above: For patients on eltr ombopag therapy, use of Dimension [place] TBIL is not recommended. Chloride [Moles/Vol] 104 mmol/L 98-107 [facility] Eosinophils/100 WBC (Bld) 4.8 % 0-5 [facility] Glucose [Mass/Vol] 94 mg/dL 74-106 [facility] Hemoglobin (Bld) [Mass/Vol] 12.0 g/dL 13.0-16.5 [facility] Monocytes/100 WBC (Bld) 9.6 % 0-10 [facility] Neutrophils (Bld) [#/Vol] 4.1 10*3/uL 2.0-7.7 [facility] Neutrophils/100 WBC (Bld) 64.0 % 47-70 [facility] Potassium [Moles/Vol] 4.9 mmol/L 3.5-5.1 [facility] Protein [Mass/Vol] 7.8 g/dL 6.4-8.2 [facility] Sodium [Moles/Vol] 136 mmol/L 136-145 [facility] WBC (Bld) [#/Vol] 6.5 10*3/uL 4.4-11.0 [facility] Determination of erythrocyte mean corpuscular volume (MCV)Ordered By: Lenin Hidalgo on 07-22-2023 MCV (RBC) [Entitic vol] 93.4 fL 80-94 [facility] Erythrocyte distribution wid th ratioOrdered By: Lenin Hidalgo on 07-22-2023 Erythrocyte distribution width (RBC) [Ratio] 12.4 % 11.6-14.6 [facility] Erythrocyte distribution wid th standard deviationOrdered By: Lenin Hidalgo on 07-22-2023 Erythrocyte distribution width (RBC) [Entitic vol] 43.1 fL 35.1-43.9 [facility] Hematocrit Auto (Bld) [Volum e fraction]Ordered By: Lenin Hidalgo on 07-22-2023 Hematocrit (Bld) [Volume fraction] 36.7 % 40-54 [facility] Immature granulocytes/100 WB C Auto (Bld)Ordered By: Lenin Hidalgo on 07-22-2023 Immature granulocytes/100 WBC (Bld) 0.500 % 0.0-0.9 [facility] Comment on above: IG% - Immature Granu locytes (promyelocytes, myelocytes and metamyelocytes) > 1% indicates that a LEFT SHIFT is Present. Laboratory - Chemistry and C hemistry - challengeOrdered By: Lenin Hidalgo on 07-22-2023 Albumin/Globulin [Mass ratio] 1.0 {ratio} 0.9-2.4 [facility] ALP [Catalytic activity/Vol] 52 U/L 45-117 [facility] ALT [Catalytic activity/Vol] 26 U/L 16-61 [facility] CO2 [Moles/Vol] 25.0 mmol/L 21.0-32.0 [facility] Cobalamin (Vitamin B12) [Mass/Vol] 1500 pg/mL 211-911 [facility] Ferritin [Mass/Vol] 87 ng/mL 26-388 [facility] Globulin (S) [Mass/Vol] 3.9 g/dL 2.2-4.2 [facility] Sodium (U) [Moles/Vol] 68 mmol/L Not Establ. [facility] Urea nitrogen/Creatinine [Mass ratio] 21.2 mg/mg 10-20 [facility] Laboratory - Hematology and Cell countsOrdered By: Lenin Hidalgo on 07-22-2023 MCH (RBC) [Entitic mass] 30.5 pg 27.0-32.0 [facility] MCHC (RBC) [Mass/Vol] 32.7 g/dL 32-36 [facility] Nucleated RBC/100 WBC (Bld) [Ratio] 0 % 0-5 [facility] Platelets (Bld) [#/Vol] 295 10*3/uL 150-450 [facility] No Panel InformationOrdered By: Lenin Hidalgo on 07-22-2023 Estimated GFR (MDRD) Amer 66 mL/min >60 [facility] Comment on above: GFR Calc Estimated GFR (MDRD) Non-Af Amer 54 mL/min >60 [facility] Comment on above: Non- GFR Calc Folate 55.80 ng/mL 3.1-55.4 [facility] Platelet mean volume [place]-Ec ker (Bld) [Entitic vol]Ordered By: Lenin Hidalgo on 07-22-2023 Platelet mean volume (Bld) [Entitic vol] 8.7 fL 6.2-12.0 [facility] RBC Auto (Bld) [#/Vol]Ordere d By: Lenin Hidalgo on 07-22-2023 RBC (Bld) [#/Vol] 3.93 10*6/uL 4.6-6.2 [facility] Serum or plasma calcium kay urement (mass/volume)Ordered By: Lenin Hidalgo on 07-22-2023 Calcium [Mass/Vol] 9.5 mg/dL 8.5-10.1 [facility] Serum or plasma creatinine m easurement (mass/volume)Ordered By: Lenin Hidalgo on 07-22-2023 Creatinine [Mass/Vol] 1.37 mg/dL 0.70-1.30 [facility] Comment on above: The validity of the calculated GFR & GFRAA in patients over 70 years has not been determined. Clinical correlation is essential. Serum or plasma thyroid stim ulating hormone (TSH) measurement (units/volume)Ordered By: Lenin Hidalgo on 07-22-2023 TSH Qn 0.31 uIU/mL 0.358-3.74 [facility] Serum or plasma urea nitroge n measurement (mass/volume)Ordered By: Lenin Hidalgo on 07-22-2023 Urea nitrogen [Mass/Vol] 29 mg/dL 7-18 [facility] Thin prep Papanicolaou smear with manual screeningOrdered By: Lenin Hidalgo on 07-22-2023 Thin prep Papanicolaou smear with manual screening 3.9 g/dL 3.2-5.0 [facility] Thin prep Papanicolaou smear with manual screening 15 U/L 15-37 [facility] Thin prep Papanicolaou smear with manual screening 7 5-15 [facility] Thin prep Papanicolaou smear with manual screening 297 mOsm/KG 280-301 [facility] Thin prep Papanicolaou smear with manual screening Negative Negative [facility] Comment on above: Lyme antibodies not detected. Reflex testing is notindicated.No laboratory evidence of infection with B. burgdorferi(Lyme disease). Negative results may occur in patientsrecently infected (less than or equal to 14 days) with B.burgdorferi. If recent infection is suspected, repeattesting on a new sample collected in 7 to 14 days isrecommended.Performed at: [facility] [id number] Director: Bonifacio De Jesus PhD, Phone: [phone] Urine osmolality measurement Ordered By: Lenin Hidalgo on 07-22-2023 Osmolality (U) [Osmolality] 613 mOsm/KG >50 [facility] Comment on above: Normal Urine Referen ce Ranges Random: 50 - 1200 mOsm/kg H20 depending on fluid intake Random: >850 mOsm/kg after 12 hour fluid restriction 24 hour: ~300 - 900 mOsm/kg H2O Absolute lymphocyte countOrd ered By: Lenin Hidalgo on 07-06-2023 Lymphocytes Auto (Unsp spec) [#/Vol] 0.77 10*3/uL 0.83-4.51 [facility] [facility] Basophil percentageOrdered B y: Lenin Hidalgo on 07-06-2023 Basophils/100 WBC (Bld) 0.5 % 0-1 [facility] Bilirubin [Mass/Vol] 0.40 mg/dL 0.20-1.00 [facility] Comment on above: For patients on eltr ombopag therapy, use of Dimension [place] TBIL is not recommended. Chloride [Moles/Vol] 96 mmol/L 98-107 [facility] Eosinophils/100 WBC (Bld) 1.5 % 0-5 [facility] Glucose [Mass/Vol] 113 mg/dL 74-106 [facility] Comment on above: Fasting Glucose resu lt from 100 to 125 mg/dL suggests IMPAIRED HOMEOSTASIS per A.D.A. criteria. Neutrophils (Bld) [#/Vol] 5.1 10*3/uL 2.0-7.7 [facility] Neutrophils/100 WBC (Bld) 77.9 % 47-70 [facility] Potassium [Moles/Vol] 5.0 mmol/L 3.5-5.1 [facility] Protein [Mass/Vol] 7.8 g/dL 6.4-8.2 [facility] Sodium [Moles/Vol] 128 mmol/L 136-145 [facility] WBC (Bld) [#/Vol] 6.6 10*3/uL 4.4-11.0 [facility] Blood erythrocytes count (nu mber/volume)Ordered By: Lenin Hidalgo on 07-06-2023 RBC (Bld) [#/Vol] 3.90 10*6/uL 4.6-6.2 [facility] Blood hemoglobin measurement (mass/volume)Ordered By: Lenin Hidalgo on 07-06-2023 Hemoglobin (Bld) [Mass/Vol] 12.0 g/dL 13.0-16.5 [facility] Blood lymphocytes/100 leukoc ytesOrdered By: Lenin Hidalgo on 07-06-2023 Lymphocytes/100 WBC (Bld) 11.8 % 19-41 [facility] Blood monocytes/100 leukocyt esOrdered By: Lenin Hidalgo on 07-06-2023 Monocytes/100 WBC (Bld) 7.8 % 0-10 [facility] Blood platelet mean volumeOr dered By: Lenin Hidalgo on 07-06-2023 Platelet mean volume (Bld) [Entitic vol] 8.6 fL 6.2-12.0 [facility] Determination of erythrocyte mean corpuscular volume (MCV)Ordered By: Lenin Hidalgo on 07-06-2023 MCV (RBC) [Entitic vol] 94.4 fL 80-94 [facility] Hematocrit Auto (Bld) [Volum e fraction]Ordered By: Lenin Hidalgo on 07-06-2023 Hematocrit (Bld) [Volume fraction] 36.8 % 40-54 [facility] Laboratory - Chemistry and C hemistry - challengeOrdered By: Lenin Hidalgo on 07-06-2023 ALP [Catalytic activity/Vol] 54 U/L 45-117 [facility] ALT [Catalytic activity/Vol] 22 U/L 16-61 [facility] CO2 [Moles/Vol] 25.0 mmol/L 21.0-32.0 [facility] Globulin (S) [Mass/Vol] 3.9 g/dL 2.2-4.2 [facility] Magnesium [Mass/Vol] 1.9 mg/dL 1.6-2.6 [facility] Urea nitrogen/Creatinine [Mass ratio] 19.2 mg/mg 10-20 [facility] Laboratory - Hematology and Cell countsOrdered By: Lenin Hidalgo on 07-06-2023 Erythrocyte distribution width (RBC) [Entitic vol] 42.5 fL 35.1-43.9 [facility] Erythrocyte distribution width (RBC) [Ratio] 12.2 % 11.6-14.6 [facility] Immature granulocytes/100 WBC (Bld) 0.500 % 0.0-0.9 [facility] Comment on above: IG% - Immature Granu locytes (promyelocytes, myelocytes and metamyelocytes) > 1% indicates that a LEFT SHIFT is Present. MCH (RBC) [Entitic mass] 30.8 pg 27.0-32.0 [facility] Nucleated RBC/100 WBC (Bld) [Ratio] 0 % 0-5 [facility] Auto (RBC) [Mass/Vol]Or dered By: Lenin Hidalgo on 07-06-2023 MCHC (RBC) [Mass/Vol] 32.6 g/dL 32-36 [facility] No Panel InformationOrdered By: Lenin Hidalgo on 07-06-2023 Estimated GFR (MDRD) Amer 73 mL/min >60 [facility] Comment on above: GFR Calc Estimated GFR (MDRD) Non-Af Amer 60 mL/min >60 [facility] Comment on above: Non- GFR Calc Urine Microalbumin/Creatinine Ratio 17.5 mg/g CRE <30 [facility] Platelets bldOrdered By: Selma Hidalgo on 07-06-2023 Platelets (Bld) [#/Vol] 316 10*3/uL 150-450 [facility] Serum or plasma albumin kay urement (mass/volume)Ordered By: Lenin Hidalgo on 07-06-2023 Albumin [Mass/Vol] 3.9 g/dL 3.2-5.0 [facility] Serum or plasma albumin/glob ulin mass ratioOrdered By: Lenin Hidalgo on 07-06-2023 Albumin/Globulin [Mass ratio] 1.0 {ratio} 0.9-2.4 [facility] Serum or plasma calcium kay urement (mass/volume)Ordered By: Lenin Hidalgo on 07-06-2023 Calcium [Mass/Vol] 9.7 mg/dL 8.5-10.1 [facility] Serum or plasma creatinine m easurement (mass/volume)Ordered By: Lenin Hidalgo on 07-06-2023 Creatinine [Mass/Vol] 1.25 mg/dL 0.70-1.30 [facility] Comment on above: The validity of the calculated GFR & GFRAA in patients over 70 years has not been determined. Clinical correlation is essential. Serum or plasma urea nitroge n measurement (mass/volume)Ordered By: Lenin Hidalgo on 07-06-2023 Urea nitrogen [Mass/Vol] 24 mg/dL 7-18 [facility] Thin prep Papanicolaou smear with manual screeningOrdered By: Lenin Hidalgo on 07-06-2023 Thin prep Papanicolaou smear with manual screening 12 U/L 15-37 [facility] Thin prep Papanicolaou smear with manual screening 7 5-15 [facility] Thin prep Papanicolaou smear with manual screening 285 mOsm/KG 280-301 [facility] Thin prep Papanicolaou smear with manual screening 10.7 mg/L NO RANGE EST. [facility] Urine creatinine measurement (mass/volume)Ordered By: Lenin Hidalgo on 07-06-2023 Creatinine (U) [Mass/Vol] 61.20 mg/dL NO RANGE EST. [facility] Urine osmolality measurement Ordered By: Lenin Hidalgo on 07-06-2023 Osmolality (U) [Osmolality] 455 mOsm/KG >50 [facility] Comment on above: Normal Urine Referen ce Ranges Random: 50 - 1200 mOsm/kg H20 depending on fluid intake Random: >850 mOsm/kg after 12 hour fluid restriction 24 hour: ~300 - 900 mOsm/kg H2O Basophil percentageOrdered B y: Lenin Hidalgo on 03-23-2023 Chloride [Moles/Vol] 99 mmol/L 98-107 [facility] Glucose [Mass/Vol] 161 mg/dL 74-106 [facility] Comment on above: Fasting Glucose resu lt greater than or equal to 126 mg/dL suggests DIABETES MELLITUS per A.D.A. criteria. Potassium [Moles/Vol] 4.5 mmol/L 3.5-5.1 [facility] Sodium [Moles/Vol] 132 mmol/L 136-145 [facility] Laboratory - Chemistry and C hemistry - challengeOrdered By: Lenin Hidalgo on 03-23-2023 CO2 [Moles/Vol] 27.0 mmol/L 21.0-32.0 [facility] Free T4 [Mass/Vol] 0.80 ng/dL 0.76-1.46 [facility] Urea nitrogen/Creatinine [Mass ratio] 18.8 mg/mg 10-20 [facility] No Panel InformationOrdered By: Lenin Hidalgo on 03-23-2023 Estimated GFR (MDRD) Amer 71 mL/min >60 [facility] Comment on above: GFR Calc Estimated GFR (MDRD) Non-Af Amer 59 mL/min >60 [facility] Comment on above: Non- GFR Calc Free Triiodothyronine (T3) pg/dL 2.4 pg/mL 2.18-3.98 [facility] Thyroglobulin Antibody < 1.0 IU/mL 0.0-0.9 [facility] Comment on above: Thyroglobulin Antibo dy measured by [employer] Thyroglobulin Level 9.8 ng/mL 1.4-29.2 [facility] Comment on above: According to the [facility] [employer] of Clinical [employer]ochemistry,the reference interval for Thyroglobulin (TG) should berelated to euthyroid patients and not for patients whounderwent thyroidectomy. TG reference intervals for thesepatients depend on the residual mass of the thyroid tissueleft after surgery. Establishing a post-operative baselineis recommended. The assay limit of quantitation is 0.1ng/mLThyroglobulin measured by [facility] [place] [employer] Thyroid Stimulating Hormone (TSH) 0.18 uIU/mL 0.358-3.74 [facility] Serum or plasma calcium kay urement (mass/volume)Ordered By: Lenin Hidalgo on 03-23-2023 Calcium [Mass/Vol] 9.2 mg/dL 8.5-10.1 [facility] Serum or plasma creatinine m easurement (mass/volume)Ordered By: Lenin Hidalgo on 03-23-2023 Creatinine [Mass/Vol] 1.28 mg/dL 0.70-1.30 [facility] Comment on above: The validity of the calculated GFR & GFRAA in patients over 70 years has not been determined. Clinical correlation is essential. Serum or plasma thyroperoxid ase antibody assay (units/volume)Ordered By: Lenin Hidalgo on 03-23-2023 TPO Ab Qn 15 [IU]/mL 0-34 [facility] Comment on above: Performed at: [address] [id number] Director: Bonifacio De Jesus PhD, Phone: [phone] Serum or plasma urea nitroge n measurement (mass/volume)Ordered By: Lenin Hidalgo on 03-23-2023 Urea nitrogen [Mass/Vol] 24 mg/dL 7-18 [facility] Thin prep Papanicolaou smear with manual screeningOrdered By: Lenin Hidalgo on 09-26-2023 Thin prep Papanicolaou smear with manual screening 6 5-15 [facility] Absolute lymphocyte countOrd ered By: Lenin Hidalgo on 02-19-2023 Lymphocytes Auto (Unsp spec) [#/Vol] 0.94 10*3/uL 0.83-4.51 [facility] Basophil percentageOrdered B y: Lenin Hidalgo on 02-19-2023 Basophils/100 WBC (Bld) 0.8 % 0-1 [facility] Bilirubin [Mass/Vol] 0.40 mg/dL 0.20-1.00 [facility] Comment on above: For patients on eltr ombopag therapy, use of Dimension [place] TBIL is not recommended. Chloride [Moles/Vol] 100 mmol/L 98-107 [facility] Eosinophils/100 WBC (Bld) 3.3 % 0-5 [facility] Glucose [Mass/Vol] 127 mg/dL 74-106 [facility] Comment on above: Fasting Glucose resu lt greater than or equal to 126 mg/dL suggests DIABETES MELLITUS per A.D.A. criteria. Neutrophils (Bld) [#/Vol] 4.6 10*3/uL 2.0-7.7 [facility] Neutrophils/100 WBC (Bld) 71.4 % 47-70 [facility] Potassium [Moles/Vol] 4.9 mmol/L 3.5-5.1 [facility] Protein [Mass/Vol] 7.6 g/dL 6.4-8.2 [facility] Sodium [Moles/Vol] 132 mmol/L 136-145 [facility] WBC (Bld) [#/Vol] 6.4 10*3/uL 4.4-11.0 [facility] Blood erythrocytes count (nu mber/volume)Ordered By: Lenin Hidalgo on 02-19-2023 RBC (Bld) [#/Vol] 3.66 10*6/uL 4.6-6.2 [facility] Blood hemoglobin measurement (mass/volume)Ordered By: Lenin Hidalgo on 02-19-2023 Hemoglobin (Bld) [Mass/Vol] 11.7 g/dL 13.0-16.5 [facility] Blood lymphocytes/100 leukoc ytesOrdered By: Lenin Hidalgo on 02-19-2023 Lymphocytes/100 WBC (Bld) 14.7 % 19-41 [facility] Blood monocytes/100 leukocyt esOrdered By: Lenin Hidalgo on 02-19-2023 Monocytes/100 WBC (Bld) 9.0 % 0-10 [facility] Blood platelet mean volumeOr dered By: Lenin Hidalgo on 02-19-2023 Platelet mean volume (Bld) [Entitic vol] 8.4 fL 6.2-12.0 [facility] Determination of erythrocyte mean corpuscular volume (MCV)Ordered By: Lenin Hidalgo on 02-19-2023 MCV (RBC) [Entitic vol] 94.5 fL 80-94 [facility] Hematocrit Auto (Bld) [Volum e fraction]Ordered By: Lenin Hidalgo on 02-19-2023 Hematocrit (Bld) [Volume fraction] 34.6 % 40-54 [facility] Laboratory - Chemistry and C hemistry - challengeOrdered By: Lenin Hidalgo on 02-19-2023 ALP [Catalytic activity/Vol] 52 U/L 45-117 [facility] ALT [Catalytic activity/Vol] 23 U/L 16-61 [facility] CO2 [Moles/Vol] 26.0 mmol/L 21.0-32.0 [facility] Free T4 [Mass/Vol] 0.79 ng/dL 0.76-1.46 [facility] Globulin (S) [Mass/Vol] 3.7 g/dL 2.2-4.2 [facility] Sodium (U) [Moles/Vol] 69 mmol/L Not Establ. [facility] Urea nitrogen/Creatinine [Mass ratio] 22.0 mg/mg 10-20 [facility] Laboratory - Hematology and Cell countsOrdered By: Lenin Hidalgo on 02-19-2023 Erythrocyte distribution width (RBC) [Entitic vol] 42.4 fL 35.1-43.9 [facility] Erythrocyte distribution width (RBC) [Ratio] 12.1 % 11.6-14.6 [facility] Immature granulocytes/100 WBC (Bld) 0.800 % 0.0-0.9 [facility] Comment on above: IG% - Immature Granu locytes (promyelocytes, myelocytes and metamyelocytes) > 1% indicates that a LEFT SHIFT is Present. MCH (RBC) [Entitic mass] 32.0 pg 27.0-32.0 [facility] Nucleated RBC/100 WBC (Bld) [Ratio] 0 % 0-5 [facility] MCHC Auto (RBC) [Mass/Vol]Or dered By: Lenin Hidalgo on 02-19-2023 MCHC (RBC) [Mass/Vol] 33.8 g/dL 32-36 [facility] No Panel InformationOrdered By: Lenin Hidalgo on 02-19-2023 Estimated GFR (MDRD) Amer 72 mL/min >60 [facility] Comment on above: GFR Calc Estimated GFR (MDRD) Non-Af Amer 59 mL/min >60 [facility] Comment on above: Non- GFR Calc Free Triiodothyronine (T3) pg/dL 2.6 pg/mL 2.18-3.98 [facility] Thyroid Stimulating Hormone (TSH) 0.21 uIU/mL 0.358-3.74 [facility] Platelets bldOrdered By: Selma Hidalgo on 02-19-2023 Platelets (Bld) [#/Vol] 291 10*3/uL 150-450 [facility] Serum or plasma albumin kay urement (mass/volume)Ordered By: Lenin Hidalgo on 02-19-2023 Albumin [Mass/Vol] 3.9 g/dL 3.2-5.0 [facility] Serum or plasma albumin/glob ulin mass ratioOrdered By: Lenin Hidalgo on 02-19-2023 Albumin/Globulin [Mass ratio] 1.1 {ratio} 0.9-2.4 [facility] Serum or plasma calcium kay urement (mass/volume)Ordered By: Lenin Hidalgo on 02-19-2023 Calcium [Mass/Vol] 9.3 mg/dL 8.5-10.1 [facility] Serum or plasma creatinine m easurement (mass/volume)Ordered By: Lenin Hidalgo on 02-19-2023 Creatinine [Mass/Vol] 1.27 mg/dL 0.70-1.30 [facility] Comment on above: The validity of the calculated GFR & GFRAA in patients over 70 years has not been determined. Clinical correlation is essential. Serum or plasma urea nitroge n measurement (mass/volume)Ordered By: Lenin Hidalgo on 02-19-2023 Urea nitrogen [Mass/Vol] 28 mg/dL 7-18 [facility] Thin prep Papanicolaou smear with manual screeningOrdered By: Lenin Hidalgo on 02-19-2023 Thin prep Papanicolaou smear with manual screening 12 U/L 15-37 [facility] Thin prep Papanicolaou smear with manual screening 6 5-15 [facility] Thin prep Papanicolaou smear with manual screening 292 mOsm/KG 280-301 [facility] Urine osmolality measurement Ordered By: Lenin Hidalgo on 02-19-2023 Osmolality (U) [Osmolality] 374 mOsm/KG >50 [facility] Comment on above: Normal Urine Referen ce Ranges Random: 50 - 1200 mOsm/kg H20 depending on fluid intake Random: >850 mOsm/kg after 12 hour fluid restriction 24 hour: ~300 - 900 mOsm/kg H2O CULTURE OTHER [BRIANNE]on CULTURE OTHER [BRIANNE] CULTURE OTHER [A ULTMAN] _CULTURE OTHER_ GO TO [employer] REPORTS AND ATTACHMENTS FOR SCANNED REPORT 06/[id number] Normal [facility] Comment on above: Performed By: #### [id number] #### [facility],[address] [place] [address] Basic metabolic 2000 panelon 05-28-2022 Anion gap [Moles/Vol] 9 mmol/L 9 - 18 mmol/L [facility] Calcium [Mass/Vol] 9.5 mg/dL 8.5 - 10. 2 mg/dL [facility] Chloride [Moles/Vol] 95 mmol/L Low 97 - 10 5 mmol/L [facility] CO2 [Moles/Vol] 27 mmol/L 22 - 30 mmol/L [facility] Creatinine [Mass/Vol] 1.36 mg/dL High 0.73 - 1.22 mg/dL [facility] Estimated Glomerular Filtration Rate 56 mL/min/1.73m Low >=60 mL/min/1.7 3[facility] Glucose [Mass/Vol] 111 mg/dL High 74 - 99 mg/dL [facility] Potassium [Moles/Vol] 4.8 mmol/L 3.7 - 5.1 mmol/L [facility] Sodium [Moles/Vol] 131 mmol/L Low 136 - 144 mmol/L [facility] Urea nitrogen [Mass/Vol] 24 mg/dL 9 - 24 mg/dL [facility] CT UROGRAM WO/W IVCONon 11-3 [facility] Absolute lymphocyte counton 03-31-2022 Lymphocytes Auto (Unsp spec) [#/Vol] 0.67 10*3/uL 0.83-4.51 [facility] Work Phone: Basophil percentageon 2021 Basophil percentage 0 SEEN /hpf 0-5 [facility] Work Phone: Basophils/100 WBC (Bld) 0.1 % 0-1 [facility] Work Phone: Bilirubin [Mass/Vol] 0.60 mg/dL 0.20-1.00 [facility] Work Phone: Comment on above: For patients on eltr ombopag therapy, use of Dimension [place] TBIL is not recommended. Chloride [Moles/Vol] 96 mmol/L 98-107 [facility] Work Phone: Eosinophils/100 WBC (Bld) 0.2 % 0-5 [facility] Work Phone: Glucose [Mass/Vol] 143 mg/dL 74-106 [facility] Work Phone: Comment on above: Fasting Glucose resu lt greater than or equal to 126 mg/dL suggests DIABETES MELLITUS per A.D.A. criteria. Neutrophils (Bld) [#/Vol] 8.9 10*3/uL 2.0-7.7 [facility] Work Phone: Neutrophils/100 WBC (Bld) 87.5 % 47-70 [facility] Work Phone: Potassium [Moles/Vol] 5.1 mmol/L 3.5-5.1 [facility] Work Phone: [phone] Protein [Mass/Vol] 8.2 g/dL 6.4-8.2 [facility] Work Phone: Sodium [Moles/Vol] 129 mmol/L 136-145 [facility] Work Phone: WBC (Bld) [#/Vol] 10.2 10*3/uL 4.4-11.0 [facility] Work Phone: Bilirubin Test strip Ql (U)o n 03-31-2022 Bilirubin Ql (U) Negative Negative [facility] Work Phone: Blood erythrocytes count (nu mber/volume)on 03-31-2022 RBC (Bld) [#/Vol] 4.32 10*6/uL 4.6-6.2 [facility] Work Phone: Blood hemoglobin measurement (mass/volume)on 03-31-2022 Hemoglobin (Bld) [Mass/Vol] 14.1 g/dL 13.0-16.5 [facility] Work Phone: Blood lymphocytes/100 leukoc yteson 03-31-2022 Lymphocytes/100 WBC (Bld) 6.6 % 19-41 [facility] Work Phone: Blood monocytes/100 leukocyt eson 03-31-2022 Monocytes/100 WBC (Bld) 5.4 % 0-10 [facility] Work Phone: Blood platelet mean volumeon 03-31-2022 Platelet mean volume (Bld) [Entitic vol] 8.2 fL 6.2-12.0 [facility] Work Phone: Determination of erythrocyte mean corpuscular volume (MCV)on 03-31-2022 MCV (RBC) [Entitic vol] 94.2 fL 80-94 [facility] Work Phone: Hematocrit Auto (Bld) [Volum e fraction]on 03-31-2022 Hematocrit (Bld) [Volume fraction] 40.7 % 40-54 [facility] Work Phone: [phone] Ketones Test strip Ql (U)on 03-31-2022 Ketones Ql (U) 50 mg/dl Negative [facility] Work Phone: Laboratory - Chemistry and C hemistry - challengeon 03-31-2022 ALP [Catalytic activity/Vol] 62 U/L 45-117 [facility] Work Phone: [phone] ALT [Catalytic activity/Vol] 20 U/L 16-61 [facility] Work Phone: [phone] CO2 [Moles/Vol] 24.0 mmol/L 21.0-32.0 [facility] Work Phone: [phone] Globulin (S) [Mass/Vol] 4.3 g/dL 2.2-4.2 [facility] Work Phone: [phone] Urea nitrogen/Creatinine [Mass ratio] 15.4 mg/mg 10-20 [facility] Work Phone: [phone] Laboratory - Hematology and Cell countson 03-31-2022 Erythrocyte distribution width (RBC) [Entitic vol] 41.7 fL 35.1-43.9 [facility] Work Phone: [phone] Erythrocyte distribution width (RBC) [Ratio] 11.9 % 11.6-14.6 [facility] Work Phone: [phone] Immature granulocytes/100 WBC (Bld) 0.200 % 0.0-0.9 [facility] Work Phone: [phone] Comment on above: IG% - Immature Granu locytes (promyelocytes, myelocytes and metamyelocytes) > 1% indicates that a LEFT SHIFT is Present. MCH (RBC) [Entitic mass] 32.6 pg 27.0-32.0 [facility] Work Phone: [phone] Nucleated RBC/100 WBC (Bld) [Ratio] 0 % 0-5 [facility] Work Phone: [phone] MCHC Auto (RBC) [Mass/Vol]on 03-31-2022 MCHC (RBC) [Mass/Vol] 34.6 g/dL 32-36 [facility] Work Phone: [phone] Mucus LM Ql (Urine sed)on Mucus Ql (Urine sed) 0 SEEN /hpf [facility] Work Phone: Nitrite Test strip Ql (U)on 03-31-2022 Nitrite Ql (U) Negative Negative [facility] Work Phone: No Panel Informationon 03-31 Estimated Creatinine Clearance Calc 53.06 ml/min [facility] Work Phone: Estimated GFR (MDRD) Amer 66 mL/min >60 [facility] Work Phone: Comment on above: GFR Calc Estimated GFR (MDRD) Non-Af Amer 55 mL/min >60 [facility] Work Phone: Comment on above: Non- GFR Calc Thyroid Stimulating Hormone (TSH) 0.30 uIU/mL 0.358-3.74 [facility] Work Phone: Platelets bldon 03-31-2022 Platelets (Bld) [#/Vol] 263 10*3/uL 150-450 [facility] Work Phone: Protein Test strip Ql (U)on 03-31-2022 Protein Ql (U) 15 mg/dl Negative [facility] Work Phone: Serum or plasma albumin kay urement (mass/volume)on 03-31-2022 Albumin [Mass/Vol] 3.9 g/dL 3.2-5.0 [facility] Work Phone: Serum or plasma albumin/glob ulin mass ratioon 03-31-2022 Albumin/Globulin [Mass ratio] 0.9 {ratio} 0.9-2.4 [facility] Work Phone: Serum or plasma calcium kay urement (mass/volume)on 03-31-2022 Calcium [Mass/Vol] 9.4 mg/dL 8.5-10.1 [facility] Work Phone: Serum or plasma creatinine m easurement (mass/volume)on 03-31-2022 Creatinine [Mass/Vol] 1.36 mg/dL 0.70-1.30 [facility] Work Phone: Comment on above: The validity of the calculated GFR & GFRAA in patients over 70 years has not been determined. Clinical correlation is essential. Serum or plasma urea nitroge n measurement (mass/volume)on 03-31-2022 Urea nitrogen [Mass/Vol] 21 mg/dL 7-18 [facility] Work Phone: Squamous epithelial cells de tection in urine sediment by light microscopyon 03-31-2022 Epithelial cells.squamous LM Ql (Urine sed) 0 SEEN /hpf 0-5 [facility] Work Phone: Thin prep Papanicolaou smear with manual screeningon 03-31-2022 Thin prep Papanicolaou smear with manual screening 15 U/L 15-37 [facility] Work Phone: Thin prep Papanicolaou smear with manual screening 9 5-15 [facility] Work Phone: Urine blood detectionon 10-0 RBC Ql (U) Negative Negative [facility] Work Phone: RBC Ql (U) 0 SEEN /hpf 0-5 [facility] Work Phone: Urine clarityon 03-31-2022 Clarity (U) Clear Clear [facility] Work Phone: Urine color determinationon 03-31-2022 Color (U) Yellow Yellow [facility] Work Phone: Urine glucose detectionon Glucose Ql (U) Normal mg/dl Normal [facility] Work Phone: Urine leukocyte esterase det ection by dipstickon 03-31-2022 Leukocyte esterase Test strip Ql (U) Negative Negative [facility] Work Phone: Urine pHon 03-31-2022 pH (U) 6.5 [pH] 5.0 - 8.0 [facility] Work Phone: Urine sediment bacteria coun t by microscopy (number/high power field)on 03-31-2022 Bacteria LM.HPF (Urine sed) [#/Area] 0 /[HPF] None Seen [facility] Work Phone: Urine specific gravity measu rementon 03-31-2022 Specific gravity (U) [Rel density] 1.010 1.002-1.03 0 [facility] Work Phone: Urobilinogen Auto test strip Ql (U)on 03-31-2022 Urobilinogen Ql (U) Normal mg/dl Normal [facility] Work Phone: Absolute lymphocyte counton 03-11-2022 Lymphocytes Auto (Unsp spec) [#/Vol] 1.32 10*3/uL 0.83-4.51 [facility] Work Phone: Basophil percentageon 2021 Basophils/100 WBC (Bld) 0.5 % 0-1 [facility] Work Phone: Chloride [Moles/Vol] 93 mmol/L 98-107 [facility] Work Phone: Eosinophils/100 WBC (Bld) 3.4 % 0-5 [facility] Work Phone: Glucose [Mass/Vol] 125 mg/dL 74-106 [facility] Work Phone: Comment on above: Fasting Glucose resu lt from 100 to 125 mg/dL suggests IMPAIRED HOMEOSTASIS per A.D.A. criteria. Neutrophils (Bld) [#/Vol] 5.5 10*3/uL 2.0-7.7 [facility] Work Phone: Neutrophils/100 WBC (Bld) 70.4 % 47-70 [facility] Work Phone: Potassium [Moles/Vol] 4.8 mmol/L 3.5-5.1 [facility] Work Phone: Sodium [Moles/Vol] 130 mmol/L 136-145 [facility] Work Phone: WBC (Bld) [#/Vol] 7.9 10*3/uL 4.4-11.0 [facility] [facility] Work Phone: Blood erythrocytes count (nu mber/volume)on 03-11-2022 RBC (Bld) [#/Vol] 3.75 10*6/uL 4.6-6.2 [facility]: [phone] Blood hemoglobin measurement (mass/volume)on 03-11-2022 Hemoglobin (Bld) [Mass/Vol] 11.9 g/dL 13.0-16.5 [facility] Work Phone: Blood lymphocytes/100 leukoc yteson 03-11-2022 Lymphocytes/100 WBC (Bld) 16.8 % 19-41 [facility] Work Phone: Blood monocytes/100 leukocyt eson 03-11-2022 Monocytes/100 WBC (Bld) 8.5 % 0-10 [facility] Work Phone: Blood platelet mean volumeon 03-11-2022 Platelet mean volume (Bld) [Entitic vol] 8.6 fL 6.2-12.0 [facility] Work Phone: [phone] Determination of erythrocyte mean corpuscular volume (MCV)on 03-11-2022 MCV (RBC) [Entitic vol] 94.4 fL 80-94 [facility] Work Phone: Hematocrit Auto (Bld) [Volum e fraction]on 03-11-2022 Hematocrit (Bld) [Volume fraction] 35.4 % 40-54 [facility] Work Phone: Laboratory - Chemistry and C hemistry - challengeon 03-11-2022 CO2 [Moles/Vol] 30.0 mmol/L 21.0-32.0 [facility] Work Phone: [phone] Urea nitrogen/Creatinine [Mass ratio] 23.1 mg/mg 10-20 [facility] Work Phone: Laboratory - Hematology and Cell countson 03-11-2022 Erythrocyte distribution width (RBC) [Entitic vol] 41.7 fL 35.1-43.9 [facility] Work Phone: [phone] Erythrocyte distribution width (RBC) [Ratio] 12.0 % 11.6-14.6 [facility] Work Phone: [phone] Immature granulocytes/100 WBC (Bld) 0.400 % 0.0-0.9 [facility] Work Phone: Comment on above: IG% - Immature Granu locytes (promyelocytes, myelocytes and metamyelocytes) > 1% indicates that a LEFT SHIFT is Present. MCH (RBC) [Entitic mass] 31.7 pg 27.0-32.0 [facility] Work Phone: Nucleated RBC/100 WBC (Bld) [Ratio] 0 % 0-5 [facility] Work Phone: MCHC Auto (RBC) [Mass/Vol]on 03-11-2022 MCHC (RBC) [Mass/Vol] 33.6 g/dL 32-36 [facility] Work Phone: No Panel Informationon 03-11 Estimated GFR (MDRD) Amer 76 mL/min >60 [facility] Work Phone: Comment on above: GFR Calc Estimated GFR (MDRD) Non-Af Amer 63 mL/min >60 [facility] Work Phone: Comment on above: Non- GFR Calc Platelets bldon 03-11-2022 Platelets (Bld) [#/Vol] 321 10*3/uL 150-450 [facility] Work Phone: Serum or plasma calcium kay urement (mass/volume)on 03-11-2022 Calcium [Mass/Vol] 8.9 mg/dL 8.5-10.1 [facility] Work Phone: Serum or plasma creatinine m easurement (mass/volume)on 03-11-2022 Creatinine [Mass/Vol] 1.21 mg/dL 0.70-1.30 [facility] Work Phone: Comment on above: The validity of the calculated GFR & GFRAA in patients over 70 years has not been determined. Clinical correlation is essential. Serum or plasma urea nitroge n measurement (mass/volume)on 03-11-2022 Urea nitrogen [Mass/Vol] 28 mg/dL 7-18 [facility] Work Phone: Thin prep Papanicolaou smear with manual screeningon 03-11-2022 Thin prep Papanicolaou smear with manual screening 7 5-15 [facility] Work Phone: [phone] Absolute lymphocyte counton 02-10-2022 Lymphocytes Auto (Unsp spec) [#/Vol] 1.03 10*3/uL 0.83-4.51 [facility] Work Phone: Basophil percentageon 2021 Basophils/100 WBC (Bld) 0.7 % 0-1 [facility] Work Phone: Chloride [Moles/Vol] 96 mmol/L 98-107 [facility] Work Phone: Eosinophils/100 WBC (Bld) 1.6 % 0-5 [facility] Work Phone: Glucose [Mass/Vol] 199 mg/dL 74-106 [facility] Work Phone: [phone] Comment on above: Fasting Glucose resu lt greater than or equal to 126 mg/dL suggests DIABETES MELLITUS per A.D.A. criteria. Neutrophils (Bld) [#/Vol] 5.8 10*3/uL 2.0-7.7 [facility] Work Phone: Neutrophils/100 WBC (Bld) 76.4 % 47-70 [facility] Work Phone: Potassium [Moles/Vol] 4.7 mmol/L 3.5-5.1 [facility] Work Phone: Sodium [Moles/Vol] 131 mmol/L 136-145 [facility] Work Phone: WBC (Bld) [#/Vol] 7.5 10*3/uL 4.4-11.0 [facility] Work Phone: [phone] Blood erythrocytes count (nu mber/volume)on 02-10-2022 RBC (Bld) [#/Vol] 4.14 10*6/uL 4.6-6.2 [facility] Work Phone: Blood hemoglobin measurement (mass/volume)on 02-10-2022 Hemoglobin (Bld) [Mass/Vol] 12.9 g/dL 13.0-16.5 [facility] Work Phone: Blood lymphocytes/100 leukoc yteson 02-10-2022 Lymphocytes/100 WBC (Bld) 13.7 % 19-41 [facility] Work Phone: Blood monocytes/100 leukocyt eson 02-10-2022 Monocytes/100 WBC (Bld) 7.2 % 0-10 [facility] Work Phone: Blood platelet mean volumeon 02-10-2022 Platelet mean volume (Bld) [Entitic vol] 8.6 fL 6.2-12.0 [facility] Work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 10:47-0400 Systolic blood pressure 154 mm[Hg] Dr. Georges Shafer Work Phone: [facility] Work Phone: 01-29-2022 14:25-0400 Body weight 90.9 kg Evelina Shafer MD Work Phone: [facility] [place] 01-29-2022 14:25-0400 Respiratory rate 16 /min Evelina Shafer MD Work Phone: [facility] [place] 01-29-2022 14:25-0400 SaO2% (BldA) [Mass fraction] 98 % Evelina Shafer MD Work Phone: [facility] [place] 01-25-2022 19:57-0400 Diastolic blood pressure 77 mm[Hg] [facility] Work Phone: 01-25-2022 19:57-0400 Heart rate 83 /min [facility] Work Phone: 01-25-2022 19:57-0400 Respiratory rate 15 /min [facility] Work Phone: 01-25-2022 19:57-0400 SaO2% (BldA) [Mass fraction] 99 % [facility] Work Phone: 01-25-2022 19:57-0400 Systolic blood pressure 140 mm[Hg] [facility] Work Phone: 01-25-2022 15:56-0400 Body height 181.61 cm [facility] Work Phone: 01-25-2022 15:56-0400 Body mass index (BMI) [Ratio] 28.9 kg/m2 [facility] Work Phone: 01-25-2022 15:56-0400 Body temperature 98.3 [degF] [facility] Work Phone: 01-25-2022 15:56-0400 Body weight 95.5 kg [facility] Work Phone: 12-02-2021 09:26-0400 Body weight 91.08 kg Hedy Nevarez APRN.CAN TECHNICIAN Work Phone: [facility] [place] 12-02-2021 09:26-0400 Diastolic blood pressure 77 mm[Hg] Hedy Nevarez APRN.CAN TECHNICIAN Work Phone: [facility] [place] 12-02-2021 09:26-0400 Systolic blood pressure 128 mm[Hg] Hedy Nevarez APRN.CAN TECHNICIAN Work Phone: [facility] [place] 11-11-2021 09:58-0400 Diastolic blood pressure 76 mm[Hg] Barbara Orantes MD Work Phone: [facility] [place] 11-11-2021 09:58-0400 Heart rate 66 /min Barbara Orantes MD Work Phone: [facility] [place] 11-11-2021 09:58-0400 Systolic blood pressure 127 mm[Hg] Barbara Orantes MD Work Phone: [facility] [place] 10-01-2021 11:12-0400 Body weight 89.9 kg Angie Podlogar SCALING 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 Work Phone: [facility] [place] 10-01-2021 11:12-0400 Diastolic blood pressure 82 mm[Hg] Angie Podlogar SCALING 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 Work Phone: [facility] [place] 10-01-2021 11:12-0400 Heart rate 70 /min Angie Podlogar SCALING 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 Work Phone: [facility] [place] 10-01-2021 11:12-0400 Respiratory rate 18 /min Angie Podlogar SCALING 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 Work Phone: [facility] [place] 10-01-2021 11:12-0400 SaO2% (BldA) [Mass fraction] 100 % Angie Podlogar SCALING 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 Work Phone: [facility] [place] 10-01-2021 11:12-0400 Systolic blood pressure 118 mm[Hg] Angie Podlogar SCALING 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 Work Phone: [facility] [place] Encounters Encounter Date Encounter Type Care Provider Facility Start: 05-04-2025 ambulatory Lenin Hidalgo Facility:[facility] Start: 05-03-2025 ambulatory Lenin Hidalgo Facility:[facility] Start: 02-14-2025 End: 02-14-[address] Lenin Hidalgo MD Work Phone: -Laboratory Start: 02-14-2025 End: 02-14-[address] Lenin Hidalgo MD -Laboratory Work Phone: Start: 02-14-2025 End: 02-14-2025 ambulatory Allyn Pandora Facility:[facility] Start: 01-25-2025 Non-patient / Non-visit Asia magana WESTERN PHILOSOPHY PROFESSOR-C -[facility] Work Phone: Start: 01-25-2025 ambulatory Asia Qureshi NP Facili ty:[facility] Start: 01-24-2025 ambulatory Lenin Hidalgo Facility:[facility] Start: 01-24-2025 Non-patient / Non-visit Dr. Marleni PEÑA -[facility] Start: 01-24-2025 End: 01-24-[address] Lenin Hidalgo MD Work Phone: -Cardiovascular Services Start: 01-24-2025 End: 01-24-2025 Patient encounter procedure Asia Qureshi WESTERN PHILOSOPHY PROFESSOR-C -[facility] Work Phone: Start: 01-24-2025 End: 01-24-2025 ambulatory Lenin Hidalgo Facility:[facility] Start: 01-18-2025 End: 01-18-2025 Patient encounter procedure Asia Qureshi NP-C -[facility] Work Phone: Start: 01-18-2025 End: 01-18-[address] Lenin Hidalgo MD Work Phone: -[facility] Start: 10-27-2024 End: 10-27-2024 ambulatory Chris Hawkins Facility:[facility] Start: 10-27-2024 End: 10-27-2024 Patient encounter procedure Chris Hawkins [place] -[facility] Work Phone: Start: 10-16-2024 End: 10-16-[address] Miguel Kirby MD -[facility] Work Phone: Start: 10-16-2024 End: 10-16-2024 ambulatory Miguel Kirby Facility:[facility] Start: 10-09-2024 ambulatory Miguel Kirby Facility: [facility] Start: 10-05-2024 End: 10-05-[address] Lenin Hidalgo MD Work Phone: [facility] Work Phone: Start: 10-05-2024 End: 10-05-[address] Lenin Hidalgo MD -[facility] Work Phone: Start: 10-05-2024 End: 10-05-2024 ambulatory Lenin Hidalgo Facility:[facility] Start: 10-02-2024 End: 10-02-[address] Lenin Hidalgo MD Work Phone: [facility] Work Phone: Start: 10-02-2024 End: 10-02-[address] Allyn Gallegos DO -Laboratory, [facility] Start: 10-02-2024 End: 10-02-2024 ambulatory Allyn Gallegos Facility:[facility] Start: 09-25-2024 End: 09-25-[address] Lenin Hidalgo MD Work Phone: [facility] Work Phone: Start: 09-25-2024 End: 09-25-[address] Lenin Hidalgo MD -Laboratory, [facility] Work Phone: Start: 09-25-2024 End: 09-25-2024 ambulatory Lenin Hidalgo Facility:[facility] Start: 09-19-2024 End: 09-19-[address] Lenin Hidalgo MD Work Phone: [facility] Work Phone: Start: 09-19-2024 End: 09-19-[address] Red Garcia MD -Laboratory, [facility] Start: 09-19-2024 End: 09-19-2024 ambulatory Lenin Hidalgo Facility:[facility] Start: 07-28-2024 End: 07-28-[address] Trenton Gerard MD -Cat Scan, [facility] Work Phone: Start: 07-28-2024 End: 07-28-2024 ambulatory Lenin Hidalgo Facility:[facility] Start: 07-17-2024 End: 07-17-[address] Lenin Hidalgo MD -Laboratory, [place] Work Phone: Start: 07-17-2024 End: 07-17-2024 ambulatory Lenin Hidalgo Facility:[facility] Start: 07-07-2024 Encounter for genera l adult medical examination without abnormal findings Lenin Hidalgo [facility] Start: 07-07-2024 End: 07-07-[address] Trenton Gerard MD -[facility] Work Phone: Start: 07-07-2024 End: 07-07-2024 ambulatory Lenin Hidalgo Facility:[facility] Start: 06-16-2024 End: 06-16-[address] Lenin Hidalgo MD -Laboratory, [facility] Start: 06-16-2024 End: 06-16-2024 ambulatory Lenin Hidalgo Facility:[facility] Start: 06-12-2024 End: 06-12-[address] Delphine Neri [facility] Work Phone: Start: 06-12-2024 End: 06-12-2024 ambulatory Lenin Hidalgo Facility:[facility] Start: 06-05-2024 End: 06-05-[address] Lenin Hidalgo MD -Laboratory, [facility] Start: 06-05-2024 End: 06-05-2024 ambulatory Lenin Hidalgo Facility:[facility] Start: [facility] Start: 05-24-2024 End: 05-24-2024 ambulatory Lenin Hidalgo Facility:[facility] Start: 05-22-2024 End: 05-22-2024 ambulatory Lenin Hidalgo Facility:[facility] Start: 05-16-2024 End: 05-16-2024 ambulatory Lenin Hidalgo Facility:[facility] Start: 05-09-2024 End: 05-09-2024 ambulatory Lenin Hidalgo Facility:[facility] Start: 11-29-2023 ambulatory Minna Olmstead [facility] Start: 11-29-2023 Patient encounter procedure Minna Jackman MA [facility] Start: 11-07-2023 End: 11-08-2023 Emergency department patient visit Dr. Lenin Hidalgo Work Phone: [facility]-Emergency Department Work Phone: Start: 11-06-2023 End: 11-06-2023 Emergency department patient visit Dr. Lenin Hidalgo Work Phone: [facility]-Emergency Department Work Phone: Start: 11-05-[address] Lenin Hidalgo Work Phone: [facility]-Laboratory Work Phone: Start: 11-05-2023 End: 11-05-[address] Lenin Hidalgo Work Phone: [facility] Work Phone: Start: 11-01-2023 End: 11-01-[address] Lenin Hidalgo Work Phone: [facility] Work Phone: Start: 11-01-2023 End: 11-01-[address] Lenin Hidalgo Work Phone: [facility] Start: 10-18-2023 End: 10-18-[address] Lenin Hidalgo Work Phone: [facility] Work Phone: Start: 10-18-2023 End: 10-18-[address] [facility] Start: 10-08-2023 End: 10-08-[address] Lenin Hidalgo Work Phone: [facility] Work Phone: Start: 10-08-2023 End: 10-08-[address] Lenin Hidalgo Work Phone: [facility] Work Phone: Start: 09-22-2023 End: 09-22-[address] Lenin Hidalgo Work Phone: [facility] Work Phone: Start: 09-22-2023 End: 09-22-[address] Lenin Hidalgo Work Phone: [facility] Work Phone: Start: 09-07-2023 End: 09-07-[address] Lenin Hidalgo Work Phone: [facility] Work Phone: Start: 09-07-2023 End: 09-07-[address] Lenin Hidalgo Work Phone: [facility] Start: 07-22-2023 End: 07-22-[address] Lenin Hidalgo Work Phone: [facility] Work Phone: Start: 07-22-2023 End: 07-22-[address] Lenin Hidalgo Work Phone: [facility] Start: 07-08-2023 End: 07-08-[address] Lenin Hidalgo Work Phone: [facility] Work Phone: Start: 07-06-2023 End: 07-06-[address] Lenin Hidalgo Work Phone: [facility] Work Phone: Start: 07-06-2023 End: 07-06-[address] Lenin Hidalgo Work Phone: [facility] Start: 05-03-2023 ambulatory Petty Joe RN [facility] Comment on above: cdm outreach (Teleph on cdm) Start: 03-23-2023 End: 03-23-2023 ambulatory [facility] Work Phone: Start: 03-23-2023 End: 03-23-2023 Patient encounter procedure [facility] Work Phone: Start: 02-19-2023 End: 02-19-2023 ambulatory [facility] Work Phone: Start: 02-19-2023 End: 02-19-2023 [facility] Start: 01-12-2023 ambulatory Evelina Shafer MD Work Phone: [facility] Comment on above: fluoxetine Start: 01-05-2023 ambulatory Michael cook MD Work Phone: Neurology Comment on above: Gabapentin Start: 12-01-2022 ambulatory Michael cook MD Work Phone: Neurology Comment on above: Gabapentin doseage . .... Start: 09-11-2022 Telephone encounter Georges Shafer MD Work Phone: [facility] Comment on above: Results Start: 09-10-2022 End: 09-10-2022 Patient encounter procedure Evelina Shafer MD Work Phone: [facility] Comment on above: Type 2 diabetes [...] with patient Michael Segal MD Work Phone: [facility] Start: 08-18-2022 Refill Michael [...] Sleep Start: 06-24-2022 End: 06-24-2022 ambulatory EVELINA [facility] Start: 06-22-2022 ambulatory Michael cook MD Work Phone: Neurology Comment on above: Virtual Meeting for June 26. Start: 06-05-2022 End: 06-05-2022 ambulatory Michael Segal MD Work Phone: Neurology Comment on above: RLS (restless legs s yndrome) (Primary Dx) Start: 06-05-2022 End: 06-05-2022 Telemedicine consultation with patient Michael Segal MD Work Phone: [facility] Start: 06-01-2022 End: 06-01-2022 Patient encounter procedure Evelina Shafer MD Work Phone: [facility] [place] Comment on above: Anxiety with depress ion (Primary Dx); Nausea Start: 05-28-2022 Telephone encounter Georges Shafer MD Work Phone: [facility] [place] Comment on above: Results Start: 05-27-2022 End: 05-27-2022 Subsequent hospital visit by physician [facility] (I-Stat) Work Phone: Cat Scan [...] 05-16-2022 ambulatory Evelina Shafer MD Work Phone: [facility] Comment on above: Flonase/Fluticasone ... Start: 05-04-2022 Orders Only Barbara Orantes MD Work Phone: Urology Comment on above: BPH with obstruction /lower urinary tract symptoms (Primary Dx) Start: 05-01-2022 End: 05-01-2022 Patient encounter procedure Evelina Shafer MD Work Phone: [facility] [place] Comment on above: Type 2 diabetes esperanza itus without complication, without long- term current use of insulin (HCC) (Primary Dx); CKD stage 2 due to type 2 diabetes mellitus (HCC); Hyponatremia; Hyperlipidemia, unspecified hyperlipidemia type; Statin intolerance; Primary hypertension; At high risk for falls; Need for COVID-19 vaccine Start: 04-20-2022 ambulatory Evelina Shafer MD Work Phone: [facility] [place] Comment on above: Prozac prescription .... Refill Request Start: 04-17-2022 [facility] Work Phone: Neurology Comment on above: Psg Check In (Adult) Start: 04-17-2022 End: 04-17-2022 Patient encounter procedure Evelina Shafer MD Work Phone: [facility] [place] Comment on above: Primary hypertension (Primary Dx); Brain fog; History of COVID-19 Start: 04-16-2022 Refill Evelina Shafer MD Work Phone: [facility] [place] Comment on above: Refill Request Start: 04-14-2022 ambulatory Evelina Shafer MD Work Phone: [facility] [place] Comment on above: Elevated Blood Press ure ... Start: 04-06-2022 Telephone encounter Georges Shafer MD Work Phone: [facility] [place] Comment on above: Results Start: 03-31-2022 End: 03-31-2022 Emergency department patient visit Dr. Georges Shafer Work Phone: [facility]-Emergency Department Start: 03-24-2022 End: 03-24-2022 Patient encounter procedure Minna ArayaKatlyn CHINCHILLA Work Phone: [facility] Comment on above: Suspected COVID-19 v irus infection (Primary Dx); Exposure to confirmed case of COVID-19 Start: 03-16-2022 End: 03-16-2022 Admission to same day surgery center Dr. Georges Shafer Work Phone: [facility]-Pipe Layer Helper/Special Procedures Start: 03-13-2022 Non-patient / Non-visit Dr. Lavon Shafer Work Phone: [facility] Start: 03-11-2022 End: 03-11-[address] Georges Shafer Work Phone: [facility] Work Phone: Start: 03-11-2022 End: 03-11-[address] Georges Shafer Work Phone: [facility]-Laboratory Start: 03-10-2022 Non-patient / Non-visit Dr. Lavon Shafer Work Phone: [facility] Start: 03-06-2022 Non-patient / Non-visit Dr. Lavon Shafer Work Phone: [facility] Start: 03-06-2022 End: 03-06-[address] Georges Shafer Work Phone: [facility] Work Phone: Start: 03-06-2022 End: 03-06-[address] Georges Shafer Work Phone: [facility]-Cardiovascul ar Services Start: 03-04-2022 ambulatory Evelina Shafer MD Work Phone: [facility] Comment on above: prozac Start: 03-03-2022 ambulatory Evelina Shafer MD Work Phone: [facility] Comment on above: prozac Start: 02-10-2022 End: 02-10-[address] Georges Shafer Work Phone: [facility]Laboratory Start: 02-10-2022 End: 02-10-[address] Georges Shafer Work Phone: [facility] Start: 01-29-2022 End: 01-29-2022 Patient encounter procedure Evelina Shafer MD Work Phone: [facility] Comment on above: Dehydration (Primary Dx); TRUPTI (acute kidney injury) (HCC); Moderate episode of recurrent major depressive disorder (HCC) Start: 01-29-2022 Telephone encounter Andrew tineo DO Work Phone: Kidney Medicine Comment on above: TRUPTI (Acute Kidney In jury) Start: 01-28-2022 Telephone encounter Angie jacques APRN.CAN TECHNICIAN Work Phone: [facility] Comment on above: Results Start: 01-26-2022 ambulatory Evelina Shafer MD Work Phone: [facility] Comment on above: UPCOMING ARASELI'T. Start: 01-25-2022 End: 01-25-2022 Emergency department patient visit [facility]Emergency Department Start: 01-06-2022 Telephone encounter Angie jacques APRN.CAN TECHNICIAN Work Phone: [facility] Comment on above: Results Start: 12-30-2021 End: 12-30-2021 Patient encounter procedure Daniel Alexandre Work Phone: Podiatry Comment on above: Type 2 diabetes esperanza itus without complication, with long-term current use of insulin (HCC) (Primary Dx); Plantar fasciitis; Hallux limitus, acquired, unspecified laterality Start: 12-30-2021 End: 12-30-2021 Subsequent hospital visit by physician Jose Luis [facility] [place] Work Phone: Radiology Comment on above: Pain [R52] Start: 12-08-2021 ambulatory Evelina Shafer MD Work Phone: [facility] Comment on above: prozac Start: 12-02-2021 End: 12-02-2021 Patient encounter procedure Hedy Nevarez SCALING 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 Work Phone: Kidney Medicine Comment on above: CKD (chronic kidney disease) stage 2, GFR 60-89 ml/min (Primary Dx); Hyponatremia Start: 11-28-2021 ambulatory Angelina hernandez RN Work Phone: [employer] Comment on above: [employer] Monitor ing (Update) Start: 11-11-2021 End: 11-11-2021 Patient encounter procedure Barbara Orantes MD Work Phone: Urology Comment on above: BPH with obstruction /lower urinary tract symptoms (Primary Dx); Erectile dysfunction, unspecified erectile dysfunction type Start: 10-14-2021 ambulatory Evelina [facility]fer MD [facility] Phone[facility] Comment on above: Second part of my em ail Start: 10-01-2021 End: 10-01-2021 Patient encounter procedure Angie Li SCALING 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 Work Phone: [facility] Comment on above: Anxiety with depress ion Start: 09-24-2021 ambulatory Kiersten fox RN Work Phone: [employer] Comment on above: community monitoring outreach (enrollment) Start: 09-23-2021 ambulatory Evelina Shafer MD Work Phone: [facility] Comment on above: Zoloft Start: 08-15-2021 Telephone encounter Georges Shafer MD Work Phone: [facility] [place] Comment on above: Results Start: 06-30-2021 End: 06-30-2021 Subsequent hospital visit by physician Jose Luis [facility] Work Phone: Radiology Comment on above: Hyperreflexia [R29.2 ] Start: 11-26-2020 Patient encounter status [facility] Start: 09-24-2020 End: 09-24-2020 Subsequent hospital visit by physician Xr [facility] Work Phone: Radiology Comment on above: Acute [...] X-ray Dr. Eron Hidalgo Work Phone: Start: 04-12-2024 US scan of thyroid Dr. Lenin Hidalgo [...] Radex foot complete minimum 3 views Daniel Nolvianguyễn Work Phone: Start: 11-11-2021 Urnls dip stick/tabl et rgnt auto w/o microscopy Barbara Orantes MD Work Phone: Start: 08-14-2021 Adult depression scr eening assessment Evelina Shafer MD Work Phone: Start: 06-30-2021 Radex spine cervical 2 or 3 views Osman Allison MD Work Phone: Start: 09-24-2020 Radiologic exam knee complete 4/more views Angie Li SCALING 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 Work Phone: Start: 01-19-2014 Colonoscopy Georges Shafer MD Work Phone: SARS-CoV-2 & FLU Ant igen (Rapid) Plan of Treatment Date Care Activity Detail Author Start: 12-18-2026 Urine microalbumin profile [facility] Start: 2026 RSV Vaccine (1 - 1-d ose 75+ series) RSV Vaccine (1 - 1-dose 75+ series) [facility] Start: 02-27-2024 Covid-19 Vaccine ( season) Covid-19 Vaccine () [facility] Start: 02-27-2024 Influenza vaccination [facility] Start: 01-20-2024 Colonoscopy COLONOSCOPY [facility] Start: 01-20-2024 COLORECTAL CANCER SCREENING COLORECTAL CANCER SCREENING [facility] Start: 01-20-2024 Screening for malign ant neoplasm of colon [facility] Start: 11-08-2023 [facility] Start: 11-07-2023 [facility] Start: 11-06-2023 [facility] Start: 11-05-2023 Thyroid stimulating immunoglobulins actual/normal in Serum [facility] Start: 09-11-2023 3 comp foot exam completed DIABETIC FOOT EXAM [facility] Start: 09-11-2023 ANNUAL PCP TEAM FOURTH GRADE TEACHER MELINA DISEASE VISIT ANNUAL PCP TEAM CHRONIC DISEASE VISIT [facility] Start: 09-11-2023 BP CONTROLLED (<130/80) BP CONTROLLE D (<130/80) [facility] Start: 09-11-2023 Creatinine measurement Serum Creatin ine [facility] Start: 09-11-2023 Diabetic foot examination Diabetic F oot Exam [facility] Start: 09-11-2023 SERUM CREATININE SERUM CREATININE Cl [facility] Start: 08-06-2023 BP CONTROLLED (<130/80) BP CONTROLLE D (<130/80) [facility] Start: 07-29-2023 Glaucoma screening Dilated Retinal E xam [facility] Start: 07-29-2023 Hepatitis C antibody , confirmatory test DILATED RETINAL EXAM [facility] Start: 06-28-2023 Advance Directive Discussion Advance Directive Discussion [facility] Start: 06-28-2023 Behavioral Health Screening Behavioral Health Screening [facility] Start: 06-01-2023 ANNUAL PCP TEAM FOURTH GRADE TEACHER MELINA DISEASE VISIT ANNUAL PCP TEAM CHRONIC DISEASE VISIT [facility] Start: 06-01-2023 BP CONTROLLED (<130/80) BP CONTROLLE D (<130/80) [facility] Start: 05-28-2023 SERUM CREATININE SERUM CREATININE Cl [facility] Start: 05-19-2023 BP CONTROLLED (<130/80) BP CONTROLLE D (<130/80) [facility] Start: 05-01-2023 ANNUAL PCP TEAM FOURTH GRADE TEACHER MELINA DISEASE VISIT ANNUAL PCP TEAM CHRONIC DISEASE VISIT [facility] Start: 05-01-2023 BP CONTROLLED (<130/80) BP CONTROLLE D (<130/80) [facility] Start: 04-17-2023 ANNUAL PCP TEAM FOURTH GRADE TEACHER MELINA DISEASE VISIT ANNUAL PCP TEAM CHRONIC DISEASE VISIT [facility] Start: 03-31-2023 ANNUAL PCP TEAM FOURTH GRADE TEACHER MELINA DISEASE VISIT ANNUAL PCP TEAM CHRONIC DISEASE VISIT [facility] Start: 03-13-2023 Hemoglobin A1c measurement HbA1C [facility] Start: 03-13-2023 Hemoglobin A1c/Hemoglobin.total in Blood HBA1C [facility] Start: 02-26-2023 Covid-19 Vaccine () Covid-19 Vaccine () [facility] Start: 02-26-2023 Influenza vaccination C [facility] Start: 01-29-2023 ANNUAL PCP TEAM FOURTH GRADE TEACHER MELINA DISEASE VISIT ANNUAL PCP TEAM CHRONIC DISEASE VISIT [facility] Start: 01-29-2023 SERUM CREATININE SERUM CREATININE [facility] Start: 01-27-2023 Hepatitis B surface antibody level LDL CHOLESTEROL [facility] Start: 01-05-2023 ANNUAL PCP TEAM FOURTH GRADE TEACHER MELINA DISEASE VISIT ANNUAL PCP TEAM CHRONIC DISEASE VISIT [facility] Start: 01-05-2023 BP CONTROLLED (<130/80) BP CONTROLLE D (<130/80) [facility] Start: 01-05-2023 Hepatitis B screening URINE AL BUMIN:CREATININE RATIO [facility] Start: 01-05-2023 SERUM CREATININE SERUM CREATININE [facility] Start: 12-02-2022 BP CONTROLLED (<130/80) BP CONTROLLE D (<130/80) [facility] Start: 11-22-2022 Hemoglobin A1c/Hemoglobin.total in Blood HBA1C [facility] Start: 11-13-2022 HEMOGLOBIN/HEMATOCRIT HEMOGLOBIN/HEM ATOCRIT [facility] Start: 11-13-2022 SERUM CREATININE SERUM CREATININE [facility] Start: 11-11-2022 BP CONTROLLED (<130/80) BP CONTROLLE D (<130/80) [facility] Start: 10-15-2022 ANNUAL PCP TEAM FOURTH GRADE TEACHER MELINA DISEASE VISIT ANNUAL PCP TEAM CHRONIC DISEASE VISIT [facility] Start: 10-15-2022 BP CONTROLLED (<130/80) BP CONTROLLE D (<130/80) [facility] Start: 10-01-2022 ANNUAL PCP TEAM FOURTH GRADE TEACHER MELINA DISEASE VISIT ANNUAL PCP TEAM CHRONIC DISEASE VISIT [facility] Start: 10-01-2022 BP CONTROLLED (<130/80) BP CONTROLLE D (<130/80) [facility] Start: 09-11-2022 End: 11-11-2022 POTASSIUM BLD POTASSIUM BLD Lab Routine Hyperkalemia Expected: 09/11/2022, Expires: 11/11/2022 [facility] Work Phone: Comment on above: Expected: 09/11/2022 , Expires: 11/11/2022 Start: 09-10-2022 End: 11-10-2022 Comprehensive metabolic 2000 panel - Serum or Plasma [facility] Work Phone: Comment on above: Expected: 09/10/2022 , Expires: 11/10/2022 Start: 09-10-2022 End: 11-10-2022 Hemoglobin A1c in Blood [facility] Work Phone: Comment on above: Expected: 09/10/2022 , Expires: 11/10/2022 Start: 09-10-2022 End: 11-10-2022 Magnesium [Mass/volume] in Serum or Plasma [facility] Work Phone: Comment on above: Expected: 09/10/2022 , Expires: 11/10/2022 Start: 09-04-2022 SERUM CREATININE SERUM CREATININE Cl [facility] Start: 08-29-2022 COVID-19 VACCINE (7 - Moderna series) COVID-19 VACCINE (7 - Moderna series) [facility] Start: 08-14-2022 Adult depression screening assessment DEPRESSION SCREENING [facility] Start: 08-14-2022 ANNUAL PCP TEAM FOURTH GRADE TEACHER MELINA DISEASE VISIT ANNUAL PCP TEAM CHRONIC DISEASE VISIT [facility] Start: 07-08-2022 Hemoglobin A1c/Hemoglobin.total in Blood HBA1C [facility] Start: 07-07-2022 3 comp foot exam completed DIABETIC FOOT EXAM [facility] Start: 07-02-2022 Hepatitis C antibody , confirmatory test DILATED RETINAL EXAM [facility] Start: 06-28-2022 ADVANCE DIRECTIVE DISCUSSION ADVANCE DIRECTIVE DISCUSSION [facility] Start: 06-28-2022 DEPRESSION ASSESSMENT DEPRESSION ASS ESSMENT [facility] Start: 05-18-2022 End: 07-18-2022 CREATININE BLD CREATININE BLD Lab Routine Gross hematuria Expected: 05/18/2022 (Approximate), Expires: 07/18/2022 [facility] Work Phone: Comment on above: Expected: 05/18/2022 (Approximate), Expires: 07/18/2022 Start: 05-04-2022 End: 07-04-2022 Bacteria identified in Urine by Culture URINE CULTURE Microbiology Routine BPH with obstruction/lower urinary tract symptoms Expected: 05/04/2022, Expires: 07/04/2022 [facility] Work Phone: Comment on above: Expected: 05/04/2022 , Expires: 07/04/2022 Start: 05-04-2022 End: 07-04-2022 Urinalysis complete panel - Urine URINALYSIS, WITH MICROSCOPIC Lab Routine BPH with obstruction/lower urinary tract symptoms Expected: 05/04/2022, Expires: 07/04/2022 [facility] Work Phone: Comment on above: Expected: 05/04/2022 , Expires: 07/04/2022 Start: 05-01-2022 End: 07-01-2022 Comprehensive metabolic 2000 panel - Serum or Plasma COMP METABOLIC PANEL Lab Routine Type 2 diabetes mellitus without complication, without long-term current use of insulin (HCC) Hyponatremia Expected: 05/01/2022, Expires: 07/01/2022 [facility] Work Phone: Comment on above: Expected: 05/01/2022 , Expires: 07/01/2022 Start: 05-01-2022 End: 07-01-2022 Hemoglobin A1c in Blood HGB A1C Lab Routine Type 2 diabetes mellitus without complication, without long-term current use of insulin (HCC) Expected: 05/01/2022, Expires: 07/01/2022 [facility] Work Phone: Comment on above: Expected: 05/01/2022 , Expires: 07/01/2022 Start: 03-31-2022 [facility] Work Phone: Start: 03-24-2022 End: 04-07-2022 Influenza virus A and B RNA and SARS-CoV-2 (COVID-19) N gene panel - Respiratory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 08/19/2022) [facility] [place]04-06-2021 History of Past illness Narrative* Problem Noted Date Resolved Date Acute pain of both knees 10/01/2020 021 documented as of this encounter (statuses as of 08/21/2022) [facility] [place]03-30-2021 History of Present illness Narrative* Catrina Del [...] 24, 2020 3:38 PM documented [facility] Author Noble Figueroa [facility] November 06, 2023 10:08am Note Date/Time November 06, 2023 8:32a m [facility] Medical Records Department [address] [place] [address] Emergency Department Summary 05/11/24 MR#: [id number] Acct: [id number] Name: OSMAN PADGETT Rep #:[id number] 73 From: Noble Figueroa MD PCP: Dr. Lenin Hidalgo MD Status:[facility] ER Location: ED ADDENDUM by Dr. Noble [...] his medications and he recently came off VrTrivielar. Over the last few days, he has [...] were elevated at 250 the other day[address] [facility] Medical History Abnormal stress test Acquired nasal [...] Penicillins Allergy Intermediate Rash Verified 11/06/23 08:13 Hyzgiis-UMI-RxF Reductase Allergy Intermediate Other Verified 11/06/23 08:13 [...] 9:26 EDT Reading Location ID and State: [facility] / [place] , Service support , Discharge Plan Triage [...] your Primary Care Provider. Call [facility] ([phone]) or report to the closest Emergency Room. Call 911 if necessary. 11/06/23 0936 <Electronically signed by Noble Figueroa MD> Cosigner Signature (if applicable): CC: Dr. Lenin Hidalgo MD ~ Signed [facility] Work Phone: Evaluation note* Diagnosis Anxiety with depression documented [facility] this encounter [facility]* Diagnosis BPH with obstruction/lower urinary tract symptoms- Primary Hypertrophy of prostate with urinary obstruction and other lower urinary tract symptoms (LUTS) Erectile dysfunction, unspecified erectile dysfunction type documented [facility] this encounter [facility]* Diagnosis CKD (chronic kidney disease) stage 2, GFR 60-89 ml/min- Primary Chronic kidney disease, Stage II (mild) Hyponatremia Hyposmolality and/or hyponatremia documented in this encounter [facility]* Diagnosis Type 2 diabetes mellitus without complication, with long-term current use of insulin (HCC)- Primary Plantar fasciitis Plantar fascial fibromatosis Hallux limitus, acquired, unspecified laterality documented in this encounter [facility]* Diagnosis Pain Generalized pain documented in this encounter [facility]* Diagnosis Pure hypercholesterolemia- Primary Screening for hyperlipidemia Screening for lipoid disorders documented in this encounter [facility] noteNo assessment information availableWMcKit[facility] Work Phone: Evaluation note* Diagnosis Dehydration- Primary TRUPTI (acute kidney injury) (HCC) Acute kidney failure, unspecified Moderate episode of recurrent major depressive disorder (HCC) documented [facility] this encounter [facility]* Diagnosis Anxiety with depression- Primary documented in this encounter [facility]* Diagnosis Onset Date Resolution Status Abnormal electrocardiogram a cute MCCONNELL (dyspnea on exertion) [place] Fatigue acute Essential hypertension chron ic Pure hypercholesterolemia ch ronic Right bundle branch block [facility] Work Phone: Evaluation note* Diagnosis Onset Date Resolution Status MCCONNELL (dyspnea on exertion) ac [place] Fatigue acute Essential hypertension chron ic Pure hypercholesterolemia ch ronic Right bundle branch block [facility] Work Phone: Evaluation note* Diagnosis Suspected COVID-19 virus infection- Primary Exposure to confirmed case of COVID-19 documented [facility] this encounter [facility]* Diagnosis Primary hypertension- Primary Unspecified essential hypertension Brain fog History of COVID-19 documented in this encounter [facility]* Diagnosis Anxiety with depression documented [facility] this encounter [facility]* Diagnosis Type 2 diabetes mellitus without complication, without long-term current use of insulin (HCC)- Primary CKD stage 2 due to type 2 diabetes mellitus (HCC) Hyponatremia Hyposmolality and/or hyponatremia Hyperlipidemia, unspecified hyperlipidemia type Statin intolerance Other drug allergy Primary hypertension Unspecified essential hypertension At high risk for falls Personal history of fall Need for COVID-19 vaccine documented [facility] this encounter [facility]* Diagnosis BPH with obstruction/lower urinary tract symptoms- Primary Hypertrophy of prostate with urinary obstruction and other lower urinary tract symptoms (LUTS) documented in this encounter [facility]* Diagnosis Non-seasonal allergic rhinitis, unspecified trigger- Primary documented in this encounter [facility]* Diagnosis BPH with obstruction/lower urinary tract symptoms- Primary Hypertrophy of prostate with urinary obstruction and other lower urinary tract symptoms (LUTS) Gross hematuria Erectile dysfunction, unspecified erectile dysfunction type [facility] Diagnosis Anxiety with depression- Primary Nausea Nausea alone documented [facility] this encounter [facility]* Diagnosis RLS (restless legs syndrome)- Primary Restless legs syndrome (RLS) documented in this encounter [facility]* Diagnosis Hyperkalemia- Primary Hyperpotassemia [facility]* Diagnosis RLS (restless legs syndrome)- Primary Restless legs syndrome (RLS) documented [facility]* Diagnosis Hyperkalemia- Primary Hyperpotassemia documented [facility] this [facility]* Diagnosis 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 classified elsewhere RLS (restless legs syndrome) Restless legs syndrome (RLS) documented [facility] this encounter [facility]* Diagnosis Gross hematuria documented [facility] this encounter [facility]* Diagnosis Onset Date Resolution Status Atherosclerotic heart diseas e of [place] coronary artery without angina pectoris acute Hyponatremia acute Essential hypertension chron ic Pure hypercholesterolemia ch ronic Right [facility] Work Phone: Evaluation note* Diagnosis Onset Date Resolution Status Atherosclerotic heart diseas e of [place] coronary artery without angina pectoris acute Hyponatremia acute Essential hypertension chron ic Pure hypercholesterolemia ch ronic Right bundle branch block ch ronic Thyroid nodule acute [facility] Work Phone: Evaluation note* Diagnosis Onset Date Resolution Status Thyroid nodule acute [facility] Work Phone: Evaluation note* Diagnosis Pre-operative examination- Primary Preoperative examination, unspecified BPH with obstruction/lower urinary tract symptoms Hypertrophy of prostate with urinary obstruction and other lower urinary tract symptoms (LUTS) Stage 3a chronic kidney disease (HCC) Claustrophobia Other isolated or specific phobias Controlled type 2 diabetes mellitus without complication, without long-term current use of insulin ([facility]) Essential hypertension Unspecified essential hypertension Pure hypercholesterolemia Other right bundle-branch block Hyperreflexia Abnormal reflex Ataxia Lack of coordination Dizziness and giddiness Myalgias Muscle tightness Unspecified disorder of muscle, ligament, and fascia Lumbar spondylosis Lumbosacral spondylosis without myelopathy documented [facility] this encounter [facility]* Diagnosis Acute pain of both knees Pre-operative examination- Primary Preoperative examination, unspecified BPH with obstruction/lower urinary tract symptoms Hypertrophy of prostate with urinary obstruction and other lower urinary tract symptoms (LUTS) Stage 3a chronic kidney disease (HCC) Claustrophobia Other isolated or specific phobias Controlled type 2 diabetes mellitus without complication, without long-term current use of insulin ([facility]) Essential hypertension Unspecified essential hypertension Pure hypercholesterolemia Other right bundle-branch block documented in this encounter [facility] Discharge instructions Additional Instructions Stop taking the clonazepam and replace with the Ativan 1 mg by mouth twice a day as needed for anxiety. You may need to have your metformin increased to 1000 mg by mouth twice a day, but ask your primary care physician about this when you follow-up with him on Wednesday. [facility] Work Phone: [facility] for referral (narrative)* Diagnostic Procedure Only (Routine) - Closed Specialty Diagnoses / Procedures Referred By Contac t Referred To Contact XR IMAGING Diagnoses Pain Procedures XR FOOT GENERAL 3V AP/LAT/OBL BILATERAL RADEX FOOT COMPLETE MINIMUM 3 VIEWS Daniel Alexandre [address] [place] [address] Xr Imaging Referral ID Status Reason Start Date Expiration Date V isits Requested Visits Authorized [id number] Closed Auto-Generate d Referral 12/26/2021 01/25/2023 [address] [facility] for referral (narrative)* Diagnostic Procedure Only (Routine) - Closed Specialty Diagnoses / Procedures Referred By Contac t Referred To Contact XR IMAGING Diagnoses Hyperreflexia Ataxia Dizziness and giddiness Myalgias Muscle tightness Lumbar spondylosis Procedures XR LUMBAR GENERAL 3V AP/LAT/L5-S1 X-RAY L-S SPINE AP/LATERAL Osman Allison Jr., MD [address] [place] [id number] [place] [address] Referral ID Status Reason Start Date Expiration Date V isits Requested Visits Authorized [id number] Closed Auto-Generate d Referral 06/30/2021 07/30/2022 1 1 * Diagnostic Procedure Only (Routine) - Closed Specialty Diagnoses / Procedures Referred By Contac t Referred To Contact XR IMAGING Diagnoses Hyperreflexia Ataxia Dizziness and giddiness Myalgias Muscle tightness Procedures XR CERV GENERAL 2V AP/LAT CERVICAL AP/LAT + ODONTOID/A21 Osman Allison Jr., MD [address] [facility] [address] [place] [address] [place] [address] Referral ID Status Reason Start Date Expiration Date V isits Requested Visits Authorized [id number] Closed Auto-Generate d Referral 06/30/2021 07/30/2022 [address] [facility] for referral (narrative)No reason for referral information availableWMcKitrick Hospital Work Phone: [facility] for visit Narrative* Diagnostic Procedure Only (Routine) - Closed Specialty Diagnoses / Procedures Referred By Contac t Referred To Contact XR IMAGING Diagnoses Pain Procedures XR FOOT GENERAL 3V AP/LAT/OBL BILATERAL RADEX FOOT COMPLETE MINIMUM 3 VIEWS Daniel Alexandre[address] [place] [address] Xr Imaging Referral ID Status Reason Start Date Expiration Date V isits Requested Visits Authorized [id number] Closed Auto-Generate d Referral 12/26/2021 01/25/2023 [address] [facility] for visit Narrative* Diagnostic Procedure Only (Routine) - Closed Specialty Diagnoses / Procedures Referred By Contac t Referred To Contact XR IMAGING Diagnoses Hyperreflexia Ataxia Dizziness and giddiness Myalgias Muscle tightness Lumbar spondylosis Procedures XR LUMBAR GENERAL 3V AP/LAT/L5-S1 X-RAY L-S SPINE AP/LATERAL Osman Allison Jr., MD [address] [facility] [address] [place] [address] [place] [address] Referral ID Status Reason Start Date Expiration Date V isits Requested Visits Authorized [id number] Closed Auto-Generate d Referral 06/30/2021 07/30/2022 1 1 [facility] Summary Purpose Family History No Family History Records Found Relationship Condition Age at Onset Recorded Date/T beatrice mother Malignant neoplasm Unknown father Malignant neoplasm Unknown Relationship Condition Age at Onset Recorded Date/T beatrice mother Malignant neoplasm Unknown Diabetes mellitus Unknown Disorder of thyroid Unknown father Malignant neoplasm Unknown Hypertension Unknown Advance Directives No Advanced Directives Records FoundDocuments on File Type Date Recorded Patient Sofa Cover Inspector Expl anation Advance Directive(s) 12/02/2020 9:50 AM Documents on File Type Date Recorded Patient Sofa Cover Inspector Expl anation Advance Directive(s) 12/02/2020 9:50 AM Advance Directive Response Recorded Date/ Time Living Will No January 25, 2022 4:24pm Power of Transition Mgr Rn No January 25 4:24pm Advance Directive Response Recorded Date/ Time Advance Directives on File No [facility] 2021 10:25am Advance Directives Yes February 10:25am Living Will Yes March 16, 2022 10:25am Power of Transition Mgr Rn Yes February 10:25am Advance Directive Response Recorded Date/ Time Advance Directives on File No [facility] 2021 10:25am Name of Medical Power of Transition Mgr Rn alexis herring March 31, 2022 10:28am Advance Directives Yes February 10:25am Living Will Yes March 31 10:28am Power of Transition Mgr Rn Yes March 31 10:28am Advance Directive Response Recorded Date/ Time Advance Directives Yes February 10:25am Living Will Yes March 31 10:28am Power of Transition Mgr Rn Yes March 31 10:28am Advance Directive Response Recorded Date/ Time Advance Directives Yes February 9:25am Living Will Yes March 31 9:28am Power of Transition Mgr Rn Yes March 31 9:28am Advance Directive Response Recorded Date/ Time Name of Medical Power of Transition Mgr Rn alexis houser November 06, 2023 8:17am Advance Directives Yes February 10:25am Living Will No November 06, 2023 8 :17am Power of Transition Mgr Rn Yes November 06, 2023 8:17am Advance Directive Response Recorded Date/ Time Name of Medical Power of Transition Mgr Rn alexis houser November 06, 2023 8:17am Advance Directives Yes February 10:25am Living Will No November 07, 2023 1 1:13am Power of Transition Mgr Rn No November 07, 2023 11:13am Advance Directive Response Recorded Date/ Time Advance Directives Yes February 10:25am Advance Directive Response Recorded Date/ Time Living Will No November 07, 2023 1 1:13am Do you have a Healthcare Power of Transition Mgr Rn? No November 07, 2023 11:13am Advance Directives [...] for Visit Atherosclerotic hear t disease of [place] coronary artery without angina pectoris Hyponatremia Essential hypertension Pure hypercholesterolemia Right bundle branch block Chief Complaint 1 Y FU Reason for Visit Atherosclerotic hear t disease of [place] coronary artery without angina pectoris Hyponatremia Essential hypertension Pure hypercholesterolemia Right bundle branch block Chief Complaint 1 Y FU Other specified abnormal findings of blood wet chemistry analyst Reason for Visit Atherosclerotic hear t disease of [place] coronary artery without angina pectoris Hyponatremia Essential hypertension Pure hypercholesterolemia Right bundle branch block Chief Complaint 1 Y FU Other specified abnormal findings of blood wet chemistry analyst ABN THYROID BLOOD TEST Reason for Visit Atherosclerotic hear t disease of [place] coronary artery without angina pectoris Hyponatremia Essential hypertension Pure hypercholesterolemia Right bundle branch block Chief Complaint 1 Y FU Other specified abnormal findings of blood wet chemistry analyst ABN THYROID BLOOD TEST E ORDER Reason for Visit Atherosclerotic hear t disease of [place] coronary artery without angina pectoris Hyponatremia Essential hypertension Pure hypercholesterolemia Right bundle branch block Chief Complaint 1 Y FU Other specified abnormal findings of blood wet chemistry analyst ABN THYROID BLOOD TEST E ORDER THYROID NODULE E ORDERS Reason for Visit Atherosclerotic hear t disease of [place] coronary artery without angina pectoris Hyponatremia Essential hypertension Pure hypercholesterolemia Right bundle branch block Thyroid nodule Chief Complaint Other specified abno rmal findings of blood wet chemistry analyst ABN THYROID BLOOD TEST E ORDER THYROID NODULE E ORDERS anxiety Reason for Visit Thyroid nodule Chief Complaint Other specified abno rmal findings of blood wet chemistry analyst ABN THYROID BLOOD TEST E ORDER THYROID NODULE E ORDERS anxiety anxiety Reason for Visit Thyroid nodule Chief Complaint Admit Date Neoplasm of unspecified behavior of bone , soft tis June 12, 2024 9:52am ABN ECHO July 07, 2024 1 1:20am SOB July 28, 2024 7 :20am Reason for Visit Admit Date Atherosclerotic heart diseas e of [place] coronary artery without angina pectoris July 07, [...] 1:0 0pm Atherosclerotic heart diseas e of [place] coronary artery without angina pectoris October 27, 2024 11:00am Dizziness October 27, 2024 11:00a m MCCONNELL (dyspnea on exertion) October 27, 2024 11:00am Syncope October 27, 2024 11:00a m Essential hypertension October 27, 2024 11: 00am Pure hypercholesterolemia October 27, 2024 11:00am Right bundle branch block October 27, 2024 11:00am Atherosclerotic heart diseas e of [place] coronary artery without angina pectoris January 18, [...] 1:0 0pm Atherosclerotic heart diseas e of [place] coronary artery without angina pectoris October 27, 2024 11:00am Dizziness October 27, 2024 11:00a m MCCONNELL (dyspnea on exertion) October 27, 2024 11:00am Syncope October 27, 2024 11:00a m Essential hypertension October 27, 2024 11: 00am Pure hypercholesterolemia October 27, 2024 11:00am Right bundle branch block October 27, 2024 11:00am Atherosclerotic heart diseas e of [place] coronary artery without angina pectoris January 18, [...] Admit Date Atherosclerotic heart diseas e of [place] coronary artery without angina pectoris October 27, 2024 11:00am Dizziness October 27, 2024 11:00a m MCCONNELL (dyspnea on exertion) October 27, 2024 11:00am Syncope October 27, 2024 11:00a m Essential hypertension October 27, 2024 11: 00am Pure hypercholesterolemia October 27, 2024 11:00am Right bundle branch block October 27, 2024 11:00am Atherosclerotic heart diseas e of [place] coronary artery without angina pectoris January 18, [...] COMPLEX 45 MINS Evelina Shafer MD [address] [place] [address] [facility] [place] [address] [place] [id number] Referral ID Status Reason Start Date Expiration Date Visits Requested Visits Authorized [id number] Authorized PCP Requested Referral Auto-Generate d Referral 05/01/2022 05/01/2023 99 99 Specialty Diagnoses / Procedures Referred By Sam collins Referred To Contact CT IMAGING Diagnoses Gross hematuria Procedures CT UROGRAM WO/W IVCON CT ABD & PELVIS W/O CONTRST 1+ BODY REGNS [facility] [address] [facility] [place] [address] Ct Imaging Referral ID Status Reason Start Date Expiration Date Visits Requested Visits Authorized [id number] Authorized Auto-Generat ed Referral 06/17/2023 1 1 Specialty Diagnoses / Procedures Referred By Sam collins Referred To Contact CT IMAGING Diagnoses Gross hematuria Procedures CT UROGRAM WO/W IVCON CT ABD & PELVIS W/O CONTRST 1+ BODY REGNS [facility] [address] [place] [address] [place] [address] Referral ID Status Reason Start Date Expiration Date V isits Requested Visits Authorized [id number] Closed Auto-Generate d Referral 05/18/2022 06/17/2023 1 [...] section and content) DATE CREATED AUTHOR 07/25/2021 [facility] DATE CREATED AUTHOR AUTHOR'S ORGANIZ ATION 06/29/2022 [facility] DATE CREATED AUTHOR AUTHOR'S ORGANIZ ATION 11/29/2023 [facility] DATE CREATED AUTHOR AUTHOR'S ORGANIZ ATION 05/08/2025 [facility] Source Comments (unrecognize d section and content) In the event this informatio n is protected by the Federal Confidentiality of Alcohol and Drug Abuse Patient Records regulations: The Federal rules restrict any use of the information to criminally investigate or prosecute any alcohol or drug abuse patient.[facility] the event this information is protected by the Federal Confidentiality of Alcohol and Drug Abuse Patient Records regulations: The Federal rules restrict any use of the information to criminally investigate or prosecute any alcohol or drug abuse patient.[facility] the event this information is protected by the Federal Confidentiality of Alcohol and Drug Abuse Patient Records regulations: The Federal rules restrict any use of the information to criminally investigate or prosecute any alcohol or drug abuse patient.[facility] the event this information is protected by the Federal Confidentiality of Alcohol and Drug Abuse Patient Records regulations: The Federal rules restrict any use of the information to criminally investigate or prosecute any alcohol or drug abuse patient.[facility] the event this information is protected by the Federal Confidentiality of Alcohol and Drug Abuse Patient Records regulations: The Federal rules restrict any use of the information to criminally investigate or prosecute any alcohol or drug abuse patient.[facility] [place]woodIn the event this information is protected by the Federal Confidentiality of Alcohol and Drug Abuse Patient Records regulations: The Federal rules restrict any use of the information to criminally investigate or prosecute any alcohol or drug abuse patient.[facility], [place]woodIn the event this information is protected by the Federal Confidentiality of Alcohol and Drug Abuse Patient Records regulations: The Federal rules restrict any use of the information to criminally investigate or prosecute any alcohol or drug abuse patient.[facility], [place]woodIn the event this information is protected by the Federal Confidentiality of Alcohol and Drug Abuse Patient Records regulations: The Federal rules restrict any use of the information to criminally investigate or prosecute any alcohol or drug abuse patient.[facility] [place]woodIn the event this information is protected by the Federal Confidentiality of Alcohol and Drug Abuse Patient Records regulations: The Federal rules restrict any use of the information to criminally investigate or prosecute any alcohol or drug abuse patient.[facility] [place]woodIn the event this information is protected by the Federal Confidentiality of Alcohol and Drug Abuse Patient Records regulations: The Federal rules restrict any use of the information to criminally investigate or prosecute any alcohol or drug abuse patient.[facility], [place]woodIn the event this information is protected by the Federal Confidentiality of Alcohol and Drug Abuse Patient Records regulations: The Federal rules restrict any use of the information to criminally investigate or prosecute any alcohol or drug abuse patient.[facility], [place]woodIn the event this information is protected by the Federal Confidentiality of Alcohol and Drug Abuse Patient Records regulations: The Federal rules restrict any use of the information to criminally investigate or prosecute any alcohol or drug abuse patient.[facility], [place]woodIn the event this information is protected by the Federal Confidentiality of Alcohol and Drug Abuse Patient Records regulations: The Federal rules restrict any use of the information to criminally investigate or prosecute any alcohol or drug abuse patient.[facility], [place]woodIn the event this information is protected by the Federal Confidentiality of Alcohol and Drug Abuse Patient Records regulations: The Federal rules restrict any use of the information to criminally investigate or prosecute any alcohol or drug abuse patient.[facility] [place]woodIn the event this information is protected by the Federal Confidentiality of Alcohol and Drug Abuse Patient Records regulations: The Federal rules restrict any use of the information to criminally investigate or prosecute any alcohol or drug abuse patient.[facility], [place]woodIn the event this information is protected by the Federal Confidentiality of Alcohol and Drug Abuse Patient Records regulations: The Federal rules restrict any use of the information to criminally investigate or prosecute any alcohol or drug abuse patient.[facility], [place]woodIn the event this information is protected by the Federal Confidentiality of Alcohol and Drug Abuse Patient Records regulations: The Federal rules restrict any use of the information to criminally investigate or prosecute any alcohol or drug abuse patient.[facility], [place]woodIn the event this information is protected by the Federal Confidentiality of Alcohol and Drug Abuse Patient Records regulations: The Federal rules restrict any use of the information to criminally investigate or prosecute any alcohol or drug abuse patient.[facility], [place]woodIn the event this information is protected by the Federal Confidentiality of Alcohol and Drug Abuse Patient Records regulations: The Federal rules restrict any use of the information to criminally investigate or prosecute any alcohol or drug abuse patient.[facility], [place]woodIn the event this information is protected by the Federal Confidentiality of Alcohol and Drug Abuse Patient Records regulations: The Federal rules restrict any use of the information to criminally investigate or prosecute any alcohol or drug abuse patient.[facility], [place]woodIn the event this information is protected by the Federal Confidentiality of Alcohol and Drug Abuse Patient Records regulations: The Federal rules restrict any use of the information to criminally investigate or prosecute any alcohol or drug abuse patient.[facility], [place]woodIn the event this information is protected by the Federal Confidentiality of Alcohol and Drug Abuse Patient Records regulations: The Federal rules restrict any use of the information to criminally investigate or prosecute any alcohol or drug abuse patient.[facility], [place]woodIn the event this information is protected by the Federal Confidentiality of Alcohol and Drug Abuse Patient Records regulations: The Federal rules restrict any use of the information to criminally investigate or prosecute any alcohol or drug abuse patient.[facility], [place]woodIn the event this information is protected by the Federal Confidentiality of Alcohol and Drug Abuse Patient Records regulations: The Federal rules restrict any use of the information to criminally investigate or prosecute any alcohol or drug abuse patient.[facility], [place]woodIn the event this information is protected by the Federal Confidentiality of Alcohol and Drug Abuse Patient Records regulations: The Federal rules restrict any use of the information to criminally investigate or prosecute any alcohol or drug abuse patient.[facility], [place]woodIn the event this information is protected by the Federal Confidentiality of Alcohol and Drug Abuse Patient Records regulations: The Federal rules restrict any use of the information to criminally investigate or prosecute any alcohol or drug abuse patient.[facility], [place]woodIn the event this information is protected by the Federal Confidentiality of Alcohol and Drug Abuse Patient Records regulations: The Federal rules restrict any use of the information to criminally investigate or prosecute any alcohol or drug abuse patient.[facility], [place]woodIn the event this information is protected by the Federal Confidentiality of Alcohol and Drug Abuse Patient Records regulations: The Federal rules restrict any use of the information to criminally investigate or prosecute any alcohol or drug abuse patient.[facility], [place]woodIn the event this information is protected by the Federal Confidentiality of Alcohol and Drug Abuse Patient Records regulations: The Federal rules restrict any use of the information to criminally investigate or prosecute any alcohol or drug abuse patient.[facility], [place]woodIn the event this information is protected by the Federal Confidentiality of Alcohol and Drug Abuse Patient Records regulations: The Federal rules restrict any use of the information to criminally investigate or prosecute any alcohol or drug abuse patient.[facility], [place]woodIn the event this information is protected by the Federal Confidentiality of Alcohol and Drug Abuse Patient Records regulations: The Federal rules restrict any use of the information to criminally investigate or prosecute any alcohol or drug abuse patient.[facility], [place]woodIn the event this information is protected by the Federal Confidentiality of Alcohol and Drug Abuse Patient Records regulations: The Federal rules restrict any use of the information to criminally investigate or prosecute any alcohol or drug abuse patient.[facility], [place]woodIn the event this information is protected by the Federal Confidentiality of Alcohol and Drug Abuse Patient Records regulations: The Federal rules restrict any use of the information to criminally investigate or prosecute any alcohol or drug abuse patient.[facility], [place]woodIn the event this information is protected by the Federal Confidentiality of Alcohol and Drug Abuse Patient Records regulations: The Federal rules restrict any use of the information to criminally investigate or prosecute any alcohol or drug abuse patient.[facility], [place]woodIn the event this information is protected by the Federal Confidentiality of Alcohol and Drug Abuse Patient Records regulations: The Federal rules restrict any use of the information to criminally investigate or prosecute any alcohol or drug abuse patient.[facility], [place]woodIn the event this information is protected by the Federal Confidentiality of Alcohol and Drug Abuse Patient Records regulations: The Federal rules restrict any use of the information to criminally investigate or prosecute any alcohol or drug abuse patient.[facility], [place]woodIn the event this information is protected by the Federal Confidentiality of Alcohol and Drug Abuse Patient Records regulations: The Federal rules restrict any use of the information to criminally investigate or prosecute any alcohol or drug abuse patient.[facility], [place]woodIn the event this information is protected by the Federal Confidentiality of Alcohol and Drug Abuse Patient Records regulations: The Federal rules restrict any use of the information to criminally investigate or prosecute any alcohol or drug abuse patient.[facility], [place]woodIn the event this information is protected by the Federal Confidentiality of Alcohol and Drug Abuse Patient Records regulations: The Federal rules restrict any use of the information to criminally investigate or prosecute any alcohol or drug abuse patient.[facility], [place]woodIn the event this information is protected by the Federal Confidentiality of Alcohol and Drug Abuse Patient Records regulations: The Federal rules restrict any use of the information to criminally investigate or prosecute any alcohol or drug abuse patient.[facility], [place]woodIn the event this information is protected by the Federal Confidentiality of Alcohol and Drug Abuse Patient Records regulations: The Federal rules restrict any use of the information to criminally investigate or prosecute any alcohol or drug abuse patient.[facility], [place]woodIn the event this information is protected by the Federal Confidentiality of Alcohol and Drug Abuse Patient Records regulations: The Federal rules restrict any use of the information to criminally investigate or prosecute any alcohol or drug abuse patient.[facility], [place]woodIn the event this information is protected by the Federal Confidentiality of Alcohol and Drug Abuse Patient Records regulations: The Federal rules restrict any use of the information to criminally investigate or prosecute any alcohol or drug abuse patient.[facility], [place]woodIn the event this information is protected by the Federal Confidentiality of Alcohol and Drug Abuse Patient Records regulations: The Federal rules restrict any use of the information to criminally investigate or prosecute any alcohol or drug abuse patient.[facility], [place]woodIn the event this information is protected by the Federal Confidentiality of Alcohol and Drug Abuse Patient Records regulations: The Federal rules restrict any use of the information to criminally investigate or prosecute any alcohol or drug abuse patient.[facility], [place]woodIn the event this information is protected by the Federal Confidentiality of Alcohol and Drug Abuse Patient Records regulations: The Federal rules restrict any use of the information to criminally investigate or prosecute any alcohol or drug abuse patient.[facility], [place]woodIn the event this information is protected by the Federal Confidentiality of Alcohol and Drug Abuse Patient Records regulations: The Federal rules restrict any use of the information to criminally investigate or prosecute any alcohol or drug abuse patient.[facility], [place]woodIn the event this information is protected by the Federal Confidentiality of Alcohol and Drug Abuse Patient Records regulations: The Federal rules restrict any use of the information to criminally investigate or prosecute any alcohol or drug abuse patient.[facility], [place]woodIn the event this information is protected by the Federal Confidentiality of Alcohol and Drug Abuse Patient Records regulations: The Federal rules restrict any use of the information to criminally investigate or prosecute any alcohol or drug abuse patient.[facility], [place]woodIn the event this information is protected by the Federal Confidentiality of Alcohol and Drug Abuse Patient Records regulations: The Federal rules restrict any use of the information to criminally investigate or prosecute any alcohol or drug abuse patient.[facility], [place]woodIn the event this information is protected by the Federal Confidentiality of Alcohol and Drug Abuse Patient Records regulations: The Federal rules restrict any use of the information to criminally investigate or prosecute any alcohol or drug abuse patient.[facility], [place]woodIn the event this information is protected by the Federal Confidentiality of Alcohol and Drug Abuse Patient Records regulations: The Federal rules restrict any use of the information to criminally investigate or prosecute any alcohol or drug abuse patient.[facility] [place] Care Teams (unrecognized sec tion and content) Training And Development Rep Relationship Specialty Start Date End Date Evelina Shafer MD [address] [place] [address] PCP - General Family Practice 06/26/19 Training And Development Rep Relationship Specialty Start Date End Date Evelina Shafer MD [address] [place] [address] PCP - General Family Practice 06/26/19 Training And Development Rep Relationship Specialty Start Date End Date Evelina Shafer MD [address] [place] [address] PCP - General Family Practice 06/26/19 [place] [address] [place], [place] [id number] Kindergarten Teacher 09/25/21 Training And Development Rep Relationship Specialty Start Date End Date Evelina Shafer MD [address] [place] [address] PCP - General Family Practice 06/26/19 [place] [address] [place] [address] Kindergarten Teacher 09/25/21 Training And Development Rep Relationship Specialty Start Date End Date Evelina Shafer MD [address] [place] [address] PCP - General Family Practice 06/26/19 [place] [address] [place] [address] Kindergarten Teacher 09/25/21 Training And Development Rep Relationship Specialty Start Date End Date Evelina Shafer MD [address] [place] [address] PCP - General Family Practice 06/26/19 Angelina Mims RN [address] [facility] [address] Kindergarten Teacher 11/28/21 Training And Development Rep Relationship Specialty Start Date End Date Evelina Shafer MD [address] [place] [address] PCP - General Family Practice 06/26/19 Angelina Mims RN [address] [facility] [address] Kindergarten Teacher 11/28/21 Training And Development Rep Relationship Specialty Start Date End Date Evelina Shafer MD [address] [place] [address] PCP - General Family Practice 06/26/19 Angelina Mims RN [address] [facility] [address] Kindergarten Teacher 11/28/21 Training And Development Rep Relationship Specialty Start Date End Date Evelina Shafer MD [address] [place] [address] PCP - General Family Practice 06/26/19 Angelina Mims RN [address] [facility] [address] Kindergarten Teacher 11/28/21 Training And Development Rep Relationship Specialty Start Date End Date Evelina Shafer MD [address] [place] [address] PCP - General Family Practice 06/26/19 Angelina Mims RN [address] [place] [address] Kindergarten Teacher 11/28/21 Training And Development Rep Relationship Specialty Start Date End Date Evelina Shafer MD [address] [facility] [place] [address] PCP - General Family Practice 06/26/19 [place] [address] [place] [address] Kindergarten Teacher 09/25/21 Angelina Mims RN [address] [facility] [place] [address] Kindergarten Teacher 11/28/21 Training And Development Rep Relationship Specialty Start Date End Date Evelina Shafer MD [address] [facility] [place] [address] PCP - General Family Practice 06/26/19 Angelina Mims RN [address] [facility] [place] [place] [address] Kindergarten Teacher 11/28/21 Training And Development Rep Relationship Specialty Start Date End Date Evelina Shafer MD [address] [facility] [place] [address] PCP - General Family Practice 06/26/19 Angelina Mims RN [address] [facility] [place] [address] Kindergarten Teacher 11/28/21 Training And Development Rep Relationship Specialty Start Date End Date Evelina Shafer MD [address] [facility] [place] [address] PCP - General Family Practice 06/26/19 Angelina Mims RN [address] [place] [address] Kindergarten Teacher 11/28/21 Training And Development Rep Relationship Specialty Start Date End Date Evelina Shafer MD [address] [facility] [place] [address] PCP - General Family Medicine 06/26/19 Angelina Mims, FARZANA [address] [place] [address] Kindergarten Teacher 11/28/21 Training And Development Rep Relationship Specialty Start Date End Date Evelina Shafer MD [address] [facility] [place] [address] PCP - General Family Medicine 06/26/19 Angelina Mims, FARZANA [address] [place] [address] Kindergarten Teacher 11/28/21 Training And Development Rep Relationship Specialty Start Date End Date Evelina Shafer MD [address] [facility] [place] [address] PCP - General Family Medicine 06/26/19 Angelina Mims RN [address] [place] [address] Kindergarten Teacher 11/28/21 Training And Development Rep Relationship Specialty Start Date End Date Evelina Shafer MD [address] [facility] [place] [address] PCP - General Family Medicine 06/26/19 Angelina Mims RN [address] [place] [address] Kindergarten Teacher 11/28/21 Training And Development Rep Relationship Specialty Start Date End Date Evelina Shafer MD [address] [facility] [place] [address] PCP - General Family Medicine 06/26/19 Angelina Mims RN [address] [place] [address] Kindergarten Teacher 11/28/21 Training And Development Rep Relationship Specialty Start Date End Date Evelina Shafer MD [address] [facility] [place] [address] PCP - General Family Medicine 06/26/19 Angelina Mims RN [address] [place] [address] Kindergarten Teacher 11/28/21 Training And Development Rep Relationship Specialty Start Date End Date Evelina Shafer MD [address] [place] [address] PCP - General Family Medicine 06/26/19 Angelina Mims RN [address] [place] [address] Kindergarten Teacher 11/28/21 Training And Development Rep Relationship Specialty Start Date End Date Evelina Shafer MD [address] [place] [address] PCP - General Family Medicine 06/26/19 Petty Joe, FARZANA [facility] [place] [address] [place] [address] Kindergarten Teacher 11/28/21 Training And Development Rep Relationship Specialty Start Date End Date Evelina Shafer MD [address] [place] [address] PCP - General Family Medicine 06/26/19 Petty Joe, FARZANA [facility] [place] [address] [place] [address] Kindergarten Teacher 11/28/21 Training And Development Rep Relationship Specialty Start Date End Date Evelina Shafer MD [address] [place] [address] PCP - General Family Medicine 06/26/19 Petty Joe, FARZANA [facility] [place] [address] [place] [phone] Kindergarten Teacher 11/28/21 Training And Development Rep Relationship Specialty Start Date End Date Evelina Shafer MD [address] [place] [address] PCP - General Family Medicine 06/26/19 Petty Joe, FARZANA [facility] [place] [address] [place] [phone] Kindergarten Teacher 11/28/21 Training And Development Rep Relationship Specialty Start Date End Date Evelina Shafer MD [address] [place] [address] PCP - General Family Medicine 06/26/19 Petty Joe, FARZANA [facility] [place] [address] [place] [address] Kindergarten Teacher 11/28/21 Training And Development Rep Relationship Specialty Start Date End Date Evelina Shafer MD [address] [place] [address] PCP - General Family Medicine 06/26/19 Petty Joe, FARZANA [facility] [place] [address] [place] [address] Kindergarten Teacher 11/28/21 Training And Development Rep Relationship Specialty Start Date End Date Evelina Shafer MD [address] [place] [address] PCP - General Family Medicine 06/26/19 Petty Joe, FARZANA [facility] [place] [address] [place] [phone] Kindergarten Teacher 04/28/22 Training And Development Rep Relationship Specialty Start Date End Date Evelina Shafer MD [address] [place] [address] PCP - General Family Medicine 06/26/19 Petty Joe RN [facility] [place] [address] [place] [phone] Kindergarten Teacher 04/28/22 Training And Development Rep Relationship Specialty Start Date End Date Evelina hSafer MD [address] [place] [address] PCP - General Family Medicine 06/26/19 Petty Joe RN [facility] [place] [address] [place] [phone] Kindergarten Teacher 04/28/22 Training And Development Rep Relationship Specialty Start Date End Date Evelina Shafer MD [address] [place] [address] PCP - General Family Medicine 06/26/19 Petty Joe RN [facility] [place] [address] [place] [phone] Kindergarten Teacher 04/28/22 Training And Development Rep Relationship Specialty Start Date End Date Evelina Shafer MD [address] [place] [address] PCP - General Family Medicine 06/26/19 Petty Joe, FARZANA [facility] [facility] [place] [address] [place] [address] Kindergarten Teacher 04/28/22 Training And Development Rep Relationship Specialty Start Date End Date Evelina Shafer MD [address] [place] [address] PCP - General Family Medicine 06/26/19 Petty Joe, FARZANA [facility] [place] [address] [place] [address] Kindergarten Teacher 04/28/22 Training And Development Rep Relationship Specialty Start Date End Date Evelina Shafer MD [address] [place] [address] PCP - General Family Medicine 06/26/19 Petty Joe RN [facility] [place] [address] [place] [address] Kindergarten Teacher 04/28/22 Training And Development Rep Relationship Specialty Start Date End Date Evelina Shafer MD [address] [place] [address] PCP - General Family Medicine 06/26/19 Petty Joe, FARZANA [facility] [place] [address] [place] [id number] Kindergarten Teacher 04/28/22 Training And Development Rep Relationship Specialty Start Date End Date Evelina Shafer MD [address] [place] [address] PCP - General Family Medicine 06/26/19 Petty Joe, FARZANA [facility] [place] [address] [place] [id number] Kindergarten Teacher 04/28/22 Team Status: Active Member Role Status Dates Dr. Carmen Garcia MD Family Provider Active Dr. Lenin Hidalgo MD Primary Care Provider Active Team Status: Inactive Member Role Status Dates Dr. Lenin Hidalgo MD Primary Care Provider, Attending P rovider Active Team Status: Inactive Member Role Status Dates Dr. Lenin Hidalgo MD Primary Care Provide r, Attending Provider, Referring Provider Active Training And Development Rep Relationship Specialty Start Date End Date Evelina Shafer MD [address] [place] [address] PCP - General Family Medicine 06/26/19 Petty Joe, FARZANA [facility] [place] [address] [place] [address] Kindergarten Teacher 04/28/22 Training And Development Rep Relationship Specialty Start Date End Date Evelina Shafer MD [address] [place] [address] PCP - General Family Medicine 06/26/19 Petty Joe RN [facility] [place] [address] [place] [address] Kindergarten Teacher 04/28/22 Training And Development Rep Relationship Specialty Start Date End Date Evelina Shafer MD [address] [place] [address] PCP - General Family Medicine 06/26/19 Petty Joe, FARZANA [facility] [place] [address] [place] [address] Kindergarten Teacher 04/28/22 Team Status: Inactive Member Role Status Dates Dr. Lenin Hidalgo MD Primary Care Provider, Referring P rovider Active Asia Qureshi WESTERN PHILOSOPHY PROFESSOR, WESTERN PHILOSOPHY PROFESSOR-C Attending Provider Active Team Status: Inactive Member [...] Dr. Fredrick Dorsey DO Emergency Provider Active Training And Development Rep Relationship Specialty Start Date End Date Lenin Hidalgo MD [address] [place] [address] PCP - General Family Medicine 11/29/23 Training And Development Rep Relationship Specialty Start Date End Date Evelina Shafer MD [address] [facility], [place] [address] PCP - General Family Medicine 06/26/19 11/02/23 Training And Development Rep Relationship Specialty Start Date End Date Evelina Shafer MD [address] [facility] [place] [address] PCP - General Family Medicine 06/26/19 11/02/23 [...] 2025 End: January 18, 2025 Asia Qureshi WESTERN PHILOSOPHY PROFESSOR, WESTERN PHILOSOPHY PROFESSOR-C Attending Provider Active Start: January 18, 2025 [...] 16, 2024 End: October 16, 2024 Dr. Lnein Hidalgo MD Referring Provider Active St art: [...] 2025 End: January 18, 2025 Asia Qureshi WESTERN PHILOSOPHY PROFESSOR, WESTERN PHILOSOPHY PROFESSOR-C Attending Provider Active Start: January 18, 2025 End: January 18, 2025 Team Status: Inactive Member Role/Relationship Status Dates Dr. Lenin Hidalgo MD Primary Care Provider Active Start: January 24, 2025 End: January 24, 2025 Asia Qureshi WESTERN PHILOSOPHY PROFESSOR, WESTERN PHILOSOPHY PROFESSOR-C Attending Provider Active Start: January 24, 2025 End: January 24, 2025 Asia Qureshi WESTERN PHILOSOPHY PROFESSOR, WESTERN PHILOSOPHY PROFESSOR-C Referring Provider Active Start: January 24, 2025 End: January 24, 2025 Team Status: Active Member Role/Relationship Status Dates Dr. Lenin Hidalgo MD Primary Care Provider Active Start: January 24, 2025 Asia Qureshi WESTERN PHILOSOPHY PROFESSOR, WESTERN PHILOSOPHY PROFESSOR-C Referring Provider Active Start: January 24, 2025 Asia Qureshi WESTERN PHILOSOPHY PROFESSOR, WESTERN PHILOSOPHY PROFESSOR-C Other Provider Active Sta rt: January 24, 2025 Dr. Trenton Gerard MD Attending Provider Active S tart: January 24, 2025 Team Status: Active Member Role/Relationship Status Dates Dr. Lenin Hidalgo MD Primary Care Provider Active Start: January 25, 2025 Asia Qureshi WESTERN PHILOSOPHY PROFESSOR, WESTERN PHILOSOPHY PROFESSOR-C Attending Provider Active Start: January 25, 2025 [...] 2025 End: January 18, 2025 Asia Qureshi WESTERN PHILOSOPHY PROFESSOR, WESTERN PHILOSOPHY PROFESSOR-C Attending Provider Active Start: January 18, 2025 End: January 18, 2025 Team Status: Inactive Member Role/Relationship Status Dates Dr. Lenin Hidalgo MD Primary Care Provider Active Start: January 24, 2025 End: January 24, 2025 Asia Qureshi WESTERN PHILOSOPHY PROFESSOR, WESTERN PHILOSOPHY PROFESSOR-C Attending Provider Active Start: January 24, 2025 End: January 24, 2025 Asia Qureshi WESTERN PHILOSOPHY PROFESSOR, WESTERN PHILOSOPHY PROFESSOR-C Referring Provider Active Start: January 24, 2025 End: January 24, 2025 Team Status: Active Member Role/Relationship Status Dates Dr. Lenin Hidalgo MD Primary Care Provider Active Start: January 24, 2025 Asia Qureshi WESTERN PHILOSOPHY PROFESSOR, WESTERN PHILOSOPHY PROFESSOR-C Referring Provider Active Start: January 24, 2025 Asia Qureshi WESTERN PHILOSOPHY PROFESSOR, WESTERN PHILOSOPHY PROFESSOR-C Other Provider Active Sta rt: January 24, 2025 Dr. Trenton Gerard MD Attending Provider Active S tart: January 24, 2025 Team Status: Active Member Role/Relationship Status Dates Dr. Lenin Hidalgo MD Primary Care Provider Active Start: January 25, 2025 Asia Qureshi NP, WESTERN PHILOSOPHY PROFESSOR-C Attending Provider Active Start: January 25, 2025 [...] PELVIS W/O CONTRST 1+ BODY REGNS [facility] [address] [place] [address] [place] [address] Referral ID Status Reason Start Date Expiration Date V isits Requested Visits Authorized [id number] Closed Auto-Generate d Referral 05/18/2022 06/17/2023 1 [...] BE BASED ON THE PRIMARY CLINICAL RECORDS. [facility] [employer] [facility]. provides no warranty or guarantee of the accuracy or completeness of information in this document.
[2025-06-22 17:44] LABS: Albumin, Serum 4.4 g/dL (3.4-4.8); Anion Gap 8 (7-18); BUN 25 mg/dL (4-19); BUN/Creat Ratio 22.3 RATIO (10-20); Calcium,Total 9.5 mg/dL (7.6-11.0); Carbon Dioxide 26.3 mmol/L (20.0-29.0); Chloride 92 mmol/L (96-106); Glucose 147 mg/dL (70-99); Potassium 4.6 mmol/L (3.5-5.1)
== END | disposition home or self-care (01) ==
LOC: MTLAB 16:13
PROVIDERS: PCP Family Medicine; Referring Provider Family Medicine; Visit Provider Family Medicine
DX: F41.9 Anxiety disorder, unspecified (principal)
CPT/HCPCS: 36415; 80069